=== PATIENT | male | born 1945 | race Caucasian/White ===

== ENCOUNTER 2023-01-20 12:01 | Outpatient (OUT) | payer MEDICARE, OTHER, SELFPAY ==
[2023-01-20 12:29] LABS: Hematocrit 40.7 % (42.0-54.0); Hemoglobin 13.1 g/dL (14.0-18.0); Mean Corpuscular HGB Conc 32.2 g/dL (29.9-35.2); Mean Corpuscular Hemoglobin 30.1 pg (25.9-34.0); Mean Corpuscular Volume 93.6 fL (80.0-94.0); Mean Platelet Volume 11.1 fL (9.5-13.5); Platelet Count 146 10^3/uL (150-450); Red Blood Count 4.35 10^6/uL (4.70-6.10); Red Cell Distribution Width 13.5 % (11.0-15.0); White Blood Count 4.4 10^3/uL (4.0-11.0)
[2023-01-20 13:06] LABS: Creatinine Urine Random 62.87 mg/dL (20.00-300.00); Protein Creatinine Ratio Urine 0.12; Total Protein Urine Random 7.7 mg/dL (<=11.9)
[2023-01-20 13:33] LABS: Alanine Aminotransferase 33 U/L (16-63); Albumin Globulin Ratio 1.1; Albumin Level 3.9 g/dL (3.4-5.0); Alkaline Phosphatase 86 U/L (46-116); Anion Gap 8.4; Aspartate Amino Transferase 20 U/L (15-37); BUN Creatinine Ratio 21.8; Bilirubin Total 0.5 mg/dL (0.2-1.0); Calcium 9.6 mg/dL (8.5-10.1); Carbon Dioxide 29.9 mmol/L (21.0-32.0); Chloride 103 mmol/L (98-107); Estimated GFR (African America >60 (>=60); Estimated GFR (Non-African Ame 57 (>=60); Globulin 3.7 g/dL; Glucose 166 mg/dL (74-106); Magnesium 2.2 mg/dL (1.8-2.4); Phosphorus 3.7 mg/dL (2.6-4.7); Potassium 4.3 mmol/L (3.5-5.1); Sodium 137 mmol/L (136-145); Total Protein 7.6 g/dL (6.4-8.2); Uric Acid 6.7 mg/dL (3.5-7.2)
[2023-01-20 13:34] LABS: Percent Iron Saturation 34.7 %
[2023-01-20 14:14] LABS: Bilirubin Urine NEGATIVE (NEGATIVE); Blood Urine NEGATIVE (NEGATIVE); Clarity Urine CLEAR (CLEAR); Color Urine YELLOW (YELLOW); Glucose Urine UA NEGATIVE (NEGATIVE); Ketones Urine NEGATIVE (NEGATIVE); Leukocyte Esterase Urine NEGATIVE (NEGATIVE); Nitrite Urine NEGATIVE (NEGATIVE); Protein Urine NEGATIVE (NEG/TRACE); Urobilinogen Urine 0.2 EU/dL (0.2-1.0); pH Urine 5.5 (5.0-9.0)
[2023-01-21 10:10] LABS: PTH, Intact 46 pg/mL (15-65)
== END 2023-01-20 12:02 | disposition home or self-care (01) ==
LOC: LAB 12:04
PROVIDERS: PCP Family Medicine; Visit Provider Internal Medicine Nephrology
DX: D64.9 Anemia, unspecified (principal); N18.31 Chronic kidney disease, stage 3a; N17.9 Acute kidney failure, unspecified
CPT/HCPCS: 36415; 80053; 81003; 82306; 82570; 82607; 82728; 82746; 83540; 83550; 83735; 83970; 84100; 84156; 84550; 85027

== ENCOUNTER 2023-02-27 13:50 | Outpatient (OUT) | payer MEDICARE, OTHER, SELFPAY ==
--- NOTE | 2023-02-27 14:32 | CA_ITS ---
Patient: IGNACIO REYNOLDS Exam Date: 02/27/2023 : 1945 Gender:M Ordering : RUTH URRUTIA MD Admission #: [id number] Family : DR ELLIOT ROSALES M.D. Order #: [id number] CLICK HERE TO VIEW EXAM ECHOCARDIOGRAM REPORT PROCEDURE: CA ECHO DOPPLER COMPLETE INDICATIONS: Atrial fibrillation, CABGx3, AICD, hypertension, former smoker COMPARISON: None. DESCRIPTION: COMPLETE ECHOCARDIOGRAM Real-time transthoracic echocardiography with 2D, M-mode, spectral and color flow Doppler performed. QUALITY: Technical quality was good. LEFT VENTRICLE: Normal chamber size. Moderate to severe concentric left ventricular hypertrophy. Ventricular septum is severely thickened (2.7cm). Systolic function appears normal. LV EF: Normal left ventricular ejection fraction, (55%). DIASTOLIC: Diastolic function is indeterminate. ATRIAL SEPTUM: Visually appears intact. LEFT ATRIUM: Moderate dilatation. RIGHT ATRIUM: Mild dilatation. RIGHT VENTRICLE: Normal chamber size. Systolic function appears normal. Pacer wire present. TRICUSPID VALVE: Normal mobility and thickness. No stenosis with mild to moderate regurgitation. No evidence of pulmonary hypertension. RVSP 26 mmHg MITRAL VALVE: Normal mobility and thickness. No evidence of mitral valve stenosis. Mild mitral annular calcification. Mild mitral regurgitation. AORTIC VALVE: Normal trileaflet appearance. No visible sclerosis. Normal leaflet mobility. No evidence of aortic valve stenosis. Mild aortic regurgitation. AORTIC ROOT: Normal diameter and appearance. PULMONIC VALVE: Normal thickness and mobility. No stenosis. Mild regurgitation. PERICARDIUM: No evidence of pericardial effusion. IVC: Collapses with inspirations. PLEURA: CONCLUSION: 1. The left ventricle exhibits moderate to severe concentric hypertrophy with severely thickened septum [2.7 cm]. Systolic function appears preserved with an ejection fraction of 55%. 2. The right ventricle is normal in size and systolic function. 3. Mild mitral aortic and pulmonic regurgitation. 4. Mild to moderate tricuspid regurgitation. 5. Normal right-sided pressures. 6. Cardiac phenotype is suggestive of possible infiltrative myocardial disease versus hypertrophic cardiomyopathy. Adult Echocardiography Procedure Report Left Ventricle LVEDD (3.7 - 5.6 cm): 4.19 cm LVESD (2.2 - 4.0 cm): 3.36 cm LVIVS thickness (0.6 - 1.2 cm): 2.66 cm LVPW thickness (0.5 - 1.0 cm): 1.31 cm e': 0.06 m/s E - e': 7.34 LVOT Max Gradient: 1.29 mm[Hg] LVOT Area (cm2): 0.57 m/s Peak Velocity (LVOT): 0.57 m/s LVOT Diameter 2.42 cm Left Atrium LA Volume Index (2D A2C): 46.49 ml/m2 Left Atrium Systolic Dimension: 4.50 cm Mitral Valve MV E to A Ratio: 0.61 Mitral Valve A-Wave Peak Velocity: 0.74 m/s Mitral Valve E-Wave Peak Velocity: 0.45 m/s Right Ventricle Aorta AO Root Diam: 3.91 cm Ascending Ao Diam: 3.19 cm Aortic Valve AoV Area (Peak Slava): 2.73 cm2, 2.73 cm2 Peak Velocity(Antegrade Flow): 0.95 m/s Peak Gradient(Antegrade Flow): 3.62 mm[Hg] Mean Velocity(Antegrade Flow): 0.60 m/s Mean Gradient(Antegrade Flow): 1.76 mm[Hg] Velocity Time Integral: 18.70 cm Tricuspid Valve Peak Velocity (Regurgitant Flow): 2.38 m/s, 1.84 m/s, 2.39 m/s Pulmonic Valve Mean Gradient: 2.26 mm[Hg] Mean Velocity: 0.71 m/s Peak Velocity: 1.02 m/s, 0.94 m/s Peak Gradient: 3.50 mm[Hg], 4.17 mm[Hg] Right Atrium Dictated by: Mykel Hood M.D. on 02/27/2023 at 17:55 Approved by: Mykel Hood M.D. on 02/27/2023 at 18:01
== END 2023-02-27 13:51 | disposition home or self-care (01) ==
LOC: CARD 13:50
PROVIDERS: PCP Family Medicine; Visit Provider Family Medicine
DX: I48.91 Unspecified atrial fibrillation (principal); I08.3 Combined rheumatic disorders of mitral, aortic and tricuspid valves
CPT/HCPCS: 93306

== ENCOUNTER 2023-04-15 08:34 | Outpatient (OUT) | payer MEDICARE, OTHER, SELFPAY ==
[2023-04-15 08:57] LABS: Hemoglobin 12.4 g/dL (14.0-18.0)
--- NOTE | 2023-04-15 09:42 | RT_ITS ---
The [facility] [place] Test Date: 2023-04-15 Pat Name: IGNACIO REYNOLDS Department: Room: - Gender: Male Blood Bank Laboratory Professional: Oscar Giraldo RRT : 1945 Requested By: [id number] Order Number: [id number] Reading MD: Yao Polanco Interpretive Statements Pulmonary function testing was completed according to ATS criteria. Findings were considered accurate and reproducible. Both pre- and post-bronchodilator values utilized for spirometry. Due to software limitations, no prior studies (if performed previously) are currently available for comparison. Spirometry (based on pre-bronchodilator values): -FEV1/FVC: Normal @ 75% -FEV1: Moderately reduced @ 66% -FVC: Moderately reduced @ 64% -There is no significant bronchodilator response. Lung volumes by plethysmography (based on pre-bronchodilator values): -RV: Reduced @ 79% -TLC: Moderately reduced @ 68% Diffusion capacity: -DLCO: Severe reduction @ 48% when corrected for Hb 12.4g/dL Flow-volume loop: -Moderate restrictive pattern Impressions: -Spirometry is non-diagnostic, though trends towards restriction - restriction is confirmed due to a moderately decreased TLC. There is a severely reduced diffusion capacity. This pattern can be seen in, but not restricted to, cardiopulmonary vascular disorders and interstitial lung disease. 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 Clinical correlation required. Electronically Signed On 04-16-2023 15:37:38 EDT by Yao Polanco
[2023-04-15] MEDS: ALBUTEROL SULFATE 2.5 MG/3 ML VIAL NEB IH (09:44)
[2023-04-15 09:59] LABS: Alanine Aminotransferase 22 U/L (16-63); Albumin Level 3.4 g/dL (3.4-5.0); Alkaline Phosphatase 94 U/L (46-116); Anion Gap 11.4; Aspartate Amino Transferase 16 U/L (15-37); BUN Creatinine Ratio 20.2; Bilirubin Total 0.4 mg/dL (0.2-1.0); Calcium 8.9 mg/dL (8.5-10.1); Carbon Dioxide 29.9 mmol/L (21.0-32.0); Chloride 108 mmol/L (98-107); Chol HDL Ratio 3.1; Cholesterol 133 mg/dL (<=200); Estimated GFR (African America >60 (>=60); Estimated GFR (Non-African Ame 57 (>=60); Globulin 3.5 g/dL; Glucose 152 mg/dL (74-106); HDL Cholesterol 43 mg/dL (40-60); Potassium 4.3 mmol/L (3.5-5.1); Sodium 145 mmol/L (136-145); Thyroid Stimulating Hormone 1.149 uIU/mL (0.358-3.740); Total Protein 6.9 g/dL (6.4-8.2); Triglycerides 171 mg/dL (<=150); VLDL CHOLESTEROL 34.2 mg/dL
--- NOTE | 2023-04-15 10:13 | XR_ITS ---
The [address] [address] Patient Name: IGNACIO REYNOLDS MRN: [id number] date: 1945 Sex: M Assigned Patient Location: CARD Current Patient Location: Accession/Order Number: [id number] Exam Date: 04/15/2023 10:20 Report Date: 04/16/2023 08:24 At the request of: RAINE DOLL Procedure: XR chest 2V EXAM: CHEST 2 VIEWS HISTORY: Bradder Use OF Amiodarone Z79.899 TECHNIQUE: PA and lateral views chest. COMPARISON: 05/22/2022. FINDINGS: No findings of pulmonary fibrosis. There is no focal lung consolidation, pleural effusion or pneumothorax. Pulmonary vasculature is within normal limits. There is mild cardiomegaly. Coronary artery bypass grafting changes and left pectoral cardiac pacemaker/defibrillator device noted. There are degenerative changes of the shoulders and spine. XR/XR chest 2V IMPRESSION: 1. No acute cardiopulmonary disease. 2. Stable cardiomegaly with coronary artery bypass grafting changes and cardiac pacemaker/defibrillator. Electronically authenticated by: AL BRAR Date: 04/16/2023 08:24
[2023-04-15 11:41] LABS: Free T4 1.06 ng/dL (0.76-1.46)
== END 2023-04-15 08:35 | disposition home or self-care (01) ==
LOC: CARD 08:35
PROVIDERS: PCP Family Medicine; Visit Provider Nurse Practitioner Acute Care
DX: Z79.899 Other long term (current) drug therapy (principal); I48.0 Paroxysmal atrial fibrillation; I25.10 Atherosclerotic heart disease of native coronary artery without angina pectoris; I51.7 Cardiomegaly; Z95.1 Presence of aortocoronary bypass graft; Z95.810 Presence of automatic (implantable) cardiac defibrillator
CPT/HCPCS: 36415; 71046; 80053; 80061; 84439; 84443; 85018; 94060; 94726; 94729

== ENCOUNTER 2023-04-17 08:00 | Outpatient (OUT) | payer MEDICARE, OTHER, SELFPAY ==
[2023-04-17] MEDS: COVID VAC 23-24(12UP)MODERNA/PF 50 MCG/0.5 ML VIAL IM (15:00)
== END 2023-04-17 08:01 | disposition home or self-care (01) ==
LOC: VACCLI 06-06 09:04
PROVIDERS: PCP Family Medicine; Visit Provider Family Medicine
DX: Z23 Encounter for immunization (principal)
CPT/HCPCS: 90480; 91322

== ENCOUNTER 2023-05-09 13:50 | Emergency (ER) | payer MEDICARE, OTHER, SELFPAY ==
[2023-05-09 13:54] VITALS: BP 131/78; PULSE 58; RESP 16; O2SAT 96; BMI 27.8
--- NOTE | 2023-05-09 14:01 | XR_ITS ---
The [place] [id number] Patient Name: IGNACIO REYNOLDS MRN: [id number] date: 1945 Sex: M Assigned Patient Location: ER Current Patient Location: ED.MAIN Accession/Order Number: [id number] Exam Date: 05/09/2023 14:06 Report Date: 05/09/2023 15:00 At the request of: ABIGAIL ROWAN Procedure: XR finger LT min 2V EXAM: XR finger LT min 2V TECHNIQUE: AP, lateral and oblique views left thumb HISTORY: Left thumb COMPARISON: None. FINDINGS: There is 3.5 mm deep traumatic defect of the tip of the tuft of the first distal phalanx. Overlying soft tissue injury. No radiopaque foreign body. XR/XR finger LT min 2V IMPRESSION: Traumatic defect to the central portion of the tip of the tuft of the first distal phalanx. Electronically authenticated by: KOREY VROA Date: 05/09/2023 15:00
--- NOTE | 2023-05-09 14:01 | ED.UPPEXIN1 ---
HPI - Extremity Injury (Upper) General Chief Complaint: Extremity Injury, Upper Stated Complaint: UPPER EXTREMITY INJURY LEFT THUMB Time Seen by Provider: 05/09/23 13:52 Source: patient Mode of arrival: walk-in History of Present Illness HPI narrative: patient is a 77-year-old male who presents to the emergency department for the evaluation of a laceration to the left thumb that occurred at home, patient states he accidentally cut himself with a table saw. He is on Eliquis and baby aspirin daily. Unknown last tetanus. He is right-hand dominant. No other associated injuries. No medications taken prior to arrival. Related Data Previous Rx's Medication Instructions Recorded cephalexin 500 mg capsule 500 mg PO Q8H 10 days #30 caps 05/09/23 hydrocodone 5 mg-acetaminophen 325 1 tab PO Q6H PRN pain #10 tabs 05/09/23 mg tablet Allergies Allergy/AdvReac Type Severity Reaction Status Date / Time Influenza Virus Vaccines Allergy Severe Verified 05/09/23 14:00 Review of Systems ROS Constitutional Denies: fever or chills Ears, nose, mouth, and throat Denies: throat pain Cardiovascular Denies: chest pain Respiratory Denies: shortness of breath or cough Gastrointestinal Denies: nausea or vomiting Musculoskeletal Reports: extremity pain; Denies: back pain, neck pain or extremity swelling Integumentary/Breast Denies: rash Hematologic/Lymphatic Reports: easy bruising and easy bleeding Exam Narrative Exam Narrative: Gen.: Awake, alert, in no distress Head: Normocephalic, atraumatic ENT: Moist mucous membranes Respiratory: No respiratory distress Extremities: 2 cm laceration to the fat pad of the distal phalanx at the distal tip of the finger, laceration is well aligned, no active bleeding. Normal flexion and extension at the IP joint of the left thumb. Small laceration to the distal tip of the fingernail that does not extend through the proximal nail or cuticle Psych: Normal mood and affect Neuro: No focal neuro deficit Skin: Warm, dry Constitutional Vital Signs, click to edit/add: Last Vital Signs Pulse 58 L 05/09/23 13:54 Resp 16 05/09/23 13:54 BP 131/78 05/09/23 13:54 Pulse Ox 96 05/09/23 13:54 O2 Del Method Room Air 05/09/23 13:54 Course Vital Signs Vital signs: Vital Signs Pulse Rate 58 L 05/09/23 13:54 Respiratory Rate 16 05/09/23 13:54 Blood Pressure 131/78 05/09/23 13:54 Pulse Oximetry 96 05/09/23 13:54 Oxygen Delivery Method Room Air 05/09/23 13:54 Pulse Rate 58 L 05/09/23 13:54 Respiratory Rate 16 05/09/23 13:54 Blood Pressure 131/78 05/09/23 13:54 Pulse Oximetry 96 05/09/23 13:54 Oxygen Delivery Method Room Air 05/09/23 13:54 MDM - Extremity Injury (Upper) MDM Narrative Medical decision making narrative: x-rays of the finger show that the patient did break the cortex of the distal phalanx with a table saw although there is no large fracture or displacement of the bones. Laceration was repaired without difficulty. Please see procedure note for details. Sutures removed in 8-10 days with PCP. Patient is neurovascularly intact at discharge. As there is bone involvement, patient will be placed on antibiotics for the next ten days. Return to the Emergency Room if symptoms change or worsen. Laceration repair: Done under sterile conditions. The use of Shur-Clens prep the area. digital block with lidocaine 1% was used, approximately 5 cc. The wound was irrigated copiously with normal saline. The wound was explored there was no evidence of foreign material. The laceration was approximated with 4-0 nylon. 3 simple interrupted sutures were placed. Patient tolerated the procedure well. The patient was neurovascularly intact post. the patient had bacitracin applied to the laceration and a dry sterile dressing was place. The patient will need to follow-up in the next 8-10 days for removal Medical Records Attestation: I reviewed the patient's medical records. Lab Data Attestation: I reviewed the patient's lab results. Imaging Data XR finger: Attestation: I personally reviewed and interpreted this imaging study as follows: My impression: fracture of the distal cortex, no displacement with normal alignment Discharge Plan Discharge Chief Complaint: Extremity Injury, Upper Clinical Impression: Open fracture of distal phalanx of left thumb, Laceration of left thumb Patient Disposition: Home, Self-Care Time of Disposition Decision: 14:44 Condition: Good Prescriptions / Home Meds: New hydrocodone-acetaminophen 5-325 mg tablet 1 tab PO Q6H PRN (Reason: pain) Qty: 10 0RF Rx Instructions: DX: M79.645 cephalexin 500 mg capsule 500 mg PO Q8H 10 Days Qty: 30 0RF Instructions: Finger Fracture (ED), Finger Laceration (ED) Additional Instructions: Sutures removed in 8-[address] Peters Stand Alone Forms: Portal Instructions Referrals: Karina Peters MD [Primary Care Provider] - 1 week Discharge Date/Time: 05/09/23 15:05
[2023-05-09] MEDS: LIDOCAINE HCL 1% 100 MG/10 ML MDV INJ (14:53)
[2023-05-09] MEDS: BACITRACIN 0.9 GM PACKET 1 PACKET TOPICAL (14:53)
[2023-05-09] MEDS: ADACEL DIPH,PERTUSS(ACELL),TET VAC/PF 0.5 ML ADULT SYRINGE IM (14:54)
== END 2023-05-09 15:05 | disposition home or self-care (01) ==
PROVIDERS: Emergency Provider Emergency Medicine; PCP Family Medicine
DX: S62.522B Displaced fracture of distal phalanx of left thumb, initial encounter for open fracture (principal); Z23 Encounter for immunization; W27.0XXA Contact with workbench tool, initial encounter
CPT/HCPCS: 12001; 73140; 90471; 90715; 99284

== ENCOUNTER 2023-07-07 14:36 | Outpatient (OUT) | payer MEDICARE, OTHER, SELFPAY ==
--- OUTSIDE RECORDS SUMMARY | 2023-07-07 14:41 | XMS_ITS | CCD ---
Author Name Unknown Address [address] [place] [address] Organization [facility] Care Team Providers Care Oxyhydrogen Welder Name Role Phone ELLIOT ROSALES Primary Care Physician [phone] Elliot Rosales MD Primary Care Provider Christiane Olson Attending Unavailable UNKNOWN, PROVIDER Admitting Unavailable ELLIOT ROSALES Referring Unavailable ELLIOT ROSALES Primary Care Unavailable Jenifer Jensen Unavailable Elliot Rosales Unavailable DR ELLIOT ROSALES Primary Care Unavailable ELTAHAWY, EHAB Admitting Unavailable ELTAHAWY, EHAB Attending Unavailable ELTAHAWY, EHAB Consulting Unavailable DR ELLIOT ROSALES Consulting Unavailable DR ELLIOT ROSALES Primary Care Unavailable ELTAHAWY, EHAB Admitting Unavailable ELTAHAWY, EHAB Attending Unavailable ELTAHAWY, EHAB Consulting Unavailable DR ELLIOT ROSALES Primary Care Unavailable MISC, DR BROWN Attending Unavailable MISC, DR BROWN Consulting Unavailable MISC, DR BROWN Admitting Unavailable IGNACIO JACKSON Unavailable RUDY, PHYLLIS Attending Unavailable RUDYZHANGPHYLLIS Consulting Unavailable RUDY, PHYLLIS Admitting Unavailable DR ELLIOT ROSALES Primary Care Unavailable DR ELLIOT ROSALES Primary Care Unavailable ELTAHAWY, EHAB Attending Unavailable ELTAHAWY, EHAB Consulting Unavailable ELTAHAWY, EHAB Admitting Unavailable DR MAGALIS CHA Consulting Unavailable DR ELLIOT ROSALES Primary Care Unavailable ELTAHAWY, EHAB Admitting Unavailable ELTAHAWY, EHAB Attending Unavailable ELTAHAWY, EHAB Consulting Unavailable DR ELLIOT ROSALES Primary Care Unavailable ELTAHAWY, EHAB Admitting Unavailable ELTAHAWY, EHAB Attending Unavailable ELTAHAWY, EHAB Consulting Unavailable DR ELLIOT ROSALES Primary Care Unavailable BAKHOUS, AZIZ Attending Unavailable BAKHOUS, AZIZ Consulting Unavailable BAKPAMS, AZIZ Admitting Unavailable DR ELLIOT ROSALES Primary Care Unavailable YANIRA, DR CRISTIANO Husain Attending Unavailable YANIRA, DR CRISTIANO Husain Consulting Unavailable DR CRISTIANO DOYLE Admitting Unavailable DR ELLIOT ROSALES Primary Care Unavailable ELTAHAWY, EHAB Admitting Unavailable ELTAHAWY, EHAB Attending Unavailable ELTAHAWY, EHAB Consulting Unavailable Elliot Rosales MD Primary Care Provider [phone] Ema DOYLE Referring Unavailable Ema DOYLE Attending Unavailable ELLIOT ROSALES Primary Care Unavailable MD Yung Yang Attending Provider MD Elliot Rosales Primary Care Provider [phone] Elliot Rosales Primary Care Unavailable Asaad, Imad Attending Unavailable Asaad, Imad Admitting Unavailable Lue, Patience MTj Attending Unavailable Lue, Patience MTj Attending Unavailable Lue Patience MTj Attending Unavailable Lue, Patience M. Referring Unavailable Lue, Patience M. Attending Unavailable Lue, Patience M. Admitting Unavailable Lue, Patience M. Referring Unavailable Lue, Patience M. Attending Unavailable ANTOINETTE KEYS Attending Unavailable RUTH URRUTIA Referring Unavailable RUTH URRUTIA Attending Unavailable ELTAHAWY, EHAB Attending Unavailable PHYLLIS GRANT Attending Unavailable RUTH URRUTIA Referring Unavailable Allergies Allergy Classification Reported Allergen(s) Allergy Type Date of Onset Reaction(s) Facility (9 sources) flu vaccines; Translations: [flu vaccines] Allergy to substance 03-25-20 13 Unknown [facility] (4 sources) Influenza Virus Vaccine Tv Split 2011-05 (60 Yr +); Translations: [INFLUENZA VIRUS VACCINE TV SPLIT 2011-05 (60 YR +)] Drug Intolerance 10-05-19 15 Intolerance [facility] (1 source) flu virus vaccine tv 2014- (18 yr and up),recomb Drug allergy (disorder) 04-11-20 16 [facility] (7 sources) Influenza Vac A&B Surf Ant Adj Drug allergy rash, vomiting [facility] Other (1 source) Flu Vaccine tvs 2010-(65yr+) Drug allergy (disorder) 03-26-20 13 [facility] (1 source) Influenza Virus Vaccines Drug allergy (disorder) 12-14-19 [facility]ository (1 source) No Known Medication Allergies; Translations: [No Known Medication Allergies] Propensity to adverse reactions (disorder) [facility] Repository Medications Current Medications Medication Drug Class(es) Dates Sig (Normalized) Sig (Original) acetaminophen 500 mg oral tablet (15 sources) Start: 12-13-2022 take 500 mg by mouth every six hours Acetaminophen Active 500 MG PO Q6H December 13, 2022 12:00am Start: 03-14-2021 take 1 mg by mouth e very six hours Tylenol Extra Strength 500 mg oral tablet mg tab(s), Oral, q6hr, Refills(s) 0 Start Date: 03/14/21 Status: Ordered take 2 tablets by mo uth every eight hours Acetaminophen ER 650 MG 2 tablets as needed Orally every 8 hrs Active take 2 tablets by mo uth every eight hours as needed Acetaminophen ER 650 MG 2 tablets as needed Orally every 8 hrs Active take 2 tablets by mo uth every six hours as needed acetaminophen (TYLENOL) 325 mg tablet Take 650 mg by mouth every 6 hours as needed. 0 Active Comment on above: Take 650 mg by mouth every 6 hours as needed. Antiox.Mv [id number] a (I-Caps) 280-10-2 mg Capsule (1 source) Start: 12-13-2022 take 1 capsule by mouth once daily Antiox.Mv [id number] Libby (I-Caps) 280-10-2 mg Capsule Active 1 CAP PO Daily December 13, 2022 12:00am apixaban 5 mg oral tablet (13 sources) Factor Xa Inhibitor Start: 06-05-2022 take 1 mg by mouth twice daily Eliquis 5 mg oral tablet mg tab(s), Oral, BID, Refills(s) 0 Start Date: 06/05/22 Status: Ordered take 1 tablet by mouth every twe lve hours Eliquis 2.5 MG 1 tablet Orally Twice a day Active Comment on above: Take by mouth twice daily. aspirin 81 mg delayed release oral tablet (19 sources) Platelet Aggregation Inhibitor, Nonsteroidal Anti-inflammatory Drug Start: 12-13-2022 take 1 tablet by mouth once daily Aspirin (Aspir-81) 81 mg Tablet,Delayed Release (Dr/Ec) Active 81 MG PO Daily December 13, 2022 12:00am Start: 03-14-2021 take 1 mg by mouth e very four hours aspirin 81 mg oral capsule mg cap(s), Oral, q4hr, Refills(s) 0 Start Date: 03/14/21 Status: Ordered Comment on above: Take 81 mg by mouth once daily. atorvastatin 80 mg oral tablet (19 sources) HMG-CoA Reductase Inhibitor Start: 03-14-20 take 1 mg by mouth once daily Lipitor 80 mg Tab mg tab(s), Oral, Daily, Refills(s) 0 Start Date: 03/14/21 Status: Ordered Comment on above: Take 80 mg by mouth once daily. atropine sulfate 0.025 mg / diphenoxylate hydrochloride 2.5 mg oral tablet (8 sources) Anticholinergic, Cholinergic Muscarinic Antagonist, Antidiarrheal Start: 08-28-19 take 1 tablet by mouth every six hours Lomotil 2.5-0.025 MG 1 tablet as needed Orally Four times a day for 10 days Aug, Active Comment on above: Take 1 tablet by andrey four times daily as needed. Centrum Silver (8 sources) Start: 03-14-20 Centrum Silver Oral, Daily, Refill(s) 0 Start Date: 03/14/21 Status: Ordered cephalexin 500 mg oral capsule (3 sources) Cephalosporin Antibacterial Start: 09-20-19 take 1 capsule by mouth once daily Keflex 500 mg Cap 500 mg = 1 cap(s), Oral, Daily, Start 1 day prior to procedure, # 2 cap(s), Refills(s) 0, Pharmacy: [id number], 180, cm, 09/19/21 9:42:00 EDT, Height/Length Dosing, 86, kg, 09/19/21 9:42:00 EDT, Weight Dosing Start Date: 09/19/21 Status: Ordered diazePAM 10 mg oral tablet (1 source) Benzodiazepine Start: 02-13-20 Valium 10 mg Tab 10 mg = 1 tab(s), Oral, Once, PRN for anxiety, take 1 hour prior to scheduled procedure, # 1 tab(s), Refills(s) 0, Pharmacy: [id number], 180, cm, 12/04/22 9:13:00 EDT, Height/Length Dosing, 88, kg, 12/04/22 9:13:00 EDT, Weight Dosing Start Date: 02/12/23 Status: Ordered furosemide 20 mg oral tablet (19 sources) Loop Diuretic Start: 06-05-20 take 1 mg by mouth once daily furosemide 20 mg Tab mg tab(s), Oral, Daily, Refills(s) 0 Start Date: 06/05/22 Status: Ordered take 10 mg by mouth once daily f urosemide (LASIX) 20 mg tablet Take 10 mg by mouth once daily. 0 Active take 1 tablet by andrey th every twenty-four hours Furosemide 40 MG 1 tablet Orally Once a day Active Comment on above: Take 10 mg by mouth once daily. ICaps Areds 2 (8 sources) ICaps Areds 2 Active ICaps with Lutein and Zeaxan oral tablet (4 sources) Start: 03-14-2021 ICaps with Lutein and Zeaxan oral tablet Oral, Daily, Refill(s) 0 Start Date: 03/14/21 Status: Ordered melatonin 10 mg oral tablet (10 sources) Start: 12-13-2022 take 10 mg by mouth at bedtime Melatonin Active 10 MG PO Bedtime December 13, 2022 12:00am take 2 capsules by m outh every twenty-four hours Melatonin 10 MG 2 tablets Orally Once a day Active take 2 tablets by mouth once stalin ly Melatonin 10 MG 2 tablets Orally Once a day Active melatonin 10 mg tab Take by mouth daily at bedtime. 0 Active take 2 tablets by mouth once stalin ly Melatonin 5 MG 2 tablets Orally Once a day Active Comment on above: Take by mouth daily at bedtime. 24 hr metoprolol succinate 50 mg extended release oral tablet (19 sources) beta-Adrenergic Ash Start: 03-14-2021 take 1 mg by mouth once daily Toprol XL 50 mg Tab-ER mg tab(s), Oral, Daily, Refills(s) 0 Start Date: 03/14/21 Status: Ordered Comment on above: Take 50 mg by mouth once daily. 24 hr mirabegron 25 mg extended release oral tablet (17 sources) beta3-Adrenergic Agonist Start: 09-19-2021 End: 07-03-2023 take 1 tablet by mouth once daily Myrbetriq 25 mg oral tablet, extended release 25 mg = 1 tab(s), Oral, Daily, X 90 day(s), # 90 tab(s), Refills(s) 3, Pharmacy: [id number], 180, cm, 06/05/22 9:31:00 EST, Height/Length Dosing, 87, kg, 06/05/22 9:31:00 EST, Weight Dosing Start Date: 07/08/22 Stop Date: 07/03/23 Status: Ordered Comment on above: Take 25 mg by mouth once daily. Multivitamin preparation (8 sources) take 1 tablet by mouth once daily Multi Vitamin - 1 tablet Orally Once a day Active Multivitamin-Minerals- Lutein (Centrum Silver) Tablet (1 source) Start: 12-13-2022 take 1 tablet by mouth once daily Multivitamin-[place] als-Lutein (Centrum Silver) Tablet Active 1 TAB PO Daily December 13, 2022 12:00am potassium chloride 10 meq extended release oral capsule (9 sources) take 1 capsule by mouth every twenty-four hours Potassium Chloride ER 10 MEQ 1 tablet with food Orally Once a day Active potassium chlori de SR (MICRO-K) 10 mEq CR capsule Take 10 mEq by mouth twice daily. 0 Active take 1 tablet by andrey th every twenty-four hours Potassium Chloride ER 20 MEQ 1 tablet wi th food Orally Once a day Active Comment on above: Take 10 mEq by mouth twice daily. Slow Release Iron 160 (50 Fe) MG (2 sources) take 1 tablet by mouth once daily Slow Release Iron 160 (50 Fe) MG 1 tablet Orally Once a day Active tamsulosin hydrochloride 0.4 mg oral capsule (19 sources) alpha-Adrenergic Ash Start: 04-16-2023 take 1 capsule by mouth once daily Flomax 0.4 mg Cap 0.4 mg = 1 cap(s), Oral, Daily, # 90 cap(s), Refills(s) 3, Pharmacy: [id number], 180, cm, 04/16/23 9:44:00 EDT, Height/Length Dosing, 88, kg, 04/16/23 9:44:00 EDT, Weight Dosing Start Date: 04/16/23 Status: Ordered Start: 03-14-2021 take 0.4 mg by mouth once aviva y Tamsulosin Active 0.4 MG PO Daily December 13, 2022 12:00am Comment on above: Take 0.4 mg by mouth once daily. Turmeric extract (5 sources) Start: 03-14-2021 take 1 mg by mouth once daily Turmeric mg, Oral, Daily, Refill(s) 0 Start Date: 03/14/21 Status: Ordered Urinozinc Prostate Health Complex Classic (8 sources) Start: 03-14-2021 Urinozinc Prostate Health Complex Classic Oral, Daily, Refill(s) 0 Start Date: 03/14/21 Status: Ordered Completed/Discontinued Medications Medication Drug Class(es) Dates Sig (Normalized) Sig (Original) amiodarone hydrochloride 200 mg oral tablet (6 sources) Antiarrhythmic take 0.5 tablet by mouth once daily Amiodarone HCl 200 MG 1/2 tablet Orally Once a day Not-Taking MULTIVITAMIN ORAL (2 sources) MULTIVITAMIN ORA L Take by mouth. 0 Active Comment on above: Take by mouth. pantoprazole 20 mg delayed release oral tablet (6 sources) Proton Pump Inhibitor take 1 tablet by mouth every twenty-four hours Pantoprazole Sodium 20 MG 1 tablet Orally Once a day Not-Taking VIT C/VIT E/LUTEIN/MIN/OMEGA-3 (OCUVITE ORAL) (2 sources) VIT C/VIT E/LUTEIN/MIN/OMEGA- 3 (OCUVITE ORAL) Take by mouth. 0 Active Comment on above: Take by mouth. Problems Active Problems Problem Classification Problem Date Documented Da te Episodic/Chronic Acute and unspecified renal failure (8 sources) Acute kidney failure, unspecified; Translations: [ACUTE KIDNEY FAILURE UNSPECIFIED] Onset: 05-02-2022 Episodic Acute myocardial infarction (13 sources) Myocardial infarction 03-14-2021 Chronic Cancer of prostate (8 sources) Malignant tumor of prostate 03-14-2021 Chronic Cancer of prostate (20 sources) Personal history of malignant neoplasm of prostate; Translations: [History of malignant neoplasm of prostate] Onset: 10-04-2015 Episodic Cardiac dysrhythmias (4 sources) Paroxysmal atrial fibrillation; Translations: [PAROXYSMAL ATRIAL FIBRILLATION] Onset: 05-22-2022 Chronic Chronic kidney disease (7 sources) Chronic kidney disease stage 3A ; Translations: [Chronic kidney disease, stage 3a] Chronic Conduction disorders (4 sources) Encounter for adjustment and management of automatic implantable cardiac defibrillator; Translations: [Presence of automatic (implantable) cardiac defibrillator] Onset: 12-20-2022 Chronic Coronary atherosclerosis and other heart disease (12 sources) Atherosclerotic heart disease of [place] coronary artery without angina pectoris; Translations: [Coronary atherosclerosis due to lipid rich plaque] Onset: 03-04-2022 Chronic Coronary atherosclerosis and other heart disease (2 sources) Presence of aortocoronary bypass graft Episodic Deficiency and other anemia (8 sources) Anemia 03-14-2021 Episodic Deficiency and other anemia (2 sources) Anemia, unspecified Episodic Disorders of lipid metabolism (2 sources) Mixed hyperlipidemia; Translations: [Mixed hyperlipidemia] Onset: 03-04-2022 Chronic Essential hypertension (2 sources) Essential (primary) hypertension; Translations: [Essential (primary) hypertension] Onset: 03-04-2022 Chronic Gastroduodenal ulcer (except hemorrhage) (5 sources) Chronic duodenal ulcer Onset: 08-07-2010 12-03-2021 Chronic Genitourinary symptoms and ill-defined conditions (19 sources) Microscopic hematuria; Translations: [Other microscopic hematuria] Onset: 09-19-2021 Episodic Hyperplasia of prostate (15 sources) Benign prostatic hypertrophy with outflow obstruction; Translations: [Benign prostatic hyperplasia with lower urinary tract symptoms] Onset: 09-19-2021 Chronic Hypertension with complications and secondary hypertension (4 sources) Hypertensive heart disease without heart failure; Translations: [HTN HEART DISEASE W/O HEART FAIL] Onset: 06-18-2022 Chronic Other aftercare (4 sources) Long-term current use of anticoagulant; Translations: [senior living (current) use of anticoagulants] Onset: 06-05-2022 Episodic Other aftercare (1 source) Encounter for removal of sutures Episodic Other and ill-defined heart disease (8 sources) Heart disease 03-14-2021 Chronic Other diseases of bladder and urethra (2 sources) Detrusor overactivity; Translations: [Overactive bladder] Onset: 12-04-2022 Chronic Other diseases of bladder and urethra (3 sources) Overactive bladder 12-04-2022 Chronic Other diseases of kidney and ureters (2 sources) Urinary tract obstruction; Translations: [Other obstructive and reflux uropathy] Onset: 10-01-2021 Episodic Other gastrointestinal disorders (2 sources) Diarrhea, unspecified Episodic Other gastrointestinal disorders (1 source) Functional diarrhea Episodic Other male genital disorders (1 source) Erectile dysfunction following radiation therapy; Translations: [Erectile dysfunction due to and following radiation therapy] Onset: 09-19-2021 Chronic Other male genital disorders (8 sources) Impotence 03-14-2021 Chronic Other screening for suspected conditions (not mental disorders or infectious disease) (3 sources) Abnormal result of other cardiovascular function study; Translations: [Encounter for screening for malignant neoplasm of colon] Onset: 02-15-2022 Episodic Honey-; endo-; and myocarditis; cardiomyopathy (except that caused by tuberculosis or sexually transmitted disease) (2 sources) Obstructive hypertrophic cardiomyopathy; Translations: [Obstructive hypertrophic cardiomyopathy] Onset: 02-18-2023 Chronic Substance-related disorders (8 sources) Smoker 03-14-2021 Chronic Comment on above: Added secondary to d ocumentation in Social History. Unclassified (4 sources) Drug therapy finding 06-05-2022 Unclassified (1 source) CONTACT W/AND (SUSP) EXPOS COVID-19; Translations: [CONTACT W/AND (SUSP) EXPOS COVID-19] Onset: 02-15-2022 Unclassified (1 source) Encounter for screening for malignant neoplasm of colon; Translations: [Encounter for screening for malignant neoplasm of colon] Onset: 12-13-2022 Past or Other Problems Problem Classification Problem Date Documented Da te Episodic/Chronic Chronic kidney disease (3 sources) Chronic kidney disease Nonspecific chest pain (4 sources) Chest pain, unspecified; Translations: [CHEST PAIN UNSPECIFIED] Onset: 02-07-2022 Episodic Other aftercare (1 source) Other terminal gauger (current) drug therapy; Translations: [OTH JEEP DRIVER CURRENT DRUG THERAPY] Onset: 05-25-2022 Episodic Other lower respiratory disease (4 sources) Shortness of breath; Translations: [SHORTNESS OF BREATH] Onset: 06-03-2022 Episodic Other lower respiratory disease (2 sources) Other forms of dyspnea; Translations: [Other forms of dyspnea] Onset: 03-04-2022 Episodic Screening and history of mental health and substance abuse codes (2 sources) Personal history of nicotine dependence; Translations: [Personal history of nicotine dependence] Onset: 12-20-2022 Episodic Results Test Name Value Interpretation Reference Range Facility Office Visiton 05-12-2023 Follow-up visit [id number] Hans Amin 1945 M Date Provider Department Center 05/12/2023 Negro6-ANTOINETTE KEYS LISHA Gan Family History Problem Relation Age of Onset Diabetes Mother Coronary artery disease Father Other Sister Family Status - Relation Status Age at Mother Father Sister Level of Service:25717 [place] OFFICE/OUTPATIENT ESTABLISHED MOD MDM 30-39 MIN Normal [facility] Screenson 04-17-2023 Screens [id number] 00 [id number] Normal [facility] Screens [id number] TIFF Normal [facility] Ambulatory Visit Summaryon 1 Ambulatory Visit Summary BRENNAN IGNACIO Sarita :1945 Visit Date:04/16/2023 Ambulatory Visit Instructions Your Diagnosis BPH with urinary obstruction Personal history of prostate cancer OAB (overactive bladder) Anticoagulated Tests Performed Urnls Dip Stick Auto w/o Microscopy POC [id number] Your Care Team Attending Physician - Tomy DUNN, Patience Salinas Primary Care Physician - ELLIOT ROSALES MD Referring Physician - Patience Huitron MD This Is Your Medications List tamsulosin (Flomax 0.4 mg Cap) Contact prescribing physician if questions or concerns apixaban (Eliquis 5 mg oral tablet) aspirin (aspirin 81 mg oral capsule) atorvastatin (Lipitor 80 mg Tab) furosemide (furosemide 20 mg Tab) metoprolol (Toprol XL 50 mg Tab-ER) multivitamin with minerals (Centrum Silver) multivitamin with minerals (Urinozinc Prostate Health Complex Classic) [Image Removed: STOP]Stop taking these medications mirabegron (Myrbetriq 25 mg oral tablet, extended release) Procedures Performed Transurethral insertion of prostatic urethral lift implant (03/03/2023), Open heart surgery (01/21/2022), Cystoscopy (10/01/2021), Brachytherapy (2011), Cataract, Cataract, Colonoscopy. Discharge Vitals Heart Rate (Peripheral) 68 Respiratory Rate 16 Blood Pressure 134/79 Height 180 cm Height 71 in Weight 88 kg Weight 193.6 lb BMI 27.16 What to do next Scheduled Follow-Up Appointments Friday 9:45 AM EST With: Patience Huitron MD Where: [facility] [place] Normal [facility] Patient Educationon 04-16-20 23 Patient Education Urology Benign Prostatic Hyperplasia Benign prostatic hyperplasia (BPH) is an enlarged prostate gland that is caused by the normal aging process. The prostate may get bigger as a man gets older. The condition is not caused by cancer. The prostate is a walnut-sized gland that is involved in the production of semen. It is located in front of the rectum and below the bladder. The bladder stores urine. The urethra carries stored urine out of the body. An enlarged prostate can press on the urethra. This can make it harder to pass urine. The buildup of urine in the bladder can cause infection. Back pressure and infection may progress to bladder damage and kidney (renal) failure. What are the causes? This condition is part of the normal aging process. However, not all men develop problems from this condition. If the prostate enlarges away from the urethra, urine flow will not be blocked. If it enlarges toward the urethra and compresses it, there will be problems passing urine. What increases the risk? This condition is more likely to develop in men older than 50 years. What are the signs or symptoms? Symptoms of this condition include: ? Getting up often during the night to urinate. ? Needing to urinate frequently during the day. ? Difficulty starting urine flow. ? Decrease in size and strength of your urine stream. ? Leaking (dribbling) after urinating. ? Inability to pass urine. This needs immediate treatment. ? Inability to completely empty your bladder. ? Pain when you pass urine. This is more common if there is also an infection. ? Urinary tract infection (UTI). How is this diagnosed? This condition is diagnosed based on your medical history, a physical exam, and your symptoms. Tests will also be done, such as: ? A post-void bladder scan. This measures any amount of urine that may remain in your bladder after you finish urinating. ? A digital rectal exam. In a rectal exam, your health care provider checks your prostate by putting a lubricated, gloved finger into your rectum to feel the back of your prostate gland. This exam detects the size of your gland and any abnormal lumps or growths. ? An exam of your urine (urinalysis). ? A prostate specific antigen (PSA) screening. This is a blood test used to screen for prostate cancer. ? An ultrasound. This test uses sound waves to electronically produce a picture of your prostate gland. Your health care provider may refer you to a specialist in kidney and prostate diseases (urologist). How is this treated? Once symptoms begin, your health care provider will monitor your condition (active surveillance or watchful waiting). Treatment for this condition will depend on the severity of your condition. Treatment may include: ? Observation and yearly exams. This may be the only treatment needed if your condition and symptoms are mild. ? Medicines to relieve your symptoms, including: ? Medicines to shrink the prostate. ? Medicines to relax the muscle of the prostate. ? Surgery in severe cases. Surgery may include: ? Prostatectomy. In this procedure, the prostate tissue is removed completely through an open incision or with a laparoscope or robotics. ? Transurethral resection of the prostate (TURP). In this procedure, a tool is inserted through the opening at the tip of the penis (urethra). It is used to cut away tissue of the inner core of the prostate. The pieces are removed through the same opening of the penis. This removes the blockage. ? Transurethral incision (TUIP). In this procedure, small cuts are made in the prostate. This lessens the prostate's pressure on the urethra. ? Transurethral microwave thermotherapy (TUMT). This procedure uses microwaves to create heat. The heat destroys and removes a small amount of prostate tissue. ? Transurethral needle ablation (TUNA). This procedure uses radio frequencies to destroy and remove a small amount of prostate tissue. ? Interstitial laser coagulation (ILC). This procedure uses a laser to destroy and remove a small amount of prostate tissue. ? Transurethral electrovaporization (TUVP). This procedure uses electrodes to destroy and remove a small amount of prostate tissue. ? Prostatic urethral lift. This procedure inserts an implant to push the lobes of the prostate away from the urethra. Follow these instructions at home: ? Take spcq-wyz-[id number] and prescription medicines only as told by your health care provider. ? Monitor your symptoms for any changes. Contact your health care provider with any changes. ? Avoid drinking large amounts of liquid before going to bed or out in public. ? Avoid or reduce how much caffeine or alcohol you drink. ? Give yourself time when you urinate. ? Keep all follow-up visits. This is important. Contact a health care provider if: ? You have unexplained back pain. ? Your symptoms do not get better with treatment. ? You develop side effects from the medicine (more content not included)... [facility] Urology Office/Clinic Noteon 04-16-2023 Urology Office/Clinic Note Chief Complaint S/P Urolift HPI Staff S/P UroLift 03/03/23 Previous DX:BPH, Personal Hx of Prostate Cancer & OAB. S/P Brachytherapy 2011 Tamsulosin 0.4mg QD and Myrbetriq 25mg ER.... pt was told to take both scripts until today's appt. to discuss. However, pt ran out of pills for both scripts, states he came in to our office, and was told to just go ahead & stop taking scripts at that time vs renewing the script. Previous IPSS 8. Current IPSS 9 Does not see any changes since procedure. Still having weak stream. Denies pain/burning and visible blood in urine. PVR 48ml History of Present Illness Tests reviewed: reviewed UA I have reviewed the previous health record information and history for this patient from . I have reviewed and verified the staff HPI to be accurate for this encounter. There have been no associated fever, chills, flank pain, or blood in the urine. Denies any urinary infections since last encounter. Review of Systems ROS - Provider Constitutional: denies weight loss, denies hot flashes. Eyes: denies eye problems. Gastrointestinal: denies nausea, denies vomiting. Cardiovascular: denies chest pain or angina. Integumentary: no dryness Musculoskeletal: denies musculoskeletal symptoms. ENMT: denies otolaryngeal symptoms. Respiratory: no shortness of breath. Heme/Lymph: denies easy bleeding tendency, denies easy bruising tendency. Psychiatric: no confusion, no anxiety. Genitourinary: See HPI. Physical Exam Vitals & Measurements HR: 68(Peripheral) RR: 16 BP: 134/79 HT: 71 in HT: 180 cm WT: 88 kg WT: 193.6 lb BMI: 27.16 General Appearance: alert, no distress, well nourished, well developed male. Assessment/Plan 77 yo M here for follow up of radiation and BPH with LUTS s/p Urolift. JOSHUA 1(1) 1. BPH with urinary obstruction (N40.1: Benign prostatic hyperplasia with lower urinary tract symptoms) Cysto 10/01/21 - Mild-moderate lateral lobe hypertrophy with moderate median lobe enlargement with small intravesical median lobe towards pt's left bladder neck. Not ball valve effect. Short prostate. High bladder neck. No trabeculation. S/p UroLift 03/03/23 - 5 implants UA today negative for blood and infection. IPSS 9(8). Tamsulosin 0.4mg QD and Myrbetriq 25mg ER. Ran out, off of both rx. Did not see any changes since procedure, however upon further questioning, pt is having a stronger stream than prior and PVR has improved by 100 ml. Advised pt that he is emptying better. Still having weak stream, stronger than what it was before the surgery. Denies pain/burning and visible blood in urine. PVR 48ml Pt states that he may have felt an improvement in sxs when he started taking the Tamsulosin. Advised pt that he could wait to see if his sxs get better over time vs starting meds. Discussed starting the Tamsulosin again and see if this makes a difference in his sxs. Pt states that he can start this again. Discussed limitations of improvement given hx EBRT Follow up in 3 mos. All questions/concerns were discussed. Pt to call the office if he encounters any issues prior. Pt acknowledges understanding. -Cont timed voids, avoid bladder irritants -Start Tamsulosin 0.4mg QD again. -Consider cysto after 3 mths if no improvement 2. Personal history of prostate cancer (Z85.46: Personal history of malignant neoplasm of prostate) S/P Brachytherapy 2011. Dr. Doyle, pt was cleared to follow with him on a PRN basis. Understandable given age and co-morbidities. 3. OAB (overactive bladder) (N32.81: Overactive bladder) No longer taking Myrbetriq 25 mg ER qd and is still taking lasix. PVR 48 cc. Asx, no UTIs -Timed voids -Re-eval after tamsulosin 4. 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 Elevated periop risk. -Cardiac clearance/AC I spent 30 minutes today with the patient: reviewing tests in preparation to see and discuss them with the patient, documenting clinical information in the electronic health records, and care coordination. Time was spent performing a medical exam and evaluation, counseling and educating the patient, and ordering medications, tests in caring for the patient. Follow-up With When Contact Information Tomy DUNN, Patience Salinas, URL, URO In 3 months Additional Instructions: Patient Education Benign Prostatic Hyperplasia I, Vania Dougherty, personally scribed for Dr. Huitron on 04/16/2023 10:59:26. . Documentation recorded by the scribe, Vania Dougherty, accurately reflects the services(s) I performed and decisions made by me. Authenticated by Dr. Huitron on 04/16/2023 12:38:21. 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 Normal [facility] Comment on above: Result Comment: Elec tronically Signed By: Patience Huitron MD\.br\Date and Time Signed: 04/16/23 12:38 EDT\.br\Electronically Co-Signed By: Vania Dougherty\.br\Date and Time Co-Signed: 04/16/23 10:59 EDT Consent for Procedure/Surger yon 03-03-2023 Consent for Procedure/Surgery [id number]. 00CD:127 Normal [facility] Consent for Treatmenton 02-21 Consent for Treatment [id number] 0CD:127 Normal [facility] Inpatient Patient Summaryon 03-03-2023 Inpatient Patient Summary [place] [id number] Clinical Summary Person Information Name: IGNACIO AMIN Age: 77 Years : 1945 Sex: Male PCP: ELLIOT ROSALES MD Marital Status: Race: White Ethnicity: Non- or Language: Mexican Visit Id: Visit Reason: BPH WITH LUTS Speciality: Acuity: Enc Type: Outpatient Med Service: Surgery Arrival: 03/03/2023 08:34:30 Discharge: Dispo Type: Address: [address] [place] [phone] Provider Notes: Diagnosis: Anticoagulated; BPH with urinary obstruction; Other obstructive and reflux uropathy Problems Active OAB (overactive bladder) Anticoagulated Chronic duodenal ulcer (08/07/2010) Myocardial infarction Microscopic hematuria BPH with urinary obstruction Personal history of prostate cancer ED (erectile dysfunction) Prostate cancer Heart disease Heart attack Anemia Urinary urgency Smoker Smoking Status: Functional Status: Sensory Deficits: History of Falls: Mobility Assistance Prior to Admission: ADLs: Current Level of Assistance for Self-Care/Mobility: Cognitive Status: Allergies flu vaccines (Unknown) Laboratory or Other Results This Visit (last charted value for your 03/03/2023 visit) No Laboratory or Other Results This Visit Measurements: Height: Weight: Blood Pressure: Not Valued / Not Valued BMI: Procedures No Procedures Documented Immunizations No Immunizations Documented This Visit Final Med List: apixaban (Eliquis 5 mg oral tablet) By Mouth 2 times a day. aspirin (aspirin 81 mg oral capsule) By Mouth every 4 hours. atorvastatin (Lipitor 80 mg Tab) By Mouth every day. diazepam (Valium 10 mg Tab) 1 Tablets By Mouth Once as needed for anxiety. take 1 hour prior to scheduled procedure. Refills: 0. furosemide (furosemide 20 mg Tab) By Mouth every day. metoprolol (Toprol XL 50 mg Tab-ER) By Mouth every day. mirabegron (Myrbetriq 25 mg oral tablet, extended release) 1 Tablets By Mouth every day for 90 Days. Refills: 3. multivitamin with minerals (Centrum Silver) By Mouth every day. multivitamin with minerals (Urinozinc Prostate Health Complex Classic) By Mouth every day. tamsulosin (Flomax 0.4 mg Cap) 1 Capsules By Mouth every day. Refills: 3. Care Team Members: Attending Physician: Patience Huitron MD Consulting Physician: Referring Physician: Patience Huitron MD Follow up: With: Address: When: Patience Huitron [address], [place] [address], [place] [id number] [phone] Business (1) Comments: Office to schedule follow up in 1 month with PVR Patient Education Information: Lue - Urolift Post-Op Instructions (CUSTOM) [facility] IntraOperative Documentson 0 03-03-2023 IntraOperative Documents [id number]. 00CD:127 [facility] Main OR Intraoperative Recor don 03-03-2023 Main OR Intraoperative Record IntraOp Document Type FTURO Summary Primary Physician: Patience Huitron MD Finalized Date/Time: 03/03/23 10:01:19 Pt. Name: IGNACIO AMIN/Sex: 1945 Male Med Rec #: [id number] Physician: Patience Huitron MD Financial #: [id number] Pt. Type: O Room/Bed: / Admit/Disch: 03/03/23 08:34:30 - Institution: Case Times FTURO Entry 1 Patient Times In Room 03/03/23 09:47:00 Out Room 03/03/23 10:06:00 Procedure Times Start 03/03/23 09:51:00 Stop 03/03/23 09:57:00 Anesthesia Times Last Modified By: Amaya TRIMBLE, Leola Husain 03/03/23 10:01:15 Case Attendance FTURO Entry 1 Entry 2 Entry 3 Case Attendee Patience Huitron MD, RN, Catia Jarvis Role Performed Surgeon - Primary Health Care Coordinator - Primary Scrub - Primary Time In 03/03/23 09:47:00 03/03/23 09:47:00 03/03/23 09:47:00 Time Out 03/03/23 10:06:00 03/03/23 10:06:00 03/03/23 10:06:00 Procedure CYSTOSCOPY LOCAL CYSTOSCOPY LOCAL CYSTOSCOPY LOCAL UROLIFT(.) UROLIFT(.) UROLIFT(.) Comments Last Modified By: Amaya TRIMBLE, Leola Conde RN, Leola Conde RN, Leola Husain 03/03/23 Cami Husain 03/03/23 Cami Husain 03/03/23 10:01:15 10:01:15 10:01:15 Surgical Procedures FTURO Entry 1 Procedure Description Procedure CYSTOSCOPY LOCAL UROLIFT Modifiers . Surgeon Description CYSTOSCOPY LOCAL UROLIFT Primary Procedure Yes Primary Surgeon Patience Huitron MD Start 03/03/23 09:51:00 Stop 03/03/23 09:57:00 Anesthesia Type Local Surgical Service Urology Wound Class 2 - Clean-Contaminated Last Modified By: Amaya TRIMBLE, Leola Husain 03/03/23 10:01:00 General Case Data FTURO Pre-Care Text: Classifies surgical wound, implements aseptic technique, initiates traffic control Entry 1 Case Information OR URO 1 FT Case Level None Wound Class 2 - Clean-Contaminated Specialty Urology Preop Diagnosis BPH WITH LUTS Postop Same As Preop Yes Postop Diagnosis BPH WITH LUTS Outcomes Met? Yes Last Modified By: Amaya TRIMBLE, Leola Husain 03/03/23 09:47:48 Post-Care Text: The patient is free from signs and symptoms of infection EU IntraOp - FTURO Pre-Care Text: Implements protective measures prior to operative or invasive procedure, confirms identity before the operative or invasive procedure, verifies operative procedure, surgical site, and laterality Entry 1 EU Perioperative Protocols Procedure(s) CYSTOSCOPY LOCAL Patient Identity Birthday, ID Band UROLIFT(.) Verified (select at Check, Patient least 2): Participation Consents / H and P HandP, Surgery/Procedure Operative Site N/A Verified Consent Marking Verified Surgical Site Yes Laterality Verified n/a Verified Procedure Verified Yes Correct Patient Yes Position Verified Availability Equipment, Implant, Time Out Patience Huitron MD, Verified (If Medication Participants Amaya TRIMBLE, Leola Applicable) Makeda Colindres Kendall R Time Out Complete 03/03/23 09:50:00 Allergies Reviewed? Yes Allergies Reviewed Self/Patient With Body Position High Lithotomy Prep Area PENIS Prep Agents Betadine Solution Skin. Condition Unable to Visualize Description PARTIALLY CLOTHED Additional None Specimens Collected Vitals - EU Blood Pressure Pulse Respirations SPO2 IandO - EU Outcomes Met? Yes Last Modified By: Leola Conde RN 03/03/23 09:49:05 Post-Care Text: The patient is free from signs and symptoms of injury caused by extraneous objects Implant Log FTURO Pre-Care Text: Records devices implanted during the operative or invasive procedure Entry 1 Entry 2 Implant/Explant Implant Implant Implant Identification Description UROLIFT IMPLANT UROLIFT IMPLANT Serial Number Lot Number [id number] Supercharge Repair Supervisor NEOTRACT NEOTRACT Catalog ?# [id number] UL2-C Size Expiration Date 11/06/23 10/01/23 Usage Data Implant Site PROSTATE PROSTATE Quantity 1 4 Temperature Reconstitution Method Outcomes Met? Yes Yes Last Modified By: Leola Conde RN, RN, Maria Veronica P 03/03/23 Cami Husain 03/03/23 09:59:37 09:59:37 Post-Care Text: The patient is free from signs and symptoms of injury caused by extraneous objects Sign Out FTURO Entry 1 Before Patient Leaves OR Nurse verbally Yes Nurse verbally Yes confirms with the confirms with the team the name of team that the procedure(s) instrument, sponge, recorded and needle counts are correct (or N/A) Nurse verbally n/a Nurse verbally Yes confirms with the confirms with the team how the team whether there specimen is labeled are any equipment (including patient problems to be name), if applicable addressed Sign Out Complete 03/03/23 09:57:00 Last Modified By: Leola Conde RN 03/03/23 10:01:00 Case Comments Finalized By: Leola Conde RN Document Signatures Signed By: Leola Conde RN 03/03/23 10:01 Normal [facility] Main OR Preoperative Recordo n 03-03-2023 Main OR Preoperative Record Holding Area Document Type FTURO Summary Primary Physician: Patience Huitron MD Finalized Date/Time: 03/03/23 09:24:52 Pt. Name: IGNACIO AMIN/Sex: 1945 Male Med Rec #: [id number] Physician: Patience Huitron MD Financial #: [id number] Pt. Type: O Room/Bed: / Admit/Disch: 03/03/23 08:34:30 - Institution: Case Times Holding FTURO Pre-Care Text: Verifies consent for planned procedure, identifies individual values and wishes concerning care, includes family members in perioperative teaching Secures patient's records' belongings, and valuables, maintains patient's dignity and privacy, and maintains patient confidentiality Entry 1 In Holding 03/03/23 09:16:00 Outcomes Met? Yes Last Modified By: STEFANIE Mohamud RN, Ruthann 03/03/23 09:16:12 Post-Care Text: The patient participates in decisions affecting his or her perioperative plan of care The patient's right to privacy is maintained Surgery Checklist FTURO Entry 1 Patient Birthday, ID Band Procedure History and Physical, Identification: Check, Patient Verification: Surgical Consent, With Participation Patient NPO after Midnight: n/a Personal Items: Dentures Personal Items clothes Limitations: none Comment: Complaints of Pain: No Skin Integrity Intact Vitals - EU Blood Pressure 126/71 Pulse 60 bpm Respirations 14 br/min SPO2 97 % Additional None RN Reviewed Yes Specimens Collected Last Modified By: STEFANIE Mohamud RN, Ruthann 03/03/23 09:17:35 Finalized By: STEFANIE Mohamud RN, Ruthann Document Signatures Signed By: STEFANIE Mohamud RN, Ruthann 03/03/23 09:17 STEFANIE Mohamud RN, Ruthann 03/03/23 09:24 Normal [facility] Operative Reporton 3 Operative Report Patient: LAURA AMIN Age: 77 years Sex: Male : 1945 Associated Diagnoses: None Author: Patience Huitron MD Procedure Operative Information Details: Date/ Time: 03/03/2023 10:04:00. Pre-Op Dx: BPH w/ LUTS - N40.1. Post-Op Dx: Same. Anesthesia Type: Local. Procedure: Cystoscopy with UroLift Prostatic Urethral Lift, 4 additional implants for a total of 5. Complications: None. Risks/Benefits/Informe d Consent: Surgical risks, benefits, details of the procedure have been explained to the patient, Full informed consent has been obtained. Indications: INDICATIONS: 77-year-old male with benign prostatic hyperplasia and bothersome voiding symptoms including obstruction. Specifically, the patient has an IPSS of 8, post-void residual volume (PVR) of 147 ml. Office cystoscopy demonstrates bilateral mild-moderate lateral lobe obstruction with small left based median lobe component. Estimated volume 40g. His symptoms have failed to improve on medical therapy (alpha blockers) and he desires to be off of medications. After discussion of surgical treatment options, the patient elected a prostatic urethral lift procedure in which permanent transprostatic implants are installed to create a wider channel by which to void. . Intraoperative Information Procedure: PROCEDURE: Patient received local anesthesia: 10 mg diazepam 45 min prior, 33 cc 2% lidocaine gel to urethra; penile clamp installed for 30 min dwell prior to procedure. Additional 11ml lidocaine gel inserted per urethra after clamp removed and patient prepped/draped in the usual sterile fashion. A 20F cystoscope was inserted into the bladder. The cystoscopy bridge was replaced with a UroLift UL-2 delivery device. The first treatment site was the patient's left side approximately 1.5 cm distal to the bladder neck. The distal tip of the delivery device was then angled anterior laterally approximately 10 degrees at this position to compress the lateral lobe. The trigger was pulled, thereby deploying a needle containing the implant through the prostate. The implant was additionally compressed for total 20 degrees, trigger pulled and needle was then retracted, allowing one end of the implant to be delivered to the capsular surface of the prostate. The implant was then tensioned to assure capsular seating and removal of slack monofilament. The device was then angled back toward midline and slowly advanced proximally (typically 3 to 4 mm) until cystoscopic verification of the monofilament being centered in the delivery bay. The urethral end piece was then affixed to the monofilament thereby tailoring the size of the implant. Excess filament was then severed. The delivery device was then re-advanced into the bladder. The delivery device was then replaced with cystoscope and bridge and the implant location and opening effect was confirmed cystoscopically. The same procedure was then repeated on the right side, and two additional implants were delivered just proximal to the verumontanum, again one on right and one on left side of the prostate, following a similar technique. Cystoscopy then revealed a persistent area of obstruction, and one more implants was delivered in the left mid prostate. A final cystoscopy was conducted first to inspect the location and state of each implant and second, to confirm the presence of a continuous anterior channel was present through the prostatic urethra with irrigation flow turned off. All instruments were removed. The patient's bladder was left full to allow patient to void prior to discharge home. The patient tolerated the procedure well without complication. . Specimens Removed: None. Devices Implanted: 5 implants attempted, 5 seated. . Postoperative Information Discharge: The patient tolerated the procedure well and was subsequently discharged home, Follow up in 1 month with PVR. Normal [facility] Comment on above: Result Comment: Elec tronically Signed By: Patience Huitron MD\.br\Date and Time Signed: 03/03/23 10:07 EDT Outpatient Surgery Discharge Instructionon 03-03-2023 Outpatient Surgery Discharge Instruction [address] [address] Patient Discharge Instructions PERSON INFORMATION Name: IGNACIO AMIN Date of : 1945 Current Date: 03/03/2023 10:03:11 PHYSICIANS Admitting Physician: Patience Huitron MD Comment: Discharge Diagnosis: Anticoagulated; BPH with urinary obstruction; Other obstructive and reflux uropathy IGNACIO AMIN has been given the following list of follow-up instructions, prescriptions, and patient education materials: IF UNABLE TO CONTACT YOUR PHYSICIAN AND YOU FEEL IT IS AN EMERGENCY, GO TO THE NEAREST EMERGENCY ROOM OR CALL 911 Follow up: With: Address: When: Patience Huitron [address] [place], [place] [id number] [phone] Business (1) Comments: Office to schedule follow up in 1 month with PVR Comment: PATIENT EDUCATION INFORMATION Instructions: [facility] [place], [place] Post-Operative Instructions for UroLift After your procedure it is normal to have: Gross Hematuria (blood in the urine) You may even notice blood clots in your urine. A small amount of blood may apppear to be a lot of blood in your urine as it is diluted. Restarting your blood thinner, increased activity and heavy lifting could increase the amount of bleeding. The bleeding may be sporadic (off and on) over the next 2-3 weeks. Ensure you are hydrating to assist in flushing the blood to prevent voiding complications. In the event you are unable to void, please reach out to our office. If the office is closed, you will need to report to the local emergency room. Blood in your semen and stool may be present. The blood in your semen is not harmful to you or your partner. This will resolve with time. Frequency/urgency/burn ing with urination is very common. This is due to irritation from your procedure. These symptoms do not indicate that your procedure was unsuccessful or that there is an infection. Ensure you are hydrating! You may try AZO over the counter as needed for urinary discomfort. Pain/discomfort are normal as well. There has been a non-narcotic prescription sent to your pharmacy. You may alternate this prescription with over the counter Ibuprofen. Your pain and discomfort should improve within a few days. When do I need to call the office? We ask that you reach out to the office if you experience a temperature of 100.4 ? F or higher, excessive urinary bleeding, symptoms of infection, inability to urinate or uncontrolled pain. If the office is closed, you may need to present to the local emergency department. Colvin catheter If you have a catheter and will remove it at home, you may do so the next day if urine is clear and no longer red/pink in color. If urine is red, wait until clear to remove the catheter. See attached instructions for removal. Postop UroLift Instructions ? Complete your antibiotic as instructed. ? Remain on all your urinary medication until follow up. ? Take your pain madications and AZO as needed. ? Resume any blood thinners 48 hour post procedure. ? Continue to hydrate! ? Minimize your activity for 72-96 hours post procedure. ? If you are prescribed Oxybutynin for bladder spasms, you may take this medication every 8 hours as needed. This medication may cause dry mouth/eyes and constipation. Taking an over the counter stool softener and drinking plenty of water will help with side effects. Colvin Catheter Removal Your healthcare provider has instructed you to remove your Colvin catheter. This is a thin, flexible tube that allows urine to drain out of your bladder and into a bag. It is important to properly remove your catheter to prevent infection and other complications. If you have any questions about removing the Colvin catheter, ask your healthcare provider before trying to remove it. Otherwise, follow the instructions on this sheet. Colvin Catheter The Colvin catheter is held in place by a small balloon that is filled with water. To remove the catheter, you must first drain the water from the balloon. This is done using a syringe and the balloon port. This is the opening in the catheter that is not attached to the bag. It allows you to get to the balloon. Instructions for Removing the Catheter Follow the directions closely. Note: If the catheter does not come out with gentle pulling, stop and call your healthcare provider right away. ? Empty the bag of urine if needed. ? Wash your hands with soap and warm water. Dry them well. ? Gather your supplies. This includes a syringe that was given to you by your healthcare provider, a wastebasket, and a towel. ? Put the syringe into the balloon port on the catheter. The syringe fits tightly into the port with a firm push and twist motion. ? Wait as the water from the balloon empties into the syringe. Depending on how large th (more content not included)... Normal [facility] Patient Educationon 03-03-20 23 Patient Education [facility] [place], [place] Post-Operative Instructions for UroLift After your procedure it is normal to have: Gross Hematuria (blood in the urine) You may even notice blood clots in your urine. A small amount of blood may apppear to be a lot of blood in your urine as it is diluted. Restarting your blood thinner, increased activity and heavy lifting could increase the amount of bleeding. The bleeding may be sporadic (off and on) over the next 2-3 weeks. Ensure you are hydrating to assist in flushing the blood to prevent voiding complications. In the event you are unable to void, please reach out to our office. If the office is closed, you will need to report to the local emergency room. Blood in your semen and stool may be present. The blood in your semen is not harmful to you or your partner. This will resolve with time. Frequency/urgency/burn ing with urination is very common. This is due to irritation from your procedure. These symptoms do not indicate that your procedure was unsuccessful or that there is an infection. Ensure you are hydrating! You may try AZO over the counter as needed for urinary discomfort. Pain/discomfort are normal as well. There has been a non-narcotic prescription sent to your pharmacy. You may alternate this prescription with over the counter Ibuprofen. Your pain and discomfort should improve within a few days. When do I need to call the office? We ask that you reach out to the office if you experience a temperature of 100.4 ? F or higher, excessive urinary bleeding, symptoms of infection, inability to urinate or uncontrolled pain. If the office is closed, you may need to present to the local emergency department. Colvin catheter If you have a catheter and will remove it at home, you may do so the next day if urine is clear and no longer red/pink in color. If urine is red, wait until clear to remove the catheter. See attached instructions for removal. Postop UroLift Instructions ? Complete your antibiotic as instructed. ? Remain on all your urinary medication until follow up. ? Take your pain madications and AZO as needed. ? Resume any blood thinners 48 hour post procedure. ? Continue to hydrate! ? Minimize your activity for 72-96 hours post procedure. ? If you are prescribed Oxybutynin for bladder spasms, you may take this medication every 8 hours as needed. This medication may cause dry mouth/eyes and constipation. Taking an over the counter stool softener and drinking plenty of water will help with side effects. Colvin Catheter Removal Your healthcare provider has instructed you to remove your Colvin catheter. This is a thin, flexible tube that allows urine to drain out of your bladder and into a bag. It is important to properly remove your catheter to prevent infection and other complications. If you have any questions about removing the Colvin catheter, ask your healthcare provider before trying to remove it. Otherwise, follow the instructions on this sheet. Colvin Catheter The Colvin catheter is held in place by a small balloon that is filled with water. To remove the catheter, you must first drain the water from the balloon. This is done using a syringe and the balloon port. This is the opening in the catheter that is not attached to the bag. It allows you to get to the balloon. Instructions for Removing the Catheter Follow the directions closely. Note: If the catheter does not come out with gentle pulling, stop and call your healthcare provider right away. ? Empty the bag of urine if needed. ? Wash your hands with soap and warm water. Dry them well. ? Gather your supplies. This includes a syringe that was given to you by your healthcare provider, a wastebasket, and a towel. ? Put the syringe into the balloon port on the catheter. The syringe fits tightly into the port with a firm push and twist motion. ? Wait as the water from the balloon empties into the syringe. Depending on how large the balloon is, you may need to repeat this process several times until all of the water is out of the balloon. ? Once the balloon is emptied, gently pull out the catheter. ? Put the used catheter in the wastebasket. Throw away the syringe. ? Use the towel to wipe up any spilled water or urine if needed. ? Wash your hands again. When to Call Your Healthcare Provider Call the healthcare provider right away if: ? You have a fever of 100.4 ?F (38?C) or higher, or as directed by your healthcare provider. ? You have questions about removing the catheter. ? The catheter does not come out with gentle pulling. ? You cannot urinate within 8 hours of removing the catheter. ? Your belly (abdomen) is painful or bloated ? You have burning pain with urination that lasts for 24 hours. ? You see a lot of blood in your urine. Light bleeding for 24 hours is normal. ? It feels like the bladder is not emptying. Normal [facility] Office Visiton 02-18-2023 Follow-up visit [id number] Hans Amin 1945 M Date Provider Department Center 02/18/2023 Jeanette-RUTH URRUTIA LISHA Taveras [facility] Family History Problem Relation Age of Onset Diabetes Mother Coronary artery disease Father Other Sister Family Status - Relation Status Age at Mother Father Sister Level of Service:55976 [place] OFFICE/OUTPATIENT [facility] 60-74 MINUTES Normal [facility] Reminderson 02-12-2023 Reminders - From: Marley Santillan To: EU - Recalls Lue; Sent: 12/25/2022 15:33:52 EDT Show up: 02/04/2023 15:33:00 EDT Subject: schedule UroLift Reminder/Recall PAtient would like urolift in . Clearance to hold [facility] (note 12/20/22) called patient to schedule, left msg on voicemail Patient is scheduled 03/03/23 [facility] Consultation Noteon 12-31-19 Consultation Note [id number] 0CD:127 Normal [facility] Office Visiton 12-20-2022 Follow-up visit [id number] Hans Amin Sarita 1945 M Date Provider Department Center 12/20/2022 [facility] Family History Problem Relation Age of Onset Diabetes Mother Coronary artery disease Father Other Sister Family Status - Relation Status Age at Mother Father Sister Level of Service:37342 [place] OFFICE/OUTPATIENT ESTABLISHED MOD MDM 30-39 MIN Normal [facility] Félix 12-13-2022 L -- ---- Specimen: [id number] Received: 12/13/22 Status: LORI Shira Num: [id number] Spec Type: Surgical Subm Dr: Yung Yang MD Tissues: A Colon Biopsy (ASCENDING POLYPS) Procedures: HE/2, Gross/Micro L4 ---- Age/ Patient Sex Location Account Attending Physician ---- Ignacio Amin 77/M [id number] Yung Yang MD ---- SPEC NUM: [id number] RECD: 12/13/22 STATUS: LOIR VILLAFANA NUM: [id number] DILLON: 12/13/[address]: Yung Yang MD ENTERED: 12/13/[address] [facility] [address]: MIRELLA TYPE: Surgical DEPT: S ORDERED: HE/2, Gross/Micro L4 ORDERED: HE/2, Gross/Micro L4 Pathological Diagnosis Colon, ascending, polyps, biopsy: - Fragments of sessile serrated adenoma. - Tubular adenoma. Clinical Information Screen Gross Description Received in formalin labeled with the patient's name, date of and polyps ascending are multiple zepeda tissues measuring 2.4 x 1.1 x 0.3 cm in aggregate. Entirely submitted in one cassette labeled A1. Microscopic Description Two H E slides reviewed. The microscopic examination confirms the diagnosis. CPT Codes 51308 ---- ---- Specimen: [id number] Received: 12/13/221143 Status: LORI Villafana Num: [id number] Spec Type: Surgical Subm Dr: Yung Yang MD Tissues: A Colon Biopsy (ASCENDING POLYPS) Procedures: HE/2, Gross/Micro L4 ---- Patient: Ignacio Amin [id number] (Continued) ---- Signed (signature on file) Ashley Mcgrath MD 12/16/22 1120 [facility] Urology Office/Clinic Noteon 12-05-2022 Urology Office/Clinic Note Chief Complaint 6m HPI Staff 6m (no labs) DX: BPH, Personal Hx of Prostate Cancer & Microscopic hematuria. S/P Brachytherapy done 2011 *Tamsulosin 0.4 mg QD & Myrbetriq 25mg therapy. Denies pain/burning and visible blood in urine. Voids q2hrs. Weak stream. JOSHUA 1 IPSS 8 Is interested in discussing Urolift procedure. Would like to stop taking medications. History of Present Illness Tests reviewed: reviewed UA. I have reviewed the previous health record information and history for this patient from Dr. Huitron. I have reviewed and verified the staff HPI to be accurate for this encounter. There have been no associated fever, chills, flank pain, or blood in the urine. Denies any urinary infections since last encounter. Review of Systems PHQ Score Initial Depression Screen Score: 0 ROS - Provider Constitutional: denies weight loss, denies hot flashes. Eyes: denies eye problems. Gastrointestinal: denies nausea, denies vomiting. Cardiovascular: denies chest pain or angina. Integumentary: no dryness Musculoskeletal: denies musculoskeletal symptoms. ENMT: denies otolaryngeal symptoms. Respiratory: no shortness of breath. Heme/Lymph: denies easy bleeding tendency, denies easy bruising tendency. Psychiatric: no confusion, no anxiety. Genitourinary: See HPI. Physical Exam Vitals & Measurements HR: 68(Peripheral) RR: 16 BP: 130/74 HT: 71 in HT: 180 cm WT: 88 kg WT: 193.6 lb BMI: 27.16 General Appearance: alert, no distress, well nourished, well developed male. Genitourinary: Flank Pain: none. Bladder: nonpalpable. Prostate: Flat, 40-50 gm, distant. Assessment/Plan JOSHUA 1. 1. BPH with urinary obstruction (N40.1: Benign prostatic hyperplasia with lower urinary tract symptoms) Cysto 10/01/21 - Mild-moderate lateral lobe hypertrophy with moderate median lobe enlargement with small intravesical median lobe towards pt's left bladder neck. Not ball valve effect. Short prostate. High bladder neck. No trabeculation. UA today negative for blood and infection. IPSS 8 (6). Taking Flomax 0.4 mg qd. C/o weak stream. Pt inquired about urolift procedure again. Discussed different treatment options for bladder outlet obstruction including oral medications, operative interventions such as TURP, versus less invasive options such as Rezum or Urolift, depending on prostate size and shape. Educational pamphlets provided. Higher risk of complications with TURP given hx of brachy. Pt aware he will need cardiac clearance to hold BTs for a few days. -Will schedule Urolift once pt cleared See #4. The procedural risks, benefits, details, and treatment alternatives have been discussed with the patient. These include bleeding, infection, continued problems urinating, increased frequency with urgency during the healing process, painful urination, need for indwelling catheter after the procedure, and the need for additional procedures in the future, among others. The risk of penile erection problems and urinary leakage is less after this procedure than some others, but could still occur. Full informed consent has been obtained. Will order Local anesthesia. -Cont timed voids, avoid bladder irritants - Patient is tolerating current medication for BPH well without side effects, he would like to continue the medication. 2. Personal history of prostate cancer (Z85.46: Personal history of malignant neoplasm of prostate) S/P Brachytherapy 2011. Dr. Doyle monitors PSA. Recently saw Dr. Doyle, PSA remained low, pt was cleared to follow with him on a PRN basis. Understandable given age and co-morbidities. 3. OAB (overactive bladder) (N32.81: Overactive bladder) Taking Myrbetriq 25 mg ER qd and lasix PVR 147 cc. Asx, no UTIs Discussed pt anatomy and bladder pathophysiology. -Cont med mgmt until able to undergo outlet procedure. Potential for botox in the future -Timed voids 4. Anticoagulated (Z79.01: senior living (current) use of anticoagulants) Eliquis 5mg BID -stent-open heart surgery/triple bypass around Mar 2022. Elevated periop risk. -Cardiac clearance/AC for urolift in Feb 2023. I spent 30 minutes today with the patient: reviewing tests in preparation to see and discuss them with the patient, documenting clinical information in the electronic health records, and care coordination. Over half the time was spent performing a medical exam and evaluation, and counseling and educating the patient, and ordering medications and procedures in caring for the patient. Follow-up With When Contact Information Patience Huitron MD, URL, URO Additional Instructions: schedule urolift Patient Education Benign Prostatic Hyperplasia I, Keely Zacarias, personally scribed for Dr. Huitron on 12/04/2022 09:47:59. . Documentation recorded by the scribsarita, Keely Zacarias, accurately reflects the services(s) I performed and decisions made by me. Authenticated by Dr. Huitron on 12/05/19 (more content not included)... Normal [facility] Comment on above: Result Comment: Elec tronically Signed By: Patience Huitron MD\.br\Date and Time Signed: 12/04/22 23:21 EDT\.br\Electronically Co-Signed By: Keely Zacarias\.br\Date and Time Co-Signed: 12/04/22 09:48 EDT Formson 12-04-2022 Forms [id number] 0CD:127 Normal [facility]el[facility] Patient Educationon 12-05-19 Patient Education Urology Benign Prostatic Hyperplasia Benign prostatic hyperplasia (BPH) is an enlarged prostate gland that is caused by the normal aging process. The prostate may get bigger as a man gets older. The condition is not caused by cancer. The prostate is a walnut-sized gland that is involved in the production of semen. It is located in front of the rectum and below the bladder. The bladder stores urine. The urethra carries stored urine out of the body. An enlarged prostate can press on the urethra. This can make it harder to pass urine. The buildup of urine in the bladder can cause infection. Back pressure and infection may progress to bladder damage and kidney (renal) failure. What are the causes? This condition is part of the normal aging process. However, not all men develop problems from this condition. If the prostate enlarges away from the urethra, urine flow will not be blocked. If it enlarges toward the urethra and compresses it, there will be problems passing urine. What increases the risk? This condition is more likely to develop in men older than 50 years. What are the signs or symptoms? Symptoms of this condition include: ? Getting up often during the night to urinate. ? Needing to urinate frequently during the day. ? Difficulty starting urine flow. ? Decrease in size and strength of your urine stream. ? Leaking (dribbling) after urinating. ? Inability to pass urine. This needs immediate treatment. ? Inability to completely empty your bladder. ? Pain when you pass urine. This is more common if there is also an infection. ? Urinary tract infection (UTI). How is this diagnosed? This condition is diagnosed based on your medical history, a physical exam, and your symptoms. Tests will also be done, such as: ? A post-void bladder scan. This measures any amount of urine that may remain in your bladder after you finish urinating. ? A digital rectal exam. In a rectal exam, your health care provider checks your prostate by putting a lubricated, gloved finger into your rectum to feel the back of your prostate gland. This exam detects the size of your gland and any abnormal lumps or growths. ? An exam of your urine (urinalysis). ? A prostate specific antigen (PSA) screening. This is a blood test used to screen for prostate cancer. ? An ultrasound. This test uses sound waves to electronically produce a picture of your prostate gland. Your health care provider may refer you to a specialist in kidney and prostate diseases (urologist). How is this treated? Once symptoms begin, your health care provider will monitor your condition (active surveillance or watchful waiting). Treatment for this condition will depend on the severity of your condition. Treatment may include: ? Observation and yearly exams. This may be the only treatment needed if your condition and symptoms are mild. ? Medicines to relieve your symptoms, including: ? Medicines to shrink the prostate. ? Medicines to relax the muscle of the prostate. ? Surgery in severe cases. Surgery may include: ? Prostatectomy. In this procedure, the prostate tissue is removed completely through an open incision or with a laparoscope or robotics. ? Transurethral resection of the prostate (TURP). In this procedure, a tool is inserted through the opening at the tip of the penis (urethra). It is used to cut away tissue of the inner core of the prostate. The pieces are removed through the same opening of the penis. This removes the blockage. ? Transurethral incision (TUIP). In this procedure, small cuts are made in the prostate. This lessens the prostate's pressure on the urethra. ? Transurethral microwave thermotherapy (TUMT). This procedure uses microwaves to create heat. The heat destroys and removes a small amount of prostate tissue. ? Transurethral needle ablation (TUNA). This procedure uses radio frequencies to destroy and remove a small amount of prostate tissue. ? Interstitial laser coagulation (ILC). This procedure uses a laser to destroy and remove a small amount of prostate tissue. ? Transurethral electrovaporization (TUVP). This procedure uses electrodes to destroy and remove a small amount of prostate tissue. ? Prostatic urethral lift. This procedure inserts an implant to push the lobes of the prostate away from the urethra. Follow these instructions at home: ? Take ajiq-jea-qcectgr and prescription medicines only as told by your health care provider. ? Monitor your symptoms for any changes. Contact your health care provider with any changes. ? Avoid drinking large amounts of liquid before going to bed or out in public. ? Avoid or reduce how much caffeine or alcohol you drink. ? Give yourself time when you urinate. ? Keep all follow-up visits. This is important. Contact a health care provider if: ? You have unexplained back pain. ? Your symptoms do not get better with treatment. ? You develop side effects from the medicine (more content not included)... Normal [facility] Screenson 12-04-2022 Screens [id number]. 00CD:127 Normal [facility] Screens [id number]#1. 00CD:127 Normal [facility] CNOVon 09-24-2022 CNOV Office Visit (RADTSA ) IGNACIO AMIN ([id number]) 1945 M Date Time Provider Department 09/24/22 1:00 PM Ema DOYLE During your visit today, we recorded the following information about you: Temperature Pulse Respiration Blood pressure 97.1 degrees 60/minute 18/minute 129/79 Weight 86 kg Nurys Saleem RN 10/01/2022 10:49 AM Signed AUA 3 NAI Parker MD 10/01/2022 10:49 AM Signed Radiation Oncology - Follow Up Note PATIENT NAME: Ignacio Amin PATIENT DIAGNOSIS: Prostate cancer, with prior brachytherapy for delivered in August of 2006 INTERVAL HISTORY: Overall doing well. 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 Denies any bowel or bladder related issues. PSA HISTORY: 09/13/20: <0.05 ng/ml PSA. (no units) Date Value PSA. (no units) Date Value 09/18/2022 <0.13 09/19/2021 <0.05 09/15/2018 <0.13 10/02/2017 <0.06 10/02/2017 <0.06 09/25/2016 <0.06 09/27/2015 <0.06 09/28/14 <0.06 ng/ml ALLERGIES: ALLERGIES Allergen Reactions Influenza Virus Vac* Intolerance MEDICATIONS: furosemide (LASIX) 20 mg tablet Take 10 mg by mouth once daily. potassium chloride SR (MICRO-K) 10 mEq CR capsule Take 10 mEq by mouth twice daily. apixaban (ELIQUIS) 5 mg tab(s) Take by mouth twice daily. diphenoxylate-atropine (LOMOTIL) 2.5-0.025 mg per tablet Take 1 tablet by mouth four times daily as needed. melatonin 10 mg tab Take by mouth daily at bedtime. acetaminophen (TYLENOL) 325 mg tablet Take 650 mg by mouth every 6 hours as needed. tamsulosin (FLOMAX) 0.4 mg Take 0.4 mg by mouth once daily. MYRBETRIQ 25 mg Tb24 Take 25 mg by mouth once daily. MULTIVITAMIN ORAL Take by mouth. VIT C/VIT E/LUTEIN/MIN/OMEGA-3 (OCUVITE ORAL) Take by mouth. metoprolol succinate ER (TOPROL XL) 50 mg 24 hr tablet Take 50 mg by mouth once daily. atorvastatin (LIPITOR) 80 mg tablet Take 80 mg by mouth once daily. aspirin, enteric coated (ASPIRIN, ENTERIC COATED) 81 mg EC tablet Take 81 mg by mouth once daily. PERTINENT REVIEW OF SYSTEMS: Hematuria: none Dysuria: none Incontinence: none Urgency: none Catheter use: none AUA = 3 Medications to aid urination: no Bowel movement frequency: 1-3/day Bowel movement quality: normal Blood per rectum: none PHYSICAL EXAM: BP 129/79 Pulse 60 Temp 36.2 ?C (97.1 ?F) Resp 18 Wt 86 kg (189 lb 9.6 oz) SpO2 100% KPS:100 General appearance: Alert and oriented. No acute distress. Rectal exam def Extremities: No deformities, edema, skin discoloration, clubbing or cyanosis. Lymph Nodes: No cervical lymphadenopathy, No supraclavicular lymphadenopathy, No axillary lymphadenopathy. Skin: Skin color, texture, turgor normal, no suspicious rashes or lesions. ASSESSMENT/PLAN: Prostate cancer, stage II with prior I-125 brachytherapy August 2006. Patient doing well with undetectable PSA. No evidence of recurrence or late radiation problems. He continues close follow-up with urology. Plan to see patient back on an as-needed basis recommend continued yearly PSA. Signed by: Ema Doyle MD Portions of the above note extracted and edited from previous visit as well as active information included in the EMR. Referring Provider: Ema DOYLE [[id number]] Allergies As of Date: 09/24/2022 Noted Allergy Reaction INFLUENZA VIRUS VACCINE TV SPLIT *10/04/2014 5 - Intolerance Date Reviewed: 09/24/2022 Reviewed by: Nurys Saleem RN - Fully Assessed Primary Visit Diagnosis:History of prostate cancer [Z85.46] Order(s):PSA (OUTSIDE) [4673791] Order #: [id number] PSA/PROSTSPECAG DIAG [SQPSA] Order #: [id number] FUTURE Prescriptions as of 10/01/2022 - furosemide (LASIX) 20 mg tablet Take 10 mg by mouth once daily. - potassium chloride SR (MICRO-K) 10 mEq CR capsule Take 10 mEq by mouth twice daily. - apixaban (ELIQUIS) 5 mg tab(s) Take by mouth twice daily. - diphenoxylate-atropine (LOMOTIL) 2.5-0.025 mg per tablet Take 1 tablet by mouth four times daily as needed. - melatonin 10 mg tab Take by mouth daily at bedtime. - acetaminophen (TYLENOL) 325 mg tablet Take 650 mg by mouth every 6 hours as needed. - tamsulosin (FLOMAX) 0.4 mg Take 0.4 mg by mouth once daily. - MYRBETRIQ 25 mg Tb24 Take 25 mg by mouth once daily. - MULTIVITAMIN ORAL Take by mouth. - VIT C/VIT E/LUTEIN/MIN/OMEGA-3 (OCUVITE ORAL) Take by mouth. - metoprolol succinate ER (TOPROL XL) 50 mg 24 hr tablet Take 50 mg by mouth once daily. - atorvastatin (LIPITOR) 80 mg tablet Take 80 mg by mouth once daily. - aspirin, enteric coated (ASPIRIN, ENTERIC COATED) 81 mg EC tablet Take 81 mg by mouth once daily. Problem List As Of Date 09/24/2022 Noted Resolved History of prostate cancer [Z85.46] 10/04/2015 Visit Notes: >> Nurys Saleem RN Tue Sep 24, 2022 1:06 PM Status: Signed DAVID Gamez (more content not included)... Normal [facility] FERRITINon 08-05-2022 Ferritin [Mass/Vol] 157.0 ng/mL Normal 26.0-388.0 [facility] Comment on above: Performed By: #### F ERR #### [facility] [address] [address] [address] Yoselin Rivera HEMOGRAM AND PLATELon 2022 Hematocrit (Bld) [Volume fraction] 35.7 % Critically low 42.0-54.0 [facility] Comment on above: Performed By: #### H H #### [facility] [address] [place] [address] Dr. Yoselin Rivera Hemoglobin (Bld) [Mass/Vol] 11.8 g/dL Critically low 14.0-18.0 [facility] Comment on above: Performed By: #### H H #### [facility] [address] [place] [address] Dr. Yoselin Rivera MCH (RBC) [Entitic mass] 30.3 pg Normal 25.9-34.0 [facility] Comment on above: Performed By: #### H H #### [facility] [address] [address] Dr. Yoselin Rivera MCHC (RBC) [Mass/Vol] 33.1 g/dL Normal 29.9-35.2 [facility] Comment on above: Performed By: #### H H #### [facility] [address] [address] [address] Yoselin Rivera MCV (RBC) [Entitic vol] 91.8 fL Normal 80.0-94.0 [facility] Comment on above: Performed By: #### H H #### [facility] [address] [place] [address] Dr. Yoselin Rivera PLT 157 103/ul Normal 150-450 [facility] Comment on above: Performed By: #### H H #### [facility] [address] [place] [address] Dr. Yoselin Rivera RBC 3.89 106/ul Critically low 4.70-6.10 [facility] Comment on above: Performed By: #### H H #### [facility] [address] [place] [address] Dr. Yoselin Rivera WBC 5.0 103/ul Normal 4.0-11.0 [facility] Comment on above: Performed By: #### H H #### [facility] [address] [place] [address] Dr. Yoselin Rivera PROF 14(COMP METB)on 023 Albumin [Mass/Vol] 3.6 g/dL Normal 3.4-5.0 [facility] Comment on above: Performed By: #### C MP #### [facility] [address] [place] [address] Dr. Yoselin Rivera Albumin/Globulin [Mass ratio] 1.0 {ratio} Normal [facility] Comment on above: Performed By: #### C MP #### [facility] [address] [place] [address] Dr. Yoselin Rivera ALP [Catalytic activity/Vol] 102 U/L Normal 46-116 [facility] Comment on above: Performed By: #### C MP #### [facility] [address] [place] [address] Dr. Yoselin Rivera ALT [Catalytic activity/Vol] 31 U/L Normal 16-63 [facility] Comment on above: Performed By: #### C MP #### [facility] [address] [place] [address] Dr. Yoselin Rivera Anion gap [Moles/Vol] 11.6 mmol/L Normal [facility] Comment on above: Performed By: #### C MP #### [facility] [address] [place] [address] Dr. Yoselin Rivera AST [Catalytic activity/Vol] 21 U/L Normal 15-37 [facility] Comment on above: Performed By: #### C MP #### [facility] [address] [place] [address] Dr. Yoselin Rivera Bilirubin [Mass/Vol] 0.5 mg/dL Normal 0.2-1.0 [facility] Comment on above: Performed By: #### C MP #### [facility] [address] [address] [address] Yoselin Rivera Calcium [Mass/Vol] 9.3 mg/dL Normal 8.5-10.1 [facility] Comment on above: Performed By: #### C MP #### [facility] [address] [address] [address] Yoselin Rivera Chloride [Moles/Vol] 104 mmol/L Normal 98-107 [facility] Comment on above: Performed By: #### C MP #### [facility] [address] [place] [address] Dr. Yoselin Rivera CO2 [Moles/Vol] 30.6 mmol/L Normal 21.0-32.0 [facility] Comment on above: Performed By: #### C MP #### [facility] [address] [place] [address] Dr. Yoselin Rivera Creatinine [Mass/Vol] 1.25 mg/dL Normal 0.70-1.30 [facility] Comment on above: Performed By: #### C MP #### [facility] [address] [place] [address] Dr. Yoselin Rivera EGFR-AF [place]DEAN >60 Normal >=60 [facility] Comment on above: Performed By: #### C MP #### [facility] [address] [address] [address] Yoselin Rivera EGFR-NON AF [place] 56 mL/min/1.73m2 Critically low >=60 [facility] Comment on above: Performed By: #### C MP #### [facility] [address] [place] [address] Dr. Yoselin Rivera Globulin (S) [Mass/Vol] 3.5 g/dL Normal [facility] Comment on above: Performed By: #### C MP #### [facility] [address] [place] [address] Dr. Yoselin Rivera Glucose [Mass/Vol] 132 mg/dL Critically high 74-106 T [facility] Comment on above: Performed By: #### C MP #### [facility] [address] [address] [address] Yoselin Rivera Potassium [Moles/Vol] 4.2 mmol/L Normal 3.5-5.1 [facility] Comment on above: Performed By: #### C MP #### [facility] [address] [address] [address] Yoselin Rivera Protein [Mass/Vol] 7.1 g/dL Normal 6.4-8.2 [facility] Comment on above: Performed By: #### C MP #### [facility] [address] [place] [address] Dr. Yoselin Rivera Sodium [Moles/Vol] 142 mmol/L Normal 136-145 [facility] Comment on above: Performed By: #### C MP #### [facility] [address] [place] [address] Dr. Yoselin Rivera Urea nitrogen [Mass/Vol] 27.0 mg/dL Critically high 7.0-18.0 [facility] Comment on above: Performed By: #### C MP #### [facility] [address] [place] [address] Dr. Yoselin Rivera Urea nitrogen/Creatinine [Mass ratio] 21.6 mg/mg Normal [facility] Comment on above: Performed By: #### C MP #### [facility] [address] [place] [address] Dr. Yoselin Rivera PROF CHEM 8 (BAS METB)on Anion gap [Moles/Vol] 11.3 mmol/L Normal [facility] Comment on above: Performed By: #### B MP #### [facility] [address] [place] [address] Dr. Yoselin Rivera Calcium [Mass/Vol] 9.3 mg/dL Normal 8.5-10.1 [facility] Comment on above: Performed By: #### B MP #### [facility] [address] [place] [address] Dr. Yoseiln Rivera Chloride [Moles/Vol] 103 mmol/L Normal 98-107 [facility] Comment on above: Performed By: #### B MP #### [facility] [address] [address] [address] Yoselin Rivera CO2 [Moles/Vol] 31.6 mmol/L Normal 21.0-32.0 [facility] Comment on above: Performed By: #### B MP #### [facility] [address] [address] [address] Yoselin Rivera Creatinine [Mass/Vol] 1.34 mg/dL Critically high 0.70-1.30 [facility] Comment on above: Performed By: #### B MP #### [facility] [address] [place] [address] Dr. Yoselin Rivera EGFR-AF [place]DE[place] >60 Normal >=60 [facility] Comment on above: Performed By: #### B MP #### [facility] [address] [address] [address] Yoselin Rivera EGFR-NON AF [place]DE[place] 52 mL/min/1.73m2 Critically low >=60 [facility] Comment on above: Performed By: #### B MP #### [facility] [address] [address] [address] Yoselin Rivera Glucose [Mass/Vol] 150 mg/dL Critically high 74-106 [facility] Comment on above: Performed By: #### B MP #### [facility] [address] [address] [address] Yoselin Rivera Potassium [Moles/Vol] 3.9 mmol/L Normal 3.5-5.1 [facility] Comment on above: Performed By: #### B MP #### [facility] [address] [address] [address] Yoselin Rivera Sodium [Moles/Vol] 142 mmol/L Normal 136-145 [facility] Comment on above: Performed By: #### B MP #### [facility] [address] [address] [address] Yoselin Rivera Urea nitrogen [Mass/Vol] 32.0 mg/dL Critically high 7.0-18.0 [facility] Comment on above: Performed By: #### B MP #### [facility] [address] [place], [place] [address] Dr. Yoselin Rivera Urea nitrogen/Creatinine [Mass ratio] 23.9 mg/mg Normal [facility] Comment on above: Performed By: #### B MP #### [facility] [address] [place], [place] [address] Dr. Yoselin Rivera Screenson 06-06-2022 Screens [id number] 04 [id number] 0CD:127 Normal [facility] Screens [id number] 20 [id number] 0CD:127 Normal [facility] Ambulatory Visit Summaryon 1 08-06-2021 Ambulatory Visit Summary IGNACIO AMIN :1945 Visit Date:06/05/2022 Ambulatory Visit Instructions Your Diagnosis BPH with urinary obstruction Personal history of prostate cancer Microscopic hematuria Anticoagulated Tests Performed Urnls Dip Stick Auto w/o Microscopy POC 41260 Your Care Team Attending Physician - Tomy DUNN, Patience Salinas Primary Care Physician - ELLIOT ROSALES MD This Is Your Medications List mirabegron (Myrbetriq 25 mg oral tablet, extended release) tamsulosin (Flomax 0.4 mg Cap) Contact prescribing physician if questions or concerns Turmeric acetaminophen (Tylenol Extra Strength 500 mg oral tablet) apixaban (Eliquis 5 mg oral tablet) aspirin (aspirin 81 mg oral capsule) atorvastatin (Lipitor 80 mg Tab) furosemide (furosemide 20 mg Tab) metoprolol (Toprol XL 50 mg Tab-ER) multivitamin with minerals (Centrum Silver) multivitamin with minerals (ICaps with Lutein and Zeaxan oral tablet) multivitamin with minerals (Urinozinc Prostate Health Complex Classic) tamsulosin (tamsulosin 0.4 mg Cap) Procedures Performed Brachytherapy (2011), Cataract, Cataract, Colonoscopy. Discharge Vitals Heart Rate (Peripheral) 65 Blood Pressure 128/69 Height 180 cm Height 71 in Weight 87 kg Weight 191.4 lb BMI 26.85 What to do next Scheduled Follow-Up Appointments Friday 9:15 AM EDT With: Tomy DUNN, Patience Salinas Where: [facility] Ko Normal [facility] Patient Educationon 06-05-20 Patient Education Benign Prostatic Hyperplasia Benign prostatic hyperplasia (BPH) is an enlarged prostate gland that is caused by the normal aging process and not by cancer. The prostate is a walnut-sized gland that is involved in the production of semen. It is located in front of the rectum and below the bladder. The bladder stores urine and the urethra is the tube that carries the urine out of the body. The prostate may get bigger as a man gets older. An enlarged prostate can press on the urethra. This can make it harder to pass urine. The build-up of urine in the bladder can cause infection. Back pressure and infection may progress to bladder damage and kidney (renal) failure. What are the causes? This condition is part of a normal aging process. However, not all men develop problems from this condition. If the prostate enlarges away from the urethra, urine flow will not be blocked. If it enlarges toward the urethra and compresses it, there will be problems passing urine. What increases the risk? This condition is more likely to develop in men over the age of 50 years. What are the signs or symptoms? Symptoms of this condition include: ? Getting up often during the night to urinate. ? Needing to urinate frequently during the day. ? Difficulty starting urine flow. ? Decrease in size and strength of your urine stream. ? Leaking (dribbling) after urinating. ? Inability to pass urine. This needs immediate treatment. ? Inability to completely empty your bladder. ? Pain when you pass urine. This is more common if there is also an infection. ? Urinary tract infection (UTI). How is this diagnosed? This condition is diagnosed based on your medical history, a physical exam, and your symptoms. Tests will also be done, such as: ? A post-void bladder scan. This measures any amount of urine that may remain in your bladder after you finish urinating. ? A digital rectal exam. In a rectal exam, your health care provider checks your prostate by putting a lubricated, gloved finger into your rectum to feel the back of your prostate gland. This exam detects the size of your gland and any abnormal lumps or growths. ? An exam of your urine (urinalysis). ? A prostate specific antigen (PSA) screening. This is a blood test used to screen for prostate cancer. ? An ultrasound. This test uses sound waves to electronically produce a picture of your prostate gland. Your health care provider may refer you to a specialist in kidney and prostate diseases (urologist). How is this treated? Once symptoms begin, your health care provider will monitor your condition (active surveillance or watchful waiting). Treatment for this condition will depend on the severity of your condition. Treatment may include: ? Observation and yearly exams. This may be the only treatment needed if your condition and symptoms are mild. ? Medicines to relieve your symptoms, including: ? Medicines to shrink the prostate. ? Medicines to relax the muscle of the prostate. ? Surgery in severe cases. Surgery may include: ? Prostatectomy. In this procedure, the prostate tissue is removed completely through an open incision or with a laparoscope or robotics. ? Transurethral resection of the prostate (TURP). In this procedure, a tool is inserted through the opening at the tip of the penis (urethra). It is used to cut away tissue of the inner core of the prostate. The pieces are removed through the same opening of the penis. This removes the blockage. ? Transurethral incision (TUIP). In this procedure, small cuts are made in the prostate. This lessens the prostate's pressure on the urethra. ? Transurethral microwave thermotherapy (TUMT). This procedure uses microwaves to create heat. The heat destroys and removes a small amount of prostate tissue. ? Transurethral needle ablation (TUNA). This procedure uses radio frequencies to destroy and remove a small amount of prostate tissue. ? Interstitial laser coagulation (ILC). This procedure uses a laser to destroy and remove a small amount of prostate tissue. ? Transurethral electrovaporization (TUVP). This procedure uses electrodes to destroy and remove a small amount of prostate tissue. ? Prostatic urethral lift. This procedure inserts an implant to push the lobes of the prostate away from the urethra. Follow these instructions at home: ? Take [id number] and prescription medicines only as told by your health care provider. ? Monitor your symptoms for any changes. Contact your health care provider with any changes. ? Avoid drinking large amounts of liquid before going to bed or out in public. ? Avoid or reduce how much caffeine or alcohol you drink. ? Give yourself time when you urinate. ? Keep all follow-up visits as told by your health care provider. This is important. Contact a health care provider if: ? You have unexplained back pain. ? Your symptoms do not get better with treatment. ? You develop geraldine (more content not included)... Normal [facility] Urology Office/Clinic Noteon 06-05-2022 Urology Office/Clinic Note Chief Complaint 6 month f/u HPI Staff Ignacio is a 76 y/o male here for a 6 month f/u. Previous DX: Personal hx of prostate cancer, BHP w/ obstruction, Microscopic hematuria, ED following radiation therapy. S/P Brachytherapy done 2011. Cystoscopy done 10/01/21. Dysuria: _denies Incomplete bladder emptying: _denies Hematuria: _denies Frequency: _he is on lasix had open heart surgery 3 months ago Urgency: _denies Nocturia: _1x Stream: _improved moderate Leaking: _denies Post void dripping: _denies Wearing pads/ Depends: denies_ Urge incontinence: _denies Stress incontinence: _denies Incontinence without Sensory Awareness: _denies Abdominal pain: _denies Flank pain: _denies Sexual complaints: _ History of Present Illness Tests Reviewed: Reviewed UA. I have reviewed and verified the staff HPI to be accurate for this encounter. I have reviewed the previous health record information and history for this patient from Dr. Huitron There have been no associated fever, chills, flank pain, or blood in the urine. Denies any urinary infections since last encounter. Review of Systems ROS - Provider Constitutional: denies weight loss, denies hot flashes. Eyes: denies eye problems. Gastrointestinal: denies nausea, denies vomiting. Cardiovascular: denies chest pain or angina. Integumentary: no dryness Musculoskeletal: denies musculoskeletal symptoms. ENMT: denies otolaryngeal symptoms. Respiratory: no shortness of breath. Heme/Lymph: denies easy bleeding tendency, denies easy bruising tendency. Psychiatric: no confusion, no anxiety. Genitourinary: see HPI Physical Exam Vitals & Measurements HR: 65(Peripheral) BP: 128/69 HT: 71 in HT: 180 cm WT: 87 kg WT: 191.4 lb BMI: 26.85 General Appearance: alert, no distress, well nourished, well developed male. Genitourinary: Flank Pain: none. Bladder: nonpalpable. Assessment/Plan 1. BPH with urinary obstruction (N40.1: Benign prostatic hyperplasia with lower urinary tract symptoms) IPSS 6 previous (4) UA today is clear/neg for any infections Currently taking Flomax 0.4mg qd therapy/ Myrbetriq 25mg therapy. Pt is having frequency but is currently on Lasix for open heart surgery he had 3 months ago. He is aware that Lasix therapy can cause frequency/urinary complaints. -Cont timed voiding -Discussed alternative medications to Myrbetriq, as he mentioned it is costly for him. He declined due to side effects -Botox was also suggested, but he is aware that he would have to have medical clearance and this therapy would have to be done in the future. -At this time pt will continue both Flomax and Myrbetriq therapy. All questions and concerns were discussed. Pt acknowledge and understands. Pt will call our office with any changes in urinary symptoms 2. Personal history of prostate cancer (Z85.46: Personal history of malignant neoplasm of prostate) S/P Brachytherapy done 2011 Last PSA on our record 09/13/20 <0.[address] Doyle, follows with him for management 3. Microscopic hematuria (R31.29: Other microscopic hematuria) UA today shows trace-intact blood Cystoscopy done 10/01/21 -negative for tumors Pt denies seeing any blood in his urine since last office encounter Pt is aware to monitor for gross hematuria, and if he develops any blood or blood clots in his urine he is to contact our office. 4. Anticoagulated (Z79.01: senior living (current) use of anticoagulants) Eliquis 5mg [id number] heart surgery/triple bypass a few months ago Elevated periop risk Follow-up With When Contact Information Tomy DUNN, Patience Salinas, URL, URO Within 6 months Additional Instructions: no labs Patient Education Benign Prostatic Hyperplasia I, Mandi Bernard, personally scribed for Dr. Huitron on 06/05/2022 11:05:23. . Documentation recorded by the scribe, Mandi Bernard, accurately reflects the services(s) I performed and decisions made by me. Authenticated by Dr. Huitron on 06/05/2022 18:03:38. 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 ED (erectile dysfunction) Heart attack Heart disease Microscopic hematuria Myocardial infarction Personal history of prostate cancer Prostate cancer Smoker Urinary urgency Historical No qualifying data Procedure/Surgical History Brachytherapy (2011), Cataract, Cataract, Colonoscopy. Medications aspirin 81 mg oral capsule, Oral, q4hr Centrum Silver, Oral, Daily Eliquis 5 mg oral tablet, Oral, BID Flomax 0.4 mg Cap, 0.4 mg= 1 cap(s), Oral, Daily, 3 refills furosemide 20 mg Tab, Oral, Daily ICaps with Lutein and Zeaxan oral tablet, Oral, Daily, Not taking Lipitor 80 mg Tab, Oral, Daily Myrbetriq 25 mg oral tablet, extended release, 25 mg= 1 tab(s), Oral, Daily, 6 refills tamsulosin 0.4 mg Cap, 0.4 mg= 1 cap(s), Oral, Daily, 3 refills, Not taking Toprol XL 50 (more content not included)... Normal [facility] Comment on above: Result Comment: Elec tronically Signed By: Tomy DUNN, Patience Salinas\.br\Date and Time Signed: 06/05/22 18:03 EST\.br\Electronically Co-Signed By: Mandi Bernard\.br\Date and Time Co-Signed: 06/05/22 11:05 EST 36on 06-04-2022 36 Does he need to restart potassium as well? Normal [facility] 36on 06-03-2022 36 Patient report to cardiac rehab staff today that he has gained 8# since stopped lasix last week when he saw you in the office. He denies any SOB. Any recommendations? Normal [facility] PROF 14(COMP METB)on 022 Albumin [Mass/Vol] 3.4 g/dL Normal 3.4-5.0 [facility] Comment on above: Performed By: #### H H #### [facility] [address] [place] [address] Dr. Yoselin Rivera Albumin/Globulin [Mass ratio] 1.0 {ratio} Normal [facility] Comment on above: Performed By: #### H H #### [facility] [address] [address] [address] Yoselin Rivera ALP [Catalytic activity/Vol] 79 U/L Normal 46-116 [facility] Comment on above: Performed By: #### H H #### [facility] [address] [address] [address] Yoselin Rivera ALT [Catalytic activity/Vol] 25 U/L Normal 16-63 [facility] Comment on above: Performed By: #### H H #### [facility] [address] [address] [address] Yoselin Rivera Anion gap [Moles/Vol] 10.7 mmol/L Normal [facility] Comment on above: Performed By: #### H H #### [facility] [address] [place] [address] Dr. Yoselin Rivera AST [Catalytic activity/Vol] 20 U/L Normal 15-37 [facility] Comment on above: Performed By: #### H H #### [facility] [address] [place] [address] Dr. Yoselin Rivera Bilirubin [Mass/Vol] 0.5 mg/dL Normal 0.2-1.0 [facility] Comment on above: Performed By: #### H H #### [facility] [address] [place] [address] Dr. Yoselin Rivera Calcium [Mass/Vol] 9.1 mg/dL Normal 8.5-10.1 [facility] Comment on above: Performed By: #### H H #### [facility] [address] [place] [address] Dr. Yoselin Rivera Chloride [Moles/Vol] 108 mmol/L Critically high 98-107 [facility] Comment on above: Performed By: #### H H #### [facility] [address] [address] [address] Yoselin Rivera CO2 [Moles/Vol] 28.8 mmol/L Normal 21.0-32.0 [facility] Comment on above: Performed By: #### H H #### [facility] [address] [address] [address] Yoselin Rivera Creatinine [Mass/Vol] 1.32 mg/dL Critically high 0.70-1.30 [facility] Comment on above: Performed By: #### H H #### [facility] [address] [address] [address] Yoselin Rivera EGFR-AF [place]DEAN >60 Normal >=60 [facility] Comment on above: Performed By: #### H H #### [facility] [address] [address] [address] Yoselin Rivera EGFR-NON AF [place] 53 mL/min/1.73m2 Critically low >=60 [facility] Comment on above: Performed By: #### H H #### [facility] [address] [address] [address] Yoselin Rivera Globulin (S) [Mass/Vol] 3.4 g/dL Normal [facility] Comment on above: Performed By: #### H H #### [facility] [address] [address] [address] Yoselin Rivera Glucose [Mass/Vol] 90 mg/dL Normal 74-106 [facility] Comment on above: Performed By: #### H H #### [facility] [address] [address] [address] Yoselin Rivera Potassium [Moles/Vol] 4.5 mmol/L Normal 3.5-5.1 [facility] Comment on above: Performed By: #### H H #### [facility] [address] [address] [address] Yoselin Rivera Protein [Mass/Vol] 6.8 g/dL Normal 6.4-8.2 [facility] [place] Comment on above: Performed By: #### H H #### [facility] [address] [place] [address] Dr. Yoselin Rivera Sodium [Moles/Vol] 143 mmol/L Normal 136-145 [facility] [place] Comment on above: Performed By: #### H H #### [facility] [address] [address] [address] Yoselin Rivera Urea nitrogen [Mass/Vol] 26.0 mg/dL Critically high 7.0-18.0 [facility] Comment on above: Performed By: #### H H #### [facility] [address] [address] [address] Yoselin Rivera Urea nitrogen/Creatinine [Mass ratio] 19.7 mg/mg Normal [facility] Comment on above: Performed By: #### H H #### [facility] [address] [address] [address] Yoselin Rivera Office Visiton 05-27-2022 Follow-up visit [id number] Hans Amin 1945 M Date Provider Department Center 05/27/2022 [facility] Family History Problem Relation Age of Onset Diabetes Mother Coronary artery disease Father Other Sister Family Status - Relation Status Age at Mother Father Sister Level of Service:48057 [place] OFFICE/OUTPATIENT ESTABLISHED LOW MDM 20-29 MIN Reason for Visit and Comments: Coronary Artery Disease [187] Normal [facility] FREE T4on 05-22-2022 Free T4 [Mass/Vol] 1.13 ng/dL Normal 0.76-1.46 [facility] Comment on above: Performed By: #### H H #### [facility] [address] [place] [address] Dr. Yoselin Rivera LIPID PROFILEon 05-22-2022 CHOL-HDL RATIO NORM SEE BELOW Normal [facility] Comment on above: Result Comment: 3.3 - 4.4 LOW RISK 4.4 - 7.1 AVERAGE RISK 7.1 - 11.0 MODERATE RISK >11.0 HIGH RISK Performed By: #### T SH, CMP, LIPID #### [facility] [address] [address] [address] Yoselin Rivera Cholesterol [Mass/Vol] 155 mg/dL Normal <=200 [facility] Comment on above: Performed By: #### T SH, CMP, LIPID #### [facility] [address] [address] [address] Yoselin Rivera Cholesterol in HDL [Mass/Vol] 48 mg/dL Normal 40-60 [facility] Comment on above: Performed By: #### T SH, CMP, LIPID #### [facility] [address] [address] [address] Yoselin Rivera Cholesterol in LDL [Mass/Vol] 72.8 mg/dL Normal [facility] Comment on above: Performed By: #### T SH, CMP, LIPID #### [facility] [address] [address] [address] Yoselin Rivera Cholesterol.total/Cho lesterol in HDL [Mass ratio] 3.2 {ratio} Normal [facility] Comment on above: Performed By: #### T SH, CMP, LIPID #### [facility] [address] [place] [address] Dr. Yoselin Rivera HDL NORMAL > or = 60 mg/dl - LO W CARDIOVASCULAR RISK <40 mg/dl - HIGH CARDIOVASCULAR RISK Normal [facility] Comment on above: Performed By: #### T SH, CMP, LIPID #### [facility] [address] [place] [address] Dr. Yoselin Rviera LDL CALC NORMAL SEE BELOW Normal [facility] Comment on above: Result Comment: <100 mg/dl OPTIMAL 100 - 129 mg/dl NEAR OR ABOVE OPTIMAL 130 - 159 mg/dl BORDERLINE HIGH 160 - 189 mg/dl HIGH >190 mg/dl VERY HIGH Performed By: #### T SH, CMP, LIPID #### [facility] [address] [address] [address] Yoselin Rivera Triglyceride [Mass/Vol] 171 mg/dL Critically high <=150 [facility] Comment on above: Performed By: #### T SH, CMP, LIPID #### [facility] [address] [place] [address] Dr. Yoselin Rivera VLDL CALC 34.2 mg/dL Normal [facility] Comment on above: Performed By: #### T SH, CMP, LIPID #### [facility] [address] [address] [address] Yoselin Rivera PROF 14(COMP METB)on 022 Albumin [Mass/Vol] 3.6 g/dL Normal 3.4-5.0 [facility] Comment on above: Performed By: #### T SH, CMP, LIPID #### [facility] [address] [address] [address] Yoselin Rivera Albumin/Globulin [Mass ratio] 1.0 {ratio} Normal [facility] Comment on above: Performed By: #### T SH, CMP, LIPID #### [facility] [address] [address] [address] Yoselin Rivera ALP [Catalytic activity/Vol] 86 U/L Normal 46-116 [facility] Comment on above: Performed By: #### T SH, CMP, LIPID #### [facility] [address] [address] [address] Yoselin Rivera ALT [Catalytic activity/Vol] 30 U/L Normal 16-63 [facility] Comment on above: Performed By: #### T SH, CMP, LIPID #### [facility] [address] [address] [address] Yoselin Rivera Anion gap [Moles/Vol] 7.9 mmol/L Normal [facility] Comment on above: Performed By: #### T SH, CMP, LIPID #### [facility] [address] [address] [address] Yoselin Rivera AST [Catalytic activity/Vol] 19 U/L Normal 15-37 [facility] Comment on above: Performed By: #### T SH, CMP, LIPID #### [facility] [address] [address] [address] Yoselin Rivera Bilirubin [Mass/Vol] 0.5 mg/dL Normal 0.2-1.0 [facility] Comment on above: Performed By: #### T SH, CMP, LIPID #### [facility] [address] [address] [address] Yoselin Rivera Calcium [Mass/Vol] 9.5 mg/dL Normal 8.5-10.1 [facility] Comment on above: Performed By: #### T SH, CMP, LIPID #### [facility] [address] [address] [address] Yoselin Rivera Chloride [Moles/Vol] 106 mmol/L Normal 98-107 [facility] Comment on above: Performed By: #### T SH, CMP, LIPID #### [facility] [address] [place] [address] Dr. Yoselin Rivera CO2 [Moles/Vol] 34.3 mmol/L Critically high 21.0-32.0 [facility] Comment on above: Performed By: #### T SH, CMP, LIPID #### [facility] [address] [place] [address] Dr. Yoselin Rivera Creatinine [Mass/Vol] 1.49 mg/dL Critically high 0.70-1.30 [facility] Comment on above: Performed By: #### T SH, CMP, LIPID #### [facility] [address] [place] [address] Dr. Yoselin Rivera EGFR-AF CAPE VERDEAN 56 mL/min/1.73m2 Critically low >=60 [facility] Comment on above: Performed By: #### T SH, CMP, LIPID #### [facility] [address] [place] [address] Dr. Yoselin Rivera EGFR-NON AF [place]DEAN 46 mL/min/1.73m2 Critically low >=60 [facility] Comment on above: Performed By: #### T SH, CMP, LIPID #### [facility] [address] [place] [address] Dr. Yoselin Rivera Globulin (S) [Mass/Vol] 3.7 g/dL Normal [facility] Comment on above: Performed By: #### T SH, CMP, LIPID #### [facility] [address] [place] [address] Dr. Yoselin Rivera Glucose [Mass/Vol] 107 mg/dL Critically high 74-106 [facility] Comment on above: Performed By: #### T SH, CMP, LIPID #### [facility] [address] [place] [address] Dr. Yoselin Rivera Potassium [Moles/Vol] 4.2 mmol/L Normal 3.5-5.1 [facility] Comment on above: Performed By: #### T SH, CMP, LIPID #### [facility] [address] [address] [address] Yoselin Rivera Protein [Mass/Vol] 7.3 g/dL Normal 6.4-8.2 [facility] [place] Comment on above: Performed By: #### T SH, CMP, LIPID #### [facility] [address] [address] [address] Yoselin Rivera Sodium [Moles/Vol] 144 mmol/L Normal 136-145 [facility] [place] Comment on above: Performed By: #### T GIACOMO, CMP, LIPID #### [facility] [address] [address] [address] Yoselin Rivera Urea nitrogen [Mass/Vol] 31.0 mg/dL Critically high 7.0-18.0 [facility] Comment on above: Performed By: #### T GIACOMO, CMP, LIPID #### [facility] [address] [place] [address] Dr. Yoselin Rivera Urea nitrogen/Creatinine [Mass ratio] 20.8 mg/mg Normal [facility] Comment on above: Performed By: #### T GIACOMO, CMP, LIPID #### [facility] [address] [address] [address] Yoselin Rivera TSHon 05-22-2022 TSH 4.222 uIU/mL Critically high 0.358-3.740 [facility] [place] Comment on above: Performed By: #### T GIACOMO, CMP, LIPID #### [facility] [address] [address] [address] Yoselin Rivera XR CHEST 2 Von 05-22-2022 XR CHEST 2 V EXAM: Frontal and lateral chest HISTORY: . Long-term current use of drug therapy . COMPARISON: None. TECHNIQUE: Frontal and lateral chest FINDINGS: Heart and vascularity are unremarkable. Pacer/defibrillator is noted. Lungs are free of focal infiltrates. Median sternotomy sutures are noted. Spondylosis of the spine is noted. IMPRESSION: 1. Pacer/defibrillator in place. 2. No acute heart or lung disease identified. Electronically authenticated by: IGNACIO JACKSON Date: 2022-05-22 08:39 Normal [facility] CBC AUTO DIFFon 04-26-2022 BASO # 0.1 103/ul Normal 0.0-0.1 [facility] Comment on above: Performed By: #### C BC #### [facility] [address] [place] [address] Dr. Yoselin Rivera Basophils/100 WBC (Bld) 0.9 % Normal 0.2-2.0 [facility] Comment on above: Performed By: #### C BC #### [facility] [address] [place] [address] Dr. Yoselin Rivera EO # 0.1 103/ul Normal 0.0-0.7 [facility] Comment on above: Performed By: #### C BC #### [facility] [address] [place] [address] Dr. Yoselin Rivera Eosinophils/100 WBC (Bld) 2.4 % Normal 0.9-7.0 [facility] Comment on above: Performed By: #### C BC #### [facility] [address] [place] [address] Dr. Yoselin Rivera Erythrocyte distribution width (RBC) [Ratio] 14.5 % Normal 11.0-15.0 [facility] Comment on above: Performed By: #### C BC #### [facility] [address] [place] [address] Dr. Yoselin Rivera Hematocrit (Bld) [Volume fraction] 36.4 % Critically low 42.0-54.0 [facility] Comment on above: Performed By: #### C BC #### [facility] [address] [place] [address] Dr. Yoselin Rivera Hemoglobin (Bld) [Mass/Vol] 11.9 g/dL Critically low 14.0-18.0 [facility] Comment on above: Performed By: #### C BC #### [facility] [address] [place] [address] Dr. Yoselin Rivera IG # 0.01 10e3/ul Normal 0.00-0.03 [facility] Comment on above: Performed By: #### C BC #### [facility] [address] [place] [address] Dr. Yoselin Rivera IG % 0.2 % Normal 0.0-0.5 [facility] Comment on above: Performed By: #### C BC #### [facility] [address] [place] [address] Dr. Yoselin Rivera LYMPH # 1.2 103/ul Normal 1.2-3.8 [facility] Comment on above: Performed By: #### C BC #### [facility] [address] [place] [address] Dr. Yoselin Rivera Lymphocytes/100 WBC (Bld) 21.1 % Normal 20.5-60.0 [facility] Comment on above: Performed By: #### C BC #### [facility] [address] [place] [address] Dr. Yoselin Rivera MANUAL DIFF REQ NO Normal [facility] Comment on above: Performed By: #### C BC #### [facility] [address] [place] [address] Dr. Yoselin Rivera MCH (RBC) [Entitic mass] 30.4 pg Normal 25.9-34.0 [facility] Comment on above: Performed By: #### C BC #### [facility] [address] [place] [address] Dr. Yoselin Rivera MCHC (RBC) [Mass/Vol] 32.7 g/dL Normal 29.9-35.2 [facility] Comment on above: Performed By: #### C BC #### [facility] [address] [place] [address] Dr. Yoselin Rivera MCV (RBC) [Entitic vol] 93.1 fL Normal 80.0-94.0 [facility] Comment on above: Performed By: #### C BC #### [facility] [address] [place] [address] Dr. Yoselin Rivera MONO # 0.6 103/ul Normal 0.3-0.8 [facility] Comment on above: Performed By: #### C BC #### [facility] [address] [place] [address] Dr. Yoselin Rivera Monocytes/100 WBC (Bld) 11.6 % Normal 1.7-12.0 [facility] Comment on above: Performed By: #### C BC #### [facility] [address] [address] [address] Yoselin Rivera NEUT # 3.5 103/ul Normal 1.4-6.5 [facility] Comment on above: Performed By: #### C BC #### [facility] [address] [address] [address] Yoselin Rivera Neutrophils/100 WBC (Bld) 63.8 % Normal 43.0-75.0 [facility] Comment on above: Performed By: #### C BC #### [facility] [address] [address] [address] Yoselin Rivera Platelet mean volume (Bld) [Entitic vol] 10.8 fL Normal 9.5-13.5 [facility] Comment on above: Performed By: #### C BC #### [facility] [address] [place] [address] Dr. Yoselin Rivera PLT 178 103/ul Normal 150-450 [facility] Comment on above: Performed By: #### C BC #### [facility] [address] [place] [address] Dr. Yoselin Rivera RBC 3.91 106/ul Critically low 4.70-6.10 [facility] Comment on above: Performed By: #### C BC #### [facility] [address] [place] [address] Dr. Yoselin Rivera WBC 5.4 103/ul Normal 4.0-11.0 [facility] Comment on above: Performed By: #### C BC #### [facility] [address] [place] [address] Dr. Yoselin Rivera PROF CHEM 8 (BAS METB)on Anion gap [Moles/Vol] 6.6 mmol/L Normal [facility] Comment on above: Performed By: #### B MP #### [facility] [address] [address] [address] Yoselin Rivera Calcium [Mass/Vol] 9.3 mg/dL Normal 8.5-10.1 [facility] Comment on above: Performed By: #### B MP #### [facility] [address] [address] [address] Yoselin Rivera Chloride [Moles/Vol] 105 mmol/L Normal 98-107 [facility] Comment on above: Performed By: #### B MP #### [facility] [address] [address] [address] Yoselin Rivera CO2 [Moles/Vol] 32.8 mmol/L Critically high 21.0-32.0 [facility] Comment on above: Performed By: #### B MP #### [facility] [address] [address] [address] Yoselin Rivera Creatinine [Mass/Vol] 1.59 mg/dL Critically high 0.70-1.30 [facility] Comment on above: Performed By: #### B MP #### [facility] [address] [address] [address] Yoselin Rivera EGFR-AF [place] 52 mL/min/1.73m2 Critically low >=60 [facility] Comment on above: Performed By: #### B MP #### [facility] [address] [address] [address] Yoselin Rivera EGFR-NON AF [place] 43 mL/min/1.73m2 Critically low >=60 [facility] Comment on above: Performed By: #### B MP #### [facility] [address] [address] [address] Yoselin Rivera Glucose [Mass/Vol] 88 mg/dL Normal 74-106 [facility] [place] Comment on above: Performed By: #### B MP #### [facility] [address] [address] [address] Yoselin Rivera Potassium [Moles/Vol] 4.4 mmol/L Normal 3.5-5.1 [facility] Comment on above: Performed By: #### B MP #### [facility] [address] [address] [address] Yoselin Rivera Sodium [Moles/Vol] 140 mmol/L Normal 136-145 [facility] [place] Comment on above: Performed By: #### B MP #### [facility] [address] [place], [place] [address] Dr. Yoselin Rivera Urea nitrogen [Mass/Vol] 37.0 mg/dL Critically high 7.0-18.0 [facility] Comment on above: Performed By: #### B MP #### [facility] [address] [place], [place] [address] Dr. Yoselin Rivera Urea nitrogen/Creatinine [Mass ratio] 23.3 mg/mg Normal [facility] Comment on above: Performed By: #### B MP #### [facility] [address] [place], [place] [address] Dr. Yoselin Rivera BASIC METABOLIC PANELon Calcium [Mass/Vol] 9.5 mg/dL Normal 8.6-10.3 [facility] Comment on above: Order Comment: evalu ate for Effusion Performed By: #### 0 0071 ####[facility] [facility] [place] [address], [facility] Chloride [Moles/Vol] 99 mmol/L Normal 98-107 [facility] Comment on above: Order Comment: evalu ate for Effusion Performed By: #### 0 0071 ####[facility] [facility] [place] [address], [facility] CO2 [Moles/Vol] 28 mmol/L Normal 21-31 [facility] Comment on above: Order Comment: evalu ate for Effusion Performed By: #### 0 0071 ####[facility] [facility] [place] [address], [facility] Creatinine [Mass/Vol] 1.51 mg/dL High 0.70-1.30 [facility] Comment on above: Order Comment: evalu ate for Effusion Performed By: #### 0 0071 ####[facility] [facility] [place] [address], [facility] EGFR 48 ml/min/1.73sq m Abnormal >60 [facility] Comment on above: Order Comment: evalu ate for Effusion Result Comment: The [facility]'s estimated glomerular filtration rate (eGFR) will no longer include consideration of race in its calculation. The National Kidney Foundation's eGFR Task Force developed new recommendations for the estimation of the glomerular filtration rate in the [place] They recommend immediate implementation of the new equation refit without the race variable in all laboratories because the calculation does not include race. In addition to not including race in the calculation and reporting, it included diversity in its development, and has acceptable performance characteristics and potential consequences that do not disproportionately affect any one group of individuals. Performed By: #### 0 0071 ####[facility] [place] [address], [facility] Glucose [Mass/Vol] 129 mg/dL High 70-100 [facility] Comment on above: Order Comment: evalu ate for Effusion Performed By: #### 0 0071 ####[address] [id number] Potassium [Moles/Vol] 3.4 mmol/L Low 3.5-5.1 [facility] Comment on above: Order Comment: evalu ate for Effusion Performed By: #### 0 0071 ####[address] [place] [address], [facility] Sodium [Moles/Vol] 138 mmol/L Normal 136-145 [facility] Comment on above: Order Comment: evalu ate for Effusion Performed By: #### 0 0071 ####[address] [place] [address], [facility] Urea nitrogen [Mass/Vol] 71 mg/dL High 7-25 [facility] Comment on above: Order Comment: evalu ate for Effusion Performed By: #### 0 0071 ####[address] POC SARS COV2 ANTIGEN NEGATI VEon 02-28-2022 POC SARS COV2 ANTIGEN NEG Negative Normal NEGATIVE [facility] Comment on above: Result Comment: Nega tive results should be treated as presumptive and confirmation with a molecular assay, if necessary, for patient management, may be performed. Negative results do not rule out SARS-CoV-2 infection and not should be used as the sole basis for treatment or patient management decisions, including infection control decisions. Negative results should be considered in the context of a patient's recent exposures, history, and the presence of clinical signs and symptoms consistent with COVID-19. The [employer] COVID-19 Antigen Rapid Test Cassette is a rapid chromatographic immunoassay intended for the qualitative detection of the nucleocapsid protein antigen from SARS-CoV-2 in direct nasopharyngeal swab ([employer]) specimens from individuals who are suspected of COVID-19 by their healthcare provider within the first six days of symptom onset. Testing is limited to laboratories certified under the Clinical Laboratory Improvement Amendments of 1988 (CLIA), 42 U.S.C. ???263a, that meet the requirements to perform moderate complexity, high complexity, or waived tests. This test is authorized for use at the Point of Care (POC), i.e., in patient care settings operating under a CLIA Certificate of Waiver, Certificate of Compliance, or Certificate of Accreditation. Performed By: #### 3 [id number] #### [facility] [address] BASIC METABOLIC PANELon 09-0 7-2021 Calcium [Mass/Vol] 9.4 mg/dL Normal 8.6-10.3 [facility] Comment on above: Order Comment: Check Chest Tube Position, ON ARRIVAL TO CVU Performed By: #### 4 1000, 91627, 98274 ####[facility] [place] [address], [facility] Chloride [Moles/Vol] 98 mmol/L Normal 98-107 [facility] Comment on above: Order Comment: Check Chest Tube Position, ON ARRIVAL TO CVU Performed By: #### 4 1000, 41582, 50316 ####[facility] [place] [address], [facility] CO2 [Moles/Vol] 28 mmol/L Normal 21-31 [facility] Comment on above: Order Comment: Check Chest Tube Position, ON ARRIVAL TO CVU Performed By: #### 4 1000, 38946, 81287 ####[facility] [place] [address], [facility] Creatinine [Mass/Vol] 1.63 mg/dL High 0.70-1.30 [facility] Comment on above: Order Comment: Check Chest Tube Position, ON ARRIVAL TO CVU Performed By: #### 4 1000, , 84865 ####[facility] [place] [address], [place] EGFR 44 ml/min/1.73sq m Abnormal >60 [facility] Comment on above: Order Comment: Check Chest Tube Position, ON ARRIVAL TO CVU Result Comment: The [facility]'s estimated glomerular filtration rate (eGFR) will no longer include consideration of race in its calculation. The National Kidney Foundation's eGFR Task Force developed new recommendations for the estimation of the glomerular filtration rate in the [place] They recommend immediate implementation of the new equation refit without the race variable in all laboratories because the calculation does not include race. In addition to not including race in the calculation and reporting, it included diversity in its development, and has acceptable performance characteristics and potential consequences that do not disproportionately affect any one group of individuals. Performed By: #### 4 1000, , 64406 ####[facility] [place] [address], [place] Glucose [Mass/Vol] 118 mg/dL High 70-100 [facility] Comment on above: Order Comment: Check Chest Tube Position, ON ARRIVAL TO CVU Performed By: #### 4 1000, , [id number] ####[facility] [place] [address], [place] Potassium [Moles/Vol] 3.6 mmol/L Normal 3.5-5.1 [facility] Comment on above: Order Comment: Check Chest Tube Position, ON ARRIVAL TO CVU Performed By: #### 4 1000, , 86332 ####[facility] [place] [address], [place] Sodium [Moles/Vol] 137 mmol/L Normal 136-145 [facility] Comment on above: Order Comment: Check Chest Tube Position, ON ARRIVAL TO CVU Performed By: #### 4 1000, 98075, 97786 ####[facility] [place] [address], [facility] Urea nitrogen [Mass/Vol] 77 mg/dL High 7-25 [facility] Comment on above: Order Comment: Check Chest Tube Position, ON ARRIVAL TO CVU Performed By: #### 4 1000, 83330, [id number] ####[facility] CBC COMPLETE BLOOD COUNTon 0 02-27-2022 Erythrocyte distribution width (RBC) [Ratio] 14.8 % Normal 11.5-15.0 [facility] Comment on above: Order Comment: No: D o not add to previous draw Performed By: #### 5 0608 #### [facility] [address] [place] [address], [facility] Hematocrit (Bld) [Volume fraction] 30.2 % Low 39.0-50.0 [facility] Comment on above: Order Comment: No: D o not add to previous draw Performed By: #### 5 0608 #### [facility] [address] [place] [address], [facility] Hemoglobin (Bld) [Mass/Vol] 10.2 g/dL Low 13.0-17.0 [facility] Comment on above: Order Comment: No: D o not add to previous draw Performed By: #### 5 0608 #### [facility] [address] [place] [id number], [facility] MCH (RBC) [Entitic mass] 30.9 pg Normal 27.0-33.0 [facility] Comment on above: Order Comment: No: D o not add to previous draw Performed By: #### 5 0608 #### [facility] [address] MCHC (RBC) [Mass/Vol] 33.8 g/dL Normal 32.0-35.0 [facility] Comment on above: Order Comment: No: D o not add to previous draw Performed By: #### 5 0608 #### [facility] [address] [place] [address], [facility] MCV (RBC) [Entitic vol] 91.5 fL Normal 82.0-98.0 [facility] Comment on above: Order Comment: No: D o not add to previous draw Performed By: #### 5 0608 #### [facility] [address] [place] [address], [facility] Nucleated RBC/100 WBC (Bld) [Ratio] 0 % Normal 0-0 [facility] Comment on above: Order Comment: No: D o not add to previous draw Performed By: #### 5 0608 #### [facility] [address] [place] [address], [facility] PLAT CNT 176 10*3/uL Normal 150-400 [facility] Comment on above: Order Comment: No: D o not add to previous draw Performed By: #### 5 0608 #### [facility] [address] [place] [address], [facility] RBC (Bld) [#/Vol] 3.30 10*6/uL Low 4.20-5.70 [facility] Comment on above: Order Comment: No: D o not add to previous draw Performed By: #### 5 0608 #### [facility] [address] [facility] [place] [address], [facility] WBC (Bld) [#/Vol] 6.82 10*3/uL Normal 4.00-10.60 [facility] Comment on above: Order Comment: No: D o not add to previous draw Performed By: #### 5 0608 #### [facility] [address] [place] [address], [facility] Cardiovascular Lab Reporton 09-07-2022 Cardiovascular Lab Report [facility] Patient Name: Ignacio Amin [facility] E MR #: [id number] Department of Physician: Nora Saxena M.D. Division of Service Date: 02/27/2022 Cardiology Birthdate: 1945 Adult Cardiovascular Room #: [id number] [facility] [address] [facility]. [place], [place] [address] Cardiovascular Laboratory Report PROCEDURE: Transesophageal echocardiogram and cardioversion. INDICATION: Atrial fibrillation. FELLOW: Amanda Engel MD. PROCEDURE IN DETAIL: An informed consent was obtained from the patient after explaining the indication, risk and benefits, and alternatives. The patient understood, and agreed, and signed the consent form. The patient was brought to the sanitation laborer and FARHEEN (transesophageal echocardiogram) was performed under conscious sedation. The patient obtained a total of 4 mg of versed and 75 mcg of Fentanyl during the procedure. Transesophageal echocardiogram did not show any thrombus in the left atrial appendage. Full FARHEEN reported elsewhere. After the transesophageal echocardiogram, the synchronized biphasic cardioversion was done with 360 joules of energy. The patient successfully converted to sinus rhythm as evidence by the EKG done postprocedure. No complications throughout the procedure. Electronically Signed by: Romi Young M.D. 03/02/2022 02:46 P Romi Young M.D. I was present for the entire procedure. Date Dict: 02/27/2022/01:57 P/Amanda Engel MD Date Trans: 02/27/2022 02:37 P/suzieo [id number] Normal [facility] MAGNESIUM BLOODon 02-27-2022 Magnesium [Mass/Vol] 2.6 mg/dL Normal 1.9-2.7 [facility] Comment on above: Order Comment: Check Chest Tube Position, ON ARRIVAL TO CVU Performed By: #### 4 0511, 27389, 11214 ####[facility] [facility] [place] [address], [facility] PHOSPHORUS BLOODon Phosphate [Mass/Vol] 4.7 mg/dL Normal 2.5-5.0 [facility] Comment on above: Order Comment: Check Chest Tube Position, ON ARRIVAL TO CVU Performed By: #### 4 1000, 03205, 84192 ####[facility] [place] [address], [facility] PORTABLE CHEST 1 VIEWon PORTABLE CHEST 1 VIEW [facility] Department of Radiology [address] [place] [address] ======== Patient Name: IGNACIO AMIN : 1945 Sex: M Age: Race: White Pt. Location: [place] [address] Patient Status: I Ordered Date: 02/27/2022 5:00:00 AM Completed Date: 02/27/2022 07:17 AM Requesting Provider: CHRISSY HERNANDEZ Attending Provider: CHRISTINAE OLSON Report Copy To: Signs & Symptoms: Shortness of Breath History: Comments: evaluate for Effusion Exam: PORTABLE CHEST 1 VIEW ======== PORTABLE CHEST 1 VIEW 02/27/2022 7:17 AM CLINICAL INDICATIONS: Shortness of Breath TECHNOLOGIST COMMENTS: respiratory distress QUESTION FOR THE RADIOLOGIST: evaluate for Effusion PROTOCOL: AP(PA) view was obtained. COMPARISON: 02/27/2020 FINDINGS: Stable Cardia mediastinal sweat. Small right pleural effusion with right lower lung atelectasis or pneumonia. Mild vascular congestion and edema. Stable pacemaker device. Right jugular catheter has been removed. IMPRESSION: No significant change with stable appearance of the chest. Electronically signed: Mahesh Sanchez. Transcribed by: [email or web address], User Resident: Electronically Signed by: MAHESH SANCHEZ @ 02/27/2022 07:47 AM Normal [facility] Comment on above: Order Comment: Check Chest Tube Position, ON ARRIVAL TO CVU BASIC METABOLIC PANELon Calcium [Mass/Vol] 9.3 mg/dL Normal 8.6-10.3 [facility] Comment on above: Order Comment: Check Chest Tube Position, ON ARRIVAL TO CVU Performed By: #### 0 0071, 26677, 27882 ####[facility] [place] [address], [facility] Chloride [Moles/Vol] 98 mmol/L Normal 98-107 [facility] Comment on above: Order Comment: Check Chest Tube Position, ON ARRIVAL TO CVU Performed By: #### 0 0071, 08390, 71387 ####[facility] [place] [address], [place] CO2 [Moles/Vol] 29 mmol/L Normal 21-31 [facility] Comment on above: Order Comment: Check Chest Tube Position, ON ARRIVAL TO CVU Performed By: #### 0 0071, 23286, 84661 ####[facility] [place] [address], [place] Creatinine [Mass/Vol] 2.10 mg/dL High 0.70-1.30 [facility] Comment on above: Order Comment: Check Chest Tube Position, ON ARRIVAL TO CVU Performed By: #### 0 0071, 78878, 37437 ####[facility] [place] [address], [place] EGFR 32 ml/min/1.73sq m Abnormal >60 [facility] Comment on above: Order Comment: Check Chest Tube Position, ON ARRIVAL TO CVU Result Comment: [facility]'s estimated glomerular filtration rate (eGFR) will no longer include consideration of race in its calculation. The National Kid[employer] Foundation's eGFR Task Force developed new recommendations for the estimation of the glomerular filtration rate in the [place] They recommend immediate implementation of the new equation refit without the race variable in all laboratories because the calculation does not include race. In addition to not including race in the calculation and reporting, it included diversity in its development, and has acceptable performance characteristics and potential consequences that do not disproportionately affect any one group of individuals. Performed By: #### 0 0071, 70097, 81288 ####[facility] [place] [address], [facility] Glucose [Mass/Vol] 115 mg/dL High 70-100 [facility] Comment on above: Order Comment: Check Chest Tube Position, ON ARRIVAL TO CVU Performed By: #### 0 0071, 71708, 07500 ####[facility] [place] [address], [facility] Potassium [Moles/Vol] 4.7 mmol/L Normal 3.5-5.1 [facility] Comment on above: Order Comment: Check Chest Tube Position, ON ARRIVAL TO CVU Performed By: #### 0 0071, 42486, 29836 ####[facility] [place] [address], [place] Sodium [Moles/Vol] 137 mmol/L Normal 136-145 [facility] Comment on above: Order Comment: Check Chest Tube Position, ON ARRIVAL TO CVU Performed By: #### 0 0071, 35576, 10189 ####[facility] [place] [address], [place] Urea nitrogen [Mass/Vol] 80 mg/dL High 7-25 [facility] Comment on above: Order Comment: Check Chest Tube Position, ON ARRIVAL TO CVU Performed By: #### 0 0071, 56068, 15579 ####[facility] CBC COMPLETE BLOOD COUNTon 0 02-26-2022 Erythrocyte distribution width (RBC) [Ratio] 14.8 % Normal 11.5-15.0 [facility] Comment on above: Order Comment: No: D o not add to previous draw Performed By: #### 5 0608 #### [facility] [address] [place] [address], [facility] Hematocrit (Bld) [Volume fraction] 29.0 % Low 39.0-50.0 [facility] Comment on above: Order Comment: No: D o not add to previous draw Performed By: #### 5 0608 #### [facility] [address] Hemoglobin (Bld) [Mass/Vol] 9.6 g/dL Low 13.0-17.0 [facility] Comment on above: Order Comment: No: D o not add to previous draw Performed By: #### 5 0608 #### [facility] [address] [place] [address], [facility] IMM PLATELET FRAC 6.2 % Normal 0.8-6.3 [facility] Comment on above: Order Comment: No: D o not add to previous draw Performed By: #### 5 0608 #### [facility] [address] [place] [address], [facility] MCH (RBC) [Entitic mass] 30.4 pg Normal 27.0-33.0 [facility] Comment on above: Order Comment: No: D o not add to previous draw Performed By: #### 5 0608 #### [facility] [address] [place] [address], [facility] MCHC (RBC) [Mass/Vol] 33.1 g/dL Normal 32.0-35.0 [facility] Comment on above: Order Comment: No: D o not add to previous draw Performed By: #### 5 0608 #### [facility] [address] [place] [address], [facility] MCV (RBC) [Entitic vol] 91.8 fL Normal 82.0-98.0 [facility] Comment on above: Order Comment: No: D o not add to previous draw Performed By: #### 5 0608 #### [facility] [address] [place] [address], [facility] Nucleated RBC/100 WBC (Bld) [Ratio] 0 % Normal 0-0 [facility] Comment on above: Order Comment: No: D o not add to previous draw Performed By: #### 5 0608 #### [facility] [address] [facility] [place] [address], [facility] PLAT CNT 137 10*3/uL Low 150-400 [facility] Comment on above: Order Comment: No: D o not add to previous draw Performed By: #### 5 0608 #### [facility] [address] [facility] [place] [address], [facility] RBC (Bld) [#/Vol] 3.16 10*6/uL Low 4.20-5.70 [facility] Comment on above: Order Comment: No: D o not add to previous draw Performed By: #### 5 0608 #### [facility] [address] [facility] [place] [address], [facility] WBC (Bld) [#/Vol] 7.11 10*3/uL Normal 4.00-10.60 [facility] Comment on above: Order Comment: No: D o not add to previous draw Performed By: #### 5 0608 #### [facility] [address] [facility] [facility] [facility] [place] [address], [facility] MAGNESIUM BLOODon 02-26-2022 Magnesium [Mass/Vol] 2.4 mg/dL Normal 1.9-2.7 [facility] Comment on above: Order Comment: Check Chest Tube Position, ON ARRIVAL TO CVU Performed By: #### 0 0071, 52608, 94376 ####[facility] [place] [address], [facility] PHOSPHORUS BLOODon Phosphate [Mass/Vol] 5.2 mg/dL High 2.5-5.0 [facility] Comment on above: Order Comment: Check Chest Tube Position, ON ARRIVAL TO CVU Performed By: #### 0 0071, 71699, 92399 ####[facility] [place] [address], [facility] PORTABLE CHEST 1 VIEWon PORTABLE CHEST 1 VIEW [facility] Department of Radiology [address] [place] [address] ======== Patient Name: IGNACIO AMIN : 1945 Sex: M Age: Race: White Pt. Location: [place] [address] Patient Status: I Ordered Date: 02/26/2022 5:00:00 AM Completed Date: 02/26/2022 06:58 AM Requesting Provider: CHRISSY HERNANDEZ Attending Provider: CHRISTIANE OLSON Report Copy To: Signs & Symptoms: Post OP History: Comments: evaluate for Effusion Exam: PORTABLE CHEST 1 VIEW ======== PORTABLE CHEST 1 VIEW 02/26/2022 6:58 AM CLINICAL INDICATIONS: Post OP TECHNOLOGIST COMMENTS: SOB QUESTION FOR THE RADIOLOGIST: evaluate for Effusion PROTOCOL: AP(PA) view was obtained. COMPARISON: 02/25/2022 FINDINGS: There is mild to moderate facet congestion and edema. Stable cardiomegaly with pacemaker fibular device. Retrograde catheter tip in SVC. IMPRESSION: Stable slightly increasing pulmonary vascular congestion and edema with small pleural effusions. Electronically signed: Mahesh Sanchez. Transcribed by: [email or web address], User Resident: Electronically Signed by: MAHESH SANCHEZ @ 02/26/2022 02:50 PM Normal [facility] Comment on above: Order Comment: evalu ate for Effusion US RENAL WITH BLADDERon 09- US RENAL WITH BLADDER [facility] Department of Radiology [address] [place] [address] ======== Patient Name: IGNACIO AMIN : 1945 Sex: M Age: Race: White Pt. Location: [place] [address] Patient Status: I Ordered Date: 02/23/2022 12:10:00 PM Completed Date: 02/26/2022 06:15 PM Requesting Provider: MANUELITO WARE Attending Provider: CHRISTIANE OLSON Report Copy To: Signs & Symptoms: Decreased Urine Output/Anuria History: See Comments Comments: Other Exam: US RENAL WITH BLADDER ======== US RENAL WITH BLADDER 02/26/2022 6:15 PM CLINICAL INDICATIONS: Decreased Urine Output/Anuria TECHNOLOGIST COMMENTS: QUESTION FOR THE RADIOLOGIST: Other COMPARISON: None. FINDINGS: Right kidney measures 11.2 x 6.6 x 6.1 cm. This cortex 1 cm. Cystic area mid pole measuring 2 1.8 x 1.2 cm requiring no further follow-up. No hydronephrosis. Left kidney measures 11.5 x 6.5 x 5.8 cm. Cortex is 1.1 cm. Cystic areas laterally with the largest measuring 2.5 x 2.4 x 2.3 cm requiring no follow-up. No hydronephrosis. The urinary bladder is morphologically normal. No free fluid is seen in the pelvis. Before voiding, the bladder measures 7 x 2.2 x 4.4 cm, which corresponds to an estimated volume of 36 mL . After voiding, the bladder measures cm, which corresponds to an estimated volume of .mL IMPRESSION: Kidneys are largely unremarkable with no hydronephrosis. No solid mass. Incidental cyst noted. Electronically signed: Dennis Michel. Transcribed by: [email or web address], User Resident: Electronically Signed by: DENNIS MICHEL @ 02/26/2022 09:36 PM Normal [facility] Comment on above: Order Comment: Other BASIC METABOLIC PANELon 09-0 Chloride [Moles/Vol] 97 mmol/L Low 98-107 [facility] Comment on above: Order Comment: Evalu ate for Pneumothorax Performed By: #### 1 0070, 58213, 16958 ####[facility] [facility] CO2 [Moles/Vol] 29 mmol/L Normal 21-31 [facility] Comment on above: Order Comment: Evalu ate for Pneumothorax Performed By: #### 1 0070, 33371, 15694 ####[facility] Creatinine [Mass/Vol] 2.05 mg/dL High 0.70-1.30 [facility] Comment on above: Order Comment: Evalu ate for Pneumothorax Performed By: #### 1 0070, 63150, 55806 ####[facility] EGFR 33 ml/min/1.73sq m Abnormal >60 [facility] Comment on above: Order Comment: Evalu ate for Pneumothorax Result Comment: [facility]'s estimated glomerular filtration rate (eGFR) will no longer include consideration of race in its calculation. The National Kidney Foundation's eGFR Task Force developed new recommendations for the estimation of the glomerular filtration rate in the [place] They recommend immediate implementation of the new equation refit without the race variable in all laboratories because the calculation does not include race. In addition to not including race in the calculation and reporting, it included diversity in its development, and has acceptable performance characteristics and potential consequences that do not disproportionately affect any one group of individuals. Performed By: #### 1 0070, 39420, 60717 ####[facility] [place] [address], [facility] Glucose [Mass/Vol] 131 mg/dL High 70-100 [facility] Comment on above: Order Comment: Evalu ate for Pneumothorax Performed By: #### 1 0, 51206, 70540 ####[facility] [place] [address], [facility] Potassium [Moles/Vol] 3.5 mmol/L Normal 3.5-5.1 [facility] Comment on above: Order Comment: Evalu ate for Pneumothorax Performed By: #### 1 0, 03426, 57509 ####[facility] [place] [address], [facility] Sodium [Moles/Vol] 137 mmol/L Normal 136-145 [facility] Comment on above: Order Comment: Evalu ate for Pneumothorax Performed By: #### 1 0, 94599, 56414 ####[facility] [place] [address], [place] Urea nitrogen [Mass/Vol] 75 mg/dL High 7-25 [facility] Comment on above: Order Comment: Evalu ate for Pneumothorax Performed By: #### 1 0, 00001, 49981 ####[facility] [place] [address], [place] Calcium [Mass/Vol] 9.0 mg/dL Normal 8.6-10.3 [facility] Comment on above: Order Comment: Evalu ate for Pneumothorax Performed By: #### 1 0070, 72259, 26176 ####[facility] [facility].[address] Order Comment: Check Chest Tube Position, ON ARRIVAL TO CVU Performed By: #### 4 1000, 23378, 67842 ####[facility] [place] [address], [facility] Chloride [Moles/Vol] 96 mmol/L Low 98-107 [facility] Comment on above: Order Comment: Check Chest Tube Position, ON ARRIVAL TO CVU Performed By: #### 4 1000, 20517, 37314 ####[facility] [place] [address], [facility] CO2 [Moles/Vol] 27 mmol/L Normal 21-31 [facility] Comment on above: Order Comment: Check Chest Tube Position, ON ARRIVAL TO CVU Performed By: #### 4 1000, 50749, 37230 ####[facility] Creatinine [Mass/Vol] 2.09 mg/dL High 0.70-1.30 [facility] Comment on above: Order Comment: Check Chest Tube Position, ON ARRIVAL TO CVU Performed By: #### 4 1000, 35959, 34102 ####[facility] [facility].[address] EGFR 32 ml/min/1.73sq m Abnormal >60 [facility] Comment on above: Order Comment: Check Chest Tube Position, ON ARRIVAL TO CVU Result Comment: [facility]'s estimated glomerular filtration rate (eGFR) will no longer include consideration of race in its calculation. The National Kidney Foundation's eGFR Task Force developed new recommendations for the estimation of the glomerular filtration rate in the [place] They recommend immediate implementation of the new equation refit without the race variable in all laboratories because the calculation does not include race. In addition to not including race in the calculation and reporting, it included diversity in its development, and has acceptable performance characteristics and potential consequences that do not disproportionately affect any one group of individuals. Performed By: #### 4 1000, 18794, 28341 ####[facility] [address], [place] Glucose [Mass/Vol] 120 mg/dL High 70-100 [facility] Comment on above: Order Comment: Check Chest Tube Position, ON ARRIVAL TO CVU Performed By: #### 4 1000, , 17111 ####[facility] [place] [address], [place] Potassium [Moles/Vol] 3.7 mmol/L Normal 3.5-5.1 [facility] Comment on above: Order Comment: Check Chest Tube Position, ON ARRIVAL TO CVU Performed By: #### 4 1000, , 85098 ####[facility] [place] [address], [place] Sodium [Moles/Vol] 135 mmol/L Low 136-145 [facility] Comment on above: Order Comment: Check Chest Tube Position, ON ARRIVAL TO CVU Performed By: #### 4 1000, , 35520 ####[facility] [place] [address], [place] Urea nitrogen [Mass/Vol] 67 mg/dL High 7-25 [facility] Comment on above: Order Comment: Check Chest Tube Position, ON ARRIVAL TO CVU Performed By: #### 4 1000, , 28646 ####[facility] [place] [address], [place] Calcium [Mass/Vol] 9.2 mg/dL Normal 8.6-10.3 [facility] Comment on above: Order Comment: No: D o not add to previous draw Criteria for reflexing a culture was not met. Please call the lab at [phone] within 24 hours of collection time if culture is needed Performed By: #### 3 9065 #### [facility] [address] [place] [address], [facility] Chloride [Moles/Vol] 96 mmol/L Low 98-107 [facility] Comment on above: Order Comment: No: D o not add to previous draw Criteria for reflexing a culture was not met. Please call the lab at [phone] within 24 hours of collection time if culture is needed Performed By: #### 3 0965 #### [facility] [address] [place] [address], [facility] CO2 [Moles/Vol] 27 mmol/L Normal 21-31 [facility] Comment on above: Order Comment: No: D o not add to previous draw Criteria for reflexing a culture was not met. Please call the lab at [phone] within 24 hours of collection time if culture is needed Performed By: #### 3 0965 #### [facility] [address] [place] [address], [facility] Creatinine [Mass/Vol] 2.13 mg/dL High 0.70-1.30 [facility] [facility] Comment on above: Order Comment: No: D o not add to previous draw Criteria for reflexing a culture was not met. Please call the lab at [phone] within 24 hours of collection time if culture is needed Performed By: #### 3 0965 #### [facility] [address] EGFR 32 ml/min/1.73sq m Abnormal >60 [facility] Comment on above: Order Comment: No: D o not add to previous draw Criteria for reflexing a culture was not met. Please call the lab at [phone] within 24 hours of collection time if culture is needed Result Comment: The [facility]'s estimated glomerular filtration rate (eGFR) will no longer include consideration of race in its calculation. The National Kid[employer] Foundation's eGFR Task Force developed new recommendations for the estimation of the glomerular filtration rate in the [place] They recommend immediate implementation of the new equation refit without the race variable in all laboratories because the calculation does not include race. In addition to not including race in the calculation and reporting, it included diversity in its development, and has acceptable performance characteristics and potential consequences that do not disproportionately affect any one group of individuals. Performed By: #### 3 0965 #### [facility] [address] [place] [address], [facility] Glucose [Mass/Vol] 96 mg/dL Normal 70-100 [facility] Comment on above: Order Comment: No: D o not add to previous draw Criteria for reflexing a culture was not met. Please call the lab at [phone] within 24 hours of collection time if culture is needed Performed By: #### 3 0965 #### [facility] [address] [place] [address], [facility] Potassium [Moles/Vol] 3.9 mmol/L Normal 3.5-5.1 [facility] Comment on above: Order Comment: No: D o not add to previous draw Criteria for reflexing a culture was not met. Please call the lab at [phone] within 24 hours of collection time if culture is needed Performed By: #### 3 0965 #### [facility] [address] [place] [address], [facility] Sodium [Moles/Vol] 134 mmol/L Low 136-145 [facility] Comment on above: Order Comment: No: D o not add to previous draw Criteria for reflexing a culture was not met. Please call the lab at [phone] within 24 hours of collection time if culture is needed Performed By: #### 3 0965 #### [facility] [address] [place] [address], [facility] Urea nitrogen [Mass/Vol] 67 mg/dL High 7-25 [facility] Comment on above: Order Comment: No: D o not add to previous draw Criteria for reflexing a culture was not met. Please call the lab at [phone] within 24 hours of collection time if culture is needed Performed By: #### 3 0965 #### [facility] [address] [place] [address], [facility] CBC COMPLETE BLOOD COUNTon 0 - Erythrocyte distribution width (RBC) [Ratio] 14.7 % Normal 11.5-15.0 [facility] Comment on above: Order Comment: Check Chest Tube Position, ON ARRIVAL TO CVU Performed By: #### 5 0608 ####[facility] Hematocrit (Bld) [Volume fraction] 28.2 % Low 39.0-50.0 [facility] Comment on above: Order Comment: Check Chest Tube Position, ON ARRIVAL TO CVU Performed By: #### 5 0608 ####[facility] Hemoglobin (Bld) [Mass/Vol] 9.7 g/dL Low 13.0-17.0 [facility] Comment on above: Order Comment: Check Chest Tube Position, ON ARRIVAL TO CVU Performed By: #### 5 0608 ####[address] IMM PLATELET FRAC 8.0 % High 0.8-6.3 [facility] Comment on above: Order Comment: Check Chest Tube Position, ON ARRIVAL TO CVU Performed By: #### 5 0608 ####[place] [address] [address] MCH (RBC) [Entitic mass] 31.2 pg Normal 27.0-33.0 [facility] Comment on above: Order Comment: Check Chest Tube Position, ON ARRIVAL TO CVU Performed By: #### 5 0608 ####[facility] MCHC (RBC) [Mass/Vol] 34.4 g/dL Normal 32.0-35.0 [facility] Comment on above: Order Comment: Check Chest Tube Position, ON ARRIVAL TO CVU Performed By: #### 5 0608 ####[facility] [place] [address] MCV (RBC) [Entitic vol] 90.7 fL Normal 82.0-98.0 [facility] Comment on above: Order Comment: Check Chest Tube Position, ON ARRIVAL TO CVU Performed By: #### 5 0608 ####[facility] [place] [address], [facility] Nucleated RBC/100 WBC (Bld) [Ratio] 0 % Normal 0-0 [facility] Comment on above: Order Comment: Check Chest Tube Position, ON ARRIVAL TO CVU Performed By: #### 5 0608 ####[facility] [place] [address], [facility] PLAT CNT 111 10*3/uL Low 150-400 [facility] Comment on above: Order Comment: Check Chest Tube Position, ON ARRIVAL TO CVU Performed By: #### 5 0608 ####[facility] [place] [address], [facility] RBC (Bld) [#/Vol] 3.11 10*6/uL Low 4.20-5.70 [facility] Comment on above: Order Comment: Check Chest Tube Position, ON ARRIVAL TO CVU Performed By: #### 5 0608 ####[facility] [place] [address], [facility] WBC (Bld) [#/Vol] 6.70 10*3/uL Normal 4.00-10.60 [facility] Comment on above: Order Comment: Check Chest Tube Position, ON ARRIVAL TO CVU Performed By: #### 5 0608 ####[facility] [place] [address], [facility] MAGNESIUM BLOODon 02-25-2022 Magnesium [Mass/Vol] 2.3 mg/dL Normal 1.9-2.7 [facility] Comment on above: Order Comment: Evalu ate for Pneumothorax Performed By: #### 1 0070, 40389, 60131 ####[facility] [place] [address], [facility] Magnesium [Mass/Vol] 2.4 mg/dL Normal 1.9-2.7 [facility] Comment on above: Order Comment: Check Chest Tube Position, ON ARRIVAL TO CVU Performed By: #### 4 1000, 41784, 64432 ####[facility] [place] [address], [place] Magnesium [Mass/Vol] 2.5 mg/dL Normal 1.9-2.7 [facility] Comment on above: Order Comment: No: D o not add to previous draw Criteria for reflexing a culture was not met. Please call the lab at [phone] within 24 hours of collection time if culture is needed Performed By: #### 3 0965 #### [facility] [address] [place] [address], [place] PHOSPHORUS BLOODon Phosphate [Mass/Vol] 5.1 mg/dL High 2.5-5.0 [facility] Comment on above: Order Comment: Evalu ate for Pneumothorax Performed By: #### 1 0070, 37607, 89985 ####[facility] [place] [address], [place] Phosphate [Mass/Vol] 4.9 mg/dL Normal 2.5-5.0 [facility] Comment on above: Order Comment: Check Chest Tube Position, ON ARRIVAL TO CVU Performed By: #### 4 1000, 90768, 30620 ####[facility] [place] [address], [place] Phosphate [Mass/Vol] 4.9 mg/dL Normal 2.5-5.0 [facility] Comment on above: Order Comment: No: D o not add to previous draw Criteria for reflexing a culture was not met. Please call the lab at [phone] within 24 hours of collection time if culture is needed Performed By: #### 3 0965 #### [facility] [address] [place] [address], [place] PORTABLE CHEST 1 VIEWon PORTABLE CHEST 1 VIEW [facility] Department of Radiology [address] [place] [address] ======== Patient Name: IGNACIO AMIN : 1945 Sex: M Age: Race: White Pt. Location: [place] [address] Patient Status: I Ordered Date: 02/25/2022 7:00:00 AM Completed Date: 02/25/2022 08:23 AM Requesting Provider: CHRISSY HERNANDEZ Attending Provider: CHRISTIANE OLSON Report Copy To: Signs & Symptoms: Post Chest Tube Removal History: Comments: Evaluate for Pneumothorax Exam: PORTABLE CHEST 1 VIEW ======== PORTABLE CHEST 1 VIEW 02/25/2022 8:23 AM CLINICAL INDICATIONS: Post Chest Tube Removal pneumothorax. TECHNOLOGIST COMMENTS: Post Chest tube removal. Evaluate pneumothorax. QUESTION FOR THE RADIOLOGIST: Evaluate for Pneumothorax PROTOCOL: AP(PA) view was obtained. COMPARISON: 02/24/2022 FINDINGS: Stable cardiomegaly and pacemaker device. Small bilateral pleural effusions with lower lung atelectasis and mild vascular congestion and edema. Right jugular catheter tip in the SVC. IMPRESSION: Mild vascular congestion and edema with small right pleural effusions. No pneumothorax. Stable appearance of the chest. Electronically signed: Mahesh Sanchez. Transcribed by: [email or web address], User Resident: Electronically Signed by: MAHESH SANCHEZ @ 02/25/2022 08:33 AM Normal [facility] Comment on above: Order Comment: Evalu ate for Pneumothorax ARTERIAL BLOOD GAS W/COOXon 02-24-2022 BASE EXCESS -1 mmol/L Normal -2-3 [facility] Comment on above: Performed By: #### 3 0739 #### [facility] [address] [place] [address], [facility] BILEVEL 12 Normal [facility] Comment on above: Performed By: #### 3 0739 #### [facility] [address] [place] [address], [facility] COHB 1.0 % Normal 0.0-1.5 [facility] Comment on above: Performed By: #### 3 0739 #### [facility] [address] [place] [address], [facility] DELIVERY SYSTEMS BI-PAP Normal [facility] Comment on above: Performed By: #### 3 0739 #### [facility] [address] [place] [address], [facility] FIO2 50 % Normal [facility] Comment on above: Performed By: #### 3 0739 #### [facility] [address] [place] [address], [facility] HCO3 (Bld) [Moles/Vol] 24 mmol/L Normal 21-28 [facility] Comment on above: Performed By: #### 3 0739 #### [facility] [address] [place] [address], [facility] METHB 0.9 % Normal 0.0-1.5 [facility] Comment on above: Performed By: #### 3 0739 #### [facility] [address] [place] [address], [place] MIN VOLUME 9.8 Normal [facility] Comment on above: Performed By: #### 3 0739 #### [facility] [address] [place] [address], [place] MODALITY SPONTANEOUS/TIMED Normal [facility] Comment on above: Performed By: #### 3 0739 #### [facility] [address] [place] [address], [facility] Oxygen (Bld) [Partial pressure] 104 mm[Hg] Normal 83-108 [facility] Comment on above: Performed By: #### 3 0739 #### [facility] [address] [place] [address], [place] Oxygen saturation in Blood 97.1 % High 94.0-97.0 [facility] Comment on above: Performed By: #### 3 0739 #### [facility] [address] [place] [address], [facility] PCO2 39 mmHg Normal 35-45 [facility] Comment on above: Performed By: #### 3 0739 #### [facility] [address] [place] [address], [place] PEEP 6.0 CMH20 Normal [facility] Comment on above: Performed By: #### 3 0739 #### [facility] [address] [place] [address], [place] pH (Bld) 7.39 [pH] Normal 7.35-7.45 [facility] Comment on above: Performed By: #### 3 0739 #### [facility] [address] [place] [address], [place] Respiratory rate 14 /min Normal [facility] Comment on above: Performed By: #### 3 0739 #### [facility] [address] [place] [address], [place] THB 10.1 g/dL Low 12.0-16.3 [facility] Comment on above: Performed By: #### 3 0739 #### [facility] [address] [place] [address], [place] BASIC METABOLIC PANELon 09-0 4-2021 Calcium [Mass/Vol] 8.8 mg/dL Normal 8.6-10.3 [facility] Comment on above: Order Comment: No: D o not add to previous draw Performed By: #### 3 0739 #### [facility] [address] [place] [address], [place] Chloride [Moles/Vol] 96 mmol/L Low 98-107 [facility] Comment on above: Order Comment: No: D o not add to previous draw Performed By: #### 3 0739 #### [facility] [address] [place] [address], [place] CO2 [Moles/Vol] 22 mmol/L Normal 21-31 [facility] Comment on above: Order Comment: No: D o not add to previous draw Performed By: #### 3 0739 #### [facility] [address] [place] [address], [place] Creatinine [Mass/Vol] 2.04 mg/dL High 0.70-1.30 [facility] Comment on above: Order Comment: No: D o not add to previous draw Performed By: #### 3 0739 #### [facility] [address] [place] [address], [facility] EGFR 33 ml/min/1.73sq m Abnormal >60 [facility] Comment on above: Order Comment: No: D o not add to previous draw Result Comment: [facility]'s estimated glomerular filtration rate (eGFR) will no longer include consideration of race in its calculation. The National Kid[employer]'s eGFR Task Force developed new recommendations for the estimation of the glomerular filtration rate in the [place] They recommend immediate implementation of the new equation refit without the race variable in all laboratories because the calculation does not include race. In addition to not including race in the calculation and reporting, it included diversity in its development, and has acceptable performance characteristics and potential consequences that do not disproportionately affect any one group of individuals. Performed By: #### 3 0739 #### [facility] [address] [place] [address], [place] Glucose [Mass/Vol] 204 mg/dL High 70-100 [facility] Comment on above: Order Comment: No: D o not add to previous draw Performed By: #### 3 0739 #### [facility] [address] [place] [address], [place] Potassium [Moles/Vol] 3.6 mmol/L Normal 3.5-5.1 [facility] Comment on above: Order Comment: No: D o not add to previous draw Performed By: #### 3 0739 #### [facility] [address] [place] [address], [place] Sodium [Moles/Vol] 131 mmol/L Low 136-145 [facility] Comment on above: Order Comment: No: D o not add to previous draw Performed By: #### 3 0739 #### [facility] [address] [place] [address], [place] Urea nitrogen [Mass/Vol] 66 mg/dL High 7-25 [facility] Comment on above: Order Comment: No: D o not add to previous draw Performed By: #### 3 0739 #### [facility] [address] [place] [address], [place] Calcium [Mass/Vol] 8.9 mg/dL Normal 8.6-10.3 [facility] Comment on above: Order Comment: evalu ate for Effusion Performed By: #### 4 1000, 76098, 05142 ####[facility] [place] [address], [place] Chloride [Moles/Vol] 100 mmol/L Normal 98-107 [facility] Comment on above: Order Comment: evalu ate for Effusion Performed By: #### 4 1000, 37748, 03546 ####[facility] [place] [address], [place] CO2 [Moles/Vol] 22 mmol/L Normal 21-31 [facility] Comment on above: Order Comment: evalu ate for Effusion Performed By: #### 4 1000, 81153, 51242 ####[facility] [place] [address], [facility] Creatinine [Mass/Vol] 2.14 mg/dL High 0.70-1.30 [facility] Comment on above: Order Comment: evalu ate for Effusion Performed By: #### 4 999, 08849, 79079 ####[facility] [facility] [place] [place] [address], [facility] EGFR 31 ml/min/1.73sq m Abnormal >60 [facility] Comment on above: Order Comment: evalu ate for Effusion Result Comment: [facility]'s estimated glomerular filtration rate (eGFR) will no longer include consideration of race in its calculation. The National Kid[employer] Foundation's eGFR Task Force developed new recommendations for the estimation of the glomerular filtration rate in the [place] They recommend immediate implementation of the new equation refit without the race variable in all laboratories because the calculation does not include race. In addition to not including race in the calculation and reporting, it included diversity in its development, and has acceptable performance characteristics and potential consequences that do not disproportionately affect any one group of individuals. Performed By: #### 4 999, 84497, 57016 ####[facility] [facility] [place] [place] [address], [facility] Glucose [Mass/Vol] 111 mg/dL High 70-100 [facility] Comment on above: Order Comment: evalu ate for Effusion Performed By: #### 4 999, 18127, 06444 ####[facility] [facility] [place] [place] [address], [facility] Potassium [Moles/Vol] 3.8 mmol/L Normal 3.5-5.1 [facility] Comment on above: Order Comment: evalu ate for Effusion Performed By: #### 4 1000, 22261, 42076 ####[facility] [facility] [address], [facility] Sodium [Moles/Vol] 134 mmol/L Low 136-145 [facility] Comment on above: Order Comment: evalu ate for Effusion Performed By: #### 4 999, 07324, 16318 ####[facility] [place] [address], [facility] Urea nitrogen [Mass/Vol] 60 mg/dL High 7-25 [facility] Comment on above: Order Comment: evalu ate for Effusion Performed By: #### 4 1000, 75285, 46516 ####[facility] CBC COMPLETE BLOOD COUNTon 0 02-24-2022 Erythrocyte distribution width (RBC) [Ratio] 14.7 % Normal 11.5-15.0 [facility] Comment on above: Order Comment: No: D o not add to previous draw Performed By: #### 5 0608 #### [facility] [address] [place] [address], [facility] Hematocrit (Bld) [Volume fraction] 28.6 % Low 39.0-50.0 [facility] Comment on above: Order Comment: No: D o not add to previous draw Performed By: #### 5 0608 #### [facility] [address] [place] [address], [facility] Hemoglobin (Bld) [Mass/Vol] 9.5 g/dL Low 13.0-17.0 [facility] Comment on above: Order Comment: No: D o not add to previous draw Performed By: #### 5 0608 #### [facility] [address] [place] [address], [facility] IMM PLATELET FRAC 9.2 % High 0.8-6.3 [facility] Comment on above: Order Comment: No: D o not add to previous draw Performed By: #### 5 0608 #### [facility] [address] [place] [address], [facility] MCH (RBC) [Entitic mass] 30.4 pg Normal 27.0-33.0 [facility] Comment on above: Order Comment: No: D o not add to previous draw Performed By: #### 5 0608 #### [facility] [address] [place] [address], [facility] MCHC (RBC) [Mass/Vol] 33.2 g/dL Normal 32.0-35.0 [facility] Comment on above: Order Comment: No: D o not add to previous draw Performed By: #### 5 0608 #### [facility] [address] [place] [address], [facility] MCV (RBC) [Entitic vol] 91.4 fL Normal 82.0-98.0 [facility] Comment on above: Order Comment: No: D o not add to previous draw Performed By: #### 5 0608 #### [facility] [address] [place] [address], [facility] Nucleated RBC/100 WBC (Bld) [Ratio] 0 % Normal 0-0 [facility] Comment on above: Order Comment: No: D o not add to previous draw Performed By: #### 5 0608 #### [facility] [address] [place] [address], [facility] PLAT CNT 80 10*3/uL Low 150-400 [facility] Comment on above: Order Comment: No: D o not add to previous draw Performed By: #### 5 0608 #### [facility] [address] [place] [address], [facility] RBC (Bld) [#/Vol] 3.13 10*6/uL Low 4.20-5.70 [facility] Comment on above: Order Comment: No: D o not add to previous draw Performed By: #### 5 0608 #### [facility] [address] [place] [address], [facility] WBC (Bld) [#/Vol] 5.80 10*3/uL Normal 4.00-10.60 [facility] Comment on above: Order Comment: No: D o not add to previous draw Performed By: #### 5 0608 #### [facility] [address] [place] [address], [facility] MAGNESIUM BLOODon 02-24-2022 Magnesium [Mass/Vol] 2.4 mg/dL Normal 1.9-2.7 [facility] Comment on above: Performed By: #### 3 0739 #### [facility] [address] [place] [address], [place] Magnesium [Mass/Vol] 2.4 mg/dL Normal 1.9-2.7 [facility] Comment on above: Order Comment: evalu ate for Effusion Performed By: #### 4 1000, 90374, 40216 ####[facility] [facility] [place] [address], [facility] PHOSPHORUS BLOODon Phosphate [Mass/Vol] 4.6 mg/dL Normal 2.5-5.0 [facility] Comment on above: Performed By: #### 3 0739 #### [facility] [address] [place] [address], [place] Phosphate [Mass/Vol] 5.0 mg/dL Normal 2.5-5.0 [facility] Comment on above: Order Comment: evalu ate for Effusion Performed By: #### 4 1000, 69084, 15529 ####[facility] [place] [address], [facility] PORTABLE CHEST 1 VIEWon PORTABLE CHEST 1 VIEW [facility] Department of Radiology [address] [place] [address] ======== Patient Name: IGNACIO AMIN : 1945 Sex: M Age: Race: White Pt. Location: [place] [address] Patient Status: I Ordered Date: 02/24/2022 3:00:00 PM Completed Date: 02/24/2022 03:46 PM Requesting Provider: CHRISSY HERNANDEZ Attending Provider: CHRISTIANE OLSON Report Copy To: Signs & Symptoms: Post Chest Tube Removal History: Comments: evaluate for Pneumothorax Exam: PORTABLE CHEST 1 VIEW ======== PORTABLE CHEST 1 VIEW 02/24/2022 3:46 PM CLINICAL INDICATIONS: Post Chest Tube Removal pneumothorax. TECHNOLOGIST COMMENTS: Post Chest Tube Removal, evaluate for Pneumothorax QUESTION FOR THE RADIOLOGIST: evaluate for Pneumothorax PROTOCOL: AP(PA) view was obtained. COMPARISON: 02/24/2022 FINDINGS: Mild cardiomegaly. Mild pulmonary vascular congestion and edema. Small right pleural effusion. Retrograde catheter is stable. No evidence of pneumothorax. IMPRESSION: Mild pulmonary vascular congestion and edema with small right pleural effusion and bilateral lower lung atelectasis. No pneumothorax. Electronically signed: Mahesh Sanchez. Transcribed by: [email or web address], User Resident: Electronically Signed by: MAHESH SANCHEZ @ 02/24/2022 04:00 PM Normal [facility] Comment on above: Order Comment: evalu ate for Pneumothorax PORTABLE CHEST 1 VIEW [facility] Department of Radiology [address] [place] [id number] ======== Patient Name: IGNACIO AMIN : 1945 Sex: M Age: Race: White Pt. Location: [place] [address] Patient Status: I Ordered Date: 02/24/2022 5:00:00 AM Completed Date: 02/24/2022 07:53 AM Requesting Provider: CHRISSY HERNANDEZ Attending Provider: CHRISTIANE OLSON Report Copy To: Signs & Symptoms: Shortness of Breath History: Comments: Evaluate for Pneumothorax Exam: PORTABLE CHEST 1 VIEW ======== PORTABLE CHEST 1 VIEW 02/24/2022 7:53 AM CLINICAL INDICATIONS: Shortness of Breath TECHNOLOGIST COMMENTS: respiratory distress QUESTION FOR THE RADIOLOGIST: Evaluate for Pneumothorax PROTOCOL: AP(PA) view was obtained. COMPARISON: 02/23/2022 FINDINGS: Stable cardiomediastinal sweat. There is mild vascular congestion and edema. Small right pleural effusion. Right jugular catheter stable. Stable pacemaker device. IMPRESSION: No significant interval change with stable appearance of the chest. Electronically signed: Mahesh Sanchez. Transcribed by: [email or web address], User Resident: Electronically Signed by: MAHESH SANCHEZ @ 02/24/2022 08:35 AM Normal [facility] Comment on above: Order Comment: Check Chest Tube Position, ON ARRIVAL TO CVU ALBUMIN BLOODon 02-23-2022 Albumin [Mass/Vol] 4.0 g/dL Normal 3.5-5.7 [facility] Comment on above: Performed By: #### 3 0965 #### [facility] [address] [place] [address], [facility] ARTERIAL BLOOD GAS W/COOXon 02-23-2022 BASE EXCESS -6 mmol/L Low -2-3 [facility] Comment on above: Performed By: #### 3 7739 #### [facility] [address] [place] [address], [place] COHB 1.1 % Normal 0.0-1.5 [facility] Comment on above: Performed By: #### 3 0739 #### [facility] [address] [place] [address], [facility] DELIVERY SYSTEMS BIPAP Normal [facility] Comment on above: Performed By: #### 3 0739 #### [facility] [address] [place] [address], [facility] FIO2 50 % Normal [facility] Comment on above: Performed By: #### 3 0739 #### [facility] [address] [place] [address], [facility] HCO3 (Bld) [Moles/Vol] 20 mmol/L Low 21-28 [facility] Comment on above: Performed By: #### 3 0739 #### [facility] [address] [place] [address], [facility] METHB 0.7 % Normal 0.0-1.5 [facility] Comment on above: Performed By: #### 3 0739 #### [facility] [address] [place] [address], [facility] MODALITY BIPAP Normal [facility] Comment on above: Performed By: #### 3 0739 #### [facility] [address] [place] [address], [facility] Oxygen (Bld) [Partial pressure] 134 mm[Hg] Critically high 83-108 [facility] Comment on above: Performed By: #### 3 0739 #### [facility] [address] [place] [address], [facility] Oxygen saturation in Blood 97.7 % High 94.0-97.0 [facility] Comment on above: Performed By: #### 3 0739 #### [facility] [address] [place] [address], [facility] PCO2 37 mmHg Normal 35-45 [facility] Comment on above: Performed By: #### 3 0739 #### [facility] [address] [place] [address], [facility] PEEP 6.0 CMH20 Normal [facility] Comment on above: Performed By: #### 3 0739 #### [facility] [address] [place] [address], [facility] pH (Bld) 7.33 [pH] Low 7.35-7.45 [facility] Comment on above: Performed By: #### 3 0739 #### [facility] [address] [place] [address], [facility] PRESSURE SUPPORT 12 Normal [facility] Comment on above: Performed By: #### 3 0739 #### [facility] [address] [place] [address], [facility] THB 10.2 g/dL Low 12.0-16.3 [facility] Comment on above: Performed By: #### 3 0739 #### [facility] [address] [place] [address], [facility] BASIC METABOLIC PANELon 09-0 -2021 Calcium [Mass/Vol] 9.2 mg/dL Normal 8.6-10.3 [facility] Comment on above: Order Comment: evalu ate for Effusion Performed By: #### 0 0071, 29413, 81786, 43377 ####[facility] [place] [address], [facility] Chloride [Moles/Vol] 102 mmol/L Normal 98-107 [facility] Comment on above: Order Comment: evalu ate for Effusion Performed By: #### 0 0071, 50492, 44420, 42506 ####[facility] [place] [address], [facility] CO2 [Moles/Vol] 19 mmol/L Low 21-31 [facility] Comment on above: Order Comment: evalu ate for Effusion Performed By: #### 0 0071, 41648, 79295, 83705 ####[facility] [place] [address], [facility] Creatinine [Mass/Vol] 2.06 mg/dL High 0.70-1.30 [facility] Comment on above: Order Comment: evalu ate for Effusion Performed By: #### 0 0071, 29302, 52936, 75275 ####[facility] [place] [address], [facility] EGFR 33 ml/min/1.73sq m Abnormal >60 [facility] Comment on above: Order Comment: evalu ate for Effusion Result Comment: [facility]'s estimated glomerular filtration rate (eGFR) will no longer include consideration of race in its calculation. The National Kidney Foundation's eGFR Task Force developed new recommendations for the estimation of the glomerular filtration rate in the [place] They recommend immediate implementation of the new equation refit without the race variable in all laboratories because the calculation does not include race. In addition to not including race in the calculation and reporting, it included diversity in its development, and has acceptable performance characteristics and potential consequences that do not disproportionately affect any one group of individuals. Performed By: #### 0 0071, 22360, 35708, 07529 ####[facility] [place] [address], [facility] Glucose [Mass/Vol] 140 mg/dL High 70-100 [facility] Comment on above: Order Comment: evalu ate for Effusion Performed By: #### 0 0071, 08675, 99521, 85098 ####[facility] [place] [address], [facility] Potassium [Moles/Vol] 4.4 mmol/L Normal 3.5-5.1 [facility] Comment on above: Order Comment: evalu ate for Effusion Performed By: #### 0 0071, 27788, 87656, 55961 ####[facility] [place] [address], [facility] Sodium [Moles/Vol] 132 mmol/L Low 136-145 [facility] Comment on above: Order Comment: evalu ate for Effusion Performed By: #### 0 0071, 07348, 71555, 97399 ####[facility] [facility].[address] Urea nitrogen [Mass/Vol] 50 mg/dL High 7-25 [facility] Comment on above: Order Comment: evalu ate for Effusion Performed By: #### 0 0071, 12918, 32337, 98512 ####[facility] [facility].[address] CBC COMPLETE BLOOD COUNTon 0 02-23-2022 Erythrocyte distribution width (RBC) [Ratio] 14.9 % Normal 11.5-15.0 [facility] Comment on above: Order Comment: Check Chest Tube Position, ON ARRIVAL TO CVU Performed By: #### 5 0608 ####[place] [address] [address] Hematocrit (Bld) [Volume fraction] 30.5 % Low 39.0-50.0 [facility] Comment on above: Order Comment: Check Chest Tube Position, ON ARRIVAL TO CVU Performed By: #### 5 0608 ####[facility] [facility].[address] Hemoglobin (Bld) [Mass/Vol] 10.3 g/dL Low 13.0-17.0 [facility] Comment on above: Order Comment: Check Chest Tube Position, ON ARRIVAL TO CVU Performed By: #### 5 0608 ####[facility] [place] [address], [facility] IMM PLATELET FRAC 10.6 % High 0.8-6.3 [facility] Comment on above: Order Comment: Check Chest Tube Position, ON ARRIVAL TO CVU Performed By: #### 5 0608 ####[facility] [place] [address], [facility] MCH (RBC) [Entitic mass] 31.3 pg Normal 27.0-33.0 [facility] Comment on above: Order Comment: Check Chest Tube Position, ON ARRIVAL TO CVU Performed By: #### 5 0608 ####[facility] MCHC (RBC) [Mass/Vol] 33.8 g/dL Normal 32.0-35.0 [facility] Comment on above: Order Comment: Check Chest Tube Position, ON ARRIVAL TO CVU Performed By: #### 5 0608 ####[facility] MCV (RBC) [Entitic vol] 92.7 fL Normal 82.0-98.0 [facility] Comment on above: Order Comment: Check Chest Tube Position, ON ARRIVAL TO CVU Performed By: #### 5 0608 ####[place] [address] [address] Nucleated RBC/100 WBC (Bld) [Ratio] 0 % Normal 0-0 [facility] Comment on above: Order Comment: Check Chest Tube Position, ON ARRIVAL TO CVU Performed By: #### 5 0608 ####[facility] PLAT CNT 71 10*3/uL Low 150-400 [facility] Comment on above: Order Comment: Check Chest Tube Position, ON ARRIVAL TO CVU Performed By: #### 5 0608 ####[facility] RBC (Bld) [#/Vol] 3.29 10*6/uL Low 4.20-5.70 [facility] Comment on above: Order Comment: Check Chest Tube Position, ON ARRIVAL TO CVU Performed By: #### 5 0608 ####[facility] [place] [address] WBC (Bld) [#/Vol] 8.45 10*3/uL Normal 4.00-10.60 [facility] Comment on above: Order Comment: Check Chest Tube Position, ON ARRIVAL TO CVU Performed By: #### 5 0608 ####[facility] [facility] [place] [address], [facility] MAGNESIUM BLOODon 02-23-2022 Magnesium [Mass/Vol] 2.6 mg/dL Normal 1.9-2.7 [facility] Comment on above: Performed By: #### 3 0965 #### [facility] [address] [place] [address], [facility] PHOSPHORUS BLOODon Phosphate [Mass/Vol] 5.4 mg/dL High 2.5-5.0 [facility] Comment on above: Performed By: #### 3 0965 #### [facility] [address] [place] [address], [facility] POC GLUCOSE LABon 02-23-2022 Glucose [Mass/Vol] 144 mg/dL High 70-100 [facility] Comment on above: Performed By: #### 3 1595 #### [facility] [address] PORTABLE CHEST 1 VIEWon PORTABLE CHEST 1 VIEW [facility] Department of Radiology [address] [place] [id number] ======== Patient Name: IGNACIO AMIN : 1945 Sex: M Age: Race: White Pt. Location: [id number] Patient Status: I Ordered Date: 02/23/2022 5:00:00 AM Completed Date: 02/23/2022 08:00 AM Requesting Provider: CHRISSY HERNANDEZ Attending Provider: CHRISTIANE OLSON Report Copy To: Signs & Symptoms: Post OP History: Comments: evaluate for Effusion Exam: PORTABLE CHEST 1 VIEW ======== PORTABLE CHEST 1 VIEW 02/23/2022 8:00 AM CLINICAL INDICATIONS: Post OP TECHNOLOGIST COMMENTS: evaluate for Effusion shortness of breath QUESTION FOR THE RADIOLOGIST: evaluate for Effusion PROTOCOL: AP(PA) view was obtained. COMPARISON: February 22, 2022 FINDINGS: Stable cardiomegaly. Small right effusion with persistent right lower lobe airspace disease. Hazy airspace disease now throughout the left lower lung. No pneumothorax IMPRESSION: Increased bilateral airspace disease Electronically signed: Aurora Valentino. Transcribed by: [email or web address], User Resident: Electronically Signed by: AURORA VALENTINO @ 02/23/2022 08:18 AM Normal [facility] Comment on above: Order Comment: evalu ate for Effusion Pulmonary Functionon 022 Pulmonary Function MR #: [id number] [facility] PT. Name: Ignacio Amin Date: 02/15/2022 Date of : 1945 Patient Type: I Pulmonary Function INTERPRETATION DIAGNOSIS: Preop clearance for coronary artery bypass grafting. FINDINGS: 1. Spirometry-flow volume loop infers restriction with no significant superimposed obstruction. 2. Maximum ventilatory ventilation is normal. 3. Lung volumes body box technique are within normal limits. 4. Diffusing capacity for carbon monoxide uncorrected for hemoglobin is moderately reduced. IMPRESSION: 1. Clinically most compatible with restrictive lung disease. Etiology of which is not clear associated with moderately reduced diffusing capacity for carbon monoxide. The degree of reduction in diffusing capacity for carbon monoxide is more than you would expect from that defect inferred above from airway mechanics, which could suggest associated pulmonary hypertension. Also, we do see this pattern of pulmonary function test and is referred as nonspecific pattern where you don't see the significant obstructive pattern in a smoker with COPD. 2. Clinical correlation is recommended. Electronically Signed by: Dorothea Le M.D. 03/01/2022 03:09 P Dorothea Le M.D. Pulmonary Critical Care and Sleep Medicine Date Dict: 02/22/2022/02:57 P/Dorothea Le M.D. Date Trans: 02/23/2022 07:06 A/mmo [id number] Normal [facility] ARTERIAL BLOOD GAS W/COOXon 02-22-2022 BASE EXCESS -7 mmol/L Low -2-3 [facility] Comment on above: Performed By: #### 3 0739 #### [facility] [address] [facility]. [address] COHB 1.4 % Normal 0.0-1.5 [facility] Comment on above: Performed By: #### 3 0739 #### [facility] [address] DELIVERY SYSTEMS [place] Normal [facility] Comment on above: Performed By: #### 3 0739 #### [facility] [address] [facility] [place] [address], [facility] HCO3 (Bld) [Moles/Vol] 19 mmol/L Low 21-28 [facility] Comment on above: Performed By: #### 3 0739 #### [facility] [address] [facility] [place] [address], [facility] LPM 4.0 LPM Normal [facility] Comment on above: Performed By: #### 3 0739 #### [facility] [address] [place] [address], [facility] METHB 0.4 % Normal 0.0-1.5 [facility] Comment on above: Performed By: #### 3 0739 #### [facility] [address] [facility] [place] [address], [facility] Oxygen (Bld) [Partial pressure] 68 mm[Hg] Low 83-108 [facility] Comment on above: Performed By: #### 3 0739 #### [facility] [address] [facility] [place] [address], [facility] Oxygen saturation in Blood 93.8 % Low 94.0-97.0 [facility] Comment on above: Performed By: #### 3 0739 #### [facility] [address] [facility] [place] [address], [facility] PCO2 35 mmHg Normal 35-45 [facility] Comment on above: Performed By: #### 3 0739 #### [facility] [address] [facility] [place] [address], [facility] pH (Bld) 7.33 [pH] Low 7.35-7.45 [facility] Comment on above: Performed By: #### 3 0739 #### [facility] [address] [facility]. [address] THB 11.0 g/dL Low 12.0-16.3 [facility] Comment on above: Performed By: #### 3 0739 #### [facility] [address] [facility]. [address] BASIC METABOLIC PANELon 09-0 2-2021 Chloride [Moles/Vol] 104 mmol/L Normal 98-107 [facility] Comment on above: Order Comment: Check Chest Tube Position, ON ARRIVAL TO CVU Performed By: #### 0 0071 ####[facility] [facility] [place] [address], [facility] CO2 [Moles/Vol] 20 mmol/L Low 21-31 [facility] Comment on above: Order Comment: Check Chest Tube Position, ON ARRIVAL TO CVU Performed By: #### 0 0071 ####[facility] [facility] [place] [address], [facility] Creatinine [Mass/Vol] 1.84 mg/dL High 0.70-1.30 [facility] Comment on above: Order Comment: Check Chest Tube Position, ON ARRIVAL TO CVU Performed By: #### 0 0071 ####[facility] [facility].[address] EGFR 38 ml/min/1.73sq m Abnormal >60 [facility] Comment on above: Order Comment: Check Chest Tube Position, ON ARRIVAL TO CVU Result Comment: [facility]'s estimated glomerular filtration rate (eGFR) will no longer include consideration of race in its calculation. The National Kidney Foundation's eGFR Task Force developed new recommendations for the estimation of the glomerular filtration rate in the [place] They recommend immediate implementation of the new equation refit without the race variable in all laboratories because the calculation does not include race. In addition to not including race in the calculation and reporting, it included diversity in its development, and has acceptable performance characteristics and potential consequences that do not disproportionately affect any one group of individuals. Performed By: #### 0 0071 ####[facility] [place] [address], [facility] Glucose [Mass/Vol] 129 mg/dL High 70-100 [facility] Comment on above: Order Comment: Check Chest Tube Position, ON ARRIVAL TO CVU Performed By: #### 0 0071 ####[facility] [facility] [place] [place] [address], [facility] Potassium [Moles/Vol] 4.2 mmol/L Normal 3.5-5.1 [facility] Comment on above: Order Comment: Check Chest Tube Position, ON ARRIVAL TO CVU Performed By: #### 0 0071 ####[facility] [place] [address], [facility] Urea nitrogen [Mass/Vol] 41 mg/dL High 7-25 [facility] Comment on above: Order Comment: Check Chest Tube Position, ON ARRIVAL TO CVU Performed By: #### 0 0071 ####[facility] [place] [address], [facility] Calcium [Mass/Vol] 8.8 mg/dL Normal 8.6-10.3 [facility] Comment on above: Order Comment: Check Chest Tube Position, ON ARRIVAL TO CVU Performed By: #### 0 0071 ####[facility] [place] [address], [facility] Performed By: #### 0 0071, 24102, 13272 ####[facility] [place] [address], [facility] Chloride [Moles/Vol] 105 mmol/L Normal 98-107 [facility] Comment on above: Order Comment: Check Chest Tube Position, ON ARRIVAL TO CVU Performed By: #### 0 0071, 37190, 00597 ####[facility] [place] [address], [facility] CO2 [Moles/Vol] 19 mmol/L Low 21-31 [facility] Comment on above: Order Comment: Check Chest Tube Position, ON ARRIVAL TO CVU Performed By: #### 0 0071, 20491, 77594 ####[facility] [place] [address], [facility] Creatinine [Mass/Vol] 1.60 mg/dL High 0.70-1.30 [facility] Comment on above: Order Comment: Check Chest Tube Position, ON ARRIVAL TO CVU Performed By: #### 0 0071, 18679, 85770 ####[facility] [place] [address], [facility] EGFR 45 ml/min/1.73sq m Abnormal >60 [facility] Comment on above: Order Comment: Check Chest Tube Position, ON ARRIVAL TO CVU Result Comment: [facility]'s estimated glomerular filtration rate (eGFR) will no longer include consideration of race in its calculation. The National Kidney Foundation's eGFR Task Force developed new recommendations for the estimation of the glomerular filtration rate in the [place] They recommend immediate implementation of the new equation refit without the race variable in all laboratories because the calculation does not include race. In addition to not including race in the calculation and reporting, it included diversity in its development, and has acceptable performance characteristics and potential consequences that do not disproportionately affect any one group of individuals. Performed By: #### 0 0071, 16239, 96937 ####[facility] [place] [address], [place] Glucose [Mass/Vol] 137 mg/dL High 70-100 [facility] Comment on above: Order Comment: Check Chest Tube Position, ON ARRIVAL TO CVU Performed By: #### 0 0071, 71353, 73803 ####[facility] [place] [address], [place] Potassium [Moles/Vol] 4.3 mmol/L Normal 3.5-5.1 [facility] Comment on above: Order Comment: Check Chest Tube Position, ON ARRIVAL TO CVU Performed By: #### 0 0071, 26082, 80933 ####[facility] [place] [address], [place] Sodium [Moles/Vol] 133 mmol/L Low 136-145 [facility] Comment on above: Order Comment: Check Chest Tube Position, ON ARRIVAL TO CVU Performed By: #### 0 0071 ####[facility] [place] [address], [place] Performed By: #### 0 0071, 59406, 59027 ####[facility] [place] [address], [place] Urea nitrogen [Mass/Vol] 34 mg/dL High 7-25 [facility] Comment on above: Order Comment: Check Chest Tube Position, ON ARRIVAL TO CVU Performed By: #### 0 0071, 00062, 50949 ####[facility] [place] [address], [place] CBC COMPLETE BLOOD COUNTon 0 02-22-2022 Erythrocyte distribution width (RBC) [Ratio] 14.8 % Normal 11.5-15.0 [facility] Comment on above: Order Comment: No: D o not add to previous draw Performed By: #### 5 0608 #### [facility] [address] [place] [address], [facility] Hematocrit (Bld) [Volume fraction] 30.9 % Low 39.0-50.0 [facility] Comment on above: Order Comment: No: D o not add to previous draw Performed By: #### 5 0608 #### [facility] [address] Hemoglobin (Bld) [Mass/Vol] 10.7 g/dL Low 13.0-17.0 [facility] [facility] Comment on above: Order Comment: No: D o not add to previous draw Performed By: #### 5 0608 #### [facility] [address] [place] [address], [facility] IMM PLATELET FRAC 7.9 % High 0.8-6.3 [facility] Comment on above: Order Comment: No: D o not add to previous draw Performed By: #### 5 0608 #### [facility] [address] [facility] [place] [address], [facility] MCH (RBC) [Entitic mass] 31.4 pg Normal 27.0-33.0 [facility] Comment on above: Order Comment: No: D o not add to previous draw Performed By: #### 5 0608 #### [facility] [address] [place] [address], [facility] MCHC (RBC) [Mass/Vol] 34.6 g/dL Normal 32.0-35.0 [facility] Comment on above: Order Comment: No: D o not add to previous draw Performed By: #### 5 0608 #### [facility] [address] [place] [id number], [facility] MCV (RBC) [Entitic vol] 90.6 fL Normal 82.0-98.0 [facility] Comment on above: Order Comment: No: D o not add to previous draw Performed By: #### 5 0608 #### [facility] [address] [place] [address], [facility] Nucleated RBC/100 WBC (Bld) [Ratio] 0 % Normal 0-0 [facility] Comment on above: Order Comment: No: D o not add to previous draw Performed By: #### 5 0608 #### [facility] [address] [place] [address], [facility] PLAT CNT 74 10*3/uL Low 150-400 [facility] Comment on above: Order Comment: No: D o not add to previous draw Performed By: #### 5 0608 #### [facility] [address] [place] [address], [facility] RBC (Bld) [#/Vol] 3.41 10*6/uL Low 4.20-5.70 [facility] Comment on above: Order Comment: No: D o not add to previous draw Performed By: #### 5 0608 #### [facility] [address] [facility] [place] [address], [facility] WBC (Bld) [#/Vol] 9.54 10*3/uL Normal 4.00-10.60 [facility] Comment on above: Order Comment: No: D o not add to previous draw Performed By: #### 5 0608 #### [facility] [address] [facility] [place] [address], [facility] MAGNESIUM BLOODon 02-22-2022 Magnesium [Mass/Vol] 2.3 mg/dL Normal 1.9-2.7 [facility] Comment on above: Order Comment: Check Chest Tube Position, ON ARRIVAL TO CVU Performed By: #### 0 0071, 49739, 83315 ####[facility] [place] [address], [facility] PHOSPHORUS BLOODon Phosphate [Mass/Vol] 3.8 mg/dL Normal 2.5-5.0 [facility] Comment on above: Order Comment: Check Chest Tube Position, ON ARRIVAL TO CVU Performed By: #### 0 0071, 00376, 40923 ####[facility] [place] [address], [facility] PORTABLE CHEST 1 VIEWon PORTABLE CHEST 1 VIEW [facility] Department of Radiology [address] [place] [address] ======== Patient Name: IGNACIO AMIN : 1945 Sex: M Age: Race: White Pt. Location: [place] [address] Patient Status: I Ordered Date: 02/22/2022 5:00:00 AM Completed Date: 02/22/2022 07:53 AM Requesting Provider: CHRISSY HERNANDEZ Attending Provider: CHRISTIANE OLSON Report Copy To: Signs & Symptoms: Shortness of Breath History: Comments: Evaluate for Pneumothorax Exam: PORTABLE CHEST 1 VIEW ======== EXAMINATION: PORTABLE CHEST 1 VIEW 02/22/2022 7:53 AM CLINICAL HISTORY: Shortness of Breath TECHNOLOGIST COMMENTS: Patient has shortness of breath. QUESTION FOR THE RADIOLOGIST: Evaluate for Pneumothorax TECHNIQUE: AP(PA) view was obtained. COMPARISON: Comparison is made with the prior chest radiograph of 02/21/2022. FINDINGS: Heart is enlarged with evidence of median thoracotomy. A dual-chamber permanent pacemaker is in satisfactory position. Right jugular venous line is seen with disc deep in the superior vena cava. Trachea is in midline. Mediastinum is otherwise unremarkable. There are bilateral pleural effusions. There is a prominence of the markings consistent with vascular congestions and congestive cardiac failure. There may be associated bibasilar atelectasis. Hemidiaphragms are normal in position. No free air is seen in the upper abdomen. IMPRESSION: Findings are consistent with congestive cardiac failure with vascular congestions and bilateral pleural effusions. There may be associated bilateral lower lobe atelectasis and/or pneumonic infiltrate. There has been interval increase in the pleural-parenchymal abnormalities since yesterday's examination. Progress study is recommended. Electronically signed: Martin Giordano. Transcribed by: [id number], User Resident: Electronically Signed by: MARTIN GIORDANO @ 02/22/2022 12:04 PM Normal [facility] Comment on above: Order Comment: Evalu ate for Pneumothorax URINALYSIS REFLEXon 02-23-20 22 Appearance (U) CLEAR Normal CLEAR [facility] Comment on above: Order Comment: No: D o not add to previous draw Criteria for reflexing a culture was not met. Please call the lab at [phone] within 24 hours of collection time if culture is needed Performed By: #### 3 0965 #### [facility] [address] [facility] [place] [address], [facility] Bilirubin Ql (U) Negative Normal NEGATIVE [facility] Comment on above: Order Comment: No: D o not add to previous draw Criteria for reflexing a culture was not met. Please call the lab at [phone] within 24 hours of collection time if culture is needed Performed By: #### 3 0965 #### [facility] [address] [place] [address], [place] Color (U) YELLOW Normal YELLOW [facility] Comment on above: Order Comment: No: D o not add to previous draw Criteria for reflexing a culture was not met. Please call the lab at [phone] within 24 hours of collection time if culture is needed Performed By: #### 3 0965 #### [facility] [address] [place] [address], [place] EPIS NONE SEEN Normal FEW,OCC,NONE SEEN [facility] Comment on above: Order Comment: No: D o not add to previous draw Criteria for reflexing a culture was not met. Please call the lab at [phone] within 24 hours of collection time if culture is needed Performed By: #### 3 0965 #### [facility] [address] [place] [address], [place] Glucose Ql (U) Negative Normal NEGATIVE [facility] Comment on above: Order Comment: No: D o not add to previous draw Criteria for reflexing a culture was not met. Please call the lab at 7668 within 24 hours of collection time if culture is needed Performed By: #### 3 0965 #### [facility] [address] [place] [address], [place] Hemoglobin Ql (U) SMALL Abnormal NEGATIVE [facility] Comment on above: Order Comment: No: D o not add to previous draw Criteria for reflexing a culture was not met. Please call the lab at 7668 within 24 hours of collection time if culture is needed Performed By: #### 3 0965 #### [facility] [address] [place] [address], [place] Hyaline casts LM Ql (Urine sed) 6-10 Abnormal NONE SEEN [facility] Comment on above: Order Comment: No: D o not add to previous draw Criteria for reflexing a culture was not met. Please call the lab at [phone] within 24 hours of collection time if culture is needed Performed By: #### 3 0965 #### [facility] [address] [place] [address], [place] KETONE Negative Normal NEGATIVE [facility] Comment on above: Order Comment: No: D o not add to previous draw Criteria for reflexing a culture was not met. Please call the lab at 7668 within 24 hours of collection time if culture is needed Performed By: #### 3 0965 #### [facility] [address] [place] [address], [place] LEUK TOMA Negative Normal NEGATIVE [facility] Comment on above: Order Comment: No: D o not add to previous draw Criteria for reflexing a culture was not met. Please call the lab at 7668 within 24 hours of collection time if culture is needed Performed By: #### 3 0965 #### [facility] [address] [place] [address], [facility] MUCUS THREADS OCC Abnormal NONE SEEN [facility] Comment on above: Order Comment: No: D o not add to previous draw Criteria for reflexing a culture was not met. Please call the lab at 7668 within 24 hours of collection time if culture is needed Performed By: #### 3 0965 #### [facility] [address] [place] [address], [facility] Nitrite Ql (U) Negative Normal NEGATIVE [facility] Comment on above: Order Comment: No: D o not add to previous draw Criteria for reflexing a culture was not met. Please call the lab at 7668 within 24 hours of collection time if culture is needed Performed By: #### 3 0965 #### [facility] [address] [place] [address], [facility] pH (U) 5.0 [pH] Normal 5.0-8.0 [facility] Comment on above: Order Comment: No: D o not add to previous draw Criteria for reflexing a culture was not met. Please call the lab at 7668 within 24 hours of collection time if culture is needed Performed By: #### 3 0965 #### [facility] [address] [place] [address], [facility] Protein Ql (U) TRACE Abnormal NEGATIVE [facility] Comment on above: Order Comment: No: D o not add to previous draw Criteria for reflexing a culture was not met. Please call the lab at 7668 within 24 hours of collection time if culture is needed Performed By: #### 3 0965 #### [facility] [address] [place] [address], [facility] RBC 6-10 Abnormal NONE SEEN [facility] Comment on above: Order Comment: No: D o not add to previous draw Criteria for reflexing a culture was not met. Please call the lab at 7668 within 24 hours of collection time if culture is needed Performed By: #### 3 0965 #### [facility] [address] [place] [address], [facility] SPEC GRAV 1.016 Normal 1.015-1.020 [facility] Comment on above: Order Comment: No: D o not add to previous draw Criteria for reflexing a culture was not met. Please call the lab at 7668 within 24 hours of collection time if culture is needed Performed By: #### 3 0965 #### [facility] [address] WBC UA 3-5 Abnormal NONE SEEN [facility] Comment on above: Order Comment: No: D o not add to previous draw Criteria for reflexing a culture was not met. Please call the lab at 7668 within 24 hours of collection time if culture is needed Performed By: #### 3 0965 #### [facility] [address] APTTon 02-21-2022 aPTT Coag (Bld) [Time] 38.0 s High 25.0-35.0 [facility] Comment on above: Order Comment: Check Chest Tube Position, ON ARRIVAL TO CVU Result Comment: ALL RESULTS MUST BE INTERPRETED WITH RESPECT TO BLOOD DRAWING ARTIFACT OR DILUTION ERROR OF ANTICOAGULANT AT THE TIME OF SAMPLING. THE APTT SHOULD NOT BE USED TO MONITOR UNFRACTIONATED HEPARIN THERAPY, THIS LABORATORY NO LONGER HAS AN ESTABLISHED THERAPEUTIC RANGE BASED ON THE APTT. IT IS RECOMMENDED THAT THE [facility] - HEPARIN ASSAY (ANTI-XA ACTIVITY) BE USED FOR THIS PURPOSE. Performed By: #### 5 7307, 17717 ####[facility] BASIC METABOLIC PANELon Calcium [Mass/Vol] 8.6 mg/dL Normal 8.6-10.3 [facility] Comment on above: Order Comment: Check Chest Tube Position, ON ARRIVAL TO CVU Performed By: #### 1 0070, 51341 ####[facility] [place] [address], [facility] Chloride [Moles/Vol] 107 mmol/L Normal 98-107 [facility] Comment on above: Order Comment: Check Chest Tube Position, ON ARRIVAL TO CVU Performed By: #### 1 69, 56594 ####[facility] [place] [address], [facility] CO2 [Moles/Vol] 18 mmol/L Low 21-31 [facility] Comment on above: Order Comment: Check Chest Tube Position, ON ARRIVAL TO CVU Performed By: #### 1 69, 55418 ####[facility] [place] [address], [facility] Creatinine [Mass/Vol] 1.69 mg/dL High 0.70-1.30 [facility] Comment on above: Order Comment: Check Chest Tube Position, ON ARRIVAL TO CVU Performed By: #### 1 69, 39388 ####[facility] [facility] EGFR 42 ml/min/1.73sq m Abnormal >60 [facility] Comment on above: Order Comment: Check Chest Tube Position, ON ARRIVAL TO CVU Result Comment: The [facility]'s estimated glomerular filtration rate (eGFR) will no longer include consideration of race in its calculation. The National [employer] Foundation's eGFR Task Force developed new recommendations for the estimation of the glomerular filtration rate in the [place] They recommend immediate implementation of the new equation refit without the race variable in all laboratories because the calculation does not include race. In addition to not including race in the calculation and reporting, it included diversity in its development, and has acceptable performance characteristics and potential consequences that do not disproportionately affect any one group of individuals. Performed By: #### 1 69, 77459 ####[facility] [address], [place] Glucose [Mass/Vol] 155 mg/dL High 70-100 [facility] Comment on above: Order Comment: Check Chest Tube Position, ON ARRIVAL TO CVU Performed By: #### 1 0, 63654 ####[facility] [place] [address], [place] Potassium [Moles/Vol] 4.6 mmol/L Normal 3.5-5.1 [facility] Comment on above: Order Comment: Check Chest Tube Position, ON ARRIVAL TO CVU Performed By: #### 1 69, 94146 ####[facility] [place] [address], [place] Sodium [Moles/Vol] 136 mmol/L Normal 136-145 [facility] Comment on above: Order Comment: Check Chest Tube Position, ON ARRIVAL TO CVU Performed By: #### 1 69, 04940 ####[facility] [place] [address], [place] Urea nitrogen [Mass/Vol] 29 mg/dL High 7-25 [facility] Comment on above: Order Comment: Check Chest Tube Position, ON ARRIVAL TO CVU Performed By: #### 1 69, 39873 ####[facility] [place] [address], [place] Calcium [Mass/Vol] 8.5 mg/dL Low 8.6-10.3 [facility] Comment on above: Order Comment: evalu ate for Effusion Performed By: #### 0 0071, 66581, 39557 ####[facility] [place] [address], [place] Chloride [Moles/Vol] 108 mmol/L High 98-107 [facility] Comment on above: Order Comment: evalu ate for Effusion Performed By: #### 0 0071, 42042, 13841 ####[facility] [place] [address], [place] CO2 [Moles/Vol] 21 mmol/L Normal 21-31 [facility] Comment on above: Order Comment: evalu ate for Effusion Performed By: #### 0 0071, 46675, 29110 ####[facility] [place] [address], [facility] Creatinine [Mass/Vol] 1.27 mg/dL Normal 0.70-1.30 [facility] Comment on above: Order Comment: evalu ate for Effusion Performed By: #### 0 0071, 38015, 58723 ####[facility] [place] [address], [facility] EGFR 59 ml/min/1.73sq m Abnormal >60 [facility] Comment on above: Order Comment: evalu ate for Effusion Result Comment: The [facility]'s estimated glomerular filtration rate (eGFR) will no longer include consideration of race in its calculation. The National Kid[employer] Foundation's eGFR Task Force developed new recommendations for the estimation of the glomerular filtration rate in the [place] They recommend immediate implementation of the new equation refit without the race variable in all laboratories because the calculation does not include race. In addition to not including race in the calculation and reporting, it included diversity in its development, and has acceptable performance characteristics and potential consequences that do not disproportionately affect any one group of individuals. Performed By: #### 0 0071, 44501, 11245 ####[facility] [facility] [place] [address], [facility] Glucose [Mass/Vol] 118 mg/dL High 70-100 [facility] Comment on above: Order Comment: evalu ate for Effusion Performed By: #### 0 0071, 86866, 52722 ####[facility] [place] [address], [facility] Potassium [Moles/Vol] 4.4 mmol/L Normal 3.5-5.1 [facility] Comment on above: Order Comment: evalu ate for Effusion Performed By: #### 0 0071, 49502, 63114 ####[facility] [place] [address], [place] Sodium [Moles/Vol] 137 mmol/L Normal 136-145 [facility] Comment on above: Order Comment: evalu ate for Effusion Performed By: #### 0 0071, 15808, 06220 ####[facility] [place] [address], [facility] Urea nitrogen [Mass/Vol] 22 mg/dL Normal 7-25 [facility] Comment on above: Order Comment: evalu ate for Effusion Performed By: #### 0 0071, 98054, 17768 ####[facility] [place] [address], [facility] CBC COMPLETE BLOOD COUNTon 0 02-21-2022 Erythrocyte distribution width (RBC) [Ratio] 14.6 % Normal 11.5-15.0 [facility] Comment on above: Order Comment: No: D o not add to previous draw Performed By: #### 5 0608 #### [facility] [address] [place] [address], [facility] Hematocrit (Bld) [Volume fraction] 30.4 % Low 39.0-50.0 [facility] Comment on above: Order Comment: No: D o not add to previous draw Performed By: #### 5 0608 #### [facility] [address] [place] [address], [facility] Hemoglobin (Bld) [Mass/Vol] 10.4 g/dL Low 13.0-17.0 [facility] Comment on above: Order Comment: No: D o not add to previous draw Performed By: #### 5 0608 #### [facility] [address] [place] [address], [place] IMM PLATELET FRAC 5.8 % Normal 0.8-6.3 [facility] Comment on above: Order Comment: No: D o not add to previous draw Performed By: #### 5 0608 #### [facility] [address] [place] [address], [place] MCH (RBC) [Entitic mass] 31.0 pg Normal 27.0-33.0 [facility] Comment on above: Order Comment: No: D o not add to previous draw Performed By: #### 5 0608 #### [facility] [address] [facility]. [address] MCHC (RBC) [Mass/Vol] 34.2 g/dL Normal 32.0-35.0 [facility] Comment on above: Order Comment: No: D o not add to previous draw Performed By: #### 5 0608 #### [facility] [address] MCV (RBC) [Entitic vol] 90.7 fL Normal 82.0-98.0 [facility] Comment on above: Order Comment: No: D o not add to previous draw Performed By: #### 5 0608 #### [facility] [address] Nucleated RBC/100 WBC (Bld) [Ratio] 0 % Normal 0-0 [facility] Comment on above: Order Comment: No: D o not add to previous draw Performed By: #### 5 0608 #### [facility] [address] [facility] [place] [address], [facility] PLAT CNT 83 10*3/uL Low 150-400 [facility] Comment on above: Order Comment: No: D o not add to previous draw Performed By: #### 5 0608 #### [facility] [address] [facility] [place] [address], [facility] RBC (Bld) [#/Vol] 3.35 10*6/uL Low 4.20-5.70 [facility] Comment on above: Order Comment: No: D o not add to previous draw Performed By: #### 5 0608 #### [facility] [address] [facility] [place] [address], [facility] WBC (Bld) [#/Vol] 6.89 10*3/uL Normal 4.00-10.60 [facility] Comment on above: Order Comment: No: D o not add to previous draw Performed By: #### 5 0608 #### [facility] [address] [place] [address], [facility] COOXIMETRYon 02-21-2022 COHB 2 % Normal [facility] Comment on above: Performed By: #### 7 0207 ####[facility] [place] [address], [facility] METHB 0 % Normal [facility] Comment on above: Performed By: #### 7 0207 ####[facility] [place] [address], [facility] Oxygen saturation in Blood 53.5 % Low 65.0-75.0 The [facility] Comment on above: Performed By: #### 7 0207 ####[facility] [place] [address], [facility] THB 11.6 g/dL Normal [facility] Comment on above: Performed By: #### 7 0207 ####[facility] [facility] [place] [address], [facility] LACTATE BLOODon 02-21-2022 Lactate [Moles/Vol] 1.0 mmol/L Normal .5-2.2 [facility] Comment on above: Order Comment: Evalu ate for Pneumothorax Performed By: #### 1 0054 ####[facility] [place] [address], [facility] MAGNESIUM BLOODon 02-21-2022 Magnesium [Mass/Vol] 2.3 mg/dL Normal 1.9-2.7 [facility] Comment on above: Order Comment: Check Chest Tube Position, ON ARRIVAL TO CVU Performed By: #### 1 4800, 08762 ####[facility] [facility].[place] [id number], [facility] Magnesium [Mass/Vol] 1.9 mg/dL Normal 1.9-2.7 [facility] Comment on above: Order Comment: evalu ate for Effusion Performed By: #### 0 0071, 38112, 21143 ####[facility], [place] [address] Operative Reporton Operative Report MR#: [id number] I [facility] Pt. Name: Ignacio Amin Room #: JATIN [id number] Discharge Date: Birthdate: 1945 OPERATIVE REPORT DATE OF SURGERY: 02/20/2022 SURGEON: Christiane Olson MD PREOPERATIVE DIAGNOSIS: Coronary artery disease with 85% distal left main lesion, 85% proximal left main LAD lesion, 85% proximal circumflex lesion, 70% mid-right coronary lesion, preserved left ventricular function, left ventricular hypertrophy. POSTOPERATIVE DIAGNOSIS: Coronary artery disease with 85% distal left main lesion, 85% proximal left main LAD lesion, 85% proximal circumflex lesion, 70% mid-right coronary lesion, preserved left ventricular function, left ventricular hypertrophy. PROCEDURE: Coronary bypass grafting x3, with LANGSTON to LAD, saphenous vein to the obtuse marginal branch of the circumflex and saphenous vein to the PDA of the right coronary artery, and the vascular vein harvesting of the left greater saphenous vein. ANESTHESIA: General. INDICATIONS: The patient is a 76-year-old gentleman who has left ventricular hypertrophy who has AICD in place. He presents with angina, following with the work up with the findings above. He was admitted for coronary artery bypass grafting. Informed consent was obtained from the patient. The patient remained pain free in the hospital. The patient was on a heparin drip. PROCEDURE IN DETAIL: The patient was brought to the operating room in the morning of . Line was begun and holding prior to bring him to the operating room. After placing him on the operating table, IV access was further established. General anesthesia was induced. Colvin catheter was placed. Ehrhardt-Sundar catheter was placed, which demonstrated mildly elevated pulmonary pressures and cardiac index of 1.8. The patient's chest and lungs were prepped and draped in sterile fashion. A sternotomy was performed, and simultaneously vein was harvested utilizing the endoscopic technique of the left greater saphenous vein. The saphenous vein was good quality and caliber, and prepared in the usual manner. His leg was closed later in the case. Following sternotomy, a left internal mammary artery was dissected from the chest wall. It was good quality and caliber. The patient was heparinized. The mammary artery was transected distally, impaired, and anastomosed into the LAD at a later time. Sternal retractors were placed. Pericardium was opened. Pericardial stay sutures were placed. The aorta was cannulated in usual fashion. Venous cannulation was affecting the right atrial appendage and pigtail catheter was placed in the semi-aorta. The patient was placed in cardiopulmonary bypass. We inspected the coronary arteries. The LAD was 2.5 mm vessel. The obtuse marginal branch was 2.25 mm vessel, and the proximal PDA was 2 mm vessel. All these vessels were completely free of disease. Cross clamp was applied. Cardioplegia was given with satisfactory arrest of the heart. The obtuse marginal branch was exposed. Arteriotomy was performed, and a piece of reverse saphenous vein was anastomosed in end-to-side fashion utilizing running 7-0 Prolene. Next, the proximal PDA was exposed. Arteriotomy was performed, and another piece of reverse saphenous vein was anastomosed end-to-side fashion utilizing running 7-0 Prolene. Finally, the LAD was exposed. The arteriotomy was performed, and the mammary artery was brought to the slot pericardium protecting the phrenic nerve, and it was anastomosed end-to-side fashion to the LAD with a running 7-0 Prolene. Bulldog was removed. Hemostasis was adequate. There was no worry that we gave him dose of quadriplegia between each anastomosis secondary to the patient's hypertrophy. Cross clamp was removed, heart fibrillated, we counter shot once and then we put a temporary ventricular pacing wire to pace him to keep his ventricle empty because of the slight AI that the patient had we cannot allow distention on this. Partial occluding clamp was placed on the aorta. Antegrade catheter was removed branch. Vein graft of the obtuse marginal branch and the vein graft to the PDA was measured in appropriate length and anastomosed end-to-side fashion utilizing running 6-0 Prolene. Deairing was carried out. Proximal and distal anastomosis were inspected, and felt to be hemostatic. Ventilation was reestablished and we weaned from cardiopulmonary bypass without difficulty. Dopplers brought up with excellent flow in the vein grafts. Protamine administration was begun, and venous and arterial decannulation were affected. We gave platelets and additional Protamine based on the ACTs. With this, he had fairly adequate hemostasis. An atrial wire in addition to the ventricular pacer wire was placed. Pleural and mediastinal drains and chest tubes were placed that were 32 Hebrew. The sternum was reapproximated with #6 wire. The fascia was (more content not included)... Normal [facility] PHOSPHORUS BLOODon Phosphate [Mass/Vol] 5.2 mg/dL High 2.5-5.0 [facility] Comment on above: Order Comment: evalu ate for Effusion Performed By: #### 0 0071, 27853, 80753 ####[facility] POC GLUCOSE LABon 02-21-2022 Glucose [Mass/Vol] 124 mg/dL High 70-100 [facility] Comment on above: Performed By: #### 3 1595 #### [facility] [address] PORTABLE CHEST 1 VIEWon PORTABLE CHEST 1 VIEW [facility] Department of Radiology [address] [place] [id number] ======== Patient Name: IGNACIO AMIN : 1945 Sex: M Age: Race: White Pt. Location: [id number] Patient Status: I Ordered Date: 02/21/2022 7:00:00 AM Completed Date: 02/21/2022 07:09 AM Requesting Provider: CHRISSY HERNANDEZ Attending Provider: ROSI GARDINER Report Copy To: Signs & Symptoms: Post CABG History: Comments: Check Chest Tube Position Exam: PORTABLE CHEST 1 VIEW ======== PORTABLE CHEST 1 VIEW 02/21/2022 7:09 AM CLINICAL INDICATIONS: Post CABG TECHNOLOGIST COMMENTS: Post op - Evaluate for pneumothorax QUESTION FOR THE RADIOLOGIST: Check Chest Tube Position PROTOCOL: AP(PA) view was obtained. COMPARISON: 02/20/2022 FINDINGS: An AICD is present. A right IJ catheter terminates in the mid SVC region. The heart is enlarged with vascular prominence centrally. The Ehrhardt-Sundar catheter tip overlies the main pulmonary outflow tract. A left chest tube remains in place with no visible pneumothorax. Strandy perihilar and basilar infiltrates are present some worsening volume loss in the lung bases is blunting of the right costophrenic angle IMPRESSION: Slight worsening of pulmonary infiltrates. Support lines and tubes remain in place. Electronically signed: Jaspreet Hastings. Transcribed by: [id number], User Resident: Electronically Signed by: JASPREET HASTINGS @ 02/21/2022 08:00 AM Normal [facility] Comment on above: Order Comment: Check Chest Tube Position, ON ARRIVAL TO CVU PROTHROMBIN TIMEon 2 INR Coag (PPP) [Relative time] 1.36 {INR} High 0.91-1.16 [facility] Comment on above: Order Comment: Check Chest Tube Position, ON ARRIVAL TO CVU Result Comment: ACCC P RECOMMENDED INR FOR WARFARIN THERAPY -------- ------- CONDITION INR PROPHYLAXIS OF VENOUS THROMBOSIS 2-3 (HIGH-RISK SURGERY) TREATMENT OF VENOUS THROMBOSIS 2-3 TREATMENT OF PULMONARY EMBOLISM 2-3 PREVENTION OF SYSTEMIC EMBOLISM: 2-3 ACUTE MYOCARDIAL INFARCTION TISSUE HEART VALVES VALVULAR HEART DISEASE ATRIAL FIBRILLATION RECURRENT SYSTEMIC EMBOLISM MECHANICAL HEART VALVE 2.5-3.5 FROM: ORAL ANTICOAGULANTS. MECHANISM OF ACTION, CLINICAL EFFECTIVENESS, AND OPTIMAL THERAPEUTIC RANGE. CHEST 1995;108:231S-246S. Performed By: #### 5 7307, 71949 ####[facility] [place] [address], [facility] PT Coag (PPP) [Time] 16.7 s High 12.3-14.8 [facility] Comment on above: Order Comment: Check Chest Tube Position, ON ARRIVAL TO CVU Result Comment: ALL RESULTS MUST BE INTERPRETED WITH RESPECT TO BLOOD DRAWING ARTIFACT OR DILUTION ERROR OF ANTICOAGULANT AT THE TIME OF SAMPLING. Performed By: #### 5 7307, 63142 ####[facility] [place] [address], [facility] ACTIVATED CLOTTING TIMEon ACTIVATED CLOTTING TIME 110 sec Normal 82-152 [facility] Comment on above: Performed By: #### 8 5499 #### [facility] [address] [place] [address], [place] ACTIVATED CLOTTING TIME 116 sec Normal 82-152 [facility] Comment on above: Performed By: #### 3 0739 #### [facility] [address] [place] [address], [place] ACTIVATED CLOTTING TIME 134 sec Normal 82-152 [facility] Comment on above: Performed By: #### 8 5499 #### [facility] [address] [place] [address], [place] ACTIVATED CLOTTING TIME 537 sec High 82-152 [facility] Comment on above: Performed By: #### 3 1595 #### [facility] [address] [place] [address], [facility] ACTIVATED CLOTTING TIME 692 sec High 82-152 [facility] Comment on above: Performed By: #### 3 1595 #### [facility] [address] [place] [address], [facility] ACTIVATED CLOTTING TIME 861 sec High 82-152 [facility] Comment on above: Performed By: #### 8 5499 #### [facility] [address] [place] [address], [facility] ACTIVATED CLOTTING TIME 651 sec High 82-152 [facility] Comment on above: Performed By: #### 3 2044 #### [facility] [address] [place] [address], [facility] ACTIVATED CLOTTING TIME 140 sec Normal 82-152 [facility] Comment on above: Performed By: #### 8 5499 #### [facility] [address] [place] [address], [facility] APTTon 02-20-2022 aPTT Coag (Bld) [Time] 33.7 s Normal 25.0-35.0 [facility] Comment on above: Order Comment: Check Chest Tube Position, ON ARRIVAL TO CVU Result Comment: ALL RESULTS MUST BE INTERPRETED WITH RESPECT TO BLOOD DRAWING ARTIFACT OR DILUTION ERROR OF ANTICOAGULANT AT THE TIME OF SAMPLING. THE APTT SHOULD NOT BE USED TO MONITOR UNFRACTIONATED HEPARIN THERAPY, THIS LABORATORY NO LONGER HAS AN ESTABLISHED THERAPEUTIC RANGE BASED ON THE APTT. IT IS RECOMMENDED THAT THE UFH - HEPARIN ASSAY (ANTI-XA ACTIVITY) BE USED FOR THIS PURPOSE. Performed By: #### 5 6101, 57139 ####[facility] [place] [address], [facility] aPTT Coag (Bld) [Time] 39.1 s High 25.0-35.0 [facility] Comment on above: Result Comment: ALL RESULTS MUST BE INTERPRETED WITH RESPECT TO BLOOD DRAWING ARTIFACT OR DILUTION ERROR OF ANTICOAGULANT AT THE TIME OF SAMPLING. THE APTT SHOULD NOT BE USED TO MONITOR UNFRACTIONATED HEPARIN THERAPY, THIS LABORATORY NO LONGER HAS AN ESTABLISHED THERAPEUTIC RANGE BASED ON THE APTT. IT IS RECOMMENDED THAT THE UFH - HEPARIN ASSAY (ANTI-XA ACTIVITY) BE USED FOR THIS PURPOSE. Performed By: #### 5 6101, 79864, 80185 ####[facility] [place] [address], [facility] aPTT Coag (Bld) [Time] 109.3 s Critically high 25.0-35.0 [facility] Comment on above: Order Comment: Check Chest Tube Position, ON ARRIVAL TO CVU Result Comment: Resu lt checked and called. Accurately read back by Marie Silva at 0610 Performed By: #### 3 0477, 76448, 53472 ####[facility] [facility].[address] ARTERIAL BLOOD GAS WITH ICAo n 02-20-2022 BASE EXCESS -5 mmol/L Low -2-3 [facility] Comment on above: Performed By: #### 3 2043 #### [facility] [address] [place] [address], [facility] DELIVERY SYSTEMS VENTILATOR Normal [facility] Comment on above: Performed By: #### 3 2043 #### [facility] [address] [place] [address], [facility] FIO2 40 % Normal [facility] Comment on above: Performed By: #### 3 2043 #### [facility] [address] [place] [address], [facility] HCO3 (Bld) [Moles/Vol] 21 mmol/L Normal 21-28 [facility] Comment on above: Performed By: #### 3 2043 #### [facility] [address] [place] [address], [facility] IONIZED CALCIUM 1.20 mmol/L Normal 1.13-1.32 [facility] Comment on above: Performed By: #### 3 2043 #### [facility] [address] [place] [address], [place] MIN VOLUME 8.1 Normal [facility] Comment on above: Performed By: #### 3 2043 #### [facility] [address] [place] [address], [place] MODALITY Positive Normal [facility] Comment on above: Performed By: #### 3 2043 #### [facility] [address] [place] [address], [place] Oxygen (Bld) [Partial pressure] 125 mm[Hg] Critically high 83-108 [facility] Comment on above: Performed By: #### 3 2043 #### [facility] [address] [place] [address], [place] Oxygen saturation in Blood 97.3 % High 94.0-97.0 [facility] Comment on above: Performed By: #### 3 2043 #### [facility] [address] [place] [address], [place] PCO2 38 mmHg Normal 35-45 [facility] Comment on above: Performed By: #### 3 2043 #### [facility] [address] [place] [address], [place] PEEP 5.0 CMH20 Normal [facility] Comment on above: Performed By: #### 3 2043 #### [facility] [address] [place] [address], [place] PF RATIO 313 mmHg Normal [facility] Comment on above: Performed By: #### 3 2043 #### [facility] [address] [place] [address], [place] pH (Bld) 7.34 [pH] Low 7.35-7.45 [facility] Comment on above: Performed By: #### 3 2043 #### [facility] [address] [place] [address], [place] PRESSURE SUPPORT 8 Normal [facility] Comment on above: Performed By: #### 3 2043 #### [facility] [address] [place] [address], [facility] BASE EXCESS -4 mmol/L Low -2-3 [facility] Comment on above: Order Comment: on ar rival to CVU Performed By: #### 3 0739 #### [facility] [address] [place] [address], [facility] DELIVERY SYSTEMS VENTILATOR Normal [facility] Comment on above: Order Comment: on ar rival to CVU Performed By: #### 3 0739 #### [facility] [address] [place] [address], [facility] FIO2 50 % Normal [facility] Comment on above: Order Comment: on ar rival to CVU Performed By: #### 3 0739 #### [facility] [address] [place] [address], [facility] HCO3 (Bld) [Moles/Vol] 22 mmol/L Normal 21-28 [facility] Comment on above: Order Comment: on ar rival to CVU Performed By: #### 3 0739 #### [facility] [address] [place] [address], [facility] IONIZED CALCIUM 1.20 mmol/L Normal 1.13-1.32 [facility] Comment on above: Order Comment: on ar rival to CVU Performed By: #### 3 0739 #### [facility] [address] [place] [address], [place] MIN VOLUME 7.4 Normal [facility] Comment on above: Order Comment: on ar rival to CVU Performed By: #### 3 0739 #### [facility] [address] [place] [address], [place] MODALITY SIMV Normal [facility] Comment on above: Order Comment: on ar rival to CVU Performed By: #### 3 0739 #### [facility] [address] [place] [address], [facility] Oxygen (Bld) [Partial pressure] 150 mm[Hg] Critically high 83-108 [facility] Comment on above: Order Comment: on ar rival to CVU Performed By: #### 3 0739 #### [facility] [address] [place] [address], [place] Oxygen saturation in Blood 97.6 % High 94.0-97.0 [facility] Comment on above: Order Comment: on ar rival to CVU Performed By: #### 3 0739 #### [facility] [address] [place] [address], [place] PCO2 42 mmHg Normal 35-45 [facility] Comment on above: Order Comment: on ar rival to CVU Performed By: #### 3 0739 #### [facility] [address] [place] [address], [place] PEEP 8.0 CMH20 Normal [facility] Comment on above: Order Comment: on ar rival to CVU Performed By: #### 3 0739 #### [facility] [address] [place] [address], [place] PF RATIO 300 mmHg Normal [facility] Comment on above: Order Comment: on ar rival to CVU Performed By: #### 3 0739 #### [facility] [address] [place] [address], [place] pH (Bld) 7.32 [pH] Low 7.35-7.45 [facility] Comment on above: Order Comment: on ar rival to CVU Performed By: #### 3 0739 #### [facility] [address] [place] [address], [place] PRESSURE SUPPORT 8 Normal [facility] Comment on above: Order Comment: on ar rival to CVU Performed By: #### 3 0739 #### [facility] [address] [place] [address], [place] Respiratory rate 16 /min Normal [facility] Comment on above: Order Comment: on ar rival to CVU Performed By: #### 3 0739 #### [facility] [address] [place] [address], [facility] TIDAL VOLUME (VT) CC 450 Normal [facility] Comment on above: Order Comment: on ar rival to CVU Performed By: #### 3 0739 #### [facility] [address] [place] [address], [facility] BASIC METABOLIC PANELon 08-3 Calcium [Mass/Vol] 8.4 mg/dL Low 8.6-10.3 [facility] Comment on above: Order Comment: evalu ate for Effusion Performed By: #### 1 0070, 81223, 38370, 42988, 35367 ####[facility] [place] [address], [facility] Chloride [Moles/Vol] 111 mmol/L High 98-107 [facility] Comment on above: Order Comment: evalu ate for Effusion Performed By: #### 1 0070, 72470, 87711, 21491, 03003 ####[facility] [place] [address], [facility] CO2 [Moles/Vol] 22 mmol/L Normal 21-31 [facility] Comment on above: Order Comment: evalu ate for Effusion Performed By: #### 1 0070, 14436, 29258, 86421, 05443 ####[facility] [place] [address], [facility] Creatinine [Mass/Vol] 0.79 mg/dL Normal 0.70-1.30 [facility] Comment on above: Order Comment: evalu ate for Effusion Performed By: #### 1 0070, 48409, 93257, 90656, 46913 ####[facility] [id number], [facility] GFR/1.73 sq M.predicted among non-blacks MDRD (S/P/Bld) [Vol rate/Area] mL/min/{1.73_m2} Normal >60 [facility] Comment on above: Order Comment: evalu ate for Effusion Result Comment: [facility]'s estimated glomerular filtration rate (eGFR) will no longer include consideration of race in its calculation. The National Kid[employer] Foundation's eGFR Task Force developed new recommendations for the estimation of the glomerular filtration rate in the [place] They recommend immediate implementation of the new equation refit without the race variable in all laboratories because the calculation does not include race. In addition to not including race in the calculation and reporting, it included diversity in its development, and has acceptable performance characteristics and potential consequences that do not disproportionately affect any one group of individuals. Performed By: #### 1 0070, 70342, 99501, 33055, 02613 ####[facility] [place] [address], [facility] Glucose [Mass/Vol] 124 mg/dL High 70-100 [facility] Comment on above: Order Comment: evalu ate for Effusion Performed By: #### 1 0070, 32906, 84356, 43783, 27887 ####[facility] [place] [address], [facility] Potassium [Moles/Vol] 4.5 mmol/L Normal 3.5-5.1 [facility] Comment on above: Order Comment: evalu ate for Effusion Performed By: #### 1 0070, 22734, 05442, 96001, 10516 ####[facility] [place] [address], [place] Sodium [Moles/Vol] 140 mmol/L Normal 136-145 [facility] Comment on above: Order Comment: evalu ate for Effusion Performed By: #### 1 0070, 57040, 23878, 05061, 30043 ####[facility] [place] [address], [place] Urea nitrogen [Mass/Vol] 16 mg/dL Normal 7-25 [facility] Comment on above: Order Comment: evalu ate for Effusion Performed By: #### 1 0070, 15163, 09992, 81869, 30477 ####[facility] [place] [address], [facility] Calcium [Mass/Vol] 7.8 mg/dL Low 8.6-10.3 [facility] Comment on above: Performed By: #### 1 0070, 87569 ####[facility] [place] [address], [facility] Chloride [Moles/Vol] 112 mmol/L High 98-107 [facility] Comment on above: Performed By: #### 1 0070, 28192 ####[facility] [place] [address], [facility] CO2 [Moles/Vol] 24 mmol/L Normal 21-31 [facility] Comment on above: Performed By: #### 1 0070, 58144 ####[facility] [facility] [place] [address], [facility] Creatinine [Mass/Vol] 0.81 mg/dL Normal 0.70-1.30 [facility] Comment on above: Performed By: #### 1 0070, 90193 ####[place] [id number] [facility] [place] [address], [facility] GFR/1.73 sq M.predicted among non-blacks MDRD (S/P/Bld) [Vol rate/Area] mL/min/{1.73_m2} Normal >60 [facility] Comment on above: Result Comment: [facility]'s estimated glomerular filtration rate (eGFR) will no longer include consideration of race in its calculation. The National Kidney Foundation's eGFR Task Force developed new recommendations for the estimation of the glomerular filtration rate in the [place] They recommend immediate implementation of the new equation refit without the race variable in all laboratories because the calculation does not include race. In addition to not including race in the calculation and reporting, it included diversity in its development, and has acceptable performance characteristics and potential consequences that do not disproportionately affect any one group of individuals. Performed By: #### 1 69, 83408 ####[facility] [address], [place] Glucose [Mass/Vol] 105 mg/dL High 70-100 [facility] Comment on above: Performed By: #### 1 69, 27699 ####[facility] [place] [address], [place] Potassium [Moles/Vol] 4.0 mmol/L Normal 3.5-5.1 [facility] Comment on above: Performed By: #### 1 69, 43601 ####[facility] [place] [address], [place] Sodium [Moles/Vol] 142 mmol/L Normal 136-145 [facility] Comment on above: Performed By: #### 1 69, 25056 ####[facility] [place] [address], [place] Urea nitrogen [Mass/Vol] 17 mg/dL Normal 7-25 [facility] Comment on above: Performed By: #### 1 69, 99735 ####[facility] [place] [address], [place] Calcium [Mass/Vol] 8.9 mg/dL Normal 8.6-10.3 [facility] Comment on above: Order Comment: Check Chest Tube Position, ON ARRIVAL TO CVU Performed By: #### 0 0071, 73058, 45862 ####[facility] [place] [address], [place] Chloride [Moles/Vol] 110 mmol/L High 98-107 [facility] Comment on above: Order Comment: Check Chest Tube Position, ON ARRIVAL TO CVU Performed By: #### 0 0071, 74280, 96221 ####[facility] [place] [address], [facility] CO2 [Moles/Vol] 23 mmol/L Normal 21-31 [facility] Comment on above: Order Comment: Check Chest Tube Position, ON ARRIVAL TO CVU Performed By: #### 0 0071, 68791, 19213 ####[facility] [place] [address], [facility] Creatinine [Mass/Vol] 0.90 mg/dL Normal 0.70-1.30 [facility] Comment on above: Order Comment: Check Chest Tube Position, ON ARRIVAL TO CVU Performed By: #### 0 0071, 64627, 68673 ####[facility] [facility] [place] [address], [facility] GFR/1.73 sq M.predicted among non-blacks MDRD (S/P/Bld) [Vol rate/Area] mL/min/{1.73_m2} Normal >60 [facility] Comment on above: Order Comment: Check Chest Tube Position, ON ARRIVAL TO CVU Result Comment: [facility]'s estimated glomerular filtration rate (eGFR) will no longer include consideration of race in its calculation. The [employer]'s eGFR Task Force developed new recommendations for the estimation of the glomerular filtration rate in the [place] They recommend immediate implementation of the new equation refit without the race variable in all laboratories because the calculation does not include race. In addition to not including race in the calculation and reporting, it included diversity in its development, and has acceptable performance characteristics and potential consequences that do not disproportionately affect any one group of individuals. Performed By: #### 0 0071, 17908, 44598 ####[facility] [facility] [place] [address], [place] Glucose [Mass/Vol] 91 mg/dL Normal 70-100 [facility] Comment on above: Order Comment: Check Chest Tube Position, ON ARRIVAL TO CVU Performed By: #### 0 0071, 23956, 53612 ####[facility] [place] [address], [place] Potassium [Moles/Vol] 3.7 mmol/L Normal 3.5-5.1 [facility] Comment on above: Order Comment: Check Chest Tube Position, ON ARRIVAL TO CVU Performed By: #### 0 0071, 23133, 84936 ####[facility] Sodium [Moles/Vol] 141 mmol/L Normal 136-145 [facility] Comment on above: Order Comment: Check Chest Tube Position, ON ARRIVAL TO CVU Performed By: #### 0 0071, 46532, 61641 ####[facility] Urea nitrogen [Mass/Vol] 23 mg/dL Normal 7-25 [facility] Comment on above: Order Comment: Check Chest Tube Position, ON ARRIVAL TO CVU Performed By: #### 0 0071, 68158, 76661 ####[facility] CBC COMPLETE BLOOD COUNTon 0 - Erythrocyte distribution width (RBC) [Ratio] 13.9 % Normal 11.5-15.0 [facility] Comment on above: Order Comment: Check Chest Tube Position, ON ARRIVAL TO CVU Performed By: #### 5 0608 ####[facility] Hematocrit (Bld) [Volume fraction] 33.9 % Low 39.0-50.0 [facility] Comment on above: Order Comment: Check Chest Tube Position, ON ARRIVAL TO CVU Performed By: #### 5 0608 ####[facility] Hemoglobin (Bld) [Mass/Vol] 11.1 g/dL Low 13.0-17.0 [facility] Comment on above: Order Comment: Check Chest Tube Position, ON ARRIVAL TO CVU Performed By: #### 5 0608 ####[facility] [facility].[address] IMM PLATELET FRAC 5.9 % Normal 0.8-6.3 [facility] Comment on above: Order Comment: Check Chest Tube Position, ON ARRIVAL TO CVU Performed By: #### 5 0608 ####[facility] [place] [address], [facility] MCH (RBC) [Entitic mass] 30.2 pg Normal 27.0-33.0 [facility] Comment on above: Order Comment: Check Chest Tube Position, ON ARRIVAL TO CVU Performed By: #### 5 0608 ####[address] MCHC (RBC) [Mass/Vol] 32.7 g/dL Normal 32.0-35.0 [facility] Comment on above: Order Comment: Check Chest Tube Position, ON ARRIVAL TO CVU Performed By: #### 5 0608 ####[facility] MCV (RBC) [Entitic vol] 92.4 fL Normal 82.0-98.0 [facility] Comment on above: Order Comment: Check Chest Tube Position, ON ARRIVAL TO CVU Performed By: #### 5 0608 ####[place] [id number] [address] Nucleated RBC/100 WBC (Bld) [Ratio] 0 % Normal 0-0 [facility] Comment on above: Order Comment: Check Chest Tube Position, ON ARRIVAL TO CVU Performed By: #### 5 0608 ####[address] PLAT CNT 98 10*3/uL Low 150-400 [facility] Comment on above: Order Comment: Check Chest Tube Position, ON ARRIVAL TO CVU Performed By: #### 5 0608 ####[address] [place] [address], [facility] RBC (Bld) [#/Vol] 3.67 10*6/uL Low 4.20-5.70 [facility] Comment on above: Order Comment: Check Chest Tube Position, ON ARRIVAL TO CVU Performed By: #### 5 0608 ####[facility] [place] [address], [facility] WBC (Bld) [#/Vol] 9.42 10*3/uL Normal 4.00-10.60 [facility] Comment on above: Order Comment: Check Chest Tube Position, ON ARRIVAL TO CVU Performed By: #### 5 0608 ####[facility] Erythrocyte distribution width (RBC) [Ratio] 13.8 % Normal 11.5-15.0 [facility] Comment on above: Performed By: #### 5 0608 #### [facility] [address] [place] [address], [facility] Hematocrit (Bld) [Volume fraction] 28.6 % Low 39.0-50.0 [facility] Comment on above: Performed By: #### 5 0608 #### [facility] [address] [place] [address], [facility] Hemoglobin (Bld) [Mass/Vol] 9.7 g/dL Low 13.0-17.0 [facility] Comment on above: Performed By: #### 5 0608 #### [facility] [address] [place] [address], [facility] IMM PLATELET FRAC 5.0 % Normal 0.8-6.3 [facility] Comment on above: Performed By: #### 5 0608 #### [facility] [address] [place] [address], [facility] MCH (RBC) [Entitic mass] 31.3 pg Normal 27.0-33.0 [facility] Comment on above: Performed By: #### 5 0608 #### [facility] [address] [place] [address], [facility] MCHC (RBC) [Mass/Vol] 33.9 g/dL Normal 32.0-35.0 [facility] Comment on above: Performed By: #### 5 0608 #### [facility] [address] [facility] [place] [address], [facility] MCV (RBC) [Entitic vol] 92.3 fL Normal 82.0-98.0 [facility] Comment on above: Performed By: #### 5 0608 #### [facility] [address] [facility] [place] [address], [facility] Nucleated RBC/100 WBC (Bld) [Ratio] 0 % Normal 0-0 [facility] Comment on above: Performed By: #### 5 0608 #### [facility] [address] [facility] [place] [address], [facility] PLAT CNT 73 10*3/uL Low 150-400 [facility] Comment on above: Result Comment: RESU LTS CHECKED Performed By: #### 5 0608 #### [facility] [address] [facility] [place] [address], [facility] RBC (Bld) [#/Vol] 3.10 10*6/uL Low 4.20-5.70 [facility] Comment on above: Performed By: #### 5 0608 #### [facility] [address] [facility] [place] [address], [facility] WBC (Bld) [#/Vol] 7.29 10*3/uL Normal 4.00-10.60 [facility] Comment on above: Performed By: #### 5 0608 #### [facility] [address] [place] [address], [facility] Erythrocyte distribution width (RBC) [Ratio] 13.7 % Normal 11.5-15.0 [facility] Comment on above: Order Comment: No: D o not add to previous draw Performed By: #### 5 0608 #### [facility] [address] [place] [address], [facility] Hematocrit (Bld) [Volume fraction] 39.5 % Normal 39.0-50.0 [facility] Comment on above: Order Comment: No: D o not add to previous draw Performed By: #### 5 0608 #### [facility] [address] [place] [address], [facility] Hemoglobin (Bld) [Mass/Vol] 13.4 g/dL Normal 13.0-17.0 [facility] Comment on above: Order Comment: No: D o not add to previous draw Performed By: #### 5 0608 #### [facility] [address] [place] [address], [facility] IMM PLATELET FRAC 6.1 % Normal 0.8-6.3 [facility] Comment on above: Order Comment: No: D o not add to previous draw Performed By: #### 5 0608 #### [facility] [address] [place] [address], [facility] MCH (RBC) [Entitic mass] 30.9 pg Normal 27.0-33.0 [facility] Comment on above: Order Comment: No: D o not add to previous draw Performed By: #### 5 0608 #### [facility] [address] [place] [address], [facility] MCHC (RBC) [Mass/Vol] 33.9 g/dL Normal 32.0-35.0 [facility] Comment on above: Order Comment: No: D o not add to previous draw Performed By: #### 5 0608 #### [facility] [address] [place] [address], [facility] MCV (RBC) [Entitic vol] 91.2 fL Normal 82.0-98.0 [facility] Comment on above: Order Comment: No: D o not add to previous draw Performed By: #### 5 0608 #### [facility] [address] [place] [address], [facility] Nucleated RBC/100 WBC (Bld) [Ratio] 0 % Normal 0-0 [facility] Comment on above: Order Comment: No: D o not add to previous draw Performed By: #### 5 0608 #### [facility] [address] [place] [address], [facility] PLAT CNT 120 10*3/uL Low 150-400 [facility] Comment on above: Order Comment: No: D o not add to previous draw Performed By: #### 5 0608 #### [facility] [address] [facility] [place] [address], [facility] RBC (Bld) [#/Vol] 4.33 10*6/uL Normal 4.20-5.70 [facility] Comment on above: Order Comment: No: D o not add to previous draw Performed By: #### 5 0608 #### [facility] [address] [facility] [place] [address], [facility] WBC (Bld) [#/Vol] 4.21 10*3/uL Normal 4.00-10.60 [facility] Comment on above: Order Comment: No: D o not add to previous draw Performed By: #### 5 0608 #### [facility] [address] [facility] [place] [address], [facility] CBC W/DIFFon 02-20-2022 ABS IMM GRANS 0.0 10*3/uL Normal 0.0-0.2 [facility] Comment on above: Order Comment: No: D o not add to previous draw Performed By: #### 5 0608 #### [facility] [address] [place] [address], [facility] ABS NEUTROPHILS 9.6 10*3/uL High 1.6-7.6 [facility] Comment on above: Order Comment: No: D o not add to previous draw Performed By: #### 5 0608 #### [facility] [address] [place] [address], [facility] Basophils (Bld) [#/Vol] 0.0 10*3/uL Normal 0.0-0.2 [facility] Comment on above: Order Comment: No: D o not add to previous draw Performed By: #### 5 0608 #### [facility] [address] [place] [address], [facility] Basophils/100 WBC (Bld) 0.2 % Normal 0.0-1.0 [facility] Comment on above: Order Comment: No: D o not add to previous draw Performed By: #### 5 0608 #### [facility] [address] [place] [address], [facility] Eosinophils (Bld) [#/Vol] 0.0 10*3/uL Normal 0.0-0.5 [facility] Comment on above: Order Comment: No: D o not add to previous draw Performed By: #### 5 0608 #### [facility] [address] [place] [address], [facility] Eosinophils/100 WBC (Bld) 0.1 % Normal 0.0-6.0 [facility] Comment on above: Order Comment: No: D o not add to previous draw Performed By: #### 5 0608 #### [facility] [address] [place] [address], [facility] Erythrocyte distribution width (RBC) [Ratio] 14.1 % Normal 11.5-15.0 [facility] Comment on above: Order Comment: No: D o not add to previous draw Performed By: #### 5 0608 #### [facility] [address] [place] [address], [facility] Hematocrit (Bld) [Volume fraction] 35.5 % Low 39.0-50.0 [facility] Comment on above: Order Comment: No: D o not add to previous draw Performed By: #### 5 0608 #### [facility] [address] [place] [address], [facility] Hemoglobin (Bld) [Mass/Vol] 11.9 g/dL Low 13.0-17.0 [facility] Comment on above: Order Comment: No: D o not add to previous draw Performed By: #### 5 0608 #### [facility] [address] [place] [address], [facility] IMM PLATELET FRAC 5.8 % Normal 0.8-6.3 [facility] Comment on above: Order Comment: No: D o not add to previous draw Performed By: #### 5 0608 #### [facility] [address] [facility] [place] [address], [facility] IMMATURE GRANS 0.3 % Normal 0.0-1.0 [facility] Comment on above: Order Comment: No: D o not add to previous draw Performed By: #### 5 0608 #### [facility] [address] [facility] [place] [address], [facility] Lymphocytes (Bld) [#/Vol] 0.3 10*3/uL Low 1.2-4.0 [facility] Comment on above: Order Comment: No: D o not add to previous draw Performed By: #### 5 0608 #### [facility] [address] [facility] [place] [address], [facility] Lymphocytes/100 WBC (Bld) 3.1 % Low 20.0-45.0 [facility] Comment on above: Order Comment: No: D o not add to previous draw Performed By: #### 5 0608 #### [facility] [address] [place] [address], [facility] MCH (RBC) [Entitic mass] 30.6 pg Normal 27.0-33.0 [facility] Comment on above: Order Comment: No: D o not add to previous draw Performed By: #### 5 0608 #### [facility] [address] [place] [address], [facility] MCHC (RBC) [Mass/Vol] 33.5 g/dL Normal 32.0-35.0 [facility] Comment on above: Order Comment: No: D o not add to previous draw Performed By: #### 5 0608 #### [facility] [address] [place] [address], [facility] MCV (RBC) [Entitic vol] 91.3 fL Normal 82.0-98.0 [facility] Comment on above: Order Comment: No: D o not add to previous draw Performed By: #### 5 0608 #### [facility] [address] [place] [address], [facility] Monocytes (Bld) [#/Vol] 0.8 10*3/uL Normal 0.1-1.0 [facility] Comment on above: Order Comment: No: D o not add to previous draw Performed By: #### 5 0608 #### [facility] [address] [place] [address], [facility] MONOS 7.6 % Normal 5.0-12.0 [facility] Comment on above: Order Comment: No: D o not add to previous draw Performed By: #### 5 0608 #### [facility] [address] [place] [address], [facility] Neutrophils/100 WBC (Bld) 88.7 % High 40.0-72.0 [facility] Comment on above: Order Comment: No: D o not add to previous draw Performed By: #### 5 0608 #### [facility] [address] [place] [address], [facility] Nucleated RBC/100 WBC (Bld) [Ratio] 0 % Normal 0-0 [facility] Comment on above: Order Comment: No: D o not add to previous draw Performed By: #### 5 0608 #### [facility] [address] [facility]. [place] [id number], [facility] PLAT CNT 109 10*3/uL Low 150-400 [facility] Comment on above: Order Comment: No: D o not add to previous draw Performed By: #### 5 0608 #### [facility] [address] [place] [address], [facility] RBC (Bld) [#/Vol] 3.89 10*6/uL Low 4.20-5.70 [facility] Comment on above: Order Comment: No: D o not add to previous draw Performed By: #### 5 0608 #### [facility] [address] [place] [address], [facility] WBC (Bld) [#/Vol] 10.80 10*3/uL High 4.00-10.60 [facility] Comment on above: Order Comment: No: D o not add to previous draw Performed By: #### 5 0608 #### [facility] [address] [place] [address], [facility] COOXIMETRYon 02-20-2022 COHB 2 % Normal [facility] Comment on above: Performed By: #### 3 0739 #### [facility] [address] [place] [address], [facility] METHB 1 % Normal [facility] Comment on above: Performed By: #### 3 0739 #### [facility] [address] [facility] [place] [address], [facility] Oxygen saturation in Blood 60.3 % Low 65.0-75.0 [facility] Comment on above: Performed By: #### 3 0739 #### [facility] [address] [place] [address], [facility] THB 12.0 g/dL Normal [facility] Comment on above: Performed By: #### 3 0739 #### [facility] [address] [place] [id number], [facility] FIBRINOGENon 02-20-2022 FIBRINOGEN 220 mg/dL Normal 150-425 [facility] Comment on above: Performed By: #### 5 6101, 98848, 82162 ####[facility] [place] [address], [facility] LACTATE BLOODon 02-20-2022 Lactate [Moles/Vol] 0.9 mmol/L Normal .5-2.2 [facility] Comment on above: Order Comment: Evalu ate for Pneumothorax Performed By: #### 1 0054 ####[facility] [place] [address], [facility] Lactate [Moles/Vol] 1.1 mmol/L Normal .5-2.2 [facility] Comment on above: Performed By: #### 1 0054 ####[facility] [place] [address], [facility] LIVER BATTERYon 02-20-2022 Albumin [Mass/Vol] 3.5 g/dL Normal 3.5-5.7 [facility] Comment on above: Order Comment: evalu ate for Effusion Performed By: #### 1 0070, 76208, 45612, 23738, 26964 ####[facility] [place] [address], [facility] ALKALINE PHOSPH 48 IU/L Normal 34-104 [facility] Comment on above: Order Comment: evalu ate for Effusion Performed By: #### 1 0070, 81182, 76785, 66769, 50709 ####[facility] [place] [address], [place] ALT [Catalytic activity/Vol] 12 U/L Normal 7-52 [facility] Comment on above: Order Comment: evalu ate for Effusion Performed By: #### 1 0070, 76432, 29611, 61112, 35969 ####[facility] [place] [address], [place] AST [Catalytic activity/Vol] 19 U/L Normal 13-39 [facility] Comment on above: Order Comment: evalu ate for Effusion Performed By: #### 1 0070, 55120, 68534, 24779, 95860 ####[facility] [place] [address], [facility] Bilirubin [Mass/Vol] 1.0 mg/dL Normal 0.3-1.0 [facility] Comment on above: Order Comment: evalu ate for Effusion Performed By: #### 1 0070, 46481, 28616, 04162, 86493 ####[facility] [place] [address], [facility] Bilirubin.direct [Mass/Vol] 0.3 mg/dL High 0.0-0.2 [facility] Comment on above: Order Comment: evalu ate for Effusion Performed By: #### 1 0070, 87956, 03794, 94408, 68170 ####[facility] [place] [address], [facility] Protein [Mass/Vol] 5.1 g/dL Low 6.0-8.3 [facility] Comment on above: Order Comment: evalu ate for Effusion Performed By: #### 1 0070, 99769, 33035, 76793, 30630 ####[facility] [place] [address], [facility] MAGNESIUM BLOODon 02-20-2022 Magnesium [Mass/Vol] 2.2 mg/dL Normal 1.9-2.7 [facility] Comment on above: Order Comment: Evalu ate for Pneumothorax Performed By: #### 1 0070, 65772, 19416, 48471, 49741 ####[facility] [place] [address], [place] Magnesium [Mass/Vol] 2.5 mg/dL Normal 1.9-2.7 [facility] Comment on above: Performed By: #### 1 0070, 24563 ####[facility] [place] [address], [facility] Magnesium [Mass/Vol] 1.9 mg/dL Normal 1.9-2.7 [facility] Comment on above: Order Comment: Check Chest Tube Position, ON ARRIVAL TO CVU Performed By: #### 0 0071, 20705, 18988 ####[facility] [place] [address], [facility] PERFUSION BLOOD PANELon 3 BASE EXCESS 0.0 mmol/L Normal -2.0-3.0 [facility] Comment on above: Performed By: #### 3 1595 #### [facility] [address] [facility] [place] [address], [facility] Glucose [Mass/Vol] 106 mg/dL High 70-105 [facility] Comment on above: Performed By: #### 3 1595 #### [facility] [address] Hematocrit (Bld) [Volume fraction] 28 % Low 38-51 [facility] Comment on above: Performed By: #### 3 1595 #### [facility] [address] [facility] [place] [address], [facility] Hemoglobin (Bld) [Mass/Vol] 9.5 g/dL Low 12.0-17.0 [facility] Comment on above: Performed By: #### 3 [id number] #### [facility] [address] [facility] [place] [address], [facility] IONIZED CALCIUM 1.23 mmol/L Normal 1.12-1.32 The [facility] Comment on above: Performed By: #### 3 1595 #### [facility] [address] [facility] [place] [address], [facility] Oxygen (Bld) [Partial pressure] 425.0 mm[Hg] High 80.0-105.0 [facility] Comment on above: Performed By: #### 3 1595 #### [facility] [address] [place] [address], [place] PCO2 46.5 mmHg High 35.0-45.0 [facility] Comment on above: Performed By: #### 3 1595 #### [facility] [address] [place] [address], [place] pH (Bld) 7.36 [pH] Normal 7.35-7.45 [facility] Comment on above: Performed By: #### 3 1595 #### [facility] [address] [place] [address], [place] Potassium [Moles/Vol] 4.0 mmol/L Normal 3.5-4.9 [facility] Comment on above: Performed By: #### 3 1595 #### [facility] [address] [place] [address], [place] Sodium [Moles/Vol] 143 mmol/L Normal 138-146 [facility] Comment on above: Performed By: #### 3 1595 #### [facility] [address] [place] [address], [place] BASE EXCESS 1.0 mmol/L Normal -2.0-3.0 [facility] Comment on above: Performed By: #### 8 [id number] #### [facility] [address] [place] [address], [place] Glucose [Mass/Vol] 112 mg/dL High 70-105 [facility] Comment on above: Performed By: #### 8 5499 #### [facility] [address] [place] [address], [place] Hematocrit (Bld) [Volume fraction] 26 % Low 38-51 [facility] Comment on above: Performed By: #### 8 5499 #### [facility] [address] [place] [address], [place] Hemoglobin (Bld) [Mass/Vol] 8.8 g/dL Low 12.0-17.0 [facility] Comment on above: Performed By: #### 8 5499 #### [facility] [address] [facility] [place] [address], [facility] IONIZED CALCIUM 1.30 mmol/L Normal 1.12-1.32 [facility] Comment on above: Performed By: #### 8 5499 #### [facility] [address] [facility] [place] [address], [facility] Oxygen (Bld) [Partial pressure] 390.0 mm[Hg] High 80.0-105.0 [facility] Comment on above: Performed By: #### 8 5499 #### [facility] [address] PCO2 42.1 mmHg Normal 35.0-45.0 [facility] Comment on above: Performed By: #### 8 5499 #### [facility] [address] [facility]. [address] pH (Bld) 7.39 [pH] Normal 7.35-7.45 [facility] Comment on above: Performed By: #### 8 5499 #### [facility] [address] [facility] [place] [address], [facility] Potassium [Moles/Vol] 4.1 mmol/L Normal 3.5-4.9 [facility] Comment on above: Performed By: #### 8 5499 #### [facility] [address] [facility] [place] [address], [facility] Sodium [Moles/Vol] 143 mmol/L Normal 138-146 [facility] Comment on above: Performed By: #### 8 5499 #### [facility] [address] [facility] [place] [address], [facility] BASE EXCESS 2.0 mmol/L Normal -2.0-3.0 [facility] Comment on above: Performed By: #### 8 5499 #### [facility] [address] [place] [address], [place] Glucose [Mass/Vol] 119 mg/dL High 70-105 [facility] Comment on above: Performed By: #### 8 5499 #### [facility] [address] [place] [address], [place] Hematocrit (Bld) [Volume fraction] 28 % Low 38-51 [facility] Comment on above: Performed By: #### 8 5499 #### [facility] [address] [place] [address], [place] Hemoglobin (Bld) [Mass/Vol] 9.5 g/dL Low 12.0-17.0 [facility] Comment on above: Performed By: #### 8 5499 #### [facility] [address] [place] [address], [facility] IONIZED CALCIUM 1.11 mmol/L Low 1.12-1.32 [facility] Comment on above: Performed By: #### 8 5499 #### [facility] [address] [place] [address], [facility] Oxygen (Bld) [Partial pressure] 460.0 mm[Hg] High 80.0-105.0 [facility] Comment on above: Performed By: #### 8 [id number] #### [facility] [address] [place] [address], [place] PCO2 40.0 mmHg Normal 35.0-45.0 [facility] Comment on above: Performed By: #### 8 5499 #### [facility] [address] [place] [address], [place] pH (Bld) 7.43 [pH] Normal 7.35-7.45 [facility] Comment on above: Performed By: #### 8 5499 #### [facility] [address] [place] [address], [place] Potassium [Moles/Vol] 4.6 mmol/L Normal 3.5-4.9 [facility] Comment on above: Performed By: #### 8 [id number] #### [facility] [address] [facility] [place] [address], [facility] Sodium [Moles/Vol] 141 mmol/L Normal 138-146 [facility] Comment on above: Performed By: #### 8 5499 #### [facility] [address] [facility]. [address] BASE EXCESS 2.0 mmol/L Normal -2.0-3.0 [facility] Comment on above: Performed By: #### 8 [id number] #### [facility] [address] [facility]. [address] Glucose [Mass/Vol] 112 mg/dL High 70-105 [facility] Comment on above: Performed By: #### 8 5499 #### [facility] [address] [facility]. [address] Hematocrit (Bld) [Volume fraction] 26 % Low 38-51 [facility] Comment on above: Performed By: #### 8 [id number] #### [facility] [address] [facility]. [address] Hemoglobin (Bld) [Mass/Vol] 8.8 g/dL Low 12.0-17.0 [facility] Comment on above: Performed By: #### 8 [id number] #### [facility] [address] IONIZED CALCIUM 1.09 mmol/L Low 1.12-1.32 [facility] Comment on above: Performed By: #### 8 5499 #### [facility] [address] [facility]. [address] Oxygen (Bld) [Partial pressure] 403.0 mm[Hg] High 80.0-105.0 [facility] Comment on above: Performed By: #### 8 [id number] #### [facility] [address] [place] [address], [place] PCO2 40.8 mmHg Normal 35.0-45.0 [facility] Comment on above: Performed By: #### 8 5499 #### [facility] [address] [place] [address], [place] pH (Bld) 7.43 [pH] Normal 7.35-7.45 [facility] Comment on above: Performed By: #### 8 5499 #### [facility] [address] [place] [address], [place] Potassium [Moles/Vol] 4.8 mmol/L Normal 3.5-4.9 [facility] Comment on above: Performed By: #### 8 5499 #### [facility] [address] [place] [address], [place] Sodium [Moles/Vol] 141 mmol/L Normal 138-146 [facility] Comment on above: Performed By: #### 8 5499 #### [facility] [address] [place] [address], [place] BASE EXCESS 4.0 mmol/L High -2.0-3.0 [facility] Comment on above: Performed By: #### 8 [id number] #### [facility] [address] [place] [address], [place] Glucose [Mass/Vol] 102 mg/dL Normal 70-105 [facility] Comment on above: Performed By: #### 8 5499 #### [facility] [address] [place] [address], [place] Hematocrit (Bld) [Volume fraction] 26 % Low 38-51 [facility] Comment on above: Performed By: #### 8 [id number] #### [facility] [address] [place] [address], [place] Hemoglobin (Bld) [Mass/Vol] 8.8 g/dL Low 12.0-17.0 [facility] Comment on above: Performed By: #### 8 5499 #### [facility] [address] [facility] [place] [address], [facility] IONIZED CALCIUM 1.04 mmol/L Low 1.12-1.32 [facility] Comment on above: Performed By: #### 8 [id number] #### [facility] [address] [facility] [place] [address], [facility] Oxygen (Bld) [Partial pressure] 526.0 mm[Hg] High 80.0-105.0 [facility] Comment on above: Performed By: #### 8 5499 #### [facility] [address] [facility] [place] [address], [facility] PCO2 40.3 mmHg Normal 35.0-45.0 [facility] Comment on above: Performed By: #### 8 [id number] #### [facility] [address] [facility] [place] [address], [facility] pH (Bld) 7.46 [pH] High 7.35-7.45 [facility] Comment on above: Performed By: #### 8 5499 #### [facility] [address] [place] [address], [facility] Potassium [Moles/Vol] 4.8 mmol/L Normal 3.5-4.9 [facility] Comment on above: Performed By: #### 8 [id number] #### [facility] [address] [facility] [place] [address], [facility] Sodium [Moles/Vol] 140 mmol/L Normal 138-146 [facility] Comment on above: Performed By: #### 8 5499 #### [facility] [address] [place] [address], [facility] BASE EXCESS 0.0 mmol/L Normal -2.0-3.0 [facility] Comment on above: Performed By: #### 8 5499 #### [facility] [address] [place] [address], [place] Glucose [Mass/Vol] 97 mg/dL Normal 70-105 [facility] Comment on above: Performed By: #### 8 [id number] #### [facility] [address] [place] [address], [place] Hematocrit (Bld) [Volume fraction] 27 % Low 38-51 [facility] Comment on above: Performed By: #### 8 5499 #### [facility] [address] [place] [address], [place] Hemoglobin (Bld) [Mass/Vol] 9.2 g/dL Low 12.0-17.0 [facility] Comment on above: Performed By: #### 8 5499 #### [facility] [address] [place] [address], [place] IONIZED CALCIUM 1.03 mmol/L Low 1.12-1.32 [facility] Comment on above: Performed By: #### 8 5499 #### [facility] [address] [place] [address], [place] Oxygen (Bld) [Partial pressure] 49.0 mm[Hg] Normal [facility] Comment on above: Performed By: #### 8 [id number] #### [facility] [address] [place] [address], [place] PCO2 44.2 mmHg Normal 41.0-51.0 [facility] Comment on above: Performed By: #### 8 5499 #### [facility] [address] [place] [address], [place] pH (Bld) 7.37 [pH] Normal 7.31-7.41 [facility] Comment on above: Performed By: #### 8 5499 #### [facility] [address] [place] [address], [place] Potassium [Moles/Vol] 4.5 mmol/L Normal 3.5-4.9 [facility] Comment on above: Performed By: #### 8 5499 #### [facility] [address] [facility] Sodium [Moles/Vol] 141 mmol/L Normal 138-146 [facility] Comment on above: Performed By: #### 8 5499 #### [facility] [address] [facility]. [address] BASE EXCESS -3.0 mmol/L Low -2.0-3.0 [facility] Comment on above: Performed By: #### 8 5499 #### [facility] [address] [facility]. [address] Glucose [Mass/Vol] 115 mg/dL High 70-105 [facility] Comment on above: Performed By: #### 8 5499 #### [facility] [address] [facility]. [address] Hematocrit (Bld) [Volume fraction] 34 % Low 38-51 [facility] Comment on above: Performed By: #### 8 5499 #### [facility] [address] Hemoglobin (Bld) [Mass/Vol] 11.6 g/dL Low 12.0-17.0 [facility] Comment on above: Performed By: #### 8 5499 #### [facility] [address] IONIZED CALCIUM 1.27 mmol/L Normal 1.12-1.32 [facility] Comment on above: Performed By: #### 8 5499 #### [facility] [address] Oxygen (Bld) [Partial pressure] 249.0 mm[Hg] High 80.0-105.0 [facility] Comment on above: Performed By: #### 8 5499 #### [facility] [address] [place] [address], [place] PCO2 51.3 mmHg High 35.0-45.0 [facility] Comment on above: Performed By: #### 8 5499 #### [facility] [address] [place] [address], [place] pH (Bld) 7.29 [pH] Low 7.35-7.45 [facility] Comment on above: Performed By: #### 8 5499 #### [facility] [address] [place] [address], [place] Potassium [Moles/Vol] 3.9 mmol/L Normal 3.5-4.9 [facility] Comment on above: Performed By: #### 8 5499 #### [facility] [address] [place] [address], [place] Sodium [Moles/Vol] 142 mmol/L Normal 138-146 [facility] Comment on above: Performed By: #### 8 5499 #### [facility] [address] [place] [address], [place] BASE EXCESS -1.0 mmol/L Normal -2.0-3.0 [facility] Comment on above: Performed By: #### 3 1595 #### [facility] [address] [place] [address], [place] Glucose [Mass/Vol] 104 mg/dL Normal 70-105 [facility] Comment on above: Performed By: #### 3 1595 #### [facility] [address] [place] [address], [place] Hematocrit (Bld) [Volume fraction] 37 % Low 38-51 [facility] Comment on above: Performed By: #### 3 1595 #### [facility] [address] [place] [address], [place] Hemoglobin (Bld) [Mass/Vol] 12.6 g/dL Normal 12.0-17.0 [facility] Comment on above: Performed By: #### 3 1595 #### [facility] [address] [facility] [place] [place] [address], [facility] IONIZED CALCIUM 1.34 mmol/L High 1.12-1.32 [facility] Comment on above: Performed By: #### 3 1595 #### [facility] [address] [facility] [place] [address], [facility] Oxygen (Bld) [Partial pressure] 187.0 mm[Hg] High 80.0-105.0 [facility] Comment on above: Performed By: #### 3 1595 #### [facility] [address] [facility] [place] [address], [facility] PCO2 45.2 mmHg High 35.0-45.0 [facility] Comment on above: Performed By: #### 3 1595 #### [facility] [address] [facility] [place] [address], [facility] pH (Bld) 7.35 [pH] Normal 7.35-7.45 [facility] Comment on above: Performed By: #### 3 1595 #### [facility] [address] [facility] [place] [address], [facility] Potassium [Moles/Vol] 4.2 mmol/L Normal 3.5-4.9 [facility] Comment on above: Performed By: #### 3 1595 #### [facility] [address] [facility] [place] [address], [facility] Sodium [Moles/Vol] 141 mmol/L Normal 138-146 [facility] Comment on above: Performed By: #### 3 1595 #### [facility] [address] [place] [address], [facility] PHOSPHORUS BLOODon 2 Phosphate [Mass/Vol] 4.1 mg/dL Normal 2.5-5.0 [facility] Comment on above: Order Comment: Evalu ate for Pneumothorax Performed By: #### 1 0070, 06788, 54758, 96543, 85847 ####[facility] [facility] [place] [address], [facility] Phosphate [Mass/Vol] 3.9 mg/dL Normal 2.5-5.0 [facility] Comment on above: Order Comment: Check Chest Tube Position, ON ARRIVAL TO CVU Performed By: #### 0 0071, 51817, 21219 ####[facility] [place] [address], [facility] PLATELET APHERESIS 1 UNITon 02-20-2022 PRODUCT CODE 1 [id number] Normal [facility] Comment on above: Performed By: #### 3 2043 #### [facility] [address] [facility] [place] [address], [facility] PRODUCT STATUS 1 PT Normal [facility] Comment on above: Result Comment: Resu lt changed by IF on 02/20/2022 11:57. The previous value was XM. Result changed by IF on 02/21/2022 00:30. The previous value was IS. Performed By: #### 3 2043 #### [facility] [address] [facility] [place] [address], [facility] UNIT ABO 1 A Normal [facility] Comment on above: Performed By: #### 3 2043 #### [facility] [address] [facility] [place] [address], [facility] UNIT ID 1 [id number] Normal [facility] Comment on above: Performed By: #### 3 2043 #### [facility] [address] [facility] [place] [address], [facility] UNIT RH 1 Positive Normal [facility] Comment on above: Performed By: #### 3 2043 #### [facility] [address] [place] [address], [facility] PRODUCT CODE 1 [id number] Normal [facility] Comment on above: Performed By: #### 3 4 #### [facility] [address] [place] [address], [facility] PRODUCT STATUS 1 RE Normal [facility] Comment on above: Result Comment: Resu lt changed by IF on 02/21/2022 08:31. The previous value was XM. Performed By: #### 3 2043 #### [facility] [address] [place] [address], [facility] UNIT ABO 1 A Normal [facility] Comment on above: Performed By: #### 3 2043 #### [facility] [address] [place] [address], [facility] UNIT ID 1 [id number] Normal [facility] Comment on above: Performed By: #### 3 2043 #### [facility] [address] [place] [address], [facility] UNIT RH 1 Positive Normal [facility] Comment on above: Performed By: #### 3 2043 #### [facility] [address] [place] [address], [facility] PLATELET FUNCTION SCREENon 0 02-20-2022 COLLAGEN/ADP 101 sec Normal 56-110 [facility] Comment on above: Result Comment: This pattern is usually indicative of drug induced platelet dysfunction, most commonly seen after aspirin ingestion. Review patient chart information for prescription and non-prescription medication. If medication is ruled out, this pattern has also been reported with storage pool deficiency and platelet secretion defects. Platelet aggregation testing and/or platelet electron microscopy may be warranted. Performed By: #### 8 4505 ####[facility] [place] [address], [place] COLLAGEN/EPINEPHRINE 174 sec High 82-159 [facility] Comment on above: Performed By: #### 8 4505 ####[facility] [place] [address], [facility] POC GLUCOSE LABon 02-20-2022 Glucose [Mass/Vol] 141 mg/dL High 70-100 [facility] Comment on above: Performed By: #### 8 5499 #### [facility] [address] [place], [place] [id number] [place] [address] Glucose [Mass/Vol] 122 mg/dL High 70-100 [facility] Comment on above: Performed By: #### 3 1595 #### [facility] [address] [place], [place] [address] [place] [address] Glucose [Mass/Vol] 101 mg/dL High 70-100 [facility] Comment on above: Performed By: #### 3 1595 #### [address] POC SARS COV2 IDon 2 SARS-CoV-2 (COVID-19) RNA JJ+probe Ql (Unsp spec) Negative Normal NEGATIVE [facility] Comment on above: Result Comment: ID N OW COVID-19 assay performed on the ID NOW Instrument is a rapid molecular in vitro diagnostic test utilizing an isothermal nucleic acid amplification technology intended for the qualitative detection of nucleic acid from the SARS-CoV-2 virus in direct anterior nasal (nasal), nasopharyngeal or throat swabs from individuals who are suspected of COVID-19 by their healthcare provider within the first seven days of the onset of symptoms. Testing is limited to laboratories certified under the Clinical Laboratory Improvement Amendments of 1988 (CLIA), 42 U.S.C. ???263a,that meet the requirements to perform high, moderate, or waived complexity tests. The ID NOW COVID-19 assay is also authorized for use at the Point of Care (POC), i.e., in patient care settings operating under a CLIA Certificate of Waiver, Certificate of Compliance, or Certificate of Accreditation. Performed By: #### 3 1595 #### [address] PORTABLE CHEST 1 VIEWon 08- PORTABLE CHEST 1 VIEW [facility] Department of Radiology [address] [place] [id number] ======== Patient Name: IGNACIO AMIN : 1945 Sex: M Age: Race: White Pt. Location: [id number] Patient Status: I Ordered Date: 02/20/2022 12:30:00 PM Completed Date: 02/20/2022 03:29 PM Requesting Provider: CHRISSY HERNANDEZ Attending Provider: ROSI GARDINER Report Copy To: Signs & Symptoms: Post CABG History: Comments: Check Chest Tube Position, ON ARRIVAL TO CVU Exam: PORTABLE CHEST 1 VIEW ======== PORTABLE CHEST 1 VIEW 02/20/2022 3:29 PM CLINICAL INDICATIONS: Post CABG TECHNOLOGIST COMMENTS: Post CABG, post chest tube placement QUESTION FOR THE RADIOLOGIST: Check Chest Tube Position, ON ARRIVAL TO CVU PROTOCOL: AP(PA) view was obtained. COMPARISON: February 16, 2022 FINDINGS: Endotracheal tube is 4.1 cm above carinal angle. There appears to be a nasogastric tube present it is in the distal esophagus. Should be advanced into the stomach. There is a left chest tube present. There is a mediastinal drain present. Transcatheter present tip in the right pulmonary artery. Left pacemaker ICD present. No pneumothorax. Right lung clear. Basilar airspace density on the left likely atelectasis. IMPRESSION: * Endotracheal tube is 4.1 cm above carinal angle * There appears to be a nasogastric tube present it is in the distal esophagus. Should be advanced into the stomach. * Left chest tube. No pneumothorax * Basilar atelectasis on the left Electronically signed: Quinten Nagel. Transcribed by: [email or web address], User Resident: Electronically Signed by: QUINTEN NAGEL @ 02/20/2022 03:53 PM Normal [facility] Comment on above: Order Comment: Check Chest Tube Position, ON ARRIVAL TO CVU PROTHROMBIN TIMEon 2 INR Coag (PPP) [Relative time] 1.34 {INR} High 0.91-1.16 [facility] Comment on above: Order Comment: Check Chest Tube Position, ON ARRIVAL TO CVU Result Comment: ACCC P RECOMMENDED INR FOR WARFARIN THERAPY -------- ------- CONDITION INR PROPHYLAXIS OF VENOUS THROMBOSIS 2-3 (HIGH-RISK SURGERY) TREATMENT OF VENOUS THROMBOSIS 2-3 TREATMENT OF PULMONARY EMBOLISM 2-3 PREVENTION OF SYSTEMIC EMBOLISM: 2-3 ACUTE MYOCARDIAL INFARCTION TISSUE HEART VALVES VALVULAR HEART DISEASE ATRIAL FIBRILLATION RECURRENT SYSTEMIC EMBOLISM MECHANICAL HEART VALVE 2.5-3.5 FROM: ORAL ANTICOAGULANTS. MECHANISM OF ACTION, CLINICAL EFFECTIVENESS, AND OPTIMAL THERAPEUTIC RANGE. CHEST 1995;108:231S-246S. Performed By: #### 5 6101, [id number] ####[facility] [facility] [place] [address], [facility] PT Coag (PPP) [Time] 16.4 s High 12.3-14.8 [facility] Comment on above: Order Comment: Check Chest Tube Position, ON ARRIVAL TO CVU Result Comment: ALL RESULTS MUST BE INTERPRETED WITH RESPECT TO BLOOD DRAWING ARTIFACT OR DILUTION ERROR OF ANTICOAGULANT AT THE TIME OF SAMPLING. Performed By: #### 5 6101, [id number] ####[facility] [facility] [place] [address], [facility] INR Coag (PPP) [Relative time] 1.72 {INR} High 0.91-1.16 [facility] Comment on above: Result Comment: [facility] P RECOMMENDED INR FOR WARFARIN THERAPY -------- ------- CONDITION INR PROPHYLAXIS OF VENOUS THROMBOSIS 2-3 (HIGH-RISK SURGERY) TREATMENT OF VENOUS THROMBOSIS 2-3 TREATMENT OF PULMONARY EMBOLISM 2-3 PREVENTION OF SYSTEMIC EMBOLISM: 2-3 ACUTE MYOCARDIAL INFARCTION TISSUE HEART VALVES VALVULAR HEART DISEASE ATRIAL FIBRILLATION RECURRENT SYSTEMIC EMBOLISM MECHANICAL HEART VALVE 2.5-3.5 FROM: ORAL ANTICOAGULANTS. MECHANISM OF ACTION, CLINICAL EFFECTIVENESS, AND OPTIMAL THERAPEUTIC RANGE. CHEST 1995;108:231S-246S. Performed By: #### 5 6101, 36551, [id number] ####[facility] [facility] [place] [address], [facility] PT Coag (PPP) [Time] 19.9 s High 12.3-14.8 [facility] Comment on above: Result Comment: ALL RESULTS MUST BE INTERPRETED WITH RESPECT TO BLOOD DRAWING ARTIFACT OR DILUTION ERROR OF ANTICOAGULANT AT THE TIME OF SAMPLING. Performed By: #### 5 6101, 35722, 75690 ####[facility] [facility] [place] [address], [facility] INR Coag (PPP) [Relative time] 1.07 {INR} Normal 0.91-1.16 [facility] Comment on above: Order Comment: Check Chest Tube Position, ON ARRIVAL TO CVU Result Comment: [facility] P RECOMMENDED INR FOR WARFARIN THERAPY -------- ------- CONDITION INR PROPHYLAXIS OF VENOUS THROMBOSIS 2-3 (HIGH-RISK SURGERY) TREATMENT OF VENOUS THROMBOSIS 2-3 TREATMENT OF PULMONARY EMBOLISM 2-3 PREVENTION OF SYSTEMIC EMBOLISM: 2-3 ACUTE MYOCARDIAL INFARCTION TISSUE HEART VALVES VALVULAR HEART DISEASE ATRIAL FIBRILLATION RECURRENT SYSTEMIC EMBOLISM MECHANICAL HEART VALVE 2.5-3.5 FROM: ORAL ANTICOAGULANTS. MECHANISM OF ACTION, CLINICAL EFFECTIVENESS, AND OPTIMAL THERAPEUTIC RANGE. CHEST 1995;108:231S-246S. Performed By: #### 3 0477, 83299, 69848 ####[facility] [facility] [place] [address], [facility] PT Coag (PPP) [Time] 13.9 s Normal 12.3-14.8 [facility] Comment on above: Order Comment: Check Chest Tube Position, ON ARRIVAL TO CVU Result Comment: ALL RESULTS MUST BE INTERPRETED WITH RESPECT TO BLOOD DRAWING ARTIFACT OR DILUTION ERROR OF ANTICOAGULANT AT THE TIME OF SAMPLING. Performed By: #### 3 0477, 69143, 51688 ####[facility] [facility] [place] [address], [facility] TROPONIN-Ion 02-20-2022 Troponin I.cardiac [Mass/Vol] 1.58 ng/mL Critically high 0.00-0.04 [facility] Comment on above: Order Comment: Evalu ate for Pneumothorax Result Comment: M-TR OPONIN INITIAL CRITICAL HIGH; RESPUN AND RETESTED M-CRITICAL RESULT(S) REVIEWED, CALLED TO AND READ BACK BY VINH MARADIAGA RN ON 02/20/2022 AT 17:27 REFERENCE RANGES: 0.00 - 0.04 ng/ml NORMAL 0.05 - 0.50 ng/ml INDETERMINATE > 0.50 ng/ml CONSISTENT WITH AN M.I. Performed By: #### 1 0070, 61610, 52538, 38376, 91412 ####[facility] UFH HEPARIN ASSAYon 02-21-20 UNFRACTIONATED HEPARIN 0.44 IU/mL Normal 0.30-0.70 [facility] Comment on above: Result Comment: Andria roxaban and Apixaban will interfere with the anti Xa assay used to monitor UFH and LMWH. Performed By: #### 3 0477, 68006, 49561 ####[facility] CBC COMPLETE BLOOD COUNTon 0 02-19-2022 Erythrocyte distribution width (RBC) [Ratio] 13.7 % Normal 11.5-15.0 [facility] Comment on above: Order Comment: No: D o not add to previous draw Performed By: #### 5 0608 #### [facility] [address] Hematocrit (Bld) [Volume fraction] 37.9 % Low 39.0-50.0 [facility] Comment on above: Order Comment: No: D o not add to previous draw Performed By: #### 5 0608 #### [facility] [address] [place] [address], [facility] Hemoglobin (Bld) [Mass/Vol] 13.0 g/dL Normal 13.0-17.0 [facility] Comment on above: Order Comment: No: D o not add to previous draw Performed By: #### 5 0608 #### [facility] [address] [place] [address], [facility] IMM PLATELET FRAC 5.4 % Normal 0.8-6.3 [facility] Comment on above: Order Comment: No: D o not add to previous draw Performed By: #### 5 0608 #### [facility] [address] [place] [address], [facility] MCH (RBC) [Entitic mass] 31.2 pg Normal 27.0-33.0 [facility] Comment on above: Order Comment: No: D o not add to previous draw Performed By: #### 5 0608 #### [facility] [address] [place] [address], [facility] MCHC (RBC) [Mass/Vol] 34.3 g/dL Normal 32.0-35.0 [facility] Comment on above: Order Comment: No: D o not add to previous draw Performed By: #### 5 0608 #### [facility] [address] [place] [id number], [facility] MCV (RBC) [Entitic vol] 90.9 fL Normal 82.0-98.0 [facility] Comment on above: Order Comment: No: D o not add to previous draw Performed By: #### 5 0608 #### [facility] [address] [place] [address], [facility] Nucleated RBC/100 WBC (Bld) [Ratio] 0 % Normal 0-0 [facility] Comment on above: Order Comment: No: D o not add to previous draw Performed By: #### 5 0608 #### [facility] [address] [place] [address], [facility] PLAT CNT 123 10*3/uL Low 150-400 [facility] Comment on above: Order Comment: No: D o not add to previous draw Performed By: #### 5 0608 #### [facility] [address] [place] [address], [facility] RBC (Bld) [#/Vol] 4.17 10*6/uL Low 4.20-5.70 [facility] Comment on above: Order Comment: No: D o not add to previous draw Performed By: #### 5 0608 #### [facility] [address] [place] [id number], [facility] WBC (Bld) [#/Vol] 4.86 10*3/uL Normal 4.00-10.60 [facility] Comment on above: Order Comment: No: D o not add to previous draw Performed By: #### 5 0608 #### [facility] [address] [place] [address], [place] RBC'S 4 UNITSon 02-19-2022 CROSSMATCH INTERP 1 COMP Normal [facility] Comment on above: Order Comment: Check Chest Tube Position, ON ARRIVAL TO CVU Performed By: #### 8 6004 ####[facility] [place] [address], [place] CROSSMATCH INTERP 2 COMP Normal [facility] Comment on above: Order Comment: Check Chest Tube Position, ON ARRIVAL TO CVU Performed By: #### 8 6004 ####[facility] [place] [address], [place] CROSSMATCH INTERP 3 COMP Normal [facility] Comment on above: Order Comment: Check Chest Tube Position, ON ARRIVAL TO CVU Performed By: #### 8 6004 ####[facility] [place] [address], [place] CROSSMATCH INTERP 4 COMP Normal [facility] Comment on above: Order Comment: Check Chest Tube Position, ON ARRIVAL TO CVU Performed By: #### 8 6004 ####[facility] [place] [address], [place] PRODUCT CODE 1 E0685 Normal [facility] Comment on above: Order Comment: Check Chest Tube Position, ON ARRIVAL TO CVU Performed By: #### 8 6004 ####[facility] [place] [address], [place] PRODUCT CODE 2 E0685 Normal [facility] Comment on above: Order Comment: Check Chest Tube Position, ON ARRIVAL TO CVU Performed By: #### 8 6004 ####[facility] [place] [address], [place] PRODUCT CODE 3 E0686 Normal [facility] Comment on above: Order Comment: Check Chest Tube Position, ON ARRIVAL TO CVU Performed By: #### 8 6004 ####[facility] PRODUCT CODE 4 E0336 Normal [facility] Comment on above: Order Comment: Check Chest Tube Position, ON ARRIVAL TO CVU Performed By: #### 8 6004 ####[facility] [facility] PRODUCT STATUS 1 PT Normal [facility] Comment on above: Order Comment: Check Chest Tube Position, ON ARRIVAL TO CVU Result Comment: Resu lt changed by IF on 02/20/2022 10:14. The previous value was XM. Result changed by IF on 02/20/2022 13:28. The previous value was IS. Result changed by IF on 02/20/2022 16:45. The previous value was XM. Result changed by IF on 02/21/2022 00:30. The previous value was IS. Performed By: #### 8 6004 ####[facility] [facility].[address] PRODUCT STATUS 2 RE Normal [facility] Comment on above: Order Comment: Check Chest Tube Position, ON ARRIVAL TO CVU Result Comment: Resu lt changed by IF on 02/20/2022 10:18. The previous value was XM. Result changed by IF on 02/20/2022 13:28. The previous value was IS. Result changed by IF on 02/21/2022 08:07. The previous value was XM. Result changed by IF on 02/21/2022 09:26. The previous value was XX. Performed By: #### 8 6004 ####[facility] [facility] [place] [address], [facility] PRODUCT STATUS 3 PT Normal [facility] Comment on above: Order Comment: Check Chest Tube Position, ON ARRIVAL TO CVU Result Comment: Resu lt changed by IF on 02/20/2022 10:18. The previous value was XM. Result changed by IF on 02/20/2022 13:28. The previous value was IS. Result changed by IF on 02/20/2022 15:06. The previous value was XM. Result changed by IF on 02/21/2022 00:30. The previous value was IS. Performed By: #### 8 6004 ####[facility] [facility] [place] [address], [facility] PRODUCT STATUS 4 RE Normal [facility] Comment on above: Order Comment: Check Chest Tube Position, ON ARRIVAL TO CVU Result Comment: Resu lt changed by IF on 02/20/2022 10:18. The previous value was XM. Result changed by IF on 02/20/2022 13:28. The previous value was IS. Result changed by IF on 02/21/2022 08:07. The previous value was XM. Result changed by IF on 02/21/2022 12:36. The previous value was XX. Performed By: #### 8 6004 ####[facility] [facility] [place] [address], [facility] UNIT ABO 1 O Normal [facility] Comment on above: Order Comment: Check Chest Tube Position, ON ARRIVAL TO CVU Performed By: #### 8 6004 ####[facility] [facility] [place] [address], [facility] UNIT ABO 2 O Normal [facility] Comment on above: Order Comment: Check Chest Tube Position, ON ARRIVAL TO CVU Performed By: #### 8 6004 ####[facility] [facility] [place] [address], [facility] UNIT ABO 3 O Normal [facility] Comment on above: Order Comment: Check Chest Tube Position, ON ARRIVAL TO CVU Performed By: #### 8 6004 ####[facility] [place] [address], [facility] UNIT ABO 4 O Normal [facility] Comment on above: Order Comment: Check Chest Tube Position, ON ARRIVAL TO CVU Performed By: #### 8 6004 ####[facility] [place] [address], [facility] UNIT ID 1 [id number] Normal [facility] Comment on above: Order Comment: Check Chest Tube Position, ON ARRIVAL TO CVU Performed By: #### 8 6004 ####[facility] [place] [address], [facility] UNIT ID 2 [id number] Normal [facility] Comment on above: Order Comment: Check Chest Tube Position, ON ARRIVAL TO CVU Performed By: #### 8 6004 ####[facility] [place] [address], [facility] UNIT ID 3 [id number] Normal [facility] Comment on above: Order Comment: Check Chest Tube Position, ON ARRIVAL TO CVU Performed By: #### 8 6004 ####[facility] [place] [address], [facility] UNIT ID 4 [id number] Normal [facility] Comment on above: Order Comment: Check Chest Tube Position, ON ARRIVAL TO CVU Performed By: #### 8 6004 ####[facility] [place] [address], [facility] UNIT RH 1 Positive Normal [facility] Comment on above: Order Comment: Check Chest Tube Position, ON ARRIVAL TO CVU Performed By: #### 8 6004 ####[facility] [place] [address], [facility] UNIT RH 2 Positive Normal [facility] Comment on above: Order Comment: Check Chest Tube Position, ON ARRIVAL TO CVU Performed By: #### 8 6004 ####[facility] [place] [address], [facility] UNIT RH 3 Positive Normal [facility] Comment on above: Order Comment: Check Chest Tube Position, ON ARRIVAL TO CVU Performed By: #### 8 6004 ####[facility] [place] [address], [facility] UNIT RH 4 Positive Normal [facility] Comment on above: Order Comment: Check Chest Tube Position, ON ARRIVAL TO CVU Performed By: #### 8 6004 ####[facility] [place] [address], [facility] TYPE AND SCREENon 02-19-2022 ABO INTERPRETATION O Normal [facility] Comment on above: Performed By: #### 3 4 #### [facility] [address] [place] [address], [facility] RH INTERPRETATION Positive Normal [facility] Comment on above: Performed By: #### 3 4 #### [facility] [address] [place] [address], [facility] UFH HEPARIN ASSAYon 02-20-20 UNFRACTIONATED HEPARIN 0.73 IU/mL High 0.30-0.70 [facility] Comment on above: Result Comment: Avalon roxaban and Apixaban will interfere with the anti Xa assay used to monitor UFH and LMWH. Performed By: #### 3 0477 ####[facility] [place] [address], [facility] UNFRACTIONATED HEPARIN 0.78 IU/mL High 0.30-0.70 [facility] Comment on above: Result Comment: Avalon roxaban and Apixaban will interfere with the anti Xa assay used to monitor UFH and LMWH. Performed By: #### 3 0477 ####[facility] [place] [address], [facility] UNFRACTIONATED HEPARIN 0.76 IU/mL High 0.30-0.70 [facility] Comment on above: Result Comment: Andria roxaban and Apixaban will interfere with the anti Xa assay used to monitor UFH and LMWH. Performed By: #### 3 0477 ####[facility] BASIC METABOLIC PANELon 08-2 Calcium [Mass/Vol] 9.1 mg/dL Normal 8.6-10.3 [facility] Comment on above: Order Comment: Evalu ate for Pneumothorax Performed By: #### 1 0, 13449 ####[facility] [place] [address], [facility] Chloride [Moles/Vol] 109 mmol/L High 98-107 [facility] Comment on above: Order Comment: Evalu ate for Pneumothorax Performed By: #### 1 0, 28471 ####[facility] [place] [address], [facility] CO2 [Moles/Vol] 27 mmol/L Normal 21-31 [facility] Comment on above: Order Comment: Evalu ate for Pneumothorax Performed By: #### 1 0, 97195 ####[facility] [place] [address], [facility] Creatinine [Mass/Vol] 0.86 mg/dL Normal 0.70-1.30 [facility] Comment on above: Order Comment: Evalu ate for Pneumothorax Performed By: #### 1 0, 83211 ####[facility] [facility] [place] [address], [facility] GFR/1.73 sq M.predicted among non-blacks MDRD (S/P/Bld) [Vol rate/Area] mL/min/{1.73_m2} Normal >60 [facility] Comment on above: Order Comment: Evalu ate for Pneumothorax Result Comment: [facility]'s estimated glomerular filtration rate (eGFR) will no longer include consideration of race in its calculation. The [employer]'s eGFR Task Force developed new recommendations for the estimation of the glomerular filtration rate in the [place] They recommend immediate implementation of the new equation refit without the race variable in all laboratories because the calculation does not include race. In addition to not including race in the calculation and reporting, it included diversity in its development, and has acceptable performance characteristics and potential consequences that do not disproportionately affect any one group of individuals. Performed By: #### 1 69, 09637 ####[facility] [place] [address], [facility] Glucose [Mass/Vol] 92 mg/dL Normal 70-100 [facility] Comment on above: Order Comment: Evalu ate for Pneumothorax Performed By: #### 1 69, 42659 ####[facility] [place] [address], [facility] Potassium [Moles/Vol] 4.0 mmol/L Normal 3.5-5.1 [facility] Comment on above: Order Comment: Evalu ate for Pneumothorax Performed By: #### 1 69, 94875 ####[facility] [place] [address], [facility] Sodium [Moles/Vol] 141 mmol/L Normal 136-145 [facility] Comment on above: Order Comment: Evalu ate for Pneumothorax Performed By: #### 1 69, 82319 ####[facility] [place] [address], [facility] Urea nitrogen [Mass/Vol] 23 mg/dL Normal 7-25 [facility] Comment on above: Order Comment: Evalu ate for Pneumothorax Performed By: #### 1 69, 34107 ####[facility] [facility].[address] CBC COMPLETE BLOOD COUNTon 0 02-18-2022 Erythrocyte distribution width (RBC) [Ratio] 13.7 % Normal 11.5-15.0 [facility] Comment on above: Order Comment: No: D o not add to previous draw Performed By: #### 5 0608 #### [facility] [address] [place] [address], [facility] Hematocrit (Bld) [Volume fraction] 40.8 % Normal 39.0-50.0 [facility] Comment on above: Order Comment: No: D o not add to previous draw Performed By: #### 5 0608 #### [facility] [address] [facility] [facility] Hemoglobin (Bld) [Mass/Vol] 13.7 g/dL Normal 13.0-17.0 [facility] Comment on above: Order Comment: No: D o not add to previous draw Performed By: #### 5 0608 #### [facility] [address] [facility] [place] [address], [facility] IMM PLATELET FRAC 6.8 % High 0.8-6.3 [facility] Comment on above: Order Comment: No: D o not add to previous draw Performed By: #### 5 0608 #### [facility] [address] MCH (RBC) [Entitic mass] 31.4 pg Normal 27.0-33.0 [facility] Comment on above: Order Comment: No: D o not add to previous draw Performed By: #### 5 0608 #### [facility] [address] MCHC (RBC) [Mass/Vol] 33.6 g/dL Normal 32.0-35.0 [facility] Comment on above: Order Comment: No: D o not add to previous draw Performed By: #### 5 0608 #### [facility] [address] [facility] [place] [address], [facility] MCV (RBC) [Entitic vol] 93.6 fL Normal 82.0-98.0 [facility] Comment on above: Order Comment: No: D o not add to previous draw Performed By: #### 5 0608 #### [facility] [address] [place] [address], [facility] Nucleated RBC/100 WBC (Bld) [Ratio] 0 % Normal 0-0 [facility] Comment on above: Order Comment: No: D o not add to previous draw Performed By: #### 5 0608 #### [facility] [address] [place] [address], [facility] PLAT CNT 130 10*3/uL Low 150-400 [facility] Comment on above: Order Comment: No: D o not add to previous draw Performed By: #### 5 0608 #### [facility] [address] [place] [address], [facility] RBC (Bld) [#/Vol] 4.36 10*6/uL Normal 4.20-5.70 [facility] Comment on above: Order Comment: No: D o not add to previous draw Performed By: #### 5 0608 #### [facility] [address] [place] [address], [facility] WBC (Bld) [#/Vol] 6.17 10*3/uL Normal 4.00-10.60 [facility] Comment on above: Order Comment: No: D o not add to previous draw Performed By: #### 5 0608 #### [facility] [address] [facility] [address] MAGNESIUM BLOODon 02-18-2022 Magnesium [Mass/Vol] 2.0 mg/dL Normal 1.9-2.7 [facility] Comment on above: Order Comment: Evalu ate for Pneumothorax Performed By: #### 1 0070, 67485 ####[facility] [facility].[address] UFH HEPARIN ASSAYon 02-19-20 22 UNFRACTIONATED HEPARIN 0.78 IU/mL High 0.30-0.70 [facility] Comment on above: Result Comment: Andria roxaban and Apixaban will interfere with the anti Xa assay used to monitor UFH and LMWH. Performed By: #### 3 0477 ####[facility] POC SARS COV2 ANTIGEN NEGATI VEon 02-17-2022 POC SARS COV2 ANTIGEN NEG Negative Normal NEGATIVE [facility] Comment on above: Result Comment: Nega tive results should be treated as presumptive and confirmation with a molecular assay, if necessary, for patient management, may be performed. Negative results do not rule out SARS-CoV-2 infection and not should be used as the sole basis for treatment or patient management decisions, including infection control decisions. Negative results should be considered in the context of a patient's recent exposures, history, and the presence of clinical signs and symptoms consistent with COVID-19. The Clarity COVID-19 Antigen Rapid Test Cassette is a rapid chromatographic immunoassay intended for the qualitative detection of the nucleocapsid protein antigen from SARS-CoV-2 in direct nasopharyngeal swab (POWER TRANSFORMER INSPECTOR) specimens from individuals who are suspected of COVID-19 by their healthcare provider within the first six days of symptom onset. Testing is limited to laboratories certified under the Clinical Laboratory Improvement Amendments of 1988 (CLIA), 42 U.S.C. ???263a, that meet the requirements to perform moderate complexity, high complexity, or waived tests. This test is authorized for use at the Point of Care (POC), i.e., in patient care settings operating under a CLIA Certificate of Waiver, Certificate of Compliance, or Certificate of Accreditation. Performed By: #### 3 2044 #### [facility] [address] APTTon 02-16-2022 aPTT Coag (Bld) [Time] 33.3 s Normal 25.0-35.0 [facility] Comment on above: Order Comment: Check Chest Tube Position, ON ARRIVAL TO CVU Result Comment: ALL RESULTS MUST BE INTERPRETED WITH RESPECT TO BLOOD DRAWING ARTIFACT OR DILUTION ERROR OF ANTICOAGULANT AT THE TIME OF SAMPLING. THE APTT SHOULD NOT BE USED TO MONITOR UNFRACTIONATED HEPARIN THERAPY, THIS LABORATORY NO LONGER HAS AN ESTABLISHED THERAPEUTIC RANGE BASED ON THE APTT. IT IS RECOMMENDED THAT THE [facility] - HEPARIN ASSAY (ANTI-XA ACTIVITY) BE USED FOR THIS PURPOSE. Performed By: #### 5 [id number], [id number] ####[facility] CBC COMPLETE BLOOD COUNTon 02-16-2022 Erythrocyte distribution width (RBC) [Ratio] 13.8 % Normal 11.5-15.0 [facility] Comment on above: Order Comment: No: D o not add to previous draw Performed By: #### 5 0608 #### [facility] [address] [place] [address], [facility] Hematocrit (Bld) [Volume fraction] 40.2 % Normal 39.0-50.0 [facility] Comment on above: Order Comment: No: D o not add to previous draw Performed By: #### 5 0608 #### [facility] [address] [place] [address], [facility] Hemoglobin (Bld) [Mass/Vol] 13.5 g/dL Normal 13.0-17.0 [facility] Comment on above: Order Comment: No: D o not add to previous draw Performed By: #### 5 0608 #### [facility] [address] [place] [address], [facility] IMM PLATELET FRAC 5.7 % Normal 0.8-6.3 [facility] Comment on above: Order Comment: No: D o not add to previous draw Performed By: #### 5 0608 #### [facility] [address] [facility] [place] [address], [facility] MCH (RBC) [Entitic mass] 31.0 pg Normal 27.0-33.0 [facility] Comment on above: Order Comment: No: D o not add to previous draw Performed By: #### 5 0608 #### [facility] [address] [facility] [place] [address], [facility] MCHC (RBC) [Mass/Vol] 33.6 g/dL Normal 32.0-35.0 [facility] Comment on above: Order Comment: No: D o not add to previous draw Performed By: #### 5 0608 #### [facility] [address] [place] [address], [facility] MCV (RBC) [Entitic vol] 92.4 fL Normal 82.0-98.0 [facility] Comment on above: Order Comment: No: D o not add to previous draw Performed By: #### 5 0608 #### [facility] [address] [place] [address], [facility] Nucleated RBC/100 WBC (Bld) [Ratio] 0 % Normal 0-0 [facility] Comment on above: Order Comment: No: D o not add to previous draw Performed By: #### 5 0608 #### [facility] [address] [place] [address], [facility] PLAT CNT 128 10*3/uL Low 150-400 [facility] Comment on above: Order Comment: No: D o not add to previous draw Performed By: #### 5 0608 #### [facility] [address] [place] [address], [facility] RBC (Bld) [#/Vol] 4.35 10*6/uL Normal 4.20-5.70 [facility] Comment on above: Order Comment: No: D o not add to previous draw Performed By: #### 5 0608 #### [facility] [address] [facility] [place] [address], [facility] WBC (Bld) [#/Vol] 6.37 10*3/uL Normal 4.00-10.60 [facility] Comment on above: Order Comment: No: D o not add to previous draw Performed By: #### 5 0608 #### [facility] [address] [place] [address], [facility] COMP METABOLIC PANELon 02-16 Albumin [Mass/Vol] 3.5 g/dL Normal 3.5-5.7 [facility] Comment on above: Order Comment: No: D o not add to previous draw Criteria for reflexing a culture was not met. Please call the lab at [phone] within 24 hours of collection time if culture is needed Performed By: #### 3 0965 #### [facility] [address] [place] [address], [facility] ALKALINE PHOSPH 63 IU/L Normal 34-104 [facility] Comment on above: Order Comment: No: D o not add to previous draw Criteria for reflexing a culture was not met. Please call the lab at [phone] within 24 hours of collection time if culture is needed Performed By: #### 3 0965 #### [facility] [address] [place] [address], [facility] ALT [Catalytic activity/Vol] 14 U/L Normal 7-52 [facility] Comment on above: Order Comment: No: D o not add to previous draw Criteria for reflexing a culture was not met. Please call the lab at [phone] within 24 hours of collection time if culture is needed Performed By: #### 3 0965 #### [facility] [address] [place] [address], [place] AST [Catalytic activity/Vol] 13 U/L Normal 13-39 [facility] Comment on above: Order Comment: No: D o not add to previous draw Criteria for reflexing a culture was not met. Please call the lab at [phone] within 24 hours of collection time if culture is needed Performed By: #### 3 0965 #### [facility] [address] [place] [address], [place] Bilirubin [Mass/Vol] 0.7 mg/dL Normal 0.3-1.0 [facility] Comment on above: Order Comment: No: D o not add to previous draw Criteria for reflexing a culture was not met. Please call the lab at [phone] within 24 hours of collection time if culture is needed Performed By: #### 3 0965 #### [facility] [address] [place] [address], [place] Calcium [Mass/Vol] 8.9 mg/dL Normal 8.6-10.3 [facility] Comment on above: Order Comment: No: D o not add to previous draw Criteria for reflexing a culture was not met. Please call the lab at [phone] within 24 hours of collection time if culture is needed Performed By: #### 3 0965 #### [facility] [address] [place] [address], [facility] Chloride [Moles/Vol] 108 mmol/L High 98-107 [facility] Comment on above: Order Comment: No: D o not add to previous draw Criteria for reflexing a culture was not met. Please call the lab at [phone] within 24 hours of collection time if culture is needed Performed By: #### 3 0965 #### [facility] [address] [facility]. [place] [id number], [facility] CO2 [Moles/Vol] 24 mmol/L Normal 21-31 [facility] Comment on above: Order Comment: No: D o not add to previous draw Criteria for reflexing a culture was not met. Please call the lab at [phone] within 24 hours of collection time if culture is needed Performed By: #### 3 0965 #### [facility] [address] [place] [address], [facility] Creatinine [Mass/Vol] 0.91 mg/dL Normal 0.70-1.30 [facility] Comment on above: Order Comment: No: D o not add to previous draw Criteria for reflexing a culture was not met. Please call the lab at [phone] within 24 hours of collection time if culture is needed Performed By: #### 3 0965 #### [facility] [address] GFR/1.73 sq M.predicted among non-blacks MDRD (S/P/Bld) [Vol rate/Area] mL/min/{1.73_m2} Normal >60 [facility] Comment on above: Order Comment: No: D o not add to previous draw Criteria for reflexing a culture was not met. Please call the lab at [phone] within 24 hours of collection time if culture is needed Result Comment: The [facility]'s estimated glomerular filtration rate (eGFR) will no longer include consideration of race in its calculation. The [employer]'s eGFR Task Force developed new recommendations for the estimation of the glomerular filtration rate in the [place] They recommend immediate implementation of the new equation refit without the race variable in all laboratories because the calculation does not include race. In addition to not including race in the calculation and reporting, it included diversity in its development, and has acceptable performance characteristics and potential consequences that do not disproportionately affect any one group of individuals. Performed By: #### 3 0965 #### [facility] [address] [place] [address], [place] Glucose [Mass/Vol] 97 mg/dL Normal 70-100 [facility] Comment on above: Order Comment: No: D o not add to previous draw Criteria for reflexing a culture was not met. Please call the lab at [phone] within 24 hours of collection time if culture is needed Performed By: #### 3 0965 #### [facility] [address] [place] [address], [place] Potassium [Moles/Vol] 4.1 mmol/L Normal 3.5-5.1 [facility] Comment on above: Order Comment: No: D o not add to previous draw Criteria for reflexing a culture was not met. Please call the lab at [phone] within 24 hours of collection time if culture is needed Performed By: #### 3 0965 #### [facility] [address] [place] [address], [place] Protein [Mass/Vol] 5.8 g/dL Low 6.0-8.3 [facility] Comment on above: Order Comment: No: D o not add to previous draw Criteria for reflexing a culture was not met. Please call the lab at [phone] within 24 hours of collection time if culture is needed Performed By: #### 3 0965 #### [facility] [address] [place] [address], [place] Sodium [Moles/Vol] 139 mmol/L Normal 136-145 [facility] Comment on above: Order Comment: No: D o not add to previous draw Criteria for reflexing a culture was not met. Please call the lab at [phone] within 24 hours of collection time if culture is needed Performed By: #### 3 0965 #### [facility] [address] [place] [address], [place] Urea nitrogen [Mass/Vol] 26 mg/dL High 7-25 [facility] Comment on above: Order Comment: No: D o not add to previous draw Criteria for reflexing a culture was not met. Please call the lab at [phone] within 24 hours of collection time if culture is needed Performed By: #### 3 0965 #### [address] CTA CHESTon 02-16-2022 CTA CHEST [facility] Department of Radiology [address] [place] [phone] ======== Patient Name: IGNACIO AMIN : 1945 Sex: M Age: Race: White Pt. Location: [id number] Patient Status: O Ordered Date: 02/16/2022 9:45:00 AM Completed Date: 02/16/2022 10:47 AM Requesting Provider: CATIA GTZ Attending Provider: ROSI GARDINER Report Copy To: Signs & Symptoms: Other History: See Comments Comments: Other, pre-op testing CABG Exam: CTA CHEST ======== STUDY: CT angiography of the chest with contrast CLINICAL HISTORY: Preoperative assessment, preadmission testing, coronary artery disease, coronary artery bypass graft planning COMPARISON: None. TECHNIQUE: CT angiography of the chest was performed utilizing thin section axial images with coronal and sagittal reformatted images generated. 3-D maximum intensity projection coronal and sagittal reformatted images generated and reviewed. Images acquired following the uneventful administration of 100 cc Omnipaque 350 nonionic intravenous contrast. Automated exposure control was utilized. FINDINGS: No pleural or pericardial effusion. No enlarged axillary or mediastinal lymph nodes. There, trunk of the right brachycephalic artery and left common carotid artery. There is mild motion artifact of the ascending aorta. Ascending aorta measures 3.6 cm and is mildly dilated. The bilateral internal mamillary arteries are patent. There is biatrial enlargement. Heavy coronary artery calcification is seen. Small exophytic left renal cyst requires no additional follow-up imaging. Multilevel degenerative change of the thoracic spine. No vertebral body height loss. IMPRESSION: 1. No evidence of acute cardiopulmonary process. 2. Biatrial enlargement. 3. Heavy coronary artery calcifications. All CT scans at this facility use dose modulation, iterative reconstruction, and/or weight based dosing when appropriate to reduce radiation dose to as low as reasonably achievable. Electronically signed: Mahesh Sanchez. Transcribed by: [email or web address], User Resident: Electronically Signed by: MAHESH SANCHEZ @ 02/20/2022 08:38 AM Normal [facility] Comment on above: Order Comment: Check Chest Tube Position, ON ARRIVAL TO CVU Cardiovascular Lab Reporton 02-16-2022 Cardiovascular Lab Report [facility] Patient Name: [facility] E MR #: [id number] Department of Physician: Nora Garcia M.D. Division of Service Date: 02/15/2022 Cardiology Birthdate: 1945 Adult Cardiovascular Room #: 3AB [id number] [place] [address] Cardiovascular Laboratory Report FINAL IMPRESSIONS: 1. Severe, heavily calcific, distal left main coronary artery disease extending into the ostium of the left anterior descending and left circumflex coronary arteries. 2. Severe disease of the left anterior descending coronary artery. 3. Severe disease of left circumflex coronary artery. 4. Severe calcific disease of the right coronary artery with moderate in-stent restenosis. 5. Mild to moderately reduced global left ventricular systolic function by noninvasive imaging. RECOMMENDATIONS: 1. The patient will be admitted to the Hospitalist Service with Cardiology on consult and tell surgical revascularization. 2. Should the patient experience chest discomfort or hemodynamic instability, would have a low threshold for placing an intra-aortic balloon pump and starting a heparin drip. 3. Aggressive cardiovascular risk factor modification. 4. Optimal medical therapy should include aspirin, high-intensity statin therapy, beta-ash, and angiotensin-converting enzyme inhibitor/receptor ash versus Entresto. 5. Further recommendations deferred to the inpatient services. PROCEDURE: Bilateral selective coronary angiography via left radial approach. METHODS: After risks, benefits, and alternatives were explained, written informed consent was obtained. The patient was prepped and draped in usual sterile fashion over the left wrist. Using 1% lidocaine solution, local infiltration anesthesia was achieved. Using modified Seldinger technique, a micropuncture kit and under ultrasound guidance access of the left radial artery was obtained. A 6-Hebrew 11 cm sheath was inserted without difficulty. Bilateral selective coronary angiography was performed using JL4 and JR4 catheters. After reviewing the images, it was elected to conclude the procedure. All catheters removed. The radial sheath was removed with application of a TR band per protocol to achieve optimal hemostasis. Overall, the patient tolerated the procedure well. There were no overt complications. He was to be transferred to the holding area in stable condition. FINDINGS: Hemodynamics. AO 121/74. LEFT VENTRICULOGRAPHY: This was not performed. Ejection fraction is reported to be 40% by noninvasive imaging. CORONARY ARTERIES: Left main coronary artery. This arises from the left coronary cusp. It bifurcates into the left anterior descending and left circumflex coronary arteries. It shows a heavily calcific vnw-fu-alazcy stenosis estimated to be 80% to 85% in severity extending into the ostium of the main branch vessels. Left anterior descending coronary artery. This shows an 80% ostial stenosis. The high originating first diagonal shows an 85% to 90% stenosis. There is a mid vessel 40% stenosis. There is diffuse plaque throughout the remainder of the vessel. 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 Left circumflex coronary artery. This shows a 90% heavily calcific eccentric ostial stenosis. There is a 60% stenosis at the bifurcation with a moderate-sized 3rd obtuse marginal. Right coronary artery. This is a dominant vessel giving rise to the posterior descending and posterolateral branches. It shows 40% in-stent restenosis in the midportion and a heavily calcific eccentric 70% stenosis distal to the stent. The distal vasculature shows diffuse calcific plaque. There is evidence of right to left collaterals. INDICATIONS: Chest pain, abnormal stress test. Electronically Signed by: Donavan Saeed M.D. 02/19/2022 02:09 P Donavan Saeed M.D. Date Dict: 02/15/2022/03:05 Lisha/Donavan Saeed M.D. Date Trans: 02/16/2022 05:09 A/mmo [id number] cc: Elliot Rosales M.D. [address] [place] [address] Normal [facility] DIRECT BILIon 02-16-2022 Bilirubin.direct [Mass/Vol] 0.1 mg/dL Normal 0.0-0.2 [facility] Comment on above: Order Comment: No: D o not add to previous draw Criteria for reflexing a culture was not met. Please call the lab at [phone] within 24 hours of collection time if culture is needed Performed By: #### 3 0965 #### [facility] [address] HEMOGLOBIN A1Con 02-16-2022 Glucose [Moles/Vol] 120 mmol/L Normal [facility] Comment on above: Order Comment: Check Chest Tube Position, ON ARRIVAL TO CVU Performed By: #### 3 1791 ####[facility] [address] HbA1c (Bld) [Mass fraction] 5.8 % Normal 4.0-6.0 [facility] Comment on above: Order Comment: Check Chest Tube Position, ON ARRIVAL TO CVU Performed By: #### 3 1791 ####[facility] [address] LIPID PROFILEon 02-16-2022 Cholesterol [Mass/Vol] 110 mg/dL Low 120-200 [facility] Comment on above: Order Comment: No: D o not add to previous draw Criteria for reflexing a culture was not met. Please call the lab at [phone] within 24 hours of collection time if culture is needed Result Comment: CHOL ESTEROL REFERENCE RANGE: 20 YEARS AND OLDER CARDIOVASCULAR RISK Less than 200 mg/dl Low Risk 200 to 239 mg/dl Borderline Risk 240 mg/dl and greater High Risk Performed By: #### 3 0965 #### [facility] [address] [place] [address], [facility] Cholesterol in HDL [Mass/Vol] 30 mg/dL Normal 23-92 [facility] Comment on above: Order Comment: No: D o not add to previous draw Criteria for reflexing a culture was not met. Please call the lab at [phone] within 24 hours of collection time if culture is needed Result Comment: Slig ht variation in normal range could be due to gender and/or age. HDL CHOLESTEROL REFERENCE RANGE: 20 years and older Cardiovascular Risk > or =60 mg/dL Desirable 40 TO 59 mg/dL Low Risk <40 mg/dL High Risk Performed By: #### 3 0965 #### [facility] [address] [facility] [place] [address], [facility] Cholesterol in LDL [Mass/Vol] 47 mg/dL Normal 0-130 [facility] Comment on above: Order Comment: No: D o not add to previous draw Criteria for reflexing a culture was not met. Please call the lab at [phone] within 24 hours of collection time if culture is needed Result Comment: LDL IS A CALCULATION LDL IS ONLY VALID IF THE TRIG IS LESS THAN 400. Performed By: #### 3 0965 #### [facility] [address] [place] [address], [place] Cholesterol.total/Cho lesterol in HDL [Mass ratio] 3.7 {ratio} Normal .0-4.5 [facility] Comment on above: Order Comment: No: D o not add to previous draw Criteria for reflexing a culture was not met. Please call the lab at [phone] within 24 hours of collection time if culture is needed Performed By: #### 3 0965 #### [facility] [address] NON-HDL CHOLESTEROL 80 mg/dL Normal [facility] Comment on above: Order Comment: No: D o not add to previous draw Criteria for reflexing a culture was not met. Please call the lab at [phone] within 24 hours of collection time if culture is needed Performed By: #### 3 0965 #### [facility] [address] [place] [address], [facility] Triglyceride [Mass/Vol] 164 mg/dL High 40-149 [facility] Comment on above: Order Comment: No: D o not add to previous draw Criteria for reflexing a culture was not met. Please call the lab at [phone] within 24 hours of collection time if culture is needed Result Comment: TRIG LYCERIDE REFERENCE RANGE: 20 YEARS AND OLDER CARDIOVASCULAR RISK LESS THAN 150 mg/dl LOW RISK 150 TO 199 mg/dl BORDERLINE RISK 200 mg/dl AND GREATER HIGH RISK Performed By: #### 3 0965 #### [facility] [address] [facility]. [address] VLDL CHOL 33 mg/dL Normal 0-40 [facility] Comment on above: Order Comment: No: D o not add to previous draw Criteria for reflexing a culture was not met. Please call the lab at [phone] within 24 hours of collection time if culture is needed Performed By: #### 3 0965 #### [facility] [address] [place] [address], [facility] MAGNESIUM BLOODon 02-16-2022 Magnesium [Mass/Vol] 1.9 mg/dL Normal 1.9-2.7 [facility] Comment on above: Order Comment: No: D o not add to previous draw Performed By: #### 3 0748 #### [facility] [address] [place] [address], [facility] PHOSPHORUS BLOODon Phosphate [Mass/Vol] 3.5 mg/dL Normal 2.5-5.0 [facility] Comment on above: Order Comment: No: D o not add to previous draw Criteria for reflexing a culture was not met. Please call the lab at [phone] within 24 hours of collection time if culture is needed Performed By: #### 3 0965 #### [address] PORTABLE CHEST 1 VIEWon 01-22 PORTABLE CHEST 1 VIEW [facility] Department of Radiology [address] [place] [phone] ======== Patient Name: IGNACIO AMIN : 1945 Sex: M Age: Race: White Pt. Location: [address] [place] [address] Patient Status: I Ordered Date: 02/16/2022 7:00:00 AM Completed Date: 02/16/2022 07:39 AM Requesting Provider: CATIA GTZ Attending Provider: ADITYA RODRIGUEZ Report Copy To: Signs & Symptoms: Pre-Op Evaluation History: Comments: Atelectasis Exam: PORTABLE CHEST 1 VIEW ======== PORTABLE CHEST 1 VIEW 02/16/2022 7:39 AM CLINICAL INDICATIONS: Pre-Op Evaluation for anesthesia clearance. TECHNOLOGIST COMMENTS: Shortness of breath. QUESTION FOR THE RADIOLOGIST: Atelectasis PROTOCOL: AP(PA) view was obtained. COMPARISON: Chest radiograph dated 04/26/2016 FINDINGS: Heart size is normal. Dual-chamber pacemaker defibrillator placed via left subclavian approach. No infiltrates. No effusions. No pneumothorax. IMPRESSION: No acute findings in the chest. Electronically signed: Fidelina Mi. Transcribed by: [id number], User Resident: Electronically Signed by: FIDELINA MI @ 02/16/2022 09:14 AM Normal [facility] [facility] Comment on above: Order Comment: Check Chest Tube Position, ON ARRIVAL TO CVU PROTHROMBIN TIMEon INR Coag (PPP) [Relative time] 1.09 {INR} Normal 0.91-1.16 [facility] Comment on above: Order Comment: Check Chest Tube Position, ON ARRIVAL TO CVU Result Comment: ACCC P RECOMMENDED INR FOR WARFARIN THERAPY -------- ------- CONDITION INR PROPHYLAXIS OF VENOUS THROMBOSIS 2-3 (HIGH-RISK SURGERY) TREATMENT OF VENOUS THROMBOSIS 2-3 TREATMENT OF PULMONARY EMBOLISM 2-3 PREVENTION OF SYSTEMIC EMBOLISM: 2-3 ACUTE MYOCARDIAL INFARCTION TISSUE HEART VALVES VALVULAR HEART DISEASE ATRIAL FIBRILLATION RECURRENT SYSTEMIC EMBOLISM MECHANICAL HEART VALVE 2.5-3.5 FROM: ORAL ANTICOAGULANTS. MECHANISM OF ACTION, CLINICAL EFFECTIVENESS, AND OPTIMAL THERAPEUTIC RANGE. CHEST 1995;108:231S-246S. Performed By: #### 5 [id number], [id number] ####[facility].[address] PT Coag (PPP) [Time] 14.1 s Normal 12.3-14.8 [facility] Comment on above: Order Comment: Check Chest Tube Position, ON ARRIVAL TO CVU Result Comment: ALL RESULTS MUST BE INTERPRETED WITH RESPECT TO BLOOD DRAWING ARTIFACT OR DILUTION ERROR OF ANTICOAGULANT AT THE TIME OF SAMPLING. Performed By: #### 5 [id number], [id number] ####[facility].[address] TSH3on 02-16-2022 TSH 3RD GENERATION 1.10 uIU/mL Normal 0.34-5.60 [facility] Comment on above: Order Comment: No: D o not add to previous draw Performed By: #### 3 0739 #### [facility] [address] *MRSA/MSSA DNA NASALon 02-15 *MRSA/MSSA DNA NASAL Clinical Report: (D ) Specimen: NASAL SWAB Collected: 02/15/2022 17:50 Status: Final Last Updated: 02/16/2022 12:41 (1) No collection time noted on specimen or requisition. The collection time recorded is the time of receipt in the lab. MSSA DNA (Final) Negative MRSA DNA (Final) Negative Normal [facility] Comment on above: Order Comment: No co llection time noted on specimen or requisition. The collection time recorded is the time of receipt in the lab. Performed By: #### 3 [id number] #### [facility] [address] URINALYSIS REFLEXon 02-16-20 22 Appearance (U) CLEAR Normal CLEAR [facility] Comment on above: Order Comment: No: D o not add to previous drawCriteria for reflexing a culture was not met. Please call the lab [id number] within 24 hours of collection time if culture is needed Performed By: #### 3 [id number] #### [facility] [address] Bilirubin Ql (U) Negative Normal NEGATIVE [facility] Comment on above: Order Comment: No: D o not add to previous drawCriteria for reflexing a culture was not met. Please call the lab [id number] within 24 hours of collection time if culture is needed Performed By: #### 3 7736 #### [facility] [address] Color (U) YELLOW Normal YELLOW [facility] Comment on above: Order Comment: No: D o not add to previous drawCriteria for reflexing a culture was not met. Please call the lab [id number] within 24 hours of collection time if culture is needed Performed By: #### 3 2043 #### [facility] [address] [place] [address], [place] EPIS NONE SEEN Normal FEW,OCC,NONE SEEN [facility] Comment on above: Order Comment: No: D o not add to previous drawCriteria for reflexing a culture was not met. Please call the lab [id number] within 24 hours of collection time if culture is needed Performed By: #### 3 2043 #### [facility] [address] [place] [address], [place] Glucose Ql (U) Negative Normal NEGATIVE [facility] Comment on above: Order Comment: No: D o not add to previous drawCriteria for reflexing a culture was not met. Please call the lab [id number] within 24 hours of collection time if culture is needed Performed By: #### 3 2043 #### [facility] [address] [place] [address], [place] Hemoglobin Ql (U) TRACE Abnormal NEGATIVE [facility] Comment on above: Order Comment: No: D o not add to previous drawCriteria for reflexing a culture was not met. Please call the lab [id number] within 24 hours of collection time if culture is needed Performed By: #### 3 2043 #### [facility] [address] [place] [address], [place] KETONE Negative Normal NEGATIVE [facility] Comment on above: Order Comment: No: D o not add to previous drawCriteria for reflexing a culture was not met. Please call the lab [id number] within 24 hours of collection time if culture is needed Performed By: #### 3 2043 #### [facility] [address] [place] [address], [place] LEUK TOMA Negative Normal NEGATIVE [facility] Comment on above: Order Comment: No: D o not add to previous drawCriteria for reflexing a culture was not met. Please call the lab [id number] within 24 hours of collection time if culture is needed Performed By: #### 3 2043 #### [facility] [address] [facility] [place] [address], [facility] Nitrite Ql (U) Negative Normal NEGATIVE [facility] Comment on above: Order Comment: No: D o not add to previous drawCriteria for reflexing a culture was not met. Please call the lab [id number] within 24 hours of collection time if culture is needed Performed By: #### 3 2043 #### [facility] [address] pH (U) 6.0 [pH] Normal 5.0-8.0 [facility] Comment on above: Order Comment: No: D o not add to previous drawCriteria for reflexing a culture was not met. Please call the lab [id number] within 24 hours of collection time if culture is needed Performed By: #### 3 2043 #### [facility] [address] [place] [address], [facility] Protein Ql (U) Negative Normal NEGATIVE [facility] Comment on above: Order Comment: No: D o not add to previous drawCriteria for reflexing a culture was not met. Please call the lab [id number] within 24 hours of collection time if culture is needed Performed By: #### 3 2043 #### [facility] [address] [place] [address], [facility] RBC 0-2 Abnormal NONE SEEN [facility] Comment on above: Order Comment: No: D o not add to previous drawCriteria for reflexing a culture was not met. Please call the lab [id number] within 24 hours of collection time if culture is needed Performed By: #### 3 2043 #### [facility] [address] [place] [address], [facility] SPEC GRAV 1.010 Low 1.015-1.020 [facility] Comment on above: Order Comment: No: D o not add to previous drawCriteria for reflexing a culture was not met. Please call the lab [id number] within 24 hours of collection time if culture is needed Performed By: #### 3 2043 #### [facility] [address] [facility] [place] [address], [facility] WBC UA 0-2 Abnormal NONE SEEN [facility] Comment on above: Order Comment: No: D o not add to previous drawCriteria for reflexing a culture was not met. Please call the lab [id number] within 24 hours of collection time if culture is needed Performed By: #### 3 2043 #### [facility] [address] [place] [address], [facility] Covid-19 PCR (CVDTB)on 01-22 SARS-CoV-2 (COVID-19) RNA JJ+probe Ql (Unsp spec) Not detected Normal NOT DETECTED [facility] Comment on above: Result Comment: This test is not yet approved or cleared by the [place] FDA. When there are no FDA-approved or cleared tests available, and other criteria are met, FDA can make tests available under an emergency access mechanism called an Emergency Use Authorization (EUA). The EUA for this test is supported by the [place] of Health and Human Service's (HHS's) declaration that circumstances exist to justify the emergency use of in vitro diagnostics for the detection and/or diagnosis of the virus that causes COVID-19. This EUA will remain in effect (meaning this test can be used) for the duration of the COVID-19 declaration justifying emergency of IVDs, unless it is terminated or revoked by FDA (after which the test may no longer be used). When diagnostic testing is negative, the possibility of a false negative should be considered in the context of a patient's recent exposures and the presence of clinical signs and symptoms consistent with SARS-CoV-2. Performed By: #### H H #### [facility] [address] [place] [address] Yoselin Rivera HEMOGRAM AND PLATELon 2021 Hematocrit (Bld) [Volume fraction] 42.9 % Normal 42.0-54.0 [facility] Comment on above: Performed By: #### H H #### [facility] [address] [place], [place] [address] Dr. Yoselin Rivera Hemoglobin (Bld) [Mass/Vol] 14.0 g/dL Normal 14.0-18.0 [facility] Comment on above: Performed By: #### H H #### [facility] [address] [place] [address] Dr. Yoselin Rivera MCH (RBC) [Entitic mass] 30.7 pg Normal 25.9-34.0 [facility] Comment on above: Performed By: #### H H #### [facility] [address] [place] [address] Dr. Yoselin Rivera MCHC (RBC) [Mass/Vol] 32.6 g/dL Normal 29.9-35.2 [facility] Comment on above: Performed By: #### H H #### [facility] [address] [place] [address] Dr. Yoselin Rivera MCV (RBC) [Entitic vol] 94.1 fL Critically high 80.0-94.0 [facility] Comment on above: Performed By: #### H H #### [facility] [address] [place] [address] Dr. Yoselin Rivera PLT 153 103/ul Normal 150-450 [facility] Comment on above: Performed By: #### H H #### [facility] [address] [place] [address] Dr. Yoselin Rivera RBC 4.56 106/ul Critically low 4.70-6.10 [facility] Comment on above: Performed By: #### H H #### [facility] [address] [place] [address] Dr. Yoselin Rivera WBC 5.9 103/ul Normal 4.0-11.0 [facility] Comment on above: Performed By: #### H H #### [facility] [address] [place] [address] Dr. Yoselin Rivera PROF CHEM 8 (BAS METB)on Anion gap [Moles/Vol] 9.0 mmol/L Normal [facility] Comment on above: Performed By: #### H H #### [facility] [address] [place] [address] Dr. Yoselin Rivera Calcium [Mass/Vol] 9.1 mg/dL Normal 8.5-10.1 [facility] [place] Comment on above: Performed By: #### H H #### [facility] [address] [place] [address] Dr. Yoselin Rivera Chloride [Moles/Vol] 104 mmol/L Normal 98-107 [facility] Comment on above: Performed By: #### H H #### [facility] [address] [place] [address] [address] Yoselin Rivera CO2 [Moles/Vol] 30.0 mmol/L Normal 21.0-32.0 [facility] Comment on above: Performed By: #### H H #### [facility] [address] [place] [address] Dr. Yoselin Rivera Creatinine [Mass/Vol] 0.98 mg/dL Normal 0.70-1.30 [facility] Comment on above: Performed By: #### H H #### [facility] [address] [place] [address] Dr. Yoselin Rivera EGFR-AF [place] >60 Normal >=60 [facility] Comment on above: Performed By: #### H H #### [facility] [address] [place] [address] Dr. Yoselin Rivera EGFR-NON AF [place] >60 Normal >=60 [facility] Comment on above: Performed By: #### H H #### [facility] [address] [place] [address] Dr. Yoselin Rivera Glucose [Mass/Vol] 122 mg/dL Critically high 74-106 [facility] Comment on above: Performed By: #### H H #### [facility] [address] [place] [address] Dr. Yoselin Rivera Potassium [Moles/Vol] 4.0 mmol/L Normal 3.5-5.1 [facility] Comment on above: Performed By: #### H H #### [facility] [address] [place] [address] Dr. Yoselin Rivera Sodium [Moles/Vol] 139 mmol/L Normal 136-145 [facility] Comment on above: Performed By: #### H H #### [facility] [address] [place] [address] [address] Yoselin Rivera Urea nitrogen [Mass/Vol] 19.0 mg/dL Critically high 7.0-18.0 [facility] Comment on above: Performed By: #### H H #### [facility] [address] [place] [address] [address] Yoselin Rivera Urea nitrogen/Creatinine [Mass ratio] 19.4 mg/mg Normal [facility] Comment on above: Performed By: #### H H #### [facility] [address] [place] [address] [address] Yoselin Rivera NM STRESS/REST MULTIon 02-07 NM STRESS/REST MULTI Patient: YARON AMIN Exam Date: 02/07/2022 : 1945 Gender:M Ordering : DR DONAVAN SAEED M.D. Admission #: [id number] Family : DR ELLIOT ROSALES M.D. Order #: [id number] CLICK HERE TO VIEW EXAM RADIOLOGY REPORT PROCEDURE: RADIONUCLIDE IMAGING STRESS/REST MULTI COMPARISON: None. INDICATIONS: Chest pain TECHNIQUE: Exam Description: Stress/Rest one day protocol gated SPECT Rest Imagin.9 mCi Tc-99m Cardiolite IV on 02/07/2022 Stress Imaging 30.6 mCi Tc-99m Cardiolite IV on 02/07/2022 Exercise Protocol: Dany Heart Rate (bpm): Rest: 61 Max: 123 PMHR: 85 Blood Pressure: Rest: 138/80 Max: 154/90 Exercise Time: Minutes: 7 Seconds: 00 Stage Reached: Stage: 2 Mets 10.1 Symptoms: chest pain Rest and peak stress ECG findings were abnormal and the exercise portion of the study was abnormal per attending physician Dr. Main Augustin due to EKG changes. For more details please see separate cardiac stress test report. FINDINGS: QUALITY OF STUDY: Excellent. PERFUSION DEFECT: LOCATION: Apical anterior. Apical inferior-lateral. SIZE: Both areas are small (1-2 segments). SEVERITY: Anterior wall is mild. Inferior-lateral wall is mild-moderate TYPE: Anterior wall is fixed. Inferior-lateral wall shows mild reperfusion. WALL MOTION: Moderate global hypokinesis. Akinesis of the inferior wall. LV SIZE: Enlarged; EDV 148 mL. TID / TCD: Yes; 1.6 LVEF: Abnormal. Calculated EF 40%. SUMMARY: Myocardial perfusion imaging study has ABNORMAL findings. CONCLUSION: 1. Small area of mildly reversible perfusion involving the mid and apically inferior lateral wall suggestive of acute ischemia. 2. Small fixed perfusion defect involving the apically anterior wall. 3. Left ventriculomegaly and low ejection fraction. 4. Akinesis of the inferior wall; moderate global hypokinesis. Dictated by: Magalis Cha M.D. on 02/08/2022 at 09:25 Approved by: Magalis Cha M.D. on 02/08/2022 at 09:32 Normal [facility] URINALYSISOrdered By: Annei sanchez on 09-19-2021 Bacteria LM Ql (Urine sed) Trace /HPF Normal Trace/HPF [facility] UA Auto SS Bilirubin Ql (U) Negative (09/19/21 12:29 PM) Normal Negative [facility] UA Auto SS Clarity (U) SL CLOUDY Invalid Interpretation Code [facility] UA Auto SS Color (U) Yellow (09/19/21 12:29 PM) Normal Yellow [facility] UA Auto SS Epithelial cells.squamous LM.HPF (Urine sed) [#/Area] 0-2 /HPF Normal 0-2/HPF [facility] UA Aut o SS Glucose Test strip (U) [Mass/Vol] Negative (09/19/21 12:29 PM) Normal Negative [facility] UA Auto SS Hemoglobin Ql (U) Trace *ABN* (09/19/21 12:29 PM) Invalid Interpretation Code Negative [facility] UA Auto SS Ketones (U) [Mass/Vol] Trace *NA* (09/19/21 12:29 PM) Invalid Interpretation Code Negative [facility] UA Auto SS Spivey.plasma/Lithiu m.RBC (Bld) [Mass ratio] 0-3 /HPF Normal 0-3/HPF [facility] UA Auto SS Mucus Ql (Urine sed) Trace (09/19/21 12:29 PM) Normal [facility] UA Auto SS Nitrite Ql (U) Negative (09/19/21 12:29 PM) Normal Negative [facility] UA Auto SS pH (U) 5.5 *NA* (09/19/21 12:29 PM) Invalid Interpretation Code 5.0 - 9.0 [facility] UA Auto SS Protein (U) [Mass/Vol] Negative (09/19/21 12:29 PM) Normal Negative [facility] UA Auto SS Specific gravity (U) [Rel density] >=1.030 *NA* (09/19/21 12:29 PM) Invalid Interpretation Code 1.005 - 1.030 [facility] UA Auto SS UA Spec Desc Random Urine (09/19/21 12:29 PM) Normal [facility] UA Auto SS Urobilinogen Qn (U) [id number] {Kayce'U}/dL Normal 0.0 - 1.0 EU/dL [facility] UA Auto SS WBC Auto Ql (U) 2+ *ABN* (09/19/21 12:29 PM) Invalid Interpretation Code Negative [facility] UA Auto SS WBC LM.HPF (Urine sed) [#/Area] /[HPF] Invalid Interpretation Code 0-5/HPF [facility] UA Auto SS Vital Signs Date Time Vital Sign Value Performing Clinician Facility 05-19-2023 10:00-0500 Body height 176.53 cm Elliot Rosales Other [facility] Other 05-19-2023 10:00-0500 Body mass index (BMI) [Ratio] 28.79 kg/m2 Elliot Rosales Other [facility] Other 05-19-2023 10:00-0500 Body weight 89.73 kg Elliot Rosales Other [facility] Other 05-19-2023 10:00-0500 Diastolic blood pressure 84 mm[Hg] Elliot Rosales Other [facility] Other 05-19-2023 10:00-0500 Systolic blood pressure 142 mm[Hg] Elliot Rosales Other [facility] Other 04-16-2023 09:42-0400 Blood Pressure Location Patience Huitron [facility] 04-16-2023 09:42-0400 Diastolic blood pressure 79 mm[Hg] Patience Lue [facility] 04-16-2023 09:42-0400 Heart rate 68 /min Patience Lue [facility] 04-16-2023 09:42-0400 Respiratory rate 16 /min Patience Lue [facility] 04-16-2023 09:42-0400 Systolic blood pressure 134 mm[Hg] Patience Lue [facility] 01-28-2023 10:40-0400 Body height 176.53 cm Jenifer [employer] Other [facility] Other 01-28-2023 10:40-0400 Body mass index (BMI) [Ratio] 28.61 kg/m2 [facility] [employer] Other [facility] Other 01-28-2023 10:40-0400 Body temperature 96.2 [degF] Jenifer [employer] Other [facility] Other 01-28-2023 10:40-0400 Body weight 89.18 kg Jenifer [employer] Other [facility] [facility] Other 01-28-2023 10:40-0400 Diastolic blood pressure 72 mm[Hg] [facility] [employer] Other [facility] [facility] [facility] Other 01-28-2023 10:40-0400 Respiratory rate 18 /min [employer] [employer] Other [facility] Other 01-28-2023 10:40-0400 SaO2% (BldA) [Mass fraction] 100 % Jenifer Jensen Other [facility] Other 01-28-2023 10:40-0400 Systolic blood pressure 124 mm[Hg] Jenifer Jensen Other [facility] Other 12-13-2022 11:44-0400 Diastolic blood pressure 63 mm[Hg] MD Elliot Rosales Work Phone: [facility] 12-13-2022 11:44-0400 Heart rate 59 /min MD Elliot Rosales Work Phone: [facility] 12-13-2022 11:44-0400 Respiratory rate 16 /min MD Elliot Rosales Work Phone: [facility] 12-13-2022 11:44-0400 SaO2% (BldA) [Mass fraction] 97 % MD Elliot Rosales Work Phone: [facility] 12-13-2022 11:44-0400 Systolic blood pressure 128 mm[Hg] MD Elliot Rosales Work Phone: [facility] 12-13-2022 09:38-0400 Body height 177.8 cm MD Elliot Rosales Work Phone: [facility] 12-13-2022 09:38-0400 Body weight 87.99 kg MD Elliot Rosales Work Phone: [facility] 12-04-2022 09:11-0400 Blood Pressure Location Patience Lue [facility] 12-04-2022 09:11-0400 Diastolic blood pressure 74 mm[Hg] Patience Lue [facility] 12-04-2022 09:11-0400 Heart rate 68 /min Patience Lue [facility] 12-04-2022 09:11-0400 Respiratory rate 16 /min Patience Morrelle [facility] 12-04-2022 09:11-0400 Systolic blood pressure 130 mm[Hg] Patience Lue [facility] 09-24-2022 13:03-0400 Body temperature 97.11 [degF] ELSI Doyle MD Work Phone: [facility] 09-24-2022 13:03-0400 Body weight 86 kg ELSI Doyle MD Work Phone: [facility] 09-24-2022 13:03-0400 Diastolic blood pressure 79 mm[Hg] ELSI Doyle MD Work Phone: [facility] 09-24-2022 13:03-0400 Heart rate 60 /min ELSI Doyle MD Work Phone: [facility] 09-24-2022 13:03-0400 Respiratory rate 18 /min ELSI Doyle MD Work Phone: [facility] 09-24-2022 13:03-0400 SaO2% (BldA) [Mass fraction] 100 % ELSI Doyle MD Work Phone: [facility] 09-24-2022 13:03-0400 Systolic blood pressure 129 mm[Hg] ELSI Doyle MD Work Phone: [facility] 09-23-2022 10:45-0400 Body height 176.53 cm Elliot Rosales Other [facility] Other 09-23-2022 10:45-0400 Body mass index (BMI) [Ratio] 28.67 kg/m2 Elliot Rosales Other [facility] Other 09-23-2022 10:45-0400 Body weight 89.36 kg Elliot Rosales Other [facility] Other 09-23-2022 10:45-0400 Diastolic blood pressure 70 mm[Hg] Elliot Rosales Other [facility] Other 09-23-2022 10:45-0400 Systolic blood pressure 118 mm[Hg] Elliot Rosales Other [facility] Other 08-19-2022 10:30-0500 Body height 176.53 cm Elliot Rosales Other [facility] Other 08-19-2022 10:30-0500 Body mass index (BMI) [Ratio] 27.94 kg/m2 Elliot Rosales Other [facility] Other 08-19-2022 10:30-0500 Body weight 87.09 kg Elliot Rosales Other [facility] Other 08-19-2022 10:30-0500 Diastolic blood pressure 80 mm[Hg] Elliot Rosales Other [facility] Other 08-19-2022 10:30-0500 SaO2% (BldA) [Mass fraction] 98 % Elliot Rosales Other [facility] Other 08-19-2022 10:30-0500 Systolic blood pressure 122 mm[Hg] Elliot Rosales Other [facility] Other 08-13-2022 10:40-0500 Body height 177.8 cm Jneifer Vint Traininganni Other [facility] Other 08-13-2022 10:40-0500 Body mass index (BMI) [Ratio] 27.55 kg/m2 [employer] Other [facility] Other 08-13-2022 10:40-0500 Body weight 87.09 kg Jenifer Monreals Other [facility] Other 08-13-2022 10:40-0500 Diastolic blood pressure 70 mm[Hg] Azvern Monreals Other [facility] Other 08-13-2022 10:40-0500 Respiratory rate 18 /min Jenifer Monreals Other [facility] Other 08-13-2022 10:40-0500 SaO2% (BldA) [Mass fraction] 97 % Jenifer Monreals Other [facility] Other 08-13-2022 10:40-0500 Systolic blood pressure 149 mm[Hg] Jenifer Monreals Other [facility] Other 06-05-2022 09:28-0500 Blood Pressure Location Patience Lue [facility] 06-05-2022 09:28-0500 Diastolic blood pressure 69 mm[Hg] Patience Lue [facility] 06-05-2022 09:28-0500 Heart rate 65 /min Patience Lue [facility] 06-05-2022 09:28-0500 Systolic blood pressure 128 mm[Hg] Patience Lue [facility] 04-30-2022 11:00-0500 Body height 177.8 cm Jenifer Monreals Other [facility] Other 04-30-2022 11:00-0500 Body mass index (BMI) [Ratio] 25.77 kg/m2 Jenifer Jensen Other [facility] Other 04-30-2022 11:00-0500 Body temperature 96.2 [degF] Jenifer Monreals Other [facility] Other 04-30-2022 11:00-0500 Body weight 81.47 kg Jenifer Monreals Other [facility] Other 04-30-2022 11:00-0500 Diastolic blood pressure 72 mm[Hg] Jenifer Monreals Other [facility] Other 04-30-2022 11:00-0500 Respiratory rate 18 /min Jenifer Monreals Other [facility] Other 04-30-2022 11:00-0500 SaO2% (BldA) [Mass fraction] 99 % Jenifer Jensen Other [facility] Other 04-30-2022 11:00-0500 Systolic blood pressure 111 mm[Hg] Jenifer Monreals Other [facility] Other 12-03-2021 13:10-0400 Diastolic blood pressure 73 mm[Hg] Patience Lue [facility] 12-03-2021 13:10-0400 Heart rate 62 /min Patience Lue [facility] 12-03-2021 13:10-0400 Systolic blood pressure 124 mm[Hg] Patience Lue [facility] 09-25-2021 13:07-0400 Body temperature 96.4 [degF] ELSI Doyle MD Work Phone: [facility] 09-25-2021 13:07-0400 Body weight 87.54 kg NA Yanira DUNN Work Phone: [facility] 09-25-2021 13:07-0400 Diastolic blood pressure 70 mm[Hg] ELSI Doyle MD Work Phone: [facility] 09-25-2021 13:07-0400 Heart rate 62 /min ELSI Doyle MD Work Phone: [facility] 09-25-2021 13:07-0400 Respiratory rate 16 /min ELSI Doyle MD Work Phone: [facility] 09-25-2021 13:07-0400 SaO2% (BldA) [Mass fraction] 98 % ELSI Doyle MD Work Phone: [facility] 09-25-2021 13:07-0400 Systolic blood pressure 133 mm[Hg] ELSI Doyle MD Work Phone: [facility] 09-19-2021 09:38-0400 Blood Pressure Location Patience Lue [facility] 09-19-2021 09:38-0400 Diastolic blood pressure 78 mm[Hg] Patience Lue [facility] 09-19-2021 09:38-0400 Heart rate 68 /min Patience Lue [facility] 09-19-2021 09:38-0400 Respiratory rate 16 /min Patience Lue [facility] 09-19-2021 09:38-0400 Systolic blood pressure 128 mm[Hg] Patience Huitron [facility] En[facility]ters Encounter Date Encounter Type Care Provider Facility Start: 07-23-2023 ambulatory Patience M. Lue Facility:[facility] Start: 05-19-2023 End: 05-19-2023 ambulatory Elliot Rosales Other [facility] Other Start: 05-19-2023 Office outpatient vi sit 10 minutes Elliot Rosales [facility] Start: 05-12-2023 End: 05-12-2023 ambulatory [facility] Start: 04-16-2023 End: 04-17-2023 ambulatory Patience M. Lue Facility:[facility] Start: 04-16-2023 End: 04-16-2023 Patient encounter procedure Patience M. Lue [facility] Start: 03-03-2023 End: 03-04-2023 ambulatory Patience M. Lue Facility:[facility] Start: 03-03-2023 End: 03-03-2023 Patient encounter procedure Patience M. Lue [facility] Start: 02-18-2023 End: 02-18-2023 ambulatory R[facility] Start: 01-28-2023 End: 01-28-2023 ambulatory Jenifer Jenesn Other [facility] Other Start: 01-28-2023 Office outpatient vi sit 15 minutes Jenifer Jensen [facility] Ra[facility] Start: 12-20-2022 End: 12-20-2022 ambulatory PHYLLIS GRANT [facility] Start: 12-20-2022 End: 12-20-2022 Encounter for preprocedural cardiovascular examination PHYLLIS GRANT [facility] Start: 12-13-2022 End: 12-13-2022 ambulatory Elliot Rosales Facility:[facility] Start: 12-13-2022 End: 12-13-2022 Admission to same day surgery center MD Elliot Rosales Work Phone: [facility] Work Phone: Start: 12-13-2022 End: 12-13-2022 ambulatory MD Elliot Rosales Work Phone: [facility] Work Phone: Start: 12-04-2022 End: 12-05-2022 ambulatory Patience Huitron Facility:[facility] Start: 12-04-2022 End: 12-04-2022 Patient encounter procedure Patience Huitron [facility] Start: 09-24-2022 End: 09-24-2022 ambulatory Ema DOYLE Facility:[facility] Start: 09-24-2022 End: 09-24-2022 Patient encounter procedure Ema Doyle MD Work Phone: Radiation Oncology Comment on above: History of prostate cancer (Primary Dx) Start: 09-23-2022 End: 09-23-2022 ambulatory Elliot Rosales Other [facility] Other Start: 09-23-2022 Office outpatient vi sit 15 minutes Elliot Rosales [facility] Start: 09-23-2022 Telephone encounter Elliot Rosales [facility] Start: 09-18-2022 End: 09-19-[address] ELLIOT ROSALES Facility: Start: 08-26-2022 End: 08-26-2022 ambulatory Elliot Rosales Other [facility] Other Start: 08-26-2022 Telephone encounter Elliot Rosales [facility] Start: 08-19-2022 End: 08-19-2022 ambulatory Elliot Rosales Other [facility] Other Start: 08-19-2022 Office outpatient vi sit 15 minutes Elliot Rosales [facility] Start: 08-13-2022 End: 08-13-2022 ambulatory Jenifer Jensen Other [facility] Other Start: 08-13-2022 Office outpatient vi sit 15 minutes Aziz Bakhous [facility] Ne[facility] Ra[facility] Start: 08-05-2022 End: 08-06-[address] ELLIOT ROSALES Facility: Start: 06-25-2022 End: 07-10-[address] ELLIOT ROSALES Facility:[facility] Start: 06-18-2022 End: 06-19-[address] ELLIOT ROSALES Facility: Start: 06-05-2022 End: 06-06-2022 ambulatory Patience Huitron Facility:[facility] Start: 06-05-2022 End: 06-05-2022 Patient encounter procedure Patience Huitron [facility] Start: 06-03-2022 End: 06-04-[address] ELLIOT ROSALES Facility: Start: 05-27-2022 End: 05-27-2022 ambulatory [facility] Start: 05-22-2022 End: 05-23-[address] ELLIOT ROSALES Facility:[facility] Start: 04-30-2022 End: 04-30-2022 ambulatory Jenifer Jensen Other [facility] Other Start: 04-30-2022 Office outpatient ne w 30 minutes Aziz Bakhous [facility] Start: 04-26-2022 End: 04-27-2022 ambulatory PHYLLIS GRANT Facility:[facility] Start: 04-03-2022 End: 06-25-[address] ELLIOT ROSALES Facility:[facility] Start: 02-15-2022 End: 02-28-2022 Evaluation and management of inpatient Christiane Olson Facility:[facility] Start: 02-15-2022 Encounter for preprocedural laboratory examination DONAVAN SAEED [facility] Start: 02-13-2022 End: 02-14-[address] ELLIOT ROSALES Facility:[facility] Start: 02-13-2022 End: 02-14-2022 Encounter for preprocedural laboratory examination DR ELLIOT ROSALES Facility:[facility] Start: 02-07-2022 End: 02-08-[address] ELLIOT ROSALES Facility:[facility] Start: 12-03-2021 End: 12-03-2021 Patient encounter procedure Patience Huitron [facility] Start: 10-01-2021 End: 10-01-2021 Patient encounter procedure Patience uHitron [facility] Start: 09-25-2021 End: 09-25-2021 Patient encounter procedure Ema Doyle MD Work Phone: Radiation Oncology Comment on above: History of prostate cancer (Primary Dx) Start: 09-19-2021 End: 09-19-2021 Lab Drop off Patience Huitron [facility] Start: 09-19-2021 End: 09-19-2021 Patient encounter procedure Patience Huitron [facility] Procedures Date Procedure Procedure Detail Performing Clinician Start: 03-03-2023 Transurethral insert ion of prostatic urethral lift implant Patience Huitron Comment on above: 5 implants attempted . 5 seated. Start: 12-13-2022 Screening colonoscopy Jefferson Rosales Work Phone: Start: 09-18-2022 End: 09-18-2022 PSA screening [facility] Provider Comment on above: Performed By: #### P SAD #### [facility] [address] [address] [address] Yoselin Rivera Start: 02-19-2022 Antibody screen Christiane urban Comment on above: Performed By: #### 3 2043 #### [facility] [address] Start: 01-21-2022 Open heart surgery Osiris y Lusarita Start: 10-01-2021 Transurethral cystoscopy Patience Tomy Start: 09-25-2021 Adult depression scr eening assessment ELSI Doyle MD Work Phone: Start: 09-19-2021 PSA screening [facility] Provi debbie Start: 06-23-2011 Brachytherapy Patience Lue Cataract (morphologi c abnormality) Patience Lue Colonoscopy Patience Lue Plan of Treatment Date Care Activity Detail Author Start: 09-25-2023 End: 11-25-2023 Prostate specific Ag [Mass/volume] in Serum or Plasma PSA/PROSTSPECAG DIAG Lab Routine History of prostate cancer Expected: 09/25/2023 (Approximate), Expires: 11/25/[address] [facility] Work Phone: Comment on above: Expected: 09/25/2023 (Approximate), Expires: 11/25/2023 Start: 02-21-2023 Influenza vaccination INFLUENZ A (Season Ended) [facility] Start: 12-13-2022 [facility] Start: 09-25-2022 Adult depression screening assessment DEPRESSION SCREENING [facility] Start: 09-25-2022 End: 11-25-2022 Prostate specific Ag [Mass/volume] in Serum or Plasma PSA/PROSTSPECAG DIAG Lab Routine History of prostate cancer Expected: 09/25/2022 (Approximate), Expires: 11/25/[address] [facility] Work Phone: Comment on above: Expected: 09/25/2022 (Approximate), Expires: 11/25/2022 Start: 06-23-2022 ADVANCE DIRECTIVE DISCUSSION ADVANCE DIRECTIVE DISCUSSION [facility] Start: 06-23-2022 DEPRESSION ASSESSMENT DEPRESSION ASS ESSMENT [facility] Start: 02-21-2022 Influenza vaccination INFLUENZ A (Season Ended) [facility] Start: 06-23-2021 ADVANCE DIRECTIVE DISCUSSION ADVANCE DIRECTIVE DISCUSSION [facility] Start: 11-08-2020 COVID-19 VACCINE (3 - Booster for Julito series) COVID-19 VACCINE (3 - Booster for Julito series) [facility] Start: 2011 PNEUMOVAX AGE 65 AND OVER WITH 5YR LOOKBACK (#1) PNEUMOVAX AGE 65 AND OVER WITH 5YR LOOKBACK (#1) [facility] Start: 1996 SHINGRIX VACCINE (1 of 2) SHINGRIX VACCINE (1 of 2) [facility] Start: 1991 COLOGUARD (FIT-DNA) COLOGUARD (FIT-D NA) [facility] Start: 1991 Colonoscopy COLONOSCOPY [facility] Start: 1991 COLORECTAL CANCER SCREENING COLORECTAL CANCER SCREENING [facility] Start: [address] COLONOGRAPHY [facility] Start: 1991 DIABETES SCREEN DIABETES SCREEN [facility] Start: 1991 FECAL OCCULT BLOOD FECAL OCCULT BLOO D [facility] Start: 1991 SIGMOIDOSCOPY SIGMOIDOSCOPY [facility] Start: 1981 LIPID SCREEN LIPID SCREEN [facility] Start: 1965 Urine microalbumin profile DTAP,TDAP,TD (1 - Tdap) [facility] Start: 1964 HEPATITIS C SCREENING HEPATITIS C SC STEPHANIA [facility] Start: 1952 PNEUMOCOCCAL: 65+ (1 - PCV) PNEUMOCOCCAL: 65+ (1 - PCV) [facility] Patient Education Colon polyps [facility] Phone[facility] Immunizations Immunization Date Immunization Notes Care Provider Fa cility 05-05-2022 pneumococcal 20-corina nt conjugate vaccine Patience Lue [facility] 04-21-2022 SARS-CoV-2 (COVID-19 ) [id number] Patience Lue [facility] 04-27-2021 SARS-CoV-2 (COVID-19 ) mRNA-1273 vaccine Patience Lue [facility] 03-21-2021 pneumococcal polysaccharide vaccine, 23 valent Patience Lue [facility] 01-24-2021 zoster vaccine recombinant Patience Lue [facility] 11-08-2020 zoster vaccine recombinant Patience Lue [facility] 09-13-2020 SARS-CoV-2 (COVID-19 ) Ad26 vaccine, recombinant Patience Lue [facility] 08-17-2020 SARS-CoV-2 (COVID-19 ) Ad26 vaccine, recombinant Patience Lue [facility] 11-19-2016 pneumococcal conjuga te vaccine, 13 valent Patience Lue [facility] Payers Date Payer Category Payer Self-pay 2019 Unknown MMO MMO MEDICARE SUPPLEMENT [id number] 2019-Present [phone] [address] [place] [address] Indemnity [id number] 2019 Unknown MMO MMO MEDICARE SUPPLEMENT [id number] 2019-Present [phone] [address] [place] [address] Indemnity [id number] 2011 Medicare MEDICARE MEDICAR E A AND B [id number] 2011-Present [phone] [address] [address] [place] [address] Medicare [id number] 2011 Medicare MEDICARE MEDICAR E A AND B [id number] 2011-Present [phone] [address] [address] [place] [address] Medicare [id number] 1959 Medicare [id number] 1959 Unknown [id number] 1946 Unknown [id number] 1946 Unknown [id number] [id number] 1946 Unknown [id number] [id number] 1946 Unknown [id number] 1946 Unknown [id number] [id number] 1946 Unknown [id number] [id number] 1946 Unknown [id number] [id number] 1946 Unknown [id number] [id number] 1946 Unknown [id number] [id number] 1946 Unknown [id number] [id number] 1946 Unknown [id number] [id number] 1946 Unknown [id number] [id number] 1946 Unknown [id number] [id number] 1946 Unknown [id number] [id number] 1946 Unknown [id number] [id number] 1946 Unknown [id number] [id number] Unknown [employer] [id number] Unknown [id number] Social History Date Type Detail Facility Start: 09-19-2021 Tobacco smoking status Smoker (findi ng) [facility] Sex Assigned At Male [facility] Start: 10-08-2017 Tobacco smoking stat us NMIS Smokes tobacco daily [facility] History of tobacco use [facility]igarette [facility] Start: 09-21-2020 Alcohol intake Current drinke r of alcohol (finding) [facility] Start: 1945 Sex Assigned At Not on file [facility] Start: 09-15-2021 End: 09-25-2021 Exposure to SARS-CoV-2 (event) Not sure [facility] Start: 10-08-2017 Tobacco use and exposure Smokeless tobacco non-user [facility] Start: 12-04-2022 End: 04-16-2023 Tobacco smoking status Ex-smoker (finding) [facility] Start: 1945 Sex Assigned At Male F [facility] Tobacco smoking status Never [facility] Goals Date Patient Goal Desired Activity /State Functional Status Date Assessment Result Facility 04-16-2023 Functional Status N/A [facility] 12-04-2022 Functional Status N/A [facility] 06-05-2022 Functional Status N/A [facility] 12-03-2021 Functional Status N/A [facility] Clinical Notes 09-19-2021 to 05-19-2023 Note Date & Type Note Facility 05-19-2023 Evaluation note Encounter Date Diagnosis Assessment Notes Apr, Visit for suture removal (ICD-10 - Z48.02) Area cleaned and sutures removed. Pt tolerated well. [facility] Other [id number] NoteUT Electrophysiology Consult Note Reason for visit: PPM, CAD/CABG, HCM, NSVT s/p ICD 05/12/23: Patient for 6-month follow-up, is been doing well with no complaints of chest pain, shortness breath, CALDERÓN, LE edema Device check 05/12/23: a=paced 43% . Rate response increased to allow for better exertional response, on DDD , no AF 02/18/23 dr. urrutia HPI: Ignacio Amin is a 77 y.o. year old with past medical history of multivessel disease s/p 3vCABG on , postoperative Afib s/p FARHEEN DCCV on 02/27/22, now on Amio, HCM, NSVT s/p ICD. Patient here for follow up afib s/p CABG and device check. Still does phase 3 cardiac rehab once a week. Denies chest pain, palpitations, and bleeding on Eliquis. he has not had an echocardiogram for more than a year. Device check 02/18/23 Biotronik dual-chamber ICD with 53% atrial pacing and 2% RV pacing blood pressure also less than 1 V and no evidence of A-fib was seen Review of Systems Cardiovascular: Positive for dyspnea on exertion. Musculoskeletal: Positive for joint pain. All other systems reviewed and are negative. PMH: Past Medical History: Diagnosis Date Atrial fibrillation (CMS/HCC) Cardiomyopathy (CMS/HCC) Cardiomyopathy due to hypertension, without heart failure (CMS/HCC) Coronary arteriosclerosis Dyspnea on exertion HTN (hypertension) Hyperlipidemia Ischemic heart disease PSH: Past Surgical History: Procedure Laterality Date CARDIAC CATHETERIZATION CARDIAC PACEMAKER PLACEMENT 04/25/2016 Biotronik dual chamber ICd CARDIAC PACEMAKER PLACEMENT 04/25/2016 CATARACT EXTRACTION COLON SURGERY CORONARY ARTERY BYPASS GRAFT 02/20/202202/20- Coronary bypass grafting x3, with LANGSTON to LAD, saphenous vein to the obtuse marginal branch of the circumflex and saphenous vein to the PDA of the right coronary artery, and the vascular vein harvesting of the left greater saphenous vein. CTA CHEST W AND/OR WO IV CONTRAST 02/20/2022 CT CHEST ANGIOGRAM W AND/OR WO IV CONTRAST GREEN CONVERSION PROSTATE SURGERY SH: Social Determinants of Health Tobacco Use: High Risk (12/20/2022) Patient History Smoking Tobacco Use: Every Day Smokeless Tobacco Use: Never Passive Exposure: Not on file Alcohol Use: Not on file Financial Resource Strain: Not on file Food Insecurity: Not on file Transportation Needs: Not on file Physical Activity: Not on file Stress: Not on file Social Connections: Not on file Intimate Partner Violence: Not on file Depression: Not on file Housing Stability: Not on file Allergies: Allergies Allergen Reactions Influenza Virus Vaccine Tv Split 2010- (60 Yr +) Other Weight: No weight available Visit Vitals Smoking Status Every Day Meds: Current Outpatient Medications on File Prior to Visit Medication Sig Dispense Refill apixaban (Eliquis) 5 mg tablet Take 1 tablet (5 mg) by mouth in the morning and at bedtime. 180 tablet 3 aspirin 81 mg EC tablet Take 1 tablet every day by oral route. atorvastatin (Lipitor) 80 mg tablet Take 1 tablet (80 mg) by mouth at bedtime. 90 tablet 3 ferrous sulfate 325 (65 Fe) MG tablet Take 65 mg by mouth with breakfast. furosemide (Lasix) 20 mg tablet Take 1 tablet (20 mg) by mouth in the morning. 90 tablet 3 melatonin 10 mg tablet Take by mouth. metoprolol succinate XL (Toprol-XL) 50 mg 24 hr tablet Take 1 tablet (50 mg) by mouth in the morning. 90 tablet 3 mirabegron (Myrbetriq) 25 mg tablet extended release 24 hr Take 1 tablet by mouth in the morning. potassium chloride CR (Klor-Con M20) 20 mEq ER tablet Take 1 tablet (20 mEq) by mouth in the morning. Do not crush or chew. 90 each 3 tamsulosin (Flomax) 0.4 mg 24 hr capsule Take 1 capsule by mouth in the morning. No current facility-administered medications on file prior to visit. ROS: Cardio Basic Cardiovascular Symptoms: no lightheadedness, no leg edema, no syncope, no orthopnea, no PND, no claudication, Constitutional Constitutional: no fever, no night sweats, no significant weight gain, no significant weight loss, no exercise intolerance Eyes Eyes: no dry eyes, no irritation, no vision change ENMT Ears: no difficulty hearing, no ear pain Nose: no frequent nosebleeds, Mouth/Throat: no sore throat, no bleeding gums, no snoring, no dry mouth, no mouth ulcers, no oral abnormalities, no teeth problems Respiratory Respiratory: no cough, no wheezing, no coughing up blood, no sleep apnea Musculoskeletal Musculoskeletal: no muscle aches, no muscle weakness, joint pain+, no back pain, no swelling in the extremities Integumentary Skin no rash, no ulcer, no varicosities, no discoloration, no pruritus Neurologic Neurologic: no loss of consciousness, no weakness, no numbness, no seizures, no dizziness, no headaches Psychiatric Psych: no depression, feeling safe in relationship, no alcohol abuse, Hematologic/Lymphatic Hematologic/Lymphatic no swollen glands, no bruising Physic (more content not included)...[facility] 04-16-2023 Hospital Discharge instructions Patient Education 04/16/2023 10:58:52 Benign Prostatic Hyperplasia Benign Prostatic Hyperplasia Benign prostatic hyperplasia (BPH) is an enlarged prostate gland that is caused by the normal agingprocess. The prostate may get bigger as a man gets older. The condition is not caused by cancer. The prostate is a walnut-sized gland that is involved in the production of semen. It is located in front of the rectum and below the bladder. The bladder stores urine. The urethra carries stored urine ou t of the body. An enlarged prostate can press on the urethra. This can make it harder to pass urine. The buildup of urine in the bladder can cause infection. Back pressure and infection may progress to bladder damage and kidney (renal) failure. What are the causes? This condition is part of the normal aging process. However, not all men develop problems from thiscondition. If the prostate enlarges away from the urethra, urine flow will not be blocked. If it enlarges toward the urethra and compresses it, there will be problems passing urine. What increases the risk? This condition is more likely to develop in men older than 50 years. What are the signs or symptoms? Symptoms of this condition include: Getting up often during the night to urinate. Needing to urinate frequently during the day. Difficulty starting urine flow. Decrease in size and strength of your urine stream. Leaking (dribbling) after urinating. Inability to pass urine. This needs immediate treatment. Inability to completely empty your bladder. Pain when you pass urine. This is more common if there is also an infection. Urinary tract infection (UTI). How is this diagnosed? This condition is diagnosed based on your medical history, a physical exam, and your symptoms. Tests will also be done, such as: A post-void bladder scan. This measures any amount of urine that may remain in your bladder after you finish urinating. A digital rectal exam. In a rectal exam, your health care provider checks your prostate by putting a lubricated, gloved finger into your rectum to feel the back of your prostate gland. This exam detects the size of your gland and any abnormal lumps or growths. An exam of your urine (urinalysis). A prostate specific antigen (PSA) screening. This is a blood test used to screen for prostate cancer. An ultrasound. This test uses sound waves to electronically produce a picture of your prostate gland. Your health care provider may refer you to a specialist in kidney and prostate diseases (urologist). How is this treated? Once symptoms begin, your health care provider will monitor your condition (active surveillance or watchful waiting). Treatment for this condition will depend on the severity of your condition. Treatment may include: Observation and yearly exams. This may be the only treatment needed if your condition and symptoms are mild. Medicines to relieve your symptoms, including: ?Medicines to shrink the prostate. ?Medicines to relax the muscle of the prostate. Surgery in severe cases. Surgery may include: ?Prostatectomy. In this procedure, the prostate tissue is removed completely through an open incision or with a laparoscope or robotics. ?Transurethral resection of the prostate (TURP). In this procedure, a tool is inserted through the opening at the tip of the penis (urethra). It is used to cut away tissue of the inner core of the prostate. The pieces are removed through the same opening of the penis. This removes the blockage. ?Transurethral incision (TUIP). In this procedure, small cuts are made in the prostate. This lessens the prostate's pressure on the urethra. ?Transurethral microwave thermotherapy (TUMT). This procedure uses microwaves to create heat. The heat destroys and removes a small amount of prostate tissue. ?Transurethral needle ablation (TUNA). This procedure uses radio frequencies to destroy and remove a small amount of prostate tissue. ?Interstitial laser coagulation (ILC). This procedure uses a laser to destroy and remove a small amount of prostate tissue. ?Transurethral electrovaporization (TUVP). This procedure uses electrodes to destroy and remove a small amount of prostate tissue. ?Prostatic urethral lift. This procedure inserts an implant to push the lobes of the prostate away from the urethra. Follow these instructions at home: Take hqda-nex-xidwnca and prescription medicines only as told by your health care provider. Monitor your symptoms for any changes. Contact your health care provider with any changes. Avoid drinking large amounts of liquid before going to bed or out in public. Avoid or reduce how much caffeine or alcohol you drink. Give yourself time when you urinate. Keep all follow-up visits. This is important. Contact a health care provider if: You have unexplained back pain. Your symptoms do not get better with treatment. You develop side effects from the medicine you are taking. Your urine becomes very dark or has a bad smell. Your lower abdomen becomes distended and you have trouble passing urine. Get help right away if: You have a fever or chills. You suddenly cannot urinate. You feel light-headed or very dizzy, or you faint. There are large amounts of blood or clots in your urine. Your urinary problems become hard to manage. You develop moderate to severe low back or flank pain. The flank is the side of your body between the ribs and the hip. These symptoms may be an emergency. Get help right away. Call 911. Do not wait to see if the symptoms will go away. Do not drive yourself to the hospital. Summary Benign prostatic hyperplasia (BPH) is an enlarged prostate that is caused by the normal aging process. It is not caused by cancer. An enlarged prostate can press on the urethra. This can make it hard to pass urine. This condition is more likely to develop in men older than 50 years. Get help right away if you suddenly cannot urinate. This information is not intended to replace advice given to you by your health care provider. Make sure you discuss any questions you have with your health care provider. Document Revised: 12/26/2021 Document Reviewed: 12/26/2021 [employer] Patient Education 2022 [email or web address]. Follow Up Care 03/03/2023 10:13:49 With:Tomy DUNN, RODERICK Cao, URO Address: When:Within 3 Month(s) [facility] 09-11-2023 Note [id number]:127[facility] 03-03-2023 Hospital Discharge instructions Patient Education 03/03/2023 10:03:09 Tomy - Urolift Post-Op Instructions (CUSTOM) [facility] [place], [place] Post-Operative Instructions for UroLift After your procedure it is normal to have: Gross Hematuria (blood in the urine) You may even notice blood clots in your urine. A small amount of blood may apppear to be a lot of blood in your urine as it is diluted. Restarting your blood thinner, increased activity and heavy lifting could increase the amount of bleeding. The bleeding may besporadic (off and on) over the next 2-3 weeks. Ensure you are hydrating to assist in flushing the blood to prevent voiding complications. In the event you are unable to void, please reach out to our office. If the office is closed, you will need to report to the local emergency room. Blood in your semen and stool may be present. The blood in your semen is not harmful to you or your partner. This w ill resolve with time. Frequency/urgency/burning with urination is very common. This is due to irritation from your procedure. These symptoms do not indicate that your procedure was unsuccessful or that there is an infection. Ensure you are hydrating! You may try AZO over the counter as needed for urinary discomfort. Pain/discomfort are normal as well. There has been a non-narcotic prescription sent to your pharmacy. You may alternate this prescription with over the counter Ibuprofen. Your pain and discomfort should improve within a few days. When do I need to call the office? We ask that you reach out to the office if you experience a temperature of 100.4 F or higher, excessive urinary bleeding, symptoms of infection, inability to urinate or uncontrolled pain. If the office is closed, you may need to present to the local emergency department. Colvin catheter If you have a catheter and will remove it at home, you may do so the next day if urine is clear and no longer red/pink in color. If urine is red, wait until clear to remove the catheter. See attached instructions for removal. Postop UroLift Instructions Complete your antibiotic as instructed. Remain on all your urinary medication until follow up. Take your pain madications and AZO as needed. Resume any blood thinners 48 hour post procedure. Continue to hydrate! Minimize your activity for 72-96 hours post procedure. If you are prescribed Oxybutynin for bladder spasms, you may take this medication every 8 hours as needed. This medication may cause dry mouth/eyes and constipation. Taking an over the counter stool softener and drinking plenty of water will help with side effects. Colvin Catheter Removal Your healthcare provider has instructed you to remove your Colvin catheter. This is a thin, flexibletube that allows urine to drain out of your bladder and into a bag. It is important to properly remove your catheter to prevent infection and other complications. If you have any questions about removing the Colvin catheter, ask your healthcare provider before trying to remove it. Otherwise, follow the instructions on this sheet. Colvin Catheter The Colvin catheter is held in place by a small balloon that is filled with water. To remove the catheter, you must first drain the water from the balloon. This is done using a syringe and the balloonport. This is the opening in the catheter that is not attached to the bag. It allows you to get to the balloon. Instructions for Removing the Catheter Follow the directions closely. Note: If the catheter does not come out with gentle pulling, stop and call your healthcare provider right away. Empty the bag of urine if needed. Wash your hands with soap and warm water. Dry them well. Gather your supplies. This includes a syringe that was given to you by your healthcare provider, a wastebasket, and a towel. Put the syringe into the balloon port on the catheter. The syringe fits tightly into the port with a firm push and twist motion. Wait as the water from the balloon empties into the syringe. Depending on how large the balloon is,you may need to repeat this process several times until all of the water is out of the balloon. Once the balloon is emptied, gently pull out the catheter. Put the used catheter in the wastebasket. Throw away the syringe. Use the towel to wipe up any spilled water or urine if needed. Wash your hands again. When to Call Your Healthcare Provider Call the healthcare provider right away if: You have a fever of 100.4 F (38 C) or higher, or as directed by your healthcare provider. You have questions about removing the catheter. The catheter does not come out with gentle pulling. You cannot urinate within 8 hours of removing the catheter. Your belly (abdomen) is painful or bloated You have burning pain with urination that lasts for 24 hours. You see a lot of blood in your urine. Light bleeding for 24 hours is normal. It feels like the bladder is not emptying. Follow Up Care 02/12/2023 10:35:26 With:Patience Huitron Address: [address] [place] [address] [phone] Business (1) When: Unknown Comments:Office to schedule follow up in 1 month with [facility]08-29-2023 NoteUT Electrophysiology Consult Note Reason for visit: HPI: Ignacio Amin is a 77 y.o. year old with past medical history of multivessel disease s/p 3vCABG on , postoperative Afib s/p FARHEEN DCCV on 02/27/22, now on Amio, HCM, NSVT s/p ICD. Patient here for follow up afib s/p CABG and device check. Still does phase 3 cardiac rehab once a week. Denies chest pain, palpitations, and bleeding on Eliquis. he has not had an echocardiogram for more than a year. Device check 02/18/23 Biotronik dual-chamber ICD with 53% atrial pacing and 2% RV pacing blood pressure also less than 1 V and no evidence of A-fib was seen Review of Systems Cardiovascular: Positive for dyspnea on exertion. Musculoskeletal: Positive for joint pain. All other systems reviewed and are negative. PMH: Past Medical History: Diagnosis Date Atrial fibrillation (CMS/HCC) Cardiomyopathy (CMS/HCC) Cardiomyopathy due to hypertension, without heart failure (CMS/HCC) Coronary arteriosclerosis Dyspnea on exertion HTN (hypertension) Hyperlipidemia Ischemic heart disease PSH: Past Surgical History: Procedure Laterality Date CARDIAC CATHETERIZATION CARDIAC PACEMAKER PLACEMENT 04/25/2016 Biotronik dual chamber ICd CARDIAC PACEMAKER PLACEMENT 04/25/2016 CATARACT EXTRACTION COLON SURGERY CORONARY ARTERY BYPASS GRAFT 02/20/202202/20- Coronary bypass grafting x3, with LANGSTON to LAD, saphenous vein to the obtuse marginal branch of the circumflex and saphenous vein to the PDA of the right coronary artery, and the vascular vein harvesting of the left greater saphenous vein. CTA CHEST W AND/OR WO IV CONTRAST 02/20/2022 CT CHEST ANGIOGRAM W AND/OR WO IV CONTRAST GREEN CONVERSION PROSTATE SURGERY SH: Social Determinants of Health Tobacco Use: High Risk (12/20/2022) Patient History Smoking Tobacco Use: Every Day Smokeless Tobacco Use: Never Passive Exposure: Not on file Alcohol Use: Not on file Financial Resource Strain: Not on file Food Insecurity: Not on file Transportation Needs: Not on file Physical Activity: Not on file Stress: Not on file Social Connections: Not on file Intimate Partner Violence: Not on file Depression: Not on file Housing Stability: Not on file Allergies: Allergies Allergen Reactions Influenza Virus Vaccine Tv Split 2010- (60 Yr +) Other Weight: 89.4kg Visit Vitals BP 136/76 (BP Location: Left arm, Patient Position: Sitting) Pulse 60 Ht 1.753 m (5' 9 ) Wt 89.4 kg (197 lb) SpO2 98% BMI 29.09 kg/m??? Smoking Status Every Day BSA 2.09 m??? Meds: Current Outpatient Medications on File Prior to Visit Medication Sig Dispense Refill apixaban (Eliquis) 5 mg tablet Take 1 tablet (5 mg) by mouth in the morning and at bedtime. 180 tablet 3 aspirin 81 mg EC tablet Take 1 tablet every day by oral route. atorvastatin (Lipitor) 80 mg tablet Take 1 tablet (80 mg) by mouth at bedtime. 90 tablet 3 ferrous sulfate 325 (65 Fe) MG tablet Take 65 mg by mouth with breakfast. furosemide (Lasix) 20 mg tablet Take 1 tablet (20 mg) by mouth in the morning. 90 tablet 3 melatonin 10 mg tablet Take by mouth. metoprolol succinate XL (Toprol-XL) 50 mg 24 hr tablet Take 1 tablet by mouth in the morning. mirabegron (Myrbetriq) 25 mg tablet extended release 24 hr Take 1 tablet by mouth in the morning. potassium chloride CR (Klor-Con M20) 20 mEq ER tablet Take 1 tablet (20 mEq) by mouth in the morning. Do not crush or chew. 90 each 3 tamsulosin (Flomax) 0.4 mg 24 hr capsule Take 1 capsule by mouth in the morning. No current facility-administered medications on file prior to visit. ROS: Cardio Basic Cardiovascular Symptoms: no lightheadedness, no leg edema, no syncope, no orthopnea, no PND, no claudication, Constitutional Constitutional: no fever, no night sweats, no significant weight gain, no significant weight loss, no exercise intolerance Eyes Eyes: no dry eyes, no irritation, no vision change ENMT Ears: no difficulty hearing, no ear pain Nose: no frequent nosebleeds, Mouth/Throat: no sore throat, no bleeding gums, no snoring, no dry mouth, no mouth ulcers, no oral abnormalities, no teeth problems Respiratory Respiratory: no cough, no wheezing, no coughing up blood, no sleep apnea Musculoskeletal Musculoskeletal: no muscle aches, no muscle weakness, joint pain+, no back pain, no swelling in the extremities Integumentary Skin no rash, no ulcer, no varicosities, no discoloration, no pruritus Neurologic Neurologic: no loss of consciousness, no weakness, no numbness, no seizures, no dizziness, no headaches Psychiatric Psych: no depression, feeling safe in relationship, no alcohol abuse, Hematologic/Lymphatic Hematologic/Lymphatic no swollen glands, no bruising Physical Exam: Constitutional General Appearance: well-nourished, well-developed, appears stated age Level of Distress: comfortable Psychiatric Mental Status: alert, normal (more content not included)...[facility]08-08-2023 Evaluation note* Encounter Date Diagnosis Assessment Notes Treatment Notes Treatment Clinical Notes Jan, Acute kidney injury (ICD-10 - N17.9) Patient likely had acute kidney injury from ATN associated with CABG last year 2021. Serum creatinine peaked at 2.1 mg/dL. Kidney function recovered without needing hemodialysis. Jan, Chronic kidney disease, stage 3a (ICD-10 - N18.31) CKD is likely from renovascular disease as the patient has history of coronary disease and hypertension. Serum creatinine 1.24 mg deciliter. UA is beign Blood pressure and volume status is well controlled. I will continue same dose of Lasix. Advised the patient to avoid NSAIDs and to keep himself well-hydrated. I will follow-up with the patient in 6 months Jan, Anemia, unspecified type (ICD-10 - D64.9) Hemoglobin is WNL. Iron, folate and VB12 are all WNL I Jan, History of prostate cancer (ICD-10 - Z85.46) Follows with urology clinic. Jan, Hx of CABG (ICD-10 - Z95.1) Patient has history of coronary disease status post CABG in 2021. Follows with Dr. Andrews in cardiology clinic. Currently on metoprolol. Blood pressures well controlled [employer] Other [id number] NoteWill schedule for ICD device interrogation RTC with Dr Urrutia for evaluation of any recurrent A fib s/p CABG.[facility]06-30-2023 NoteRCRI-2???points Class III Risk 10.1???% 30-day risk of , [place], or cardiac arrest From a cardiology perspective patient may proceed with planned UroLift surgery with urology, he is low to moderate risk for low risk surgery. He may hold Eliquis 2 to 3 days prior to surgery and aspirin for 5 to 7 days prior, please resume all medications postop. Please monitor hemodynamics carefully and prevent any major fluid shifts thank you This is good for the next [facility]06-30-2023 NoteRemains compliant with smoking cessationUnSumma Health 12-20-2022 NoteHypertension is well controlled at home and in office 137/74 Continue toprol, lasixUnSumma Health06-30-2023 NotePatient here for 6 mo follow up CAD, hypertrophic cardiomyopathy, and hypertension. Dr. Saeed stopped his amiodarone, lasix, and potassium at last apt in May 2022. Lasix and potassium were then re-started a week or so later due to weight gain, but at half the dose. He has been out of potassium for a few weeks now, and has been taking the full tablet of lasix. Had colonoscopy last week and had 2 big polyps removed. Denies chest pain, states his CALDERÓN is no more than usual. He is able to do cardiac rehab with no problems. Review of Systems Cardiovascular: Positive for dyspnea on exertion. Musculoskeletal: Positive for joint pain. All other systems reviewed and are negative.[facility] 12-20-2022 NoteUTP CARDIOLOGY PROGRESS NOTE HPI: Ignacio Amin is a 77 y.o. male being seen in follow-up for multivessel disease s/p 3vCABG on , postoperative Afib s/p FARHEEN DCCV on 02/27/22, now on Amio, HCM, NSVT s/p PPM. HPI Pt presents today for evaluation for pre surgery cardiac eval for Urolift with [facility]. Denies chest pain, shortness of breath, orthopnea, leg swelling, palpitations, fast heart rates or bleeding tendencies. Overall states he is feeling well, denied any activity limiting symptoms, and overall he remains quite active and is continuing cardiac rehab and doing well. Review of Systems Constitutional: Negative. Respiratory: Negative. Cardiovascular: Negative. Neurological: Negative. Hematological: Negative. All other systems reviewed and are negative. Visit Vitals BP 139/74 (BP Location: Left arm, Patient Position: Sitting) Pulse 80 Ht 1.753 m (5' 9 ) Wt 88.9 kg (196 lb) SpO2 98% BMI 28.94 kg/m??? Smoking Status Every Day BSA 2.08 m??? Allergies Allergen Reactions Influenza Virus Vaccine Tv Split 2011-05 (60 Yr +) Other Medications: Current Outpatient Medications on File Prior to Visit Medication Sig Dispense Refill apixaban (Eliquis) 5 mg tablet Take 1 tablet (5 mg) by mouth in the morning and at bedtime. 180 tablet 3 aspirin 81 mg EC tablet Take 1 tablet every day by oral route. atorvastatin (Lipitor) 80 mg tablet Take 1 tablet by mouth at bedtime. ferrous sulfate 325 (65 Fe) MG tablet Take 65 mg by mouth with breakfast. furosemide (Lasix) 20 mg tablet Take 1 tablet (20 mg) by mouth in the morning. 90 tablet 3 melatonin 10 mg tablet Take by mouth. metoprolol succinate XL (Toprol-XL) 50 mg 24 hr tablet Take 1 tablet by mouth in the morning. mirabegron (Myrbetriq) 25 mg tablet extended release 24 hr Take 1 tablet by mouth in the morning. tamsulosin (Flomax) 0.4 mg 24 hr capsule Take 1 capsule by mouth in the morning. [DISCONTINUED] amiodarone (Pacerone) 200 mg tablet Take 100 mg by mouth in the morning. [DISCONTINUED] pantoprazole (ProtoNix) 20 mg EC tablet Take 20 mg by mouth before breakfast. Do not crush, chew, or split. No current facility-administered medications on file prior to visit. Physical Exam: Constitutional: Appearance: Normal appearance. Without apparent distress HENT: Head: Normocephalic and atraumatic. Nose: Nose normal. Mouth/Throat: Mouth: Mucous membranes are moist. Eyes: Extraocular Movements: Extraocular movements intact. Conjunctiva/sclera: Conjunctivae normal. Neck: Vascular: No JVD. Cardiovascular: Rate and Rhythm: Normal rate and regular rhythm. Pulses: Dorsalis pedis pulses are 3 on the right side and 3on the left side. Posterior tibial pulses are 3 on the right side and 3 on the left side. Heart sounds: Normal heart sounds, S1 normal and S2 normal. Pulmonary: Effort: Pulmonary effort is normal. Breath sounds: Normal breath sounds. Abdominal: General: Bowel sounds are normal. Palpations: Abdomen is soft. Musculoskeletal: General: Normal range of motion. Cervical back: Normal range of motion. Right lower leg: No edema. Left lower leg: No edema. Skin: Midsternal incision and left lower leg incisions well-healed scar, no signs or symptoms of infection. General: Skin is warm and dry. Capillary Refill: Capillary refill takes less than 2 seconds. Neurological: General: No focal deficit present. Mental Status: alert and oriented to person, place, and time. Psychiatric: Mood and Affect: Mood normal. Behavior: Behavior normal. Thought Content: Thought content normal. Judgment: Judgment normal. Labs: CBC stable Renal function stable Lipid level well controlled 03/19/22 Component Ref Range & Units 9 mo ago (03/19/22) 9 mo ago (02/28/22) 9 mo ago (02/27/22) 9 mo ago (02/26/22) 9 mo ago (02/25/22) 9 mo ago (02/25/22) 9 mo ago (02/24/22) Sodium 136 - 145 mmol/L 139 138 R 137 R 137 R 137 R 135 Low R 134 Low R Potassium 3.5 - 5.1 mmol/L 4.9 3.4 Low R 3.6 R 4.7 R 3.5 R 3.7 R 3.9 R Chloride 98 - 107 mmol/L 99 99 R 98 R 98 R 97 Low R 96 Low R 96 Low R CO2 21 - 31 mmol/L 33 High 28 R 28 R 29 R 29 R 27 R 27 R BUN 7 - 25 mg/dL 35 High 71 High 77 High 80 High 75 High 67 High 67 High Creatinine 0.70 - 1.30 mg/dL 1.93 High 1.51 High 1.63 High 2.10 High 2.05 High 2.09 High 2.13 High Glucose 70 - 100 mg/dL 90 129 High 118 High 115 High 131 High 120 High 96 Calcium 8.6 - 10.3 mg/dL 9.9 9.5 9.4 9.3 9.0 9.0 9.2 Component Ref Range & Units 9 mo ago (02/27/22) 9 mo ago (02/26/22) 9 mo ago (02/25/22) 9 mo ago (02/24/22) 10 mo ago (02/23/22) 10 mo ago (02/22/22) 10 mo ago (02/22/22) Auto WBC 4.00 - 10.60 10*3/uL 6.82 7.11 6.70 5.80 8.45 9.54 RBC 4.20 - 5.70 10*6/uL 3.30 Low 3.16 Low 3.11 Low 3.13 Low 3.29 Low 6-10 Abnormal R 3.41 Low Hemoglobin 13.0 - 17.0 g/dL 10.2 Low 9.6 Low 9.7 Low 9.5 Low 10.3 Low 10.7 Low Hematocrit 39.0 - 50.0 % 30.2 Low 29.0 Low 28.2 Low 28.6 (more content not included)...[facility]06-30-2023 NoteContinue lipitor and lipid profile was well controlled on labs 2021[facility]06-30-2023 NoteCoronary artery disease is stable without concerning symptoms Continue GDMT- ASA, toprol and lipitor continue risk factor modifications- heart healthy diet, regular exercise as tolerated and continue all medications.[facility] 12-20-2022 NoteCoronary artery disease is stable without concerning symptoms [facility]06-30-2023 NotestableUnSumma Health06-23-2023 [facility] Discharge instructions Patient Education 12/04/2022 09:25:30 Benign Prostatic Hyperplasia Benign Prostatic Hyperplasia Benign prostatic hyperplasia (BPH) is an enlarged prostate gland that is caused by the normal agingprocess. The prostate may get bigger as a man gets older. The condition is not caused by cancer. The prostate is a walnut-sized gland that is involved in the production of semen. It is located in front of the rectum and below the bladder. The bladder stores urine. The urethra carries stored urine ou t of the body. An enlarged prostate can press on the urethra. This can make it harder to pass urine. The buildup of urine in the bladder can cause infection. Back pressure and infection may progress to bladder damage and kidney (renal) failure. What are the causes? This condition is part of the normal aging process. However, not all men develop problems from thiscondition. If the prostate enlarges away from the urethra, urine flow will not be blocked. If it enlarges toward the urethra and compresses it, there will be problems passing urine. What increases the risk? This condition is more likely to develop in men older than 50 years. What are the signs or symptoms? Symptoms of this condition include: Getting up often during the night to urinate. Needing to urinate frequently during the day. Difficulty starting urine flow. Decrease in size and strength of your urine stream. Leaking (dribbling) after urinating. Inability to pass urine. This needs immediate treatment. Inability to completely empty your bladder. Pain when you pass urine. This is more common if there is also an infection. Urinary tract infection (UTI). How is this diagnosed? This condition is diagnosed based on your medical history, a physical exam, and your symptoms. Tests will also be done, such as: A post-void bladder scan. This measures any amount of urine that may remain in your bladder after you finish urinating. A digital rectal exam. In a rectal exam, your health care provider checks your prostate by putting a lubricated, gloved finger into your rectum to feel the back of your prostate gland. This exam detects the size of your gland and any abnormal lumps or growths. An exam of your urine (urinalysis). A prostate specific antigen (PSA) screening. This is a blood test used to screen for prostate cancer. An ultrasound. This test uses sound waves to electronically produce a picture of your prostate gland. Your health care provider may refer you to a specialist in kidney and prostate diseases (urologist). How is this treated? Once symptoms begin, your health care provider will monitor your condition (active surveillance or watchful waiting). Treatment for this condition will depend on the severity of your condition. Treatment may include: Observation and yearly exams. This may be the only treatment needed if your condition and symptoms are mild. Medicines to relieve your symptoms, including: ?Medicines to shrink the prostate. ?Medicines to relax the muscle of the prostate. Surgery in severe cases. Surgery may include: ?Prostatectomy. In this procedure, the prostate tissue is removed completely through an open incision or with a laparoscope or robotics. ?Transurethral resection of the prostate (TURP). In this procedure, a tool is inserted through the opening at the tip of the penis (urethra). It is used to cut away tissue of the inner core of the prostate. The pieces are removed through the same opening of the penis. This removes the blockage. ?Transurethral incision (TUIP). In this procedure, small cuts are made in the prostate. This lessens the prostate's pressure on the urethra. ?Transurethral microwave thermotherapy (TUMT). This procedure uses microwaves to create heat. The heat destroys and removes a small amount of prostate tissue. ?Transurethral needle ablation (TUNA). This procedure uses radio frequencies to destroy and remove a small amount of prostate tissue. ?Interstitial laser coagulation (ILC). This procedure uses a laser to destroy and remove a small amount of prostate tissue. ?Transurethral electrovaporization (TUVP). This procedure uses electrodes to destroy and remove a small amount of prostate tissue. ?Prostatic urethral lift. This procedure inserts an implant to push the lobes of the prostate away from the urethra. Follow these instructions at home: Take [id number] and prescription medicines only as told by your health care provider. Monitor your symptoms for any changes. Contact your health care provider with any changes. Avoid drinking large amounts of liquid before going to bed or out in public. Avoid or reduce how much caffeine or alcohol you drink. Give yourself time when you urinate. Keep all follow-up visits. This is important. Contact a health care provider if: You have unexplained back pain. Your symptoms do not get better with treatment. You develop side effects from the medicine you are taking. Your urine becomes very dark or has a bad smell. Your lower abdomen becomes distended and you have trouble passing urine. Get help right away if: You have a fever or chills. You suddenly cannot urinate. You feel light-headed or very dizzy, or you faint. There are large amounts of blood or clots in your urine. Your urinary problems become hard to manage. You develop moderate to severe low back or flank pain. The flank is the side of your body between the ribs and the hip. These symptoms may be an emergency. Get help right away. Call 911. Do not wait to see if the symptoms will go away. Do not drive yourself to the hospital. Summary Benign prostatic hyperplasia (BPH) is an enlarged prostate that is caused by the normal aging process. It is not caused by cancer. An enlarged prostate can press on the urethra. This can make it hard to pass urine. This condition is more likely to develop in men older than 50 years. Get help right away if you suddenly cannot urinate. This information is not intended to replace advice given to you by your health care provider. Make sure you discuss any questions you have with your health care provider. Document Revised: 12/26/2021 Document Reviewed: 12/26/2021 [employer] Patient Education 2022 [email or web address]. Follow Up Care 06/05/2022 11:04:10 With:Tomy DUNN, RODERICK Cao, URO Address: When: Unknown [facility] [place] 04-04-2023 NoteHNO ID: [id number] Author: Ema Doyle MD Service: ? Author Type: Physician Type: Progress Notes Filed: 10/01/2022 10:49 AM Note Text: Radiation Oncology - Follow Up Note PATIENT NAME: Ignacio Amin PATIENT DIAGNOSIS: Prostate cancer, with prior brachytherapy for delivered in August of 2006 INTERVAL HISTORY: Overall doing well. 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 Denies any bowel or bladder related issues. PSA HISTORY: 09/13/20: <0.05 ng/ml PSA. (no units) Date Value PSA. (no units) Date Value 09/18/2022 <0.13 09/19/2021 <0.05 09/15/2018 <0.13 10/02/2017 <0.06 10/02/2017 <0.06 09/25/2016 <0.06 09/27/2015 <0.06 09/28/14 <0.06 ng/ml ALLERGIES: ALLERGIES Allergen Reactions Influenza Virus Vac* Intolerance MEDICATIONS: furosemide (LASIX) 20 mg tablet Take 10 mg by mouth once daily. potassium chloride SR (MICRO-K) 10 mEq CR capsule Take 10 mEq by mouth twice daily. apixaban (ELIQUIS) 5 mg tab(s) Take by mouth twice daily. diphenoxylate-atropine (LOMOTIL) 2.5-0.025 mg per tablet Take 1 tablet by mouth four times daily as needed. melatonin 10 mg tab Take by mouth daily at bedtime. acetaminophen (TYLENOL) 325 mg tablet Take 650 mg by mouth every 6 hours as needed. tamsulosin (FLOMAX) 0.4 mg Take 0.4 mg by mouth once daily. MYRBETRIQ 25 mg Tb24 Take 25 mg by mouth once daily. MULTIVITAMIN ORAL Take by mouth. VIT C/VIT E/LUTEIN/MIN/OMEGA-3 (OCUVITE ORAL) Take by mouth. metoprolol succinate ER (TOPROL XL) 50 mg 24 hr tablet Take 50 mg by mouth once daily. atorvastatin (LIPITOR) 80 mg tablet Take 80 mg by mouth once daily. aspirin, enteric coated (ASPIRIN, ENTERIC COATED) 81 mg EC tablet Take 81 mg by mouth once daily. PERTINENT REVIEW OF SYSTEMS: Hematuria: none Dysuria: none Incontinence: none Urgency: none Catheter use: none AUA = 3 Medications to aid urination: no Bowel movement frequency: 1-3/day Bowel movement quality: normal Blood per rectum: none PHYSICAL EXAM: BP 129/79 Pulse 60 Temp 36.2 ?C (97.1 ?F) Resp 18 Wt 86 kg (189 lb 9.6 oz) SpO2 100% KPS:100 General appearance: Alert and oriented. No acute distress. Rectal exam def Extremities: No deformities, edema, skin discoloration, clubbing or cyanosis. Lymph Nodes: No cervical lymphadenopathy, No supraclavicular lymphadenopathy, No axillary lymphadenopathy. Skin: Skin color, texture, turgor normal, no suspicious rashes or lesions. ASSESSMENT/PLAN: Prostate cancer, stage II with prior I-125 brachytherapy August 2006. Patient doing well with undetectable PSA. No evidence of recurrence or late radiation problems. He continues close follow-up with urology. Plan to see patient back on an as-needed basis recommend continued yearly PSA. Signed by: Ema Doyle MD Portions of the above note extracted and edited from previous visit as well as active information included in the EMR.[facility] 09-24-2022 History of Present illness Narrative* Ema Doyle MD - 09/24/2022 1:07 PM EDT Images from the original note were not included. Radiation Oncology - Follow Up Note PATIENT NAME: Ignacio Amin PATIENT DIAGNOSIS: Prostate cancer, with prior brachytherapy for delivered in August of 2006 INTERVAL HISTORY: Overall doing well. He did undergo three-vessel CABG last January and has had goodrecovery. Denies any bowel or bladder related issues. PSA HISTORY: 09/13/20: <0.05 ng/ml PSA. (no units) Date Value PSA. (no units) Date Value 09/18/2022 <0.13 09/19/2021 <0.05 09/15/2018 <0.13 10/02/2017 <0.06 10/02/2017 <0.06 09/25/2016 <0.06 09/27/2015 <0.06 09/28/14 <0.06 ng/ml ALLERGIES: ALLERGIES Allergen Reactions Influenza Virus Vac* Intolerance MEDICATIONS: furosemide (LASIX) 20 mg tablet Take 10 mg by mouth once daily. potassium chloride SR (MICRO-K) 10 mEq CR capsule Take 10 mEq by mouth twice daily. apixaban (ELIQUIS) 5 mg tab(s) Take by mouth twice daily. diphenoxylate-atropine (LOMOTIL) 2.5-0.025 mg per tablet Take 1 tablet by mouth four times daily asneeded. melatonin 10 mg tab Take by mouth daily at bedtime. acetaminophen (TYLENOL) 325 mg tablet Take 650 mg by mouth every 6 hours as needed. tamsulosin (FLOMAX) 0.4 mg Take 0.4 mg by mouth once daily. MYRBETRIQ 25 mg Tb24 Take 25 mg by mouth once daily. MULTIVITAMIN ORAL Take by mouth. VIT C/VIT E/LUTEIN/MIN/OMEGA-3 (OCUVITE ORAL) Take by mouth. metoprolol succinate ER (TOPROL XL) 50 mg 24 hr tablet Take 50 mg by mouth once daily. atorvastatin (LIPITOR) 80 mg tablet Take 80 mg by mouth once daily. aspirin, enteric coated (ASPIRIN, ENTERIC COATED) 81 mg EC tablet Take 81 mg by mouth once daily. PERTINENT REVIEW OF SYSTEMS: Hematuria: none Dysuria: none Incontinence: none Urgency: none Catheter use: none AUA = 3 Medications to aid urination: no Bowel movement frequency: 1-3/day Bowel movement quality: normal Blood per rectum: none PHYSICAL EXAM: BP 129/79 Pulse 60 Temp 36.2 C (97.1 F) Resp 18 Wt 86 kg (189 lb 9.6 oz) SpO2 100% KPS:100 General appearance: Alert and oriented. No acute distress. Rectal exam def Extremities: No deformities, edema, skin discoloration, clubbing or cyanosis. Lymph Nodes: No cervical lymphadenopathy, No supraclavicular lymphadenopathy, No axillary lymphadenopathy. Skin: Skin color, texture, turgor normal, no suspicious rashes or lesions. ASSESSMENT/PLAN: Prostate cancer, stage II with prior I-125 brachytherapy August 2006. Patient doing well with undetectable PSA. No evidence of recurrence or late radiation problems. He continues close follow-up with urology. Plan to see patient back on an as- needed basis recommendcontinued yearly PSA. Signed by: Ema Doyle MD Portions of the above note extracted and edited from previous visit as well as active information included in the EMR. [facility]* Nurys Saleem RN - 09/24/2022 1:06 PM EDT AUA 3 Nurys Saleem RN documented [facility]* Encounter Date Diagnosis Assessment Notes Treatment Notes Treatment Clinical Notes Sep, Screening for colon cancer (ICD-10 - Z12.11) Pt states he is due for screening. Sep, Chronic kidney disease, stage 3a (ICD-10 - N18.31) Reviewed his question about the dose of iron supplement with Dr. Jensen Sep, Functional diarrhea (ICD-10 - K59.1) Pt states it is completely resolved. He has stopped lomotil and is doing well. Noted occasional nausea and rare diarrhea on his recent trip. [facility] Other 03-06-2023 Evaluation note* Encounter Date Diagnosis Assessment Notes Treatment Notes Treatment Clinical Notes Aug, Diarrhea, unspecified type (ICD-10 - R19.7) [facility] Other 02-27-2023 Evaluation note* Encounter Date Diagnosis Assessment Notes Treatment Notes Treatment Clinical Notes Jul, Diarrhea, unspecified type (ICD-10 - R19.7) No known sick contacts. Traveling on a cruise soon. Agrees to try rx med, call if no improvement. Discussed potential stool culture or GI referral. [facility] Other 02-21-2023 Evaluation note* Encounter Date Diagnosis Assessment Notes Treatment Notes Treatment Clinical Notes Jul, Acute kidney injury (ICD-10 - N17.9) Patient likely had acute kidney injury from ATN associated with CABG. Serum creatinine peaked at 2.1 mg/dL. Kidney function recovered without needing hemodialysis Jul, Chronic kidney disease, stage 3a (ICD-10 - N18.31) CKD is likely from renovascular disease as the patient has history of coronary disease and hypertension. Serum creatinine 1.25 mg deciliter. No UA available. Blood pressure and volume status is well controlled. I will continue same dose of Lasix. Advised the patient to avoid NSAIDs and to keep himself well-hydrated. I will follow-up with the patient in 6 months Jul, Anemia, unspecified type (ICD-10 - D64.9) Hemoglobin 11.8 g/dL. I asked the patient to take pawh-zxy-adioqry iron supplement once daily. I will check vitamin B12, folate and iron storage study next visit. No need for ROBERTH Jul, History of prostate cancer (ICD-10 - Z85.46) Follows with neurology clinic. Patient reported episode of hematuria last week. I asked patient to contact his urologist as soon as possible Jul, Hx of CABG (ICD-10 - Z95.1) Patient has history of coronary disease status post CABG in 2021. Follows with Dr. Andrews in cardiology clinic. Currently on metoprolol. Blood pressures well controlled [facility] Other 12-14-2022 Hospital Discharge instructions Patient Education 06/05/2022 11:04:48 Benign Prostatic Hyperplasia Benign Prostatic Hyperplasia Benign prostatic hyperplasia (BPH) is an enlarged prostate gland that is caused by the normal agingprocess and not by cancer. The prostate is a walnut-sized gland that is involved in the production of semen. It is located in front of the rectum and below the bladder. The bladder stores urine and the urethra is the tube that carries the urine out of the body. The prostate may get bigger as a man gets older. An enlarged prostate can press on the urethra. This can make it harder to pass urine. The build-up of urine in the bladder can cause infection. Back pressure and infection may progress to bladder damage and kidney (renal) failure. What are the causes? This condition is part of a normal aging process. However, not all men develop problems from this condition. If the prostate enlarges away from the urethra, urine flow will not be blocked. If it enlarges toward the urethra and compresses it, there will be problems passing urine. What increases the risk? This condition is more likely to develop in men over the age of 50 years. What are the signs or symptoms? Symptoms of this condition include: Getting up often during the night to urinate. Needing to urinate frequently during the day. Difficulty starting urine flow. Decrease in size and strength of your urine stream. Leaking (dribbling) after urinating. Inability to pass urine. This needs immediate treatment. Inability to completely empty your bladder. Pain when you pass urine. This is more common if there is also an infection. Urinary tract infection (UTI). How is this diagnosed? This condition is diagnosed based on your medical history, a physical exam, and your symptoms. Tests will also be done, such as: A post-void bladder scan. This measures any amount of urine that may remain in your bladder after you finish urinating. A digital rectal exam. In a rectal exam, your health care provider checks your prostate by putting a lubricated, gloved finger into your rectum to feel the back of your prostate gland. This exam detects the size of your gland and any abnormal lumps or growths. An exam of your urine (urinalysis). A prostate specific antigen (PSA) screening. This is a blood test used to screen for prostate cancer. An ultrasound. This test uses sound waves to electronically produce a picture of your prostate gland. Your health care provider may refer you to a specialist in kidney and prostate diseases (urologist). How is this treated? Once symptoms begin, your health care provider will monitor your condition (active surveillance or watchful waiting). Treatment for this condition will depend on the severity of your condition. Treatment may include: Observation and yearly exams. This may be the only treatment needed if your condition and symptoms are mild. Medicines to relieve your symptoms, including: ?Medicines to shrink the prostate. ?Medicines to relax the muscle of the prostate. Surgery in severe cases. Surgery may include: ?Prostatectomy. In this procedure, the prostate tissue is removed completely through an open incision or with a laparoscope or robotics. ?Transurethral resection of the prostate (TURP). In this procedure, a tool is inserted through the opening at the tip of the penis (urethra). It is used to cut away tissue of the inner core of the prostate. The pieces are removed through the same opening of the penis. This removes the blockage. ?Transurethral incision (TUIP). In this procedure, small cuts are made in the prostate. This lessens the prostate's pressure on the urethra. ?Transurethral microwave thermotherapy (TUMT). This procedure uses microwaves to create heat. The heat destroys and removes a small amount of prostate tissue. ?Transurethral needle ablation (TUNA). This procedure uses radio frequencies to destroy and remove a small amount of prostate tissue. ?Interstitial laser coagulation (ILC). This procedure uses a laser to destroy and remove a small amount of prostate tissue. ?Transurethral electrovaporization (TUVP). This procedure uses electrodes to destroy and remove a small amount of prostate tissue. ?Prostatic urethral lift. This procedure inserts an implant to push the lobes of the prostate away from the urethra. Follow these instructions at home: Take aldw-zrp-kzbnnyn and prescription medicines only as told by your health care provider. Monitor your symptoms for any changes. Contact your health care provider with any changes. Avoid drinking large amounts of liquid before going to bed or out in public. Avoid or reduce how much caffeine or alcohol you drink. Give yourself time when you urinate. Keep all follow-up visits as told by your health care provider. This is important. Contact a health care provider if: You have unexplained back pain. Your symptoms do not get better with treatment. You develop side effects from the medicine you are taking. Your urine becomes very dark or has a bad smell. Your lower abdomen becomes distended and you have trouble passing your urine. Get help right away if: You have a fever or chills. You suddenly cannot urinate. You feel lightheaded, or very dizzy, or you faint. There are large amounts of blood or clots in the urine. Your urinary problems become hard to manage. You develop moderate to severe low back or flank pain. The flank is the side of your body between the ribs and the hip. These symptoms may represent a serious problem that is an emergency. Do not wait to see if the symptoms will go away. Get medical help right away. Call your local emergency services (911 in the [place] Do not drive yourself to the hospital. Summary Benign prostatic hyperplasia (BPH) is an enlarged prostate that is caused by the normal aging process and not by cancer. An enlarged prostate can press on the urethra. This can make it hard to pass urine. This condition is part of a normal aging process and is more likely to develop in men over the age of 50 years. Get help right away if you suddenly cannot urinate. This information is not intended to replace advice given to you by your health care provider. Make sure you discuss any questions you have with your health care provider. Document Released: 06/09/2006 Document Revised: 05/04/2019 Document Reviewed: 07/14/2017 [employer] Patient Education 2020 [email or web address]. 06/05/2022 10:50:10 Benign Prostatic Hyperplasia Benign Prostatic Hyperplasia Benign prostatic hyperplasia (BPH) is an enlarged prostate gland that is caused by the normal agingprocess and not by cancer. The prostate is a walnut-sized gland that is involved in the production of semen. It is located in front of the rectum and below the bladder. The bladder stores urine and the urethra is the tube that carries the urine out of the body. The prostate may get bigger as a man gets older. An enlarged prostate can press on the urethra. This can make it harder to pass urine. The build-up of urine in the bladder can cause infection. Back pressure and infection may progress to bladder damage and kidney (renal) failure. What are the causes? This condition is part of a normal aging process. However, not all men develop problems from this condition. If the prostate enlarges away from the urethra, urine flow will not be blocked. If it enlarges toward the urethra and compresses it, there will be problems passing urine. What increases the risk? This condition is more likely to develop in men over the age of 50 years. What are the signs or symptoms? Symptoms of this condition include: Getting up often during the night to urinate. Needing to urinate frequently during the day. Difficulty starting urine flow. Decrease in size and strength of your urine stream. Leaking (dribbling) after urinating. Inability to pass urine. This needs immediate treatment. Inability to completely empty your bladder. Pain when you pass urine. This is more common if there is also an infection. Urinary tract infection (UTI). How is this diagnosed? This condition is diagnosed based on your medical history, a physical exam, and your symptoms. Tests will also be done, such as: A post-void bladder scan. This measures any amount of urine that may remain in your bladder after you finish urinating. A digital rectal exam. In a rectal exam, your health care provider checks your prostate by putting a lubricated, gloved finger into your rectum to feel the back of your prostate gland. This exam detects the size of your gland and any abnormal lumps or growths. An exam of your urine (urinalysis). A prostate specific antigen (PSA) screening. This is a blood test used to screen for prostate cancer. An ultrasound. This test uses sound waves to electronically produce a picture of your prostate gland. Your health care provider may refer you to a specialist in kidney and prostate diseases (urologist). How is this treated? Once symptoms begin, your health care provider will monitor your condition (active surveillance or watchful waiting). Treatment for this condition will depend on the severity of your condition. Treatment may include: Observation and yearly exams. This may be the only treatment needed if your condition and symptoms are mild. Medicines to relieve your symptoms, including: ?Medicines to shrink the prostate. ?Medicines to relax the muscle of the prostate. Surgery in severe cases. Surgery may include: ?Prostatectomy. In this procedure, the prostate tissue is removed completely through an open incision or with a laparoscope or robotics. ?Transurethral resection of the prostate (TURP). In this procedure, a tool is inserted through the opening at the tip of the penis (urethra). It is used to cut away tissue of the inner core of the prostate. The pieces are removed through the same opening of the penis. This removes the blockage. ?Transurethral incision (TUIP). In this procedure, small cuts are made in the prostate. This lessens the prostate's pressure on the urethra. ?Transurethral microwave thermotherapy (TUMT). This procedure uses microwaves to create heat. The heat destroys and removes a small amount of prostate tissue. ?Transurethral needle ablation (TUNA). This procedure uses radio frequencies to destroy and remove a small amount of prostate tissue. ?Interstitial laser coagulation (ILC). This procedure uses a laser to destroy and remove a small amount of prostate tissue. ?Transurethral electrovaporization (TUVP). This procedure uses electrodes to destroy and remove a small amount of prostate tissue. ?Prostatic urethral lift. This procedure inserts an implant to push the lobes of the prostate away from the urethra. Follow these instructions at home: Take qlay-bsq-qcwmzbm and prescription medicines only as told by your health care provider. Monitor your symptoms for any changes. Contact your health care provider with any changes. Avoid drinking large amounts of liquid before going to bed or out in public. Avoid or reduce how much caffeine or alcohol you drink. Give yourself time when you urinate. Keep all follow-up visits as told by your health care provider. This is important. Contact a health care provider if: You have unexplained back pain. Your symptoms do not get better with treatment. You develop side effects from the medicine you are taking. Your urine becomes very dark or has a bad smell. Your lower abdomen becomes distended and you have trouble passing your urine. Get help right away if: You have a fever or chills. You suddenly cannot urinate. You feel lightheaded, or very dizzy, or you faint. There are large amounts of blood or clots in the urine. Your urinary problems become hard to manage. You develop moderate to severe low back or flank pain. The flank is the side of your body between the ribs and the hip. These symptoms may represent a serious problem that is an emergency. Do not wait to see if the symptoms will go away. Get medical help right away. Call your local emergency services (911 in the [place] Do not drive yourself to the hospital. Summary Benign prostatic hyperplasia (BPH) is an enlarged prostate that is caused by the normal aging process and not by cancer. An enlarged prostate can press on the urethra. This can make it hard to pass urine. This condition is part of a normal aging process and is more likely to develop in men over the age of 50 years. Get help right away if you suddenly cannot urinate. This information is not intended to replace advice given to you by your health care provider. Make sure you discuss any questions you have with your health care provider. Document Released: 06/09/2006 Document Revised: 05/04/2019 Document Reviewed: 07/14/2017 [employer] Patient Education 2020 [email or web address]. Follow Up Care 12/03/2021 14:03:57 With:Tomy DUNN, RODERICK Cao, URO Address: When:6 months Comments:no labs [facility] Chief Complaint: Patient here for 3 week follow up because he wanted to see Dr. Saeed s/p CABG in Jan 2022. Had labs and CXR last week. Denies chest pain. Still gets slightly SOB if he gets up too quickly. He is able to go to cardiac rehab 2-3 days a week and does ok. HPI: Ignacio Amin is a 76 y.o. male patient being seen in follow-up for multivessel disease s/p 3vCABG on , postoperative Afib s/p FARHEEN DCCV on 02/27/22, now on Amio, HCM, NSVT s/p PPM. He has been doing quite well since the bypass surgery, no chest pain, or palpitations. He has some CALDERÓN, has not recovered as quickly as he expected, still participating in cardiac rehab without difficulty. Commended on smoking cessation. Device interrogation showed AF lasting 16.5 hrs back in February. Doing well overall; has some shortness of breath and lightheadedness when standing from a sitting position. Denies chest pain. No orthopnea, no paroxysmal tunnel dyspnea, no lower extremity edema. No unintentional weight gain, no abdominal distention or bloating. Denies significant palpitations, no lightheadedness, dizziness or syncope. Cardiology ROS: Review of Systems Cardiovascular: Positive for dyspnea on exertion. Musculoskeletal: Positive for joint pain. All other systems reviewed and are negative. Past Medical History He has a past medical history of Atrial fibrillation (CMS/HCC), Cardiomyopathy (CMS/HCC), Cardiomyopathy due to hypertension, without heart failure (CMS/HCC), Coronary arteriosclerosis, Dyspnea on exertion, HTN (hypertension), Hyperlipidemia, and Ischemic heart disease. Surgical History He has a past surgical history that includes CT chest angiogram w and/or wo IV contrast (02/20/2022); Coronary artery bypass graft (02/20/2022); Cardiac pacemaker placement (04/25/2016); Cardiac catheterization; Cataract extraction; Colon surgery; Prostate surgery; and Cardiac pacemaker placement (04/25/2016). Social History He reports that he has been smoking cigarettes. He has been smoking an average of 1 pack per day. He has never used smokeless tobacco. He reports current alcohol use. He reports that he does not use drugs. Family History Family History Problem Relation Name Age of Onset Diabetes Mother Coronary artery disease Father Other (malignant tumor of colon) Sister Allergies Influenza virus vaccine tv split 2010- (60 yr +) Medications (Not in a hospital admission) Last Recorded Vitals Patient Vitals for the past 24 hrs: BP Pulse SpO2 Height Weight 05/27/22 1414 116/72 59 98 % 1.753 m (5' 9 ) 80.7 kg (178 lb) Physical Examination: GENERAL: alert and oriented x3, well developed, in no acute distress. HEAD: atraumatic, normocephalic. EYES: OVI, EOMI. NECK: trachea midline, no JVD present, no carotid bruits present. CARDIAC: S1, S2 present. RRR. No murmur, rubs, or gallops. RESPIRATORY: CTAB, no increased effort of breathing, no rales, rhonchi, or wheezing. ABDOMEN: soft, nontender, nondistended. EXTREMITIES: no lower extremity edema, peripheral pulses are 2+ bilaterally. No rash/skin discoloration present. NEURO: strength/sensation equal and symmetric in bilateral upper and lower extremities. PSYCH: appropriate mood, affect, and judgement. Investigations: TTE: 01/17/2021 1. Severe concentric left ventricular hypertrophy with no evidence of outflow tract obstruction, LVEF 65-70% 2. Normal ventricular systolic function 3. Mildly dilated ascending aorta, measuring 3.8cm 3VCAB02/20/2022 LANGSTON to LAD, saphenous vein to the obtuse marginal branch of the circumflex and saphenous vein to the PDA of the right coronary artery, and the vascular vein harvesting of the left greater saphenous vein Limited TTE: 02/23/2022 Left Ventricle: The left ventricle is small in size. Global left ventricular systolic function is difficult to assess but appears preserved. Left ventricular wall thickness is severely increased. Concentric left ventricular hypertrophy. LVH is concerning for HOCM. Right Ventricle: The right ventricle is small in size. Right ventricular systolic function appears normal. Overall Conclusions: Due to suboptimal imaging Lumason contrast was administered for opacification and better delineation of endocardial borders. Recc Cardiac MRI to eval for HOCM. Assessment: Postoperative paroxysmal A-fib (CMS/HCC) Coronary artery disease involving [place] coronary artery of [place] heart without angina pectoris Cardiomyopathy, hypertrophic (CMS/HCC) Essential hypertension Dyslipidemia Hypertrophic Cardiomyopathy Plan: If 12-lead EKG shows sinus rhythm, will discontinue amiodarone Continue optimal medical therapy for coronary artery disease including aspirin, high intensity statin therapy, a beta-ash If no signs of bleeding, would prefer him to be on 5 mg p.o. twice daily of Eliquis given his [id number] score (more content not included)...[facility]11-08-2022 Evaluation note* Encounter Date Diagnosis Assessment Notes Treatment Notes Treatment Clinical Notes Apr, Acute kidney injury (ICD-10 - N17.9) Patient likely had acute kidney injury from ATN associated with CABG. Serum creatinine peaked at 2.1 mg/dL. Serum creatinine seems stable around 1.5-1.6 milligrams per deciliter which might be the new baseline creatinine. GFR in the most recent blood work 43 mm/min. since hospital discharge. Baseline creatinine will likely fluctuate as the patient on Lasix I will check UA along with protein to creatinine ratio next visit. Blood pressure seems well controlled. Volume status very well controlled. Advised the patient to continue monitoring blood pressure at home and to avoid all NSAIDs follow-up with the patient in 3 months. [employer] Other 10-07-2022 NoteMR#: [id number] I [facility] Pt. Name: Ignacio Amin Admitted: 02/15/2022 Discharged: 02/28/2022 Date of : 1945 Physician: Christiane Olson MD DISCHARGE SUMMARY DISCHARGE ATTENDING: Christiane Olson MD PRINCIPAL DIAGNOSES: Coronary artery disease with 85% distal left main lesion, 85% proximal left main left anterior descending lesion, 85% proximal circumflex lesion, 70% mid right coronary lesion, preserved left ventricular function, left ventricular hypertrophy. SECONDARY DIAGNOSES: 1. Hypertrophic cardiomyopathy. 2. artery disease. 3. Hypertension. 4. Hyperlipidemia. 5. History of prostate cancer. 6. Tobacco abuse. 7. Urinary retention. 8. Postoperative blood loss anemia. 9. Thrombocytopenia. 10. Nonsustained supraventricular tachycardia. 11. Postoperative atrial fibrillation. 12. Respiratory insufficiency. 13. Acute kidney injury. 14. Acute respiratory failure. HOSPITAL COURSE: A 76-year-old male with past medical history of known mild three-vessel coronary artery disease with a pain previously placed mid right coronary artery stent in 2006, current smoker, who follows with Dr. Saeed in the [facility]. Over the past few months, the patient was complaining of retrosternal chest burning on exertion with mild shortness of breath. Underwent stress test on 02/07/2022 that showed a small area of mildly reversible perfusion involving the mid and apical inferior lateral wall suggestive of acute ischemia. Underwent heart catheterization on 02/15/2022 and was found to have severe multivessel coronary artery disease with distal left main lesion of 80%. Due to the patient still experiencing chest pain, he was admitted to the hospital and placed on a heparin infusion. On 02/20/2022, was taken for coronary artery bypass grafting x3, with LANGSTON to the LAD, saphenous vein to the obtuse marginal branch of the circumflex, and saphenous vein to the PDA of the right coronary artery, and vascular vein harvesting of the left greater saphenous vein. The patient tolerated the procedure well with no acute events. Was taken from the OR to the MICU for postoperative recovery. Postoperatively required a platelet transfusion and was extubated on 02/20/[address] Surgery fast-track protocol. Postoperative day #1, the patient had prior AICD placed, gas settings were adjusted DDI with backup rate of 60, previously backup rate was 40. Echocardiogram performed at bedside to assess function. Discontinued Ehrhardt-Sundar catheter. Oxygen requirements were beginning to be weaned. Advancing of diet as tolerated. Multiple episodes of nonsustained SVT. Postoperative day #2, IV diuresis was started. Beta-ash was started. Chest tube placed on water-seal. Epicardial wires were clipped. Postoperative day #3, urine output remained marginal, started on Lasix infusion. Oxygen requirements increasing. BiPAP used intermittently. Episodes of atrial fibrillation with RVR, given an amiodarone bolus 150 mg and amiodarone drip was started. Bowel movement noted. Limited echo repeated to assess function. Postoperative day #4, nephrology team consulted for diuresis management. Chest tubes removed. Amiodarone drip stopped, remained in atrial fibrillation and heart rate controlled. Oxygen requirements decreased. Tolerated regular diet. Eliquis started. Colvin discontinued. Postoperative day #5 through #6, remained in atrial fibrillation. Postoperative day #7, underwent FARHEEN with successful cardioversion. Postoperative day #8, remained in normal sinus rhythm overnight. The patient was medically stable to discharge home. Pain was well controlled. Tolerating regular diet. Going to the bathroom on his own, required minimal assistance with ADLs. He was discharged on amiodarone 200 mg once daily and Eliquis 2.5 mg twice daily. Nephrology team started the patient on 40 mg p.o. Lasix daily, and followup was scheduled with our office. CONDITION AT DISCHARGE: Good. Stable. DISCHARGE DISPOSITION: [facility] at [place]. DISCHARGE MEDICATIONS: 1. Amiodarone 200 mg tablet daily. 2. Apixaban 2.5 mg tablet 2 times per day. 3. Aspirin 81 mg tablet daily. 4. Atorvastatin 80 mg tablet in the evening. 5. Centrum Silver tablet, 1 tablet oral daily. 6. Colace 200 mg oral capsule 2 times per day. 7. Furosemide 40 mg tablet daily. 8. ICaps 3300 unit/5 mg/200 mg/75 unit tablet, extended release tablet oral 2 times per day. 9. Metoprolol tartrate 37.5 mg oral every 12 hours. 10. Myrbetriq 25 mg tablet oral daily. 11. Pantoprazole 20 mg tablet oral daily. 12. Sennosides 17.2 mg oral tablet at bedtime. 13. Flomax 0.4 mg tablet oral daily. 14. Acetaminophen 650 mg tablet every 6 hours as needed for pain. 15. Oxycodone 5 mg tablet every 6 hours as needed for pain. DISCHARGE INSTRUCTIONS: Written and verbal instructions were provided regarding the ca (more content not included)...[facility]06-13-2022 Hospital Discharge instructions Patient Education 12/03/2021 13:54:59 Transurethral Resection of the Prostate Transurethral Resection of the Prostate Transurethral resection of the prostate (TURP) is the removal (resection) of part of the gland thatproduces semen (prostate gland). This procedure is done to treat benign prostatic hyperplasia (BPH). BPH is an abnormal, noncancerous (benign) increase in the number of cells that make up the prostate tissue. BPH causes the prostate to get bigger. The enlarged prostate can push against or block thetube that drains urine from the bladder out of the body (urethra). BPH can affect normal urine flowby causing bladder infections, difficulty controlling bladder function, and difficulty emptying thebladder. The goal of TURP is to remove enough prostate tissue to allow for a normal flow of urine. The procedure will allow you to empty your bladder more completely when you urinate so that you can urinate less often. In a transurethral resection, a thin telescope with a light, a tiny camera, and an electric cuttingedge (resectoscope) is passed through the urethra and into the prostate. The opening of the urethrais at the end of the penis. Tell a health care provider about: Any allergies you have. All medicines you are taking, including vitamins, herbs, eye drops, creams, and jwek-aou-lyroara medicines. Any problems you or family members have had with anesthetic medicines. Any blood disorders you have. Any surgeries you have had. Any medical conditions you have. Any prostate infections you have had. What are the risks? Generally, this is a safe procedure. However, problems may occur, including: Infection. Bleeding. Allergic reactions to medicines. Damage to other structures or organs, such as: ?The urethra. ?The bladder. ?Muscles that surround the prostate. Difficulty getting an erection. Inability to control when you urinate (incontinence). Scarring, which may cause problems with urine flow. What happens before the procedure? Medicines Ask your health care provider about: Changing or stopping your regular medicines. This is especially important if you are taking diabetes medicines or blood thinners. Taking medicines such as aspirin and ibuprofen. These medicines can thin your blood. Do not take these medicines unless your health care provider tells you to take them. Taking dqnp-xbb-jqjbolq medicines, vitamins, herbs, and supplements. Eating and drinking Follow instructions from your health care provider about eating and drinking, which may include: 8 hours before the procedure stop eating heavy meals or foods, such as meat, fried foods, or fatty foods. 6 hours before the procedure stop eating light meals or foods, such as toast or cereal. 6 hours before the procedure stop drinking milk or drinks that contain milk. 2 hours before the procedure stop drinking clear liquids. Staying hydrated Follow instructions from your health care provider about hydration, which may include: Up to 2 hours before the procedure you may continue to drink clear liquids, such as water, clear fruit juice, black coffee, and plain tea. General instructions You may have a physical exam. You may have a blood or urine sample taken. Ask your health care provider what steps will be taken to help prevent infection. These may include: ?Washing skin with a germ-killing soap. ?Taking antibiotic medicine. Plan to have someone take you home from the hospital or clinic. You may not be able to drive for upto 10 days after your procedure. Plan to have a responsible adult care for you for at least 24 hours after you leave the hospital orclinic. This is important. What happens during the procedure? An IV will be inserted into one of your veins. You will be given one or more of the following: ?A medicine to help you relax (sedative). ?A medicine to make you fall asleep (general anesthetic). ?A medicine that is injected into your spine to numb the area below and slightly above the injection site (spinal anesthetic). Your legs will be placed in foot rests (stirrups) so that your legs are apart and your knees are bent. The resectoscope will be passed through your urethra to your prostate. Parts of your prostate will be resected using the cutting edge of the resectoscope. The resectoscope will be removed. A small, thin tube (catheter) will be passed through your urethra and into your bladder. The catheter will drain urine into a bag outside of your body. ?Fluid may be passed through the catheter to keep the catheter open. The procedure may vary among health care providers and hospitals. What happens after the procedure? Your blood pressure, heart rate, breathing rate, and blood oxygen level will be monitored until youleave the hospital or clinic. You may continue to receive fluids and medicines through an IV. You may have some pain. Pain medicine will be available to help you. You will have a catheter draining your urine. ?You may have blood in your urine. Your catheter may be kept in until your urine is clear. ?Your urinary drainage will be monitored. If necessary, your bladder may be rinsed out (irrigated) through your catheter. You will be encouraged to walk around as soon as possible. You may have to wear compression stockings. These stockings help prevent blood clots and reduce swelling in your legs. Do not drive for 24 hours if you were given a sedative during your procedure. Summary Transurethral resection of the prostate (TURP) is the removal (resection) of part of the gland thatproduces semen (prostate gland). The goal of this procedure is to remove enough prostate tissue to allow for a normal flow of urine. Follow instructions from your health care provider about taking medicines and about eating and drinking before the procedure. This information is not intended to replace advice given to you by your health care provider. Make sure you discuss any questions you have with your health care provider. Document Released: 06/09/2006 Document Revised: 09/29/2019 Document Reviewed: 03/10/2019 [employer] Patient Education 2020 [email or web address]. Follow Up Care 10/01/2021 09:30:13 With:Tomy DUNN, Patience Salinas, URL, URO Address: [address] [place] [phone] When:Within 6 Month(s) Comments:with IPSS [facility] 04-11-2022 Hospital Discharge instructions Patient Education 10/01/2021 09:29:58 EU - Cystoscopy Discharge Instructions (CUSTOM) Cystoscopy Voiding after the procedure: there may be some pain, burning, urgency, frequency and blood tinged urine following the procedure. These symptoms usually resolve within 2-5 days. Drink the amount of fluid it takes to keep the urine pink to yellow or clear in color. Drinking enough water and fluids will help to ease any discomfort after your procedure. If you are having problems that seem out of the ordinary, please call. If unable to contact your physician and you feel it is an emergency, go to the nearest emergency room or call 911 Diet you may resume your normal diet. Activity you may resume your normal activities Call if you have a fever over 100 degrees. Follow Up Care 09/19/2021 10:38:31 With:Patience Huitron Address: [address], [address] [phone] Business (1) When: Unknown Comments:Call for followup appointment in 2-3 months With:Patience Huitron Address:Unknown When: Unknown [facility]04-05-2022 History of Present illness Narrative* G Abhijeet Doyle MD - 09/25/2021 1:13 PM EDT Images from the original note were not included. Radiation Oncology - Follow Up Note PATIENT NAME: Ignacio Amin PATIENT DIAGNOSIS: Prostate cancer, with prior brachytherapy for delivered in August of 2006 INTERVAL HISTORY: Doing well. Has had some issues with obstructive symptoms, doing better on being put back on Flomax and Myrbetriq per Dr. Huitron. PSA HISTORY: 09/13/20: <0.05 ng/ml PSA. (no units) Date Value PSA. (no units) Date Value 09/19/2021 <0.05 09/15/2018 <0.13 10/02/2017 <0.06 09/27/2015 <0.06 10/02/2017 <0.06 09/25/2016 <0.06 09/27/2015 <0.06 09/28/14 <0.06 ng/ml ALLERGIES: ALLERGIES Allergen Reactions Influenza Virus Vac* Intolerance MEDICATIONS: tamsulosin (FLOMAX) 0.4 mg Take 0.4 mg by mouth once daily. MYRBETRIQ 25 mg Tb24 Take 25 mg by mouth once daily. MULTIVITAMIN ORAL Take by mouth. VIT C/VIT E/LUTEIN/MIN/OMEGA-3 (OCUVITE ORAL) Take by mouth. metoprolol succinate ER (TOPROL XL) 50 mg 24 hr tablet Take 50 mg by mouth once daily. atorvastatin (LIPITOR) 80 mg tablet Take 80 mg by mouth once daily. aspirin, enteric coated (ASPIRIN, ENTERIC COATED) 81 mg EC tablet Take 81 mg by mouth once daily. PERTINENT REVIEW OF SYSTEMS: Hematuria: none Dysuria: none Incontinence: none Urgency: none Catheter use: none AUA = 12 Medications to aid urination: no Bowel movement frequency: 1-3/day Bowel movement quality: normal Blood per rectum: none PHYSICAL EXAM: BP 133/70 Pulse 62 Temp (!) 35.8 C (96.4 F) Resp 16 Wt 87.5 kg (193 lb) SpO2 98% KPS:100 General appearance: Alert and oriented. No acute distress. Abdomen: Normal abdominal exam, Abdomen soft, non-tender. No masses, organomegaly. Rectal exam def Extremities: No deformities, edema, skin discoloration, clubbing or cyanosis. Lymph Nodes: No cervical lymphadenopathy, No supraclavicular lymphadenopathy, No axillary lymphadenopathy. Skin: Skin color, texture, turgor normal, no suspicious rashes or lesions. ASSESSMENT/PLAN: Prostate cancer, stage II with prior I-125 brachytherapy August 2006. Patient doing well with undetectable PSA. No evidence of recurrence or late radiation problems. He continues close follow-up with urology.. Signed by: Ema Doyle MD Portions of the above note extracted and edited from previous visit as well as active information included in the EMR. [facility]* Nurys Saleem RN - 09/25/2021 1:10 PM EDT AUA 12 Nurys Saleem RN documented [facility] Discharge instructions Patient Education 09/19/2021 10:07:32 Prostate Cancer Prostate Cancer The prostate is a walnut-sized gland that is involved in the production of semen. It is located below a man's bladder, in front of the rectum. Prostate cancer is the abnormal growth of cells in the prostate gland. What are the causes? The exact cause of this condition is not known. What increases the risk? This condition is more likely to develop in men who: Are older than age 65. Are -[place]. Are obese. Have a family history of prostate cancer. Have a family history of breast cancer. What are the signs or symptoms? Symptoms of this condition include: A need to urinate often. Weak or interrupted flow of urine. Trouble starting or stopping urination. Inability to urinate. Pain or burning during urination. Painful ejaculation. Blood in urine or semen. Persistent pain or discomfort in the lower back, lower abdomen, hips, or upper thighs. Trouble getting an erection. Trouble emptying the bladder all the way. How is this diagnosed? This condition can be diagnosed with: A digital rectal exam. For this exam, a health care provider inserts a gloved finger into the rectum to feel the prostate gland. A blood test called a prostate-specific antigen (PSA) test. An imaging test called transrectal ultrasonography. A procedure in which a sample of tissue is taken from the prostate and examined under a microscope (prostate biopsy). Once the condition is diagnosed, tests will be done to determine how far the cancer has spread. This is called staging the cancer. Staging may involve imaging tests, such as: A bone scan. A CT scan. A PET scan. An MRI. The stages of prostate cancer are as follows: Stage I. At this stage, the cancer is found in the prostate only. The cancer is not visible on imaging tests and it is usually found by accident, such as during a prostate surgery. Stage II. At this stage, the cancer is more advanced than it is in stage I, but the cancer has not spread outside the prostate. Stage III. At this stage, the cancer has spread beyond the outer layer of the prostate to nearby tissues. The cancer may be found in the seminal vesicles, which are near the bladder and the prostate. Stage IV. At this stage, the cancer has spread other parts of the body, such as the lymph nodes, bones, bladder, rectum, liver, or lungs. How is this treated? Treatment for this condition depends on several factors, including the stage of the cancer, your age, personal preferences, and your overall health. Talk with your health care provider about treatment options that are recommended for you. Common treatments include: Observation for early stage prostate cancer (active surveillance). This involves having exams, blood tests, and in some cases, more biopsies. For some men, this is the only treatment needed. Surgery. Types of surgeries include: ?Open surgery. In this surgery, a larger incision is made to remove the prostate. ?A laparoscopic prostatectomy. This is a surgery to remove the prostate and lymph nodes through several, small incisions. It is often referred to as a minimally invasive surgery. ?A robotic prostatectomy. This is a surgery to remove the prostate and lymph nodes with the help ofa robotic arm that is controlled by a computer. ?Orchiectomy. This is a surgery to remove the testicles. ?Cryosurgery. This is a surgery to freeze and destroy cancer cells. Radiation treatment. Types of radiation treatment include: ?External beam radiation. This type aims beams of radiation from outside the body at the prostate to destroy cancerous cells. ?Brachytherapy. This type uses radioactive needles, seeds, wires, or tubes that are implanted into the prostate gland. Like external beam radiation, brachytherapy destroys cancerous cells. An advantage is that this type of radiation limits the damage to surrounding tissue and has fewer side effects. High-intensity, focused ultrasonography. This treatment destroys cancer cells by delivering high-energy ultrasound waves to the cancerous cells. Chemotherapy medicines. This treatment kills cancer cells or stops them from multiplying. Hormone treatment. This treatment involves taking medicines that act on one of the male hormones (testosterone): ?By stopping your body from producing testosterone. ?By blocking testosterone from reaching cancer cells. Follow these instructions at home: Take [id number] and prescription medicines only as told by your health care provider. Maintain a healthy diet. Get plenty of sleep. Consider joining a support group for men who have prostate cancer. Meeting with a support group mayhelp you learn to cope with the stress of having cancer. Keep all follow-up visits as told by your health care provider. This is important. If you have to go to the hospital, notify your cancer specialist (oncologist). Treatment for prostate cancer may affect sexual function. Continue to have intimate moments with your partner. This may include touching, holding, hugging, and caressing. Contact a health care provider if: You have trouble urinating. You have blood in your urine. You have pain in your hips, back, or chest. Get help right away if: You have weakness or numbness in your legs. You cannot control urination or your bowel movements (incontinence). You have trouble breathing. You have sudden chest pain. You have chills or a fever. Summary The prostate is a walnut-sized gland that is involved in the production of semen. It is located below a man's bladder, in front of the rectum. Prostate cancer is the abnormal growth of cells in the prostate gland. Treatment for this condition depends on several factors, including the stage of the cancer, your age, personal preferences, and your overall health. Talk with your health care provider about treatment options that are recommended for you. Consider joining a support group for men who have prostate cancer. Meeting with a support group mayhelp you learn to cope with the stress of having cancer. This information is not intended to replace advice given to you by your health care provider. Make sure you discuss any questions you have with your health care provider. Document Released: 06/09/2006 Document Revised: 05/22/2018 Document Reviewed: 02/17/2017 Elsevier Patient Education 2020 [employer] Follow Up Care 03/14/2021 14:47:29 With:Tomy DUNN, Patience Salinas, URL, URO Address: [place] [phone] Business (1) When: Unknown [facility] evaluation + Plan note Future Appointments Appointment Date:09/24/2021 09:15:00 AM Scheduled Provider: Location:[facility] Appointment Type:Urology CALL PAT FT Appointment Date:10/01/2021 09:30:00 AM Scheduled Provider: Location:[facility] Appointment Type:Urology FT [facility] evaluation + Plan note Future Appointments Appointment Date:09/24/2021 09:15:00 AM Scheduled Provider: Location:[facility] Appointment Type:Urology CALL PAT FT Appointment Date:10/01/2021 09:30:00 AM Scheduled Provider: Location:[facility] Appointment Type:Urology FT Diagnostic Tests Pending * [facility] Appointment Date:12/03/2021 01:00:00 PM Scheduled Provider:Patience Huitron MD Location:[facility] Future Appointments Appointment Date:06/05/2022 09:15:00 AM Scheduled Provider:Patience Huitron MD Location:[facility] Appointment Type:URO Office Visit [facility] Evaluation + Plan note Future Appointments Appointment Date:12/04/2022 09:15:00 AM Scheduled Provider:Patience Huitron MD Location:[facility] Appointment Type:URO Office Visit [facility] evaluation + Plan note Future Appointments Appointment Date:04/16/2023 09:45:00 AM Scheduled Provider:Patience Huitron MD Location:[facility] Future Appointments Appointment Date:07/23/2023 09:45:00 AM Scheduled Provider:Patience Huitron MD Location:[facility] Appointment Type:URO Office Visit [facility] evaluation note* Diagnosis History of prostate cancer- Primary Personal history of malignant neoplasm of prostate documented in this encounter [facility] noteNo InformationN[facility] [employer] Other Evaluation note* Diagnosis History of prostate cancer- Primary Personal history of malignant neoplasm of prostate documented in this encounter [facility] noteNo assessment information availableHenry [facility] Work Phone: History and physical note Author Yung Yang [facility] December 13, 2022 10:31am Note Date/Time December 13, 2022 10:3 1am [facility] [address] [place] [address] Gastroenterology H&P Signed Patient: Ignacio Amin MR#: [id number] : 1945 Acct:[id number] Age/Sex: 77 / M Adm Date: 3 Loc: Room: Type: [facility] Attending Dr: Yung Yang MD Copies to: MD Elliot Mary MD~ Date of Service: 12/13/2022 HISTORY & PHYSICAL: Patient's history with special attention to the cardiovascular, pulmonary systems and the current problem was reviewed with the patient immediately prior to the procedure. Present medications and doses reviewed in the EMR. Allergies and pertinent laboratory tests were also reviewedat this time in the EMR. The physical examination, as below, was then performed. Indication, assessment and HPI: 77-year-old man with history of colonic polyps and family history of colon cancer(sister) here for surveillance colonoscopy Family history of GI malignancy? Yes PHYSICAL EXAMINATION Mouth and Pharynx : Moist mucus membranes, normal dentition Cardiac: Regular rate, regular rhythm Pulmonary: Clear to auscultation bilaterally, no wheezing Neurological: Alert and oriented x3, no focal deficits noted Abdomen: Abdomen soft, non-tender REVIEW OF SYSTEMS Constitutional: Denies malaise, fevers Cardiovascular: Denies chest pain, palpitations Respiratory: Denies shortness of breath, wheezing Gastrointestinal: Per HPI Genitourinary: Denies dysuria, polyuria Musculoskeletal: Denies joint swelling, joint stiffness Neurological: Denies numbness, tingling Integumentary: Denies rashes, skin lesions Endocrine: Denies fatigue, weight loss Written informed consent obtained from the patient. Risks (including but not limited to perforation, infection, bloating, bleeding, need for emergent surgeryand loss of life), benefits and alternatives explained and questions answered. The patient verbalized understanding. Based on history patient is an appropriate candidate for the procedure. Yung Yang M.D. Documented By: Yung Yang MD 12/13/22 1030 Signed By: <Electronically signed by Yung Yang MD> 12/13/22 1031 [facility] Work Phone: Histscp general Narrative - Reported* Type Description Date Medical History IRON DEFICIENCY ANEMIA SECONDARY TO BLOOD LOSS Medical History UNSPECIFIED ATRIAL FIBRILLATION Medical History ACUTE KIDNEY FAILURE Medical History THROMBOCYTOPENIA Medical History HYPERLIPIDEMIA Medical History VITAMIN DEFICIENCY Medical History GERD Medical History NONSPECIFIC ABNORMAL FINDING OF LUNG FIELD Medical History RETENTION OF URINE Medical History NICOTINE ABUSE Medical History KIDNEY STONES Medical History PROSTATE CANCER Surgical History 1 HEART STENT 2006 Surgical History DefibRILLATOR placement Surgical History HEART CATH 03/2016 Surgical History TEETH Surgical History BILATERAL HAND SURGERY Surgical History EGD TUMOR REMOVAL 07/2010 Surgical History SEED IMPLANT IN PROSTATE Surgical History CARDIOVERSION 03/03/22 Hospitalization History SEE ABOVE [facility] Other [facility] general Narrative - Reported* Type Description Date Medical History IRON DEFICIENCY ANEMIA SECONDARY TO BLOOD LOSS Medical History UNSPECIFIED ATRIAL FIBRILLATION Medical History ACUTE KIDNEY FAILURE Medical History THROMBOCYTOPENIA Medical History HYPERLIPIDEMIA Medical History VITAMIN DEFICIENCY Medical History GERD Medical History NONSPECIFIC ABNORMAL FINDING OF LUNG FIELD Medical History RETENTION OF URINE Medical History NICOTINE ABUSE Medical History KIDNEY STONES Medical History PROSTATE CANCER Surgical History 1 HEART STENT 2006 Surgical History DefibRILLATOR placement Surgical History HEART CATH 03/2016 Surgical History TEETH Surgical History BILATERAL HAND SURGERY Surgical History EGD TUMOR REMOVAL 07/2010 Surgical History SEED IMPLANT IN PROSTATE Surgical History CARDIOVERSION 03/03/22 Surgical History Triple Bi pass surgery 01/2022 Hospitalization History SEE ABOVE [facility] Other Hospital course Narrative No data available for this section [facility] Discharge instructions No data available for this section [facility] Discharge instructions Additional Instructions DISCHARGE INSTRUCTIONS FOR COLONOSCOPY WHAT TO EXPECT: - You may feel full, gassy or cramping after your procedure. In some cases, this may be from a few hours to a day. Walking may help relieve the discomfort. - If you have polyp(s) removed you may note some minor bloody discharge after your first bowel movements. - You should begin to recover from anesthesia within 1 hour of the procedure, however may feel groggy for the next 24 hours. DO's AND DON'Ts: - Call your doctor right away if you have a hard abdomen, severe pain, are passing lots of bright red blood or clots. - Call your doctor if you develop any rashes, hives or difficulty breathing. - Let your doctor know if you have not had a bowel movement by 3 days after your procedure. - If you take 81 mg aspirin for your heart it is safe to resume this medication. - If you take other blood thinner medications your doctor will instruct you when these can safely be resumed. - Do NOT drive for 24 hours. - Do NOT operate machinery such as power tools, lawn mowers, snow blowers, sewing machines, etc. for 24 hours. - Avoid alcoholic beverages and drugs for allergies, nerves, or sleep. - Do NOT stay alone. Do NOT leave your child unattended. - Do NOT make important personal or business decisions or sign any legal documents. - Eat solid foods and drink liquids in smaller amounts than usual until normal appetite returns. If you should experience an upset stomach, liquids high in sugar content (soda, Jamil-Aid, non-acid juices) are recommended. - You can resume normal activities tomorrow. FOLLOW UP & RECOMMENDATIONS: -Notify the doctor if you have any problems. -Repeat colonoscopy in 6 months -Follow up with PCP. -Office number [phone]. [facility] Work Phone: Progress note No data available for this section [facility] Jeanette Summary Purpose Family History Relationship Condition Age at Onset Recorded Date/T kathy sister Malignant neoplasm of colon Unknown father Cardiovascular disease Unknown brother Myocardial infarction Unknown Advance Directives Advance Directive Response Recorded Date/ Time Advance Directives No December 11 10:12am Reason for Referral Reason *Waiting for appt Former Aroldo pt - due for screening Diagnosis 1 Screening for colon cancer (Z12.11) Referral Organization [facility] Referring Provider First Name Elliot Referring Provider Last Name Fran Referring Provider Specialty Family Medi cine Referred Organization [facility] Gastroenterolo gy Referred Provider Yung Yang Referred Address [address],[facility] [address], [place],[address] Referred Provider Specialty Gastroentero logy Referral Priority Routine General Notes Christine Moran 12:25:45 PM >received today, sent P2P Chief Complaint and Reason for Visit Chief Complaint Screening Additional Source Comments Source Comments (unrecognize d section and content) In the event this informatio n is protected by the Federal Confidentiality of Alcohol and Drug Abuse Patient Records regulations: The Federal rules restrict any use of the information to criminally investigate or prosecute any alcohol or drug abuse patient.[facility] the event this information is protected by the Federal Confidentiality of Alcohol and Drug Abuse Patient Records regulations: The Federal rules restrict any use of the information to criminally investigate or prosecute any alcohol or drug abuse patient.[facility] Reason for Visit (unrecogniz ed section and content) stich removal Reason Comments Prostate Cancer Care Teams (unrecognized sec tion and content) [employer] Relationship Specialty Start Date End Date Elliot Rosales MD [address] [place] [address] PCP - General Family Practice 10/02/16 [employer] Relationship Specialty Start Date End Date Elliot Rosales MD [address] [place] [address] PCP - General Family Medicine 10/02/16 Team Status: Active Member Role Status Dates Elliot Rosales MD Primary Care Provider Active Team Status: Inactive Member Role Status Dates Yung Yang MD Attending Provider Active Elliot Rosales MD Primary Care Provider Active (unrecognized sect ion and content) No Status Records FoundNo Status Records FoundNo Status Records FoundNo Status Records FoundNo Status Records FoundNo Status Records Found INFORMATION SOURCE (unrecogn ized section and content) DATE CREATED AUTHOR 04/01/2022 [facility] DATE CREATED AUTHOR AUTHOR'S ORGANIZ ATION 09/27/2022 [facility] DATE CREATED AUTHOR AUTHOR'S ORGANIZ ATION 10/05/2022 [facility] DATE CREATED AUTHOR AUTHOR'S ORGANIZ ATION 12/20/2022 [facility] DATE CREATED AUTHOR AUTHOR'S ORGANIZ ATION 04/19/2023 [facility] DATE CREATED AUTHOR AUTHOR'S ORGANIZ ATION 05/13/2023 [facility] FOR RECORDS PERTAINING TO PATIENTS WHO ARE OR HAVE BEEN ENROLLED IN A CHEMICAL DEPENDENCY/SUBSTANCEABUSE PROGRAM, SOME INFORMATION MAY BE OMITTED. This clinical summary was aggregated from multiple sources. Caution should be exercised in using it in the provision of clinical care. This summary normalizes information from multiple sources, and as a consequence, information in this document may materially change the coding, format and clinical context of patient data. In addition, data may be omitted in some cases. CLINICAL DECISIONS SHOULD BE BASED ON THE PRIMARY CLINICAL RECORDS. [facility] [employer] [facility]. provides no warranty or guarantee of the accuracy or completeness of information in this document.
[2023-07-07 15:01] LABS: Hematocrit 39.9 % (42.0-54.0); Mean Corpuscular HGB Conc 32.6 g/dL (29.9-35.2); Mean Corpuscular Hemoglobin 29.9 pg (25.9-34.0); Mean Corpuscular Volume 91.7 fL (80.0-94.0); Mean Platelet Volume 10.7 fL (9.5-13.5); Platelet Count 189 10^3/uL (150-450); Red Blood Count 4.35 10^6/uL (4.70-6.10); Red Cell Distribution Width 14.1 % (11.0-15.0); White Blood Count 5.9 10^3/uL (4.0-11.0)
[2023-07-07 15:08] LABS: Creatinine Urine Random 69.73 mg/dL (20.00-300.00); Protein Creatinine Ratio Urine 0.09; Total Protein Urine Random <6.0 mg/dL (<=11.9)
[2023-07-07 16:00] LABS: Alanine Aminotransferase 34 U/L (16-63); Albumin Globulin Ratio 0.8; Albumin Level 3.4 g/dL (3.4-5.0); Alkaline Phosphatase 92 U/L (46-116); Anion Gap 13.7; Aspartate Amino Transferase 24 U/L (15-37); BUN Creatinine Ratio 21.3; Bilirubin Total 0.4 mg/dL (0.2-1.0); Calcium 9.3 mg/dL (8.5-10.1); Carbon Dioxide 25.6 mmol/L (21.0-32.0); Chloride 105 mmol/L (98-107); Estimated GFR (African America >60 (>=60); Estimated GFR (Non-African Ame 58 (>=60); Globulin 4.2 g/dL; Glucose 104 mg/dL (74-106); Potassium 4.3 mmol/L (3.5-5.1); Sodium 140 mmol/L (136-145); Total Protein 7.6 g/dL (6.4-8.2)
== END 2023-07-07 14:37 | disposition home or self-care (01) ==
LOC: LAB 14:38
PROVIDERS: PCP Family Medicine; Visit Provider Internal Medicine Nephrology
DX: N18.31 Chronic kidney disease, stage 3a (principal); N17.9 Acute kidney failure, unspecified; D64.9 Anemia, unspecified; Z85.46 Personal history of malignant neoplasm of prostate; Z95.1 Presence of aortocoronary bypass graft
CPT/HCPCS: 36415; 80053; 82570; 84156; 85027

== ENCOUNTER 2023-09-26 12:36 | Outpatient (OUT) | payer MEDICARE, OTHER, SELFPAY ==
[2023-09-26 12:50] LABS: Hemoglobin 13.7 g/dL (14.0-18.0)
--- OUTSIDE RECORDS SUMMARY | 2023-09-26 12:58 | XMS_ITS | CCD ---
Author Organization [facility] Care Team Providers Care District Manager Primary Care Sales Name Role Phone ELLIOT ROSALES Primary Care Physician [phone] Elliot Rosales MD Primary Care Provider [phone] Christiane Olson Attending Unavailable UNKNOWN, PROVIDER Admitting [...] BROWN Admitting Unavailable IGNACIO JACKSON Unavailable RUDY, PHLYLIS Attending Unavailable RUDY PHYLLIS Consulting Unavailable RUDY, PHYLLIS Admitting Unavailable DR ELLIOT ROSALES Primary Care Unavailable DR ELLIOT ROSALES Primary Care Unavailable ELTAHAWY, EHAB Attending Unavailable ELTAHAWY, EHAB Consulting Unavailable ELTAHAWY, EHAB Admitting Unavailable ZITESHAER, DR MGAALIS Hercules Consulting Unavailable DR ELLIOT ROSALES Primary Care Unavailable ELTAHAWY, EHAB Admitting Unavailable ELTAHAWY, EHAB Attending Unavailable ELTAHAWY, EHAB Consulting Unavailable DR ELLIOT ROSALES Primary Care Unavailable ELTAHAWY, EHAB Admitting Unavailable ELTAHAWY, EHAB Attending Unavailable ELTAHAWY, EHAB Consulting Unavailable DR ELLIOT ROSALES Primary Care Unavailable BAKHOUS, AZIZ Attending Unavailable BAKHOUS, AZIZ Consulting Unavailable ANNABELLAS, AZIZ Admitting Unavailable DR ELLIOT ROSALES Primary Care Unavailable YANIRA, DR CRISTIANO Husain Attending Unavailable YANIRA, DR CRISTIANO Husain Consulting Unavailable DR CRISTIANO DOYLE Admitting Unavailable DR ELLIOT ROSALES Primary Care Unavailable ELTAHAWY, EHAB Admitting Unavailable ELTAHAWY, EHAB Attending Unavailable ELTAHAWY, EHAB Consulting Unavailable Elliot Rosales MD Primary Care Provider Ema DOYLE Referring Unavailable Ema DOYLE Attending Unavailable ELLIOT ROSALES Primary Care Unavailable MD Yung Yang Attending Provider MD Elliot Rosales Primary Care Provider [phone] Elliot Rosales Primary Care Unavailable Asaad, Imad Attending Unavailable Asaad, Imad Admitting Unavailable ANTOINETTE KEYS Attending Unavailable RUTH URRUTIA Referring Unavailable RUTH URRUTIA Attending Unavailable ELTAHAWY, EHAB Attending Unavailable PHYLLIS GRANT Attending Unavailable RUTH URRUTIA Referring Unavailable Patience Huitron Attending Unavailable Patience Huitron Attending Unavailable Patience Huitron Referring Unavailable Patience Huitron MTj Referring Unavailable Patience Huitron MTj Admitting Unavailable Patience Huitron Attending Unavailable Patience Huitron Attending Unavailable Allergies Allergy Classification Reported Allergen(s) Allergy Type Date of Onset Reaction(s) Facility (10 sources) flu vaccines; Translations: [flu vaccines] Allergy to substance 03-25-20 13 Unknown [facility] (4 sources) Influenza Virus Vaccine Tv Split 2011-05 (60 Yr +); Translations: [INFLUENZA VIRUS VACCINE TV SPLIT 2011-05 (60 YR +)] Drug Intolerance 10-05-19 [address] [facility] (1 source) flu virus vaccine tv (18 yr and up),recomb Drug allergy (disorder) 04-11-20 16 [facility] (8 sources) Influenza Vac A&B Surf Ant Adj Drug allergy rash, vomiting [employer] Other (1 source) Flu Vaccine tvs 2011-12(65yr+) Drug allergy (disorder) 03-26-20 13 [facility] (1 source) Influenza Virus Vaccines Drug allergy (disorder) 12-14-19 [facility] Rep[facility] (1 source) No Known Medication Allergies; Translations: [No Known Medication Allergies] Propensity to adverse reactions (disorder) [facility] Repository Medications Current Medications Medication Drug Class(es) Dates Sig (Normalized) Sig (Original) acetaminophen 500 mg oral tablet (16 sources) Start: 12-13-2022 take 500 mg by [...] mouth every 6 hours as needed. Antiox.Mv No.[id number] a (I-Caps) 280-10-2 mg Capsule (1 source) Start: 12-13-2022 take 1 capsule by mouth once daily Antiox.Mv No.57-[id number]- Libby (I-Caps) 280-10-2 mg Capsule Active 1 [...] aspirin 81 mg delayed release oral tablet (20 sources) Platelet Aggregation Inhibitor, Nonsteroidal Anti-inflammatory Drug [...] once daily. atorvastatin 80 mg oral tablet (20 sources) HMG-CoA Reductase Inhibitor Start: 03-14-20 take 1 mg by mouth once daily Lipitor 80 mg Tab mg tab(s), Oral, Daily, Refills(s) 0 Start Date: 03/14/21 Status: Ordered Comment on above: Take 80 mg by mouth once daily. atropine sulfate 0.025 mg / diphenoxylate hydrochloride 2.5 mg oral tablet (9 sources) Anticholinergic, Cholinergic Muscarinic Antagonist, Antidiarrheal Start: 08-28-19 take 1 tablet by mouth every six hours Lomotil 2.5-0.025 MG 1 tablet as needed Orally Four times a day for 10 days Aug, Active Comment on above: Take 1 tablet by [facility] four times daily as needed. Centrum Silver (9 sources) Start: 03-14-20 Centrum Silver Oral, Daily, Refill(s) 0 Start Date: 03/14/21 Status: Ordered cephalexin 500 mg oral capsule (3 sources) Cephalosporin Antibacterial Start: 09-20-19 take 1 capsule by mouth once daily Keflex 500 mg Cap 500 mg = 1 cap(s), Oral, Daily, Start 1 day prior to procedure, # 2 cap(s), Refills(s) 0, Pharmacy: [id number], 180, cm, 09/19/21 9:42:00 EDT, Height/Length Dosing, 86, kg, 09/19/21 9:42:00 EDT, Weight Dosing Start Date: 09/19/21 Status: Ordered cholecalciferol 0.025 mg oral tablet (1 source) Vitamin D take 1 tablet by mouth every twenty-four hours Vitamin D 25 MCG (1000 UT) 1 tablet Orally Once a day Active diazePAM 10 mg oral tablet (1 source) Benzodiazepine Start: 02-13-20 Valium 10 mg Tab 10 mg = 1 tab(s), Oral, Once, PRN for anxiety, take 1 hour prior to scheduled procedure, # 1 tab(s), Refills(s) 0, Pharmacy: [id number], 180, cm, 12/04/22 9:13:00 EDT, Height/Length Dosing, 88, kg, 12/04/22 9:13:00 EDT, Weight Dosing Start Date: 02/12/23 Status: Ordered furosemide 20 mg oral tablet (20 sources) Loop Diuretic Start: 06-05-20 take 1 [...] by mouth once daily. ICaps Areds 2 (9 sources) ICaps Areds 2 Active ICaps with Lutein and Zeaxan oral tablet (4 sources) Start: 03-14-2021 ICaps with Lutein and Zeaxan oral tablet Oral, Daily, Refill(s) 0 Start Date: 03/14/21 Status: Ordered melatonin 10 mg oral tablet (11 sources) Start: 12-13-2022 take 10 mg by mouth at bedtime Melatonin Active 10 MG PO Bedtime December 13, 2022 12:00am take 1 capsule by mo uth every twenty-four hours Melatonin 10 MG 1 tablet at bedtime as needed Orally Once a day Active take 2 capsules by m outh every [...] succinate 50 mg extended release oral tablet (20 sources) beta-Adrenergic Ash Start: 03-14-2021 take 1 mg by mouth once daily Toprol XL 50 mg Tab-ER mg tab(s), Oral, Daily, Refills(s) 0 Start Date: 03/14/21 Status: Ordered Comment on above: Take 50 mg by mouth once daily. 24 hr mirabegron 25 mg extended release oral tablet (18 sources) beta3-Adrenergic Agonist Start: 09-19-2021 End: 07-03-2023 take 1 tablet by mouth once daily Myrbetriq 25 mg oral tablet, extended release 25 mg = 1 tab(s), Oral, Daily, X 90 day(s), # 90 tab(s), Refills(s) 3, Pharmacy: [id number], 180, cm, 06/05/22 9:31:00 EST, Height/Length Dosing, 87, kg, 06/05/22 9:31:00 EST, Weight Dosing Start Date: 07/08/22 Stop Date: 07/03/23 Status: Ordered Comment on above: Take 25 mg by mouth once daily. Multivitamin preparation (9 sources) take 1 tablet by mouth once daily Multi Vitamin - 1 tablet Orally Once a day Active Multivitamin-Minerals- Lutein (Centrum Silver) Tablet (1 source) Start: 12-13-2022 take 1 tablet by mouth once daily Multivitamin-[place] ls-Lutein (Centrum Silver) Tablet Active 1 TAB PO Daily December 13, 2022 12:00am Potassium Chloride (11 sources) Start: 07-23-2023 Potassium Chloride (Cde-Amwn-Kai M20) 20 mEq oral tablet, extended release Refills(s) 0 Start Date: 07/23/23 Status: Ordered take 1 capsule by mo [facility] every twenty-four hours Potassium Chloride ER 10 MEQ 1 tablet with food Orally Once a day Active potassium chlori de SR (MICRO-K) 10 mEq CR capsule Take 10 mEq by mouth twice daily. 0 Active take 1 tablet by [facility] twenty-four hours Potassium Chloride ER 20 MEQ 1 tablet with food Orally Once a day Active Comment on above: Take 10 mEq by mouth twice daily. Slow Release Iron 160 (50 Fe) MG (3 sources) take 1 tablet by mouth once daily Slow Release Iron 160 (50 Fe) MG 1 tablet Orally Once a day Active tamsulosin hydrochloride 0.4 mg oral capsule (20 sources) alpha-Adrenergic Ash Start: 03-14-2021 take 1 capsule by mouth once daily Flomax 0.4 mg Cap 0.4 mg = 1 cap(s), Oral, Daily, # 90 cap(s), Refills(s) 3, Pharmacy: [facility], 180, cm, 04/16/23 9:44:00 EDT, Height/Length Dosing, 88, kg, 04/16/23 9:44:00 EDT, Weight Dosing Start Date: 04/16/23 Status: Ordered Comment on above: Take 0.4 mg by mouth once daily. Turmeric extract (5 sources) Start: 03-14-2021 take 1 mg by mouth once daily Turmeric mg, Oral, Daily, Refill(s) 0 Start Date: 03/14/21 Status: Ordered Urinozinc Prostate Health Complex Classic (8 sources) Start: 03-14-2021 Urinozinc Prostate Health Complex Classic Oral, Daily, Refill(s) 0 Start Date: 03/14/21 Status: Ordered Vitamin D3 (1 source) Start: 07-23-2023 Vitamin D3 Refills(s) 0 Start Date: 07/23/23 Status: Ordered Completed/Discontinued Medications Medication Drug Class(es) [...] te Episodic/Chronic Acute and unspecified renal failure (9 sources) Acute kidney failure, unspecified; Translations: [ACUTE KIDNEY FAILURE UNSPECIFIED] Onset: 05-02-2022 Episodic Acute myocardial infarction (15 sources) Myocardial infarction 03-14-2021 Chronic Cancer of prostate (9 sources) Malignant tumor of prostate 03-14-2021 Chronic Cancer of prostate (20 sources) Personal history of malignant neoplasm of prostate; Translations: [History of malignant neoplasm of prostate] Onset: 10-04-2015 Episodic Cardiac dysrhythmias (4 sources) Paroxysmal atrial fibrillation; Translations: [PAROXYSMAL ATRIAL FIBRILLATION] Onset: 05-22-2022 Chronic Chronic kidney disease (8 sources) Chronic kidney disease stage 3A ; Translations: [Chronic kidney disease, stage 3a] Chronic Conduction disorders (4 sources) Encounter for adjustment and management of automatic implantable cardiac defibrillator; Translations: [Presence of automatic (implantable) cardiac defibrillator] Onset: 12-20-2022 Chronic Coronary atherosclerosis and other heart disease (12 sources) Atherosclerotic heart disease of [place] coronary artery without angina pectoris; Translations: [Coronary atherosclerosis due to lipid rich plaque] Onset: 03-04-2022 Chronic Coronary atherosclerosis and other heart disease (3 sources) Presence of aortocoronary bypass graft Episodic Deficiency and other anemia (9 sources) Anemia 03-14-2021 Episodic Deficiency and other anemia (3 sources) Anemia, unspecified Episodic Disorders of lipid metabolism (2 sources) Mixed hyperlipidemia; Translations: [Mixed hyperlipidemia] Onset: 03-04-2022 Chronic Essential hypertension (2 sources) Essential (primary) hypertension; Translations: [Essential (primary) hypertension] Onset: 03-04-2022 Chronic Fluid and electrolyte disorders (1 source) Hypokalemia Episodic Gastroduodenal ulcer (except hemorrhage) (6 sources) Chronic duodenal ulcer Onset: 08-07-2010 12-03-2021 Chronic Genitourinary symptoms and ill-defined conditions (20 sources) Microscopic hematuria; Translations: [Other microscopic hematuria] Onset: 09-19-2021 Episodic Hyperplasia of prostate (17 sources) Benign prostatic hypertrophy with outflow obstruction; Translations: [Benign prostatic hyperplasia with lower urinary tract symptoms] Onset: 09-19-2021 Chronic Hypertension with complications and secondary hypertension (4 sources) Hypertensive heart disease without heart failure; Translations: [HTN HEART DISEASE W/O HEART FAIL] Onset: 06-18-2022 Chronic Other aftercare (5 sources) Long-term current use of anticoagulant; Translations: [custodial (current) use of anticoagulants] Onset: 06-05-2022 Episodic Other aftercare (1 source) Encounter for removal of sutures Episodic Other and ill-defined heart disease (9 sources) Heart disease 03-14-2021 Chronic Other diseases of bladder and urethra (3 sources) Detrusor overactivity; Translations: [Overactive bladder] Onset: 12-04-2022 Chronic Other diseases of bladder and urethra (4 sources) Overactive bladder 12-04-2022 Chronic Other diseases of kidney and ureters (3 sources) Urinary tract obstruction; Translations: [Other obstructive and reflux uropathy] Onset: 10-01-2021 Episodic Other gastrointestinal disorders (2 sources) Diarrhea, unspecified Episodic Other gastrointestinal disorders (1 source) Functional diarrhea Episodic Other male genital disorders (1 source) Erectile dysfunction following radiation therapy; Translations: [Erectile dysfunction due to and following radiation therapy] Onset: 09-19-2021 Chronic Other male genital disorders (9 sources) Impotence 03-14-2021 Chronic Other screening for [...] hypertrophic cardiomyopathy] Onset: 02-18-2023 Chronic Substance-related disorders (9 sources) Smoker 03-14-2021 Chronic Comment on above: Added secondary to d ocumentation in Social History. Unclassified (5 sources) Drug therapy finding 06-05-2022 Unclassified (1 source) CONTACT W/AND (SUSP) EXPOS COVID-19; Translations: [CONTACT W/AND (SUSP) EXPOS COVID-19] Onset: 02-15-2022 Unclassified (1 source) Encounter for screening for malignant neoplasm of colon; Translations: [Encounter for screening for malignant neoplasm of colon] Onset: 12-13-2022 Past or Other Problems Problem Classification Problem Date Documented Da te Episodic/Chronic Chronic kidney disease (4 sources) Chronic kidney disease Nonspecific chest pain (4 sources) Chest pain, unspecified; Translations: [CHEST PAIN UNSPECIFIED] Onset: 02-07-2022 Episodic Other aftercare (1 source) Other jail (current) drug therapy; Translations: [OTH NURSING HOME CURRENT DRUG THERAPY] Onset: 05-25-2022 Episodic Other [...] Test Name Value Interpretation Reference Range Facility [facility] 07-29-2023 Screens [id number]. 00TIFF Normal [facility] Screens [id number] 0TIFF [facility] Ambulatory Visit Summaryon 0 07-23-2023 Ambulatory Visit Summary IGNACIO AMIN :1945 Visit Date:07/23/2023 Ambulatory Visit Instructions Your Diagnosis BPH with urinary obstruction Personal history of prostate cancer OAB (overactive bladder) Anticoagulated Other obstructive and reflux uropathy Your Care Team Attending Physician - Tomy DUNN, Patience Salinas Primary Care Physician - ELLIOT ROSALES MD This Is Your Medications List tamsulosin (Flomax 0.4 mg Cap) Contact prescribing physician if questions or concerns aspirin (aspirin 81 mg oral capsule) atorvastatin (Lipitor 80 mg Tab) cholecalciferol (Vitamin D3) furosemide (furosemide 20 mg Tab) metoprolol (Toprol XL 50 mg Tab-ER) multivitamin with minerals (Centrum Silver) potassium chloride (Potassium Chloride (Ddx-Flip-Ovl M20) 20 mEq oral tablet, extended release) Procedures Performed Transurethral insertion of prostatic urethral lift implant (03/03/2023), Open heart surgery (01/21/2022), Cystoscopy (10/01/2021), Brachytherapy (2011), Cataract, Cataract, Colonoscopy. Discharge Vitals Heart Rate (Peripheral) 68 Respiratory Rate 16 Blood Pressure 132/80 Height 180 cm Height 71 in Weight 90 kg Weight 198 lb BMI 27.78 What to do next You Need to Schedule the Following Appointments Follow Up with Tomy DUNN, Patience Salinas, URL, URO When: Comments: PRN Where: Medications What How Much When Instructions Unchanged tamsulosin (Flomax 0.4 mg Cap) 1 Capsules By Mouth Every day Unchanged aspirin (aspirin 81 mg oral capsule) By Mouth Every 4 hours Contact prescribing physician if questions or concerns Unchanged atorvastatin (Lipitor 80 mg Tab) By Mouth Every day Contact prescribing physician if questions or concerns Unchanged cholecalciferol (Vitamin D3) Contact prescribing physician if questions or concerns Unchanged furosemide (furosemide 20 mg Tab) By Mouth Every day Contact prescribing physician if questions or concerns Unchanged metoprolol (Toprol XL 50 mg Tab-ER) By Mouth Every day Contact prescribing physician if questions or concerns Unchanged multivitamin with minerals (Centrum Silver) By Mouth Every day Contact prescribing physician if questions or concerns Unchanged potassium chloride (Potassium Chloride (Ogs-Ovta-Eml M20) 20 mEq oral tablet, extended release) Contact prescribing physician if questions or concerns Allergies flu vaccines (Unknown) Problems Ongoing - Any problem that you are currently receiving treatment for. Anemia Anticoagulated BPH with urinary obstruction Chronic duodenal ulcer ED (erectile dysfunction) Heart attack Heart disease Microscopic hematuria Myocardial infarction OAB (overactive bladder) Personal history of prostate cancer Prostate cancer Smoker Urinary urgency Patient Survey You may receive a survey via text or e-mail asking about your office visit. Please share your experience with us by completing your survey. We appreciate your feedback and thank you for choosing us for your care. Education Materials Benign Prostatic Hyperplasia Benign prostatic hyperplasia (BPH) [...] bladder after you finish urinating. ? A digit (more content not included)... Normal [facility] Patient Educationon 07-23-19 Patient Education Urology Benign Prostatic Hyperplasia Benign [...] Follow these instructions at home: ? Take skzs-xic-lqyejvq and prescription medicines only as told by [...] the medicine (more content not included)... Normal [facility] Urology Office/Clinic Noteon 07-23-2023 Urology Office/Clinic Note Chief Complaint [facility] Staff Pt is here for a 3 month F/U Previous DX; BPH, Hx of prostate cancer, OAB S/P Brachytherapy 2011 *Taking Tamsulosin 0.4 mg qd Pt still apprehensive of symptom improvement since Urolift in February. Stronger stream after taking water pill. Only getting up 1x/night, occasionally. Denies frequency during the day. Feels empty after voiding. No difficulty starting stream. Denies unsteady stream. Very little leaking, with blowing nose. Denies any concerns at this time. IPSS 6 JOSHUA 1 History of Present Illness Tests reviewed: reviewed [...] PHQ Score Initial Depression Screen Score: 0 SCORE ROS - Provider Constitutional: denies weight loss, [...] & Measurements HR: 68(Peripheral) RR: 16 BP: 132/80 HT: 71 in HT: 180 cm WT: 90 kg WT: 198 lb BMI: 27.78 General Appearance: alert, no distress, well nourished, well developed male. Assessment/Plan 78 yo M with history of prostate cancer s/p radiation and BPH with LUTS s/p Urolift here for follow up JOSHUA 1(1) - Pt denies desire for treatment at this time. 1. BPH with urinary obstruction (N40.1: Benign prostatic hyperplasia with lower urinary tract symptoms) Cysto 10/01/21 - Mild-moderate lateral lobe hypertrophy with moderate median lobe enlargement with small intravesical median lobe towards pt's left bladder neck. Not ball valve effect. Short prostate. High bladder neck. No trabeculation. S/p UroLift 03/03/23 - 5 implants UA today negative for blood and infection. IPSS 6(9) - after restarting Tamsulosin 0.4mg QD. Only getting up 1x/night, occasionally. Denies frequency during the day. Feels empty after voiding. No difficulty starting stream. Denies unsteady stream. Very little leaking, with blowing nose. Denies any concerns at this time. Pt still apprehensive of symptom improvement since Urolift in February, although prior states stream stronger after procedure. Discussed limitations with hx of radiation. Pt states that he feels the Tamsulosin has helped some. Discussed continuing the Tamsulosin, or having a cysto to see if there is anything else we could do. Pt states that he feels he can live with his urinary sxs. Follow up as needed - declined scheduled follow up All questions/concerns were discussed. Pt to call the office if he encounters any issues prior. Pt acknowledges understanding. -Cont timed voids, avoid bladder irritants -Continue Tamsulosin as above. Pt to call for refills. 2. Personal history of prostate cancer (Z85.46: Personal history of malignant neoplasm of prostate) S/P Brachytherapy 2011. Dr. Doyle, pt was cleared to follow with him on a PRN basis. Understandable given age and co-morbidities. Again discussed risks/benefits and implications for PSA monitoring. Given comorbidities, life expectancy and goals for quality of life, pt states unlikely he would want to be on ADT or other meds/tx. Declines further PSA surveillance at this time 3. OAB (overactive bladder) (N32.81: Overactive bladder) No longer taking Myrbetriq 25 mg ER qd and is still taking lasix. PVR at prior OV was 48 cc. Asx, no UTIs Discussed contribution to sx including lasix -Timed voids. Avoid bladder irritants 4. Anticoagulated (Z79.01: custodial (current) use of anticoagulants) Eliquis 5mg BID -stent-open heart surgery/triple bypass around Mar 2022. Elevated periop risk. -Cardiac clearance/AC recs prior to procedures I spent 30 minutes today with the patient: reviewing tests in preparation to see and discuss them with the patient, documenting clinical information in the electronic health records, and care coordination. Time was spent performing a medical exam and evaluation, counseling and educating the patient, and ordering tests in caring for the patient. Follow-up With When Contact Information Patience Huitron MD, URL, URO Additional Instructions: PRN Patient Education Benign Prostatic Hyperplasia I, Vania Dougherty, personally scribed for Dr. Huitron on 07/23/2023 10:46:55. . Documentation recorded by the scribe, Vania Dougherty, accurately reflects the services(s) I performed an (more content not included)... Normal [facility] Comment on above: Result Comment: Elec tronically Signed By: Patience Huitron MD\.br\Date and Time Signed: 07/23/23 15:27 EST\.br\Electronically Co-Signed By: Vania Dougherty\.br\Date and Time Co-Signed: 07/23/23 10:47 EST Office Visiton 05-12-2023 Follow-up visit [id number] Hans Amin 1945 M Date Provider Department Center 05/12/2023 Negro6-ANTOINETTE KEYS Family History Problem Relation Age of Onset Diabetes Mother Coronary artery disease Father Other Sister Family Status - Relation Status Age at Mother Father Sister Level of Service:[id number] DE OFFICE/OUTPATIENT ESTABLISHED MOD MDM 30-39 MIN [facility] 04-17-2023 Screens [id number] .00TIFF [facility] Screens [id number] TIFF Normal [facility] Ambulatory Visit Summaryon 1 Ambulatory Visit Summary IGNACIO AMIN :1945 Visit Date:04/16/2023 Ambulatory Visit Instructions Your Diagnosis BPH with urinary obstruction Personal history of prostate cancer OAB (overactive bladder) Anticoagulated Tests Performed Urnls Dip Stick Auto w/o Microscopy POC [id number] Your Care Team Attending Physician - Patience Huitron MD Primary Care Physician - ELLIOT ROSALES MD [...] Patience Huitron MD [facility] Patient Educationon 10-25-20 23 Patient Education Urology Benign Prostatic Hyperplasia [...] Follow these instructions at home: ? Take koru-pic-oczgnab and prescription medicines only as told by [...] medicine (more content not included)... Normal [facility] Urology Office/Clinic Noteon 04-16-2023 Urology Office/Clinic Note [...] voids -Re-eval after tamsulosin 4. Anticoagulated (Z79.01: terminal carman (current) use of anticoagulants) Eliquis 5mg BID [...] Contact Information Patience Huitron MD, URL, URO In 3 months Additional Instructions: Patient Education Benign Prostatic Hyperplasia I, Vania Dougherty, personally scribed for Dr. Huitron on 04/16/2023 10:59:26. . Documentation recorded by the scribVania huntley, accurately reflects the services(s) I performed and decisions made by me. Authenticated by Dr. Huitron on 04/16/2023 12:38:21. 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 Normal [facility] Comment on above: Result Comment: Elec tronically Signed By: Patience Huitron MD\.br\Date and Time Signed: 04/16/23 12:38 EDT\.br\Electronically Co-Signed By: Vania Dougherty\.br\Date and Time Co-Signed: 04/16/23 10:59 EDT Consent for Procedure/Surger yon 03-03-2023 Consent for Procedure/Surgery [id number]. 00CD:127 Normal [facility] Consent for Treatmenton 02-21 Consent for Treatment [id number] 0CD:127 Normal [facility] Inpatient Patient Summaryon 03-03-2023 Inpatient Patient Summary [address] [address] Clinical Summary Person Information Name: IGNACIO AMIN Age: 77 Years : 1945 Sex: Male PCP: ELLIOT ROSALES MD Marital Status: Race: White Ethnicity: Non- or Language: [place]er Visit Id: Visit Reason: BPH WITH LUTS Speciality: Acuity: Enc Type: Outpatient Med Service: Surgery Arrival: 03/03/2023 08:34:30 Discharge: Dispo Type: Address: [address] [place] [address] [phone] Provider Notes: Diagnosis: Anticoagulated; BPH with urinary [...] Huitron MD Follow up: With: Address: When: [address], [facility] [address] [place] [address] [phone] Business (1) Comments: Office to schedule follow up in 1 month with PVR Patient Education Information: Lue - Urolift Post-Op Instructions (CUSTOM) [facility] IntraOperative Documentson 0 03-03-2023 IntraOperative Documents [id number]. 00CD:127 [facility] Main OR Intraoperative Recor don 03-03-2023 Main OR Intraoperative Record IntraOp Document Type FTURO Summary Primary Physician: Patience Huitron MD Finalized Date/Time: 03/03/23 10:01:19 Pt. Name: IGNACIO AMIN/Sex: 1945 Male Med Rec #: [id number] Physician: Patience Huitron MD Financial #: [id number] Pt. Type: O Room/Bed: / Admit/Disch: 03/03/23 08:34:30 - Institution: Case Times FTURO Entry 1 Patient Times In Room 03/03/23 09:47:00 Out Room 03/03/23 10:06:00 Procedure Times Start 03/03/23 09:51:00 Stop 03/03/23 09:57:00 Anesthesia Times Last Modified By: Amaya TRIMBLE, Leola Husain 03/03/23 10:01:15 Case Attendance FTURO Entry 1 Entry 2 Entry 3 Case Attendee Tomy DUNN, Patience Conde RN, Catia Jarvis Role Performed Surgeon - Primary Knife Changer - Primary Scrub - Primary Time In [...] Class 2 - Clean-Contaminated Last Modified By: Leola Conde RN 03/03/23 10:01:00 General Case Data FTURO Pre-Care Text: Classifies surgical wound, implements aseptic technique, initiates traffic control Entry 1 Case Information OR URO 1 FT Case Level None Wound Class 2 - Clean-Contaminated Specialty Urology Preop Diagnosis BPH WITH LUTS Postop Same As Preop Yes Postop Diagnosis BPH WITH LUTS Outcomes Met? Yes Last Modified By: Leola Conde RN 03/03/23 09:47:48 Post-Care Text: The patient is [...] Patience Huitron MD, Verified (If Medication Participants Leola Conde RN Applicable) Makeda Colindres Kendall R Time Out [...] UROLIFT IMPLANT Serial Number Lot Number [id number] Pet Sitter NEOTRACT NEOTRACT Catalog ?# [id number] UL2-C Size [...] By: Leola Conde RN 03/03/23 10:01 Normal [facility] Main OR Preoperative Recordo n 03-03-2023 Main OR Preoperative Record Holding Area Document Type FTURO Summary Primary Physician: Patience Huitron MD Finalized Date/Time: 03/03/23 09:24:52 Pt. Name: IGNACIO AMIN/Sex: 1945 Male Med Rec #: [id number] Physician: Patience Huitron MD Financial #: [id number] Pt. Type: O Room/Bed: / Admit/Disch: 03/03/23 [...] STEFANIE Mohamud RN, Ruthann 03/03/23 09:24 Normal [facility] Operative Reporton 3 Operative Report Patient: LAURA [...] The cystoscopy bridge was replaced with a UroConfer UL-2 delivery device. The first treatment site [...] up in 1 month with PVR. Normal [facility] Comment on above: Result Comment: Elec tronically Signed By: Patience Huitron MD\.br\Date and Time Signed: 03/03/23 10:07 EDT Outpatient Surgery Discharge Instructionon 03-03-2023 Outpatient Surgery Discharge Instruction [address] [address] Patient Discharge Instructions PERSON INFORMATION Name: IGNACIO [...] Follow up: With: Address: When: Patience Huitron [address] [place], [place] [id number] [phone] Business (1) Comments: Office to schedule follow up in 1 month with PVR Comment: PATIENT EDUCATION INFORMATION Instructions: [facility] [place], [place] Post-Operative Instructions for UroLift After your [...] large th (more content not included)... Normal [facility] Patient Educationon 03-03-20 23 Patient Education [facility] [place], [place] Post-Operative Instructions for UroLift After your [...] like the bladder is not emptying. Normal [facility] Office Visiton 02-18-2023 Follow-up visit [id number] Hans Amin 1945 M Date Provider Department Center 02/18/2023 Jeanette-RUTH URRUTIA LISHA Gan Family History Problem Relation Age of Onset Diabetes Mother Coronary artery disease Father Other Sister Family Status - Relation Status Age at Mother Father Sister Level of Service:77503 DE OFFICE/[facility]PATIENT [facility] 60-74 MINUTES Normal [facility] Reminderson 02-12-2023 Reminders - From: Marley Santillan To: EU - Recalls Lue; Sent: 12/25/2022 15:33:52 EDT Show up: 02/04/2023 15:33:00 EDT Subject: schedule UroLift Reminder/Recall PAtient would like urolift in . Clearance to hold Eliquis (note 12/20/22) called patient to schedule, left msg on voicemail Patient is scheduled 03/03/23 Normal [facility] Consultation Noteon 12-31-19 Consultation Note [id number] 0CD:127 Normal [facility] Office Visiton 12-20-2022 Follow-up visit [id number] Hans Amin 1945 M Date Provider Department Center 12/20/2022 EKATERINAS PHYLLIS Gan Family History Problem Relation Age of Onset Diabetes Mother Coronary artery disease Father Other Sister Family Status - Relation Status Age at Mother Father Sister Level of Service:59862 DE OFFICE/OUTPATIENT ESTABLISHED MOD MDM 30-39 MIN Normal [facility] Félix 12-13-2022 L -- ---- Specimen: [id number] Received: 12/13/22 Status: LORI Shira Num: [id number] Spec Type: Surgical Subm Dr: Yung Yang MD Tissues: A Colon Biopsy (ASCENDING POLYPS) Procedures: MARGARITA/Yobani Sandoval/Michael L4 ---- Age/ Patient Sex Location Account Attending Physician ---- Ignacio Amin 77/M [id number] Yung Yang MD ---- SPEC NUM: [id number] RECD: 12/13/22 STATUS: LORI VILLAFANA NUM: [id number] DILLON: 12/13/22 DR: Yung Yang MD ENTERED: 12/13/[address] [facility] DR: SPEC TYPE: Surgical DEPT: S ORDERED: HE/2, Gross/Micro [...] microscopic examination confirms the diagnosis. CPT Codes 88956 ---- ---- Specimen: [id number] Received: 12/13/22 Status: LORI Villafana Num: [id number] Spec Type: Surgical Subm Dr: Yung Yang MD Tissues: A Colon Biopsy (ASCENDING POLYPS) Procedures: HE/2, Gross/Micro L4 ---- Patient: Ignacio Amin [id number] (Continued) ---- Signed (signature on file) Ashley Mcgrath MD 12/16/22 1120 [facility] Urology Office/Clinic Noteon 12-05-2022 Urology Office/Clinic Note [...] the future -Timed voids 4. Anticoagulated (Z79.01: terminal carman (current) use of anticoagulants) Eliquis 5mg BID [...] schedule urolift Patient Education Benign Prostatic Hyperplasia IKeely, personally scribed for Dr. Huitron on 12/04/2022 09:47:59. . Documentation recorded by the scribeKeely, accurately reflects the services(s) I performed and decisions made by me. Authenticated by Dr. Huitron on 12/05/19 (more content not included)... Normal [facility] Comment on above: Result Comment: Elec tronically Signed By: Patience Huitron MD\.br\Date and Time Signed: 12/04/22 23:21 EDT\.br\Electronically Co-Signed By: Keely Zacarias\.br\Date and Time Co-Signed: 12/04/22 09:48 EDT Formson 12-04-2022 Forms [id number] 0CD:127 Normal [facility] Patient Educationon 12-05-19 23 Patient Education Urology Benign Prostatic Hyperplasia [...] Follow these instructions at home: ? Take tygl-kev-oqziuju and prescription medicines only as told by [...] the medicine (more content not included)... Normal [facility] Screenson 12-04-2022 Screens [id number]#1. 00CD:127 Normal [facility] Screens [id number]#1. 00CD:127 [facility] CNOVon 09-24-2022 CNOV Office Visit (RADTSA ) IGNACIO AMIN ([id number]) 1945 M Date Time Provider Department 09/24/22 1:00 PM Ema DOYLE During your visit today, we recorded the following information about you: Temperature Pulse Respiration Blood pressure 97.1 degrees 60/minute 18/minute 129/79 Weight 86 kg Nurys Saleem RN 10/01/2022 10:49 AM Signed AU 3 NAI Parker MD 10/01/2022 10:49 AM [...] in the EMR. Referring Provider: Ema DOYLE [[id number]] Allergies As of Date: 09/24/2022 Noted Allergy Reaction INFLUENZA VIRUS VACCINE TV SPLIT *10/04/2014 5 - Intolerance Date Reviewed: 09/24/2022 Reviewed by: Nurys Saleem RN - Fully Assessed Primary Visit Diagnosis:History of prostate cancer [Z85.46] Order(s):PSA (OUTSIDE) [2627067] Order #: [id number] PSA/PROSTSPECAG DIAG [SQPSA] Order #: [id number] FUTURE Prescriptions as of 10/01/2022 - furosemide [...] 10/04/2015 Visit Notes: >> Nurys Saleem RN [place] Sep 24, 2022 1:06 PM Status: Signed AUA 3 Ang (more content not included)... [facility] FERRITINon 08-05-2022 Ferritin [Mass/Vol] 157.0 ng/mL Normal 26.0-388.0 [facility] Comment on above: Performed By: #### F ERR #### [facility] [address] [place] [address] Dr. Yoselin Rivera HEMOGRAM AND PLATELon 2022 Hematocrit (Bld) [Volume fraction] 35.7 % Critically low 42.0-54.0 [facility] Comment on above: Performed By: #### H H #### [facility] [address] [place] [address] Dr. Yoselin Rivera Hemoglobin (Bld) [Mass/Vol] 11.8 g/dL Critically low 14.0-18.0 [facility] Comment on above: Performed By: #### H H #### [facility] [address] [place] [address] Dr. Yoselin Rivera MCH (RBC) [Entitic mass] 30.3 pg Normal 25.9-34.0 [facility] Comment on above: Performed By: #### H H #### [facility] [address] [place] [address] Dr. Yoselin Rivera MCHC (RBC) [Mass/Vol] 33.1 g/dL Normal 29.9-35.2 [facility] Comment on above: Performed By: #### H H #### [facility] [address] [place] [address] Dr. Yoselin Rivera MCV (RBC) [Entitic vol] 91.8 fL Normal 80.0-94.0 [facility] Comment on above: Performed By: #### H H #### [facility] [address] [place] [address] Dr. Yoselin Rivera PLT 157 103/ul Normal 150-450 [facility] Comment on above: Performed By: #### H H #### [facility] [address] [place] [address] Dr. Yoselin Rivera RBC 3.89 106/ul Critically low 4.70-6.10 [facility] [place] Comment on above: Performed By: #### H H #### [facility] [address] [place] [address] Dr. Yoselin Rivera WBC 5.0 103/ul Normal 4.0-11.0 [facility] Comment on above: Performed By: #### H H #### [facility] [address] [place] [address] Dr. Yoselin Rivera PROF 14(COMP METB)on 023 Albumin [Mass/Vol] 3.6 g/dL Normal 3.4-5.0 [facility] Comment on above: Performed By: #### C MP #### [facility] [address] [place] [address] Dr. Yoselin Rivera Albumin/Globulin [Mass ratio] 1.0 {ratio} Normal [facility] Comment on above: Performed By: #### C MP #### [facility] [address] [place] [address] Dr. Yoselin Rivera ALP [Catalytic activity/Vol] 102 U/L Normal 46-116 [facility] Comment on above: Performed By: #### C MP #### [facility] [address] [place] [address] Dr. Yoselin Rivera ALT [Catalytic activity/Vol] 31 U/L Normal 16-63 [facility] Comment on above: Performed By: #### C MP #### [facility] [address] [place] [address] Dr. Yoselin Rivera Anion gap [Moles/Vol] 11.6 mmol/L Normal [facility] Comment on above: Performed By: #### C MP #### [facility] [address] [place] [address] Dr. Yoselin Rivera AST [Catalytic activity/Vol] 21 U/L Normal 15-37 [facility] Comment on above: Performed By: #### C MP #### [facility] [address] [place] [address] Dr. Yoselin Rivera Bilirubin [Mass/Vol] 0.5 mg/dL Normal 0.2-1.0 [facility] Comment on above: Performed By: #### C MP #### [facility] [address] [address] [address] Yoselin Rivera Calcium [Mass/Vol] 9.3 mg/dL Normal 8.5-10.1 [facility] Comment on above: Performed By: #### C MP #### [facility] [address] [address] [address] Yoselin Rivera Chloride [Moles/Vol] 104 mmol/L Normal 98-107 [facility] Comment on above: Performed By: #### C MP #### [facility] [address] [address] [address] Yoselin Rivera CO2 [Moles/Vol] 30.6 mmol/L Normal 21.0-32.0 [facility] Comment on above: Performed By: #### C MP #### [facility] [address] [place] [address] Dr. Yoselin Rivera Creatinine [Mass/Vol] 1.25 mg/dL Normal 0.70-1.30 [facility] Comment on above: Performed By: #### C MP #### [facility] [address] [place] [address] Dr. Yoselin Rivera EGFR-AF NEPALESE >60 Normal >=60 [facility] Comment on above: Performed By: #### C MP #### [facility] [address] [place] [address] Dr. Yoselin Rivera EGFR-NON AF NEPALESE 56 mL/min/1.73m2 Critically low >=60 [facility] Comment on above: Performed By: #### C MP #### [facility] [address] [place] [address] Dr. Yoselin Rivera Globulin (S) [Mass/Vol] 3.5 g/dL Normal [facility] Comment on above: Performed By: #### C MP #### [facility] [address] [place] [address] Dr. Yoselin Rivera Glucose [Mass/Vol] 132 mg/dL Critically high 74-106 T [facility] Comment on above: Performed By: #### C MP #### [facility] [address] [place] [address] Dr. Yoselin Rivera Potassium [Moles/Vol] 4.2 mmol/L Normal 3.5-5.1 [facility] Comment on above: Performed By: #### C MP #### [facility] [address] [address] [address] Yoselin Rivera Protein [Mass/Vol] 7.1 g/dL Normal 6.4-8.2 [facility] Comment on above: Performed By: #### C MP #### [facility] [address] [address] [address] Yoselin Rivera Sodium [Moles/Vol] 142 mmol/L Normal 136-145 [facility] Comment on above: Performed By: #### C MP #### [facility] [address] [address] [address] Yoselin Rivera Urea nitrogen [Mass/Vol] 27.0 mg/dL Critically high 7.0-18.0 [facility] Comment on above: Performed By: #### C MP #### [facility] [address] [address] [address] Yoselin Rivera Urea nitrogen/Creatinine [Mass ratio] 21.6 mg/mg Normal [facility] Comment on above: Performed By: #### C MP #### [facility] [address] [address] [address] Yoselin Rivera PROF CHEM 8 (BAS METB)on Anion gap [Moles/Vol] 11.3 mmol/L Normal [facility] Comment on above: Performed By: #### B MP #### [facility] [address] [address] [address] Yoselin Rivera Calcium [Mass/Vol] 9.3 mg/dL Normal 8.5-10.1 [facility] Comment on above: Performed By: #### B MP #### [facility] [address] [address] [address] Yoselin Rivera Chloride [Moles/Vol] 103 mmol/L Normal 98-107 [facility] Comment on above: Performed By: #### B MP #### [facility] [address] [address] [address] Yoselin Rivera CO2 [Moles/Vol] 31.6 mmol/L Normal 21.0-32.0 [facility] Comment on above: Performed By: #### B MP #### [facility] [address] [address] [address] Yoselin Rivera Creatinine [Mass/Vol] 1.34 mg/dL Critically high 0.70-1.30 [facility] Comment on above: Performed By: #### B MP #### [facility] [address] [address] [address] Yoselin Rivera EGFR-AF NEPALESE >60 Normal >=60 [facility] Comment on above: Performed By: #### B MP #### [facility] [address] [address] [address] Yoselin Rivera EGFR-NON AF NEPALESE 52 mL/min/1.73m2 Critically low >=60 [facility] Comment on above: Performed By: #### B MP #### [facility] [address] [address] [address] Yoselin Rivera Glucose [Mass/Vol] 150 mg/dL Critically high 74-106 [facility] Comment on above: Performed By: #### B MP #### [facility] [address] [address] [address] Yoselin Rivera Potassium [Moles/Vol] 3.9 mmol/L Normal 3.5-5.1 [facility] Comment on above: Performed By: #### B MP #### [facility] [address] [address] [address] Yoselin Rivera Sodium [Moles/Vol] 142 mmol/L Normal 136-145 [facility] Comment on above: Performed By: #### B MP #### [facility] [address] [address] [address] Yoselin Rivera Urea nitrogen [Mass/Vol] 32.0 mg/dL Critically high 7.0-18.0 [facility] Comment on above: Performed By: #### B MP #### [facility] [address] [address] [address] Yoselin Rivera Urea nitrogen/Creatinine [Mass ratio] 23.9 mg/mg Normal [facility] Comment on above: Performed By: #### B MP #### [facility] [address] [place] [address] Dr. Yoselin Rivera 36on 06-04-2022 36 Does he need to restart potassium as well? [facility] 36on 06-03-2022 36 Patient report to cardiac rehab staff today that he has gained 8# since stopped lasix last week when he saw you in the office. He denies any SOB. Any recommendations? [facility] PROF 14(COMP METB)on 022 Albumin [Mass/Vol] 3.4 g/dL Normal 3.4-5.0 [facility] Comment on above: Performed By: #### H H #### [facility] [address] [place] [address] Dr. Yoselin Rivera Albumin/Globulin [Mass ratio] 1.0 {ratio} Normal [facility] Comment on above: Performed By: #### H H #### [facility] [address] [place] [address] Dr. Yoselin Rivera ALP [Catalytic activity/Vol] 79 U/L Normal 46-116 [facility] Comment on above: Performed By: #### H H #### [facility] [address] [place] [address] Dr. Yoselin Rivera ALT [Catalytic activity/Vol] 25 U/L Normal 16-63 [facility] Comment on above: Performed By: #### H H #### [facility] [address] [place] [address] Dr. Yoselin Rivera Anion gap [Moles/Vol] 10.7 mmol/L Normal [facility] Comment on above: Performed By: #### H H #### [facility] [address] [place] [address] Dr. Yoselin Rivera AST [Catalytic activity/Vol] 20 U/L Normal 15-37 [facility] Comment on above: Performed By: #### H H #### [facility] [address] [address] [address] Yoselin Rivera Bilirubin [Mass/Vol] 0.5 mg/dL Normal 0.2-1.0 [facility] Comment on above: Performed By: #### H H #### [facility] [address] [place] [address] Dr. Yoselin Rivera Calcium [Mass/Vol] 9.1 mg/dL Normal 8.5-10.1 [facility] Comment on above: Performed By: #### H H #### [facility] [address] [place] [address] Dr. Yoselin Rivera Chloride [Moles/Vol] 108 mmol/L Critically high 98-107 [facility] Comment on above: Performed By: #### H H #### [facility] [address] [place] [address] Dr. Yoselin Rivera CO2 [Moles/Vol] 28.8 mmol/L Normal 21.0-32.0 [facility] Comment on above: Performed By: #### H H #### [facility] [address] [place] [address] Dr. Yoselin Rivera Creatinine [Mass/Vol] 1.32 mg/dL Critically high 0.70-1.30 [facility] Comment on above: Performed By: #### H H #### [facility] [address] [place] [address] Dr. Yoselin Rivera EGFR-AF NEPALESE >60 Normal >=60 [facility] Comment on above: Performed By: #### H H #### [facility] [address] [place] [address] Dr. Yoselin Rivera EGFR-NON AF NEPALESE 53 mL/min/1.73m2 Critically low >=60 [facility] Comment on above: Performed By: #### H H #### [facility] [address] [place] [address] Dr. Yoselin Rivera Globulin (S) [Mass/Vol] 3.4 g/dL Normal [facility] Comment on above: Performed By: #### H H #### [facility] [address] [place] [address] Dr. Yoselin Rivera Glucose [Mass/Vol] 90 mg/dL Normal 74-106 [facility] Comment on above: Performed By: #### H H #### [facility] [address] [address] [address] Yoselin Rivera Potassium [Moles/Vol] 4.5 mmol/L Normal 3.5-5.1 [facility] Comment on above: Performed By: #### H H #### [facility] [address] [address] [address] Yoselin Rivera Protein [Mass/Vol] 6.8 g/dL Normal 6.4-8.2 [facility] Comment on above: Performed By: #### H H #### [facility] [address] [address] [address] Yoselin Rivera Sodium [Moles/Vol] 143 mmol/L Normal 136-145 [facility] Comment on above: Performed By: #### H H #### [facility] [address] [address] [address] Yoselin Rivera Urea nitrogen [Mass/Vol] 26.0 mg/dL Critically high 7.0-18.0 [facility] Comment on above: Performed By: #### H H #### [facility] [address] [address] [address] Yoselin Rivera Urea nitrogen/Creatinine [Mass ratio] 19.7 mg/mg Normal [facility] Comment on above: Performed By: #### H H #### [facility] [address] [address] [address] Yoselin Rivera Office Visiton 05-27-2022 Follow-up visit [id number] Hans Amin 1945 M Date Provider Department Center 05/27/2022 Nely-DONAVAN A[facility] Family History Problem Relation Age of Onset Diabetes Mother Coronary artery disease Father Other Sister Family Status - Relation Status Age at Mother Father Sister Level of Service:25934 DE OFFICE/OUTPATIENT ESTABLISHED LOW MDM 20-29 MIN Reason for Visit and Comments: Coronary Artery Disease [187] Normal [facility] FREE T4on 11-30-2022 Free T4 [Mass/Vol] 1.13 ng/dL Normal 0.76-1.46 [facility] Comment on above: Performed By: #### H H #### [facility] [address] [address] [address] Yoselin Rivera LIPID PROFILEon 05-22-2022 CHOL-HDL RATIO NORM SEE BELOW Normal [facility] Comment on above: Result Comment: 3.3 - 4.4 LOW RISK 4.4 - 7.1 AVERAGE RISK 7.1 - 11.0 MODERATE RISK >11.0 HIGH RISK Performed By: #### T SH, CMP, LIPID #### [facility] [address] [place], [place] [address] Dr. Yoselin Rivera Cholesterol [Mass/Vol] 155 mg/dL Normal <=200 [facility] Comment on above: Performed By: #### T SH, CMP, LIPID #### [facility] [address] [address] [address] Yoselin Rivera Cholesterol in HDL [Mass/Vol] 48 mg/dL Normal 40-60 [facility] Comment on above: Performed By: #### T SH, CMP, LIPID #### [facility] [address] [place], [place] [address] Dr. Yoselin Rivera Cholesterol in LDL [Mass/Vol] 72.8 mg/dL Normal [facility] Comment on above: Performed By: #### T SH, CMP, LIPID #### [facility] [address] [place], [place] [address] Dr. Yoselin Rivera Cholesterol.total/Cho lesterol in HDL [Mass ratio] 3.2 {ratio} Normal [facility] Comment on above: Performed By: #### T SH, CMP, LIPID #### [facility] [address] [place], [place] [address] Dr. Yoselin Rivera HDL NORMAL > or = 60 mg/dl - LO W CARDIOVASCULAR RISK <40 mg/dl - HIGH CARDIOVASCULAR RISK Normal [facility] Comment on above: Performed By: #### T SH, CMP, LIPID #### [facility] [address] [place], [place] [address] Dr. Yoselin Rivera LDL CALC NORMAL SEE BELOW Normal [facility] Comment on above: Result Comment: <100 mg/dl OPTIMAL 100 - 129 mg/dl NEAR OR ABOVE OPTIMAL 130 - 159 mg/dl BORDERLINE HIGH 160 - 189 mg/dl HIGH >190 mg/dl VERY HIGH Performed By: #### T SH, CMP, LIPID #### [facility] [address] [address] [address] Yoselin Rivera Triglyceride [Mass/Vol] 171 mg/dL Critically high <=150 [facility] Comment on above: Performed By: #### T SH, CMP, LIPID #### [facility] [address] [address] [address] Yoselin Rivera VLDL CALC 34.2 mg/dL Normal [facility] Comment on above: Performed By: #### T SH, CMP, LIPID #### [facility] [address] [place] [address] Dr. Yoselin Rivera PROF 14(COMP METB)on 022 Albumin [Mass/Vol] 3.6 g/dL Normal 3.4-5.0 [facility] Comment on above: Performed By: #### T SH, CMP, LIPID #### [facility] [address] [place] [address] Dr. Yoselin Rivera Albumin/Globulin [Mass ratio] 1.0 {ratio} Normal [facility] Comment on above: Performed By: #### T SH, CMP, LIPID #### [facility] [address] [place] [address] Dr. Yoselin Rivera ALP [Catalytic activity/Vol] 86 U/L Normal 46-116 [facility] Comment on above: Performed By: #### T SH, CMP, LIPID #### [facility] [address] [address] [address] Yoselin Rivera ALT [Catalytic activity/Vol] 30 U/L Normal 16-63 [facility] Comment on above: Performed By: #### T SH, CMP, LIPID #### [facility] [address] [place] [address] Dr. Yoselin Rivera Anion gap [Moles/Vol] 7.9 mmol/L Normal [facility] Comment on above: Performed By: #### T SH, CMP, LIPID #### [facility] [address] [address] [address] Yoselin Rivera AST [Catalytic activity/Vol] 19 U/L Normal 15-37 [facility] Comment on above: Performed By: #### T SH, CMP, LIPID #### [facility] [address] [address] [address] Yoselin Rivera Bilirubin [Mass/Vol] 0.5 mg/dL Normal 0.2-1.0 [facility] Comment on above: Performed By: #### T SH, CMP, LIPID #### [facility] [address] [address] [address] Yoselin Rivera Calcium [Mass/Vol] 9.5 mg/dL Normal 8.5-10.1 [facility] Comment on above: Performed By: #### T SH, CMP, LIPID #### [facility] [address] [address] [address] Yoselin Rviera Chloride [Moles/Vol] 106 mmol/L Normal 98-107 [facility] Comment on above: Performed By: #### T SH, CMP, LIPID #### [facility] [address] [address] [address] Yoselin Rivera CO2 [Moles/Vol] 34.3 mmol/L Critically high 21.0-32.0 [facility] Comment on above: Performed By: #### T SH, CMP, LIPID #### [facility] [address] [address] [address] Yoselin Rivera Creatinine [Mass/Vol] 1.49 mg/dL Critically high 0.70-1.30 [facility] Comment on above: Performed By: #### T SH, CMP, LIPID #### [facility] [address] [address] [address] Yoselin Rivera EGFR-AF NEPALESE 56 mL/min/1.73m2 Critically low >=60 [facility] Comment on above: Performed By: #### T SH, CMP, LIPID #### [facility] [address] [address] [address] Yoselin Rivera EGFR-NON AF NEPALESE 46 mL/min/1.73m2 Critically low >=60 [facility] Comment on above: Performed By: #### T SH, CMP, LIPID #### [facility] [address] [place] [address] Dr. Yoselin Rivera Globulin (S) [Mass/Vol] 3.7 g/dL Normal [facility] Comment on above: Performed By: #### T SH, CMP, LIPID #### [facility] [address] [place] [address] Dr. Yoselin Rivera Glucose [Mass/Vol] 107 mg/dL Critically high 74-106 [facility] Comment on above: Performed By: #### T SH, CMP, LIPID #### [facility] [address] [place] [address] Dr. Yoselin Rivera Potassium [Moles/Vol] 4.2 mmol/L Normal 3.5-5.1 [facility] Comment on above: Performed By: #### T SH, CMP, LIPID #### [facility] [address] [place] [address] Dr. Yoselin Rivera Protein [Mass/Vol] 7.3 g/dL Normal 6.4-8.2 [facility] Comment on above: Performed By: #### T SH, CMP, LIPID #### [facility] [address] [place] [address] Dr. Yoselin Rivera Sodium [Moles/Vol] 144 mmol/L Normal 136-145 [facility] Comment on above: Performed By: #### T SH, CMP, LIPID #### [facility] [address] [place] [address] Dr. Yoselin Rivera Urea nitrogen [Mass/Vol] 31.0 mg/dL Critically high 7.0-18.0 [facility] Comment on above: Performed By: #### T SH, CMP, LIPID #### [facility] [address] [place] [address] Dr. Yoselin Rivera Urea nitrogen/Creatinine [Mass ratio] 20.8 mg/mg Normal [facility] Comment on above: Performed By: #### T SH, CMP, LIPID #### [facility] [address] [place] [address] Dr. Yoselin Rivera TSHon 05-22-2022 TSH 4.222 uIU/mL Critically high 0.358-3.740 [facility] Comment on above: Performed By: #### T SH, CMP, LIPID #### [facility] [address] [place] [address] Dr. Yoselin Rivera XR CHEST 2 Von [...] IGNACIO JACKSON Date: 2022-05-22 08:39 Normal [facility] CBC AUTO DIFFon 04-26-2022 BASO # 0.1 103/ul Normal 0.0-0.1 [facility] Comment on above: Performed By: #### C BC #### [facility] [address] [place] [address] Dr. Yoselin Rivera Basophils/100 WBC (Bld) 0.9 % Normal 0.2-2.0 [facility] Comment on above: Performed By: #### C BC #### [facility] [address] [place] [address] Dr. Yoselin Rivera EO # 0.1 103/ul Normal 0.0-0.7 [facility] Comment on above: Performed By: #### C BC #### [facility] [address] [place] [address] Dr. Yoselin Rivera Eosinophils/100 WBC (Bld) 2.4 % Normal 0.9-7.0 [facility] Comment on above: Performed By: #### C BC #### [facility] [address] [place] [address] Dr. Yoselin Rivera Erythrocyte distribution width (RBC) [Ratio] 14.5 % Normal 11.0-15.0 [facility] Comment on above: Performed By: #### C BC #### [facility] [address] [place] [address] Dr. Yoselin Rivera Hematocrit (Bld) [Volume fraction] 36.4 % Critically low 42.0-54.0 [facility] Comment on above: Performed By: #### C BC #### [facility] [address] [place] [address] Dr. Yoselin Rivera Hemoglobin (Bld) [Mass/Vol] 11.9 g/dL Critically low 14.0-18.0 [facility] Comment on above: Performed By: #### C BC #### [facility] [address] [place] [address] Dr. Yoselin Rivera IG # 0.01 10e3/ul Normal 0.00-0.03 [facility] Comment on above: Performed By: #### C BC #### [facility] [address] [place] [address] Dr. Yoselin Rivera IG % 0.2 % Normal 0.0-0.5 [facility] Comment on above: Performed By: #### C BC #### [facility] [address] [place] [address] Dr. Yoselin Rivera LYMPH # 1.2 103/ul Normal 1.2-3.8 [facility] Comment on above: Performed By: #### C BC #### [facility] [address] [place] [address] Dr. Yoselin Rivera Lymphocytes/100 WBC (Bld) 21.1 % Normal 20.5-60.0 [facility] Comment on above: Performed By: #### C BC #### [facility] [address] [place] [address] Dr. Yoselin Rivera MANUAL DIFF REQ NO Normal [facility] [place] Comment on above: Performed By: #### C BC #### [facility] [address] [place] [address] Dr. Yoselin Rivera MCH (RBC) [Entitic mass] 30.4 pg Normal 25.9-34.0 [facility] Comment on above: Performed By: #### C BC #### [facility] [address] [id number] Yoselin Rivera MCHC (RBC) [Mass/Vol] 32.7 g/dL Normal 29.9-35.2 [facility] Comment on above: Performed By: #### C BC #### [facility] [address] [id number] Yoselin Rivera MCV (RBC) [Entitic vol] 93.1 fL Normal 80.0-94.0 [facility] Comment on above: Performed By: #### C BC #### [facility] [address] [address] [address] Yoselin Rivera MONO # 0.6 103/ul Normal 0.3-0.8 [facility] Comment on above: Performed By: #### C BC #### [facility] [address] [place] [address] Dr. Yoselin Rivera Monocytes/100 WBC (Bld) 11.6 % Normal 1.7-12.0 [facility] Comment on above: Performed By: #### C BC #### [facility] [address] [place] [address] Dr. Yoselin Rivera NEUT # 3.5 103/ul Normal 1.4-6.5 [facility] Comment on above: Performed By: #### C BC #### [facility] [address] [place] [address] Dr. Yoselin Rivera Neutrophils/100 WBC (Bld) 63.8 % Normal 43.0-75.0 [facility] Comment on above: Performed By: #### C BC #### [facility] [address] [place], [place] [id number] Dr. Yoselin Rivera Platelet mean volume (Bld) [Entitic vol] 10.8 fL Normal 9.5-13.5 [facility] Comment on above: Performed By: #### C BC #### [facility] [address] [place] [address] Dr. Yoselin Rivera PLT 178 103/ul Normal 150-450 [facility] Comment on above: Performed By: #### C BC #### [facility] [address] [address] [address] Yoselin Rivera RBC 3.91 106/ul Critically low 4.70-6.10 [facility] Comment on above: Performed By: #### C BC #### [facility] [address] [address] [address] Yoselin Rivera WBC 5.4 103/ul Normal 4.0-11.0 [facility] Comment on above: Performed By: #### C BC #### [facility] [address] [address] [address] Yoselin Rivera PROF CHEM 8 (BAS METB)on Anion gap [Moles/Vol] 6.6 mmol/L Normal [facility] Comment on above: Performed By: #### B MP #### [facility] [address] [place] [address] Dr. Yoselin Rivera Calcium [Mass/Vol] 9.3 mg/dL Normal 8.5-10.1 [facility] Comment on above: Performed By: #### B MP #### [facility] [address] [place] [address] Dr. Yoselin Rivera Chloride [Moles/Vol] 105 mmol/L Normal 98-107 [facility] Comment on above: Performed By: #### B MP #### [facility] [address] [place] [address] Dr. Yoselin Rivera CO2 [Moles/Vol] 32.8 mmol/L Critically high 21.0-32.0 [facility] Comment on above: Performed By: #### B MP #### [facility] [address] [place] [address] Dr. Yoselin Rivera Creatinine [Mass/Vol] 1.59 mg/dL Critically high 0.70-1.30 [facility] Comment on above: Performed By: #### B MP #### [facility] [address] [place] [address] Dr. Yoselin Rivera EGFR-AF NEPALESE 52 mL/min/1.73m2 Critically low >=60 [facility] Comment on above: Performed By: #### B MP #### [facility] [address] [address] [address] Yoselin Rivera EGFR-NON AF NEPALESE 43 mL/min/1.73m2 Critically low >=60 [facility] Comment on above: Performed By: #### B MP #### [facility] [address] [address] [address] Yoselin Rivera Glucose [Mass/Vol] 88 mg/dL Normal 74-106 [facility] Comment on above: Performed By: #### B MP #### [facility] [address] [address] [address] Yoselin Rivera Potassium [Moles/Vol] 4.4 mmol/L Normal 3.5-5.1 [facility] Comment on above: Performed By: #### B MP #### [facility] [address] [address] [address] Yoselin Rivera Sodium [Moles/Vol] 140 mmol/L Normal 136-145 [facility] Comment on above: Performed By: #### B MP #### [facility] [address] [address] [address] Yoselin Rivera Urea nitrogen [Mass/Vol] 37.0 mg/dL Critically high 7.0-18.0 [facility] Comment on above: Performed By: #### B MP #### [facility] [address] [address] [address] Yoselin Rivera Urea nitrogen/Creatinine [Mass ratio] 23.3 mg/mg Normal [facility] Comment on above: Performed By: #### B MP #### [facility] [address] [address] [address] Yoselin Rivera BASIC METABOLIC PANELon 09-0 Calcium [Mass/Vol] 9.5 mg/dL Normal 8.6-10.3 [facility] Comment on above: Order Comment: evalu ate for Effusion Performed By: #### 0 0071 ####[facility] [place] [address], [facility] Chloride [Moles/Vol] 99 mmol/L Normal 98-107 [facility] Comment on above: Order Comment: evalu ate for Effusion Performed By: #### 0 0071 ####[facility] [facility] [address], [facility] CO2 [Moles/Vol] 28 mmol/L Normal 21-31 [facility] Comment on above: Order Comment: evalu ate for Effusion Performed By: #### 0 0071 ####[facility] [facility] [address], [facility] Creatinine [Mass/Vol] 1.51 mg/dL High 0.70-1.30 [facility] Comment on above: Order Comment: evalu ate for Effusion Performed By: #### 0 0071 ####[facility] [facility].[address] EGFR 48 ml/min/1.73sq m Abnormal >60 [facility] Comment on above: Order Comment: evalu ate for Effusion Result Comment: [facility]'s estimated glomerular filtration rate (eGFR) will no [...] of individuals. Performed By: #### 0 0071 ####[facility] [facility] [address], [facility] Glucose [Mass/Vol] 129 mg/dL High 70-100 [facility] Comment on above: Order Comment: evalu ate for Effusion Performed By: #### 0 0071 ####[facility] [facility] [address], [facility] Potassium [Moles/Vol] 3.4 mmol/L Low 3.5-5.1 [facility] Comment on above: Order Comment: evalu ate for Effusion Performed By: #### 0 0071 ####[facility] [facility] [address], [facility] Sodium [Moles/Vol] 138 mmol/L Normal 136-145 [facility] Comment on above: Order Comment: evalu ate for Effusion Performed By: #### 0 0071 ####[facility] [facility] [address], [facility] Urea nitrogen [Mass/Vol] 71 mg/dL High 7-25 [facility] Comment on above: Order Comment: evalu ate for Effusion Performed By: #### 0 0071 ####[facility] [facility].[address] POC SARS COV2 ANTIGEN NEGATI VEon 02-28-2022 POC SARS COV2 ANTIGEN NEG Negative Normal NEGATIVE [facility] Comment on above: Result Comment: Nega tive [...] antigen from SARS-CoV-2 in direct nasopharyngeal swab (TEMPERATURE INSPECTOR) specimens from individuals who are suspected [...] Accreditation. Performed By: #### 3 [id number] #### [facility] [address] [facility]. [address] BASIC METABOLIC PANELon 09-0 Calcium [Mass/Vol] 9.4 mg/dL Normal 8.6-10.3 [facility] Comment on above: Order Comment: Check Chest Tube Position, ON ARRIVAL TO CVU Performed By: #### 4 1000, [id number], [id number] ####[facility] [place] [address], [facility] Chloride [Moles/Vol] 98 mmol/L Normal 98-107 [facility] Comment on above: Order Comment: Check Chest Tube Position, ON ARRIVAL TO CVU Performed By: #### 4 1000, 17126, 24551 ####[facility] [place] [address], [facility] CO2 [Moles/Vol] 28 mmol/L Normal 21-31 [facility] Comment on above: Order Comment: Check Chest Tube Position, ON ARRIVAL TO CVU Performed By: #### 4 1000, 41837, [id number] ####[facility] [place] [address], [facility] Creatinine [Mass/Vol] 1.63 mg/dL High 0.70-1.30 [facility] Comment on above: Order Comment: Check Chest Tube Position, ON ARRIVAL TO CVU Performed By: #### 4 1000, 59604, 68058 ####[facility] EGFR 44 ml/min/1.73sq m Abnormal >60 [facility] Comment on above: Order Comment: Check Chest Tube Position, ON ARRIVAL TO CVU Result Comment: [facility]'s estimated glomerular filtration rate (eGFR) will no [...] of individuals. Performed By: #### 4 1000, 93120, 42503 ####[facility] [facility] [place] [address], [facility] Glucose [Mass/Vol] 118 mg/dL High 70-100 [facility] Comment on above: Order Comment: Check Chest Tube Position, ON ARRIVAL TO CVU Performed By: #### 4 1000, , 17241 ####[facility] [place] [address], [facility] Potassium [Moles/Vol] 3.6 mmol/L Normal 3.5-5.1 [facility] Comment on above: Order Comment: Check Chest Tube Position, ON ARRIVAL TO CVU Performed By: #### 4 1000, , [id number] ####[facility] [facility] [place] [address], [facility] Sodium [Moles/Vol] 137 mmol/L Normal 136-145 [facility] Comment on above: Order Comment: Check Chest Tube Position, ON ARRIVAL TO CVU Performed By: #### 4 1000, , 14682 ####[facility] [facility] [place] [address], [facility] Urea nitrogen [Mass/Vol] 77 mg/dL High 7-25 [facility] Comment on above: Order Comment: Check Chest Tube Position, ON ARRIVAL TO CVU Performed By: #### 4 1000, , 11298 ####[facility] [facility].[address] CBC COMPLETE BLOOD COUNTon 0 02-27-2022 Erythrocyte distribution width (RBC) [Ratio] 14.8 % Normal 11.5-15.0 [facility] Comment on above: Order Comment: No: D o not add to previous draw Performed By: #### 5 0608 #### [facility] [address] [place] [address], [facility] Hematocrit (Bld) [Volume fraction] 30.2 % Low 39.0-50.0 [facility] Comment on above: Order Comment: No: D o not add to previous draw Performed By: #### 5 0608 #### [facility] [address] [place] [address], [facility] Hemoglobin (Bld) [Mass/Vol] 10.2 g/dL Low 13.0-17.0 [facility] Comment on above: Order Comment: No: D o not add to previous draw Performed By: #### 5 0608 #### [facility] [address] [facility] [address], [facility] MCH (RBC) [Entitic mass] 30.9 pg Normal 27.0-33.0 [facility] Comment on above: Order Comment: No: D o not add to previous draw Performed By: #### 5 0608 #### [facility] [address] [facility] [place] [address], [facility] MCHC (RBC) [Mass/Vol] 33.8 g/dL Normal 32.0-35.0 [facility] Comment on above: Order Comment: No: D o not add to previous draw Performed By: #### 5 0608 #### [facility] [address] [facility] [place] [address], [facility] MCV (RBC) [Entitic vol] 91.5 fL Normal 82.0-98.0 [facility] Comment on above: Order Comment: No: D o not add to previous draw Performed By: #### 5 0608 #### [facility] [address] [facility] [place] [address], [facility] Nucleated RBC/100 WBC (Bld) [Ratio] 0 % Normal 0-0 [facility] Comment on above: Order Comment: No: D o not add to previous draw Performed By: #### 5 0608 #### [facility] [address] [place] [address], [facility] PLAT CNT 176 10*3/uL Normal 150-400 [facility] Comment on above: Order Comment: No: D o not add to previous draw Performed By: #### 5 0608 #### [facility] [address] [place] [address], [facility] RBC (Bld) [#/Vol] 3.30 10*6/uL Low 4.20-5.70 [facility] Comment on above: Order Comment: No: D o not add to previous draw Performed By: #### 5 0608 #### [facility] [address] [place], [place] [address], [facility] WBC (Bld) [#/Vol] 6.82 10*3/uL Normal 4.00-10.60 [facility] Comment on above: Order Comment: No: D o not add to previous draw Performed By: #### 5 0608 #### [facility] [address] Cardiovascular Lab Reporton 02-27-2022 Cardiovascular Lab Report [facility] #: [id number] Department of Physician: Nora Saxena M.D. Division of Service Date: 02/27/2022 Cardiology Birthdate: 1945 Adult Cardiovascular Room #: 3AB [id number] [place] [address] Cardiovascular Laboratory Report PROCEDURE: Transesophageal echocardiogram and cardioversion. INDICATION: Atrial fibrillation. FELLOW: Amanda Engel MD. PROCEDURE IN DETAIL: An informed consent was obtained from the patient after explaining the indication, risk and benefits, and alternatives. The patient understood, and agreed, and signed the consent form. The patient was brought to the dentures lab technician and FARHEEN (transesophageal echocardiogram) was performed under [...] P/Amanda Engel MD Date Trans: 02/27/2022 02:37 P/mmo [id number] Normal [facility] MAGNESIUM BLOODon 02-27-2022 Magnesium [Mass/Vol] 2.6 mg/dL Normal 1.9-2.7 [facility] Comment on above: Order Comment: Check Chest Tube Position, ON ARRIVAL TO CVU Performed By: #### 4 1000, 89693, 08661 ####[facility] PHOSPHORUS BLOODon Phosphate [Mass/Vol] 4.7 mg/dL Normal 2.5-5.0 [facility] Comment on above: Order Comment: Check Chest Tube Position, ON ARRIVAL TO CVU Performed By: #### 4 1000, 14079, 03263 ####[place] [id number] [address] PORTABLE CHEST 1 VIEWon PORTABLE CHEST 1 VIEW [facility] Department of Radiology [address] [place] [address] ======== Patient Name: IGNACIO AMIN : 1945 Sex: M Age: Race: White Pt. Location: [place] [address] Patient Status: I Ordered Date: 02/27/2022 5:00:00 [...] chest. Electronically signed: Mahesh Sanchez. Transcribed by: [email or web address], User Resident: Electronically Signed by: MAHESH SANCHEZ @ 02/27/2022 07:47 AM Normal [facility] Comment on above: Order Comment: Check Chest Tube Position, ON ARRIVAL TO CVU BASIC METABOLIC PANELon Calcium [Mass/Vol] 9.3 mg/dL Normal 8.6-10.3 [facility] Comment on above: Order Comment: Check Chest Tube Position, ON ARRIVAL TO CVU Performed By: #### 0 0071, 05716, 70724 ####[facility] [place] [address], [facility] Chloride [Moles/Vol] 98 mmol/L Normal 98-107 [facility] Comment on above: Order Comment: Check Chest Tube Position, ON ARRIVAL TO CVU Performed By: #### 0 0071, 68220, 36454 ####[facility] [id number] [place] [address], [facility] CO2 [Moles/Vol] 29 mmol/L Normal 21-31 [facility] Comment on above: Order Comment: Check Chest Tube Position, ON ARRIVAL TO CVU Performed By: #### 0 0071, 88118, 48770 ####[facility] [place] [address], [place] Creatinine [Mass/Vol] 2.10 mg/dL High 0.70-1.30 [facility] Comment on above: Order Comment: Check Chest Tube Position, ON ARRIVAL TO CVU Performed By: #### 0 0071, 14384, 37707 ####[facility] [place] [address], [facility] EGFR 32 ml/min/1.73sq m Abnormal >60 [facility] Comment on above: Order Comment: Check Chest Tube Position, ON ARRIVAL TO CVU Result Comment: [facility]'s estimated glomerular filtration rate (eGFR) will no [...] of individuals. Performed By: #### 0 0071, 22614, 44035 ####[facility] [place] [address], [place] Glucose [Mass/Vol] 115 mg/dL High 70-100 [facility] Comment on above: Order Comment: Check Chest Tube Position, ON ARRIVAL TO CVU Performed By: #### 0 0071, 76307, 34525 ####[facility] [place] [address], [place] Potassium [Moles/Vol] 4.7 mmol/L Normal 3.5-5.1 [facility] Comment on above: Order Comment: Check Chest Tube Position, ON ARRIVAL TO CVU Performed By: #### 0 0071, 29219, 70204 ####[facility] [place] [address], [facility] Sodium [Moles/Vol] 137 mmol/L Normal 136-145 [facility] Comment on above: Order Comment: Check Chest Tube Position, ON ARRIVAL TO CVU Performed By: #### 0 0071, 09018, 17310 ####[facility] [place] [address], [facility] Urea nitrogen [Mass/Vol] 80 mg/dL High 7-25 [facility] Comment on above: Order Comment: Check Chest Tube Position, ON ARRIVAL TO CVU Performed By: #### 0 0071, 44749, 01299 ####[facility] CBC COMPLETE BLOOD COUNTon 0 02-26-2022 Erythrocyte distribution width (RBC) [Ratio] 14.8 % Normal 11.5-15.0 [facility] Comment on above: Order Comment: No: D o not add to previous draw Performed By: #### 5 0608 #### [facility] [address] [place] [address], [facility] Hematocrit (Bld) [Volume fraction] 29.0 % Low 39.0-50.0 [facility] Comment on above: Order Comment: No: D o not add to previous draw Performed By: #### 5 0608 #### [facility] [address] [place] [id number], [facility] Hemoglobin (Bld) [Mass/Vol] 9.6 g/dL Low 13.0-17.0 [facility] Comment on above: Order Comment: No: D o not add to previous draw Performed By: #### 5 0608 #### [facility] [address] [place] [address], [facility] IMM PLATELET FRAC 6.2 % Normal 0.8-6.3 [facility] Comment on above: Order Comment: No: D o not add to previous draw Performed By: #### 5 0608 #### [facility] [address] [place] [address], [facility] MCH (RBC) [Entitic mass] 30.4 pg Normal 27.0-33.0 [facility] Comment on above: Order Comment: No: D o not add to previous draw Performed By: #### 5 0608 #### [facility] [address] [place] [address], [facility] MCHC (RBC) [Mass/Vol] 33.1 g/dL Normal 32.0-35.0 [facility] Comment on above: Order Comment: No: D o not add to previous draw Performed By: #### 5 0608 #### [facility] 3000 [facility] [address], [facility] MCV (RBC) [Entitic vol] 91.8 fL Normal 82.0-98.0 [facility] Comment on above: Order Comment: No: D o not add to previous draw Performed By: #### 5 0608 #### [facility] [address] [facility] [address], [facility] Nucleated RBC/100 WBC (Bld) [Ratio] 0 % Normal 0-0 [facility] Comment on above: Order Comment: No: D o not add to previous draw Performed By: #### 5 0608 #### [facility] [address] [facility] [address], [facility] PLAT CNT 137 10*3/uL Low 150-400 [facility] Comment on above: Order Comment: No: D o not add to previous draw Performed By: #### 5 0608 #### [facility] [address] [facility] [place] [address], [facility] RBC (Bld) [#/Vol] 3.16 10*6/uL Low 4.20-5.70 [facility] Comment on above: Order Comment: No: D o not add to previous draw Performed By: #### 5 0608 #### [facility] [address] WBC (Bld) [#/Vol] 7.11 10*3/uL Normal 4.00-10.60 [facility] Comment on above: Order Comment: No: D o not add to previous draw Performed By: #### 5 0608 #### [facility] [address] [place] [address], [facility] MAGNESIUM BLOODon 02-26-2022 Magnesium [Mass/Vol] 2.4 mg/dL Normal 1.9-2.7 [facility] Comment on above: Order Comment: Check Chest Tube Position, ON ARRIVAL TO CVU Performed By: #### 0 0071, 78082, 46494 ####[facility] PHOSPHORUS BLOODon Phosphate [Mass/Vol] 5.2 mg/dL High 2.5-5.0 [facility] Comment on above: Order Comment: Check Chest Tube Position, ON ARRIVAL TO CVU Performed By: #### 0 0071, 65033, 82458 ####[facility] [place], [place] [id number] [place] [address] PORTABLE CHEST 1 VIEWon PORTABLE CHEST 1 VIEW [facility] Department of Radiology [address] [place] [address] ======== Patient Name: IGNACIO AMIN : 1945 Sex: M Age: Race: White Pt. Location: [place] [address] Patient Status: I Ordered Date: 02/26/2022 5:00:00 [...] effusions. Electronically signed: Mahesh Sanchez. Transcribed by: [email or web address], User Resident: Electronically Signed by: MAHESH SANCHEZ @ 02/26/2022 02:50 PM Normal [facility] Comment on above: Order Comment: evalu ate for Effusion US RENAL WITH BLADDERon US RENAL WITH BLADDER [facility] Department of Radiology [address] [place] [address] ======== Patient Name: IGNACIO AMIN : 1945 Sex: M Age: Race: White Pt. Location: [place] [address] Patient Status: I Ordered Date: 02/23/2022 12:10:00 [...] noted. Electronically signed: Dennis Michel. Transcribed by: [email or web address], User Resident: Electronically Signed by: DENNIS MICHEL @ 02/26/2022 09:36 PM Normal [facility] Comment on above: Order Comment: Other BASIC METABOLIC PANELon 090 Chloride [Moles/Vol] 97 mmol/L Low 98-107 [facility] Comment on above: Order Comment: Evalu ate for Pneumothorax Performed By: #### 1 0070, 03789, 69943 ####[facility] [id number] [place] [address], [facility] CO2 [Moles/Vol] 29 mmol/L Normal 21-31 [facility] Comment on above: Order Comment: Evalu ate for Pneumothorax Performed By: #### 1 0070, 63299, 31212 ####[facility] [place] [address], [facility] Creatinine [Mass/Vol] 2.05 mg/dL High 0.70-1.30 [facility] Comment on above: Order Comment: Evalu ate for Pneumothorax Performed By: #### 1 0070, 39083, 86435 ####[facility] [facility] [place] [address], [facility] EGFR 33 ml/min/1.73sq m Abnormal >60 [facility] Comment on above: Order Comment: Evalu ate for Pneumothorax Result Comment: [facility]'s estimated glomerular filtration rate (eGFR) will no [...] of individuals. Performed By: #### 1 0070, 02968, 74483 ####[facility] [facility] [place] [address], [facility] Glucose [Mass/Vol] 131 mg/dL High 70-100 [facility] Comment on above: Order Comment: Evalu ate for Pneumothorax Performed By: #### 1 0070, 49261, 45356 ####[facility] [place] [address], [facility] Potassium [Moles/Vol] 3.5 mmol/L Normal 3.5-5.1 [facility] Comment on above: Order Comment: Evalu ate for Pneumothorax Performed By: #### 1 0070, 99883, 08002 ####[facility] [id number], [facility] Sodium [Moles/Vol] 137 mmol/L Normal 136-145 [facility] Comment on above: Order Comment: Evalu ate for Pneumothorax Performed By: #### 1 0070, 96934, 74699 ####[facility] [place] [address], [place] Urea nitrogen [Mass/Vol] 75 mg/dL High 7-25 [facility] Comment on above: Order Comment: Evalu ate for Pneumothorax Performed By: #### 1 0070, 88750, 56821 ####[facility] [place] [address], [place] Calcium [Mass/Vol] 9.0 mg/dL Normal 8.6-10.3 [facility] Comment on above: Order Comment: Evalu ate for Pneumothorax Performed By: #### 1 0070, 04941, 22000 ####[facility] [place] [address], [facility] Order Comment: Check Chest Tube Position, ON ARRIVAL TO CVU Performed By: #### 4 1000, , 51452 ####[facility] [place] [address], [place] Chloride [Moles/Vol] 96 mmol/L Low 98-107 [facility] Comment on above: Order Comment: Check Chest Tube Position, ON ARRIVAL TO CVU Performed By: #### 4 1000, 22916, 35561 ####[facility] [place] [address], [place] CO2 [Moles/Vol] 27 mmol/L Normal 21-31 [facility] Comment on above: Order Comment: Check Chest Tube Position, ON ARRIVAL TO CVU Performed By: #### 4 1000, 89650, 92921 ####[facility] [place] [address], [facility] Creatinine [Mass/Vol] 2.09 mg/dL High 0.70-1.30 [facility] Comment on above: Order Comment: Check Chest Tube Position, ON ARRIVAL TO CVU Performed By: #### 4 1000, 56314, 61521 ####[facility] [facility] [address], [facility] EGFR 32 ml/min/1.73sq m Abnormal >60 [facility] Comment on above: Order Comment: Check Chest Tube Position, ON ARRIVAL TO CVU Result Comment: [facility]'s estimated glomerular filtration rate (eGFR) will no [...] of individuals. Performed By: #### 4 1000, 65689, 47409 ####[facility] [facility] [address], [facility] Glucose [Mass/Vol] 120 mg/dL High 70-100 [facility] Comment on above: Order Comment: Check Chest Tube Position, ON ARRIVAL TO CVU Performed By: #### 4 1000, 33409, 60187 ####[facility] [facility] [address], [facility] Potassium [Moles/Vol] 3.7 mmol/L Normal 3.5-5.1 [facility] Comment on above: Order Comment: Check Chest Tube Position, ON ARRIVAL TO CVU Performed By: #### 4 1000, 64826, 65869 ####[facility] [facility] [place] [address], [facility] Sodium [Moles/Vol] 135 mmol/L Low 136-145 [facility] Comment on above: Order Comment: Check Chest Tube Position, ON ARRIVAL TO CVU Performed By: #### 4 1000, 88624, 39671 ####[facility] [place] [address], [place] Urea nitrogen [Mass/Vol] 67 mg/dL High 7-25 [facility] Comment on above: Order Comment: Check Chest Tube Position, ON ARRIVAL TO CVU Performed By: #### 4 1000, 43914, 99665 ####[facility] [place] [address], [place] Calcium [Mass/Vol] 9.2 mg/dL Normal 8.6-10.3 [facility] Comment on above: Order Comment: No: D o not add to previous draw Criteria for reflexing a culture was not met. Please call the lab at [phone] within 24 hours of collection time if culture is needed Performed By: #### 3 0965 #### [facility] [address] [place] [address], [place] Chloride [Moles/Vol] 96 mmol/L Low 98-107 [facility] Comment on above: Order Comment: No: D o not add to previous draw Criteria for reflexing a culture was not met. Please call the lab at [phone] within 24 hours of collection time if culture is needed Performed By: #### 3 0965 #### [facility] [address] [place] [address], [place] CO2 [Moles/Vol] 27 mmol/L Normal 21-31 [facility] Comment on above: Order Comment: No: D o not add to previous draw Criteria for reflexing a culture was not met. Please call the lab at [phone] within 24 hours of collection time if culture is needed Performed By: #### 3 0965 #### [facility] [address] [place] [address], [place] Creatinine [Mass/Vol] 2.13 mg/dL High 0.70-1.30 [facility] Comment on above: Order Comment: No: D o not add to previous draw Criteria for reflexing a culture was not met. Please call the lab at [phone] within 24 hours of collection time if culture is needed Performed By: #### 3 0965 #### [facility] [address] [facility] [place] [address], [facility] EGFR 32 ml/min/1.73sq m Abnormal >60 [facility] Comment on above: Order Comment: No: D o not add to previous draw Criteria for reflexing a culture was not met. Please call the lab at [phone] within 24 hours of collection time if culture is needed Result Comment: [facility]'s estimated glomerular filtration rate (eGFR) will no [...] individuals. Performed By: #### 3 0965 #### [facility] [address] [facility] [place] [address], [facility] Glucose [Mass/Vol] 96 mg/dL Normal 70-100 [facility] Comment on above: Order Comment: No: D o not add to previous draw Criteria for reflexing a culture was not met. Please call the lab at [phone] within 24 hours of collection time if culture is needed Performed By: #### 3 0965 #### [facility] [address] [place] [address], [facility] Potassium [Moles/Vol] 3.9 mmol/L Normal 3.5-5.1 [facility] Comment on above: Order Comment: No: D o not add to previous draw Criteria for reflexing a culture was not met. Please call the lab at [phone] within 24 hours of collection time if culture is needed Performed By: #### 3 0965 #### [facility] [address] [place] [address], [place] Sodium [Moles/Vol] 134 mmol/L Low 136-145 [facility] Comment on above: Order Comment: No: D o not add to previous draw Criteria for reflexing a culture was not met. Please call the lab at [phone] within 24 hours of collection time if culture is needed Performed By: #### 3 0965 #### [facility] [address] Urea nitrogen [Mass/Vol] 67 mg/dL High 7-25 [facility] Comment on above: Order Comment: No: D o not add to previous draw Criteria for reflexing a culture was not met. Please call the lab at [phone] within 24 hours of collection time if culture is needed Performed By: #### 3 0965 #### [facility] [address] [facility] CBC COMPLETE BLOOD COUNTon 02-25-2022 Erythrocyte distribution width (RBC) [Ratio] 14.7 % Normal 11.5-15.0 [facility] Comment on above: Order Comment: Check Chest Tube Position, ON ARRIVAL TO CVU Performed By: #### 5 0608 ####[facility] Hematocrit (Bld) [Volume fraction] 28.2 % Low 39.0-50.0 [facility] Comment on above: Order Comment: Check Chest Tube Position, ON ARRIVAL TO CVU Performed By: #### 5 0608 ####[facility] Hemoglobin (Bld) [Mass/Vol] 9.7 g/dL Low 13.0-17.0 [facility] Comment on above: Order Comment: Check Chest Tube Position, ON ARRIVAL TO CVU Performed By: #### 5 0608 ####[facility] [place] [address], [facility] IMM PLATELET FRAC 8.0 % High 0.8-6.3 [facility] Comment on above: Order Comment: Check Chest Tube Position, ON ARRIVAL TO CVU Performed By: #### 5 0608 ####[facility] MCH (RBC) [Entitic mass] 31.2 pg Normal 27.0-33.0 [facility] Comment on above: Order Comment: Check Chest Tube Position, ON ARRIVAL TO CVU Performed By: #### 5 0608 ####[facility] [place] [address] MCHC (RBC) [Mass/Vol] 34.4 g/dL Normal 32.0-35.0 [facility] Comment on above: Order Comment: Check Chest Tube Position, ON ARRIVAL TO CVU Performed By: #### 5 0608 ####[address] MCV (RBC) [Entitic vol] 90.7 fL Normal 82.0-98.0 [facility] Comment on above: Order Comment: Check Chest Tube Position, ON ARRIVAL TO CVU Performed By: #### 5 0608 ####[address] Nucleated RBC/100 WBC (Bld) [Ratio] 0 % Normal 0-0 [facility] Comment on above: Order Comment: Check Chest Tube Position, ON ARRIVAL TO CVU Performed By: #### 5 0608 ####[facility] PLAT CNT 111 10*3/uL Low 150-400 [facility] Comment on above: Order Comment: Check Chest Tube Position, ON ARRIVAL TO CVU Performed By: #### 5 0608 ####[address] RBC (Bld) [#/Vol] 3.11 10*6/uL Low 4.20-5.70 [facility] Comment on above: Order Comment: Check Chest Tube Position, ON ARRIVAL TO CVU Performed By: #### 5 0608 ####[facility] [place] [address], [facility] WBC (Bld) [#/Vol] 6.70 10*3/uL Normal 4.00-10.60 [facility] Comment on above: Order Comment: Check Chest Tube Position, ON ARRIVAL TO CVU Performed By: #### 5 0608 ####[facility] [place] [address], [facility] MAGNESIUM BLOODon 02-25-2022 Magnesium [Mass/Vol] 2.3 mg/dL Normal 1.9-2.7 [facility] Comment on above: Order Comment: Evalu ate for Pneumothorax Performed By: #### 1 0070, 84525, 11218 ####[facility] Magnesium [Mass/Vol] 2.4 mg/dL Normal 1.9-2.7 [facility] Comment on above: Order Comment: Check Chest Tube Position, ON ARRIVAL TO CVU Performed By: #### 4 1000, 22158, 75834 ####[facility] [place] [address], [facility] Magnesium [Mass/Vol] 2.5 mg/dL Normal 1.9-2.7 [facility] Comment on above: Order Comment: No: D o not add to previous draw Criteria for reflexing a culture was not met. Please call the lab at [phone] within 24 hours of collection time if culture is needed Performed By: #### 3 0965 #### [facility] [address] [place] [address], [place] PHOSPHORUS BLOODon Phosphate [Mass/Vol] 5.1 mg/dL High 2.5-5.0 [facility] Comment on above: Order Comment: Evalu ate for Pneumothorax Performed By: #### 1 0070, 57783, 80151 ####[facility] [place] [address], [facility] Phosphate [Mass/Vol] 4.9 mg/dL Normal 2.5-5.0 [facility] Comment on above: Order Comment: Check Chest Tube Position, ON ARRIVAL TO CVU Performed By: #### 4 1000, 95705, 57029 ####[facility] [place] [address], [facility] Phosphate [Mass/Vol] 4.9 mg/dL Normal 2.5-5.0 [facility] Comment on above: Order Comment: No: D o not add to previous draw Criteria for reflexing a culture was not met. Please call the lab at [phone] within 24 hours of collection time if culture is needed Performed By: #### 3 0965 #### [facility] [address] [place] [address], [facility] PORTABLE CHEST 1 VIEWon PORTABLE CHEST 1 VIEW [facility] Department of Radiology [address] [place] [id number] ======== Patient Name: IGNACIO AMIN : 1945 Sex: M Age: Race: White Pt. Location: [place] [address] Patient Status: I Ordered Date: 02/25/2022 7:00:00 [...] chest. Electronically signed: Mahesh Sanchez. Transcribed by: [email or web address], User Resident: Electronically Signed by: MAHESH SANCHEZ @ 02/25/2022 08:33 AM Normal [facility] Comment on above: Order Comment: Evalu ate for Pneumothorax ARTERIAL BLOOD GAS W/COOXon 02-24-2022 BASE EXCESS -1 mmol/L Normal -2-3 [facility] Comment on above: Performed By: #### 3 0739 #### [facility] [address] [place] [address], [facility] BILEVEL 12 Normal [facility] Comment on above: Performed By: #### 3 0739 #### [facility] [address] [place] [address], [place] COHB 1.0 % Normal 0.0-1.5 [facility] Comment on above: Performed By: #### 3 0739 #### [facility] [address] [place] [address], [place] DELIVERY SYSTEMS BI-PAP Normal [facility] Comment on above: Performed By: #### 3 0739 #### [facility] [address] [place] [address], [place] FIO2 50 % Normal [facility] Comment on above: Performed By: #### 3 0739 #### [facility] [address] [place] [address], [facility] HCO3 (Bld) [Moles/Vol] 24 mmol/L Normal 21-28 [facility] Comment on above: Performed By: #### 3 0739 #### [facility] [address] [place] [address], [facility] METHB 0.9 % Normal 0.0-1.5 [facility] Comment on above: Performed By: #### 3 0739 #### [facility] [address] [place] [address], [facility] MIN VOLUME 9.8 Normal [facility] Comment on above: Performed By: #### 3 0739 #### [facility] [address] [place] [address], [facility] MODALITY SPONTANEOUS/TIMED Normal [facility] Comment on above: Performed By: #### 3 0739 #### [facility] [address] [place] [address], [facility] Oxygen (Bld) [Partial pressure] 104 mm[Hg] Normal 83-108 [facility] Comment on above: Performed By: #### 3 0739 #### [facility] [address] [place] [address], [facility] Oxygen saturation in Blood 97.1 % High 94.0-97.0 [facility] Comment on above: Performed By: #### 3 0739 #### [facility] [address] [place] [address], [facility] PCO2 39 mmHg Normal 35-45 [facility] Comment on above: Performed By: #### 3 0739 #### [facility] [address] [place] [address], [facility] PEEP 6.0 CMH20 Normal [facility] Comment on above: Performed By: #### 3 0739 #### [facility] [address] [place] [address], [place] pH (Bld) 7.39 [pH] Normal 7.35-7.45 [facility] Comment on above: Performed By: #### 3 0739 #### [facility] [address] [place] [address], [facility] Respiratory rate 14 /min Normal [facility] Comment on above: Performed By: #### 3 0739 #### [facility] [address] [place] [address], [facility] THB 10.1 g/dL Low 12.0-16.3 [facility] Comment on above: Performed By: #### 3 0739 #### [facility] [address] [place] [address], [facility] BASIC METABOLIC PANELon 09-0 -2021 Calcium [Mass/Vol] 8.8 mg/dL Normal 8.6-10.3 [facility] Comment on above: Order Comment: No: D o not add to previous draw Performed By: #### 3 0739 #### [facility] [address] [place] [address], [facility] Chloride [Moles/Vol] 96 mmol/L Low 98-107 [facility] Comment on above: Order Comment: No: D o not add to previous draw Performed By: #### 3 0739 #### [facility] [address] [place] [address], [facility] CO2 [Moles/Vol] 22 mmol/L Normal 21-31 [facility] Comment on above: Order Comment: No: D o not add to previous draw Performed By: #### 3 0739 #### [facility] [address] [place] [address], [facility] Creatinine [Mass/Vol] 2.04 mg/dL High 0.70-1.30 [facility] Comment on above: Order Comment: No: D o not add to previous draw Performed By: #### 3 0739 #### [facility] [address] [place] [address], [facility] EGFR 33 ml/min/1.73sq m Abnormal >60 [facility] Comment on above: Order Comment: No: D o not add to previous draw Result Comment: [facility]'s estimated glomerular filtration rate (eGFR) will no [...] individuals. Performed By: #### 3 0739 #### [facility] [address] [place] [id number], [facility] Glucose [Mass/Vol] 204 mg/dL High 70-100 [facility] Comment on above: Order Comment: No: D o not add to previous draw Performed By: #### 3 0739 #### [facility] [address] [place] [address], [facility] Potassium [Moles/Vol] 3.6 mmol/L Normal 3.5-5.1 [facility] Comment on above: Order Comment: No: D o not add to previous draw Performed By: #### 3 0739 #### [facility] [address] [place] [address], [place] Sodium [Moles/Vol] 131 mmol/L Low 136-145 [facility] Comment on above: Order Comment: No: D o not add to previous draw Performed By: #### 3 0739 #### [facility] [address] [place] [address], [facility] Urea nitrogen [Mass/Vol] 66 mg/dL High 7-25 [facility] Comment on above: Order Comment: No: D o not add to previous draw Performed By: #### 3 0739 #### [facility] [address] [place] [address], [facility] Calcium [Mass/Vol] 8.9 mg/dL Normal 8.6-10.3 [facility] Comment on above: Order Comment: evalu ate for Effusion Performed By: #### 4 1000, 02612, 38755 ####[facility] [facility] [id number], [facility] Chloride [Moles/Vol] 100 mmol/L Normal 98-107 [facility] Comment on above: Order Comment: evalu ate for Effusion Performed By: #### 4 1000, 24196, 39976 ####[facility] [facility] [place] [address], [facility] CO2 [Moles/Vol] 22 mmol/L Normal 21-31 [facility] Comment on above: Order Comment: evalu ate for Effusion Performed By: #### 4 1000, 69943, 75158 ####[facility] [facility] [address], [facility] Creatinine [Mass/Vol] 2.14 mg/dL High 0.70-1.30 [facility] Comment on above: Order Comment: evalu ate for Effusion Performed By: #### 4 1000, 99704, 85426 ####[facility] [facility].[address] EGFR 31 ml/min/1.73sq m Abnormal >60 [facility] Comment on above: Order Comment: evalu ate for Effusion Result Comment: [facility]'s estimated glomerular filtration rate (eGFR) will no [...] of individuals. Performed By: #### 4 1000, 22908, 30263 ####[facility] [place] [address], [place] Glucose [Mass/Vol] 111 mg/dL High 70-100 [facility] Comment on above: Order Comment: evalu ate for Effusion Performed By: #### 4 1000, 02896, 60298 ####[facility] [place] [address], [place] Potassium [Moles/Vol] 3.8 mmol/L Normal 3.5-5.1 [facility] Comment on above: Order Comment: evalu ate for Effusion Performed By: #### 4 1000, 82364, 48753 ####[facility] [place] [address], [place] Sodium [Moles/Vol] 134 mmol/L Low 136-145 [facility] Comment on above: Order Comment: evalu ate for Effusion Performed By: #### 4 999, 31689, 30893 ####[facility] [place] [address], [place] Urea nitrogen [Mass/Vol] 60 mg/dL High 7-25 [facility] Comment on above: Order Comment: evalu ate for Effusion Performed By: #### 4 1000, 83468, 08824 ####[facility] [place] [address], [place] CBC COMPLETE BLOOD COUNTon 0 02-24-2022 Erythrocyte distribution width (RBC) [Ratio] 14.7 % Normal 11.5-15.0 [facility] Comment on above: Order Comment: No: D o not add to previous draw Performed By: #### 5 0608 #### [facility] [address] [place] [address], [place] Hematocrit (Bld) [Volume fraction] 28.6 % Low 39.0-50.0 [facility] Comment on above: Order Comment: No: D o not add to previous draw Performed By: #### 5 0608 #### [facility] [address] [place] [address], [facility] Hemoglobin (Bld) [Mass/Vol] 9.5 g/dL Low 13.0-17.0 [facility] Comment on above: Order Comment: No: D o not add to previous draw Performed By: #### 5 0608 #### [facility] [address] [place] [address], [facility] IMM PLATELET FRAC 9.2 % High 0.8-6.3 [facility] Comment on above: Order Comment: No: D o not add to previous draw Performed By: #### 5 0608 #### [facility] [address] [facility] [address], [facility] MCH (RBC) [Entitic mass] 30.4 pg Normal 27.0-33.0 [facility] Comment on above: Order Comment: No: D o not add to previous draw Performed By: #### 5 0608 #### [facility] [address] [facility] [address], [facility] MCHC (RBC) [Mass/Vol] 33.2 g/dL Normal 32.0-35.0 [facility] Comment on above: Order Comment: No: D o not add to previous draw Performed By: #### 5 0608 #### [facility] [address] [facility] [address], [facility] MCV (RBC) [Entitic vol] 91.4 fL Normal 82.0-98.0 [facility] Comment on above: Order Comment: No: D o not add to previous draw Performed By: #### 5 0608 #### [facility] [address] [facility] [address], [facility] Nucleated RBC/100 WBC (Bld) [Ratio] 0 % Normal 0-0 [facility] Comment on above: Order Comment: No: D o not add to previous draw Performed By: #### 5 0608 #### [facility] [address] [facility] [place] [place] [address], [place] PLAT CNT 80 10*3/uL Low 150-400 [facility] Comment on above: Order Comment: No: D o not add to previous draw Performed By: #### 5 0608 #### [facility] [address] [place] [address], [place] RBC (Bld) [#/Vol] 3.13 10*6/uL Low 4.20-5.70 [facility] Comment on above: Order Comment: No: D o not add to previous draw Performed By: #### 5 0608 #### [facility] [address] [place] [address], [place] WBC (Bld) [#/Vol] 5.80 10*3/uL Normal 4.00-10.60 [facility] Comment on above: Order Comment: No: D o not add to previous draw Performed By: #### 5 0608 #### [facility] [address] [place] [address], [place] MAGNESIUM BLOODon 02-24-2022 Magnesium [Mass/Vol] 2.4 mg/dL Normal 1.9-2.7 [facility] Comment on above: Performed By: #### 3 0739 #### [facility] [address] [place] [address], [place] Magnesium [Mass/Vol] 2.4 mg/dL Normal 1.9-2.7 [facility] Comment on above: Order Comment: evalu ate for Effusion Performed By: #### 4 1000, 97314, 06539 ####[facility] [place] [address], [place] PHOSPHORUS BLOODon Phosphate [Mass/Vol] 4.6 mg/dL Normal 2.5-5.0 [facility] Comment on above: Performed By: #### 3 1900 #### [facility] [address] [place] [address], [place] Phosphate [Mass/Vol] 5.0 mg/dL Normal 2.5-5.0 [facility] Comment on above: Order Comment: evalu ate for Effusion Performed By: #### 4 1000, 23864, 30964 ####[facility] PORTABLE CHEST 1 VIEWon 090 PORTABLE CHEST 1 VIEW [facility] Department of Radiology [address] [place] [address] ======== Patient Name: IGNACIO AMIN : 1945 Sex: M Age: Race: White Pt. Location: [place] [address] Patient Status: I Ordered Date: 02/24/2022 3:00:00 [...] pneumothorax. Electronically signed: Mahesh Sanchez. Transcribed by: [email or web address], User Resident: Electronically Signed by: MAHESH SANCHEZ @ 02/24/2022 04:00 PM Normal [facility] Comment on above: Order Comment: evalu ate for Pneumothorax PORTABLE CHEST 1 VIEW [facility] Department of Radiology [address] [place] [id number] ======== Patient Name: IGNACIO AMIN : 1945 Sex: M Age: Race: White Pt. Location: [place] [address] Patient Status: I Ordered Date: 02/24/2022 5:00:00 [...] chest. Electronically signed: Mahesh Sanchez. Transcribed by: [email or web address], User Resident: Electronically Signed by: MAHESH SANCHEZ @ 02/24/2022 08:35 AM Normal [facility] Comment on above: Order Comment: Check Chest Tube Position, ON ARRIVAL TO CVU ALBUMIN BLOODon 02-23-2022 Albumin [Mass/Vol] 4.0 g/dL Normal 3.5-5.7 [facility] Comment on above: Performed By: #### 3 0965 #### [facility] [address] [facility] ARTERIAL BLOOD GAS W/COOXon 02-23-2022 BASE EXCESS -6 mmol/L Low -2-3 [facility] Comment on above: Performed By: #### 3 0739 #### [facility] [address] [facility] [address] COHB 1.1 % Normal 0.0-1.5 [facility] Comment on above: Performed By: #### 3 0739 #### [facility] [address] DELIVERY SYSTEMS BIPAP Normal [facility] Comment on above: Performed By: #### 3 0739 #### [facility] [address] [facility] [address], [facility] FIO2 50 % Normal [facility] Comment on above: Performed By: #### 3 0739 #### [facility] [address] [facility] [place] [place] [address], [facility] HCO3 (Bld) [Moles/Vol] 20 mmol/L Low 21-28 [facility] Comment on above: Performed By: #### 3 0739 #### [facility] [address] [facility] [place] [place] [address], [facility] METHB 0.7 % Normal 0.0-1.5 [facility] Comment on above: Performed By: #### 3 0739 #### [facility] [address] [place] [address], [facility] MODALITY BIPAP Normal [facility] Comment on above: Performed By: #### 3 0739 #### [facility] [address] [place] [address], [facility] Oxygen (Bld) [Partial pressure] 134 mm[Hg] Critically high 83-108 [facility] Comment on above: Performed By: #### 3 0739 #### [facility] [address] [place] [address], [facility] Oxygen saturation in Blood 97.7 % High 94.0-97.0 [facility] Comment on above: Performed By: #### 3 0739 #### [facility] [address] [facility] [place] [place] [address], [facility] PCO2 37 mmHg Normal 35-45 [facility] Comment on above: Performed By: #### 3 0739 #### [facility] [address] [place] [address], [facility] PEEP 6.0 CMH20 Normal [facility] Comment on above: Performed By: #### 3 0739 #### [facility] [address] [place] [address], [facility] pH (Bld) 7.33 [pH] Low 7.35-7.45 [facility] Comment on above: Performed By: #### 3 0739 #### [facility] [address] [place] [address], [facility] PRESSURE SUPPORT 12 Normal [facility] Comment on above: Performed By: #### 3 0739 #### [facility] [address] [place] [address], [facility] THB 10.2 g/dL Low 12.0-16.3 [facility] Comment on above: Performed By: #### 3 0739 #### [facility] [address] [place] [address], [facility] BASIC METABOLIC PANELon 09-0 Calcium [Mass/Vol] 9.2 mg/dL Normal 8.6-10.3 [facility] Comment on above: Order Comment: evalu ate for Effusion Performed By: #### 0 0071, 31117, 26282, 77043 ####[facility] [place] [address], [facility] Chloride [Moles/Vol] 102 mmol/L Normal 98-107 [facility] Comment on above: Order Comment: evalu ate for Effusion Performed By: #### 0 0071, 89646, 30897, 53731 ####[facility] [place] [address], [facility] CO2 [Moles/Vol] 19 mmol/L Low 21-31 [facility] Comment on above: Order Comment: evalu ate for Effusion Performed By: #### 0 0071, 85048, 73328, 27482 ####[facility] [place] [address], [facility] Creatinine [Mass/Vol] 2.06 mg/dL High 0.70-1.30 [facility] Comment on above: Order Comment: evalu ate for Effusion Performed By: #### 0 0071, 93828, 39288, 09976 ####[facility] [facility] [place] [address], [facility] EGFR 33 ml/min/1.73sq m Abnormal >60 [facility] Comment on above: Order Comment: evalu ate for Effusion Result Comment: [facility]'s estimated glomerular filtration rate (eGFR) will no [...] of individuals. Performed By: #### 0 0071, 60982, 84340, 75143 ####[facility] [place] [address], [facility] Glucose [Mass/Vol] 140 mg/dL High 70-100 [facility] Comment on above: Order Comment: evalu ate for Effusion Performed By: #### 0 0071, 78847, 77445, 84002 ####[facility] [place] [address], [facility] Potassium [Moles/Vol] 4.4 mmol/L Normal 3.5-5.1 [facility] Comment on above: Order Comment: evalu ate for Effusion Performed By: #### 0 0071, 32651, 32107, 00813 ####[facility] [place] [address], [facility] Sodium [Moles/Vol] 132 mmol/L Low 136-145 [facility] Comment on above: Order Comment: evalu ate for Effusion Performed By: #### 0 0071, 45761, 61338, 42091 ####[facility] [place] [address], [facility] Urea nitrogen [Mass/Vol] 50 mg/dL High 7-25 [facility] Comment on above: Order Comment: evalu ate for Effusion Performed By: #### 0 0071, 41779, 08591, 94069 ####[facility] CBC COMPLETE BLOOD COUNTon 0 - Erythrocyte distribution width (RBC) [Ratio] 14.9 % Normal 11.5-15.0 [facility] Comment on above: Order Comment: Check Chest Tube Position, ON ARRIVAL TO CVU Performed By: #### 5 0608 ####[facility] [place] [address], [facility] Hematocrit (Bld) [Volume fraction] 30.5 % Low 39.0-50.0 [facility] Comment on above: Order Comment: Check Chest Tube Position, ON ARRIVAL TO CVU Performed By: #### 5 0608 ####[facility] Hemoglobin (Bld) [Mass/Vol] 10.3 g/dL Low 13.0-17.0 [facility] Comment on above: Order Comment: Check Chest Tube Position, ON ARRIVAL TO CVU Performed By: #### 5 0608 ####[facility] [place] [address], [facility] IMM PLATELET FRAC 10.6 % High 0.8-6.3 [facility] Comment on above: Order Comment: Check Chest Tube Position, ON ARRIVAL TO CVU Performed By: #### 5 0608 ####[address] MCH (RBC) [Entitic mass] 31.3 pg Normal 27.0-33.0 [facility] Comment on above: Order Comment: Check Chest Tube Position, ON ARRIVAL TO CVU Performed By: #### 5 0608 ####[facility] [place] [address] MCHC (RBC) [Mass/Vol] 33.8 g/dL Normal 32.0-35.0 [facility] Comment on above: Order Comment: Check Chest Tube Position, ON ARRIVAL TO CVU Performed By: #### 5 0608 ####[facility] [place] [address] MCV (RBC) [Entitic vol] 92.7 fL Normal 82.0-98.0 [facility] Comment on above: Order Comment: Check Chest Tube Position, ON ARRIVAL TO CVU Performed By: #### 5 0608 ####[address] Nucleated RBC/100 WBC (Bld) [Ratio] 0 % Normal 0-0 [facility] Comment on above: Order Comment: Check Chest Tube Position, ON ARRIVAL TO CVU Performed By: #### 5 0608 ####[facility] [place] [address], [facility] PLAT CNT 71 10*3/uL Low 150-400 [facility] Comment on above: Order Comment: Check Chest Tube Position, ON ARRIVAL TO CVU Performed By: #### 5 0608 ####[facility] [place] [address], [facility] RBC (Bld) [#/Vol] 3.29 10*6/uL Low 4.20-5.70 [facility] Comment on above: Order Comment: Check Chest Tube Position, ON ARRIVAL TO CVU Performed By: #### 5 0608 ####[facility] [place] [address], [facility] WBC (Bld) [#/Vol] 8.45 10*3/uL Normal 4.00-10.60 [facility] Comment on above: Order Comment: Check Chest Tube Position, ON ARRIVAL TO CVU Performed By: #### 5 0608 ####[facility] [place] [address], [facility] MAGNESIUM BLOODon 02-23-2022 Magnesium [Mass/Vol] 2.6 mg/dL Normal 1.9-2.7 [facility] Comment on above: Performed By: #### 3 0965 #### [facility] [address] [place] [address], [facility] PHOSPHORUS BLOODon 2 Phosphate [Mass/Vol] 5.4 mg/dL High 2.5-5.0 [facility] Comment on above: Performed By: #### 3 0965 #### [facility] [address] [place] [address], [facility] POC GLUCOSE LABon 02-23-2022 Glucose [Mass/Vol] 144 mg/dL High 70-100 [facility] Comment on above: Performed By: #### 3 1595 #### [address] [address] PORTABLE CHEST 1 VIEWon PORTABLE CHEST 1 VIEW [facility] Department of Radiology [address] [place] [address] ======== Patient Name: IGNACIO AMIN : 1945 Sex: M Age: Race: White Pt. Location: [place] [address] Patient Status: I Ordered Date: 02/23/2022 5:00:00 [...] disease Electronically signed: Aurora Valentino. Transcribed by: [email or web address], User Resident: Electronically Signed by: AURORA VALENTINO @ 02/23/2022 08:18 AM Normal [facility] Comment on above: Order Comment: evalu ate for Effusion Pulmonary Functionon 022 Pulmonary Function MR #: [id number] [facility] PT. Name: Ignacio Amin Date: 02/15/2022 Date [...] P/Dorothea Le M.D. Date Trans: 02/23/2022 07:06 A/suzieo [id number] Normal [facility] ARTERIAL BLOOD GAS W/COOXon 02-22-2022 BASE EXCESS -7 mmol/L Low -2-3 [facility] Comment on above: Performed By: #### 3 9080 #### [facility] [address] [place] [address], [facility] COHB 1.4 % Normal 0.0-1.5 [facility] Comment on above: Performed By: #### 3 5340 #### [facility] [address] [place] [address], [facility] [employer] [place] Normal [facility] Comment on above: Performed By: #### 3 0739 #### [facility] [address] [place] [address], [facility] HCO3 (Bld) [Moles/Vol] 19 mmol/L Low 21-28 [facility] Comment on above: Performed By: #### 3 0739 #### [facility] [address] [place] [address], [facility] LPM 4.0 LPM Normal [facility] Comment on above: Performed By: #### 3 0739 #### [facility] [address] [place] [address], [facility] METHB 0.4 % Normal 0.0-1.5 [facility] Comment on above: Performed By: #### 3 0739 #### [facility] [address] [place] [address], [facility] Oxygen (Bld) [Partial pressure] 68 mm[Hg] Low 83-108 [facility] Comment on above: Performed By: #### 3 0739 #### [facility] [address] [place] [address], [facility] Oxygen saturation in Blood 93.8 % Low 94.0-97.0 [facility] Comment on above: Performed By: #### 3 0739 #### [facility] [address] [place] [address], [facility] PCO2 35 mmHg Normal 35-45 [facility] Comment on above: Performed By: #### 3 0739 #### [facility] [address] [place] [address], [place] pH (Bld) 7.33 [pH] Low 7.35-7.45 [facility] Comment on above: Performed By: #### 3 0739 #### [facility] [address] [place] [address], [facility] THB 11.0 g/dL Low 12.0-16.3 [facility] Comment on above: Performed By: #### 3 0739 #### [facility] [address] [place] [address], [facility] BASIC METABOLIC PANELon 09-0 Chloride [Moles/Vol] 104 mmol/L Normal 98-107 [facility] Comment on above: Order Comment: Check Chest Tube Position, ON ARRIVAL TO CVU Performed By: #### 0 0071 ####[facility] [facility] [place] [address], [facility] CO2 [Moles/Vol] 20 mmol/L Low 21-31 [facility] Comment on above: Order Comment: Check Chest Tube Position, ON ARRIVAL TO CVU Performed By: #### 0 0071 ####[facility] [facility] Creatinine [Mass/Vol] 1.84 mg/dL High 0.70-1.30 [facility] Comment on above: Order Comment: Check Chest Tube Position, ON ARRIVAL TO CVU Performed By: #### 0 0071 ####[facility] EGFR 38 ml/min/1.73sq m Abnormal >60 [facility] Comment on above: Order Comment: Check Chest Tube Position, ON ARRIVAL TO CVU Result Comment: [facility]'s estimated glomerular filtration rate (eGFR) will no [...] of individuals. Performed By: #### 0 0071 ####[facility] [facility] [place] [address], [place] Glucose [Mass/Vol] 129 mg/dL High 70-100 [facility] Comment on above: Order Comment: Check Chest Tube Position, ON ARRIVAL TO CVU Performed By: #### 0 0071 ####[facility] [place] [address], [facility] Potassium [Moles/Vol] 4.2 mmol/L Normal 3.5-5.1 [facility] Comment on above: Order Comment: Check Chest Tube Position, ON ARRIVAL TO CVU Performed By: #### 0 0071 ####[facility] [place] [address], [facility] Urea nitrogen [Mass/Vol] 41 mg/dL High 7-25 [facility] Comment on above: Order Comment: Check Chest Tube Position, ON ARRIVAL TO CVU Performed By: #### 0 0071 ####[facility] [place] [address], [facility] Calcium [Mass/Vol] 8.8 mg/dL Normal 8.6-10.3 [facility] Comment on above: Order Comment: Check Chest Tube Position, ON ARRIVAL TO CVU Performed By: #### 0 0071 ####[facility] [place] [address], [facility] Performed By: #### 0 0071, 35188, 12392 ####[facility] [place] [address], [place] Chloride [Moles/Vol] 105 mmol/L Normal 98-107 [facility] Comment on above: Order Comment: Check Chest Tube Position, ON ARRIVAL TO CVU Performed By: #### 0 0071, 70805, 72524 ####[facility] [place] [address], [place] CO2 [Moles/Vol] 19 mmol/L Low 21-31 [facility] Comment on above: Order Comment: Check Chest Tube Position, ON ARRIVAL TO CVU Performed By: #### 0 0071, 29641, 91652 ####[facility] [place] [address], [facility] Creatinine [Mass/Vol] 1.60 mg/dL High 0.70-1.30 [facility] Comment on above: Order Comment: Check Chest Tube Position, ON ARRIVAL TO CVU Performed By: #### 0 0071, 53267, 91059 ####[facility] [place] [address], [facility] EGFR 45 ml/min/1.73sq m Abnormal >60 [facility] Comment on above: Order Comment: Check Chest Tube Position, ON ARRIVAL TO CVU Result Comment: [facility]'s estimated glomerular filtration rate (eGFR) will no [...] of individuals. Performed By: #### 0 0071, 63488, 88780 ####[facility] [facility] [place] [place] [address], [facility] Glucose [Mass/Vol] 137 mg/dL High 70-100 [facility] Comment on above: Order Comment: Check Chest Tube Position, ON ARRIVAL TO CVU Performed By: #### 0 0071, 86603, 04776 ####[facility] [place] [address], [place] Potassium [Moles/Vol] 4.3 mmol/L Normal 3.5-5.1 [facility] Comment on above: Order Comment: Check Chest Tube Position, ON ARRIVAL TO CVU Performed By: #### 0 0071, 15528, 45867 ####[facility] [place] [address], [place] Sodium [Moles/Vol] 133 mmol/L Low 136-145 [facility] Comment on above: Order Comment: Check Chest Tube Position, ON ARRIVAL TO CVU Performed By: #### 0 0071 ####[facility] Performed By: #### 0 0071, 10027, 62192 ####[facility] Urea nitrogen [Mass/Vol] 34 mg/dL High 7-25 [facility] Comment on above: Order Comment: Check Chest Tube Position, ON ARRIVAL TO CVU Performed By: #### 0 0071, 48793, 66106 ####[facility] [facility] CBC COMPLETE BLOOD COUNTon 0 02-22-2022 Erythrocyte distribution width (RBC) [Ratio] 14.8 % Normal 11.5-15.0 [facility] Comment on above: Order Comment: No: D o not add to previous draw Performed By: #### 5 0608 #### [facility] [address] [place] [address], [facility] Hematocrit (Bld) [Volume fraction] 30.9 % Low 39.0-50.0 [facility] Comment on above: Order Comment: No: D o not add to previous draw Performed By: #### 5 0608 #### [facility] [address] [place] [address], [facility] Hemoglobin (Bld) [Mass/Vol] 10.7 g/dL Low 13.0-17.0 [facility] Comment on above: Order Comment: No: D o not add to previous draw Performed By: #### 5 0608 #### [facility] [address] [place] [address], [facility] IMM PLATELET FRAC 7.9 % High 0.8-6.3 [facility] Comment on above: Order Comment: No: D o not add to previous draw Performed By: #### 5 0608 #### [facility] [address] [place] [address], [facility] MCH (RBC) [Entitic mass] 31.4 pg Normal 27.0-33.0 [facility] Comment on above: Order Comment: No: D o not add to previous draw Performed By: #### 5 0608 #### [facility] [address] [place] [address], [facility] MCHC (RBC) [Mass/Vol] 34.6 g/dL Normal 32.0-35.0 [facility] Comment on above: Order Comment: No: D o not add to previous draw Performed By: #### 5 0608 #### [facility] [address] [place] [address], [facility] MCV (RBC) [Entitic vol] 90.6 fL Normal 82.0-98.0 [facility] Comment on above: Order Comment: No: D o not add to previous draw Performed By: #### 5 0608 #### [facility] [address] [place] [address], [facility] Nucleated RBC/100 WBC (Bld) [Ratio] 0 % Normal 0-0 [facility] Comment on above: Order Comment: No: D o not add to previous draw Performed By: #### 5 0608 #### [facility] [address] [place] [address], [facility] PLAT CNT 74 10*3/uL Low 150-400 [facility] Comment on above: Order Comment: No: D o not add to previous draw Performed By: #### 5 0608 #### [facility] [address] [place] [address], [facility] RBC (Bld) [#/Vol] 3.41 10*6/uL Low 4.20-5.70 [facility] Comment on above: Order Comment: No: D o not add to previous draw Performed By: #### 5 0608 #### [facility] [address] WBC (Bld) [#/Vol] 9.54 10*3/uL Normal 4.00-10.60 [facility] Comment on above: Order Comment: No: D o not add to previous draw Performed By: #### 5 0608 #### [facility] [address] MAGNESIUM BLOODon 02-22-2022 Magnesium [Mass/Vol] 2.3 mg/dL Normal 1.9-2.7 [facility] Comment on above: Order Comment: Check Chest Tube Position, ON ARRIVAL TO CVU Performed By: #### 0 0071, 68139, 10038 ####[facility] [place], [place] [address] [place] [address] PHOSPHORUS BLOODon Phosphate [Mass/Vol] 3.8 mg/dL Normal 2.5-5.0 [facility] Comment on above: Order Comment: Check Chest Tube Position, ON ARRIVAL TO CVU Performed By: #### 0 0071, 45862, 39737 ####[facility] PORTABLE CHEST 1 VIEWon PORTABLE CHEST 1 VIEW [facility] Department of Radiology [address] [place] [id number] ======== Patient Name: IGNACIO AMIN : 1945 Sex: M Age: Race: White Pt. Location: [place] [address] Patient Status: I Ordered Date: 02/22/2022 5:00:00 [...] recommended. Electronically signed: Martin Giordano. Transcribed by: [email or web address], User Resident: Electronically Signed by: MARTIN GIORDANO @ 02/22/2022 12:04 PM Normal [facility] Comment on above: Order Comment: Evalu ate for Pneumothorax URINALYSIS REFLEXon 02-23-20 Appearance (U) CLEAR Normal CLEAR [facility] Comment on above: Order Comment: No: D o not add to previous draw Criteria for reflexing a culture was not met. Please call the lab at [phone] within 24 hours of collection time if culture is needed Performed By: #### 3 0965 #### [facility] [address] [place] [address], [place] Bilirubin Ql (U) Negative Normal NEGATIVE [facility] Comment on above: Order Comment: No: D o not add to previous draw Criteria for reflexing a culture was not met. Please call the lab at [phone] within 24 hours of collection time if culture is needed Performed By: #### 3 0965 #### [facility] [address] [place] [address], [place] Color (U) YELLOW Normal YELLOW [facility] Comment on above: Order Comment: No: D o not add to previous draw Criteria for reflexing a culture was not met. Please call the lab at [phone] within 24 hours of collection time if culture is needed Performed By: #### 3 0965 #### [facility] [address] [place] [address], [facility] EPIS NONE SEEN Normal FEW,OCC,NONE SEEN [facility] Comment on above: Order Comment: No: D o not add to previous draw Criteria for reflexing a culture was not met. Please call the lab at [phone] within 24 hours of collection time if culture is needed Performed By: #### 3 0965 #### [facility] [address] [place] [address], [place] Glucose Ql (U) Negative Normal NEGATIVE [facility] Comment on above: Order Comment: No: D o not add to previous draw Criteria for reflexing a culture was not met. Please call the lab at [phone] within 24 hours of collection time if culture is needed Performed By: #### 3 0965 #### [facility] [address] [place] [address], [place] Hemoglobin Ql (U) SMALL Abnormal NEGATIVE [facility] Comment on above: Order Comment: No: D o not add to previous draw Criteria for reflexing a culture was not met. Please call the lab at [phone] within 24 hours of collection time if culture is needed Performed By: #### 3 0965 #### [facility] [address] [place] [address], [place] Hyaline casts LM Ql (Urine sed) 6-10 Abnormal NONE SEEN [facility] Comment on above: Order Comment: No: D o not add to previous draw Criteria for reflexing a culture was not met. Please call the lab at [phone] within 24 hours of collection time if culture is needed Performed By: #### 3 0965 #### [facility] [address] [place] [address], [facility] KETONE Negative Normal NEGATIVE [facility] Comment on above: Order Comment: No: D o not add to previous draw Criteria for reflexing a culture was not met. Please call the lab at [phone] within 24 hours of collection time if culture is needed Performed By: #### 3 0965 #### [facility] [address] [place] [address], [place] LEUK TOMA Negative Normal NEGATIVE [facility] Comment on above: Order Comment: No: D o not add to previous draw Criteria for reflexing a culture was not met. Please call the lab at [phone] within 24 hours of collection time if culture is needed Performed By: #### 3 0965 #### [facility] [address] [place] [address], [place] MUCUS THREADS OCC Abnormal NONE SEEN [facility] Comment on above: Order Comment: No: D o not add to previous draw Criteria for reflexing a culture was not met. Please call the lab at [phone] within 24 hours of collection time if culture is needed Performed By: #### 3 0965 #### [facility] [address] [place] [address], [place] Nitrite Ql (U) Negative Normal NEGATIVE [facility] Comment on above: Order Comment: No: D o not add to previous draw Criteria for reflexing a culture was not met. Please call the lab at [phone] within 24 hours of collection time if culture is needed Performed By: #### 3 0965 #### [facility] [address] [place] [address], [place] pH (U) 5.0 [pH] Normal 5.0-8.0 [facility] Comment on above: Order Comment: No: D o not add to previous draw Criteria for reflexing a culture was not met. Please call the lab at [phone] within 24 hours of collection time if culture is needed Performed By: #### 3 0965 #### [facility] [address] [place] [address], [facility] Protein Ql (U) TRACE Abnormal NEGATIVE [facility] Comment on above: Order Comment: No: D o not add to previous draw Criteria for reflexing a culture was not met. Please call the lab at [phone] within 24 hours of collection time if culture is needed Performed By: #### 3 0965 #### [facility] [address] [facility] [address], [facility] RBC 6-10 Abnormal NONE SEEN [facility] Comment on above: Order Comment: No: D o not add to previous draw Criteria for reflexing a culture was not met. Please call the lab at [phone] within 24 hours of collection time if culture is needed Performed By: #### 3 0965 #### [facility] [address] [facility] [address], [facility] SPEC GRAV 1.016 Normal 1.015-1.020 [facility] Comment on above: Order Comment: No: D o not add to previous draw Criteria for reflexing a culture was not met. Please call the lab at [phone] within 24 hours of collection time if culture is needed Performed By: #### 3 0965 #### [facility] [address] [place] [address], [facility] WBC UA 3-5 Abnormal NONE SEEN [facility] Comment on above: Order Comment: No: D o not add to previous draw Criteria for reflexing a culture was not met. Please call the lab at [phone] within 24 hours of collection time if culture is needed Performed By: #### 3 0965 #### [facility] [address] [place] [address], [facility] APTTon 02-21-2022 aPTT Coag (Bld) [Time] 38.0 s High 25.0-35.0 [facility] Comment on above: Order Comment: Check Chest [...] THIS PURPOSE. Performed By: #### 5 7307, 12128 ####[facility] [place] [address], [facility] BASIC METABOLIC PANELon Calcium [Mass/Vol] 8.6 mg/dL Normal 8.6-10.3 [facility] Comment on above: Order Comment: Check Chest Tube Position, ON ARRIVAL TO CVU Performed By: #### 1 69, 02711 ####[facility] [place] [address], [facility] Chloride [Moles/Vol] 107 mmol/L Normal 98-107 [facility] Comment on above: Order Comment: Check Chest Tube Position, ON ARRIVAL TO CVU Performed By: #### 1 69, 10342 ####[facility] [place] [address], [facility] CO2 [Moles/Vol] 18 mmol/L Low 21-31 [facility] Comment on above: Order Comment: Check Chest Tube Position, ON ARRIVAL TO CVU Performed By: #### 1 69, 39266 ####[facility] [place] [address], [facility] Creatinine [Mass/Vol] 1.69 mg/dL High 0.70-1.30 [facility] Comment on above: Order Comment: Check Chest Tube Position, ON ARRIVAL TO CVU Performed By: #### 1 69, 28558 ####[facility] EGFR 42 ml/min/1.73sq m Abnormal >60 [facility] Comment on above: Order Comment: Check Chest Tube Position, ON ARRIVAL TO CVU Result Comment: [facility]'s estimated glomerular filtration rate (eGFR) will no [...] group of individuals. Performed By: #### 1 0, 59056 ####[facility] [place] [address], [facility] Glucose [Mass/Vol] 155 mg/dL High 70-100 [facility] Comment on above: Order Comment: Check Chest Tube Position, ON ARRIVAL TO CVU Performed By: #### 1 69, 08557 ####[facility] [place] [address], [facility] Potassium [Moles/Vol] 4.6 mmol/L Normal 3.5-5.1 [facility] Comment on above: Order Comment: Check Chest Tube Position, ON ARRIVAL TO CVU Performed By: #### 1 69, 60624 ####[facility] [place] [address], [facility] Sodium [Moles/Vol] 136 mmol/L Normal 136-145 [facility] Comment on above: Order Comment: Check Chest Tube Position, ON ARRIVAL TO CVU Performed By: #### 1 69, 73207 ####[place] [id number] [place] [address], [facility] Urea nitrogen [Mass/Vol] 29 mg/dL High 7-25 [facility] Comment on above: Order Comment: Check Chest Tube Position, ON ARRIVAL TO CVU Performed By: #### 1 0070, 16334 ####[facility] [place] [address], [facility] Calcium [Mass/Vol] 8.5 mg/dL Low 8.6-10.3 [facility] Comment on above: Order Comment: evalu ate for Effusion Performed By: #### 0 0071, 86939, 82450 ####[facility] [place] [address], [facility] Chloride [Moles/Vol] 108 mmol/L High 98-107 [facility] Comment on above: Order Comment: evalu ate for Effusion Performed By: #### 0 0071, 87980, 44637 ####[facility] [place] [address], [facility] CO2 [Moles/Vol] 21 mmol/L Normal 21-31 [facility] Comment on above: Order Comment: evalu ate for Effusion Performed By: #### 0 0071, 31250, 70582 ####[facility] [place] [address], [facility] Creatinine [Mass/Vol] 1.27 mg/dL Normal 0.70-1.30 [facility] Comment on above: Order Comment: evalu ate for Effusion Performed By: #### 0 0071, 42710, 50633 ####[facility] [facility] [place] [address], [facility] EGFR 59 ml/min/1.73sq m Abnormal >60 [facility] Comment on above: Order Comment: evalu ate for Effusion Result Comment: [facility]'s estimated glomerular filtration rate (eGFR) will no [...] of individuals. Performed By: #### 0 0071, 02621, 36962 ####[facility] [facility] [place] [address], [facility] Glucose [Mass/Vol] 118 mg/dL High 70-100 [facility] Comment on above: Order Comment: evalu ate for Effusion Performed By: #### 0 0071, 98617, 58866 ####[facility] [facility] [place] [address], [facility] Potassium [Moles/Vol] 4.4 mmol/L Normal 3.5-5.1 [facility] Comment on above: Order Comment: evalu ate for Effusion Performed By: #### 0 0071, 24331, 98021 ####[facility] [facility] [place] [address], [facility] Sodium [Moles/Vol] 137 mmol/L Normal 136-145 [facility] Comment on above: Order Comment: evalu ate for Effusion Performed By: #### 0 0071, 27849, 22170 ####[facility] [facility] [address], [facility] Urea nitrogen [Mass/Vol] 22 mg/dL Normal 7-25 [facility] Comment on above: Order Comment: evalu ate for Effusion Performed By: #### 0 0071, 31731, 94546 ####[facility] [facility].[address] CBC COMPLETE BLOOD COUNTon 0 - Erythrocyte distribution width (RBC) [Ratio] 14.6 % Normal 11.5-15.0 [facility] Comment on above: Order Comment: No: D o not add to previous draw Performed By: #### 5 0608 #### [facility] [address] [place] [address], [facility] Hematocrit (Bld) [Volume fraction] 30.4 % Low 39.0-50.0 [facility] Comment on above: Order Comment: No: D o not add to previous draw Performed By: #### 5 0608 #### [facility] [address] [place] [address], [facility] Hemoglobin (Bld) [Mass/Vol] 10.4 g/dL Low 13.0-17.0 [facility] Comment on above: Order Comment: No: D o not add to previous draw Performed By: #### 5 0608 #### [facility] [address] [place] [address], [facility] IMM PLATELET FRAC 5.8 % Normal 0.8-6.3 [facility] Comment on above: Order Comment: No: D o not add to previous draw Performed By: #### 5 0608 #### [facility] [address] [place] [address], [facility] MCH (RBC) [Entitic mass] 31.0 pg Normal 27.0-33.0 [facility] Comment on above: Order Comment: No: D o not add to previous draw Performed By: #### 5 0608 #### [facility] [address] [facility] [place] [address], [facility] MCHC (RBC) [Mass/Vol] 34.2 g/dL Normal 32.0-35.0 [facility] Comment on above: Order Comment: No: D o not add to previous draw Performed By: #### 5 0608 #### [facility] [address] [place] [address], [facility] MCV (RBC) [Entitic vol] 90.7 fL Normal 82.0-98.0 [facility] Comment on above: Order Comment: No: D o not add to previous draw Performed By: #### 5 0608 #### [facility] [address] [place] [address], [facility] Nucleated RBC/100 WBC (Bld) [Ratio] 0 % Normal 0-0 [facility] Comment on above: Order Comment: No: D o not add to previous draw Performed By: #### 5 0608 #### [facility] [address] [place] [address], [facility] PLAT CNT 83 10*3/uL Low 150-400 [facility] Comment on above: Order Comment: No: D o not add to previous draw Performed By: #### 5 0608 #### [facility] [address] [place] [address], [facility] RBC (Bld) [#/Vol] 3.35 10*6/uL Low 4.20-5.70 [facility] Comment on above: Order Comment: No: D o not add to previous draw Performed By: #### 5 0608 #### [facility] [address] [place] [address], [facility] WBC (Bld) [#/Vol] 6.89 10*3/uL Normal 4.00-10.60 [facility] Comment on above: Order Comment: No: D o not add to previous draw Performed By: #### 5 0608 #### [facility] [address] [place] [address], [facility] COOXIMETRYon 02-21-2022 COHB 2 % Normal [facility] Comment on above: Performed By: #### 7 0207 ####[facility] [facility] [place] [address], [facility] METHB 0 % Normal [facility] Comment on above: Performed By: #### 7 0207 ####[facility] [place] [address], [facility] Oxygen saturation in Blood 53.5 % Low 65.0-75.0 [facility] Comment on above: Performed By: #### 7 0207 ####[facility] [place] [address], [facility] THB 11.6 g/dL Normal [facility] Comment on above: Performed By: #### 7 0207 ####[facility] [place] [address], [facility] LACTATE BLOODon 02-21-2022 Lactate [Moles/Vol] 1.0 mmol/L Normal .5-2.2 [facility] Comment on above: Order Comment: Evalu ate for Pneumothorax Performed By: #### 1 0054 ####[facility] [place] [address], [facility] MAGNESIUM BLOODon 02-21-2022 Magnesium [Mass/Vol] 2.3 mg/dL Normal 1.9-2.7 [facility] Comment on above: Order Comment: Check Chest Tube Position, ON ARRIVAL TO CVU Performed By: #### 1 0070, 28069 ####[facility]3000 [facility].[address] Magnesium [Mass/Vol] 1.9 mg/dL Normal 1.9-2.7 [facility] Comment on above: Order Comment: evalu ate for Effusion Performed By: #### 0 0071, 90164, 99716 ####[facility] [facility].[address] Operative Reporton Operative Report MR#: [id number] I [facility] Pt. Name: Ignacio Amin Room #: JATIN [id number] Discharge Date: Birthdate: 1945 OPERATIVE REPORT DATE [...] anesthesia was induced. Colvin catheter was placed. Cordova-Sundar catheter was placed, which demonstrated mildly elevated [...] chest tubes were placed that were 32 [place]. The sternum was reapproximated with #6 wire. The fascia was (more content not included)... Normal [facility] PHOSPHORUS BLOODon 2 Phosphate [Mass/Vol] 5.2 mg/dL High 2.5-5.0 [facility] Comment on above: Order Comment: evalu ate for Effusion Performed By: #### 0 0071, 38899, 62078 ####[facility] [place] [address], [facility] POC GLUCOSE LABon 02-21-2022 Glucose [Mass/Vol] 124 mg/dL High 70-100 [facility] Comment on above: Performed By: #### 3 1595 #### [facility] [address] PORTABLE CHEST 1 VIEWon PORTABLE CHEST 1 VIEW [facility] Department of Radiology [address] [place] [address] ======== Patient Name: IGNACIO AMIN : 1945 Sex: M Age: Race: White Pt. Location: [id number] Patient Status: I Ordered Date: 02/21/2022 7:00:00 [...] is enlarged with vascular prominence centrally. The Cordova-Sundar catheter tip overlies the main pulmonary outflow tract. A left chest tube remains in place with no visible pneumothorax. Strandy perihilar and basilar infiltrates are present some worsening volume loss in the lung bases is blunting of the right costophrenic angle IMPRESSION: Slight worsening of pulmonary infiltrates. Support lines and tubes remain in place. Electronically signed: Jaspreet Kerns. Transcribed by: [email or web address], User Resident: Electronically Signed by: JASPREET Shook DARLING @ 02/21/2022 08:00 AM Normal [facility] Comment on above: Order Comment: Check Chest Tube Position, ON ARRIVAL TO CVU PROTHROMBIN TIMEon INR Coag (PPP) [Relative time] 1.36 {INR} High 0.91-1.16 [facility] Comment on above: Order Comment: Check Chest [...] CHEST 1995;108:[id number]. Performed By: #### 5 7307, 01144 ####[facility] [facility].[address] PT Coag (PPP) [Time] 16.7 s High 12.3-14.8 [facility] Comment on above: Order Comment: Check Chest Tube Position, ON ARRIVAL TO CVU Result Comment: ALL RESULTS MUST BE INTERPRETED WITH RESPECT TO BLOOD DRAWING ARTIFACT OR DILUTION ERROR OF ANTICOAGULANT AT THE TIME OF SAMPLING. Performed By: #### 5 7307, 06473 ####[facility] [facility].[address] ACTIVATED CLOTTING TIMEon ACTIVATED CLOTTING TIME 110 sec Normal 82-152 [facility] Comment on above: Performed By: #### 8 5499 #### [facility] [address] [place] [address], [place] ACTIVATED CLOTTING TIME 116 sec Normal 82-152 [facility] Comment on above: Performed By: #### 3 0739 #### [facility] [address] [place] [address], [place] ACTIVATED CLOTTING TIME 134 sec Normal 82-152 [facility] Comment on above: Performed By: #### 8 5499 #### [facility] [address] [place] [address], [place] ACTIVATED CLOTTING TIME 537 sec High 82-152 [facility] Comment on above: Performed By: #### 3 1595 #### [facility] [address] [place] [address], [place] ACTIVATED CLOTTING TIME 692 sec High 82-152 [facility] Comment on above: Performed By: #### 3 1595 #### [facility] [address] [place] [address], [place] ACTIVATED CLOTTING TIME 861 sec High 82-152 [facility] Comment on above: Performed By: #### 8 5499 #### [facility] [address] [place] [address], [place] ACTIVATED CLOTTING TIME 651 sec High 82-152 [facility] Comment on above: Performed By: #### 3 2044 #### [facility] [address] [place] [address], [place] ACTIVATED CLOTTING TIME 140 sec Normal 82-152 [facility] Comment on above: Performed By: #### 8 5499 #### [facility] [address] [place] [address], [place] APTTon 02-20-2022 aPTT Coag (Bld) [Time] 33.7 s Normal 25.0-35.0 [facility] Comment on above: Order Comment: Check Chest [...] THIS PURPOSE. Performed By: #### 5 6101, 12008 ####[facility] aPTT Coag (Bld) [Time] 39.1 s High 25.0-35.0 [facility] Comment on above: Result Comment: ALL RESULTS [...] THIS PURPOSE. Performed By: #### 5 6101, 70102, 61718 ####[facility] [facility] [place] [address], [facility] aPTT Coag (Bld) [Time] 109.3 s Critically high 25.0-35.0 [facility] Comment on above: Order Comment: Check Chest Tube Position, ON ARRIVAL TO CVU Result Comment: Resu lt checked and called. Accurately read back by Marie Silva at 0610 Performed By: #### 3 0477, 64836, 90138 ####[facility] [facility] ARTERIAL BLOOD GAS WITH ICAo n 02-20-2022 BASE EXCESS -5 mmol/L Low -2-3 [facility] Comment on above: Performed By: #### 3 4 #### [facility] [address] [place] [address], [facility] DELIVERY SYSTEMS VENTILATOR Normal [facility] Comment on above: Performed By: #### 3 2043 #### [facility] [address] [place] [address], [place] FIO2 40 % Normal [facility] Comment on above: Performed By: #### 3 2043 #### [facility] [address] [place] [address], [place] HCO3 (Bld) [Moles/Vol] 21 mmol/L Normal 21-28 [facility] Comment on above: Performed By: #### 3 2043 #### [facility] [address] [place] [address], [place] IONIZED CALCIUM 1.20 mmol/L Normal 1.13-1.32 [facility] Comment on above: Performed By: #### 3 2043 #### [facility] [address] [place] [address], [place] MIN VOLUME 8.1 Normal [facility] Comment on above: Performed By: #### 3 2043 #### [facility] [address] [place] [address], [place] MODALITY Positive Normal [facility] Comment on above: Performed By: #### 3 2043 #### [facility] [address] [place] [address], [place] Oxygen (Bld) [Partial pressure] 125 mm[Hg] Critically high 83-108 [facility] Comment on above: Performed By: #### 3 2043 #### [facility] [address] [place] [address], [place] Oxygen saturation in Blood 97.3 % High 94.0-97.0 [facility] Comment on above: Performed By: #### 3 2043 #### [facility] [address] [place] [address], [place] PCO2 38 mmHg Normal 35-45 [facility] Comment on above: Performed By: #### 3 2043 #### [facility] [address] [place] [address], [place] PEEP 5.0 CMH20 Normal [facility] Comment on above: Performed By: #### 3 2043 #### [facility] [address] [place] [address], [place] PF RATIO 313 mmHg Normal [facility] Comment on above: Performed By: #### 3 2043 #### [facility] [address] [place] [address], [place] pH (Bld) 7.34 [pH] Low 7.35-7.45 [facility] Comment on above: Performed By: #### 3 2043 #### [facility] [address] [place] [address], [place] PRESSURE SUPPORT 8 Normal [facility] Comment on above: Performed By: #### 3 2043 #### [facility] [address] [place] [address], [place] BASE EXCESS -4 mmol/L Low -2-3 [facility] Comment on above: Order Comment: on ar rival to CVU Performed By: #### 3 738 #### [facility] [address] [place] [address], [place] DELIVERY SYSTEMS VENTILATOR Normal [facility] Comment on above: Order Comment: on ar rival to CVU Performed By: #### 3 39 #### [facility] [address] [place] [address], [place] FIO2 50 % Normal [facility] Comment on above: Order Comment: on ar rival to CVU Performed By: #### 3 39 #### [facility] [address] [place] [address], [place] HCO3 (Bld) [Moles/Vol] 22 mmol/L Normal 21-28 [facility] Comment on above: Order Comment: on ar rival to CVU Performed By: #### 3 0739 #### [facility] [address] [place] [address], [facility] IONIZED CALCIUM 1.20 mmol/L Normal 1.13-1.32 [facility] Comment on above: Order Comment: on ar rival to CVU Performed By: #### 3 0739 #### [facility] [address] [place] [address], [place] MIN VOLUME 7.4 Normal [facility] Comment on above: Order Comment: on ar rival to CVU Performed By: #### 3 0739 #### [facility] [address] [place] [address], [place] MODALITY SIMV Normal [facility] Comment on above: Order Comment: on ar rival to CVU Performed By: #### 3 0739 #### [facility] [address] [place] [address], [facility] Oxygen (Bld) [Partial pressure] 150 mm[Hg] Critically high 83-108 [facility] Comment on above: Order Comment: on ar rival to CVU Performed By: #### 3 0739 #### [facility] [address] [place] [address], [place] Oxygen saturation in Blood 97.6 % High 94.0-97.0 [facility] Comment on above: Order Comment: on ar rival to CVU Performed By: #### 3 0739 #### [facility] [address] [place] [address], [place] PCO2 42 mmHg Normal 35-45 [facility] Comment on above: Order Comment: on ar rival to CVU Performed By: #### 3 0739 #### [facility] [address] [place] [address], [place] PEEP 8.0 CMH20 Normal [facility] Comment on above: Order Comment: on ar rival to CVU Performed By: #### 3 0739 #### [facility] [address] [place] [address], [facility] PF RATIO 300 mmHg Normal [facility] Comment on above: Order Comment: on ar rival to CVU Performed By: #### 3 0739 #### [facility] [address] [place] [address], [place] pH (Bld) 7.32 [pH] Low 7.35-7.45 [facility] Comment on above: Order Comment: on ar rival to CVU Performed By: #### 3 0739 #### [facility] [address] [place] [address], [facility] PRESSURE SUPPORT 8 Normal [facility] Comment on above: Order Comment: on ar rival to CVU Performed By: #### 3 0739 #### [facility] [address] [place] [address], [facility] Respiratory rate 16 /min Normal [facility] Comment on above: Order Comment: on ar rival to CVU Performed By: #### 3 0739 #### [facility] [address] [place] [address], [facility] TIDAL VOLUME (VT) CC 450 Normal [facility] Comment on above: Order Comment: on ar rival to CVU Performed By: #### 3 0739 #### [facility] [address] [place] [address], [place] BASIC METABOLIC PANELon 08-3 Calcium [Mass/Vol] 8.4 mg/dL Low 8.6-10.3 [facility] Comment on above: Order Comment: evalu ate for Effusion Performed By: #### 1 0070, 61833, 39977, 51079, 48144 ####[facility] [place] [address], [facility] Chloride [Moles/Vol] 111 mmol/L High 98-107 [facility] Comment on above: Order Comment: evalu ate for Effusion Performed By: #### 1 0070, 11639, 95622, 42809, 49890 ####[facility] [facility] [address], [facility] CO2 [Moles/Vol] 22 mmol/L Normal 21-31 [facility] Comment on above: Order Comment: evalu ate for Effusion Performed By: #### 1 0070, 18047, 46995, 60596, 23213 ####[facility] [facility] [address], [facility] Creatinine [Mass/Vol] 0.79 mg/dL Normal 0.70-1.30 [facility] Comment on above: Order Comment: evalu ate for Effusion Performed By: #### 1 0070, 25512, 59968, 90002, 78870 ####[facility] [facility] [address], [facility] GFR/1.73 sq M.predicted among non-blacks MDRD (S/P/Bld) [Vol rate/Area] mL/min/{1.73_m2} Normal >60 [facility] Comment on above: Order Comment: evalu ate for Effusion Result Comment: [facility]'s estimated glomerular filtration rate (eGFR) will no [...] of individuals. Performed By: #### 1 0070, 55244, 93487, 95185, 14370 ####[facility] [facility] [address], [facility] Glucose [Mass/Vol] 124 mg/dL High 70-100 [facility] Comment on above: Order Comment: evalu ate for Effusion Performed By: #### 1 0070, 98954, 17405, 70342, 42240 ####[facility] [place] [address], [place] Potassium [Moles/Vol] 4.5 mmol/L Normal 3.5-5.1 [facility] Comment on above: Order Comment: evalu ate for Effusion Performed By: #### 1 0070, 98184, 70857, 26080, 10671 ####[facility] [place] [address], [place] Sodium [Moles/Vol] 140 mmol/L Normal 136-145 [facility] Comment on above: Order Comment: evalu ate for Effusion Performed By: #### 1 0070, 15676, 33665, 26159, 02804 ####[facility] [place] [address], [place] Urea nitrogen [Mass/Vol] 16 mg/dL Normal 7-25 [facility] Comment on above: Order Comment: evalu ate for Effusion Performed By: #### 1 0070, 94472, 10157, 13234, 77646 ####[facility] [place] [address], [place] Calcium [Mass/Vol] 7.8 mg/dL Low 8.6-10.3 [facility] Comment on above: Performed By: #### 1 0070, 73321 ####[facility] [place] [address], [place] Chloride [Moles/Vol] 112 mmol/L High 98-107 [facility] Comment on above: Performed By: #### 1 0070, 54361 ####[facility] [place] [address], [place] CO2 [Moles/Vol] 24 mmol/L Normal 21-31 [facility] Comment on above: Performed By: #### 1 0070, 83836 ####[facility] [place] [address], [place] Creatinine [Mass/Vol] 0.81 mg/dL Normal 0.70-1.30 [facility] Comment on above: Performed By: #### 1 0, 37149 ####[facility] [place] [address], [facility] GFR/1.73 sq M.predicted among non-blacks MDRD (S/P/Bld) [Vol rate/Area] mL/min/{1.73_m2} Normal >60 [facility] Comment on above: Result Comment: [facility]'s estimated glomerular filtration rate (eGFR) will no [...] of individuals. Performed By: #### 1 69, 19133 ####[facility] [facility] [address], [facility] Glucose [Mass/Vol] 105 mg/dL High 70-100 [facility] Comment on above: Performed By: #### 1 69, 28317 ####[facility] [facility] [address], [facility] Potassium [Moles/Vol] 4.0 mmol/L Normal 3.5-5.1 [facility] Comment on above: Performed By: #### 1 0, 18994 ####[facility] [facility] [address], [facility] Sodium [Moles/Vol] 142 mmol/L Normal 136-145 [facility] Comment on above: Performed By: #### 1 0, 92293 ####[facility] [facility] [address], [facility] Urea nitrogen [Mass/Vol] 17 mg/dL Normal 7-25 [facility] Comment on above: Performed By: #### 1 0070, 57131 ####[facility] [place] [address], [facility] Calcium [Mass/Vol] 8.9 mg/dL Normal 8.6-10.3 [facility] Comment on above: Order Comment: Check Chest Tube Position, ON ARRIVAL TO CVU Performed By: #### 0 0071, 44736, 36200 ####[facility] [place] [address], [facility] Chloride [Moles/Vol] 110 mmol/L High 98-107 [facility] Comment on above: Order Comment: Check Chest Tube Position, ON ARRIVAL TO CVU Performed By: #### 0 0071, 64968, 47100 ####[facility] [place] [address], [facility] CO2 [Moles/Vol] 23 mmol/L Normal 21-31 [facility] Comment on above: Order Comment: Check Chest Tube Position, ON ARRIVAL TO CVU Performed By: #### 0 0071, 24904, 22953 ####[facility] [place] [address], [facility] Creatinine [Mass/Vol] 0.90 mg/dL Normal 0.70-1.30 [facility] Comment on above: Order Comment: Check Chest Tube Position, ON ARRIVAL TO CVU Performed By: #### 0 0071, 56549, 30633 ####[facility] [place] [address], [facility] GFR/1.73 sq M.predicted among non-blacks MDRD (S/P/Bld) [Vol rate/Area] mL/min/{1.73_m2} Normal >60 [facility] Comment on above: Order Comment: Check Chest Tube Position, ON ARRIVAL TO CVU Result Comment: [facility]'s estimated glomerular filtration rate (eGFR) will no [...] of individuals. Performed By: #### 0 0071, 57985, 45414 ####[facility] [place] [address], [facility] Glucose [Mass/Vol] 91 mg/dL Normal 70-100 [facility] Comment on above: Order Comment: Check Chest Tube Position, ON ARRIVAL TO CVU Performed By: #### 0 0071, 27505, 18509 ####[facility] [facility] [place] [address], [facility] Potassium [Moles/Vol] 3.7 mmol/L Normal 3.5-5.1 [facility] Comment on above: Order Comment: Check Chest Tube Position, ON ARRIVAL TO CVU Performed By: #### 0 0071, 55612, 38592 ####[facility] [facility] [place] [address], [facility] Sodium [Moles/Vol] 141 mmol/L Normal 136-145 [facility] Comment on above: Order Comment: Check Chest Tube Position, ON ARRIVAL TO CVU Performed By: #### 0 0071, 18054, 85303 ####[facility] [place] [address], [facility] Urea nitrogen [Mass/Vol] 23 mg/dL Normal 7-25 [facility] Comment on above: Order Comment: Check Chest Tube Position, ON ARRIVAL TO CVU Performed By: #### 0 0071, 32532, 41990 ####[facility] [place] [address], [place] CBC COMPLETE BLOOD COUNTon 0 02-20-2022 Erythrocyte distribution width (RBC) [Ratio] 13.9 % Normal 11.5-15.0 [facility] Comment on above: Order Comment: Check Chest Tube Position, ON ARRIVAL TO CVU Performed By: #### 5 0608 ####[facility] Hematocrit (Bld) [Volume fraction] 33.9 % Low 39.0-50.0 [facility] Comment on above: Order Comment: Check Chest Tube Position, ON ARRIVAL TO CVU Performed By: #### 5 0608 ####[facility] [facility] Hemoglobin (Bld) [Mass/Vol] 11.1 g/dL Low 13.0-17.0 [facility] Comment on above: Order Comment: Check Chest Tube Position, ON ARRIVAL TO CVU Performed By: #### 5 0608 ####[facility] IMM PLATELET FRAC 5.9 % Normal 0.8-6.3 [facility] Comment on above: Order Comment: Check Chest Tube Position, ON ARRIVAL TO CVU Performed By: #### 5 0608 ####[facility] [facility] MCH (RBC) [Entitic mass] 30.2 pg Normal 27.0-33.0 [facility] Comment on above: Order Comment: Check Chest Tube Position, ON ARRIVAL TO CVU Performed By: #### 5 0608 ####[facility] [facility] MCHC (RBC) [Mass/Vol] 32.7 g/dL Normal 32.0-35.0 [facility] Comment on above: Order Comment: Check Chest Tube Position, ON ARRIVAL TO CVU Performed By: #### 5 0608 ####[facility] MCV (RBC) [Entitic vol] 92.4 fL Normal 82.0-98.0 [facility] Comment on above: Order Comment: Check Chest Tube Position, ON ARRIVAL TO CVU Performed By: #### 5 0608 ####[facility] [place] [address], [facility] Nucleated RBC/100 WBC (Bld) [Ratio] 0 % Normal 0-0 [facility] Comment on above: Order Comment: Check Chest Tube Position, ON ARRIVAL TO CVU Performed By: #### 5 0608 ####[facility] [place] [address], [facility] PLAT CNT 98 10*3/uL Low 150-400 [facility] Comment on above: Order Comment: Check Chest Tube Position, ON ARRIVAL TO CVU Performed By: #### 5 0608 ####[facility] RBC (Bld) [#/Vol] 3.67 10*6/uL Low 4.20-5.70 [facility] Comment on above: Order Comment: Check Chest Tube Position, ON ARRIVAL TO CVU Performed By: #### 5 0608 ####[facility] [place] [address], [facility] WBC (Bld) [#/Vol] 9.42 10*3/uL Normal 4.00-10.60 [facility] Comment on above: Order Comment: Check Chest Tube Position, ON ARRIVAL TO CVU Performed By: #### 5 0608 ####[facility] Erythrocyte distribution width (RBC) [Ratio] 13.8 % Normal 11.5-15.0 [facility] Comment on above: Performed By: #### 5 0608 #### [facility] [address] [place] [address], [facility] Hematocrit (Bld) [Volume fraction] 28.6 % Low 39.0-50.0 [facility] Comment on above: Performed By: #### 5 0608 #### [facility] [address] [facility] [place] [address], [facility] Hemoglobin (Bld) [Mass/Vol] 9.7 g/dL Low 13.0-17.0 [facility] Comment on above: Performed By: #### 5 0608 #### [facility] [address] [facility] [address], [facility] IMM PLATELET FRAC 5.0 % Normal 0.8-6.3 [facility] Comment on above: Performed By: #### 5 0608 #### [facility] [address] [facility] [address], [facility] MCH (RBC) [Entitic mass] 31.3 pg Normal 27.0-33.0 [facility] Comment on above: Performed By: #### 5 0608 #### [facility] [address] [facility]. [address] MCHC (RBC) [Mass/Vol] 33.9 g/dL Normal 32.0-35.0 [facility] Comment on above: Performed By: #### 5 0608 #### [facility] [address] [facility] [place] [address], [facility] MCV (RBC) [Entitic vol] 92.3 fL Normal 82.0-98.0 [facility] Comment on above: Performed By: #### 5 0608 #### [facility] [address] [facility] [place] [address], [facility] Nucleated RBC/100 WBC (Bld) [Ratio] 0 % Normal 0-0 [facility] Comment on above: Performed By: #### 5 0608 #### [facility] [address] [place] [address], [facility] PLAT CNT 73 10*3/uL Low 150-400 [facility] Comment on above: Result Comment: RESU LTS CHECKED Performed By: #### 5 0608 #### [facility] [address] [place] [address], [facility] RBC (Bld) [#/Vol] 3.10 10*6/uL Low 4.20-5.70 [facility] Comment on above: Performed By: #### 5 0608 #### [facility] [address] [place] [address], [facility] WBC (Bld) [#/Vol] 7.29 10*3/uL Normal 4.00-10.60 [facility] Comment on above: Performed By: #### 5 0608 #### [facility] [address] [place] [address], [facility] Erythrocyte distribution width (RBC) [Ratio] 13.7 % Normal 11.5-15.0 [facility] Comment on above: Order Comment: No: D o not add to previous draw Performed By: #### 5 0608 #### [facility] [address] [place] [address], [facility] Hematocrit (Bld) [Volume fraction] 39.5 % Normal 39.0-50.0 [facility] Comment on above: Order Comment: No: D o not add to previous draw Performed By: #### 5 0608 #### [facility] [address] [place] [address], [facility] Hemoglobin (Bld) [Mass/Vol] 13.4 g/dL Normal 13.0-17.0 [facility] Comment on above: Order Comment: No: D o not add to previous draw Performed By: #### 5 0608 #### [facility] [address] [facility] [place] [address], [facility] IMM PLATELET FRAC 6.1 % Normal 0.8-6.3 [facility] Comment on above: Order Comment: No: D o not add to previous draw Performed By: #### 5 0608 #### [facility] [address] [place] [address], [facility] MCH (RBC) [Entitic mass] 30.9 pg Normal 27.0-33.0 [facility] Comment on above: Order Comment: No: D o not add to previous draw Performed By: #### 5 0608 #### [facility] [address] [place] [address], [facility] MCHC (RBC) [Mass/Vol] 33.9 g/dL Normal 32.0-35.0 [facility] Comment on above: Order Comment: No: D o not add to previous draw Performed By: #### 5 0608 #### [facility] [address] [place] [address], [facility] MCV (RBC) [Entitic vol] 91.2 fL Normal 82.0-98.0 [facility] Comment on above: Order Comment: No: D o not add to previous draw Performed By: #### 5 0608 #### [facility] [address] [place] [address], [facility] Nucleated RBC/100 WBC (Bld) [Ratio] 0 % Normal 0-0 [facility] Comment on above: Order Comment: No: D o not add to previous draw Performed By: #### 5 0608 #### [facility] [address] [facility] [place] [address], [facility] PLAT CNT 120 10*3/uL Low 150-400 [facility] Comment on above: Order Comment: No: D o not add to previous draw Performed By: #### 5 0608 #### [facility] [address] [facility] [place] [address], [facility] RBC (Bld) [#/Vol] 4.33 10*6/uL Normal 4.20-5.70 [facility] Comment on above: Order Comment: No: D o not add to previous draw Performed By: #### 5 0608 #### [facility] [address] WBC (Bld) [#/Vol] 4.21 10*3/uL Normal 4.00-10.60 [facility] Comment on above: Order Comment: No: D o not add to previous draw Performed By: #### 5 0608 #### [facility] [address] [place] [address], [facility] CBC W/DIFFon 02-20-2022 ABS IMM GRANS 0.0 10*3/uL Normal 0.0-0.2 [facility] Comment on above: Order Comment: No: D o not add to previous draw Performed By: #### 5 0608 #### [address] ABS NEUTROPHILS 9.6 10*3/uL High 1.6-7.6 [facility] Comment on above: Order Comment: No: D o not add to previous draw Performed By: #### 5 0608 #### [facility] [address] [place] [address], [facility] Basophils (Bld) [#/Vol] 0.0 10*3/uL Normal 0.0-0.2 [facility] Comment on above: Order Comment: No: D o not add to previous draw Performed By: #### 5 0608 #### [facility] [address] [place] [address], [facility] Basophils/100 WBC (Bld) 0.2 % Normal 0.0-1.0 [facility] Comment on above: Order Comment: No: D o not add to previous draw Performed By: #### 5 0608 #### [facility] [address] [place] [address], [facility] Eosinophils (Bld) [#/Vol] 0.0 10*3/uL Normal 0.0-0.5 [facility] Comment on above: Order Comment: No: D o not add to previous draw Performed By: #### 5 0608 #### [facility] [address] [place] [address], [facility] Eosinophils/100 WBC (Bld) 0.1 % Normal 0.0-6.0 [facility] Comment on above: Order Comment: No: D o not add to previous draw Performed By: #### 5 0608 #### [facility] [address] [place] [address], [facility] Erythrocyte distribution width (RBC) [Ratio] 14.1 % Normal 11.5-15.0 [facility] Comment on above: Order Comment: No: D o not add to previous draw Performed By: #### 5 0608 #### [facility] [address] [place] [address], [facility] Hematocrit (Bld) [Volume fraction] 35.5 % Low 39.0-50.0 [facility] Comment on above: Order Comment: No: D o not add to previous draw Performed By: #### 5 0608 #### [facility] [address] Hemoglobin (Bld) [Mass/Vol] 11.9 g/dL Low 13.0-17.0 [facility] Comment on above: Order Comment: No: D o not add to previous draw Performed By: #### 5 0608 #### [facility] [address] [facility] [place] [address], [facility] IMM PLATELET FRAC 5.8 % Normal 0.8-6.3 [facility] Comment on above: Order Comment: No: D o not add to previous draw Performed By: #### 5 0608 #### [facility] [address] [facility] [place] [address], [facility] IMMATURE GRANS 0.3 % Normal 0.0-1.0 [facility] Comment on above: Order Comment: No: D o not add to previous draw Performed By: #### 5 0608 #### [facility] [address] Lymphocytes (Bld) [#/Vol] 0.3 10*3/uL Low 1.2-4.0 [facility] Comment on above: Order Comment: No: D o not add to previous draw Performed By: #### 5 0608 #### [facility] [address] [place] [address], [facility] Lymphocytes/100 WBC (Bld) 3.1 % Low 20.0-45.0 [facility] Comment on above: Order Comment: No: D o not add to previous draw Performed By: #### 5 0608 #### [facility] [address] [place] [address], [facility] MCH (RBC) [Entitic mass] 30.6 pg Normal 27.0-33.0 [facility] Comment on above: Order Comment: No: D o not add to previous draw Performed By: #### 5 0608 #### [facility] [address] [place] [address], [facility] MCHC (RBC) [Mass/Vol] 33.5 g/dL Normal 32.0-35.0 [facility] Comment on above: Order Comment: No: D o not add to previous draw Performed By: #### 5 0608 #### [facility] [address] [place] [address], [facility] MCV (RBC) [Entitic vol] 91.3 fL Normal 82.0-98.0 [facility] Comment on above: Order Comment: No: D o not add to previous draw Performed By: #### 5 0608 #### [facility] [address] [place] [address], [facility] Monocytes (Bld) [#/Vol] 0.8 10*3/uL Normal 0.1-1.0 [facility] Comment on above: Order Comment: No: D o not add to previous draw Performed By: #### 5 0608 #### [facility] [address] [place] [address], [facility] MONOS 7.6 % Normal 5.0-12.0 [facility] Comment on above: Order Comment: No: D o not add to previous draw Performed By: #### 5 0608 #### [facility] [address] [place] [address], [facility] Neutrophils/100 WBC (Bld) 88.7 % High 40.0-72.0 [facility] Comment on above: Order Comment: No: D o not add to previous draw Performed By: #### 5 0608 #### [facility] [address] [facility] [place] [id number], [facility] Nucleated RBC/100 WBC (Bld) [Ratio] 0 % Normal 0-0 [facility] Comment on above: Order Comment: No: D o not add to previous draw Performed By: #### 5 0608 #### [facility] [address] [facility] [place] [id number], [place] PLAT CNT 109 10*3/uL Low 150-400 [facility] Comment on above: Order Comment: No: D o not add to previous draw Performed By: #### 5 0608 #### [facility] [address] [facility] [place] [id number], [facility] RBC (Bld) [#/Vol] 3.89 10*6/uL Low 4.20-5.70 [facility] Comment on above: Order Comment: No: D o not add to previous draw Performed By: #### 5 0608 #### [facility] [address] [facility] [place] [address], [place] WBC (Bld) [#/Vol] 10.80 10*3/uL High 4.00-10.60 [facility] Comment on above: Order Comment: No: D o not add to previous draw Performed By: #### 5 0608 #### [facility] [address] [place] [address], [place] COOXIMETRYon 02-20-2022 COHB 2 % Normal [facility] Comment on above: Performed By: #### 3 0739 #### [facility] [address] [place] [address], [facility] METHB 1 % Normal [facility] Comment on above: Performed By: #### 3 0739 #### [facility] [address] [place] [address], [facility] Oxygen saturation in Blood 60.3 % Low 65.0-75.0 [facility] Comment on above: Performed By: #### 3 0739 #### [facility] [address] [place] [address], [facility] THB 12.0 g/dL Normal [facility] Comment on above: Performed By: #### 3 0739 #### [facility] [address] [place] [address], [place] FIBRINOGENon 02-20-2022 FIBRINOGEN 220 mg/dL Normal 150-425 [facility] Comment on above: Performed By: #### 5 6101, 80137, 21680 ####[facility] [place] [address], [facility] LACTATE BLOODon 02-20-2022 Lactate [Moles/Vol] 0.9 mmol/L Normal .5-2.2 [facility] Comment on above: Order Comment: Evalu ate for Pneumothorax Performed By: #### 1 0054 ####[facility] [place] [address], [facility] Lactate [Moles/Vol] 1.1 mmol/L Normal .5-2.2 [facility] Comment on above: Performed By: #### 1 0054 ####[facility] [place] [address], [place] LIVER BATTERYon 02-20-2022 Albumin [Mass/Vol] 3.5 g/dL Normal 3.5-5.7 [facility] Comment on above: Order Comment: evalu ate for Effusion Performed By: #### 1 0070, 17159, 20939, 16662, 71887 ####[facility] [place] [address], [facility] ALKALINE PHOSPH 48 IU/L Normal 34-104 [facility] Comment on above: Order Comment: evalu ate for Effusion Performed By: #### 1 0070, 08007, 54731, 79867, 80275 ####[facility] [place] [address], [facility] ALT [Catalytic activity/Vol] 12 U/L Normal 7-52 [facility] Comment on above: Order Comment: evalu ate for Effusion Performed By: #### 1 0070, 31357, 16773, 30169, 57321 ####[facility] [place] [address], [facility] AST [Catalytic activity/Vol] 19 U/L Normal 13-39 [facility] Comment on above: Order Comment: evalu ate for Effusion Performed By: #### 1 0070, 27517, 13836, 74845, 74962 ####[facility] [place] [address], [place] Bilirubin [Mass/Vol] 1.0 mg/dL Normal 0.3-1.0 [facility] Comment on above: Order Comment: evalu ate for Effusion Performed By: #### 1 0070, 00104, 70256, 53347, 95469 ####[facility] [place] [address], [facility] Bilirubin.direct [Mass/Vol] 0.3 mg/dL High 0.0-0.2 [facility] Comment on above: Order Comment: evalu ate for Effusion Performed By: #### 1 0070, 88860, 12472, 50257, 13124 ####[facility] [place] [address], [place] Protein [Mass/Vol] 5.1 g/dL Low 6.0-8.3 [facility] Comment on above: Order Comment: evalu ate for Effusion Performed By: #### 1 0070, 41526, 13812, 80996, 08323 ####[facility] [place] [address], [place] MAGNESIUM BLOODon 02-20-2022 Magnesium [Mass/Vol] 2.2 mg/dL Normal 1.9-2.7 [facility] Comment on above: Order Comment: Evalu ate for Pneumothorax Performed By: #### 1 0070, 31924, 41994, 88299, 26967 ####[facility] [place] [address], [place] Magnesium [Mass/Vol] 2.5 mg/dL Normal 1.9-2.7 [facility] Comment on above: Performed By: #### 1 0070, 29808 ####[facility] [place] [address], [place] Magnesium [Mass/Vol] 1.9 mg/dL Normal 1.9-2.7 [facility] Comment on above: Order Comment: Check Chest Tube Position, ON ARRIVAL TO CVU Performed By: #### 0 0071, 10346, 85434 ####[facility] [place] [address], [place] PERFUSION BLOOD PANELon 01-23 BASE EXCESS 0.0 mmol/L Normal -2.0-3.0 [facility] Comment on above: Performed By: #### 3 1595 #### [facility] [address] [place] [address], [place] Glucose [Mass/Vol] 106 mg/dL High 70-105 [facility] Comment on above: Performed By: #### 3 1595 #### [facility] [address] [place] [address], [place] Hematocrit (Bld) [Volume fraction] 28 % Low 38-51 [facility] Comment on above: Performed By: #### 3 1595 #### [facility] [address] [place] [address], [facility] Hemoglobin (Bld) [Mass/Vol] 9.5 g/dL Low 12.0-17.0 [facility] Comment on above: Performed By: #### 3 1595 #### [facility] [address] [facility] [place] [place] [address], [facility] IONIZED CALCIUM 1.23 mmol/L Normal 1.12-1.32 [facility] Comment on above: Performed By: #### 3 1595 #### [facility] [address] [facility] [place] [address], [facility] Oxygen (Bld) [Partial pressure] 425.0 mm[Hg] High 80.0-105.0 [facility] Comment on above: Performed By: #### 3 1595 #### [facility] [address] [facility] [address], [facility] PCO2 46.5 mmHg High 35.0-45.0 [facility] Comment on above: Performed By: #### 3 1595 #### [facility] [address] [facility] [place] [address], [facility] pH (Bld) 7.36 [pH] Normal 7.35-7.45 [facility] Comment on above: Performed By: #### 3 1595 #### [facility] [address] [place] [address], [facility] Potassium [Moles/Vol] 4.0 mmol/L Normal 3.5-4.9 [facility] Comment on above: Performed By: #### 3 1595 #### [facility] [address] [place] [address], [facility] Sodium [Moles/Vol] 143 mmol/L Normal 138-146 [facility] Comment on above: Performed By: #### 3 1595 #### [facility] [address] [place] [address], [facility] BASE EXCESS 1.0 mmol/L Normal -2.0-3.0 [facility] Comment on above: Performed By: #### 8 5499 #### [facility] [address] [place] [address], [place] Glucose [Mass/Vol] 112 mg/dL High 70-105 [facility] Comment on above: Performed By: #### 8 5499 #### [facility] [address] [place] [address], [place] Hematocrit (Bld) [Volume fraction] 26 % Low 38-51 [facility] Comment on above: Performed By: #### 8 5499 #### [facility] [address] [place] [address], [place] Hemoglobin (Bld) [Mass/Vol] 8.8 g/dL Low 12.0-17.0 [facility] Comment on above: Performed By: #### 8 5499 #### [facility] [address] [place] [address], [facility] IONIZED CALCIUM 1.30 mmol/L Normal 1.12-1.32 [facility] Comment on above: Performed By: #### 8 5499 #### [facility] [address] [place] [address], [place] Oxygen (Bld) [Partial pressure] 390.0 mm[Hg] High 80.0-105.0 [facility] Comment on above: Performed By: #### 8 5499 #### [facility] [address] [place] [address], [place] PCO2 42.1 mmHg Normal 35.0-45.0 [facility] Comment on above: Performed By: #### 8 5499 #### [facility] [address] [place] [address], [place] pH (Bld) 7.39 [pH] Normal 7.35-7.45 [facility] Comment on above: Performed By: #### 8 5499 #### [facility] [address] [place] [address], [facility] Potassium [Moles/Vol] 4.1 mmol/L Normal 3.5-4.9 [facility] Comment on above: Performed By: #### 8 5499 #### [facility] [address] [place] [address], [facility] Sodium [Moles/Vol] 143 mmol/L Normal 138-146 [facility] Comment on above: Performed By: #### 8 5499 #### [facility] [address] [facility] [address], [facility] BASE EXCESS 2.0 mmol/L Normal -2.0-3.0 [facility] Comment on above: Performed By: #### 8 5499 #### [facility] [address] [facility] [address] Glucose [Mass/Vol] 119 mg/dL High 70-105 [facility] Comment on above: Performed By: #### 8 5499 #### [facility] [address] Hematocrit (Bld) [Volume fraction] 28 % Low 38-51 [facility] Comment on above: Performed By: #### 8 5499 #### [facility] [address] Hemoglobin (Bld) [Mass/Vol] 9.5 g/dL Low 12.0-17.0 [facility] Comment on above: Performed By: #### 8 5499 #### [facility] [address] [facility] [address], [facility] IONIZED CALCIUM 1.11 mmol/L Low 1.12-1.32 [facility] Comment on above: Performed By: #### 8 5499 #### [facility] [address] [place] [address], [facility] Oxygen (Bld) [Partial pressure] 460.0 mm[Hg] High 80.0-105.0 [facility] Comment on above: Performed By: #### 8 5499 #### [facility] [address] [place] [address], [place] PCO2 40.0 mmHg Normal 35.0-45.0 [facility] Comment on above: Performed By: #### 8 5499 #### [facility] [address] [place] [address], [place] pH (Bld) 7.43 [pH] Normal 7.35-7.45 [facility] Comment on above: Performed By: #### 8 5499 #### [facility] [address] [place] [address], [place] Potassium [Moles/Vol] 4.6 mmol/L Normal 3.5-4.9 [facility] Comment on above: Performed By: #### 8 5499 #### [facility] [address] [place] [address], [place] Sodium [Moles/Vol] 141 mmol/L Normal 138-146 [facility] Comment on above: Performed By: #### 8 5499 #### [facility] [address] [place] [address], [place] BASE EXCESS 2.0 mmol/L Normal -2.0-3.0 [facility] Comment on above: Performed By: #### 8 5499 #### [facility] [address] [place] [address], [place] Glucose [Mass/Vol] 112 mg/dL High 70-105 [facility] Comment on above: Performed By: #### 8 5499 #### [facility] [address] [place] [address], [place] Hematocrit (Bld) [Volume fraction] 26 % Low 38-51 [facility] Comment on above: Performed By: #### 8 5499 #### [facility] [address] [place] [address], [facility] Hemoglobin (Bld) [Mass/Vol] 8.8 g/dL Low 12.0-17.0 [facility] Comment on above: Performed By: #### 8 5499 #### [facility] [address] [facility] [place] [address], [facility] IONIZED CALCIUM 1.09 mmol/L Low 1.12-1.32 [facility] Comment on above: Performed By: #### 8 5499 #### [facility] [address] [facility] [place] [address], [facility] Oxygen (Bld) [Partial pressure] 403.0 mm[Hg] High 80.0-105.0 [facility] Comment on above: Performed By: #### 8 5499 #### [facility] [address] [facility] [address], [facility] PCO2 40.8 mmHg Normal 35.0-45.0 [facility] Comment on above: Performed By: #### 8 5499 #### [facility] [address] [facility] [place] [address], [facility] pH (Bld) 7.43 [pH] Normal 7.35-7.45 [facility] Comment on above: Performed By: #### 8 5499 #### [facility] [address] [place] [address], [facility] Potassium [Moles/Vol] 4.8 mmol/L Normal 3.5-4.9 [facility] Comment on above: Performed By: #### 8 5499 #### [facility] [address] [place] [address], [facility] Sodium [Moles/Vol] 141 mmol/L Normal 138-146 [facility] Comment on above: Performed By: #### 8 5499 #### [facility] [address] [place] [address], [facility] BASE EXCESS 4.0 mmol/L High -2.0-3.0 [facility] Comment on above: Performed By: #### 8 5499 #### [facility] [address] [place] [address], [place] Glucose [Mass/Vol] 102 mg/dL Normal 70-105 [facility] Comment on above: Performed By: #### 8 5499 #### [facility] [address] [place] [address], [facility] Hematocrit (Bld) [Volume fraction] 26 % Low 38-51 [facility] Comment on above: Performed By: #### 8 5499 #### [facility] [address] [place] [address], [facility] Hemoglobin (Bld) [Mass/Vol] 8.8 g/dL Low 12.0-17.0 [facility] Comment on above: Performed By: #### 8 5499 #### [facility] [address] [place] [address], [facility] IONIZED CALCIUM 1.04 mmol/L Low 1.12-1.32 [facility] Comment on above: Performed By: #### 8 5499 #### [facility] [address] [place] [address], [facility] Oxygen (Bld) [Partial pressure] 526.0 mm[Hg] High 80.0-105.0 [facility] Comment on above: Performed By: #### 8 5499 #### [facility] [address] [place] [address], [place] PCO2 40.3 mmHg Normal 35.0-45.0 [facility] Comment on above: Performed By: #### 8 5499 #### [facility] [address] [place] [address], [place] pH (Bld) 7.46 [pH] High 7.35-7.45 [facility] Comment on above: Performed By: #### 8 5499 #### [facility] [address] [place] [address], [facility] Potassium [Moles/Vol] 4.8 mmol/L Normal 3.5-4.9 [facility] Comment on above: Performed By: #### 8 5499 #### [facility] [address] [place] [address], [facility] Sodium [Moles/Vol] 140 mmol/L Normal 138-146 [facility] Comment on above: Performed By: #### 8 5499 #### [facility] [address] [facility] [place] [address], [facility] BASE EXCESS 0.0 mmol/L Normal -2.0-3.0 [facility] Comment on above: Performed By: #### 8 5499 #### [facility] [address] [place] [address], [facility] Glucose [Mass/Vol] 97 mg/dL Normal 70-105 [facility] Comment on above: Performed By: #### 8 5499 #### [facility] [address] [facility] [place] [address], [facility] Hematocrit (Bld) [Volume fraction] 27 % Low 38-51 [facility] Comment on above: Performed By: #### 8 5499 #### [facility] [address] [place] [address], [facility] Hemoglobin (Bld) [Mass/Vol] 9.2 g/dL Low 12.0-17.0 [facility] Comment on above: Performed By: #### 8 5499 #### [facility] [address] [place] [address], [facility] IONIZED CALCIUM 1.03 mmol/L Low 1.12-1.32 [facility] Comment on above: Performed By: #### 8 5499 #### [facility] [address] [place] [address], [place] Oxygen (Bld) [Partial pressure] 49.0 mm[Hg] Normal [facility] Comment on above: Performed By: #### 8 5499 #### [facility] [address] [place] [address], [place] PCO2 44.2 mmHg Normal 41.0-51.0 [facility] Comment on above: Performed By: #### 8 5499 #### [facility] [address] [place] [address], [place] pH (Bld) 7.37 [pH] Normal 7.31-7.41 [facility] Comment on above: Performed By: #### 8 5499 #### [facility] [address] [place] [address], [place] Potassium [Moles/Vol] 4.5 mmol/L Normal 3.5-4.9 [facility] Comment on above: Performed By: #### 8 5499 #### [facility] [address] [place] [address], [place] Sodium [Moles/Vol] 141 mmol/L Normal 138-146 [facility] Comment on above: Performed By: #### 8 5499 #### [facility] [address] [place] [address], [place] BASE EXCESS -3.0 mmol/L Low -2.0-3.0 [facility] Comment on above: Performed By: #### 8 5499 #### [facility] [address] [place] [address], [place] Glucose [Mass/Vol] 115 mg/dL High 70-105 [facility] Comment on above: Performed By: #### 8 5499 #### [facility] [address] [place] [address], [place] Hematocrit (Bld) [Volume fraction] 34 % Low 38-51 [facility] Comment on above: Performed By: #### 8 5499 #### [facility] [address] [place] [address], [facility] Hemoglobin (Bld) [Mass/Vol] 11.6 g/dL Low 12.0-17.0 [facility] Comment on above: Performed By: #### 8 5499 #### [facility] [address] [facility] [place] [address], [facility] IONIZED CALCIUM 1.27 mmol/L Normal 1.12-1.32 [facility] Comment on above: Performed By: #### 8 5499 #### [facility] [address] [facility] [place] [address], [facility] Oxygen (Bld) [Partial pressure] 249.0 mm[Hg] High 80.0-105.0 [facility] Comment on above: Performed By: #### 8 5499 #### [facility] [address] [facility] [place] [place] [address], [facility] PCO2 51.3 mmHg High 35.0-45.0 [facility] Comment on above: Performed By: #### 8 5499 #### [facility] [address] [facility] [place] [address], [facility] pH (Bld) 7.29 [pH] Low 7.35-7.45 [facility] Comment on above: Performed By: #### 8 5499 #### [facility] [address] [place] [address], [facility] Potassium [Moles/Vol] 3.9 mmol/L Normal 3.5-4.9 [facility] Comment on above: Performed By: #### 8 5499 #### [facility] [address] [place] [address], [facility] Sodium [Moles/Vol] 142 mmol/L Normal 138-146 [facility] Comment on above: Performed By: #### 8 5499 #### [facility] [address] [place] [address], [facility] BASE EXCESS -1.0 mmol/L Normal -2.0-3.0 [facility] Comment on above: Performed By: #### 3 1595 #### [facility] [address] [place] [address], [place] Glucose [Mass/Vol] 104 mg/dL Normal 70-105 [facility] Comment on above: Performed By: #### 3 1595 #### [facility] [address] [place] [address], [facility] Hematocrit (Bld) [Volume fraction] 37 % Low 38-51 [facility] Comment on above: Performed By: #### 3 1595 #### [facility] [address] [place] [address], [facility] Hemoglobin (Bld) [Mass/Vol] 12.6 g/dL Normal 12.0-17.0 [facility] Comment on above: Performed By: #### 3 1595 #### [facility] [address] [place] [address], [facility] IONIZED CALCIUM 1.34 mmol/L High 1.12-1.32 [facility] Comment on above: Performed By: #### 3 1595 #### [facility] [address] [place] [address], [facility] Oxygen (Bld) [Partial pressure] 187.0 mm[Hg] High 80.0-105.0 [facility] Comment on above: Performed By: #### 3 1595 #### [facility] [address] [place] [address], [place] PCO2 45.2 mmHg High 35.0-45.0 [facility] Comment on above: Performed By: #### 3 1595 #### [facility] [address] [place] [address], [place] pH (Bld) 7.35 [pH] Normal 7.35-7.45 [facility] Comment on above: Performed By: #### 3 1595 #### [facility] [address] [place] [address], [facility] Potassium [Moles/Vol] 4.2 mmol/L Normal 3.5-4.9 [facility] Comment on above: Performed By: #### 3 1595 #### [facility] [address] [place] [address], [facility] Sodium [Moles/Vol] 141 mmol/L Normal 138-146 [facility] Comment on above: Performed By: #### 3 1595 #### [facility] [address] [facility] [place] [address], [facility] PHOSPHORUS BLOODon Phosphate [Mass/Vol] 4.1 mg/dL Normal 2.5-5.0 [facility] Comment on above: Order Comment: Evalu ate for Pneumothorax Performed By: #### 1 0070, 63573, 70692, 07310, 02775 ####[facility] Phosphate [Mass/Vol] 3.9 mg/dL Normal 2.5-5.0 [facility] Comment on above: Order Comment: Check Chest Tube Position, ON ARRIVAL TO CVU Performed By: #### 0 0071, 18467, 82758 ####[facility] PLATELET APHERESIS 1 UNITon 02-20-2022 PRODUCT CODE 1 [id number] Normal [facility] Comment on above: Performed By: #### 3 2044 #### [facility] [address] [place] [address], [facility] PRODUCT STATUS 1 PT Normal [facility] Comment on above: Result Comment: Resu lt changed by IF on 02/20/2022 11:57. The previous value was XM. Result changed by IF on 02/21/2022 00:30. The previous value was IS. Performed By: #### 3 2043 #### [facility] [address] [place] [address], [place] UNIT ABO 1 A Normal [facility] Comment on above: Performed By: #### 3 2043 #### [facility] [address] [place] [address], [place] UNIT ID 1 [id number] Normal [facility] Comment on above: Performed By: #### 3 2043 #### [facility] [address] [place] [address], [place] UNIT RH 1 Positive Normal [facility] Comment on above: Performed By: #### 3 2043 #### [facility] [address] [place] [address], [place] PRODUCT CODE 1 [id number] Normal [facility] Comment on above: Performed By: #### 3 2043 #### [facility] [address] [place] [address], [place] PRODUCT STATUS 1 RE Normal [facility] Comment on above: Result Comment: Resu lt changed by IF on 02/21/2022 08:31. The previous value was XM. Performed By: #### 3 2043 #### [facility] [address] [place] [address], [place] UNIT ABO 1 A Normal [facility] Comment on above: Performed By: #### 3 2043 #### [facility] [address] [place] [address], [place] UNIT ID 1 [id number] Normal [facility] Comment on above: Performed By: #### 3 2043 #### [facility] [address] [place] [address], [place] UNIT RH 1 Positive Normal [facility] Comment on above: Performed By: #### 3 2043 #### [facility] [address] [place] [address], [facility] PLATELET FUNCTION SCREENon 0 02-20-2022 COLLAGEN/ADP 101 sec Normal 56-110 [facility] Comment on above: Result Comment: This pattern [...] be warranted. Performed By: #### 8 4505 ####[facility] [place] [address], [facility] COLLAGEN/EPINEPHRINE 174 sec High 82-159 [facility] Comment on above: Performed By: #### 8 4505 ####[facility] [facility] [place] [place] [address], [facility] POC GLUCOSE LABon 02-20-2022 Glucose [Mass/Vol] 141 mg/dL High 70-100 [facility] Comment on above: Performed By: #### 8 5499 #### [facility] [address] [place] [address], [facility] Glucose [Mass/Vol] 122 mg/dL High 70-100 [facility] Comment on above: Performed By: #### 3 1595 #### [facility] [address] [place] [address], [facility] Glucose [Mass/Vol] 101 mg/dL High 70-100 [facility] Comment on above: Performed By: #### 3 1595 #### [facility] [address] [facility] [place] [place] [address], [facility] POC SARS COV2 IDon 2 SARS-CoV-2 (COVID-19) RNA JJ+probe Ql (Unsp spec) Negative Normal NEGATIVE [facility] Comment on above: Result Comment: ID N [...] Accreditation. Performed By: #### 3 1595 #### [address] PORTABLE CHEST 1 VIEWon 01-23 PORTABLE CHEST 1 VIEW [facility] Department of Radiology [address] [place] [id number] ======== Patient Name: IGNACIO AMIN : 1945 Sex: M Age: Race: White Pt. Location: [id number] Patient Status: I Ordered Date: 02/20/2022 12:30:00 [...] left Electronically signed: Quinten Nagel. Transcribed by: [email or web address], User Resident: Electronically Signed by: QUINTEN NAGEL @ 02/20/2022 03:53 PM Normal [facility] Comment on above: Order Comment: Check Chest Tube Position, ON ARRIVAL TO CVU PROTHROMBIN TIMEon INR Coag (PPP) [Relative time] 1.34 {INR} High 0.91-1.16 [facility] Comment on above: Order Comment: Check Chest [...] CHEST 1995;108:231S-246S. Performed By: #### 5 6101, 53645 ####[facility] [facility] [address], [facility] PT Coag (PPP) [Time] 16.4 s High 12.3-14.8 [facility] Comment on above: Order Comment: Check Chest Tube Position, ON ARRIVAL TO CVU Result Comment: ALL RESULTS MUST BE INTERPRETED WITH RESPECT TO BLOOD DRAWING ARTIFACT OR DILUTION ERROR OF ANTICOAGULANT AT THE TIME OF SAMPLING. Performed By: #### 5 6101, 10356 ####[facility] [facility] [address], [facility] INR Coag (PPP) [Relative time] 1.72 {INR} High 0.91-1.16 [facility] Comment on above: Result Comment: ACC[facility] P RECOMMENDED INR FOR [...] CHEST 1995;[id number]-246S. Performed By: #### 5 6101, 02006, 59735 ####[facility] [facility] [address], [facility] PT Coag (PPP) [Time] 19.9 s High 12.3-14.8 [facility] Comment on above: Result Comment: ALL RESULTS MUST BE INTERPRETED WITH RESPECT TO BLOOD DRAWING ARTIFACT OR DILUTION ERROR OF ANTICOAGULANT AT THE TIME OF SAMPLING. Performed By: #### 5 6101, 16579, 53469 ####[facility] [facility] [address], [facility] INR Coag (PPP) [Relative time] 1.07 {INR} Normal 0.91-1.16 [facility] Comment on above: Order Comment: Check Chest [...] CHEST 1995;[id number]-[id number]. Performed By: #### 3 0477, 14637, 21407 ####[facility] [facility] [address], [facility] PT Coag (PPP) [Time] 13.9 s Normal 12.3-14.8 [facility] Comment on above: Order Comment: Check Chest Tube Position, ON ARRIVAL TO CVU Result Comment: ALL RESULTS MUST BE INTERPRETED WITH RESPECT TO BLOOD DRAWING ARTIFACT OR DILUTION ERROR OF ANTICOAGULANT AT THE TIME OF SAMPLING. Performed By: #### 3 0477, 51368, 88684 ####[facility] TROPONIN-Ion 02-20-2022 Troponin I.cardiac [Mass/Vol] 1.58 ng/mL Critically high 0.00-0.04 [facility] Comment on above: Order Comment: Evalu ate for Pneumothorax Result Comment: M-TR OPONIN INITIAL CRITICAL HIGH; RESPUN AND RETESTED M-CRITICAL RESULT(S) REVIEWED, CALLED TO AND READ BACK BY VINH MARADIAGA RN ON 02/20/2022 AT 17:27 REFERENCE RANGES: 0.00 - 0.04 ng/ml NORMAL 0.05 - 0.50 ng/ml INDETERMINATE > 0.50 ng/ml CONSISTENT WITH AN M.I. Performed By: #### 1 0070, 71656, 98488, 62763, 37424 ####[facility] UFH HEPARIN ASSAYon 02-21-20 22 UNFRACTIONATED HEPARIN 0.44 IU/mL Normal 0.30-0.70 [facility] Comment on above: Result Comment: Andria roxaban and Apixaban will interfere with the anti Xa assay used to monitor UFH and LMWH. Performed By: #### 3 0477, 99808, 45456 ####[facility] CBC COMPLETE BLOOD COUNTon 0 02-19-2022 Erythrocyte distribution width (RBC) [Ratio] 13.7 % Normal 11.5-15.0 [facility] Comment on above: Order Comment: No: D o not add to previous draw Performed By: #### 5 0608 #### [facility] [address] Hematocrit (Bld) [Volume fraction] 37.9 % Low 39.0-50.0 [facility] Comment on above: Order Comment: No: D o not add to previous draw Performed By: #### 5 0608 #### [facility] [address] [place] [address], [facility] Hemoglobin (Bld) [Mass/Vol] 13.0 g/dL Normal 13.0-17.0 [facility] Comment on above: Order Comment: No: D o not add to previous draw Performed By: #### 5 0608 #### [facility] [address] [place] [address], [facility] IMM PLATELET FRAC 5.4 % Normal 0.8-6.3 [facility] Comment on above: Order Comment: No: D o not add to previous draw Performed By: #### 5 0608 #### [facility] [address] [facility] [place] [address], [facility] MCH (RBC) [Entitic mass] 31.2 pg Normal 27.0-33.0 [facility] Comment on above: Order Comment: No: D o not add to previous draw Performed By: #### 5 0608 #### [facility] [address] [facility] [place] [place] [address], [facility] MCHC (RBC) [Mass/Vol] 34.3 g/dL Normal 32.0-35.0 [facility] Comment on above: Order Comment: No: D o not add to previous draw Performed By: #### 5 0608 #### [facility] [address] [facility] [place] [address], [facility] MCV (RBC) [Entitic vol] 90.9 fL Normal 82.0-98.0 [facility] Comment on above: Order Comment: No: D o not add to previous draw Performed By: #### 5 0608 #### [facility] [address] [facility] [address], [facility] Nucleated RBC/100 WBC (Bld) [Ratio] 0 % Normal 0-0 [facility] Comment on above: Order Comment: No: D o not add to previous draw Performed By: #### 5 0608 #### [facility] [address] [place] [address], [place] PLAT CNT 123 10*3/uL Low 150-400 [facility] Comment on above: Order Comment: No: D o not add to previous draw Performed By: #### 5 0608 #### [facility] [address] [place] [address], [place] RBC (Bld) [#/Vol] 4.17 10*6/uL Low 4.20-5.70 [facility] Comment on above: Order Comment: No: D o not add to previous draw Performed By: #### 5 0608 #### [facility] [address] [place] [address], [place] WBC (Bld) [#/Vol] 4.86 10*3/uL Normal 4.00-10.60 [facility] Comment on above: Order Comment: No: D o not add to previous draw Performed By: #### 5 0608 #### [facility] [address] [place] [address], [place] RBC'S 4 UNITSon 02-19-2022 CROSSMATCH INTERP 1 COMP Normal [facility] Comment on above: Order Comment: Check Chest Tube Position, ON ARRIVAL TO CVU Performed By: #### 8 6004 ####[facility] [place] [address], [place] CROSSMATCH INTERP 2 COMP Normal [facility] Comment on above: Order Comment: Check Chest Tube Position, ON ARRIVAL TO CVU Performed By: #### 8 6004 ####[facility] [place] [address], [place] CROSSMATCH INTERP 3 COMP Normal [facility] Comment on above: Order Comment: Check Chest Tube Position, ON ARRIVAL TO CVU Performed By: #### 8 6004 ####[facility] [place] [address], [place] CROSSMATCH INTERP 4 COMP Normal [facility] Comment on above: Order Comment: Check Chest Tube Position, ON ARRIVAL TO CVU Performed By: #### 8 6004 ####[facility] [place] [address], [facility] PRODUCT CODE 1 E0685 Normal [facility] Comment on above: Order Comment: Check Chest Tube Position, ON ARRIVAL TO CVU Performed By: #### 8 6004 ####[facility] [place] [address], [facility] PRODUCT CODE 2 E0685 Normal [facility] Comment on above: Order Comment: Check Chest Tube Position, ON ARRIVAL TO CVU Performed By: #### 8 6004 ####[facility] [place] [address], [facility] PRODUCT CODE 3 E0686 Normal [facility] Comment on above: Order Comment: Check Chest Tube Position, ON ARRIVAL TO CVU Performed By: #### 8 6004 ####[facility] [place] [address], [facility] PRODUCT CODE 4 E0336 Normal [facility] Comment on above: Order Comment: Check Chest Tube Position, ON ARRIVAL TO CVU Performed By: #### 8 6004 ####[facility] [place] [address], [facility] PRODUCT STATUS 1 PT Normal [facility] Comment on above: Order Comment: Check Chest [...] was IS. Performed By: #### 8 6004 ####[facility] [place] [address], [facility] PRODUCT STATUS 2 RE Normal [facility] Comment on above: Order Comment: Check Chest [...] was XX. Performed By: #### 8 6004 ####[facility] [facility] [address], [facility] PRODUCT STATUS 3 PT Normal [facility] Comment on above: Order Comment: Check Chest [...] was IS. Performed By: #### 8 6004 ####[facility] [facility] [address], [facility] PRODUCT STATUS 4 RE Normal [facility] Comment on above: Order Comment: Check Chest [...] was XX. Performed By: #### 8 6004 ####[facility] [facility] [address], [facility] UNIT ABO 1 O Normal [facility] Comment on above: Order Comment: Check Chest Tube Position, ON ARRIVAL TO CVU Performed By: #### 8 6004 ####[facility] [place] [address], [facility] UNIT ABO 2 O Normal [facility] Comment on above: Order Comment: Check Chest Tube Position, ON ARRIVAL TO CVU Performed By: #### 8 6004 ####[facility] [place] [address], [facility] UNIT ABO 3 O Normal [facility] Comment on above: Order Comment: Check Chest Tube Position, ON ARRIVAL TO CVU Performed By: #### 8 6004 ####[facility] [place] [address], [facility] UNIT ABO 4 O Normal [facility] Comment on above: Order Comment: Check Chest Tube Position, ON ARRIVAL TO CVU Performed By: #### 8 6004 ####[facility] [place] [address], [facility] UNIT ID 1 [id number] Normal [facility] Comment on above: Order Comment: Check Chest Tube Position, ON ARRIVAL TO CVU Performed By: #### 8 6004 ####[facility] [place] [address], [facility] UNIT ID 2 [id number] Normal [facility] Comment on above: Order Comment: Check Chest Tube Position, ON ARRIVAL TO CVU Performed By: #### 8 6004 ####[facility] [place] [address], [facility] UNIT ID 3 [id number] Normal [facility] Comment on above: Order Comment: Check Chest Tube Position, ON ARRIVAL TO CVU Performed By: #### 8 6004 ####[facility] [place] [address], [facility] UNIT ID 4 [id number] Normal [facility] Comment on above: Order Comment: Check Chest Tube Position, ON ARRIVAL TO CVU Performed By: #### 8 6004 ####[facility] [place] [address], [facility] UNIT RH 1 Positive Normal [facility] Comment on above: Order Comment: Check Chest Tube Position, ON ARRIVAL TO CVU Performed By: #### 8 6004 ####[facility] [place] [address], [facility] UNIT RH 2 Positive Normal [facility] Comment on above: Order Comment: Check Chest Tube Position, ON ARRIVAL TO CVU Performed By: #### 8 6004 ####[facility] [place] [address], [facility] UNIT RH 3 Positive Normal [facility] Comment on above: Order Comment: Check Chest Tube Position, ON ARRIVAL TO CVU Performed By: #### 8 6004 ####[facility] [place] [address], [facility] UNIT RH 4 Positive Normal [facility] Comment on above: Order Comment: Check Chest Tube Position, ON ARRIVAL TO CVU Performed By: #### 8 6004 ####[facility] [place] [address], [facility] TYPE AND SCREENon 02-19-2022 ABO INTERPRETATION O Normal [facility] Comment on above: Performed By: #### 3 2043 #### [facility] [address] [place] [address], [facility] RH INTERPRETATION Positive Normal [facility] Comment on above: Performed By: #### 3 2043 #### [facility] [address] [place] [address], [facility] UFH HEPARIN ASSAYon 02-20-20 22 UNFRACTIONATED HEPARIN 0.73 IU/mL High 0.30-0.70 [facility] Comment on above: Result Comment: [place] roxaban and Apixaban will interfere with the anti Xa assay used to monitor UFH and LMWH. Performed By: #### 3 0477 ####[facility] [place] [address], [facility] UNFRACTIONATED HEPARIN 0.78 IU/mL High 0.30-0.70 [facility] Comment on above: Result Comment: [place] roxaban and Apixaban will interfere with the anti Xa assay used to monitor UFH and LMWH. Performed By: #### 3 0477 ####[facility] [place] [address], [facility] UNFRACTIONATED HEPARIN 0.76 IU/mL High 0.30-0.70 [facility] Comment on above: Result Comment: [place] roxaban and Apixaban will interfere with the anti Xa assay used to monitor UFH and LMWH. Performed By: #### 3 0477 ####[facility] [facility].[address] BASIC METABOLIC PANELon 08-2 Calcium [Mass/Vol] 9.1 mg/dL Normal 8.6-10.3 [facility] Comment on above: Order Comment: Evalu ate for Pneumothorax Performed By: #### 1 69, 90833 ####[facility] [facility] [place] [address], [facility] Chloride [Moles/Vol] 109 mmol/L High 98-107 [facility] Comment on above: Order Comment: Evalu ate for Pneumothorax Performed By: #### 1 69, 21376 ####[facility] [facility] [id number], [facility] CO2 [Moles/Vol] 27 mmol/L Normal 21-31 [facility] Comment on above: Order Comment: Evalu ate for Pneumothorax Performed By: #### 1 69, 77215 ####[facility] [facility] [address], [facility] Creatinine [Mass/Vol] 0.86 mg/dL Normal 0.70-1.30 [facility] Comment on above: Order Comment: Evalu ate for Pneumothorax Performed By: #### 1 69, 85666 ####[facility] [place] [address], [facility] GFR/1.73 sq M.predicted among non-blacks MDRD (S/P/Bld) [Vol rate/Area] mL/min/{1.73_m2} Normal >60 [facility] Comment on above: Order Comment: Evalu ate for Pneumothorax Result Comment: [facility]'s estimated glomerular filtration rate (eGFR) will no [...] of individuals. Performed By: #### 1 69, 34625 ####[facility] [facility] [place] [address], [facility] Glucose [Mass/Vol] 92 mg/dL Normal 70-100 [facility] Comment on above: Order Comment: Evalu ate for Pneumothorax Performed By: #### 1 69, 15263 ####[facility] [facility] [place] [place] [address], [place] Potassium [Moles/Vol] 4.0 mmol/L Normal 3.5-5.1 [facility] Comment on above: Order Comment: Evalu ate for Pneumothorax Performed By: #### 1 69, 45345 ####[facility] [place] [address], [place] Sodium [Moles/Vol] 141 mmol/L Normal 136-145 [facility] Comment on above: Order Comment: Evalu ate for Pneumothorax Performed By: #### 1 69, 72626 ####[facility] Urea nitrogen [Mass/Vol] 23 mg/dL Normal 7-25 [facility] Comment on above: Order Comment: Evalu ate for Pneumothorax Performed By: #### 1 0070, 06636 ####[facility] [facility] CBC COMPLETE BLOOD COUNTon 02-18-2022 Erythrocyte distribution width (RBC) [Ratio] 13.7 % Normal 11.5-15.0 [facility] Comment on above: Order Comment: No: D o not add to previous draw Performed By: #### 5 0608 #### [facility] [address] [facility] Hematocrit (Bld) [Volume fraction] 40.8 % Normal 39.0-50.0 [facility] Comment on above: Order Comment: No: D o not add to previous draw Performed By: #### 5 0608 #### [facility] [address] Hemoglobin (Bld) [Mass/Vol] 13.7 g/dL Normal 13.0-17.0 [facility] Comment on above: Order Comment: No: D o not add to previous draw Performed By: #### 5 0608 #### [facility] [address] [place] [address], [facility] IMM PLATELET FRAC 6.8 % High 0.8-6.3 [facility] Comment on above: Order Comment: No: D o not add to previous draw Performed By: #### 5 0608 #### [facility] [address] [facility] [place] [address], [facility] MCH (RBC) [Entitic mass] 31.4 pg Normal 27.0-33.0 [facility] Comment on above: Order Comment: No: D o not add to previous draw Performed By: #### 5 0608 #### [facility] [address] MCHC (RBC) [Mass/Vol] 33.6 g/dL Normal 32.0-35.0 [facility] Comment on above: Order Comment: No: D o not add to previous draw Performed By: #### 5 0608 #### [facility] [address] [place] [id number], [facility] MCV (RBC) [Entitic vol] 93.6 fL Normal 82.0-98.0 [facility] Comment on above: Order Comment: No: D o not add to previous draw Performed By: #### 5 0608 #### [facility] [address] [place] [address], [facility] Nucleated RBC/100 WBC (Bld) [Ratio] 0 % Normal 0-0 [facility] Comment on above: Order Comment: No: D o not add to previous draw Performed By: #### 5 0608 #### [facility] [address] [place] [address], [facility] PLAT CNT 130 10*3/uL Low 150-400 [facility] Comment on above: Order Comment: No: D o not add to previous draw Performed By: #### 5 0608 #### [facility] [address] [facility] [place] [address], [facility] RBC (Bld) [#/Vol] 4.36 10*6/uL Normal 4.20-5.70 [facility] Comment on above: Order Comment: No: D o not add to previous draw Performed By: #### 5 0608 #### [facility] [address] [place] [id number], [facility] WBC (Bld) [#/Vol] 6.17 10*3/uL Normal 4.00-10.60 [facility] Comment on above: Order Comment: No: D o not add to previous draw Performed By: #### 5 0608 #### [facility] [address] [place] [id number], [facility] MAGNESIUM BLOODon 02-18-2022 Magnesium [Mass/Vol] 2.0 mg/dL Normal 1.9-2.7 [facility] Comment on above: Order Comment: Evalu ate for Pneumothorax Performed By: #### 1 0070, 10807 ####[facility] [facility].[address] UFH HEPARIN ASSAYon 02-19-20 UNFRACTIONATED HEPARIN 0.78 IU/mL High 0.30-0.70 [facility] Comment on above: Result Comment: [place] roxaban and Apixaban will interfere with the anti Xa assay used to monitor UFH and LMWH. Performed By: #### 3 0477 ####[facility] POC SARS COV2 ANTIGEN NEGATI VEon 02-17-2022 POC SARS COV2 ANTIGEN NEG Negative Normal NEGATIVE [facility] Comment on above: Result Comment: Nega tive [...] antigen from SARS-CoV-2 in direct nasopharyngeal swab (TEMPERATURE INSPECTOR) specimens from individuals who are suspected [...] Accreditation. Performed By: #### 3 2044 #### [facility] [address] APTTon 02-16-2022 aPTT Coag (Bld) [Time] 33.3 s Normal 25.0-35.0 [facility] Comment on above: Order Comment: Check Chest [...] THIS PURPOSE. Performed By: #### 5 7307, 61974 ####[facility] CBC COMPLETE BLOOD COUNTon 0 02-16-2022 Erythrocyte distribution width (RBC) [Ratio] 13.8 % Normal 11.5-15.0 [facility] Comment on above: Order Comment: No: D o not add to previous draw Performed By: #### 5 0608 #### [facility] [address] Hematocrit (Bld) [Volume fraction] 40.2 % Normal 39.0-50.0 [facility] Comment on above: Order Comment: No: D o not add to previous draw Performed By: #### 5 0608 #### [facility] [address] Hemoglobin (Bld) [Mass/Vol] 13.5 g/dL Normal 13.0-17.0 [facility] Comment on above: Order Comment: No: D o not add to previous draw Performed By: #### 5 0608 #### [facility] [address] [place] [address], [facility] IMM PLATELET FRAC 5.7 % Normal 0.8-6.3 [facility] Comment on above: Order Comment: No: D o not add to previous draw Performed By: #### 5 0608 #### [facility] [address] [place] [address], [facility] MCH (RBC) [Entitic mass] 31.0 pg Normal 27.0-33.0 [facility] Comment on above: Order Comment: No: D o not add to previous draw Performed By: #### 5 0608 #### [facility] [address] [facility] [place] [address], [facility] MCHC (RBC) [Mass/Vol] 33.6 g/dL Normal 32.0-35.0 [facility] Comment on above: Order Comment: No: D o not add to previous draw Performed By: #### 5 0608 #### [facility] [address] [facility] [place] [address], [facility] MCV (RBC) [Entitic vol] 92.4 fL Normal 82.0-98.0 [facility] Comment on above: Order Comment: No: D o not add to previous draw Performed By: #### 5 0608 #### [facility] [address] [facility] [place] [address], [facility] Nucleated RBC/100 WBC (Bld) [Ratio] 0 % Normal 0-0 [facility] Comment on above: Order Comment: No: D o not add to previous draw Performed By: #### 5 0608 #### [facility] [address] [facility] [place] [address], [facility] PLAT CNT 128 10*3/uL Low 150-400 [facility] Comment on above: Order Comment: No: D o not add to previous draw Performed By: #### 5 0608 #### [facility] [address] [facility] [place] [address], [facility] RBC (Bld) [#/Vol] 4.35 10*6/uL Normal 4.20-5.70 [facility] Comment on above: Order Comment: No: D o not add to previous draw Performed By: #### 5 0608 #### [facility] [address] [facility] [place] [address], [facility] WBC (Bld) [#/Vol] 6.37 10*3/uL Normal 4.00-10.60 [facility] Comment on above: Order Comment: No: D o not add to previous draw Performed By: #### 5 0608 #### [facility] [address] [facility] [address], [facility] COMP METABOLIC PANELon 02-16 Albumin [Mass/Vol] 3.5 g/dL Normal 3.5-5.7 [facility] Comment on above: Order Comment: No: D o not add to previous draw Criteria for reflexing a culture was not met. Please call the lab at [phone] within 24 hours of collection time if culture is needed Performed By: #### 3 0965 #### [facility] [address] [place] [address], [facility] ALKALINE PHOSPH 63 IU/L Normal 34-104 [facility] Comment on above: Order Comment: No: D o not add to previous draw Criteria for reflexing a culture was not met. Please call the lab at [phone] within 24 hours of collection time if culture is needed Performed By: #### 3 0965 #### [facility] [address] [facility] [place] [address], [facility] ALT [Catalytic activity/Vol] 14 U/L Normal 7-52 [facility] Comment on above: Order Comment: No: D o not add to previous draw Criteria for reflexing a culture was not met. Please call the lab at [phone] within 24 hours of collection time if culture is needed Performed By: #### 3 0965 #### [facility] [address] [facility] [address], [facility] AST [Catalytic activity/Vol] 13 U/L Normal 13-39 [facility] Comment on above: Order Comment: No: D o not add to previous draw Criteria for reflexing a culture was not met. Please call the lab at [phone] within 24 hours of collection time if culture is needed Performed By: #### 3 0965 #### [facility] [address] [place] [address], [place] Bilirubin [Mass/Vol] 0.7 mg/dL Normal 0.3-1.0 [facility] Comment on above: Order Comment: No: D o not add to previous draw Criteria for reflexing a culture was not met. Please call the lab at [phone] within 24 hours of collection time if culture is needed Performed By: #### 3 0965 #### [facility] [address] [place] [address], [place] Calcium [Mass/Vol] 8.9 mg/dL Normal 8.6-10.3 [facility] Comment on above: Order Comment: No: D o not add to previous draw Criteria for reflexing a culture was not met. Please call the lab at [phone] within 24 hours of collection time if culture is needed Performed By: #### 3 0965 #### [facility] [address] [place] [address], [facility] Chloride [Moles/Vol] 108 mmol/L High 98-107 [facility] Comment on above: Order Comment: No: D o not add to previous draw Criteria for reflexing a culture was not met. Please call the lab at [phone] within 24 hours of collection time if culture is needed Performed By: #### 3 0965 #### [facility] [address] [place] [address], [place] CO2 [Moles/Vol] 24 mmol/L Normal 21-31 [facility] Comment on above: Order Comment: No: D o not add to previous draw Criteria for reflexing a culture was not met. Please call the lab at [phone] within 24 hours of collection time if culture is needed Performed By: #### 3 0965 #### [facility] [address] [place] [address], [place] Creatinine [Mass/Vol] 0.91 mg/dL Normal 0.70-1.30 [facility] Comment on above: Order Comment: No: D o not add to previous draw Criteria for reflexing a culture was not met. Please call the lab at [phone] within 24 hours of collection time if culture is needed Performed By: #### 3 0965 #### [facility] [address] [place] [address], [facility] GFR/1.73 sq M.predicted among non-blacks MDRD (S/P/Bld) [Vol rate/Area] mL/min/{1.73_m2} Normal >60 [facility] Comment on above: Order Comment: No: D o not add to previous draw Criteria for reflexing a culture was not met. Please call the lab at [phone] within 24 hours of collection time if culture is needed Result Comment: The [facility]'s estimated glomerular filtration rate (eGFR) will no [...] individuals. Performed By: #### 3 0965 #### [facility] [address] [place] [address], [facility] Glucose [Mass/Vol] 97 mg/dL Normal 70-100 [facility] Comment on above: Order Comment: No: D o not add to previous draw Criteria for reflexing a culture was not met. Please call the lab at [phone] within 24 hours of collection time if culture is needed Performed By: #### 3 0965 #### [facility] [address] [place] [address], [place] Potassium [Moles/Vol] 4.1 mmol/L Normal 3.5-5.1 [facility] Comment on above: Order Comment: No: D o not add to previous draw Criteria for reflexing a culture was not met. Please call the lab at [phone] within 24 hours of collection time if culture is needed Performed By: #### 3 0965 #### [facility] [address] [facility] [address], [facility] Protein [Mass/Vol] 5.8 g/dL Low 6.0-8.3 [facility] Comment on above: Order Comment: No: D o not add to previous draw Criteria for reflexing a culture was not met. Please call the lab at [phone] within 24 hours of collection time if culture is needed Performed By: #### 3 0965 #### [facility] [address] [place] [address], [facility] Sodium [Moles/Vol] 139 mmol/L Normal 136-145 [facility] Comment on above: Order Comment: No: D o not add to previous draw Criteria for reflexing a culture was not met. Please call the lab at [phone] within 24 hours of collection time if culture is needed Performed By: #### 3 0965 #### [facility] [address] [place] [address], [facility] Urea nitrogen [Mass/Vol] 26 mg/dL High 7-25 [facility] Comment on above: Order Comment: No: D o not add to previous draw Criteria for reflexing a culture was not met. Please call the lab at [phone] within 24 hours of collection time if culture is needed Performed By: #### 3 0965 #### [facility] [address] [place] [address], [facility] CTA CHESTon 02-16-2022 CTA CHEST [facility] Department of Radiology [address] [place] [address] [phone] ======== Patient Name: IGNACIO AMIN : 1945 Sex: M Age: Race: White Pt. Location: [address] [place] [address] Patient Status: O Ordered Date: 02/16/2022 9:45:00 [...] achievable. Electronically signed: Mahesh Sanchez. Transcribed by: [email or web address], User Resident: Electronically Signed by: MAHESH SANCHEZ @ 02/20/2022 08:38 AM Normal [facility] Comment on above: Order Comment: Check Chest Tube Position, ON ARRIVAL TO CVU Cardiovascular Lab Reporton 02-16-2022 Cardiovascular Lab Report [facility] Patient Name: Brennan, [facility] E MR #: [id number] Department of Physician: Nora Garcia M.D. Division of Service Date: 02/15/2022 Cardiology Birthdate: 1945 Adult Cardiovascular Room #: 3AB [id number] [facility] [address] [place] [id number] Cardiovascular Laboratory Report FINAL IMPRESSIONS: 1. Severe, [...] the left radial artery was obtained. A 6-Malaysian 11 cm sheath was inserted without difficulty. [...] He was to be transferred to the [facility] area in stable condition. FINDINGS: Hemodynamics. AO 121/74. LEFT VENTRICULOGRAPHY: This was not performed. Ejection fraction is reported to be 40% by noninvasive imaging. CORONARY ARTERIES: Left main coronary artery. This arises from the left coronary cusp. It bifurcates into the left anterior descending and left circumflex coronary arteries. It shows a heavily calcific [id number]-sz-[id number] stenosis estimated to be 80% to 85% [...] Lisha/Donavan Saeed M.D. Date Trans: 02/16/2022 05:09 Lydia/anirudh [id number] cc: Elliot Rosales M.D. [address] [place] [id number] Normal [facility] DIRECT BILIon 02-16-2022 Bilirubin.direct [Mass/Vol] 0.1 mg/dL Normal 0.0-0.2 [facility] Comment on above: Order Comment: No: D o not add to previous draw Criteria for reflexing a culture was not met. Please call the lab at [phone] within 24 hours of collection time if culture is needed Performed By: #### 3 1948 #### [facility] [address] [place] [address], [facility] HEMOGLOBIN A1Con 02-16-2022 Glucose [Moles/Vol] 120 mmol/L Normal [facility] Comment on above: Order Comment: Check Chest Tube Position, ON ARRIVAL TO CVU Performed By: #### 3 1791 ####[facility] [place] [address], [facility] HbA1c (Bld) [Mass fraction] 5.8 % Normal 4.0-6.0 [facility] Comment on above: Order Comment: Check Chest Tube Position, ON ARRIVAL TO CVU Performed By: #### 3 1791 ####[facility] [place] [address], [facility] LIPID PROFILEon 02-16-2022 Cholesterol [Mass/Vol] 110 mg/dL Low 120-200 [facility] Comment on above: Order Comment: No: D [...] Risk Performed By: #### 3 0965 #### [facility] [address] [place] [address], [facility] Cholesterol in HDL [Mass/Vol] 30 mg/dL Normal 23-92 [facility] Comment on above: Order Comment: No: D [...] Risk Performed By: #### 3 0965 #### [facility] [address] [place] [address], [facility] Cholesterol in LDL [Mass/Vol] 47 mg/dL Normal 0-130 [facility] Comment on above: Order Comment: No: D o not add to previous draw Criteria for reflexing a culture was not met. Please call the lab at [phone] within 24 hours of collection time if culture is needed Result Comment: LDL IS A CALCULATION LDL IS ONLY VALID IF THE TRIG IS LESS THAN 400. Performed By: #### 3 0965 #### [facility] [address] [place] [address], [facility] Cholesterol.total/Cho lesterol in HDL [Mass ratio] 3.7 {ratio} Normal .0-4.5 [facility] Comment on above: Order Comment: No: D o not add to previous draw Criteria for reflexing a culture was not met. Please call the lab at [phone] within 24 hours of collection time if culture is needed Performed By: #### 3 0965 #### [facility] [address] NON-HDL CHOLESTEROL 80 mg/dL Normal [facility] Comment on above: Order Comment: No: D o not add to previous draw Criteria for reflexing a culture was not met. Please call the lab at [phone] within 24 hours of collection time if culture is needed Performed By: #### 3 0965 #### [facility] [address] [place] [address], [facility] Triglyceride [Mass/Vol] 164 mg/dL High 40-149 [facility] Comment on above: Order Comment: No: D [...] RISK Performed By: #### 3 0965 #### [facility] [address] [place] [address], [facility] VLDL CHOL 33 mg/dL Normal 0-40 [facility] Comment on above: Order Comment: No: D o not add to previous draw Criteria for reflexing a culture was not met. Please call the lab at [phone] within 24 hours of collection time if culture is needed Performed By: #### 3 0965 #### [place] [address], [facility] MAGNESIUM BLOODon 02-16-2022 Magnesium [Mass/Vol] 1.9 mg/dL Normal 1.9-2.7 [facility] Comment on above: Order Comment: No: D o not add to previous draw Performed By: #### 3 0739 #### [facility] [address] [place] [address], [facility] PHOSPHORUS BLOODon Phosphate [Mass/Vol] 3.5 mg/dL Normal 2.5-5.0 [facility] Comment on above: Order Comment: No: D o not add to previous draw Criteria for reflexing a culture was not met. Please call the lab at [phone] within 24 hours of collection time if culture is needed Performed By: #### 3 0965 #### [address] PORTABLE CHEST 1 VIEWon 01-22 PORTABLE CHEST 1 VIEW [facility] Department of Radiology [address] [place] [phone] ======== Patient Name: IGNACIO AMIN : 1945 Sex: M Age: Race: White Pt. Location: [id number] Patient Status: I Ordered Date: 02/16/2022 7:00:00 [...] chest. Electronically signed: Fidelina Mi. Transcribed by: [email or web address], User Resident: Electronically Signed by: FIDELINA MI @ 02/16/2022 09:14 AM Normal [facility] Comment on above: Order Comment: Check Chest Tube Position, ON ARRIVAL TO CVU PROTHROMBIN TIMEon INR Coag (PPP) [Relative time] 1.09 {INR} Normal 0.91-1.16 [facility] Comment on above: Order Comment: Check Chest [...] CHEST 1995;[id number]. Performed By: #### 5 7307, 967[address] ####[facility] [facility] [address], [facility] PT Coag (PPP) [Time] 14.1 s Normal 12.3-14.8 [facility] Comment on above: Order Comment: Check Chest Tube Position, ON ARRIVAL TO CVU Result Comment: ALL RESULTS MUST BE INTERPRETED WITH RESPECT TO BLOOD DRAWING ARTIFACT OR DILUTION ERROR OF ANTICOAGULANT AT THE TIME OF SAMPLING. Performed By: #### 5 7307, 69380 ####[facility] [facility].[address] TSH3on 02-16-2022 TSH 3RD GENERATION 1.10 uIU/mL Normal 0.34-5.60 [facility] Comment on above: Order Comment: No: D o not add to previous draw Performed By: #### 3 0739 #### [facility] [address] [facility]. [address] *MRSA/MSSA DNA NASALon 02-15 *MRSA/MSSA DNA NASAL Clinical Report: (D ) Specimen: NASAL SWAB Collected: 02/15/2022 17:50 Status: Final Last Updated: 02/16/2022 12:41 (1) No collection time noted on specimen or requisition. The collection time recorded is the time of receipt in the lab. MSSA DNA (Final) Negative MRSA DNA (Final) Negative Normal [facility] Comment on above: Order Comment: No co llection time noted on specimen or requisition. The collection time recorded is the time of receipt in the lab. Performed By: #### 3 1595 #### [facility] [address] [facility] [place] [address], [facility] URINALYSIS REFLEXon 02-16-20 22 Appearance (U) CLEAR Normal CLEAR [facility] Comment on above: Order Comment: No: D o not add to previous drawCriteria for reflexing a culture was not met. Please call the lab [phone] within 24 hours of collection time if culture is needed Performed By: #### 3 2043 #### [facility] [address] [place] [address], [place] Bilirubin Ql (U) Negative Normal NEGATIVE [facility] Comment on above: Order Comment: No: D o not add to previous drawCriteria for reflexing a culture was not met. Please call the lab [phone] within 24 hours of collection time if culture is needed Performed By: #### 3 2043 #### [facility] [address] [place] [address], [place] Color (U) YELLOW Normal YELLOW [facility] Comment on above: Order Comment: No: D o not add to previous drawCriteria for reflexing a culture was not met. Please call the lab [phone] within 24 hours of collection time if culture is needed Performed By: #### 3 2043 #### [facility] [address] [place] [address], [place] EPIS NONE SEEN Normal FEW,OCC,NONE SEEN [facility] Comment on above: Order Comment: No: D o not add to previous drawCriteria for reflexing a culture was not met. Please call the lab [phone] within 24 hours of collection time if culture is needed Performed By: #### 3 2043 #### [facility] [address] [place] [address], [place] Glucose Ql (U) Negative Normal NEGATIVE [facility] Comment on above: Order Comment: No: D o not add to previous drawCriteria for reflexing a culture was not met. Please call the lab [phone] within 24 hours of collection time if culture is needed Performed By: #### 3 2043 #### [facility] [address] [place] [address], [place] Hemoglobin Ql (U) TRACE Abnormal NEGATIVE [facility] Comment on above: Order Comment: No: D o not add to previous drawCriteria for reflexing a culture was not met. Please call the lab [phone] within 24 hours of collection time if culture is needed Performed By: #### 3 2043 #### [facility] [address] [place] [address], [facility] KETONE Negative Normal NEGATIVE [facility] Comment on above: Order Comment: No: D o not add to previous drawCriteria for reflexing a culture was not met. Please call the lab [phone] within 24 hours of collection time if culture is needed Performed By: #### 3 2043 #### [facility] [address] [place] [address], [place] LEUK TOMA Negative Normal NEGATIVE [facility] Comment on above: Order Comment: No: D o not add to previous drawCriteria for reflexing a culture was not met. Please call the lab [phone] within 24 hours of collection time if culture is needed Performed By: #### 3 2043 #### [facility] [address] [place] [address], [place] Nitrite Ql (U) Negative Normal NEGATIVE [facility] Comment on above: Order Comment: No: D o not add to previous drawCriteria for reflexing a culture was not met. Please call the lab [phone] within 24 hours of collection time if culture is needed Performed By: #### 3 2043 #### [facility] [address] [place] [address], [facility] pH (U) 6.0 [pH] Normal 5.0-8.0 [facility] Comment on above: Order Comment: No: D o not add to previous drawCriteria for reflexing a culture was not met. Please call the lab [phone] within 24 hours of collection time if culture is needed Performed By: #### 3 2043 #### [facility] [address] [place] [address], [place] Protein Ql (U) Negative Normal NEGATIVE [facility] Comment on above: Order Comment: No: D o not add to previous drawCriteria for reflexing a culture was not met. Please call the lab [phone] within 24 hours of collection time if culture is needed Performed By: #### 3 4 #### [facility] [address] [facility] [address], [facility] RBC 0-2 Abnormal NONE SEEN [facility] Comment on above: Order Comment: No: D o not add to previous drawCriteria for reflexing a culture was not met. Please call the lab [phone] within 24 hours of collection time if culture is needed Performed By: #### 3 4 #### [facility] [address] [place] [address], [facility] SPEC GRAV 1.010 Low 1.015-1.020 [facility] Comment on above: Order Comment: No: D o not add to previous drawCriteria for reflexing a culture was not met. Please call the lab [phone] within 24 hours of collection time if culture is needed Performed By: #### 3 4 #### [facility] [address] [facility] [place] [address], [facility] WBC UA 0-2 Abnormal NONE SEEN [facility] Comment on above: Order Comment: No: D o not add to previous drawCriteria for reflexing a culture was not met. Please call the lab [phone] within 24 hours of collection time if culture is needed Performed By: #### 3 4 #### [facility] [address] Covid-19 PCR (CVDTB)on 01-22 SARS-CoV-2 (COVID-19) RNA JJ+probe Ql (Unsp spec) Not detected Normal NOT DETECTED [facility] Comment on above: Result Comment: This test is not yet approved or cleared by the [place] FDA. When there are no FDA-approved or cleared tests available, and other criteria are met, FDA can make tests available under an emergency access mechanism called an Emergency Use Authorization (EUA). The EUA for this test is supported by the [place] of Health and Human Service's (HHS's) declaration [...] SARS-CoV-2. Performed By: #### H H #### [facility] [address] [place] [address] Dr. Yoselin Rivera HEMOGRAM AND PLATELon 2021 Hematocrit (Bld) [Volume fraction] 42.9 % Normal 42.0-54.0 [facility] Comment on above: Performed By: #### H H #### [facility] [address] [place] [address] Dr. Yoselin Rivera Hemoglobin (Bld) [Mass/Vol] 14.0 g/dL Normal 14.0-18.0 [facility] Comment on above: Performed By: #### H H #### [facility] [address] [place] [address] Dr. Yoselin Rivera MCH (RBC) [Entitic mass] 30.7 pg Normal 25.9-34.0 [facility] Comment on above: Performed By: #### H H #### [facility] [address] [place] [address] Dr. Yoselin Rivera MCHC (RBC) [Mass/Vol] 32.6 g/dL Normal 29.9-35.2 [facility] Comment on above: Performed By: #### H H #### [facility] [address] [place] [address] Dr. Yoselin Rivera MCV (RBC) [Entitic vol] 94.1 fL Critically high 80.0-94.0 [facility] Comment on above: Performed By: #### H H #### [facility] [address] [place] [address] Dr. Yoselin Rivera PLT 153 103/ul Normal 150-450 [facility] Comment on above: Performed By: #### H H #### [facility] [address] [place] [address] [address] Yoselin Rivera RBC 4.56 106/ul Critically low 4.70-6.10 [facility] Comment on above: Performed By: #### H H #### [facility] [address] [place] [address] [address] Yoselin Rivera WBC 5.9 103/ul Normal 4.0-11.0 [facility] Comment on above: Performed By: #### H H #### [facility] [address] [place] [address] [address] Yoselin Rivera PROF CHEM 8 (BAS METB)on Anion gap [Moles/Vol] 9.0 mmol/L Normal [facility] Comment on above: Performed By: #### H H #### [facility] [address] [place] [address] [address] Yoselin Rivera Calcium [Mass/Vol] 9.1 mg/dL Normal 8.5-10.1 [facility] Comment on above: Performed By: #### H H #### [facility] [address] [place] [address] [address] Yoselin Rivera Chloride [Moles/Vol] 104 mmol/L Normal 98-107 [facility] Comment on above: Performed By: #### H H #### [facility] [address] [place] [address] [address] Yoselin Rivera CO2 [Moles/Vol] 30.0 mmol/L Normal 21.0-32.0 [facility] Comment on above: Performed By: #### H H #### [facility] [address] [place] [address] [address] Yoselin Rivera Creatinine [Mass/Vol] 0.98 mg/dL Normal 0.70-1.30 [facility] Comment on above: Performed By: #### H H #### [facility] [address] [place] [address] [address] Yoselin Rivera EGFR-AF NEPALESE >60 Normal >=60 [facility] Comment on above: Performed By: #### H H #### [facility] [address] [place] [address] [address] Yoselin Rivera EGFR-NON AF NEPALESE >60 Normal >=60 [facility] Comment on above: Performed By: #### H H #### [facility] [address] [place] [address] [address] Yoselin Rivera Glucose [Mass/Vol] 122 mg/dL Critically high 74-106 [facility] Comment on above: Performed By: #### H H #### [facility] [address] [place] [address] [address] Yoselin Rivera Potassium [Moles/Vol] 4.0 mmol/L Normal 3.5-5.1 [facility] Comment on above: Performed By: #### H H #### [facility] [address] [place] [address] [address] Yoselin Rivera Sodium [Moles/Vol] 139 mmol/L Normal 136-145 [facility] Comment on above: Performed By: #### H H #### [facility] [address] [place] [address] [address] Yoselin Rivera Urea nitrogen [Mass/Vol] 19.0 mg/dL Critically high 7.0-18.0 [facility] Comment on above: Performed By: #### H H #### [facility] [address] [place] [address] [address] Yoselin Rivera Urea nitrogen/Creatinine [Mass ratio] 19.4 mg/mg Normal [facility] Comment on above: Performed By: #### H H #### [facility] [address] [place] [address] [address] Yoselin Rivera NM STRESS/REST MULTIon 02-07 NM STRESS/REST MULTI Patient: YARON AMIN Exam Date: 02/07/2022 : 1945 Gender:M Ordering : DR DONAVAN SAEED M.D. Admission #: [id number] Family : DR ELLIOT ROSALES M.D. Order #: [id number] CLICK HERE TO VIEW EXAM RADIOLOGY REPORT [...] wall; moderate global hypokinesis. Dictated by: Magalis Lanza M.D. on 02/08/2022 at 09:25 Approved by: Magalis Lanza M.D. on 02/08/2022 at 09:32 Normal [facility] URINALYSISOrdered By: Annie sanchez on 09-19-2021 Bacteria LM Ql (Urine sed) Trace /HPF Normal Trace/HPF [facility] UA Auto SS Bilirubin Ql (U) Negative (09/19/21 12:29 PM) Normal Negative [facility] UA Auto SS Clarity (U) SL CLOUDY Invalid Interpretation Code [facility] UA Auto SS Color (U) Yellow (09/19/21 [...] Interpretation Code Negative [facility] UA Auto SS [place].plasma/Lithiu m.RBC (Bld) [Mass ratio] 0-3 /HPF Normal 0-3/HPF [facility] UA Auto SS Mucus Ql (Urine sed) Trace (09/19/21 12:29 PM) Normal [facility] UA Auto SS Nitrite Ql (U) Negative (09/19/21 12:29 PM) Normal Negative [facility] UA Auto SS pH (U) 5.5 *NA* (09/19/21 12:29 PM) Invalid Interpretation Code 5.0 - 9.0 [facility] UA Auto SS Protein (U) [Mass/Vol] Negative (09/19/21 12:29 PM) Normal Negative [facility] UA Auto SS Specific gravity (U) [Rel density] >=1.030 *NA* (09/19/21 12:29 PM) Invalid Interpretation Code 1.005 - 1.030 [facility] UA Auto SS UA Spec Desc Random Urine (09/19/21 12:29 PM) Normal [facility] UA Auto SS Urobilinogen Qn (U) 0.4188105 {Kayce'U}/dL Normal 0.0 - 1.0 EU/dL [facility] UA Auto SS WBC Auto Ql (U) 2+ *ABN* (09/19/21 12:29 PM) Invalid Interpretation Code Negative [facility] UA Auto SS WBC LM.HPF (Urine sed) [#/Area] /[HPF] Invalid Interpretation Code 0-5/HPF [facility] UA Auto SS Vital Signs Date Time Vital Sign Value Performing Clinician Facility 07-23-2023 09:45-0500 Blood Pressure Location Patience Huitron [facility] 01-31-2024 09:45-0500 Diastolic blood pressure 80 mm[Hg] Patience Lue [facility] 07-23-2023 09:45-0500 Heart rate 68 /min Patience Lue [facility] 07-23-2023 09:45-0500 Respiratory rate 16 /min Patience Lue [facility] 07-23-2023 09:45-0500 Systolic blood pressure 132 mm[Hg] Patience Lue [facility] 07-15-2023 09:40-0500 Body height 176.53 cm [employer] Other [employer] [facility] [employer] Other 07-15-2023 09:40-0500 Body mass index (BMI) [Ratio] 29.34 kg/m2 [employer] Other [facility] [employer] Other 07-15-2023 09:40-0500 Body temperature 96.2 [degF] [employer] Other [facility] [employer] Other 07-15-2023 09:40-0500 Body weight 91.45 kg [employer] Other [employer] Other 07-15-2023 09:40-0500 Diastolic blood pressure 70 mm[Hg] [employer] Other [employer] Other 07-15-2023 09:40-0500 Respiratory rate 18 /min [employer] Other [employer] Other 07-15-2023 09:40-0500 SaO2% (BldA) [Mass fraction] 97 % Jenifer Jensen Other [employer] Other 07-15-2023 09:40-0500 Systolic blood pressure 122 mm[Hg] Jenifer Jensen Other [employer] Other 05-19-2023 10:00-0500 Body height 176.53 cm Elliot Rosales Other [employer] Other 05-19-2023 10:00-0500 Body mass index (BMI) [Ratio] 28.79 kg/m2 Elliot Rosales Other [employer] Other 05-19-2023 10:00-0500 Body weight 89.73 kg Elliot Rosales Other [employer] Other 05-19-2023 10:00-0500 Diastolic blood pressure 84 mm[Hg] Elliot Rosales Other [employer] Other 05-19-2023 10:00-0500 Systolic blood pressure 142 mm[Hg] Elliot Rosales Other [employer] [facility] [employer] Other 04-16-2023 09:42-0400 Blood Pressure Location Patience Lue [facility] 04-16-2023 09:42-0400 Diastolic blood pressure 79 mm[Hg] Patience Lue [facility] 04-16-2023 09:42-0400 Heart rate 68 /min Patience Lue [facility] 04-16-2023 09:42-0400 Respiratory rate 16 /min Patience Lue [facility] 04-16-2023 09:42-0400 Systolic blood pressure 134 mm[Hg] Patience Huitron [facility] 01-28-2023 10:40-0400 Body height 176.53 cm Azvern Monreals Other [employer] Other 01-28-2023 10:40-0400 Body mass index (BMI) [Ratio] 28.61 kg/m2 Aziz Bakhous Other [employer] Other 01-28-2023 10:40-0400 Body temperature 96.2 [degF] Azvern Bakhous Other [employer] Other 01-28-2023 10:40-0400 Body weight 89.18 kg Azvern Bakhous Other [employer] Other 01-28-2023 10:40-0400 Diastolic blood pressure 72 mm[Hg] Azvern Conchahous Other [employer] Other 01-28-2023 10:40-0400 Respiratory rate 18 /min Azvern Bakhous Other [employer] Other 01-28-2023 10:40-0400 SaO2% (BldA) [Mass fraction] 100 % Aziz Bakhous Other [employer] Other 01-28-2023 10:40-0400 Systolic blood pressure 124 mm[Hg] Aziz Bakhous Other [employer] Other 12-13-2022 11:44-0400 Diastolic blood pressure 63 mm[Hg] MD Elliot Rosales Work Phone: [facility] 12-13-2022 11:44-0400 Heart rate 59 /min MD Elliot Rosales Work Phone: [facility] 12-13-2022 11:44-0400 Respiratory rate 16 /min MD Elliot Rosales Work Phone: [facility] 12-13-2022 11:44-0400 SaO2% (BldA) [Mass fraction] 97 % MD Elliot Rosales Work Phone: [facility] 12-13-2022 11:44-0400 Systolic blood pressure 128 mm[Hg] MD Elliot Rosales Work Phone: [facility] 12-13-2022 09:38-0400 Body height 177.8 cm MD Elliot Rosales Work Phone: [facility] 12-13-2022 09:38-0400 Body weight 87.99 kg MD Elliot Rosales Work Phone: [facility] 12-04-2022 09:11-0400 Blood Pressure Location Patience Lue [facility] 12-04-2022 09:11-0400 Diastolic blood pressure 74 mm[Hg] Patience Lue [facility] 12-04-2022 09:11-0400 Heart rate 68 /min Patience Lue [facility] 12-04-2022 09:11-0400 Respiratory rate 16 /min Patience Lue [facility] 12-04-2022 09:11-0400 Systolic blood pressure 130 mm[Hg] Patience Lue [facility] 09-24-2022 13:03-0400 Body temperature 97.11 [degF] ELSI Doyle MD Work Phone: [facility] 09-24-2022 13:03-0400 Body weight 86 kg ELSI Doyle MD Work Phone: [facility] 09-24-2022 13:03-0400 Diastolic blood pressure 79 mm[Hg] ELSI Doyle MD Work Phone: [facility] 09-24-2022 13:03-0400 Heart rate 60 /min ELSI Doyle MD Work Phone: [facility] 09-24-2022 13:03-0400 Respiratory rate 18 /min ELSI Doyle MD Work Phone: [facility] 09-24-2022 13:03-0400 SaO2% (BldA) [Mass fraction] 100 % ELSI Doyle MD Work Phone: [facility] 09-24-2022 13:03-0400 Systolic blood pressure 129 mm[Hg] ELSI Doyle MD Work Phone: [facility] 09-23-2022 10:45-0400 Body height 176.53 cm Elliot Rosales Other [employer] Other 09-23-2022 10:45-0400 Body mass index (BMI) [Ratio] 28.67 kg/m2 Elliot Rosales Other [employer] Other 09-23-2022 10:45-0400 Body weight 89.36 kg Elliot Rosales Other [employer] Other 09-23-2022 10:45-0400 Diastolic blood pressure 70 mm[Hg] Elliot Rosales Other [employer] Other 09-23-2022 10:45-0400 Systolic blood pressure 118 mm[Hg] Elliot Rosales Other [employer] Other 08-19-2022 10:30-0500 Body height 176.53 cm Elliot Rosales Other [employer] Other 08-19-2022 10:30-0500 Body mass index (BMI) [Ratio] 27.94 kg/m2 Elliot Rosales Other [employer] Other 08-19-2022 10:30-0500 Body weight 87.09 kg Elliot Rosales Other [employer] Other 08-19-2022 10:30-0500 Diastolic blood pressure 80 mm[Hg] Elliot Rosales Other [employer] Other 08-19-2022 10:30-0500 SaO2% (BldA) [Mass fraction] 98 % Elliot Rosales Other [employer] Other 08-19-2022 10:30-0500 Systolic blood pressure 122 mm[Hg] Elliot Rosales Other [employer] Other 08-13-2022 10:40-0500 Body height 177.8 cm Jenifer Jensen Other [employer] Other 08-13-2022 10:40-0500 Body mass index (BMI) [Ratio] 27.55 kg/m2 Azvern [employer] Other [employer] Other 08-13-2022 10:40-0500 Body weight 87.09 kg Aziz [employer] Other [employer] Other 08-13-2022 10:40-0500 Diastolic blood pressure 70 mm[Hg] [employer]vern [employer] Other [employer] Other 08-13-2022 10:40-0500 Respiratory rate 18 /min Jenifer Jensen Other [employer] Other 08-13-2022 10:40-0500 SaO2% (BldA) [Mass fraction] 97 % Jenifer Jensen Other [employer] Other 08-13-2022 10:40-0500 Systolic blood pressure 149 mm[Hg] Jenifer Jensen Other [employer] Other 06-05-2022 09:28-0500 Blood Pressure Location Patience Lue [facility] 06-05-2022 09:28-0500 Diastolic blood pressure 69 mm[Hg] Patience Lue [facility] 06-05-2022 09:28-0500 Heart rate 65 /min Patience Lue [facility] 06-05-2022 09:28-0500 Systolic blood pressure 128 mm[Hg] Patience Lue [facility] 04-30-2022 11:00-0500 Body height 177.8 cm Jenifer Jensen Other [employer] Other 04-30-2022 11:00-0500 Body mass index (BMI) [Ratio] 25.77 kg/m2 Jenifer Jensen Other [employer] Other 04-30-2022 11:00-0500 Body temperature 96.2 [degF] Jenifer Monrealfrank Other [employer] Other 04-30-2022 11:00-0500 Body weight 81.47 kg Jenifer Jensen Other [employer] Other 04-30-2022 11:00-0500 Diastolic blood pressure 72 mm[Hg] Jenifer Jensen Other [employer] Other 04-30-2022 11:00-0500 Respiratory rate 18 /min Jenifer Jensen Other [employer] Other 04-30-2022 11:00-0500 SaO2% (BldA) [Mass fraction] 99 % Jenifer Jensen Other [employer] Other 04-30-2022 11:00-0500 Systolic blood pressure 111 mm[Hg] Jenifer Jensen Other [employer] Other 12-03-2021 13:10-0400 Diastolic blood pressure 73 mm[Hg] Patience Lue [facility] 12-03-2021 13:10-0400 Heart rate 62 /min Patience Lue [facility] 12-03-2021 13:10-0400 Systolic blood pressure 124 mm[Hg] Patience Lue [facility] 09-25-2021 13:07-0400 Body temperature 96.4 [degF] ELSI Doyle MD Work Phone: [facility] 09-25-2021 13:07-0400 Body weight 87.54 kg ELSI Doyle MD Work Phone: [facility] 09-25-2021 13:07-0400 Diastolic blood pressure 70 mm[Hg] ELSI Doyle MD Work Phone: [facility] 09-25-2021 13:07-0400 Heart rate 62 /min ELSI Doyle MD Work Phone: [facility] 09-25-2021 13:07-0400 Respiratory rate 16 /min ELSI Doyle MD Work Phone: [facility] 09-25-2021 13:07-0400 SaO2% (BldA) [Mass fraction] 98 % ELSI Doyle MD Work Phone: [facility] 09-25-2021 13:07-0400 Systolic blood pressure 133 mm[Hg] ELSI Doyle MD Work Phone: [facility] 09-19-2021 09:38-0400 Blood Pressure Location Patience Lusarita [facility] 09-19-2021 09:38-0400 Diastolic blood pressure 78 mm[Hg] Patience Lue [facility] 09-19-2021 09:38-0400 Heart rate 68 /min [facility] Lue [facility] 09-19-2021 09:38-0400 Respiratory rate 16 /min Patience Lue [facility] 09-19-2021 09:38-0400 Systolic blood pressure 128 mm[Hg] Patience Lue [facility] Nitin Encounters Encounter Date Encounter Type Care Provider Facility Start: 07-23-2023 End: 07-24-2023 ambulatory Patience Morrelle Facility:[facility] Start: 07-23-2023 End: 07-23-2023 Patient encounter procedure Patience Huitron [facility] Start: 07-15-2023 End: 07-15-2023 ambulatory Aziz Bakhous Other [employer] Other Start: 07-15-2023 Office outpatient vi sit 15 minutes Aziz Bakhous [facility] Start: 05-19-2023 End: 05-19-2023 ambulatory Elliot Rosales Other [employer] Other Start: 05-19-2023 Office outpatient vi sit 10 minutes Elliot Rosales [facility] Start: 05-12-2023 End: 05-12-[address] [facility] Start: 04-16-2023 End: 04-17-2023 ambulatory Patiencetalha Huitron Facility:[facility] Start: 04-16-2023 End: 04-16-2023 Patient encounter procedure Patience Huitron [facility] Start: 03-03-2023 End: 03-04-2023 ambulatory Patiencetalha Huitron Facility[facility] Start: 03-03-2023 End: 03-03-2023 Patient encounter procedure Patience Huitron [facility] Start: 02-18-2023 End: 02-18-[address] [facility] Start: 01-28-2023 End: 01-28-2023 ambulatory Aziz Bakhous Other [employer] Other Start: 01-28-2023 Office outpatient vi sit 15 minutes Aziz Bakhous [facility] Start: 12-20-2022 End: 12-20-2022 ambulatory PHYLLIS RUDY [facility] Start: 12-20-2022 End: 12-20-2022 Encounter for preprocedural cardiovascular examination PHYLLIS GRANT [facility] Start: 12-13-2022 End: 12-13-2022 ambulatory Elliot Rosales Facility:[facility] Start: 12-13-2022 End: 12-13-2022 Admission to same day surgery center MD Elliot Rosales Work Phone: [facility] Work Phone: Start: 12-13-2022 End: 12-13-2022 ambulatory MD Elliot Rosales Work Phone: [facility] Work Phone: Start: 12-04-2022 End: 12-05-2022 ambulatory Patience Huitron Facility:[facility] Start: 12-04-2022 End: 12-04-2022 Patient encounter procedure Patience Huitron [facility] Start: 09-24-2022 End: 09-24-2022 ambulatory Ema DOYLE Facility:[facility] Start: 09-24-2022 End: 09-24-2022 Patient encounter procedure Ema Doyle MD Work Phone: Radiation [facility]cology Comment on above: History of prostate cancer (Primary Dx) Start: 09-23-2022 End: 09-23-2022 ambulatory Elliot Rosales Other [employer] Other Start: 09-23-2022 Office outpatient vi sit 15 minutes Elliot Rosales [facility] Start: 09-23-2022 Telephone encounter Elliot Rosales [facility] Start: 09-18-2022 End: 09-19-[address] ELLIOT ROSALES Facility: Start: 08-26-2022 End: 08-26-2022 ambulatory Elliot Rosales Other [employer] Other Start: 08-26-2022 Telephone encounter Elliot Rosales [facility] Start: 08-19-2022 End: 08-19-2022 ambulatory Elliot Rosales Other [employer] Other Start: 08-19-2022 Office outpatient vi sit 15 minutes Elliot Rosales [facility] Start: 08-13-2022 End: 08-13-2022 ambulatory Azvern Monreals Other [employer] Other Start: 08-13-2022 Office outpatient vi sit 15 minutes Aziz Bakhous [facility] Start: 08-05-2022 End: 08-06-[address] ELLIOT ROSALES Facility:[facility] Start: 06-25-2022 End: 07-10-[address] ELLIOT ROSALES Facility:[facility] Start: 06-18-2022 End: 06-19-[address] ELLIOT ROSALES Facility:[facility] Start: 06-05-2022 End: 06-05-2022 Patient encounter procedure Patience Huitron [facility] Start: 06-03-2022 End: 06-04-[address] ELLIOT ROSALES Facility:[facility] Start: 05-27-2022 End: 05-27-2022 ambulatory [facility] Start: 05-22-2022 End: 05-23-[address] ELLIOT ROSALES Facility:[facility] Start: 04-30-2022 End: 04-30-2022 ambulatory Azvern Jensen Other [employer] Other Start: 04-30-2022 Office outpatient ne w 30 minutes Aziz Bakhous [facility] Start: 04-26-2022 End: 04-27-2022 ambulatory PHYLLIS GRANT Facility:[facility] Start: 04-03-2022 End: 06-25-[address] ELLIOT ROSALES Facility:[facility] Start: 02-15-2022 End: 02-28-2022 Evaluation and management of inpatient Christiane Olson Facility:[facility] Start: 02-15-2022 Encounter for preprocedural laboratory examination DONAVAN SAEED [facility] Start: 02-13-2022 End: 02-14-[address] ELLIOT ROSALES Facility:[facility] Start: 02-13-2022 End: 02-14-2022 Encounter for preprocedural laboratory examination DR ELLIOT ROSALES Facility:[facility] Start: 02-07-2022 End: 02-08-[address] ELLIOT ROSALES Facility:[facility] Start: 12-03-2021 End: 12-03-2021 Patient encounter procedure Patience Huitron [facility] Start: 10-01-2021 End: 10-01-2021 Patient encounter procedure Patience Huitron [facility] Start: 09-25-2021 End: 09-25-2021 Patient encounter procedure Ema Doyle MD Work Phone: Radiation Oncology Comment on above: History of prostate cancer (Primary Dx) Start: 09-19-2021 End: 09-19-2021 Lab Drop off Patience Huitron [facility] Start: 09-19-2021 End: 09-19-2021 Patient encounter procedure Patience Huitron [facility] Procedures Date Procedure Procedure Detail Performing Clinician Start: 03-03-2023 Transurethral insert ion of prostatic urethral lift implant Patience Huitron Comment on above: 5 implants attempted . 5 seated. Start: 12-13-2022 Screening colonoscopy Jefferson Rosales Work Phone: Start: 09-18-2022 End: 09-18-2022 PSA screening [facility] Provider Comment on above: Performed By: #### P SAD #### [facility] [address], [place] [address] Dr. Yoselin Rivera Start: 02-19-2022 Antibody screen Christiane urban Comment on above: Performed By: #### 3 4 #### [facility] [address] Start: 01-21-2022 Open heart surgery Osiris y Lusartia Start: 10-01-2021 Transurethral cystoscopy Patience Huitron Start: 09-25-2021 Adult depression scr eening assessment [...] prostate cancer Expected: 09/25/2023 (Approximate), Expires: 11/25/2023 [facility] Work Phone: Comment on above: Expected: 09/25/2023 (Approximate), Expires: 11/25/2023 Start: 02-21-2023 Influenza vaccination INFLUENZ A (Season Ended) [facility] Start: 12-13-2022 [facility] Start: 09-25-2022 Adult depression screening assessment DEPRESSION SCREENING [facility] Start: 09-25-2022 End: 11-25-2022 Prostate specific Ag [Mass/volume] in Serum or Plasma PSA/PROSTSPECAG DIAG Lab Routine History of prostate cancer Expected: 09/25/2022 (Approximate), Expires: 11/25/2022 [facility] Work Phone: Comment on above: Expected: 09/25/2022 (Approximate), Expires: 11/25/2022 Start: 06-23-2022 ADVANCE DIRECTIVE DISCUSSION ADVANCE DIRECTIVE DISCUSSION [facility] Start: 06-23-2022 DEPRESSION ASSESSMENT DEPRESSION ASS ESSMENT [facility] Start: 02-21-2022 Influenza vaccination INFLUENZ A (Season Ended) [facility] Start: 06-23-2021 ADVANCE DIRECTIVE DISCUSSION ADVANCE DIRECTIVE DISCUSSION [facility] Start: 11-08-2020 COVID-19 VACCINE (3 - Booster for Julito series) COVID-19 VACCINE (3 - Booster for Julito series) [facility] Start: 2011 PNEUMOVAX AGE 65 AND OVER WITH 5YR LOOKBACK (#1) PNEUMOVAX AGE 65 AND OVER WITH 5YR LOOKBACK (#1) [facility] Start: 1996 SHINGRIX VACCINE (1 of 2) SHINGRIX VACCINE (1 of 2) [facility] Start: 1991 COLOGUARD (FIT-DNA) COLOGUARD (FIT-D NA) [facility] Start: 1991 Colonoscopy COLONOSCOPY [facility] Start: 1991 COLORECTAL CANCER SCREENING COLORECTAL CANCER SCREENING [facility] Start: [address] COLONOGRAPHY [facility] Start: 1991 DIABETES SCREEN DIABETES SCREEN [facility] Start: 1991 FECAL OCCULT BLOOD FECAL OCCULT BLOO D [facility] Start: 1991 SIGMOIDOSCOPY SIGMOIDOSCOPY [facility] Start: 1981 LIPID SCREEN LIPID SCREEN [facility] Start: 1965 Urine microalbumin profile DTAP,TDAP,TD (1 - Tdap) [facility] Start: 1964 HEPATITIS C SCREENING HEPATITIS C SC STEPHANIA [facility] Start: 1952 PNEUMOCOCCAL: 65+ (1 - PCV) PNEUMOCOCCAL: 65+ (1 - PCV) [facility] Patient Education Colon polyps [facility] Immun[facility] Immunization Date Immunization Notes Care Provider Aristeo baldwin 05-05-2022 pneumococcal 20-corina nt conjugate vaccine Patience Lue [facility] 04-21-2022 SARS-CoV-2 (COVID-19 ) [id number] Patience Lue [facility] 04-27-2021 SARS-CoV-2 (COVID-19 ) mRNA-1273 vaccine Patience Lue [facility] 03-21-2021 pneumococcal polysaccharide vaccine, 23 valent Patience Lue [facility] 01-24-2021 zoster vaccine recombinant Patience Lue [facility] 11-08-2020 zoster vaccine recombinant Patience Lue [facility] 09-13-2020 SARS-CoV-2 (COVID-19 ) Ad26 vaccine, recombinant Patience Lue [facility] 08-17-2020 SARS-CoV-2 (COVID-19 ) Ad26 vaccine, recombinant Patience Lue [facility] 11-19-2016 pneumococcal conjuga te vaccine, 13 valent Patience Lue [facility] Payers Date Payer Category Payer Self-pay 2019 Unknown MMO MMO MEDICARE SUPPLEMENT [id number] 2019-Present [phone] [address] [place] [address] Indemnity [id number] 2019 Unknown MMO MMO MEDICARE SUPPLEMENT [id number] 2019-Present [phone] [address] [place] [address] Indemnity [id number] 2011 Medicare MEDICARE MEDICAR E A AND B [id number] 2011-Present [phone] [address] [address] [place] [address] Medicare [id number] 2011 Medicare MEDICARE MEDICAR E A AND B [id number] 2011-Present [phone] [place] [address] Medicare [id number] 1959 Medicare [id number] 1959 Unknown [id number] 1946 Unknown [id number] 1946 Unknown [id number] [id number] 1946 Unknown [id number] [id number] 1946 Unknown [id number] [id number] 1946 Unknown [id number] [id number] 1946 Unknown [id number] [id number] 1946 Unknown [id number] [id number] 1946 Unknown [id number] [id number] 1946 Unknown [id number] [id number] 1946 Unknown [id number] [id number] 1946 Unknown [id number] [id number] 1946 Unknown [id number] [id number] 1946 Unknown [id number] 2.16.840.1.209380.3.579.2.727 1946 Unknown [id number] [id number] 1946 Unknown [id number] [id number] Unknown [employer] [phone] [id number] Unknown [id number] Social History Date Type Detail Facility Start: 09-19-2021 Tobacco smoking status Smoker (findi ng) [facility] Sex Assigned At Male [facility] Start: 10-08-2017 Tobacco smoking stat us ARIS Smokes tobacco daily [facility] History of tobacco use Cigarette Smoker [facility] Start: 09-21-2020 Alcohol intake Current drinke r of alcohol (finding) [facility] Start: 1945 Sex Assigned At Not on file [facility] Start: 09-15-2021 End: 09-25-2021 Exposure to SARS-CoV-2 (event) Not sure [facility] Start: 04-18-2018 Tobacco use and exposure Smokeless tobacco non-user [facility] Start: 12-04-2022 End: 07-23-2023 Tobacco smoking status Ex-smoker (finding) [facility] Start: 1945 Sex Assigned At Male [facility] Tobacco smoking status Never [facility] Goals Date Patient Goal Desired Activity /State Functional Status Date Assessment Result Facility 07-23-2023 Functional Status N/A [facility] 04-16-2023 Functional Status N/A [facility] 12-04-2022 Functional Status N/A [facility] 06-05-2022 Functional Status N/A [facility] 12-03-2021 Functional Status N/A [facility] [employer] Clinical Notes 09-19-2021 to 07-23-2023 Note Date & Type Note Facility 07-23-2023 Hospital Discharge instructions Patient Education 07/23/2023 10:46:29 Benign Prostatic Hyperplasia Benign Prostatic Hyperplasia Benign [...] urethra. Follow these instructions at home: Take rwag-xvv-dyekikp and prescription medicines only as told by [...] provider. Document Revised: 12/26/2021 Document Reviewed: 12/26/2021 goCatch Patient Education 2022 [employer]. Follow Up Care 04/16/2023 11:00:15 With:Tomy DUNN, RODERICK Cao, URO Address: When: Unknown Comments:[facility] Safe Case 07-15-2023 Evaluation note Encounter Date Diagnosis Assessment Notes Jun, Acute kidney injury (ICD-10 - N17.9) Patient likely had acute kidney injury from ATN associated with CABG in 2021. Serum creatinine peaked at 2.1 mg/dL. Kidney function recovered without needing hemodialysis. Jun, Chronic kidney disease, stage 3a (ICD-10 - N18.31) CKD is likely from renovascular disease as the patient has history of coronary disease and hypertension. Patient also sustained TJ during CABG surgery in 2021. Serum creatinine 1.22 mg deciliter. UA is beign Blood pressure and volume status is well controlled. I will continue same dose of Lasix. Advised the patient to avoid NSAIDs and to keep himself well-hydrated. I will follow-up with the patient in 12 months Jun, Anemia, unspecified type (ICD-10 - D64.9) Hemoglobin is slightly low at 13.0 g/dl. No need for ROBERTH Jun, History of prostate cancer (ICD-10 - Z85.46) Follows with urology clinic. Jun, Hx of CABG (ICD-10 - Z95.1) Patient has history of coronary disease status post CABG in 2021. Follows with Dr. Andrews in cardiology clinic. Currently on metoprolol. Blood pressures well controlled Jun, Hypokalemia (ICD-10 - E87.6) [facility] [employer] Other 11-27-2023 Evaluation note* Encounter Date Diagnosis Assessment Notes Treatment Notes Treatment Clinical Notes Apr, Visit for suture removal (ICD-10 - Z48.02) Area cleaned and sutures removed. Pt tolerated well. [facility] [employer] Other 11-20-2023 NoteUT Electrophysiology Consult Note Reason for visit: [...] Tv Split 2011-05 (60 Yr +) Other Weight: No weight [...] glands, no bruising Physic (more content not included)...[facility] 04-16-2023 Hospital Discharge instructions Patient Education 04/16/2023 [...] urethra. Follow these instructions at home: Take yrkg-mow-jnxurbp and prescription medicines only as told by [...] provider. Document Revised: 12/26/2021 Document Reviewed: 12/26/2021 goCatch Patient Education 2022 Celeno. Follow Up Care 03/03/2023 10:13:49 With:Tomy DUNN, RODERICK Cao, URO Address: When:Within 3 Month(s) [facility] 09-11-2023 Note [id number]:127[facility] 03-03-2023 Hospital Discharge instructions Patient Education 03/03/2023 10:03:09 Lue - Urolift Post-Op Instructions (CUSTOM) [facility] [place], [place] Post-Operative Instructions for UroLift After your [...] instructions on this sheet. Colvin Catheter The Colivn catheter is held in place by a [...] Up Care 02/12/2023 10:35:26 With:Patience Huitron Address: Coretta Martinez, [address] [address] [phone] Business (1) When: Unknown Comments:Office to schedule follow up in 1 month with [facility]08-29-2023 NoteUT Electrophysiology Consult Note Reason for visit: [...] Mental Status: alert, normal (more content not included)...[facility]08-08-2023 Evaluation note* Encounter Date Diagnosis Assessment Notes [...] Currently on metoprolol. Blood pressures well controlled [facility] [employer] Other [id number] NoteWill schedule for ICD device interrogation RTC with Dr Urrutia for evaluation of any recurrent A fib s/p CABG.[facility]06-30-2023 NoteRCRI-2???points Class III Risk 10.1???% 30-day risk of , NC, or cardiac arrest From a cardiology perspective [...] This is good for the next 6 monthsUnUniversity [facility]als [facility]06-30-2023 NoteRemains compliant with smoking cessationUnUniversity Hospitals [facility] Medical Center 12-20-2022 NoteHypertension is well controlled at home and in office 137/74 Continue toprol, lasixUnUniversity Hospitals Cleveland Medical Center06-30-2023 NotePatient here for 6 mo follow up [...] pain. All other systems reviewed and are negative.[facility] 12-20-2022 NoteUTP CARDIOLOGY PROGRESS NOTE HPI: Ignacio [...] Tv Split 2010- (60 Yr +) Other Medications: Current Outpatient [...] Low 28.2 Low 28.6 (more content not included)...[facility]06-30-2023 NoteContinue lipitor and lipid profile was well controlled on labs 2021UnUniversity Hospitals Cleveland Medical Center06-30-2023 NoteCoronary artery disease is stable without concerning symptoms Continue GDMT- ASA, toprol and lipitor continue risk factor modifications- heart healthy diet, regular exercise as tolerated and continue all medications.[facility] 12-20-2022 NoteCoronary artery disease is stable without concerning symptoms [facility]06-30-2023 NotestableUnUniversity Hospitals Cleveland Medical Center06-23-2023 [facility] Hospital Discharge instructions Patient Education [...] urethra. Follow these instructions at home: Take hbsc-jyu-nzfsyjw and prescription medicines only as told by [...] provider. Document Revised: 12/26/2021 Document Reviewed: 12/26/2021 goCatch Patient Education 2022 [employer] Follow Up Care 06/05/2022 11:04:10 With:Tomy DUNN, RODERICK Cao, URO Address: When: Unknown [facility] 04-04-2023 NoteHNO ID: [id number] Author: Eam Doyle MD Service: ? Author Type: Physician [...] well as active information included in the EMR.[facility] 09-24-2022 History of Present illness Narrative* G Abhijeet Doyle MD - 09/24/2022 1:07 PM EDT [...] included in the EMR. documented in [facility] Nurse Note* Nurys Saleem RN - 09/24/2022 1:06 PM EDT AUA 3 Nurys Saleem RN documented in this encounterMer[facility]. [facility]04-03-2023 Evaluation note* Encounter Date Diagnosis Assessment [...] and rare diarrhea on his recent trip. [facility] [employer] Other 03-06-2023 Evaluation note* Encounter Date Diagnosis Assessment Notes Treatment Notes Treatment Clinical Notes Aug, Diarrhea, unspecified type (ICD-10 - R19.7) [facility] [employer] Other 02-27-2023 Evaluation note* Encounter Date Diagnosis Assessment Notes Treatment Notes Treatment Clinical Notes Jul, Diarrhea, unspecified type (ICD-10 - R19.7) No known sick contacts. Traveling on a cruise soon. Agrees to try rx med, call if no improvement. Discussed potential stool culture or GI referral. [facility] [employer] Other 02-21-2023 Evaluation note* Encounter Date Diagnosis [...] g/dL. I asked the patient to take eiww-zsl-lmhdvjf iron supplement once daily. I will check [...] Currently on metoprolol. Blood pressures well controlled [facility] [employer] Other 12-14-2022 Hospital Discharge instructions Patient Education [...] urethra. Follow these instructions at home: Take hthb-dny-astvinw and prescription medicines only as told by [...] 06/09/2006 Document Revised: 05/04/2019 Document Reviewed: 07/14/2017 goCatch Patient Education 2020 Celeno. 06/05/2022 10:50:10 Benign Prostatic Hyperplasia Benign Prostatic [...] urethra. Follow these instructions at home: Take lnry-sjq-hcgxuor and prescription medicines only as told by [...] 06/09/2006 Document Revised: 05/04/2019 Document Reviewed: 07/14/2017 goCatch Patient Education 2019 Celeno. Follow Up Care 12/03/2021 14:03:57 With:Tomy DUNN, Patience Salinas, RODERICK, URO Address: When:6 months Comments:no labs [facility] 12-05-2022 [facility] Note Chief Complaint: Patient here [...] paroxysmal A-fib (CMS/HCC) Coronary artery disease involving conf[place]erated g[place] coronary artery of confederated goshute heart without angina pectoris Cardiomyopathy, hypertrophic (CMS/HCC) Essential hypertension Dyslipidemia Hypertrophic Cardiomyopathy Plan: If 12-lead EKG shows sinus rhythm, will discontinue amiodarone Continue optimal medical therapy for coronary artery disease including aspirin, high intensity statin therapy, a beta-ash If no signs of bleeding, would prefer him to be on 5 mg p.o. twice daily of Eliquis given his [id number] score (more content not included)...[facility]11-08-2022 Evaluation note* Encounter Date Diagnosis Assessment Notes [...] follow-up with the patient in 3 months. [facility] [employer] Other 10-07-2022 NoteMR#: [id number] [facility] Pt. Name: Ignacio Amin Sarita Admitted: 02/15/2022 Discharged: 02/28/2022 Date of : [...] who follows with Dr. Saeed in the [facility]. Over the past few months, [...] performed at bedside to assess function. Discontinued Cordova-Sundar catheter. Oxygen requirements were beginning to be [...] AT DISCHARGE: Good. Stable. DISCHARGE DISPOSITION: [facility]. DISCHARGE MEDICATIONS: 1. Amiodarone 200 mg tablet [...] regarding the ca (more content not included)...[facility]06-13-2022 Hospital Discharge instructions Patient Education 12/03/2021 13:54:59 [...] including vitamins, herbs, eye drops, creams, and yvxx-elz-gsrubkb medicines. Any problems you or family members [...] provider tells you to take them. Taking rpgy-wrk-oymaaka medicines, vitamins, herbs, and supplements. Eating and [...] 06/09/2006 Document Revised: 09/29/2019 Document Reviewed: 03/10/2019 goCatch Patient Education 2020 Celeno. Follow Up Care 10/01/2021 09:30:13 With:Tomy DUNN, RODERICK Cao, URO Address: [address] [place] [address]- [phone] When:Within 6 Month(s) Comments:with IPSS [facility] 04-11-2022 Hospital Discharge instructions Patient Education 10/01/2021 [...] Up Care 09/19/2021 10:38:31 With:Patience Huitron Address: Coretta Martinez, [address] [address] [phone] Business (1) When: Unknown Comments:Call for followup appointment in 2-3 months With:Patience Huitron Address:Unknown When: Unknown [facility]04-05-2022 History of Present illness Narrative* G Abhijeet [...] included in the EMR. documented in this encounterMer[facility]. [facility]04-05-2022 Nurse Note* Nurys Saleem RN - 09/25/2021 1:10 PM EDT AUA 12 Nurys Saleem RN documented in this encounterMer[facility]. [facility]03-30-2022 Hospital Discharge instructions Patient Education 09/19/2021 [...] who: Are older than age 65. Are -Turkmen. Are obese. Have a family history of [...] cells. Follow these instructions at home: Take ibla-ljh-wajmxdn and prescription medicines only as told by [...] 06/09/2006 Document Revised: 05/22/2018 Document Reviewed: 02/17/2017 goCatch Patient Education 2020 Celeno. Follow Up Care 03/14/2021 14:47:29 With:Tomy DUNN, Patience Salinas, RODERICK, URO Address: [address] [place] [address] [phone] Business (1) When: Unknown [facility] evaluation + Plan note Future Appointments Appointment Date:09/24/2021 09:15:00 AM Scheduled Provider: Location:[facility] Appointment Type:Urology CALL PAT FT Appointment Date:10/01/2021 09:30:00 AM Scheduled Provider: Location:[facility] Appointment Type:Urology FT [facility] evaluation + Plan note Future Appointments Appointment Date:09/24/2021 09:15:00 AM Scheduled Provider: Location:[facility] Appointment Type:Urology CALL PAT FT Appointment Date:10/01/2021 09:30:00 AM Scheduled Provider: Location:[facility] Appointment Type:Urology FT Diagnostic Tests Pending * Urine Culture [facility]ments Appointment Date:12/03/2021 01:00:00 PM Scheduled Provider:Patience Huitron MD Location:[facility] Future Appointments Appointment Date:06/05/2022 09:15:00 AM Scheduled Provider:Patience Huitron MD Location:[facility] Appointment Type:URO Office Visit [facility] Evaluation + Plan note Future Appointments Appointment Date:12/04/2022 09:15:00 AM Scheduled Provider:Patience Huitron MD Location:[facility] Appointment Type:URO Office Visit [facility] evaluation + Plan note Future Appointments Appointment Date:04/16/2023 09:45:00 AM Scheduled Provider:Patience Huitron MD Location:[facility] Future Appointments Appointment Date:07/23/2023 09:45:00 AM Scheduled Provider:Patience Huitron MD Location:[facility] Appointment Type:URO Office Visit [facility] evaluation note* Diagnosis History of prostate cancer- Primary Personal history of malignant neoplasm of prostate documented in this encounter [facility] noteNo [employer] Other Evaluation note* Diagnosis History of prostate cancer- Primary Personal history of malignant neoplasm of prostate documented in this encounter [facility] noteNo assessment information [facility] Work Phone: History and physical note Author Yung Yang [facility] December 13, 2022 10:31am Note Date/Time December 13, 2022 10:3 1am [facility] [address] [place] [address] Gastroenterology H&P Signed Patient: Ignacio Amin MR#: [id number] : 1945 Acct:[id number] Age/Sex: 77 / M Adm Date: 3 Loc: Room: Type: [facility] Attending Dr: Yung Yang MD Copies to: [...] signed by Yung Yang MD> 12/13/22 1031 [facility] Work Phone: History general Narrative - Reported* Type Description Date [...] History CARDIOVERSION 03/03/22 Hospitalization History SEE ABOVE [facility] [employer] Other History general Narrative - Reported* Type Description Date [...] pass surgery 01/2022 Hospitalization History SEE ABOVE [facility] [employer] Other Hiserxx general Narrative - Reported* Type Description Date [...] Surgical History Triple Bi pass surgery 01/2022 Surgical History SUTURES IN LEFT THUMB 2022 Hospitalization History SEE ABOVE [facility] [employer] Other Hospital course Narrative No data available for this section [facility] Dis[facility] instructions No data available for this section [facility] Additional Instructions DISCHARGE INSTRUCTIONS FOR [...] NOT operate machinery such as power tools, [employer] mowers, snow blowers, sewing machines, etc. for [...] months -Follow up with PCP. -Office number [phone]. [facility] Work Phone: Progress note No data available for this section [facility] Summary Purpose Family History No Family History Records Found Relationship Condition Age at Onset Recorded Date/T kathy sister Malignant neoplasm of colon Unknown father Cardiovascular disease Unknown brother Myocardial infarction Unknown Advance Directives No Advanced Directives Records Found Advance Directive Response Recorded Date/ Time Advance Directives No December 11 10:12am Reason for Referral Reason *Waiting for appt Former Aroldo pt - due for screening Diagnosis 1 Screening for colon cancer (Z12.11) Referral Organization [facility] Charli bryant Referring Provider First Name Elliot Referring Provider Last Name Fran Referring Provider Specialty Family Medi cine Referred Organization [facility] Gastroenterolo haroon Referred Provider Yung Yang Referred Address [address],[place] [address] ,[place], [place],[address] Referred Provider Specialty Gastroentero logy Referral Priority [...] or prosecute any alcohol or drug abuse patient.[facility] Hospital[facility] the event this information is protected by the Federal Confidentiality of Alcohol and Drug Abuse Patient Records regulations: The Federal rules restrict any use of the information to criminally investigate or prosecute any alcohol or drug abuse patient.[facility] Reason for Visit (unrecogniz ed section and content) Reason Comments [facility] Teams (unrecognized sec tion and content) District Manager Primary Care Sales Relationship Specialty Start Date End Date Elliot Rosales MD [address] [place] [address] PCP - General Family Practice 10/02/16 District Manager Primary Care Sales Relationship Specialty Start Date End Date Elliot Rosales MD [address] [place] [address] PCP - General Family Medicine [...] section and content) DATE CREATED AUTHOR 04/01/2022 [facility] DATE CREATED AUTHOR AUTHOR'S ORGANIZ ATION 09/27/2022 [facility] DATE CREATED AUTHOR AUTHOR'S ORGANIZ ATION 10/05/2022 [facility] DATE CREATED AUTHOR AUTHOR'S ORGANIZ ATION 12/20/2022 [facility] DATE CREATED AUTHOR AUTHOR'S ORGANIZ ATION 05/13/2023 [facility] DATE CREATED AUTHOR AUTHOR'S ORGANIZ ATION 07/30/2023 [facility] FOR RECORDS PERTAINING TO PATIENTS WHO ARE [...] BE BASED ON THE PRIMARY CLINICAL RECORDS. [facility]. provides no warranty or guarantee of the accuracy or completeness of information in this document.
[2023-09-26] MEDS: ALBUTEROL SULFATE 2.5 MG/3 ML VIAL NEB IH (13:37)
--- NOTE | 2023-09-26 13:40 | RT_ITS ---
[facility] Test Date: 2023-09-26 Pat Name: IGNACIO REYNOLDS Department: Room: - Gender: Male Garnishment Specialist: Oscar Giraldo RRT : 1945 Requested By: Yao Polanco Order Number: [id number] Reading MD: Yao Polanco Interpretive Statements Pulmonary function testing was completed according to ATS criteria. Findings were considered accurate and reproducible. Both pre- and post-bronchodilator values utilized for spirometry. Spirometry (based on pre-bronchodilator values): -FEV1/FVC: Normal @ 76% -FEV1: Reduced @ 72% -FVC: Reduced @ 68% -There is no significant bronchodilator response. Lung volumes by plethysmography (based on pre-bronchodilator values): -RV: Reduced @ 78% -TLC: Mild-moderately decreased @ 70% Diffusion capacity: -DLCO: Severe reduction @ 49% when corrected for Hb 13.7g/dL Flow-volume loop: -Mild restrictive pattern Impressions: -Spirometry is non-diagnostic. Decreased TLC and DLCO are consistent with a restrictive process. Clinical correlation required. Electronically Signed On 09-30-2023 12:42:35 EDT by Yao Polanco
--- NOTE | 2023-09-26 14:17 | CT_ITS ---
[address] [address] Patient Name: IGNACIO REYNOLDS MRN: [id number] date: 1945 Sex: M Assigned Patient Location: CT Current Patient Location: Accession/Order Number: [id number] Exam Date: 09/26/2023 14:20 Report Date: 09/27/2023 06:10 At the request of: FLORIDALMA DAWN Procedure: CT lung screening low-dose EXAMINATION: CT lung screening low-dose HISTORY: screening for malignant neoplasm of respiratory organs Z122 COMPARISON: CT chest 01/30/2021 TECHNIQUE: Axial, Coronal, and Sagittal images were created without the administration of IV contrast material. Dose reduction techniques were achieved by using automated exposure control and/or adjustment of mA and/or kV according to patient size and/or use of iterative reconstruction technique. FINDINGS: LUNGS: Stable tiny 4 mm nodule adjacent right major fissure and stable 7 mm groundglass faint opacity within right lower lobe superior segment. Thin curvilinear stranding opacity within lateral left upper lobe favoring discoid atelectasis or scarring. No acute infiltrates, suspicious nodules, or significant chronic interstitial changes. PLEURA: No mass, effusion, or pneumothorax. VASCULATURE: No abnormality. JEFF: No mass or pathologic adenopathy. MEDIASTINUM: No mass or pathologic adenopathy. CARDIAC:Atherosclerotic coronary artery disease. No enlargement, pericardial thickening, or pericardial effusion. AORTA: No aneurysm or dissection. CHEST WALL: Cardiac pacer within anterior left chest wall. No mass or axillary adenopathy BONES: No bone lesion or fracture. LIMITED ABDOMEN: No suspicious findings. Limited images of the upper abdomen. OTHER: Negative. CT/CT lung screening low-dose IMPRESSION: 1. Lung-RADS 2- Benign Appearance or Behavior. Nodules with a very low likelihood of becoming a clinically active cancer due to size or lack of growth. Follow-up CT Chest in 1 year. Electronically authenticated by: MAGALIS CHA Date: 09/27/2023 06:10
== END 2023-09-26 12:37 | disposition home or self-care (01) ==
LOC: CT 12:38
PROVIDERS: PCP Family Medicine; Visit Provider Internal Medicine
DX: R94.2 Abnormal results of pulmonary function studies (principal); Z12.2 Encounter for screening for malignant neoplasm of respiratory organs; Z87.891 Personal history of nicotine dependence
CPT/HCPCS: 36415; 71271; 85018; 94060; 94726; 94729

== ENCOUNTER 2023-12-04 09:55 | Outpatient (OUT) | payer MEDICARE, OTHER, SELFPAY ==
--- NOTE | 2023-12-04 10:04 | CA_ITS ---
Patient Name: IGNACIO REYNOLDS MR#: [id number] : 1945 Exam Date: 12/04/2023 Ordering Doctor: RUTH URRUTIA ECHOCARDIOGRAM REPORT PROCEDURE: CA ECHO DOPPLER COMPLETE INDICATIONS: Paroxysmal atrial fibrillation COMPARISON: None. DESCRIPTION: COMPLETE ECHOCARDIOGRAM Real-time transthoracic echocardiography with 2D, M-mode, spectral and color flow Doppler performed. QUALITY: Technical quality was good. LEFT VENTRICLE: Normal chamber size. Severe concentric left ventricular hypertrophy. Global left ventricular systolic function is normal. LV EF: Estimated left ventricular ejection fraction is 65% DIASTOLIC: Diastolic function is indeterminate. ATRIAL SEPTUM: LEFT ATRIUM: Severe dilatation. RIGHT ATRIUM: Severe dilatation. RIGHT VENTRICLE: Normal chamber size. Normal right ventricular systolic function. Pacer wire present. TRICUSPID VALVE: Normal mobility and thickness. No stenosis with mild regurgitation. No evidence of pulmonary hypertension. RVSP 28 mmHg MITRAL VALVE: Normal mobility and thickness. No evidence of mitral valve stenosis. Mild mitral annular calcification. Mild mitral regurgitation. AORTIC VALVE: Normal trileaflet appearance. Mildly calcified aortic valve. Normal leaflet mobility. No evidence of aortic valve stenosis. Mild aortic regurgitation. AORTIC ROOT: Normal diameter and appearance, measuring 3.1 cm. Normal size ascending aorta measuring 3.5 cm. PULMONIC VALVE: Normal thickness and mobility. No stenosis. Mild regurgitation. PERICARDIUM: No evidence of pericardial effusion. IVC: Collapses with inspirations. Normal size. PLEURA: CONCLUSION: 1. Severe concentric left ventricular hypertrophy with normal systolic function. Estimated LVEF is 65%. 2. Normal right ventricular size and systolic function. 3. Severe biatrial dilatation. 4. Mild mitral, tricuspid, aortic and pulmonic regurgitation. 5. Normal right-sided pressures. Adult Echocardiography Procedure Report Left Ventricle LVEDD (3.7 - 5.6 cm): 4.92 cm LVESD (2.2 - 4.0 cm): 3.34 cm LVIVS thickness (0.6 - 1.2 cm): 2.22 cm LVPW thickness (0.5 - 1.0 cm): 1.46 cm e': 0.05 m/s E - e': 9.11 LVOT Max Gradient: 1.90 mm[Hg] LVOT Area (cm2): 0.69 m/s Peak Velocity (LVOT): 0.69 m/s Mean Velocity (LVOT): 0.43 m/s LVOT Diameter 2.00 cm Left Ventricular Ejection Fraction: 65% Left Atrium LA Volume Index (2D A2C): 55.88 ml/m2 Left Atrium Systolic Dimension: 4.99 cm Mitral Valve MV E to A Ratio: 0.64 Mitral Valve A-Wave Peak Velocity: 0.71 m/s Mitral Valve E-Wave Peak Velocity: 0.45 m/s Right Ventricle RV Internal Diastolic Dimension: 3.15 cm Aorta AO Root Diam: 3.07 cm Ascending Ao Diam: 3.48 cm Aortic Valve AoV Area (Peak Slava): 1.87 cm2, 1.87 cm2 AoV Area (VTI): 2.09 cm2, 2.09 cm2 Deceleration [place]: 0.94 m/s2 Pressure Half-Time: 967.16 ms Peak Velocity(Antegrade Flow): 1.16 m/s Peak Gradient(Antegrade Flow): 5.38 mm[Hg] Mean Velocity(Antegrade Flow): 0.69 m/s Mean Gradient(Antegrade Flow): 2.40 mm[Hg] Velocity Time Integral: 21.26 cm Tricuspid Valve Peak Velocity (Regurgitant Flow): 2.26 m/s, 2.38 m/s, 2.49 m/s Pulmonic Valve Mean Gradient: 1.90 mm[Hg] Mean Velocity: 0.61 m/s Peak Velocity: 1.12 m/s, 0.85 m/s Peak Gradient: 5.03 mm[Hg], 2.87 mm[Hg] Right Atrium Right Atrium Systolic Pressure: 124.61 ml, 124.61 ml Dictated by: Mykel Hood M.D. on 12/08/2023 at 17:03 Approved by: Mykel Hood M.D. on 12/08/2023 at 17:07
[2023-12-04 11:08] LABS: Basophils Percent Auto 0.8 % (0.2-2.0); Eosinophils Absolute Auto 0.1 10^3/uL (0.0-0.7); Eosinophils Percent Auto 2.3 % (0.9-7.0); Hematocrit 41.5 % (42.0-54.0); Hemoglobin 13.5 g/dL (14.0-18.0); Immature Granulocytes Pct Auto 0.4 % (0.0-0.5); Lymphocytes Absolute Auto 0.9 10^3/uL (1.2-3.8); Lymphocytes Percent Auto 19.3 % (20.5-60.0); Mean Corpuscular HGB Conc 32.5 g/dL (29.9-35.2); Mean Corpuscular Hemoglobin 30.4 pg (25.9-34.0); Mean Corpuscular Volume 93.5 fL (80.0-94.0); Mean Platelet Volume 11.1 fL (9.5-13.5); Monocytes Absolute Auto 0.4 10^3/uL (0.3-0.8); Monocytes Percent Auto 8.2 % (1.7-12.0); Neutrophils Absolute Auto 3.3 10^3/uL (1.4-6.5); Red Blood Count 4.44 10^6/uL (4.70-6.10); Red Cell Distribution Width 13.6 % (11.0-15.0); White Blood Count 4.8 10^3/uL (4.0-11.0)
[2023-12-04 11:09] LABS: Immature Granulocytes Abs Auto 0.02 10^3/uL (0.00-0.03)
[2023-12-04 11:34] LABS: BUN Creatinine Ratio 22.4; Calcium 9.2 mg/dL (8.5-10.1); Carbon Dioxide 31.4 mmol/L (21.0-32.0); Chloride 107 mmol/L (98-107); Estimated GFR (African America >60 (>=60); Estimated GFR (Non-African Ame >60 (>=60); Glucose 108 mg/dL (74-106); Potassium 4.4 mmol/L (3.5-5.1); Sodium 143 mmol/L (136-145)
[2023-12-04 11:52] LABS: Platelet Count 137 10^3/uL (150-450)
== END 2023-12-04 09:56 | disposition home or self-care (01) ==
PROVIDERS: PCP Family Medicine; Visit Provider Internal Medicine Cardiovascular Disease
DX: I48.0 Paroxysmal atrial fibrillation (principal)
CPT/HCPCS: 36415; 80048; 85025; 93306; 93356

== ENCOUNTER 2024-06-21 12:30 | Outpatient (OUT) | payer MEDICARE, OTHER, SELFPAY ==
[2024-06-21 13:02] LABS: Bilirubin Urine NEGATIVE (NEGATIVE); Blood Urine NEGATIVE (NEGATIVE); Clarity Urine CLEAR (CLEAR); Color Urine YELLOW (YELLOW); Glucose Urine UA NEGATIVE (NEGATIVE); Ketones Urine NEGATIVE (NEGATIVE); Leukocyte Esterase Urine NEGATIVE (NEGATIVE); Nitrite Urine NEGATIVE (NEGATIVE); Protein Urine NEGATIVE (NEG/TRACE); Urobilinogen Urine 0.2 EU/dL (0.2-1.0); pH Urine 5.5 (5.0-9.0)
[2024-06-21 13:02] LABS: Hematocrit 43.3 % (42.0-54.0); Mean Corpuscular HGB Conc 32.3 g/dL (29.9-35.2); Mean Corpuscular Hemoglobin 31.2 pg (25.9-34.0); Mean Corpuscular Volume 96.4 fL (80.0-94.0); Mean Platelet Volume 11.7 fL (9.5-13.5); Platelet Count 152 10^3/uL (150-450); Red Blood Count 4.49 10^6/uL (4.70-6.10); Red Cell Distribution Width 14.2 % (11.0-15.0); White Blood Count 5.7 10^3/uL (4.0-11.0)
[2024-06-21 13:10] LABS: Protein Creatinine Ratio Urine 0.16; Total Protein Urine Random 13.7 mg/dL (<=11.9)
[2024-06-21 13:14] LABS: Alanine Aminotransferase 34 U/L (16-63); Albumin Globulin Ratio 1.1; Albumin Level 3.7 g/dL (3.4-5.0); Alkaline Phosphatase 94 U/L (46-116); Anion Gap 10.3; Aspartate Amino Transferase 19 U/L (15-37); BUN Creatinine Ratio 16.8; Bilirubin Total 0.7 mg/dL (0.2-1.0); Calcium 9.4 mg/dL (8.5-10.1); Carbon Dioxide 31.4 mmol/L (21.0-32.0); Chloride 108 mmol/L (98-107); Estimated GFR (African America >60 (>=60 mL/min/1.73m^2); Estimated GFR (Non-African Ame 50 (>=60 mL/min/1.73m^2); Globulin 3.4 g/dL; Glucose 131 mg/dL (74-106); Magnesium 2.1 mg/dL (1.8-2.4); Phosphorus 3.6 mg/dL (2.6-4.7); Potassium 4.7 mmol/L (3.5-5.1); Sodium 145 mmol/L (136-145); Total Protein 7.1 g/dL (6.4-8.2); Uric Acid 6.5 mg/dL (3.5-7.2)
[2024-06-21 13:34] LABS: Percent Iron Saturation 29.3 %
[2024-06-22 04:06] LABS: Vitamin B12 622 pg/mL (232-1245)
[2024-06-22 10:13] LABS: PTH, Intact 60 pg/mL (15-65)
== END 2024-06-21 12:31 | disposition home or self-care (01) ==
LOC: LAB 12:32
PROVIDERS: PCP Family Medicine; Visit Provider Internal Medicine Nephrology
DX: N18.31 Chronic kidney disease, stage 3a (principal); N17.9 Acute kidney failure, unspecified; D64.9 Anemia, unspecified; Z85.46 Personal history of malignant neoplasm of prostate; Z95.1 Presence of aortocoronary bypass graft
CPT/HCPCS: 36415; 80053; 81003; 82306; 82570; 82607; 82728; 82746; 83540; 83550; 83735; 83970; 84100; 84156; 84550; 85027

== ENCOUNTER 2024-08-27 15:05 | Emergency (ER) | payer MEDICARE, OTHER, SELFPAY ==
[2024-08-27 15:08] VITALS: BP 132/85; PULSE 79; TEMP 36.4; O2SAT 98; BMI 28.4
--- NOTE | 2024-08-27 15:14 | ED_ITS ---
HPI - Wound/Laceration General Chief Complaint: Wound/Laceration Stated Complaint: injury on left upper extremity Time Seen by Provider: 08/27/24 15:06 Source: patient Mode of arrival: walk-in Limitations: no limitations History of Present Illness HPI narrative: Patient is a 79-year-old male who presents to the emergency department with his for an avulsion from the distal tip of the left thumb. He was using a table saw when he cut off a chunk of tissue from the distal phalanx, there is distal fingernail avulsion as well however the proximal fingernail is intact. No subungual hematoma. He is right-hand dominant. Bleeding is well-controlled. Tetanus is up-to-date within the last 5 years per the patient. Related Data Previous Rx's ?Medication ?Instructions ?Recorded cephalexin 500 mg capsule 500 mg PO Q8H 10 days #30 caps 05/09/23 hydrocodone 5 mg-acetaminophen 325 1 tab PO Q6H PRN pain #10 tabs 05/09/23 mg tablet cephalexin 500 mg capsule 500 mg PO Q8H 10 days #30 caps 08/27/24 hydrocodone 5 mg-acetaminophen 325 1 tab PO Q6H PRN pain 3 days #12 08/27/24 mg tablet tabs Allergies Allergy/AdvReac Type Severity Reaction Status Date / Time Influenza Virus Vaccines Allergy Severe Verified 05/09/23 14:00 Review of Systems ROS Constitutional Denies: fever or chills Ears, nose, mouth, and throat Denies: throat pain or nasal congestion Respiratory Denies: shortness of breath Gastrointestinal Denies: nausea or vomiting Musculoskeletal Reports: extremity pain; Denies: back pain or neck pain Integumentary/Breast Denies: rash Neurological Denies: numbness in extremities or weakness in extremities Hematologic/Lymphatic Denies: easy bruising or easy bleeding PFSH PFSH Social History Little interest or pleasure in doing things: not at all Feeling down, depressed, or hopeless: not at all Exam Narrative Exam Narrative: Gen.: Awake, alert, in no distress Head: Normocephalic, atraumatic ENT: Moist mucous membranes Respiratory: No respiratory distress Extremities: Normal flexion and extension at the IP joint of the left thumb. 0.5 cm fingernail avulsion with associated 1 cm tissue avulsion from the distal phalanx. There is no bony exposure. No active bleeding. Psych: Normal mood and affect Neuro: No focal neuro deficit Skin: Warm, dry Constitutional Vital Signs, click to edit/add: Last Vital Signs Temp 97.5 F L 08/27/24 15:08 Pulse 79 08/27/24 15:08 Resp 16 08/27/24 15:08 BP 132/85 08/27/24 15:08 Pulse Ox 98 08/27/24 15:08 O2 Del Method Room Air 08/27/24 15:08 Course Vital Signs Vital signs: Vital Signs Temperature 97.5 F L 08/27/24 15:08 Pulse Rate 79 08/27/24 15:08 Respiratory Rate 16 08/27/24 15:08 Blood Pressure 132/85 08/27/24 15:08 Pulse Oximetry 98 08/27/24 15:08 Oxygen Delivery Method Room Air 08/27/24 15:08 Temperature 97.5 F L 08/27/24 15:08 Pulse Rate 79 08/27/24 15:08 Respiratory Rate 16 08/27/24 15:08 Blood Pressure 132/85 08/27/24 15:08 Pulse Oximetry 98 08/27/24 15:08 Oxygen Delivery Method Room Air 08/27/24 15:08 MDM - Wound/Laceration MDM Narrative Medical decision making narrative: X-rays show a small avulsion of bone at the distal phalanx, patient treated for open fracture with Keflex. He declined pain medication in the ER. He was placed in a splint. At this time the tissue is avulsed from the distal fingertip, no indication for suture placement. He is neurovascularly intact pre and post splint application. No active bleeding in the ER. No bony exposure on exam. Short course of analgesics and Keflex given for home. Follow-up with orthopedics and return to the ER if symptoms change or worsen SUPERVISED APC VISIT, PHYSICIAN ATTESTATION: Based on the medical record the care appears appropriate. ? Medical Records Attestation: I reviewed the patient's medical records. Imaging Data XR finger: Attestation: I have reviewed the pertinent imaging results. Discharge Plan Discharge Chief Complaint: Wound/Laceration Clinical Impression: Avulsion of skin of finger, Open fracture of finger of left hand Patient Disposition: Home, Self-Care Time of Disposition Decision: 15:49 Condition: Good Prescriptions / Home Meds: New hydrocodone-acetaminophen 5-325 mg tablet 1 tab PO Q6H PRN (Reason: pain) 3 Days Qty: 12 0RF Rx Instructions: DX: S62.522B cephalexin 500 mg capsule 500 mg PO Q8H 10 Days Qty: 30 0RF No Action hydrocodone-acetaminophen 5-325 mg tablet 1 tab PO Q6H PRN (Reason: pain) Qty: 10 0RF Rx Instructions: DX: M79.645 cephalexin 500 mg capsule 500 mg PO Q8H 10 Days Qty: 30 0RF Print Language: Bel[place]ian Instructions: Skin Avulsion (ED) Referrals: Karina Peters MD [Primary Care Provider] - 1 week Omer Rodgers MD [Physician] - As needed
--- OUTSIDE RECORDS SUMMARY | 2024-08-27 15:18 | XMS_ITS | CCD ---
Author Organization [facility] Care Team Providers Care 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 Name Role Phone ELLIOT ROSALES Primary Care Physician Elliot Rosales MD Primary Care Provider [phone] Christiane Olson Attending Unavailable UNKNOWN, PROVIDER Admitting [...] MISC, DR BROWN Admitting Unavailable IGNACIO JACKSON Consulting Unavailable RUDY, PHYLLIS Attending Unavailable RUDY, PHYLLIS Consulting Unavailable RUDY, PHYLLIS Admitting Unavailable DR ELLIOT ROSALES Primary Care Unavailable DR ELLIOT ROSALES Primary Care Unavailable ELTAHAWY, EHAB Attending Unavailable ELTAHAWY, EHAB Consulting Unavailable ELTAHAWY, EHAB Admitting Unavailable SEMAJ, DR MAGALIS Hercules Consulting Unavailable DR ELLIOT ROSALES Primary Care Unavailable ELTAHAWY, EHAB Admitting Unavailable ELTAHAWY, EHAB Attending Unavailable ELTAHAWY, EHAB Consulting Unavailable DR ELLIOT ROSALES Primary Care Unavailable ELTAHAWY, EHAB Admitting Unavailable ELTAHAWY, EHAB Attending Unavailable ELTAHAWY, EHAB Consulting Unavailable DR ELLIOT ROSALES Primary Care Unavailable BAKHOUS, AZIZ Attending Unavailable BAKHOUS, AZIZ Consulting Unavailable JULITA, AZIZ Admitting Unavailable DR ELLIOT ROSALES Primary Care Unavailable TIBURCIOELEDiomedes, DR CRISTIANO Husain Attending Unavailable ENGKOSTAS, DR CRISTIANO Husain Consulting Unavailable ENGELEDiomedes, DR CRISTIANO Husain Admitting Unavailable DR ELLIOT ROSALES Primary Care Unavailable ELTAHAWY, EHAB Admitting Unavailable ELTAHAWY, EHAB Attending Unavailable ELTAHAWY, EHAB Consulting Unavailable Elliot Rosales MD Primary Care Provider Ema DOYLE Referring Unavailable Ema DOYLE Attending Unavailable ELLIOT ROSALES Primary Care Unavailable MD Yung Yang Attending Provider MD Elliot Rosales Primary Care Provider Patience Huitron Attending Unavailable Patience Huitron Attending Unavailable Patience Huitron Referring Unavailable Patience Huitron Referring Unavailable Patience Huitron Admitting Unavailable Patience Huitron Attending Unavailable Patience Huitron Attending Unavailable MD Elliot Rosales Primary Care Provider [phone] MD Yung Yang Attending Provider Elliot Rosales Primary Care Unavailable Asaad, Imad Admitting Unavailable Asaad, Imad Attending Unavailable Elliot Rosales Primary Care Unavailable Asaad, Imad Admitting Unavailable Asaad, Imad Attending Unavailable JUSTIN URRUTIA Referring Unavailable GHADAJUSTIN Disla Referring Unavailable GHADA, JUSTIN Referring Unavailable GHADA, JUSTIN Referring Unavailable GHADAJUSTIN Disla Attending Unavailable IGNACIO MARTINEZ Attending Unavailable GHADAJUSTIN Attending Unavailable GHADA, JUSTIN Referring Unavailable GHADA, JUSTIN Referring Unavailable GHADA, JUSTIN Referring Unavailable GHADA, JUSTIN Referring Unavailable GHADA, JUSTIN Referring Unavailable GHDAA, JUSTIN Referring Unavailable GHADA, JUSTIN Admitting Unavailable GHADAJUSTIN Disla Attending Unavailable GHADA, JUSTIN Referring Unavailable GHADA, JUSTIN Referring Unavailable Allergies Allergy Classification Reported Allergen(s) Allergy Type Date of Onset Reaction(s) Facility (10 sources) flu vaccines; Translations: [flu vaccines] Allergy to substance 3 Unknown [facility] (4 sources) Influenza Virus Vaccine Tv Split 2011-05 (60 Yr +); Translations: [INFLUENZA VIRUS VACCINE TV SPLIT 2011-05 (60 YR +)] Drug Intolerance 5 Intolerance [facility] (1 source) flu virus vaccine tv 2014- (18 yr and up),recomb Drug allergy (disorder) 6 [facility] Repository (9 sources) Influenza Vac A&B Surf Ant Adj Drug allergy 4 rash, vomiting [facility] (1 source) Flu Vaccine tvs 2011-05(65yr+) Drug allergy (disorder) [address] [facility] Repository (1 source) No Known Medication Allergies; Translations: [No Known Medication Allergies] Propensity to adverse reactions (disorder) [facility] Repository (2 sources) Influenza Virus Vaccines; Translations: [Influenza Virus Vaccines] Allergy to substance 3 Unknown Reaction [facility] Medications Current Medications Medication Drug Class(es) Dates Sig (Normalized) Sig (Original) acetaminophen 500 mg oral tablet (17 sources) Start: 12-13-2022 take 500 mg by [...] mouth every 6 hours as needed. Antiox.Mv No.25-Lcnt9n-Qye-Z ea (I-Caps) 280-10-2 mg Capsule (2 sources) Start: 12-13-2022 take 1 capsule by mouth once daily Antiox.Mv No.72-Bymu8t-Aax- Libby (I-Caps) 280-10-2 mg Capsule Active 1 CAP PO Daily December 13, 2022 12:00am aspirin 81 mg delayed release oral tablet [...] sources) HMG-CoA Reductase Inhibitor Start: 03-14-20 take 80 mg by mouth once daily Atorvastatin Active 80 MG PO Daily December 13, 2022 12:00am Comment on above: Take 80 mg by mouth once daily. atropine sulfate 0.025 mg / diphenoxylate hydrochloride 2.5 mg oral tablet (10 sources) Anticholinergic, Cholinergic Muscarinic Antagonist, Antidiarrheal Start: 10-14-19 Diphenoxylate-Atropi ne (Lomotil) 2.5-0.025 mg tablet Active 1 TAB PO As Directed October 14, 2023 12:00am Start: 08-27-2022 take 1 tablet by andrey th every six hours Lomotil 2.5-0.025 MG 1 tablet as needed Orally Four times a day for 10 days Aug, Active Comment on above: Take 1 tablet by andrey th four times daily as needed. Centrum Silver (9 sources) Start: 021 Centrum Silver Oral, Daily, Refill(s) 0 Start Date: 03/14/21 Status: Ordered cephalexin 500 mg oral capsule (3 sources) Cephalosporin Antibacterial Start: 022 take 1 capsule by mouth once daily Keflex 500 mg Cap 500 mg = 1 cap(s), Oral, Daily, Start 1 day prior to procedure, # 2 cap(s), Refills(s) 0, Pharmacy: [id number], 180, cm, 09/19/21 9:42:00 EDT, Height/Length Dosing, 86, kg, 09/19/21 9:42:00 EDT, Weight Dosing Start Date: 09/19/21 Status: Ordered cholecalciferol 0.025 mg oral capsule (2 sources) Vitamin D Start: take 25 ug by mouth once daily Cholecalciferol (Vitamin D3) Active 25 MCG PO Daily October 14, 2023 12:00am take 1 tablet by andrey th every twenty-four hours Vitamin D 25 MCG (1000 UT) 1 tablet Orally Once a day Active diazePAM 10 mg oral tablet (1 source) Benzodiazepine Start: 02-12-2023 Valium 10 mg T ab 10 mg = 1 tab(s), Oral, Once, PRN for anxiety, take 1 hour prior to scheduled procedure, # 1 tab(s), Refills(s) 0, Pharmacy: [id number], 180, cm, 12/04/22 9:13:00 EDT, Height/Length Dosing, 88, kg, 12/04/22 9:13:00 EDT, Weight Dosing Start Date: 02/12/23 Status: Ordered ferrous sulfate 160 mg extended release oral tablet (1 source) Start: 10-14-2023 take 1 tablet by mouth once daily Ferrous Sulfate, Dried (Slow Release Iron) 160 mg (50 mg iron) tablet extended release Active 160 MG PO Daily October 14, 2023 12:00am furosemide 20 mg oral tablet (20 sources) Loop Diuretic Start: 06-05-2022 take 20 mg by mouth once daily Furosemide Active 20 MG PO Daily December 13, 2022 12:00am take 10 mg by mouth once daily [...] Status: Ordered melatonin 10 mg oral tablet (12 sources) Start: 12-13-2022 take 10 mg by mouth at bedtime Melatonin Active 10 MG PO Bedtime December 13, 2022 12:00am take 1 capsule by mo [facility] every twenty-four hours Melatonin 10 MG 1 tablet at bedtime as needed Orally Once a day Active take 2 capsules by m [facility] every twenty-four hours Melatonin 10 MG 2 [...] oral tablet (20 sources) beta-Adrenergic Ash Start: 1 take 50 mg by mouth once daily Metoprolol Succinate Active 50 MG PO Daily December 13, 2022 12:00am Comment on above: Take 50 mg by mouth once daily. Multivitamin preparation (9 sources) take 1 tablet by mouth once daily Multi Vitamin - 1 tablet Orally Once a day Active Xslnmgsodaow-Cmmlgmcc-Ukbk in (Centrum Silver) Tablet (2 sources) Start: 3 take 1 tablet by mouth once daily Multivitamin-Certified Travel Counselor als-Lutein (Centrum Silver) Tablet Active 1 TAB PO Daily December 13, 2022 12:00am microencapsulated potassium chloride 20 meq extended release oral tablet (12 sources) Start: 4 take 20 mEq by mouth once daily Potassium Chloride Active 20 MEQ PO Daily October 14, 2023 12:00am Start: 07-23-2023 Potassium Chlo ride (Tzv-Ecgw-Hff M20) 20 mEq oral tablet, extended release Refills(s) 0 Start Date: 07/23/23 Status: Ordered take 1 capsule by [facility] every twenty-four hours Potassium Chloride ER 10 MEQ 1 tablet with food Orally Once a day Active potassium chlori de SR (MICRO-K) 10 mEq CR capsule Take 10 mEq by mouth twice daily. 0 Active take 1 tablet by [facility] every twenty-four hours Potassium Chloride ER 20 [...] (20 sources) alpha-Adrenergic Ash Start: 03-14-2021 take 0.4 mg by mouth once daily Tamsulosin Active 0.4 MG PO Daily December [...] 1/2 tablet Orally Once a day Not-Taking apixaban 5 mg oral tablet (14 sources) Factor Xa Inhibitor Start: 06-05-2022 End: 10-14-2023 take 1 tablet by mouth twice daily Apixaban (Eliquis) 5 mg tablet Discontinued 5 MG PO Twice daily December 13, 2022 12:00am October 14, 2023 7:07am take 1 tablet by mouth every twe lve hours Eliquis 2.5 MG 1 tablet Orally Twice a day Active Comment on above: Take by mouth twice daily. 24 hr mirabegron 25 mg extended release oral tablet (19 sources) beta3-Adrenergic Agonist Start: End: take 1 tablet by mouth once daily Mirabegron (Myrbetriq) 25 mg tablet extended release 24 hr Discontinued 25 MG PO Daily December 13, 2022 12:00am October 14, 2023 7:25am Comment on above: Take 25 mg by mouth once daily. MULTIVITAMIN ORAL (2 sources) MULTIVITAMIN ORA L Take by mouth. 0 Active Comment on above: Take by mouth. pantoprazole 20 mg delayed release oral tablet (6 sources) Proton Pump Inhibitor take 1 tablet by mouth every twenty-four hours Pantoprazole Sodium 20 MG 1 tablet Orally Once a day Not-Taking VIT C/VIT E/LUTEIN/MIN/OMEGA-3 (OCUVITE ORAL) (2 sources) VIT C/VIT E/LUTEIN/MIN/OMEGA-3 (OCUVITE ORAL) Take by mouth. 0 Active [...] of prostate] Onset: 10-04-2015 Episodic Cardiac dysrhythmias (6 sources) Paroxysmal atrial fibrillation; Translations: [PAROXYSMAL ATRIAL FIBRILLATION] Onset: 05-22-2022 Chronic Chronic kidney disease (8 sources) Chronic kidney disease stage 3A ; Translations: [Chronic kidney disease, stage 3a] Chronic Conduction disorders (4 sources) Encounter for adjustment and management of automatic implantable cardiac defibrillator; Translations: [Presence of automatic (implantable) cardiac defibrillator] Onset: 12-04-2023 Chronic Coronary atherosclerosis and other heart disease (6 sources) Atherosclerotic heart disease of [place] coronary artery without angina pectoris; Translations: [Coronary atherosclerosis due to lipid rich plaque] Onset: 05-02-2022 Chronic Coronary atherosclerosis and other heart disease (3 sources) Presence of aortocoronary bypass graft Episodic Deficiency and other anemia (9 sources) Anemia 03-14-2021 Episodic Deficiency and other anemia (3 sources) Anemia, unspecified Episodic Fluid and electrolyte disorders (1 source) Hypokalemia [...] sources) Long-term current use of anticoagulant; 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 Unclassified (5 sources) Drug therapy finding 06-05-2022 Unclassified (1 source) CONTACT W/AND (SUSP) EXPOS COVID-19; Translations: [CONTACT W/AND (SUSP) EXPOS COVID-19] Onset: 02-15-2022 Unclassified (1 source) Encounter for screening for malignant neoplasm of colon; Translations: [Encounter for screening for malignant neoplasm of colon] Onset: 12-13-2022 Unclassified (2 sources) Other persistent atrial fibrillation; Translations: [Other persistent atrial fibrillation] Onset: 05-04-2024 Past or Other Problems Problem Classification Problem Date Documented Da te Episodic/Chronic Chronic kidney disease (4 sources) Chronic kidney disease Nonspecific chest pain (4 sources) Chest pain, unspecified; Translations: [CHEST PAIN UNSPECIFIED] Onset: 02-07-2022 Episodic Other aftercare (1 source) Other snf (current) drug therapy; Translations: [OTH TUBE MOLDER FIBERGLASS CURRENT DRUG THERAPY] Onset: 05-25-2022 Episodic Other lower respiratory disease (4 sources) Shortness of breath; Translations: [SHORTNESS OF BREATH] Onset: 06-03-2022 Episodic Results Test Name Value Interpretation Reference Range Facility Office Visiton 05-04-2024 Follow-up visit [id number] Hans Amin 1945 M Date Provider Department Center 05/04/2024 JUSTIN BAIG LISHA [facility] Family History Problem Relation Age of Onset Diabetes Mother Coronary artery disease Father Other Sister Family Status - Relation Status Age at Mother Father Sister Level of Service:51281 NE OFFICE/OUTPATIENT ESTABLISHED LOW MDM 20 MIN Normal [facility] Follow-Upon 01-07-2024 Follow-Up [id number] Hans Amin 1945 M Date Provider Department Center 01/07/2024 IGNACIO DOMINGO [facility] Family History Problem Relation Age of Onset Diabetes Mother Coronary artery disease Father Other Sister Family Status - Relation Status Age at Mother Father Sister Level of Service:60746 NE OFFICE/OUTPATIENT ESTABLISHED MOD MDM 30 MIN Reason for Visit and Comments: Follow-up [788180] - Follow up ablation Normal [facility] Telephoneon 12-19-2023 Telephone [id number] Hans Amin 1945 M Date Provider Department Center 12/19/2023 JUSTIN BAIG [facility] Family History Problem Relation Age of Onset Diabetes Mother Coronary artery disease Father Other Sister Family Status - Relation Status Age at Mother Father Sister Reason for Visit and Comments: week f/u post ablation [Other] Normal [facility] HPon 12-11-2023 [facility] Electrophysiology Consult Note Reason for visit: CAD/CABG, HCM, NSVT s/p ICD, Afib 12/11/23 Pt here for Afib ablation. 11/11/23 Patient here for 6 mo follow up and device check. Doing very well, as he denies chest pain, SOB, palpitations, and lightheadedness/syncop e. Had labs in Jun 2023. device check done on 11/11/2023 does reveal presence of underlying atrial fibrillation noted on few days the last of which was on 10/28/2023 where in the duration lasted for approximately 47 minutes with an average heart rate of 101 bpm. echocardiogram done on 02/27/2023 does reveal moderately dilated left atrium and CT 05/12/23: Patient for 6-month follow-up, is been doing well with no complaints of chest pain, shortness breath, CALDERÓN, LE edema Device check 05/12/23: a=paced 43% . Rate response increased to allow for better exertional response, on DDD , no AF 02/18/23 dr. urrutia HPI: Ignacio Amin is a 78 y.o. year old with past medical history [...] left greater saphenous vein. CTA CHEST W IV CONTRAST 02/20/2022 CT CHEST ANGIOGRAM W AND/OR WO IV CONTRAST GREEN CONVERSION PROSTATE SURGERY SH: Social Determinants of Health Tobacco Use: Medium Risk (12/11/2023) Patient History Smoking Tobacco Use: Former Smokeless Tobacco Use: Never Passive Exposure: Not on file Alcohol Use: Not on file Financial Resource Strain: Not on file Food Insecurity: Not on file Transportation Needs: Not on file Physical Activity: Not on file Stress: Not on file Social Connections: Not on file Intimate Partner Violence: Unknown (08/14/2023) [place] Safety & [place] Fear of Current or Ex-Partner: Not on file Emotionally Abused: Not on file Physically Abused: Not on file Sexually Abused: Not on file Physically or Sexually Abused: Not on file Depression: Not on file Housing Stability: Not on file Utilities: Not on file Allergies: Allergies Allergen Reactions Influenza Virus Vaccine Tv Split 2011-05 (60 Yr +) Other Weight: 88.9kg Visit Vitals Smoking Status Former Meds: No current facility-administered medications on file prior to encounter. Current Outpatient Medications on File Prior to Encounter Medication Sig Dispense Refill aspirin 81 mg EC tablet Take 1 tablet every day by oral route. atorvastatin (Lipitor) 80 mg tablet Take 1 tablet (80 mg) by mouth at bedtime. 90 tablet 3 cholecalciferol (Vitamin D-3) 25 MCG (1000 UT) capsule 1 capsule 1 (one) time each day at the same time. ferrous sulfate 325 (65 Fe) MG tablet Take 65 mg by mouth with breakfast. furosemide (Lasix) 20 mg tablet Take 1 tablet (20 mg) by mouth in the morning. 90 tablet 3 melatonin 10 mg tablet Take by mouth. metoprolol succinate XL (Toprol-XL) 50 mg 24 hr tablet Take 1 tablet (50 mg) by mouth in the morning. 90 tablet 3 tamsulosin (Flomax) 0.4 mg 24 hr capsule Take 1 capsule by mouth in the morning. [DISCONTINUED] potassium chloride CR (Klor-Con M20) 20 mEq ER tablet Take 1 tablet (20 mEq) by mouth in the morning. Do not crush or chew. 90 each 3 ROS: Review of Systems Musculoskeletal: Positive for joint pain. All other systems reviewed and are negative. Physical Exam: Constitutional General Appearance: well-nourished, well-developed, appears stated age Level of Distress: comfortable Psychiatric Mental Status: alert, normal affect Orientation: oriented to time, place, and person Insight: good judgement Eyes Lids and Conjunctivae: non-injected, no xanthelasma ENMT Ears: no lesions on (more content not included)... Normal [facility] POCT GLUCOSE METER UNSOLICIT ED RESULTSon 12-11-2023 Glucose [Mass/Vol] 108 mg/dL High 70-105 [facility] Comment on above: Order Comment: Waive d Testing in the ED is performed under the ED CLIA certificate #[id number]. Result Comment: dhol as Performed By: #### L [id number] ####[facility] (AutoeBid)[address] [place] [address] PROTIME-INRon 12-11-2023 INR IN PPP BY COAGULATION ASSAY 1.04 Normal 0.90-1.10 [facility] Comment on above: Result Comment: ACCC P RECOMMENDED INR FOR WARFARIN THERAPY CONDITION INR PROPHYLAXIS OF VENOUS THROMBOSIS 2-3 (HIGH-RISK SURGERY) TREATMENT OF VENOUS THROMBOSIS 2-3 TREATMENT OF PULMONARY EMBOLISM 2-3 PREVENTION OF SYSTEMIC EMBOLISM: 2-3 ACUTE MYOCARDIAL INFARCTION TISSUE HEART VALVES VALVULAR HEART DISEASE ATRIAL FIBRILLATION RECURRENT SYSTEMIC EMBOLISM MECHANICAL HEART VALVE 2.5-3.5 FROM: ORAL ANTICOAGULANTS. MECHANISM OF ACTION, CLINICAL EFFECTIVENESS, AND OPTIMAL THERAPEUTIC RANGE. CHEST 1995;108:231S-246S. Performed By: #### L [id number] ####[facility] (BEAkamedia)[address] [place] [address] PROTHROMBIN TIME (PT) IN PPP BY COAGULATION ASSAY 13.6 Seconds Normal 12.3-14.8 [facility] Comment on above: Performed By: #### L [id number] ####[facility] (BEAKER)[address] [place] [address] Prep for Procedureon 024 Prep for Procedure [id number] Hans Amin Sarita 1945 M Date Provider Department Center 12/11/2023 JennyGHADAJUSTIN [facility] Family History Problem Relation Age of Onset Diabetes Mother Coronary artery disease Father Other Sister Family Status - Relation Status Age at Mother Father Sister Normal [facility] [id number] 12-04-2023 [id number] HOLD ELIQUIS 12/09 MEDICATIONS TO TAKE DAY OF SURGERY WITH SIP OF WATER METOPROLOL PT STATES LABS COMPLETED AT [facility] ON 12/03 NSAIDs (Motrin,Aleve): 5 days prior to procedure Vitamins/Supplements: 5 days prior to procedure IF YOU ARE GOING HOME AFTER YOUR SURGERY OR PROCEDURE, FOR YOUR SAFETY, YOUR SURGERY WILL BE CANCELLED IF BOTH OF THE FOLLOWING ARE NOT AVAILABLE: An adult trolley coach driver over the age of 18, that can receive information about your care after surgery, and drive you home. A responsible adult to stay with you for 24 hours in case of an emergency. Can be same as above. The highest risk of complications is within the first 24 hours after sedation/anesthesia. Nothing to eat or drink after midnight the night before surgery. This includes gum, candy, mints, and lozenges. No alcohol, marijuana, or tobacco products including vaping for 24 hours. Please brush your teeth; don't swallow the toothpaste or water. If you use dentures, wear them but do not use paste. Please leave any other removable dental hardware at home. Do not put in contact lenses. Do not wear perfume, make-up, nail lao, or lotions on the day of your surgery or procedure. Follow skin-prep/wipe instructions as below if required. Bring with you: *Insurance card *Photo ID *Medication list *Co-pay for visit/prescriptions If applicable: *Rescue inhalers *Green bracelet from lab *CPAP or BiPAP machine, if staying overnight *Any braces, splints, or equipment ordered preoperatively *Remote controls for implanted devices Leave at home: *Purse/Wallet/Ortiz- unless needed for co-pay *Cell phone (can leave with family/friend or place in locker if needed) *Jewelry (including piercings and wedding bands) *If not possible, ask the person who is waiting with you to keep them Children under the age of 12 will not be allowed into patient care areas. We will call you between 3pm and 4pm the day before your surgery to give you an arrival time. If you do not receive this call, have any questions, or need to make any changes, please call [phone]. Notify your surgeon if you develop any illness such as a cold, cough, fever, sore throat or vomiting between now and your surgery. Thank you for entrusting us with your care. [facility] Surgical Services Team Normal [facility] Orders Onlyon 11-13-2023 Orders Only [id number] Hans Amin E 1945 Date Provider Department Center 11/13/2023 Lashawn-BLANCA CHAVIS [facility] Family History Problem Relation Age of Onset Diabetes Mother Coronary artery disease Father Other Sister Family Status - Relation Status Age at Mother Father Sister Normal [facility] Prep for Procedureon 024 Prep for Procedure [id number] Hans Amin E 1945 [facility] Provider Department Center 11/13/2023 JUSTIN BAIG [facility] Family History Problem Relation Age of Onset Diabetes Mother Coronary artery disease Father Other Sister Family Status - Relation Status Age at Mother Father Sister Normal [facility] Office Visiton 11-11-2023 Follow-up visit [id number] Hans Amin E 1945 Date Provider Department [place] 11/11/2023 JUSTIN BAIG [facility] Family History Problem Relation Age of Onset Diabetes Mother Coronary artery disease Father Other Sister Family Status - Relation Status Age at Mother Father Sister Level of Service:06489 NE OFFICE/OUTPATIENT ESTABLISHED HIGH MDM 40 MIN Normal [facility] Orders Onlyon 11-11-2023 Orders Only [id number] Hans Amin E 1945 M Date Provider Department Center 11/11/2023 JEAN CLAUDE HERNANDEZ [facility] Family History Problem Relation Age of Onset Diabetes Mother Coronary artery disease Father Other Sister Family Status - Relation Status Age at Mother Father Sister Normal [facility] Hemoglobin [Mass/volume] in Bloodon 09-26-2023 Hemoglobin (Bld) [Mass/Vol] 13.7 g/dL 14.0-18.0 [facility] Screenson 07-29-2023 Screens [id number] Normal [facility] Screens [id number] Normal [facility] Ambulatory Visit Summaryon 0 07-23-2023 Ambulatory [...] minerals (Centrum Silver) potassium chloride (Potassium Chloride (Lkw-Fugj-Ugq M20) 20 mEq oral tablet, extended release) [...] or concerns Unchanged potassium chloride (Potassium Chloride (Iam-Oywo-Qik M20) 20 mEq oral tablet, extended release) [...] A digit (more content not included)... Normal [facility] Patient Educationon 07-23-19 Patient Education Urology [...] Follow these instructions at home: ? Take esig-wdw-byweyxh and prescription medicines only as told by [...] the medicine (more content not included)... Normal [facility] Urology Office/Clinic Noteon 07-23-2023 Urology Office/Clinic Note Chief Complaint 3m HPI Staff Pt is here for a 3 [...] voids. Avoid bladder irritants 4. Anticoagulated (Z79.01: prison (current) use of anticoagulants) Eliquis 5mg BID [...] Instructions: PRN Patient Education Benign Prostatic Hyperplasia IVania, personally scribed for Dr. Huitron on 07/23/2023 10:46:55. . Documentation recorded by the scribeVania, accurately reflects the services(s) I performed an (more content not included)... [facility] Comment on above: Result Comment: Elec tronically Signed By: Patience Huitron MD\.br\Date and Time Signed: 07/23/23 15:27 EST\.br\Electronically Co-Signed By: Vania Dougherty\.br\Date and Time Co-Signed: 07/23/23 10:47 EST Scre[place] 04-17-2023 Screens [id number] .00TIFF [facility] Screens [id number]#1.00 [facility] Visit Summary IGNACIO AMIN :1945 Visit Date:04/16/2023 Ambulatory Visit Instructions Your Diagnosis BPH with urinary obstruction Personal history of prostate cancer OAB (overactive bladder) Anticoagulated Tests Performed Urnls Dip Stick Auto w/o Microscopy POC 40528 Your Care Team Attending Physician - Patience [...] with minerals (Centrum Silver) multivitamin with minerals ([place] Prostate Health Complex Classic) [Image Removed: STOP]Stop [...] Patience Huitron MD Where: [facility] Patient Educationon 04-16-20 23 Patient Education Urology [...] Follow these instructions at home: ? Take oxxu-une-tfwazju and prescription medicines only as told by [...] the medicine (more content not included)... Normal [facility] Urology Office/Clinic Noteon 04-16-2023 Urology Office/Clinic Note [...] voids -Re-eval after tamsulosin 4. Anticoagulated (Z79.01: prison (current) use of anticoagulants) Eliquis 5mg BID [...] 04/16/2023 10:59:26. . Documentation recorded by the Vania cottrell, accurately reflects the services(s) I performed and decisions made by me. Authenticated by Dr. Huitron on 04/16/2023 12:38:21. 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 Normal [facility] Comment on above: Result Comment: Elec tronically Signed By: Patience Huitron MD\.br\Date and Time Signed: 04/16/23 12:38 EDT\.br\Electronically Co-Signed By: Vania Dougherty\.br\Date and Time Co-Signed: 04/16/23 10:59 EDT Consent for Procedure/Surger yon 03-03-2023 Consent for Procedure/Surgery [id number]#1. 00CD:127 [facility] Consent for Treatmenton 02-21 Consent for Treatment [id number]#1.0 0CD:127 [facility] Inpatient Patient Summaryon 03-03-2023 Inpatient Patient Summary [place] [address] Clinical Summary Person Information Name: IGNACIO AMIN Age: 77 Years : 1945 Sex: Male PCP: ELLIOT ROSALES MD Marital Status: Race: White Ethnicity: Non- or Language: Persian Visit Id: Visit Reason: BPH WITH LUTS Speciality: Acuity: Enc Type: Outpatient Med Service: Surgery Arrival: 03/03/2023 08:34:30 Discharge: Dispo Type: Address: [address] [place] [phone] Provider Notes: Diagnosis: Anticoagulated; BPH with urinary [...] Follow up: With: Address: When: Patience Huitron [address], [place] [address], [place] [id number] [phone] Business (1) Comments: Office to schedule follow up in 1 month with PVR Patient Education Information: Lue - Urolift Post-Op Instructions (CUSTOM) [facility] IntraOperative Documentson 0 03-03-2023 IntraOperative Documents [id number]#1. 00CD:127 [facility] Main OR Intraoperative Recor don 03-03-2023 Main OR Intraoperative Record IntraOp Document Type FTURO Summary Primary Physician: Patience Huitron MD Finalized Date/Time: 03/03/23 10:01:19 Pt. Name: IGNACIO AMIN Sarita Akhtar/Sex: 1945 Male Med Rec #: [id number] Physician: Patience Huitron MD Financial #: [id number] Pt. Type: O Room/Bed: / Admit/Disch: 03/03/23 [...] Catia Jarvis Role Performed Surgeon - Primary Transmitter Engineer - Primary Scrub - Primary Time In [...] UROLIFT IMPLANT Serial Number Lot Number [id number] Staff Physician NEOTRACT NEOTRACT Catalog ?# [id number] UL2-C Size [...] Signed By: Leola Conde RN 03/03/23 10:01 [facility] Main OR Preoperative Recordo n 03-03-2023 Main OR Preoperative Record Holding Area Document Type FTURO Summary Primary Physician: Patience Huitron MD Finalized Date/Time: 03/03/23 09:24:52 Pt. Name: IGNACIO AMIN/Sex: 1945 Male Med Rec #: [id number] Physician: Patience Huitron MD Financial #: [id number] Pt. Type: O Room/Bed: / Admit/Disch: 03/03/23 08:34:30 - Institution: Case Times Holding FTURO Pre-Care Text: Verifies consent for planned procedure, identifies individual values and wishes concerning care, includes family members in perioperative teaching Secures patient's records' belongings, and valuables, maintains patient's dignity and privacy, and maintains patient confidentiality Entry 1 In Holding 03/03/23 09:16:00 Outcomes Met? Yes Last Modified By: Oneida TRIMBLE, Shannon WATTS 03/03/23 09:16:12 Post-Care Text: The patient participates [...] STEFANIE Mohamud RN, Ruthann 03/03/23 09:[address] [facility] Operative Reporton 3 Operative Report Patient: [...] up in 1 month with PVR. Normal [facility] Comment on above: Result Comment: Elec tronically Signed By: Tomy DUNN, Patience Salinas\.br\Date and Time Signed: 03/03/23 10:07 EDT Outpatient Surgery Discharge Instructionon 03-03-2023 Outpatient Surgery Discharge Instruction [address] [address] Patient Discharge Instructions PERSON INFORMATION Name: IGNACIO AMIN Date of : 1945 Current Date: 03/03/2023 10:03:11 PHYSICIANS Admitting Physician: Tomy DUNN, Patience Salinas Comment: Discharge Diagnosis: Anticoagulated; BPH with urinary obstruction; Other obstructive and reflux uropathy IGNACIO AMIN has been given the following list of follow-up instructions, prescriptions, and patient education materials: IF UNABLE TO CONTACT YOUR PHYSICIAN AND YOU FEEL IT IS AN EMERGENCY, GO TO THE NEAREST EMERGENCY ROOM OR CALL 911 Follow up: With: Address: When: Patience Huitron [address] [place] [address], [address] [phone] Business (1) Comments: Office to schedule follow up in 1 month with PVR Comment: PATIENT EDUCATION INFORMATION Instructions: [facility] [place], [place] Post-Operative Instructions for UroLift After your [...] large th (more content not included)... Normal [facility] Patient Educationon 03-03-20 23 Patient Education [facility] [place], [place] Post-Operative Instructions for UroLift After your [...] like the bladder is not emptying. Normal [facility] Reminderson 02-12-2023 Reminders - From: Marley Santillan To: DEMETRIUS - Recallfrank Huitron; Sent: 12/25/2022 15:33:52 EDT Show up: 02/04/2023 15:33:00 EDT Subject: schedule UroLift Reminder/Recall PAtient would like urolift in . Clearance to hold [employer] (note 12/20/22) called patient to schedule, left msg on voicemail Patient is scheduled 03/03/[address] [facility] Consultation Noteon 12-31-19 Consultation Note [id number] 0CD:[address] [facility] Félix 12-13-2022 L -- ---- Specimen: [id number] Received: 12/13/22 Status: LORI Villafana Num: [id number] Spec Type: Surgical Subm Dr: Yung Yang MD Tissues: A Colon Biopsy (ASCENDING POLYPS) Procedures: HE/2, Gross/Micro L4 ---- Age/ Patient Sex Location Account Attending Physician ---- Ignacio Amin /M [id number] Yung Yang MD ---- SPEC NUM: [id number] RECD: 12/13/22 STATUS: LORI VILLAFANA NUM: [id number] DILLON: 12/13/22- [facility] DR: Yung Yang MD ENTERED: 12/13/22 [facility] DR: MIRELLA TYPE: Surgical DEPT: S ORDERED: [...] microscopic examination confirms the diagnosis. CPT Codes 90466 ---- ---- Specimen: [id number] Received: 12/13/22 Status: LORI Villafana Num: [id number] Spec Type: Surgical Subm Dr: Yung Yang MD Tissues: A Colon Biopsy (ASCENDING POLYPS) Procedures: HE/2, Gross/Micro L4 ---- Patient: Ignacio Amin [id number] (Continued) ---- Signed (signature on file) Ashley Mcgrath MD 12/16/22 1120 Normal [facility] Urology Office/Clinic Noteon 12-05-2022 Urology Office/Clinic Note [...] the future -Timed voids 4. 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 Huitron on 12/04/2022 09:47:59. . Documentation recorded by the scribsarita, Keely Zacarias, accurately reflects the services(s) I performed and decisions made by me. Authenticated by Dr. Huitron on 12/05/19 (more content not included)... [facility] Comment on above: Result Comment: Elec tronically Signed By: Patience Huitron MD\.br\Date and Time Signed: 12/04/22 23:21 EDT\.br\Electronically Co-Signed By: Keely Zacarias\.br\Date and Time Co-Signed: 12/04/22 09:48 EDT Formson 12-04-2022 Forms [id number]#1.0 0CD:127 [facility] Patient Educationon 12-05-19 Patient Education Urology Benign [...] Follow these instructions at home: ? Take ontl-dnz-ilvzdxq and prescription medicines only as told by [...] the medicine (more content not included)... Normal [facility] Screenson 12-04-2022 Screens [id number]. 00CD:127 [facility] Screens [id number]#1. 00CD:127 [facility] CNOVon 09-24-2022 CNOV Office Visit (EARLA ) IGNACIO AMIN ([id number]) 1945 M Date Time Provider Department 09/24/22 1:00 PM Ema DOYLE During your visit today, we recorded the following information about you: Temperature Pulse Respiration Blood pressure 97.1 degrees 60/minute 18/minute 129/79 Weight 86 kg Nurys Saleem, NAI 10/01/2022 10:49 AM Signed AUA 3 Nurys Saleem RN G Abhijeet Doyle MD 10/01/2022 10:49 AM Signed Radiation Oncology [...] in the EMR. Referring Provider: Ema DOYLE [[id number]] Allergies As of Date: 09/24/2022 Noted Allergy Reaction INFLUENZA VIRUS VACCINE TV SPLIT *10/04/2014 5 - Intolerance Date Reviewed: 09/24/2022 Reviewed by: Nurys Saleem RN - Fully Assessed Primary Visit Diagnosis:History of prostate cancer [Z85.46] Order(s):PSA (OUTSIDE) [0603707] Order #: [id number] PSA/PROSTSPECAG DIAG [SQPSA] Order #: [id number] FUTURE Prescriptions as of 10/01/2022 - furosemide [...] 24, 2022 1:06 PM Status: Signed DAVID 3 Franco (more content not included)... Normal [facility] FERRITINon 08-05-2022 Ferritin [Mass/Vol] 157.0 ng/mL Normal 26.0-388.0 [facility] Comment on above: Performed By: #### F ERR #### [facility] [address] [place] [address] Dr. Yoselin Rivera HEMOGRAM AND PLATELon 2022 Hematocrit (Bld) [Volume fraction] 35.7 % Critically low 42.0-54.0 [facility] Comment on above: Performed By: #### H H #### [facility] [address] [place] [address] [address] Yoselin Rivera Hemoglobin (Bld) [Mass/Vol] 11.8 g/dL Critically low 14.0-18.[address] [facility] Comment on above: Performed By: #### H H #### [facility] [address] [place] [address] [address] Yoselin Rivera MCH (RBC) [Entitic mass] 30.3 pg Normal 25.9-34.[address] [facility] Comment on above: Performed By: #### H H #### [facility] [address] [place] [address] [address] Yoselin Rivera MCHC (RBC) [Mass/Vol] 33.1 g/dL Normal 29.9-35.2 [facility] Comment on above: Performed By: #### H H #### [facility] [address] [place] [address] [address] Yoselin Rivera MCV (RBC) [Entitic vol] 91.8 fL Normal 80.0-94.0 [facility] Comment on above: Performed By: #### H H #### [facility] [address] [place] [address] [address] Yoselin Rivera PLT 157 103/ul Normal 150-450 [facility] Comment on above: Performed By: #### H H #### [facility] [address] [place] [address] [address] Yoselin Rivera RBC 3.89 106/ul Critically low 4.70-6.10 [facility] Comment on above: Performed By: #### H H #### [facility] [address] [place] [address] Dr. Yoselin Rivera WBC 5.0 103/ul Normal 4.0-11.0 [facility] Comment on above: Performed By: #### H H #### [facility] [address] [place] [address] Dr. Yoselin Rivera PROF 14(COMP METB)on 023 Albumin [Mass/Vol] 3.6 g/dL Normal 3.4-5.0 [facility] Comment on above: Performed By: #### C MP #### [facility] [address] [place] [address] Dr. Yoselin Rivera Albumin/Globulin [Mass ratio] 1.0 {ratio} Normal [facility] Comment on above: Performed By: #### C MP #### [facility] [address] [place] [address] Dr. Yoselin Rivera ALP [Catalytic activity/Vol] 102 U/L Normal 46-[address] [facility] Comment on above: Performed By: #### C MP #### [facility] [address] [place] [address] Dr. Yoselin Rivera ALT [Catalytic activity/Vol] 31 U/L Normal 16-63 [facility] Comment on above: Performed By: #### C MP #### [facility] [address] [place] [address] [address] Yoselin Rivera Anion gap [Moles/Vol] 11.6 mmol/L Normal [facility] Comment on above: Performed By: #### C MP #### [facility] [address] [place] [address] Dr. Yoselin Rivera AST [Catalytic activity/Vol] 21 U/L Normal 15-37 [facility] Comment on above: Performed By: #### C MP #### [facility] [address] [place] [address] [address] Yoselin Rivera Bilirubin [Mass/Vol] 0.5 mg/dL Normal 0.2-1.0 [facility] Comment on above: Performed By: #### C MP #### [facility] [address] [place] [address] Dr. Yoselin Rivera Calcium [Mass/Vol] 9.3 mg/dL Normal 8.5-10.1 [facility] Comment on above: Performed By: #### C MP #### [facility] [address] [place] [address] Dr. Yoselin Rivera Chloride [Moles/Vol] 104 mmol/L Normal 98-107 [facility] Comment on above: Performed By: #### C MP #### [facility] [address] [place] [address] Dr. Yoselin Rivera CO2 [Moles/Vol] 30.6 mmol/L Normal 21.0-32.0 [facility] Comment on above: Performed By: #### C MP #### [facility] [address] [place] [address] Dr. Yoselin Rivera Creatinine [Mass/Vol] 1.25 mg/dL Normal 0.70-1.30 [facility] Comment on above: Performed By: #### C MP #### [facility] [address] [place] [address] Dr. Yoselin Rivera EGFR-AF SYRIAN >60 Normal >=60 [facility] Comment on above: Performed By: #### C MP #### [facility] [address] [place] [address] Dr. Yoselin Rivera EGFR-NON AF SYRIAN 56 mL/min/1.73m2 Critically low >=60 [facility] Comment on above: Performed By: #### C MP #### [facility] [address] [place] [address] [address] Yoselin Rivera Globulin (S) [Mass/Vol] 3.5 g/dL Normal [facility] Comment on above: Performed By: #### C MP #### [facility] [address] [place] [address] [address] Yoselin Rivera Glucose [Mass/Vol] 132 mg/dL Critically high 74-106 [facility] Comment on above: Performed By: #### C MP #### [facility] [address] [place] [address] [address] Yoselin Rivera Potassium [Moles/Vol] 4.2 mmol/L Normal 3.5-5.1 [facility] Comment on above: Performed By: #### C MP #### [facility] [address] [place] [address] [address] Yoselin Rivera Protein [Mass/Vol] 7.1 g/dL Normal 6.4-8.2 [facility] Comment on above: Performed By: #### C MP #### [facility] [address] [place] [address] [address] Yoselin Rivera Sodium [Moles/Vol] 142 mmol/L Normal 136-145 [facility] Comment on above: Performed By: #### C MP #### [facility] [address] [place] [address] [address] Yoselin Rivera Urea nitrogen [Mass/Vol] 27.0 mg/dL Critically high 7.0-18.0 [facility] Comment on above: Performed By: #### C MP #### [facility] [address] [place] [address] Dr. Yoselin Rivera Urea nitrogen/Creatinine [Mass ratio] 21.6 mg/mg Normal [facility] Comment on above: Performed By: #### C MP #### [facility] [address] [place] [address] Dr. Yoselin Rivera PROF CHEM 8 (BAS METB)on Anion gap [Moles/Vol] 11.3 mmol/L Normal [facility] Comment on above: Performed By: #### B MP #### [facility] [address] [place] [address] [address] Yoselin Rivera Calcium [Mass/Vol] 9.3 mg/dL Normal 8.5-10.1 [facility] Comment on above: Performed By: #### B MP #### [facility] [address] [place] [address] [address] Yoselin Rivera Chloride [Moles/Vol] 103 mmol/L Normal 98-107 [facility] Comment on above: Performed By: #### B MP #### [facility] [address] [place] [address] [address] Yoselin Rivera CO2 [Moles/Vol] 31.6 mmol/L Normal 21.0-32.0 [facility] Comment on above: Performed By: #### B MP #### [facility] [address] [place] [address] [address] Yoselin Rivera Creatinine [Mass/Vol] 1.34 mg/dL Critically high 0.70-1.30 [facility] Comment on above: Performed By: #### B MP #### [facility] [address] [place] [address] Dr. Yoselin Rivera EGFR-AF SYRIAN >60 Normal >=60 [facility] Comment on above: Performed By: #### B MP #### [facility] [address] [place] [address] [address] Yoselin Rivera EGFR-NON AF SYRIAN 52 mL/min/1.73m2 Critically low >=60 [facility] Comment on above: Performed By: #### B MP #### [facility] [address] [place] [address] [address] Yoselin Rivera Glucose [Mass/Vol] 150 mg/dL Critically high 74-106 [facility] Comment on above: Performed By: #### B MP #### [facility] [address] [place] [address] [address] Yoselin Rivera Potassium [Moles/Vol] 3.9 mmol/L Normal 3.5-5.1 [facility] Comment on above: Performed By: #### B MP #### [facility] [address] [place] [address] Dr. Yoselin Rivera Sodium [Moles/Vol] 142 mmol/L Normal 136-145 [facility] Comment on above: Performed By: #### B MP #### [facility] [address] [place] [address] Dr. Yoselin Rivera Urea nitrogen [Mass/Vol] 32.0 mg/dL Critically high 7.0-18.0 [facility] Comment on above: Performed By: #### B MP #### [facility] [address] [place] [address] Dr. Yoselin Rivera Urea nitrogen/Creatinine [Mass ratio] 23.9 mg/mg Normal [facility] Comment on above: Performed By: #### B MP #### [facility] [address] [place] [address] Dr. Yoselin Rivera PROF 14(COMP METB)on 022 Albumin [Mass/Vol] 3.4 g/dL Normal 3.4-5.0 [facility] Comment on above: Performed By: #### H H #### [facility] [address] [place] [address] Dr. Yoselin Rivera Albumin/Globulin [Mass ratio] 1.0 {ratio} Normal [facility] Comment on above: Performed By: #### H H #### [facility] [address] [place] [address] Dr. Yoselin Rivera ALP [Catalytic activity/Vol] 79 U/L Normal 46-116 [facility] Comment on above: Performed By: #### H H #### [facility] [address] [place] [address] Dr. Yoselin Rivera ALT [Catalytic activity/Vol] 25 U/L Normal 16-63 [facility] Comment on above: Performed By: #### H H #### [facility] [address] [place] [address] Dr. Yoselin Rivera Anion gap [Moles/Vol] 10.7 mmol/L Normal [facility] Comment on above: Performed By: #### H H #### [facility] [address] [place] [address] [address] Yoselin Rivera AST [Catalytic activity/Vol] 20 U/L Normal 15-37 [facility] Comment on above: Performed By: #### H H #### [facility] [address] [place] [address] [address] Yoselin Rivera Bilirubin [Mass/Vol] 0.5 mg/dL Normal 0.2-1.0 [facility] Comment on above: Performed By: #### H H #### [facility] [address] [place] [address] [address] Yoselin Rivera Calcium [Mass/Vol] 9.1 mg/dL Normal 8.5-10.1 [facility] Comment on above: Performed By: #### H H #### [facility] [address] [place] [address] [address] Yoselin Rivera Chloride [Moles/Vol] 108 mmol/L Critically high 98-107 [facility] Comment on above: Performed By: #### H H #### [facility] [address] [place] [address] [address] Yoselin Rivera CO2 [Moles/Vol] 28.8 mmol/L Normal 21.0-32.0 [facility] Comment on above: Performed By: #### H H #### [facility] [address] [place] [address] [address] Yoselin Rivera Creatinine [Mass/Vol] 1.32 mg/dL Critically high 0.70-1.30 [facility] Comment on above: Performed By: #### H H #### [facility] [address] [place] [address] [address] Yoselin Rivera EGFR-AF SYRIAN >60 Normal >=60 [facility] Comment on above: Performed By: #### H H #### [facility] [address] [place] [address] [address] Yoselin Rivera EGFR-NON AF SYRIAN 53 mL/min/1.73m2 Critically low >=60 [facility] Comment on above: Performed By: #### H H #### [facility] [address] [place] [address] [address] Yoselin Rivera Globulin (S) [Mass/Vol] 3.4 g/dL Normal [facility] Comment on above: Performed By: #### H H #### [facility] [address] [place] [address] [address] Yoselin Rivera Glucose [Mass/Vol] 90 mg/dL Normal 74-106 [facility] Comment on above: Performed By: #### H H #### [facility] [address] [place] [address] [address] Yoselin Rivera Potassium [Moles/Vol] 4.5 mmol/L Normal 3.5-5.1 [facility] Comment on above: Performed By: #### H H #### [facility] [address] [place] [address] Dr. Yoselin Rivera Protein [Mass/Vol] 6.8 g/dL Normal 6.4-8.2 [facility] Comment on above: Performed By: #### H H #### [facility] [address] [place] [address] Dr. Yoselin Rivera Sodium [Moles/Vol] 143 mmol/L Normal 136-145 [facility] Comment on above: Performed By: #### H H #### [facility] [address] [place] [address] Dr. Yoselin Rivera Urea nitrogen [Mass/Vol] 26.0 mg/dL Critically high 7.0-18.0 [facility] Comment on above: Performed By: #### H H #### [facility] [address] [place] [address] [address] Yoselin Rivera Urea nitrogen/Creatinine [Mass ratio] 19.7 mg/mg Normal [facility] Comment on above: Performed By: #### H H #### [facility] [address] [place] [address] Dr. Yoselin Rivera FREE T4on 05-22-2022 Free T4 [Mass/Vol] 1.13 ng/dL Normal 0.76-1.46 [facility] Comment on above: Performed By: #### H H #### [facility] [address] [address] [address] Yoselin Rivera LIPID PROFILEon 05-22-2022 CHOL-HDL RATIO NORM SEE BELOW Normal [facility] Comment on above: Result Comment: 3.3 - 4.4 LOW RISK 4.4 - 7.1 AVERAGE RISK 7.1 - 11.0 MODERATE RISK >11.0 HIGH RISK Performed By: #### T SH, CMP, LIPID #### [facility] [address] [address] [address] Yoselin Rivera Cholesterol [Mass/Vol] 155 mg/dL Normal <=200 [facility] Comment on above: Performed By: #### T GIACOMO CMP, LIPID #### [facility] [address] [address] [address] Yoselin Rivera Cholesterol in HDL [Mass/Vol] 48 mg/dL Normal 40-60 [facility] Comment on above: Performed By: #### T GIACOMO CMP, LIPID #### [facility] [address] [address] [address] Yoselin Rivera Cholesterol in LDL [Mass/Vol] 72.8 mg/dL Normal [facility] Comment on above: Performed By: #### T GIACOMO CMP, LIPID #### [facility] [address] [address] [address] Yoselin Rivera Cholesterol.total/Cho lesterol in HDL [Mass ratio] 3.2 {ratio} Normal [facility] Comment on above: Performed By: #### T GIACOMO, CMP, LIPID #### [facility] [address] [address] [address] Yoselin Rivera HDL NORMAL > or = 60 mg/dl - LO W CARDIOVASCULAR RISK <40 mg/dl - HIGH CARDIOVASCULAR RISK Normal [facility] Comment on above: Performed By: #### T SH, CMP, LIPID #### [facility] [address] [address] [address] Yoselin Rivera LDL CALC NORMAL SEE BELOW Normal [facility] Comment on above: Result Comment: <100 mg/dl OPTIMAL 100 - 129 mg/dl NEAR OR ABOVE OPTIMAL 130 - 159 mg/dl BORDERLINE HIGH 160 - 189 mg/dl HIGH >190 mg/dl VERY HIGH Performed By: #### T SH, CMP, LIPID #### [facility] [address] [place] [address] Dr. Yoselin Rivera Triglyceride [Mass/Vol] 171 mg/dL Critically high <=150 [facility] Comment on above: Performed By: #### T SH, CMP, LIPID #### [facility] [address] [place] [address] Dr. Yoselin Rivera VLDL CALC 34.2 mg/dL Normal [facility] Comment on above: Performed By: #### T GIACOMO, CMP, LIPID #### [facility] [address] [place] [address] Dr. Yoselin Rivera PROF 14(COMP METB)on 022 Albumin [Mass/Vol] 3.6 g/dL Normal 3.4-5.0 [facility] Comment on above: Performed By: #### T GIACOMO CMP, LIPID #### [facility] [address] [place] [address] Dr. Yoselin Rivera Albumin/Globulin [Mass ratio] 1.0 {ratio} Normal [facility] Comment on above: Performed By: #### T GIACOMO CMP, LIPID #### [facility] [address] [place] [address] Dr. Yoselin Rivera ALP [Catalytic activity/Vol] 86 U/L Normal 46-116 [facility] Comment on above: Performed By: #### T GIACOMO, CMP, LIPID #### [facility] [address] [place] [address] Dr. Yoselin Rivera ALT [Catalytic activity/Vol] 30 U/L Normal 16-[address] [facility] Comment on above: Performed By: #### T SH, CMP, LIPID #### [facility] [address] [place] [address] Dr. Yoselin Rivera Anion gap [Moles/Vol] 7.9 mmol/L Normal [facility] Comment on above: Performed By: #### T SH, CMP, LIPID #### [facility] [address] [place] [address] Dr. Yoselin Rivera AST [Catalytic activity/Vol] 19 U/L Normal 15-37 [facility] Comment on above: Performed By: #### T SH, CMP, LIPID #### [facility] [address] [address] [address] Yoselin Rivera Bilirubin [Mass/Vol] 0.5 mg/dL Normal 0.2-1.0 [facility] Comment on above: Performed By: #### T SH, CMP, LIPID #### [facility] [address] [address] [address] Yoselin Rivera Calcium [Mass/Vol] 9.5 mg/dL Normal 8.5-10.1 [facility] Comment on above: Performed By: #### T SH, CMP, LIPID #### [facility] [address] [place] [address] Dr. Yoselin Rivera Chloride [Moles/Vol] 106 mmol/L Normal 98-107 [facility] Comment on above: Performed By: #### T SH, CMP, LIPID #### [facility] [address] [place] [address] Dr. Yoselin Rivera CO2 [Moles/Vol] 34.3 mmol/L Critically high 21.0-32.0 [facility] Comment on above: Performed By: #### T SH, CMP, LIPID #### [facility] [address] [place] [address] Dr. Yoselin Rivera Creatinine [Mass/Vol] 1.49 mg/dL Critically high 0.70-1.30 [facility] Comment on above: Performed By: #### T SH, CMP, LIPID #### [facility] [address] [place] [address] Dr. Yoselin Rivera EGFR-AF SYRIAN 56 mL/min/1.73m2 Critically low >=60 [facility] Comment on above: Performed By: #### T SH, CMP, LIPID #### [facility] [address] [place] [address] Dr. Yoselin Rivera EGFR-NON AF SYRIAN 46 mL/min/1.73m2 Critically low >=[address] [facility] Comment on above: Performed By: #### T SH, CMP, LIPID #### [facility] [address] [address] [address] Yoselin Rivera Globulin (S) [Mass/Vol] 3.7 g/dL Normal [facility] Comment on above: Performed By: #### T SH, CMP, LIPID #### [facility] [address] [address] [address] Yoselin Rivera Glucose [Mass/Vol] 107 mg/dL Critically high 74-106 [facility] Comment on above: Performed By: #### T SH, CMP, LIPID #### [facility] [address] [address] [address] Yoselin Rivera Potassium [Moles/Vol] 4.2 mmol/L Normal 3.5-5.1 [facility] Comment on above: Performed By: #### T SH, CMP, LIPID #### [facility] [address] [place] [address] Dr. Yoselin Rivera Protein [Mass/Vol] 7.3 g/dL Normal 6.4-8.2 [facility] Comment on above: Performed By: #### T SH, CMP, LIPID #### [facility] [address] [address] [address] Yoselin Rivera Sodium [Moles/Vol] 144 mmol/L Normal 136-145 [facility] Comment on above: Performed By: #### T SH, CMP, LIPID #### [facility] [address] [address] [address] Yoselin Rivera Urea nitrogen [Mass/Vol] 31.0 mg/dL Critically high 7.0-18.0 [facility] Comment on above: Performed By: #### T SH, CMP, LIPID #### [facility] [address] [address] [address] Yoselin Rivera Urea nitrogen/Creatinine [Mass ratio] 20.8 mg/mg Normal [facility] Comment on above: Performed By: #### T SH, CMP, LIPID #### [facility] [address] [address] [address] Yoselin Rivera TSHon 05-22-2022 TSH 4.222 uIU/mL Critically high 0.358-3.740 [facility] Comment on above: Performed By: #### T SH, CMP, LIPID #### [facility] [address] [place] [address] Dr. Yoselin Rivera XR CHEST 2 Von [...] by: IGNACIO JACKSON Date: 2022-05-22 08:39 Normal [facility] CBC AUTO DIFFon 04-26-2022 BASO # 0.1 103/ul Normal 0.0-0.1 [facility] Comment on above: Performed By: #### C BC #### [facility] [address] [place] [address] Dr. Yoselin Rivera Basophils/100 WBC (Bld) 0.9 % Normal 0.2-2.0 [facility] Comment on above: Performed By: #### C BC #### [facility] [address] [place] [address] Dr. Yoselin Rivera EO # 0.1 103/ul Normal 0.0-0.7 [facility] Comment on above: Performed By: #### C BC #### [facility] [address] [place] [address] Dr. Yoselin Rivera Eosinophils/100 WBC (Bld) 2.4 % Normal 0.9-7.0 [facility] Comment on above: Performed By: #### C BC #### [facility] [address] [place] [address] Dr. Yoselin Rivera Erythrocyte distribution width (RBC) [Ratio] 14.5 % Normal 11.0-15.0 [facility] Comment on above: Performed By: #### C BC #### [facility] [address] [place] [address] Dr. Yoselin Rivera Hematocrit (Bld) [Volume fraction] 36.4 % Critically low 42.0-54.0 [facility] Comment on above: Performed By: #### C BC #### [facility] [address] [place] [address] Dr. Yoselin Rivera Hemoglobin (Bld) [Mass/Vol] 11.9 g/dL Critically low 14.0-18.0 [facility] Comment on above: Performed By: #### C BC #### [facility] [address] [place] [address] Dr. Yoselin Rivera IG # 0.01 10e3/ul Normal 0.00-0.03 [facility] Comment on above: Performed By: #### C BC #### [facility] [address] [place] [address] Dr. Yoselin Rivera IG % 0.2 % Normal 0.0-0.5 [facility] Comment on above: Performed By: #### C BC #### [facility] [address] [place] [address] Dr. Yoselin Rivera LYMPH # 1.2 103/ul Normal 1.2-3.8 [facility] Comment on above: Performed By: #### C BC #### [facility] [address] [place] [address] Dr. Yoselin Rivera Lymphocytes/100 WBC (Bld) 21.1 % Normal 20.5-60.0 [facility] Comment on above: Performed By: #### C BC #### [facility] [address] [place] [address] Dr. Yoselin Rivera MANUAL DIFF REQ NO Normal [facility] Comment on above: Performed By: #### C BC #### [facility] [address] [place] [address] Dr. Yoselin Rivera MCH (RBC) [Entitic mass] 30.4 pg Normal 25.9-34.0 [facility] Comment on above: Performed By: #### C BC #### [facility] [address] [place] [address] Dr. Yoselin Rivera MCHC (RBC) [Mass/Vol] 32.7 g/dL Normal 29.9-35.2 [facility] Comment on above: Performed By: #### C BC #### [facility] [address] [place] [address] Dr. Yoselin Rivera MCV (RBC) [Entitic vol] 93.1 fL Normal 80.0-94.0 [facility] Comment on above: Performed By: #### C BC #### [facility] [address] [place] [address] Dr. Yoselin Rivera MONO # 0.6 103/ul Normal 0.3-0.8 [facility] Comment on above: Performed By: #### C BC #### [facility] [address] [place] [address] Dr. Yoselin Rivera Monocytes/100 WBC (Bld) 11.6 % Normal 1.7-12.0 [facility] Comment on above: Performed By: #### C BC #### [facility] [address] [place] [address] Dr. Yoselin Rivera NEUT # 3.5 103/ul Normal 1.4-6.5 [facility] Comment on above: Performed By: #### C BC #### [facility] [address] [place] [address] Dr. Yoselin Rivera Neutrophils/100 WBC (Bld) 63.8 % Normal 43.0-75.0 [facility] Comment on above: Performed By: #### C BC #### [facility] [address] [place] [address] Dr. Yoselin Rivera Platelet mean volume (Bld) [Entitic vol] 10.8 fL Normal 9.5-13.[address] [facility] Comment on above: Performed By: #### C BC #### [facility] [address] [place] [address] Dr. Yoselin Rivera PLT 178 103/ul Normal 150-[address] [facility] Comment on above: Performed By: #### C BC #### [facility] [address] [place] [address] Dr. Yoselin Rivera RBC 3.91 106/ul Critically low 4.70-6.10 [facility] Comment on above: Performed By: #### C BC #### [facility] [address] [address] [address] Yoselin Rivera WBC 5.4 103/ul Normal 4.0-11.0 [facility] Comment on above: Performed By: #### C BC #### [facility] [address] [place] [address] Dr. Yoselin Rivera PROF CHEM 8 (BAS METB)on Anion gap [Moles/Vol] 6.6 mmol/L Normal [facility] Comment on above: Performed By: #### B MP #### [facility] [address] [place] [address] Dr. Yoselin Rivera Calcium [Mass/Vol] 9.3 mg/dL Normal 8.5-10.1 [facility] Comment on above: Performed By: #### B MP #### [facility] [address] [place] [address] Dr. Yoselin Rivera Chloride [Moles/Vol] 105 mmol/L Normal 98-107 [facility] Comment on above: Performed By: #### B MP #### [facility] [address] [place] [address] Dr. Yoselin Rivera CO2 [Moles/Vol] 32.8 mmol/L Critically high 21.0-32.0 [facility] Comment on above: Performed By: #### B MP #### [facility] [address] [place] [address] Dr. Yoselin Rivera Creatinine [Mass/Vol] 1.59 mg/dL Critically high 0.70-1.30 [facility] Comment on above: Performed By: #### B MP #### [facility] [address] [place] [address] Dr. Yoselin Rivera EGFR-AF SYRIAN 52 mL/min/1.73m2 Critically low >=60 [facility] Comment on above: Performed By: #### B MP #### [facility] [address] [place] [address] Dr. Yoselin Rivera EGFR-NON AF SYRIAN 43 mL/min/1.73m2 Critically low >=60 [facility] Comment on above: Performed By: #### B MP #### [facility] [address] [address] [address] Yoselin Rivera Glucose [Mass/Vol] 88 mg/dL Normal 74-106 [facility] Comment on above: Performed By: #### B MP #### [facility] [address] [address] [address] Yoselin Rivera Potassium [Moles/Vol] 4.4 mmol/L Normal 3.5-5.1 [facility] Comment on above: Performed By: #### B MP #### [facility] [address] [address] [address] Yoselin Rivera Sodium [Moles/Vol] 140 mmol/L Normal 136-145 [facility] Comment on above: Performed By: #### B MP #### [facility] [address] [address] [address] Yoselin Rivera Urea nitrogen [Mass/Vol] 37.0 mg/dL Critically high 7.0-18.0 [facility] Comment on above: Performed By: #### B MP #### [facility] [address] [address] [address] Yoselin Rivera Urea nitrogen/Creatinine [Mass ratio] 23.3 mg/mg Normal [facility] Comment on above: Performed By: #### B MP #### [facility] [address] [address] [address] Yoselin Rivera BASIC METABOLIC PANELon Calcium [Mass/Vol] 9.5 mg/dL Normal 8.6-10.3 [facility] Comment on above: Order Comment: evalu ate for Effusion Performed By: #### 0 0071 ####[facility] [place] [address], [facility] Chloride [Moles/Vol] 99 mmol/L Normal 98-107 [facility] Comment on above: Order Comment: evalu ate for Effusion Performed By: #### 0 0071 ####[facility] [facility] [place] [address], [facility] CO2 [Moles/Vol] 28 mmol/L Normal 21-31 [facility] Comment on above: Order Comment: evalu ate for Effusion Performed By: #### 0 0071 ####[facility] [facility] [place] [address], [facility] Creatinine [Mass/Vol] 1.51 mg/dL High 0.70-1.30 [facility] Comment on above: Order Comment: evalu ate for Effusion Performed By: #### 0 0071 ####[id number] [place] [address], [facility] EGFR 48 ml/min/1.73sq m Abnormal >60 [facility] Comment on above: Order Comment: evalu ate for Effusion Result Comment: [facility]'s estimated glomerular filtration rate (eGFR) will [...] of individuals. Performed By: #### 0 0071 ####[facility] [place] [address], [facility] Glucose [Mass/Vol] 129 mg/dL High 70-100 [facility] Comment on above: Order Comment: evalu ate for Effusion Performed By: #### 0 0071 ####[facility] [place] [address], [facility] Potassium [Moles/Vol] 3.4 mmol/L Low 3.5-5.1 [facility] Comment on above: Order Comment: evalu ate for Effusion Performed By: #### 0 0071 ####[facility] [facility] [place] [address], [facility] Sodium [Moles/Vol] 138 mmol/L Normal 136-145 [facility] Comment on above: Order Comment: evalu ate for Effusion Performed By: #### 0 0071 ####[facility] [place] [address], [facility] Urea nitrogen [Mass/Vol] 71 mg/dL High 7-25 [facility] Comment on above: Order Comment: evalu ate for Effusion Performed By: #### 0 0071 ####[facility] [facility].[address] POC SARS COV2 ANTIGEN NEGATI VEon 02-28-2022 POC SARS COV2 ANTIGEN NEG Negative Normal NEGATIVE [facility] Comment on above: Result Comment: Nega [...] antigen from SARS-CoV-2 in direct nasopharyngeal swab (LEATHER STITCHER) specimens from individuals who are suspected of [...] Accreditation. Performed By: #### 3 [id number] #### [facility] [address] [place] [address], [facility] BASIC METABOLIC PANELon Calcium [Mass/Vol] 9.4 mg/dL Normal 8.6-10.3 [facility] Comment on above: Order Comment: Check Chest Tube Position, ON ARRIVAL TO CVU Performed By: #### 4 1000, 52845, [id number] ####[facility] [facility] [place] [address], [facility] Chloride [Moles/Vol] 98 mmol/L Normal 98-107 [facility] Comment on above: Order Comment: Check Chest Tube Position, ON ARRIVAL TO CVU Performed By: #### 4 1000, 68649, 04831 ####[facility] [place] [address], [facility] CO2 [Moles/Vol] 28 mmol/L Normal 21-31 [facility] Comment on above: Order Comment: Check Chest Tube Position, ON ARRIVAL TO CVU Performed By: #### 4 1000, , [id number] ####[facility] [facility] [place] [address], [facility] Creatinine [Mass/Vol] 1.63 mg/dL High 0.70-1.30 [facility] Comment on above: Order Comment: Check Chest Tube Position, ON ARRIVAL TO CVU Performed By: #### 4 1000, , 33039 ####[facility] [facility].[address] EGFR 44 ml/min/1.73sq m Abnormal >60 [facility] Comment on above: Order Comment: Check Chest Tube Position, ON ARRIVAL TO CVU Result Comment: [facility]'s estimated glomerular filtration rate (eGFR) will [...] of individuals. Performed By: #### 4 1000, 12966, 35238 ####[facility] [place] [address], [facility] Glucose [Mass/Vol] 118 mg/dL High 70-100 [facility] Comment on above: Order Comment: Check Chest Tube Position, ON ARRIVAL TO CVU Performed By: #### 4 1000, 60355, 83910 ####[facility] [place] [id number], [facility] Potassium [Moles/Vol] 3.6 mmol/L Normal 3.5-5.1 [facility] Comment on above: Order Comment: Check Chest Tube Position, ON ARRIVAL TO CVU Performed By: #### 4 1000, 76460, 76312 ####[facility] [place] [address], [facility] Sodium [Moles/Vol] 137 mmol/L Normal 136-145 [facility] Comment on above: Order Comment: Check Chest Tube Position, ON ARRIVAL TO CVU Performed By: #### 4 1000, 48776, 75659 ####[facility] [facility] [place] [address], [facility] Urea nitrogen [Mass/Vol] 77 mg/dL High 7-25 [facility] Comment on above: Order Comment: Check Chest Tube Position, ON ARRIVAL TO CVU Performed By: #### 4 1000, 12605, 21334 ####[facility] [facility] CBC COMPLETE BLOOD COUNTon 0 02-27-2022 Erythrocyte distribution width (RBC) [Ratio] 14.8 % Normal 11.5-15.0 [facility] Comment on above: Order Comment: No: D o not add to previous draw Performed By: #### 5 0608 #### [facility] [address] [place] [address], [facility] Hematocrit (Bld) [Volume fraction] 30.2 % Low 39.0-50.0 [facility] Comment on above: Order Comment: No: D o not add to previous draw Performed By: #### 5 0608 #### [facility] [address] [place] [address], [facility] Hemoglobin (Bld) [Mass/Vol] 10.2 g/dL Low 13.0-17.0 [facility] Comment on above: Order Comment: No: D o not add to previous draw Performed By: #### 5 0608 #### [facility] [address] [facility] [address] MCH (RBC) [Entitic mass] 30.9 pg Normal 27.0-33.0 [facility] Comment on above: Order Comment: No: D o not add to previous draw Performed By: #### 5 0608 #### [facility] [address] MCHC (RBC) [Mass/Vol] 33.8 g/dL Normal 32.0-35.0 [facility] Comment on above: Order Comment: No: D o not add to previous draw Performed By: #### 5 0608 #### [facility] [address] [place] [address], [facility] MCV (RBC) [Entitic vol] 91.5 fL Normal 82.0-98.0 [facility] Comment on above: Order Comment: No: D o not add to previous draw Performed By: #### 5 0608 #### [facility] [address] [facility]. [address] Nucleated RBC/100 WBC (Bld) [Ratio] 0 % Normal 0-0 [facility] Comment on above: Order Comment: No: D o not add to previous draw Performed By: #### 5 0608 #### [facility] [address] [place] [address], [facility] PLAT CNT 176 10*3/uL Normal 150-400 [facility] Comment on above: Order Comment: No: D o not add to previous draw Performed By: #### 5 0608 #### [facility] [address] [place] [address], [facility] RBC (Bld) [#/Vol] 3.30 10*6/uL Low 4.20-5.70 [facility] Comment on above: Order Comment: No: D o not add to previous draw Performed By: #### 5 0608 #### [facility] [address] [place] [address], [facility] WBC (Bld) [#/Vol] 6.82 10*3/uL Normal 4.00-10.60 [facility] Comment on above: Order Comment: No: D o not add to previous draw Performed By: #### 5 0608 #### [facility] [address] Cardiovascular Lab Reporton 02-27-[address] [facility] Patient Name: [facility] E MR #: [id number] Department of Physician: Nora Saxena M.D. Division of Service Date: 02/27/2022 Cardiology Birthdate: 1945 Adult Cardiovascular Room #: 3AB [id number] [address] Cardiovascular Laboratory Report PROCEDURE: Transesophageal echocardiogram and cardioversion. INDICATION: Atrial fibrillation. FELLOW: Amanda Engel MD. PROCEDURE IN DETAIL: An informed consent was obtained from the patient after explaining the indication, risk and benefits, and alternatives. The patient understood, and agreed, and signed the consent form. The patient was brought to the cathode ray tube assembler and FARHEEN (transesophageal echocardiogram) was performed under [...] Engel MD Date Trans: 02/27/2022 02:37 P/mmo [id number] Normal [facility] MAGNESIUM BLOODon 02-27-2022 Magnesium [Mass/Vol] 2.6 mg/dL Normal 1.9-2.7 [facility] Comment on above: Order Comment: Check Chest Tube Position, ON ARRIVAL TO CVU Performed By: #### 4 1000, 21035, 62055 ####[facility] PHOSPHORUS BLOODon Phosphate [Mass/Vol] 4.7 mg/dL Normal 2.5-5.0 [facility] Comment on above: Order Comment: Check Chest Tube Position, ON ARRIVAL TO CVU Performed By: #### 4 1000, 74390, 44382 ####[place] [id number] [address] PORTABLE CHEST 1 VIEWon PORTABLE CHEST 1 VIEW [facility] Department of Radiology [address] [place] [id number] ======== Patient Name: IGNACIO AMIN : 1945 Sex: M Age: Race: White Pt. Location: [place] [address] Patient Status: I Ordered Date: 02/27/2022 5:00:00 [...] chest. Electronically signed: Mahesh Sanchez. Transcribed by: [email or web address], User Resident: Electronically Signed by: MAHESH SANCHEZ @ 02/27/2022 07:47 AM Normal [facility] Comment on above: Order Comment: Check Chest Tube Position, ON ARRIVAL TO CVU BASIC METABOLIC PANELon Calcium [Mass/Vol] 9.3 mg/dL Normal 8.6-10.3 [facility] Comment on above: Order Comment: Check Chest Tube Position, ON ARRIVAL TO CVU Performed By: #### 0 0071, 91020, 92120 ####[facility] [place] [address], [place] Chloride [Moles/Vol] 98 mmol/L Normal 98-107 [facility] Comment on above: Order Comment: Check Chest Tube Position, ON ARRIVAL TO CVU Performed By: #### 0 0071, 10574, 62310 ####[facility] [place] [address], [place] CO2 [Moles/Vol] 29 mmol/L Normal 21-31 [facility] Comment on above: Order Comment: Check Chest Tube Position, ON ARRIVAL TO CVU Performed By: #### 0 0071, 67702, 78245 ####[facility] [facility] [place] [address], [facility] Creatinine [Mass/Vol] 2.10 mg/dL High 0.70-1.30 [facility] Comment on above: Order Comment: Check Chest Tube Position, ON ARRIVAL TO CVU Performed By: #### 0 0071, 52126, 30410 ####[facility] [place] [address], [facility] EGFR 32 ml/min/1.73sq m Abnormal >60 [facility] Comment on above: Order Comment: Check Chest Tube Position, ON ARRIVAL TO CVU Result Comment: [facility]'s estimated glomerular filtration rate (eGFR) will [...] of individuals. Performed By: #### 0 0071, 49525, 28991 ####[facility] [place] [address], [facility] Glucose [Mass/Vol] 115 mg/dL High 70-100 [facility] Comment on above: Order Comment: Check Chest Tube Position, ON ARRIVAL TO CVU Performed By: #### 0 0071, 93538, 92017 ####[facility] [place] [address], [facility] Potassium [Moles/Vol] 4.7 mmol/L Normal 3.5-5.1 [facility] Comment on above: Order Comment: Check Chest Tube Position, ON ARRIVAL TO CVU Performed By: #### 0 0071, 11035, 92619 ####[facility] [place] [address], [facility] Sodium [Moles/Vol] 137 mmol/L Normal 136-145 [facility] Comment on above: Order Comment: Check Chest Tube Position, ON ARRIVAL TO CVU Performed By: #### 0 0071, 67572, 44342 ####[facility] Urea nitrogen [Mass/Vol] 80 mg/dL High 7-25 [facility] Comment on above: Order Comment: Check Chest Tube Position, ON ARRIVAL TO CVU Performed By: #### 0 0071, 58891, 59215 ####[facility] [facility] CBC COMPLETE BLOOD COUNTon 0 02-26-2022 Erythrocyte distribution width (RBC) [Ratio] 14.8 % Normal 11.5-15.0 [facility] Comment on above: Order Comment: No: D o not add to previous draw Performed By: #### 5 0608 #### [facility] [address] [place] [address], [facility] Hematocrit (Bld) [Volume fraction] 29.0 % Low 39.0-50.0 [facility] Comment on above: Order Comment: No: D o not add to previous draw Performed By: #### 5 0608 #### [facility] [address] [place] [address], [facility] Hemoglobin (Bld) [Mass/Vol] 9.6 g/dL Low 13.0-17.0 [facility] Comment on above: Order Comment: No: D o not add to previous draw Performed By: #### 5 0608 #### [facility] [address] [place] [address], [facility] IMM PLATELET FRAC 6.2 % Normal 0.8-6.3 [facility] Comment on above: Order Comment: No: D o not add to previous draw Performed By: #### 5 0608 #### [facility] [address] [facility] [place] [address], [facility] MCH (RBC) [Entitic mass] 30.4 pg Normal 27.0-33.0 [facility] Comment on above: Order Comment: No: D o not add to previous draw Performed By: #### 5 0608 #### [facility] [address] [facility] [address], [facility] MCHC (RBC) [Mass/Vol] 33.1 g/dL Normal 32.0-35.0 [facility] Comment on above: Order Comment: No: D o not add to previous draw Performed By: #### 5 0608 #### [facility] [address] [facility] [place] [address], [facility] MCV (RBC) [Entitic vol] 91.8 fL Normal 82.0-98.0 [facility] Comment on above: Order Comment: No: D o not add to previous draw Performed By: #### 5 0608 #### [facility] [address] [place] [address], [facility] Nucleated RBC/100 WBC (Bld) [Ratio] 0 % Normal 0-0 [facility] Comment on above: Order Comment: No: D o not add to previous draw Performed By: #### 5 0608 #### [facility] [address] [place] [address], [facility] PLAT CNT 137 10*3/uL Low 150-400 [facility] Comment on above: Order Comment: No: D o not add to previous draw Performed By: #### 5 0608 #### [facility] [address] [place] [address], [facility] RBC (Bld) [#/Vol] 3.16 10*6/uL Low 4.20-5.70 [facility] Comment on above: Order Comment: No: D o not add to previous draw Performed By: #### 5 0608 #### [facility] [address] WBC (Bld) [#/Vol] 7.11 10*3/uL Normal 4.00-10.60 [facility] Comment on above: Order Comment: No: D o not add to previous draw Performed By: #### 5 0608 #### [facility] [address] MAGNESIUM BLOODon 02-26-2022 Magnesium [Mass/Vol] 2.4 mg/dL Normal 1.9-2.7 [facility] Comment on above: Order Comment: Check Chest Tube Position, ON ARRIVAL TO CVU Performed By: #### 0 0071, 11866, 29176 ####[facility] PHOSPHORUS BLOODon Phosphate [Mass/Vol] 5.2 mg/dL High 2.5-5.0 [facility] Comment on above: Order Comment: Check Chest Tube Position, ON ARRIVAL TO CVU Performed By: #### 0 0071, 87593, 48954 ####[facility] PORTABLE CHEST 1 VIEWon PORTABLE CHEST 1 VIEW [facility] Department of Radiology [address] [place] [id number] ======== Patient Name: IGNACIO AMIN : 1945 Sex: M Age: Race: White Pt. Location: [place] [address] Patient Status: I Ordered Date: 02/26/2022 5:00:00 [...] effusions. Electronically signed: Mahesh Sanchez. Transcribed by: [email or web address], User Resident: Electronically Signed by: MAHESH SANCHEZ @ 02/26/2022 02:50 PM Normal [facility] Comment on above: Order Comment: evalu ate for Effusion US RENAL WITH BLADDERon US RENAL WITH BLADDER [facility] Department of Radiology [address] [place] [id number] ======== Patient Name: IGNACIO AMIN : 1945 Sex: M Age: Race: White Pt. Location: [place] [address] Patient Status: I Ordered Date: 02/23/2022 12:10:00 [...] noted. Electronically signed: Dennis Michel. Transcribed by: [email or web address], User Resident: Electronically Signed by: DENNIS MICHEL @ 02/26/2022 09:36 PM Normal [facility] Comment on above: Order Comment: Other BASIC METABOLIC PANELon 09-0 Chloride [Moles/Vol] 97 mmol/L Low 98-107 [facility] Comment on above: Order Comment: Evalu ate for Pneumothorax Performed By: #### 1 0070, 26011, 78805 ####[facility] CO2 [Moles/Vol] 29 mmol/L Normal 21-31 [facility] Comment on above: Order Comment: Evalu ate for Pneumothorax Performed By: #### 1 0070, 09993, 58922 ####[facility] [place] [address], [facility] Creatinine [Mass/Vol] 2.05 mg/dL High 0.70-1.30 [facility] Comment on above: Order Comment: Evalu ate for Pneumothorax Performed By: #### 1 0070, 66943, 96999 ####[facility] [facility] [place] [address], [facility] EGFR 33 ml/min/1.73sq m Abnormal >60 [facility] Comment on above: Order Comment: Evalu ate for Pneumothorax Result Comment: [facility]'s estimated glomerular filtration rate (eGFR) will [...] of individuals. Performed By: #### 1 0070, 96209, 73583 ####[facility] [facility] [place] [address], [facility] Glucose [Mass/Vol] 131 mg/dL High 70-100 [facility] Comment on above: Order Comment: Evalu ate for Pneumothorax Performed By: #### 1 0070, 47145, 52354 ####[facility] [facility] [place] [address], [facility] Potassium [Moles/Vol] 3.5 mmol/L Normal 3.5-5.1 [facility] Comment on above: Order Comment: Evalu ate for Pneumothorax Performed By: #### 1 0070, 40042, 88196 ####[facility] [place] [address], [place] Sodium [Moles/Vol] 137 mmol/L Normal 136-145 [facility] Comment on above: Order Comment: Evalu ate for Pneumothorax Performed By: #### 1 0070, 21737, 60788 ####[facility] [place] [address], [place] Urea nitrogen [Mass/Vol] 75 mg/dL High 7-25 [facility] Comment on above: Order Comment: Evalu ate for Pneumothorax Performed By: #### 1 0, 55583, 90592 ####[facility] [place] [address], [place] Calcium [Mass/Vol] 9.0 mg/dL Normal 8.6-10.3 [facility] Comment on above: Order Comment: Evalu ate for Pneumothorax Performed By: #### 1 0, 68110, 17619 ####[facility] [place] [address], [place] Order Comment: Check Chest Tube Position, ON ARRIVAL TO CVU Performed By: #### 4 1000, , 70485 ####[facility] [place] [address], [place] Chloride [Moles/Vol] 96 mmol/L Low 98-107 [facility] Comment on above: Order Comment: Check Chest Tube Position, ON ARRIVAL TO CVU Performed By: #### 4 1000, , 75926 ####[facility] [place] [address], [place] CO2 [Moles/Vol] 27 mmol/L Normal 21-31 [facility] Comment on above: Order Comment: Check Chest Tube Position, ON ARRIVAL TO CVU Performed By: #### 4 1000, , 73938 ####[facility] [place] [address], [place] Creatinine [Mass/Vol] 2.09 mg/dL High 0.70-1.30 [facility] Comment on above: Order Comment: Check Chest Tube Position, ON ARRIVAL TO CVU Performed By: #### 4 1000, 80547, 00360 ####[facility] EGFR 32 ml/min/1.73sq m Abnormal >60 [facility] Comment on above: Order Comment: Check Chest Tube Position, ON ARRIVAL TO CVU Result Comment: [facility]'s estimated glomerular filtration rate (eGFR) will [...] of individuals. Performed By: #### 4 1000, 22650, 77256 ####[facility] [place] [address], [facility] Glucose [Mass/Vol] 120 mg/dL High 70-100 [facility] Comment on above: Order Comment: Check Chest Tube Position, ON ARRIVAL TO CVU Performed By: #### 4 1000, , 39902 ####[facility] [facility] [place] [address], [facility] Potassium [Moles/Vol] 3.7 mmol/L Normal 3.5-5.1 [facility] Comment on above: Order Comment: Check Chest Tube Position, ON ARRIVAL TO CVU Performed By: #### 4 1000, , 57749 ####[facility] [place] [address], [facility] Sodium [Moles/Vol] 135 mmol/L Low 136-145 [facility] Comment on above: Order Comment: Check Chest Tube Position, ON ARRIVAL TO CVU Performed By: #### 4 1000, , 54555 ####[facility] [place] [address], [place] Urea nitrogen [Mass/Vol] 67 mg/dL High 7-25 [facility] Comment on above: Order Comment: Check Chest Tube Position, ON ARRIVAL TO CVU Performed By: #### 4 1000, 09304, 71959 ####[facility] [place] [address], [place] Calcium [Mass/Vol] 9.2 mg/dL Normal 8.6-10.3 [facility] Comment on above: Order Comment: No: D o not add to previous draw Criteria for reflexing a culture was not met. Please call the lab at [phone] within 24 hours of collection time if culture is needed Performed By: #### 3 0965 #### [facility] [address] [place] [address], [place] Chloride [Moles/Vol] 96 mmol/L Low 98-107 [facility] Comment on above: Order Comment: No: D o not add to previous draw Criteria for reflexing a culture was not met. Please call the lab at [phone] within 24 hours of collection time if culture is needed Performed By: #### 3 0965 #### [facility] [address] [place] [address], [place] CO2 [Moles/Vol] 27 mmol/L Normal 21-31 [facility] Comment on above: Order Comment: No: D o not add to previous draw Criteria for reflexing a culture was not met. Please call the lab at [phone] within 24 hours of collection time if culture is needed Performed By: #### 3 0965 #### [facility] [address] [place] [address], [place] Creatinine [Mass/Vol] 2.13 mg/dL High 0.70-1.30 [facility] Comment on above: Order Comment: No: D o not add to previous draw Criteria for reflexing a culture was not met. Please call the lab at [phone] within 24 hours of collection time if culture is needed Performed By: #### 3 0965 #### [facility] [address] [place] [address], [facility] EGFR 32 ml/min/1.73sq m Abnormal >60 [facility] Comment on above: Order Comment: No: D o not add to previous draw Criteria for reflexing a culture was not met. Please call the lab at [phone] within 24 hours of collection time if culture is needed Result Comment: [facility]'s estimated glomerular filtration rate (eGFR) will [...] individuals. Performed By: #### 3 0965 #### [facility] [address] [facility]. [place] [id number], [facility] Glucose [Mass/Vol] 96 mg/dL Normal 70-100 [facility] Comment on above: Order Comment: No: D o not add to previous draw Criteria for reflexing a culture was not met. Please call the lab at [phone] within 24 hours of collection time if culture is needed Performed By: #### 3 0965 #### [facility] [address] [facility] [place] [address], [facility] Potassium [Moles/Vol] 3.9 mmol/L Normal 3.5-5.1 [facility] Comment on above: Order Comment: No: D o not add to previous draw Criteria for reflexing a culture was not met. Please call the lab at [phone] within 24 hours of collection time if culture is needed Performed By: #### 3 0965 #### [facility] [address] [place] [address], [place] Sodium [Moles/Vol] 134 mmol/L Low 136-145 [facility] Comment on above: Order Comment: No: D o not add to previous draw Criteria for reflexing a culture was not met. Please call the lab at [phone] within 24 hours of collection time if culture is needed Performed By: #### 3 0965 #### [facility] [address] [facility]. [address] Urea nitrogen [Mass/Vol] 67 mg/dL High 7-25 [facility] Comment on above: Order Comment: No: D o not add to previous draw Criteria for reflexing a culture was not met. Please call the lab at [phone] within 24 hours of collection time if culture is needed Performed By: #### 3 0965 #### [facility] [address] CBC COMPLETE BLOOD COUNTon 0 02-25-2022 Erythrocyte distribution width (RBC) [Ratio] 14.7 % Normal 11.5-15.0 [facility] Comment on above: Order Comment: Check Chest Tube Position, ON ARRIVAL TO CVU Performed By: #### 5 0608 ####[facility] Hematocrit (Bld) [Volume fraction] 28.2 % Low 39.0-50.0 [facility] Comment on above: Order Comment: Check Chest Tube Position, ON ARRIVAL TO CVU Performed By: #### 5 0608 ####[facility] Hemoglobin (Bld) [Mass/Vol] 9.7 g/dL Low 13.0-17.0 [facility] Comment on above: Order Comment: Check Chest Tube Position, ON ARRIVAL TO CVU Performed By: #### 5 0608 ####[facility] [place] [address], [facility] IMM PLATELET FRAC 8.0 % High 0.8-6.3 [facility] Comment on above: Order Comment: Check Chest Tube Position, ON ARRIVAL TO CVU Performed By: #### 5 0608 ####[facility] MCH (RBC) [Entitic mass] 31.2 pg Normal 27.0-33.0 [facility] Comment on above: Order Comment: Check Chest Tube Position, ON ARRIVAL TO CVU Performed By: #### 5 0608 ####[address] MCHC (RBC) [Mass/Vol] 34.4 g/dL Normal 32.0-35.0 [facility] Comment on above: Order Comment: Check Chest Tube Position, ON ARRIVAL TO CVU Performed By: #### 5 0608 ####[address] MCV (RBC) [Entitic vol] 90.7 fL Normal 82.0-98.0 [facility] Comment on above: Order Comment: Check Chest Tube Position, ON ARRIVAL TO CVU Performed By: #### 5 0608 ####[address] Nucleated RBC/100 WBC (Bld) [Ratio] 0 % Normal 0-0 [facility] Comment on above: Order Comment: Check Chest Tube Position, ON ARRIVAL TO CVU Performed By: #### 5 0608 ####[address] PLAT CNT 111 10*3/uL Low 150-400 [facility] Comment on above: Order Comment: Check Chest Tube Position, ON ARRIVAL TO CVU Performed By: #### 5 0608 ####[address] RBC (Bld) [#/Vol] 3.11 10*6/uL Low 4.20-5.70 [facility] Comment on above: Order Comment: Check Chest Tube Position, ON ARRIVAL TO CVU Performed By: #### 5 0608 ####[address] [place] [address], [facility] WBC (Bld) [#/Vol] 6.70 10*3/uL Normal 4.00-10.60 [facility] Comment on above: Order Comment: Check Chest Tube Position, ON ARRIVAL TO CVU Performed By: #### 5 0608 ####[facility] [place] [address], [facility] MAGNESIUM BLOODon 02-25-2022 Magnesium [Mass/Vol] 2.3 mg/dL Normal 1.9-2.7 [facility] Comment on above: Order Comment: Evalu ate for Pneumothorax Performed By: #### 1 0070, 37265, 56627 ####[facility] [facility] [place] [address], [facility] Magnesium [Mass/Vol] 2.4 mg/dL Normal 1.9-2.7 [facility] Comment on above: Order Comment: Check Chest Tube Position, ON ARRIVAL TO CVU Performed By: #### 4 1000, 55374, 81272 ####[facility] [facility] [place] [address], [place] Magnesium [Mass/Vol] 2.5 mg/dL Normal 1.9-2.7 [facility] Comment on above: Order Comment: No: D o not add to previous draw Criteria for reflexing a culture was not met. Please call the lab at [phone] within 24 hours of collection time if culture is needed Performed By: #### 3 4803 #### [facility] [address] [place] [address], [place] PHOSPHORUS BLOODon Phosphate [Mass/Vol] 5.1 mg/dL High 2.5-5.0 [facility] Comment on above: Order Comment: Evalu ate for Pneumothorax Performed By: #### 1 0070, 42828, 17321 ####[facility] [place] [address], [place] Phosphate [Mass/Vol] 4.9 mg/dL Normal 2.5-5.0 [facility] Comment on above: Order Comment: Check Chest Tube Position, ON ARRIVAL TO CVU Performed By: #### 4 1000, 44410, 20481 ####[facility] [address] Phosphate [Mass/Vol] 4.9 mg/dL Normal 2.5-5.0 [facility] Comment on above: Order Comment: No: D o not add to previous draw Criteria for reflexing a culture was not met. Please call the lab at [phone] within 24 hours of collection time if culture is needed Performed By: #### 3 0965 #### [facility] [address] PORTABLE CHEST 1 VIEWon PORTABLE CHEST 1 VIEW [facility] Department of Radiology [address] [place] [address] ======== Patient Name: IGNACIO AMIN : 1945 Sex: M Age: Race: White Pt. Location: [place] [address] Patient Status: I Ordered Date: 02/25/2022 7:00:00 [...] chest. Electronically signed: Mahesh Sanchez. Transcribed by: [email or web address], User Resident: Electronically Signed by: MAHESH SANCHEZ @ 02/25/2022 08:33 AM Normal [facility] Comment on above: Order Comment: Evalu ate for Pneumothorax ARTERIAL BLOOD GAS W/COOXon 02-24-2022 BASE EXCESS -1 mmol/L Normal -2-3 [facility] Comment on above: Performed By: #### 3 0739 #### [facility] [address] BILEVEL 12 Normal [facility] Comment on above: Performed By: #### 3 0739 #### [facility] [address] [facility] [address] COHB 1.0 % Normal 0.0-1.5 [facility] Comment on above: Performed By: #### 3 0739 #### [facility] [address] DELIVERY SYSTEMS BI-PAP Normal [facility] Comment on above: Performed By: #### 3 0739 #### [facility] [address] [place] [address], [facility] FIO2 50 % Normal [facility] Comment on above: Performed By: #### 3 0739 #### [facility] [address] [place] [address], [facility] HCO3 (Bld) [Moles/Vol] 24 mmol/L Normal 21-28 [facility] Comment on above: Performed By: #### 3 0739 #### [facility] [address] [place] [address], [facility] METHB 0.9 % Normal 0.0-1.5 [facility] Comment on above: Performed By: #### 3 0739 #### [facility] [address] [place] [address], [facility] MIN VOLUME 9.8 Normal [facility] Comment on above: Performed By: #### 3 0739 #### [facility] [address] [place] [address], [facility] MODALITY SPONTANEOUS/TIMED Normal [facility] Comment on above: Performed By: #### 3 0739 #### [facility] [address] [place] [address], [facility] Oxygen (Bld) [Partial pressure] 104 mm[Hg] Normal 83-108 [facility] Comment on above: Performed By: #### 3 0739 #### [facility] [address] [place] [address], [facility] Oxygen saturation in Blood 97.1 % High 94.0-97.0 [facility] Comment on above: Performed By: #### 3 0739 #### [facility] [address] [place] [address], [facility] PCO2 39 mmHg Normal 35-45 [facility] Comment on above: Performed By: #### 3 0739 #### [facility] [address] [place] [address], [place] PEEP 6.0 CMH20 Normal [facility] Comment on above: Performed By: #### 3 0739 #### [facility] [address] [place] [address], [facility] pH (Bld) 7.39 [pH] Normal 7.35-7.45 [facility] Comment on above: Performed By: #### 3 0739 #### [facility] [address] [place] [address], [place] Respiratory rate 14 /min Normal [facility] Comment on above: Performed By: #### 3 0739 #### [facility] [address] [place] [address], [place] THB 10.1 g/dL Low 12.0-16.3 [facility] Comment on above: Performed By: #### 3 0739 #### [facility] [address] [place] [address], [place] BASIC METABOLIC PANELon 09-0 -2021 Calcium [Mass/Vol] 8.8 mg/dL Normal 8.6-10.3 [facility] Comment on above: Order Comment: No: D o not add to previous draw Performed By: #### 3 0739 #### [facility] [address] [place] [address], [place] Chloride [Moles/Vol] 96 mmol/L Low 98-107 [facility] Comment on above: Order Comment: No: D o not add to previous draw Performed By: #### 3 0739 #### [facility] [address] [place] [address], [place] CO2 [Moles/Vol] 22 mmol/L Normal 21-31 [facility] Comment on above: Order Comment: No: D o not add to previous draw Performed By: #### 3 0739 #### [facility] [address] [place] [address], [place] Creatinine [Mass/Vol] 2.04 mg/dL High 0.70-1.30 [facility] Comment on above: Order Comment: No: D o not add to previous draw Performed By: #### 3 0739 #### [facility] [address] [place] [address], [place] EGFR 33 ml/min/1.73sq m Abnormal >60 [facility] Comment on above: Order Comment: No: D o not add to previous draw Result Comment: [facility]'s estimated glomerular filtration rate (eGFR) will [...] individuals. Performed By: #### 3 0739 #### [facility] [address] [place] [address], [place] Glucose [Mass/Vol] 204 mg/dL High 70-100 [facility] Comment on above: Order Comment: No: D o not add to previous draw Performed By: #### 3 0739 #### [facility] [address] [place] [address], [place] Potassium [Moles/Vol] 3.6 mmol/L Normal 3.5-5.1 [facility] Comment on above: Order Comment: No: D o not add to previous draw Performed By: #### 3 0739 #### [facility] [address] [place] [address], [place] Sodium [Moles/Vol] 131 mmol/L Low 136-145 [facility] Comment on above: Order Comment: No: D o not add to previous draw Performed By: #### 3 0739 #### [facility] [address] [place] [address], [place] Urea nitrogen [Mass/Vol] 66 mg/dL High 7-25 [facility] Comment on above: Order Comment: No: D o not add to previous draw Performed By: #### 3 0739 #### [facility] [address] [place] [address], [place] Calcium [Mass/Vol] 8.9 mg/dL Normal 8.6-10.3 [facility] Comment on above: Order Comment: evalu ate for Effusion Performed By: #### 4 1000, 45606, 23530 ####[facility] [place] [address], [facility] Chloride [Moles/Vol] 100 mmol/L Normal 98-107 [facility] Comment on above: Order Comment: evalu ate for Effusion Performed By: #### 4 1000, 25689, 69529 ####[facility] [place] [address], [place] CO2 [Moles/Vol] 22 mmol/L Normal 21-31 [facility] Comment on above: Order Comment: evalu ate for Effusion Performed By: #### 4 1000, 79876, 35936 ####[facility] [place] [address], [place] Creatinine [Mass/Vol] 2.14 mg/dL High 0.70-1.30 [facility] Comment on above: Order Comment: evalu ate for Effusion Performed By: #### 4 1000, 98933, 19357 ####[facility] [place] [address], [facility] EGFR 31 ml/min/1.73sq m Abnormal >60 [facility] Comment on above: Order Comment: evalu ate for Effusion Result Comment: [facility]'s estimated glomerular filtration rate (eGFR) will [...] of individuals. Performed By: #### 4 1000, 52063, 50863 ####[facility] [place] [address], [place] Glucose [Mass/Vol] 111 mg/dL High 70-100 [facility] Comment on above: Order Comment: evalu ate for Effusion Performed By: #### 4 1000, 14001, 00002 ####[facility] [place] [address], [place] Potassium [Moles/Vol] 3.8 mmol/L Normal 3.5-5.1 [facility] Comment on above: Order Comment: evalu ate for Effusion Performed By: #### 4 1000, 03815, 66169 ####[facility] [place] [address], [facility] Sodium [Moles/Vol] 134 mmol/L Low 136-145 [facility] Comment on above: Order Comment: evalu ate for Effusion Performed By: #### 4 1000, 48189, 97997 ####[facility] [address], [facility] Urea nitrogen [Mass/Vol] 60 mg/dL High 7-25 [facility] Comment on above: Order Comment: evalu ate for Effusion Performed By: #### 4 1000, 99899, 69454 ####[facility] [facility] [place] [address], [facility] CBC COMPLETE BLOOD COUNTon 0 - Erythrocyte distribution width (RBC) [Ratio] 14.7 % Normal 11.5-15.0 [facility] Comment on above: Order Comment: No: D o not add to previous draw Performed By: #### 5 0608 #### [facility] [address] [place] [address], [place] Hematocrit (Bld) [Volume fraction] 28.6 % Low 39.0-50.0 [facility] Comment on above: Order Comment: No: D o not add to previous draw Performed By: #### 5 0608 #### [facility] [address] [place] [id number], [place] Hemoglobin (Bld) [Mass/Vol] 9.5 g/dL Low 13.0-17.0 [facility] Comment on above: Order Comment: No: D o not add to previous draw Performed By: #### 5 0608 #### [facility] [address] [place] [address], [facility] IMM PLATELET FRAC 9.2 % High 0.8-6.3 [facility] Comment on above: Order Comment: No: D o not add to previous draw Performed By: #### 5 0608 #### [facility] [address] [facility] [place] [address], [facility] MCH (RBC) [Entitic mass] 30.4 pg Normal 27.0-33.0 [facility] Comment on above: Order Comment: No: D o not add to previous draw Performed By: #### 5 0608 #### [facility] [address] [facility] [place] [address], [facility] MCHC (RBC) [Mass/Vol] 33.2 g/dL Normal 32.0-35.0 [facility] Comment on above: Order Comment: No: D o not add to previous draw Performed By: #### 5 0608 #### [facility] [address] [place] [address], [facility] MCV (RBC) [Entitic vol] 91.4 fL Normal 82.0-98.0 [facility] Comment on above: Order Comment: No: D o not add to previous draw Performed By: #### 5 0608 #### [facility] [address] [place] [address], [facility] Nucleated RBC/100 WBC (Bld) [Ratio] 0 % Normal 0-0 [facility] Comment on above: Order Comment: No: D o not add to previous draw Performed By: #### 5 0608 #### [facility] [address] [place] [id number], [facility] PLAT CNT 80 10*3/uL Low 150-400 [facility] Comment on above: Order Comment: No: D o not add to previous draw Performed By: #### 5 0608 #### [facility] [address] [place] [address], [place] RBC (Bld) [#/Vol] 3.13 10*6/uL Low 4.20-5.70 [facility] Comment on above: Order Comment: No: D o not add to previous draw Performed By: #### 5 0608 #### [facility] [address] [place] [address], [place] WBC (Bld) [#/Vol] 5.80 10*3/uL Normal 4.00-10.60 [facility] Comment on above: Order Comment: No: D o not add to previous draw Performed By: #### 5 0608 #### [facility] [address] [place] [address], [place] MAGNESIUM BLOODon 02-24-2022 Magnesium [Mass/Vol] 2.4 mg/dL Normal 1.9-2.7 [facility] Comment on above: Performed By: #### 3 0739 #### [facility] [address] [place] [address], [place] Magnesium [Mass/Vol] 2.4 mg/dL Normal 1.9-2.7 [facility] Comment on above: Order Comment: evalu ate for Effusion Performed By: #### 4 1000, 36622, 63187 ####[facility] [place] [address], [place] PHOSPHORUS BLOODon Phosphate [Mass/Vol] 4.6 mg/dL Normal 2.5-5.0 [facility] Comment on above: Performed By: #### 3 0739 #### [facility] [address] [place] [address], [place] Phosphate [Mass/Vol] 5.0 mg/dL Normal 2.5-5.0 [facility] Comment on above: Order Comment: evalu ate for Effusion Performed By: #### 4 1000, 49649, 93895 ####[facility] PORTABLE CHEST 1 VIEWon PORTABLE CHEST 1 VIEW [facility] Department of Radiology [address] [place] [address] ======== Patient Name: IGNACIO AMIN : 1945 Sex: M Age: Race: White Pt. Location: [place] [address] Patient Status: I Ordered Date: 02/24/2022 3:00:00 [...] pneumothorax. Electronically signed: Mahesh Sanchez. Transcribed by: [email or web address], User Resident: Electronically Signed by: MAHESH SANCHEZ @ 02/24/2022 04:[address] [facility] Comment on above: Order Comment: evalu ate for Pneumothorax PORTABLE CHEST 1 VIEW [facility] Department of Radiology [address] [place] [id number] ======== Patient Name: IGNACIO AMIN : 1945 Sex: M Age: Race: White Pt. Location: [place] [address] Patient Status: I Ordered Date: 02/24/2022 5:00:00 [...] chest. Electronically signed: Mahesh Sanchez. Transcribed by: [email or web address], User Resident: Electronically Signed by: MAHESH SANCHEZ @ 02/24/2022 08:35 AM Normal [facility] Comment on above: Order Comment: Check Chest Tube Position, ON ARRIVAL TO CVU ALBUMIN BLOODon 02-23-2022 Albumin [Mass/Vol] 4.0 g/dL Normal 3.5-5.7 [facility] Comment on above: Performed By: #### 3 0965 #### [facility] [address] [place] [address], [facility] ARTERIAL BLOOD GAS W/COOXon 02-23-2022 BASE EXCESS -6 mmol/L Low -2-3 [facility] Comment on above: Performed By: #### 3 0739 #### [facility] [address] [place] [address], [facility] COHB 1.1 % Normal 0.0-1.5 [facility] Comment on above: Performed By: #### 3 0739 #### [facility] [address] [place] [address], [facility] [employer] BIPAP Normal [facility] Comment on above: Performed By: #### 3 0739 #### [facility] [address] [place] [address], [place] FIO2 50 % Normal [facility] Comment on above: Performed By: #### 3 0739 #### [facility] [address] [place] [address], [place] HCO3 (Bld) [Moles/Vol] 20 mmol/L Low 21-28 [facility] Comment on above: Performed By: #### 3 0739 #### [facility] [address] [place] [address], [place] METHB 0.7 % Normal 0.0-1.5 [facility] Comment on above: Performed By: #### 3 0739 #### [facility] [address] [place] [address], [place] MODALITY BIPAP Normal [facility] Comment on above: Performed By: #### 3 0739 #### [facility] [address] [place] [address], [facility] Oxygen (Bld) [Partial pressure] 134 mm[Hg] Critically high 83-108 [facility] Comment on above: Performed By: #### 3 0739 #### [facility] [address] [place] [address], [place] Oxygen saturation in Blood 97.7 % High 94.0-97.0 [facility] Comment on above: Performed By: #### 3 0739 #### [facility] [address] [place] [address], [place] PCO2 37 mmHg Normal 35-45 [facility] Comment on above: Performed By: #### 3 0739 #### [facility] [address] [place] [address], [place] PEEP 6.0 CMH20 Normal [facility] Comment on above: Performed By: #### 3 0739 #### [facility] [address] [place] [address], [facility] pH (Bld) 7.33 [pH] Low 7.35-7.45 [facility] Comment on above: Performed By: #### 3 0739 #### [facility] [address] [place] [address], [facility] PRESSURE SUPPORT 12 Normal [facility] Comment on above: Performed By: #### 3 0739 #### [facility] [address] [place] [address], [place] THB 10.2 g/dL Low 12.0-16.3 [facility] Comment on above: Performed By: #### 3 0739 #### [facility] [address] [place] [address], [place] BASIC METABOLIC PANELon 09-0 -2021 Calcium [Mass/Vol] 9.2 mg/dL Normal 8.6-10.3 [facility] Comment on above: Order Comment: evalu ate for Effusion Performed By: #### 0 0071, 71972, 22287, 01208 ####[facility] [place] [address], [facility] Chloride [Moles/Vol] 102 mmol/L Normal 98-107 [facility] Comment on above: Order Comment: evalu ate for Effusion Performed By: #### 0 0071, 59100, 96733, 50987 ####[facility] [place] [address], [facility] CO2 [Moles/Vol] 19 mmol/L Low 21-31 [facility] Comment on above: Order Comment: evalu ate for Effusion Performed By: #### 0 0071, 04025, 90833, 11467 ####[facility] [place] [address], [facility] Creatinine [Mass/Vol] 2.06 mg/dL High 0.70-1.30 [facility] Comment on above: Order Comment: evalu ate for Effusion Performed By: #### 0 0071, 06637, 87711, 73735 ####[facility] [facility] [place] [address], [facility] EGFR 33 ml/min/1.73sq m Abnormal >60 [facility] Comment on above: Order Comment: evalu ate for Effusion Result Comment: [facility]'s estimated glomerular filtration rate (eGFR) will [...] of individuals. Performed By: #### 0 0071, 41200, 26116, 18237 ####[facility] [place] [address], [facility] Glucose [Mass/Vol] 140 mg/dL High 70-100 [facility] Comment on above: Order Comment: evalu ate for Effusion Performed By: #### 0 0071, 13144, 40157, 82842 ####[facility] [place] [address], [facility] Potassium [Moles/Vol] 4.4 mmol/L Normal 3.5-5.1 [facility] Comment on above: Order Comment: evalu ate for Effusion Performed By: #### 0 0071, 51094, 68492, 43792 ####[facility] [place] [address], [facility] Sodium [Moles/Vol] 132 mmol/L Low 136-145 [facility] Comment on above: Order Comment: evalu ate for Effusion Performed By: #### 0 0071, 62914, 75268, 29408 ####[facility] [place] [address], [facility] Urea nitrogen [Mass/Vol] 50 mg/dL High 7-25 [facility] Comment on above: Order Comment: evalu ate for Effusion Performed By: #### 0 0071, 99352, 70877, 13262 ####[facility] CBC COMPLETE BLOOD COUNTon 0 02-23-2022 Erythrocyte distribution width (RBC) [Ratio] 14.9 % Normal 11.5-15.0 [facility] Comment on above: Order Comment: Check Chest Tube Position, ON ARRIVAL TO CVU Performed By: #### 5 0608 ####[facility] [place] [address], [facility] Hematocrit (Bld) [Volume fraction] 30.5 % Low 39.0-50.0 [facility] Comment on above: Order Comment: Check Chest Tube Position, ON ARRIVAL TO CVU Performed By: #### 5 0608 ####[facility] Hemoglobin (Bld) [Mass/Vol] 10.3 g/dL Low 13.0-17.0 [facility] Comment on above: Order Comment: Check Chest Tube Position, ON ARRIVAL TO CVU Performed By: #### 5 0608 ####[facility] IMM PLATELET FRAC 10.6 % High 0.8-6.3 [facility] Comment on above: Order Comment: Check Chest Tube Position, ON ARRIVAL TO CVU Performed By: #### 5 0608 ####[address] MCH (RBC) [Entitic mass] 31.3 pg Normal 27.0-33.0 [facility] Comment on above: Order Comment: Check Chest Tube Position, ON ARRIVAL TO CVU Performed By: #### 5 0608 ####[facility] MCHC (RBC) [Mass/Vol] 33.8 g/dL Normal 32.0-35.0 [facility] Comment on above: Order Comment: Check Chest Tube Position, ON ARRIVAL TO CVU Performed By: #### 5 0608 ####[address] MCV (RBC) [Entitic vol] 92.7 fL Normal 82.0-98.0 [facility] Comment on above: Order Comment: Check Chest Tube Position, ON ARRIVAL TO CVU Performed By: #### 5 0608 ####[address] Nucleated RBC/100 WBC (Bld) [Ratio] 0 % Normal 0-0 [facility] Comment on above: Order Comment: Check Chest Tube Position, ON ARRIVAL TO CVU Performed By: #### 5 0608 ####[address] [address], [facility] PLAT CNT 71 10*3/uL Low 150-400 [facility] Comment on above: Order Comment: Check Chest Tube Position, ON ARRIVAL TO CVU Performed By: #### 5 0608 ####[facility] [address], [facility] RBC (Bld) [#/Vol] 3.29 10*6/uL Low 4.20-5.70 [facility] Comment on above: Order Comment: Check Chest Tube Position, ON ARRIVAL TO CVU Performed By: #### 5 0608 ####[facility] [facility] [place] [address], [facility] WBC (Bld) [#/Vol] 8.45 10*3/uL Normal 4.00-10.60 [facility] Comment on above: Order Comment: Check Chest Tube Position, ON ARRIVAL TO CVU Performed By: #### 5 0608 ####[facility] [facility] [place] [address], [facility] MAGNESIUM BLOODon 02-23-2022 Magnesium [Mass/Vol] 2.6 mg/dL Normal 1.9-2.7 [facility] Comment on above: Performed By: #### 3 0965 #### [facility] [address] [place] [address], [facility] PHOSPHORUS BLOODon 2 Phosphate [Mass/Vol] 5.4 mg/dL High 2.5-5.0 [facility] Comment on above: Performed By: #### 3 0965 #### [facility] [address] [place] [address], [facility] POC GLUCOSE LABon 02-23-2022 Glucose [Mass/Vol] 144 mg/dL High 70-100 [facility] Comment on above: Performed By: #### 3 1595 #### [facility] [address] [place] [address], [facility] PORTABLE CHEST 1 VIEWon PORTABLE CHEST 1 VIEW [facility] Department of Radiology [address] [place] [id number] ======== Patient Name: IGNACIO AMIN : 1945 Sex: M Age: Race: White Pt. Location: [place] [address] Patient Status: I Ordered Date: 02/23/2022 5:00:00 [...] disease Electronically signed: Aurora Valentino. Transcribed by: [email or web address], User Resident: Electronically Signed by: AURORA VALENTINO @ 02/23/2022 08:18 AM Normal [facility] Comment on above: Order Comment: evalu ate for Effusion Pulmonary Functionon 022 Pulmonary Function MR #: [id number] [facility] PT. Name: Ignacio Amni Date: 02/15/2022 Date of : 1945 Patient [...] P/Dorothea Le M.D. Date Trans: 02/23/2022 07:06 A/anirudh [id number] Normal [facility] ARTERIAL BLOOD GAS W/COOXon 02-22-2022 BASE EXCESS -7 mmol/L Low -2-3 [facility] Comment on above: Performed By: #### 3 4139 #### [facility] [address] [place] [address], [facility] COHB 1.4 % Normal 0.0-1.5 [facility] Comment on above: Performed By: #### 3 8439 #### [facility] [address] [place] [address], [facility] [employer] [place] Normal [facility] Comment on above: Performed By: #### 3 0739 #### [facility] [address] [place] [address], [facility] HCO3 (Bld) [Moles/Vol] 19 mmol/L Low 21-28 [facility] Comment on above: Performed By: #### 3 0739 #### [facility] [address] [place] [address], [facility] LPM 4.0 LPM Normal [facility] Comment on above: Performed By: #### 3 0739 #### [facility] [address] [place] [address], [facility] METHB 0.4 % Normal 0.0-1.5 [facility] Comment on above: Performed By: #### 3 0739 #### [facility] [address] [place] [address], [facility] Oxygen (Bld) [Partial pressure] 68 mm[Hg] Low 83-108 [facility] Comment on above: Performed By: #### 3 0739 #### [facility] [address] [place] [address], [facility] Oxygen saturation in Blood 93.8 % Low 94.0-97.0 [facility] Comment on above: Performed By: #### 3 0739 #### [facility] [address] [place] [address], [facility] PCO2 35 mmHg Normal 35-45 [facility] Comment on above: Performed By: #### 3 0739 #### [facility] [address] [place] [address], [facility] pH (Bld) 7.33 [pH] Low 7.35-7.45 [facility] Comment on above: Performed By: #### 3 0739 #### [facility] [address] [place] [address], [facility] THB 11.0 g/dL Low 12.0-16.3 [facility] Comment on above: Performed By: #### 3 0739 #### [facility] [address] [place] [address], [facility] BASIC METABOLIC PANELon 09-0 Chloride [Moles/Vol] 104 mmol/L Normal 98-107 [facility] Comment on above: Order Comment: Check Chest Tube Position, ON ARRIVAL TO CVU Performed By: #### 0 0071 ####[facility] [place] [address], [facility] CO2 [Moles/Vol] 20 mmol/L Low 21-31 [facility] Comment on above: Order Comment: Check Chest Tube Position, ON ARRIVAL TO CVU Performed By: #### 0 0071 ####[facility] [facility] [address], [facility] Creatinine [Mass/Vol] 1.84 mg/dL High 0.70-1.30 [facility] Comment on above: Order Comment: Check Chest Tube Position, ON ARRIVAL TO CVU Performed By: #### 0 0071 ####[facility] EGFR 38 ml/min/1.73sq m Abnormal >60 [facility] Comment on above: Order Comment: Check Chest Tube Position, ON ARRIVAL TO CVU Result Comment: [facility]'s estimated glomerular filtration rate (eGFR) will [...] of individuals. Performed By: #### 0 0071 ####[facility] [place] [address], [facility] Glucose [Mass/Vol] 129 mg/dL High 70-100 [facility] Comment on above: Order Comment: Check Chest Tube Position, ON ARRIVAL TO CVU Performed By: #### 0 0071 ####[facility] [place] [address], [facility] Potassium [Moles/Vol] 4.2 mmol/L Normal 3.5-5.1 [facility] Comment on above: Order Comment: Check Chest Tube Position, ON ARRIVAL TO CVU Performed By: #### 0 0071 ####[facility] [place] [address], [place] Urea nitrogen [Mass/Vol] 41 mg/dL High 7-25 [facility] Comment on above: Order Comment: Check Chest Tube Position, ON ARRIVAL TO CVU Performed By: #### 0 0071 ####[facility] [place] [address], [place] Calcium [Mass/Vol] 8.8 mg/dL Normal 8.6-10.3 [facility] Comment on above: Order Comment: Check Chest Tube Position, ON ARRIVAL TO CVU Performed By: #### 0 0071 ####[facility] [place] [address], [place] Performed By: #### 0 0071, 73720, 45972 ####[facility] [place] [address], [place] Chloride [Moles/Vol] 105 mmol/L Normal 98-107 [facility] Comment on above: Order Comment: Check Chest Tube Position, ON ARRIVAL TO CVU Performed By: #### 0 0071, 87650, 68280 ####[facility] [place] [address], [place] CO2 [Moles/Vol] 19 mmol/L Low 21-31 [facility] Comment on above: Order Comment: Check Chest Tube Position, ON ARRIVAL TO CVU Performed By: #### 0 0071, 20838, 33921 ####[facility] [place] [address], [place] Creatinine [Mass/Vol] 1.60 mg/dL High 0.70-1.30 [facility] Comment on above: Order Comment: Check Chest Tube Position, ON ARRIVAL TO CVU Performed By: #### 0 0071, 02200, 44400 ####[facility] [place] [address], [facility] EGFR 45 ml/min/1.73sq m Abnormal >60 [facility] Comment on above: Order Comment: Check Chest Tube Position, ON ARRIVAL TO CVU Result Comment: [facility]'s estimated glomerular filtration rate (eGFR) will [...] of individuals. Performed By: #### 0 0071, 67062, 59058 ####[facility] [place] [address], [facility] Glucose [Mass/Vol] 137 mg/dL High 70-100 [facility] Comment on above: Order Comment: Check Chest Tube Position, ON ARRIVAL TO CVU Performed By: #### 0 0071, 09243, 32113 ####[facility] [place] [address], [facility] Potassium [Moles/Vol] 4.3 mmol/L Normal 3.5-5.1 [facility] Comment on above: Order Comment: Check Chest Tube Position, ON ARRIVAL TO CVU Performed By: #### 0 0071, 47367, 98152 ####[facility] [place] [address], [facility] Sodium [Moles/Vol] 133 mmol/L Low 136-145 [facility] Comment on above: Order Comment: Check Chest Tube Position, ON ARRIVAL TO CVU Performed By: #### 0 0071 ####[facility] [place] [address], [facility] Performed By: #### 0 0071, 94205, 77774 ####[facility] [place] [address], [facility] Urea nitrogen [Mass/Vol] 34 mg/dL High 7-25 [facility] Comment on above: Order Comment: Check Chest Tube Position, ON ARRIVAL TO CVU Performed By: #### 0 0071, 31285, 92796 ####[facility] [place] [address], [facility] CBC COMPLETE BLOOD COUNTon 0 02-22-2022 Erythrocyte distribution width (RBC) [Ratio] 14.8 % Normal 11.5-15.0 [facility] Comment on above: Order Comment: No: D o not add to previous draw Performed By: #### 5 0608 #### [facility] [address] [place] [address], [facility] Hematocrit (Bld) [Volume fraction] 30.9 % Low 39.0-50.0 [facility] Comment on above: Order Comment: No: D o not add to previous draw Performed By: #### 5 0608 #### [facility] [address] [place] [address], [facility] Hemoglobin (Bld) [Mass/Vol] 10.7 g/dL Low 13.0-17.0 [facility] Comment on above: Order Comment: No: D o not add to previous draw Performed By: #### 5 0608 #### [facility] [address] [place] [address], [place] IMM PLATELET FRAC 7.9 % High 0.8-6.3 [facility] Comment on above: Order Comment: No: D o not add to previous draw Performed By: #### 5 0608 #### [facility] [address] [place] [id number], [facility] MCH (RBC) [Entitic mass] 31.4 pg Normal 27.0-33.0 [facility] Comment on above: Order Comment: No: D o not add to previous draw Performed By: #### 5 0608 #### [facility] [address] [place] [address], [facility] MCHC (RBC) [Mass/Vol] 34.6 g/dL Normal 32.0-35.0 [facility] Comment on above: Order Comment: No: D o not add to previous draw Performed By: #### 5 0608 #### [facility] [address] [facility] [place] [id number], [facility] MCV (RBC) [Entitic vol] 90.6 fL Normal 82.0-98.0 [facility] Comment on above: Order Comment: No: D o not add to previous draw Performed By: #### 5 0608 #### [facility] [address] [facility] [place] [id number], [facility] Nucleated RBC/100 WBC (Bld) [Ratio] 0 % Normal 0-0 [facility] Comment on above: Order Comment: No: D o not add to previous draw Performed By: #### 5 0608 #### [facility] [address] [place] [address], [facility] PLAT CNT 74 10*3/uL Low 150-400 [facility] Comment on above: Order Comment: No: D o not add to previous draw Performed By: #### 5 0608 #### [facility] [address] [facility] [place] [address], [facility] RBC (Bld) [#/Vol] 3.41 10*6/uL Low 4.20-5.70 [facility] Comment on above: Order Comment: No: D o not add to previous draw Performed By: #### 5 0608 #### [facility] [address] [place] WBC (Bld) [#/Vol] 9.54 10*3/uL Normal 4.00-10.60 [facility] Comment on above: Order Comment: No: D o not add to previous draw Performed By: #### 5 0608 #### [facility] [address] MAGNESIUM BLOODon 02-22-2022 Magnesium [Mass/Vol] 2.3 mg/dL Normal 1.9-2.7 [facility] Comment on above: Order Comment: Check Chest Tube Position, ON ARRIVAL TO CVU Performed By: #### 0 0071, 11259, 77581 ####[facility] PHOSPHORUS BLOODon Phosphate [Mass/Vol] 3.8 mg/dL Normal 2.5-5.0 [facility] Comment on above: Order Comment: Check Chest Tube Position, ON ARRIVAL TO CVU Performed By: #### 0 0071, 99576, 26975 ####[facility] PORTABLE CHEST 1 VIEWon PORTABLE CHEST 1 VIEW [facility] Department of Radiology [address] [place] [address] ======== Patient Name: IGNACIO AMIN : 1945 Sex: M Age: Race: White Pt. Location: [id number] Patient Status: I Ordered Date: 02/22/2022 5:00:00 [...] recommended. Electronically signed: Martin Giordano. Transcribed by: [email or web address], User Resident: Electronically Signed by: MARTIN GIORDANO @ 02/22/2022 12:04 PM Normal [facility] Comment on above: Order Comment: Evalu ate for Pneumothorax URINALYSIS REFLEXon 02-23-20 Appearance (U) CLEAR Normal CLEAR [facility] Comment on above: Order Comment: No: D o not add to previous draw Criteria for reflexing a culture was not met. Please call the lab at [phone] within 24 hours of collection time if culture is needed Performed By: #### 3 0965 #### [facility] [address] [place] [address], [facility] Bilirubin Ql (U) Negative Normal NEGATIVE [facility] Comment on above: Order Comment: No: D o not add to previous draw Criteria for reflexing a culture was not met. Please call the lab at [phone] within 24 hours of collection time if culture is needed Performed By: #### 3 0965 #### [facility] [address] [place] [address], [facility] Color (U) YELLOW Normal YELLOW [facility] Comment on above: Order Comment: No: D o not add to previous draw Criteria for reflexing a culture was not met. Please call the lab at [phone] within 24 hours of collection time if culture is needed Performed By: #### 3 0965 #### [facility] [address] [facility] [place] [address], [facility] EPIS NONE SEEN Normal FEW,OCC,NONE SEEN [facility] Comment on above: Order Comment: No: D o not add to previous draw Criteria for reflexing a culture was not met. Please call the lab at [phone] within 24 hours of collection time if culture is needed Performed By: #### 3 0965 #### [facility] [address] [facility] [place] [address], [facility] Glucose Ql (U) Negative Normal NEGATIVE [facility] Comment on above: Order Comment: No: D o not add to previous draw Criteria for reflexing a culture was not met. Please call the lab at [phone] within 24 hours of collection time if culture is needed Performed By: #### 3 0965 #### [facility] [address] [place] [address], [facility] Hemoglobin Ql (U) SMALL Abnormal NEGATIVE [facility] Comment on above: Order Comment: No: D o not add to previous draw Criteria for reflexing a culture was not met. Please call the lab at [phone] within 24 hours of collection time if culture is needed Performed By: #### 3 0965 #### [facility] [address] [place] [address], [facility] Hyaline casts LM Ql (Urine sed) 6-10 Abnormal NONE SEEN [facility] Comment on above: Order Comment: No: D o not add to previous draw Criteria for reflexing a culture was not met. Please call the lab at [phone] within 24 hours of collection time if culture is needed Performed By: #### 3 0965 #### [facility] [address] [place] [address], [facility] KETONE Negative Normal NEGATIVE [facility] Comment on above: Order Comment: No: D o not add to previous draw Criteria for reflexing a culture was not met. Please call the lab at [phone] within 24 hours of collection time if culture is needed Performed By: #### 3 0965 #### [facility] [address] [facility] [address], [facility] LEUK TOMA Negative Normal NEGATIVE [facility] Comment on above: Order Comment: No: D o not add to previous draw Criteria for reflexing a culture was not met. Please call the lab at [phone] within 24 hours of collection time if culture is needed Performed By: #### 3 0965 #### [facility] [address] [place] [address], [facility] MUCUS THREADS OCC Abnormal NONE SEEN [facility] Comment on above: Order Comment: No: D o not add to previous draw Criteria for reflexing a culture was not met. Please call the lab at [phone] within 24 hours of collection time if culture is needed Performed By: #### 3 0965 #### [facility] [address] [place] [address], [facility] Nitrite Ql (U) Negative Normal NEGATIVE [facility] Comment on above: Order Comment: No: D o not add to previous draw Criteria for reflexing a culture was not met. Please call the lab at [phone] within 24 hours of collection time if culture is needed Performed By: #### 3 0965 #### [facility] [address] [place] [address], [facility] pH (U) 5.0 [pH] Normal 5.0-8.0 [facility] Comment on above: Order Comment: No: D o not add to previous draw Criteria for reflexing a culture was not met. Please call the lab at [phone] within 24 hours of collection time if culture is needed Performed By: #### 3 0965 #### [facility] [address] [facility]. [address] Protein Ql (U) TRACE Abnormal NEGATIVE [facility] Comment on above: Order Comment: No: D o not add to previous draw Criteria for reflexing a culture was not met. Please call the lab at [phone] within 24 hours of collection time if culture is needed Performed By: #### 3 0965 #### [facility] [address] [facility]. [address] RBC 6-10 Abnormal NONE SEEN [facility] Comment on above: Order Comment: No: D o not add to previous draw Criteria for reflexing a culture was not met. Please call the lab at [phone] within 24 hours of collection time if culture is needed Performed By: #### 3 0965 #### [facility] [address] [facility]. [address] SPEC GRAV 1.016 Normal 1.015-1.020 [facility] Comment on above: Order Comment: No: D o not add to previous draw Criteria for reflexing a culture was not met. Please call the lab at [phone] within 24 hours of collection time if culture is needed Performed By: #### 3 0965 #### [facility] [address] [place] [address], [facility] WBC UA 3-5 Abnormal NONE SEEN [facility] Comment on above: Order Comment: No: D o not add to previous draw Criteria for reflexing a culture was not met. Please call the lab at [phone] within 24 hours of collection time if culture is needed Performed By: #### 3 0965 #### [facility] [address] [facility]. [address] APTTon 02-21-2022 aPTT Coag (Bld) [Time] 38.0 s High 25.0-35.0 [facility] Comment on above: Order Comment: Check [...] THIS PURPOSE. Performed By: #### 5 7307, 27441 ####[facility] BASIC METABOLIC PANELon 09-0 -2021 Calcium [Mass/Vol] 8.6 mg/dL Normal 8.6-10.3 [facility] Comment on above: Order Comment: Check Chest Tube Position, ON ARRIVAL TO CVU Performed By: #### 1 69, 86218 ####[facility] [place] [address], [facility] Chloride [Moles/Vol] 107 mmol/L Normal 98-107 [facility] Comment on above: Order Comment: Check Chest Tube Position, ON ARRIVAL TO CVU Performed By: #### 1 69, 88541 ####[facility] [place] [address], [facility] CO2 [Moles/Vol] 18 mmol/L Low 21-31 [facility] Comment on above: Order Comment: Check Chest Tube Position, ON ARRIVAL TO CVU Performed By: #### 1 69, 54004 ####[facility] [place] [address], [facility] Creatinine [Mass/Vol] 1.69 mg/dL High 0.70-1.30 [facility] Comment on above: Order Comment: Check Chest Tube Position, ON ARRIVAL TO CVU Performed By: #### 1 69, 96262 ####[facility] [place] [address], [facility] EGFR 42 ml/min/1.73sq m Abnormal >60 [facility] Comment on above: Order Comment: Check Chest Tube Position, ON ARRIVAL TO CVU Result Comment: [facility]'s estimated glomerular filtration rate (eGFR) will [...] of individuals. Performed By: #### 1 0, 11441 ####[facility] [place] [address], [facility] Glucose [Mass/Vol] 155 mg/dL High 70-100 [facility] Comment on above: Order Comment: Check Chest Tube Position, ON ARRIVAL TO CVU Performed By: #### 1 69, 04176 ####[facility] [place] [address], [facility] Potassium [Moles/Vol] 4.6 mmol/L Normal 3.5-5.1 [facility] Comment on above: Order Comment: Check Chest Tube Position, ON ARRIVAL TO CVU Performed By: #### 1 69, 10407 ####[facility] [place] [address], [facility] Sodium [Moles/Vol] 136 mmol/L Normal 136-145 [facility] Comment on above: Order Comment: Check Chest Tube Position, ON ARRIVAL TO CVU Performed By: #### 1 69, 20681 ####[facility] [place] [address], [facility] Urea nitrogen [Mass/Vol] 29 mg/dL High 7-25 [facility] Comment on above: Order Comment: Check Chest Tube Position, ON ARRIVAL TO CVU Performed By: #### 1 69, 71058 ####[place] [id number] [place] [address], [facility] Calcium [Mass/Vol] 8.5 mg/dL Low 8.6-10.3 [facility] Comment on above: Order Comment: evalu ate for Effusion Performed By: #### 0 0071, 56030, 78662 ####[facility] [place] [address], [facility] Chloride [Moles/Vol] 108 mmol/L High 98-107 [facility] Comment on above: Order Comment: evalu ate for Effusion Performed By: #### 0 0071, 79924, 70174 ####[facility] [place] [address], [facility] CO2 [Moles/Vol] 21 mmol/L Normal 21-31 [facility] Comment on above: Order Comment: evalu ate for Effusion Performed By: #### 0 0071, 33546, 77851 ####[facility] [place] [address], [facility] Creatinine [Mass/Vol] 1.27 mg/dL Normal 0.70-1.30 [facility] Comment on above: Order Comment: evalu ate for Effusion Performed By: #### 0 0071, 81812, 93150 ####[facility] [facility].[address] EGFR 59 ml/min/1.73sq m Abnormal >60 [facility] Comment on above: Order Comment: evalu ate for Effusion Result Comment: [facility]'s estimated glomerular filtration rate (eGFR) will [...] of individuals. Performed By: #### 0 0071, 91749, 49395 ####[facility] [place] [address], [facility] Glucose [Mass/Vol] 118 mg/dL High 70-100 [facility] Comment on above: Order Comment: evalu ate for Effusion Performed By: #### 0 0071, 01463, 33259 ####[facility] [place] [address], [place] Potassium [Moles/Vol] 4.4 mmol/L Normal 3.5-5.1 [facility] Comment on above: Order Comment: evalu ate for Effusion Performed By: #### 0 0071, 21940, 70854 ####[facility] [place] [address], [facility] Sodium [Moles/Vol] 137 mmol/L Normal 136-145 [facility] Comment on above: Order Comment: evalu ate for Effusion Performed By: #### 0 0071, 04311, 28470 ####[facility] [place] [address], [facility] Urea nitrogen [Mass/Vol] 22 mg/dL Normal 7-25 [facility] Comment on above: Order Comment: evalu ate for Effusion Performed By: #### 0 0071, 25369, 09149 ####[facility] [facility] [id number], [facility] CBC COMPLETE BLOOD COUNTon 0 02-21-2022 Erythrocyte distribution width (RBC) [Ratio] 14.6 % Normal 11.5-15.0 [facility] Comment on above: Order Comment: No: D o not add to previous draw Performed By: #### 5 0608 #### [facility] [address] [place] [id number], [facility] Hematocrit (Bld) [Volume fraction] 30.4 % Low 39.0-50.0 [facility] Comment on above: Order Comment: No: D o not add to previous draw Performed By: #### 5 0608 #### [facility] [address] Hemoglobin (Bld) [Mass/Vol] 10.4 g/dL Low 13.0-17.0 [facility] Comment on above: Order Comment: No: D o not add to previous draw Performed By: #### 5 0608 #### [facility] [address] [place] [address], [facility] IMM PLATELET FRAC 5.8 % Normal 0.8-6.3 [facility] Comment on above: Order Comment: No: D o not add to previous draw Performed By: #### 5 0608 #### [facility] [address] MCH (RBC) [Entitic mass] 31.0 pg Normal 27.0-33.0 [facility] Comment on above: Order Comment: No: D o not add to previous draw Performed By: #### 5 0608 #### [facility] [address] MCHC (RBC) [Mass/Vol] 34.2 g/dL Normal 32.0-35.0 [facility] Comment on above: Order Comment: No: D o not add to previous draw Performed By: #### 5 0608 #### [facility] [address] MCV (RBC) [Entitic vol] 90.7 fL Normal 82.0-98.0 [facility] Comment on above: Order Comment: No: D o not add to previous draw Performed By: #### 5 0608 #### [facility] [address] [place] [address], [facility] Nucleated RBC/100 WBC (Bld) [Ratio] 0 % Normal 0-0 [facility] Comment on above: Order Comment: No: D o not add to previous draw Performed By: #### 5 0608 #### [facility] [address] [place] [address], [facility] PLAT CNT 83 10*3/uL Low 150-400 [facility] Comment on above: Order Comment: No: D o not add to previous draw Performed By: #### 5 0608 #### [facility] [address] [place] [address], [facility] RBC (Bld) [#/Vol] 3.35 10*6/uL Low 4.20-5.70 [facility] Comment on above: Order Comment: No: D o not add to previous draw Performed By: #### 5 0608 #### [facility] [address] [facility] [place] [address], [facility] WBC (Bld) [#/Vol] 6.89 10*3/uL Normal 4.00-10.60 [facility] Comment on above: Order Comment: No: D o not add to previous draw Performed By: #### 5 0608 #### [facility] [address] [place] [address], [facility] COOXIMETRYon 02-21-2022 COHB 2 % Normal [facility] Comment on above: Performed By: #### 7 0207 ####[facility] [place] [address], [facility] METHB 0 % Normal [facility] Comment on above: Performed By: #### 7 0207 ####[facility] [place] [address], [facility] Oxygen saturation in Blood 53.5 % Low 65.0-75.0 [facility] Comment on above: Performed By: #### 7 0207 ####[facility] [place] [address], [facility] THB 11.6 g/dL Normal [facility] Comment on above: Performed By: #### 7 0207 ####[facility] LACTATE BLOODon 02-21-2022 Lactate [Moles/Vol] 1.0 mmol/L Normal .5-2.2 [facility] Comment on above: Order Comment: Evalu ate for Pneumothorax Performed By: #### 1 0054 ####[facility] MAGNESIUM BLOODon 02-21-2022 Magnesium [Mass/Vol] 2.3 mg/dL Normal 1.9-2.7 [facility] Comment on above: Order Comment: Check Chest Tube Position, ON ARRIVAL TO CVU Performed By: #### 1 0070, 79123 ####[facility] Magnesium [Mass/Vol] 1.9 mg/dL Normal 1.9-2.7 [facility] Comment on above: Order Comment: evalu ate for Effusion Performed By: #### 0 0071, 17827, 38066 ####[facility] Operative Reporton 2 Operative Report MR#: [id number] I [facility] Pt. Name: Ignacio Amin Room #: JATIN [id number] Discharge Date: Birthdate: 1945 OPERATIVE REPORT DATE [...] anesthesia was induced. Colvin catheter was placed. Ona-Sundar catheter was placed, which demonstrated mildly elevated [...] chest tubes were placed that were 32 [place]. The sternum was reapproximated with #6 wire. The fascia was (more content not included)... Normal [facility] PHOSPHORUS BLOODon 2 Phosphate [Mass/Vol] 5.2 mg/dL High 2.5-5.0 [facility] Comment on above: Order Comment: evalu ate for Effusion Performed By: #### 0 0071, 50814, 18530 ####[facility] [place] [address], [facility] POC GLUCOSE LABon 02-21-2022 Glucose [Mass/Vol] 124 mg/dL High 70-100 [facility] Comment on above: Performed By: #### 3 1595 #### [facility] [address] [place] [address], [facility] PORTABLE CHEST 1 VIEWon PORTABLE CHEST 1 VIEW [facility] Department of Radiology [address] [place] [address] ======== Patient Name: IGNACIO AMIN : 1945 Sex: M Age: Race: White Pt. Location: [id number] Patient Status: I Ordered Date: 02/21/2022 7:00:00 [...] is enlarged with vascular prominence centrally. The Ona-Sundar catheter tip overlies the main pulmonary outflow tract. A left chest tube remains in place with no visible pneumothorax. Strandy perihilar and basilar infiltrates are present some worsening volume loss in the lung bases is blunting of the right costophrenic angle IMPRESSION: Slight worsening of pulmonary infiltrates. Support lines and tubes remain in place. Electronically signed: Jaspreet Hastings. Transcribed by: [email or web address], User Resident: Electronically Signed by: JASPREET HASTINGS @ 02/21/2022 08:00 AM Normal [facility] Comment on above: Order Comment: Check Chest Tube Position, ON ARRIVAL TO CVU PROTHROMBIN TIMEon INR Coag (PPP) [Relative time] 1.36 {INR} High 0.91-1.16 [facility] Comment on above: Order Comment: Check [...] CHEST 1995;[id number]. Performed By: #### 5 7307, [id number] ####[facility].[address] PT Coag (PPP) [Time] 16.7 s High 12.3-14.8 [facility] Comment on above: Order Comment: Check Chest Tube Position, ON ARRIVAL TO CVU Result Comment: ALL RESULTS MUST BE INTERPRETED WITH RESPECT TO BLOOD DRAWING ARTIFACT OR DILUTION ERROR OF ANTICOAGULANT AT THE TIME OF SAMPLING. Performed By: #### 5 7307, 93651 ####[facility] [place] [address], [facility] ACTIVATED CLOTTING TIMEon ACTIVATED CLOTTING TIME 110 sec Normal 82-152 [facility] Comment on above: Performed By: #### 8 5499 #### [facility] [address] [place] [address], [place] ACTIVATED CLOTTING TIME 116 sec Normal 82-152 [facility] Comment on above: Performed By: #### 3 0739 #### [facility] [address] [place] [address], [place] ACTIVATED CLOTTING TIME 134 sec Normal 82-152 [facility] Comment on above: Performed By: #### 8 5499 #### [facility] [address] [place] [address], [place] ACTIVATED CLOTTING TIME 537 sec High 82-152 [facility] Comment on above: Performed By: #### 3 1595 #### [facility] [address] [place] [address], [place] ACTIVATED CLOTTING TIME 692 sec High 82-152 [facility] Comment on above: Performed By: #### 3 1595 #### [facility] [address] [place] [address], [place] ACTIVATED CLOTTING TIME 861 sec High 82-152 [facility] Comment on above: Performed By: #### 8 5499 #### [facility] [address] [place] [address], [place] ACTIVATED CLOTTING TIME 651 sec High 82-152 [facility] Comment on above: Performed By: #### 3 2044 #### [facility] [address] [place] [address], [place] ACTIVATED CLOTTING TIME 140 sec Normal 82-152 [facility] Comment on above: Performed By: #### 8 5499 #### [facility] [address] [place] [address], [place] APTTon 02-20-2022 aPTT Coag (Bld) [Time] 33.7 s Normal 25.0-35.0 [facility] Comment on above: Order Comment: Check [...] THIS PURPOSE. Performed By: #### 5 6101, 83364 ####[facility] [place] [address], [facility] aPTT Coag (Bld) [Time] 39.1 s High 25.0-35.0 [facility] Comment on above: Result Comment: ALL [...] THIS PURPOSE. Performed By: #### 5 6101, 08500, 24135 ####[facility] [place] [address], [facility] aPTT Coag (Bld) [Time] 109.3 s Critically high 25.0-35.0 [facility] Comment on above: Order Comment: Check Chest Tube Position, ON ARRIVAL TO CVU Result Comment: Resu lt checked and called. Accurately read back by Marie Silva at 0610 Performed By: #### 3 0477, 16332, 28620 ####[facility] [place] [address], [facility] ARTERIAL BLOOD GAS WITH ICAo n 02-20-2022 BASE EXCESS -5 mmol/L Low -2-3 [facility] Comment on above: Performed By: #### 3 2043 #### [facility] [address] [place] [address], [place] DELIVERY SYSTEMS VENTILATOR Normal [facility] Comment on above: Performed By: #### 3 2043 #### [facility] [address] [place] [address], [facility] FIO2 40 % Normal [facility] Comment on above: Performed By: #### 3 2043 #### [facility] [address] [place] [address], [facility] HCO3 (Bld) [Moles/Vol] 21 mmol/L Normal 21-28 [facility] Comment on above: Performed By: #### 3 2043 #### [facility] [address] [place] [address], [facility] IONIZED CALCIUM 1.20 mmol/L Normal 1.13-1.32 [facility] Comment on above: Performed By: #### 3 2043 #### [facility] [address] [place] [address], [facility] MIN VOLUME 8.1 Normal [facility] Comment on above: Performed By: #### 3 2043 #### [facility] [address] [place] [address], [facility] MODALITY Positive Normal [facility] Comment on above: Performed By: #### 3 2043 #### [facility] [address] [place] [address], [facility] Oxygen (Bld) [Partial pressure] 125 mm[Hg] Critically high 83-108 [facility] Comment on above: Performed By: #### 3 2043 #### [facility] [address] [place] [address], [facility] Oxygen saturation in Blood 97.3 % High 94.0-97.0 [facility] Comment on above: Performed By: #### 3 2043 #### [facility] [address] [place] [address], [facility] PCO2 38 mmHg Normal 35-45 [facility] Comment on above: Performed By: #### 3 2043 #### [facility] [address] [place] [address], [facility] PEEP 5.0 CMH20 Normal [facility] Comment on above: Performed By: #### 3 2043 #### [facility] [address] [place] [address], [facility] PF RATIO [address] [facility] Comment on above: Performed By: #### 3 2043 #### [facility] [address] [place] [address], [facility] pH (Bld) 7.34 [pH] Low 7.35-7.45 [facility] Comment on above: Performed By: #### 3 2043 #### [facility] [address] [place] [address], [facility] PRESSURE SUPPORT 8 Normal [facility] Comment on above: Performed By: #### 3 2043 #### [facility] [address] [place] [address], [facility] BASE EXCESS -4 mmol/L Low -2-3 [facility] Comment on above: Order Comment: on ar rival to CVU Performed By: #### 3 39 #### [facility] [address] [place] [address], [facility] DELIVERY SYSTEMS VENTILATOR Normal [facility] Comment on above: Order Comment: on ar rival to CVU Performed By: #### 3 0739 #### [facility] [address] [place] [address], [facility] FIO2 50 % Normal [facility] Comment on above: Order Comment: on ar rival to CVU Performed By: #### 3 0739 #### [facility] [address] [place] [address], [facility] HCO3 (Bld) [Moles/Vol] 22 mmol/L Normal 21-28 [facility] Comment on above: Order Comment: on ar rival to CVU Performed By: #### 3 0739 #### [facility] [address] [place] [address], [place] IONIZED CALCIUM 1.20 mmol/L Normal 1.13-1.32 [facility] Comment on above: Order Comment: on ar rival to CVU Performed By: #### 3 0739 #### [facility] [address] [place] [address], [place] MIN VOLUME 7.4 Normal [facility] Comment on above: Order Comment: on ar rival to CVU Performed By: #### 3 0739 #### [facility] [address] [place] [address], [place] MODALITY SIMV Normal [facility] Comment on above: Order Comment: on ar rival to CVU Performed By: #### 3 0739 #### [facility] [address] [place] [address], [place] Oxygen (Bld) [Partial pressure] 150 mm[Hg] Critically high 83-108 [facility] Comment on above: Order Comment: on ar rival to CVU Performed By: #### 3 0739 #### [facility] [address] [place] [address], [place] Oxygen saturation in Blood 97.6 % High 94.0-97.0 [facility] Comment on above: Order Comment: on ar rival to CVU Performed By: #### 3 0739 #### [facility] [address] [place] [address], [place] PCO2 42 mmHg Normal 35-45 [facility] Comment on above: Order Comment: on ar rival to CVU Performed By: #### 3 0739 #### [facility] [address] [place] [address], [place] PEEP 8.0 CMH20 Normal [facility] Comment on above: Order Comment: on ar rival to CVU Performed By: #### 3 0739 #### [facility] [address] [place] [address], [place] PF RATIO 300 mmHg Normal [facility] Comment on above: Order Comment: on ar rival to CVU Performed By: #### 3 0739 #### [facility] [address] [place] [address], [facility] pH (Bld) 7.32 [pH] Low 7.35-7.45 [facility] Comment on above: Order Comment: on ar rival to CVU Performed By: #### 3 0739 #### [facility] [address] [place] [address], [facility] PRESSURE SUPPORT 8 Normal [facility] Comment on above: Order Comment: on ar rival to CVU Performed By: #### 3 0739 #### [facility] [address] [place] [address], [facility] Respiratory rate 16 /min Normal [facility] Comment on above: Order Comment: on ar rival to CVU Performed By: #### 3 0739 #### [facility] [address] [place] [address], [facility] TIDAL VOLUME (VT) CC 450 Normal [facility] Comment on above: Order Comment: on ar rival to CVU Performed By: #### 3 0739 #### [facility] [address] [place] [address], [facility] BASIC METABOLIC PANELon 08-3 Calcium [Mass/Vol] 8.4 mg/dL Low 8.6-10.3 [facility] Comment on above: Order Comment: evalu ate for Effusion Performed By: #### 1 0070, 75320, 69140, 37893, 12300 ####[facility] [place] [address], [facility] Chloride [Moles/Vol] 111 mmol/L High 98-107 [facility] Comment on above: Order Comment: evalu ate for Effusion Performed By: #### 1 0070, 22006, 00571, 42038, 89865 ####[facility] [place] [address], [facility] CO2 [Moles/Vol] 22 mmol/L Normal 21-31 [facility] Comment on above: Order Comment: evalu ate for Effusion Performed By: #### 1 0070, 11032, 50517, 73094, 42383 ####[facility] [facility] [place] [address], [facility] Creatinine [Mass/Vol] 0.79 mg/dL Normal 0.70-1.30 [facility] Comment on above: Order Comment: evalu ate for Effusion Performed By: #### 1 0070, 76281, 00269, 91956, 36590 ####[place] [id number] [place] [address], [facility] GFR/1.73 sq M.predicted among non-blacks MDRD (S/P/Bld) [Vol rate/Area] mL/min/{1.73_m2} Normal >60 [facility] Comment on above: Order Comment: evalu ate for Effusion Result Comment: [facility]'s estimated glomerular filtration rate (eGFR) will [...] of individuals. Performed By: #### 1 0070, 42331, 27033, 07632, 54234 ####[facility] [place] [address], [facility] Glucose [Mass/Vol] 124 mg/dL High 70-100 [facility] Comment on above: Order Comment: evalu ate for Effusion Performed By: #### 1 0070, 11304, 69957, 18599, 87705 ####[facility] [place] [address], [place] Potassium [Moles/Vol] 4.5 mmol/L Normal 3.5-5.1 [facility] Comment on above: Order Comment: evalu ate for Effusion Performed By: #### 1 0070, 29321, 69974, 50892, 82700 ####[facility] [place] [address], [place] Sodium [Moles/Vol] 140 mmol/L Normal 136-145 [facility] Comment on above: Order Comment: evalu ate for Effusion Performed By: #### 1 0070, 33275, 34012, 61903, 53571 ####[facility] [place] [address], [place] Urea nitrogen [Mass/Vol] 16 mg/dL Normal 7-25 [facility] Comment on above: Order Comment: evalu ate for Effusion Performed By: #### 1 0070, 72322, 05538, 85530, 21410 ####[facility] [place] [address], [place] Calcium [Mass/Vol] 7.8 mg/dL Low 8.6-10.3 [facility] Comment on above: Performed By: #### 1 0, 06200 ####[facility] [place] [address], [place] Chloride [Moles/Vol] 112 mmol/L High 98-107 [facility] Comment on above: Performed By: #### 1 0, 59969 ####[facility] [place] [address], [place] CO2 [Moles/Vol] 24 mmol/L Normal 21-31 [facility] Comment on above: Performed By: #### 1 0, 10973 ####[facility] [place] [address], [place] Creatinine [Mass/Vol] 0.81 mg/dL Normal 0.70-1.30 [facility] Comment on above: Performed By: #### 1 69, 06310 ####[facility] [place] [address], [facility] GFR/1.73 sq M.predicted among non-blacks MDRD (S/P/Bld) [Vol rate/Area] mL/min/{1.73_m2} Normal >60 [facility] Comment on above: Result Comment: [facility]'s estimated glomerular filtration rate (eGFR) will [...] of individuals. Performed By: #### 1 69, 43477 ####[facility] [place] [address], [facility] Glucose [Mass/Vol] 105 mg/dL High 70-100 [facility] Comment on above: Performed By: #### 1 69, 02647 ####[facility] [place] [address], [facility] Potassium [Moles/Vol] 4.0 mmol/L Normal 3.5-5.1 [facility] Comment on above: Performed By: #### 1 69, 26484 ####[facility] [facility] [place] [address], [facility] Sodium [Moles/Vol] 142 mmol/L Normal 136-145 [facility] Comment on above: Performed By: #### 1 69, 62069 ####[facility] [place] [address], [facility] Urea nitrogen [Mass/Vol] 17 mg/dL Normal 7-25 [facility] Comment on above: Performed By: #### 1 0070, 26271 ####[facility] [place] [address], [facility] Calcium [Mass/Vol] 8.9 mg/dL Normal 8.6-10.3 [facility] Comment on above: Order Comment: Check Chest Tube Position, ON ARRIVAL TO CVU Performed By: #### 0 0071, 76387, 17766 ####[facility] [place] [address], [facility] Chloride [Moles/Vol] 110 mmol/L High 98-107 [facility] Comment on above: Order Comment: Check Chest Tube Position, ON ARRIVAL TO CVU Performed By: #### 0 0071, 55914, 73532 ####[facility] [place] [address], [facility] CO2 [Moles/Vol] 23 mmol/L Normal 21-31 [facility] Comment on above: Order Comment: Check Chest Tube Position, ON ARRIVAL TO CVU Performed By: #### 0 0071, 96049, 90212 ####[facility] [place] [address], [facility] Creatinine [Mass/Vol] 0.90 mg/dL Normal 0.70-1.30 [facility] Comment on above: Order Comment: Check Chest Tube Position, ON ARRIVAL TO CVU Performed By: #### 0 0071, 14163, 17470 ####[facility] [place] [address], [facility] GFR/1.73 sq M.predicted among non-blacks MDRD (S/P/Bld) [Vol rate/Area] mL/min/{1.73_m2} Normal >60 [facility] Comment on above: Order Comment: Check Chest Tube Position, ON ARRIVAL TO CVU Result Comment: [facility]'s estimated glomerular filtration rate (eGFR) will [...] of individuals. Performed By: #### 0 0071, 30616, 11122 ####[facility] [place] [address], [facility] Glucose [Mass/Vol] 91 mg/dL Normal 70-100 [facility] Comment on above: Order Comment: Check Chest Tube Position, ON ARRIVAL TO CVU Performed By: #### 0 0071, 11707, 99395 ####[facility] [place] [address], [facility] Potassium [Moles/Vol] 3.7 mmol/L Normal 3.5-5.1 [facility] Comment on above: Order Comment: Check Chest Tube Position, ON ARRIVAL TO CVU Performed By: #### 0 0071, 09146, 11165 ####[facility] [place] [address], [facility] Sodium [Moles/Vol] 141 mmol/L Normal 136-145 [facility] Comment on above: Order Comment: Check Chest Tube Position, ON ARRIVAL TO CVU Performed By: #### 0 0071, 03075, 71883 ####[facility] [place] [address], [facility] Urea nitrogen [Mass/Vol] 23 mg/dL Normal 7-25 [facility] Comment on above: Order Comment: Check Chest Tube Position, ON ARRIVAL TO CVU Performed By: #### 0 0071, 43443, 49605 ####[facility] [place] [address], [facility] CBC COMPLETE BLOOD COUNTon 0 8- Erythrocyte distribution width (RBC) [Ratio] 13.9 % Normal 11.5-15.0 [facility] Comment on above: Order Comment: Check Chest Tube Position, ON ARRIVAL TO CVU Performed By: #### 5 0608 ####[facility] Hematocrit (Bld) [Volume fraction] 33.9 % Low 39.0-50.0 [facility] Comment on above: Order Comment: Check Chest Tube Position, ON ARRIVAL TO CVU Performed By: #### 5 0608 ####[facility] Hemoglobin (Bld) [Mass/Vol] 11.1 g/dL Low 13.0-17.0 [facility] Comment on above: Order Comment: Check Chest Tube Position, ON ARRIVAL TO CVU Performed By: #### 5 0608 ####[address] IMM PLATELET FRAC 5.9 % Normal 0.8-6.3 [facility] Comment on above: Order Comment: Check Chest Tube Position, ON ARRIVAL TO CVU Performed By: #### 5 0608 ####[address] MCH (RBC) [Entitic mass] 30.2 pg Normal 27.0-33.0 [facility] Comment on above: Order Comment: Check Chest Tube Position, ON ARRIVAL TO CVU Performed By: #### 5 0608 ####[address] MCHC (RBC) [Mass/Vol] 32.7 g/dL Normal 32.0-35.0 [facility] Comment on above: Order Comment: Check Chest Tube Position, ON ARRIVAL TO CVU Performed By: #### 5 0608 ####[address] MCV (RBC) [Entitic vol] 92.4 fL Normal 82.0-98.0 [facility] Comment on above: Order Comment: Check Chest Tube Position, ON ARRIVAL TO CVU Performed By: #### 5 0608 ####[facility] [facility] [place] [address], [facility] Nucleated RBC/100 WBC (Bld) [Ratio] 0 % Normal 0-0 [facility] Comment on above: Order Comment: Check Chest Tube Position, ON ARRIVAL TO CVU Performed By: #### 5 0608 ####[facility] [place] [address], [facility] PLAT CNT 98 10*3/uL Low 150-400 [facility] Comment on above: Order Comment: Check Chest Tube Position, ON ARRIVAL TO CVU Performed By: #### 5 0608 ####[facility] [facility] [place] [address], [facility] RBC (Bld) [#/Vol] 3.67 10*6/uL Low 4.20-5.70 [facility] Comment on above: Order Comment: Check Chest Tube Position, ON ARRIVAL TO CVU Performed By: #### 5 0608 ####[facility] [facility] [place] [address], [facility] WBC (Bld) [#/Vol] 9.42 10*3/uL Normal 4.00-10.60 [facility] Comment on above: Order Comment: Check Chest Tube Position, ON ARRIVAL TO CVU Performed By: #### 5 0608 ####[facility] [facility] [place] [address], [facility] Erythrocyte distribution width (RBC) [Ratio] 13.8 % Normal 11.5-15.0 [facility] Comment on above: Performed By: #### 5 0608 #### [facility] [address] [place] [address], [facility] Hematocrit (Bld) [Volume fraction] 28.6 % Low 39.0-50.0 [facility] Comment on above: Performed By: #### 5 0608 #### [facility] [address] [facility]. [address] Hemoglobin (Bld) [Mass/Vol] 9.7 g/dL Low 13.0-17.0 [facility] Comment on above: Performed By: #### 5 0608 #### [facility] [address] IMM PLATELET FRAC 5.0 % Normal 0.8-6.3 [facility] Comment on above: Performed By: #### 5 0608 #### [facility] [address] MCH (RBC) [Entitic mass] 31.3 pg Normal 27.0-33.0 [facility] Comment on above: Performed By: #### 5 0608 #### [facility] [address] MCHC (RBC) [Mass/Vol] 33.9 g/dL Normal 32.0-35.0 [facility] Comment on above: Performed By: #### 5 0608 #### [facility] [address] MCV (RBC) [Entitic vol] 92.3 fL Normal 82.0-98.0 [facility] Comment on above: Performed By: #### 5 0608 #### [facility] [address] Nucleated RBC/100 WBC (Bld) [Ratio] 0 % Normal 0-0 [facility] Comment on above: Performed By: #### 5 0608 #### [facility] [address] PLAT CNT 73 10*3/uL Low 150-400 [facility] Comment on above: Result Comment: RESU LTS CHECKED Performed By: #### 5 0608 #### [facility] [address] [place] [address], [facility] RBC (Bld) [#/Vol] 3.10 10*6/uL Low 4.20-5.70 [facility] Comment on above: Performed By: #### 5 0608 #### [facility] [address] [place] [address], [facility] WBC (Bld) [#/Vol] 7.29 10*3/uL Normal 4.00-10.60 [facility] Comment on above: Performed By: #### 5 0608 #### [facility] [address] [place] [address], [facility] Erythrocyte distribution width (RBC) [Ratio] 13.7 % Normal 11.5-15.0 [facility] Comment on above: Order Comment: No: D o not add to previous draw Performed By: #### 5 0608 #### [facility] [address] [place] [address], [facility] Hematocrit (Bld) [Volume fraction] 39.5 % Normal 39.0-50.0 [facility] Comment on above: Order Comment: No: D o not add to previous draw Performed By: #### 5 0608 #### [facility] [address] [place] [address], [facility] Hemoglobin (Bld) [Mass/Vol] 13.4 g/dL Normal 13.0-17.0 [facility] Comment on above: Order Comment: No: D o not add to previous draw Performed By: #### 5 0608 #### [facility] [address] [place] [address], [facility] IMM PLATELET FRAC 6.1 % Normal 0.8-6.3 [facility] Comment on above: Order Comment: No: D o not add to previous draw Performed By: #### 5 0608 #### [facility] [address] [place] [address], [place] MCH (RBC) [Entitic mass] 30.9 pg Normal 27.0-33.0 [facility] Comment on above: Order Comment: No: D o not add to previous draw Performed By: #### 5 0608 #### [facility] [address] [place] [id number], [facility] MCHC (RBC) [Mass/Vol] 33.9 g/dL Normal 32.0-35.0 [facility] Comment on above: Order Comment: No: D o not add to previous draw Performed By: #### 5 0608 #### [facility] [address] [place] [id number], [facility] MCV (RBC) [Entitic vol] 91.2 fL Normal 82.0-98.0 [facility] Comment on above: Order Comment: No: D o not add to previous draw Performed By: #### 5 0608 #### [facility] [address] [facility] [address] [place] [id number], [facility] Nucleated RBC/100 WBC (Bld) [Ratio] 0 % Normal 0-0 [facility] Comment on above: Order Comment: No: D o not add to previous draw Performed By: #### 5 0608 #### [facility] [address] [place] [id number], [facility] PLAT CNT 120 10*3/uL Low 150-400 [facility] Comment on above: Order Comment: No: D o not add to previous draw Performed By: #### 5 0608 #### [facility] [address] [place] [id number], [facility] RBC (Bld) [#/Vol] 4.33 10*6/uL Normal 4.20-5.70 [facility] Comment on above: Order Comment: No: D o not add to previous draw Performed By: #### 5 0608 #### [facility] [address] [place] [address], [facility] WBC (Bld) [#/Vol] 4.21 10*3/uL Normal 4.00-10.60 [facility] Comment on above: Order Comment: No: D o not add to previous draw Performed By: #### 5 0608 #### [facility] [address] [place] [address], [facility] CBC W/DIFFon 02-20-2022 ABS IMM GRANS 0.0 10*3/uL Normal 0.0-0.2 [facility] Comment on above: Order Comment: No: D o not add to previous draw Performed By: #### 5 0608 #### [facility] [address] [place] [address], [facility] ABS NEUTROPHILS 9.6 10*3/uL High 1.6-7.6 [facility] Comment on above: Order Comment: No: D o not add to previous draw Performed By: #### 5 0608 #### [facility] [address] [place] [address], [facility] Basophils (Bld) [#/Vol] 0.0 10*3/uL Normal 0.0-0.2 [facility] Comment on above: Order Comment: No: D o not add to previous draw Performed By: #### 5 0608 #### [facility] [address] [place] [address], [facility] Basophils/100 WBC (Bld) 0.2 % Normal 0.0-1.0 [facility] Comment on above: Order Comment: No: D o not add to previous draw Performed By: #### 5 0608 #### [facility] [address] [place] [address], [facility] Eosinophils (Bld) [#/Vol] 0.0 10*3/uL Normal 0.0-0.5 [facility] Comment on above: Order Comment: No: D o not add to previous draw Performed By: #### 5 0608 #### [facility] [address] [place] [address], [facility] Eosinophils/100 WBC (Bld) 0.1 % Normal 0.0-6.0 [facility] Comment on above: Order Comment: No: D o not add to previous draw Performed By: #### 5 0608 #### [facility] [address] [place] [address], [facility] Erythrocyte distribution width (RBC) [Ratio] 14.1 % Normal 11.5-15.0 [facility] Comment on above: Order Comment: No: D o not add to previous draw Performed By: #### 5 0608 #### [facility] [address] [place] [address], [facility] Hematocrit (Bld) [Volume fraction] 35.5 % Low 39.0-50.0 [facility] Comment on above: Order Comment: No: D o not add to previous draw Performed By: #### 5 0608 #### [facility] [address] [facility] [place] [address], [facility] Hemoglobin (Bld) [Mass/Vol] 11.9 g/dL Low 13.0-17.0 [facility] Comment on above: Order Comment: No: D o not add to previous draw Performed By: #### 5 0608 #### [facility] [address] [facility] [address], [facility] IMM PLATELET FRAC 5.8 % Normal 0.8-6.3 [facility] Comment on above: Order Comment: No: D o not add to previous draw Performed By: #### 5 0608 #### [facility] [address] [facility] [place] [address], [facility] IMMATURE GRANS 0.3 % Normal 0.0-1.0 [facility] Comment on above: Order Comment: No: D o not add to previous draw Performed By: #### 5 0608 #### [facility] [address] [place] [address], [facility] Lymphocytes (Bld) [#/Vol] 0.3 10*3/uL Low 1.2-4.0 [facility] Comment on above: Order Comment: No: D o not add to previous draw Performed By: #### 5 0608 #### [facility] [address] Lymphocytes/100 WBC (Bld) 3.1 % Low 20.0-45.0 [facility] Comment on above: Order Comment: No: D o not add to previous draw Performed By: #### 5 0608 #### [facility] [address] [place] [address], [facility] MCH (RBC) [Entitic mass] 30.6 pg Normal 27.0-33.0 [facility] Comment on above: Order Comment: No: D o not add to previous draw Performed By: #### 5 0608 #### [facility] [address] MCHC (RBC) [Mass/Vol] 33.5 g/dL Normal 32.0-35.0 [facility] Comment on above: Order Comment: No: D o not add to previous draw Performed By: #### 5 0608 #### [facility] [address] [place] [address], [facility] MCV (RBC) [Entitic vol] 91.3 fL Normal 82.0-98.0 [facility] Comment on above: Order Comment: No: D o not add to previous draw Performed By: #### 5 0608 #### [facility] [address] [place] [address], [facility] Monocytes (Bld) [#/Vol] 0.8 10*3/uL Normal 0.1-1.0 [facility] Comment on above: Order Comment: No: D o not add to previous draw Performed By: #### 5 0608 #### [facility] [address] [place] [address], [facility] MONOS 7.6 % Normal 5.0-12.0 [facility] Comment on above: Order Comment: No: D o not add to previous draw Performed By: #### 5 0608 #### [facility] [address] [place] [id number], [facility] Neutrophils/100 WBC (Bld) 88.7 % High 40.0-72.0 [facility] Comment on above: Order Comment: No: D o not add to previous draw Performed By: #### 5 0608 #### [facility] [address] [place] [id number], [facility] Nucleated RBC/100 WBC (Bld) [Ratio] 0 % Normal 0-0 [facility] Comment on above: Order Comment: No: D o not add to previous draw Performed By: #### 5 0608 #### [facility] [address] [place] [id number], [facility] PLAT CNT 109 10*3/uL Low 150-400 [facility] Comment on above: Order Comment: No: D o not add to previous draw Performed By: #### 5 0608 #### [facility] [address] [place] [id number], [facility] RBC (Bld) [#/Vol] 3.89 10*6/uL Low 4.20-5.70 [facility] Comment on above: Order Comment: No: D o not add to previous draw Performed By: #### 5 0608 #### [facility] [address] [place] [id number], [facility] WBC (Bld) [#/Vol] 10.80 10*3/uL High 4.00-10.60 [facility] Comment on above: Order Comment: No: D o not add to previous draw Performed By: #### 5 0608 #### [facility] [address] [place] [address], [place] COOXIMETRYon 02-20-2022 COHB 2 % Normal [facility] Comment on above: Performed By: #### 3 0739 #### [facility] [address] [place] [address], [place] METHB 1 % Normal [facility] Comment on above: Performed By: #### 3 0739 #### [facility] [address] [place] [address], [place] Oxygen saturation in Blood 60.3 % Low 65.0-75.0 [facility] Comment on above: Performed By: #### 3 0739 #### [facility] [address] [place] [address], [place] THB 12.0 g/dL Normal [facility] Comment on above: Performed By: #### 3 0739 #### [facility] [address] [place] [address], [place] FIBRINOGENon 02-20-2022 FIBRINOGEN 220 mg/dL Normal 150-425 [facility] Comment on above: Performed By: #### 5 6101, 40990, 35033 ####[facility] [place] [address], [place] LACTATE BLOODon 02-20-2022 Lactate [Moles/Vol] 0.9 mmol/L Normal .5-2.2 [facility] Comment on above: Order Comment: Evalu ate for Pneumothorax Performed By: #### 1 0054 ####[facility] [place] [address], [place] Lactate [Moles/Vol] 1.1 mmol/L Normal .5-2.2 [facility] Comment on above: Performed By: #### 1 0054 ####[facility] [place] [address], [place] LIVER BATTERYon 02-20-2022 Albumin [Mass/Vol] 3.5 g/dL Normal 3.5-5.7 [facility] Comment on above: Order Comment: evalu ate for Effusion Performed By: #### 1 0070, 16753, 16182, 50878, 48923 ####[facility] [place] [address], [facility] ALKALINE PHOSPH 48 IU/L Normal 34-104 [facility] Comment on above: Order Comment: evalu ate for Effusion Performed By: #### 1 0070, 07934, 64136, 00706, 26229 ####[facility] [place] [address], [place] ALT [Catalytic activity/Vol] 12 U/L Normal 7-52 [facility] Comment on above: Order Comment: evalu ate for Effusion Performed By: #### 1 0070, 84816, 31335, 05932, 78149 ####[facility] [place] [address], [place] AST [Catalytic activity/Vol] 19 U/L Normal 13-39 [facility] Comment on above: Order Comment: evalu ate for Effusion Performed By: #### 1 0070, 10275, 99531, 49441, 84404 ####[facility] [place] [address], [place] Bilirubin [Mass/Vol] 1.0 mg/dL Normal 0.3-1.0 [facility] Comment on above: Order Comment: evalu ate for Effusion Performed By: #### 1 0070, 99329, 61332, 39505, 42243 ####[facility] [place] [address], [place] Bilirubin.direct [Mass/Vol] 0.3 mg/dL High 0.0-0.2 [facility] Comment on above: Order Comment: evalu ate for Effusion Performed By: #### 1 0070, 76435, 89057, 51157, 59781 ####[facility] [place] [address], [place] Protein [Mass/Vol] 5.1 g/dL Low 6.0-8.3 [facility] Comment on above: Order Comment: evalu ate for Effusion Performed By: #### 1 0070, 80495, 80450, 01989, 52491 ####[facility] [place] [address], [place] MAGNESIUM BLOODon 02-20-2022 Magnesium [Mass/Vol] 2.2 mg/dL Normal 1.9-2.7 [facility] Comment on above: Order Comment: Evalu ate for Pneumothorax Performed By: #### 1 0070, 57109, 31086, 62241, 45745 ####[facility] [place] [address], [place] Magnesium [Mass/Vol] 2.5 mg/dL Normal 1.9-2.7 [facility] Comment on above: Performed By: #### 1 0070, 11339 ####[facility] [place] [address], [place] Magnesium [Mass/Vol] 1.9 mg/dL Normal 1.9-2.7 [facility] Comment on above: Order Comment: Check Chest Tube Position, ON ARRIVAL TO CVU Performed By: #### 0 0071, 55356, 36207 ####[facility] [place] [address], [place] PERFUSION BLOOD PANELon 01-23 BASE EXCESS 0.0 mmol/L Normal -2.0-3.0 [facility] Comment on above: Performed By: #### 3 1595 #### [facility] [address] [place] [address], [place] Glucose [Mass/Vol] 106 mg/dL High 70-105 [facility] Comment on above: Performed By: #### 3 1595 #### [facility] [address] [place] [address], [place] Hematocrit (Bld) [Volume fraction] 28 % Low 38-51 [facility] Comment on above: Performed By: #### 3 1595 #### [facility] [address] [place] [address], [facility] Hemoglobin (Bld) [Mass/Vol] 9.5 g/dL Low 12.0-17.0 [facility] Comment on above: Performed By: #### 3 1595 #### [facility] [address] [place] [address], [facility] IONIZED CALCIUM 1.23 mmol/L Normal 1.12-1.32 [facility] Comment on above: Performed By: #### 3 1595 #### [facility] [address] [place] [address], [facility] Oxygen (Bld) [Partial pressure] 425.0 mm[Hg] High 80.0-105.0 [facility] Comment on above: Performed By: #### 3 1595 #### [facility] [address] [place] [address], [facility] PCO2 46.5 mmHg High 35.0-45.0 [facility] Comment on above: Performed By: #### 3 1595 #### [facility] [address] [place] [address], [facility] pH (Bld) 7.36 [pH] Normal 7.35-7.45 [facility] Comment on above: Performed By: #### 3 1595 #### [facility] [address] [place] [address], [facility] Potassium [Moles/Vol] 4.0 mmol/L Normal 3.5-4.9 [facility] Comment on above: Performed By: #### 3 1595 #### [facility] [address] [place] [address], [place] Sodium [Moles/Vol] 143 mmol/L Normal 138-146 [facility] Comment on above: Performed By: #### 3 1595 #### [facility] [address] [place] [address], [facility] BASE EXCESS 1.0 mmol/L Normal -2.0-3.0 [facility] Comment on above: Performed By: #### 8 5499 #### [facility] [address] [place] [address], [facility] Glucose [Mass/Vol] 112 mg/dL High 70-105 [facility] Comment on above: Performed By: #### 8 5499 #### [facility] [address] [place] [address], [facility] Hematocrit (Bld) [Volume fraction] 26 % Low 38-51 [facility] Comment on above: Performed By: #### 8 5499 #### [facility] [address] [place] [address], [facility] Hemoglobin (Bld) [Mass/Vol] 8.8 g/dL Low 12.0-17.0 [facility] Comment on above: Performed By: #### 8 5499 #### [facility] [address] [place] [address], [facility] IONIZED CALCIUM 1.30 mmol/L Normal 1.12-1.32 [facility] Comment on above: Performed By: #### 8 5499 #### [facility] [address] [place] [address], [facility] Oxygen (Bld) [Partial pressure] 390.0 mm[Hg] High 80.0-105.0 [facility] Comment on above: Performed By: #### 8 5499 #### [facility] [address] [facility] [place] [address], [facility] PCO2 42.1 mmHg Normal 35.0-45.0 [facility] Comment on above: Performed By: #### 8 5499 #### [facility] [address] [place] [address], [facility] pH (Bld) 7.39 [pH] Normal 7.35-7.45 [facility] Comment on above: Performed By: #### 8 5499 #### [facility] [address] [place] [address], [facility] Potassium [Moles/Vol] 4.1 mmol/L Normal 3.5-4.9 [facility] Comment on above: Performed By: #### 8 5499 #### [facility] [address] [place] [address], [place] Sodium [Moles/Vol] 143 mmol/L Normal 138-146 [facility] Comment on above: Performed By: #### 8 5499 #### [facility] [address] [place] [address], [place] BASE EXCESS 2.0 mmol/L Normal -2.0-3.0 [facility] Comment on above: Performed By: #### 8 5499 #### [facility] [address] [place] [address], [place] Glucose [Mass/Vol] 119 mg/dL High 70-105 [facility] Comment on above: Performed By: #### 8 5499 #### [facility] [address] [place] [address], [place] Hematocrit (Bld) [Volume fraction] 28 % Low 38-51 [facility] Comment on above: Performed By: #### 8 5499 #### [facility] [address] [place] [address], [place] Hemoglobin (Bld) [Mass/Vol] 9.5 g/dL Low 12.0-17.0 [facility] Comment on above: Performed By: #### 8 5499 #### [facility] [address] [place] [address], [place] IONIZED CALCIUM 1.11 mmol/L Low 1.12-1.32 [facility] Comment on above: Performed By: #### 8 5499 #### [facility] [address] [place] [address], [place] Oxygen (Bld) [Partial pressure] 460.0 mm[Hg] High 80.0-105.0 [facility] Comment on above: Performed By: #### 8 [id number] #### [facility] [address] [place] [address], [facility] PCO2 40.0 mmHg Normal 35.0-45.0 [facility] Comment on above: Performed By: #### 8 [id number] #### [facility] [address] [place] [address], [facility] pH (Bld) 7.43 [pH] Normal 7.35-7.45 [facility] Comment on above: Performed By: #### 8 [id number] #### [facility] [address] [place] [address], [facility] Potassium [Moles/Vol] 4.6 mmol/L Normal 3.5-4.9 [facility] Comment on above: Performed By: #### 8 5499 #### [facility] [address] [place] [address], [facility] Sodium [Moles/Vol] 141 mmol/L Normal 138-146 [facility] Comment on above: Performed By: #### 8 [id number] #### [facility] [address] [place] [address], [facility] BASE EXCESS 2.0 mmol/L Normal -2.0-3.0 [facility] Comment on above: Performed By: #### 8 [id number] #### [facility] [address] [place] [address], [place] Glucose [Mass/Vol] 112 mg/dL High 70-105 [facility] Comment on above: Performed By: #### 8 [id number] #### [facility] [address] [place] [address], [place] Hematocrit (Bld) [Volume fraction] 26 % Low 38-51 [facility] Comment on above: Performed By: #### 8 [id number] #### [facility] [address] [place] [address], [facility] Hemoglobin (Bld) [Mass/Vol] 8.8 g/dL Low 12.0-17.0 [facility] Comment on above: Performed By: #### 8 [id number] #### [facility] [address] [place] [address], [facility] IONIZED CALCIUM 1.09 mmol/L Low 1.12-1.32 [facility] Comment on above: Performed By: #### 8 [id number] #### [facility] [address] [place] [address], [facility] Oxygen (Bld) [Partial pressure] 403.0 mm[Hg] High 80.0-105.0 [facility] Comment on above: Performed By: #### 8 [id number] #### [facility] [address] [facility] [place] [address], [facility] PCO2 40.8 mmHg Normal 35.0-45.0 [facility] Comment on above: Performed By: #### 8 [id number] #### [facility] [address] [place] [address], [facility] pH (Bld) 7.43 [pH] Normal 7.35-7.45 [facility] Comment on above: Performed By: #### 8 [id number] #### [facility] [address] [place] [address], [facility] Potassium [Moles/Vol] 4.8 mmol/L Normal 3.5-4.9 [facility] Comment on above: Performed By: #### 8 [id number] #### [facility] [address] [place] [address], [facility] Sodium [Moles/Vol] 141 mmol/L Normal 138-146 [facility] Comment on above: Performed By: #### 8 [id number] #### [facility] [address] [place] [address], [facility] BASE EXCESS 4.0 mmol/L High -2.0-3.0 [facility] Comment on above: Performed By: #### 8 [id number] #### [facility] [address] [place] [address], [facility] Glucose [Mass/Vol] 102 mg/dL Normal 70-105 [facility] Comment on above: Performed By: #### 8 [id number] #### [facility] [address] [place] [address], [facility] Hematocrit (Bld) [Volume fraction] 26 % Low 38-51 [facility] Comment on above: Performed By: #### 8 [id number] #### [facility] [address] [place] [address], [facility] Hemoglobin (Bld) [Mass/Vol] 8.8 g/dL Low 12.0-17.0 [facility] Comment on above: Performed By: #### 8 [id number] #### [facility] [address] [place] [address], [facility] IONIZED CALCIUM 1.04 mmol/L Low 1.12-1.32 [facility] Comment on above: Performed By: #### 8 [id number] #### [facility] [address] [place] [address], [facility] Oxygen (Bld) [Partial pressure] 526.0 mm[Hg] High 80.0-105.0 [facility] Comment on above: Performed By: #### 8 [id number] #### [facility] [address] [place] [address], [facility] PCO2 40.3 mmHg Normal 35.0-45.0 [facility] Comment on above: Performed By: #### 8 [id number] #### [facility] [address] [place] [address], [facility] pH (Bld) 7.46 [pH] High 7.35-7.45 [facility] Comment on above: Performed By: #### 8 [id number] #### [facility] [address] [place] [address], [facility] Potassium [Moles/Vol] 4.8 mmol/L Normal 3.5-4.9 [facility] Comment on above: Performed By: #### 8 [id number] #### [facility] [address] [place] [address], [place] Sodium [Moles/Vol] 140 mmol/L Normal 138-146 [facility] Comment on above: Performed By: #### 8 [id number] #### [facility] [address] [place] [address], [place] BASE EXCESS 0.0 mmol/L Normal -2.0-3.0 [facility] Comment on above: Performed By: #### 8 [id number] #### [facility] [address] [place] [address], [place] Glucose [Mass/Vol] 97 mg/dL Normal 70-105 [facility] Comment on above: Performed By: #### 8 [id number] #### [facility] [address] [place] [address], [facility] Hematocrit (Bld) [Volume fraction] 27 % Low 38-51 [facility] Comment on above: Performed By: #### 8 [id number] #### [facility] [address] [place] [address], [place] Hemoglobin (Bld) [Mass/Vol] 9.2 g/dL Low 12.0-17.0 [facility] Comment on above: Performed By: #### 8 [id number] #### [facility] [address] [place] [address], [place] IONIZED CALCIUM 1.03 mmol/L Low 1.12-1.32 [facility] Comment on above: Performed By: #### 8 [id number] #### [facility] [address] [place] [address], [facility] Oxygen (Bld) [Partial pressure] 49.0 mm[Hg] Normal [facility] Comment on above: Performed By: #### 8 [id number] #### [facility] [address] [place] [address], [facility] PCO2 44.2 mmHg Normal 41.0-51.0 [facility] Comment on above: Performed By: #### 8 [id number] #### [facility] [address] [place] [address], [facility] pH (Bld) 7.37 [pH] Normal 7.31-7.41 [facility] Comment on above: Performed By: #### 8 [id number] #### [facility] [address] [place] [address], [facility] Potassium [Moles/Vol] 4.5 mmol/L Normal 3.5-4.9 [facility] Comment on above: Performed By: #### 8 [id number] #### [facility] [address] [place] [address], [facility] Sodium [Moles/Vol] 141 mmol/L Normal 138-146 [facility] Comment on above: Performed By: #### 8 [id number] #### [facility] [address] [facility] [place] [address], [facility] BASE EXCESS -3.0 mmol/L Low -2.0-3.0 [facility] Comment on above: Performed By: #### 8 [id number] #### [facility] [address] [place] [address], [facility] Glucose [Mass/Vol] 115 mg/dL High 70-105 [facility] Comment on above: Performed By: #### 8 5499 #### [facility] [address] [place] [address], [facility] Hematocrit (Bld) [Volume fraction] 34 % Low 38-51 [facility] Comment on above: Performed By: #### 8 5499 #### [facility] [address] [place] [address], [facility] Hemoglobin (Bld) [Mass/Vol] 11.6 g/dL Low 12.0-17.0 [facility] Comment on above: Performed By: #### 8 5499 #### [facility] [address] [place] [address], [facility] IONIZED CALCIUM 1.27 mmol/L Normal 1.12-1.32 [facility] Comment on above: Performed By: #### 8 5499 #### [facility] [address] [place] [address], [facility] Oxygen (Bld) [Partial pressure] 249.0 mm[Hg] High 80.0-105.0 [facility] Comment on above: Performed By: #### 8 5499 #### [facility] [address] [facility] [place] [address], [facility] PCO2 51.3 mmHg High 35.0-45.0 [facility] Comment on above: Performed By: #### 8 5499 #### [facility] [address] [facility] [place] [address], [facility] pH (Bld) 7.29 [pH] Low 7.35-7.45 [facility] Comment on above: Performed By: #### 8 5499 #### [facility] [address] [place] [address], [facility] Potassium [Moles/Vol] 3.9 mmol/L Normal 3.5-4.9 [facility] Comment on above: Performed By: #### 8 5499 #### [facility] [address] [place] [address], [facility] Sodium [Moles/Vol] 142 mmol/L Normal 138-146 [facility] Comment on above: Performed By: #### 8 5499 #### [facility] [address] [place] [address], [facility] BASE EXCESS -1.0 mmol/L Normal -2.0-3.0 [facility] Comment on above: Performed By: #### 3 1595 #### [facility] [address] [place] [address], [facility] Glucose [Mass/Vol] 104 mg/dL Normal 70-105 [facility] Comment on above: Performed By: #### 3 1595 #### [facility] [address] [place] [address], [facility] Hematocrit (Bld) [Volume fraction] 37 % Low 38-51 [facility] Comment on above: Performed By: #### 3 1595 #### [facility] [address] [place] [address], [facility] Hemoglobin (Bld) [Mass/Vol] 12.6 g/dL Normal 12.0-17.0 [facility] Comment on above: Performed By: #### 3 1595 #### [facility] [address] [place] [address], [facility] IONIZED CALCIUM 1.34 mmol/L High 1.12-1.32 [facility] Comment on above: Performed By: #### 3 1595 #### [facility] [address] [place] [address], [facility] Oxygen (Bld) [Partial pressure] 187.0 mm[Hg] High 80.0-105.0 [facility] Comment on above: Performed By: #### 3 1595 #### [facility] [address] [place] [address], [facility] PCO2 45.2 mmHg High 35.0-45.0 [facility] Comment on above: Performed By: #### 3 1595 #### [facility] [address] [place] [address], [facility] pH (Bld) 7.35 [pH] Normal 7.35-7.45 [facility] Comment on above: Performed By: #### 3 1595 #### [facility] [address] [place] [address], [facility] Potassium [Moles/Vol] 4.2 mmol/L Normal 3.5-4.9 [facility] Comment on above: Performed By: #### 3 1595 #### [facility] [address] [place] [address], [facility] Sodium [Moles/Vol] 141 mmol/L Normal 138-146 [facility] Comment on above: Performed By: #### 3 1595 #### [facility] [address] [facility] [place] [address], [facility] PHOSPHORUS BLOODon 2 Phosphate [Mass/Vol] 4.1 mg/dL Normal 2.5-5.0 [facility] Comment on above: Order Comment: Evalu ate for Pneumothorax Performed By: #### 1 0070, 62300, 17684, 26391, 47187 ####[facility] [place] [address], [facility] Phosphate [Mass/Vol] 3.9 mg/dL Normal 2.5-5.0 [facility] Comment on above: Order Comment: Check Chest Tube Position, ON ARRIVAL TO CVU Performed By: #### 0 0071, 59015, 42287 ####[facility] [place] [address], [facility] PLATELET APHERESIS 1 UNITon 02-20-2022 PRODUCT CODE 1 E8343 Normal [facility] Comment on above: Performed By: #### 3 4 #### [facility] [address] [place] [address], [facility] PRODUCT STATUS 1 PT Normal [facility] Comment on above: Result Comment: Resu lt changed by IF on 02/20/2022 11:57. The previous value was XM. Result changed by IF on 02/21/2022 00:30. The previous value was IS. Performed By: #### 3 2043 #### [facility] [address] [place] [address], [facility] UNIT ABO 1 A Normal [facility] Comment on above: Performed By: #### 3 2043 #### [facility] [address] [place] [address], [facility] UNIT ID 1 [id number] Normal [facility] Comment on above: Performed By: #### 3 2043 #### [facility] [address] [place] [address], [facility] UNIT RH 1 Positive Normal [facility] Comment on above: Performed By: #### 3 2043 #### [facility] [address] [place] [address], [facility] PRODUCT CODE 1 E8343 Normal [facility] Comment on above: Performed By: #### 3 2043 #### [facility] [address] [place] [address], [facility] PRODUCT STATUS 1 RE Normal [facility] Comment on above: Result Comment: Resu lt changed by IF on 02/21/2022 08:31. The previous value was XM. Performed By: #### 3 2043 #### [facility] [address] [place] [address], [facility] UNIT ABO 1 A Normal [facility] Comment on above: Performed By: #### 3 2043 #### [facility] [address] [place] [address], [facility] UNIT ID 1 [id number] Normal [facility] Comment on above: Performed By: #### 3 2043 #### [facility] [address] [place] [address], [facility] UNIT RH 1 Positive Normal [facility] Comment on above: Performed By: #### 3 2043 #### [facility] [address] [place] [address], [facility] PLATELET FUNCTION SCREENon 0 02-20-2022 COLLAGEN/ADP 101 sec Normal 56-110 [facility] Comment on above: Result Comment: This [...] be warranted. Performed By: #### 8 4505 ####[facility] [facility] COLLAGEN/EPINEPHRINE 174 sec High 82-159 [facility] Comment on above: Performed By: #### 8 4505 ####[facility] [place] [address], [facility] POC GLUCOSE LABon 02-20-2022 Glucose [Mass/Vol] 141 mg/dL High 70-100 [facility] Comment on above: Performed By: #### 8 5499 #### [facility] [address] [place] [address], [facility] Glucose [Mass/Vol] 122 mg/dL High 70-100 [facility] Comment on above: Performed By: #### 3 1595 #### [facility] [address] [place] [address], [facility] Glucose [Mass/Vol] 101 mg/dL High 70-100 [facility] Comment on above: Performed By: #### 3 1595 #### [facility] [address] [place] [address], [facility] POC SARS COV2 IDon SARS-CoV-2 (COVID-19) RNA JJ+probe Ql (Unsp spec) Negative Normal NEGATIVE [facility] Comment on above: Result Comment: ID [...] Accreditation. Performed By: #### 3 [address] #### [place] [address], [facility] PORTABLE CHEST 1 VIEWon 01-23 PORTABLE CHEST 1 VIEW [facility] Department of Radiology [address] [place] [id number] ======== Patient Name: IGNACIO AMIN : 1945 Sex: M Age: Race: White Pt. Location: [id number] Patient Status: I Ordered Date: 02/20/2022 12:30:00 [...] left Electronically signed: Quinten Nagel. Transcribed by: [email or web address], User Resident: Electronically Signed by: QUINTEN NAGEL @ 02/20/2022 03:53 PM Normal [facility] Comment on above: Order Comment: Check Chest Tube Position, ON ARRIVAL TO CVU PROTHROMBIN TIMEon 2 INR Coag (PPP) [Relative time] 1.34 {INR} High 0.91-1.16 [facility] Comment on above: Order Comment: Check [...] CHEST 1995;108:231S-246S. Performed By: #### 5 6101, 57375 ####[facility] [place] [address], [facility] PT Coag (PPP) [Time] 16.4 s High 12.3-14.8 [facility] Comment on above: Order Comment: Check Chest Tube Position, ON ARRIVAL TO CVU Result Comment: ALL RESULTS MUST BE INTERPRETED WITH RESPECT TO BLOOD DRAWING ARTIFACT OR DILUTION ERROR OF ANTICOAGULANT AT THE TIME OF SAMPLING. Performed By: #### 5 6101, 03324 ####[facility] [place] [address], [facility] INR Coag (PPP) [Relative time] 1.72 {INR} High 0.91-1.16 [facility] Comment on above: Result Comment: ACCC P [...] CHEST 1995;108:231S-246S. Performed By: #### 5 6101, 96047, 56714 ####[facility] [facility] [place] [address], [place] PT Coag (PPP) [Time] 19.9 s High 12.3-14.8 [facility] Comment on above: Result Comment: ALL RESULTS MUST BE INTERPRETED WITH RESPECT TO BLOOD DRAWING ARTIFACT OR DILUTION ERROR OF ANTICOAGULANT AT THE TIME OF SAMPLING. Performed By: #### 5 6101, 10417, 88553 ####[facility] [facility] [place] [address], [facility] INR Coag (PPP) [Relative time] 1.07 {INR} Normal 0.91-1.16 [facility] Comment on above: Order Comment: Check [...] CHEST 1995;108:231S-246S. Performed By: #### 3 0477, 68380, 76275 ####[facility] [facility] [place] [address], [facility] PT Coag (PPP) [Time] 13.9 s Normal 12.3-14.8 [facility] Comment on above: Order Comment: Check Chest Tube Position, ON ARRIVAL TO CVU Result Comment: ALL RESULTS MUST BE INTERPRETED WITH RESPECT TO BLOOD DRAWING ARTIFACT OR DILUTION ERROR OF ANTICOAGULANT AT THE TIME OF SAMPLING. Performed By: #### 3 5277, 63350, 95681 ####[facility] [facility].[address] TROPONIN-Ion 02-20-2022 Troponin I.cardiac [Mass/Vol] 1.58 ng/mL Critically high 0.00-0.04 [facility] Comment on above: Order Comment: Evalu ate for Pneumothorax Result Comment: M-TR OPONIN INITIAL CRITICAL HIGH; RESPUN AND RETESTED M-CRITICAL RESULT(S) REVIEWED, CALLED TO AND READ BACK BY VINH MARADIAGA RN ON 02/20/2022 AT 17:27 REFERENCE RANGES: 0.00 - 0.04 ng/ml NORMAL 0.05 - 0.50 ng/ml INDETERMINATE > 0.50 ng/ml CONSISTENT WITH AN M.I. Performed By: #### 1 0070, 11767, 04011, 58164, 55258 ####[facility] UFH HEPARIN ASSAYon 02-21-20 22 UNFRACTIONATED HEPARIN 0.44 IU/mL Normal 0.30-0.70 [facility] Comment on above: Result Comment: Andria roxaban and Apixaban will interfere with the anti Xa assay used to monitor UFH and LMWH. Performed By: #### 3 0477, 42031, 61195 ####[facility] CBC COMPLETE BLOOD COUNTon 0 02-19-2022 Erythrocyte distribution width (RBC) [Ratio] 13.7 % Normal 11.5-15.0 [facility] Comment on above: Order Comment: No: D o not add to previous draw Performed By: #### 5 0608 #### [facility] [address] Hematocrit (Bld) [Volume fraction] 37.9 % Low 39.0-50.0 [facility] Comment on above: Order Comment: No: D o not add to previous draw Performed By: #### 5 0608 #### [facility] [address] [facility]. [address] Hemoglobin (Bld) [Mass/Vol] 13.0 g/dL Normal 13.0-17.0 [facility] Comment on above: Order Comment: No: D o not add to previous draw Performed By: #### 5 0608 #### [facility] [address] [place] [address], [facility] IMM PLATELET FRAC 5.4 % Normal 0.8-6.3 [facility] Comment on above: Order Comment: No: D o not add to previous draw Performed By: #### 5 0608 #### [facility] [address] [place] [address], [facility] MCH (RBC) [Entitic mass] 31.2 pg Normal 27.0-33.0 [facility] Comment on above: Order Comment: No: D o not add to previous draw Performed By: #### 5 0608 #### [facility] [address] [facility]. [address] MCHC (RBC) [Mass/Vol] 34.3 g/dL Normal 32.0-35.0 [facility] Comment on above: Order Comment: No: D o not add to previous draw Performed By: #### 5 0608 #### [facility] [address] [facility] [place] [address], [facility] MCV (RBC) [Entitic vol] 90.9 fL Normal 82.0-98.0 [facility] Comment on above: Order Comment: No: D o not add to previous draw Performed By: #### 5 0608 #### [facility] [address] [place] [address], [facility] Nucleated RBC/100 WBC (Bld) [Ratio] 0 % Normal 0-0 [facility] Comment on above: Order Comment: No: D o not add to previous draw Performed By: #### 5 0608 #### [facility] [address] [facility] [address], [facility] PLAT CNT 123 10*3/uL Low 150-400 [facility] Comment on above: Order Comment: No: D o not add to previous draw Performed By: #### 5 0608 #### [facility] [address] [place] [address], [place] RBC (Bld) [#/Vol] 4.17 10*6/uL Low 4.20-5.70 [facility] Comment on above: Order Comment: No: D o not add to previous draw Performed By: #### 5 0608 #### [facility] [address] [place] [address], [place] WBC (Bld) [#/Vol] 4.86 10*3/uL Normal 4.00-10.60 [facility] Comment on above: Order Comment: No: D o not add to previous draw Performed By: #### 5 0608 #### [facility] [address] [place] [address], [facility] RBC'S 4 UNITSon 02-19-2022 CROSSMATCH INTERP 1 COMP Normal [facility] Comment on above: Order Comment: Check Chest Tube Position, ON ARRIVAL TO CVU Performed By: #### 8 6004 ####[facility] [facility] [place] [address], [facility] CROSSMATCH INTERP 2 COMP Normal [facility] Comment on above: Order Comment: Check Chest Tube Position, ON ARRIVAL TO CVU Performed By: #### 8 6004 ####[facility] [place] [address], [place] CROSSMATCH INTERP 3 COMP Normal [facility] Comment on above: Order Comment: Check Chest Tube Position, ON ARRIVAL TO CVU Performed By: #### 8 6004 ####[facility] [place] [address], [place] CROSSMATCH INTERP 4 COMP Normal [facility] Comment on above: Order Comment: Check Chest Tube Position, ON ARRIVAL TO CVU Performed By: #### 8 6004 ####[facility] [place] [address], [facility] PRODUCT CODE [address] [facility] Comment on above: Order Comment: Check Chest Tube Position, ON ARRIVAL TO CVU Performed By: #### 8 6004 ####[facility] [place] [address], [facility] PRODUCT CODE 2 E0685 Normal [facility] Comment on above: Order Comment: Check Chest Tube Position, ON ARRIVAL TO CVU Performed By: #### 8 6004 ####[facility] [place] [address], [facility] PRODUCT CODE 3 E0686 Normal [facility] Comment on above: Order Comment: Check Chest Tube Position, ON ARRIVAL TO CVU Performed By: #### 8 6004 ####[facility] [place] [address], [facility] PRODUCT CODE 4 E0336 Normal [facility] Comment on above: Order Comment: Check Chest Tube Position, ON ARRIVAL TO CVU Performed By: #### 8 6004 ####[facility] [place] [address], [facility] PRODUCT STATUS 1 PT Normal [facility] Comment on above: Order Comment: Check [...] was IS. Performed By: #### 8 6004 ####[facility] [place] [address], [facility] PRODUCT STATUS 2 RE Normal [facility] Comment on above: Order Comment: Check [...] was XX. Performed By: #### 8 6004 ####[facility] [facility].[address] PRODUCT STATUS 3 PT Normal [facility] Comment on above: Order Comment: Check [...] was IS. Performed By: #### 8 6004 ####[facility] [facility].[address] PRODUCT STATUS 4 RE Normal [facility] Comment on above: Order Comment: Check [...] was XX. Performed By: #### 8 6004 ####[facility] [place] [address], [facility] UNIT ABO 1 O Normal [facility] Comment on above: Order Comment: Check Chest Tube Position, ON ARRIVAL TO CVU Performed By: #### 8 6004 ####[facility] [place] [address], [facility] UNIT ABO [address] [facility] Comment on above: Order Comment: Check Chest Tube Position, ON ARRIVAL TO CVU Performed By: #### 8 6004 ####[facility] [place] [address], [facility] UNIT ABO 3 O Normal [facility] Comment on above: Order Comment: Check Chest Tube Position, ON ARRIVAL TO CVU Performed By: #### 8 6004 ####[facility] [place] [address], [facility] UNIT ABO 4 O Normal [facility] Comment on above: Order Comment: Check Chest Tube Position, ON ARRIVAL TO CVU Performed By: #### 8 6004 ####[facility], [place] [address] [place] [address] UNIT ID [address] [id number] Normal [facility] Comment on above: Order Comment: Check Chest Tube Position, ON ARRIVAL TO CVU Performed By: #### 8 6004 ####[facility] [place] [address], [facility] UNIT ID 2 [id number] Normal [facility] Comment on above: Order Comment: Check Chest Tube Position, ON ARRIVAL TO CVU Performed By: #### 8 6004 ####[facility] [place] [address], [facility] UNIT ID 3 [id number] Normal [facility] Comment on above: Order Comment: Check Chest Tube Position, ON ARRIVAL TO CVU Performed By: #### 8 6004 ####[facility] [place] [address], [facility] UNIT ID 4 [id number] Normal [facility] Comment on above: Order Comment: Check Chest Tube Position, ON ARRIVAL TO CVU Performed By: #### 8 6004 ####[facility] [place] [address], [facility] UNIT RH 1 Positive Normal [facility] Comment on above: Order Comment: Check Chest Tube Position, ON ARRIVAL TO CVU Performed By: #### 8 6004 ####[facility] [place] [address], [facility] UNIT RH 2 Positive Normal [facility] Comment on above: Order Comment: Check Chest Tube Position, ON ARRIVAL TO CVU Performed By: #### 8 6004 ####[facility] [place] [address], [facility] UNIT RH 3 Positive Normal [facility] Comment on above: Order Comment: Check Chest Tube Position, ON ARRIVAL TO CVU Performed By: #### 8 6004 ####[facility] [place] [address], [facility] UNIT RH 4 Positive Normal [facility] Comment on above: Order Comment: Check Chest Tube Position, ON ARRIVAL TO CVU Performed By: #### 8 6004 ####[facility] [place] [address], [facility] TYPE AND SCREENon 02-19-2022 ABO INTERPRETATION O Normal [facility] Comment on above: Performed By: #### 3 4 #### [facility] [address] [place] [address], [facility] RH INTERPRETATION Positive Normal [facility] Comment on above: Performed By: #### 3 2043 #### [facility] [address] [place] [address], [facility] UFH HEPARIN ASSAYon 02-20-20 UNFRACTIONATED HEPARIN 0.73 IU/mL High 0.30-0.70 [facility] Comment on above: Result Comment: Chambers roxaban and Apixaban will interfere with the anti Xa assay used to monitor UFH and LMWH. Performed By: #### 3 0477 ####[facility] [facility] UNFRACTIONATED HEPARIN 0.78 IU/mL High 0.30-0.70 [facility] Comment on above: Result Comment: Andria roxaban and Apixaban will interfere with the anti Xa assay used to monitor UFH and LMWH. Performed By: #### 3 0477 ####[facility] [place] [address], [facility] UNFRACTIONATED HEPARIN 0.76 IU/mL High 0.30-0.70 [facility] Comment on above: Result Comment: Chambers roxaban and Apixaban will interfere with the anti Xa assay used to monitor UFH and LMWH. Performed By: #### 3 0477 ####[address] BASIC METABOLIC PANELon 08-2 Calcium [Mass/Vol] 9.1 mg/dL Normal 8.6-10.3 [facility] Comment on above: Order Comment: Evalu ate for Pneumothorax Performed By: #### 1 69, 79496 ####[place] [id number] [place] [address], [facility] Chloride [Moles/Vol] 109 mmol/L High 98-107 [facility] Comment on above: Order Comment: Evalu ate for Pneumothorax Performed By: #### 1 69, 76104 ####[place] [id number] [place] [address], [facility] CO2 [Moles/Vol] 27 mmol/L Normal 21-31 [facility] Comment on above: Order Comment: Evalu ate for Pneumothorax Performed By: #### 1 69, 25018 ####[place] [id number] [place] [address], [facility] Creatinine [Mass/Vol] 0.86 mg/dL Normal 0.70-1.30 [facility] Comment on above: Order Comment: Evalu ate for Pneumothorax Performed By: #### 1 69, 78492 ####[facility] [place] [address], [facility] GFR/1.73 sq M.predicted among non-blacks MDRD (S/P/Bld) [Vol rate/Area] mL/min/{1.73_m2} Normal >60 [facility] Comment on above: Order Comment: Evalu ate for Pneumothorax Result Comment: [facility]'s estimated glomerular filtration rate (eGFR) will [...] of individuals. Performed By: #### 1 69, 11453 ####[facility] [place] [address], [facility] Glucose [Mass/Vol] 92 mg/dL Normal 70-100 [facility] Comment on above: Order Comment: Evalu ate for Pneumothorax Performed By: #### 1 69, 95791 ####[facility] [place] [address], [facility] Potassium [Moles/Vol] 4.0 mmol/L Normal 3.5-5.1 The [facility] Comment on above: Order Comment: Evalu ate for Pneumothorax Performed By: #### 1 69, [id number] ####[facility] [place] [address], [place] Sodium [Moles/Vol] 141 mmol/L Normal 136-145 [facility] Comment on above: Order Comment: Evalu ate for Pneumothorax Performed By: #### 1 69, [id number] ####[facility] [place] [address], [facility] Urea nitrogen [Mass/Vol] 23 mg/dL Normal 7-25 [facility] Comment on above: Order Comment: Evalu ate for Pneumothorax Performed By: #### 1 0070, 76010 ####[facility] CBC COMPLETE BLOOD COUNTon 0 02-18-2022 Erythrocyte distribution width (RBC) [Ratio] 13.7 % Normal 11.5-15.0 [facility] Comment on above: Order Comment: No: D o not add to previous draw Performed By: #### 5 0608 #### [facility] [address] [place] [address], [facility] Hematocrit (Bld) [Volume fraction] 40.8 % Normal 39.0-50.0 [facility] Comment on above: Order Comment: No: D o not add to previous draw Performed By: #### 5 0608 #### [facility] [address] [facility] Hemoglobin (Bld) [Mass/Vol] 13.7 g/dL Normal 13.0-17.0 [facility] Comment on above: Order Comment: No: D o not add to previous draw Performed By: #### 5 0608 #### [facility] [address] [facility] [place] [address], [facility] IMM PLATELET FRAC 6.8 % High 0.8-6.3 [facility] Comment on above: Order Comment: No: D o not add to previous draw Performed By: #### 5 0608 #### [facility] [address] [place] [id number], [facility] MCH (RBC) [Entitic mass] 31.4 pg Normal 27.0-33.0 [facility] Comment on above: Order Comment: No: D o not add to previous draw Performed By: #### 5 0608 #### [facility] [address] [place] [id number], [facility] MCHC (RBC) [Mass/Vol] 33.6 g/dL Normal 32.0-35.0 [facility] Comment on above: Order Comment: No: D o not add to previous draw Performed By: #### 5 0608 #### [facility] [address] [place] [address], [facility] MCV (RBC) [Entitic vol] 93.6 fL Normal 82.0-98.0 [facility] Comment on above: Order Comment: No: D o not add to previous draw Performed By: #### 5 0608 #### [facility] [address] [facility] [place] [address], [facility] Nucleated RBC/100 WBC (Bld) [Ratio] 0 % Normal 0-0 [facility] Comment on above: Order Comment: No: D o not add to previous draw Performed By: #### 5 0608 #### [facility] [address] [facility] [place] [place] [address], [facility] PLAT CNT 130 10*3/uL Low 150-400 [facility] Comment on above: Order Comment: No: D o not add to previous draw Performed By: #### 5 0608 #### [facility] [address] [place] [address], [facility] RBC (Bld) [#/Vol] 4.36 10*6/uL Normal 4.20-5.70 [facility] Comment on above: Order Comment: No: D o not add to previous draw Performed By: #### 5 0608 #### [facility] [address] [facility] [place] [place] [address], [facility] WBC (Bld) [#/Vol] 6.17 10*3/uL Normal 4.00-10.60 [facility] Comment on above: Order Comment: No: D o not add to previous draw Performed By: #### 5 0608 #### [facility] [address] [place] [address], [facility] MAGNESIUM BLOODon 02-18-2022 Magnesium [Mass/Vol] 2.0 mg/dL Normal 1.9-2.7 [facility] Comment on above: Order Comment: Evalu ate for Pneumothorax Performed By: #### 1 0070, 23639 ####[facility] UFH HEPARIN ASSAYon 02-19-20 UNFRACTIONATED HEPARIN 0.78 IU/mL High 0.30-0.70 [facility] Comment on above: Result Comment: Chambers roxaban and Apixaban will interfere with the anti Xa assay used to monitor UFH and LMWH. Performed By: #### 3 0477 ####[facility] POC SARS COV2 ANTIGEN NEGATI VEon 02-17-2022 POC SARS COV2 ANTIGEN NEG Negative Normal NEGATIVE [facility] Comment on above: Result Comment: Nega [...] antigen from SARS-CoV-2 in direct nasopharyngeal swab (LEATHER STITCHER) specimens from individuals who are suspected of [...] Accreditation. Performed By: #### 3 2044 #### [facility] [address] APTTon 02-16-2022 aPTT Coag (Bld) [Time] 33.3 s Normal 25.0-35.0 [facility] Comment on above: Order Comment: Check [...] THIS PURPOSE. Performed By: #### 5 7307, [id number] ####[facility] CBC COMPLETE BLOOD COUNTon 02-16-2022 Erythrocyte distribution width (RBC) [Ratio] 13.8 % Normal 11.5-15.0 [facility] Comment on above: Order Comment: No: D o not add to previous draw Performed By: #### 5 0608 #### [facility] [address] Hematocrit (Bld) [Volume fraction] 40.2 % Normal 39.0-50.0 [facility] Comment on above: Order Comment: No: D o not add to previous draw Performed By: #### 5 0608 #### [facility] [address] [place] [address], [facility] Hemoglobin (Bld) [Mass/Vol] 13.5 g/dL Normal 13.0-17.0 [facility] Comment on above: Order Comment: No: D o not add to previous draw Performed By: #### 5 0608 #### [facility] [address] [place] [address], [facility] IMM PLATELET FRAC 5.7 % Normal 0.8-6.3 [facility] Comment on above: Order Comment: No: D o not add to previous draw Performed By: #### 5 0608 #### [facility] [address] [place] [address], [facility] MCH (RBC) [Entitic mass] 31.0 pg Normal 27.0-33.0 [facility] Comment on above: Order Comment: No: D o not add to previous draw Performed By: #### 5 0608 #### [facility] [address] [place] [id number], [facility] MCHC (RBC) [Mass/Vol] 33.6 g/dL Normal 32.0-35.0 [facility] Comment on above: Order Comment: No: D o not add to previous draw Performed By: #### 5 0608 #### [facility] [address] [place] [address], [facility] MCV (RBC) [Entitic vol] 92.4 fL Normal 82.0-98.0 [facility] Comment on above: Order Comment: No: D o not add to previous draw Performed By: #### 5 0608 #### [facility] [address] [place] [address], [facility] Nucleated RBC/100 WBC (Bld) [Ratio] 0 % Normal 0-0 [facility] Comment on above: Order Comment: No: D o not add to previous draw Performed By: #### 5 0608 #### [facility] [address] [place] [address], [facility] PLAT CNT 128 10*3/uL Low 150-400 [facility] Comment on above: Order Comment: No: D o not add to previous draw Performed By: #### 5 0608 #### [facility] [address] [place] [id number], [facility] RBC (Bld) [#/Vol] 4.35 10*6/uL Normal 4.20-5.70 [facility] Comment on above: Order Comment: No: D o not add to previous draw Performed By: #### 5 0608 #### [facility] [address] [place] [address], [facility] WBC (Bld) [#/Vol] 6.37 10*3/uL Normal 4.00-10.60 [facility] Comment on above: Order Comment: No: D o not add to previous draw Performed By: #### 5 0608 #### [facility] [address] [place] [address], [facility] COMP METABOLIC PANELon 02-16 Albumin [Mass/Vol] 3.5 g/dL Normal 3.5-5.7 [facility] Comment on above: Order Comment: No: D o not add to previous draw Criteria for reflexing a culture was not met. Please call the lab at [phone] within 24 hours of collection time if culture is needed Performed By: #### 3 0965 #### [facility] [address] [place] [address], [facility] ALKALINE PHOSPH 63 IU/L Normal 34-104 [facility] Comment on above: Order Comment: No: D o not add to previous draw Criteria for reflexing a culture was not met. Please call the lab at [phone] within 24 hours of collection time if culture is needed Performed By: #### 3 0965 #### [facility] [address] [place] [address], [facility] ALT [Catalytic activity/Vol] 14 U/L Normal 7-52 [facility] Comment on above: Order Comment: No: D o not add to previous draw Criteria for reflexing a culture was not met. Please call the lab at [phone] within 24 hours of collection time if culture is needed Performed By: #### 3 0965 #### [facility] [address] [place] [address], [place] AST [Catalytic activity/Vol] 13 U/L Normal 13-39 [facility] Comment on above: Order Comment: No: D o not add to previous draw Criteria for reflexing a culture was not met. Please call the lab at [phone] within 24 hours of collection time if culture is needed Performed By: #### 3 0965 #### [facility] [address] [place] [address], [place] Bilirubin [Mass/Vol] 0.7 mg/dL Normal 0.3-1.0 [facility] Comment on above: Order Comment: No: D o not add to previous draw Criteria for reflexing a culture was not met. Please call the lab at [phone] within 24 hours of collection time if culture is needed Performed By: #### 3 0965 #### [facility] [address] [place] [address], [place] Calcium [Mass/Vol] 8.9 mg/dL Normal 8.6-10.3 [facility] Comment on above: Order Comment: No: D o not add to previous draw Criteria for reflexing a culture was not met. Please call the lab at [phone] within 24 hours of collection time if culture is needed Performed By: #### 3 0965 #### [facility] [address] [place] [address], [facility] Chloride [Moles/Vol] 108 mmol/L High 98-107 [facility] Comment on above: Order Comment: No: D o not add to previous draw Criteria for reflexing a culture was not met. Please call the lab at [phone] within 24 hours of collection time if culture is needed Performed By: #### 3 0965 #### [facility] [address] [place] [address], [place] CO2 [Moles/Vol] 24 mmol/L Normal 21-31 [facility] Comment on above: Order Comment: No: D o not add to previous draw Criteria for reflexing a culture was not met. Please call the lab at [phone] within 24 hours of collection time if culture is needed Performed By: #### 3 0965 #### [facility] [address] [place] [address], [place] Creatinine [Mass/Vol] 0.91 mg/dL Normal 0.70-1.30 [facility] Comment on above: Order Comment: No: D o not add to previous draw Criteria for reflexing a culture was not met. Please call the lab at [phone] within 24 hours of collection time if culture is needed Performed By: #### 3 0965 #### [facility] [address] [place] [address], [place] GFR/1.73 sq M.predicted among non-blacks MDRD (S/P/Bld) [Vol rate/Area] mL/min/{1.73_m2} Normal >60 [facility] Comment on above: Order Comment: No: D o not add to previous draw Criteria for reflexing a culture was not met. Please call the lab at [phone] within 24 hours of collection time if culture is needed Result Comment: [facility]'s estimated glomerular filtration rate (eGFR) will [...] individuals. Performed By: #### 3 0965 #### [facility] [address] [place] [address], [place] Glucose [Mass/Vol] 97 mg/dL Normal 70-100 [facility] Comment on above: Order Comment: No: D o not add to previous draw Criteria for reflexing a culture was not met. Please call the lab at [phone] within 24 hours of collection time if culture is needed Performed By: #### 3 0965 #### [facility] [address] [place] [address], [place] Potassium [Moles/Vol] 4.1 mmol/L Normal 3.5-5.1 [facility] Comment on above: Order Comment: No: D o not add to previous draw Criteria for reflexing a culture was not met. Please call the lab at [phone] within 24 hours of collection time if culture is needed Performed By: #### 3 0965 #### [facility] [address] [place] [address], [place] Protein [Mass/Vol] 5.8 g/dL Low 6.0-8.3 [facility] Comment on above: Order Comment: No: D o not add to previous draw Criteria for reflexing a culture was not met. Please call the lab at [phone] within 24 hours of collection time if culture is needed Performed By: #### 3 0965 #### [facility] [address] Sodium [Moles/Vol] 139 mmol/L Normal 136-145 [facility] Comment on above: Order Comment: No: D o not add to previous draw Criteria for reflexing a culture was not met. Please call the lab at [phone] within 24 hours of collection time if culture is needed Performed By: #### 3 0965 #### [address] Urea nitrogen [Mass/Vol] 26 mg/dL High 7-25 [facility] Comment on above: Order Comment: No: D o not add to previous draw Criteria for reflexing a culture was not met. Please call the lab at [phone] within 24 hours of collection time if culture is needed Performed By: #### 3 0965 #### [address] CTA CHESTon 02-16-2022 CTA CHEST [facility] Department of Radiology [address] [place] [id number] ======== Patient Name: IGNACIO AMIN : 1945 Sex: M Age: Race: White Pt. Location: [address] [place] [address] Patient Status: O Ordered Date: 02/16/2022 9:45:00 [...] achievable. Electronically signed: Mahesh Sanchez. Transcribed by: [email or web address], User Resident: Electronically Signed by: MAHESH SANCHEZ @ 02/20/2022 08:38 AM Normal [facility] Comment on above: Order Comment: Check Chest Tube Position, ON ARRIVAL TO CVU Cardiovascular Lab Reporton 02-16-[address] [facility] Patient Name: [facility] Sarita MR #: [id number] Department of Physician: Nora Garcia M.D. Division of Service Date: 02/15/2022 Cardiology Birthdate: 1945 Adult Cardiovascular Room #: 3AB [id number] [facility] [address]. [place] [address] Cardiovascular Laboratory Report FINAL IMPRESSIONS: 1. Severe, [...] the left radial artery was obtained. A 6-Wallisian 11 cm sheath was inserted without difficulty. [...] coronary arteries. 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 Date Trans: 02/16/2022 05:09 Lydia/anirudh [id number] cc: Elliot Rosales M.D. [address] [place] [address] Normal [facility] DIRECT BILIon 02-16-2022 Bilirubin.direct [Mass/Vol] 0.1 mg/dL Normal 0.0-0.2 [facility] Comment on above: Order Comment: No: D o not add to previous draw Criteria for reflexing a culture was not met. Please call the lab at [phone] within 24 hours of collection time if culture is needed Performed By: #### 3 0965 #### [facility] [address] [place] [address], [facility] HEMOGLOBIN A1Con 02-16-2022 Glucose [Moles/Vol] 120 mmol/L Normal [facility] Comment on above: Order Comment: Check Chest Tube Position, ON ARRIVAL TO CVU Performed By: #### 3 1791 ####[facility] [place] [address], [facility] HbA1c (Bld) [Mass fraction] 5.8 % Normal 4.0-6.0 [facility] Comment on above: Order Comment: Check Chest Tube Position, ON ARRIVAL TO CVU Performed By: #### 3 1791 ####[facility] [place] [address], [facility] LIPID PROFILEon 02-16-2022 Cholesterol [Mass/Vol] 110 mg/dL Low 120-200 [facility] Comment on above: Order Comment: No: [...] Risk Performed By: #### 3 0965 #### [facility] [address] [facility] [place] [address], [facility] Cholesterol in HDL [Mass/Vol] 30 mg/dL Normal 23-92 [facility] Comment on above: Order Comment: No: [...] Risk Performed By: #### 3 0965 #### [facility] [address] [place] [address], [facility] Cholesterol in LDL [Mass/Vol] 47 mg/dL Normal 0-130 [facility] Comment on above: Order Comment: No: D o not add to previous draw Criteria for reflexing a culture was not met. Please call the lab at [phone] within 24 hours of collection time if culture is needed Result Comment: LDL IS A CALCULATION LDL IS ONLY VALID IF THE TRIG IS LESS THAN 400. Performed By: #### 3 0965 #### [facility] [address] [place] [address], [facility] Cholesterol.total/Cho lesterol in HDL [Mass ratio] 3.7 {ratio} Normal .0-4.5 [facility] Comment on above: Order Comment: No: D o not add to previous draw Criteria for reflexing a culture was not met. Please call the lab at [phone] within 24 hours of collection time if culture is needed Performed By: #### 3 0965 #### [facility] [address] NON-HDL CHOLESTEROL 80 mg/dL Normal [facility] Comment on above: Order Comment: No: D o not add to previous draw Criteria for reflexing a culture was not met. Please call the lab at [phone] within 24 hours of collection time if culture is needed Performed By: #### 3 0965 #### [facility] [address] [place] [address], [facility] Triglyceride [Mass/Vol] 164 mg/dL High 40-149 [facility] Comment on above: Order Comment: No: [...] RISK Performed By: #### 3 0965 #### [facility] [address] [place] [address], [facility] VLDL CHOL 33 mg/dL Normal 0-40 [facility] Comment on above: Order Comment: No: D o not add to previous draw Criteria for reflexing a culture was not met. Please call the lab at [phone] within 24 hours of collection time if culture is needed Performed By: #### 3 0965 #### [facility] [address] MAGNESIUM BLOODon 02-16-2022 Magnesium [Mass/Vol] 1.9 mg/dL Normal 1.9-2.7 [facility] Comment on above: Order Comment: No: D o not add to previous draw Performed By: #### 3 0739 #### [facility] [address] PHOSPHORUS BLOODon Phosphate [Mass/Vol] 3.5 mg/dL Normal 2.5-5.0 [facility] Comment on above: Order Comment: No: D o not add to previous draw Criteria for reflexing a culture was not met. Please call the lab at [phone] within 24 hours of collection time if culture is needed Performed By: #### 3 0965 #### [address] PORTABLE CHEST 1 VIEWon 01-22 PORTABLE CHEST 1 VIEW [facility] Department of Radiology [address] [place] [id number] ======== Patient Name: IGNACIO AMIN : 1945 Sex: M Age: Race: White Pt. Location: [id number] Patient Status: I Ordered Date: 02/16/2022 7:00:00 [...] chest. Electronically signed: Fidelina Mi. Transcribed by: [email or web address], User Resident: Electronically Signed by: FIDELINA MI @ 02/16/2022 09:14 AM Normal [facility] Comment on above: Order Comment: Check Chest Tube Position, ON ARRIVAL TO CVU PROTHROMBIN TIMEon 2 INR Coag (PPP) [Relative time] 1.09 {INR} Normal 0.91-1.16 [facility] Comment on above: Order Comment: Check [...] CHEST 1995;[id number]. Performed By: #### 5 7307, 95328 ####[facility] [address] PT Coag (PPP) [Time] 14.1 s Normal 12.3-14.8 [facility] Comment on above: Order Comment: Check Chest Tube Position, ON ARRIVAL TO CVU Result Comment: ALL RESULTS MUST BE INTERPRETED WITH RESPECT TO BLOOD DRAWING ARTIFACT OR DILUTION ERROR OF ANTICOAGULANT AT THE TIME OF SAMPLING. Performed By: #### 5 7307, 40164 ####[facility] [address] TSH3on 02-16-2022 TSH 3RD GENERATION 1.10 uIU/mL Normal 0.34-5.60 [facility] Comment on above: Order Comment: No: D o not add to previous draw Performed By: #### 3 0739 #### [facility] [address] *MRSA/MSSA DNA NASALon 02-15 *MRSA/MSSA DNA NASAL Clinical Report: (D ) Specimen: NASAL SWAB Collected: 02/15/2022 17:50 Status: Final Last Updated: 02/16/2022 12:41 (1) No collection time noted on specimen or requisition. The collection time recorded is the time of receipt in the lab. MSSA DNA (Final) Negative MRSA DNA (Final) Negative Normal [facility] Comment on above: Order Comment: No co llection time noted on specimen or requisition. The collection time recorded is the time of receipt in the lab. Performed By: #### 3 1595 #### [facility] [address] URINALYSIS REFLEXon 02-16-20 22 Appearance (U) CLEAR Normal CLEAR [facility] Comment on above: Order Comment: No: D o not add to previous drawCriteria for reflexing a culture was not met. Please call the lab [phone] within 24 hours of collection time if culture is needed Performed By: #### 3 4 #### [facility] [address] [place] [address], [place] Bilirubin Ql (U) Negative Normal NEGATIVE [facility] Comment on above: Order Comment: No: D o not add to previous drawCriteria for reflexing a culture was not met. Please call the lab [phone] within 24 hours of collection time if culture is needed Performed By: #### 3 2043 #### [facility] [address] [place] [address], [place] Color (U) YELLOW Normal YELLOW [facility] Comment on above: Order Comment: No: D o not add to previous drawCriteria for reflexing a culture was not met. Please call the lab [phone] within 24 hours of collection time if culture is needed Performed By: #### 3 2043 #### [facility] [address] [place] [address], [facility] EPIS NONE SEEN Normal FEW,OCC,NONE SEEN [facility] Comment on above: Order Comment: No: D o not add to previous drawCriteria for reflexing a culture was not met. Please call the lab [phone] within 24 hours of collection time if culture is needed Performed By: #### 3 2043 #### [facility] [address] [place] [address], [place] Glucose Ql (U) Negative Normal NEGATIVE [facility] Comment on above: Order Comment: No: D o not add to previous drawCriteria for reflexing a culture was not met. Please call the lab [phone] within 24 hours of collection time if culture is needed Performed By: #### 3 4 #### [facility] [address] [place] [address], [place] Hemoglobin Ql (U) TRACE Abnormal NEGATIVE [facility] Comment on above: Order Comment: No: D o not add to previous drawCriteria for reflexing a culture was not met. Please call the lab [phone] within 24 hours of collection time if culture is needed Performed By: #### 3 2043 #### [facility] [address] [place] [address], [facility] KETONE Negative Normal NEGATIVE [facility] Comment on above: Order Comment: No: D o not add to previous drawCriteria for reflexing a culture was not met. Please call the lab [phone] within 24 hours of collection time if culture is needed Performed By: #### 3 2043 #### [facility] [address] [place] [address], [place] LEUK TOMA Negative Normal NEGATIVE [facility] Comment on above: Order Comment: No: D o not add to previous drawCriteria for reflexing a culture was not met. Please call the lab [phone] within 24 hours of collection time if culture is needed Performed By: #### 3 2043 #### [facility] [address] [place] [address], [facility] Nitrite Ql (U) Negative Normal NEGATIVE [facility] [facility] Comment on above: Order Comment: No: D o not add to previous drawCriteria for reflexing a culture was not met. Please call the lab [id number] within 24 hours of collection time if culture is needed Performed By: #### 3 2043 #### [facility] [address] [place] [address], [facility] pH (U) 6.0 [pH] Normal 5.0-8.0 [facility] Comment on above: Order Comment: No: D o not add to previous drawCriteria for reflexing a culture was not met. Please call the lab [email or web address] within 24 hours of collection time if culture is needed Performed By: #### 3 4 #### [facility] [address] [place] [address], [place] Protein Ql (U) Negative Normal NEGATIVE [facility] Comment on above: Order Comment: No: D o not add to previous drawCriteria for reflexing a culture was not met. Please call the lab [id number] within 24 hours of collection time if culture is needed Performed By: #### 3 2043 #### [facility] [address] [place] [address], [facility] RBC 0-2 Abnormal NONE SEEN [facility] Comment on above: Order Comment: No: D o not add to previous drawCriteria for reflexing a culture was not met. Please call the lab [id number] within 24 hours of collection time if culture is needed Performed By: #### 3 2043 #### [facility] [address] [place] [address], [facility] SPEC GRAV 1.010 Low 1.015-1.020 [facility] Comment on above: Order Comment: No: D o not add to previous drawCriteria for reflexing a culture was not met. Please call the lab [id number] within 24 hours of collection time if culture is needed Performed By: #### 3 2043 #### [facility] [address] [place] [address], [facility] WBC UA 0-2 Abnormal NONE SEEN [facility] Comment on above: Order Comment: No: D o not add to previous drawCriteria for reflexing a culture was not met. Please call the lab [id number] within 24 hours of collection time if culture is needed Performed By: #### 3 2043 #### [facility] [address] [place] [address], [facility]22 SARS-CoV-2 (COVID-19) RNA JJ+probe Ql (Unsp spec) Not detected Normal NOT DETECTED The [facility] Comment on above: Result Comment: This test is not yet approved or cleared by the [place] FDA. When there are no FDA-approved or cleared tests available, and other criteria are met, FDA can make tests available under an emergency access mechanism called an Emergency Use Authorization (EUA). The EUA for this test is supported by the [place] of Health and Human Service's (HHS's) declaration [...] SARS-CoV-2. Performed By: #### H H #### [facility] [address] [place] [address] Dr. Yoselin Rivera HEMOGRAM AND PLATELon 2021 Hematocrit (Bld) [Volume fraction] 42.9 % Normal 42.0-54.[address] [facility] Comment on above: Performed By: #### H H #### [facility] [address] [place] [address] Dr. Yoselin Rivera Hemoglobin (Bld) [Mass/Vol] 14.0 g/dL Normal 14.0-18.[address] [facility] Comment on above: Performed By: #### H H #### [facility] [address] [place] [address] Dr. Yoselin Rivera MCH (RBC) [Entitic mass] 30.7 pg Normal 25.9-34.0 [facility] Comment on above: Performed By: #### H H #### [facility] [address] [place] [address] Dr. Yoselin Rivera MCHC (RBC) [Mass/Vol] 32.6 g/dL Normal 29.9-35.[address] [facility] Comment on above: Performed By: #### H H #### [facility] [address] [place] [address] Dr. Yoselin Rivera MCV (RBC) [Entitic vol] 94.1 fL Critically high 80.0-94.[address] [facility] Comment on above: Performed By: #### H H #### [facility] [address] [place] [address] Dr. Yoselin Rivera PLT 153 103/ul Normal 150-[address] [facility] Comment on above: Performed By: #### H H #### [facility] [address] [address] [address] Yoselin Rivera RBC 4.56 106/ul Critically low 4.70-6.10 [facility] Comment on above: Performed By: #### H H #### [facility] [address] [place] [address] Dr. Yoselin Rivera WBC 5.9 103/ul Normal 4.0-11.0 [facility] Comment on above: Performed By: #### H H #### [facility] [address] [place] [address] Dr. Yoselin Rivera PROF CHEM 8 (BAS METB)on Anion gap [Moles/Vol] 9.0 mmol/L Normal [facility] Comment on above: Performed By: #### H H #### [facility] [address] [place] [address] Dr. Yoselin Rivera Calcium [Mass/Vol] 9.1 mg/dL Normal 8.5-10.1 [facility] Comment on above: Performed By: #### H H #### [facility] [address] [place] [address] Dr. Yoselin Rivera Chloride [Moles/Vol] 104 mmol/L Normal 98-107 [facility] Comment on above: Performed By: #### H H #### [facility] [address] [place] [address] Dr. Yoselin Rivera CO2 [Moles/Vol] 30.0 mmol/L Normal 21.0-32.0 [facility] Comment on above: Performed By: #### H H #### [facility] [address] [place] [address] Dr. Yoselin Rivera Creatinine [Mass/Vol] 0.98 mg/dL Normal 0.70-1.30 [facility] Comment on above: Performed By: #### H H #### [facility] [address] [place] [address] Dr. Yoselin Rivera EGFR-AF SYRIAN >60 Normal >=60 [facility] Comment on above: Performed By: #### H H #### [facility] [address] [address] [address] Yoselin Rivera EGFR-NON AF SYRIAN >60 Normal >=60 [facility] Comment on above: Performed By: #### H H #### [facility] [address] [address] [address] Yoselin Rivera Glucose [Mass/Vol] 122 mg/dL Critically high 74-106 [facility] Comment on above: Performed By: #### H H #### [facility] [address] [address] [address] Yoselin Rivera Potassium [Moles/Vol] 4.0 mmol/L Normal 3.5-5.1 [facility] Comment on above: Performed By: #### H H #### [facility] [address] [address] [address] Yoselin Rivera Sodium [Moles/Vol] 139 mmol/L Normal 136-145 [facility] Comment on above: Performed By: #### H H #### [facility] [address] [address] [address] Yoselin Rivera Urea nitrogen [Mass/Vol] 19.0 mg/dL Critically high 7.0-18.0 [facility] Comment on above: Performed By: #### H H #### [facility] [address] [address] [address] Yoselin Rivera Urea nitrogen/Creatinine [Mass ratio] 19.4 mg/mg Normal [facility] Comment on above: Performed By: #### H H #### [facility] [address] [address] [address] Yoselin Rivera NM STRESS/REST MULTIon 02-07 NM STRESS/REST MULTI Patient: YARON AMIN Exam Date: 02/07/2022 : 1945 Gender:M Ordering : DR DONAVAN SAEED M.D. Admission #: [id number] Family : DR ELLIOT ROSALES M.D. Order #: [id number] CLICK HERE TO VIEW EXAM RADIOLOGY REPORT [...] Lanza M.D. on 02/08/2022 at 09:32 Normal [facility] URINALYSISOrdered By: Annie sanchez on 09-19-2021 Bacteria LM Ql (Urine sed) Trace /HPF Normal Trace/HPF [facility] UA Auto SS Bilirubin Ql (U) Negative (09/19/21 12:29 PM) Normal Negative [facility] UA Auto SS Clarity (U) SL CLOUDY Invalid Interpretation Code [facility] UA Auto SS Color (U) Yellow (09/19/21 12:29 PM) Normal Yellow [facility] UA Auto SS Epithelial cells.squamous LM.HPF (Urine sed) [#/Area] 0-2 /HPF Normal 0-2/HPF [facility] UA Aut o SS Glucose Test strip (U) [Mass/Vol] Negative (09/19/21 12:29 PM) Normal Negative [facility] UA Auto SS Hemoglobin Ql (U) Trace *ABN* (09/19/21 12:29 PM) Invalid Interpretation Code Negative [facility] UA Auto SS Ketones (U) [Mass/Vol] Trace *NA* (09/19/21 12:29 PM) Invalid Interpretation Code Negative [facility] UA Auto SS [place]ah.plasma/Lithiu m.RBC (Bld) [Mass ratio] 0-3 /HPF Normal 0-3/HPF [facility] UA Auto SS Mucus Ql (Urine sed) Trace (09/19/21 12:29 PM) Normal [facility] UA Auto SS Nitrite Ql (U) Negative (09/19/21 12:29 PM) Normal Negative [facility] UA Auto SS pH (U) 5.5 *NA* (09/19/21 12:29 PM) Invalid Interpretation Code 5.0 - 9.0 [facility] UA Auto SS Protein (U) [Mass/Vol] Negative (09/19/21 12:29 PM) Normal Negative [facility] UA Auto SS Specific gravity (U) [Rel density] >=1.030 *NA* (09/19/21 12:29 PM) Invalid Interpretation Code 1.005 - 1.030 [facility] UA Auto SS UA Spec Desc Random Urine (09/19/21 12:29 PM) Normal [facility] UA Auto SS Urobilinogen Qn (U) [id number] {Kayce'U}/dL Normal 0.0 - 1.0 EU/dL [facility] UA Auto SS WBC Auto Ql (U) 2+ *ABN* (09/19/21 12:29 PM) Invalid Interpretation Code Negative [facility] UA Auto SS WBC LM.HPF (Urine sed) [#/Area] /[HPF] Invalid Interpretation Code 0-5/HPF [facility] UA Auto SS Vital Signs Date Time Vital Sign Value Performing Clinician Facility 10-14-2023 09:10-0400 Diastolic blood pressure 70 mm[Hg] MD Elliot Rosales Work Phone: [facility] 10-14-2023 09:10-0400 Heart rate 63 /min MD Elliot Rosales Work Phone: [facility] 10-14-2023 09:10-0400 Respiratory rate 18 /min MD Elliot Rosales Work Phone: [facility] 10-14-2023 09:10-0400 SaO2% (BldA) [Mass fraction] 100 % MD Elliot Rosales Work Phone: [facility] 10-14-2023 09:10-0400 Systolic blood pressure 130 mm[Hg] MD Elliot Rosales Work Phone: [facility] 10-14-2023 07:19-0400 Body height 177.8 cm MD Elliot Rosales Work Phone: [facility] 10-14-2023 07:19-0400 Body weight 90.26 kg MD Elliot Rosales Work Phone: [facility] 07-23-2023 09:45-0500 Blood Pressure Location Patience Lue [facility] 07-23-2023 09:45-0500 Diastolic blood pressure 80 mm[Hg] Patience Lue [facility] 07-23-2023 09:45-0500 Heart rate 68 /min Patience Lue [facility] 07-23-2023 09:45-0500 Respiratory rate 16 /min Patience Lue [facility] 07-23-2023 09:45-0500 Systolic blood pressure 132 mm[Hg] Patience Lue [facility] 07-15-2023 09:40-0500 Body height 176.53 cm Jenifer Jensen Other [facility] Other 07-15-2023 09:40-0500 Body mass index (BMI) [Ratio] 29.34 kg/m2 Aziz Bakhous Other [facility] Other 07-15-2023 09:40-0500 Body temperature 96.2 [degF] Azvern Bakcarltons Other [facility] Other 07-15-2023 09:40-0500 Body weight 91.45 kg Azvern Monreals Other [facility] Other 07-15-2023 09:40-0500 Diastolic blood pressure 70 mm[Hg] Azvern Monreals Other [facility] Other 07-15-2023 09:40-0500 Respiratory rate 18 /min Jenifer Monreals Other [facility] Other 07-15-2023 09:40-0500 SaO2% (BldA) [Mass fraction] 97 % Jenifer Monreals Other [facility] Other 07-15-2023 09:40-0500 Systolic blood pressure 122 mm[Hg] Jenifer Monreals Other [facility] Other 05-19-2023 10:00-0500 Body height 176.53 cm Elliot Rosales Other [facility] Other 05-19-2023 10:00-0500 Body mass index (BMI) [Ratio] 28.79 kg/m2 Elliot Rosales Other [facility] Other 05-19-2023 10:00-0500 Body weight 89.73 kg Elliot Rosales Other [facility] Other 05-19-2023 10:00-0500 Diastolic blood pressure 84 mm[Hg] Elliot Rosales Other [facility] [employer] Other 05-19-2023 10:00-0500 Systolic blood pressure 142 mm[Hg] Elliot Rosales Other [facility] Other 04-16-2023 09:42-0400 Blood Pressure Location Patience Lue [facility] 04-16-2023 09:42-0400 Diastolic blood pressure 79 mm[Hg] Patience Lue [facility] 04-16-2023 09:42-0400 Heart rate 68 /min Patience Lue [facility] 04-16-2023 09:42-0400 Respiratory rate 16 /min Patience Lue [facility] 04-16-2023 09:42-0400 Systolic blood pressure 134 mm[Hg] Patience Lue [facility] 01-28-2023 10:40-0400 Body height 176.53 cm [employer] Other [facility] [employer] Other 01-28-2023 10:40-0400 Body mass index (BMI) [Ratio] 28.61 kg/m2 [employer] Other [facility] [employer] Other 01-28-2023 10:40-0400 Body temperature 96.2 [degF] [employer] Other [facility] Other 01-28-2023 10:40-0400 Body weight 89.18 kg [employer] Other [facility] Other 01-28-2023 10:40-0400 Diastolic blood pressure 72 mm[Hg] Jenifer Monreals Other [facility] Other 01-28-2023 10:40-0400 Respiratory rate 18 /min Jenifer Monreals Other [facility] Other 01-28-2023 10:40-0400 SaO2% (BldA) [Mass fraction] 100 % Jenifer Monreals Other [facility] Other 01-28-2023 10:40-0400 Systolic blood pressure 124 mm[Hg] Jenifer Monreals Other [facility] [employer] Other 12-13-2022 11:44-0400 Diastolic blood pressure 63 [...] Pressure Location Patience Lue [facility] 12-04-2022 09:11-0400 Diastolic blood pressure 74 mm[Hg] Patience Lue [facility] 12-04-2022 09:11-0400 Heart rate 68 /min Patience Lue [facility] 12-04-2022 09:11-0400 Respiratory rate 16 /min Patience Lue [facility] 12-04-2022 09:11-0400 Systolic blood pressure 130 mm[Hg] Patience Lue [facility] 09-24-2022 13:03-0400 Body temperature 97.11 [degF] NA Gill DUNN Work Phone: [facility] 09-24-2022 13:03-0400 Body weight 86 kg NA Gill DUNN Work Phone: [facility] 09-24-2022 13:03-0400 Diastolic blood pressure 79 mm[Hg] ELSI Doyle MD Work Phone: [facility] 09-24-2022 13:03-0400 Heart rate 60 /min ELSI Doyle MD Work Phone: [facility] 09-24-2022 13:03-0400 Respiratory rate 18 /min ELSI Doyle MD Work Phone: [facility] 09-24-2022 13:03-0400 SaO2% (BldA) [Mass fraction] 100 % ELSI Doyle MD Work Phone: [facility] 09-24-2022 13:03-0400 Systolic blood pressure 129 mm[Hg] ELSI Doyle MD Work Phone: [facility] 09-23-2022 10:45-0400 Body height 176.53 cm Elliot Rosales Other [facility] Other 09-23-2022 10:45-0400 Body mass index (BMI) [Ratio] 28.67 kg/m2 Elliot Rosales Other [facility] Other 09-23-2022 10:45-0400 Body weight 89.36 kg Elliot Rosales Other [facility] Other 09-23-2022 10:45-0400 Diastolic blood pressure 70 mm[Hg] Elliot Rosales Other [facility] Other 09-23-2022 10:45-0400 Systolic blood pressure 118 mm[Hg] Elliot Rosales Other [facility] Other 08-19-2022 10:30-0500 Body height 176.53 cm Elliot Rosales Other [facility] Other 08-19-2022 10:30-0500 Body mass index (BMI) [Ratio] 27.94 kg/m2 Elliot Rosales Other [facility] Other 08-19-2022 10:30-0500 Body weight 87.09 kg Elliot Rosales Other [facility] Other 08-19-2022 10:30-0500 Diastolic blood pressure 80 mm[Hg] Elliot Rosales Other [facility] Other 08-19-2022 10:30-0500 SaO2% (BldA) [Mass fraction] 98 % Elliot Rosales Other [facility] Other 08-19-2022 10:30-0500 Systolic blood pressure 122 mm[Hg] Elliot Rosales Other [facility] Other 08-13-2022 10:40-0500 Body height 177.8 cm Jenifer Jensen Other [facility] Other 08-13-2022 10:40-0500 Body mass index (BMI) [Ratio] 27.55 kg/m2 Jenifer Monreals Other [facility] Other 08-13-2022 10:40-0500 Body weight 87.09 kg Jenifer Jensen Other [facility] Other 08-13-2022 10:40-0500 Diastolic blood pressure 70 mm[Hg] Jenifer Monreals Other [facility] Other 08-13-2022 10:40-0500 Respiratory rate 18 /min Jenifer Jensen Other [facility] Other 08-13-2022 10:40-0500 SaO2% (BldA) [Mass fraction] 97 % Jenifer Jensen Other [facility] Other 08-13-2022 10:40-0500 Systolic blood pressure 149 mm[Hg] Jenifer Monreals Other [facility] Other 06-05-2022 09:28-0500 Blood Pressure Location Patience Lue [facility] 06-05-2022 09:28-0500 Diastolic blood pressure 69 mm[Hg] Patience Lue [facility] 06-05-2022 09:28-0500 Heart rate 65 /min Patience Lue [facility] 06-05-2022 09:28-0500 Systolic blood pressure 128 mm[Hg] Patience Huitron [facility] 04-30-2022 11:00-0500 Body height 177.8 cm Azvern Monreals Other [facility] [employer] Other 04-30-2022 11:00-0500 Body mass index (BMI) [Ratio] 25.77 kg/m2 Azvern Bakhous Other [facility] Other 04-30-2022 11:00-0500 Body temperature 96.2 [degF] Azvern Monreals Other [facility] Other 04-30-2022 11:00-0500 Body weight 81.47 kg Aziz Bakhous Other [facility] Other 04-30-2022 11:00-0500 Diastolic blood pressure 72 mm[Hg] Aziz Bakhous Other [facility] Other 04-30-2022 11:00-0500 Respiratory rate 18 /min Azvern Kernhous Other [facility] Other 04-30-2022 11:00-0500 SaO2% (BldA) [Mass fraction] 99 % Aziz Bakhous Other [facility] Other 04-30-2022 11:00-0500 Systolic blood pressure 111 mm[Hg] Aziz Bakhous Other [facility] Other 12-03-2021 13:10-0400 Diastolic blood pressure 73 mm[Hg] Patience Lue [facility] 12-03-2021 13:10-0400 Heart rate 62 /min Patience Lue [facility] 12-03-2021 13:10-0400 Systolic blood pressure 124 mm[Hg] Patience Lue [facility] 09-25-2021 13:07-0400 Body temperature 96.4 [degF] ELSI Doyle MD Work Phone: [facility] 09-25-2021 13:07-0400 Body weight 87.54 kg NA Gill DUNN Work Phone: [facility] 09-25-2021 13:07-0400 Diastolic blood pressure 70 mm[Hg] NA Gill DUNN Work Phone: [facility] 09-25-2021 13:07-0400 Heart rate 62 /min ELSI Doyle MD Work Phone: [facility] 09-25-2021 13:07-0400 Respiratory rate 16 /min ELSI Doyle MD Work Phone: [facility] 09-25-2021 13:07-0400 SaO2% (BldA) [Mass fraction] 98 % ELSI Doyle MD Work Phone: [facility] 09-25-2021 13:07-0400 Systolic blood pressure 133 mm[Hg] ELSI Doyle MD Work Phone: [facility] 09-19-2021 09:38-0400 Blood Pressure Location Patience Lue [facility] 09-19-2021 09:38-0400 Diastolic blood pressure 78 mm[Hg] Patience Lue [facility] 09-19-2021 09:38-0400 Heart rate 68 /min [facility] 09-19-2021 09:38-0400 Respiratory rate 16 /min Patience Lue [facility] 09-19-2021 09:38-0400 Systolic blood pressure 128 mm[Hg] Patience Lue [facility] [employer] Encounters Encounter Date Encounter Type Care Provider Facility Start: 07-26-2024 ambulatory [facility] Start: 06-01-2024 End: 06-01-2024 ambulatory [facility] Start: 05-25-2024 ambulatory [facility] Start: 05-11-2024 ambulatory [facility] Start: 05-04-2024 End: 05-04-2024 ambulatory [facility] Start: 02-19-2024 ambulatory [facility] Start: 01-07-2024 End: 01-07-2024 [facility] Start: 12-11-2023 ambulatory [facility] Start: 12-11-2023 End: 12-11-2023 ambulatory [facility] Start: 12-11-2023 End: 12-11-2023 ambulatory [facility] Start: 12-04-2023 ambulatory [facility] Start: 12-04-2023 Encounter for preprocedural cardiovascular examination JUSTIN URRUTIA [facility] Start: 11-11-2023 End: 11-11-2023 ambulatory JUSTIN MADRIGALCKO [facility] Start: 10-14-2023 End: 10-14-2023 ambulatory Elliot Rosales Facility:[facility] Start: 10-14-2023 Non-patient / Non-visit MD Tejal Rosales Work Phone: [facility] G[facility] Work Phone: Start: 10-14-2023 End: 10-14-2023 Admission to same day surgery center MD Elliot Rosales Work Phone: [facility] Work Phone: Start: 10-14-2023 End: 10-14-2023 ambulatory MD Elliot Rosales Work Phone: [facility] Work Phone: Start: 09-26-2023 Non-patient / Non-visit MD Tejal Rosales Work Phone: [facility] Work Phone: Start: 07-23-2023 End: 07-24-2023 ambulatory Patience Huitron Facility:[facility] Start: 07-23-2023 End: 07-23-2023 Patient encounter procedure Patience Huitron [facility] Start: 07-15-2023 End: 07-15-2023 ambulatory Jenifer Jensen Other [facility] Other Start: 07-15-2023 Office outpatient vi sit 15 minutes Jenifer Jensen [facility] Start: 05-19-2023 End: 05-19-2023 ambulatory Elliot Rosales Other [employer] Other Start: 05-19-2023 Office outpatient vi sit 10 minutes Elliot Rosales [facility] Start: 04-16-2023 End: 04-17-2023 ambulatory Pat[facility] JeffersonTj [facility]sarita [facility] Start: 04-16-2023 End: 04-16-2023 Patient encounter procedure Patience Huitron [facility] Start: 03-03-2023 End: 03-04-2023 ambulatory Patience JeffersonTj Morrellsarita Facility[facility] Start: 03-03-2023 End: 03-03-2023 Patient encounter procedure Patience Huitron [facility] Start: 01-28-2023 End: 01-28-2023 ambulatory Jenifer Osfam Brewings Other [facility] Other Start: 01-28-2023 Office outpatient vi sit 15 minutes Azvern Monreals [facility] Start: 12-13-2022 End: 12-13-2022 ambulatory Elliot Rosales Facility:[facility] Start: 12-13-2022 End: 12-13-2022 Admission to same day surgery center MD Elliot Rosales Work Phone: [facility] Work Phone: Start: 12-13-2022 End: 12-13-2022 ambulatory MD Elliot Rosales Work Phone: [facility] Work Phone: Start: 12-04-2022 End: 12-05-2022 ambulatory Patience Huitron [facility] Start: 12-04-2022 End: 12-04-2022 Patient encounter procedure Patience MTj Tomy [facility] Start: 09-24-2022 End: 09-24-2022 ambulatory Ema DOYLE Facility:[facility] Start: 09-24-2022 End: 09-24-2022 Patient encounter procedure G Abhijeet Doyle MD Work Phone: Radiation Oncology Comment on above: History of prostate cancer (Primary Dx) Start: 09-23-2022 End: 09-23-2022 ambulatory Elliot Rosales Other [facility] Other Start: 09-23-2022 Office outpatient vi sit 15 minutes Elliot Rosales [facility] Start: 09-23-2022 Telephone encounter Elliot Rosales [facility] Start: 09-18-2022 End: 09-19-[address] ELLIOT ROSALES Facility:[facility] Start: 08-26-2022 End: 08-26-2022 ambulatory Elliot Rosales Other [facility] Other Start: 08-26-2022 Telephone encounter Elliot Rosales [facility] Start: 08-19-2022 End: 08-19-2022 ambulatory Elliot Rosales Other [facility] Other Start: 08-19-2022 Office outpatient vi sit 15 minutes Elliot Rosales [facility] Start: 08-13-2022 End: 08-13-2022 ambulatory Jenifer Jensen Other [facility] Other Start: 08-13-2022 Office outpatient vi sit 15 minutes Azvern Monreals [facility] Nephrology Raúl Start: 08-05-2022 End: 08-06-[address] ELLIOT ROSALES Facility:[facility] Start: 06-25-2022 End: 07-10-[address] ELLIOT ROSALES Facility:[facility] Start: 06-18-2022 End: 06-19-[address] ELLIOT ROSALES Facility:[facility] Start: 06-05-2022 End: 06-05-2022 Patient encounter procedure Patience Huitron [facility] Start: 06-03-2022 End: 06-04-[address] ELLIOT ROSALES Facility:[facility] Start: 05-22-2022 End: 05-23-[address] ELLIOT ROSALES Facility:[facility] Start: 04-30-2022 End: 04-30-2022 ambulatory Jonathanvern Conchaanni Other [facility] [employer] Other Start: 04-30-2022 Office outpatient ne w 30 minutes Jenifer Conchaanni [facility] Nephrology Start: 04-26-2022 End: 04-27-2022 ambulatory PHYLLIS GRANT Facility:[facility] Start: 04-03-2022 End: 06-25-[address] ELLIOT ROSALES Facility:[facility] Start: 02-15-2022 End: 02-28-2022 Evaluation and management of inpatient Christiane Olson Facility:[facility] Start: 02-15-2022 Encounter for preprocedural laboratory examination [facility] Start: 02-13-2022 End: 02-14-[address] ELLIOT ROSALES Facility:[facility] Start: 02-13-2022 End: 02-14-2022 Encounter for preprocedural laboratory examination DR ELLIOT ROSALES Facility:[facility] Start: 02-07-2022 End: 02-08-[address] ELLIOT ROSALES Facility:[facility] Start: 12-03-2021 End: 12-03-2021 Patient encounter procedure Patience Huitron [facility] Start: 10-01-2021 End: 10-01-2021 Patient encounter procedure Patience Huitron [facility] Start: 09-25-2021 End: 09-25-2021 Patient encounter procedure Ema Doyle MD Work Phone: Radiation Oncology Comment on above: History of prostate cancer (Primary Dx) Start: 09-19-2021 End: 09-19-2021 Lab Drop off Patience Huitron [facility] Start: 09-19-2021 End: 09-19-2021 Patient encounter procedure Patience Huitron [facility] Procedures Date Procedure Procedure Detail Performing Clinician Start: 10-14-2023 Screening colonoscopy Jefferson Rosales Work Phone: Start: 03-03-2023 Transurethral insert ion of prostatic urethral lift implant Patience Huitron Comment on above: 5 implants attempted . 5 seated. Start: 12-13-2022 Screening colonoscopy Jefferson Rosales Work Phone: Start: 09-18-2022 End: 09-18-2022 PSA screening [facility] Provider Comment on above: Performed By: #### P SAD #### [facility] [address] [place] [address] Dr. Yoselin Rivera Start: 02-19-2022 Antibody screen Christiane urban Comment on above: Performed By: #### 3 4 #### [address] Start: 01-21-2022 Open heart surgery Osiris Huitron Start: 10-01-2021 Transurethral cystoscopy Patience Tomy Start: 09-25-2021 Adult depression scr eening assessment ELSI Doyle MD Work Phone: Start: 09-19-2021 PSA screening [facility] Provi debbie Start: 06-23-2011 Brachytherapy Patience Tomy Cataract (morphologi c abnormality) Patience Huitron Colonoscopy Patience Tomy Plan of Treatment Date Care Activity Detail Author Start: 10-14-2023 [facility] Start: 09-25-2023 End: 11-25-2023 Prostate specific Ag [Mass/volume] in Serum or Plasma PSA/PROSTSPECAG DIAG Lab Routine History of prostate cancer Expected: 09/25/2023 (Approximate), Expires: 11/25/2023 [facility] Work Phone: Comment on above: Expected: 09/25/2023 (Approximate), Expires: 11/25/2023 Start: 02-21-2023 Influenza vaccination INFLUENZ A (Season Ended) [facility] Start: 12-13-2022 [facility] Start: 09-25-2022 Adult depression screening assessment DEPRESSION SCREENING [facility] Start: 09-25-2022 End: 11-25-2022 Prostate specific Ag [Mass/volume] in Serum or Plasma PSA/PROSTSPECAG DIAG Lab Routine History of prostate cancer Expected: 09/25/2022 (Approximate), Expires: 11/25/2022 [facility] Work Phone: Comment on above: Expected: 09/25/2022 (Approximate), Expires: 11/25/2022 Start: 06-23-2022 ADVANCE DIRECTIVE DISCUSSION ADVANCE DIRECTIVE DISCUSSION [facility] Start: 06-23-2022 DEPRESSION ASSESSMENT DEPRESSION ASS ESSMENT [facility] Start: 02-21-2022 Influenza vaccination INFLUENZ A (Season Ended) [facility] Start: 06-23-2021 ADVANCE DIRECTIVE DISCUSSION ADVANCE DIRECTIVE DISCUSSION [facility] Start: 11-08-2020 COVID-19 VACCINE (3 - Booster for Julito series) COVID-19 VACCINE (3 - Booster for Julito series) [facility] Start: 2011 PNEUMOVAX AGE 65 AND OVER WITH 5YR LOOKBACK (#1) PNEUMOVAX AGE 65 AND OVER WITH 5YR LOOKBACK (#1) [facility] Start: 1996 SHINGRIX VACCINE (1 of 2) SHINGRIX VACCINE (1 of 2) [facility] Start: 1991 COLOGUARD (FIT-DNA) COLOGUARD (FIT-D NA) [facility] Start: 1991 Colonoscopy COLONOSCOPY [facility] Start: 1991 COLORECTAL CANCER SCREENING COLORECTAL CANCER SCREENING [facility] Start: [address] COLONOGRAPHY [facility] Start: 1991 DIABETES SCREEN [facility] Start: 1991 FECAL OCCULT BLOOD FECAL OCCULT BLOO D [facility] Start: 1991 SIGMOIDOSCOPY [facility] Start: 1981 LIPID SCREEN LIPID SCREEN [facility] Start: 1965 Urine microalbumin profile DTAP,TDAP,TD (1 - Tdap) [facility] Start: 1964 HEPATITIS C SCREENING HEPATITIS C SC REENING [facility] Start: 1952 PNEUMOCOCCAL: 65+ (1 - PCV) PNEUMOCOCCAL: 65+ (1 - PCV) [facility] Patient Education [facility] Work Phone: [facility] Immunizations Immunization Date Immunization Notes Care Provider Aristeo baldwin 05-05-2022 pneumococcal 20-corina nt conjugate vaccine Patience Lue [facility] 04-21-2022 SARS-CoV-2 (COVID-19 ) [id number] Patience Lue [facility] 04-27-2021 SARS-CoV-2 (COVID-19 ) mRNA-1273 vaccine Patience Lue [facility] 03-21-2021 pneumococcal polysaccharide vaccine, 23 valent Patience Lue [facility] 01-24-2021 zoster vaccine recombinant Patience Lue [facility] 11-08-2020 zoster vaccine recombinant Patience Lue [facility] 09-13-2020 SARS-CoV-2 (COVID-19 ) Ad26 vaccine, recombinant Patience Lue [facility] 08-17-2020 SARS-CoV-2 (COVID-19 ) Ad26 vaccine, recombinant Patience Huitron [facility] 11-19-2016 pneumococcal conjuga te vaccine, 13 valent Patience Huitron [facility] Payers Date Payer Category Payer Self-pay 2019 Unknown MMO MMO MEDICARE SUPPLEMENT [id number] 2019-Present [phone] [address] [place] [address] Indemnity [id number] 2019 Unknown MMO MMO MEDICARE SUPPLEMENT [id number] 2019-Present [phone] [address] [place] [address] Indemnity [id number] 2011 Medicare MEDICARE MEDICAR E A AND B [id number] 2011-Present [phone] [place] [address] Medicare [id number] 2011 Medicare MEDICARE MEDICAR E A AND B [id number] 2011-Present [phone] [place] [address] Medicare [id number] 1959 Medicare [id number] 1959 Unknown [id number] 1946 Unknown [id number] 1946 Unknown [id number] [id number] 1946 Unknown [id number] [id number] 1946 Unknown [id number] [id number] 1946 Unknown [id number] [id number] 1946 Unknown [id number] [id number] 1946 Unknown [id number] 2.16.840.1.147235.3.579.2.593 1946 Unknown [id number] 2.16.840.1.421264.3.579.2.593 1946 Unknown [id number] [id number] 1946 Unknown [id number] 2.16.840.1.093296.3.579.2.593 1946 Unknown [id number] 2.16.840.1.633435.3.579.2.593 1946 Unknown [id number] 2.16.840.1.533255.3.579.2.727 1946 Unknown [id number] [id number] 1946 Unknown [id number] [id number] 1946 Unknown [id number] [id number] Unknown [employer] [phone] [id number] Unknown [id number] Social History Date Type Detail Facility Start: 09-19-2021 Tobacco smoking status Smoker (findi ng) [facility] Sex Assigned At Male [facility] Start: 10-08-2017 Tobacco smoking stat us NHIS Smokes tobacco daily [facility] History of tobacco use [facility]igarette [facility] Start: 09-21-2020 Alcohol intake Current drinke r of alcohol (finding) [facility] Start: 1945 Sex Assigned At Not on file [facility] Start: 09-15-2021 End: 09-25-2021 Exposure to SARS-CoV-2 (event) Not sure [facility] Start: 10-08-2017 Tobacco use and exposure Smokeless tobacco non-user [facility] Start: 12-04-2022 End: 10-14-2023 Tobacco smoking status Ex-smoker (finding) [facility] Start: 1945 Sex Assigned At Male F [facility] Tobacco smoking status Never [facility] Goals Date Patient Goal Desired Activity /State Functional Status Date Assessment Result Facility 07-23-2023 Functional Status N/A [facility] 04-16-2023 Functional Status N/A [facility] 12-04-2022 Functional Status N/A [facility] 06-05-2022 Functional Status N/A [facility] 12-03-2021 Functional Status N/A [facility] Clinical Notes 09-19-2021 to 05-04-2024 Note Date & Type Note Facility 05-04-2024 Note [facility] Consult Note Reason for visit: PPM, CAD/CABG, HCM, NSVT s/p ICD 05/04/24 Patient underwent A-fib ablation on 12/11/2023 where in PVI plus CTI was performed. She was noted to have normal left atrial voltage and mildly elevated LA filling pressures device check that was performed subsequently shows no evidence of any A-fib with atrial pacing 82% of the time and ventricular pacing 2% of the time as per the check on February 10, 2024 Patient here per cardiac rehab for concerns of bradycardia during his session on 04/05/2024. EKG was done in the office with HR of 69. Patient denies palpitations, chest pain, and bleeding on Eliquis. Web data 05/04/24: 11/11/23 Patient here for 6 mo follow up and device check. Doing very well, as he denies chest pain, SOB, palpitations, and lightheadedness/syncope. Had labs in Jun 2023. device check done on 11/11/2023 does reveal presence of underlying atrial fibrillation noted on few days the last of which was on 10/28/2023 where in the duration lasted for approximately 47 minutes with an average heart rate of 101 bpm. echocardiogram done on 02/27/2023 does reveal moderately dilated left atrium and CT 05/12/23: Patient for 6-month follow-up, is been doing well with no complaints of chest pain, shortness breath, CALDERÓN, LE edema Device check 05/12/23: a=paced 43% . Rate response increased to allow for better exertional response, on DDD , no AF 02/18/23 dr. urrutia HPI: Ignacio Amin is a 78 y.o. year old with past medical history [...] left greater saphenous vein. CTA CHEST W IV CONTRAST 02/20/2022 CT CHEST ANGIOGRAM W AND/OR WO IV CONTRAST GREEN CONVERSION PROSTATE SURGERY SH: Social Determinants of Health Tobacco Use: Medium Risk (01/07/2024) Patient History Smoking Tobacco Use: Former Smokeless Tobacco Use: Never Passive Exposure: Not on file Alcohol Use: Not on file Financial Resource Strain: Not on file Food Insecurity: Not on file Transportation Needs: Not on file Physical Activity: Not on file Stress: Not on file Social Connections: Not on file Intimate Partner Violence: Unknown (08/14/2023) [place] [facility] Fear of Current or Ex-Partner: Not on file Emotionally Abused: Not on file Physically Abused: Not on file Sexually Abused: Not on file Physically or Sexually Abused: Not on file Depression: Not on file Housing Stability: Not on file Utilities: Not on file Allergies: Allergies Allergen Reactions Influenza Virus Vaccine Tv Split 2010- (60 Yr +) Other Weight: No weight available Visit Vitals Smoking Status Former Meds: Current Outpatient Medications on File Prior [...] by mouth at bedtime. 90 tablet 3 cholecalciferol (Vitamin D-3) 25 MCG (1000 UT) capsule 1 capsule 1 (one) time each day at the same time. famotidine (Pepcid) 20 mg tablet Take 1 tablet (20 mg) by mouth in the morning and at bedtime. 60 tablet 0 ferrous sulfate 325 (65 Fe) MG tablet Take 65 mg by mouth with breakfast. furosemide (Lasix) 20 mg tablet Take 1 tablet (20 mg) by mouth in the morning. 90 tablet 3 melatonin 10 mg tablet Take by mouth. metoprolol succinate XL (Toprol-XL) 50 mg 24 hr tablet Take 1 tablet (50 mg) by mouth in the morning. 90 ta (more content not included)... [facility] 05-04-2024 Note Patient here per car diac rehab for concerns of bradycardia during his session on 04/05/2024. EKG was done in the office with HR of 69. Patient denies palpitations, chest pain, and bleeding on Eliquis. Review of Systems Cardiovascular: Positive for dyspnea on exertion (intermittent). All other systems reviewed and are negative. [facility] 01-07-2024 Note Cardiovascular Medic [facility] SUBJECTIVE Chief Complaint Patient presents with Follow-up Follow up ablation Ignacio Amin is a 78 y.o. male here for follow-up after his recent a.fib ablation. 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 Denies c/o CP, orthopnea, PND, LE edema, dizziness/LH, palpitations, syncope. He is still going to cardiac rehab once a week or so. He has some CALDERÓN with heavier exertion, this is unchanged for him. 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 Former smoker Erectile dysfunction Microscopic hematuria Malignant neoplasm of prostate (CMS/HCC) History of prostate cancer Urinary urgency Anticoagulated OAB (overactive bladder) Pre-operative cardiovascular examination Implantable cardioverter-defibrillator (ICD) in situ Paroxysmal atrial fibrillation (CMS/HCC) Past Medical History: Diagnosis Date Atrial fibrillation (CMS/HCC) Cardiomyopathy (CMS/HCC) Cardiomyopathy due to hypertension, without heart failure (CMS/HCC) Coronary arteriosclerosis Dyspnea on exertion HTN (hypertension) Hyperlipidemia Ischemic heart disease Family History Problem Relation Name Age of Onset Diabetes Mother Coronary artery disease Father Other (malignant tumor of colon) Sister Social History Tobacco Use Smoking status: Former Packs/day: 1 Types: Cigarettes Quit date: 2021 Years since quittin.5 Smokeless tobacco: Never Substance Use Topics Alcohol use: Yes Comment: Occasional Drug use: Never Allergies Allergen Reactions Influenza Virus Vaccine Tv Split 2010- (60 Yr +) Other Review of Systems Constitutional: Negative for chills, decreased appetite, fever, malaise/fatigue and weight gain. Cardiovascular: Positive for dyspnea on exertion. Negative for chest pain, irregular heartbeat, leg swelling, near-syncope, orthopnea, palpitations, paroxysmal nocturnal dyspnea and syncope. Hematologic/Lymphatic: Negative for bleeding problem. Does not bruise/bleed easily. OBJECTIVE Visit Vitals BP 130/72 (BP Location: Left arm, Patient Position: Sitting, BP Cuff Size: Adult) Pulse 62 Resp 11 Ht 1.753 m (5' 9 ) Wt 93 kg (205 lb) SpO2 96% BMI 30.27 kg/m??? Smoking Status Former BSA 2.13 m??? Medications: Current Outpatient Medications: apixaban (Eliquis) 5 mg tablet, Take 1 tablet (5 mg) by mouth in the morning and at bedtime., Disp: 180 tablet, Rfl: 3 aspirin 81 mg EC tablet, Take 1 tablet every day by oral route., Disp: , Rfl: atorvastatin (Lipitor) 80 mg tablet, Take 1 tablet (80 mg) by mouth at bedtime., Disp: 90 tablet, Rfl: 3 cholecalciferol (Vitamin D-3) 25 MCG (1000 UT) capsule, 1 capsule 1 (one) time each day at the same time., Disp: , Rfl: famotidine (Pepcid) 20 mg tablet, Take 1 tablet (20 mg) by mouth in the morning and at bedtime., Disp: 60 tablet, Rfl: 0 ferrous sulfate 325 (65 Fe) MG tablet, Take 65 mg by mouth with breakfast., Disp: , Rfl: furosemide (Lasix) 20 mg tablet, Take 1 tablet (20 mg) by mouth in the morning., Disp: 90 tablet, Rfl: 3 melatonin 10 mg tablet, Take by mouth., Disp: , Rfl: metoprolol succinate XL (Toprol-XL) 50 mg 24 hr tablet, Take 1 tablet (50 mg) by mouth in the morning., Disp: 90 tablet, Rfl: 3 omeprazole (PriLOSEC) [address] capsule, Take 1 capsule (40 mg) by mouth before breakfast. Do not crush or chew., Disp: 30 capsule, Rfl: 0 potassium chloride CR (Klor-Con M20) 20 mEq ER tablet, Take 1 tablet (20 mEq) by mouth in the morning. Do not crush or chew., Disp: 90 tablet, Rfl: 3 tamsulosin (Flomax) 0.4 mg 24 hr capsule, Take 1 capsule by mouth in the morning., Disp: , Rfl: Physical Exam Constitutional: Appearance: Normal appearance. He is normal weight. HENT: Head: Normocephalic and atraumatic. Right Ear: External ear normal. Left Ear: External ear normal. Eyes: Extraocular Movements: Extraocular movements intact. Pupils: Pupils are equal, round, and reactive to light. Neck: Vascular: No carotid bruit. Cardiovascular: Rate and Rhythm: Normal rate and regular rhythm. Pulses: Normal pulses. Heart sounds: Normal heart sounds. Pulmonary: Effort: Pulmonary effort is normal. Breath sounds: Normal breath sounds. Abdominal: General: Bowel sounds are normal. Palpations: Abdomen is soft. Musculoskeletal: General: Normal range of motion. Cervical back: Neck supple. Right lower leg: No edema. Left lower leg: No edema. Skin: General: Skin i (more content not included)... [facility] 12-11-2023 Note Patient: Ignacio calhoun Procedure Summary Date: 12/11/23 Room / Location: [facility] JAVA DEVELOPMENT TEAM LEAD 1 / [facility] (Cath) Anesthesia Start: 1249 Anesthesia Stop: 1610 Procedure: Ablation a-fib paroxysmal Diagnosis: Paroxysmal atrial fibrillation (CMS/HCC) (Paroxysmal atrial fibrillation (CMS/HCC) [I48.0]) Providers: Justin Urrutia MD Responsible Provider: Caroline Cabral MD Anesthesia Type: general ASA Status: 3 Anesthesia Type: general Vitals Value Taken Time BP 121/69 12/11/23 1625 Temp 36.2 ???C (97.2 ???F) 12/11/23 1610 Pulse 62 12/11/23 1628 Resp 12 12/11/23 1628 SpO2 95 % 12/11/23 1628 Vitals shown include unvalidated device data. Anesthesia Post Evaluation Patient location during evaluation: PACU Patient participation: complete - patient participated Level of consciousness: awake and alert Pain score: 2 Pain management: adequate Multimodal analgesia pain management approach Airway patency: patent Two or more strategies used to mitigate risk of obstructive sleep apnea Cardiovascular status: hemodynamically stable Respiratory status: acceptable, room air, spontaneous ventilation and nonlabored ventilation Hydration status: euvolemic Patient is hemodynamically stable and is able to be discharged from PACU per anesthesia protocol. There were no known notable events for this encounter. [facility] 12-11-2023 Note ATRIAL FIBRILLATION ABLATION PROCEDURE NOTE DATE OF PROCEDURE: 12/11/2023 PERFORMING PHYSICIAN: Dr. Justin Urrutia CONSENT: Patient NAME OF THE PROCEDURE: Pulmonary Vein Isolation and Comprehensive EP study. INDICATIONS FOR PROCEDURE: 1. Paroxysmal atrial fibrillation. FLUROSCOPY: 3.8minutes/ 40mGy. EBL: 15cc SPECIMEN REMOVED: None PROCEDURES PERFORMED: 1. Sonosite guided venous access as noted below and images stored in PACS. 2. Comprehensive EP study and catheter ablation for persistent atrial fibrillation through the pulmonary vein isolation technique. This includes right atrial recording and pacing, His bundle recording and right ventricular recording and pacing. 3. Intracardiac EP 3D mapping. 4. Intracardiac echocardiogram 5. Left atrial and coronary sinus recording and pacing to assess ablation results. 6. Left heart pressure measurements and LV pacing and recording. 7. Induction of arrhythmia and testing of ablation results using intravenous adenosine infusion. 8. Fluroscopy. 9. Pre and post ablation ICD testing. INDICATION: 78year old with past medical history of multivessel disease s/p 3vCABG on , postoperative Afib s/p FARHEEN DCCV on 02/27/22, now on Amio, HCM, NSVT s/p ICD. Was noted to have Afib on device check. Device check done on 11/11/2023 does reveal presence of underlying atrial fibrillation noted on few days the last of which was on 10/28/2023 where in the duration lasted for approximately 47 minutes with an average heart rate of 101 bpm. He opted to have Afib ablation to maintain SR. PROCEDURE NOTE: On the day of presentation, he was noted to be in sinus rhythm following which the FARHEEN was deferred. Risks, benefits and alternatives of the procedure were discussed with the patient and family who agreed to proceed. Please refer to my consult note for details of the discussion and of indications. The patient was prepped and draped following which four venous access was procured on right side as noted below. Ultrasound was used to determine the course and patency of the femoral veins on both sides and they were noted to be patent and the image stored in PACS. After infiltration with 1% lidocaine, 4 venous sheaths were placed in the right as noted below and a radial arterial line was placed by Anesthesia team. Device threshold was tested and ICD was turned OFF and programmed to VVI 40bpm. RFV: 8Fx3, [employer] Thermo[employer] SF Bi-Directional over SL1/ Vizigo, SL1: Octoray,, CS Catheter (EZ Steer). 9F: ICE catheter. Following venous access, heparin bolus was given followed by continuous intravenous drip to target ACT around 350. An intracardiac ultrasound catheter was inserted into the right atrium to examine the right atrial anatomy, atrial septum, pulmonary vein anatomy and to monitor for pericardial effusion and guide transseptal access. The LA and RA was only moderately dilated. At baseline, there was no pericardial effusion and no JANI clot but noted a very prominent Coumadin ridge. Esophagus was mapped using the [employer] 3D mapping software and noted to be towards the LSPV. Transeptal access was procured with ICE guidance using a SL-1 sheath and Sly needle. Following this, Octoray,catheter was advanced and the multipolar mapping performed of the LA creating a geometry as well as bipolar voltage assessment was made. The LA was noted to be healthy. After FAM geometrywas performed, a 2nd transseptal was performed with an SL1 sheath using a Sly needle. Following transseptal, the SL1 sheath was removed and Vizigo sheath was advanced over which the ablation catheter ST-SF thermocol ablation catheter was advanced. Ablation was then performed. A temperature probe was advanced to the middle of the LA to monitor the temperature. Ablation was performed using 40 sharpe for 10-12s in the anterior LA and 5-8seconds in the posterior wall and roof area. After completion of the left sided WACA, no signals were noted in the LSPV or LIPV and entrance and exit block was noted. After this, I proceeded to perform ablation of the right-sided vein. Following right WACA, the veins were isolated. I ensured that on the anterior aspect of right WACA and in lilia area, phrenic capture was ruled out before any ablation was performed. A temperature elevation was noted from a baseline of 35.5 to 36C. After this, perivenous pacing was performed around each individual vein, ensuring there was isolation. Adenosine was given a 12 mg dose and AV block with V pacing and hypotension was noted. No reconnection was seen. I proceeded to perform CTI ablation. Using ICE, the His and IVC junctions were marked with 3D CARTO mapping software. ICE revealed a small subeustachian pouch. Vizigo sheath was denice to the right side. Ablation was performed on the CTI line starting at the tricuspid valve aspect. 40W was utilized and I extended the ablation from the TV to the IVC aspect. Follow (more content not included)... 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 Use of blood products discussed with patient who consented to blood products. Plan discussed with attending. Additional Equipment Requests [facility] 12-11-2023 Note Airway Date/Time: 12/11/2023 1:08 PM Urgency: elective Airway not difficult General Information and Staff Patient location during procedure: OR Anesthesiologist: Caroline Cabral MD Resident/COUNTRY PRINTER/CAA: Adryan Fine MD Performed: resident/COUNTRY PRINTER/CAA Indications and Patient Condition Indications for airway management: anesthesia Spontaneous Ventilation: absent Sedation level: deep Preoxygenated: yes Patient position: sniffing Mask difficulty assessment: 1 - vent by mask Planned trial extubation Final Airway Details Final airway type: endotracheal airway Successful airway: ETT Cuffed: yes Successful intubation technique: video laryngoscopy Facilitating devices/methods: intubating stylet Endotracheal tube insertion site: oral Blade: Fraire Blade size: #3 ETT size (mm): 7.5 Cormack-Lehane Classification: grade I - full view of glottis Placement verified by: chest auscultation and capnometry Measured from: lips ETT to lips (cm): 22 Number of attempts at approach: 1 [facility] 12-11-2023 Note This report has been cancelled. [facility] 11-11-2023 Note [facility]rophys[facility] Consult Note Reason for visit: PPM, CAD/CABG, HCM, NSVT s/p ICD 11/11/23 Patient here for 6 mo follow up and device check. Doing very well, as he denies chest pain, SOB, palpitations, and lightheadedness/syncope. Had labs in Jun 2023. device check done on 11/11/2023 does reveal presence of underlying atrial fibrillation noted on few days the last of which was on 10/28/2023 where in the duration lasted for approximately 47 minutes with an average heart rate of 101 bpm. echocardiogram done on 02/27/2023 does reveal moderately dilated left atrium and CT 05/12/23: Patient for 6-month follow-up, is been doing well with no complaints of chest pain, shortness breath, CALDERÓN, LE edema Device check 05/12/23: a=paced 43% . Rate response increased to allow for better exertional response, on DDD , no AF 02/18/23 dr. urrutia HPI: Ignacio Amin is a 78 y.o. year old with past medical history [...] harvesting of the left greater saphenous vein. CT CHEST ANGIOGRAM W AND/OR WO IV CONTRAST 02/20/2022 CT CHEST ANGIOGRAM W AND/OR WO IV CONTRAST GREEN CONVERSION PROSTATE SURGERY SH: Social Determinants of Health Tobacco Use: High Risk (05/12/2023) Patient History Smoking Tobacco Use: Every Day Smokeless Tobacco Use: Never Passive Exposure: Not on file Alcohol Use: Not on file Financial Resource Strain: Not on file Food Insecurity: Not on file Transportation Needs: Not on file Physical Activity: Not on file Stress: Not on file Social Connections: Not on file Intimate Partner Violence: Unknown (08/14/2023) [place] Safety & Environment Fear of Current or Ex-Partner: Not on file Emotionally Abused: Not on file Physically Abused: Not on file Sexually Abused: Not on file Physically or Sexually Abused: Not on file Depression: Not on file Housing Stability: Not on file Utilities: Not on file Allergies: Allergies Allergen Reactions Influenza Virus Vaccine Tv Split 2010- (60 Yr +) Other Weight: 88.9kg Visit Vitals BP 140/70 (BP Location: Left arm, Patient Position: Sitting) Pulse 66 Ht 1.753 m (5' 9 ) Wt 88.9 kg (196 lb) SpO2 97% BMI 28.94 kg/m??? Smoking Status Every Day BSA 2.08 m??? Meds: Current Outpatient Medications on File Prior to Visit Medication Sig Dispense Refill aspirin 81 mg EC tablet Take 1 tablet every day by oral route. atorvastatin (Lipitor) 80 mg tablet Take 1 tablet (80 mg) by mouth at bedtime. 90 tablet 3 cholecalciferol (Vitamin D-3) 25 MCG (1000 UT) capsule 1 capsule 1 (one) time each day at the same time. ferrous sulfate 325 (65 Fe) MG tablet Take 65 mg by mouth with breakfast. furosemide (Lasix) 20 mg tablet Take 1 tablet (20 mg) by mouth in the morning. 90 tablet 3 melatonin 10 mg tablet Take by mouth. metoprolol succinate XL (Toprol-XL) 50 mg 24 hr tablet Take 1 tablet (50 mg) by mouth in the morning. 90 tablet 3 potassium chloride CR (Klor-Con M20) 20 mEq ER tablet Take 1 tablet (20 mEq) by mouth in the morning. Do not crush or chew. 90 each 3 tamsulosin (Flomax) 0.4 mg 24 hr capsule Take 1 capsule by mouth in the morning. apixaban (Eliquis) 5 mg tablet Take 1 tablet (5 mg) by mouth in the morning and at bedtime. 180 tablet 3 No current facility-administered medications on file prior to visit. ROS: Review of Systems Musculoskeletal: Positive for joint pain. All other systems reviewed and are negative. Physical Exam: Constitutional General Appearance: well-nourished, well-developed, appears stated age Level of Distre (more content not included)... [facility] 10-14-2023 Procedure note [facility] 07-23-2023 Hospital Discharge instructions Patient Education 07/23/2023 [...] urethra. Follow these instructions at home: Take vqib-ufx-psyxxnj and prescription medicines only as told by [...] provider. Document Revised: 12/26/2021 Document Reviewed: 12/26/2021 [employer] Patient Education 2022 [employer]. Follow Up Care 04/16/2023 11:00:15 With:Tomy DUNN, RODERICK Cao, URO Address: When: Unknown Comments:[facility] 07-15-2023 Evaluation note Encounter Date Diagnosis Assessment [...] well controlled Jun, Hypokalemia (ICD-10 - E87.6) [facility] Other 11-27-2023 Evaluation note* Encounter Date Diagnosis Assessment Notes Treatment Notes Treatment Clinical Notes Apr, Visit for suture removal (ICD-10 - Z48.02) Area cleaned and sutures removed. Pt tolerated well. [facility] Other 10-25-2023 Hospital Discharge instructions Patient Education 04/16/2023 10:58:52 [...] urethra. Follow these instructions at home: Take vmwa-gfl-eexymwc and prescription medicines only as told by [...] provider. Document Revised: 12/26/2021 Document Reviewed: 12/26/2021 [employer] Patient Education 2022 N[employer]ogy. Follow Up Care 03/03/2023 10:13:49 With:Tomy DUNN, RODERICK Cao, URO Address: When:Within 3 Month(s) [facility] 09-11-2023 Note [id number]:127[facility] 03-03-2023 Hospital Discharge instructions Patient Education 03/03/2023 10:03:09 Lue - Urolift Post-Op Instructions (CUSTOM) [facility] [place], [place] Post-Operative Instructions for UroLift After your [...] emptying. Follow Up Care 02/12/2023 10:35:26 With:Patience Tomy Address: Coretta Martinez, [address] [address]- [phone] Business (1) When: Unknown Comments:Office to schedule follow up in 1 month with [facility]08-08-2023 Evaluation note* Encounter Date Diagnosis Assessment [...] Currently on metoprolol. Blood pressures well controlled [facility] Other [id number] Procedure [facility]06-14-2023 Hospital Discharge instructions Patient Education 12/04/2022 09:25:30 [...] urethra. Follow these instructions at home: Take omzr-atf-hfshwyu and prescription medicines only as told by [...] provider. Document Revised: 12/26/2021 Document Reviewed: 12/26/2021 [employer] Patient Education 2022 [employer]ogy. Follow Up Care 06/05/2022 11:04:10 With:Tomy DUNN, RODERICK Cao, URO Address: When: Unknown [facility] 04-04-2023 NoteHNO ID: [id number] Author: Ema Doyle MD Service: ? Author [...] well as active information included in the EMR.[facility] 09-24-2022 History of Present illness Narrative* [...] included in the EMR. documented in this [facility]04-04-2023 Nurse Note* Nurys Saleem RN - 09/24/2022 1:06 PM EDT AUA 3 Nurys Saleem RN documented in this [facility]04-03-2023 Evaluation note* Encounter Date Diagnosis Assessment Notes [...] and rare diarrhea on his recent trip. [facility] 03-06-2023 Evaluation note* Encounter Date Diagnosis Assessment Notes Treatment Notes Treatment Clinical Notes Aug, Diarrhea, unspecified type (ICD-10 - R19.7) [facility] Other 02-27-2023 Evaluation note* Encounter Date Diagnosis Assessment Notes Treatment Notes Treatment Clinical Notes Jul, Diarrhea, unspecified type (ICD-10 - R19.7) No known sick contacts. Traveling on a cruise soon. Agrees to try rx med, call if no improvement. Discussed potential stool culture or GI referral. [facility] Other 02-21-2023 Evaluation note* Encounter Date Diagnosis [...] g/dL. I asked the patient to take pdnf-asi-dvvkedd iron supplement once daily. I will check [...] Currently on metoprolol. Blood pressures well controlled [facility] Other 12-14-2022 Hospital Discharge instructions Patient Education [...] urethra. Follow these instructions at home: Take hedh-zbm-ltufaud and prescription medicines only as told by [...] 06/09/2006 Document Revised: 05/04/2019 Document Reviewed: 07/14/2017 [employer] Patient Education 2020 Nulogy. 06/05/2022 10:50:10 Benign Prostatic Hyperplasia Benign Prostatic [...] urethra. Follow these instructions at home: Take ogdu-udn-szgcoyd and prescription medicines only as told by [...] 06/09/2006 Document Revised: 05/04/2019 Document Reviewed: 07/14/2017 [employer]els Patient Education 2019 N[employer]ogy. Follow Up Care 12/03/2021 14:03:57 With:Tomy DUNN, RODERICK Cao, URO Address: When:6 months Comments:no labs [facility] 11-08-2022 Evaluation note* Encounter Date Diagnosis Assessment Notes [...] follow-up with the patient in 3 months. [facility] Other 10-07-2022 NoteMR#: [id number] I [facility] Pt. Name: Ignacio Amin Admitted: 02/15/2022 [...] who follows with Dr. Saeed in the [facility]. Over the past few months, [...] performed at bedside to assess function. Discontinued Ona-Sundar catheter. Oxygen requirements were beginning to be [...] AT DISCHARGE: Good. Stable. DISCHARGE DISPOSITION: [facility]. DISCHARGE MEDICATIONS: 1. Amiodarone 200 mg tablet [...] regarding the ca (more content not included)...[facility]06-13-2022 Hospital Discharge instructions Patient Education 12/03/2021 [...] including vitamins, herbs, eye drops, creams, and eutk-xlz-wxvnvrh medicines. Any problems you or family members [...] provider tells you to take them. Taking zxob-qmp-fcpbwob medicines, vitamins, herbs, and supplements. Eating and [...] 06/09/2006 Document Revised: 09/29/2019 Document Reviewed: 03/10/2019 CHAINels Patient Education 2020 Nulogy. Follow Up Care 10/01/2021 09:30:13 With:Tomy DUNN, RODERICK Cao, URO Address: [address] [place] [phone] When:Within 6 Month(s) Comments:with IPSS [facility] 04-11-2022 Hospital Discharge instructions Patient Education [...] 10:38:31 With:Patience Huitron Address: [address], [address] [address] [phone] Business (1) When: Unknown Comments:Call for followup appointment in 2-3 months With:Patience Huitron Address:Unknown When: Unknown [facility]04-05-2022 History of Present illness Narrative* G Abhijeet [...] included in the EMR. [facility]* Nurys Saleem RN - 09/25/2021 1:10 PM EDT AUA 12 Nurys Saleem RN [facility] Hospital Discharge instructions Patient Education 09/19/2021 10:07:32 [...] who: Are older than age 65. Are -Eth[place]ian. Are obese. Have a family history of [...] cells. Follow these instructions at home: Take ptou-sxu-zxdwyoy and prescription medicines only as told by [...] 06/09/2006 Document Revised: 05/22/2018 Document Reviewed: 02/17/2017 [employer]els Patient Education 2020 Nulogy. Follow Up Care 03/14/2021 14:47:29 With:Patience Huitron MD, URFeli, URO Address: [facility] Fernando MartinezB[facility] [address] [phone] Business (1) When: Unknown [facility] evaluation + Plan note Future Appointments Appointment Date:09/24/2021 09:15:00 AM Scheduled Provider: Location:[facility] Appointment Type:Urology CALL PAT FT Appointment Date:10/01/2021 09:30:00 AM Scheduled Provider: Location:[facility] Appointment Type:Urology FT [facility] evaluation + Plan note Future Appointments Appointment Date:09/24/2021 09:15:00 AM Scheduled Provider: Location:[facility] Appointment Type:Urology CALL PAT FT Appointment Date:10/01/2021 09:30:00 AM Scheduled Provider: Location:[facility] Appointment Type:Urology FT Diagnostic Tests Pending * Urine Culture [facility] Future Appointments Appointment Date:12/03/2021 01:00:00 PM Scheduled Provider:Patience Huitron MD Location:[facility] Appointment Type:URO [facility] Future Appointments Appointment Date:06/05/2022 09:15:00 AM Scheduled Provider:Patience Huitron MD Location:[facility] Appointment Type:URO Office Visit [facility] Evaluation + Plan note Future Appointments Appointment Date:12/04/2022 09:15:00 AM Scheduled Provider:Patience Huitron MD Location:[facility] Appointment Type:URO Office Visit [facility] evaluation + Plan note Future Appointments Appointment Date:04/16/2023 09:45:00 AM Scheduled Provider:Patience Huitron MD Location:[facility] Appointment Type:[facility]O [facility] Future Appointments Appointment Date:07/23/2023 09:45:00 AM Scheduled Provider:Patience Huitron MD Location:[facility] Appointment Type:URO Office Visit [facility] evaluation note* Diagnosis History of prostate cancer- Primary Personal history of malignant neoplasm of prostate documented in this encounter [facility] noteNo InformationNort [employer] Other Evaluation note* Diagnosis History of prostate cancer- Primary Personal history of malignant neoplasm of prostate documented in this encounter [facility] noteNo assessment information [facility] Work Phone: History and physical note Author Yung Yang [facility] December 13, 2022 10:31am Note Date/Time December 13, 2022 10:3 1am [facility] [address] [place] [address] Gastroenterology H&P Signed Patient: Ignacio Amin MR#: [id number] : 1945 Acct:[id number] Age/Sex: 77 / M Adm Date: 3 Loc: Room: Type: [facility] Attending Dr: Yung Yang MD Copies [...] M.D. Documented By: Yung Yang MD 12/13/22 103 Signed By: <Electronically signed by Yung Yang MD> 12/13/22 1031 [facility] Work Phone: History and physical note Author Yung Yang [facility] October 14, 2023 8:20am Note Date/Time October 14, 2023 8:2 0am [facility] [address] [place] [address] Gastroenterology H&P Signed Patient: Ignacio Amin MR#: [id number] : 1945 Acct:[id number] Age/Sex: 78 / M Adm Date: 4 Loc: Room: Type: [facility] Attending Dr: Yung Yang MD Copies to: MD Elliot Mary MD~ Date of Service: 10/14/2023 HISTORY & PHYSICAL: Patient's history with special attention to the cardiovascular, pulmonary systems and the current problem was reviewed with the patient immediately prior to the procedure. Present medications and doses reviewed in the EMR. Allergies and pertinent laboratory tests were also reviewedat this time in the EMR. The physical examination, as below, was then performed. Indication, assessment and HPI: 78-year-old man with family history of colon cancer(sister) and history of colon polyps here for surveillance colonoscopy Family history of GI malignancy? Yes PHYSICAL EXAMINATION General appearance: Pleasant, NAD Skin: No jaundice Head: NC/AT Eyes: Anicteric Neck: Supple Lungs: Normal respiratory effort, no use of accessory muscles Abdomen: Soft, nondistended Neuro: Ox3. REVIEW OF SYSTEMS Constitutional: Denies malaise, fevers Cardiovascular: Denies chest pain, palpitations Respiratory: Denies shortness of breath, wheezing Gastrointestinal: As per HPI Genitourinary: Denies dysuria, polyuria Musculoskeletal: Denies joint swelling, joint stiffness Neurological: Denies confusion, numbness, tingling Endocrine: Denies fatigue Written informed consent obtained from the [patient]. Risks (including but not limited to perforation, infection, bloating, bleeding, need for emergent surgery and loss of life), benefits and alternatives explained and questions answered. The [patient] verbalized understanding. Based on history patient is an appropriate candidate for the procedure. Yung Yang M.D. Documented By: Yung Yang MD 10/14/23818 Signed By: <Electronically signed by Yung Yang MD> 10/14/23 0820 [facility] Work Phone: History general Narrative - [...] History CARDIOVERSION 03/03/22 Hospitalization History SEE ABOVE [facility] Other History general Narrative - Reported* Type [...] pass surgery 01/2022 Hospitalization History SEE ABOVE [facility] Other History general Narrative - Reported* Type [...] LEFT THUMB 2022 Hospitalization History SEE ABOVE [facility] Other Hospital course Narrative No data available for this section [facility] Discharge instructions No data available for this section [facility] Discharge instructions Additional Instructions DISCHARGE INSTRUCTIONS [...] Do NOT operate machinery such as power [employer], lawn mowers, snow blowers, sewing machines, etc. [...] months -Follow up with PCP. -Office number [phone]. [facility] Work Phone: Progress note No data available for this section [facility] Summary Purpose Family History No Family History Records Found Relationship Condition Age at Onset Recorded Date/T kathy sister Malignant neoplasm of colon Unknown father Cardiovascular disease Unknown brother Myocardial infarction Unknown Relationship Condition Age at Onset Recorded Date/T kathy sister Malignant neoplasm of colon Unknown father Cardiovascular disease Unknown brother Myocardial infarction Unknown brother Heart disease Unknown Unknown father Unknown family member Unknown Not Specified Unknown Cerebrovascular accident (CVA) Unknown sister Malignant neoplasm Unknown Advance Directives No Advanced Directives Records Found Advance Directive Response Recorded Date/ Time Advance Directives No December 11 10:12am Reason for Referral Reason *Waiting for appt [facility] pt - due for screening Diagnosis 1 Screening for colon cancer (Z12.11) Referral Organization [facility] annette Referring Provider First Name Elliot Referring Provider Last Name Fran Referring Provider Specialty Family [facility] cine Referred Organization [facility] Gastroenterolo gy Referred Provider Yung Yang Referred Address [address] [facility],[address],[phone] Referred Provider Specialty Gastroentero logy Referral Priority Routine General Notes VandanaMo richya 12:25:45 PM >received today, sent P2P Chief Complaint and Reason for Visit Chief Complaint Screening Chief Complaint hx of colon polyps hx of colon polyps Additional Source Comments Source Comments (unrecognize d section and content) In the event this informatio n is protected by the Federal Confidentiality of Alcohol and Drug Abuse Patient Records regulations: The Federal rules restrict any use of the information to criminally investigate or prosecute any alcohol or drug abuse patient.[facility] HealthIn the event this information is protected by the Federal Confidentiality of Alcohol and Drug Abuse Patient Records regulations: The Federal rules restrict any use of the information to criminally investigate or prosecute any alcohol or drug abuse patient.[facility] Reason for Visit (unrecogniz ed section and content) Reason Comments [facility] Teams (unrecognized sec tion and content) Team Status: Active Member Role Status Dates Elilot Rosales MD Primary Care Provider Active Team Status: Active Member Role Status Dates Elliot Rosales MD Primary Care Provide r, Attending Provider Active Start: September 26, 2023 Team Status: Inactive Member Role Status Dates Elliot Rosales MD Primary Care Provider Active Start: October 14, 2023 End: October 14, 2023 Yung Yang MD Attending Provider Active Start: October 14, 2023 End: October 14, 2023 Team Status: Active Member Role Status Dates Elliot Rosales MD Primary Care Provider Active Start: October 14, 2023 Yung Yang MD Attending Provider, Other Provider Act ata Start: October 14, 2023 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 Relationship Specialty Start Date End Date Elliot Rosales MD [address] [place] [phone] PCP - General Family Practice 10/02/16 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 Relationship Specialty Start Date End Date Elliot Rosales MD [address] [facility] [address] PCP - General Family Medicine 10/02/16 Team Status: Inactive Member Role Status Dates Yung Yang MD Attending Provider Active Elliot Rosales MD Primary Care Provider Active (unrecognized sect ion and content) No Status Records FoundNo Status Records FoundNo Status Records FoundNo Status Records FoundNo Status Records FoundNo Status Records Found INFORMATION SOURCE (unrecogn ized section and content) DATE CREATED AUTHOR 04/01/2022 [facility] DATE CREATED AUTHOR AUTHOR'S ORGANIZ ATION 09/27/2022 [facility] DATE CREATED AUTHOR AUTHOR'S ORGANIZ ATION 10/05/2022 [facility] DATE CREATED AUTHOR AUTHOR'S ORGANIZ ATION 07/30/2023 [facility] DATE CREATED AUTHOR AUTHOR'S ORGANIZ ATION 10/15/2023 [facility] DATE CREATED AUTHOR AUTHOR'S ORGANIZ ATION 08/01/2024 [facility] FOR RECORDS PERTAINING TO PATIENTS WHO ARE [...] BE BASED ON THE PRIMARY CLINICAL RECORDS. [employer] [facility]. provides no warranty or guarantee of the accuracy or completeness of information in this document.
[2024-08-27] MEDS: BACITRACIN 0.9 GM PACKET 1 PACKET TOPICAL (15:55)
== END 2024-08-27 16:13 | disposition home or self-care (01) ==
PROVIDERS: Emergency Provider Emergency Medicine; PCP Family Medicine
DX: S62.522B Displaced fracture of distal phalanx of left thumb, initial encounter for open fracture (principal); W27.0XXA Contact with workbench tool, initial encounter
CPT/HCPCS: 29130; 73140; 99283

== ENCOUNTER 2024-10-21 12:53 | Outpatient (OUT) | payer MEDICARE, OTHER, SELFPAY ==
--- NOTE | 2024-10-21 12:56 | CT_ITS ---
The [address] [address] Patient Name: IGNACIO REYNOLDS MRN: [id number] date: 1945 Sex: M Assigned Patient Location: CT Current Patient Location: CT Accession/Order Number: [id number] Exam Date: 10/21/2024 13:59 Report Date: 10/21/2024 14:01 At the request of: ELLIOT ROSALES MD Procedure: CT chest wo con CT CHEST WITHOUT IV CONTRAST: CLINICAL HISTORY: history of nicotine dependence COMPARISON: CT chest 09/26/2023 TECHNIQUE: Spiral images were obtained through the chest without IV contrast. This CT exam was performed using one or more following dose reduction techniques: Automated exposure control, adjustment of the mA and/or kV according to patient size, or use of iterative reconstruction technique. FINDINGS: Mediastinum:Pacemaker device. Thoracic aorta appears normal in caliber. Pulmonary trunk appears nondilated. No pleural effusion. No lymphadenopathy. The esophagus is grossly unremarkable. Lungs:No consolidation pneumothorax or pleural effusion. Mild lung scarring. No suspicious pulmonary nodule. Abd:No acute findings. Soft tissues/Bones: No acute findings. Osseous structures demonstrate degenerative change. Sternotomy wires are noted. CT/CT chest wo con IMPRESSION: No acute process. No suspicious pulmonary nodule seen on today's study. Impression dictated by: Teodoro Hickey Jr., D.O. 10/21/2024 2:01 PM Dictation Location: [place] [address] Electronically authenticated by: [id number] Y Date: 10/21/2024 14:01
== END 2024-10-21 12:54 | disposition home or self-care (01) ==
LOC: CT 12:53
PROVIDERS: PCP Family Medicine; Visit Provider Family Medicine
DX: Z87.891 Personal history of nicotine dependence (principal)
CPT/HCPCS: 71250

== ENCOUNTER 2024-11-17 12:53 | Outpatient (OUT) | payer MEDICARE, OTHER, SELFPAY ==
--- NOTE | 2024-11-17 12:58 | CA_ITS ---
Patient Name: IGNACIO REYNOLDS MR#: [id number] : 1945 Exam Date: 11/17/2024 Ordering Doctor: DR CRISTIANO HOOD M.D. ECHOCARDIOGRAM REPORT PROCEDURE: CA ECHO DOPPLER COMPLETE INDICATIONS: Hypertrophic cardiomyopathy, CAD, ICD COMPARISON: None. DESCRIPTION: COMPLETE ECHOCARDIOGRAM Real-time transthoracic echocardiography with 2D, M-mode, spectral and color flow Doppler performed. QUALITY: Technical quality was good. LEFT VENTRICLE: Normal chamber size. Severe concentric left ventricular hypertrophy. Global left ventricular systolic function is normal. No significant increase in Doppler velocities in the LVOT with Valsalva. LV EF: Calculated left ventricular ejection fraction is 58%. Abnormal left ventricular myocardial strain measuring 9.4%. DIASTOLIC: Not adequately assessed due to heart rhythm. ATRIAL SEPTUM: LEFT ATRIUM: Severe dilatation. RIGHT ATRIUM: Moderate dilatation. RIGHT VENTRICLE: Normal chamber size. Normal right ventricular systolic function. Pacer wire present. TRICUSPID VALVE: Normal mobility and thickness. No stenosis with moderate regurgitation. Doppler studies reveal moderately elevated right sided pressures. RVSP 45mmHg MITRAL VALVE: Normal mobility and thickness. No evidence of mitral valve stenosis. Mild mitral annular calcification. Moderate mitral regurgitation. AORTIC VALVE: Normal trileaflet appearance. Thickened aortic valve. Normal leaflet mobility. No evidence of aortic valve stenosis. Mild aortic regurgitation. AORTIC ROOT: Normal diameter and appearance, measuring 3.3 cm. Mild dilatation of the ascending aorta measuring 3.8 cm. PULMONIC VALVE: Normal thickness and mobility. No stenosis. Mild regurgitation. PERICARDIUM: No evidence of pericardial effusion. IVC: Collapses with inspirations. Mild dilatation measuring 2.3cm PLEURA: CONCLUSION: 1. Severe concentric left ventricular hypertrophy with normal systolic function. LVEF is estimated at 55 to 60%. Global longitudinal strain is significantly reduced at -9.4%. No LVOT obstruction. 2. Normal right ventricular size and systolic function. 3. Moderate to severe biatrial dilatation. 4. Moderate mitral and tricuspid regurgitation. 5. Mild aortic regurgitation. 6. Moderately elevated right-sided pressures. RVSP is 45 mmHg. Adult Echocardiography Procedure Report Left Ventricle LVEDD (3.7 - 5.6 cm): 4.11 cm LVESD (2.2 - 4.0 cm): 3.26 cm LVIVS thickness (0.6 - 1.2 cm): 2.47 cm LVPW thickness (0.5 - 1.0 cm): 1.67 cm LVOT Max Gradient: 1.79 mm[Hg] LVOT Area (cm2): 0.67 m/s Peak Velocity (LVOT): 0.67 m/s Mean Velocity (LVOT): 0.46 m/s LVOT Diameter 2.12 cm Left Ventricular Ejection Fraction: 58.00 % Left Atrium LA Volume Index (2D A2C): 57.23 ml/m2 Left Atrium Systolic Dimension: 5.76 cm Mitral Valve MV E to A Ratio: 221.69 Mitral Valve A-Wave Peak Velocity: 0.00 m/s Mitral Valve E-Wave Peak Velocity: 1.08 m/s Right Ventricle RV Internal Diastolic Dimension: 3.51 cm Aorta AO Root Diam: 3.26 cm Ascending Ao Diam: 3.84 cm Aortic Valve AoV Area (Peak Slava): 2.10 cm2, 2.20 cm2 AoV Area (VTI): 2.10 cm2, 2.22 cm2 Deceleration [place]: 1.57 m/s2 Pressure Half-Time: 659.01 ms Peak Velocity(Antegrade Flow): 1.07 m/s, 1.17 m/s Peak Gradient(Antegrade Flow): 4.62 mm[Hg], 5.49 mm[Hg] Mean Velocity(Antegrade Flow): 0.67 m/s, 0.71 m/s Mean Gradient(Antegrade Flow): 2.25 mm[Hg], 2.53 mm[Hg] Velocity Time Integral: 18.46 cm, 20.56 cm Tricuspid Valve Peak Velocity (Regurgitant Flow): 2.53 m/s, 3.06 m/s, 2.53 m/s Pulmonic Valve Peak Velocity: 0.82 m/s Peak Gradient: 1.75 mm[Hg], 3.90 mm[Hg] Right Atrium Right Atrium Systolic Pressure: 74.98 ml, 74.98 ml Dictated by: Cristiano Hood M.D. on 11/17/2024 at 17:51 Approved by: Cristiano Hood M.D. on 11/17/2024 at 17:56
== END 2024-11-17 12:54 | disposition home or self-care (01) ==
LOC: CARD 12:53
PROVIDERS: PCP Family Medicine; Visit Provider Internal Medicine Interventional Cardiology
DX: I42.2 Other hypertrophic cardiomyopathy (principal); Z95.810 Presence of automatic (implantable) cardiac defibrillator; I25.119 Atherosclerotic heart disease of native coronary artery with unspecified angina pectoris
CPT/HCPCS: 93306; 93356

== ENCOUNTER 2025-01-03 12:11 | Outpatient (OUT) | payer MEDICARE, OTHER, SELFPAY ==
--- OUTSIDE RECORDS SUMMARY | 2025-01-03 12:14 | XMS_ITS | Clinical Summary ---
Author Organization [facility] Address [address] [place] [address] Care Team Providers Care Stogy Roller Name Role Phone Karina Peters MD Primary Care Provider [phone] Allergies Active Allergy Reactions Criticality Noted Date Comments Influenza Virus Vaccine Tv S plit 2010- (60 Yr +) Other 10/04/2014 Medications aspirin 81 mg EC tablet Take 1 tablet every day by oral route. Active tamsulosin (Flomax) 0.4 mg 24 hr capsule Take 1 capsule by mouth in the morning. Active melatonin 10 mg tablet Take by mouth. Activ e ferrous sulfate 325 (65 Fe) MG tablet Take 65 mg by mouth with breakfast. Active cholecalciferol (Vitamin D-3) 25 MCG (1000 UT) capsule 1 capsule 1 (one) time each day at the same time. 3 Active famotidine (Pepcid) 20 mg tabletIndication s:Paroxysmal atrial fibrillation (CMS/HCC) Take 1 tablet (20 mg) by mouth in the morning and at bedtime. 60 tablet 4 Active Additional Information Patient not taking.Reported on 10/26/2024 omeprazole (PriLOSEC) [address] anshulIndicatilindsey ns:Paroxysmal atrial fibrillation (CMS/HCC) Take 1 capsule (40 mg) by mouth before breakfast. Do not crush or chew. 30 capsule 4 Active Additional Information Patient not taking.Reported on 10/26/2024 atorvastatin (Lipitor) 80 mg tabletIndication s:Coronary artery disease, unspecified vessel or lesion type, unspecified whether angina present, unspecified whether [place] or transplanted heart Take 1 tablet (80 mg) by mouth at bedtime. 90 tablet 3 4 Active metoprolol succinate XL (Toprol-XL) 50 mg 24 hr tabletIndication s:Palpitations Take 1 tablet (50 mg) by mouth in the morning. 90 tablet 3 4 03/08/20 25 Active furosemide (Lasix) 20 mg tabletIndication s:Leg edema Take 1 tablet (20 mg) by mouth in the morning. 90 tablet 3 4 06/07/20 25 Active potassium chloride CR (Klor-Con M20) 20 mEq ER tabletIndication s:Primary hypertension Take 1 tablet (20 mEq) by mouth in the morning. Do not crush or chew. 90 tablet 3 5 11/30/19 26 Active apixaban (Eliquis) 5 mg tabletIndication s:Paroxysmal atrial fibrillation (CMS/HCC) Take 1 tablet (5 mg) by mouth two times daily. 180 tablet 3 5 11/30/19 26 Active Active Problems Problem Noted Date Diagnosed Date Hammer toe 10/26/2024 Paroxysmal atrial fibrillation 11/11/2023 Anticoagulated 12/20/2022 12/20/2022 OAB (overactive bladder) 12/20/2022 023 Pre-operative cardiovascular examination 023 Assessment & Plan (12/20/2022 9:51 AM EDT): RCRI-2 points Class III Risk 10.1 % 30-day risk of , [place], or cardiac arrest From a cardiology perspective [...] This is good for the next 6 months Implantable cardioverter-defibrillator (ICD) in situ 12/20/2022 Assessment & Plan (12/20/2022 9:54 AM EDT): Will schedule for ICD device interrogation RTC with Dr Mathews for evaluation of any recurrent A fib s/p CABG. History of heart attack 03/19/2022 Thrombophilia, associated wi th congenital heart disease, confirmed 03/19/2022 Anemia 03/19/2022 Benign prostatic hyperplasia with urinary obstru ction 03/19/2022 Former smoker 03/19/2022 Overview (03/19/2022): Added secondary to documentation in Social History. Assessment & Plan (12/20/2022 9:49 AM EDT): Remains compliant with smoking cessation Erectile dysfunction 03/19/2022 Microscopic hematuria 03/19/2022 Malignant neoplasm of prostate 03/19/2022 Urinary urgency 03/19/2022 Coronary artery disease invo lving [place] coronary artery of [place] heart with angina pectoris 03/15/2022 Assessment & Plan (12/20/2022 9:48 AM EDT): Coronary artery disease is stable without concerning symptoms Continue GDMT- ASA, toprol and lipitor continue risk factor modifications- heart healthy diet, regular exercise as tolerated and continue all medications. Ischemic heart disease 03/04/2022 Assessment & Plan (12/20/2022 9:49 AM EDT): Coronary artery disease is stable without concerning symptoms Dyspnea on exertion 03/04/2022 Assessment & Plan (12/20/2022 8:36 AM EDT): stable Hyperlipidemia 03/04/2022 Assessment & Plan (12/20/2022 8:38 AM EDT): Continue lipitor and lipid profile was well controlled on labs 2021 Hypertensive disorder 03/04/2022 Assessment & Plan (12/20/2022 9:49 AM EDT): Hypertension is well controlled at home and in office 137/74 Continue toprol, lasix History of prostate cancer 10/04/2015 Chronic duodenal ulcer 08/07/2010 Encounters Date Type Department Care Team Description 11/29/2024 Refill [facility] Heart at [address] [address] Narda Grajeda MA Primary hypertension; Paroxysmal atrial fibrillation (CMS/HCC) 11/18/2024 Orders Only [address] [address] Chanelle Cole MD 11/02/2024 9:30 AM EDT Office Visit [place] [address] [place] [address] Justin Mathews MD Paroxysmal atrial fibrillation (CMS/HCC) 11/02/2024 9:15 AM EDT Ancillary Procedure [address] [address] Encounter for implantable defibrillator reprogramming or check 10/26/2024 10:30 AM EDT Office Visit [address] [address] Donavan Saeed MD Implantable cardioverter-defibrill ator (ICD) in situ (Primary Dx); Coronary artery disease involving [place] coronary artery of [place] heart with angina pectoris; S/P ablation of atrial fibrillation; Cardiomyopathy, hypertrophic (CMS/HCC); Dyspnea on exertion 10/23/2024 Orders Only [facility] Card[facility] [address] [place] [phone] Justin Mathews MD from Last 3 Months Family History Medical History Relation Name Comments Coronary artery disease Father Diabetes Mother malignant tumor of colon Sister Relation Name Status Comments Father Mother Sister Social History Tobacco Use Types Packs/Day Years Used Date Smoking Tobacco: Former Cigarettes Q uit: 2021 Smokeless Tobacco: Never Tobacco Cessation:Counseling Given: Not Answered Alcohol Use Standard Drinks/Week Comments Yes 0 (1 standard drink = 0.6 oz pur e alcohol) Occasional [place] Safety & Environment Answer Date Rec orded Fear of Current or Ex-Partner Not on file Emotionally Abused Not on file 08/14/2023 Physically Abused Not on file 08/14/2023 Sexually Abused Not on file 08/14/2023 Physically or Sexually Abused Not on file Sex and Gender Information Value Date Recorded Sex Assigned at Male 03/19/2022 2:00 PM EDT Legal Sex Male 10:20 PM EDT Gender Identity Male 03/19/2022 2:00 PM EDT Sexual Orientation Heterosexual or Straight 02/22 2:00 PM EDT Last Filed Vital Signs Vital Sign Reading Time Taken Comments Blood Pressure 139/85 10/26/2024 10:26 AM EDT Pulse 70 10/26/2024 10:26 AM EDT Temperature 36 C (96.8 F) 12/11/2023 7:10 PM EDT Respiratory Rate 11 01/07/2024 10:38 AM EDT Oxygen Saturation 98% 10/26/2024 10:26 AM EDT Inhaled Oxygen Concentration - - Weight 90.7 kg (200 lb) 10/26/2024 10:26 AM EDT Height 175.3 cm (5' 9 ) 10/26/2024 10:26 AM EDT Body Mass Index 29.53 10/26/2024 10:26 AM EDT Plan of Treatment Upcoming Encounters Date Type Department Care Team (Late st Contact Info) Description 03/04/2025 Hospital Encounter [facility] Heart and Vascular Center Vascular Lab [address] [place] [address] Justin Mathews MD [address] [place] [phone] Scheduled Procedures Name Priority Associated Diagnoses Date/Ti me Atrial Fib Ablation w/ PVI Paroxysmal atrial fibrillation ([facility]/HCC) Health Maintenance Due Date Last Done Comments Medicare Annual Wellness (AWV) 1945 Depression Screening 1957 Adult Tetanus 1968 Fall Risk Screening 2011 COVID-19 Vaccine ( season) 2024 04/21/2022, 04/21/2022, 04/27/2021, Additional history exists Influenza Vaccine (#1) 2025 Zoster Vaccines Completed 01/24/2021, 11/08/2020 Pneumococcal Vaccine: 50+ Years Completed 05/05/2022, 03/21/2021, 11/19/2016 HIB Vaccines Aged Out No longer eligi ble based on patient's age to complete this topic HPV Vaccines Aged Out No longer eligi ble based on patient's age to complete this topic IPV Vaccines Aged Out No longer eligi ble based on patient's age to complete this topic Meningococcal B Vaccine Aged Out No l onger eligible based on patient's age to complete this topic Meningococcal Vaccine Aged Out No stephanie micah eligible based on patient's age to complete this topic Rotavirus Vaccines Aged Out No longer eligible based on patient's age to complete this topic Medical Devices Implanted Type Area Bottom Sander Device Identifier Shelf Expiration Date Model / Serial / Lot Icd ICD Chest Wall Procedures Procedure Name Priority Date/Time Associated Diagnosis Comments COMPLETE TRANSTHORACIC ECHO (TTE) W/WO IMAGING AGENT, STRAIN, 3D, BUBBLE STUDY Routine 11/17/2024 2:51 PM EDT CARDIAC DEVICE CHECK - IN CLINIC - ICD DUAL CHAMBER W/ PROG Routine 11/03/2024 11:12 AM EDT Encounter for implantable defibrillator reprogramming or check CARDIAC DEVICE CHECK - REMOTE - ICD Routine 10/23/2024 12:00 AM EDT from Last 3 Months Results * Complete Echo (TTE) w/wo Imaging Agent, Strain, 3D, Bubble Study (11/17/2024 2:51 PM EDT) Anatomical Region Laterality Modality Ultrasound Historical Provider CV ECHO PROCEDURES Final Result * CARDIAC DEVICE CHECK - IN CLINIC - ICD DUAL CHAMBER W/ PROG (11/03/2024 11:12 AM EDT) Anatomical Region Laterality Modality Other Narrative 11/17/2024 12:52 AM EDT By using the attestations below, the signing clinician agrees that I have read and verify that the documentation has been personally reviewed by me and ensure that the documentation accurately reflects the encounter. Routine EP device follow up as per schedule. Please see attached note Justin Mathews MD CV IMPLANTABLE CARDIAC DEVICE NV OCEDURES Final Result * Cardiac device check - Remote ICD (10/23/2024 12:00 AM EDT) Anatomical Region Laterality Modality Other 10/23/2024 Justin Mathews MD CV IMPLANTABLE CARDIAC DEVICE NV OCEDURES Final Result from Last 3 Months Insurance MEDICARE Member Subscriber Plan / Payer (Ef fective 2011-Present) Name:Boom Amin Member ID:[id number] Relation to Subscriber:Self Name:Boom Amin Subscriber ID:[id number] Payer ID:[id number] Group ID:Not on file Type:Medicare Address: [facility] [place] [id number] [address] [place] Advance Directives * Full Code (Latest Code Status on File) Date Activated Date Inactivated Comments 12/11/2023 4:18 PM 12/11/2023 10:42 PM Care Teams Stogy Roller Relationship Specialty Start Date End Date Karina Peters MD [address] [place] [address] #A PCP - General 02/13/22
--- OUTSIDE RECORDS SUMMARY | 2025-01-03 12:15 | XMS_ITS | Clinical Summary ---
Author Organization [facility] Address [address] [place] [id number] Care Team Providers Care Ward Service Supervisor Name Role Phone Karina Peters MD Primary Care Provider [phone] Allergies Active Allergy Reactions Criticality Noted Date Comments Influenza Virus Vaccine Tv S plit 2010- (60 Yr +) Intolerance 10/04/2014 Medications metoprolol succinate ER (TOPROL XL) 50 mg 24 hr tablet Take 50 mg by mouth once daily. Active atorvastatin (LIPITOR) 80 mg tablet Take 80 mg by mouth once daily. Active aspirin, enteric coated (ASPIRIN, ENTERIC COATED) 81 mg EC tablet Take 81 mg by mouth once daily. Active MULTIVITAMIN ORAL Take by mouth. Active VIT C/VIT E/LUTEIN/MIN/OME GA-3 (OCUVITE ORAL) Take by mouth. Active tamsulosin (FLOMAX) 0.4 mg Take 0.4 mg by mouth once daily. 09/17/2021 Active MYRBETRIQ 25 mg Tb24 Take 25 mg by mouth once daily. 09/19/2021 Active furosemide (LASIX) 20 mg tablet Take 10 mg by mouth once daily. Active potassium chloride SR (MICRO-K) 10 mEq CR capsule Take 10 mEq by mouth twice daily. Active apixaban (ELIQUIS) 5 mg tab(s) Take by mouth twice daily. Active diphenoxylate-at ropine (LOMOTIL) 2.5-0.025 mg per tablet Take 1 tablet by mouth four times daily as needed. Active melatonin 10 mg tab Take by mouth daily at bedtime. Active acetaminophen (TYLENOL) 325 mg tablet Take 650 mg by mouth every 6 hours as needed. Active Active Problems Problem Noted Date Diagnosed Date History of prostate cancer 10/04/2015 Family History Medical History Relation Comments Ovarian cancer Sister Relation Status Comments Sister Social History Tobacco Use Types Packs/Day Years Used Date Smoking Tobacco: Every Day Cigarettes Smokeless Tobacco: Never Tobacco Cessation:Ready to Q uit: No; Counseling Given: Yes Alcohol Use Standard Drinks/Week Comments Yes 0 (1 standard drink = 0.6 oz pur e alcohol) PHQ-2 Answer Date Recorded PHQ-2 score 0 09/24/2022 Area Deprivation Index Answer Date Cj rded National Score (1-100), lower number is lower ri sk 62 09/24/2022 State Score (1-10), lower number is lower risk N ot on file 09/24/2022 Data from: https://www.neighborhoodatlas.medicine.[facility].edu/. Last address used for calculation [id number] 09/24/2022 Sex and Gender Information Value Date Recorded Sex Assigned at Not on file Legal Sex Male 10:15 AM EST Gender Identity Not on file Sexual Orientation Not on file Last Filed Vital Signs Vital Sign Reading Time Taken Comments Blood Pressure 129/79 09/24/2022 1:03 PM EDT Pulse 60 09/24/2022 1:03 PM EDT Temperature 36.2 C (97.1 F) 09/24/2022 1:03 PM EDT Respiratory Rate 18 09/24/2022 1:03 PM EDT Oxygen Saturation 100% 09/24/2022 1:03 PM EDT Inhaled Oxygen Concentration - - Weight 86 kg (189 lb 9.6 oz) 09/24/2022 1:03 PM EDT Height - - Body Mass Index - - Plan of Treatment Health Maintenance Due Date Last Done Comments Anxiety Screening 1963 Depression Screening 1963 Hepatitis C Screening 1963 DTaP,Tdap,Td Vaccine (1 - Tdap) 1965 Pneumococcal Vaccine: 50+ (1 of 1 - PCV) 1996 Shingrix Vaccine (1 of 2) 1996 Medicare Annual Wellness Visit 06/23/2011 RSV Vaccine (1 - 1-dose 75+ series) 2021 Covid-19 Vaccine (3 - season) 2024, 08/17/2020 Advance Directive Discussion 06/23/2024 Influenza Vaccine (#1) 2025 Diabetes Screening 03/19/2025 03/19/2022 Insurance MEDICARE [facility] MEDIC[facility] SUPPLE[place] Care Teams Ward Service Supervisor Relationship Specialty Start Date End Date Karina Peters MD [address] [facility] [place] [phone] PCP - General Family Medicine 10/02/16
--- OUTSIDE RECORDS SUMMARY | 2025-01-03 12:15 | XMS_ITS | Clinical Summary ---
Author Organization [facility] Address [address] [place] [address] Care Team Providers Care Car Unloader Name Role Phone Unavailable Primary Care Provider Unavailabl e Social History Tobacco Use Types Packs/Day Years Used Date Smoking Tobacco: Never Assessed Sex and Gender Information Value Date Recorded Sex Assigned at Not on file Legal Sex Male 6:57 PM EDT Gender Identity Not on file Sexual Orientation Not on file Plan of Treatment Not on file Insurance MEDICARE
--- OUTSIDE RECORDS SUMMARY | 2025-01-03 12:15 | XMS_ITS ---
Author Organization [facility] Address [address] [place] [address] Care Team Providers Care Physical Education Teacher Name Role Phone Karina Peters MD Primary Care Provider [phone] Active Problems Problem Noted Date Diagnosed Date Hammer toe 10/26/2024 Paroxysmal atrial fibrillation 11/11/2023 Anticoagulated 12/20/2022 12/20/2022 OAB (overactive bladder) 12/20/2022 023 Pre-operative cardiovascular examination 023 Assessment & Plan (12/20/2022 9:51 AM EDT): RCRI-2 points Class III Risk 10.1 % 30-day risk of , [place], or cardiac arrest From a cardiology perspective [...] urgency 03/19/2022 Coronary artery disease invo lving [place] coronary artery of [place] heart with angina pectoris 03/15/2022 Assessment & [...] prostate cancer 10/04/2015 Chronic duodenal ulcer 08/07/2010 Current Treatment and Therapy Plans No current plan information found. Past Treatment and Therapy Plans No past plan information found. Lifetime Dose Tracking * Chemical Lifetime Dose Automatic Entry Manual Entr y Fluoro Time 3.8 minutes 0 minutes 3.8 minutes Air Kerma 40 mGy 0 mGy 40 mGy
--- OUTSIDE RECORDS SUMMARY | 2025-01-03 12:15 | XMS_ITS | Encounter Summary ---
Author Organization [facility] Address [address] [place] [address] Care Team Providers Care Underground Drill Operator Name Role Phone Karina Peters MD Primary Care Provider [phone] Reason for Visit * Reason Comments Med Refill Encounter Details Date Type Department Care Team (Late st Contact Info) Description 11/11/2022 Refill [facility] Heart at [facility] [address] [place] [address] Jannette Camarena CNP [address] [place] [address] Coronary artery disease involving [place] coronary artery of [place] heart without angina pectoris Social History Tobacco Use Types Packs/Day Years Used Date Smoking Tobacco: Every Day Cigarettes Smokeless Tobacco: Never Alcohol Use Standard Drinks/Week Comments Yes 0 (1 standard drink = 0.6 oz pur e alcohol) Occasional Sex and Gender Information Value Date Recorded Sex Assigned at Male 03/19/2022 2:00 PM EDT Legal Sex Male 10:20 PM EDT Gender Identity Male 03/19/2022 2:00 PM EDT Sexual Orientation Heterosexual or Straight 02/22 2:00 PM EDT documented as of this encounter Plan of Treatment Upcoming Encounters Date Type Department Care Team (Late st Contact Info) Description 03/04/2025 Hospital Encounter [facility] Heart and Vascular Center Vascular Lab [address] [place] [address] Justin Mathews MD [address] [place] [phone] Scheduled Procedures Name Priority Associated Diagnoses Date/Ti me Atrial Fib Ablation w/ PVI Paroxysmal atrial fibrillation (CMS/HCC) documented as of this encounter Visit Diagnoses Diagnosis Coronary artery disease involving [place] coronary artery of [place] heart without angina pectoris documented in this encounter Care Teams Underground Drill Operator Relationship Specialty Start Date End Date Karina Peters MD [address] [facility] #A PCP - General 02/13/22 documented as of this encounter
[2025-01-03 12:56] LABS: Hematocrit 43.8 % (42.0-54.0); Hemoglobin 14.0 g/dL (14.0-18.0); Mean Corpuscular HGB Conc 32.0 g/dL (29.9-35.2); Mean Corpuscular Hemoglobin 30.1 pg (25.9-34.0); Mean Corpuscular Volume 94.2 fL (80.0-94.0); Platelet Count 202 10^3/uL (150-450); Red Blood Count 4.65 10^6/uL (4.70-6.10); White Blood Count 5.4 10^3/uL (4.0-11.0)
[2025-01-03 13:03] LABS: Glucose Urine UA NEGATIVE (NEGATIVE)
[2025-01-03 13:08] LABS: Albumin Level 3.6 g/dL (3.4-5.0); Anion Gap 12.1; Blood Urea Nitrogen 26.0 mg/dL (7.0-18.0); Calcium 9.6 mg/dL (8.5-10.1); Carbon Dioxide 31.2 mmol/L (21.0-32.0); Chloride 107 mmol/L (98-107); Estimated GFR (African America >60 (>=60 mL/min/1.73m^2); Estimated GFR (Non-African Ame 52 (>=60 mL/min/1.73m^2); Glucose 126 mg/dL (74-106); Magnesium 2.0 mg/dL (1.8-2.4); Potassium 4.3 mmol/L (3.5-5.1); Sodium 146 mmol/L (136-145); Uric Acid 7.6 mg/dL (3.5-7.2)
[2025-01-03 14:02] LABS: Protein Creatinine Ratio Urine 0.21; Total Protein Urine Random 18.7 mg/dL (<=11.9)
[2025-01-03 14:46] LABS: Iron 60.0 ug/dL (65.0-175.0); Percent Iron Saturation 18.7 %; Total Iron Binding Capacity 321.0 ug/dL (250.0-450.0)
== END 2025-01-03 12:12 | disposition home or self-care (01) ==
LOC: LAB 12:12
PROVIDERS: PCP Family Medicine; Visit Provider Internal Medicine Nephrology
DX: E87.6 Hypokalemia (principal); Z85.46 Personal history of malignant neoplasm of prostate; N18.31 Chronic kidney disease, stage 3a; D64.9 Anemia, unspecified; I12.9 Hypertensive chronic kidney disease with stage 1 through stage 4 chronic kidney disease, or unspecified chronic kidney disease
CPT/HCPCS: 36415; 80069; 81003; 82306; 82570; 83540; 83550; 83735; 83970; 84156; 84550; 85027

== ENCOUNTER 2025-03-15 11:18 | Outpatient (OUT) | payer MEDICARE, OTHER, SELFPAY ==
--- OUTSIDE RECORDS SUMMARY | 2025-03-15 11:25 | XMS_ITS | CCD ---
Author Organization [facility] Care Team Providers Care Assistant Winemaker Name Role Phone ELLIOT ROSALES Primary Care Physician Elliot Rosales MD Primary Care Provider Christiane [...] Primary Care Unavailable BAKHOUS, AZIZ Attending Unavailable JULITA AZIZ Consulting Unavailable JULITA AZIZ Admitting Unavailable DR ELLIOT ROSALES Primary Care Unavailable TIBURCIOELEDiomedes, DR CRISTIANO Husain Attending Unavailable YANIRA, DR CRISTIANO Husain Consulting Unavailable YANIRA, DR CRISTIANO Husain Admitting Unavailable DR ELLIOT ROSALES Primary Care Unavailable ELTAHAWY, EHAB Admitting Unavailable ELTAHAWY, EHAB Attending Unavailable ELTAHAWY, EHAB Consulting Unavailable Elliot Rosales MD Primary Care Provider Ema DOYLE Referring Unavailable Ema DOYLE Attending Unavailable ELLIOT ROSALES Primary Care Unavailable MD Yung Yang Attending Provider [phone] MD Elliot Rosales Primary Care Provider Patience Huitron Attending Unavailable Patience Huitron Attending Unavailable Patience Huitron Referring Unavailable Patience Huitron Referring Unavailable Patience Huitron Admitting Unavailable Patience Huitron Attending Unavailable Patience Huitron Attending Unavailable MD Elliot Rosales Primary Care Provider MD Yung Yang Attending Provider Elliot Rosales Primary Care Unavailable Asaad, Imad Admitting Unavailable Asaad, Imad Attending Unavailable Elliot Rosales Primary Care Unavailable Asaad, Imad Admitting Unavailable Asaad, Imad Attending Unavailable Elliot Rosales MD Primary Care Provider [phone] Elliot Rosales MD Attending Provider Jenifer Jensen MD Attending Provider RUTH URRUTIA Attending Unavailable RUTH URRUTIA Attending Unavailable RUTH URRUTIA Referring Unavailable ELTAHAWY, EHAB Attending Unavailable RUTH URRUTIA Referring Unavailable LEE, AGUSTIN Referring Unavailable RUTH URRUTIA Referring Unavailable RUTH URRUTIA Referring Unavailable RUTH URRUTIA Referring Unavailable Allergies Allergy Classification Reported Allergen(s) Allergy Type Date of Onset Reaction(s) Facility (10 sources) flu vaccines; Translations: [flu vaccines] Allergy to substance 3 Unknown [facility] (4 sources) Influenza Virus Vaccine Tv Split 2011-05 (60 Yr +); Translations: [INFLUENZA VIRUS VACCINE TV SPLIT 2011-05 (60 YR +)] Drug Intolerance 5 Intolerance [facility] (1 source) flu virus vaccine tv 2014- (18 yr and up),recomb Drug allergy (disorder) 6 [facility] Repository (12 sources) Influenza Vac A&B Surf Ant Adj Drug allergy 4 rash, vomiting [facility] (1 source) Flu Vaccine tvs 2011-05(65yr+) Drug allergy (disorder) 3 [facility] Repository (1 source) No Known Medication Allergies; Translations: [No Known Medication Allergies] Propensity to adverse reactions (disorder) [facility] Repository (5 sources) Influenza Virus Vaccines; Translations: [Influenza Virus Vaccines] Allergy to substance 3 Unknown Reaction [facility] Medications Current Medications Medication Drug Class(es) Dates Sig (Normalized) Sig (Original) acetaminophen 500 mg oral tablet (20 sources) Start: 12-13-2022 take 1 tablet by mouth every six hours as needed for pain Acetaminophen 500 mg Tablet Active 500 MG PO Q6H as needed for Pain December 13, 2022 12:00am Complies with drug therapy Start: 03-14-2021 take 1 mg by mouth [...] mouth every 6 hours as needed. Antiox.Mv No.85-[id number]-Ze a (I-Caps) 280-10-2 mg Capsule (5 sources) Start: 12-13-2022 take 1 capsule by mouth once daily Antiox.Mv No.03-Smfo9c-Txe-Ze a (I-Caps) 280-10-2 mg Capsule Active 1 CAP PO Daily December 13, 2022 12:00am Complies with drug therapy Start: 12-13-2022 take 1 capsule by mo [facility] once daily Antiox.Mv No.10-Tfja4v-DyhNtyo6s-Wwe-Rqp (I-Caps) 280-10-2 mg Capsule Active 1 CAP PO Daily December 13, 2022 12:00am apixaban 5 mg oral tablet (19 sources) Factor Xa Inhibitor Start: 12-28-2024 take 1 tablet by mouth twice daily Apixaban (Eliquis) 5 mg tablet Active 5 MG PO Twice daily December 28, 2024 12:00am Complies with drug therapy Start: 06-05-2022 End: 10-14-2023 take 1 tablet by mouth twice daily Apixaban (Eliquis) 5 mg tablet Discontinued 5 MG PO Twice daily December 13, 2022 12:00am October 14, 2023 7:07am take 1 tablet by andrey every twelve hours Eliquis 2.5 MG 1 tablet Orally Twice a day Active Comment on above: Take by mouth twice daily. atorvastatin 80 mg oral tablet (20 sources) HMG-CoA Reductase Inhibitor Start: 03-14-20 take 1 tablet by mouth once daily Atorvastatin 80 mg tablet Active 80 MG PO Daily December 13, 2022 12:00am Complies with drug therapy Comment on above: Take 80 mg by mouth once daily. atropine sulfate 0.025 mg / diphenoxylate hydrochloride 2.5 mg oral tablet (13 sources) Anticholinergic, Cholinergic Muscarinic Antagonist, Antidiarrheal Start: 10-14-19 24 Diphenoxylate-Atropi ne (Lomotil) 2.5-0.025 mg tablet Active 1 TAB PO As Directed as needed for diarrhea October 14, 2023 12:00am Complies with drug therapy Start: 08-27-2022 take 1 tablet by andrey [...] oral capsule (3 sources) Cephalosporin Antibacterial Start: take 1 capsule by mouth once daily Keflex 500 mg Cap 500 mg = 1 cap(s), Oral, Daily, Start 1 day prior to procedure, # 2 cap(s), Refills(s) 0, Pharmacy: [facility], 180, cm, 09/19/21 9:42:00 EDT, Height/Length Dosing, 86, kg, 09/19/21 9:42:00 EDT, Weight Dosing Start Date: 09/19/21 Status: Ordered cholecalciferol 0.025 mg oral capsule (5 sources) Vitamin D Start: 024 take 1 capsule by mouth once daily Cholecalciferol (Vitamin D3) 25 mcg (1,000 unit) capsule Active 25 MCG PO Daily October 14, 2023 12:00am Complies with drug therapy take 1 tablet by andrey th every twenty-four hours Vitamin D 25 MCG (1000 UT) 1 tablet Orally Once a day Active diazePAM 10 mg oral tablet (1 source) Benzodiazepine Start: 02-12-2023 Valium 10 mg T ab 10 mg = 1 tab(s), Oral, Once, PRN for anxiety, take 1 hour prior to scheduled procedure, # 1 tab(s), Refills(s) 0, Pharmacy: [facility], 180, cm, 12/04/22 9:13:00 EDT, Height/Length Dosing, 88, kg, 12/04/22 9:13:00 EDT, Weight Dosing Start Date: 02/12/23 Status: Ordered ferrous sulfate 160 mg extended release oral tablet (4 sources) Start: 10-14-2023 take 1 tablet by mouth once daily Ferrous Sulfate, Dried (Slow Release Iron) 160 mg (50 mg iron) tablet extended release Active 160 MG PO Daily October 14, 2023 12:00am Complies with drug therapy furosemide 20 mg oral tablet (20 sources) Loop Diuretic Start: 06-05-2022 take 1 tablet by mouth once daily Furosemide 20 mg tablet Active 20 MG PO Daily December 13, 2022 12:00am Complies with drug therapy take 10 mg by mouth once daily [...] Status: Ordered melatonin 10 mg oral tablet (15 sources) Start: 12-13-2022 take 1 tablet by mouth at bedtime as needed for sleep Melatonin 10 mg Tablet Active 10 MG PO Bedtime as needed for Sleep December 13, 2022 12:00am Complies with drug therapy take 1 capsule by mo uth every [...] sources) beta-Adrenergic Ash Start: 03-14-2021 take 1 tablet by mouth once daily Metoprolol Succinate 50 mg tablet extended release 24 hr Active 50 MG PO Daily December 13, 2022 12:00am Complies with drug therapy Comment on above: Take 50 mg by mouth once daily. Multivitamin preparation (9 sources) take 1 tablet by mouth once daily Multi Vitamin - 1 tablet Orally Once a day Active Multivitamin-Minerals- Lutein (Centrum Silver) Tablet (5 sources) Start: 12-13-2022 take 1 tablet by mouth once daily Multivitamin-[place] ls-Lutein (Centrum Silver) Tablet Active 1 TAB PO Daily December 13, 2022 12:00am Complies with drug therapy Start: 12-13-2022 take 1 tablet by andrey th once daily Xqybrwwikdym-Vullhvgl-Bcmbxo (Centrum Silver) Tablet Active 1 TAB PO Daily December 13, 2022 12:00am microencapsulated potassium chloride 20 meq extended release oral tablet (15 sources) Start: 10-14-2023 take 1 tablet by mouth once daily Potassium Chloride 20 mEq tablet,ER particles/crystals Active 20 MEQ PO Daily October 14, 2023 12:00am Complies with drug therapy Start: 07-23-2023 Potassium Chlo ride (Kpt-Bblg-Liy M20) 20 mEq oral tablet, extended release Refills(s) 0 Start Date: 07/23/23 Status: Ordered take 1 capsule by mo [facility] every twenty-four hours Potassium Chloride ER 10 MEQ 1 tablet with food Orally Once a day Active potassium chlori de SR (MICRO-K) 10 mEq CR capsule Take 10 mEq by mouth twice daily. 0 Active [facility] Potassium Chloride ER 20 MEQ 1 tablet with food Orally Once a day Active Comment on above: Take 10 mEq by mouth twice daily. Slow Release Iron 160 (50 Fe) MG (3 sources) take 1 tablet by mouth once daily Slow Release Iron 160 (50 Fe) MG 1 tablet Orally Once a day Active Turmeric extract (5 sources) Start: 03-14-2021 take [...] 1/2 tablet Orally Once a day Not-Taking aspirin 81 mg delayed release oral tablet (20 sources) Platelet Aggregation Inhibitor, Nonsteroidal Anti-inflammatory Drug Start: 12-13-2022 End: 12-28-2024 take 1 tablet by mouth once daily Aspirin (Aspir-81) 81 mg Tablet,Delayed Release (Dr/Ec) Discontinued 81 MG PO Daily December 13, 2022 12:00am Arianna 8th, 2025 10:06am Start: 03-14-2021 take 1 mg by mouth e very four hours aspirin 81 mg oral capsule mg cap(s), Oral, q4hr, Refills(s) 0 Start Date: 03/14/21 Status: Ordered Comment on above: Take 81 mg by mouth once daily. cefdinir 300 mg oral capsule (3 sources) Cephalosporin Antibacterial Start: 11-04-19 End: 06-29-19 take 1 capsule by mouth twice daily Cefdinir 300 mg capsule Discontinued 300 MG PO Twice daily November 04, 2023 12:00am June 29, 2024 11:29am 24 hr mirabegron 25 mg extended release oral tablet (20 sources) beta3-Adrenergic Agonist Start: 09-20-19 End: 10-14-19 take 1 tablet by mouth once daily [...] 1 tablet Orally Once a day Not-Taking tamsulosin hydrochloride 0.4 mg oral capsule (20 sources) alpha-Adrenergic Ash Start: 03-14-20 End: 01-12-20 take 1 capsule by mouth once daily Tamsulosin 0.4 mg capsule Discontinued 0.4 MG PO Daily December 13, 2022 12:00am January 11, 2025 9:56am Comment on above: Take 0.4 mg by mouth once daily. Vit C-E-Zinc Ag-Wyeg-Ojc-Zeax 250 mg-200 unit -12.5 mg-1 mg capsule (3 sources) Start: 09-01-19 End: 12-29-19 Vit C-E-Zinc Fb-Uoyo-Qbt-Zeax 250 mg-200 unit -12.5 mg-1 mg capsule Discontinued CAP PO August 31, 2024 12:00am December 28, 2024 10:07am Start: 08-31-2024 Vit C-E-Zinc O o-Rqyc-Fwh-Zeax 250 mg-200 unit -12.5 mg-1 mg capsule Active CAP PO August 31, 2024 12:00am VIT C/VIT E/LUTEIN/MIN/OMEGA -3 (OCUVITE ORAL) (2 sources) VIT C/VIT E/LUTE IN/MIN/OMEGA-3 (OCUVITE ORAL) Take by mouth. 0 Active [...] of prostate] Onset: 10-04-2015 Episodic Cardiac dysrhythmias (10 sources) Paroxysmal atrial fibrillation; Translations: [Atrial fibrillation] Onset: 05-22-2022 Chronic Chronic kidney disease (15 sources) Chronic kidney disease stage 3A ; Translations: [Chronic kidney disease, stage 3a] 06-29-2024 Chronic Chronic obstructive pulmonary disease and bronchiectasis (3 sources) Bronchitis; Translations: [Bronchitis, not specified as acute or chronic] 11-04-2023 Episodic Conduction disorders (4 sources) Encounter for adjustment and management of automatic implantable cardiac defibrillator; Translations: [Presence of automatic (implantable) cardiac defibrillator] Onset: 12-20-2022 Chronic Coronary atherosclerosis and other heart disease (8 sources) Atherosclerotic heart disease of [place] coronary artery without angina pectoris; Translations: [Coronary atherosclerosis due to lipid rich plaque] Onset: 03-15-2022 Chronic Coronary atherosclerosis and other heart disease (3 sources) Presence of aortocoronary bypass graft Episodic Deficiency and other anemia (13 sources) Anemia; Translations: [Anemia, unspecified] 03-14-2021 Episodic Deficiency and other anemia (4 sources) Anemia, unspecified; Translations: [Anemia, unspecified] Episodic Fluid and electrolyte disorders (6 sources) Hypokalemia; Translations: [Hypokalemia] Episodic Gastroduodenal ulcer (except hemorrhage) (6 sources) Chronic duodenal ulcer Onset: 08-07-2010 12-03-2021 Chronic Genitourinary symptoms and ill-defined conditions (20 sources) Microscopic hematuria; Translations: [Other microscopic hematuria] Onset: 09-19-2021 Episodic Hyperplasia of prostate (17 sources) Benign prostatic hypertrophy with outflow obstruction; Translations: [Benign prostatic hyperplasia with lower urinary tract symptoms] Onset: 09-19-2021 Chronic Hypertension with complications and secondary hypertension (11 sources) Hypertensive heart disease without heart failure; Translations: [Hypertensive renal disease] Onset: 06-18-2022 Chronic Nutritional deficiencies (2 sources) Vitamin D deficiency; Translations: [Vitamin D deficiency, unspecified] 01-11-2025 Chronic Nutritional deficiencies (2 sources) Iron deficiency; Translations: [Iron deficiency] 01-11-2025 Episodic Open wounds of extremities (4 sources) Laceration of thumb; Translations: [Laceration without foreign body of unspecified thumb with damage to nail, initial encounter] 09-01-2024 Episodic Other aftercare (5 sources) Long-term current use of anticoagulant; Translations: [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 anticoagulants] Onset: 06-05-2022 Episodic [...] and reflux uropathy] Onset: 10-01-2021 Episodic Other endocrine disorders (2 sources) Hyperparathyroidism; Translations: [Hyperparathyroidism, unspecified] 01-11-2025 Chronic Other gastrointestinal disorders (2 sources) Diarrhea, unspecified Episodic Other gastrointestinal disorders (1 source) Functional diarrhea Episodic Other male genital disorders (1 source) Erectile dysfunction following radiation therapy; Translations: [Erectile dysfunction due to and following radiation therapy] Onset: 09-19-2021 Chronic Other male genital disorders (9 sources) Impotence 03-14-2021 Chronic Other nutritional; endocrine; and metabolic disorders (2 sources) Hyperuricemia; Translations: [Hyperuricemia without signs of inflammatory arthritis and tophaceous disease] 01-11-2025 Episodic Other screening for suspected conditions (not mental disorders or infectious disease) (3 sources) Abnormal result of other cardiovascular function study; Translations: [Encounter for screening for malignant neoplasm of colon] Onset: 02-15-2022 Episodic Honey-; endo-; and myocarditis; cardiomyopathy (except that caused by tuberculosis or sexually transmitted disease) (2 sources) Other hypertrophic cardiomyopathy; Translations: [Other hypertrophic cardiomyopathy] Onset: 10-26-2024 Chronic Screening and history of mental health and substance abuse codes (2 sources) Personal history of nicotine dependence; Translations: [History of nicotine dependence] 10-18-2024 Episodic Substance-related disorders (9 sources) Smoker 03-14-2021 [...] Other Problems Problem Classification Problem Date Documented Date Episodic/Chronic Chronic kidney disease (4 sources) Chronic kidney disease Nonspecific chest pain (4 sources) Chest pain, unspecified; Translations: [CHEST PAIN UNSPECIFIED] Onset: 02-07-2022 Episodic Other aftercare (1 source) Other prison (current) drug therapy; Translations: [OTH CLAIMS PROCESSOR CURRENT DRUG THERAPY] Onset: 05-25-2022 Episodic Other circulatory disease (2 sources) Personal history of other diseases of the circulatory system; Translations: [Personal history of other diseases of the circulatory system] Onset: 10-26-2024 Episodic Other lower respiratory disease (4 sources) Shortness of breath; Translations: [SHORTNESS OF BREATH] Onset: 06-03-2022 Episodic Other lower respiratory disease (2 sources) Other forms of dyspnea; Translations: [Other forms of dyspnea] Onset: 03-04-2022 Episodic Residual codes; unclassified (2 sources) Other specified postprocedural states; Translations: [Other specified postprocedural states] Onset: 10-26-2024 Episodic Results Test Name Value Interpretation Reference Range Facility Prep for Procedureon 025 Prep for Procedure [id number] Hans Amin E 1945 M Date Provider Department Center 03/09/2025 Lashawn-BLANCA [facility] Family History Problem Relation Age of Onset Diabetes Mother Coronary artery disease Father Other Sister Family Status - Relation Status Age at Mother Father Sister Normal [facility] Orders Onlyon 01-22-2025 Orders Only [id number] Hans Amin E 1945 M Date Provider Department Center 01/22/2025 241-[id number] URRUTIA HVC CARD [facility] Family History Problem Relation Age of Onset Diabetes Mother Coronary artery disease Father Other Sister Family Status - Relation Status Age at Mother Father Sister Normal [facility] Erythrocyte distribution wid th Auto (RBC) [Ratio]Ordered By: Jenifer Jensen on 01-03-2025 Erythrocyte distribution width (RBC) [Ratio] 15.1 % High 11.0-15.0 [facility] Estimated glomerular filtrat ion rate (GFR) non- AmericanOrdered By: Jenifer Jensen on 01-03-2025 GFR/1.73 sq M.predicted among non-blacks MDRD (S/P/Bld) [Vol rate/Area] 52 mL/min/{1.73_m2} Low >=60 mL/min/1.73 m 2 [facility] Hematocrit Auto (Bld) [Volum e fraction]Ordered By: Jenifer Jensen on 01-03-2025 Hematocrit (Bld) [Volume fraction] 43.8 % 42.0-54.0 [facility] Hemoglobin [Mass/volume] in BloodOrdered By: Jenifer Jensen on 01-03-2025 Hemoglobin (Bld) [Mass/Vol] 14.0 g/dL 14.0-18.0 [facility] Iron binding capacity [Mass/ volume] in Serum or PlasmaOrdered By: Jenifer Jensen on 01-03-2025 Iron binding capacity [Mass/Vol] 321.0 ug/dL 250.0-450.0 [facility] Iron saturation [Mass Fracti on] in Serum or PlasmaOrdered By: Jenifer Jensen on 01-03-2025 Iron saturation [Mass fraction] 18.7 % [facility] Laboratory - Chemistry and C hemistry - challengeOrdered By: Jenifer Jensen on 01-03-2025 Albumin [Mass/Vol] 3.6 g/dL 3.4-5.0 [facility] Calcium [Mass/Vol] 9.6 mg/dL 8.5-10.1 [facility] Chloride [Moles/Vol] 107 mmol/L 98-107 [facility] CO2 [Moles/Vol] 31.2 mmol/L 21.0-32.0 [facility] Creatinine [Mass/Vol] 1.33 mg/dL High 0.70-1.30 [facility] GFR/1.73 sq M.predicted MDRD (S/P/Bld) [Vol rate/Area] mL/min/{1.73_m2} >=60 mL/min/1.73 m 2 [facility] Glucose [Mass/Vol] 126 mg/dL High 74-106 [facility] Iron [Mass/Vol] 60.0 ug/dL Low 65.0-175.0 [facility] Magnesium [Mass/Vol] 2.0 mg/dL 1.8-2.4 [facility] Potassium [Moles/Vol] 4.3 mmol/L 3.5-5.1 [facility] Sodium [Moles/Vol] 146 mmol/L High 136-145 [facility] Urate [Mass/Vol] 7.6 mg/dL High 3.5-7.2 [facility] Urea nitrogen [Mass/Vol] 26.0 mg/dL High 7.0-18.0 [facility] Urea nitrogen/Creatinine [Mass ratio] 19.5 mg/mg [facility] Bilirubin Ql (U) Negative NEGATIVE [facility] Glucose (U) [Mass/Vol] Negative NEGATIVE [facility] Ketones Ql (U) Negative NEGATIVE [facility] pH (U) 5.5 [pH] 5.0-9.0 [facility] Specific gravity (U) [Rel density] 1.020 1.005-1.025 [facility] Urobilinogen Qn (U) 0.2 {Kayce'U}/dL 0.2-1.0 [facility] Laboratory - Specimen inform ationOrdered By: Jenifer Jensen on 01-03-2025 Appearance (U) CLEAR CLEAR [facility] Color (U) YELLOW YELLOW [facility] Laboratory - UrinalysisOrder ed By: Jenifer Jensen on 01-03-2025 Leukocyte esterase Test strip Ql (U) Negative NEGATIVE [facility] Nitrite Ql (U) Negative NEGATIVE [facility] Protein (U) [Mass/Vol] 18.7 mg/dL High <=11.9 [facility] Protein Ql (U) Negative NEG/TRACE [facility] Leukocytes [#/volume] correc giuliano for nucleated erythrocytes in Blood by Automated counOrdered By: Jenifer Jensen on 01-03-2025 WBC corrected for nucl RBC Auto (Bld) [#/Vol] 5.4 10 3/uL 4.0-11.0 [facility] MCH Auto (RBC) [Entitic mass ]Ordered By: Jenifer Jensen on 01-03-2025 MCH (RBC) [Entitic mass] 30.1 pg 25.9-34.0 [facility] MCHC Auto (RBC) [Mass/Vol]Or dered By: Jenifer Jensen on 01-03-2025 MCHC (RBC) [Mass/Vol] 32.0 g/dL 29.9-35.2 [facility] MCV Auto (RBC) [Entitic vol] Ordered By: Jenifer Jensen on 01-03-2025 MCV (RBC) [Entitic vol] 94.2 fL High 80.0-94.[address] [facility] No Panel InformationOrdered By: Jenifer Jensen on 01-03-2025 25-Hydroxy Vitamin D Total 35.3 ng/mL [facility] Comment on above: <20 ng/mL Vit D defi cient20-<30 ng/mL Vit D cdcmxwktnohs88-380 ng/mL Vit D sufficient>100 ng/mL Potential Toxicity Miscellaneous Test COMMENT . [facility] Comment on above: Test Ordered: [id number] FerritinFerritin 142 ng/mL CB Reference Range: 30-400Performed at: CB - [facility] [address] [id number] Director: Edwardo Grande PhD, Phone: [phone] Parathyroid Hormone (Intact) 69 pg/mL Abnormal 15-65 [facility] Comment on above: Performed at: CB - [facility] [address] [id number] Director: Edwardo Grande PhD, Phone: [phone] Phosphorus Level 3.2 mg/dL 2.6-4.7 [facility] Urine Occult Blood Negative NEGATIVE [facility] Urine Random Creatinine 89.85 mg/dL 20.0 0-300.0 0 [facility] Platelet mean volume Auto (B ld) [Entitic vol]Ordered By: Jenifer Jensen on 01-03-2025 Platelet mean volume (Bld) [Entitic vol] 11.0 fL 9.5-13.5 [facility] Platelets Auto (Bld) [#/Vol] Ordered By: Jenifer Jensen on 01-03-2025 Platelets (Bld) [#/Vol] 202 10 3/uL 150-450 [facility] RBC Auto (Bld) [#/Vol]Ordere d By: Jenifer Jensen on 01-03-2025 RBC (Bld) [#/Vol] 4.65 10 6/uL Low 4.70-6.10 [facility] Serum or plasma anion gap de terminationOrdered By: Jenifer Jensen on 01-03-2025 Anion gap [Moles/Vol] 12.1 mmol/L [facility] Urine protein/creatinine rat ioOrdered By: Jenifer Jensen on 01-03-2025 Protein/Creatinine (U) [Ratio] 0.21 [facility] Orders Onlyon 11-18-2024 Orders Only [id number] Hans Amin 1945 M Date Provider Department Center 11/18/2024 [id number], HISTORICAL CARD [facility] Family History Problem Relation Age of Onset Diabetes Mother Coronary artery disease Father Other Sister Family Status - Relation Status Age at Mother Father Sister Normal [facility] Office Visiton 11-02-2024 Follow-up visit [id number] Samir Aminheather moeller E 1945 M Date Provider Department Center 11/02/2024 RUTH BAIG CARD [facility] Family History Problem Relation Age of Onset Diabetes Mother Coronary artery disease Father Other Sister Family Status - Relation Status Age at Mother Father Sister Level of Service:49825 AL OFFICE/OUTPATIENT ESTABLISHED MOD MDM 30 MIN Normal [facility] Office Visiton 10-26-2024 Follow-up visit [id number] BrennanSamirheather moeller E 1945 M Date Provider Department Center 10/26/2024 Nely-DONAVAN SAEED CARD [facility] Family History Problem Relation Age of Onset Diabetes Mother Coronary artery disease Father Other Sister Family Status - Relation Status Age at Mother Father Sister Level of Service:[id number] AL OFFICE/OUTPATIENT ESTABLISHED MOD MDM 30 MIN Normal [facility] Orders Onlyon 10-23-2024 Orders Only [id number] Samir Aminheather moeller E 1945 M Date Provider Department Center 10/23/2024 RUTH BAIG [facility] CARD [facility] Family History Problem Relation Age of Onset Diabetes Mother Coronary artery disease Father Other Sister Family Status - Relation Status Age at Mother Father Sister Normal [facility] Erythrocyte distribution wid th Auto (RBC) [Ratio]on 06-21-2024 Erythrocyte distribution width (RBC) [Ratio] Erythrocyte distribution width [Ratio] by Automated count 11.0-15.0 [facility] Estimated glomerular filtrat ion rate (GFR) non- Americanon 06-21-2024 GFR/1.73 sq M.predicted among non-blacks MDRD (S/P/Bld) [Vol rate/Area] Estimated glomerular filtration rate (GFR) non- Low >=60 mL/min/1.73 m 2 [facility] Globulin Calc (S) [Mass/Vol] on 06-21-2024 Globulin (S) [Mass/Vol] Serum globulin measurement by calculation (mass/volume) [facility] Hematocrit Auto (Bld) [Volum e fraction]on 06-21-2024 Hematocrit (Bld) [Volume fraction] Hematocrit [Volume Fraction] of Blood by Automated count 42.0-54.0 [facility] Hemoglobin [Mass/volume] in Bloodon 06-21-2024 Hemoglobin (Bld) [Mass/Vol] Hemoglobin [Mass/volume] in Blood 14.0-18.0 [facility] Iron binding capacity [Mass/ volume] in Serum or Plasmaon 06-21-2024 Iron binding capacity [Mass/Vol] Iron binding capacity [Mass/volume] in Serum or Plasma 250.0-450.0 [facility] Iron saturation [Mass Fracti on] in Serum or Plasmaon 06-21-2024 Iron saturation [Mass fraction] Iron saturation [Mass Fraction] in Serum or Plasma [facility] - Chemistry and C hemistry - challengeon 06-21-2024 Albumin [Mass/Vol] 3.7 g/dL 3.4-5.0 [facility] ALP [Catalytic activity/Vol] 94 U/L 46-116 [facility] ALT [Catalytic activity/Vol] 34 U/L 16-63 [facility] AST [Catalytic activity/Vol] 19 U/L 15-37 [facility] Bilirubin [Mass/Vol] 0.7 mg/dL 0.2-1.0 [facility] Calcium [Mass/Vol] 9.4 mg/dL 8.5-10.1 [facility] Chloride [Moles/Vol] 108 mmol/L High 98-107 [facility] CO2 [Moles/Vol] 31.4 mmol/L 21.0-32.0 [facility] Cobalamin (Vitamin B12) [Mass/Vol] 622 pg/mL 232-1245 [facility] Comment on above: Performed at: - [address] [id number] Director: Edwardo Grande PhD, Phone: [phone] Creatinine [Mass/Vol] 1.37 mg/dL High 0.70-1.30 [facility] Ferritin [Mass/Vol] 133.0 ng/mL 26.0-388.0 [facility] GFR/1.73 sq M.predicted MDRD (S/P/Bld) [Vol rate/Area] mL/min/{1.73_m2} >=60 mL/min/1.73 m 2 [facility] Glucose [Mass/Vol] 131 mg/dL High 74-106 [facility] Iron [Mass/Vol] 82.0 ug/dL 65.0-175.0 [facility] Magnesium [Mass/Vol] 2.1 mg/dL 1.8-2.4 [facility] Potassium [Moles/Vol] 4.7 mmol/L 3.5-5.1 [facility] Protein [Mass/Vol] 7.1 g/dL 6.4-8.2 [facility] Sodium [Moles/Vol] 145 mmol/L 136-145 [facility] Urate [Mass/Vol] 6.5 mg/dL 3.5-7.2 [facility] Urea nitrogen [Mass/Vol] 23.0 mg/dL High 7.0-18.0 [facility] Urea nitrogen/Creatinine [Mass ratio] 16.8 mg/mg [facility] Bilirubin Ql (U) Negative NEGATIVE [facility] Glucose (U) [Mass/Vol] Negative NEGATIVE [facility] Ketones Ql (U) Negative NEGATIVE [facility] pH (U) 5.5 [pH] 5.0-9.0 [facility] Specific gravity (U) [Rel density] 1.020 1.005-1.025 [facility] Urobilinogen Qn (U) 0.2 {Kayce'U}/dL 0.2-1.0 [facility] Laboratory - Specimen inform ationon 06-21-2024 Appearance (U) CLEAR CLEAR [facility] Color (U) YELLOW YELLOW [facility] - Urinalysison Leukocyte esterase Test strip Ql (U) Negative NEGATIVE [facility] Nitrite Ql (U) Negative NEGATIVE [facility] Protein (U) [Mass/Vol] 13.7 mg/dL High <=11.9 [facility] Protein Ql (U) Negative NEG/TRACE [facility] Leukocytes [#/volume] correc giuliano for nucleated erythrocytes in Blood by Automated counon 06-21-2024 WBC corrected for nucl RBC Auto (Bld) [#/Vol] Leukocytes [#/volume] corrected for nucleated erythrocytes in Blood by Automated coun 4.0-11.0 [facility] MCH Auto (RBC) [Entitic mass ]on 06-21-2024 MCH (RBC) [Entitic mass] MCH [Entitic mass] by Automated count 25.9-34.0 [facility] MCHC Auto (RBC) [Mass/Vol]on 06-21-2024 MCHC (RBC) [Mass/Vol] MCHC [Mass/volume] by Automated count 29.9-35.2 [facility] MCV Auto (RBC) [Entitic vol] on 06-21-2024 MCV (RBC) [Entitic vol] MCV [Entitic vol ume] by Automated count High 80.0-94.0 [facility] No Panel Informationon 06-21 25-Hydroxy Vitamin D Total 29.1 ng/mL [facility] Comment on above: <20 ng/mL Vit D defi cient20-<30 ng/mL Vit D syteujislqok08-958 ng/mL Vit D sufficient>100 ng/mL Potential Toxicity Folate 24.40 ng/mL 8.60-58.90 [facility] Parathyroid Hormone (Intact) 60 pg/mL 15-65 [facility] Comment on above: Performed at: - [employer] [id number] Director: Edwardo Grande PhD, Phone: [phone] Phosphorus Level 3.6 mg/dL 2.6-4.7 [facility] Urine Occult Blood Negative NEGATIVE [facility] Urine Random Creatinine 88.10 mg/dL 20.0 0-300.0 0 [facility] Platelet mean volume Auto (B ld) [Entitic vol]on 06-21-2024 Platelet mean volume (Bld) [Entitic vol] Platelet mean volume [Entitic volume] in Blood by Automated count 9.5-13.5 [facility] Platelets Auto (Bld) [#/Vol] on 06-21-2024 Platelets (Bld) [#/Vol] Platelets [#/vol ume] in Blood by Automated count 150-450 [facility] RBC Auto (Bld) [#/Vol]on RBC (Bld) [#/Vol] Erythrocytes [#/volume] in Blood by Automated count Low 4.70-6.10 [facility] Serum or plasma albumin/glob ulin mass ratioon 06-21-2024 Albumin/Globulin [Mass ratio] Serum or plasma albumin/globulin mass ratio [facility] Serum or plasma anion gap de terminationon 06-21-2024 Anion gap [Moles/Vol] Serum or plasma an ion gap determination [facility] Urine protein/creatinine rat ioon 06-21-2024 Protein/Creatinine (U) [Ratio] Urine protein/creatinine ratio [facility] Office Visiton 05-04-2024 Follow-up visit [id number] Hans Amin 1945 M Date Provider Department Center 05/04/2024 Jeanette-RUTH URRUTIA [facility] Family History Problem Relation Age of Onset Diabetes Mother Coronary artery disease Father Other Sister Family Status - Relation Status Age at Mother Father Sister Level of Service:14195 AL OFFICE/OUTPATIENT ESTABLISHED LOW MDM 20 MIN Normal [facility] Hemoglobin [Mass/volume] in Bloodon 09-26-2023 Hemoglobin (Bld) [Mass/Vol] 13.7 g/dL 14.0-18.0 [facility] Scre[place] 07-29-2023 Screens [id number]#1. 00TIFF Normal [facility] Screens [id number]#1.0 0TIFF Normal [facility] Ambulatory Visit Summaryon 0 07-23-2023 Ambulatory [...] minerals (Centrum Silver) potassium chloride (Potassium Chloride (Lng-Ldgk-Mqv M20) 20 mEq oral tablet, extended release) [...] Following Appointments Follow Up with Tomy DUNN, RODERICK Cao, URO When: Comments: PRN Where: Medications What [...] or concerns Unchanged potassium chloride (Potassium Chloride (Dur-Jbya-Cuo M20) 20 mEq oral tablet, extended release) [...] (more content not included)... Normal [facility] Patient Educationon 07-23-19 24 Patient Education Urology Benign Prostatic Hyperplasia Benign [...] Follow these instructions at home: ? Take pmse-yha-kvdnsyg and prescription medicines only as told by [...] (more content not included)... Normal [facility] Urology Office/Clinic Noteon 07-23-2023 Urology Office/Clinic [...] voids. Avoid bladder irritants 4. Anticoagulated (Z79.01: [facility] (current) use of anticoagulants) Eliquis 5mg BID [...] Information Tomy DUNN, Patience Salinas, URL, URO Additional Instructions: PRN Patient Education Benign Prostatic Hyperplasia I, Vania Dougherty, personally scribed for Dr. Huitron on 07/23/2023 10:46:55. . Documentation recorded by the scribe, Vania Dougherty, accurately reflects the services(s) I performed an (more content not included)... [facility] Comment on above: Result Comment: Elec tronically Signed By: Patience Huitron MD\.br\Date and Time Signed: 07/23/23 15:27 EST\.br\Electronically Co-Signed By: Vania Dougherty\.br\Date and Time Co-Signed: 07/23/23 10:47 EST [place] 04-17-2023 Screens [id number] .00TIFF [facility] Screens [id number] TIFF [facility] Ambulatory Visit Summaryon 1 Ambulatory Visit Summary IGNACIO AMIN :1945 Visit Date:04/16/2023 Ambulatory Visit Instructions Your Diagnosis BPH with urinary obstruction Personal history of prostate cancer OAB (overactive bladder) Anticoagulated Tests Performed Urnls Dip Stick Auto w/o Microscopy POC [id number] Your Care Team Attending Physician - Patience [...] Huitron MD Where: [facility] Patient Educationon 04-16- 23 Patient Education Urology Benign Prostatic Hyperplasia [...] Follow these instructions at home: ? Take smbr-jmj-knpqvzn and prescription medicines only as told by [...] (more content not included)... Normal [facility] Urology Office/Clinic Noteon 04-16-2023 Urology Office/Clinic [...] voids -Re-eval after tamsulosin 4. Anticoagulated (Z79.01: [facility] (current) use of anticoagulants) Eliquis 5mg BID [...] (more content not included)... Normal [facility] Comment on above: Result Comment: Elec tronically Signed By: Patience Huitron MD\.br\Date and Time Signed: 04/16/23 12:38 EDT\.br\Electronically Co-Signed By: Vania Dougherty\.br\Date and Time Co-Signed: 04/16/23 10:59 EDT Consent for Procedure/Surger yon 03-03-2023 Consent for Procedure/Surgery [id number]#1. 00CD:127 Normal [facility] Consent for Treatmenton 02-21 Consent for Treatment [id number]#1.0 0CD:127 Normal [facility] Inpatient Patient Summaryon 03-03-2023 Inpatient Patient Summary [place] [id number] Clinical Summary Person Information Name: IGNACIO AMIN Age: 77 Years : 1945 Sex: Male PCP: ELLIOT ROSALES MD Marital Status: Race: White Ethnicity: Non- or Language: Jordanian Visit Id: Visit Reason: BPH WITH LUTS Speciality: Acuity: Enc Type: Outpatient Med Service: Surgery Arrival: 03/03/2023 08:34:30 Discharge: Dispo Type: Address: [address] [place] [phone] Provider Notes: Diagnosis: Anticoagulated; BPH with urinary [...] up: With: Address: When: Patience Huitron Coretta [place], [place] [address], [employer] [address] [place] [phone] Business (1) Comments: Office to schedule follow up in 1 month with PVR Patient Education Information: Lue - Urolift Post-Op Instructions (CUSTOM) [facility] IntraOperative Documentson 0 03-03-2023 IntraOperative Documents [id number]#1. 00CD:127 [facility] Main OR Intraoperative Recor don 03-03-2023 Main OR Intraoperative Record IntraOp Document Type FTURO Summary Primary Physician: Patience Huitron MD Finalized Date/Time: 03/03/23 10:01:19 Pt. Name: IGNACIO AMIN/Sex: 1945 Male Med Rec #: [id number] Physician: Patience Huitron MD Financial #: [id number] Pt. Type: O Room/Bed: / Admit/Disch: 03/03/23 [...] Catia Jarvis Role Performed Surgeon - Primary Rack Room Worker - Primary Scrub - Primary Time In [...] Position Verified Availability Equipment, Implant, Time Out Tomy DUNN, Patience Salinas, Verified (If Medication Participants Amaya TRIMBLE, Makeda Velasco Kendall R Time Out Complete 03/03/23 09:50:00 [...] UROLIFT IMPLANT Serial Number Lot Number UL2-[id number] [employer] NEOTRACT NEOTRACT Catalog ?# UL2-CHK UL2-C Size [...] By: Leola Conde RN 03/03/23 10:01 Normal [facility] Main OR Preoperative Recordo n 03-03-2023 Main OR Preoperative Record Holding Area Document Type FTURO Summary Primary Physician: Patience Huitron MD Finalized Date/Time: 03/03/23 09:24:52 Pt. Name: IGNACIO AMIN /Sex: 1945 Male Med Rec #: [id number] Physician: Patience Huitron MD Financial #: [id number] Pt. Type: O Room/Bed: / Admit/Disch: 03/03/23 [...] RN, Ruthann 03/03/23 09:24 Normal [facility] Operative Reporton Operative Report Patient: SAMIR AMIN Age: 77 years Sex: Male : [...] 1 month with PVR. Normal [facility] Comment on above: Result Comment: Elec tronically Signed By: Patience Huitron MD\.br\Date and Time Signed: 03/03/23 10:07 EDT Outpatient Surgery Discharge Instructionon 03-03-2023 Outpatient Surgery Discharge Instruction [address] [address] Patient Discharge Instructions PERSON INFORMATION [...] Follow up: With: Address: When: Patience Huitron [address] [place], [place] [phone] Business (1) Comments: Office to schedule follow up in 1 month with PVR Comment: PATIENT EDUCATION INFORMATION Instructions: [facility] [place], [place] Post-Operative Instructions for UroLift After your [...] (more content not included)... Normal [facility] Patient Educationon 03-03-20 Patient Education [facility] [place] [place] Post-Operative Instructions for UroLift After your [...] bladder is not emptying. Normal [facility] Reminderson 02-12-2023 Reminders - From: Marley Santillan To: [facility] - Recalls Lue; Sent: 12/25/2022 15:33:52 EDT Show up: 02/04/2023 15:33:00 EDT Subject: schedule UroLift Reminder/Recall PAtient would like urolift in january/february. Clearance to hold Eliquis (note 12/20/22) called patient to schedule, left msg on voicemail Patient is scheduled 03/03/23 [facility] Consultation Noteon 07-10-20 23 Consultation Note [id number]#1.0 0CD:127 Normal [facility] Félix 12-13-2022 L -- ---- Specimen: [id number] Received: 12/13/22 Status: LORI Villafana Num: [id number] Spec Type: Surgical Subm Dr: Yung Yang MD Tissues: A Colon Biopsy (ASCENDING POLYPS) Procedures: Yobani SULLIVAN/Michael L4 ---- Age/ Patient Sex Location Account Attending Physician ---- Ignacio Amin/[place] [id number] Yung Yang MD ---- SPEC NUM: [id number] RECD: 12/13/22 STATUS: LORI VILLAFANA NUM: [id number] DILLON: 12/13/22 DR: Yung Yang MD ENTERED: 12/13/[address] [facility] DR: SPEC TYPE: Surgical DEPT: S ORDERED: [...] microscopic examination confirms the diagnosis. CPT Codes 67282 ---- ---- Specimen: [id number] Received: 12/13/22 Status: LORI Villafana Num: [id number] Spec Type: Surgical Subm Dr: Yung Yang MD Tissues: A Colon Biopsy (ASCENDING POLYPS) Procedures: HE/2, Gross/Micro L4 ---- Patient: Ignacio Amin [id number] (Continued) ---- Signed (signature on file) Ashley Mcgrath MD 12/16/22 [address] [facility] Physician [facility] Urology Office/Clinic Noteon 12-05-2022 Urology Office/Clinic Note [...] the future -Timed voids 4. Anticoagulated (Z79.01: 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 anticoagulants) Eliquis 5mg BID [...] 12/04/2022 09:47:59. . Documentation recorded by the scribe, Keely Zacarias, accurately reflects the services(s) I performed and decisions made by me. Authenticated by Dr. Huitron on 12/05/19 (more content not included)... [facility] Comment on above: Result Comment: Elec tronically Signed By: Patience Huitron MD\.br\Date and Time Signed: 12/04/22 23:21 EDT\.br\Electronically Co-Signed By: Keely Zacarias\.br\Date and Time Co-Signed: 12/04/22 09:48 EDT [employer] 12-04-2022 Forms [id number]#1.0 0CD:127 [facility] Patient Educationon 12-05-19 Patient Education Urology [...] Follow these instructions at home: ? Take bpfx-npd-sxsfgli and prescription medicines only as told by [...] (more content not included)... Normal [facility] Screenson 12-04-2022 Screens [id number]#1. 00CD:127 Normal [facility] Screens [id number]#1. 00CD:127 Normal [facility] CNOVon 09-24-2022 CNOV Office Visit (RADTSA ) IGNACIO AMIN ([id number]) 1945 M Date Time Provider Department 09/24/22 [...] in the EMR. Referring Provider: Ema DOYLE [[id number]] Allergies As of Date: 09/24/2022 Noted Allergy Reaction INFLUENZA VIRUS VACCINE TV SPLIT *10/04/2014 5 - Intolerance Date Reviewed: 09/24/2022 Reviewed by: Nurys Saleem RN - Fully Assessed Primary Visit Diagnosis:History of prostate cancer [Z85.46] Order(s):PSA (OUTSIDE) [2013129] Order #: [id number] PSA/PROSTSPECAG DIAG [SQPSA] Order #: [id number] FUTURE Prescriptions as of 10/01/2022 - furosemide [...] 2022 1:06 PM Status: Signed AUA 3 Franco (more content not included)... Normal [facility] FERRITINon 08-05-2022 Ferritin [Mass/Vol] 157.0 ng/mL Normal 26.0-388.0 [facility] Comment on above: Performed By: #### F ERR #### [facility] [address] [place] [address] Dr. Yoselin Rivera HEMOGRAM AND PLATELon 2022 Hematocrit (Bld) [Volume fraction] 35.7 % Critically low 42.0-54.0 [facility] Comment on above: Performed By: #### H H #### [facility] [address] [place] [address] [address] Yoselin Rivera Hemoglobin (Bld) [Mass/Vol] 11.8 g/dL Critically low 14.0-18.0 [facility] Comment on above: Performed By: #### H H #### [facility] [address] [place] [address] Dr. Yoselin Rivera MCH (RBC) [Entitic mass] 30.3 pg Normal 25.9-34.0 [facility] Comment on above: Performed By: #### H H #### [facility] [address] [place] [address] Dr. Yoselin Rivera MCHC (RBC) [Mass/Vol] 33.1 g/dL Normal 29.9-35.2 [facility] Comment on above: Performed By: #### H H #### [facility] [address] [place] [address] Dr. Yoselin Rivera MCV (RBC) [Entitic vol] 91.8 fL Normal 80.0-94.0 [facility] Comment on above: Performed By: #### H H #### [facility] [address] [place] [address] Dr. Yoselin Rivera PLT 157 103/ul Normal 150-450 [facility] Comment on above: Performed By: #### H H #### [facility] [address] [place] [address] [address] Yoselin Rivera RBC 3.89 106/ul Critically low 4.70-6.10 [facility] Comment on above: Performed By: #### H H #### [facility] [address] [place] [address] Dr. Yoselin Rivera WBC 5.0 103/ul Normal 4.0-11.0 [facility] Comment on above: Performed By: #### H H #### [facility] [address] [place] [address] Dr. Yoselin Rivera PROF 14(COMP METB)on 023 Albumin [Mass/Vol] 3.6 g/dL Normal 3.4-5.0 [facility] Comment on above: Performed By: #### C MP #### [facility] [address] [place] [address] Dr. Yoselin Rivera Albumin/Globulin [Mass ratio] 1.0 {ratio} Normal [facility] Comment on above: Performed By: #### C MP #### [facility] [address] [place] [address] Dr. Yoselin Rivera ALP [Catalytic activity/Vol] 102 U/L Normal 46-116 [facility] Comment on above: Performed By: #### C MP #### [facility] [address] [place] [address] Dr. Yoselin Rivera ALT [Catalytic activity/Vol] 31 U/L Normal 16-63 [facility] Comment on above: Performed By: #### C MP #### [facility] [address] [place] [address] Dr. Yoselin Rivera Anion gap [Moles/Vol] 11.6 mmol/L Normal [facility] Comment on above: Performed By: #### C MP #### [facility] [address] [place] [address] Dr. Yoselin Rivera AST [Catalytic activity/Vol] 21 U/L Normal 15-37 [facility] Comment on above: Performed By: #### C MP #### [facility] [address] [place] [address] Dr. Yoselin Rivera Bilirubin [Mass/Vol] 0.5 mg/dL Normal 0.2-1.0 [facility] Comment on above: Performed By: #### C MP #### [facility] [address] [place] [address] Dr. Yoselin Rivera Calcium [Mass/Vol] 9.3 mg/dL Normal 8.5-10.1 [facility] Comment on above: Performed By: #### C MP #### [facility] [address] [place], [place] [address] Dr. Yoselin Rivera Chloride [Moles/Vol] 104 mmol/L Normal 98-107 [facility] Comment on above: Performed By: #### C MP #### [facility] [address] [place] [address] [address] Yoselin Rivera CO2 [Moles/Vol] 30.6 mmol/L Normal 21.0-32.0 [facility] Comment on above: Performed By: #### C MP #### [facility] [address] [place] [address] Dr. Yoselin Rivera Creatinine [Mass/Vol] 1.25 mg/dL Normal 0.70-1.30 [facility] Comment on above: Performed By: #### C MP #### [facility] [address] [place] [address] Dr. Yoselin Rivera EGFR-AF [place] >60 Normal >=60 [facility] Comment on above: Performed By: #### C MP #### [facility] [address] [place] [address] Dr. Yoselin Rivera EGFR-NON AF [place] 56 mL/min/1.73m2 Critically low >=60 [facility] Comment on above: Performed By: #### C MP #### [facility] [address] [place] [address] Dr. Yoselin Rivera Globulin (S) [Mass/Vol] 3.5 g/dL Normal [facility] Comment on above: Performed By: #### C MP #### [facility] [address] [place] [address] Dr. Yoselin Rivera Glucose [Mass/Vol] 132 mg/dL Critically high 74-106 [facility] Comment on above: Performed By: #### C MP #### [facility] [address] [place] [address] Dr. Yoselin Rivera Potassium [Moles/Vol] 4.2 mmol/L Normal 3.5-5.1 [facility] Comment on above: Performed By: #### C MP #### [facility] [address] [place] [address] Dr. Yoselin Rivera Protein [Mass/Vol] 7.1 g/dL Normal 6.4-8.2 [facility] Comment on above: Performed By: #### C MP #### [facility] [address] [place] [address] Dr. Yoselin Rivera Sodium [Moles/Vol] 142 mmol/L Normal 136-145 [facility] Comment on above: Performed By: #### C MP #### [facility] [address] [place] [address] Dr. Yoselin Rivera Urea nitrogen [Mass/Vol] 27.0 mg/dL Critically high 7.0-18.0 [facility] Comment on above: Performed By: #### C MP #### [facility] [address] [place] [address] Dr. Yoselin Rivera Urea nitrogen/Creatinine [Mass ratio] 21.6 mg/mg Normal [facility] Comment on above: Performed By: #### C MP #### [facility] [address] [place] [address] Dr. Yoselin Rivera PROF CHEM 8 (BAS METB)on Anion gap [Moles/Vol] 11.3 mmol/L Normal [facility] Comment on above: Performed By: #### B MP #### [facility] [address] [place] [address] Dr. Yoselin Rivera Calcium [Mass/Vol] 9.3 mg/dL Normal 8.5-10.1 [facility] Comment on above: Performed By: #### B MP #### [facility] [address] [place] [address] Dr. Yoselin Rivera Chloride [Moles/Vol] 103 mmol/L Normal 98-107 [facility] Comment on above: Performed By: #### B MP #### [facility] [address] [place] [address] Dr. Yoselin Rivera CO2 [Moles/Vol] 31.6 mmol/L Normal 21.0-32.0 [facility] Comment on above: Performed By: #### B MP #### [facility] [address] [place] [address] Dr. Yoselin Rivera Creatinine [Mass/Vol] 1.34 mg/dL Critically high 0.70-1.30 [facility] Comment on above: Performed By: #### B MP #### [facility] [address] [place] [address] [address] Yoselin Rivera EGFR-AF [place] >60 Normal >=60 [facility] Comment on above: Performed By: #### B MP #### [facility] [address] [place] [address] [address] Yoselin Rivera EGFR-NON AF [place] 52 mL/min/1.73m2 Critically low >=60 [facility] Comment on above: Performed By: #### B MP #### [facility] [address] [address] [address] Yoselin Rivera Glucose [Mass/Vol] 150 mg/dL Critically high 74-106 T [facility] Comment on above: Performed By: #### B MP #### [facility] [address] [address] [address] Yoselin Rivera Potassium [Moles/Vol] 3.9 mmol/L Normal 3.5-5.1 [facility] Comment on above: Performed By: #### B MP #### [facility] [address] [address] [address] Yoselin Rivera Sodium [Moles/Vol] 142 mmol/L Normal 136-145 [facility] Comment on above: Performed By: #### B MP #### [facility] [address] [address] [address] Yoselin Rivera Urea nitrogen [Mass/Vol] 32.0 mg/dL Critically high 7.0-18.0 [facility] Comment on above: Performed By: #### B MP #### [facility] [address] [address] [address] Yoselin Rivera Urea nitrogen/Creatinine [Mass ratio] 23.9 mg/mg Normal [facility] Comment on above: Performed By: #### B MP #### [facility] [address] [address] [address] Yoselin Rivera PROF 14(COMP METB)on 12-12-2 022 Albumin [Mass/Vol] 3.4 g/dL Normal 3.4-5.0 [facility] Comment on above: Performed By: #### H H #### [facility] [address] [place] [address] Dr. Yoselin Rivera Albumin/Globulin [Mass ratio] 1.0 {ratio} Normal [facility] Comment on above: Performed By: #### H H #### [facility] [address] [place] [address] Dr. Yoselin Rivera ALP [Catalytic activity/Vol] 79 U/L Normal 46-116 [facility] Comment on above: Performed By: #### H H #### [facility] [address] [place] [address] Dr. Yoselin Rivera ALT [Catalytic activity/Vol] 25 U/L Normal 16-63 [facility] Comment on above: Performed By: #### H H #### [facility] [address] [place] [address] Dr. Yoselin Rivera Anion gap [Moles/Vol] 10.7 mmol/L Normal [facility] Comment on above: Performed By: #### H H #### [facility] [address] [place] [address] Dr. Yoselin Rivera AST [Catalytic activity/Vol] 20 U/L Normal 15-37 [facility] Comment on above: Performed By: #### H H #### [facility] [address] [place] [address] Dr. Yoselin Rivera Bilirubin [Mass/Vol] 0.5 mg/dL Normal 0.2-1.0 [facility] Comment on above: Performed By: #### H H #### [facility] [address] [place] [address] Dr. Yoselin Rivera Calcium [Mass/Vol] 9.1 mg/dL Normal 8.5-10.1 [facility] Comment on above: Performed By: #### H H #### [facility] [address] [place] [address] Dr. Yoselin Rivera Chloride [Moles/Vol] 108 mmol/L Critically high 98-107 [facility] Comment on above: Performed By: #### H H #### [facility] [address] [address] [address] Yoselin Rivera CO2 [Moles/Vol] 28.8 mmol/L Normal 21.0-32.0 [facility] Comment on above: Performed By: #### H H #### [facility] [address] [address] [address] Yoselin Rivera Creatinine [Mass/Vol] 1.32 mg/dL Critically high 0.70-1.30 [facility] Comment on above: Performed By: #### H H #### [facility] [address] [address] [address] Yoselin Rivear EGFR-AF [place] >60 Normal >=60 [facility] Comment on above: Performed By: #### H H #### [facility] [address] [address] [address] Yoselin Rivera EGFR-NON AF [place] 53 mL/min/1.73m2 Critically low >=60 [facility] Comment on above: Performed By: #### H H #### [facility] [address] [address] [address] Yoselin Rivera Globulin (S) [Mass/Vol] 3.4 g/dL Normal T [facility] Comment on above: Performed By: #### H H #### [facility] [address] [address] [address] Yoselin Rivera Glucose [Mass/Vol] 90 mg/dL Normal 74-106 [facility] Comment on above: Performed By: #### H H #### [facility] [address] [address] [address] Yoselin Rivera Potassium [Moles/Vol] 4.5 mmol/L Normal 3.5-5.1 [facility] Comment on above: Performed By: #### H H #### [facility] [address] [address] [address] Yoselin Rivera Protein [Mass/Vol] 6.8 g/dL Normal 6.4-8.[address] [facility] Comment on above: Performed By: #### H H #### [facility] [address] [address] [address] Yoselin Rivera Sodium [Moles/Vol] 143 mmol/L Normal 136-[address] [facility] Comment on above: Performed By: #### H H #### [facility] [address] [address] [address] Yoselin Rivera Urea nitrogen [Mass/Vol] 26.0 mg/dL Critically high 7.0-18.0 [facility] Comment on above: Performed By: #### H H #### [facility] [address] [address] [address] Yoselin Rivera Urea nitrogen/Creatinine [Mass ratio] 19.7 mg/mg Normal [facility] Comment on above: Performed By: #### H H #### [facility] [address] [place] [address] Dr. Yoselin Rivera FREE T4on 05-22-2022 Free T4 [Mass/Vol] 1.13 ng/dL Normal 0.76-1.46 [facility] Comment on above: Performed By: #### H H #### [facility] [address] [place] [address] Dr. Yoselin Rivera LIPID PROFILEon 05-22-2022 CHOL-HDL RATIO NORM SEE BELOW Normal [facility] Comment on above: Result Comment: 3.3 - 4.4 LOW RISK 4.4 - 7.1 AVERAGE RISK 7.1 - 11.0 MODERATE RISK >11.0 HIGH RISK Performed By: #### T SH, CMP, LIPID #### [facility] [address] [place] [address] Dr. Yoselin Rivera Cholesterol [Mass/Vol] 155 mg/dL Normal <=200 [facility] Comment on above: Performed By: #### T SH, CMP, LIPID #### [facility] [address] [address] [address] Yoselin Rivera Cholesterol in HDL [Mass/Vol] 48 mg/dL Normal 40-60 [facility] Comment on above: Performed By: #### T SH, CMP, LIPID #### [facility] [address] [place] [address] Dr. Yoseiln Rivera Cholesterol in LDL [Mass/Vol] 72.8 mg/dL Normal [facility] Comment on above: Performed By: #### T SH CMP, LIPID #### [facility] [address] [address] [address] Yoselin Rivera Cholesterol.total/Nai sterol in HDL [Mass ratio] 3.2 {ratio} Normal [facility] Comment on above: Performed By: #### T SH, CMP, LIPID #### [facility] [address] [place] [address] Dr. Yoselin Rivera HDL NORMAL > or = 60 mg/dl - LO W CARDIOVASCULAR RISK <40 mg/dl - HIGH CARDIOVASCULAR RISK Normal [facility] Comment on above: Performed By: #### T GIACOMO CMP, LIPID #### [facility] [address] [place] [address] Dr. Yoselin Rivera LDL CALC NORMAL SEE BELOW Normal [facility] Comment on above: Result Comment: <100 mg/dl OPTIMAL 100 - 129 mg/dl NEAR OR ABOVE OPTIMAL 130 - 159 mg/dl BORDERLINE HIGH 160 - 189 mg/dl HIGH >190 mg/dl VERY HIGH Performed By: #### T GIACOMO CMP, LIPID #### [facility] [address] [place] [address] Dr. Yoselin Rivera Triglyceride [Mass/Vol] 171 mg/dL Critically high <=150 [facility] Comment on above: Performed By: #### T GIACOMO CMP, LIPID #### [facility] [address] [place] [address] Dr. Yoselin Rivera VLDL CALC 34.2 mg/dL Normal [facility] Comment on above: Performed By: #### T SH, CMP, LIPID #### [facility] [address] [address] [address] Yoselin Rivera PROF 14(COMP METB)on 022 Albumin [Mass/Vol] 3.6 g/dL Normal 3.4-5.0 [facility] Comment on above: Performed By: #### T SH, CMP, LIPID #### [facility] [address] [place] [address] Dr. Yoselin Rivera Albumin/Globulin [Mass ratio] 1.0 {ratio} Normal [facility] Comment on above: Performed By: #### T SH, CMP, LIPID #### [facility] [address] [address] [address] Yoselin Rivera ALP [Catalytic activity/Vol] 86 U/L Normal 46-116 [facility] Comment on above: Performed By: #### T SH, CMP, LIPID #### [facility] [address] [address] [address] Yoselin Rivera ALT [Catalytic activity/Vol] 30 U/L Normal 16-63 [facility] Comment on above: Performed By: #### T GIACOMO, CMP, LIPID #### [facility] [address] [place] [address] Dr. Yoselin Rivera Anion gap [Moles/Vol] 7.9 mmol/L Normal [facility] Comment on above: Performed By: #### T GIACOMO, CMP, LIPID #### [facility] [address] [address] [address] Yoselin Rivera AST [Catalytic activity/Vol] 19 U/L Normal 15-37 [facility] Comment on above: Performed By: #### T GIACOMO, CMP, LIPID #### [facility] [address] [address] [address] Yoselin Rivera Bilirubin [Mass/Vol] 0.5 mg/dL Normal 0.2-1.0 [facility] Comment on above: Performed By: #### T SH, CMP, LIPID #### [facility] [address] [place] [address] Dr. Yoselin Rivera Calcium [Mass/Vol] 9.5 mg/dL Normal 8.5-10.1 [facility] Comment on above: Performed By: #### T SH, CMP, LIPID #### [facility] [address] [place] [address] Dr. Yoselin Rivera Chloride [Moles/Vol] 106 mmol/L Normal 98-107 [facility] Comment on above: Performed By: #### T SH, CMP, LIPID #### [facility] [address] [place] [address] Dr. Yoselin Rivera CO2 [Moles/Vol] 34.3 mmol/L Critically high 21.0-32.0 [facility] Comment on above: Performed By: #### T SH, CMP, LIPID #### [facility] [address] [address] [address] Yoselin Rivera Creatinine [Mass/Vol] 1.49 mg/dL Critically high 0.70-1.30 [facility] Comment on above: Performed By: #### T SH, CMP, LIPID #### [facility] [address] [address] [address] Yoselin Rivera EGFR-AF [place] 56 mL/min/1.73m2 Critically low >=60 [facility] Comment on above: Performed By: #### T SH, CMP, LIPID #### [facility] [address] [address] [address] Yoselin Rivera EGFR-NON AF [place] 46 mL/min/1.73m2 Critically low >=60 [facility] Comment on above: Performed By: #### T SH, CMP, LIPID #### [facility] [address] [address] [address] Yoselin Rivera Globulin (S) [Mass/Vol] 3.7 g/dL Normal [facility] Comment on above: Performed By: #### T SH, CMP, LIPID #### [facility] [address] [address] [address] Yoselin Rivera Glucose [Mass/Vol] 107 mg/dL Critically high 74-106 [facility] Comment on above: Performed By: #### T SH, CMP, LIPID #### [facility] [address] [address] [address] Yoselin Rivera Potassium [Moles/Vol] 4.2 mmol/L Normal 3.5-5.1 [facility] Comment on above: Performed By: #### T SH, CMP, LIPID #### [facility] [address] [address] [address] Yoselin Rivera Protein [Mass/Vol] 7.3 g/dL Normal 6.4-8.2 [facility] Comment on above: Performed By: #### T SH, CMP, LIPID #### [facility] [address] [address] [address] Yoselin Rivera Sodium [Moles/Vol] 144 mmol/L Normal 136-[address] [facility] Comment on above: Performed By: #### T SH, CMP, LIPID #### [facility] [address] [address] [address] Yoselin Rivera Urea nitrogen [Mass/Vol] 31.0 mg/dL Critically high 7.0-18.0 [facility] Comment on above: Performed By: #### T SH, CMP, LIPID #### [facility] [address] [address] [address] Yoselin Rivera Urea nitrogen/Creatinine [Mass ratio] 20.8 mg/mg Normal [facility] Comment on above: Performed By: #### T SH, CMP, LIPID #### [facility] [address] [place] [address] Dr. Yoselin Rivera TSHon 05-22-2022 TSH 4.222 uIU/mL Critically high 0.358-3.[address] [facility] Comment on above: Performed By: #### T SH, CMP, LIPID #### [facility] [address] [place] [address] Dr. Yoselin Rivera XR CHEST 2 Von [...] IGNACIO JACKSON Date: 2022-05-22 08:39 Normal [facility] AUTO DIFFon 04-26-2022 BASO # 0.1 103/ul Normal 0.0-0.1 [facility] Comment on above: Performed By: #### C BC #### [facility] [address] [place] [address] Dr. Yoselin Rivera Basophils/100 WBC (Bld) 0.9 % Normal 0.2-2.0 [facility] Comment on above: Performed By: #### C BC #### [facility] [address] [place] [address] Dr. Yoselin Rivera EO # 0.1 103/ul Normal 0.0-0.7 [facility] Comment on above: Performed By: #### C BC #### [facility] [address] [place] [address] Dr. Yoselin Rivera Eosinophils/100 WBC (Bld) 2.4 % Normal 0.9-7.0 [facility] Comment on above: Performed By: #### C BC #### [facility] [address] [place] [address] Dr. Yoselin Rivera Erythrocyte distribution width (RBC) [Ratio] 14.5 % Normal 11.0-15.0 [facility] Comment on above: Performed By: #### C BC #### [facility] [address] [place] [address] Dr. Yoselin Rivera Hematocrit (Bld) [Volume fraction] 36.4 % Critically low 42.0-54.0 [facility] Comment on above: Performed By: #### C BC #### [facility] [address] [place] [address] Dr. Yoselin Rivera Hemoglobin (Bld) [Mass/Vol] 11.9 g/dL Critically low 14.0-18.0 [facility] Comment on above: Performed By: #### C BC #### [facility] [address] [place] [address] Dr. Yoselin Rivera IG # 0.01 10e3/ul Normal 0.00-0.03 [facility] Comment on above: Performed By: #### C BC #### [facility] [address] [place] [address] Dr. Yoselin Rivera IG % 0.2 % Normal 0.0-0.5 [facility] Comment on above: Performed By: #### C BC #### [facility] [address] [place] [address] Dr. Yoselin Rivera LYMPH # 1.2 103/ul Normal 1.2-3.8 [facility] Comment on above: Performed By: #### C BC #### [facility] [address] [place] [address] Dr. Yoselin Rivera Lymphocytes/100 WBC (Bld) 21.1 % Normal 20.5-60.0 [facility] Comment on above: Performed By: #### C BC #### [facility] [address] [place] [address] Dr. Yoselin Rivera MANUAL DIFF REQ NO Normal [facility] Comment on above: Performed By: #### C BC #### [facility] [address] [place] [address] Dr. Yoselin Rivera MCH (RBC) [Entitic mass] 30.4 pg Normal 25.9-34.0 [facility] Comment on above: Performed By: #### C BC #### [facility] [address] [place] [address] Dr. Yoselin Rivera MCHC (RBC) [Mass/Vol] 32.7 g/dL Normal 29.9-35.2 [facility] Comment on above: Performed By: #### C BC #### [facility] [address] [place] [address] Dr. Yoselin Rivera MCV (RBC) [Entitic vol] 93.1 fL Normal 80.0-94.0 [facility] Comment on above: Performed By: #### C BC #### [facility] [address] [place] [address] Dr. Yoselin Rivera MONO # 0.6 103/ul Normal 0.3-0.8 [facility] Comment on above: Performed By: #### C BC #### [facility] [address] [place] [address] Dr. Yoselin Rivera Monocytes/100 WBC (Bld) 11.6 % Normal 1.7-12.0 [facility] Comment on above: Performed By: #### C BC #### [facility] [address] [place] [address] Dr. Yoselin Rivera NEUT # 3.5 103/ul Normal 1.4-6.5 [facility] Comment on above: Performed By: #### C BC #### [facility] [address] [place] [address] Dr. Yoselin Rivera Neutrophils/100 WBC (Bld) 63.8 % Normal 43.0-75.0 [facility] Comment on above: Performed By: #### C BC #### [facility] [address] [place] [address] Dr. Yoselin Rivera Platelet mean volume (Bld) [Entitic vol] 10.8 fL Normal 9.5-13.5 [facility] Comment on above: Performed By: #### C BC #### [facility] [address] [place] [address] Dr. Yoselin Rivera PLT 178 103/ul Normal 150-450 [facility] Comment on above: Performed By: #### C BC #### [facility] [address] [place] [address] Dr. Yoselin Rivera RBC 3.91 106/ul Critically low 4.70-6.10 [facility] Comment on above: Performed By: #### C BC #### [facility] [address] [place] [address] Dr. Yoselin Rivera WBC 5.4 103/ul Normal 4.0-11.0 [facility] Comment on above: Performed By: #### C BC #### [facility] [address] [place] [address] Dr. Yoselin Rivera PROF CHEM 8 (BAS METB)on Anion gap [Moles/Vol] 6.6 mmol/L Normal [facility] Comment on above: Performed By: #### B MP #### [facility] [address] [place] [address] Dr. Yoselin Rivera Calcium [Mass/Vol] 9.3 mg/dL Normal 8.5-10.1 [facility] Comment on above: Performed By: #### B MP #### [facility] [address] [place] [address] Dr. Yoselin Rivera Chloride [Moles/Vol] 105 mmol/L Normal 98-107 [facility] Comment on above: Performed By: #### B MP #### [facility] [address] [address] [address] Yoselin Rivera CO2 [Moles/Vol] 32.8 mmol/L Critically high 21.0-32.0 [facility] Comment on above: Performed By: #### B MP #### [facility] [address] [address] [address] Yoselin Rivera Creatinine [Mass/Vol] 1.59 mg/dL Critically high 0.70-1.30 [facility] Comment on above: Performed By: #### B MP #### [facility] [address] [place] [address] Dr. Yoselin Rivera EGFR-AF [place] 52 mL/min/1.73m2 Critically low >=60 [facility] Comment on above: Performed By: #### B MP #### [facility] [address] [place] [address] Dr. Yoselin Rivera EGFR-NON AF [place] 43 mL/min/1.73m2 Critically low >=60 [facility] Comment on above: Performed By: #### B MP #### [facility] [address] [place] [address] Dr. Yoselin Rivera Glucose [Mass/Vol] 88 mg/dL Normal 74-106 [facility] Comment on above: Performed By: #### B MP #### [facility] [address] [address] [address] Yoselin Rivera Potassium [Moles/Vol] 4.4 mmol/L Normal 3.5-5.1 [facility] Comment on above: Performed By: #### B MP #### [facility] [address] [address] [address] Yoselin Rivera Sodium [Moles/Vol] 140 mmol/L Normal 136-[address] [facility] Comment on above: Performed By: #### B MP #### [facility] [address] [address] [address] Yoselin Rivera Urea nitrogen [Mass/Vol] 37.0 mg/dL Critically high 7.0-18.0 [facility] Comment on above: Performed By: #### B MP #### [facility] [address] [place], [place] [address] Dr. Yoselin Rivera Urea nitrogen/Creatinine [Mass ratio] 23.3 mg/mg Normal [facility] Comment on above: Performed By: #### B MP #### [facility] [address] [place], [place] [address] Dr. Yoselin Rivera BASIC METABOLIC PANELon 09-0 Calcium [Mass/Vol] 9.5 mg/dL Normal 8.6-10.3 [facility] Comment on above: Order Comment: evalu ate for Effusion Performed By: #### 0 [id number] ####[facility] [place] [address], [facility] Chloride [Moles/Vol] 99 mmol/L Normal 98-107 [facility] Comment on above: Order Comment: evalu ate for Effusion Performed By: #### 0 [id number] ####[facility] [place] [address], [place] CO2 [Moles/Vol] 28 mmol/L Normal 21-31 [facility] Comment on above: Order Comment: evalu ate for Effusion Performed By: #### 0 [id number] ####[facility] [place] [address], [place] Creatinine [Mass/Vol] 1.51 mg/dL High 0.70-1.30 [facility] Comment on above: Order Comment: evalu ate for Effusion Performed By: #### 0 [id number] ####[facility] [place] [address], [place] EGFR 48 ml/min/1.73sq m Abnormal >60 [facility] Comment on above: Order Comment: evalu ate for Effusion Result Comment: [facility]'s estimated glomerular filtration rate (eGFR) will no [...] of individuals. Performed By: #### 0 [id number] ####[facility] [facility] [address], [facility] Glucose [Mass/Vol] 129 mg/dL High 70-100 [facility] Comment on above: Order Comment: evalu ate for Effusion Performed By: #### 0 [id number] ####[address] [place] [address], [facility] Potassium [Moles/Vol] 3.4 mmol/L Low 3.5-5.1 [facility] Comment on above: Order Comment: evalu ate for Effusion Performed By: #### 0 [id number] ####[facility] [place] [address], [facility] Sodium [Moles/Vol] 138 mmol/L Normal 136-145 [facility] Comment on above: Order Comment: evalu ate for Effusion Performed By: #### 0 [id number] ####[facility] [place] [address], [facility] Urea nitrogen [Mass/Vol] 71 mg/dL High 7-25 [facility] Comment on above: Order Comment: evalu ate for Effusion Performed By: #### 0 [id number] ####[place] [address] POC SARS COV2 ANTIGEN NEGATI VEon 02-28-2022 POC SARS COV2 ANTIGEN NEG Negative Normal NEGATIVE [facility] Comment on above: Result Comment: Nega tive [...] antigen from SARS-CoV-2 in direct nasopharyngeal swab ([employer] WORKER) specimens from individuals who are suspected of [...] Accreditation. Performed By: #### [id number] #### [facility] [address] BASIC METABOLIC PANELon 09-0 -2021 Calcium [Mass/Vol] 9.4 mg/dL Normal 8.6-10.3 [facility] Comment on above: Order Comment: Check Chest Tube Position, ON ARRIVAL TO CVU Performed By: #### 4 1000, 17113, 39910 ####[facility] [place] [address], [facility] Chloride [Moles/Vol] 98 mmol/L Normal 98-107 [facility] Comment on above: Order Comment: Check Chest Tube Position, ON ARRIVAL TO CVU Performed By: #### 4 1000, 05555, 18778 ####[facility] [place] [place] [address], [place] CO2 [Moles/Vol] 28 mmol/L Normal 21-31 [facility] Comment on above: Order Comment: Check Chest Tube Position, ON ARRIVAL TO CVU Performed By: #### 4 1000, 55718, 88124 ####[facility] [place] [id number], [place] Creatinine [Mass/Vol] 1.63 mg/dL High 0.70-1.30 [facility] Comment on above: Order Comment: Check Chest Tube Position, ON ARRIVAL TO CVU Performed By: #### 4 1000, 00837, 93181 ####[facility] [place] [place] [address], [facility] EGFR 44 ml/min/1.73sq m Abnormal >60 [facility] Comment on above: Order Comment: Check Chest Tube Position, ON ARRIVAL TO CVU Result Comment: [facility]'s estimated glomerular filtration rate (eGFR) will no [...] of individuals. Performed By: #### 4 1000, 71295, 51028 ####[facility] [place] [place] [address], [facility] Glucose [Mass/Vol] 118 mg/dL High 70-100 [facility] Comment on above: Order Comment: Check Chest Tube Position, ON ARRIVAL TO CVU Performed By: #### 4 1000, 69904, 43053 ####[facility] [place] [place] [address], [facility] Potassium [Moles/Vol] 3.6 mmol/L Normal 3.5-5.1 [facility] Comment on above: Order Comment: Check Chest Tube Position, ON ARRIVAL TO CVU Performed By: #### 4 1000, 60887, 00229 ####[facility] [place] [address], [facility] Sodium [Moles/Vol] 137 mmol/L Normal 136-145 [facility] Comment on above: Order Comment: Check Chest Tube Position, ON ARRIVAL TO CVU Performed By: #### 4 1000, 14033, 60327 ####[facility] [place] [address], [facility] Urea nitrogen [Mass/Vol] 77 mg/dL High 7-25 [facility] Comment on above: Order Comment: Check Chest Tube Position, ON ARRIVAL TO CVU Performed By: #### 4 1000, 82912, 87356 ####[facility] [place] [place] [address], [facility] CBC COMPLETE BLOOD COUNTon 0 02-27-2022 Erythrocyte distribution width (RBC) [Ratio] 14.8 % Normal 11.5-15.0 [facility] Comment on above: Order Comment: No: D o not add to previous draw Performed By: #### 5 0608 #### [facility] [address] [place] [id number], [facility] Hematocrit (Bld) [Volume fraction] 30.2 % Low 39.0-50.0 [facility] Comment on above: Order Comment: No: D o not add to previous draw Performed By: #### 5 0608 #### [facility] [address] [facility] [place] [address], [facility] Hemoglobin (Bld) [Mass/Vol] 10.2 g/dL Low 13.0-17.0 [facility] Comment on above: Order Comment: No: D o not add to previous draw Performed By: #### 5 0608 #### [facility] [address] [place] [address], [facility] MCH (RBC) [Entitic mass] 30.9 pg Normal 27.0-33.0 [facility] Comment on above: Order Comment: No: D o not add to previous draw Performed By: #### 5 0608 #### [facility] [address] [place] [id number], [facility] MCHC (RBC) [Mass/Vol] 33.8 g/dL Normal 32.0-35.0 [facility] Comment on above: Order Comment: No: D o not add to previous draw Performed By: #### 5 0608 #### [facility] [address] [place] [address], [facility] MCV (RBC) [Entitic vol] 91.5 fL Normal 82.0-98.0 [facility] Comment on above: Order Comment: No: D o not add to previous draw Performed By: #### 5 0608 #### [facility] [address] [place] [address], [facility] Nucleated RBC/100 WBC (Bld) [Ratio] 0 % Normal 0-0 [facility] Comment on above: Order Comment: No: D o not add to previous draw Performed By: #### 5 0608 #### [facility] [address] [place] [address], [facility] PLAT CNT 176 10*3/uL Normal 150-400 [facility] Comment on above: Order Comment: No: D o not add to previous draw Performed By: #### 5 0608 #### [facility] [address] [place] [address], [facility] RBC (Bld) [#/Vol] 3.30 10*6/uL Low 4.20-5.70 [facility] Comment on above: Order Comment: No: D o not add to previous draw Performed By: #### 5 0608 #### [facility] [address] [place] [id number], [facility] WBC (Bld) [#/Vol] 6.82 10*3/uL Normal 4.00-10.60 [facility] Comment on above: Order Comment: No: D o not add to previous draw Performed By: #### 5 0608 #### [facility] [address] [place] [address], [facility] Cardiovascular Lab Reporton 02-27-2022 Cardiovascular Lab Report [facility] #: [id number] Department of Physician: Nora Saxena M.D. Division of Service Date: 02/27/2022 Cardiology Birthdate: 1945 Adult Cardiovascular Room #: 3AB [id number] [facility] [address] [facility]. [place], [place] [address] Cardiovascular Laboratory Report PROCEDURE: Transesophageal echocardiogram and cardioversion. INDICATION: Atrial fibrillation. FELLOW: Amanda Engel MD. PROCEDURE IN DETAIL: An informed consent was obtained from the patient after explaining the indication, risk and benefits, and alternatives. The patient understood, and agreed, and signed the consent form. The patient was brought to the farm [employer] and FARHEEN (transesophageal echocardiogram) was performed under [...] Engel MD Date Trans: 02/27/2022 02:37 P/mmo [id number] Normal [facility] MAGNESIUM BLOODon 02-27-2022 Magnesium [Mass/Vol] 2.6 mg/dL Normal 1.9-2.7 [facility] Comment on above: Order Comment: Check Chest Tube Position, ON ARRIVAL TO CVU Performed By: #### 4 1000, 50636, 74969 ####[facility] [place] [address], [facility] PHOSPHORUS BLOODon 2 Phosphate [Mass/Vol] 4.7 mg/dL Normal 2.5-5.0 [facility] Comment on above: Order Comment: Check Chest Tube Position, ON ARRIVAL TO CVU Performed By: #### 4 1000, 13073, 93893 ####[facility] PORTABLE CHEST 1 VIEWon PORTABLE CHEST [address] [facility] Department of Radiology [address] [place] [address] ======== Patient Name: IGNACIO AMIN : 1945 Sex: M Age: Race: White Pt. Location: [place] [address] Patient Status: I Ordered Date: 02/27/2022 5:00:00 [...] chest. Electronically signed: Mahesh Sanchez. Transcribed by: [email or web address], User Resident: Electronically Signed by: MAHESH SANCHEZ @ 02/27/2022 07:47 AM Normal [facility] Comment on above: Order Comment: Check Chest Tube Position, ON ARRIVAL TO CVU BASIC METABOLIC PANELon 09 Calcium [Mass/Vol] 9.3 mg/dL Normal 8.6-10.3 [facility] Comment on above: Order Comment: Check Chest Tube Position, ON ARRIVAL TO CVU Performed By: #### 0 0071, 01660, 99666 ####[facility] [place] [address], [facility] Chloride [Moles/Vol] 98 mmol/L Normal 98-107 [facility] Comment on above: Order Comment: Check Chest Tube Position, ON ARRIVAL TO CVU Performed By: #### 0 0071, 56732, 78533 ####[facility] [place] [address], [place] CO2 [Moles/Vol] 29 mmol/L Normal 21-31 [facility] Comment on above: Order Comment: Check Chest Tube Position, ON ARRIVAL TO CVU Performed By: #### 0 0071, 95793, 18482 ####[facility] [place] [address], [place] Creatinine [Mass/Vol] 2.10 mg/dL High 0.70-1.30 [facility] Comment on above: Order Comment: Check Chest Tube Position, ON ARRIVAL TO CVU Performed By: #### 0 0071, 62352, 39462 ####[facility] [place] [address], [facility] EGFR 32 ml/min/1.73sq m Abnormal >60 [facility] Comment on above: Order Comment: Check Chest Tube Position, ON ARRIVAL TO CVU Result Comment: [facility]'s estimated glomerular filtration rate (eGFR) will no [...] of individuals. Performed By: #### 0 0071, 22970, 92839 ####[facility] [place] [address], [facility] Glucose [Mass/Vol] 115 mg/dL High 70-100 [facility] Comment on above: Order Comment: Check Chest Tube Position, ON ARRIVAL TO CVU Performed By: #### 0 0071, 39519, 39376 ####[facility] [place] [address], [facility] Potassium [Moles/Vol] 4.7 mmol/L Normal 3.5-5.1 [facility] Comment on above: Order Comment: Check Chest Tube Position, ON ARRIVAL TO CVU Performed By: #### 0 0071, 44105, 48662 ####[facility] [place] [address], [facility] Sodium [Moles/Vol] 137 mmol/L Normal 136-145 [facility] Comment on above: Order Comment: Check Chest Tube Position, ON ARRIVAL TO CVU Performed By: #### 0 0071, 83890, 27904 ####[facility] [place] [address], [facility] Urea nitrogen [Mass/Vol] 80 mg/dL High 7-25 [facility] Comment on above: Order Comment: Check Chest Tube Position, ON ARRIVAL TO CVU Performed By: #### 0 0071, 78341, 98106 ####[facility] [place] [address], [facility] CBC COMPLETE BLOOD COUNTon 0 02-26-2022 Erythrocyte distribution width (RBC) [Ratio] 14.8 % Normal 11.5-15.0 [facility] Comment on above: Order Comment: No: D o not add to previous draw Performed By: #### 5 0608 #### [facility] [address] [place] [address], [facility] Hematocrit (Bld) [Volume fraction] 29.0 % Low 39.0-50.0 [facility] Comment on above: Order Comment: No: D o not add to previous draw Performed By: #### 5 0608 #### [facility] [address] [facility] Hemoglobin (Bld) [Mass/Vol] 9.6 g/dL Low 13.0-17.0 [facility] Comment on above: Order Comment: No: D o not add to previous draw Performed By: #### 5 0608 #### [facility] [address] [place] [address], [facility] IMM PLATELET FRAC 6.2 % Normal 0.8-6.3 [facility] Comment on above: Order Comment: No: D o not add to previous draw Performed By: #### 5 0608 #### [facility] [address] [facility]. [address] MCH (RBC) [Entitic mass] 30.4 pg Normal 27.0-33.0 [facility] Comment on above: Order Comment: No: D o not add to previous draw Performed By: #### 5 0608 #### [facility] [address] [facility] [place] [address], [facility] MCHC (RBC) [Mass/Vol] 33.1 g/dL Normal 32.0-35.0 [facility] Comment on above: Order Comment: No: D o not add to previous draw Performed By: #### 5 0608 #### [facility] [address] [place] [address], [facility] MCV (RBC) [Entitic vol] 91.8 fL Normal 82.0-98.0 [facility] Comment on above: Order Comment: No: D o not add to previous draw Performed By: #### 5 0608 #### [facility] [address] [place] [address], [facility] Nucleated RBC/100 WBC (Bld) [Ratio] 0 % Normal 0-0 [facility] Comment on above: Order Comment: No: D o not add to previous draw Performed By: #### 5 0608 #### [facility] [address] [place] [address], [facility] PLAT CNT 137 10*3/uL Low 150-400 [facility] Comment on above: Order Comment: No: D o not add to previous draw Performed By: #### 5 0608 #### [facility] [address] [place] [address], [facility] RBC (Bld) [#/Vol] 3.16 10*6/uL Low 4.20-5.70 [facility] Comment on above: Order Comment: No: D o not add to previous draw Performed By: #### 5 0608 #### [facility] [address] [place] [address], [facility] WBC (Bld) [#/Vol] 7.11 10*3/uL Normal 4.00-10.60 [facility] Comment on above: Order Comment: No: D o not add to previous draw Performed By: #### 5 0608 #### [facility] [address] [place] [address], [facility] MAGNESIUM BLOODon 02-26-2022 Magnesium [Mass/Vol] 2.4 mg/dL Normal 1.9-2.7 [facility] Comment on above: Order Comment: Check Chest Tube Position, ON ARRIVAL TO CVU Performed By: #### 0 0071, 96097, 50037 ####[facility] [facility] [address], [facility] PHOSPHORUS BLOODon 2 Phosphate [Mass/Vol] 5.2 mg/dL High 2.5-5.0 [facility] Comment on above: Order Comment: Check Chest Tube Position, ON ARRIVAL TO CVU Performed By: #### 0 0071, 44487, 74173 ####[facility] PORTABLE CHEST 1 VIEWon PORTABLE CHEST [address] [facility] Department of Radiology [address] [place] [address] ======== Patient Name: IGNACIO AMIN : 1945 Sex: M Age: Race: White Pt. Location: [place] [address] Patient Status: I Ordered Date: 02/26/2022 5:00:00 [...] effusions. Electronically signed: Mahesh Sanchez. Transcribed by: [email or web address], User Resident: Electronically Signed by: MAHESH SANCHEZ @ 02/26/2022 02:50 PM Normal [facility] Comment on above: Order Comment: evalu ate for Effusion US RENAL WITH BLADDERon 09- US RENAL WITH BLADDER [facility] Department of Radiology [address] [place] [address] ======== Patient Name: IGNACIO AMIN : 1945 Sex: M Age: Race: White Pt. Location: [place] [address] Patient Status: I Ordered Date: 02/23/2022 12:10:00 [...] noted. Electronically signed: Dennis Michel. Transcribed by: [email or web address], User Resident: Electronically Signed by: DENNIS MICHEL @ 02/26/2022 09:36 PM Normal [facility] Comment on above: Order Comment: Other BASIC METABOLIC PANELon Chloride [Moles/Vol] 97 mmol/L Low 98-107 [facility] Comment on above: Order Comment: Evalu ate for Pneumothorax Performed By: #### 1 0070, 03738, 71368 ####[facility] [facility].[address] CO2 [Moles/Vol] 29 mmol/L Normal 21-31 [facility] Comment on above: Order Comment: Evalu ate for Pneumothorax Performed By: #### 1 0070, 90161, 43912 ####[facility] [place] [address], [facility] Creatinine [Mass/Vol] 2.05 mg/dL High 0.70-1.30 [facility] Comment on above: Order Comment: Evalu ate for Pneumothorax Performed By: #### 1 0070, 56808, 01509 ####[facility] [facility] [address], [facility] EGFR 33 ml/min/1.73sq m Abnormal >60 [facility] Comment on above: Order Comment: Evalu ate for Pneumothorax Result Comment: [facility]'s estimated glomerular filtration rate (eGFR) will no [...] of individuals. Performed By: #### 1 0070, 27243, 98506 ####[facility] [place] [address], [facility] Glucose [Mass/Vol] 131 mg/dL High 70-100 [facility] Comment on above: Order Comment: Evalu ate for Pneumothorax Performed By: #### 1 0070, 94885, 76349 ####[facility] [address], [facility] Potassium [Moles/Vol] 3.5 mmol/L Normal 3.5-5.1 [facility] Comment on above: Order Comment: Evalu ate for Pneumothorax Performed By: #### 1 0070, 66548, 97683 ####[facility] [place] [address], [place] Sodium [Moles/Vol] 137 mmol/L Normal 136-145 [facility] Comment on above: Order Comment: Evalu ate for Pneumothorax Performed By: #### 1 0070, 79938, 63440 ####[facility] [place] [address], [place] Urea nitrogen [Mass/Vol] 75 mg/dL High 7-25 [facility] Comment on above: Order Comment: Evalu ate for Pneumothorax Performed By: #### 1 0070, 63025, 58467 ####[facility] [place] [address], [place] Calcium [Mass/Vol] 9.0 mg/dL Normal 8.6-10.3 [facility] Comment on above: Order Comment: Evalu ate for Pneumothorax Performed By: #### 1 0070, 02475, 12427 ####[facility] Order Comment: Check Chest Tube Position, ON ARRIVAL TO CVU Performed By: #### 4 1000, 90561, 29087 ####[facility] [place] [address], [facility] Chloride [Moles/Vol] 96 mmol/L Low 98-107 [facility] Comment on above: Order Comment: Check Chest Tube Position, ON ARRIVAL TO CVU Performed By: #### 4 1000, , 02046 ####[facility] [place] [address], [facility] CO2 [Moles/Vol] 27 mmol/L Normal 21-31 [facility] Comment on above: Order Comment: Check Chest Tube Position, ON ARRIVAL TO CVU Performed By: #### 4 1000, , 29903 ####[place] [address] [address] Creatinine [Mass/Vol] 2.09 mg/dL High 0.70-1.30 [facility] Comment on above: Order Comment: Check Chest Tube Position, ON ARRIVAL TO CVU Performed By: #### 4 1000, , [address]16 ####[address] EGFR 32 ml/min/1.73sq m Abnormal >60 [facility] Comment on above: Order Comment: Check Chest Tube Position, ON ARRIVAL TO CVU Result Comment: [facility]'s estimated glomerular filtration rate (eGFR) will no [...] individuals. Performed By: #### 4 1000, , 60094 ####[facility] [place] [address], [place] Glucose [Mass/Vol] 120 mg/dL High 70-100 [facility] Comment on above: Order Comment: Check Chest Tube Position, ON ARRIVAL TO CVU Performed By: #### 4 1000, 84340, 22237 ####[facility] [place] [address], [place] Potassium [Moles/Vol] 3.7 mmol/L Normal 3.5-5.1 [facility] Comment on above: Order Comment: Check Chest Tube Position, ON ARRIVAL TO CVU Performed By: #### 4 1000, , 21944 ####[facility] [place] [address], [place] Sodium [Moles/Vol] 135 mmol/L Low 136-145 [facility] Comment on above: Order Comment: Check Chest Tube Position, ON ARRIVAL TO CVU Performed By: #### 4 1000, , 88146 ####[facility] [place] [address], [place] Urea nitrogen [Mass/Vol] 67 mg/dL High 7-25 [facility] Comment on above: Order Comment: Check Chest Tube Position, ON ARRIVAL TO CVU Performed By: #### 4 1000, , 88569 ####[facility] [place] [address], [place] Calcium [Mass/Vol] 9.2 mg/dL Normal 8.6-10.3 [facility] Comment on above: Order Comment: No: D o not add to previous draw Criteria for reflexing a culture was not met. Please call the lab at [phone] within 24 hours of collection time if culture is needed Performed By: #### 3 9845 #### [facility] [address] [place] [address], [place] Chloride [Moles/Vol] 96 mmol/L Low 98-107 [facility] Comment on above: Order Comment: No: D o not add to previous draw Criteria for reflexing a culture was not met. Please call the lab at [phone] within 24 hours of collection time if culture is needed Performed By: #### 3 0965 #### [facility] [address] [facility] [place] [address], [facility] CO2 [Moles/Vol] 27 mmol/L Normal 21-31 [facility] Comment on above: Order Comment: No: D o not add to previous draw Criteria for reflexing a culture was not met. Please call the lab at [phone] within 24 hours of collection time if culture is needed Performed By: #### 3 0965 #### [facility] [address] Creatinine [Mass/Vol] 2.13 mg/dL High 0.70-1.30 [facility] Comment on above: Order Comment: No: D o not add to previous draw Criteria for reflexing a culture was not met. Please call the lab at [phone] within 24 hours of collection time if culture is needed Performed By: #### 3 0965 #### [facility] [address] EGFR 32 ml/min/1.73sq m Abnormal >60 [facility] Comment on above: Order Comment: No: D o not add to previous draw Criteria for reflexing a culture was not met. Please call the lab at [phone] within 24 hours of collection time if culture is needed Result Comment: [facility]'s estimated glomerular filtration rate (eGFR) will no [...] individuals. Performed By: #### 3 0965 #### [facility] [address] [facility] [place] [address], [facility] Glucose [Mass/Vol] 96 mg/dL Normal 70-100 [facility] Comment on above: Order Comment: No: D o not add to previous draw Criteria for reflexing a culture was not met. Please call the lab at [phone] within 24 hours of collection time if culture is needed Performed By: #### 3 0965 #### [facility] [address] [place] [address], [facility] Potassium [Moles/Vol] 3.9 mmol/L Normal 3.5-5.1 [facility] Comment on above: Order Comment: No: D o not add to previous draw Criteria for reflexing a culture was not met. Please call the lab at [phone] within 24 hours of collection time if culture is needed Performed By: #### 3 0965 #### [facility] [address] [facility] [place] [address], [facility] Sodium [Moles/Vol] 134 mmol/L Low 136-145 [facility] Comment on above: Order Comment: No: D o not add to previous draw Criteria for reflexing a culture was not met. Please call the lab at [phone] within 24 hours of collection time if culture is needed Performed By: #### 3 0965 #### [facility] [address] [place] [address], [facility] Urea nitrogen [Mass/Vol] 67 mg/dL High 7-25 [facility] Comment on above: Order Comment: No: D o not add to previous draw Criteria for reflexing a culture was not met. Please call the lab at [phone] within 24 hours of collection time if culture is needed Performed By: #### 3 0965 #### [facility] [address] [place] [place] [address], [facility] CBC COMPLETE BLOOD COUNTon 0 02-25-2022 Erythrocyte distribution width (RBC) [Ratio] 14.7 % Normal 11.5-15.0 [facility] Comment on above: Order Comment: Check Chest Tube Position, ON ARRIVAL TO CVU Performed By: #### 5 0608 ####[facility] Hematocrit (Bld) [Volume fraction] 28.2 % Low 39.0-50.0 [facility] Comment on above: Order Comment: Check Chest Tube Position, ON ARRIVAL TO CVU Performed By: #### 5 0608 ####[facility] Hemoglobin (Bld) [Mass/Vol] 9.7 g/dL Low 13.0-17.0 [facility] Comment on above: Order Comment: Check Chest Tube Position, ON ARRIVAL TO CVU Performed By: #### 5 0608 ####[place] [id number] [address] IMM PLATELET FRAC 8.0 % High 0.8-6.3 [facility] Comment on above: Order Comment: Check Chest Tube Position, ON ARRIVAL TO CVU Performed By: #### 5 0608 ####[facility] MCH (RBC) [Entitic mass] 31.2 pg Normal 27.0-33.0 [facility] Comment on above: Order Comment: Check Chest Tube Position, ON ARRIVAL TO CVU Performed By: #### 5 0608 ####[facility] MCHC (RBC) [Mass/Vol] 34.4 g/dL Normal 32.0-35.0 [facility] Comment on above: Order Comment: Check Chest Tube Position, ON ARRIVAL TO CVU Performed By: #### 5 0608 ####[facility] MCV (RBC) [Entitic vol] 90.7 fL Normal 82.0-98.0 T any[facility] Comment on above: Order Comment: Check Chest Tube Position, ON ARRIVAL TO CVU Performed By: #### 5 0608 ####[facility] [facility] [place] [address], [facility] Nucleated RBC/100 WBC (Bld) [Ratio] 0 % Normal 0-0 [facility] Comment on above: Order Comment: Check Chest Tube Position, ON ARRIVAL TO CVU Performed By: #### 5 0608 ####[facility] [place] [place] [address], [facility] PLAT CNT 111 10*3/uL Low 150-400 [facility] Comment on above: Order Comment: Check Chest Tube Position, ON ARRIVAL TO CVU Performed By: #### 5 0608 ####[facility]3000 [facility] [address], [facility] RBC (Bld) [#/Vol] 3.11 10*6/uL Low 4.20-5.70 [facility] Comment on above: Order Comment: Check Chest Tube Position, ON ARRIVAL TO CVU Performed By: #### 5 0608 ####[facility]3000 [place] [address], [facility] WBC (Bld) [#/Vol] 6.70 10*3/uL Normal 4.00-10.60 [facility] Comment on above: Order Comment: Check Chest Tube Position, ON ARRIVAL TO CVU Performed By: #### 5 0608 ####[facility]3000 [place] [address], [facility] MAGNESIUM BLOODon 02-25-2022 Magnesium [Mass/Vol] 2.3 mg/dL Normal 1.9-2.7 [facility] Comment on above: Order Comment: Evalu ate for Pneumothorax Performed By: #### 1 0070, 90369, 62323 ####[facility] [place] [address], [facility] Magnesium [Mass/Vol] 2.4 mg/dL Normal 1.9-2.7 [facility] Comment on above: Order Comment: Check Chest Tube Position, ON ARRIVAL TO CVU Performed By: #### 4 1000, 14507, 78680 ####[facility] [place] [address], [place] Magnesium [Mass/Vol] 2.5 mg/dL Normal 1.9-2.7 [facility] Comment on above: Order Comment: No: D o not add to previous draw Criteria for reflexing a culture was not met. Please call the lab at [phone] within 24 hours of collection time if culture is needed Performed By: #### 3 0965 #### [facility] [address] [place] [address], [place] PHOSPHORUS BLOODon Phosphate [Mass/Vol] 5.1 mg/dL High 2.5-5.0 [facility] Comment on above: Order Comment: Evalu ate for Pneumothorax Performed By: #### 1 0070, 50511, 12961 ####[facility] [place] [address], [place] Phosphate [Mass/Vol] 4.9 mg/dL Normal 2.5-5.0 [facility] Comment on above: Order Comment: Check Chest Tube Position, ON ARRIVAL TO CVU Performed By: #### 4 1000, 76451, 68170 ####[facility] [place] [address], [place] Phosphate [Mass/Vol] 4.9 mg/dL Normal 2.5-5.0 [facility] Comment on above: Order Comment: No: D o not add to previous draw Criteria for reflexing a culture was not met. Please call the lab at [phone] within 24 hours of collection time if culture is needed Performed By: #### 3 0965 #### [facility] [address] [place] [address], [place] PORTABLE CHEST 1 VIEWon PORTABLE CHEST [address] [facility] Department of Radiology [address] [place] [id number] ======== Patient Name: IGNACIO AMIN : 1945 Sex: M Age: Race: White Pt. Location: [place] [address] Patient Status: I Ordered Date: 02/25/2022 7:00:00 [...] chest. Electronically signed: Mahesh Sanchez. Transcribed by: [email or web address], User Resident: Electronically Signed by: MAHESH SANCHEZ @ 02/25/2022 08:33 AM Normal [facility] Comment on above: Order Comment: Evalu ate for Pneumothorax ARTERIAL BLOOD GAS W/COOXon 02-24-2022 BASE EXCESS -1 mmol/L Normal -2-3 [facility] Comment on above: Performed By: #### 3 0739 #### [facility] [address] BILEVEL 12 Normal [facility] Comment on above: Performed By: #### 3 0739 #### [facility] [address] [place] [address], [facility] COHB 1.0 % Normal 0.0-1.5 [facility] Comment on above: Performed By: #### 3 0739 #### [facility] [address] [employer] BI-PAP Normal [facility] Comment on above: Performed By: #### 3 0739 #### [facility] [address] [facility]. [address] FIO2 50 % Normal [facility] Comment on above: Performed By: #### 3 0739 #### [facility] [address] [facility] HCO3 (Bld) [Moles/Vol] 24 mmol/L Normal 21-28 e [facility] Comment on above: Performed By: #### 3 0739 #### [facility] [address] [facility] [address] METHB 0.9 % Normal 0.0-1.5 [facility] Comment on above: Performed By: #### 3 0739 #### [facility] [address] [place] [address], [facility] MIN VOLUME 9.8 Normal [facility] Comment on above: Performed By: #### 3 0739 #### [facility] [address] [place] [address], [facility] MODALITY SPONTANEOUS/TIMED Normal [facility] Comment on above: Performed By: #### 3 0739 #### [facility] [address] Oxygen (Bld) [Partial pressure] 104 mm[Hg] Normal 83-108 [facility] Comment on above: Performed By: #### 3 0739 #### [facility] [address] [place] [address], [facility] Oxygen saturation in Blood 97.1 % High 94.0-97.0 [facility] Comment on above: Performed By: #### 3 0739 #### [facility] [address] [place] [address], [facility] PCO2 39 mmHg Normal 35-45 [facility] Comment on above: Performed By: #### 3 0739 #### [facility] [address] [place] [address], [facility] PEEP 6.0 CMH20 Normal [facility] Comment on above: Performed By: #### 3 0739 #### [facility] [address] [place] [address], [facility] pH (Bld) 7.39 [pH] Normal 7.35-7.45 [facility] Comment on above: Performed By: #### 3 0739 #### [facility] [address] [place] [address], [facility] Respiratory rate 14 /min Normal [facility] Comment on above: Performed By: #### 3 0739 #### [facility] [address] [place] [address], [facility] THB 10.1 g/dL Low 12.0-16.3 [facility] Comment on above: Performed By: #### 3 0739 #### [facility] [address] [place] [address], [facility] BASIC METABOLIC PANELon 09-0 Calcium [Mass/Vol] 8.8 mg/dL Normal 8.6-10.3 [facility] Comment on above: Order Comment: No: D o not add to previous draw Performed By: #### 3 0739 #### [facility] [address] [place] [address], [facility] Chloride [Moles/Vol] 96 mmol/L Low 98-107 [facility] Comment on above: Order Comment: No: D o not add to previous draw Performed By: #### 3 0739 #### [facility] [address] [place] [address], [facility] CO2 [Moles/Vol] 22 mmol/L Normal 21-31 [facility] Comment on above: Order Comment: No: D o not add to previous draw Performed By: #### 3 0739 #### [facility] [address] [facility] [place] [address], [facility] Creatinine [Mass/Vol] 2.04 mg/dL High 0.70-1.30 [facility] Comment on above: Order Comment: No: D o not add to previous draw Performed By: #### 3 0739 #### [facility] [address] [facility] [place] [address], [facility] EGFR 33 ml/min/1.73sq m Abnormal >60 [facility] Comment on above: Order Comment: No: D o not add to previous draw Result Comment: [facility]'s estimated glomerular filtration rate (eGFR) will no [...] individuals. Performed By: #### 3 0739 #### [facility] [address] [facility] [place] [id number], [facility] Glucose [Mass/Vol] 204 mg/dL High 70-100 [facility] Comment on above: Order Comment: No: D o not add to previous draw Performed By: #### 3 0739 #### [facility] [address] [place] [address], [place] Potassium [Moles/Vol] 3.6 mmol/L Normal 3.5-5.1 [facility] Comment on above: Order Comment: No: D o not add to previous draw Performed By: #### 3 0739 #### [facility] [address] [place] [address], [place] Sodium [Moles/Vol] 131 mmol/L Low 136-145 [facility] Comment on above: Order Comment: No: D o not add to previous draw Performed By: #### 3 0739 #### [facility] [address] [place] [address], [place] Urea nitrogen [Mass/Vol] 66 mg/dL High 7-25 [facility] Comment on above: Order Comment: No: D o not add to previous draw Performed By: #### 3 0739 #### [facility] [address] [place] [address], [place] Calcium [Mass/Vol] 8.9 mg/dL Normal 8.6-10.3 [facility] Comment on above: Order Comment: evalu ate for Effusion Performed By: #### 4 999, 28315, 98296 ####[facility] [place] [address], [place] Chloride [Moles/Vol] 100 mmol/L Normal 98-107 [facility] Comment on above: Order Comment: evalu ate for Effusion Performed By: #### 4 999, 99994, 03547 ####[facility] [place] [address], [place] CO2 [Moles/Vol] 22 mmol/L Normal 21-31 [facility] Comment on above: Order Comment: evalu ate for Effusion Performed By: #### 4 999, 96750, 19889 ####[facility] [place] [address], [place] Creatinine [Mass/Vol] 2.14 mg/dL High 0.70-1.30 [facility] Comment on above: Order Comment: evalu ate for Effusion Performed By: #### 4 999, 70416, 06402 ####[facility] [place] [address], [facility] EGFR 31 ml/min/1.73sq m Abnormal >60 [facility] Comment on above: Order Comment: evalu ate for Effusion Result Comment: [facility]'s estimated glomerular filtration rate (eGFR) will no [...] of individuals. Performed By: #### 4 999, 65699, 00896 ####[facility] [place] [address], [facility] Glucose [Mass/Vol] 111 mg/dL High 70-100 [facility] Comment on above: Order Comment: evalu ate for Effusion Performed By: #### 4 999, 41499, 68890 ####[facility] [place] [address], [facility] Potassium [Moles/Vol] 3.8 mmol/L Normal 3.5-5.1 [facility] Comment on above: Order Comment: evalu ate for Effusion Performed By: #### 4 999, 07918, 77562 ####[facility] [place] [address], [place] Sodium [Moles/Vol] 134 mmol/L Low 136-145 [facility] Comment on above: Order Comment: evalu ate for Effusion Performed By: #### 4 999, 73137, 04141 ####[facility] [place] [address], [place] Urea nitrogen [Mass/Vol] 60 mg/dL High 7-25 [facility] Comment on above: Order Comment: evalu ate for Effusion Performed By: #### 4 1000, 12011, 78501 ####[facility] [facility] CBC COMPLETE BLOOD COUNTon 0 02-24-2022 Erythrocyte distribution width (RBC) [Ratio] 14.7 % Normal 11.5-15.0 [facility] Comment on above: Order Comment: No: D o not add to previous draw Performed By: #### 5 0608 #### [facility] [address] [place] [address], [facility] Hematocrit (Bld) [Volume fraction] 28.6 % Low 39.0-50.0 [facility] Comment on above: Order Comment: No: D o not add to previous draw Performed By: #### 5 0608 #### [facility] [address] [place] [address], [facility] Hemoglobin (Bld) [Mass/Vol] 9.5 g/dL Low 13.0-17.0 [facility] Comment on above: Order Comment: No: D o not add to previous draw Performed By: #### 5 0608 #### [facility] [address] [place] [id number], [facility] IMM PLATELET FRAC 9.2 % High 0.8-6.3 [facility] Comment on above: Order Comment: No: D o not add to previous draw Performed By: #### 5 0608 #### [facility] [address] [place] [address], [facility] MCH (RBC) [Entitic mass] 30.4 pg Normal 27.0-33.0 [facility] Comment on above: Order Comment: No: D o not add to previous draw Performed By: #### 5 0608 #### [facility] [address] [place] [id number], [facility] MCHC (RBC) [Mass/Vol] 33.2 g/dL Normal 32.0-35.0 [facility] Comment on above: Order Comment: No: D o not add to previous draw Performed By: #### 5 0608 #### [facility] [address] [place] [address], [facility] MCV (RBC) [Entitic vol] 91.4 fL Normal 82.0-98.0 [facility] Comment on above: Order Comment: No: D o not add to previous draw Performed By: #### 5 0608 #### [facility] [address] [place] [address], [facility] Nucleated RBC/100 WBC (Bld) [Ratio] 0 % Normal 0-0 [facility] Comment on above: Order Comment: No: D o not add to previous draw Performed By: #### 5 0608 #### [facility] [address] [place] [address], [facility] PLAT CNT 80 10*3/uL Low 150-400 [facility] Comment on above: Order Comment: No: D o not add to previous draw Performed By: #### 5 0608 #### [facility] [address] [facility] [place] [address], [facility] RBC (Bld) [#/Vol] 3.13 10*6/uL Low 4.20-5.70 [facility] Comment on above: Order Comment: No: D o not add to previous draw Performed By: #### 5 0608 #### [facility] [address] [place] [id number], [facility] WBC (Bld) [#/Vol] 5.80 10*3/uL Normal 4.00-10.60 [facility] Comment on above: Order Comment: No: D o not add to previous draw Performed By: #### 5 0608 #### [facility] [address] [place] [id number], [facility] MAGNESIUM BLOODon 09-04-2022 Magnesium [Mass/Vol] 2.4 mg/dL Normal 1.9-2.7 [facility] Comment on above: Performed By: #### 3 0739 #### [facility] [address] [place] [address], [facility] Magnesium [Mass/Vol] 2.4 mg/dL Normal 1.9-2.7 [facility] Comment on above: Order Comment: evalu ate for Effusion Performed By: #### 4 1000, 16411, 18148 ####[facility] [place] [address], [facility] PHOSPHORUS BLOODon Phosphate [Mass/Vol] 4.6 mg/dL Normal 2.5-5.0 [facility] Comment on above: Performed By: #### 3 0739 #### [facility] [address] [place] [address], [place] Phosphate [Mass/Vol] 5.0 mg/dL Normal 2.5-5.0 [facility] Comment on above: Order Comment: evalu ate for Effusion Performed By: #### 4 1000, 32220, 20556 ####[facility] [place] [address], [facility] PORTABLE CHEST 1 VIEWon PORTABLE CHEST [address] [facility] Department of Radiology [address] [place] [id number] ======== Patient Name: IGNACIO AMIN : 1945 Sex: M Age: Race: White Pt. Location: [place] [address] Patient Status: I Ordered Date: 02/24/2022 3:00:00 [...] pneumothorax. Electronically signed: Mahesh Sanchez. Transcribed by: [email or web address], User Resident: Electronically Signed by: MAHESH SANCHEZ @ 02/24/2022 04:00 PM Normal [facility] Comment on above: Order Comment: evalu ate for Pneumothorax PORTABLE CHEST [address] [facility] Department of Radiology [address] [place] [id number] ======== Patient Name: IGNACIO AMIN : 1945 Sex: M Age: Race: White Pt. Location: [id number] Patient Status: I Ordered Date: 02/24/2022 5:00:00 [...] chest. Electronically signed: Mahesh Sanchez. Transcribed by: [email or web address], User Resident: Electronically Signed by: MAHESH SANCHEZ @ 02/24/2022 08:35 AM Normal [facility] Comment on above: Order Comment: Check Chest Tube Position, ON ARRIVAL TO CVU ALBUMIN BLOODon 02-23-2022 Albumin [Mass/Vol] 4.0 g/dL Normal 3.5-5.7 [facility] Comment on above: Performed By: #### 3 0965 #### [facility] [address] [place] [address], [facility] ARTERIAL BLOOD GAS W/COOXon 02-23-2022 BASE EXCESS -6 mmol/L Low -2-3 [facility] Comment on above: Performed By: #### 3 8939 #### [facility] [address] [place] [address], [facility] COHB 1.1 % Normal 0.0-1.5 [facility] Comment on above: Performed By: #### 3 7539 #### [facility] [address] [place] [address], [facility] [employer]IVERY [employer] BIPAP Normal [facility] Comment on above: Performed By: #### 3 0739 #### [facility] [address] [place] [address], [place] FIO2 50 % Normal [facility] Comment on above: Performed By: #### 3 0739 #### [facility] [address] [place] [address], [place] HCO3 (Bld) [Moles/Vol] 20 mmol/L Low 21-28 e [facility] Comment on above: Performed By: #### 3 0739 #### [facility] [address] [place] [address], [place] METHB 0.7 % Normal 0.0-1.5 [facility] Comment on above: Performed By: #### 3 0739 #### [facility] [address] [place] [address], [place] MODALITY BIPAP Normal [facility] Comment on above: Performed By: #### 3 0739 #### [facility] [address] [place] [address], [place] Oxygen (Bld) [Partial pressure] 134 mm[Hg] Critically high 83-108 [facility] Comment on above: Performed By: #### 3 0739 #### [facility] [address] [place] [address], [place] Oxygen saturation in Blood 97.7 % High 94.0-97.0 [facility] Comment on above: Performed By: #### 3 0739 #### [facility] [address] [place] [address], [place] PCO2 37 mmHg Normal 35-45 [facility] Comment on above: Performed By: #### 3 0739 #### [facility] [address] [place] [address], [place] PEEP 6.0 CMH20 Normal [facility] Comment on above: Performed By: #### 3 0739 #### [facility] [address] [place] [address], [place] pH (Bld) 7.33 [pH] Low 7.35-7.45 [facility] Comment on above: Performed By: #### 3 0739 #### [facility] [address] [place] [address], [place] PRESSURE SUPPORT 12 Normal [facility] Comment on above: Performed By: #### 3 0739 #### [facility] [address] [place] [address], [place] THB 10.2 g/dL Low 12.0-16.3 [facility] Comment on above: Performed By: #### 3 0739 #### [facility] [address] [place] [address], [place] BASIC METABOLIC PANELon 09-0 -2021 Calcium [Mass/Vol] 9.2 mg/dL Normal 8.6-10.3 [facility] Comment on above: Order Comment: evalu ate for Effusion Performed By: #### 0 0071, , 43910, 11667 ####[facility] [place] [address], [place] Chloride [Moles/Vol] 102 mmol/L Normal 98-107 [facility] Comment on above: Order Comment: evalu ate for Effusion Performed By: #### 0 0071, , , 59968 ####[facility] [place] [address], [place] CO2 [Moles/Vol] 19 mmol/L Low 21-31 [facility] Comment on above: Order Comment: evalu ate for Effusion Performed By: #### 0 0071, , 77338, 32833 ####[facility] [place] [address], [place] Creatinine [Mass/Vol] 2.06 mg/dL High 0.70-1.30 [facility] Comment on above: Order Comment: evalu ate for Effusion Performed By: #### 0 0071, 92382, 31398, 16038 ####[facility] [place] [address], [facility] EGFR 33 ml/min/1.73sq m Abnormal >60 [facility] Comment on above: Order Comment: evalu ate for Effusion Result Comment: [facility]'s estimated glomerular filtration rate (eGFR) will no [...] of individuals. Performed By: #### 0 0071, 33380, 93539, 86309 ####[facility] [place] [address], [facility] Glucose [Mass/Vol] 140 mg/dL High 70-100 [facility] Comment on above: Order Comment: evalu ate for Effusion Performed By: #### 0 0071, 75979, 03165, 29844 ####[facility] [place] [place] [address], [facility] Potassium [Moles/Vol] 4.4 mmol/L Normal 3.5-5.1 [facility] Comment on above: Order Comment: evalu ate for Effusion Performed By: #### 0 0071, 78723, [address], [id number] ####[facility] [id number], [facility] Sodium [Moles/Vol] 132 mmol/L Low 136-145 [facility] Comment on above: Order Comment: evalu ate for Effusion Performed By: #### 0 0071, 79101, 50477, 47586 ####[facility] Urea nitrogen [Mass/Vol] 50 mg/dL High 7-25 [facility] Comment on above: Order Comment: evalu ate for Effusion Performed By: #### 0 0071, 08285, 06262, 95332 ####[facility] CBC COMPLETE BLOOD COUNTon 0 02-23-2022 Erythrocyte distribution width (RBC) [Ratio] 14.9 % Normal 11.5-15.0 [facility] Comment on above: Order Comment: Check Chest Tube Position, ON ARRIVAL TO CVU Performed By: #### 5 0608 ####[address] Hematocrit (Bld) [Volume fraction] 30.5 % Low 39.0-50.0 [facility] Comment on above: Order Comment: Check Chest Tube Position, ON ARRIVAL TO CVU Performed By: #### 5 0608 ####[facility] Hemoglobin (Bld) [Mass/Vol] 10.3 g/dL Low 13.0-17.0 [facility] Comment on above: Order Comment: Check Chest Tube Position, ON ARRIVAL TO CVU Performed By: #### 5 0608 ####[facility] IMM PLATELET FRAC 10.6 % High 0.8-6.3 [facility] Comment on above: Order Comment: Check Chest Tube Position, ON ARRIVAL TO CVU Performed By: #### 5 0608 ####[facility] MCH (RBC) [Entitic mass] 31.3 pg Normal 27.0-33.0 [facility] Comment on above: Order Comment: Check Chest Tube Position, ON ARRIVAL TO CVU Performed By: #### 5 0608 ####[facility] MCHC (RBC) [Mass/Vol] 33.8 g/dL Normal 32.0-35.0 [facility] Comment on above: Order Comment: Check Chest Tube Position, ON ARRIVAL TO CVU Performed By: #### 5 0608 ####[facility] [place] [address], [facility] MCV (RBC) [Entitic vol] 92.7 fL Normal 82.0-98.0 [facility] Comment on above: Order Comment: Check Chest Tube Position, ON ARRIVAL TO CVU Performed By: #### 5 0608 ####[address] Nucleated RBC/100 WBC (Bld) [Ratio] 0 % Normal 0-0 [facility] Comment on above: Order Comment: Check Chest Tube Position, ON ARRIVAL TO CVU Performed By: #### 5 0608 ####[facility] [place] [address], [facility] PLAT CNT 71 10*3/uL Low 150-400 [facility] Comment on above: Order Comment: Check Chest Tube Position, ON ARRIVAL TO CVU Performed By: #### 5 0608 ####[place] [address], [facility] RBC (Bld) [#/Vol] 3.29 10*6/uL Low 4.20-5.70 [facility] Comment on above: Order Comment: Check Chest Tube Position, ON ARRIVAL TO CVU Performed By: #### 5 0608 ####[facility] [place] [address], [facility] WBC (Bld) [#/Vol] 8.45 10*3/uL Normal 4.00-10.60 [facility] Comment on above: Order Comment: Check Chest Tube Position, ON ARRIVAL TO CVU Performed By: #### 5 0608 ####[facility] [place] [address], [facility] MAGNESIUM BLOODon 02-23-2022 Magnesium [Mass/Vol] 2.6 mg/dL Normal 1.9-2.7 [facility] Comment on above: Performed By: #### 3 0965 #### [facility] [address] [place] [address], [facility] PHOSPHORUS BLOODon Phosphate [Mass/Vol] 5.4 mg/dL High 2.5-5.0 [facility] Comment on above: Performed By: #### 3 0965 #### [facility] [address] [place] [address], [facility] POC GLUCOSE LABon 02-23-2022 Glucose [Mass/Vol] 144 mg/dL High 70-100 [facility] Comment on above: Performed By: #### 3 1595 #### [facility] [address] [place], [place] [id number] [place] [address] PORTABLE CHEST 1 VIEWon PORTABLE CHEST [address] [facility] Department of Radiology [address] [place] [id number] ======== Patient Name: IGNACIO AMIN : 1945 Sex: M Age: Race: White Pt. Location: [place] [address] Patient Status: I Ordered Date: 02/23/2022 5:00:00 [...] disease Electronically signed: Aurora Valentino. Transcribed by: [email or web address], User Resident: Electronically Signed by: AURORA VALENTINO @ 02/23/2022 08:18 AM Normal [facility] Comment on above: Order Comment: evalu ate for Effusion Pulmonary Functionon 022 Pulmonary Function MR #: [id number] [facility] PT. Name: Ignacio Amin Date: 02/15/2022 Date [...] Care and Sleep Medicine Date Dict: 02/22/2022/02:57 Lisha/Dorothea Le M.D. Date Trans: 02/23/2022 07:06 Lydia/anirudh [id number] Normal [facility] ARTERIAL BLOOD GAS W/COOXon 02-22-2022 BASE EXCESS -7 mmol/L Low -2-3 [facility] Comment on above: Performed By: #### 3 0739 #### [facility] [address] [place] [address], [place] COHB 1.4 % Normal 0.0-1.5 [facility] Comment on above: Performed By: #### 3 0739 #### [facility] [address] [place] [address], [place] [employer] [place] Normal [facility] Comment on above: Performed By: #### 3 0739 #### [facility] [address] [place] [address], [place] HCO3 (Bld) [Moles/Vol] 19 mmol/L Low 21-28 Th [facility] Comment on above: Performed By: #### 3 0739 #### [facility] [address] [place] [address], [place] LPM 4.0 LPM Normal [facility] Comment on above: Performed By: #### 3 0739 #### [facility] [address] [place] [address], [place] METHB 0.4 % Normal 0.0-1.5 [facility] Comment on above: Performed By: #### 3 0739 #### [facility] [address] [place] [address], [place] Oxygen (Bld) [Partial pressure] 68 mm[Hg] Low 83-108 [facility] Comment on above: Performed By: #### 3 0739 #### [facility] [address] [place] [address], [facility] Oxygen saturation in Blood 93.8 % Low 94.0-97.0 [facility] Comment on above: Performed By: #### 3 0739 #### [facility] [address] [place] [address], [place] PCO2 35 mmHg Normal 35-45 [facility] Comment on above: Performed By: #### 3 0739 #### [facility] [address] [place] [address], [place] pH (Bld) 7.33 [pH] Low 7.35-7.45 [facility] Comment on above: Performed By: #### 3 0739 #### [facility] [address] [place] [address], [facility] THB 11.0 g/dL Low 12.0-16.3 [facility] Comment on above: Performed By: #### 3 0739 #### [facility] [address] [place] [address], [facility] BASIC METABOLIC PANELon 09-0 2-2021 Chloride [Moles/Vol] 104 mmol/L Normal 98-107 [facility] Comment on above: Order Comment: Check Chest Tube Position, ON ARRIVAL TO CVU Performed By: #### 0 0071 ####[facility] [place] [address], [facility] CO2 [Moles/Vol] 20 mmol/L Low 21-31 [facility] Comment on above: Order Comment: Check Chest Tube Position, ON ARRIVAL TO CVU Performed By: #### 0 0071 ####[facility] [place] [address], [facility] Creatinine [Mass/Vol] 1.84 mg/dL High 0.70-1.30 [facility] Comment on above: Order Comment: Check Chest Tube Position, ON ARRIVAL TO CVU Performed By: #### 0 0071 ####[facility] [place] [address], [facility] EGFR 38 ml/min/1.73sq m Abnormal >60 [facility] Comment on above: Order Comment: Check Chest Tube Position, ON ARRIVAL TO CVU Result Comment: [facility]'s estimated glomerular filtration rate (eGFR) will no [...] of individuals. Performed By: #### 0 0071 ####[facility] [place] [address], [facility] Glucose [Mass/Vol] 129 mg/dL High 70-100 [facility] Comment on above: Order Comment: Check Chest Tube Position, ON ARRIVAL TO CVU Performed By: #### 0 0071 ####[place] [address] [place] [address], [facility] Potassium [Moles/Vol] 4.2 mmol/L Normal 3.5-5.1 [facility] Comment on above: Order Comment: Check Chest Tube Position, ON ARRIVAL TO CVU Performed By: #### 0 0071 ####[facility] [place] [address], [facility] Urea nitrogen [Mass/Vol] 41 mg/dL High 7-25 [facility] Comment on above: Order Comment: Check Chest Tube Position, ON ARRIVAL TO CVU Performed By: #### 0 0071 ####[place] [address] [place] [address], [facility] Calcium [Mass/Vol] 8.8 mg/dL Normal 8.6-10.3 [facility] Comment on above: Order Comment: Check Chest Tube Position, ON ARRIVAL TO CVU Performed By: #### 0 0071 ####[facility] [place] [address], [facility] Performed By: #### 0 0071, 97576, 63034 ####[facility] [place] [address], [facility] Chloride [Moles/Vol] 105 mmol/L Normal 98-107 [facility] Comment on above: Order Comment: Check Chest Tube Position, ON ARRIVAL TO CVU Performed By: #### 0 0071, 32374, 37361 ####[facility] [place] [address], [facility] CO2 [Moles/Vol] 19 mmol/L Low 21-31 [facility] Comment on above: Order Comment: Check Chest Tube Position, ON ARRIVAL TO CVU Performed By: #### 0 0071, 29889, 38541 ####[facility] [place] [address], [facility] Creatinine [Mass/Vol] 1.60 mg/dL High 0.70-1.30 [facility] Comment on above: Order Comment: Check Chest Tube Position, ON ARRIVAL TO CVU Performed By: #### 0 0071, 71919, 89680 ####[facility] [place] [address], [facility] EGFR 45 ml/min/1.73sq m Abnormal >60 [facility] Comment on above: Order Comment: Check Chest Tube Position, ON ARRIVAL TO CVU Result Comment: [facility]'s estimated glomerular filtration rate (eGFR) will no [...] of individuals. Performed By: #### 0 0071, 93548, 51343 ####[facility] [facility] [place] [address], [facility] Glucose [Mass/Vol] 137 mg/dL High 70-100 [facility] Comment on above: Order Comment: Check Chest Tube Position, ON ARRIVAL TO CVU Performed By: #### 0 0071, 90053, 95965 ####[facility] [place] [address], [facility] Potassium [Moles/Vol] 4.3 mmol/L Normal 3.5-5.1 [facility] Comment on above: Order Comment: Check Chest Tube Position, ON ARRIVAL TO CVU Performed By: #### 0 0071, 09647, 49087 ####[facility] [facility].[address] Sodium [Moles/Vol] 133 mmol/L Low 136-145 [facility] Comment on above: Order Comment: Check Chest Tube Position, ON ARRIVAL TO CVU Performed By: #### 0 0071 ####[facility] Performed By: #### 0 0071, 87142, 95216 ####[facility] Urea nitrogen [Mass/Vol] 34 mg/dL High 7-25 [facility] Comment on above: Order Comment: Check Chest Tube Position, ON ARRIVAL TO CVU Performed By: #### 0 0071, 61174, 20354 ####[place] [address] [facility].[address] CBC COMPLETE BLOOD COUNTon 0 02-22-2022 Erythrocyte distribution width (RBC) [Ratio] 14.8 % Normal 11.5-15.0 [facility] Comment on above: Order Comment: No: D o not add to previous draw Performed By: #### 5 0608 #### [facility] [address] [place] [address], [facility] Hematocrit (Bld) [Volume fraction] 30.9 % Low 39.0-50.0 [facility] Comment on above: Order Comment: No: D o not add to previous draw Performed By: #### 5 0608 #### [facility] [address] [place] [address], [facility] Hemoglobin (Bld) [Mass/Vol] 10.7 g/dL Low 13.0-17.0 [facility] Comment on above: Order Comment: No: D o not add to previous draw Performed By: #### 5 0608 #### [facility] [address] [place] [address], [facility] IMM PLATELET FRAC 7.9 % High 0.8-6.3 [facility] Comment on above: Order Comment: No: D o not add to previous draw Performed By: #### 5 0608 #### [facility] [address] [place] [address], [facility] MCH (RBC) [Entitic mass] 31.4 pg Normal 27.0-33.0 [facility] Comment on above: Order Comment: No: D o not add to previous draw Performed By: #### 5 0608 #### [facility] [address] [place] [address], [facility] MCHC (RBC) [Mass/Vol] 34.6 g/dL Normal 32.0-35.0 [facility] Comment on above: Order Comment: No: D o not add to previous draw Performed By: #### 5 0608 #### [facility] [address] [place] [address], [facility] MCV (RBC) [Entitic vol] 90.6 fL Normal 82.0-98.0 T anyi [facility] Comment on above: Order Comment: No: D o not add to previous draw Performed By: #### 5 0608 #### [facility] [address] [place] [address], [facility] Nucleated RBC/100 WBC (Bld) [Ratio] 0 % Normal 0-0 [facility] Comment on above: Order Comment: No: D o not add to previous draw Performed By: #### 5 0608 #### [facility] [address] [place] [address], [facility] PLAT CNT 74 10*3/uL Low 150-400 [facility] Comment on above: Order Comment: No: D o not add to previous draw Performed By: #### 5 0608 #### [facility] [address] [place] [address], [facility] RBC (Bld) [#/Vol] 3.41 10*6/uL Low 4.20-5.70 [facility] Comment on above: Order Comment: No: D o not add to previous draw Performed By: #### 5 0608 #### [facility] [address] [place] [address], [facility] WBC (Bld) [#/Vol] 9.54 10*3/uL Normal 4.00-10.60 [facility] Comment on above: Order Comment: No: D o not add to previous draw Performed By: #### 5 0608 #### [facility] [address] [place] [address], [facility] MAGNESIUM BLOODon 02-22-2022 Magnesium [Mass/Vol] 2.3 mg/dL Normal 1.9-2.7 [facility] Comment on above: Order Comment: Check Chest Tube Position, ON ARRIVAL TO CVU Performed By: #### 0 0071, 92331, 28177 ####[facility] [facility] [address], [facility] PHOSPHORUS BLOODon Phosphate [Mass/Vol] 3.8 mg/dL Normal 2.5-5.0 [facility] Comment on above: Order Comment: Check Chest Tube Position, ON ARRIVAL TO CVU Performed By: #### 0 0071, 62596, 79001 ####[facility] PORTABLE CHEST 1 VIEWon PORTABLE CHEST [address] [facility] Department of Radiology [address] [place] [address] ======== Patient Name: IGNACIO AMIN : 1945 Sex: M Age: Race: White Pt. Location: [place] [address] Patient Status: I Ordered Date: 02/22/2022 5:00:00 [...] recommended. Electronically signed: Martin Giordano. Transcribed by: [email or web address], User Resident: Electronically Signed by: MARTIN GIORDANO @ 02/22/2022 12:04 PM Normal [facility] Comment on above: Order Comment: Evalu ate for Pneumothorax URINALYSIS REFLEXon 02-23-20 22 Appearance (U) CLEAR Normal CLEAR [facility] Comment on above: Order Comment: No: D o not add to previous draw Criteria for reflexing a culture was not met. Please call the lab at [phone] within 24 hours of collection time if culture is needed Performed By: #### 3 0965 #### [facility] [address] [place] [address], [place] Bilirubin Ql (U) Negative Normal NEGATIVE [facility] Comment on above: Order Comment: No: D o not add to previous draw Criteria for reflexing a culture was not met. Please call the lab at [phone] within 24 hours of collection time if culture is needed Performed By: #### 3 0965 #### [facility] [address] [place] [address], [place] Color (U) YELLOW Normal YELLOW [facility] Comment on above: Order Comment: No: D o not add to previous draw Criteria for reflexing a culture was not met. Please call the lab at [phone] within 24 hours of collection time if culture is needed Performed By: #### 3 0965 #### [facility] [address] [place] [address], [place] EPIS NONE SEEN Normal FEW,OCC,NON E SEEN [facility] Comment on above: Order Comment: No: D o not add to previous draw Criteria for reflexing a culture was not met. Please call the lab at [phone] within 24 hours of collection time if culture is needed Performed By: #### 3 0965 #### [facility] [address] [place] [address], [facility] Glucose Ql (U) Negative Normal NEGATIVE [facility] Comment on above: Order Comment: No: D o not add to previous draw Criteria for reflexing a culture was not met. Please call the lab at [phone] within 24 hours of collection time if culture is needed Performed By: #### 3 0965 #### [facility] [address] [place] [address], [facility] Hemoglobin Ql (U) SMALL Abnormal NEGATIVE [facility] Comment on above: Order Comment: No: D o not add to previous draw Criteria for reflexing a culture was not met. Please call the lab at [phone] within 24 hours of collection time if culture is needed Performed By: #### 3 0965 #### [facility] [address] [facility] [place] [address], [facility] Hyaline casts LM Ql (Urine sed) 6-10 Abnormal NONE SEEN [facility] Comment on above: Order Comment: No: D o not add to previous draw Criteria for reflexing a culture was not met. Please call the lab at [phone] within 24 hours of collection time if culture is needed Performed By: #### 3 0965 #### [facility] [address] [place] [address], [facility] KETONE Negative Normal NEGATIVE [facility] Comment on above: Order Comment: No: D o not add to previous draw Criteria for reflexing a culture was not met. Please call the lab at [phone] within 24 hours of collection time if culture is needed Performed By: #### 3 0965 #### [facility] [address] [place] [id number], [facility] LEUK TOMA Negative Normal NEGATIVE [facility] Comment on above: Order Comment: No: D o not add to previous draw Criteria for reflexing a culture was not met. Please call the lab at [phone] within 24 hours of collection time if culture is needed Performed By: #### 3 0965 #### [facility] [address] [place] [address], [facility] MUCUS THREADS OCC Abnormal NONE SEEN The [facility] Comment on above: Order Comment: No: D o not add to previous draw Criteria for reflexing a culture was not met. Please call the lab at [phone] within 24 hours of collection time if culture is needed Performed By: #### 3 0965 #### [facility] [address] [place] [address], [facility] Nitrite Ql (U) Negative Normal NEGATIVE [facility] Comment on above: Order Comment: No: D o not add to previous draw Criteria for reflexing a culture was not met. Please call the lab at [phone] within 24 hours of collection time if culture is needed Performed By: #### 3 0965 #### [facility] [address] [place] [address], [facility] pH (U) 5.0 [pH] Normal 5.0-8.0 [facility] Comment on above: Order Comment: No: D o not add to previous draw Criteria for reflexing a culture was not met. Please call the lab at [phone] within 24 hours of collection time if culture is needed Performed By: #### 3 0965 #### [facility] [address] [place] [address], [facility] Protein Ql (U) TRACE Abnormal NEGATIVE [facility] Comment on above: Order Comment: No: D o not add to previous draw Criteria for reflexing a culture was not met. Please call the lab at [phone] within 24 hours of collection time if culture is needed Performed By: #### 3 0965 #### [facility] [address] [facility] [place] [id number], [facility] RBC 6-10 Abnormal NONE SEEN The [facility] Comment on above: Order Comment: No: D o not add to previous draw Criteria for reflexing a culture was not met. Please call the lab at [phone] within 24 hours of collection time if culture is needed Performed By: #### 3 0965 #### [facility] [address] [place] [address], [facility] SPEC GRAV 1.016 Normal 1.015-1.020 [facility] Comment on above: Order Comment: No: D o not add to previous draw Criteria for reflexing a culture was not met. Please call the lab at [phone] within 24 hours of collection time if culture is needed Performed By: #### 3 0965 #### [facility] [address] [place] [address], [facility] WBC UA 3-5 Abnormal NONE SEEN [facility] Comment on above: Order Comment: No: D o not add to previous draw Criteria for reflexing a culture was not met. Please call the lab at [phone] within 24 hours of collection time if culture is needed Performed By: #### 3 0965 #### [facility] [address] [facility] APTTon 02-21-2022 aPTT Coag (Bld) [Time] 38.0 s High 25.0-35.0 Th e [facility] Comment on above: Order Comment: Check Chest [...] THIS PURPOSE. Performed By: #### 5 7307, 26129 ####[facility] [place] [address], [facility] BASIC METABOLIC PANELon Calcium [Mass/Vol] 8.6 mg/dL Normal 8.6-10.3 [facility] Comment on above: Order Comment: Check Chest Tube Position, ON ARRIVAL TO CVU Performed By: #### 1 0070, 52796 ####[facility] [place] [address], [facility] Chloride [Moles/Vol] 107 mmol/L Normal 98-107 [facility] Comment on above: Order Comment: Check Chest Tube Position, ON ARRIVAL TO CVU Performed By: #### 1 69, 29669 ####[facility] [facility] [place] [address], [facility] CO2 [Moles/Vol] 18 mmol/L Low 21-31 [facility] Comment on above: Order Comment: Check Chest Tube Position, ON ARRIVAL TO CVU Performed By: #### 1 69, 47158 ####[facility] [place] [place] [address], [facility] Creatinine [Mass/Vol] 1.69 mg/dL High 0.70-1.30 [facility] Comment on above: Order Comment: Check Chest Tube Position, ON ARRIVAL TO CVU Performed By: #### 1 69, 85870 ####[facility] [facility].[address] EGFR 42 ml/min/1.73sq m Abnormal >60 [facility] Comment on above: Order Comment: Check Chest Tube Position, ON ARRIVAL TO CVU Result Comment: [facility]'s estimated glomerular filtration rate (eGFR) will no [...] of individuals. Performed By: #### 1 69, 89765 ####[facility] [place] [place] [address], [facility] Glucose [Mass/Vol] 155 mg/dL High 70-100 [facility] Comment on above: Order Comment: Check Chest Tube Position, ON ARRIVAL TO CVU Performed By: #### 1 0070, 34869 ####[facility] [place] [address], [place] Potassium [Moles/Vol] 4.6 mmol/L Normal 3.5-5.1 [facility] Comment on above: Order Comment: Check Chest Tube Position, ON ARRIVAL TO CVU Performed By: #### 1 0, 13249 ####[facility] [place] [address], [place] Sodium [Moles/Vol] 136 mmol/L Normal 136-145 [facility] Comment on above: Order Comment: Check Chest Tube Position, ON ARRIVAL TO CVU Performed By: #### 1 0, 47208 ####[facility] [place] [address], [place] Urea nitrogen [Mass/Vol] 29 mg/dL High 7-25 [facility] Comment on above: Order Comment: Check Chest Tube Position, ON ARRIVAL TO CVU Performed By: #### 1 69, 07214 ####[facility] [place] [address], [place] Calcium [Mass/Vol] 8.5 mg/dL Low 8.6-10.3 [facility] Comment on above: Order Comment: evalu ate for Effusion Performed By: #### 0 0071, 25849, 81924 ####[facility] [place] [address], [place] Chloride [Moles/Vol] 108 mmol/L High 98-107 [facility] Comment on above: Order Comment: evalu ate for Effusion Performed By: #### 0 0071, 60286, 80230 ####[facility] [place] [address], [place] CO2 [Moles/Vol] 21 mmol/L Normal 21-31 [facility] Comment on above: Order Comment: evalu ate for Effusion Performed By: #### 0 0071, 44114, 65839 ####[facility] [place] [address], [facility] Creatinine [Mass/Vol] 1.27 mg/dL Normal 0.70-1.30 [facility] Comment on above: Order Comment: evalu ate for Effusion Performed By: #### 0 0071, 63039, 98713 ####[facility] [place] [address], [facility] EGFR 59 ml/min/1.73sq m Abnormal >60 [facility] Comment on above: Order Comment: evalu ate for Effusion Result Comment: [facility]'s estimated glomerular filtration rate (eGFR) will no [...] of individuals. Performed By: #### 0 0071, 39411, 16331 ####[facility] [place] [address], [facility] Glucose [Mass/Vol] 118 mg/dL High 70-100 [facility] Comment on above: Order Comment: evalu ate for Effusion Performed By: #### 0 0071, 58055, 17437 ####[facility] [place] [place] [address], [facility] Potassium [Moles/Vol] 4.4 mmol/L Normal 3.5-5.1 [facility] Comment on above: Order Comment: evalu ate for Effusion Performed By: #### 0 0071, 99258, 25853 ####[facility] [place] [address], [facility] Sodium [Moles/Vol] 137 mmol/L Normal 136-145 [facility] Comment on above: Order Comment: evalu ate for Effusion Performed By: #### 0 0071, 59176, 81502 ####[facility], [place] [address] [place] [address] Urea nitrogen [Mass/Vol] 22 mg/dL Normal 7-25 [facility] Comment on above: Order Comment: evalu ate for Effusion Performed By: #### 0 0071, 57350, 03406 ####[facility] CBC COMPLETE BLOOD COUNTon 0 02-21-2022 Erythrocyte distribution width (RBC) [Ratio] 14.6 % Normal 11.5-15.0 [facility] Comment on above: Order Comment: No: D o not add to previous draw Performed By: #### 5 0608 #### [facility] [address] Hematocrit (Bld) [Volume fraction] 30.4 % Low 39.0-50.0 [facility] Comment on above: Order Comment: No: D o not add to previous draw Performed By: #### 5 0608 #### [facility] [address] [place] [address], [facility] Hemoglobin (Bld) [Mass/Vol] 10.4 g/dL Low 13.0-17.0 [facility] Comment on above: Order Comment: No: D o not add to previous draw Performed By: #### 5 0608 #### [facility] [address] [place] [address], [facility] IMM PLATELET FRAC 5.8 % Normal 0.8-6.3 [facility] Comment on above: Order Comment: No: D o not add to previous draw Performed By: #### 5 0608 #### [facility] [address] [place] [address], [facility] MCH (RBC) [Entitic mass] 31.0 pg Normal 27.0-33.0 [facility] Comment on above: Order Comment: No: D o not add to previous draw Performed By: #### 5 0608 #### [facility] [address] [place] [address], [facility] MCHC (RBC) [Mass/Vol] 34.2 g/dL Normal 32.0-35.0 [facility] Comment on above: Order Comment: No: D o not add to previous draw Performed By: #### 5 0608 #### [facility] [address] [place] [address], [facility] MCV (RBC) [Entitic vol] 90.7 fL Normal 82.0-98.0 [facility] Comment on above: Order Comment: No: D o not add to previous draw Performed By: #### 5 0608 #### [facility] [address] [place] [address], [facility] Nucleated RBC/100 WBC (Bld) [Ratio] 0 % Normal 0-0 [facility] Comment on above: Order Comment: No: D o not add to previous draw Performed By: #### 5 0608 #### [facility] [address] [place] [address], [facility] PLAT CNT 83 10*3/uL Low 150-400 [facility] Comment on above: Order Comment: No: D o not add to previous draw Performed By: #### 5 0608 #### [facility] [address] [place] [address], [facility] RBC (Bld) [#/Vol] 3.35 10*6/uL Low 4.20-5.70 [facility] Comment on above: Order Comment: No: D o not add to previous draw Performed By: #### 5 0608 #### [facility] [address] [place] [address], [facility] WBC (Bld) [#/Vol] 6.89 10*3/uL Normal 4.00-10.60 [facility] Comment on above: Order Comment: No: D o not add to previous draw Performed By: #### 5 0608 #### [facility] [address] [place] [address], [place] COOXIMETRYon 02-21-2022 COHB 2 % Normal [facility] Comment on above: Performed By: #### 7 0207 ####[facility] [place] [address], [place] METHB 0 % Normal [facility] Comment on above: Performed By: #### 7 7 ####[facility] [place] [address], [facility] Oxygen saturation in Blood 53.5 % Low 65.0-75.0 [facility] Comment on above: Performed By: #### 7 7 ####[facility] [place] [address], [facility] THB 11.6 g/dL Normal [facility] Comment on above: Performed By: #### 7 7 ####[facility] [place] [address], [facility] LACTATE BLOODon 02-21-2022 Lactate [Moles/Vol] 1.0 mmol/L Normal .5-2.2 [facility] Comment on above: Order Comment: Evalu ate for Pneumothorax Performed By: #### 1 0054 ####[facility] [place] [address], [facility] MAGNESIUM BLOODon 02-21-2022 Magnesium [Mass/Vol] 2.3 mg/dL Normal 1.9-2.7 [facility] Comment on above: Order Comment: Check Chest Tube Position, ON ARRIVAL TO CVU Performed By: #### 1 0070, 20749 ####[facility] [place] [address], [place] Magnesium [Mass/Vol] 1.9 mg/dL Normal 1.9-2.7 [facility] Comment on above: Order Comment: evalu ate for Effusion Performed By: #### 0 0071, 39783, 20714 ####[facility] Operative Reporton 2 Operative Report MR#: [id number] I [facility] Pt. Name: Ignacio Amin Room #: JATIN [id number] Discharge Date: Birthdate: 1945 OPERATIVE REPORT DATE [...] anesthesia was induced. Colvin catheter was placed. [place]-Sundar catheter was placed, which demonstrated mildly elevated [...] chest tubes were placed that were 32 [place]. The sternum was reapproximated with #6 wire. The fascia was (more content not included)... Normal [facility] PHOSPHORUS BLOODon Phosphate [Mass/Vol] 5.2 mg/dL High 2.5-5.0 [facility] Comment on above: Order Comment: evalu ate for Effusion Performed By: #### 0 0071, 68304, 69752 ####[facility] POC GLUCOSE LABon 02-21-2022 Glucose [Mass/Vol] 124 mg/dL High 70-100 [facility] Comment on above: Performed By: #### 3 1595 #### [facility] [address] PORTABLE CHEST 1 VIEWon PORTABLE CHEST [address] [facility] Department of Radiology [address] [place] [address] ======== Patient Name: IGNACIO AMIN : 1945 Sex: M Age: Race: White Pt. Location: [id number] Patient Status: I Ordered Date: 02/21/2022 7:00:00 [...] is enlarged with vascular prominence centrally. The [place]-Sundar catheter tip overlies the main pulmonary outflow tract. A left chest tube remains in place with no visible pneumothorax. Strandy perihilar and basilar infiltrates are present some worsening volume loss in the lung bases is blunting of the right costophrenic angle IMPRESSION: Slight worsening of pulmonary infiltrates. Support lines and tubes remain in place. Electronically signed: Jaspreet Hastings. Transcribed by: [id number], User Resident: Electronically Signed by: JASPREET HASTINGS @ 02/21/2022 08:00 AM Normal [facility] Comment on above: Order Comment: Check Chest Tube Position, ON ARRIVAL TO CVU PROTHROMBIN TIMEon INR Coag (PPP) [Relative time] 1.36 {INR} High 0.91-1.16 [facility] Comment on above: Order Comment: Check Chest Tube Position, ON ARRIVAL TO CVU Result Comment: ACCC P RECOMMENDED INR FOR WARFARIN THERAPY ------- CONDITION INR PROPHYLAXIS OF VENOUS THROMBOSIS 2-3 (HIGH-RISK SURGERY) TREATMENT OF VENOUS THROMBOSIS 2-3 TREATMENT OF PULMONARY EMBOLISM 2-3 PREVENTION OF SYSTEMIC EMBOLISM: 2-3 ACUTE MYOCARDIAL INFARCTION TISSUE HEART VALVES VALVULAR HEART DISEASE ATRIAL FIBRILLATION RECURRENT SYSTEMIC EMBOLISM MECHANICAL HEART VALVE 2.5-3.5 FROM: ORAL ANTICOAGULANTS. MECHANISM OF ACTION, CLINICAL EFFECTIVENESS, AND OPTIMAL THERAPEUTIC RANGE. CHEST 1995;108:231S-246S. Performed By: #### 5 7307, 74499 ####[facility] [place] [address], [facility] PT Coag (PPP) [Time] 16.7 s High 12.3-14.8 [facility] Comment on above: Order Comment: Check Chest Tube Position, ON ARRIVAL TO CVU Result Comment: ALL RESULTS MUST BE INTERPRETED WITH RESPECT TO BLOOD DRAWING ARTIFACT OR DILUTION ERROR OF ANTICOAGULANT AT THE TIME OF SAMPLING. Performed By: #### 5 7307, 87264 ####[facility] [place] [address], [facility] ACTIVATED CLOTTING TIMEon ACTIVATED CLOTTING TIME 110 sec Normal 82-152 [facility] Comment on above: Performed By: #### 8 5499 #### [facility] [address] [place] [address], [facility] ACTIVATED CLOTTING TIME 116 sec Normal 82-152 T [facility] Comment on above: Performed By: #### 3 0739 #### [facility] [address] [place] [address], [place] ACTIVATED CLOTTING TIME 134 sec Normal 82-152 [facility] Comment on above: Performed By: #### 8 5499 #### [facility] [address] [place] [address], [place] ACTIVATED CLOTTING TIME 537 sec High 82-152 T [facility] Comment on above: Performed By: #### 3 1595 #### [facility] [address] [place] [address], [place] ACTIVATED CLOTTING TIME 692 sec High 82-152 [facility] Comment on above: Performed By: #### 3 1595 #### [facility] [address] [place] [address], [facility] ACTIVATED CLOTTING TIME 861 sec High 82-152 T [facility] Comment on above: Performed By: #### 8 5499 #### [facility] [address] [place] [address], [place] ACTIVATED CLOTTING TIME 651 sec High 82-152 T [facility] Comment on above: Performed By: #### 3 2044 #### [facility] [address] [place] [address], [place] ACTIVATED CLOTTING TIME 140 sec Normal 82-152 T [facility] Comment on above: Performed By: #### 8 5499 #### [facility] [address] [place] [address], [facility] APTTon 02-20-2022 aPTT Coag (Bld) [Time] 33.7 s Normal 25.0-35.0 Th [facility] Comment on above: Order Comment: Check Chest [...] THIS PURPOSE. Performed By: #### 5 6101, 18667 ####[facility] [place] [address], [facility] aPTT Coag (Bld) [Time] 39.1 s High 25.0-35.0 [facility] Comment on above: Result Comment: ALL RESULTS [...] THIS PURPOSE. Performed By: #### 5 6101, 85803, 51757 ####[facility] [place] [address], [facility] aPTT Coag (Bld) [Time] 109.3 s Critically high 25.0-35. 0 [facility] Comment on above: Order Comment: Check Chest Tube Position, ON ARRIVAL TO CVU Result Comment: Resu lt checked and called. Accurately read back by Marie Silva at 0610 Performed By: #### 3 0477, 53065, 08766 ####[facility] [place] [address], [facility] ARTERIAL BLOOD GAS WITH ICAo n 02-20-2022 BASE EXCESS -5 mmol/L Low -2-3 [facility] Comment on above: Performed By: #### 3 2043 #### [facility] [address] [place] [address], [facility] DELIVERY SYSTEMS VENTILATOR Normal [facility] Comment on above: Performed By: #### 3 2043 #### [facility] [address] [place] [address], [place] FIO2 40 % Normal [facility] Comment on above: Performed By: #### 3 2043 #### [facility] [address] [place] [address], [facility] HCO3 (Bld) [Moles/Vol] 21 mmol/L Normal 21-28 [facility] Comment on above: Performed By: #### 3 2043 #### [facility] [address] [place] [address], [place] IONIZED CALCIUM 1.20 mmol/L Normal 1.13-1.32 [facility] Comment on above: Performed By: #### 3 2043 #### [facility] [address] [place] [address], [place] MIN VOLUME 8.1 Normal [facility] Comment on above: Performed By: #### 3 2043 #### [facility] [address] [place] [address], [place] MODALITY Positive Normal [facility] Comment on above: Performed By: #### 3 2043 #### [facility] [address] [place] [address], [place] Oxygen (Bld) [Partial pressure] 125 mm[Hg] Critically high 83-108 [facility] Comment on above: Performed By: #### 3 2043 #### [facility] [address] [place] [address], [place] Oxygen saturation in Blood 97.3 % High 94.0-97.0 [facility] Comment on above: Performed By: #### 3 2043 #### [facility] [address] [place] [address], [place] PCO2 38 mmHg Normal 35-45 [facility] Comment on above: Performed By: #### 2043 #### [facility] [address] [place] [address], [place] PEEP 5.0 CMH20 Normal [facility] Comment on above: Performed By: #### 3 2043 #### [facility] [address] [place] [address], [place] PF RATIO 313 mmHg Normal [facility] Comment on above: Performed By: #### 3 2043 #### [facility] [address] [place] [address], [place] pH (Bld) 7.34 [pH] Low 7.35-7.45 [facility] Comment on above: Performed By: #### 2043 #### [facility] [address] [place] [address], [place] PRESSURE SUPPORT 8 Normal [facility] Comment on above: Performed By: #### 3 2043 #### [facility] [address] [place] [address], [place] BASE EXCESS -4 mmol/L Low -2-3 [facility] Comment on above: Order Comment: on ar rival to CVU Performed By: #### 3 0739 #### [facility] [address] [place] [address], [place] DELIVERY SYSTEMS VENTILATOR Normal [facility] Comment on above: Order Comment: on ar rival to CVU Performed By: #### 3 0739 #### [facility] [address] [place] [address], [place] FIO2 50 % Normal [facility] Comment on above: Order Comment: on ar rival to CVU Performed By: #### 3 0739 #### [facility] [address] [place] [address], [place] HCO3 (Bld) [Moles/Vol] 22 mmol/L Normal 21-28 e [facility] Comment on above: Order Comment: on ar rival to CVU Performed By: #### 3 0739 #### [facility] [address] [place] [address], [place] IONIZED CALCIUM 1.20 mmol/L Normal 1.13-1.32 [facility] Comment on above: Order Comment: on ar rival to CVU Performed By: #### 3 0739 #### [facility] [address] [place] [address], [place] MIN VOLUME 7.4 Normal [facility] Comment on above: Order Comment: on ar rival to CVU Performed By: #### 3 0739 #### [facility] [address] [place] [address], [place] MODALITY SIMV Normal [facility] Comment on above: Order Comment: on ar rival to CVU Performed By: #### 3 0739 #### [facility] [address] [place] [address], [place] Oxygen (Bld) [Partial pressure] 150 mm[Hg] Critically high 83-108 [facility] Comment on above: Order Comment: on ar rival to CVU Performed By: #### 3 0739 #### [facility] [address] [place] [address], [place] Oxygen saturation in Blood 97.6 % High 94.0-97.0 [facility] Comment on above: Order Comment: on ar rival to CVU Performed By: #### 3 0739 #### [facility] [address] [place] [address], [place] PCO2 42 mmHg Normal 35-45 [facility] Comment on above: Order Comment: on ar rival to CVU Performed By: #### 3 0739 #### [facility] [address] [place] [address], [place] PEEP 8.0 CMH20 Normal [facility] Comment on above: Order Comment: on ar rival to CVU Performed By: #### 3 0739 #### [facility] [address] [place] [address], [place] PF RATIO 300 mmHg Normal [facility] Comment on above: Order Comment: on ar rival to CVU Performed By: #### 3 0739 #### [facility] [address] [place] [address], [place] pH (Bld) 7.32 [pH] Low 7.35-7.45 [facility] Comment on above: Order Comment: on ar rival to CVU Performed By: #### 3 0739 #### [facility] [address] [place] [address], [place] PRESSURE SUPPORT 8 Normal [facility] Comment on above: Order Comment: on ar rival to CVU Performed By: #### 3 0739 #### [facility] [address] [place] [address], [place] Respiratory rate 16 /min Normal [facility] Comment on above: Order Comment: on ar rival to CVU Performed By: #### 3 0739 #### [facility] [address] [place] [address], [facility] TIDAL VOLUME (VT) CC 450 Normal [facility] Comment on above: Order Comment: on ar rival to CVU Performed By: #### 3 0739 #### [facility] [address] [place] [address], [place] BASIC METABOLIC PANELon 08-3 Calcium [Mass/Vol] 8.4 mg/dL Low 8.6-10.3 [facility] Comment on above: Order Comment: evalu ate for Effusion Performed By: #### 1 0070, 71549, 91578, 07077, 68294 ####[facility] [place] [address], [facility] Chloride [Moles/Vol] 111 mmol/L High 98-107 [facility] Comment on above: Order Comment: evalu ate for Effusion Performed By: #### 1 0070, 55943, 97058, 73973, 89914 ####[facility] [place] [address], [facility] CO2 [Moles/Vol] 22 mmol/L Normal 21-31 [facility] Comment on above: Order Comment: evalu ate for Effusion Performed By: #### 1 0070, 94217, 54804, 82062, 19389 ####[facility] [place] [address], [facility] Creatinine [Mass/Vol] 0.79 mg/dL Normal 0.70-1.30 [facility] Comment on above: Order Comment: evalu ate for Effusion Performed By: #### 1 0070, 12011, 89483, 80505, 76095 ####[facility] [place] [address], [place] GFR/1.73 sq M.predicted among non-blacks MDRD (S/P/Bld) [Vol rate/Area] mL/min/{1.73_m2} Normal >60 [facility] Comment on above: Order Comment: evalu ate for Effusion Result Comment: [facility]'s estimated glomerular filtration rate (eGFR) will no [...] of individuals. Performed By: #### 1 0070, 56008, 33470, 57474, 62102 ####[facility] [place] [address], [facility] Glucose [Mass/Vol] 124 mg/dL High 70-100 [facility] Comment on above: Order Comment: evalu ate for Effusion Performed By: #### 1 0070, 95813, 43374, 16989, 32428 ####[facility] [place] [address], [place] Potassium [Moles/Vol] 4.5 mmol/L Normal 3.5-5.1 [facility] Comment on above: Order Comment: evalu ate for Effusion Performed By: #### 1 0070, 59103, 49892, 06766, 99666 ####[facility] [place] [address], [place] Sodium [Moles/Vol] 140 mmol/L Normal 136-145 [facility] Comment on above: Order Comment: evalu ate for Effusion Performed By: #### 1 0070, 70113, 14538, 10261, 65326 ####[facility] [place] [address], [place] Urea nitrogen [Mass/Vol] 16 mg/dL Normal 7-25 [facility] Comment on above: Order Comment: evalu ate for Effusion Performed By: #### 1 0070, 33663, [address]1105, 07853, 75426 ####[facility] [place] [address], [facility] Calcium [Mass/Vol] 7.8 mg/dL Low 8.6-10.3 [facility] Comment on above: Performed By: #### 1 0, 64371 ####[facility] [place] [address], [facility] Chloride [Moles/Vol] 112 mmol/L High 98-107 [facility] Comment on above: Performed By: #### 1 0, 72331 ####[facility] [place] [address], [facility] CO2 [Moles/Vol] 24 mmol/L Normal 21-31 [facility] Comment on above: Performed By: #### 1 0, 05290 ####[facility] [place] [address], [facility] Creatinine [Mass/Vol] 0.81 mg/dL Normal 0.70-1.30 [facility] Comment on above: Performed By: #### 1 0, 34448 ####[place] [id number] [address] GFR/1.73 sq M.predicted among non-blacks MDRD (S/P/Bld) [Vol rate/Area] mL/min/{1.73_m2} Normal >60 [facility] Comment on above: Result Comment: [facility]'s estimated glomerular filtration rate (eGFR) will no [...] of individuals. Performed By: #### 1 69, 12013 ####[facility] [place] [address], [place] Glucose [Mass/Vol] 105 mg/dL High 70-100 [facility] Comment on above: Performed By: #### 1 69, 92672 ####[facility] [place] [address], [place] Potassium [Moles/Vol] 4.0 mmol/L Normal 3.5-5.1 [facility] Comment on above: Performed By: #### 1 69, 73779 ####[facility] [place] [address], [place] Sodium [Moles/Vol] 142 mmol/L Normal 136-145 [facility] Comment on above: Performed By: #### 1 69, 10496 ####[facility] [place] [address], [place] Urea nitrogen [Mass/Vol] 17 mg/dL Normal 7-25 [facility] Comment on above: Performed By: #### 1 69, 21478 ####[facility] [place] [address], [place] Calcium [Mass/Vol] 8.9 mg/dL Normal 8.6-10.3 [facility] Comment on above: Order Comment: Check Chest Tube Position, ON ARRIVAL TO CVU Performed By: #### 0 0071, 78853, 01986 ####[facility] [place] [address], [place] Chloride [Moles/Vol] 110 mmol/L High 98-107 [facility] Comment on above: Order Comment: Check Chest Tube Position, ON ARRIVAL TO CVU Performed By: #### 0 0071, 20684, 79120 ####[facility] [place] [address], [place] CO2 [Moles/Vol] 23 mmol/L Normal 21-31 [facility] Comment on above: Order Comment: Check Chest Tube Position, ON ARRIVAL TO CVU Performed By: #### 0 0071, 87857, 75256 ####[facility] [place] [address], [facility] Creatinine [Mass/Vol] 0.90 mg/dL Normal 0.70-1.30 [facility] Comment on above: Order Comment: Check Chest Tube Position, ON ARRIVAL TO CVU Performed By: #### 0 0071, 28647, 81486 ####[facility] [place] [address], [facility] GFR/1.73 sq M.predicted among non-blacks MDRD (S/P/Bld) [Vol rate/Area] mL/min/{1.73_m2} Normal >60 [facility] Comment on above: Order Comment: Check Chest Tube Position, ON ARRIVAL TO CVU Result Comment: [facility]'s estimated glomerular filtration rate (eGFR) will no [...] of individuals. Performed By: #### 0 0071, 58755, 28888 ####[facility] [place] [address], [place] Glucose [Mass/Vol] 91 mg/dL Normal 70-100 [facility] Comment on above: Order Comment: Check Chest Tube Position, ON ARRIVAL TO CVU Performed By: #### 0 0071, 09409, 21872 ####[facility] [place] [address], [place] Potassium [Moles/Vol] 3.7 mmol/L Normal 3.5-5.1 [facility] Comment on above: Order Comment: Check Chest Tube Position, ON ARRIVAL TO CVU Performed By: #### 0 0071, 24826, 50825 ####[facility] [place] [address], [facility] Sodium [Moles/Vol] 141 mmol/L Normal 136-145 [facility] Comment on above: Order Comment: Check Chest Tube Position, ON ARRIVAL TO CVU Performed By: #### 0 0071, 05878, 20272 ####[facility] [place] [address], [facility] Urea nitrogen [Mass/Vol] 23 mg/dL Normal 7-25 [facility] Comment on above: Order Comment: Check Chest Tube Position, ON ARRIVAL TO CVU Performed By: #### 0 0071, 34626, 76262 ####[facility] [place] [address], [facility] CBC COMPLETE BLOOD COUNTon 0 02-20-2022 Erythrocyte distribution width (RBC) [Ratio] 13.9 % Normal 11.5-15.0 [facility] Comment on above: Order Comment: Check Chest Tube Position, ON ARRIVAL TO CVU Performed By: #### 5 0608 ####[facility] [place] [address], [facility] Hematocrit (Bld) [Volume fraction] 33.9 % Low 39.0-50.0 [facility] Comment on above: Order Comment: Check Chest Tube Position, ON ARRIVAL TO CVU Performed By: #### 5 0608 ####[facility] [place] [address], [facility] Hemoglobin (Bld) [Mass/Vol] 11.1 g/dL Low 13.0-17.0 [facility] Comment on above: Order Comment: Check Chest Tube Position, ON ARRIVAL TO CVU Performed By: #### 5 0608 ####[facility] IMM PLATELET FRAC 5.9 % Normal 0.8-6.3 [facility] Comment on above: Order Comment: Check Chest Tube Position, ON ARRIVAL TO CVU Performed By: #### 5 0608 ####[facility] [facility] MCH (RBC) [Entitic mass] 30.2 pg Normal 27.0-33.0 [facility] Comment on above: Order Comment: Check Chest Tube Position, ON ARRIVAL TO CVU Performed By: #### 5 0608 ####[facility] MCHC (RBC) [Mass/Vol] 32.7 g/dL Normal 32.0-35.0 [facility] Comment on above: Order Comment: Check Chest Tube Position, ON ARRIVAL TO CVU Performed By: #### 5 0608 ####[facility] [facility].[address] MCV (RBC) [Entitic vol] 92.4 fL Normal 82.0-98.0 T [facility] Comment on above: Order Comment: Check Chest Tube Position, ON ARRIVAL TO CVU Performed By: #### 5 0608 ####[facility] Nucleated RBC/100 WBC (Bld) [Ratio] 0 % Normal 0-0 [facility] Comment on above: Order Comment: Check Chest Tube Position, ON ARRIVAL TO CVU Performed By: #### 5 0608 ####[facility] PLAT CNT 98 10*3/uL Low 150-400 [facility] Comment on above: Order Comment: Check Chest Tube Position, ON ARRIVAL TO CVU Performed By: #### 5 0608 ####[facility] RBC (Bld) [#/Vol] 3.67 10*6/uL Low 4.20-5.70 [facility] Comment on above: Order Comment: Check Chest Tube Position, ON ARRIVAL TO CVU Performed By: #### 5 0608 ####[facility] [facility] WBC (Bld) [#/Vol] 9.42 10*3/uL Normal 4.00-10.60 [facility] Comment on above: Order Comment: Check Chest Tube Position, ON ARRIVAL TO CVU Performed By: #### 5 0608 ####[facility] Erythrocyte distribution width (RBC) [Ratio] 13.8 % Normal 11.5-15.0 [facility] Comment on above: Performed By: #### 5 0608 #### [facility] [address] Hematocrit (Bld) [Volume fraction] 28.6 % Low 39.0-50.0 [facility] Comment on above: Performed By: #### 5 0608 #### [facility] [address] Hemoglobin (Bld) [Mass/Vol] 9.7 g/dL Low 13.0-17.0 [facility] Comment on above: Performed By: #### 5 0608 #### [facility] [address] IMM PLATELET FRAC 5.0 % Normal 0.8-6.3 [facility] Comment on above: Performed By: #### 5 0608 #### [facility] [address] MCH (RBC) [Entitic mass] 31.3 pg Normal 27.0-33.0 [facility] Comment on above: Performed By: #### 5 0608 #### [facility] [address] MCHC (RBC) [Mass/Vol] 33.9 g/dL Normal 32.0-35.0 [facility] Comment on above: Performed By: #### 5 0608 #### [facility] [address] [facility] [place] [address], [facility] MCV (RBC) [Entitic vol] 92.3 fL Normal 82.0-98.0 [facility] Comment on above: Performed By: #### 5 0608 #### [facility] [address] [place] [address], [facility] Nucleated RBC/100 WBC (Bld) [Ratio] 0 % Normal 0-0 [facility] Comment on above: Performed By: #### 5 0608 #### [facility] [address] [place] [address], [facility] PLAT CNT 73 10*3/uL Low 150-400 [facility] Comment on above: Result Comment: RESU LTS CHECKED Performed By: #### 5 0608 #### [facility] [address] [place] [address], [facility] RBC (Bld) [#/Vol] 3.10 10*6/uL Low 4.20-5.70 [facility] Comment on above: Performed By: #### 5 0608 #### [facility] [address] [place] [address], [facility] WBC (Bld) [#/Vol] 7.29 10*3/uL Normal 4.00-10.60 [facility] Comment on above: Performed By: #### 5 0608 #### [facility] [address] [place] [address], [facility] Erythrocyte distribution width (RBC) [Ratio] 13.7 % Normal 11.5-15.0 [facility] Comment on above: Order Comment: No: D o not add to previous draw Performed By: #### 5 0608 #### [facility] [address] [place] [address], [facility] Hematocrit (Bld) [Volume fraction] 39.5 % Normal 39.0-50.0 [facility] Comment on above: Order Comment: No: D o not add to previous draw Performed By: #### 5 0608 #### [facility] [address] [place] [address], [facility] Hemoglobin (Bld) [Mass/Vol] 13.4 g/dL Normal 13.0-17.0 [facility] Comment on above: Order Comment: No: D o not add to previous draw Performed By: #### 5 0608 #### [facility] [address] [place] [address], [facility] IMM PLATELET FRAC 6.1 % Normal 0.8-6.3 [facility] Comment on above: Order Comment: No: D o not add to previous draw Performed By: #### 5 0608 #### [facility] [address] [place] [address], [facility] MCH (RBC) [Entitic mass] 30.9 pg Normal 27.0-33.0 [facility] Comment on above: Order Comment: No: D o not add to previous draw Performed By: #### 5 0608 #### [facility] [address] [place] [address], [facility] MCHC (RBC) [Mass/Vol] 33.9 g/dL Normal 32.0-35.0 [facility] Comment on above: Order Comment: No: D o not add to previous draw Performed By: #### 5 0608 #### [facility] [address] [place] [address], [facility] MCV (RBC) [Entitic vol] 91.2 fL Normal 82.0-98.0 T anyi [facility] Comment on above: Order Comment: No: D o not add to previous draw Performed By: #### 5 0608 #### [facility] [address] Nucleated RBC/100 WBC (Bld) [Ratio] 0 % Normal 0-0 [facility] Comment on above: Order Comment: No: D o not add to previous draw Performed By: #### 5 0608 #### [facility] [address] [facility] [address], [facility] PLAT CNT 120 10*3/uL Low 150-400 [facility] Comment on above: Order Comment: No: D o not add to previous draw Performed By: #### 5 0608 #### [facility] [address] [place] [address], [facility] RBC (Bld) [#/Vol] 4.33 10*6/uL Normal 4.20-5.70 [facility] Comment on above: Order Comment: No: D o not add to previous draw Performed By: #### 5 0608 #### [facility] [address] [facility] [address], [facility] WBC (Bld) [#/Vol] 4.21 10*3/uL Normal 4.00-10.60 [facility] Comment on above: Order Comment: No: D o not add to previous draw Performed By: #### 5 0608 #### [facility] [address] [facility]. [address] CBC W/DIFFon 02-20-2022 ABS IMM GRANS 0.0 10*3/uL Normal 0.0-0.2 [facility] Comment on above: Order Comment: No: D o not add to previous draw Performed By: #### 5 0608 #### [facility] [address] [place] [address], [facility] ABS NEUTROPHILS 9.6 10*3/uL High 1.6-7.6 [facility] Comment on above: Order Comment: No: D o not add to previous draw Performed By: #### 5 0608 #### [facility] [address] [place] [address], [facility] Basophils (Bld) [#/Vol] 0.0 10*3/uL Normal 0.0-0.2 [facility] Comment on above: Order Comment: No: D o not add to previous draw Performed By: #### 5 0608 #### [facility] [address] [place] [address], [facility] Basophils/100 WBC (Bld) 0.2 % Normal 0.0-1.0 [facility] Comment on above: Order Comment: No: D o not add to previous draw Performed By: #### 5 0608 #### [facility] [address] [place] [id number], [facility] Eosinophils (Bld) [#/Vol] 0.0 10*3/uL Normal 0.0-0.5 [facility] Comment on above: Order Comment: No: D o not add to previous draw Performed By: #### 5 0608 #### [facility] [address] [place] [address], [facility] Eosinophils/100 WBC (Bld) 0.1 % Normal 0.0-6.0 [facility] Comment on above: Order Comment: No: D o not add to previous draw Performed By: #### 5 0608 #### [facility] [address] [facility] [place] [address], [facility] Erythrocyte distribution width (RBC) [Ratio] 14.1 % Normal 11.5-15.0 [facility] Comment on above: Order Comment: No: D o not add to previous draw Performed By: #### 5 0608 #### [facility] [address] [place] [address], [facility] Hematocrit (Bld) [Volume fraction] 35.5 % Low 39.0-50.0 [facility] Comment on above: Order Comment: No: D o not add to previous draw Performed By: #### 5 0608 #### [facility] [address] [facility] [place] [address], [facility] Hemoglobin (Bld) [Mass/Vol] 11.9 g/dL Low 13.0-17.0 [facility] Comment on above: Order Comment: No: D o not add to previous draw Performed By: #### 5 0608 #### [facility] [address] [place] [address], [facility] IMM PLATELET FRAC 5.8 % Normal 0.8-6.3 [facility] Comment on above: Order Comment: No: D o not add to previous draw Performed By: #### 5 0608 #### [facility] [address] [place] [address], [facility] IMMATURE GRANS 0.3 % Normal 0.0-1.0 [facility] Comment on above: Order Comment: No: D o not add to previous draw Performed By: #### 5 0608 #### [facility] [address] [place] [address], [facility] Lymphocytes (Bld) [#/Vol] 0.3 10*3/uL Low 1.2-4.0 [facility] Comment on above: Order Comment: No: D o not add to previous draw Performed By: #### 5 0608 #### [facility] [address] [place] [address], [facility] Lymphocytes/100 WBC (Bld) 3.1 % Low 20.0-45.0 [facility] Comment on above: Order Comment: No: D o not add to previous draw Performed By: #### 5 0608 #### [facility] [address] [place] [address], [facility] MCH (RBC) [Entitic mass] 30.6 pg Normal 27.0-33.0 [facility] Comment on above: Order Comment: No: D o not add to previous draw Performed By: #### 5 0608 #### [facility] [address] MCHC (RBC) [Mass/Vol] 33.5 g/dL Normal 32.0-35.0 [facility] Comment on above: Order Comment: No: D o not add to previous draw Performed By: #### 5 0608 #### [facility] [address] [place] [id number], [facility] MCV (RBC) [Entitic vol] 91.3 fL Normal 82.0-98.0 T anyi [facility] Comment on above: Order Comment: No: D o not add to previous draw Performed By: #### 5 0608 #### [facility] [address] [facility] [place] [address], [facility] Monocytes (Bld) [#/Vol] 0.8 10*3/uL Normal 0.1-1.0 [facility] Comment on above: Order Comment: No: D o not add to previous draw Performed By: #### 5 0608 #### [facility] [address] [facility] [place] [address], [facility] MONOS 7.6 % Normal 5.0-12.0 [facility] Comment on above: Order Comment: No: D o not add to previous draw Performed By: #### 5 0608 #### [facility] [address] [facility] [place] [address], [facility] Neutrophils/100 WBC (Bld) 88.7 % High 40.0-72.0 [facility] Comment on above: Order Comment: No: D o not add to previous draw Performed By: #### 5 0608 #### [facility] [address] [place] [address], [facility] Nucleated RBC/100 WBC (Bld) [Ratio] 0 % Normal 0-0 [facility] Comment on above: Order Comment: No: D o not add to previous draw Performed By: #### 5 0608 #### [facility] [address] [place] [address], [facility] PLAT CNT 109 10*3/uL Low 150-400 [facility] Comment on above: Order Comment: No: D o not add to previous draw Performed By: #### 5 0608 #### [facility] [address] [place] [address], [facility] RBC (Bld) [#/Vol] 3.89 10*6/uL Low 4.20-5.70 [facility] Comment on above: Order Comment: No: D o not add to previous draw Performed By: #### 5 0608 #### [facility] [address] [place] [address], [facility] WBC (Bld) [#/Vol] 10.80 10*3/uL High 4.00-10.60 [facility] Comment on above: Order Comment: No: D o not add to previous draw Performed By: #### 5 0608 #### [facility] [address] COOXIMETRYon 02-20-2022 COHB 2 % Normal [facility] Comment on above: Performed By: #### 3 0739 #### [facility] [address] [facility]. [address] METHB 1 % Normal [facility] Comment on above: Performed By: #### 3 0739 #### [facility] [address] Oxygen saturation in Blood 60.3 % Low 65.0-75.0 [facility] Comment on above: Performed By: #### 3 0739 #### [facility] [address] [place] [address], [facility] THB 12.0 g/dL Normal [facility] Comment on above: Performed By: #### 3 0739 #### [facility] [address] [facility] [place] [address], [facility] FIBRINOGENon 02-20-2022 FIBRINOGEN 220 mg/dL Normal 150-425 [facility] Comment on above: Performed By: #### 5 6101, 25017, 09866 ####[facility] [place] [address], [facility] LACTATE BLOODon 02-20-2022 Lactate [Moles/Vol] 0.9 mmol/L Normal .5-2.2 [facility] Comment on above: Order Comment: Evalu ate for Pneumothorax Performed By: #### 1 0054 ####[facility] [place] [address], [place] Lactate [Moles/Vol] 1.1 mmol/L Normal .5-2.2 [facility] Comment on above: Performed By: #### 1 0054 ####[facility] [place] [address], [place] LIVER BATTERYon 02-20-2022 Albumin [Mass/Vol] 3.5 g/dL Normal 3.5-5.7 [facility] Comment on above: Order Comment: evalu ate for Effusion Performed By: #### 1 0070, 19427, 46648, 10661, 38910 ####[facility] [place] [address], [place] ALKALINE PHOSPH 48 IU/L Normal 34-104 [facility] Comment on above: Order Comment: evalu ate for Effusion Performed By: #### 1 0070, 12943, 99035, 97120, 35336 ####[facility] [place] [address], [place] ALT [Catalytic activity/Vol] 12 U/L Normal 7-52 [facility] Comment on above: Order Comment: evalu ate for Effusion Performed By: #### 1 0070, 02810, 30812, 32399, 37291 ####[facility] [place] [address], [place] AST [Catalytic activity/Vol] 19 U/L Normal 13-39 [facility] Comment on above: Order Comment: evalu ate for Effusion Performed By: #### 1 0070, 50548, 38762, 72998, 57475 ####[facility] [place] [address], [facility] Bilirubin [Mass/Vol] 1.0 mg/dL Normal 0.3-1.0 [facility] Comment on above: Order Comment: evalu ate for Effusion Performed By: #### 1 0070, 20824, 87886, 08411, 08715 ####[facility] [place] [address], [facility] Bilirubin.direct [Mass/Vol] 0.3 mg/dL High 0.0-0.2 [facility] Comment on above: Order Comment: evalu ate for Effusion Performed By: #### 1 0070, 56109, 49345, 66258, 80295 ####[facility] [place] [address], [facility] Protein [Mass/Vol] 5.1 g/dL Low 6.0-8.3 [facility] Comment on above: Order Comment: evalu ate for Effusion Performed By: #### 1 0070, [id number], [id number], 36329, [id number] ####[facility] [place] [address], [place] MAGNESIUM BLOODon 02-20-2022 Magnesium [Mass/Vol] 2.2 mg/dL Normal 1.9-2.7 [facility] Comment on above: Order Comment: Evalu ate for Pneumothorax Performed By: #### 1 0070, 17241, [id number], 39535, 18653 ####[facility] [place] [address], [place] Magnesium [Mass/Vol] 2.5 mg/dL Normal 1.9-2.7 [facility] Comment on above: Performed By: #### 1 0070, [id number] ####[facility] [place] [address], [place] Magnesium [Mass/Vol] 1.9 mg/dL Normal 1.9-2.7 [facility] Comment on above: Order Comment: Check Chest Tube Position, ON ARRIVAL TO CVU Performed By: #### 0 0071, 69340, 17017 ####[facility] [place] [address], [facility] PERFUSION BLOOD PANELon 083 BASE EXCESS 0.0 mmol/L Normal -2.0-3.0 [facility] Comment on above: Performed By: #### 3 1595 #### [facility] [address] [place] [address], [facility] Glucose [Mass/Vol] 106 mg/dL High 70-105 [facility] Comment on above: Performed By: #### 3 1595 #### [facility] [address] [place] [address], [facility] Hematocrit (Bld) [Volume fraction] 28 % Low 38-51 [facility] Comment on above: Performed By: #### 3 1595 #### [facility] [address] [place] [address], [facility] Hemoglobin (Bld) [Mass/Vol] 9.5 g/dL Low 12.0-17.0 [facility] Comment on above: Performed By: #### 3 1595 #### [facility] [address] [place] [address], [facility] IONIZED CALCIUM 1.23 mmol/L Normal 1.12-1.32 [facility] Comment on above: Performed By: #### 3 1595 #### [facility] [address] [place] [address], [facility] Oxygen (Bld) [Partial pressure] 425.0 mm[Hg] High 80.0-105.0 [facility] Comment on above: Performed By: #### 3 1595 #### [facility] [address] [place] [address], [facility] PCO2 46.5 mmHg High 35.0-45.0 [facility] Comment on above: Performed By: #### 3 1595 #### [facility] [address] [place] [address], [facility] pH (Bld) 7.36 [pH] Normal 7.35-7.45 [facility] Comment on above: Performed By: #### 3 1595 #### [facility] [address] [place] [address], [place] Potassium [Moles/Vol] 4.0 mmol/L Normal 3.5-4.9 [facility] Comment on above: Performed By: #### 3 1595 #### [facility] [address] [place] [address], [place] Sodium [Moles/Vol] 143 mmol/L Normal 138-146 [facility] Comment on above: Performed By: #### 3 1595 #### [facility] [address] [place] [address], [facility] BASE EXCESS 1.0 mmol/L Normal -2.0-3.0 [facility] Comment on above: Performed By: #### 8 5499 #### [facility] [address] [place] [address], [place] Glucose [Mass/Vol] 112 mg/dL High 70-105 [facility] Comment on above: Performed By: #### 8 5499 #### [facility] [address] [place] [address], [place] Hematocrit (Bld) [Volume fraction] 26 % Low 38-51 [facility] Comment on above: Performed By: #### 8 5499 #### [facility] [address] [place] [address], [place] Hemoglobin (Bld) [Mass/Vol] 8.8 g/dL Low 12.0-17.0 [facility] Comment on above: Performed By: #### 8 5499 #### [facility] [address] [place] [address], [facility] IONIZED CALCIUM 1.30 mmol/L Normal 1.12-1.32 [facility] Comment on above: Performed By: #### 8 5499 #### [facility] [address] [place] [address], [facility] Oxygen (Bld) [Partial pressure] 390.0 mm[Hg] High 80.0-105.0 [facility] Comment on above: Performed By: #### 8 5499 #### [facility] [address] [facility] [place] [address], [facility] PCO2 42.1 mmHg Normal 35.0-45.0 [facility] Comment on above: Performed By: #### 8 5499 #### [facility] [address] [place] [place] [address], [facility] pH (Bld) 7.39 [pH] Normal 7.35-7.45 [facility] Comment on above: Performed By: #### 8 5499 #### [facility] [address] [place] [id number], [facility] Potassium [Moles/Vol] 4.1 mmol/L Normal 3.5-4.9 [facility] Comment on above: Performed By: #### 8 5499 #### [facility] [address] [place] [address], [facility] Sodium [Moles/Vol] 143 mmol/L Normal 138-146 [facility] Comment on above: Performed By: #### 8 5499 #### [facility] [address] [place] [place] [address], [facility] BASE EXCESS 2.0 mmol/L Normal -2.0-3.0 [facility] Comment on above: Performed By: #### 8 5499 #### [facility] [address] [place] [address], [facility] Glucose [Mass/Vol] 119 mg/dL High 70-105 [facility] Comment on above: Performed By: #### 8 5499 #### [facility] [address] [place] [address], [facility] Hematocrit (Bld) [Volume fraction] 28 % Low 38-51 [facility] Comment on above: Performed By: #### 8 5499 #### [facility] [address] [place] [address], [facility] Hemoglobin (Bld) [Mass/Vol] 9.5 g/dL Low 12.0-17.0 [facility] Comment on above: Performed By: #### 8 5499 #### [facility] [address] [place] [address], [facility] IONIZED CALCIUM 1.11 mmol/L Low 1.12-1.32 [facility] Comment on above: Performed By: #### 8 5499 #### [facility] [address] [place] [address], [facility] Oxygen (Bld) [Partial pressure] 460.0 mm[Hg] High 80.0-105.0 [facility] Comment on above: Performed By: #### 8 5499 #### [facility] [address] [place] [address], [facility] PCO2 40.0 mmHg Normal 35.0-45.0 [facility] Comment on above: Performed By: #### 8 5499 #### [facility] [address] [place] [address], [facility] pH (Bld) 7.43 [pH] Normal 7.35-7.45 [facility] Comment on above: Performed By: #### 8 5499 #### [facility] [address] [place] [address], [facility] Potassium [Moles/Vol] 4.6 mmol/L Normal 3.5-4.9 [facility] Comment on above: Performed By: #### 8 5499 #### [facility] [address] [place] [address], [facility] Sodium [Moles/Vol] 141 mmol/L Normal 138-146 [facility] Comment on above: Performed By: #### 8 5499 #### [facility] [address] [place] [address], [facility] BASE EXCESS 2.0 mmol/L Normal -2.0-3.0 [facility] Comment on above: Performed By: #### 8 5499 #### [facility] [address] [facility] [place] [address], [facility] Glucose [Mass/Vol] 112 mg/dL High 70-105 [facility] Comment on above: Performed By: #### 8 5499 #### [facility] [address] Hematocrit (Bld) [Volume fraction] 26 % Low 38-51 [facility] Comment on above: Performed By: #### 8 5499 #### [facility] [address] [place] [address], [facility] Hemoglobin (Bld) [Mass/Vol] 8.8 g/dL Low 12.0-17.0 [facility] Comment on above: Performed By: #### 8 5499 #### [facility] [address] [place] [address], [facility] IONIZED CALCIUM 1.09 mmol/L Low 1.12-1.32 [facility] Comment on above: Performed By: #### 8 5499 #### [facility] [address] [place] [address], [facility] Oxygen (Bld) [Partial pressure] 403.0 mm[Hg] High 80.0-105.0 [facility] Comment on above: Performed By: #### 8 5499 #### [facility] [address] [place] [address], [place] PCO2 40.8 mmHg Normal 35.0-45.0 [facility] Comment on above: Performed By: #### 8 5499 #### [facility] [address] [place] [address], [place] pH (Bld) 7.43 [pH] Normal 7.35-7.45 [facility] Comment on above: Performed By: #### 8 5499 #### [facility] [address] [place] [address], [place] Potassium [Moles/Vol] 4.8 mmol/L Normal 3.5-4.9 [facility] Comment on above: Performed By: #### 8 5499 #### [facility] [address] [place] [address], [place] Sodium [Moles/Vol] 141 mmol/L Normal 138-146 [facility] Comment on above: Performed By: #### 8 5499 #### [facility] [address] [place] [address], [place] BASE EXCESS 4.0 mmol/L High -2.0-3.0 [facility] Comment on above: Performed By: #### 8 5499 #### [facility] [address] [place] [address], [place] Glucose [Mass/Vol] 102 mg/dL Normal 70-105 [facility] Comment on above: Performed By: #### 8 5499 #### [facility] [address] [place] [address], [place] Hematocrit (Bld) [Volume fraction] 26 % Low 38-51 [facility] Comment on above: Performed By: #### 8 5499 #### [facility] [address] [place] [address], [place] Hemoglobin (Bld) [Mass/Vol] 8.8 g/dL Low 12.0-17.0 [facility] Comment on above: Performed By: #### 8 5499 #### [facility] [address] [place] [address], [facility] IONIZED CALCIUM 1.04 mmol/L Low 1.12-1.32 [facility] Comment on above: Performed By: #### 8 5499 #### [facility] [address] [place] [address], [facility] Oxygen (Bld) [Partial pressure] 526.0 mm[Hg] High 80.0-105.0 [facility] Comment on above: Performed By: #### 8 5499 #### [facility] [address] [facility] [place] [address], [facility] PCO2 40.3 mmHg Normal 35.0-45.0 [facility] Comment on above: Performed By: #### 8 5499 #### [facility] [address] [place] [address], [facility] pH (Bld) 7.46 [pH] High 7.35-7.45 [facility] Comment on above: Performed By: #### 8 5499 #### [facility] [address] [facility] [place] [address], [facility] Potassium [Moles/Vol] 4.8 mmol/L Normal 3.5-4.9 [facility] Comment on above: Performed By: #### 8 5499 #### [facility] [address] [place] [address], [facility] Sodium [Moles/Vol] 140 mmol/L Normal 138-146 [facility] Comment on above: Performed By: #### 8 5499 #### [facility] [address] [facility] [place] [address], [facility] BASE EXCESS 0.0 mmol/L Normal -2.0-3.0 [facility] Comment on above: Performed By: #### 8 5499 #### [facility] [address] [place] [address], [facility] Glucose [Mass/Vol] 97 mg/dL Normal 70-105 [facility] Comment on above: Performed By: #### 8 5499 #### [facility] [address] [place] [address], [facility] Hematocrit (Bld) [Volume fraction] 27 % Low 38-51 [facility] Comment on above: Performed By: #### 8 5499 #### [facility] [address] [place] [address], [facility] Hemoglobin (Bld) [Mass/Vol] 9.2 g/dL Low 12.0-17.0 [facility] Comment on above: Performed By: #### 8 5499 #### [facility] [address] [place] [address], [facility] IONIZED CALCIUM 1.03 mmol/L Low 1.12-1.32 [facility] Comment on above: Performed By: #### 8 5499 #### [facility] [address] [place] [address], [facility] Oxygen (Bld) [Partial pressure] 49.0 mm[Hg] Normal [facility] Comment on above: Performed By: #### 8 5499 #### [facility] [address] [place] [address], [facility] PCO2 44.2 mmHg Normal 41.0-51.0 [facility] Comment on above: Performed By: #### 8 5499 #### [facility] [address] [place] [address], [place] pH (Bld) 7.37 [pH] Normal 7.31-7.41 [facility] Comment on above: Performed By: #### 8 5499 #### [facility] [address] [place] [address], [place] Potassium [Moles/Vol] 4.5 mmol/L Normal 3.5-4.9 [facility] Comment on above: Performed By: #### 8 5499 #### [facility] [address] [place] [address], [facility] Sodium [Moles/Vol] 141 mmol/L Normal 138-146 [facility] Comment on above: Performed By: #### 8 5499 #### [facility] [address] [place] [address], [facility] BASE EXCESS -3.0 mmol/L Low -2.0-3.0 [facility] Comment on above: Performed By: #### 8 5499 #### [facility] [address] [place] [address], [facility] Glucose [Mass/Vol] 115 mg/dL High 70-105 [facility] Comment on above: Performed By: #### 8 5499 #### [facility] [address] [place] [address], [facility] Hematocrit (Bld) [Volume fraction] 34 % Low 38-51 [facility] Comment on above: Performed By: #### 8 5499 #### [facility] [address] [place] [address], [facility] Hemoglobin (Bld) [Mass/Vol] 11.6 g/dL Low 12.0-17.0 [facility] Comment on above: Performed By: #### 8 5499 #### [facility] [address] [place] [address], [facility] IONIZED CALCIUM 1.27 mmol/L Normal 1.12-1.32 [facility] Comment on above: Performed By: #### 8 5499 #### [facility] [address] [place] [id number], [facility] Oxygen (Bld) [Partial pressure] 249.0 mm[Hg] High 80.0-105.0 [facility] Comment on above: Performed By: #### 8 5499 #### [facility] [address] [place] [address], [facility] PCO2 51.3 mmHg High 35.0-45.0 [facility] Comment on above: Performed By: #### 8 5499 #### [facility] [address] [place] [address], [facility] pH (Bld) 7.29 [pH] Low 7.35-7.45 [facility] Comment on above: Performed By: #### 8 5499 #### [facility] [address] [place] [address], [place] Potassium [Moles/Vol] 3.9 mmol/L Normal 3.5-4.9 [facility] Comment on above: Performed By: #### 8 5499 #### [facility] [address] [place] [address], [place] Sodium [Moles/Vol] 142 mmol/L Normal 138-146 [facility] Comment on above: Performed By: #### 8 5499 #### [facility] [address] [place] [address], [place] BASE EXCESS -1.0 mmol/L Normal -2.0-3.0 [facility] Comment on above: Performed By: #### 3 1595 #### [facility] [address] [place] [address], [place] Glucose [Mass/Vol] 104 mg/dL Normal 70-105 [facility] Comment on above: Performed By: #### 3 1595 #### [facility] [address] [place] [address], [place] Hematocrit (Bld) [Volume fraction] 37 % Low 38-51 [facility] Comment on above: Performed By: #### 3 1595 #### [facility] [address] [place] [address], [place] Hemoglobin (Bld) [Mass/Vol] 12.6 g/dL Normal 12.0-17.0 [facility] Comment on above: Performed By: #### 3 1595 #### [facility] [address] [address], [facility] IONIZED CALCIUM 1.34 mmol/L High 1.12-1.32 [facility] Comment on above: Performed By: #### 3 1595 #### [facility] [address] [place] [address], [facility] Oxygen (Bld) [Partial pressure] 187.0 mm[Hg] High 80.0-105.0 [facility] Comment on above: Performed By: #### 3 1595 #### [facility] [address] [place] [address], [facility] PCO2 45.2 mmHg High 35.0-45.0 [facility] Comment on above: Performed By: #### 3 1595 #### [facility] [address] [place] [address], [facility] pH (Bld) 7.35 [pH] Normal 7.35-7.45 [facility] Comment on above: Performed By: #### 3 1595 #### [facility] [address] [place] [address], [facility] Potassium [Moles/Vol] 4.2 mmol/L Normal 3.5-4.9 [facility] Comment on above: Performed By: #### 3 1595 #### [facility] [address] [place] [address], [facility] Sodium [Moles/Vol] 141 mmol/L Normal 138-146 [facility] Comment on above: Performed By: #### 3 1595 #### [facility] [address] [place] [address], [facility] PHOSPHORUS BLOODon 2 Phosphate [Mass/Vol] 4.1 mg/dL Normal 2.5-5.0 [facility] Comment on above: Order Comment: Evalu ate for Pneumothorax Performed By: #### 1 0070, 21045, 71371, 31269, 80218 ####[facility] [place] [address], [facility] Phosphate [Mass/Vol] 3.9 mg/dL Normal 2.5-5.0 [facility] Comment on above: Order Comment: Check Chest Tube Position, ON ARRIVAL TO CVU Performed By: #### 0 0071, 53497, 08893 ####[facility] [place] [address], [facility] PLATELET APHERESIS 1 UNITon 02-20-2022 PRODUCT CODE 1 [id number] Normal [facility] Comment on above: Performed By: #### 3 2043 #### [facility] [address] [facility] [place] [address], [facility] PRODUCT STATUS 1 PT Normal [facility] Comment on above: Result Comment: Resu lt changed by IF on 02/20/2022 11:57. The previous value was XM. Result changed by IF on 02/21/2022 00:30. The previous value was IS. Performed By: #### 3 2043 #### [facility] [address] [place] [address], [facility] UNIT ABO 1 A Normal [facility] Comment on above: Performed By: #### 3 2043 #### [facility] [address] [place] [place] [address], [facility] UNIT ID 1 [id number] Normal [facility] Comment on above: Performed By: #### 3 2043 #### [facility] [address] [place] [address], [facility] UNIT RH 1 Positive Normal [facility] Comment on above: Performed By: #### 3 2043 #### [facility] [address] [place] [address], [facility] PRODUCT CODE 1 [id number] Normal [facility] Comment on above: Performed By: #### 3 2043 #### [facility] [address] [place] [address], [facility] PRODUCT STATUS 1 RE Normal [facility] Comment on above: Result Comment: Resu lt changed by IF on 02/21/2022 08:31. The previous value was XM. Performed By: #### 3 4 #### [facility] [address] [place] [address], [place] UNIT ABO 1 A Normal [facility] Comment on above: Performed By: #### 3 2043 #### [facility] [address] [place] [address], [facility] UNIT ID 1 [id number] Normal [facility] Comment on above: Performed By: #### 3 4 #### [facility] [address] [place] [address], [place] UNIT RH 1 Positive Normal [facility] Comment on above: Performed By: #### 3 4 #### [facility] [address] [place] [address], [place] PLATELET FUNCTION SCREENon 0 02-20-2022 COLLAGEN/ADP 101 sec Normal 56-110 [facility] Comment on above: Result Comment: This pattern [...] be warranted. Performed By: #### 8 4505 ####[facility] [place] [address], [place] COLLAGEN/EPINEPHRINE 174 sec High 82-159 [facility] Comment on above: Performed By: #### 8 4505 ####[facility] [place] [address], [place] POC GLUCOSE LABon 02-20-2022 Glucose [Mass/Vol] 141 mg/dL High 70-100 [facility] Comment on above: Performed By: #### 8 5499 #### [facility] [address] [place] [address], [facility] Glucose [Mass/Vol] 122 mg/dL High 70-100 [facility] Comment on above: Performed By: #### 3 1595 #### [facility] [address] [place] [address], [facility] Glucose [Mass/Vol] 101 mg/dL High 70-100 [facility] Comment on above: Performed By: #### 3 1595 #### [facility] [address] [place], [place] [id number] [place] [address] POC SARS COV2 IDon 2 SARS-CoV-2 (COVID-19) RNA JJ+probe Ql (Unsp spec) Negative Normal NEGATIVE [facility] Comment on above: Result Comment: ID N [...] Accreditation. Performed By: #### 3 1595 #### [facility] [address] [place] [address], [facility] PORTABLE CHEST 1 VIEWon 01-23 PORTABLE CHEST [address] [facility] Department of Radiology [address] [place] [id number] ======== Patient Name: IGNACIO AMIN : 1945 Sex: M Age: Race: White Pt. Location: [address] [place] [address] Patient Status: I Ordered Date: 02/20/2022 12:30:00 [...] left Electronically signed: Quinten Nagel. Transcribed by: [email or web address], User Resident: Electronically Signed by: QUINTEN NAGEL @ 02/20/2022 03:53 PM Normal [facility] Comment on above: Order Comment: Check Chest Tube Position, ON ARRIVAL TO CVU PROTHROMBIN TIMEon INR Coag (PPP) [Relative time] 1.34 {INR} High 0.91-1.16 [facility] Comment on above: Order Comment: Check Chest Tube Position, ON ARRIVAL TO CVU Result Comment: ACCC P RECOMMENDED INR FOR WARFARIN THERAPY ------- CONDITION INR PROPHYLAXIS OF VENOUS THROMBOSIS 2-3 (HIGH-RISK SURGERY) TREATMENT OF VENOUS THROMBOSIS 2-3 TREATMENT OF PULMONARY EMBOLISM 2-3 PREVENTION OF SYSTEMIC EMBOLISM: 2-3 ACUTE MYOCARDIAL INFARCTION TISSUE HEART VALVES VALVULAR HEART DISEASE ATRIAL FIBRILLATION RECURRENT SYSTEMIC EMBOLISM MECHANICAL HEART VALVE 2.5-3.5 FROM: ORAL ANTICOAGULANTS. MECHANISM OF ACTION, CLINICAL EFFECTIVENESS, AND OPTIMAL THERAPEUTIC RANGE. CHEST 1995;108:231S-246S. Performed By: #### [id number] ####[facility] [facility] [address], [facility] [place] PT Coag (PPP) [Time] 16.4 s High 12.3-14.8 [facility] Comment on above: Order Comment: Check Chest Tube Position, ON ARRIVAL TO CVU Result Comment: ALL RESULTS MUST BE INTERPRETED WITH RESPECT TO BLOOD DRAWING ARTIFACT OR DILUTION ERROR OF ANTICOAGULANT AT THE TIME OF SAMPLING. Performed By: #### 5 6101, [id number] ####[facility] [place] [address], [facility] INR Coag (PPP) [Relative time] 1.72 {INR} High 0.91-1.16 [facility] Comment on above: Result Comment: [facility] P RECOMMENDED INR FOR WARFARIN THERAPY ------- CONDITION INR PROPHYLAXIS OF VENOUS THROMBOSIS 2-3 (HIGH-RISK SURGERY) TREATMENT OF VENOUS THROMBOSIS 2-3 TREATMENT OF PULMONARY EMBOLISM 2-3 PREVENTION OF SYSTEMIC EMBOLISM: 2-3 ACUTE MYOCARDIAL INFARCTION TISSUE HEART VALVES VALVULAR HEART DISEASE ATRIAL FIBRILLATION RECURRENT SYSTEMIC EMBOLISM MECHANICAL HEART VALVE 2.5-3.5 FROM: ORAL ANTICOAGULANTS. MECHANISM OF ACTION, CLINICAL EFFECTIVENESS, AND OPTIMAL THERAPEUTIC RANGE. CHEST 1995;108:231S-246S. Performed By: #### 5 6101, [id number], [id number] ####[facility] [place] [address], [facility] PT Coag (PPP) [Time] 19.9 s High 12.3-14.8 [facility] Comment on above: Result Comment: ALL RESULTS MUST BE INTERPRETED WITH RESPECT TO BLOOD DRAWING ARTIFACT OR DILUTION ERROR OF ANTICOAGULANT AT THE TIME OF SAMPLING. Performed By: #### 5 6101, 89640, 27255 ####[facility] [place] [address], [facility] INR Coag (PPP) [Relative time] 1.07 {INR} Normal 0.91-1.16 [facility] Comment on above: Order Comment: Check Chest Tube Position, ON ARRIVAL TO CVU Result Comment: [facility] P RECOMMENDED INR FOR WARFARIN THERAPY ------- CONDITION INR PROPHYLAXIS OF VENOUS THROMBOSIS 2-3 (HIGH-RISK SURGERY) TREATMENT OF VENOUS THROMBOSIS 2-3 TREATMENT OF PULMONARY EMBOLISM 2-3 PREVENTION OF SYSTEMIC EMBOLISM: 2-3 ACUTE MYOCARDIAL INFARCTION TISSUE HEART VALVES VALVULAR HEART DISEASE ATRIAL FIBRILLATION RECURRENT SYSTEMIC EMBOLISM MECHANICAL HEART VALVE 2.5-3.5 FROM: ORAL ANTICOAGULANTS. MECHANISM OF ACTION, CLINICAL EFFECTIVENESS, AND OPTIMAL THERAPEUTIC RANGE. CHEST 1995;108:231S-246S. Performed By: #### 3 0477, 86025, 42961 ####[facility] PT Coag (PPP) [Time] 13.9 s Normal 12.3-14.8 [facility] Comment on above: Order Comment: Check Chest Tube Position, ON ARRIVAL TO CVU Result Comment: ALL RESULTS MUST BE INTERPRETED WITH RESPECT TO BLOOD DRAWING ARTIFACT OR DILUTION ERROR OF ANTICOAGULANT AT THE TIME OF SAMPLING. Performed By: #### 3 0477, 75916, 04227 ####[place] [id number] [address] TROPONIN-Ion 02-20-2022 Troponin I.cardiac [Mass/Vol] 1.58 ng/mL Critically high 0.00-0.04 [facility] Comment on above: Order Comment: Evalu ate for Pneumothorax Result Comment: M-TR OPONIN INITIAL CRITICAL HIGH; RESPUN AND RETESTED M-CRITICAL RESULT(S) REVIEWED, CALLED TO AND READ BACK BY VINH MARADIAGA RN ON 02/20/2022 AT 17:27 REFERENCE RANGES: 0.00 - 0.04 ng/ml NORMAL 0.05 - 0.50 ng/ml INDETERMINATE > 0.50 ng/ml CONSISTENT WITH AN M.I. Performed By: #### 1 0070, 54909, 06666, 77766, 42822 ####[place] [address] [address] UFH HEPARIN ASSAYon 02-21-20 UNFRACTIONATED HEPARIN 0.44 IU/mL Normal 0.30-0.70 [facility] Comment on above: Result Comment: Andria roxaban and Apixaban will interfere with the anti Xa assay used to monitor UFH and LMWH. Performed By: #### 3 0477, 01518, 12818 ####[facility] CBC COMPLETE BLOOD COUNTon 0 02-19-2022 Erythrocyte distribution width (RBC) [Ratio] 13.7 % Normal 11.5-15.0 [facility] Comment on above: Order Comment: No: D o not add to previous draw Performed By: #### 5 0608 #### [facility] [address] Hematocrit (Bld) [Volume fraction] 37.9 % Low 39.0-50.0 [facility] Comment on above: Order Comment: No: D o not add to previous draw Performed By: #### 5 0608 #### [facility] [address] Hemoglobin (Bld) [Mass/Vol] 13.0 g/dL Normal 13.0-17.0 [facility] Comment on above: Order Comment: No: D o not add to previous draw Performed By: #### 5 0608 #### [facility] [address] IMM PLATELET FRAC 5.4 % Normal 0.8-6.3 [facility] Comment on above: Order Comment: No: D o not add to previous draw Performed By: #### 5 0608 #### [facility] [address] MCH (RBC) [Entitic mass] 31.2 pg Normal 27.0-33.0 [facility] Comment on above: Order Comment: No: D o not add to previous draw Performed By: #### 5 0608 #### [facility] [address] [place] [address], [facility] MCHC (RBC) [Mass/Vol] 34.3 g/dL Normal 32.0-35.0 [facility] Comment on above: Order Comment: No: D o not add to previous draw Performed By: #### 5 0608 #### [facility] [address] [place] [address], [facility] MCV (RBC) [Entitic vol] 90.9 fL Normal 82.0-98.0 [facility] Comment on above: Order Comment: No: D o not add to previous draw Performed By: #### 5 0608 #### [facility] [address] [place] [address], [facility] Nucleated RBC/100 WBC (Bld) [Ratio] 0 % Normal 0-0 [facility] Comment on above: Order Comment: No: D o not add to previous draw Performed By: #### 5 0608 #### [facility] [address] [place] [address], [facility] PLAT CNT 123 10*3/uL Low 150-400 [facility] Comment on above: Order Comment: No: D o not add to previous draw Performed By: #### 5 0608 #### [facility] [address] [place] [address], [facility] RBC (Bld) [#/Vol] 4.17 10*6/uL Low 4.20-5.70 [facility] Comment on above: Order Comment: No: D o not add to previous draw Performed By: #### 5 0608 #### [facility] [address] [place] [address], [facility] WBC (Bld) [#/Vol] 4.86 10*3/uL Normal 4.00-10.60 [facility] Comment on above: Order Comment: No: D o not add to previous draw Performed By: #### 5 0608 #### [facility] [address] [place] [address], [facility] RBC'S 4 UNITSon 02-19-2022 CROSSMATCH INTERP 1 COMP Normal [facility] Comment on above: Order Comment: Check Chest Tube Position, ON ARRIVAL TO CVU Performed By: #### 8 6004 ####[facility] [place] [address], [place] CROSSMATCH INTERP 2 COMP Normal [facility] Comment on above: Order Comment: Check Chest Tube Position, ON ARRIVAL TO CVU Performed By: #### 8 6004 ####[facility] [place] [address], [place] CROSSMATCH INTERP 3 COMP Normal [facility] Comment on above: Order Comment: Check Chest Tube Position, ON ARRIVAL TO CVU Performed By: #### 8 6004 ####[facility] [place] [address], [place] CROSSMATCH INTERP 4 COMP Normal [facility] Comment on above: Order Comment: Check Chest Tube Position, ON ARRIVAL TO CVU Performed By: #### 8 6004 ####[facility] [place] [address], [place] PRODUCT CODE 1 E0685 Normal [facility] Comment on above: Order Comment: Check Chest Tube Position, ON ARRIVAL TO CVU Performed By: #### 8 6004 ####[facility] [place] [address], [place] PRODUCT CODE 2 E0685 Normal [facility] Comment on above: Order Comment: Check Chest Tube Position, ON ARRIVAL TO CVU Performed By: #### 8 6004 ####[facility] [place] [address], [place] PRODUCT CODE 3 E0686 Normal [facility] Comment on above: Order Comment: Check Chest Tube Position, ON ARRIVAL TO CVU Performed By: #### 8 6004 ####[facility] PRODUCT CODE 4 E0336 Normal [facility] Comment on above: Order Comment: Check Chest Tube Position, ON ARRIVAL TO CVU Performed By: #### 8 6004 ####[facility] PRODUCT STATUS 1 PT Normal [facility] Comment on above: Order Comment: Check Chest [...] was IS. Performed By: #### 8 6004 ####[facility] [facility] PRODUCT STATUS 2 RE Normal [facility] Comment on above: Order Comment: Check Chest [...] was XX. Performed By: #### 8 6004 ####[facility] [facility].[address] PRODUCT STATUS 3 PT Normal [facility] Comment on above: Order Comment: Check Chest [...] was IS. Performed By: #### 8 6004 ####[facility] PRODUCT STATUS 4 RE Normal [facility] Comment on above: Order Comment: Check Chest [...] was XX. Performed By: #### 8 6004 ####[facility] UNIT ABO 1 O Normal [facility] Comment on above: Order Comment: Check Chest Tube Position, ON ARRIVAL TO CVU Performed By: #### 8 6004 ####[facility] UNIT ABO 2 O Normal [facility] Comment on above: Order Comment: Check Chest Tube Position, ON ARRIVAL TO CVU Performed By: #### 8 6004 ####[facility] UNIT ABO 3 O Normal [facility] Comment on above: Order Comment: Check Chest Tube Position, ON ARRIVAL TO CVU Performed By: #### 8 6004 ####[facility] [place] [address], [facility] UNIT ABO 4 O Normal [facility] Comment on above: Order Comment: Check Chest Tube Position, ON ARRIVAL TO CVU Performed By: #### 8 6004 ####[facility] UNIT ID 1 [id number] Normal [facility] Comment on above: Order Comment: Check Chest Tube Position, ON ARRIVAL TO CVU Performed By: #### 8 6004 ####[facility] UNIT ID 2 [id number] Normal [facility] Comment on above: Order Comment: Check Chest Tube Position, ON ARRIVAL TO CVU Performed By: #### 8 6004 ####[facility] UNIT ID 3 [id number] Normal [facility] Comment on above: Order Comment: Check Chest Tube Position, ON ARRIVAL TO CVU Performed By: #### 8 6004 ####[facility] UNIT ID 4 [id number] Normal [facility] Comment on above: Order Comment: Check Chest Tube Position, ON ARRIVAL TO CVU Performed By: #### 8 6004 ####[facility] UNIT RH 1 Positive Normal [facility] Comment on above: Order Comment: Check Chest Tube Position, ON ARRIVAL TO CVU Performed By: #### 8 6004 ####[facility] UNIT RH 2 Positive Normal [facility] Comment on above: Order Comment: Check Chest Tube Position, ON ARRIVAL TO CVU Performed By: #### 8 6004 ####[facility] [place] [address], [facility] UNIT RH 3 Positive Normal [facility] Comment on above: Order Comment: Check Chest Tube Position, ON ARRIVAL TO CVU Performed By: #### 8 6004 ####[facility] [place] [address], [facility] UNIT RH 4 Positive Normal [facility] Comment on above: Order Comment: Check Chest Tube Position, ON ARRIVAL TO CVU Performed By: #### 8 6004 ####[facility] [place] [address], [facility] TYPE AND SCREENon 02-19-2022 ABO INTERPRETATION O Normal [facility] Comment on above: Performed By: #### 3 2044 #### [facility] [address] [place] [address], [facility] RH INTERPRETATION Positive Normal [facility] Comment on above: Performed By: #### 3 4 #### [facility] [address] [place] [address], [facility] UFH HEPARIN ASSAYon 02-20-20 22 UNFRACTIONATED HEPARIN 0.73 IU/mL High 0.30-0.70 [facility] Comment on above: Result Comment: Hines roxaban and Apixaban will interfere with the anti Xa assay used to monitor UFH and LMWH. Performed By: #### 3 0477 ####[facility] [facility] [place] [address], [facility] UNFRACTIONATED HEPARIN 0.78 IU/mL High 0.30-0.70 [facility] Comment on above: Result Comment: Andria roxaban and Apixaban will interfere with the anti Xa assay used to monitor UFH and LMWH. Performed By: #### 3 0477 ####[facility] [place] [address], [facility] UNFRACTIONATED HEPARIN 0.76 IU/mL High 0.30-0.70 [facility] Comment on above: Result Comment: Andria roxaban and Apixaban will interfere with the anti Xa assay used to monitor UFH and LMWH. Performed By: #### 3 0477 ####[facility] [place] [address], [facility] BASIC METABOLIC PANELon 08-2 Calcium [Mass/Vol] 9.1 mg/dL Normal 8.6-10.3 [facility] Comment on above: Order Comment: Evalu ate for Pneumothorax Performed By: #### 1 0, 24139 ####[facility] [place] [address], [facility] Chloride [Moles/Vol] 109 mmol/L High 98-107 [facility] Comment on above: Order Comment: Evalu ate for Pneumothorax Performed By: #### 1 69, 53788 ####[facility] [place] [address], [facility] CO2 [Moles/Vol] 27 mmol/L Normal 21-31 [facility] Comment on above: Order Comment: Evalu ate for Pneumothorax Performed By: #### 1 69, 25509 ####[facility] [facility] [place] [address], [facility] Creatinine [Mass/Vol] 0.86 mg/dL Normal 0.70-1.30 [facility] Comment on above: Order Comment: Evalu ate for Pneumothorax Performed By: #### 1 69, 07889 ####[facility] [place] [address], [facility] GFR/1.73 sq M.predicted among non-blacks MDRD (S/P/Bld) [Vol rate/Area] mL/min/{1.73_m2} Normal >60 [facility] Comment on above: Order Comment: Evalu ate for Pneumothorax Result Comment: [facility]'s estimated glomerular filtration rate (eGFR) will no [...] of individuals. Performed By: #### 1 69, 53833 ####[facility] [address], [facility] Glucose [Mass/Vol] 92 mg/dL Normal 70-100 [facility] Comment on above: Order Comment: Evalu ate for Pneumothorax Performed By: #### 1 69, 89169 ####[facility] [address], [place] Potassium [Moles/Vol] 4.0 mmol/L Normal 3.5-5.1 [facility] Comment on above: Order Comment: Evalu ate for Pneumothorax Performed By: #### 1 69, 58894 ####[facility] [address], [place] Sodium [Moles/Vol] 141 mmol/L Normal 136-145 [facility] Comment on above: Order Comment: Evalu ate for Pneumothorax Performed By: #### 1 69, 96253 ####[facility] [address], [facility] Urea nitrogen [Mass/Vol] 23 mg/dL Normal 7-25 [facility] Comment on above: Order Comment: Evalu ate for Pneumothorax Performed By: #### 1 69, 93755 ####[facility] [facility] [address], [facility] CBC COMPLETE BLOOD COUNTon 02-18-2022 Erythrocyte distribution width (RBC) [Ratio] 13.7 % Normal 11.5-15.0 [facility] Comment on above: Order Comment: No: D o not add to previous draw Performed By: #### 5 0608 #### [facility] [address] [place] [id number], [facility] Hematocrit (Bld) [Volume fraction] 40.8 % Normal 39.0-50.0 [facility] Comment on above: Order Comment: No: D o not add to previous draw Performed By: #### 5 0608 #### [facility] [address] [facility] [place] [address], [facility] Hemoglobin (Bld) [Mass/Vol] 13.7 g/dL Normal 13.0-17.0 [facility] Comment on above: Order Comment: No: D o not add to previous draw Performed By: #### 5 0608 #### [facility] [address] [place] [address], [facility] IMM PLATELET FRAC 6.8 % High 0.8-6.3 [facility] Comment on above: Order Comment: No: D o not add to previous draw Performed By: #### 5 0608 #### [facility] [address] [place] [address], [facility] MCH (RBC) [Entitic mass] 31.4 pg Normal 27.0-33.0 [facility] Comment on above: Order Comment: No: D o not add to previous draw Performed By: #### 5 0608 #### [facility] [address] [facility] [place] [address], [facility] MCHC (RBC) [Mass/Vol] 33.6 g/dL Normal 32.0-35.0 [facility] Comment on above: Order Comment: No: D o not add to previous draw Performed By: #### 5 0608 #### [facility] [address] [facility] [place] [address], [facility] MCV (RBC) [Entitic vol] 93.6 fL Normal 82.0-98.0 [facility] Comment on above: Order Comment: No: D o not add to previous draw Performed By: #### 5 0608 #### [facility] [address] [place] [address], [facility] Nucleated RBC/100 WBC (Bld) [Ratio] 0 % Normal 0-0 [facility] Comment on above: Order Comment: No: D o not add to previous draw Performed By: #### 5 0608 #### [facility] [address] [facility] [place] [address], [facility] PLAT CNT 130 10*3/uL Low 150-400 [facility] Comment on above: Order Comment: No: D o not add to previous draw Performed By: #### 5 0608 #### [facility] [address] [place] [address], [facility] RBC (Bld) [#/Vol] 4.36 10*6/uL Normal 4.20-5.70 [facility] Comment on above: Order Comment: No: D o not add to previous draw Performed By: #### 5 0608 #### [facility] [address] [facility] [place] [address], [facility] WBC (Bld) [#/Vol] 6.17 10*3/uL Normal 4.00-10.60 [facility] Comment on above: Order Comment: No: D o not add to previous draw Performed By: #### 5 0608 #### [facility] [address] [facility] [address] MAGNESIUM BLOODon 02-18-2022 Magnesium [Mass/Vol] 2.0 mg/dL Normal 1.9-2.7 [facility] Comment on above: Order Comment: Evalu ate for Pneumothorax Performed By: #### 1 0070, 30631 ####[facility] [facility].[address] UFH HEPARIN ASSAYon 02-19-20 22 UNFRACTIONATED HEPARIN 0.78 IU/mL High 0.30-0.70 [facility] Comment on above: Result Comment: Hines roxaban and Apixaban will interfere with the anti Xa assay used to monitor UFH and LMWH. Performed By: #### 3 0477 ####[facility] POC SARS COV2 ANTIGEN NEGATI VEon 02-17-2022 POC SARS COV2 ANTIGEN NEG Negative Normal NEGATIVE [facility] Comment on above: Result Comment: Nega tive [...] antigen from SARS-CoV-2 in direct nasopharyngeal swab ([employer] WORKER) specimens from individuals who are suspected of [...] Accreditation. Performed By: #### 3 2044 #### [facility] [address] APTTon 02-16-2022 aPTT Coag (Bld) [Time] 33.3 s Normal 25.0-35.0 [facility] Comment on above: Order Comment: Check Chest [...] THIS PURPOSE. Performed By: #### 5 7307, 92525 ####[facility] [place] [address], [facility] CBC COMPLETE BLOOD COUNTon 02-16-2022 Erythrocyte distribution width (RBC) [Ratio] 13.8 % Normal 11.5-15.0 [facility] Comment on above: Order Comment: No: D o not add to previous draw Performed By: #### 5 0608 #### [facility] [address] [place] [address], [facility] Hematocrit (Bld) [Volume fraction] 40.2 % Normal 39.0-50.0 [facility] Comment on above: Order Comment: No: D o not add to previous draw Performed By: #### 5 0608 #### [facility] [address] [place] [address], [facility] Hemoglobin (Bld) [Mass/Vol] 13.5 g/dL Normal 13.0-17.0 [facility] Comment on above: Order Comment: No: D o not add to previous draw Performed By: #### 5 0608 #### [facility] [address] [place] [address], [facility] IMM PLATELET FRAC 5.7 % Normal 0.8-6.3 [facility] Comment on above: Order Comment: No: D o not add to previous draw Performed By: #### 5 0608 #### [facility] [address] [place] [address], [facility] MCH (RBC) [Entitic mass] 31.0 pg Normal 27.0-33.0 [facility] Comment on above: Order Comment: No: D o not add to previous draw Performed By: #### 5 0608 #### [facility] [address] [facility] [place] [address], [facility] MCHC (RBC) [Mass/Vol] 33.6 g/dL Normal 32.0-35.0 [facility] Comment on above: Order Comment: No: D o not add to previous draw Performed By: #### 5 0608 #### [facility] [address] [place] [address], [facility] MCV (RBC) [Entitic vol] 92.4 fL Normal 82.0-98.0 T [facility] Comment on above: Order Comment: No: D o not add to previous draw Performed By: #### 5 0608 #### [facility] [address] [place] [address], [facility] Nucleated RBC/100 WBC (Bld) [Ratio] 0 % Normal 0-0 [facility] Comment on above: Order Comment: No: D o not add to previous draw Performed By: #### 5 0608 #### [facility] [address] [place] [address], [facility] PLAT CNT 128 10*3/uL Low 150-400 [facility] Comment on above: Order Comment: No: D o not add to previous draw Performed By: #### 5 0608 #### [facility] [address] [place] [address], [facility] RBC (Bld) [#/Vol] 4.35 10*6/uL Normal 4.20-5.70 [facility] Comment on above: Order Comment: No: D o not add to previous draw Performed By: #### 5 0608 #### [facility] [address] [place] [address], [facility] [place] WBC (Bld) [#/Vol] 6.37 10*3/uL Normal 4.00-10.60 [facility] Comment on above: Order Comment: No: D o not add to previous draw Performed By: #### 5 0608 #### [facility] [address] [place] [address], [facility] COMP METABOLIC PANELon 02-16 Albumin [Mass/Vol] 3.5 g/dL Normal 3.5-5.7 [facility] Comment on above: Order Comment: No: D o not add to previous draw Criteria for reflexing a culture was not met. Please call the lab at [phone] within 24 hours of collection time if culture is needed Performed By: #### 3 0965 #### [facility] [address] [place] [address], [facility] ALKALINE PHOSPH 63 IU/L Normal 34-104 [facility] Comment on above: Order Comment: No: D o not add to previous draw Criteria for reflexing a culture was not met. Please call the lab at [phone] within 24 hours of collection time if culture is needed Performed By: #### 3 0965 #### [facility] [address] [place] [address], [place] ALT [Catalytic activity/Vol] 14 U/L Normal 7-52 [facility] Comment on above: Order Comment: No: D o not add to previous draw Criteria for reflexing a culture was not met. Please call the lab at [phone] within 24 hours of collection time if culture is needed Performed By: #### 3 0965 #### [facility] [address] [place] [address], [place] AST [Catalytic activity/Vol] 13 U/L Normal 13-39 [facility] Comment on above: Order Comment: No: D o not add to previous draw Criteria for reflexing a culture was not met. Please call the lab at [phone] within 24 hours of collection time if culture is needed Performed By: #### 3 0965 #### [facility] [address] [place] [address], [place] Bilirubin [Mass/Vol] 0.7 mg/dL Normal 0.3-1.0 [facility] Comment on above: Order Comment: No: D o not add to previous draw Criteria for reflexing a culture was not met. Please call the lab at [phone] within 24 hours of collection time if culture is needed Performed By: #### 3 0965 #### [facility] [address] [place] [address], [place] Calcium [Mass/Vol] 8.9 mg/dL Normal 8.6-10.3 [facility] Comment on above: Order Comment: No: D o not add to previous draw Criteria for reflexing a culture was not met. Please call the lab at [phone] within 24 hours of collection time if culture is needed Performed By: #### 3 0965 #### [facility] [address] [place] [address], [facility] Chloride [Moles/Vol] 108 mmol/L High 98-107 [facility] Comment on above: Order Comment: No: D o not add to previous draw Criteria for reflexing a culture was not met. Please call the lab at [phone] within 24 hours of collection time if culture is needed Performed By: #### 3 0965 #### [facility] [address] [facility] [address], [facility] CO2 [Moles/Vol] 24 mmol/L Normal 21-31 [facility] Comment on above: Order Comment: No: D o not add to previous draw Criteria for reflexing a culture was not met. Please call the lab at [phone] within 24 hours of collection time if culture is needed Performed By: #### 3 0965 #### [facility] [address] [place] [address], [facility] Creatinine [Mass/Vol] 0.91 mg/dL Normal 0.70-1.30 [facility] Comment on above: Order Comment: No: D o not add to previous draw Criteria for reflexing a culture was not met. Please call the lab at [phone] within 24 hours of collection time if culture is needed Performed By: #### 3 0965 #### [facility] [address] [place] [address], [facility] GFR/1.73 sq M.predicted among non-blacks MDRD (S/P/Bld) [Vol rate/Area] mL/min/{1.73_m2} Normal >60 [facility] Comment on above: Order Comment: No: D o not add to previous draw Criteria for reflexing a culture was not met. Please call the lab at [phone] within 24 hours of collection time if culture is needed Result Comment: [facility]'s estimated glomerular filtration rate (eGFR) will no [...] individuals. Performed By: #### 3 0965 #### [facility] [address] [place] [address], [place] Glucose [Mass/Vol] 97 mg/dL Normal 70-100 [facility] Comment on above: Order Comment: No: D o not add to previous draw Criteria for reflexing a culture was not met. Please call the lab at [phone] within 24 hours of collection time if culture is needed Performed By: #### 3 0965 #### [facility] [address] [place] [address], [place] Potassium [Moles/Vol] 4.1 mmol/L Normal 3.5-5.1 [facility] Comment on above: Order Comment: No: D o not add to previous draw Criteria for reflexing a culture was not met. Please call the lab at [phone] within 24 hours of collection time if culture is needed Performed By: #### 3 0965 #### [facility] [address] [place] [address], [place] Protein [Mass/Vol] 5.8 g/dL Low 6.0-8.3 [facility] Comment on above: Order Comment: No: D o not add to previous draw Criteria for reflexing a culture was not met. Please call the lab at [phone] within 24 hours of collection time if culture is needed Performed By: #### 3 0965 #### [facility] [address] [place] [address], [place] Sodium [Moles/Vol] 139 mmol/L Normal 136-145 [facility] Comment on above: Order Comment: No: D o not add to previous draw Criteria for reflexing a culture was not met. Please call the lab at [phone] within 24 hours of collection time if culture is needed Performed By: #### 3 0965 #### [facility] [address] [place] [address], [place] Urea nitrogen [Mass/Vol] 26 mg/dL High 7-25 [facility] Comment on above: Order Comment: No: D o not add to previous draw Criteria for reflexing a culture was not met. Please call the lab at [phone] within 24 hours of collection time if culture is needed Performed By: #### 3 0965 #### [place] [address], [facility] CTA CHESTon 02-16-2022 CTA CHEST [facility] Department of Radiology [address] [place] [id number] ======== Patient Name: IGNACIO AMIN : 1945 Sex: M Age: Race: White Pt. Location: [id number] Patient Status: O Ordered Date: 02/16/2022 9:45:00 [...] achievable. Electronically signed: Mahesh Sanchez. Transcribed by: [email or web address], User Resident: Electronically Signed by: MAHESH SANCHEZ @ 02/20/2022 08:38 AM Normal [facility] Comment on above: Order Comment: Check Chest Tube Position, ON ARRIVAL TO CVU Cardiovascular Lab Reporton 02-16-2022 Cardiovascular Lab Report [facility] Patient Name: [facility] E MR #: [id number] Department of Physician: Nora Garcia M.D. Division of Service Date: 02/15/2022 Cardiology Birthdate: 1945 Adult Cardiovascular Room #: 3AB [id number] [place] [address] Cardiovascular Laboratory Report FINAL IMPRESSIONS: 1. Severe, [...] the left radial artery was obtained. A 6-Ugandan 11 cm sheath was inserted without difficulty. [...] coronary arteries. It shows a heavily calcific [id number] stenosis estimated to be 80% to 85% [...] Lisha/Donavan Saeed M.D. Date Trans: 02/16/2022 05:09 A/anirudh [id number] cc: Elliot Rosales M.D. [address] [place] [id number] Normal [facility] DIRECT BILIon 02-16-2022 Bilirubin.direct [Mass/Vol] 0.1 mg/dL Normal 0.0-0.2 [facility] Comment on above: Order Comment: No: D o not add to previous draw Criteria for reflexing a culture was not met. Please call the lab at 76 within 24 hours of collection time if culture is needed Performed By: #### 3 0965 #### [facility] [address] HEMOGLOBIN A1Con 02-16-2022 Glucose [Moles/Vol] 120 mmol/L Normal [facility] Comment on above: Order Comment: Check Chest Tube Position, ON ARRIVAL TO CVU Performed By: #### 3 1791 ####[facility] HbA1c (Bld) [Mass fraction] 5.8 % Normal 4.0-6.0 [facility] Comment on above: Order Comment: Check Chest Tube Position, ON ARRIVAL TO CVU Performed By: #### 3 1791 ####[facility] [place] [address], [facility] LIPID PROFILEon 02-16-2022 Cholesterol [Mass/Vol] 110 mg/dL Low 120-200 Th [facility] Comment on above: Order Comment: No: D [...] Risk Performed By: #### 3 0965 #### [facility] [address] [place] [address], [place] Cholesterol in HDL [Mass/Vol] 30 mg/dL Normal 23-92 [facility] Comment on above: Order Comment: No: D [...] Risk Performed By: #### 3 0965 #### [facility] [address] [place] [address], [place] Cholesterol in LDL [Mass/Vol] 47 mg/dL Normal 0-130 [facility] Comment on above: Order Comment: No: D o not add to previous draw Criteria for reflexing a culture was not met. Please call the lab at [phone] within 24 hours of collection time if culture is needed Result Comment: LDL IS A CALCULATION LDL IS ONLY VALID IF THE TRIG IS LESS THAN 400. Performed By: #### 3 0965 #### [facility] [address] [place] [address], [place] Cholesterol.total/Nai sterol in HDL [Mass ratio] 3.7 {ratio} Normal .0-4.5 [facility] Comment on above: Order Comment: No: D o not add to previous draw Criteria for reflexing a culture was not met. Please call the lab at [phone] within 24 hours of collection time if culture is needed Performed By: #### 3 0965 #### [facility] [address] [place] [address], [place] NON-HDL CHOLESTEROL 80 mg/dL Normal [facility] Comment on above: Order Comment: No: D o not add to previous draw Criteria for reflexing a culture was not met. Please call the lab at [phone] within 24 hours of collection time if culture is needed Performed By: #### 3 0965 #### [facility] [address] [facility] [place] [address], [facility] Triglyceride [Mass/Vol] 164 mg/dL High 40-149 T [facility] Comment on above: Order Comment: No: D [...] RISK Performed By: #### 3 0965 #### [facility] [address] [place] [address], [facility] VLDL CHOL 33 mg/dL Normal 0-40 [facility] Comment on above: Order Comment: No: D o not add to previous draw Criteria for reflexing a culture was not met. Please call the lab at [phone] within 24 hours of collection time if culture is needed Performed By: #### 3 0965 #### [facility] [address] [place] [address], [facility] MAGNESIUM BLOODon 02-16-2022 Magnesium [Mass/Vol] 1.9 mg/dL Normal 1.9-2.7 [facility] Comment on above: Order Comment: No: D o not add to previous draw Performed By: #### 3 0739 #### [facility] [address] [place] [address], [facility] PHOSPHORUS BLOODon Phosphate [Mass/Vol] 3.5 mg/dL Normal 2.5-5.0 [facility] Comment on above: Order Comment: No: D o not add to previous draw Criteria for reflexing a culture was not met. Please call the lab at [phone] within 24 hours of collection time if culture is needed Performed By: #### 3 0965 #### [address] PORTABLE CHEST 1 VIEWon 01-22 PORTABLE CHE[address] [facility] Department of Radiology [address] [place] [phone] ======== Patient Name: IGNACIO AMIN : 1945 Sex: M Age: Race: White Pt. Location: [address] [place] [address] Patient Status: I Ordered Date: 02/16/2022 7:00:00 AM Completed Date: 02/16/2022 07:39 AM Requesting Provider: CAITA GTZ Attending Provider: ADITYA RODRIGUEZ Report Copy [...] chest. Electronically signed: Fidelina Mi. Transcribed by: [email or web address], User Resident: Electronically Signed by: FIDELINA MI @ 02/16/2022 09:14 AM Normal [facility] Comment on above: Order Comment: Check Chest Tube Position, ON ARRIVAL TO CVU PROTHROMBIN TIMEon INR Coag (PPP) [Relative time] 1.09 {INR} Normal 0.91-1.16 [facility] Comment on above: Order Comment: Check Chest Tube Position, ON ARRIVAL TO CVU Result Comment: ACCC P RECOMMENDED INR FOR WARFARIN THERAPY ------- CONDITION INR PROPHYLAXIS OF VENOUS THROMBOSIS 2-3 (HIGH-RISK SURGERY) TREATMENT OF VENOUS THROMBOSIS 2-3 TREATMENT OF PULMONARY EMBOLISM 2-3 PREVENTION OF SYSTEMIC EMBOLISM: 2-3 ACUTE MYOCARDIAL INFARCTION TISSUE HEART VALVES VALVULAR HEART DISEASE ATRIAL FIBRILLATION RECURRENT SYSTEMIC EMBOLISM MECHANICAL HEART VALVE 2.5-3.5 FROM: ORAL ANTICOAGULANTS. MECHANISM OF ACTION, CLINICAL EFFECTIVENESS, AND OPTIMAL THERAPEUTIC RANGE. CHEST 1995;108:231S-246S. Performed By: #### 5 7307, [id number] ####[facility] [facility] PT Coag (PPP) [Time] 14.1 s Normal 12.3-14.8 [facility] Comment on above: Order Comment: Check Chest Tube Position, ON ARRIVAL TO CVU Result Comment: ALL RESULTS MUST BE INTERPRETED WITH RESPECT TO BLOOD DRAWING ARTIFACT OR DILUTION ERROR OF ANTICOAGULANT AT THE TIME OF SAMPLING. Performed By: #### 5 7307, 56803 ####[facility] [facility] TSH3on 02-16-2022 TSH 3RD GENERATION 1.10 uIU/mL Normal 0.34-5.60 [facility] Comment on above: Order Comment: No: D o not add to previous draw Performed By: #### 3 0779 #### [facility] [address] *MRSA/MSSA DNA NASALon 02-15 *MRSA/MSSA DNA NASAL Clinical Report: (D ) Specimen: NASAL SWAB Collected: 02/15/2022 17:50 Status: Final Last Updated: 02/16/2022 12:41 (1) No collection time noted on specimen or requisition. The collection time recorded is the time of receipt in the lab. MSSA DNA (Final) Negative MRSA DNA (Final) Negative Normal [facility] Comment on above: Order Comment: No co llection time noted on specimen or requisition. The collection time recorded is the time of receipt in the lab. Performed By: #### 3 1595 #### [facility] [address] URINALYSIS REFLEXon 02-16-20 22 Appearance (U) CLEAR Normal CLEAR [facility] Comment on above: Order Comment: No: D o not add to previous drawCriteria for reflexing a culture was not met. Please call the lab [id number] within 24 hours of collection time if culture is needed Performed By: #### 3 5912 #### [facility] [address] Bilirubin Ql (U) Negative Normal NEGATIVE [facility] Comment on above: Order Comment: No: D o not add to previous drawCriteria for reflexing a culture was not met. Please call the lab [id number] within 24 hours of collection time if culture is needed Performed By: #### 3 5714 #### [facility] [address] Color (U) YELLOW Normal YELLOW [facility] Comment on above: Order Comment: No: D o not add to previous drawCriteria for reflexing a culture was not met. Please call the lab [id number] within 24 hours of collection time if culture is needed Performed By: #### 3 2043 #### [facility] [address] [place] [address], [facility] EPIS NONE SEEN Normal FEW,OCC,NON E SEEN [facility] Comment on above: Order Comment: No: D o not add to previous drawCriteria for reflexing a culture was not met. Please call the lab [id number] within 24 hours of collection time if culture is needed Performed By: #### 3 2043 #### [facility] [address] [place] [address], [place] Glucose Ql (U) Negative Normal NEGATIVE [facility] Comment on above: Order Comment: No: D o not add to previous drawCriteria for reflexing a culture was not met. Please call the lab [id number] within 24 hours of collection time if culture is needed Performed By: #### 3 2043 #### [facility] [address] [place] [address], [place] Hemoglobin Ql (U) TRACE Abnormal NEGATIVE [facility] Comment on above: Order Comment: No: D o not add to previous drawCriteria for reflexing a culture was not met. Please call the lab [id number] within 24 hours of collection time if culture is needed Performed By: #### 3 2043 #### [facility] [address] [place] [address], [place] KETONE Negative Normal NEGATIVE [facility] Comment on above: Order Comment: No: D o not add to previous drawCriteria for reflexing a culture was not met. Please call the lab [id number] within 24 hours of collection time if culture is needed Performed By: #### 3 2043 #### [facility] [address] [place] [address], [place] LEUK TOMA Negative Normal NEGATIVE [facility] Comment on above: Order Comment: No: D o not add to previous drawCriteria for reflexing a culture was not met. Please call the lab [id number] within 24 hours of collection time if culture is needed Performed By: #### 3 2043 #### [facility] [address] [place] [address], [facility] Nitrite Ql (U) Negative Normal NEGATIVE [facility] Comment on above: Order Comment: No: D o not add to previous drawCriteria for reflexing a culture was not met. Please call the lab [id number] within 24 hours of collection time if culture is needed Performed By: #### 3 2043 #### [facility] [address] [facility]. [address] pH (U) 6.0 [pH] Normal 5.0-8.0 [facility] Comment on above: Order Comment: No: D o not add to previous drawCriteria for reflexing a culture was not met. Please call the lab [id number] within 24 hours of collection time if culture is needed Performed By: #### 3 2043 #### [facility] [address] [place] [address], [facility] Protein Ql (U) Negative Normal NEGATIVE [facility] Comment on above: Order Comment: No: D o not add to previous drawCriteria for reflexing a culture was not met. Please call the lab [id number] within 24 hours of collection time if culture is needed Performed By: #### 3 2043 #### [facility] [address] [place] [address], [facility] RBC 0-2 Abnormal NONE SEEN [facility] Comment on above: Order Comment: No: D o not add to previous drawCriteria for reflexing a culture was not met. Please call the lab [id number] within 24 hours of collection time if culture is needed Performed By: #### 3 2043 #### [facility] [address] [place] [address], [facility] SPEC GRAV 1.010 Low 1.015-1.020 [facility] Comment on above: Order Comment: No: D o not add to previous drawCriteria for reflexing a culture was not met. Please call the lab [id number] within 24 hours of collection time if culture is needed Performed By: #### 3 2043 #### [facility] [address] [place] [address], [facility] WBC UA 0-2 Abnormal NONE SEEN [facility] Comment on above: Order Comment: No: D o not add to previous drawCriteria for reflexing a culture was not met. Please call the lab [email or web address] within 24 hours of collection time if culture is needed Performed By: #### 3 2043 #### [facility] [address] [place] [address], [facility] Covid-19 PCR (CVDTB)on 01-22 SARS-CoV-2 (COVID-19) RNA JJ+probe Ql (Unsp spec) Not detected Normal NOT DETECTED [facility] Comment on above: Result Comment: This test is not yet approved or cleared by the [place] FDA. When there are no FDA-approved or cleared tests available, and other criteria are met, FDA can make tests available under an emergency access mechanism called an Emergency Use Authorization (EUA). The EUA for this test is supported by the [place] of Health and Human Service's (HHS's) declaration [...] SARS-CoV-2. Performed By: #### H H #### [facility] [address] [place] [address] Dr. Yoselin Rivera HEMOGRAM AND PLATELon 2021 Hematocrit (Bld) [Volume fraction] 42.9 % Normal 42.0-54.0 [facility] Comment on above: Performed By: #### H H #### [facility] [address] [place] [address] [address] Yoselin Rivera Hemoglobin (Bld) [Mass/Vol] 14.0 g/dL Normal 14.0-18.0 [facility] Comment on above: Performed By: #### H H #### [facility] [address] [place] [address] Dr. Yoselin Rivera MCH (RBC) [Entitic mass] 30.7 pg Normal 25.9-34.0 [facility] Comment on above: Performed By: #### H H #### [facility] [address] [place] [address] Dr. Yoselin Rivera MCHC (RBC) [Mass/Vol] 32.6 g/dL Normal 29.9-35.2 [facility] Comment on above: Performed By: #### H H #### [facility] [address] [place] [address] Dr. Yoselin Rivera MCV (RBC) [Entitic vol] 94.1 fL Critically high 80.0-94 .0 [facility] Comment on above: Performed By: #### H H #### [facility] [address] [place] [address] Dr. Yoselin Rivera PLT 153 103/ul Normal 150-450 [facility] Comment on above: Performed By: #### H H #### [facility] [address] [place] [address] Dr. Yoselin Rivera RBC 4.56 106/ul Critically low 4.70-6.10 [facility] Comment on above: Performed By: #### H H #### [facility] [address] [place] [address] Dr. Yoselin Rivera WBC 5.9 103/ul Normal 4.0-11.0 [facility] Comment on above: Performed By: #### H H #### [facility] [address] [place] [address] Dr. Yoselin Rivera PROF CHEM 8 (BAS METB)on Anion gap [Moles/Vol] 9.0 mmol/L Normal [facility] Comment on above: Performed By: #### H H #### [facility] [address] [place] [address] Dr. Yoselin Rivera Calcium [Mass/Vol] 9.1 mg/dL Normal 8.5-10.[address] [facility] Comment on above: Performed By: #### H H #### [facility] [address] [place] [address] Dr. Yoselin Rivera Chloride [Moles/Vol] 104 mmol/L Normal 98-107 [facility] Comment on above: Performed By: #### H H #### [facility] [address] [place] [address] [address] Yoselin Rivera CO2 [Moles/Vol] 30.0 mmol/L Normal 21.0-32.0 [facility] Comment on above: Performed By: #### H H #### [facility] [address] [place] [address] Dr. Yoselin Rivera Creatinine [Mass/Vol] 0.98 mg/dL Normal 0.70-1.30 [facility] Comment on above: Performed By: #### H H #### [facility] [address] [place] [address] Dr. Yoselin Rivera EGFR-AF [place] >60 Normal >=60 [facility] Comment on above: Performed By: #### H H #### [facility] [address] [place] [address] Dr. Yoselin Rivera EGFR-NON AF [place] >60 Normal >=60 [facility] Comment on above: Performed By: #### H H #### [facility] [address] [place] [address] Dr. Yoselin Rivera Glucose [Mass/Vol] 122 mg/dL Critically high 74-106 [facility] Comment on above: Performed By: #### H H #### [facility] [address] [place] [address] Dr. Yoselin Rivera Potassium [Moles/Vol] 4.0 mmol/L Normal 3.5-5.1 [facility] Comment on above: Performed By: #### H H #### [facility] [address] [place] [address] Dr. Yoselin Rivera Sodium [Moles/Vol] 139 mmol/L Normal 136-145 [facility] Comment on above: Performed By: #### H H #### [facility] [address] [address] [address] Yoselin Rivera Urea nitrogen [Mass/Vol] 19.0 mg/dL Critically high 7.0-18.0 [facility] Comment on above: Performed By: #### H H #### [facility] [address] [address] [address] Yoselin Rivera Urea nitrogen/Creatinine [Mass ratio] 19.4 mg/mg Normal [facility] Comment on above: Performed By: #### H H #### [facility] [address] [address] [address] Yoselin Rivera NM STRESS/REST MULTIon 02-07 NM STRESS/REST MULTI Patient: YARON AMIN Exam Date: 02/07/2022 : 1945 Gender:M Ordering : DR DONAVAN SAEED M.D. Admission #: [id number] Family : DR ELLIOT ROSALES M.D. Order #: [id number] CLICK HERE TO VIEW EXAM RADIOLOGY REPORT [...] Lanza M.D. on 02/08/2022 at 09:32 Normal [facility] URINALYSISOrdered By: Annie sanchez on 09-19-2021 Bacteria [...] Interpretation Code Negative [facility] UA Auto SS [place].plasma/[place]. RBC (Bld) [Mass ratio] 0-3 /HPF Normal 0-3/HPF [facility] UA A uto SS Mucus Ql (Urine sed) Trace (09/19/21 12:29 PM) Normal [facility] UA Auto SS Nitrite Ql (U) Negative (09/19/21 12:29 PM) Normal Negative [facility] UA Auto SS pH (U) 5.5 *NA* (09/19/21 12:29 PM) Invalid Interpretation Code 5.0 - 9.0 [facility] UA Auto SS Protein (U) [Mass/Vol] Negative (09/19/21 12:29 PM) Normal Negative [facility] UA Auto SS Specific gravity (U) [Rel density] >=1.030 *NA* (09/19/21 12:29 PM) Invalid Interpretation Code 1.005 - 1.030 [facility] UA Auto SS UA Spec Desc Random Urine (09/19/21 12:29 PM) Normal [facility] UA Auto SS Urobilinogen Qn (U) [id number] {Kayce'U}/dL Normal 0.0 - 1.0 EU/dL [facility] UA Auto SS WBC Auto Ql (U) 2+ *ABN* (09/19/21 12:29 PM) Invalid Interpretation Code Negative [facility] UA Auto SS WBC LM.HPF (Urine sed) [#/Area] /[HPF] Invalid Interpretation Code 0-5/HPF [facility] UA Auto SS Vital Signs Date Time Vital Sign Value Performing Clinician Facility 01-11-2025 09:53-0400 Body height 177.8 cm Elliot Rosales MD Work Phone: [facility] 01-11-2025 09:53-0400 Body mass index (BMI) [Ratio] 28.5 kg/m2 Elliot Rosales MD Work Phone: [facility] 01-11-2025 09:53-0400 Body weight 90.26 kg Elliot Rosales MD Work Phone: [facility] 01-11-2025 09:53-0400 Diastolic blood pressure 74 mm[Hg] Elliot Rosales MD Work Phone: [facility] 01-11-2025 09:53-0400 Heart rate 77 /min Elliot Rosales MD Work Phone: [facility] 01-11-2025 09:53-0400 Respiratory rate 16 /min Elliot Rosales MD Work Phone: [facility] 01-11-2025 09:53-0400 SaO2% (BldA) [Mass fraction] 98 % Elliot Rosales MD Work Phone: [facility] 01-11-2025 09:53-0400 Systolic blood pressure 124 mm[Hg] Elliot Rosales MD Work Phone: [facility] 12-28-2024 08:56-0400 Body height 177.8 cm Elliot Rosales MD Work Phone: [facility] 12-28-2024 08:56-0400 Body mass index (BMI) [Ratio] 28.5 kg/m2 Elliot Rosales MD Work Phone: [facility] 12-28-2024 08:56-0400 Body weight 90.26 kg Elliot Rosales MD Work Phone: [facility] 12-28-2024 08:56-0400 Diastolic blood pressure 77 mm[Hg] Elliot Rosales MD Work Phone: [facility] 12-28-2024 08:56-0400 Heart rate 77 /min Elliot Rosales MD Work Phone: [facility] 12-28-2024 08:56-0400 Respiratory rate 12 /min Elliot Rosales MD Work Phone: [facility] 12-28-2024 08:56-0400 SaO2% (BldA) [Mass fraction] 97 % Elliot Rosales MD Work Phone: [facility] 12-28-2024 08:56-0400 Systolic blood pressure 117 mm[Hg] Elliot Rosales MD Work Phone: [facility] 09-01-2024 08:54-0400 Body height 177.8 cm [facility] 09-01-2024 08:54-0400 Body mass index (BMI) [Ratio] 29 kg/m2 [facility] 09-01-2024 08:54-0400 Body weight 91.62 kg [facility] 09-01-2024 08:54-0400 Diastolic blood pressure 83 mm[Hg] [facility] 09-01-2024 08:54-0400 Heart rate 74 /min [facility] 09-01-2024 08:54-0400 Systolic blood pressure 136 mm[Hg] [facility] 06-29-2024 [id number] Body height 177.8 cm [facility] 06-29-2024 10:26-0500 Body mass index (BMI) [Ratio] 29.1 kg/m2 [facility] 06-29-2024 10:26-0500 Body temperature 97.7 [degF] [facility] 06-29-2024 [id number] Body weight 92.19 kg [facility] 06-29-2024 10:26-0500 Diastolic blood pressure 82 mm[Hg] [facility] 06-29-2024 10:26-0500 Heart rate 70 /min [facility] 06-29-2024 10:26-0500 Respiratory rate 16 /min [facility] 06-29-2024 10:26-0500 SaO2% (BldA) [Mass fraction] 98 % [facility] 06-29-2024 10:26-0500 Systolic blood pressure 140 mm[Hg] [facility] 10-14-2023 09:10-0400 Diastolic blood pressure 70 mm[Hg] MD Elliot Rosales Work Phone: [facility] 10-14-2023 09:10-0400 Heart rate 63 /min MD Elliot Rosales Work Phone: [facility] 10-14-2023 09:10-0400 Respiratory rate 18 /min MD Elliot Rosales Work Phone: [facility] 10-14-2023 09:10-0400 SaO2% (BldA) [Mass fraction] 100 % MD Elliot Rosales Work Phone: [facility] 10-14-2023 09:10-0400 Systolic blood pressure 130 mm[Hg] MD Elliot Rosales Work Phone: [facility] 10-14-2023 07:19-0400 Body height 177.8 cm MD Elliot Rosales Work Phone: [facility] 10-14-2023 07:19-0400 Body weight 90.26 kg MD Elliot Rosales Work Phone: [facility] 07-23-2023 09:45-0500 Blood Pressure Location Patience Lue [facility] 07-23-2023 09:45-0500 Diastolic blood pressure 80 mm[Hg] Patience Lue [facility] 07-23-2023 09:45-0500 Heart rate 68 /min Patience Lue [facility] 07-23-2023 09:45-0500 Respiratory rate 16 /min Patience Lue [facility] 07-23-2023 09:45-0500 Systolic blood pressure 132 mm[Hg] Patience Lue [facility] 07-15-2023 09:40-0500 Body height 176.53 cm [employer] Other [facility] [employer] Other 07-15-2023 09:40-0500 Body mass index (BMI) [Ratio] 29.34 kg/m2 [employer] Other [employer] Other 07-15-2023 09:40-0500 Body temperature 96.2 [degF] Aziz [employer] Other [employer] Other 07-15-2023 09:40-0500 Body weight 91.45 kg Aziz [employer] Other [employer] Other 07-15-2023 09:40-0500 Diastolic blood pressure 70 mm[Hg] Aziz [employer] Other [employer] Other 07-15-2023 09:40-0500 Respiratory rate 18 /min Jenifer Jensen Other [employer] Other 07-15-2023 09:40-0500 SaO2% (BldA) [Mass fraction] 97 % Jenifer Jensen Other [employer] Other 07-15-2023 09:40-0500 Systolic blood pressure 122 mm[Hg] Jenifer Jensen Other [employer] Other 05-19-2023 10:00-0500 Body height 176.53 cm Elliot Rosales Other [employer] Other 05-19-2023 10:00-0500 Body mass index (BMI) [Ratio] 28.79 kg/m2 Elliot Rosales Other [employer] Other 05-19-2023 10:00-0500 Body weight 89.73 kg Elliot Rosales Other [employer] Other 05-19-2023 10:00-0500 Diastolic blood pressure 84 mm[Hg] Elliot Rosales Other [employer] Other 05-19-2023 10:00-0500 Systolic blood pressure 142 mm[Hg] Elliot Rosales Other [employer] Other 04-16-2023 09:42-0400 Blood Pressure Location Patience Huitron [facility] 04-16-2023 09:42-0400 Diastolic blood pressure 79 mm[Hg] Patience Porschee [facility] 04-16-2023 09:42-0400 Heart rate 68 /min Patience Lue [facility] 04-16-2023 09:42-0400 Respiratory rate 16 /min Patience Lue [facility] 04-16-2023 09:42-0400 Systolic blood pressure 134 mm[Hg] Patience Lue [facility] 01-28-2023 10:40-0400 Body height 176.53 cm Jenifer Monreals Other [facility] [employer] Other 01-28-2023 10:40-0400 Body mass index (BMI) [Ratio] 28.61 kg/m2 Jenifer [employer] Other [employer] Other 01-28-2023 10:40-0400 Body temperature 96.2 [degF] Jenifer [employer] Other [employer] Other 01-28-2023 10:40-0400 Body weight 89.18 kg [employer]vern Kernhous Other [employer] Other 01-28-2023 10:40-0400 Diastolic blood pressure 72 mm[Hg] Aziz Conchahous Other [employer] Other 01-28-2023 10:40-0400 Respiratory rate 18 /min Aziz [employer] Other [employer] Other 01-28-2023 10:40-0400 SaO2% (BldA) [Mass fraction] 100 % [employer]vern Bakhous Other [employer] Other 01-28-2023 10:40-0400 Systolic blood pressure 124 mm[Hg] Jenifer Jensen Other [facility] [employer] Other 12-13-2022 11:44-0400 Diastolic blood pressure 63 mm[Hg] MD Elliot Rosales Work Phone: [facility] 12-13-2022 11:44-0400 Heart rate 59 /min MD Elliot Rosales Work Phone: [facility] 12-13-2022 11:44-0400 Respiratory rate 16 /min MD Elliot Rosales Work Phone: [facility] 12-13-2022 11:44-0400 SaO2% (BldA) [Mass fraction] 97 % MD Elliot Rosales Work Phone: [facility] 12-13-2022 11:44-0400 Systolic blood pressure 128 mm[Hg] MD Elliot Rosales Work Phone: [facility] 12-13-2022 09:38-0400 Body height 177.8 cm MD Elliot Rosales Work Phone: [facility] 12-13-2022 09:38-0400 Body weight 87.99 kg MD Elliot Rosales Work Phone: [facility] 12-04-2022 09:11-0400 Blood Pressure Location Patience Lue [facility] 12-04-2022 09:11-0400 Diastolic blood pressure 74 mm[Hg] Patience Lue [facility] 12-04-2022 09:11-0400 Heart rate 68 /min Patience Lue [facility] 12-04-2022 09:11-0400 Respiratory rate 16 /min Patience Lue [facility] 12-04-2022 09:11-0400 Systolic blood pressure 130 mm[Hg] Patience Huitron [facility] 09-24-2022 13:03-0400 Body temperature 97.11 [degF] ELSI Doyle MD Work Phone: [facility] 09-24-2022 13:03-0400 Body weight 86 kg ELSI Doyle MD Work Phone: [facility] 09-24-2022 13:03-0400 Diastolic blood pressure 79 mm[Hg] ELSI Doyle MD Work Phone: [facility] 09-24-2022 13:03-0400 Heart rate 60 /min ELSI Doyle MD Work Phone: [facility] 09-24-2022 13:03-0400 Respiratory rate 18 /min ELSI Doyle MD Work Phone: [facility] 09-24-2022 13:03-0400 SaO2% (BldA) [Mass fraction] 100 % ELSI Dyole MD Work Phone: [facility] 09-24-2022 13:03-0400 Systolic blood pressure 129 mm[Hg] ELSI Doyle MD Work Phone: [facility] 09-23-2022 10:45-0400 Body height 176.53 cm Elliot Rosales Other [employer] Other 09-23-2022 10:45-0400 Body mass index (BMI) [Ratio] 28.67 kg/m2 Elliot Rosales Other [employer] Other 09-23-2022 10:45-0400 Body weight 89.36 kg Elliot Rosales Other [employer] Other 09-23-2022 10:45-0400 Diastolic blood pressure 70 mm[Hg] Elliot Rosales Other [employer] Other 09-23-2022 10:45-0400 Systolic blood pressure 118 mm[Hg] Elliot Rosales Other [employer] Other 08-19-2022 10:30-0500 Body height 176.53 cm Elliot Rosales Other [employer] Other 08-19-2022 10:30-0500 Body mass index (BMI) [Ratio] 27.94 kg/m2 Elliot Rosales Other [employer] Other 08-19-2022 10:30-0500 Body weight 87.09 kg Elliot Rosales Other [employer] Other 08-19-2022 10:30-0500 Diastolic blood pressure 80 mm[Hg] Elliot Rosales Other [employer] Other 08-19-2022 10:30-0500 SaO2% (BldA) [Mass fraction] 98 % Elliot Rosales Other [employer] Other 08-19-2022 10:30-0500 Systolic blood pressure 122 mm[Hg] Elliot Rosales Other [employer] Other 08-13-2022 10:40-0500 Body height 177.8 cm [employer] Other [employer] Other 08-13-2022 10:40-0500 Body mass index (BMI) [Ratio] 27.55 kg/m2 [employer] Other [employer] Other 08-13-2022 10:40-0500 Body weight 87.09 kg [employer] Other [employer] Other 08-13-2022 10:40-0500 Diastolic blood pressure 70 mm[Hg] Jenifer Monreals Other [facility] [employer] Other 08-13-2022 10:40-0500 Respiratory rate 18 /min Jenifer Monreals Other [employer] Other 08-13-2022 10:40-0500 SaO2% (BldA) [Mass fraction] 97 % Jenifer Monreals Other [employer] Other 08-13-2022 10:40-0500 Systolic blood pressure 149 mm[Hg] Jenifer Monreals Other [facility] [employer] Other 06-05-2022 09:28-0500 Blood Pressure Location Patience Lue [facility] 06-05-2022 09:28-0500 Diastolic blood pressure 69 mm[Hg] Patience Lue [facility] 06-05-2022 09:28-0500 Heart rate 65 /min Patience Lue [facility] 06-05-2022 09:28-0500 Systolic blood pressure 128 mm[Hg] Patience Lue [facility] 04-30-2022 11:00-0500 Body height 177.8 cm Jenifer Monreals Other [facility] [employer] Other 04-30-2022 11:00-0500 Body mass index (BMI) [Ratio] 25.77 kg/m2 Jenifer Monreals Other [facility] [employer] Other 04-30-2022 11:00-0500 Body temperature 96.2 [degF] [employer]vern Bakcarltons Other [employer] Other 04-30-2022 11:00-0500 Body weight 81.47 kg Azvern Bakhous Other [employer] Other 04-30-2022 11:00-0500 Diastolic blood pressure 72 mm[Hg] Aziz Bakhous Other [employer] Other 04-30-2022 11:00-0500 Respiratory rate 18 /min Jenifer Bakhous Other [employer] Other 04-30-2022 11:00-0500 SaO2% (BldA) [Mass fraction] 99 % Jenifer Monreals Other [employer] Other 04-30-2022 11:00-0500 Systolic blood pressure 111 mm[Hg] Aziz Bakcarltons Other [employer] Other 12-03-2021 13:10-0400 Diastolic blood pressure 73 mm[Hg] Patience Lue [facility] 12-03-2021 13:10-0400 Heart rate 62 /min Patience Lue [facility] 12-03-2021 13:10-0400 Systolic blood pressure 124 mm[Hg] Patience Lue [facility] 09-25-2021 13:07-0400 Body temperature 96.4 [degF] ELSI Doyle MD Work Phone: [facility] 09-25-2021 13:07-0400 Body weight 87.54 kg ELSI Doyle MD Work Phone: [facility] 09-25-2021 13:07-0400 Diastolic blood pressure 70 mm[Hg] ELSI Doyle MD Work Phone: [facility] 09-25-2021 13:07-0400 Heart rate 62 /min ELSI Doyle MD Work Phone: [facility] 09-25-2021 13:07-0400 Respiratory rate 16 /min ELSI Doyle MD Work Phone: [facility] 09-25-2021 13:07-0400 SaO2% (BldA) [Mass fraction] 98 % ELSI Doyle MD Work Phone: [facility] 09-25-2021 13:07-0400 Systolic blood pressure 133 mm[Hg] ELSI Doyle MD Work Phone: [facility] 09-19-2021 09:38-0400 Blood Pressure Location Patience Lue [facility] 09-19-2021 09:38-0400 Diastolic blood pressure 78 mm[Hg] Patience Lue [facility] 09-19-2021 09:38-0400 Heart rate 68 /min Patience Lue [facility] 09-19-2021 09:38-0400 Respiratory rate 16 /min Patience Lue [facility] 09-19-2021 09:38-0400 Systolic blood pressure 128 mm[Hg] Patience Huitron [facility] Encounters Encounter Date Encounter Type Care Provider Facility Start: 01-31-2025 ambulatory AGUSTIN HOWARD [facility] Start: 01-11-2025 End: 01-11-2025 ambulatory Elliot Rosales MD Work Phone: [facility] Work Phone: Start: 01-11-2025 End: 01-11-2025 Patient encounter procedure Jenifer Jensen MD -[facility] Work Phone: Start: 01-03-2025 Non-patient / Non-visit Jenifer Jensen MD -[facility] Work Phone: Start: 12-28-2024 End: 12-28-2024 ambulatory Elliot Rosales MD Work Phone: [facility] Work Phone: Start: 12-28-2024 End: 12-28-2024 Patient encounter procedure Elliot Rosales MD -[facility] Work Phone: Start: 11-02-2024 End: 11-02-2024 ambulatory [facility] Start: 10-26-2024 End: 10-26-2024 ambulatory DONAVAN SAEED [facility] Start: 09-01-2024 End: 09-01-2024 ambulatory [facility] Work Phone: Start: 09-01-2024 End: 09-01-2024 [facility]: Start: 08-30-2024 Non-patient / Non-visit [facility] Work Phone: Start: 07-26-2024 ambulatory [facility] Start: 06-29-2024 End: 06-29-2024 Patient encounter procedure [facility] Work Phone: Start: 06-21-2024 Non-patient / Non-visit [facility] [place] Work Phone: Start: 06-01-2024 End: 06-01-2024 ambulatory [facility] Start: 05-25-2024 ambulatory [facility] Start: 05-11-2024 ambulatory [facility] Start: 05-11-2024 Encounter for preprocedural cardiovascular examination [facility] Start: 05-04-2024 End: 05-04-2024 ambulatory [facility] Start: 10-14-2023 End: 10-14-2023 ambulatory Elliot Rosales Facility:[facility] Start: 10-14-2023 Non-patient / Non-visit MD Tejal Rosales Work Phone: [facility] Gastroenterology Work Phone: Start: 10-14-2023 End: 10-14-2023 Admission to same day surgery center MD Elliot Rosales Work Phone: [facility] Work Phone: Start: 10-14-2023 End: 10-14-2023 ambulatory MD Elliot Rosales Work Phone: [facility] Work Phone: Start: 09-26-2023 Non-patient / Non-visit MD Tejal Rosales Work Phone: [facility] [place] Work Phone: Start: 07-23-2023 End: 07-24-2023 ambulatory Patience Huitron Facility:[facility] Start: 07-23-2023 End: 07-23-2023 Patient encounter procedure Patience Huitron [facility] Start: 07-15-2023 End: 07-15-2023 ambulatory Aziz Bakhous Other [employer] Other Start: 07-15-2023 Office outpatient vi sit 15 minutes Aziz Bakhous [facility] Start: 05-19-2023 End: 05-19-2023 ambulatory Elliot Rosales Other [employer] Other Start: 05-19-2023 Office outpatient vi sit 10 minutes Elliot Rosales [facility] Start: 04-16-2023 End: 04-17-2023 ambulatory Patience Jefferson. Porschee Facility:[facility] Start: 04-16-2023 End: 04-16-2023 Patient encounter procedure Patience JeffersonTj Huitron [facility] Start: 03-03-2023 End: 03-04-2023 ambulatory Patience MTj Lue Facility:[facility] Start: 03-03-2023 End: 03-03-2023 Patient encounter procedure Patience PaulinoTj Morrellsarita [facility] Start: 01-28-2023 End: 01-28-2023 ambulatory Aziz Bakhous Other [facility] [employer] Other Start: 01-28-2023 Office outpatient vi sit 15 minutes Aziz Bakhous [facility] Start: 12-13-2022 End: 12-13-2022 ambulatory Elliot Rosales Facility:[facility] Start: 12-13-2022 End: 12-13-2022 Admission to same day surgery center MD Elliot Rosales Work Phone: [facility] Work Phone: Start: 12-13-2022 End: 12-13-2022 ambulatory MD Elliot Rosales Work Phone: [facility] Work Phone: Start: 12-04-2022 End: 12-05-2022 ambulatory Patience PaulinoTj Morrellsarita Facility: [facility] Start: 12-04-2022 End: 12-04-2022 Patient encounter procedure Patience PaulinoTj Morrellsarita [facility] [place] Start: 09-24-2022 End: 09-24-2022 ambulatory Ema DOYLE Facility:[facility] Start: 09-24-2022 End: 09-24-2022 Patient encounter procedure Ema Doyle MD Work Phone: Rad[facility] Oncology Comment on above: History of prostate cancer (Primary Dx) Start: 09-23-2022 End: 09-23-2022 ambulatory Elliot Rosales Other [employer] Other Start: 09-23-2022 Office outpatient vi sit 15 minutes Elliot Rosales [facility] Start: 09-23-2022 Telephone encounter Elliot Rosales [facility] Start: 09-18-2022 End: 09-19-[address] ELLIOT ROSALES Facility: Start: 08-26-2022 End: 08-26-2022 ambulatory Elliot Rosales Other [employer] Other Start: 08-26-2022 Telephone encounter Elliot Rosales [facility] Start: 08-19-2022 End: 08-19-2022 ambulatory Elliot Rosales Other [employer] Other Start: 08-19-2022 Office outpatient vi sit 15 minutes Elliot Rosales [facility] Start: 08-13-2022 End: 08-13-2022 ambulatory Jenifer Monreals Other [employer] Other Start: 08-13-2022 Office outpatient vi sit 15 minutes Aziz Bakhous [facility] Start: 08-05-2022 End: 08-06-[address] ELLIOT ROSALES Facility:[facility] Start: 06-25-2022 End: 07-10-[address] ELLIOT ROSALES Facility:[facility] Start: 06-18-2022 End: 06-19-[address] ELLIOT ROSALES Facility:[facility] Start: 06-05-2022 End: 06-05-2022 Patient encounter procedure Patience Huitron [facility] Start: 06-03-2022 End: 06-04-[address] ELLIOT ROSALES Facility:[facility] Start: 05-22-2022 End: 05-23-[address] ELLIOT ROSALES Facility:[facility] Start: 04-30-2022 End: 04-30-2022 [facility] [employer] Other Start: 04-30-2022 Office outpatient ne w 30 minutes [facility] Start: 04-26-2022 End: 04-27-2022 ambulatory PHYLLIS GRANT Facility:[facility] Start: 04-03-2022 End: 06-25-[address] ELLIOT ROSALES Facility:[facility] Start: 02-15-2022 End: 02-28-2022 Evaluation and management of inpatient Christiane Olson Facility:[facility] Start: 02-15-2022 Encounter for preprocedural laboratory examination [facility] Start: 02-13-2022 End: 02-14-[address] ELLIOT ROSALES Facility:[facility] Start: 02-13-2022 End: 02-14-2022 Encounter for preprocedural laboratory examination DR ELLIOT ROSALES Facility:[facility] Start: 02-07-2022 End: 02-08-[address] ELLIOT ROSALES Facility:[facility] Start: 12-03-2021 End: 12-03-2021 Patient encounter procedure Patience Huitron [facility] Start: 10-01-2021 End: 10-01-2021 Patient encounter procedure Patience Huitron [facility] Start: 09-25-2021 End: 09-25-2021 Patient encounter procedure Ema Abhijeet Doyle MD Work Phone: Radiation Oncology Comment on above: History of prostate cancer (Primary Dx) Start: 09-19-2021 End: 09-19-2021 Lab Drop off Patience Huitron [facility] Start: 09-19-2021 End: 09-19-2021 Patient encounter procedure Patience Huitron [facility] Procedures Date Procedure Procedure Detail Performing Clinician Start: 10-14-2023 Screening colonoscopy Jefferson Rosales Work Phone: Start: 03-03-2023 Transurethral insert ion of prostatic urethral lift implant Patience Tomy Comment on above: 5 implants attempted . 5 seated. Start: 12-13-2022 Screening colonoscopy [facility] Work Phone: Start: 09-18-2022 End: 09-18-2022 PSA screening [facility] Provider Comment on above: Performed By: #### P SAD #### [facility] [address] [address] [address] Yoselin Rivera Start: 02-19-2022 Antibody screen Christiane urban Comment on above: Performed By: #### 3 2044 #### [facility] [address] Start: 01-21-2022 Open heart surgery Osiris Huitron Start: 10-01-2021 Transurethral cystoscopy Patience Huitron Start: 09-25-2021 Adult depression scr eening assessment NA Yanira DUNN Work Phone: Start: 09-19-2021 PSA screening [facility] Provi debbie Start: 06-23-2011 Brachytherapy Patience Huitron Cataract (morphologi c abnormality) Patience Huitron Colonoscopy Patience Huitron Plan of Treatment Date Care Activity Detail Author Start: 10-14-2023 [facility] Start: 09-25-2023 End: 11-25-2023 Prostate specific Ag [Mass/volume] in Serum or Plasma PSA/PROSTSPECAG DIAG Lab Routine History of prostate cancer Expected: 09/25/2023 (Approximate), Expires: 11/25/[address] [facility] Work Phone: Comment on above: Expected: 09/25/2023 (Approximate), Expires: 11/25/2023 Start: 02-21-2023 Influenza vaccination INFLUENZ A (Season Ended) [facility] Start: 12-13-2022 [facility] Start: 09-25-2022 Adult depression screening assessment DEPRESSION SCREENING [facility] Start: 09-25-2022 End: 11-25-2022 Prostate specific Ag [Mass/volume] in Serum or Plasma PSA/PROSTSPECAG DIAG Lab Routine History of prostate cancer Expected: 09/25/2022 (Approximate), Expires: 11/25/[address] [facility] Work Phone: Comment on above: Expected: 09/25/2022 (Approximate), Expires: 11/25/2022 Start: 06-23-2022 ADVANCE DIRECTIVE DISCUSSION ADVANCE DIRECTIVE DISCUSSION [facility] Start: 06-23-2022 DEPRESSION ASSESSMENT DEPRESSION ASS ESSMENT [facility] Start: 02-21-2022 Influenza vaccination INFLUENZ A (Season Ended) [facility] Start: 06-23-2021 ADVANCE DIRECTIVE DISCUSSION ADVANCE DIRECTIVE DISCUSSION [facility] Start: 11-08-2020 COVID-19 VACCINE (3 - Booster for Julito series) COVID-19 VACCINE (3 - Booster for Julito series) [facility] Start: 2011 PNEUMOVAX AGE 65 AND OVER WITH 5YR LOOKBACK (#1) PNEUMOVAX AGE 65 AND OVER WITH 5YR LOOKBACK (#1) [facility] Start: 1996 SHINGRIX VACCINE (1 of 2) SHINGRIX VACCINE (1 of 2) [facility] Start: 1991 COLOGUARD (FIT-DNA) COLOGUARD (FIT-D NA) [facility] Start: 1991 Colonoscopy COLONOSCOPY [facility] Start: 1991 COLORECTAL CANCER SCREENING COLORECTAL CANCER SCREENING [facility] Start: [address] COLONOGRAPHY [facility] Start: 1991 DIABETES SCREEN DIABETES SCREEN [facility] Start: 1991 FECAL OCCULT BLOOD FECAL OCCULT BLOO D [facility] Start: 1991 SIGMOIDOSCOPY SIGMOIDOSCOPY [facility] Start: 1981 LIPID SCREEN LIPID SCREEN [facility] Start: 1965 Urine microalbumin profile DTAP,TDAP,TD (1 - Tdap) [facility] Start: 1964 HEPATITIS C SCREENING HEPATITIS C SC REENING [facility] Start: 1952 PNEUMOCOCCAL: 65+ (1 - PCV) PNEUMOCOCCAL: 65+ (1 - PCV) [facility] Patient Education [facility] Work Phone: Renal function 1999 panel - Serum or Plasma [facility] Renal function 1999 panel - Serum or Plasma [facility] Immunizations Immunization Date Immunization Notes Care Provider Aristeo baldwin 05-05-2022 pneumococcal 20-corina nt conjugate vaccine Patience Huitron [facility] 04-21-2022 SARS-CoV-2 (COVID-19 ) [id number] Patience Huitron [facility] 04-27-2021 SARS-CoV-2 (COVID-19 ) mRNA-1273 vaccine Patience Huitron [facility] 03-21-2021 pneumococcal polysaccharide vaccine, 23 valent Patience Lue [facility] 01-24-2021 zoster vaccine recombinant Patience Lue [facility] 11-08-2020 zoster vaccine recombinant Patience Lue [facility] 09-13-2020 SARS-CoV-2 (COVID-19 ) Ad26 vaccine, recombinant Patience Lue [facility] 08-17-2020 SARS-CoV-2 (COVID-19 ) Ad26 vaccine, recombinant Patience Lue [facility] 11-19-2016 pneumococcal conjuga te vaccine, 13 valent Patience Lue [facility] Payers Date Payer Category Payer Self-pay 2019 Unknown MMO MMO MEDICARE SUPPLEMENT [id number] 2019-Present [phone] [address] [place] [address] Indemnity [id number] 2019 Unknown MMO MMO MEDICARE SUPPLEMENT [id number] 2019-Present [phone] [address] [place] [address] Indemnity [id number] 2011 Medicare MEDICARE MEDICAR E A AND B [id number] 2011-Present [phone] [address] [address] [place] [address] Medicare [id number] 2011 Medicare MEDICARE MEDICAR E A AND B [id number] 2011-Present [phone] [place] [address] Medicare [id number] 1959 Medicare [id number] 1959 Unknown [id number] 1946 Unknown [id number] 1946 Unknown [id number] 2.16.840.1.232493.3.579.2.593 1946 Unknown [id number] 2.16.840.1.259256.3.579.2.593 1946 Unknown [id number] 2.16.840.1.649286.3.579.2.593 1946 Unknown [id number] 2.16.840.1.612223.3.579.2.593 1946 Unknown [id number] 2.16.840.1.381713.3.579.2.593 1946 Unknown [id number] 2.16.840.1.550054.3.579.2.593 1946 Unknown [id number] 2.16.840.1.584628.3.579.2.593 1946 Unknown [id number] 2.16.840.1.530738.3.579.2.593 1946 Unknown [id number] 2.16.840.1.933845.3.579.2.593 1946 Unknown [id number] 2.16.840.1.397409.3.579.2.593 1946 Unknown [id number] 2.16.840.1.086758.3.579.2.727 1946 Unknown [id number] 2.16.840.1.978368.3.579.2.727 1946 Unknown [id number] 2.16.840.1.322717.3.579.2.727 1946 Unknown [id number] 2.16.840.1.907904.3.579.2.72 Unknown [employer] [id number] Unknown [id number] [id number] Social History Date Type Detail Facility Start: 09-19-2021 Tobacco smoking status Smoker (findi ng) [facility] Sex Assigned At Male [facility] Start: 10-08-2017 Tobacco smoking stat us INIS Smokes tobacco daily [facility] History of tobacco use [facility]igarette [facility] Start: 09-21-2020 Alcohol intake Current drinke r of alcohol (finding) [facility] Start: 1945 Sex Assigned At Not on file [facility] Start: 09-15-2021 End: 09-25-2021 Exposure to SARS-CoV-2 (event) Not sure [facility] Start: 10-08-2017 Tobacco use and exposure Smokeless tobacco non-user [facility] Start: 12-04-2022 End: 01-11-2025 Tobacco smoking status Ex-smoker (finding) [facility] Start: 1945 Sex Assigned At [facility] Tobacco smoking status Never [facility] Start: 09-01-2024 Sex Male (finding) [facility] Goals Date Patient Goal Desired Activity /State Functional Status Date Assessment Result Facility 07-23-2023 Functional Status N/A [facility] 04-16-2023 Functional Status N/A [facility] 12-04-2022 Functional Status N/A [facility] 06-05-2022 Functional Status N/A [facility] 12-03-2021 Functional Status N/A [facility] [place] Clinical Notes 09-19-2021 to 12-28-2024 Note Date & Type Note Facility 12-28-2024 Evaluation note Diagnosis Onset Date Resolution Atrial fibrillation acute December 28, 2024 9:59am Chronic kidney disease, stage 3a acute December 28, 2024 9:59am Hypertensive nephropathy acute December 28, 2024 9:59am Medicare annual wellness visit, subsequent acute December 28, 2024 9:59am Anemia acute January 11 9:50am Chronic kidney disease, stage 3a acute January 11, 2025 9:50am History of prostate cancer acute January 11, 2025 9:50am Hyperparathyroidism acute January 11, 2025 9:50am Hypertensive nephropathy acute January 11, 2025 9:50am Hyperuricemia acute January 11, 2025 9:50am Hypokalemia acute January 11 9:50am Iron deficiency acute December 9:50am Vitamin D deficiency acute January 11, 2025 9:50am [facility] Work Phone: 1(116) 240-726105-13-2025 NoteUT Electrophysiology Consult Note Reason for visit: PPM, CAD/CABG, HCM, NSVT s/p ICD 11/02/24 Pt noted to be in Afib as per [employer] web check. He is more tired in AF. 05/04/24 Patient underwent A-fib ablation on 12/11/2023 where in PVI plus CTI was performed. He was noted to have normal left atrial [...] dr. urrutia HPI: Ignacio Amin is a 79 y.o. year old with past medical history [...] negative. PMH: Past Medical History: Diagnosis Date Abnormal ECG Arrhythmia Atrial fibrillation (CMS/HCC) Cancer (CMS/HCC) Cardiomyopathy (CMS/HCC) Cardiomyopathy due to hypertension, without heart failure (CMS/HCC) Congenital heart disease Coronary arteriosclerosis Dyspnea on exertion HTN (hypertension) Hyperlipidemia Hypertrophic cardiomyopathy (CMS/HCC) Ischemic heart disease Myocardial infarction (CMS/HCC) PSH: Past Surgical History: Procedure Laterality Date [...] Sexually Abused: Not on file Depression: Not at risk (09/24/2022) Received from [facility] PHQ-2 PHQ-2 score: 0 Housing Stability: Not on file Utilities: Not on file Health Literacy: Not on file Allergies: Allergies Allergen Reactions [...] (20 mg) by mouth in the morning (more content not included)...[facility]05-06-2025 Note Cardiovascular Medicine [facility] SUBJECTIVE No chief complaint on file. Ignacio Amin is a 79 y.o. male here for a 6 month follow-up. Patient states he feels really good and has no cardiac complaints at this time. 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 Denies c/o CP, orthopnea, PND, LE edema, dizziness/LH, palpitations, syncope. He is still going to cardiac rehab once a week or so. He has some CALDERÓN with heavier exertion, this is unchanged for him. 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 History of heart attack Thrombophilia, associated with congenital heart disease, confirmed Anemia Benign prostatic hyperplasia with urinary obstruction Chronic duodenal ulcer Former smoker Erectile dysfunction Microscopic hematuria Malignant neoplasm of prostate (CMS/HCC) History of prostate cancer Urinary urgency Anticoagulated OAB (overactive bladder) Pre-operative cardiovascular examination Implantable cardioverter-defibrillator (ICD) in situ Paroxysmal atrial fibrillation (CMS/HCC) Hammer toe Past Medical History: Diagnosis Date Atrial fibrillation (CMS/HCC) Cardiomyopathy (CMS/HCC) Cardiomyopathy due to hypertension, without heart failure (CMS/HCC) Coronary arteriosclerosis Dyspnea on exertion HTN (hypertension) Hyperlipidemia Ischemic heart disease Family History Problem Relation Name Age of Onset Diabetes Mother Coronary artery disease Father Other (malignant tumor of colon) Sister Social History Tobacco Use Smoking status: Former Current packs/day: 0.00 Types: Cigarettes Quit date: 2021 Years since quittin.3 Smokeless tobacco: Never Substance Use Topics Alcohol use: Yes Comment: Occasional Drug use: Never Allergies Allergen Reactions Influenza Virus Vaccine Tv Split 2010- (60 Yr +) Other ROS OBJECTIVE Visit Vitals Smoking Status Former Medications: Current Outpatient Medications: apixaban (Eliquis) 5 [...] mouth in the morning., Disp: , Rfl: BP 139/85 (BP Location: Right arm, Patient Position: Sitting) Pulse 70 Ht 1.753 m (5' 9 ) Wt 90.7 kg (200 lb) SpO2 98% BMI 29.53 kg/m??? Physical Exam Constitutional: Appearance: Normal appearance. He [...] lower leg: No edema. Skin: General: Skin is warm and dry. Neurological: General: No focal deficit present. Mental Status: He is alert and oriented to person, place, and time. Psychiat (more content not included)...[facility] 06-29-2024 Evaluation note* Diagnosis Onset Date Resolution Status Admit Date Anemia acute June 29, 025 10:18am Chronic kidney disease, stag e 3a acute June 29 10:18am History of prostate cancer acute June 29, 2024 10:18am Hypertensive nephropathy acute June 29, 2024 10:18am Hypokalemia acute June 29, 2024 10:18am Laceration of thumb with dam age to nail acute September 01, 2024 8:52am [facility] Work Phone: [phone] 246-180211-12-2024 NoteUT Electrophysiology Consult Note Reason for visit: [...] the morning. 90 ta (more content not included)...[facility]11-12-2024 NotePatient here per cardiac rehab for concerns of bradycardia during his session on 04/05/2024. EKG was done in the office with HR of 69. Patient denies palpitations, chest pain, and bleeding on Eliquis. Review of Systems Cardiovascular: Positive for dyspnea on exertion (intermittent). All other systems reviewed and are negative.[facility] 10-14-2023 Procedure [facility]01-31-2024 Hospital Discharge instructions Patient Education 07/23/2023 10:46:29 [...] urethra. Follow these instructions at home: Take uggi-rjo-yhusfmv and prescription medicines only as told by [...] provider. Document Revised: 12/26/2021 Document Reviewed: 12/26/2021 [employer] Patient Education 2022 [employer]. Follow Up Care 04/16/2023 11:00:15 With:Tomy DUNN, RODERICK Cao, URO Address: When: Unknown Comments:PRN [facility] 01-23-2024 Evaluation note* Encounter Date Diagnosis Assessment Notes Treatment Notes Treatment Clinical Notes Jun, Acute kidney injury (ICD-10 - [...] well controlled Jun, Hypokalemia (ICD-10 - E87.6) [employer] Other 11-27-2023 Evaluation note* Encounter Date Diagnosis Assessment Notes Treatment Notes Treatment Clinical Notes Apr, Visit for suture removal (ICD-10 - Z48.02) Area cleaned and sutures removed. Pt tolerated well. [employer] Other 10-25-2023 Hospital Discharge instructions Patient Education [...] urethra. Follow these instructions at home: Take mscq-ngg-sgxmyjh and prescription medicines only as told by [...] provider. Document Revised: 12/26/2021 Document Reviewed: 12/26/2021 [employer] Patient Education 2022 [employer]. Follow Up Care 03/03/2023 10:13:49 With:Tomy DUNN, RODERICK Cao, URO Address: When:Within 3 Month(s) [facility] 09-11-2023 Note [id number]:127[facility] 03-03-2023 Hospital Discharge instructions Patient Education 03/03/2023 10:03:09 Tomy - Urolift Post-Op Instructions (CUSTOM) [facility] [place] [place] Post-Operative Instructions for UroLift After your [...] Up Care 02/12/2023 10:35:26 With:Patience Huitron Address: [address] [place] [address] [address] [phone] Business (1) When: Unknown Comments:Office to schedule follow up in 1 month with [facility]08-08-2023 Evaluation note* Encounter Date Diagnosis Assessment Notes [...] Currently on metoprolol. Blood pressures well controlled [employer] Other [id number] Procedure [facility]06-14-2023 Hospital Discharge instructions Patient Education 12/04/2022 [...] urethra. Follow these instructions at home: Take nanw-sri-pkkucdc and prescription medicines only as told by [...] provider. Document Revised: 12/26/2021 Document Reviewed: 12/26/2021 [employer] Patient Education 2022 [employer]. Follow Up Care 06/05/2022 11:04:10 With:Tomy DUNN, RODERICK Cao, URO Address: When: Unknown [facility] 04-04-2023 NoteHNO ID: [id number] Author: Ema Doyle MD Service: ? Author [...] well as active information included in the EMR.[facility] 09-24-2022 History of Present illness Narrative* Ema [...] included in the EMR. [facility]* Nurys Saleem RN - 09/24/2022 1:06 PM EDT AUA 3 Nurys Saleem RN [facility] Evaluation note* Encounter Date Diagnosis Assessment [...] and rare diarrhea on his recent trip. [employer] Other 03-06-2023 Evaluation note* Encounter Date Diagnosis Assessment Notes Treatment Notes Treatment Clinical Notes Aug, Diarrhea, unspecified type (ICD-10 - R19.7) [employer] Other 02-27-2023 Evaluation note* Encounter Date Diagnosis Assessment Notes Treatment Notes Treatment Clinical Notes Jul, Diarrhea, unspecified type (ICD-10 - R19.7) No known sick contacts. Traveling on a cruise soon. Agrees to try rx med, call if no improvement. Discussed potential stool culture or GI referral. [employer] Other 02-21-2023 Evaluation note* Encounter Date Diagnosis [...] g/dL. I asked the patient to take jyrf-xwh-rnelfhk iron supplement once daily. I will check [...] Currently on metoprolol. Blood pressures well controlled [employer] Other 12-14-2022 Hospital Discharge instructions Patient Education [...] urethra. Follow these instructions at home: Take kjfl-csf-kvhwtng and prescription medicines only as told by [...] 06/09/2006 Document Revised: 05/04/2019 Document Reviewed: 07/14/2017 [employer] Patient Education 2020 [employer]. 06/05/2022 10:50:10 Benign Prostatic Hyperplasia Benign Prostatic [...] urethra. Follow these instructions at home: Take txfj-qpt-typjtpv and prescription medicines only as told by [...] 06/09/2006 Document Revised: 05/04/2019 Document Reviewed: 07/14/2017 [employer] Patient Education [email or web address] Follow Up Care 12/03/2021 14:03:57 With:Tomy DUNN, RODERICK Cao, URO Address: When:6 months Comments:no labs [facility] 11-08-2022 Evaluation note* Encounter Date Diagnosis Assessment [...] follow-up with the patient in 3 months. [employer] Other 10-07-2022 NoteMR#: [id number] I [facility] Pt. Name: Ignacio Amin Admitted: 02/15/2022 Discharged: [...] who follows with Dr. Saeed in the [facility]. Over the past few months, [...] performed at bedside to assess function. Discontinued [place]-Sundar catheter. Oxygen requirements were beginning to be [...] AT DISCHARGE: Good. Stable. DISCHARGE DISPOSITION: [facility] [place]. DISCHARGE MEDICATIONS: 1. Amiodarone 200 mg tablet [...] regarding the ca (more content not included)...[facility]06-13-2022 Hospital Discharge instructions Patient Education 12/03/2021 13:54:59 [...] including vitamins, herbs, eye drops, creams, and oixb-xgo-fatrdhh medicines. Any problems you or family members [...] provider tells you to take them. Taking gypr-lwf-htkbnwc medicines, vitamins, herbs, and supplements. Eating and [...] 06/09/2006 Document Revised: 09/29/2019 Document Reviewed: 03/10/2019 [employer] Patient Education 2019 [employer]. Follow Up Care 10/01/2021 09:30:13 With:Tomy DUNN, RODERICK Cao, URO Address: [address], [place] [address] [phone] When:Within 6 Month(s) Comments:with IPSS [facility] 04-11-2022 Hospital Discharge instructions Patient Education 10/01/2021 [...] Up Care 09/19/2021 10:38:31 With:Patience Huitron Address: [employer] [address] [phone] Business (1) When: Unknown Comments:Call for followup appointment in 2-3 months With:Patience Huitron Address:Unknown When: Unknown [facility]04-05-2022 History of Present illness Narrative* G [...] included in the EMR. [facility] Note* Nurys Saleem RN - 09/25/2021 1:10 PM EDT AUA 12 Nurys Saleem RN [facility] Hospital Discharge instructions Patient Education 09/19/2021 [...] who: Are older than age 65. Are -[place]. Are obese. Have a family history of [...] cells. Follow these instructions at home: Take nppr-pod-lbveboe and prescription medicines only as told by [...] 06/09/2006 Document Revised: 05/22/2018 Document Reviewed: 02/17/2017 [employer] Patient Education 2020 [employer]. Follow Up Care 03/14/2021 14:47:29 With:Tomy DUNN, RODERICK Cao, URO Address: [address] [place] [address] [phone] Business (1) When: Unknown [facility] evaluation + Plan note Future Appointments Appointment Date:09/24/2021 09:15:00 AM Scheduled Provider: Location:[facility] Appointment Type:Urology CALL PAT FT Appointment Date:10/01/2021 09:30:00 AM Scheduled Provider: Location:[facility] Appointment Type:Urology FT [facility] evaluation + Plan note Future Appointments Appointment Date:09/24/2021 09:15:00 AM Scheduled Provider: Location:[facility] Appointment Type:Urology CALL PAT FT Appointment Date:10/01/2021 09:30:00 AM Scheduled Provider: Location:[facility] Appointment Type:Urology FT Diagnostic Tests Pending * Urine Culture [facility]ments Appointment Date:12/03/2021 01:00:00 PM Scheduled Provider:Patience Huitron MD Location:[facility] App[facility] Future Appointments Appointment Date:06/05/2022 09:15:00 AM Scheduled Provider:Patience Huitron MD Location:[facility] Appointment Type:URO Office Visit [facility] Evaluation + Plan note Future Appointments Appointment Date:12/04/2022 09:15:00 AM Scheduled Provider:Patience Huitron MD Location:[facility] Appointment Type:URO Office Visit [facility] evaluation + Plan note Future Appointments Appointment Date:04/16/2023 09:45:00 AM Scheduled Provider:Patience Huitron MD Location:[facility] Appointment [facility] Future Appointments Appointment Date:07/23/2023 09:45:00 AM Scheduled Provider:Patience Huitron MD Location:[facility] Appointment Type:URO Office Visit [facility] evaluation note* Diagnosis History of prostate cancer- Primary Personal history of malignant neoplasm of prostate documented in this encounter [facility] Other Evaluation note* Diagnosis History of prostate cancer- Primary Personal history of malignant neoplasm of prostate documented in this encounter [facility] noteNo assessment information [facility] Work Phone: Evaluation note* Diagnosis Onset Date Resolution Status Admit Date Atrial fibrillation acute December 28, 2024 9:59am Chronic kidney disease, stage 3a acu te December 28, 2024 9:59am Hypertensive nephropathy acute December 28, 2024 9:59am Medicare annual wellness vis it, subsequent acute December 28, 2024 9 :59am [facility] Work Phone: History and physical note Author Yung Yang [facility] December 13, 2022 10:31am Note Date/Time December 13, 2022 10:3 1am [facility] [address] [place] [address] Gastroenterology H&P Signed Patient: Ignacio Amin MR#: [id number] : 1945 Acct:[id number] Age/Sex: 77 / M Adm Date: 3 Loc: Room: Type: [facility] Attending Dr: Yung Yang MD Copies [...] signed by Yung Yang MD> 12/13/22 1031 [facility] Work Phone: History and physical note Author Yung Yang [facility] October 14, 2023 8:20am Note Date/Time October 14, 2023 8:2 0am [facility] [address] [place] [address] Gastroenterology H&P Signed Patient: Ignacio Amin MR#: [id number] : 1945 Acct:[id number] Age/Sex: 78 / M Adm Date: 4 Loc: Room: Type: [facility] Attending Dr: Yung Yang MD Copies [...] Yang M.D. Documented By: Yung Yang MD 10/14/23 0819 Signed By: <Electronically signed by Yung Yang MD> 10/14/23 0820 [facility] Work Phone: history general Narrative - Reported* Type Description Date [...] PROSTATE CANCER Surgical History 1 HEART STENT 2007 Surgical History DefibRILLATOR placement Surgical History HEART CATH 03/2016 Surgical History TEETH Surgical History BILATERAL HAND SURGERY Surgical History EGD TUMOR REMOVAL 07/2010 Surgical History SEED IMPLANT IN PROSTATE Surgical History CARDIOVERSION 03/03/22 Hospitalization History SEE ABOVE [employer] Other [facility] general Narrative - Reported* Type Description Date [...] PROSTATE CANCER Surgical History 1 HEART STENT 2007 Surgical History DefibRILLATOR placement Surgical History HEART CATH 03/2016 Surgical History TEETH Surgical History BILATERAL HAND SURGERY Surgical History EGD TUMOR REMOVAL 07/2010 Surgical History SEED IMPLANT IN PROSTATE Surgical History CARDIOVERSION 03/03/22 Surgical History Triple Bi pass surgery 01/2022 Hospitalization History SEE ABOVE [employer] Other Hishuzs general Narrative - Reported* Type Description Date [...] PROSTATE CANCER Surgical History 1 HEART STENT 2007 Surgical History DefibRILLATOR placement Surgical History HEART CATH 03/2016 Surgical History TEETH Surgical History BILATERAL HAND SURGERY Surgical History EGD TUMOR REMOVAL 07/2010 Surgical History SEED IMPLANT IN PROSTATE Surgical History CARDIOVERSION 03/03/22 Surgical History Triple Bi pass surgery 01/2022 Surgical History SUTURES IN LEFT THUMB 2022 Hospitalization History SEE ABOVE [employer] Other Hospital course Narrative No data available for this section [facility] Discharge instructions No data available [facility] this [facility] Additional Instructions DISCHARGE INSTRUCTIONS FOR [...] months -Follow up with PCP. -Office number [phone]. [facility] Work Phone: Progress note No data available for this section [facility] Reason for referral (narrative)No reason for referral information availableUniversity [facility]als [facility] Work Phone: Summary Purpose Family History No Family History [...] accident (CVA) Unknown sister Malignant neoplasm Unknown Relationship Condition Age at Onset Recorded Date/T kathy sister Malignant neoplasm of colon Unknown father Cardiovascular disease Unknown brother Myocardial infarction Unknown brother Heart disease Unknown Unknown father Unknown family member Unknown mother Unknown Cerebrovascular accident (CVA) Unknown sister Malignant neoplasm Unknown Advance Directives No Advanced Directives Records Found Advance Directive Response Recorded Date/ Time Advance Directives No December 11 10:12am Reason for Referral Reason *Waiting for appt Former [facility] pt - due for screening Diagnosis 1 Screening for colon cancer (Z12.11) Referral Organization [facility] annette Referring Provider First Name Elliot Referring Provider Last Name Fran Referring Provider Specialty Family Medi cine Referred Organization [facility] Gastroenterolo gy Referred Provider Yung Yang Referred Address [address] [place] [id number] Referred Provider Specialty Gastroentero logy Referral Priority Routine General Notes Christine Moran 12:25:45 PM >received today, sent P2P Chief Complaint and Reason for Visit Chief Complaint Screening Chief Complaint hx of colon polyps hx of colon polyps Chief Complaint Admit Date RENAL 1 year follow up June 29, 2024 10:18am Amb Documentation August 30, 2024 10: 12am [facility] f/u laceration/avulsion September 01, 2024 8:52am Reason for Visit Admit Date Anemia June 29, 2024 10 :18am Chronic kidney disease, stage 3a June 29, 2024 10:18am History of prostate cancer June 29, 2024 10:18am Hypertensive nephropathy June 29 10:18am Hypokalemia June 29, 2024 10 :18am Laceration of thumb with damage to nail September 01, 2024 8:52am Chief Complaint Admit Date wellness December 28, 2024 9:59a m Reason for Visit Admit Date Atrial fibrillation December 28, 2024 9:59a m Chronic kidney disease, stage 3a December 9:59am Hypertensive nephropathy December 28, 2024 9:59am Medicare annual wellness visit, subseque nt December 28, 2024 9:59am Chief Complaint Admit Date wellness December 28, 2024 9:59a m RENAL 6 MONTH F/U January 11, 2025 9:50 am Reason for Visit Admit Date Atrial fibrillation December 28, 2024 9:59a m Chronic kidney disease, stage 3a December 9:59am Hypertensive nephropathy December 28, 2024 9:59am Medicare annual wellness visit, subseque nt December 28, 2024 9:59am Anemia January 11, 2025 9:50 am Chronic kidney disease, stage 3a January 112024 9:50am History of prostate cancer January 11 9:50am Hyperparathyroidism January 11, 2025 9:50 am Hypertensive nephropathy January 11, 2025 9:50am Hyperuricemia January 11, 2025 9:50 am Hypokalemia January 11, 2025 9:50 am Iron deficiency January 11, 2025 9:50 am Vitamin D deficiency January 11, 2025 9:5 0am Additional Source Comments Source Comments (unrecognize d section and content) In the event this informatio n is protected by the Federal Confidentiality of Alcohol and Drug Abuse Patient Records regulations: The Federal rules restrict any use of the information to criminally investigate or prosecute any alcohol or drug abuse patient.[facility] the event this information is protected by the Federal Confidentiality of Alcohol and Drug Abuse Patient Records regulations: The Federal rules restrict any use of the information to criminally investigate or prosecute any alcohol or drug abuse patient.[facility] Reason for Visit (unrecogniz ed section and content) Reason Comments Prostate Cancer Care Teams (unrecognized sec tion and content) Team Status: Active Member Role Status Dates Elliot Rosales MD Primary Care Provider Active Team Status: Inactive Member Role Status Dates Elliot Rosales MD Primary Care Provider Active Start: December 28, 2024 End: December 28, 2024 Elliot Rosales MD Attending Provider Active St art: December 28, 2024 End: December 28, 2024 Team Status: Active Member Role Status Dates Elliot oRsales MD Primary Care Provide r, Attending Provider [...] Provider Act ata Start: October 14, 2023 Assistant Winemaker Relationship Specialty Start Date End Date Elliot Rosales MD [address] [place] [id number] PCP - General Family Practice 10/02/16 Assistant Winemaker Relationship Specialty Start Date End Date Elliot Rosales MD [address] [place] [address] PCP - General Family Medicine 10/02/16 Team Status: Inactive Member Role Status Dates Yung Yang MD Attending Provider Active Elliot Rosales MD Primary Care Provider Active Team Status: Active Member Role Status Dates Elliot Rosales MD Primary Care Provider Active Start: June 21, 2024 Jenifer Jensen MD Attending Provider Active Star t: June 21, 2024 Team Status: Inactive Member Role Status Dates Elliot Rosales MD Primary Care Provider Active Start: June 29, 2024 End: June 29, 2024 Jenifer Jensen MD Attending Provider Active Star t: June 29, 2024 End: June 29, 2024 Team Status: Active Member Role Status Dates Elliot Rosales MD Primary Care Provider Active Start: August 30, 2024 Opal Nagel CMA Attending Provider Active Start: August 30, 2024 Team Status: Inactive Member Role Status Dates Elliot Rosales MD Primary Care Provide r, Attending Provider Active Start: September 01, 2024 End: September 01, 2024 Team Status: Active Member Role Status Dates Elliot Rosales MD Primary Care Provider Active Start: January 03, 2025 Jenifer Jensen MD Attending Provider Active Star t: January 03, 2025 Team Status: Inactive Member Role Status Dates Elliot Rosales MD Primary Care Provider Active Start: January 11, 2025 End: January 11, 2025 Jenifer Jensen MD Attending Provider Active Star t: January 11, 2025 End: January 11, 2025 (unrecognized sect ion and content) No Status Records FoundNo Status Records FoundNo Status Records FoundNo Status Records FoundNo Status Records FoundNo Status Records Found INFORMATION SOURCE (unrecogn ized section and content) DATE CREATED AUTHOR 04/01/[address] [facility] DATE CREATED AUTHOR AUTHOR'S ORGANIZ ATION 09/27/2022 [facility] DATE CREATED AUTHOR AUTHOR'S ORGANIZ ATION 10/05/2022 [facility] DATE CREATED AUTHOR AUTHOR'S ORGANIZ ATION 07/30/2023 [facility] DATE CREATED AUTHOR AUTHOR'S ORGANIZ ATION 10/15/2023 [facility] DATE CREATED AUTHOR AUTHOR'S ORGANIZ ATION 03/14/2025 [facility] Goals (unrecognized section and content) Goals may be documented in a n alternate section FOR RECORDS PERTAINING TO PATIENTS WHO ARE [...] BE BASED ON THE PRIMARY CLINICAL RECORDS. [facility] [employer] [facility]. provides no warranty or guarantee of the accuracy or completeness of information in this document.
[2025-03-15 11:50] LABS: Hematocrit 45.5 % (42.0-54.0); Hemoglobin 14.5 g/dL (14.0-18.0); Immature Granulocytes Abs Auto 0.06 10^3/uL (0.00-0.03); Immature Granulocytes Pct Auto 1.1 % (0.0-0.5); Lymphocytes Absolute Auto 1.0 10^3/uL (1.2-3.8); Mean Corpuscular HGB Conc 31.9 g/dL (29.9-35.2); Mean Corpuscular Hemoglobin 29.5 pg (25.9-34.0); Mean Corpuscular Volume 92.5 fL (80.0-94.0); Platelet Count 142 10^3/uL (150-450); Red Blood Count 4.92 10^6/uL (4.70-6.10); White Blood Count 5.4 10^3/uL (4.0-11.0)
[2025-03-15 13:44] LABS: Anion Gap 12.5; Blood Urea Nitrogen 27.0 mg/dL (7.0-18.0); Calcium 9.9 mg/dL (8.5-10.1); Carbon Dioxide 30.3 mmol/L (21.0-32.0); Chloride 105 mmol/L (98-107); Estimated GFR (African America >60 (>=60 mL/min/1.73m^2); Estimated GFR (Non-African Ame 56 (>=60 mL/min/1.73m^2); Glucose 87 mg/dL (74-106); Potassium 4.8 mmol/L (3.5-5.1); Sodium 143 mmol/L (136-145)
== END 2025-03-15 11:19 | disposition home or self-care (01) ==
LOC: LAB 11:21
PROVIDERS: PCP Family Medicine; Visit Provider Internal Medicine Cardiovascular Disease
DX: I48.0 Paroxysmal atrial fibrillation (principal)
CPT/HCPCS: 36415; 80048; 85025

== ENCOUNTER 2025-06-20 10:17 | Outpatient (OUT) | payer MEDICARE, OTHER, SELFPAY ==
--- OUTSIDE RECORDS SUMMARY | 2025-06-20 10:21 | XMS_ITS | Clinical Summary ---
Author Organization [facility] Address [address] [place] [address] Care Team Providers Care Maintenance Shop Clerk Name Role Phone Unavailable Primary Care Provider Unavailabl e Social History Tobacco UseTypesPacks/DayYears UsedDateSmoking Tobacco: Never AssessedSex and Gender InformationValueDate RecordedSex Assigned at BirthNot on fileLegal Sex Male09/04/2022 6:57 PM EDTGender IdentityNot on fileSexual OrientationNot on file Plan of Treatment Not on file Insurance
--- OUTSIDE RECORDS SUMMARY | 2025-06-20 10:21 | XMS_ITS | Clinical Summary ---
Author Organization [facility] Address [address] [place] [address] Care Team Providers Care Bulldozer Press Operator Name Role Phone Unavailable Primary Care Provider Unavailabl e Source Comments The following information is NOT included in Care Everywhere downloads:Psychiatric notes, ECG results, Cardiac Rehab notes, Pulmonary Function notes, data from SmartEmbedded Chats (includes but not limited toPregnancy data,audiograms, eye exams, pre-surgical evaluation notes, well-child exam data).[facility] Allergies Active AllergyReactionsCriticalityNoted DateCommentsInfluenza Vac TypRash 07/24/2010 Medications No known medications Active Problems ProblemNoted DateDiagnosed DateChronic duodenal ulcer without mention of hemorrhage, perforation, or ewwioyclikh93/15/2011 Resolved Problems ProblemNoted DateDiagnosed DateResolved DateDuodenal hdyhdu13 Social History Tobacco UseTypesPacks/DayYears UsedDateSmoking Tobacco: Never AssessedSex and Gender InformationValueDate RecordedSex Assigned at BirthNot on fileLegal Sex Male04/26/2012 1:12 PM ESTGender IdentityNot on fileSexual OrientationNot on file Last Filed Vital Signs Vital SignReadingTime TakenCommentsBlood Rqdybskt37/6403 11:44 AM EDT Ignbl5688/30/2011 11:44 AM ANLUzlgqxfpmhx73 ??C (96.8 ??F)09/19/2010 11:29 AM EDTRespiratory Byzt509809/19/2010 11:44 AM EDTOxygen Jvinozbiuf93%09/19/2010 11:44 AM EDTInhaled Oxygen Concentration--Wrvsfc05.6 kg (180 lb)08/07/2010 11:48 AM BXYUgcecg974.1 cm (5' 10.5 )08/07/2010 11:48 AM ESTBody Mass Index25.46 08/07/2010 11:48 AM EST Plan of Treatment Health MaintenanceDue DateLast DoneCommentsHepatitis C Unngugga31/14/1965Tdap Ssfyyba9207/06/1964Hepatitis A (HAV) Vaccine (optional start 19+ years)1965 Tetanus (Td or Tdap) Ociwdik5207/06/1965Pneumococcal Vaccine(s) (50+ yrs) (1 of 1 - PCV)1996Shingles (RZV) Vaccine (1 of 2)1996Hepatitis B (HBV) Vaccine (optional start 60+ years)2006RSV vaccine (adult) (1 - 1-dose 75+ series)2COVID-19 Vaccine (1 - 2024- season)2025Influenza Vaccine (#1)2025 Insurance Advance Directives * Full Code (Latest Code Status on File) Date ActivatedDate InactivatedComments07/27/2010 3:44 PM2 2:18 PM
--- OUTSIDE RECORDS SUMMARY | 2025-06-20 10:21 | XMS_ITS | Clinical Summary ---
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 Name Role Phone Karina Peters MD Primary Care Provider [phone] Allergies Active AllergyReactionsCriticalityNoted DateCommentsInfluenza Virus Vaccine Tv Split 2010- (60 Yr +)Xkcfyeyqfei74/14/2015 Medications MedicationSigDispense QuantityRefillsLast FilledStart DateEnd DateStatus metoprolol succinate ER (TOPROL XL) 50 mg 24 hr tablet Take 50 mg by mouth once daily.Active atorvastatin (LIPITOR) 80 mg tablet Take 80 mg by mouth once daily.Active aspirin, enteric coated (ASPIRIN, ENTERIC COATED) 81 mg EC tablet Take 81 mg by mouth once daily.Active MULTIVITAMIN ORAL Take by mouth.Active VIT C/VIT E/LUTEIN/MIN/OMEGA-3 (OCUVITE ORAL) Take by mouth.Active tamsulosin (FLOMAX) 0.4 mg Take 0.4 mg by mouth once daily.09/17/2021ctive MYRBETRIQ 25 mg Tb24 Take 25 mg by mouth once daily.09/19/2021ctive furosemide (LASIX) 20 mg tablet Take 10 mg by mouth once daily.Active potassium chloride SR (MICRO-K) 10 mEq CR capsule Take 10 mEq by mouth twice daily.Active apixaban (ELIQUIS) 5 mg tab(s) Take by mouth twice daily.Active diphenoxylate-atropine (LOMOTIL) 2.5-0.025 mg per tablet Take 1 tablet by mouth four times daily as needed.Active melatonin 10 mg tab Take by mouth daily at bedtime.Active acetaminophen (TYLENOL) 325 mg tablet Take 650 mg by mouth every 6 hours as needed.Active Active Problems ProblemNoted DateDiagnosed DateHistory of prostate aimyqp3410/04/2015 Family History Medical HistoryRelationCommentsOvarian cancerSisterRelationStatusCommentsSister Social History Tobacco UseTypesPacks/DayYears UsedDateSmoking Tobacco: Every DayCigarettes Smokeless Tobacco: Never Tobacco Cessation:Ready to Q uit: No; Counseling Given: Yes Alcohol UseStandard Drinks/WeekCommentsYes0 (1 standard drink = 0.6 oz pure alcohol)PHQ-2AnswerDate RecordedPHQ-2 xquxw193rea Deprivation Index AnswerDate RecordedNational Score (1-100), lower number is lower risk62 09/24/2022State Score (1-10), lower number is lower riskNot on file09/24/2022 Data from: https://www.neighborhoodatlas.[facility]/. Last address used for [address] [place] [address]/24/2022Sex and Gender InformationValueDate Recorded Sex Assigned at BirthNot on fileLegal SvlQcnk15/02/2012 10:15 AM ESTGender IdentityNot on fileSexual OrientationNot on file Last Filed Vital Signs Vital SignReadingTime TakenCommentsBlood Uuusokfh384/7904 1:03 PM EDT Fbeij3352/04/2023 1:03 PM MQJNhytklzhjrg19.2 ??C (97.1 ??F)09/24/2022 1:03 PM EDTRespiratory Hbml984309/24/2022 1:03 PM EDTOxygen Dskhnwbfdk966%09/24/2022 1:03 PM EDTInhaled Oxygen Concentration--Ucynip60 kg (189 lb 9.6 oz)09/24/2022 1:03 PM EDTHeight--Body Mass Index-- Plan of Treatment Health MaintenanceDue DateLast DoneCommentsAnxiety Bcyaadkll29/14/1965Depression Bfofbhobz73/14/1965Hepatitis C Xcjpepshs67/14/1965DTaP,Tdap,Td Vaccine (1 - Tdap)1965Pneumococcal Vaccine: 50+ (1 of 1 - PCV)1996Shingrix Vaccine (1 of 2)1996Medicare Annual Wellness Visit06/23/2011RSV Vaccine (1 - 1-dose 75+ series)2021dvance Directive Ncfogegpdq76/01/2025ovid-19 Vaccine (2024- season)503/, 08/17/2020Influenza Vaccine (#1)2025Diabetes Shnnyvheq72 Insurance Care Teams Team MemberRelationshipSpecialtyStart DateEnd Karina Peters MD [address] [place] [phone] PCP - GeneralFamily Medicine10/02/16
--- OUTSIDE RECORDS SUMMARY | 2025-06-20 10:32 | XMS_ITS | CCD ---
Author Organization [facility] Care Team Providers Care Supportive Employment Case Manager Name Role Phone ELLIOT ROSALES Primary Care [...] Primary Care Unavailable BAKHOUS, AZIZ Attending Unavailable CAMILA AZIZ Consulting Unavailable CAMILA, AZIZ Admitting Unavailable DR ELLIOT ROSALES Primary Care Unavailable TIBURCIOELEDiomedes, DR CRISTIANO Husain Attending Unavailable ENGKOSTAS, DR CRISTIANO Husain Consulting Unavailable ENGELEDiomedes, DR CRISTIANO Husain Admitting Unavailable ROSALES, DR ELLIOT Stein Primary Care Unavailable ELTAHAWY, EHAB Admitting Unavailable ELTAHAWY, EHAB Attending Unavailable ELTAHAWY, EHAB Consulting Unavailable Elliot Rosales MD Primary Care Provider [phone] Ema DOYLE Referring Unavailable Ema DOYLE Attending Unavailable ELLIOT ROSALES Primary Care Unavailable MD Yung Yang Attending Provider MD Elliot Rosales Primary Care Provider Patience Huitron Attending Unavailable Patience Huitron Attending Unavailable Patience Huitron Referring Unavailable Patience Huitron Referring Unavailable Patience Huitron Admitting Unavailable Patience Huitron Attending Unavailable Patience Huitron Attending Unavailable MD Elliot Rosales Primary Care Provider [phone] MD Yung Yang Attending Provider Elliot Rosales Primary Care Unavailable Asaad, Imad Admitting Unavailable Asaad, Imad Attending Unavailable Elliot Rosales Primary Care Unavailable Asaad, Imad Admitting Unavailable Asaad, Imad Attending Unavailable Elliot Rosales MD Primary Care Provider [phone] Elliot Rosales MD Attending Provider Jenifer Jensen MD Attending Provider [phone] JUSTIN URRUTIA Attending Unavailable JUSTIN URRUTIA Attending Unavailable JUSTIN URRUTIA Attending Unavailable JUSTIN URRUTIA Referring Unavailable JUSTIN URRUTIA Referring Unavailable JUSTIN URRUTIA Referring Unavailable GHADAJUSTIN Disla Referring Unavailable GHADAJUSTIN Disla Referring Unavailable JUSTIN URRUTIA Referring Unavailable LEE, AGUSTIN Referring Unavailable GHADA JUSTIN Admitting Unavailable JUSTIN URRUTIA Attending Unavailable JUSTIN URRUTIA Referring Unavailable LEE, AGUSTIN Referring Unavailable ELTAHAWY, EHAB Attending Unavailable JUSTIN URRUTIA Referring Unavailable Allergies Allergy ClassificationReported Allergen(s)Allergy TypeDate of OnsetReaction(s) Facility (10 sources)flu vaccines; Translations: [flu vaccines]Allergy to substance 96-44-4230MhhltebWmoijimuw [facility] (4 sources)Influenza Virus Vaccine Tv Split 2011-05 (60 Yr +); Translations: [INFLUENZA VIRUS VACCINE TV [id number] (60 YR +)]Drug Xcswfyjrjxa24-63-6719 [facility] ([facility] source)flu virus vaccine tv 2014- (18 yr and up),recombDrug allergy (disorder)14-33-0417Pio [facility] Repository (12 sources)Influenza Vac A&B Surf Ant AdjDrug lxxyxlh98-66-5272ckrp, vomiting [facility] (1 source)Flu Vaccine tvs 2011-05(65yr+)Drug allergy (disorder)88-51-7208Hnn [facility] Repository (1 source)No Known Medication Allergies; Translations: [No Known Medication Allergies]Propensity to adverse reactions (disorder)[facility] Repository (5 sources)Influenza Virus Vaccines; Translations: [Influenza Virus Vaccines] Allergy to daydcooyo40-06-2510Ypqsmfx ReactionBarnesville Hospital Medications Current Medications MedicationDrug Class(es)DatesSig (Normalized)Sig (Original)acetaminophen 500 mg oral tablet (20 sources)Start: 28-25-0030gldh 1 tablet by mouth every six hours as needed for painAcetaminophen 500 mg Tablet Active 500 MG PO Q6H as needed for Pain December 13, 2022 12:00am Complies with drug therapyStart: 46-00-8965zmfx 1 mg by mouth every six hoursTylenol Extra Strength 500 mg oral tablet mg tab(s), Oral, q6hr, Refills(s) 0 Start Date: 03/14/21 Status: Orderedtake 2 tablets by mouth every eight hoursAcetaminophen ER 650 MG 2 tablets as needed Orally every 8 hrs Active take 2 tablets by mouth every eight hours as neededAcetaminophen ER 650 MG 2 tablets as needed Orally every 8 hrs Activetake 2 tablets by mouth every six hours as neededacetaminophen (TYLENOL) 325 mg tablet Take 650 mg by mouth every 6 hours as needed. 0 ActiveComment on above:Take 650 mg by mouth every 6 hours as needed.Antiox.Mv No.62-Kfyo0l-EnkWkdd7q-Noz-Kkv (I-Caps) 280-10-2 mg Capsule (5 sources)Start: 42-57-3965ftvz 1 capsule by mouth once dailyAntiox.Mv No.49-Kibu3c-JtjEchy6s-Sdo-Aam (I-Caps) 280-10-2 mg Capsule Active 1 CAP PO Daily December 13, 2022 12:00am Complies with drug therapyStart: 56-10-3900vrgt 1 capsule by mouth once dailyAntiox.Mv No.25-Jfol1m-XprBlbq0b-Qbh-Kll (I-Caps) 280-10-2 mg Capsule Active 1 CAP PO Daily December 13, 2022 12:00amapixaban 5 mg oral tablet (19 sources)Factor Xa InhibitorStart: 94-68-9884nzab 1 tablet by mouth twice dailyApixaban (Eliquis) 5 mg tablet Active 5 MG PO Twice daily December 28, 2024 12:00am Complies with drugtherapyStart: 06-05-2022 End: 01-18-6208qjbw 1 tablet by mouth twice dailyApixaban (Eliquis) 5 mg tablet Discontinued 5 MG PO Twice daily December 13, 2022 12:00am September 7:07am take 1 tablet by mouth every twelve hoursEliquis 2.5 MG 1 tablet Orally Twice a day ActiveComment on above:Take by mouth twice daily.atorvastatin 80 mg oral tablet (20 sources)HMG-CoA Reductase InhibitorStart: 79-14-2808oygh 1 tablet by mouth once dailyAtorvastatin 80 mg tablet Active 80 MG PO Daily December 13, 2022 12:00am Complies with drug therapyComment on above:Take 80 mg by mouth once daily.atropine sulfate 0.025 mg / diphenoxylate hydrochloride 2.5 mg oral tablet (13 sources)Anticholinergic, Cholinergic Muscarinic Antagonist, Antidiarrheal Start: 45-00-3350Jwppwsymavlvf-Atropine (Lomotil) 2.5-0.025 mg tablet Active 1 TAB PO As Directed as needed for diarrhea October 14, 2023 12:00am Complies with drug therapyStart: 51-70-2259qzah 1 tablet by mouth every six hoursLomotil 2.5- 0.025 MG 1 tablet as needed Orally Four times a day for 10 days Aug, ActiveComment on above:Take 1 tablet by mouth four times daily as needed.Centrum Silver (9 sources)Start: 69-56-1607Gzcdvmg Silver Oral, Daily, Refill(s) 0 Start Date: 03/14/21 Status: Orderedcephalexin 500 mg oral capsule (3 sources)Cephalosporin AntibacterialStart: 99-10-9699tkia 1 capsule by mouth once dailyKeflex 500 mg Cap 500 mg = 1 cap(s), Oral, Daily, Start 1 day prior to procedure, # 2 cap(s), Refills(s) 0, [facility]acy: [facility], 180, cm, 09/19/21 9:42:00 EDT, Height/Length Dosing, 86, kg, 09/19/21 9:42:00 EDT, Weight Dosing Start Date: 09/19/21 Status: Orderedcholecalciferol 0.025 mg oral capsule (5 sources)Vitamin DStart: 23-35-9916avbm 1 capsule by mouth once daily Cholecalciferol (Vitamin D3) 25 mcg (1,000 unit) capsule Active 25 MCG PO Daily October 14, 2023 12:00am Complies with drug therapytake 1 tablet by mouth every twenty-four hoursVitamin D 25 MCG (1000 UT) 1 tablet Orally Once a day Active diazePAM 10 mg oral tablet (1 source)BenzodiazepineStart: 60-64-6354Aaumsu 10 mg Tab 10 mg = 1 tab(s), Oral, Once, PRN for anxiety, take 1 hour prior to scheduled procedure, # 1 tab(s), Refills(s) 0, [facility]acy: [facility], 180, cm, 12/04/22 9:13:00 EDT, Height/Length Dosing, 88, kg, 12/04/22 9:13:00 EDT, Weight Dosing Start Date: 02/12/23 Status: Orderedferrous sulfate 160 mg extended release oral tablet (4 sources)Start: 37-17-3894ewpp 1 tablet by mouth once dailyFerrous Sulfate, Dried (Slow Release Iron) 160 mg (50 mg iron) tablet extended release Active 160 MG PO Daily October 14, 2023 12:00am Complies with drug therapyfurosemide 20 mg oral tablet (20 sources)Loop DiureticStart: 81-39-8638wxox 1 tablet by mouth once daily Furosemide 20 mg tablet Active 20 MG PO Daily December 13, 2022 12:00am Complies with drug therapytake 10 mg by mouth once dailyfurosemide (LASIX) 20 mg tablet Take 10 mg by mouth once daily. 0 Activetake 1 tablet by mouth every twenty-four hoursFurosemide 40 MG 1 tablet Orally Once a day ActiveComment on above:Take 10 mg by mouth once daily.ICaps Areds 2 (9 sources)ICaps Areds 2 ActiveICaps with Lutein and Zeaxan oral tablet (4 sources)Start: 93-17-2690YKopn with Lutein and Zeaxan oral tablet Oral, Daily, Refill(s) 0 Start Date: 03/14/21 Status: Orderedmelatonin 10 mg oral tablet (15 sources)Start: 13-73-9610lkpi 1 tablet by mouth at bedtime as needed for sleepMelatonin 10 mg Tablet Active 10 MG PO Bedtime as needed for Sleep December 13, 2022 12:00am Complieswith drug therapytake 1 capsule by mouth every twenty-four hoursMelatonin 10 MG 1 tablet at bedtime as needed Orally Once a day Activetake 2 capsules by mouth every twenty-four hoursMelatonin 10 MG 2 tablets Orally Once a day Activetake 2 tablets by mouth once dailyMelatonin 10 MG 2 tablets Orally Once a day Activemelatonin 10 mg tab Take by mouth daily at bedtime. 0 Activetake 2 tablets by mouth once dailyMelatonin 5 MG 2 tablets Orally Once a day ActiveComment on above:Take by mouth daily at bedtime.24 hr metoprolol succinate 50 mg extended release oral tablet (20 sources)beta-Adrenergic BlockerStart: 98-53-9721lixo 1 tablet by mouth once dailyMetoprolol Succinate 50 mg tablet extended release 24 hr Active 50 MG PO Daily December 13, 2022 12:00am Complies with drug therapyComment on above:Take 50 mg by mouth once daily.Multivitamin preparation (9 sources)take 1 tablet by mouth once dailyMulti Vitamin - 1 tablet Orally Once a day MeynrpAszdvnrtsehd-Usiuepds-Wjvivf (Centrum Silver) Tablet (5 sources)Start: 19-01-3036pegn 1 tablet by mouth once daily Ygqrcasudmcs-Weibkkcq-Iwgsqk (Centrum Silver) Tablet Active 1 TAB PO Daily December 13, 2022 12:00am Complies with drug therapyStart: 68-54-5090onnq 1 tablet by mouth once dqhvuAkasbvsxalnn-Pbqmehab-Ehermx (Centrum Silver) Tablet Active 1 TAB PO Daily December 13, 2022 12:00ammicroencapsulated potassium chloride 20 meq extended release oral tablet (15 sources)Start: 23-71-6243guhm 1 tablet by mouth once dailyPotassium Chloride 20 mEq tablet,ER particles/crystals Active 20 MEQ PO Daily October 14, 2023 12:00am Complies with drug therapyStart: 91-12-0725Tcqxbthtk Chloride (Zeb-Hktc-Xnw M20) 20 mEq oral tablet, extended release Refills(s) 0 Start Date: 07/23/23 Status: Orderedtake 1 capsule by mouth every twenty-four hoursPotassium Chloride ER 10 MEQ 1 tablet with food Orally Once a day Activepotassium chloride SR (MICRO-K) 10 mEq CR capsule Take 10 mEq by mouth twice daily. 0 Activetake 1 tablet by mouth every twenty-four hoursPotassium Chloride ER 20 MEQ 1 tablet with food Orally Once a day ActiveComment on above:Take 10 mEq by mouth twice daily.Slow Release Iron 160 (50 Fe) MG (3 sources)take 1 tablet by mouth once dailySlow Release Iron 160 (50 Fe) MG 1 tablet Orally Once a day ActiveTurmeric extract (5 sources)Start: 53-54-1083omvg 1 mg by mouth once dailyTurmeric mg, Oral, Daily, Refill(s) 0 Start Date: 03/14/21 Status: OrderedUrinozinc Prostate Health Complex Classic (8 sources)Start: 29-75-7185Qdeounxxr Prostate Health Complex Classic Oral, Daily, Refill(s) 0 Start Date: 03/14/21 Status: OrderedVitamin D3 (1 source)Start: 03-10-8614Qagscnc D3 Refills(s) 0 Start Date: 07/23/23 Status: Ordered Completed/Discontinued Medications MedicationDrug Class(es)DatesSig (Normalized)Sig (Original)amiodarone hydrochloride 200 mg oral tablet (6 sources)Antiarrhythmictake 0.5 tablet by mouth once dailyAmiodarone HCl 200 MG 1/2 tablet Orally Once a day Not-Takingaspirin 81 mg delayed release oral tablet (20 sources)Platelet Aggregation Inhibitor, Nonsteroidal Anti-inflammatory Drug Start: 12-13-2022 End: 22-03-9857cqfc 1 tablet by mouth once dailyAspirin (Aspir-81) 81 mg Tablet,Delayed Release (Dr/Ec) Discontinued 81 MG PO Daily December 13, 2022 12:00am December 28, 2024 10:06amStart: 93-27-9939yzou 1 mg by mouth every four hoursaspirin 81 mg oral capsule mg cap(s), Oral, q4hr, Refills(s) 0 Start Date: 03/14/21 Status: OrderedComment on above:Take 81 mg by mouth once daily.cefdinir 300 mg oral capsule (3 sources)Cephalosporin AntibacterialStart: 11-04-2023 End: 21-62-9408hrqo 1 capsule by mouth twice dailyCefdinir 300 mg capsule Discontinued 300 MG PO Twice daily November 04, 2023 12:00am June 29, 2024 11:29am24 hr mirabegron 25 mg extended release oral tablet (20 sources)beta3-Adrenergic AgonistStart: 09-19-2021 End: 27-50-4465xaet 1 tablet by mouth once dailyMirabegron (Myrbetriq) 25 mg tablet extended release 24 hr Discontinued 25 MG PO Daily December 13, 2022 12:00am October 14, 2023 7:25amComment on above:Take 25 mg by mouth once daily. MULTIVITAMIN ORAL (2 sources)MULTIVITAMIN ORAL Take by mouth. 0 ActiveComment on above:Take by mouth.pantoprazole 20 mg delayed release oral tablet (6 sources)Proton Pump Inhibitortake 1 tablet by mouth every twenty-four hours Pantoprazole Sodium 20 MG 1 tablet Orally Once a day Not-Takingtamsulosin hydrochloride 0.4 mg oral capsule (20 sources)alpha-Adrenergic BlockerStart: 03-14-2021 End: 92-51-4014qrnr 1 capsule by mouth once dailyTamsulosin 0.4 mg capsule Discontinued 0.4 MG PO Daily December 13, 2022 12:00am January 11, 2025 9:56am Comment on above:Take 0.4 mg by mouth once daily.Vit C-E-Zinc Pf-Tduy-Bxr-Zeax 250 mg-200 unit -12.5 mg-1 mg capsule (3 sources)Start: 08-31-2024 End: 24-88-9807Mmg C-E-Zinc Mr-Rbwl-Ord-Zeax 250 mg-200 unit -12.5 mg-1 mg capsule Discontinued CAP PO August 12:00am December 28, 2024 10:07amStart: 42-94-8162Dfy C-E-Zinc Cz-Ykwg-Yzy-Zeax 250 mg-200 unit -12.5 mg-1 mg capsule Active CAP PO August 31, 2024 12:00amVIT C/VIT E/LUTEIN/MIN/OMEGA-3 (OCUVITE ORAL) (2 sources)VIT C/VIT E/LUTEIN/MIN/OMEGA-3 (OCUVITE ORAL) Take by mouth. 0 Active Comment on above:Take by mouth. Problems Active Problems Problem ClassificationProblemDateDocumented DateEpisodic/ChronicAcute and unspecified renal failure (9 sources)Acute kidney failure, unspecified; Translations: [ACUTE KIDNEY FAILURE UNSPECIFIED]Onset: 70-37-5178JqwygfchIdlxs myocardial infarction (15 sources)Myocardial ebwgfadxex87-00-7648JaaxianAitrzk of prostate (9 sources)Malignant tumor of -91-0961EzudtdqWyywls of prostate (20 sources)Personal history of malignant neoplasm of prostate; Translations: [History of malignant neoplasm ofprostate]Onset: 65-45-3659CibebphzMhabgmo dysrhythmias (10 sources)Paroxysmal atrial fibrillation; Translations: [Atrial fibrillation] Onset: 59-65-0524EoqgnazWzwerlu kidney disease (15 sources)Chronic kidney disease stage 3A ; Translations: [Chronic kidney disease, stage 3a]79-56-0669XmwfanzSaprvtx obstructive pulmonary disease and bronchiectasis (3 sources)Bronchitis; Translations: [Bronchitis, not specified as acute or chronic]79-32-6631OnwbiszmIvslfxepxf disorders (4 sources)Presence of automatic (implantable) cardiac defibrillator; Translations: [Encounter for adjustment and management of automatic implantable cardiac defibrillator]Onset: 58-75-8235RjrdaprXroaethm atherosclerosis and other heart disease (8 sources)Atherosclerotic heart disease of [place] coronary artery without angina pectoris; Translations: [Coronary atherosclerosis due to lipid rich plaque]Onset: 19-47-5532LjrxzedDkzniwdr atherosclerosis and other heart disease (3 sources)Presence of aortocoronary bypass graftEpisodicDeficiency and other anemia (13 sources)Anemia; Translations: [Anemia, unspecified]44-88-9190Idymzguo Deficiency and other anemia (4 sources)Anemia, unspecified; Translations: [Anemia, unspecified]EpisodicFluid and electrolyte disorders (6 sources)Hypokalemia; Translations: [Hypokalemia]EpisodicGastroduodenal ulcer (except hemorrhage) (6 sources)Chronic duodenal ulcerOnset: 337646-12-9518UtnfxeuNnndirlyyhnqp symptoms and ill-defined conditions (20 sources)Microscopic hematuria; Translations: [Other microscopic hematuria] Onset: 01-32-6292PcdclgfqQvlehqrswus of prostate (17 sources)Benign prostatic hypertrophy with outflow obstruction; Translations: [Benign prostatic hyperplasia with lower urinary tract symptoms]Onset: 61-27-5954LeozrifLsjqscteyqrr with complications and secondary hypertension (11 sources)Hypertensive heart disease without heart failure; Translations: [Hypertensive renal disease]Onset: 95-89-6304EldhnjjRinpjqpqtps deficiencies (2 sources)Vitamin D deficiency; Translations: [Vitamin D deficiency, unspecified]54-31-0961NkvgsvtEykrwroixka deficiencies (2 sources)Iron deficiency; Translations: [Iron deficiency]00-20-3233Vrtnihmr Open wounds of extremities (4 sources)Laceration of thumb; Translations: [Laceration without foreign body of unspecified thumb with damage to nail, initial encounter]56-96-8221Wuyjpomi Other aftercare (5 sources)Long-term current use of anticoagulant; Translations: [snf (current) use of anticoagulants]Onset: 02-18-5807HonxcyxzZesui aftercare (1 source)Encounter for removal of suturesEpisodicOther and ill-defined heart disease (9 sources)Heart quayvaz59-99-5930NmzwutaIafep diseases of bladder and urethra (3 sources)Detrusor overactivity; Translations: [Overactive bladder]Onset: 57-31-9753PaudjfoJqlrv diseases of bladder and urethra (4 sources)Overactive zsujwbf13-72-5215QqfdlwcCakmy diseases of kidney and ureters (3 sources)Urinary tract obstruction; Translations: [Other obstructive and reflux uropathy]Onset: 20-78-4160DnufkgxgSwraf endocrine disorders (2 sources)Hyperparathyroidism; Translations: [Hyperparathyroidism, unspecified] 92-72-5554ObiapdpUlzlq gastrointestinal disorders (2 sources)Diarrhea, unspecifiedEpisodicOther gastrointestinal disorders (1 source)Functional diarrheaEpisodicOther male genital disorders (1 source)Erectile dysfunction following radiation therapy; Translations: [Erectile dysfunction due to and following radiation therapy]Onset: 09-19-2021 ChronicOther male genital disorders (9 sources)Pjqlhhyry86-34-2507TzllrslBlndw nutritional; endocrine; and metabolic disorders (2 sources)Hyperuricemia; Translations: [Hyperuricemia without signs of inflammatory arthritis and tophaceous disease]02-56-6957ZvooeyejDvdpm screening for suspected conditions (not mental disorders or infectious disease) (3 sources)Abnormal result of other cardiovascular function study; Translations: [Encounter for screening for malignant neoplasm of colon]Onset: 02-15-2022 EpisodicPeri-; endo-; and myocarditis; cardiomyopathy (except that caused by tuberculosis or sexually transmitted disease) (2 sources)Other hypertrophic cardiomyopathy; Translations: [Other hypertrophic cardiomyopathy]Onset: 65-95-3669TiejxlaAbmybkqcz and history of mental health and substance abuse codes (2 sources)Personal history of nicotine dependence; Translations: [History of nicotine dependence]87-16-0213EdcbscqvTzfxufcgj-related disorders (9 sources)Rwbnvl18-72-3516ZdwsdzuHyyepcv on above:Added secondary to documentation in Social History.Unclassified (5 sources)Drug therapy qyklwtv35-85-3974Cfdhyomhoyft (1 source)CONTACT W/AND (SUSP) EXPOS COVID-19; Translations: [CONTACT W/AND (SUSP) EXPOS COVID-19]Onset: 48-47-9593Wrehktnarxtr (1 source)Encounter for screening for malignant neoplasm of colon; Translations: [Encounter for screening formalignant neoplasm of colon]Onset: 12-13-2022 Unclassified (2 sources)Other persistent atrial fibrillation; Translations: [Other persistent atrial fibrillation]Onset: 03-15-2025 Past or Other Problems Problem ClassificationProblemDateDocumented DateEpisodic/ChronicChronic kidney disease (4 sources)Chronic kidney diseaseNonspecific chest pain (4 sources)Chest pain, unspecified; Translations: [CHEST PAIN UNSPECIFIED]Onset: 50-42-7960RoirgljuYycob aftercare (1 source)Other half-way (current) drug therapy; Translations: [OTH FPC CURRENT DRUG THERAPY]Onset: 41-11-8067PlqxfldlDqefv circulatory disease (2 sources)Personal history of other diseases of the circulatory system; Translations: [Personal history of other diseases of the circulatory system] Onset: 80-45-1860MxyqcqbnFmupv lower respiratory disease (4 sources)Shortness of breath; Translations: [SHORTNESS OF BREATH]Onset: 16-00-0741RrawzdccPucjh lower respiratory disease (2 sources)Other forms of dyspnea; Translations: [Other forms of dyspnea]Onset: 85-59-2907UdoglabsLlmhojjn codes; unclassified (2 sources)Other specified postprocedural states; Translations: [Other specified postprocedural states]Onset: 90-13-8094Fcmrbuid Results Test NameValueInterpretationReference RangeFacilityOrders Onlyon 04-23-2025 Orders [id number] Ignacio Amin 1945 Date Provider Department [place] 04/23/2025 JUSTIN BAIG [facility] [place] [facility] Family History Problem Relation Age of Onset Diabetes Mother Coronary artery disease Father Other Sister Family Status - Relation Status Age at Mother Father SisterNormalUniversity of [facility] AllianceBILIRUBIN, DIRECTon 03-30-2025 Magnesium [Mass/Vol]0.1 mg/dLNormal0-0.2UnBarnesville Hospital Comment on above:Performed By: #### [id number] ####[facility] (BEAKER)[address], [place] [address]YFOHSQGZG, TOTALon 67-26-2615Yjpglvwcn [Mass/Vol] 0.9 mg/dLNormal0.3-1.0UnBarnesville HospitalComment on above: Performed By: #### [id number] #### [facility] (BEAKER) [address] [place], [place] [address]CKSVDOTTDFvg 47-49-7655Puunbuzwsi (Bld) [Mass/Vol]12.1 g/dLLow 13.0-17.0UnBarnesville HospitalComment on above:Performed By: #### [id number] #### [facility] (BEAK[facility]) [address] [place], [place] [address]PRQC SENSITIVITY TROPONIN Ion 74-82-8391PR TROPONIN I (NG/L)138 ng/LCritically high<20UnBarnesville HospitalComment on above: Performed By: #### [id number] ####[facility] (BEAKER)[address] [place], [place] [address]GYvz 87-80-0779OHMK Electrophysiology Consult Note Reason for visit: PPM, CAD/CABG, HCM, NSVT s/p ICD 03/30/25 Pt here for Afib ablation. 11/02/24 Pt noted to be in Afib as per [employer]ilo[employer] web check. He is more tired in [...] harvesting of the left greater saphenous vein. CORONARY STENT PLACEMENT CTA CHEST W IV CONTRAST 02/20/2022 CT CHEST ANGIOGRAM W AND/OR WO IV CONTRAST GREEN CONVERSION PROSTATE SURGERY SH: Social Drivers of Health Tobacco Use: Medium Risk (03/30/2025) Patient History Smoking Tobacco Use: Former Smokeless Tobacco Use: Never Passive Exposure: Not on file Alcohol Use: Not on file Financial Resource Strain: Not on file Food Insecurity: Not on file Transportation Needs: Not on file Physical Activity: Not on file Stress: Not on file Social Connections: Not on file Intimate Partner Violence: Unknown (08/14/2023) [place] Safety & Environment Fear of Current or Ex-Partner: Not on file Emotionally Abused: Not on file Physically Abused: Not on file Sexually Abused: Not on file Physically or Sexually Abused: Not on file Depression: Not at risk (09/24/2022) Received from [facility] PHQ-2 PHQ-2 score: 0 Housing Stability: Not on file Utilities: Not on file Health Literacy: Not on file Allergies: Allergies Allergen Reactions Influenza Virus Vaccine Tv Split 2011-05 (60 Yr +) Other Weight: No weight available Visit Vitals BP 150/78 Pulse 73 Temp 36 ???C (96.8 ???F) (Temporal) Resp 20 Ht 1.753 m (5' 9 ) Wt 89.5 kg (197 lb 5 oz) SpO2 99% BMI 29.14 kg/m??? Smoking Status Former BSA 2.09 m??? Meds: No current facility-administered medications on file prior to encounter. Current Outpatient Medications on File Prior to Encounter Medication Sig Dispense Refill cholecalciferol (Vitamin D-3) 25 MCG (1000 UT) capsule 1 capsule 1 (one) time each day at the same time. ferrous sulfate 325 (65 Fe) MG tablet Take 65 mg by mouth wi (more content not included)...NormalUnBarnesville HospitalLACTATE DEHYDROGENASEon 56-18-5901EASTAVF DEHYDROGENASE (U/L) IN SER/PLAS BY LAC->PYR ECB366 U/LNormal 140-271UnBarnesville HospitalComment on above:Performed By: #### [id number] ####[facility] (BEAKER)[address], [place] [address]OEWKBAVKad 55-50-7154IWGBVPUEUknn discharge instructions at bedsideNormalUniversSelect Medical Specialty Hospital - [facility] NorthPOCT GLUCOSE METER UNSOLICITED RESULTSon 64-17-8345Yadbieo [Mass/Vol]111 mg/bBHdiq04-915PrfxwfpqjtBarnesville HospitalComment on above:Order Comment: Waived Testing in the ED is performed under the ED CLIA certificate #[id number].Result Comment: aeppinkPerformed By: #### [id number] #### [facility] (EMELINA) [address] [place], [place] [id number] 22-58-6726ZQT IN PPP BY COAGULATION ASSAY1.13High 0.90-1.10UnBarnesville HospitalComment on above:Result Comment: ACCCP RECOMMENDED INR FOR WARFARIN THERAPY CONDITION INR PROPHYLAXIS OF VENOUS THROMBOSIS 2-3 (HIGH-RISK SURGERY) TREATMENT OF VENOUS THROMBOSIS 2-3 TREATMENT OF PULMONARY EMBOLISM 2-3 PREVENTION OF SYSTEMIC EMBOLISM: 2-3 ACUTE MYOCARDIAL INFARCTION TISSUE HEART VALVES VALVULAR HEART DISEASE ATRIAL FIBRILLATION RECURRENT SYSTEMIC EMBOLISM MECHANICAL HEART VALVE 2.5-3.5 FROM: ORAL ANTICOAGULANTS. MECHANISM OF ACTION, CLINICAL EFFECTIVENESS, AND OPTIMAL THERAPEUTIC RANGE. CHEST 1995;108:231S-246S.Performed By: #### [id number] #### [facility] (RACHEL) [address] [place], [place] [address]FTCXOPPRAJQ TIME (PT) IN PPP BY COAGULATION ASSAY14.5 Seconds Djthmz39.3-14.8UnBarnesville HospitalComment on above:Performed By: #### [id number] #### [facility] ([facility]) [address] [place], [place] [address]Ayzaql Visiton 58-38-8618Yfjnok-up [id number] Ignacio Amin 1945 M Date Provider Department Center 03/15/2025 [facility] Family History Problem Relation Age of Onset Diabetes Mother Coronary artery disease Father Other Sister Family Status - Relation Status Age at Mother Father Sister Level of Service:54759 OK OFFICE/OUTPATIENT ESTABLISHED HIGH MDM [facility]Prep for Procedureon 34-73-5526Outm for [id number] Ignacio Amin 1945 M Date Provider Department Center 03/09/2025 1987-BLANCA CHAVIS [facility] [place] HeartVAS Family History Problem Relation Age of Onset Diabetes Mother Coronary artery disease Father Other Sister Family Status - Relation Status Age at Mother Father SisterNormalUniSelect Medical Specialty Hospital - CantonOrders Onlyon 39-40-7117Jkered [id number] BrennanIgnacio Stein 1945 M Date Provider Department Center 01/22/2025 241-JUSTIN URRUTIA [facility] CARD [place] HeartVAS Family History Problem Relation Age of Onset Diabetes Mother Coronary artery disease Father Other Sister Family Status - Relation Status Age at Mother Father SisterNormalUniSelect Medical Specialty Hospital - CantonErythrocyte distribution width Auto (RBC) [Ratio]Ordered By: Jenifer Jensen on 96-79-0857Wrtpupwuxeh distribution width (RBC) [Ratio]15.1 %High11.0-15.0[facility] Estimated glomerular filtration rate (GFR) non- AmericanOrdered By: Jenifer Jensen on 83-48-4979OBV/1.73 sq M.predicted among non-blacks MDRD (S/P/Bld) [Vol rate/Area]52 mL/min/{1.73_m2}Low>=60 mL/min/1.73m [address] [place], [place] [address]Hematocrit Auto (Bld) [Volume fraction]Ordered By: Jenifer Jensen on 82-70-0738Lfaskhvtbv (Bld) [Volume fraction]43.8 %42.0-54.0Barnesville HospitalHemoglobin [Mass/volume] in BloodOrdered By: Jenifer Jensen on 13-94-3729Yyqdoszsds (Bld) [Mass/Vol]14.0 g/dL14.0-18.0Barnesville HospitalIron binding capacity [Mass/volume] in Serum or PlasmaOrdered By: Jenifer Jensen on 93-03-5761Dvrn binding capacity [Mass/Vol]321.0 ug/dL250.0-450.0 Barnesville HospitalIron saturation [Mass Fraction] in Serum or PlasmaOrdered By: Jenifer Jensen on 79-44-4041Moul saturation [Mass fraction]18.7 %Barnesville HospitalLaboratory - Chemistry and Chemistry - challengeOrdered By: Jenifer Jensen on 37-29-0498Ogzeuog [Mass/Vol]3.6 g/dL3.4-5.0 [facility]ville HospitalCalcium [Mass/Vol]9.6 mg/dL8.5-10.1FACMC Healthcare System GlenbeighChloride [Moles/Vol]107 mmol/R58-735XmsbhiswmBarnesville HospitalCO2 [Moles/Vol]31.2 mmol/L21.0-32.0Barn[facility]ville HospitalCreatinine [Mass/Vol]1.33 mg/dLHigh0.70-1.30Barnesville HospitalGFR/1.73 sq M.predicted MDRD (S/P/Bld) [Vol rate/Area]mL/min/{1.73_m2}>=60 mL/min/1.73m 2FACMC Healthcare System GlenbeighGlucose [Mass/Vol]126 mg/dLHigh 74-106Barnesville HospitalIron [Mass/Vol]60.0 ug/dLLow65.0-175.0 [facility]ville HospitalMagnesium [Mass/Vol]2.0 mg/dL1.8-2.4FACMC Healthcare System GlenbeighPotassium [Moles/Vol]4.3 mmol/L3.5-5.1FTriHealth Bethesda North Hospitalodium [Moles/Vol]146 mmol/PPjfj654-501DuxdwkggkBarnesville HospitalUrate [Mass/Vol]7.6 mg/dLHigh3.5-7.2FACMC Healthcare System GlenbeighUrea nitrogen [Mass/Vol]26.0 mg/dLHigh7.0-18.0Barnesville HospitalUrea nitrogen/Creatinine [Mass ratio]19.5 mg/mgBarnesville Hospital Bilirubin Ql (U)NegativeNEGATIVEBarnesville HospitalGlucose (U) [Mass/Vol]NegativeNEGATIVEBarnesville HospitalKetones Ql (U) NegativeNEGToledo HospitalpH (U)5.5 [pH]5.0-9.0[facility], Incpecific gravity (U) [Rel density]1.0201.005-1.025 Barnesville HospitalUrobilinogen Qn (U)0.2 {Kayce'U}/dL0.2-1.0 [facility] HospitalLaboratory - Specimen informationOrdered By: Jenifer Jensen on 53-15-7615Xzlmfajdgk (U)CLEARCLEARFACMC Healthcare System GlenbeighColor (U)YELLOWYELLOWBarnesville HospitalLaboratory - UrinalysisOrdered By: Jenifer Jensen on 04-33-8152Pbctvpows esterase Test strip Ql (U)NegativeNEGATIVEBarnesville HospitalNitrite Ql (U)Negative NEGATIVEBarnesville HospitalProtein (U) [Mass/Vol]18.7 mg/dLHigh <=11.9Barnesville HospitalProtein Ql (U)NegativeNEG/TRACEBarnesville HospitalLeukocytes [#/volume] corrected for nucleated erythrocytes in Blood by Automated counOrdered By: Jenifer Jensen on 24-69-9831DIK corrected for nucl RBC Auto (Bld) [#/Vol]5.4 10 3/uL4.0-11.0UC HealthH Auto (RBC) [Entitic mass]Ordered By: Jenifer Jensen on 28-05-8137IET (RBC) [Entitic mass]30.1 pg25.9-34.0UC HealthHC Auto (RBC) [Mass/Vol]Ordered By: Jenifer Jensen on 12-21-2674MXEW (RBC) [Mass/Vol]32.0 g/dL29.9-35.2FACMC Healthcare System GlenbeighMCV Auto (RBC) [Entitic vol]Ordered By: Jenifer Jensen on 82-72-8052MGB (RBC) [Entitic vol]94.2 rHLolc30.0-94.0Barnesville HospitalNo Panel InformationOrdered By: Jenifer Jensen on 925550-Jzznafv Vitamin D Total35.3 ng/mLBarnesville HospitalComment on above:<20 ng/mL Vit D grkdaaopj31-<30 ng/mL Vit D svirfoabsnul10-741 ng/mL Vit D sufficient>100 ng/mL Potential Toxicity Miscellaneous TestCOMMENT.Barnesville HospitalComment on above:Test Ordered: [id number] FerritinFerritin 142 ng/mL CB Reference Range: 30-400Performed at: [facility] ReqlutH[facility] [place] [id number] Director: Edwardo Grande PhD, Phone: [phone] Hormone (Intact)69 pg/mL Qfrvgafo69-70MxnylqrxxBarnesville HospitalComment on above:Performed at: [facility] ReqlutH[facility] [place], [place] [id number] Director: Edwardo Grande PhD, Phone: [phone] Level3.2 mg/dL2.6-4.7FACMC Healthcare System GlenbeighUrine Occult BloodNegativeNEGATIVEBarnesville HospitalUrine Random Jltsuuzghv28.85 mg/dL20.00-300.00Barnesville HospitalPlatelet mean volume Auto (Bld) [Entitic vol]Ordered By: Jenifer Jensen on 05-57-0031Fttlpcjw mean volume (Bld) [Entitic vol]11.0 fL9.5-13.5 Barnesville HospitalPlatelets Auto (Bld) [#/Vol]Ordered By: Jenifer Jensen on 16-48-3217Nkwgbrgxm (Bld) [#/Vol]202 10 3/fG423-925LigzozfamBarnesville HospitalRBC Auto (Bld) [#/Vol]Ordered By: Jenifer Jensen on 21-30-0341DJJ (Bld) [#/Vol]4.65 10 6/uLLow4.70-6.10[facility], Incerum or plasma anion gap determinationOrdered By: Jenifer Jensen on 96-91-4707Zcggy gap [Moles/Vol]12.1 mmol/LFACMC Healthcare System GlenbeighUrine protein/creatinine ratioOrdered By: Jenifer Jensen on 24-96-2740Gccxoqj/Creatinine (U) [Ratio]0.21 [facility]ville HospitalOrders Onlyon 82-26-5285Ocvyjz [id number] Ignacio Amin 1945 M Date Provider Department Center 11/18/2024 [id number], HISTORICAL CARD [facility] Family History Problem Relation Age of Onset Diabetes Mother Coronary artery disease Father Other Sister Family Status - Relation Status Age at Mother Father SisterNormalUniSelect Medical Specialty Hospital - CantonOffice Visiton 02-11-2940Pdngbk- up [id number] Ignacio Amin 1945 M Date Provider Department Center 11/02/2024 JUSTIN BAIG [facility] Family History Problem Relation Age of Onset Diabetes Mother Coronary artery disease Father Other Sister Family Status - Relation Status Age at Mother Father Sister Level of Service:64045 [place] OFFICE/OUTPATIENT ESTABLISHED MOD [facility] HospitalOffice Visiton 06-67-3722Rxsjwf-up visit [id number] Ignacio Amin 1945 M Date Provider Department Center 10/26/2024 271-DONAVAN SAEED CARD [facility] Family History Problem Relation Age of Onset Diabetes Mother Coronary artery disease Father Other Sister Family Status - Relation Status Age at Mother Father Sister Level of Service:90887 [place] OFFICE/OUTPATIENT ESTABLISHED MOD [facility] [address] [facility] HospitalOrders Onlyon 54-45-8958Hkmuwk [id number] Ignacio Amin 1945 M Date Provider Department Center 10/23/2024 JUSTIN BAIG [facility] LISHA [facility] HeartVAS Family History Problem Relation Age of Onset Diabetes Mother Coronary artery disease Father Other Sister Family Status - Relation Status Age at Mother Father SisterNormalULake County Memorial Hospital - WestErythrocyte distribution width Auto (RBC) [Ratio]on 57-22-2819Uokrkmuhapa distribution width (RBC) [Ratio] Erythrocyte distribution width [Ratio] by Automated count11.0-15.0[facility] HospitalEstimated glomerular filtration rate (GFR) non- Americanon 58-54-3256CZK/1.73 sq M.predicted among non-blacks MDRD (S/P/Bld) [Vol rate/Area]Estimated glomerular filtration rate (GFR) non- Low>=60 mL/min/1.73m 2Fireevergreenhealth Regional Medical CenterGlobulin Calc (S) [Mass/Vol]on 36-22-3230Ptnpabkw (S) [Mass/Vol]Serum globulin measurement by calculation (mass/volume)[facility] HospitalHematocrit Auto (Bld) [Volume fraction]on 23-86-3274Evnaeiavjb (Bld) [Volume fraction]Hematocrit [Volume Fraction] of Blood by Automated count42.0-54.0[facility] HospitalHemoglobin [Mass/volume] in Bloodon 61-53-8068Akiprpwqab (Bld) [Mass/Vol] Hemoglobin [Mass/volume] in Blood14.0-18.0[facility] HospitalIron binding capacity [Mass/volume] in Serum or Plasmaon 40-64-6407Ybod binding capacity [Mass/Vol]Iron binding capacity [Mass/volume] in Serum or Plasma 250.0-450.0Barn[facility]ville HospitalIron saturation [Mass Fraction] in Serum or Plasmaon 49-68-2850Asfh saturation [Mass fraction]Iron saturation [Mass Fraction] in Serum or PlasmaBarnesville HospitalLaboratory - Chemistry and Chemistry - challengeon 10-66-3807Wxjktac [Mass/Vol]3.7 g/dL 3.4-5.0[facility] HospitalALP [Catalytic activity/Vol]94 U/L46-116 [facility] HospitalALT [Catalytic activity/Vol]34 U/L16-63 [facility] HospitalAST [Catalytic activity/Vol]19 U/L15-37 [facility] HospitalBilirubin [Mass/Vol]0.7 mg/dL0.2-1.0[facility] HospitalCalcium [Mass/Vol]9.4 mg/dL8.5-10.1FACMC Healthcare System GlenbeighChloride [Moles/Vol]108 mmol/GTjoe97-048BfodndzdjBarnesville HospitalCO2 [Moles/Vol]31.4 mmol/L21.0-32.0[facility] Cobalamin (Vitamin B12) [Mass/Vol]622 pg/eM416-0671MsusldmzrBarnesville HospitalComment on above:Performed at: [facility] Lab[address] [id number] Director: Edwardo Grande PhD, Phone: [phone] Creatinine [Mass/Vol]1.37 mg/dLHigh0.70-1.30[facility] Ferritin [Mass/Vol]133.0 ng/mL26.0-388.0[facility] GFR/1.73 sq M.predicted MDRD (S/P/Bld) [Vol rate/Area]mL/min/{1.73_m2}>=60 mL/min/1.73m 2FACMC Healthcare System GlenbeighGlucose [Mass/Vol]131 mg/dLHigh 74-106Barnesville HospitalIron [Mass/Vol]82.0 ug/dL65.0-175.0 [facility] HospitalMagnesium [Mass/Vol]2.1 mg/dL1.8-2.4FACMC Healthcare System GlenbeighPotassium [Moles/Vol]4.7 mmol/L3.5-5.1FACMC Healthcare System GlenbeighProtein [Mass/Vol]7.1 g/dL6.4-8.2[facility] Sodium [Moles/Vol]145 mmol/Z104-462SuhcgbnufBarnesville HospitalUrate [Mass/Vol]6.5 mg/dL3.5-7.2FACMC Healthcare System GlenbeighUrea nitrogen [Mass/Vol]23.0 mg/dLHigh7.0-18.0[facility]ville HospitalUrea nitrogen/Creatinine [Mass ratio]16.8 mg/mgBarnesville Hospital Bilirubin Ql (U)NegativeNEGATIVEBarnesville HospitalGlucose (U) [Mass/Vol]NegativeNEGATIVEBarnesville HospitalKetones Ql (U) NegativeNEGATIVEBarnesville HospitalpH (U)5.5 [pH]5.0-9.0[facility], Incpecific gravity (U) [Rel density]1.0201.005-1.025 [facility] HospitalUrobilinogen Qn (U)0.2 {Kayce'U}/dL0.2-1.0 [facility] HospitalLaboratory - Specimen informationon 06-21-2024 Appearance (U)CLEARCLEARFACMC Healthcare System GlenbeighColor (U)YELLOWYELLOW [facility] HospitalLaboratory - Urinalysison 86-03-5564Vevvpjapg esterase Test strip Ql (U)NegativeNEGATIVEBarnesville Hospital Nitrite Ql (U)NegativeNEGATIVEBarnesville HospitalProtein (U) [Mass/Vol]13.7 mg/dLHigh<=11.9Barn[facility]ville HospitalProtein Ql (U) NegativeNEG/TRACEBarnesville HospitalLeukocytes [#/volume] corrected for nucleated erythrocytes in Blood by Automated counon 56-25-1601KQH corrected for nucl RBC Auto (Bld) [#/Vol]Leukocytes [#/volume] corrected for nucleated erythrocytes in Blood by Automated coun4.0-11.0Barnesville HospitalMCH Auto (RBC) [Entitic mass]on 72-99-4248GUL (RBC) [Entitic mass] MCH [Entitic mass] by Automated count25.9-34.0[facility] MCHC Auto (RBC) [Mass/Vol]on 14-62-9145IXAF (RBC) [Mass/Vol]MCHC [Mass/volume] by Automated count29.9-35.2FACMC Healthcare System GlenbeighMCV Auto (RBC) [Entitic vol]on 42-38-4685OMI (RBC) [Entitic vol]MCV [Entitic volume] by Automated louqrVpkm95.0-94.0[facility]ville HospitalNo Panel Informationon 60-05-377883490103-Qztewnh Vitamin D Total29.1 ng/mLBarnesville HospitalComment on above:<20 ng/mL Vit D txblpmdce75-<30 ng/mL Vit D zfbijhgsptij71-592 ng/mL Vit D sufficient>100 ng/mL Potential ToxicityFolate 24.40 ng/mL8.60-58.90Barn[facility] HospitalParathyroid Hormone (Intact)60 pg/wL08-35TfsvjjlplBarnesville HospitalComment on above:Performed at: [facility] [id number] Director: Edwardo Grande PhD, Phone: [phone] Level3.6 mg/dL2.6-4.7 [facility] HospitalUrine Occult BloodNegativeNEGATIVEBarnesville HospitalUrine Random Vpcnbrbhou77.10 mg/dL20.00-300.00Barn[facility]ville HospitalPlatelet mean volume Auto (Bld) [Entitic vol]on 97-81-1773Hhsbeqnw mean volume (Bld) [Entitic vol]Platelet mean volume [Entitic volume] in Blood by Automated count9.5-13.5F[facility] Platelets Auto (Bld) [#/Vol]on 47-05-8587Mxalosmmd (Bld) [#/Vol]Platelets [#/volume] in Blood by Automated xryrt036-343KugbqygfyBarnesville Hospital RBC Auto (Bld) [#/Vol]on 37-86-4548UTZ (Bld) [#/Vol]Erythrocytes [#/volume] in Blood by Automated countLow4.70-6.10[facility], Incerum or plasma albumin/globulin mass ratioon 67-59-8568Qwsehra/Globulin [Mass ratio] Serum or plasma albumin/globulin mass ratioBarnesville Hospital Serum or plasma anion gap determinationon 87-58-0878Nujrq gap [Moles/Vol]Serum or plasma anion gap determinationBarnesville HospitalUrine protein/creatinine ratioon 87-20-3067Zbgfznh/Creatinine (U) [Ratio]Urine protein/creatinine ratioBarnesville HospitalOffice Visiton 70-76-1728Jseatd-up [id number] Ignacio Amin 1945 M Date Provider Department Center 05/04/2024 JUSTIN BAIG [facility] Hos Family History Problem Relation Age of Onset Diabetes Mother Coronary artery disease Father Other Sister Family Status - Relation Status Age at Mother Father Sister Level of Service:21924 OK OFFICE/OUTPATIENT ESTABLISHED LOW MDM [address] [facility] [facility] HospitalHemoglobin [Mass/volume] in Bloodon 20-91-1266Xigfldxjaq (Bld) [Mass/Vol]13.7 g/dL14.0-18.0[facility], Inccreenson 61-97-0473Jwjpdpt [id number]#1.00TIFCleveland Clinic Union [id number]#1.00TIFFNormalFisher Saint Luke InstituteAmbulatory Visit Summaryon 36-14-0538Swfdcmaxht Visit Summary IGNACIO AMIN :1945 Visit Date:07/23/2023 [...] minerals (Centrum Silver) potassium chloride (Potassium Chloride (Pdy-Yfci-Jpg M20) 20 mEq oral tablet, extended release) [...] By Mouth Every 4 hours Contact prescribing physicianif questions or concerns Unchanged atorvastatin (Lipitor 80 [...] or concerns Unchanged potassium chloride (Potassium Chloride (Pko-Dppu-Fgg M20) 20 mEq oral tablet, extended release) [...] urinating. ? A digit (more content not included)...[facility] Educationon 26-57-1045Ytbrhlb EducationUrology Benign Prostatic Hyperplasia Benign prostatic hyperplasia (BPH) [...] urine that may remain in your bladder afteryou finish urinating. ? A digital rectal exam. [...] this procedure, a tool is inserted through theopening at the tip of the penis (urethra). [...] procedure uses radio frequencies to destroy and removea small amount of prostate tissue. ? Interstitial laser coagulation (ILC). This procedure uses a laser to destroy and remove a small amount of prostate tissue. ? Transurethral electrovaporization (TUVP). This procedure uses electrodes to destroy and remove a small amount of prostate tissue. ? Prostatic urethral lift. This procedure inserts an implant to push the lobes of the prostate awayfrom the urethra. Follow these instructions at home: ? Take hlzk-owp-ccszzuw and prescription medicines only as told by [...] from the medicine (more content not included)... [facility] HospitalUrology Office/Clinic Noteon 83-80-5333Piygxql Office/Clinic NoteChief Complaint 3m HPI Staff Pt is here [...] BPH with LUTS s/p Urolift here for followup JOSHUA 1(1) - Pt denies desire for [...] frequency during the day. Feels empty after voiding.No difficulty starting stream. Denies unsteady stream. Very little leaking, with blowing nose. Denies any concerns at this time. Pt still apprehensive of symptom improvement since Urolift in February, although prior states stream stronger after procedure. Discussed limitations with hx of radiation. Pt states that he feels theTamsulosin has helped some. Discussed continuing the Tamsulosin, [...] voids. Avoid bladder irritants 4. 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) use of anticoagulants) Eliquis 5mg BID [...] services(s) I performed an (more content not included)...[facility] HospitalComment on above:Result Comment: Electronically Signed By: Patience Huitron MD\.br\Date and Time Signed: 07/23/23 15:27EST\.br\Electronically Co- Signed By: Vania Dougherty\.br\Date and Time Co-Signed: 07/23/23 10:47 EST [place] [id number]#1.00TIFF [facility] Hospitalcreens [id number]#1.00TIFFNoMarietta Memorial HospitalAmbulatory Visit Summaryon 65-99-5390Lggrccofah Visit Summary IGNACIO AMIN :1945 Visit Date:04/16/2023 Ambulatory Visit Instructions Your Diagnosis BPH with urinary obstruction Personal history of prostate cancer OAB (overactive bladder) Anticoagulated Tests Performed Urnls Dip Stick Auto w/o Microscopy POC 88861 Your Care Team Attending Physician - Tomy DUNN, Patience [place] Primary Care Physician - ELLIOT ROSALES MD Referring Physician - Patience Huitron MD. This Is Your Medications List tamsulosin (Flomax [...] MD Where: [facility] Educationon 30-09-5254Ucceobs EducationUrology Benign Prostatic Hyperplasia Benign prostatic hyperplasia (BPH) [...] urine that may remain in your bladder afteryou finish urinating. ? A digital rectal exam. [...] this procedure, a tool is inserted through theopening at the tip of the penis (urethra). [...] procedure uses radio frequencies to destroy and removea small amount of prostate tissue. ? Interstitial laser coagulation (ILC). This procedure uses a laser to destroy and remove a small amount of prostate tissue. ? Transurethral electrovaporization (TUVP). This procedure uses electrodes to destroy and remove a small amount of prostate tissue. ? Prostatic urethral lift. This procedure inserts an implant to push the lobes of the prostate awayfrom the urethra. Follow these instructions at home: ? Take apij-zmg-anwdgte and prescription medicines only as told by [...] from the medicine (more content not included)... [facility] HospitalUrology Office/Clinic Noteon 00-31-4575Yjiefyj Office/Clinic NoteChief Complaint S/P Urolift HPI Staff S/P UroLift [...] sxs. Pt states that he can start thisagain. Discussed limitations of improvement given hx EBRT [...] voids -Re-eval after tamsulosin 4. 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) use of anticoagulants) Eliquis 5mg BID [...] Additional Instructions: Patient Education Benign Prostatic Hyperplasia Vania Harmon, personally scribed for Dr. Huitron on 04/16/2023 10:59:26. . Documentation recorded by the scribVania stein, accurately reflects the services(s) I performed and decisions made by me. Authenticated by Dr. Huitron on 04/16/2023 12:38:21. 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 ED (erectile dysfunction) Heart attack Heart disease Microscopic hematuria Myocardial infarc (more content not included)...[facility] HospitalComment on above:Result Comment: Electronically Signed By: Patience Huitron MD\.br\Date and Time Signed: 04/16/23 12:38EDT\.br\Electronically Co-Signed By: Vania Dougherty\.br\Date and Time Co-Signed: 04/16/23 10:59 EDTConsent for Procedure/Surgeryon 26-84-6715Wcpsegx for Procedure/Surgery [id number]#1.00CD:127[facility] HospitalConsent for Treatmenton 86-02-9729Qsipfgi for Treatment [id number]#1.00CD:127[facility] HospitalInpatient Patient Summaryon 10-24-0326Gcnhmfloi Patient Summary [place] [id number] Clinical Summary Person Information Name: IGNACIO AMIN Age: 77 Years : 1945 Sex: Male PCP: ELLIOT ROSALES MD Marital Status: Race: White Ethnicity: Non- or Language: Mongolian Visit Id: Visit Reason: BPH WITH LUTS Speciality: Acuity: Enc Type: Outpatient Med Service: Surgery Arrival: 03/03/2023 08:34:30 Discharge: Dispo Type: Address: [address] [place] [phone] Provider Notes: Diagnosis: Anticoagulated; BPH with urinary [...] Follow up: With: Address: When: Patience Huitron [address] [place] [address] [place] [address] [phone] Business (1) Comments: Office to schedule follow up in 1 month with PVR Patient Education Information: Lue - Urolift Post-Op Instructions (CUSTOM)[facility] IntraOperative Documentson 86-48-1248JkjgiDraivhbge Documents [id number]#1.00CD:127NormAdena Health SystemMain OR Intraoperative Recordon 91-57-2654Gpro OR Intraoperative Record IntraOp Document Type FTURO Summary Primary Physician: Patience Huitron MD Finalized Date/Time: 03/03/23 10:01:19 Pt. Name: IGNACIO AMIN/Sex: 1945 Male Med Rec #: [id number] Physician: Patience Huitron MD Financial #: [id number] Pt. Type: O Room/Bed: / Admit/Disch: 03/03/23 [...] Catia Jarvis Role Performed Surgeon - Primary High School Academic Coach - Primary Scrub - Primary Time In [...] LUTS Outcomes Met? Yes Last Modified By: Conde Leola TRIMBLE 03/03/23 09:47:48 Post-Care Text: The patient is [...] [place], Verified (If Medication Participants Amaya TRIMBLE, Leola Sanchez) Makeda Colindres Kendall R Time Out Complete [...] UROLIFT IMPLANT Serial Number Lot Number [id number] [employer] NEOTRACT NEOTRACT Catalog ?# [id number] UL2-C Size Expiration Date 11/06/23 10/01/23 Usage Data Implant Site PROSTATE PROSTATE Quantity 1 4 Temperature Reconstitution Method Outcomes Met? Yes Yes Last Modified By: Amaya TRIMBLE, Leola Lane RN 03/03/23 Cami Husain 03/03/23 09:59:37 09:59:37 Post-Care [...] Signatures Signed By: Leola Conde RN 03/03/23 10:01[facility] HospitalMain OR Preoperative Recordon 41-41-0111Gqik OR Preoperative RecordHolding Area Document Type FTURO Summary Primary Physician: Patience Huitron MD Finalized Date/Time: 03/03/23 09:24:52 Pt. Name: IGNACIO AMIN Sarita Garcia./Sex: 1945 Male Med Rec #: [id number] Physician: Patience Huitron MD Financial #: [id number] Pt. Type: O Room/Bed: / Admit/Disch: 03/03/23 [...] or her perioperative plan of care The patient'sright to privacy is maintained Surgery Checklist FTURO [...] 03/03/23 09:17 STEFANIE Mohamud RN, Ruthann 03/03/23 09:24[facility] Operative Reporton [id number] ReportPatient: IGNACIO AMIN Age: 77 years Sex: Male : 1945 Associated Diagnoses: None Author: Patience Huitron MD Procedure Operative Information Details: Date/ Time: 03/03/2023 10:04:00. Pre-Op Dx: BPH w/ LUTS - N40.1. Post-Op Dx: Same. Anesthesia Type: Local. Procedure: Cystoscopy with UroLift Prostatic Urethral Lift, 4 additional implants for a total of 5. Complications: None. Risks/Benefits/Informed Consent: Surgical risks, benefits, details of the procedure have been explained to the patient, Full informed consent has been obtained. Indications: INDICATIONS: 77-year-old male with benign prostatic hyperplasia and bothersome voidingsymptoms including obstruction. Specifically, the patient has an [...] removed and patient prepped/draped in the usual sterilefashion. A 20F cystoscope was inserted into the bladder. The cystoscopy bridge was replaced with a UroLift UL-2 delivery device. The first treatment site was the patient's left side approximately 1.5cm distal to the bladder neck. The distal tip of the delivery device was then angled anterior laterally approximately 10 degrees at this position to compress the lateral lobe. The trigger was pulled,thereby deploying a needle containing the implant through the prostate. The implant was additionally compressed for total 20 degrees, trigger pulled and needle was then retracted, allowing one end ofthe implant to be delivered to the capsular surface of the prostate. The implant was then tensionedto assure capsular seating and removal of slack monofilament. The device was then angled back toward midline and slowly advanced proximally (typically 3 to 4 mm) until cystoscopic verification of themonofilament being centered in the delivery bay. The [...] of a continuous anterior channel was present th rough the prostatic urethra with irrigation flow turned off. All instruments were removed. The patient's bladder was left full to allow patient to void prior to discharge home. The patient tolerated the procedure well without complication. . Specimens Removed: None. Devices Implanted: 5 implants attempted, 5 seated. . Postoperative Information Discharge: The patient tolerated the procedure well and was subsequently discharged home, Follow upin 1 month with [facility] Comment on above:Result Comment: Electronically Signed By: Tomy DUNN, Patience Salinas\.dayami\Date and Time Signed: 03/03/23 10:07EDTOutpatient Surgery Discharge Instructionon [id number] Surgery Discharge Instruction [place] [id number] Patient Discharge Instructions PERSON INFORMATION Name: IGNACIO [...] up: With: Address: When: Patience Huitron [address], [address] [place] [address] [phone] Business (1) Comments: Office to schedule follow up in 1 month with [facility] Comment: PATIENT EDUCATION INFORMATION Instructions: [facility] [place], [place] Post-Operative Instructions for UroLift After your [...] your partner. This will resolve with time. Frequency/urgency/burning with urination is [...] on how large th (more content not included)...[facility] HospitalPatient Educationon [id number] EducationExecutive [facility] [place] [place] Post-Operative Instructions for UroLift After your [...] your partner. This will resolve with time. Frequency/urgency/burning with urination is [...] It feels like the bladder is not emptying.[facility] Reminderson [id number] From: Marley Santillan To: DEMETRIUS - Ricardo Huitron; Sent: 12/25/2022 15:33:52 EDT Show up: 02/04/2023 15:33:00 EDT Subject: schedule UroLift Reminder/Recall PAtient would like urolift in . Clearance to hold [employer] (note 12/20/22) called patient to schedule, left msg on voicemail Patient is scheduled 03/03/23NoMarietta [facility] HospitalConsultation Noteon [id number] [id number]#1.00CD:127 [facility] HospitalLon [facility]-13-[facility]22L Specimen: [id number] Received: 12/13/22 Status: LORI Villafana Num: [id number] Spec Type: Surgical Subm Dr: Yung Yang MD Tissues: A Colon Biopsy (ASCENDING POLYPS) Procedures: HE/2, Gross/Micro L4 Age/ Patient Sex Location Account Attending Physician Ignacio Amin /COX BRANSON [id number] Yung Yang MD SPEC NUM: [id number] RECD: 12/13/22 STATUS: LORI VILLAFANA NUM: [id number] DILLON: 12/13/[address] [facility] [address]: Yung Yang MD ENTERED: 12/13/22 [facility] DR: MIRELLA TYPE: Surgical DEPT: S ORDERED: [...] microscopic examination confirms the diagnosis. CPT Codes 03153 Specimen: [id number] Received: 12/13/22 Status: LORI Villafana Num: [id number] Spec Type: Surgical Subm Dr: Yung Yang MD Tissues: A Colon Biopsy (ASCENDING POLYPS) Procedures: HE/2, Gross/Micro L4 Patient: Ignacio Amin [id number] (Continued) Signed (signature on file) Ashley Mcgrath MD 12/16/[address] [place] [address] Physician GroupUrology Office/Clinic Noteon 12-05-2022 Urology Office/Clinic NoteChief Complaint 6m HPI Staff 6m (no labs) [...] again. Discussed different treatment options for bladder outletobstruction including oral medications, operative interventions such as [...] the future -Timed voids 4. Anticoagulated (Z79.01: snf (current) use of anticoagulants) Eliquis 5mg BID [...] Follow-up With When Contact Information Tomy DUNN, RODERICK Cao, URO Additional Instructions: schedule urolift Patient Education Benign Prostatic Hyperplasia Keely Harmon, personally scribed for Dr. Huitron on 12/04/2022 09:47:59. . Documentation recorded by the scribe, Keely Zacarias, accurately reflects the services(s) I performed and decisions made by me. Authenticated by Dr. Huitron on 12/05/19 (more content not included)...[facility] HospitalComment on above:Result Comment: Electronically Signed By: Patience Huitron MD\.br\Date and Time Signed: 12/04/22 23:21EDT\.br\Electronically Co-Signed By: Keely Zacarias\.br\Date and Time Co-Signed: 12/04/22 09:48 EDTFormson [id number] [id number]#1.00CD:127NoMarietta [facility] HospitalPatient Educationon 72-86-4126Ltafjiv EducationUrology Benign Prostatic Hyperplasia Benign prostatic hyperplasia (BPH) [...] urine that may remain in your bladder afteryou finish urinating. ? A digital rectal exam. [...] this procedure, a tool is inserted through theopening at the tip of the penis (urethra). [...] procedure uses radio frequencies to destroy and removea small amount of prostate tissue. ? Interstitial laser coagulation (ILC). This procedure uses a laser to destroy and remove a small amount of prostate tissue. ? Transurethral electrovaporization (TUVP). This procedure uses electrodes to destroy and remove a small amount of prostate tissue. ? Prostatic urethral lift. This procedure inserts an implant to push the lobes of the prostate awayfrom the urethra. Follow these instructions at home: ? Take oram-spi-vgcrdvt and prescription medicines only as told by [...] from the medicine (more content not included)... [facility] Hospitalcreenson [id number] [id number]#1.00CD:127NormChillicothe VA Medical [id number]#1.00CD:127[facility] HospitalCNOVon [id number] Visit (RADDENNISA) IGNACIO AMIN ([id number]) 1945 M Date Time Provider Department 09/24/22 [...] in the EMR. Referring Provider: Ema DOYLE [[id number]] Allergies As of Date: 09/24/2022 Noted Allergy Reaction INFLUENZA VIRUS VACCINE TV SPLIT *10/04/2014 5 - Intolerance Date Reviewed: 09/24/2022 Reviewed by: Nurys Saleem RN - Fully Assessed Primary Visit Diagnosis:History of prostate cancer [Z85.46] Order(s):PSA (OUTSIDE) [5198152] Order #: [id number] PSA/PROSTSPECAG DIAG [SQPSA] Order #: [id number] FUTURE Prescriptions as of 10/01/2022 - furosemide [...] Signed AUA 3 Ang (more content not included)...NormalWayne Healthcare Main CampusFERRITINon 19-59-9135Gihmonvr [Mass/Vol]157.0 ng/wAGfyjhg92.0-388.0The [facility] Comment on above:Performed By: #### FERR #### [facility] [address] [place] [address] Dr. Yoselin RiveraHEMOGRAM AND PLATELon 49-25-9315Wrnhnpzgml (Bld) [Volume fraction]35.7 %Critically low42.0-54.0The [facility] Of ColumbusComment on above: Performed By: #### HH #### [facility] [address] [place] [address] Dr. Yoselin RiveraHemoglobin (Bld) [Mass/Vol]11.8 g/dLCritically low14.0-18.0The [facility] ColumbusComment on above:Performed By: #### HH #### [facility] [address] [place] [address] Dr. Yoselin RiveraST. [facility] (RBC) [Entitic mass]30.3 ikIavoht12.9-34.0The [facility] Hospital Of ColumbusComment on above:Performed By: #### HH #### [facility] [address] [place] [address] Dr. Yoselin Bains (RBC) [Mass/Vol]33.1 g/gOTkwhcb73.9-35.2The [facility] Hospital Of ColumbusComment on above:Performed By: #### HH #### [facility] [address] [place] [address] Dr. Yoselin RiveraMCV (RBC) [Entitic vol]91.8 yYZdhorx94.0-94.0The [facility] on above:Performed By: #### HH #### [facility] [address] [place] [address] Dr. Yoselin RiveraPLT157 103/ebGtvwra874-762Kae [facility] on above: Performed By: #### HH #### [facility] [address] [place] [address] Dr. Yoselin RiveraRBC3.89 106/ulCritically low4.70-6.10The [facility] Of ColumbusComformerly [facility] on above:Performed By: #### HH #### [facility] [address] [place] [address] Dr. Yoselin RiveraWBC5.0 103/ulNormal4.0-11.0The [facility] on above: Performed By: #### HH #### [facility] [address] [place] [address] Dr. Yoselin RiveraPROF 14(COMP METB)on 88-47-1897Gyujpyt [Mass/Vol]3.6 g/dLNormal 3.4-5.0The [facility] on above:Performed By: #### CMP #### [facility] [address] [place] [address] Dr. Yoselin RiveraAlbumin/Globulin [Mass ratio]1.0 {ratio}NormalThe [facility] on above:Performed By: #### CMP #### [facility] [address] [place] [address] Dr. Yoselin Fontanez [Catalytic activity/Vol]102 U/QOzjcqe55-500Yyh [facility] on above:Performed By: #### CMP #### [facility] [address] [place] [address] Dr. Yoselin Villaseñor [Catalytic activity/Vol]31 U/CLrbild62-05Rjz [facility] ColumbusComformerly [facility] on above:Performed By: #### CMP #### [facility] [address] [place] [address] [address] Yoselin RiveraAnion gap [Moles/Vol]11.6 mmol/LNormalKettering Memorial Hospital Comment on above:Performed By: #### CMP #### [facility] [address] [place] [address] [address] Yoselin RiveraAST [Catalytic activity/Vol]21 U/ZVuhgnf11-42Njn [facility] ColumbusComment on above:Performed By: #### CMP #### [facility] [address] [place] [address] [address] Yoselin RiveraBilirubin [Mass/Vol]0.5 mg/dLNormal0.2-1.0The [facility] Comment on above:Performed By: #### CMP #### [facility] [address] [place] [address] Dr. Yoselin RiveraCalcium [Mass/Vol]9.3 mg/dLNormal8.5-10.1The [facility] Comment on above:Performed By: #### CMP #### [facility] [address] [place] [address] [address] Yoselin RiveraChloride [Moles/Vol]104 mmol/CLjrlpn11-526Zyj [facility] Comment on above:Performed By: #### CMP #### [facility] [address] [place] [address] Dr. Yoselin RiveraCO2 [Moles/Vol]30.6 mmol/GVmtwtl33.0-32.0[facility] Comment on above:Performed By: #### CMP #### [facility] [address] [place] [address] Dr. Yoselin RiveraCreatinine [Mass/Vol]1.25 mg/dLNormal0.70-1.30The [facility] Of ColumbusComment on above:Performed By: #### CMP #### [facility] [address] [place] [address] Dr. Yoselin CarranzaGFR-AF NIGERIEN>60Normal>=60The [facility] Of ColumbusComment on above:Performed By: #### CMP #### [facility] [address] [place] [address] [address] Yoselin CarranzaGFR-NON AF XGKJKCLI05 mL/min/1.05v5Dqzddgudid low>=60The [facility] ColumbusComment on above:Performed By: #### CMP #### [facility] [address] [place] [address] [address] Yoselin RiveraGlobulin (S) [Mass/Vol]3.5 g/dLNoUniversity Hospitals Beachwood Medical CenterComment on above:Performed By: #### CMP #### [facility] [address] [place] [address] [address] Yoselin RiveraGlucose [Mass/Vol]132 mg/dLCritically hash99-932Ypc [facility] ColumbusComment on above:Performed By: #### CMP #### [facility] [address] [place] [address] Dr. Yoselin RiveraPotassium [Moles/Vol]4.2 mmol/LNormal3.5-5.1The [facility] Comment on above:Performed By: #### CMP #### [facility] [address] [place] [address] Dr. Yoselin RiveraProtein [Mass/Vol]7.1 g/dLNormal6.4-8.2The [facility] Comment on above:Performed By: #### CMP #### [facility] [address] [place] [address] Dr. Yoselin RiveraSodium [Moles/Vol]142 mmol/YAjtkza342-853Umy [facility] Comment on above:Performed By: #### CMP #### [facility] [address] [place] [address] Dr. Yoselin RiveraUrea nitrogen [Mass/Vol]27.0 mg/dLCritically high7.0-18.0The [facility] ColumbusComment on above:Performed By: #### CMP #### [facility] [address] [place] [address] Dr. Yoselin Miller nitrogen/Creatinine [Mass ratio]21.6 mg/mgNoUniversity Hospitals Beachwood Medical CenterComment on above:Performed By: #### CMP #### [facility] [address] [place] [address] Dr. Yoselin SuggsF CHEM 8 (BAS METB)on 06-25-4379Dotsx gap [Moles/Vol]11.3 mmol/LNormalKettering Memorial HospitalComment on above:Performed By: #### BMP #### [facility] [address] [place] [address] [address] Yoselin RiveraCalcium [Mass/Vol]9.3 mg/dLNormal8.5-10.1The [facility] Comment on above:Performed By: #### BMP #### [facility] [address] [place] [address] [address] Yoselin RiveraChloride [Moles/Vol]103 mmol/DBewxij82-383Qyt [facility] Comment on above:Performed By: #### BMP #### [facility] [address] [place] [address] [address] Yoselin RiveraCO2 [Moles/Vol]31.6 mmol/ZXovxei14.0-32.0The [facility] Comment on above:Performed By: #### BMP #### [facility] [address] [place] [address] [address] Yoselin RiveraCreatinine [Mass/Vol]1.34 mg/dLCritically high0.70-1.30The [facility] ColumbusComment on above:Performed By: #### BMP #### [facility] [address] [place] [address] [address] Wyatt ChangEGFR-AF NIGERIEN>60Normal>=60The [facility] Of ColumbusComment on above:Performed By: #### BMP #### [facility] [address] [place] [address] [address] Yoselin CarranzaGFR-NON AF LZPMNMLN52 mL/min/1.77f6Xrsmwpmsus low>=60The [facility] ColumbusComment on above:Performed By: #### BMP #### [facility] [address] [place] [address] Dr. Yoselin RiveraGlucose [Mass/Vol]150 mg/dLCritically bmrr99-888Fcv [facility] ColumbusComment on above:Performed By: #### BMP #### [facility] [address] [place] [address] [address] Yoselin RiveraPotassium [Moles/Vol]3.9 mmol/LNormal3.5-5.1The [facility] Comment on above:Performed By: #### BMP #### [facility] [address] [place] [address] [address] Yoselin RiveraSodium [Moles/Vol]142 mmol/XDxqdoy150-894Qjy [facility] Comment on above:Performed By: #### BMP #### [facility] [address] [place] [address] Dr. Yoselin RiveraUrea nitrogen [Mass/Vol]32.0 mg/dLCritically high7.0-18.0The [facility] ColumbusComment on above:Performed By: #### BMP #### [facility] [address] [place] [address] Dr. Yoselin RiveraUrea nitrogen/Creatinine [Mass ratio]23.9 mg/mgNormalThe [facility] Of ColumbusComment on above:Performed By: #### BMP #### [facility] [address] [place] [address] Dr. Yoselin RiveraPROF 14(COMP METB)on 95-80-9917Nurfzct [Mass/Vol]3.4 g/dLNormal 3.4-5.0The [facility] ColumbusComment on above:Performed By: #### HH #### [facility] [address] [place] [address] Dr. oYselin RiveraAlbumin/Globulin [Mass ratio]1.0 {ratio}NormalThe [facility] Hospital Of ColumbusComment on above:Performed By: #### HH #### [facility] [address] [place] [address] Dr. Yoselin GarsiaP [Catalytic activity/Vol]79 U/BZoxtut82-954Nfi [facility] ColumbusComment on above:Performed By: #### HH #### [facility] [address] [place] [address] Dr. Yoselin GarsiaT [Catalytic activity/Vol]25 U/EEzhfak39-22Ndo [facility] ColumbusComment on above:Performed By: #### HH #### [facility] [address] [place] [address] [address] Yoselin Gongoraon gap [Moles/Vol]10.7 mmol/LNormalKettering Memorial Hospital Comment on above:Performed By: #### HH #### [facility] [address] [place] [address] Dr. Yoselin RiveraAST [Catalytic activity/Vol]20 U/HFxkjyn56-78Bbs [facility] ColumbusComment on above:Performed By: #### HH #### [facility] [address] [place] [address] [address] Yoselin RiveraBilirubin [Mass/Vol]0.5 mg/dLNormal0.2-1.0The [facility] Comment on above:Performed By: #### HH #### [facility] [address] [place] [address] Dr. Yoselin RiveraCalcium [Mass/Vol]9.1 mg/dLNormal8.5-10.1[facility] Comment on above:Performed By: #### HH #### [facility] [address] [place] [address] Dr. Yoselin RiveraChloride [Moles/Vol]108 mmol/LCritically nmje87-966Lnm [facility] ColumbusComment on above:Performed By: #### HH #### [facility] [address] [place] [address] Dr. Yoselin RiveraCO2 [Moles/Vol]28.8 mmol/MDrptdx55.0-32.0[facility] Comment on above:Performed By: #### HH #### [facility] [address] [place] [address] Dr. Yoselin RiveraCreatinine [Mass/Vol]1.32 mg/dLCritically high0.70-1.30The [facility] Of ColumbusComment on above:Performed By: #### HH #### [facility] [address] [place] [address] Dr. Wyatt ChangEGFR-AF NIGERIEN>60Normal>=60The [facility] Of ColumbusComment on above:Performed By: #### HH #### [facility] [address] [place], [place] [id number] Dr. Yoselin CarranzaGFR-NON AF TYPZHCWT25 mL/min/1.91q9Grxvrwkkuh low>=60The [facility] Of ColumbusComment on above:Performed By: #### HH #### [facility] [address] [place] [address] [address] Yoselin RiveraGlobulin (S) [Mass/Vol]3.4 g/dLNoUniversity Hospitals Beachwood Medical CenterComment on above:Performed By: #### HH #### [facility] [address] [place] [address] [address] Yoselin RiveraGlucose [Mass/Vol]90 mg/jPDyligt79-149Jya [facility] Comment on above:Performed By: #### HH #### [facility] [address] [place] [address] Dr. Yoselin RiveraPotassium [Moles/Vol]4.5 mmol/LNormal3.5-5.1The [facility] Comment on above:Performed By: #### HH #### [facility] [address] [place] [address] Dr. Yoselin RiveraProtein [Mass/Vol]6.8 g/dLNormal6.4-8.2The [facility] Comment on above:Performed By: #### HH #### [facility] [address] [place] [address] Dr. Yoselin RiveraSodium [Moles/Vol]143 mmol/MMxvuho443-257Rsg [facility] Comment on above:Performed By: #### HH #### [facility] [address] [place] [address] [address] Yoselin RiveraUrea nitrogen [Mass/Vol]26.0 mg/dLCritically high7.0-18.0The [facility] Of ColumbusComment on above:Performed By: #### HH #### [facility] [address] [place] [address] Dr. Yoselin Miller nitrogen/Creatinine [Mass ratio]19.7 mg/mgNoUniversity Hospitals Beachwood Medical CenterComment on above:Performed By: #### HH #### [facility] [address] [place] [address] Dr. Yoselin Belcher T4on 40-19-7827Rnmn T4 [Mass/Vol]1.13 ng/dLNormal0.76-1.46 The [facility] Hospital Of ColumbusComment on above:Performed By: #### HH #### [facility] [address] [place] [address] Dr. Yoselin Daniel PROFILEon 07-87-6166LROE-HDL RATIO NORMSEE BELOWNoUniversity Hospitals Beachwood Medical CenterComment on above:Result Comment: 3.3 - 4.4 LOW RISK 4.4 - 7.1 AVERAGE RISK 7.1 - 11.0 MODERATE RISK >11.0 HIGH RISKPerformed By: #### TSH, CMP, LIPID #### [facility] [address] [place] [address] Dr. Yoselin Noriegaesterol [Mass/Vol]155 mg/dLNormal<=200The [facility] Comment on above:Performed By: #### TSH, CMP, LIPID #### [facility] [address] [place] [address] Dr. Yoselin Noriegaesterol in HDL [Mass/Vol]48 mg/mMErdnep42-29FldKettering Memorial HospitalComment on above:Performed By: #### TSH, CMP, LIPID #### [facility] [address] [place] [address] Dr. Yoselin Noriegaesterol in LDL [Mass/Vol]72.8 mg/dLHolzer HospitalComment on above:Performed By: #### TSH, CMP, LIPID #### [facility] [address] [place] [address] Dr. Yoselin Gresham.total/Cholesterol in HDL [Mass ratio]3.2 {ratio} NormalKettering Memorial HospitalComment on above:Performed By: #### TSH, CMP, LIPID #### [facility] [address] [place] [address] Dr. Yoselin Glez NORMAL> or = 60 mg/dl - LOW CARDIOVASCULAR RISK <40 mg/dl - HIGH CARDIOVASCULAR RISKHolzer HospitalComment on above:Performed By: #### TSH, CMP, LIPID #### [facility] [address] [place] [address] Dr. Yoselin Rachel CALC NORMALSEE BELOWNoUniversity Hospitals Beachwood Medical CenterComment on above:Result Comment: <100 mg/dl OPTIMAL 100 - 129 mg/dl NEAR OR ABOVE OPTIMAL 130 - 159 mg/dl BORDERLINE HIGH 160 - 189 mg/dl HIGH >190 mg/dl VERY HIGH Performed By: #### TSH, CMP, LIPID #### [facility] [address] [place] [address] Dr. Yoselin RiveraTriglyceride [Mass/Vol]171 mg/dLCritically high<=150The [facility] on above:Performed By: #### TSH, CMP, LIPID #### [facility] [address] [place] [address] Dr. Yoselin RiveraVLDL CALC34.2 mg/dLNoUniversity Hospitals Beachwood Medical CenterComment on above: Performed By: #### TSH, CMP, LIPID #### [facility] Laboratory [address] [place] [address] Dr. Yoselin Sotelo 14(COMP METB)on [id number] [Mass/Vol]3.6 g/dLNormal 3.4-5.0The [facility] on above:Performed By: #### TSH, CMP, LIPID #### [facility] Laboratory [address] [place] [address] Dr. Yoselin RiveraAlbumin/Globulin [Mass ratio]1.0 {ratio}NormalThe [facility] Of ColumbusComformerly [facility] on above:Performed By: #### TSH, CMP, LIPID #### [facility] Laboratory [address] [place] [address] Dr. Yoselin Fontanez [Catalytic activity/Vol]86 U/MWvcrjo16-450Pue [facility] ColumbusComment on above:Performed By: #### TSH, CMP, LIPID #### [facility] Laboratory [address] [place] [address] Dr. Yoselin Villaseñor [Catalytic activity/Vol]30 U/PRljatg90-56Mjp [facility] on above:Performed By: #### TSH, CMP, LIPID #### [facility] Laboratory [address] [address] [address] Yoselin Grajeda gap [Moles/Vol]7.9 mmol/LNormalThe [facility] ColumbusComment on above:Performed By: #### TSH, CMP, LIPID #### [facility] Laboratory [address] [address] [address] Yoselin RiveraAST [Catalytic activity/Vol]19 U/GXaczwr98-83Wmc [facility] ColumbusComment on above:Performed By: #### TSH, CMP, LIPID #### [facility] Laboratory [address] [address] [address] Yoselin RiveraBilirubin [Mass/Vol]0.5 mg/dLNormal0.2-1.0The [facility] Comment on above:Performed By: #### TSH, CMP, LIPID #### [facility] Laboratory [address] [address] [address] Yoselin RiveraCalcium [Mass/Vol]9.5 mg/dLNormal8.5-10.1The [facility] Comment on above:Performed By: #### TSH, CMP, LIPID #### [facility] Laboratory [address] [address] [address] Yoselin RiveraChloride [Moles/Vol]106 mmol/AMooctv27-779Lvx [facility] Comment on above:Performed By: #### TSH, CMP, LIPID #### [facility] Laboratory [address] [address] [address] Yoselin RiveraCO2 [Moles/Vol]34.3 mmol/LCritically high21.0-32.0The [facility] ColumbusComment on above:Performed By: #### TSH, CMP, LIPID #### [facility] Laboratory [address] [address] [address] Yoselin RiveraCreatinine [Mass/Vol]1.49 mg/dLCritically high0.70-1.30The [facility] ColumbusComment on above:Performed By: #### TSH, CMP, LIPID #### [facility] Laboratory [address] [address] [address] Wyatt ChangEGFR-AF DVOZNUGM72 mL/min/1.90g3Fsaamyxohr low>=60The [facility] ColumbusComment on above:Performed By: #### TSH, CMP, LIPID #### [facility] Laboratory [address] [address] [address] Yoselin CarranzaGFR-NON AF HIABPPKE16 mL/min/1.90k6Cnpjbpotmp low>=60The [facility] Of ColumbusComment on above:Performed By: #### TSH, CMP, LIPID #### [facility] Laboratory [address] [place] [address] Dr. Yoselin RiveraGlobulin (S) [Mass/Vol]3.7 g/dLNormalThe [facility] Of ColumbusComment on above:Performed By: #### TSH, CMP, LIPID #### [facility] Laboratory [address] [place] [address] Dr. Yoselin RiveraGlucose [Mass/Vol]107 mg/dLCritically ebld75-039Yez [facility] ColumbusComment on above:Performed By: #### TSH, CMP, LIPID #### [facility] Laboratory [address] [place] [address] Dr. Yoselin RiveraPotassium [Moles/Vol]4.2 mmol/LNormal3.5-5.1The [facility] Comment on above:Performed By: #### TSH, CMP, LIPID #### [facility] Laboratory [address] [place] [address] Dr. Yoselin RiveraProtein [Mass/Vol]7.3 g/dLNormal6.4-8.2[facility] Comment on above:Performed By: #### TSH, CMP, LIPID #### [facility] Laboratory [address] [place] [address] Dr. Yoselin RiveraSodium [Moles/Vol]144 mmol/CGjuacq388-192Zjc [facility] Comment on above:Performed By: #### TSH, CMP, LIPID #### [facility] Laboratory [address] [place] [address] Dr. Yoselin RiveraUrea nitrogen [Mass/Vol]31.0 mg/dLCritically high7.0-18.0The [facility] ColumbusComment on above:Performed By: #### TSH, CMP, LIPID #### [facility] [address] [address] [address] Yoselin RiveraUrea nitrogen/Creatinine [Mass ratio]20.8 mg/mgNoUniversity Hospitals Beachwood Medical CenterComment on above:Performed By: #### TSH, CMP, LIPID #### [facility] [address] [address] [address] Yoselin HodgesHogabe 06-55-0566QUN3.222 uIU/mLCritically high0.358-3.740The [facility] ColumbusComment on above:Performed By: #### TSH, CMP, LIPID #### [facility] [address] [address] [address] Yoselin RiveraXR CHEST 2 Von [id number] CHEST 2 VEXAM: Frontal and lateral chest HISTORY: . Long-term [...] Electronically authenticated by: IGNACIO JACKSON Date: 2022-05-22 08:39[facility] AUTO DIFFon [id number] #0.1 103/ulNormal0.0-0.1[facility] HospitalComment on above:Performed By: #### CBC #### [facility] Laboratory [address] [address] [address] Yoselin RiveraBasophils/100 WBC (Bld)0.9 %Normal0.2-2.0The [facility] Comment on above:Performed By: #### CBC #### [facility] Laboratory [address] [address] [address] Yoselin López #0.1 103/ulNormal0.0-0.7The [facility] ColumbusComment on above: Performed By: #### CBC #### [facility] Laboratory [address] [address] [address] Yoselin Carranzaosinophils/100 WBC (Bld)2.4 %Normal0.9-7.0The [facility] Comment on above:Performed By: #### CBC #### [facility] Laboratory [address] [place] [address] Dr. Yoselin Carranzarythrocyte distribution width (RBC) [Ratio]14.5 %Nmkavg72.0-15.0 [facility] HospitalComment on above:Performed By: #### CBC #### [facility] Laboratory [address] [place] [address] Dr. Yoselin RiveraHematocrit (Bld) [Volume fraction]36.4 %Critically low42.0-54.0 The [facility] Of ColumbusComment on above:Performed By: #### CBC #### [facility] [address] [place] [address] Dr. Yoselin RiveraHemoglobin (Bld) [Mass/Vol]11.9 g/dLCritically low14.0-18.0The [facility] ColumbusComment on above:Performed By: #### CBC #### [facility] [address] [place] [address] Dr. Yoselin Orellana #0.01 10e3/ulNormal0.00-0.03The [facility] Of ColumbusComment on above:Performed By: #### CBC #### [facility] Laboratory [address] [place] [address] Dr. Yoselin Orellana %0.2 %Normal0.0-0.5The [facility] Of ColumbusComment on above: Performed By: #### CBC #### [facility] Laboratory [address] [place] [address] Dr. Yoselin AyersH #1.2 103/ulNormal1.2-3.8The [facility] Of ColumbusComment on above:Performed By: #### CBC #### [facility] Laboratory [address] [place] [address] Dr. Yoselin Mooremphocytes/100 WBC (Bld)21.1 %Zicdct74.5-60.0The [facility] Of ColumbusComment on above:Performed By: #### CBC #### [facility] [address] [place] [address] Dr. Yoselin Mercado DIFF REQNONormalThe [facility] Hospital Of ColumbusComment on above: Performed By: #### CBC #### [facility] Laboratory [address] [place] [address] Dr. Yoselin Bains (RBC) [Entitic mass]30.4 biAzjklv23.9-34.0The Hoople HospitalComment on above:Performed By: #### CBC #### [facility] Laboratory [address] [place] [address] Dr. Yoselin Bains (RBC) [Mass/Vol]32.7 g/uETosmdh51.9-35.2The [facility] ColumbusComment on above:Performed By: #### CBC #### [facility] Laboratory [address] [place] [address] Dr. Yoselin Bains (RBC) [Entitic vol]93.1 eIJkqrcq11.0-94.0The [facility] ColumbusComment on above:Performed By: #### CBC #### [facility] [address] [place] [address] Dr. Yoselin Jensen #0.6 103/ulNormal0.3-0.8The [facility] Of ColumbusComment on above:Performed By: #### CBC #### [facility] [address] [place] [address] Dr. Yoselin Drummondocytes/100 WBC (Bld)11.6 %Normal1.7-12.0The [facility] Comment on above:Performed By: #### CBC #### [facility] [address] [place] [address] Dr. Yoselin Garcia #3.5 103/ulNormal1.4-6.5The [facility] Of ColumbusComment on above:Performed By: #### CBC #### [facility] [address] [place] [address] Dr. Yoselin Sanchezutrophils/100 WBC (Bld)63.8 %Cgzgwo68.0-75.0The [facility] Of ColumbusComment on above:Performed By: #### CBC #### [facility] [address] [place] [address] Dr. Yoselin Azarlet mean volume (Bld) [Entitic vol]10.8 fLNormal9.5-13.5The [facility] Of ColumbusComment on above:Performed By: #### CBC #### [facility] Laboratory [address] [place] [address] Dr. Yoselin RiveraPLT178 103/lxMfpkdq511-563Vep [facility] ColumbusComment on above: Performed By: #### CBC #### [facility] [address] [place] [address] Dr. Yoselin RiveraRBC3.91 106/ulCritically low4.70-6.10The [facility] Of ColumbusComment on above:Performed By: #### CBC #### [facility] [address] [place] [address] Dr. Yoselin RiveraWBC5.4 103/ulNormal4.0-11.0The [facility] Of ColumbusComment on above: Performed By: #### CBC #### [facility] Laboratory [address] [place] [address] Dr. Yoselin RiveraPROF CHEM 8 (BAS METB)on 07-72-9436Yejuh gap [Moles/Vol]6.6 mmol/LNormalThe [facility] Of ColumbusComment on above:Performed By: #### BMP #### [facility] Laboratory [address] [place] [address] Dr. Yoselin RiveraCalcium [Mass/Vol]9.3 mg/dLNormal8.5-10.1The [facility] Comment on above:Performed By: #### BMP #### [facility] Laboratory [address] [place] [address] Dr. Yoselin RiveraChloride [Moles/Vol]105 mmol/NYcoxpf28-887Zis [facility] Comment on above:Performed By: #### BMP #### [facility] Laboratory [address] [place] [address] Dr. Yoselin RiveraCO2 [Moles/Vol]32.8 mmol/LCritically high21.0-32.0The [facility] Of ColumbusComment on above:Performed By: #### BMP #### [facility] [address] [address] [address] Yoselin RiveraCreatinine [Mass/Vol]1.59 mg/dLCritically high0.70-1.30The [facility] ColumbusComment on above:Performed By: #### BMP #### [facility] [address] [address] [address] Yoselin CarranzaGFR-AF OUPOFAYR55 mL/min/1.16w5Zvtzjsaplm low>=60The [facility] Of ColumbusComment on above:Performed By: #### BMP #### [facility] [address] [address] [address] Yoselin CarranzaGFR-NON AF BHSCEXQU33 mL/min/1.02c2Njqjigarxk low>=60The [facility] ColumbusComment on above:Performed By: #### BMP #### [facility] Laboratory [address] [address] [address] Yoselin RiveraGlucose [Mass/Vol]88 mg/aITugcwb16-862Kvn [facility] Comment on above:Performed By: #### BMP #### [facility] Laboratory [address] [place] [address] Dr. Yoselin RiveraPotassium [Moles/Vol]4.4 mmol/LNormal3.5-5.1The [facility] Comment on above:Performed By: #### BMP #### [facility] Laboratory [address] [place] [address] Dr. Yoselin RiveraSodium [Moles/Vol]140 mmol/AMqrjmf806-369Hzz [facility] Comment on above:Performed By: #### BMP #### [facility] [address] [address] [address] Yoselin RiveraUrea nitrogen [Mass/Vol]37.0 mg/dLCritically high7.0-18.0The [facility] ColumbusComment on above:Performed By: #### BMP #### [facility] [address] [place] [address] Dr. Yoselin Millre nitrogen/Creatinine [Mass ratio]23.3 mg/mgNormalThe [facility] Of ColumbusComment on above:Performed By: #### BMP #### [facility] [address] [address] [address] Yoselin Ayers METABOLIC PANELon 56-31-9288Ydioxbt [Mass/Vol]9.5 mg/dL Normal8.6-10.3The [facility] CenterComment on above:Order Comment: evaluate for EffusionPerformed By: #### 77543 ####[facility] [place] [address], USAChloride [Moles/Vol]99 mmol/WOmcvic63-831Dao [facility] CenterComment on above:Order Comment: evaluate for EffusionPerformed By: #### 13312 ####[facility] [place] [address], USACO2 [Moles/Vol]28 mmol/L Czmyqa94-74Pvg [facility] CenterComment on above:Order Comment: evaluate for EffusionPerformed By: #### 22213 ####[facility] [place] [address], USACreatinine [Mass/Vol]1.51 mg/dLHigh0.70-1.30The [facility] CenterComment on above:Order Comment: evaluate for EffusionPerformed By: #### 67760 ####[facility] [place] [address], XCRRCRJ60 ml/min/1.73sq m Abnormal>60The [facility] CenterComment on above:Order Comment: evaluate for EffusionResult Comment: The [facility]'s estimated glomerular filtration rate (eGFR) [...] not disproportionately affect any one group of individuals.Performed By: #### 98810 ####[facility] [place] [address], USAGlucose [Mass/Vol]129 mg/dLHigh 70-100The [facility] CenterComment on above:Order Comment: evaluate for EffusionPerformed By: #### 47362 ####[facility] [place] [address], USAPotassium [Moles/Vol]3.4 mmol/LLow 3.5-5.1The [facility] CenterComment on above:Order Comment: evaluate for EffusionPerformed By: #### 02874 ####[facility] [place] [address], USASodium [Moles/Vol]138 mmol/LNormal 136-145The [facility] CenterComment on above:Order Comment: evaluate for EffusionPerformed By: #### 99953 ####[facility] [place] [address], USAUrea nitrogen [Mass/Vol]71 mg/dL High7-25The [facility] CenterComment on above:Order Comment: evaluate for EffusionPerformed By: #### 30800 ####[facility] [place] [address], [place]APOC SARS COV2 ANTIGEN NEGATIVEon 04-16-5702ZJH SARS COV2 ANTIGEN NEGNegativeNormalNEGATIVEThe [facility] CenterComment on above:Result Comment: Negative results should be treated as presumptive and [...] antigen from SARS-CoV-2 in direct nasopharyngeal swab (TAX COMMISSIONER) specimens from individuals who are suspected of [...] Waiver, Certificate of Compliance, or Certificate of Accreditation.Performed By: #### 34503 #### [facility] [address] [place] [address], USABASIC METABOLIC PANELon 93-07-5256Bkjgnrt [Mass/Vol]9.4 mg/dLNormal8.6-10.3The [facility] CenterComment on above:Order Comment: Check Chest Tube Position, ON ARRIVAL TO CVUPerformed By: #### 44356, 83602, 70813 ####[facility] [place] [address], USAChloride [Moles/Vol]98 mmol/BRjcevu06-382Bxf [facility] CenterComment on above:Order Comment: Check Chest Tube Position, ON ARRIVAL TO CVUPerformed By: #### 41175, 81519, 86162 ####[facility] [place] [address], USACO2 [Moles/Vol]28 mmol/L Aszqgw47-04Oeq [facility] CenterComment on above:Order Comment: Check Chest Tube Position, ON ARRIVAL TO CVUPerformed By: #### 02744, 43415, 52773 ####[facility] [place] [address], USACreatinine [Mass/Vol]1.63 mg/dLHigh0.70-1.30The [facility] CenterComment on above:Order Comment: Check Chest Tube Position, ON ARRIVAL TO CVUPerformed By: #### 55003, 99459, 88664 ####[facility] [place] [address], UUJQWBC46 ml/min/1.73sq m Abnormal>60The [facility] CenterComment on above:Order Comment: Check Chest Tube Position, ON ARRIVAL TO CVUResult Comment: The [facility]'s estimated glomerular filtration rate (eGFR) [...] not disproportionately affect any one group of individuals.Performed By: #### 41212, 02099, 79098 ####[address] [place] [address], USAGlucose [Mass/Vol] 118 mg/qYJlmj35-354Vkn [facility] CenterComment on above:Order Comment: Check Chest Tube Position, ON ARRIVAL TO CVUPerformed By: #### 75213, 96048, 78718 ####[address] [place] [address], USAPotassium [Moles/Vol]3.6 mmol/LNormal3.5-5.1The [facility] CenterComment on above:Order Comment: Check Chest Tube Position, ON ARRIVAL TO CVUPerformed By: #### 53292, 66079, 18142 ####[address] [facility] [place] [address], USASodium [Moles/Vol]137 mmol/NWwujea686-365Lhn [facility] CenterComment on above:Order Comment: Check Chest Tube Position, ON ARRIVAL TO CVUPerformed By: #### 96031, 76944, 76363 ####[address] [place] [address], USAUrea nitrogen [Mass/Vol]77 mg/dLHigh7-25The [facility] CenterComment on above:Order Comment: Check Chest Tube Position, ON ARRIVAL TO CVUPerformed By: #### 76872, 23496, 52736 ####[facility] [place] [address], UN[facility]ERS[facility] OF [facility] MEX[facility] HOSPITALSCBC COMPLETE BLOOD COUNTon 00-15-8060Pfbikeywmgd distribution width (RBC) [Ratio]14.8 %Grlael41.5-15.0The [facility] CenterComment on above:Order Comment: No: Do not add to previous drawPerformed By: #### 98345 #### [facility] [address] [place] [address], USAHematocrit (Bld) [Volume fraction]30.2 %Low39.0-50.0The [facility] CenterComment on above:Order Comment: No: Do not add to previous drawPerformed By: #### 43475 #### [facility] [address] [place] [address], USAHemoglobin (Bld) [Mass/Vol]10.2 g/dLLow13.0-17.0The [facility] CenterComment on above:Order Comment: No: Do not add to previous drawPerformed By: #### 32954 #### [facility] [address] [place] [address], [facility] CITYH (RBC) [Entitic mass]30.9 ojHpnbqs45.0-33.0The [facility] CenterComment on above:Order Comment: No: Do not add to previous drawPerformed By: #### 57903 #### [facility] [address] [place] [address], UN[facility] OF [facility] MEX[facility] HOSPITALSMCHC (RBC) [Mass/Vol]33.8 g/xYKtzzku90.0-35.0The [facility] CenterComment on above:Order Comment: No: Do not add to previous drawPerformed By: #### 16577 #### [facility] [address] [place] [address], UN[facility] OF [facility] MEX[facility] HOSPITALSMCV (RBC) [Entitic vol]91.5 hMGnocxh28.0-98.0The [facility] CenterComment on above:Order Comment: No: Do not add to previous drawPerformed By: #### 22931 #### [facility] [address] [place] [address], USANucleated RBC/100 WBC (Bld) [Ratio]0 %Normal0-0The [facility] CenterComment on above:Order Comment: No: Do not add to previous drawPerformed By: #### 99089 #### [facility] [address] [place] [address], USAPLAT RTS164 10*3/nTDvuezj290-898Vxa [facility] CenterComment on above:Order Comment: No: Do not add to previous draw Performed By: #### 01011 #### [facility] [address] [place] [address], USARBC (Bld) [#/Vol]3.30 10*6/uLLow4.20-5.70The [facility] CenterComment on above:Order Comment: No: Do not add to previous drawPerformed By: #### 36728 #### [facility] [address] [place] [address], USAWBC (Bld) [#/Vol]6.82 10*3/uLNormal4.00-10.60The [facility] CenterComment on above:Order Comment: No: Do not add to previous drawPerformed By: #### 13442 #### [facility] [address] [place] [id number], USACardiovascular Lab Reporton [id number] Lab ReportUnDoctors Hospital Patient Name: Ignacio Amin [facility] Sarita MR #: [id number] Department of Physician: Nora Saxena M.D. Division of Service Date: 02/27/2022 Cardiology Birthdate: 1945 Adult Cardiovascular Room #: 3AB 722710 [facility] [address] [facility]. [place], [place] [address] Cardiovascular Laboratory Report PROCEDURE: Transesophageal echocardiogram and cardioversion. INDICATION: Atrial fibrillation. FELLOW: Amanda Engel MD. PROCEDURE IN DETAIL: An informed consent was obtained from the patient after explaining the indication, risk and benefits, and alternatives. The patient understood, and agreed, and signed the consent form. The patient was brought to the rn cardiac cath and FARHEEN (transesophageal echocardiogram) was performed under [...] P/Amanda Engel MD Date Trans: 02/27/2022 02:37 P/anirudh DN_JN:[id number] Valley Medical CenterMAGNESIUM BLOOD on 42-03-8714Tnhmugjor [Mass/Vol]2.6 mg/dLNormal1.9-2.7The [facility] CenterComment on above:Order Comment: Check Chest Tube Position, ON ARRIVAL TO CVUPerformed By: #### 33896, 63171, 84366 ####[facility] [facility] [place] [address], UN[facility] OF [facility]EX[facility] HOSPITALSPHOSPHORUS BLOODon 37-20-5038Xjssravtj [Mass/Vol]4.7 mg/dLNormal2.5-5.0The [facility] CenterComment on above:Order Comment: Check Chest Tube Position, ON ARRIVAL TO UPerformed By: #### 03913, 26774, 78620 ####[facility] [place] [address], USAPORTABLE CHEST 1 VIEWon 02-03-4734QMGTXBSS CHEST 1 VIEWUnBarnesville Hospital Department of Radiology [address] [place] [address] Patient Name: IGNACIO AMIN : 1945 Sex: M Age: Race: White Pt. Location: [place] [address] Patient Status: I Ordered Date: 02/27/2022 5:00:00 AM Completed Date: 02/27/2022 07:17 AM Requesting Provider: CHRISSY HERNANDEZ Attending Provider: CHRISTIANE OLSON Report Copy To: Signs & Symptoms: Shortness of Breath History: Comments: evaluate for Effusion Exam: PORTABLE CHEST 1 VIEW PORTABLE CHEST 1 VIEW 02/27/2022 7:17 AM [...] chest. Electronically signed: Mahesh Sanchez. Transcribed by: [email or web address], User Resident: Electronically Signed by: MAHESH SANCHEZ @ 02/27/2022 07:47 AMNormalThe [facility] CenterComment on above:Order Comment: Check Chest Tube Position, ON ARRIVAL TO CVUBASIC METABOLIC PANELon 49-90-0551Imanlqd [Mass/Vol]9.3 mg/dLNormal8.6-10.3The [facility] CenterComment on above:Order Comment: Check Chest Tube Position, ON ARRIVAL TO CVUPerformed By: #### 29958, 26100, 99826 ####[facility] [place] [address], USAChloride [Moles/Vol]98 mmol/IGlrvmk20-588Frw [facility] CenterComment on above:Order Comment: Check Chest Tube Position, ON ARRIVAL TO CVUPerformed By: #### 89768, 01826, 20700 ####[facility] [place] [address], [place] CO2 [Moles/Vol]29 mmol/CDlwkre28-55Bfd [facility] Comment on above:Order Comment: Check Chest Tube Position, ON ARRIVAL TO CVU Performed By: #### 56611, 91182, 76721 ####[facility] [place] [address], USACreatinine [Mass/Vol]2.10 mg/dL High0.70-1.30The [facility] CenterComment on above:Order Comment: Check Chest Tube Position, ON ARRIVAL TO CVUPerformed By: #### 28916, 03483, 16682 ####[facility] [place] [address], HDCVREB78 ml/min/1.73sq mAbnormal>60The [facility] CenterComment on above:Order Comment: Check Chest Tube Position, ON ARRIVAL TO CVUResult Comment: The [facility]'s estimated glomerular filtration rate (eGFR) [...] not disproportionately affect any one group of individuals.Performed By: #### 52779, 30236, 07187 ####[facility] [place] [address], USAGlucose [Mass/Vol] 115 mg/fEYpju67-914Pnk [facility] CenterComment on above:Order Comment: Check Chest Tube Position, ON ARRIVAL TO CVUPerformed By: #### 74713, 63020, 16584 ####[place] [address] [facility] [place] [address], USAPotassium [Moles/Vol]4.7 mmol/LNormal3.5-5.1The [facility] CenterComment on above:Order Comment: Check Chest Tube Position, ON ARRIVAL TO CVUPerformed By: #### 16184, 79552, 06321 ####[place] [address] [facility] [place] [address], USASodium [Moles/Vol]137 mmol/ZCytgjm282-376Auc [facility] CenterComment on above:Order Comment: Check Chest Tube Position, ON ARRIVAL TO CVUPerformed By: #### 54224, 09272, 32283 ####[facility] [place] [address], USAUrea nitrogen [Mass/Vol]80 mg/dLHigh7-25The [facility] CenterComment on above:Order Comment: Check Chest Tube Position, ON ARRIVAL TO CVUPerformed By: #### 55837, 54347, 87576 ####[address] [place] [address], USACBC COMPLETE BLOOD COUNTon 74-78-3852Vwigqkyrpew distribution width (RBC) [Ratio]14.8 %Xdajup27.5-15.0The [facility] CenterComment on above:Order Comment: No: Do not add to previous drawPerformed By: #### 54082 #### [facility] [address] [place] [address], USAHematocrit (Bld) [Volume fraction]29.0 %Low39.0-50.0The [facility] CenterComment on above:Order Comment: No: Do not add to previous drawPerformed By: #### 08388 #### [facility] [address] [place] [address], USAHemoglobin (Bld) [Mass/Vol]9.6 g/dLLow13.0-17.0The [facility] CenterComment on above:Order Comment: No: Do not add to previous drawPerformed By: #### 13785 #### [facility] [address] [place] [address], USAIMM PLATELET FRAC6.2 %Normal0.8-6.3The [facility] CenterComment on above:Order Comment: No: Do not add to previous draw Performed By: #### 75542 #### [facility] [address] [place] [address], USAMCH (RBC) [Entitic mass]30.4 uoEoqfji90.0-33.0The [facility] CenterComment on above:Order Comment: No: Do not add to previous drawPerformed By: #### 78858 #### [facility] [address] [place] [address], USAMCHC (RBC) [Mass/Vol]33.1 g/kZDfazgp42.0-35.0The [facility] CenterComment on above:Order Comment: No: Do not add to previous drawPerformed By: #### 27104 #### [facility] [address] [place] [address], USAMCV (RBC) [Entitic vol]91.8 fYGdcidf52.0-98.0The [facility] CenterComment on above:Order Comment: No: Do not add to previous drawPerformed By: #### 69811 #### [facility] [address] [place] [address], USANucleated RBC/100 WBC (Bld) [Ratio]0 %Normal0-0The [facility] CenterComment on above:Order Comment: No: Do not add to previous drawPerformed By: #### 99007 #### [facility] [address] [place] [address], USAPLAT ACQ760 10*3/rZQit970-274Cwf [facility] CenterComment on above:Order Comment: No: Do not add to previous draw Performed By: #### 97732 #### [facility] [address] [facility] [place] [address], USARBC (Bld) [#/Vol]3.16 10*6/uLLow4.20-5.70The [facility] CenterComment on above:Order Comment: No: Do not add to previous drawPerformed By: #### 56288 #### [facility] [address] [facility] [place] [place] [address], USAWBC (Bld) [#/Vol]7.11 10*3/uLNormal4.00-10.60The [facility] CenterComment on above:Order Comment: No: Do not add to previous drawPerformed By: #### 54123 #### [facility] [address] [place] [address], USAMAGNESIUM BLOODon 68-46-4299Uccllodqw [Mass/Vol]2.4 mg/dL Normal1.9-2.7The [facility] CenterComment on above:Order Comment: Check Chest Tube Position, ON ARRIVAL TO CVUPerformed By: #### 47665, 16672, 27817 ####[facility] [facility] [place] [address], USAPHOSPHORUS BLOODon 49-23-4692Sfppfrkci [Mass/Vol]5.2 mg/dLHigh 2.5-5.0The [facility] CenterComment on above:Order Comment: Check Chest Tube Position, ON ARRIVAL TO UPerformed By: #### 18914, 77777, 58306 ####[facility] [place] [address], USAPORTABLE CHEST 1 VIEWon 33-67-6483IECWNHHN CHEST 1 VIEWUnBarnesville Hospital Department of Radiology [address] [place] [id number] Patient Name: IGNACIO AMIN : 1945 Sex: M Age: Race: White Pt. Location: [place] [address] Patient Status: I Ordered Date: 02/26/2022 5:00:00 AM Completed Date: 02/26/2022 06:58 AM Requesting Provider: CHRISSY HERNANDEZ Attending Provider: CHRISTIANE OLSON Report Copy To: Signs & Symptoms: Post OP History: Comments: evaluate for Effusion Exam: PORTABLE CHEST 1 VIEW PORTABLE CHEST 1 VIEW 02/26/2022 6:58 AM [...] effusions. Electronically signed: Mahesh Sanchez. Transcribed by: [email or web address], User Resident: Electronically Signed by: MAHESH SANCHEZ @ 02/26/2022 02:50 PMNormalThe [facility] CenterComment on above:Order Comment: evaluate for EffusionUS RENAL WITH BLADDERon [id number] RENAL WITH BLADDERUnBarnesville Hospital Department of Radiology [address] [place] [phone] Patient Name: IGNACIO AMIN : 1945 Sex: M Age: Race: White Pt. Location: [place] [address] Patient Status: I Ordered Date: 02/23/2022 12:10:00 PM Completed Date: 02/26/2022 06:15 PM Requesting Provider: MANUELITO WARE Attending Provider: CHRISTIANE OLSON Report Copy To: Signs & Symptoms: Decreased Urine Output/Anuria History: See Comments Comments: Other Exam: US RENAL WITH BLADDER US RENAL WITH BLADDER 02/26/2022 6:15 PM [...] noted. Electronically signed: Dennis Michel. Transcribed by: [email or web address], User Resident: Electronically Signed by: DENNIS MICHEL @ 02/26/2022 09:36 PMNormalThe [facility] CenterComment on above:Order Comment: OtherBASIC METABOLIC PANELon 41-88-7527Ckhvdbiu [Moles/Vol]97 mmol/JYum94-036Bcp [facility] CenterComment on above:Order Comment: Evaluate for PneumothoraxPerformed By: #### 52035, 44397, 88787 ####[facility] [place] [address], UN[facility] OF [facility] HOSPITALSCO2 [Moles/Vol]29 mmol/L Hbmgha21-23Lon [facility] CenterComment on above:Order Comment: Evaluate for PneumothoraxPerformed By: #### 98257, 31329, 15508 ####[facility] [place] [address], [facility] Creatinine [Mass/Vol]2.05 mg/dLHigh0.70-1.30The [facility] CenterComment on above:Order Comment: Evaluate for PneumothoraxPerformed By: #### 73278, 28117, 60764 ####[facility] [place] [address], RSSHHEB31 ml/min/1.73sq mAbnormal>60The [facility] CenterComment on above:Order Comment: Evaluate for Pneumothorax Result Comment: The [facility]'s estimated glomerular filtration rate (eGFR) [...] not disproportionately affect any one group of individuals.Performed By: #### 75368, 64694, 12388 ####[facility] [place] [address], USAGlucose [Mass/Vol] 131 mg/zTTcxj90-639Rdx [facility] CenterComment on above:Order Comment: Evaluate for PneumothoraxPerformed By: #### 29998, 38682, 91631 ####[facility] [place] [address], [place] Potassium [Moles/Vol]3.5 mmol/LNormal3.5-5.1The [facility] CenterComment on above:Order Comment: Evaluate for PneumothoraxPerformed By: #### 05854, 56909, 71116 ####[facility] [place] [address], USASodium [Moles/Vol]137 mmol/NJsvdck431-319Zgo [facility] CenterComment on above:Order Comment: Evaluate for PneumothoraxPerformed By: #### 88325, 67608, 95466 ####[facility] [place] [address], USAUrea nitrogen [Mass/Vol]75 mg/dLHigh7-25The [facility] CenterComment on above:Order Comment: Evaluate for PneumothoraxPerformed By: #### 31482, 80958, 41741 ####[facility] [place] [address], [place] Calcium [Mass/Vol]9.0 mg/dLNormal8.6-10.3The [facility] Comment on above:Order Comment: Evaluate for PneumothoraxPerformed By: #### 87065, 86339, 17877 ####[facility] [place] [address], USAOrder Comment: Check Chest Tube Position, ON ARRIVAL TO CVUPerformed By: #### 15355, 65350, 84569 ####[facility] [place] [address], USAChloride [Moles/Vol]96 mmol/LLow 98-107The [facility] CenterComment on above:Order Comment: Check Chest Tube Position, ON ARRIVAL TO CVUPerformed By: #### 90109, 47816, 21472 ####[facility] [place] [address], USACO2 [Moles/Vol]27 mmol/DEgakxc77-80Rag [facility] CenterComment on above:Order Comment: Check Chest Tube Position, ON ARRIVAL TO CVUPerformed By: #### 28388, 42428, 26882 ####[facility] [place] [address], USACreatinine [Mass/Vol]2.09 mg/dL High0.70-1.30The [facility] CenterComment on above:Order Comment: Check Chest Tube Position, ON ARRIVAL TO CVUPerformed By: #### 49377, 87672, 55711 ####[facility] [place] [address], UQMUYIR19 ml/min/1.73sq mAbnormal>60The [facility] CenterComment on above:Order Comment: Check Chest Tube Position, ON ARRIVAL TO CVUResult Comment: The [facility]'s estimated glomerular filtration rate (eGFR) [...] not disproportionately affect any one group of individuals.Performed By: #### 11353, 52710, 19874 ####[facility] [place] [address], USAGlucose [Mass/Vol] 120 mg/kUAhru14-399Bsy [facility] CenterComment on above:Order Comment: Check Chest Tube Position, ON ARRIVAL TO CVUPerformed By: #### 15672, 97263, 78709 ####[facility] [place] [address], USAPotassium [Moles/Vol]3.7 mmol/LNormal3.5-5.1The [facility] CenterComment on above:Order Comment: Check Chest Tube Position, ON ARRIVAL TO CVUPerformed By: #### 72825, 48540, 67148 ####[facility] [place] [address], USASodium [Moles/Vol]135 mmol/UYmy116-451Cxu [facility] CenterComment on above:Order Comment: Check Chest Tube Position, ON ARRIVAL TO CVUPerformed By: #### 00978, 84262, 95266 ####[facility] [place] [address], USAUrea nitrogen [Mass/Vol]67 mg/dLHigh7-25The [facility] CenterComment on above:Order Comment: Check Chest Tube Position, ON ARRIVAL TO CVUPerformed By: #### 47493, 07416, 94059 ####[facility] [place] [address], USACalcium [Mass/Vol]9.2 mg/dLNormal8.6-10.3The [facility] CenterComment on above:Order Comment: No: Do not add to previous draw Criteria for reflexing a culture was not met. Please call the lab at [phone] within 24 hours of collection time if culture is neededPerformed By: #### 80440 #### [facility] [address] [place] [address], USAChloride [Moles/Vol]96 mmol/VBcm81-836Wib [facility] CenterComment on above:Order Comment: No: Do not add to previous draw Criteria for reflexing a culture was not met. Please call the lab at [phone] within 24 hours of collection time if culture is neededPerformed By: #### 59170 #### [facility] [address] [place] [address], USACO2 [Moles/Vol]27 mmol/LSpmrcc09-16Zqu [facility] CenterComment on above:Order Comment: No: Do not add to previous draw Criteria for reflexing a culture was not met. Please call the lab at [phone] within 24 hours of collection time if culture is neededPerformed By: #### 94618 #### [facility] [address] [place] [address], USACreatinine [Mass/Vol]2.13 mg/dLHigh0.70-1.30The [facility] CenterComment on above:Order Comment: No: Do not add to previous draw Criteria for reflexing a culture was not met. Please call the lab at [phone] within 24 hours of collection time if culture is neededPerformed By: #### 18938 #### [facility] [address] [place] [address], HUTLXRU61 ml/min/1.73sq mAbnormal>60The [facility] CenterComment on above:Order Comment: No: Do not add to previous draw Criteria for reflexing a culture was not met. Please call the lab at [phone] within 24 hours of collection time if culture is neededResult Comment: The [facility]'s estimated glomerular filtration rate (eGFR) [...] not disproportionately affect any one group of individuals.Performed By: #### 11434 #### [facility] [address] [place] [address], USAGlucose [Mass/Vol]96 mg/hXUovazw35-935Fyg [facility] CenterComment on above:Order Comment: No: Do not add to previous draw Criteria for reflexing a culture was not met. Please call the lab at [phone] within 24 hours of collection time if culture is neededPerformed By: #### 14173 #### [facility] [address] [facility] [place] [address], USAPotassium [Moles/Vol]3.9 mmol/LNormal3.5-5.1The [facility] CenterComment on above:Order Comment: No: Do not add to previous draw Criteria for reflexing a culture was not met. Please call the lab at [phone] within 24 hours of collection time if culture is neededPerformed By: #### 14436 #### [facility] [address] [facility] [place] [address], USASodium [Moles/Vol]134 mmol/SAxn163-738Yem [facility] CenterComment on above:Order Comment: No: Do not add to previous draw Criteria for reflexing a culture was not met. Please call the lab at [phone] within 24 hours of collection time if culture is neededPerformed By: #### 60206 #### [facility] [address] [facility] [place] [address], USAUrea nitrogen [Mass/Vol]67 mg/dLHigh7-25The [facility] CenterComment on above:Order Comment: No: Do not add to previous draw Criteria for reflexing a culture was not met. Please call the lab at [phone] within 24 hours of collection time if culture is neededPerformed By: #### 81464 #### [facility] [address] [place] [address], [facility] HOSPITALSCBC COMPLETE BLOOD COUNTon 12-18-6869Domzqfbfukg distribution width (RBC) [Ratio]14.7 %Zdwllt39.5-15.0The [facility] CenterComment on above:Order Comment: Check Chest Tube Position, ON ARRIVAL TO CVUPerformed By: #### 86297 ####[facility] [facility] [place] [address], UN[facility] OF [facility] MEX[facility] HOSPITALSHematocrit (Bld) [Volume fraction] 28.2 %Low39.0-50.0The [facility] CenterComment on above:Order Comment: Check Chest Tube Position, ON ARRIVAL TO CVUPerformed By: #### 47332 ####[facility] [place] [address], [facility] Hemoglobin (Bld) [Mass/Vol]9.7 g/dLLow13.0-17.0The [facility] CenterComment on above:Order Comment: Check Chest Tube Position, ON ARRIVAL TO CVUPerformed By: #### 19873 ####[facility] [facility] [place] [address], [facility] HOSPITALSIMM PLATELET FRAC8.0 %High0.8-6.3The [facility] CenterComment on above:Order Comment: Check Chest Tube Position, ON ARRIVAL TO CVUPerformed By: #### 29500 ####[facility] [facility] [place] [address], [facility] CITYH (RBC) [Entitic mass]31.2 sbPcrvmb78.0-33.0The [facility] CenterComment on above:Order Comment: Check Chest Tube Position, ON ARRIVAL TO CVUPerformed By: #### 36564 ####[facility] [place] [address], [facility] HOSPITALSMCHC (RBC) [Mass/Vol]34.4 g/sJRqaabp82.0-35.0The [facility] CenterComment on above:Order Comment: Check Chest Tube Position, ON ARRIVAL TO CVUPerformed By: #### 42407 ####[facility] [facility] [place] [address], UN[facility] OF [facility] MEX[facility] HOSPITALSMCV (RBC) [Entitic vol]90.7 fL Ypgklh90.0-98.0The [facility] CenterComment on above:Order Comment: Check Chest Tube Position, ON ARRIVAL TO CVUPerformed By: #### 40074 ####[facility] [facility] [place] [address], [facility] Nucleated RBC/100 WBC (Bld) [Ratio]0 %Normal0-0The [facility] CenterComment on above:Order Comment: Check Chest Tube Position, ON ARRIVAL TO CVUPerformed By: #### 13459 ####[facility] [facility] [place] [address], UN[facility] OF [facility] HOSPITALSPLAT TUR658 10*3/mBExz207-213Eio [facility] CenterComment on above:Order Comment: Check Chest Tube Position, ON ARRIVAL TO CVUPerformed By: #### 64922 ####[facility] [facility] [place] [address], UN[facility] OF [facility] MEXICO HOSPITALSRBC (Bld) [#/Vol]3.11 10*6/uLLow4.20-5.70The [facility] CenterComment on above:Order Comment: Check Chest Tube Position, ON ARRIVAL TO CVUPerformed By: #### 28013 ####[facility] [facility] [place] [address], [facility] WBC (Bld) [#/Vol]6.70 10*3/uLNormal4.00-10.60The [facility] CenterComment on above:Order Comment: Check Chest Tube Position, ON ARRIVAL TO CVUPerformed By: #### 79883 ####[address] [place] [address], UN[facility] MEX[facility] HOSPITALSMAGNESIUM BLOODon 66-51-9736Yinoqutlb [Mass/Vol]2.3 mg/dLNormal1.9-2.7The [facility] CenterComment on above:Order Comment: Evaluate for PneumothoraxPerformed By: #### 22129, 45871, 07390 ####[facility] [place] [address], USAMagnesium [Mass/Vol]2.4 mg/dLNormal1.9-2.7The [facility] CenterComment on above:Order Comment: Check Chest Tube Position, ON ARRIVAL TO CVUPerformed By: #### 07426, 26654, 54682 ####[facility] [place] [address], USAMagnesium [Mass/Vol]2.5 mg/dLNormal1.9-2.7The [facility] CenterComment on above:Order Comment: No: Do not add to previous draw Criteria for reflexing a culture was not met. Please call the lab at 76 within 24 hours of collection time if culture is neededPerformed By: #### 85544 #### [facility] [address] [place] [address], USAPHOSPHORUS BLOODon 89-98-0801Fsvwgjekf [Mass/Vol]5.1 mg/dL High2.5-5.0The [facility] CenterComment on above:Order Comment: Evaluate for PneumothoraxPerformed By: #### 16305, 46037, 49850 ####[facility] [place] [address], [place] Phosphate [Mass/Vol]4.9 mg/dLNormal2.5-5.0The [facility] CenterComment on above:Order Comment: Check Chest Tube Position, ON ARRIVAL TO CVUPerformed By: #### 06188, 14968, 64172 ####[facility] [place] [address], USAPhosphate [Mass/Vol]4.9 mg/dL Normal2.5-5.0The [facility] CenterComment on above:Order Comment: No: Do not add to previous draw Criteria for reflexing a culture was not met. Please call the lab at [phone] within 24 hours of collection time if culture is neededPerformed By: #### 52953 #### [address] [place] [place] [address], USAPORTABLE CHEST 1 VIEWon 84-94-0358MBHXIVDX CHEST 1 VIEW [facility] Department of Radiology [address] [place] [phone] Patient Name: IGNACIO AMIN : 1945 Sex: M Age: Race: White Pt. Location: [place] [address] Patient Status: I Ordered Date: 02/25/2022 7:00:00 AM Completed Date: 02/25/2022 08:23 AM Requesting Provider: CHRISSY HERNANDEZ Attending Provider: CHRISTIANE OLSON Report Copy To: Signs & Symptoms: Post Chest Tube Removal History: Comments: Evaluate for Pneumothorax Exam: PORTABLE CHEST 1 VIEW PORTABLE CHEST 1 VIEW 02/25/2022 8:23 AM [...] Stable appearance of the chest. Electronically signed: aMhesh Sanchez. Transcribed by: [email or web address], User Resident: Electronically Signed by: MAHESH SANCHEZ @ 02/25/2022 08:33 AMNormalThe [facility] CenterComment on above:Order Comment: Evaluate for PneumothoraxARTERIAL BLOOD GAS W/COOXon 59-42-5007DCCX EXCESS-1 mmol/LNormal-2-3 The [facility] CenterComment on above:Performed By: #### 00851 #### [facility] [address] [place] [address], DEWHHHEVFP92Fjbf[address] Comment on above:Performed By: #### 10719 #### [facility] [address] [place] [address], USACOHB1.0 %Normal0.0-1.5The [facility] CenterComment on above:Performed By: #### 49543 #### [facility] [address] [place] [address], USADELIVERY J.W. Ruby Memorial HospitalComment on above:Performed By: #### 62070 #### [facility] [address] [place] [address], YFCWVV890 %NormalThe [facility] Comment on above:Performed By: #### 49428 #### [facility] [address] [place] [address], USAHCO3 (Bld) [Moles/Vol]24 mmol/UOmlijc48-07Ufw [facility] CenterComment on above:Performed By: #### 91469 #### [facility] [address] [place] [address], USAMETHB0.9 %Normal0.0-1.5The [facility] CenterComment on above:Performed By: #### 12843 #### [facility] [address] [place] [address], USAMIN VOLUME9.8NoGrand Lake Joint [facility] Comment on above:Performed By: #### 26243 #### [facility] [address] [place] [address], USAMODALITYSPONTANEOUS/TIMEDNormSalem Regional Medical CenterComment on above:Performed By: #### 84594 #### [facility] [address] [place] [address], USAOxygen (Bld) [Partial pressure]104 mm[Hg]Bsiyta86-378Upc [facility] CenterComment on above:Performed By: #### 12628 #### [facility] [address] [place] [address], USAOxygen saturation in Blood97.1 %High94.0-97.0The [facility] CenterComment on above:Performed By: #### 58703 #### [facility] [address] [place] [address], YIYTQR010 iuBbMwqyax15-13Qvy [facility] CenterComment on above:Performed By: #### 28391 #### [facility] [address] [place] [address], USAPEEP6.0 PDB97XqbbnmIgdGrand Lake Joint [facility] Comment on above:Performed By: #### 22684 #### [facility] [address] [place] [address], USApH (Bld)7.39 [pH]Normal7.35-7.45The [facility] CenterComment on above:Performed By: #### 29114 #### [facility] [address] [place] [address], USARespiratory rate14 /minNormalThUpper Valley Medical CenterComment on above:Performed By: #### 36412 #### [facility] [address] [place] [address], XPRSYC38.1 g/dLLow12.0-16.3The [facility] CenterComment on above:Performed By: #### 69616 #### [facility] [address] [place] [address], USABASIC METABOLIC PANELon 73-57-9869Ujydpfs [Mass/Vol]8.8 mg/dLNormal8.6-10.3The [facility] CenterComment on above:Order Comment: No: Do not add to previous drawPerformed By: #### 32578 #### [facility] [address] [place] [address], USAChloride [Moles/Vol]96 mmol/BHzi81-967Uxm [facility] CenterComment on above:Order Comment: No: Do not add to previous drawPerformed By: #### 29964 #### [facility] [address] [place] [address], USACO2 [Moles/Vol]22 mmol/PIjunyw19-26Wec [facility] CenterComment on above:Order Comment: No: Do not add to previous draw Performed By: #### 44179 #### [facility] [address] [place] [address], USACreatinine [Mass/Vol]2.04 mg/dLHigh0.70-1.30The [facility] CenterComment on above:Order Comment: No: Do not add to previous drawPerformed By: #### 38736 #### [facility] [address] [place] [address], ZYSFOZH58 ml/min/1.73sq mAbnormal>60The [facility] CenterComment on above:Order Comment: No: Do not add to previous draw Result Comment: The [facility]'s estimated glomerular filtration rate (eGFR) [...] not disproportionately affect any one group of individuals.Performed By: #### 52461 #### [facility] [address] [place] [address], USAGlucose [Mass/Vol]204 mg/lMUaar58-725Dhg [facility] CenterComment on above:Order Comment: No: Do not add to previous drawPerformed By: #### 85328 #### [facility] [address] [place] [address], USAPotassium [Moles/Vol]3.6 mmol/LNormal3.5-5.1The [facility] CenterComment on above:Order Comment: No: Do not add to previous drawPerformed By: #### 72434 #### [facility] [address] [place] [address], USASodium [Moles/Vol]131 mmol/WVyk191-274Zfq [facility] CenterComment on above:Order Comment: No: Do not add to previous drawPerformed By: #### 31365 #### [facility] [address] [place] [address], USAUrea nitrogen [Mass/Vol]66 mg/dLHigh7-25The [facility] CenterComment on above:Order Comment: No: Do not add to previous drawPerformed By: #### 41116 #### [facility] [address] [place] [address], USACalcium [Mass/Vol]8.9 mg/dLNormal8.6-10.3The [facility] CenterComment on above:Order Comment: evaluate for Effusion Performed By: #### 02671, 18681, 76635 ####[facility] [place] [address], USAChloride [Moles/Vol]100 mmol/L Bjelbq45-866Wyb [facility] CenterComment on above:Order Comment: evaluate for EffusionPerformed By: #### 54393, 13008, 02003 ####[facility] [place] [address], [place] CO2 [Moles/Vol]22 mmol/PAxfuae65-60Mfe [facility] Comment on above:Order Comment: evaluate for EffusionPerformed By: #### 46472, 25013, 24841 ####[facility] [place] [address], USACreatinine [Mass/Vol]2.14 mg/dLHigh0.70-1.30The [facility] CenterComment on above:Order Comment: evaluate for Effusion Performed By: #### 95004, 75292, 58620 ####[facility] [facility] [place] [address], OXEBMXA11 ml/min/1.73sq mAbnormal>60 The [facility] CenterComment on above:Order Comment: evaluate for EffusionResult Comment: The [facility]'s estimated glomerular filtration rate (eGFR) [...] not disproportionately affect any one group of individuals.Performed By: #### 18631, 45343, 98863 ####[facility] [place] [address], USAGlucose [Mass/Vol] 111 mg/pPOgqr12-282Qhl [facility] CenterComment on above:Order Comment: evaluate for EffusionPerformed By: #### 15421, 69784, 15623 ####[facility] [place] [address], [place] Potassium [Moles/Vol]3.8 mmol/LNormal3.5-5.1The [facility] CenterComment on above:Order Comment: evaluate for EffusionPerformed By: #### 02679, 60971, 28444 ####[facility] [place] [address], USASodium [Moles/Vol]134 mmol/APad919-232Vat [facility] CenterComment on above:Order Comment: evaluate for Effusion Performed By: #### 58222, 89747, 28061 ####[facility] [place] [address], USAUrea nitrogen [Mass/Vol]60 mg/dL High7-25The [facility] CenterComment on above:Order Comment: evaluate for EffusionPerformed By: #### 36144, 13974, 94540 ####[facility] [place] [address], USACBC COMPLETE BLOOD COUNTon 28-00-6509Sscdjeuvdpz distribution width (RBC) [Ratio]14.7 %Normal 11.5-15.0The [facility] CenterComment on above:Order Comment: No: Do not add to previous drawPerformed By: #### 84759 #### [facility] [address] [place] [address], USAHematocrit (Bld) [Volume fraction]28.6 %Low39.0-50.0The [facility] CenterComment on above:Order Comment: No: Do not add to previous drawPerformed By: #### 75881 #### [facility] [address] [place] [address], USAHemoglobin (Bld) [Mass/Vol]9.5 g/dLLow13.0-17.0The [facility] CenterComment on above:Order Comment: No: Do not add to previous drawPerformed By: #### 04176 #### [facility] [address] [place] [address], [facility] HOSPITALSIMM PLATELET FRAC9.2 %High0.8-6.3The [facility] CenterComment on above:Order Comment: No: Do not add to previous draw Performed By: #### 83105 #### [facility] [address] [place] [address], [facility] (RBC) [Entitic mass]30.4 znYektso57.0-33.0The [facility] CenterComment on above:Order Comment: No: Do not add to previous drawPerformed By: #### 14441 #### [facility] [address] [place] [address], [facility]HC (RBC) [Mass/Vol]33.2 g/mGNuyrqz88.0-35.0The [facility] CenterComment on above:Order Comment: No: Do not add to previous drawPerformed By: #### 47361 #### [facility] [address] [place] [address], [facility]V (RBC) [Entitic vol]91.4 fGMjrycs80.0-98.0The [facility] CenterComment on above:Order Comment: No: Do not add to previous drawPerformed By: #### 89805 #### [facility] [address] [place] [address], USANucleated RBC/100 WBC (Bld) [Ratio]0 %Normal0-0The [facility] CenterComment on above:Order Comment: No: Do not add to previous drawPerformed By: #### 02965 #### [facility] [address] [place] [address], USAPLAT CNT80 10*3/kBWlt367-241Ntt [facility] CenterComment on above:Order Comment: No: Do not add to previous draw Performed By: #### 85627 #### [facility] [address] [place] [address], USARBC (Bld) [#/Vol]3.13 10*6/uLLow4.20-5.70The [facility] CenterComment on above:Order Comment: No: Do not add to previous drawPerformed By: #### 95158 #### [facility] [address] [place] [address], USAWBC (Bld) [#/Vol]5.80 10*3/uLNormal4.00-10.60The [facility] CenterComment on above:Order Comment: No: Do not add to previous drawPerformed By: #### 18547 #### [facility] [address] [place] [address], USAMAGNESIUM BLOODon 02-86-1642Dvpvfgqnf [Mass/Vol]2.4 mg/dL Normal1.9-2.7The [facility] CenterComment on above:Performed By: #### 63548 #### [facility] [address] [place] [address], USAMagnesium [Mass/Vol]2.4 mg/dLNormal1.9-2.7The [facility] CenterComment on above:Order Comment: evaluate for Effusion Performed By: #### 71782, 55584, 47495 ####[facility] [place] [address], USAPHOSPHORUS BLOODon 02-24-2022 Phosphate [Mass/Vol]4.6 mg/dLNormal2.5-5.0The [facility] CenterComment on above:Performed By: #### 78783 #### [facility] [address] [place] [address], USAPhosphate [Mass/Vol]5.0 mg/dLNormal2.5-5.0The [facility] CenterComment on above:Order Comment: evaluate for Effusion Performed By: #### 33792, 66867, 75717 ####[facility] [facility] [place] [address], USAPORTABLE CHEST 1 VIEWon 02-24-2022 PORTABLE CHEST 1 VIEWAdena Fayette Medical Center Department of Radiology [address] [place] [address] Patient Name: IGNACIO AMIN : 1945 Sex: M Age: Race: White Pt. Location: [place] [address] Patient Status: I Ordered Date: 02/24/2022 3:00:00 PM Completed Date: 02/24/2022 03:46 PM Requesting Provider: CHRISSY HERNANDEZ Attending Provider: CHRISTIANE OLSON Report Copy To: Signs & Symptoms: Post Chest Tube Removal History: Comments: evaluate for Pneumothorax Exam: PORTABLE CHEST 1 VIEW PORTABLE CHEST 1 VIEW 02/24/2022 3:46 PM [...] pneumothorax. Electronically signed: Mahesh Sanchez. Transcribed by: [email or web address], User Resident: Electronically Signed by: MAHESH SANCHEZ @ 02/24/2022 04:00 [facility] SystemComment on above:Order Comment: evaluate for PneumothoraxPORTABLE CHEST 1 [facility]UnBarn[facility] Department of Radiology [address] [place] [address] Patient Name: IGNACIO AMIN : 1945 Sex: M Age: Race: White Pt. Location: [place] [address] Patient Status: I Ordered Date: 02/24/2022 5:00:00 AM Completed Date: 02/24/2022 07:53 AM Requesting Provider: CHRISSY HERNANDEZ Attending Provider: CHRISTIANE OLSON Report Copy To: Signs & Symptoms: Shortness of Breath History: Comments: Evaluate for Pneumothorax Exam: PORTABLE CHEST 1 VIEW PORTABLE CHEST 1 VIEW 02/24/2022 7:53 AM [...] chest. Electronically signed: Mahesh Sanchez. Transcribed by: [email or web address], User Resident: Electronically Signed by: MAHESH SANCHEZ @ 02/24/2022 08:35 [facility] HospitalComment on above:Order Comment: Check Chest Tube Position, ON [facility] B[facility]OD 02-33-6761Lvxwiea [Mass/Vol]4.0 g/dLNormal3.5-5.7The [facility] CenterComment on above: Performed By: #### 12781 #### [facility] [address] [facility] [place] [address], USAARTERIAL BLOOD GAS W/COOXon 41-27-0793RHEX EXCESS-6 mmol/L Low-2-3The [facility] CenterComment on above:Performed By: #### 45239 #### [facility] [address] [place] [address], USACOHB1.1 %Normal0.0-1.5The [facility] CenterComment on above:Performed By: #### 81591 #### [facility] [address] [facility] [place] [address], USADELIVERY SYSTEMSBIPAPNormalThe [facility] CenterComment on above:Performed By: #### 16607 #### [facility] [address] [facility] [place] [address], NNNFHF363 %NormalThe [facility] Comment on above:Performed By: #### 86072 #### [facility] [address] [facility] [place] [address], USAHCO3 (Bld) [Moles/Vol]20 mmol/WOes58-05Kbe [facility] CenterComment on above:Performed By: #### 63835 #### [facility] [address] [facility] [place] [address], USAMETHB0.7 %Normal0.0-1.5The [facility] CenterComment on above:Performed By: #### 95471 #### [facility] [address] [facility] [place] [address], USAMODALITYBIPAPNormalThe [facility] Comment on above:Performed By: #### 48539 #### [facility] [address] [facility] [place] [address], USAOxygen (Bld) [Partial pressure]134 mm[Hg]Critically high 83-108The [facility] CenterComment on above:Performed By: #### 06520 #### [facility] [address] [place] [address], USAOxygen saturation in Blood97.7 %High94.0-97.0The [facility] CenterComment on above:Performed By: #### 14116 #### [facility] [address] [place] [address], TIBZHM809 vxOsSohftn03-75Aqe [facility] CenterComment on above:Performed By: #### 51391 #### [facility] [address] [place] [address], USAPEEP6.0 JQE63ZiwiysFcs [facility] Comment on above:Performed By: #### 62488 #### [facility] [address] [place] [address], USApH (Bld)7.33 [pH]Low7.35-7.45The [facility] CenterComment on above:Performed By: #### 00081 #### [facility] [address] [place] [address], USAPRESSURE USEGJZJ68KnuhvuYif [facility] CenterComment on above:Performed By: #### 00894 #### [facility] [address] [place] [address], FQOJJP37.2 g/dLLow12.0-16.3The [facility] CenterComment on above:Performed By: #### 51147 #### [facility] [address] [place] [address], USABASIC METABOLIC PANELon 36-56-0991Wfpuula [Mass/Vol]9.2 mg/dLNormal8.6-10.3The [facility] CenterComment on above:Order Comment: evaluate for EffusionPerformed By: #### 31562, 57265, 05372, 96595 ####[facility] [facility] [place] [address], [facility] Chloride [Moles/Vol]102 mmol/SYyvphy45-225Ass [facility] CenterComment on above:Order Comment: evaluate for EffusionPerformed By: #### 29321, 13412, 86435, 91522 ####[facility] [place] [address], USACO2 [Moles/Vol]19 mmol/MBfg26-61Uhy [facility] CenterComment on above:Order Comment: evaluate for Effusion Performed By: #### 94108, 19129, 68008, 03578 ####[facility] [facility] [place] [address], [facility] HOSPITALSCreatinine [Mass/Vol]2.06 mg/dLHigh 0.70-1.30The [facility] CenterComment on above:Order Comment: evaluate for EffusionPerformed By: #### 35955, 30605, 20342, 44696 ####[facility] [facility] [place] [address], [facility] EGFR33 ml/min/1.73sq mAbnormal>60The [facility] CenterComment on above:Order Comment: evaluate for EffusionResult Comment: The [facility]'s estimated glomerular filtration rate (eGFR) [...] not disproportionately affect any one group of individuals.Performed By: #### 91838, 69360, 41383, 48694 ####[facility] [facility] [place] [address], [facility] Glucose [Mass/Vol]140 mg/xSEilq16-568Ljl [facility] Comment on above:Order Comment: evaluate for EffusionPerformed By: #### 75378, 51648, 66740, 83825 ####[facility] [place] [address], USAPotassium [Moles/Vol]4.4 mmol/LNormal3.5-5.1The [facility] CenterComment on above:Order Comment: evaluate for EffusionPerformed By: #### 06711, 54039, 48466, 87800 ####[facility] [place] [address], USASodium [Moles/Vol]132 mmol/YTjj371-169Ypl [facility] CenterComment on above:Order Comment: evaluate for EffusionPerformed By: #### 90893, , 66859, 01999 ####[facility] [place] [address], [place] Urea nitrogen [Mass/Vol]50 mg/dLHigh7-25The [facility] Comment on above:Order Comment: evaluate for EffusionPerformed By: #### 45701, , 70800, 09071 ####[facility] [place] [address], USACBC COMPLETE BLOOD COUNTon 41-11-6257Knuadmlcbju distribution width (RBC) [Ratio]14.9 %Fxpfyz85.5-15.0The [facility] CenterComment on above:Order Comment: Check Chest Tube Position, ON ARRIVAL TO CVUPerformed By: #### 21271 ####[facility] [place] [address], USAHematocrit (Bld) [Volume fraction] 30.5 %Low39.0-50.0The [facility] CenterComment on above:Order Comment: Check Chest Tube Position, ON ARRIVAL TO CVUPerformed By: #### 16801 ####[facility] Hemoglobin (Bld) [Mass/Vol]10.3 g/dLLow13.0-17.0The [facility] CenterComment on above:Order Comment: Check Chest Tube Position, ON ARRIVAL TO CVUPerformed By: #### 80716 ####[facility] [facility] [place] [address], [facility]OSPITALSIMM PLATELET FRAC10.6 %High0.8-6.3The [facility] CenterComment on above:Order Comment: Check Chest Tube Position, ON ARRIVAL TO CVUPerformed By: #### [address] ####[place] [address], [facility] (RBC) [Entitic mass]31.3 dhBiadkp48.0-33.0The [facility] CenterComment on above:Order Comment: Check Chest Tube Position, ON ARRIVAL TO CVUPerformed By: #### 76027 ####[facility] [place] [address].[place] [address], [facility]OSPITALSMCHC (RBC) [Mass/Vol]33.8 g/yCXzuleu40.0-35.0The [facility] CenterComment on above:Order Comment: Check Chest Tube Position, ON ARRIVAL TO CVUPerformed By: #### 94399 ####[address] [place] [address], [facility] (RBC) [Entitic vol]92.7 fL Miipnz47.0-98.0The [facility] CenterComment on above:Order Comment: Check Chest Tube Position, ON ARRIVAL TO CVUPerformed By: #### 52377 ####[address] [place] [address], [facility] Nucleated RBC/100 WBC (Bld) [Ratio]0 %Normal0-0The [facility] CenterComment on above:Order Comment: Check Chest Tube Position, ON ARRIVAL TO CVUPerformed By: #### 15526 ####[address]UINTA[address] BAS[address] [place] [address], USAPLAT CNT71 10*3/hAWsg966-901Wwn [facility] CenterComment on above:Order Comment: Check Chest Tube Position, ON ARRIVAL TO CVUPerformed By: #### 21558 ####[facility] [facility] [place] [address], [facility]EX[facility] HOSPITALSRBC (Bld) [#/Vol]3.29 10*6/uLLow 4.20-5.70The [facility] CenterComment on above:Order Comment: Check Chest Tube Position, ON ARRIVAL TO CVUPerformed By: #### 83607 ####[facility] [facility] [place] [address], [place] WBC (Bld) [#/Vol]8.45 10*3/uLNormal4.00-10.60The [facility] CenterComment on above:Order Comment: Check Chest Tube Position, ON ARRIVAL TO CVUPerformed By: #### 70827 ####[facility] [facility] [place] [address], [facility] HOSPITALSMAGNESIUM BLOODon 24-86-4499Uopriyfhv [Mass/Vol]2.6 mg/dLNormal1.9-2.7The [facility] CenterComment on above:Performed By: #### 34373 #### [facility] [address] [facility] [place] [address], [facility] HOSPITALSPHOSPHORUS BLOODon 02-81-9402Wnfucswjx [Mass/Vol]5.4 mg/dL High2.5-5.0The [facility] CenterComment on above:Performed By: #### 32966 #### [facility] [address] [facility] [place] [address], USAPOC GLUCOSE LABon 67-06-1073Zangzjz [Mass/Vol]144 mg/dLHigh 70-100The [facility] CenterComment on above:Performed By: #### 80239 #### [address] [place] [address], USAPORTABLE CHEST 1 VIEWon 83-05-3264FGCKTDCQ CHEST 1 VIEW [facility] Department of Radiology [address] [place] [address] Patient Name: IGNACIO AMIN : 1945 Sex: M Age: Race: White Pt. Location: [place] [address] Patient Status: I Ordered Date: 02/23/2022 5:00:00 AM Completed Date: 02/23/2022 08:00 AM Requesting Provider: CHRISSY HERNANDEZ Attending Provider: CHRISTIANE OLSON Report Copy To: Signs & Symptoms: Post OP History: Comments: evaluate for Effusion Exam: PORTABLE CHEST 1 VIEW PORTABLE CHEST 1 VIEW 02/23/2022 8:00 AM [...] disease Electronically signed: Aurora Valentino. Transcribed by: [email or web address], User Resident: Electronically Signed by: AURORA VALENTINO @ 02/23/2022 08:18 AMNormalThe [facility] CenterComment on above:Order Comment: evaluate for Effusion Pulmonary Functionon 99-70-1362Eikouwbwf FunctionMR #: [id number] [facility] PT. Name: Ignacio Amin Date: [...] Le M.D. Date Trans: 02/23/2022 07:06 A/mmo DN_JN:[id number]-Rittman HospitalARTERIAL BLOOD GAS W/COOXon 52-04-5250QHGK EXCESS-7 mmol/LLow-2-3The [facility] CenterComment on above:Performed By: #### 15433 #### [facility] [address] [place] [address], USACOHB1.4 %Normal0.0-1.5The [facility] CenterComment on above:Performed By: #### 14556 #### [facility] [address] [place] [address], USADELIVERY SYSTEMSNCNormalThe [facility] CenterComment on above:Performed By: #### 01544 #### [facility] [address] [place] [address], USAHCO3 (Bld) [Moles/Vol]19 mmol/XCqs70-95Ifu [facility] CenterComment on above:Performed By: #### 84414 #### [facility] [address] [place] [address], USALPM4.0 LPMNormalThe [facility] Comment on above:Performed By: #### 42468 #### [facility] [address] [place] [address], USAMETHB0.4 %Normal0.0-1.5The [facility] CenterComment on above:Performed By: #### 31690 #### [facility] [address] [place] [address], USAOxygen (Bld) [Partial pressure]68 mm[Hg]Nak33-550Lqj [facility] CenterComment on above:Performed By: #### 44081 #### [facility] [address] [place] [address], USAOxygen saturation in Blood93.8 %Low94.0-97.0The [facility] CenterComment on above:Performed By: #### 24760 #### [facility] [address] [place] [address], BXXGIC819 owBfGcaqnm92-58Vox [facility] CenterComment on above:Performed By: #### 15892 #### [facility] [address] [place] [address], USApH (Bld)7.33 [pH]Low7.35-7.45The [facility] CenterComment on above:Performed By: #### 64449 #### [facility] [address] [place] [address], CKMMXV84.0 g/dLLow12.0-16.3The [facility] CenterComment on above:Performed By: #### 96187 #### [facility] [address] [place] [address], USABASIC METABOLIC PANELon 18-91-2965Nuyrxisu [Moles/Vol]104 mmol/DHkkrkt82-970Cda [facility] CenterComment on above:Order Comment: Check Chest Tube Position, ON ARRIVAL TO CVUPerformed By: #### 81155 ####[facility] [place] [address], [place] CO2 [Moles/Vol]20 mmol/FMdl16-73Ozg [facility] CenterComment on above:Order Comment: Check Chest Tube Position, ON ARRIVAL TO CVUPerformed By: #### 73458 ####[facility] [facility] [place] [address], USACreatinine [Mass/Vol]1.84 mg/dLHigh0.70-1.30The [facility] CenterComment on above:Order Comment: Check Chest Tube Position, ON ARRIVAL TO CVUPerformed By: #### [id number] ####[facility] [facility] [place] [address], [id number] ml/min/1.73sq mAbnormal>60 The [facility] CenterComment on above:Order Comment: Check Chest Tube Position, ON ARRIVAL TO CVUResult Comment: [facility]'s estimated glomerular filtration rate (eGFR) [...] not disproportionately affect any one group of individuals.Performed By: #### [id number] ####[facility] [place] [address], USAGlucose [Mass/Vol]129 mg/dLHigh 70-100The [facility] CenterComment on above:Order Comment: Check Chest Tube Position, ON ARRIVAL TO CVUPerformed By: #### 22125 ####[facility] [place] [address], [place] Potassium [Moles/Vol]4.2 mmol/LNormal3.5-5.1The [facility] CenterComment on above:Order Comment: Check Chest Tube Position, ON ARRIVAL TO CVUPerformed By: #### 60603 ####[facility] [place] [address], USAUrea nitrogen [Mass/Vol]41 mg/dLHigh7-25The [facility] CenterComment on above:Order Comment: Check Chest Tube Position, ON ARRIVAL TO CVUPerformed By: #### 22907 ####[facility] [place] [address], USACalcium [Mass/Vol] 8.8 mg/dLNormal8.6-10.3The [facility] CenterComment on above: Order Comment: Check Chest Tube Position, ON ARRIVAL TO CVUPerformed By: #### 10560 ####[facility] [place] [address], USAPerformed By: #### 92667, 19471, 97475 ####[facility] [place] [address], USAChloride [Moles/Vol]105 mmol/WPyzekn68-402Zdc [facility] CenterComment on above:Order Comment: Check Chest Tube Position, ON ARRIVAL TO CVUPerformed By: #### 72531, 98917, 37865 ####[facility] [place] [address], USACO2 [Moles/Vol]19 mmol/YBuy62-28Pii [facility] CenterComment on above:Order Comment: Check Chest Tube Position, ON ARRIVAL TO CVUPerformed By: #### 55366, 39194, 91718 ####[facility] [place] [address], USACreatinine [Mass/Vol]1.60 mg/dL High0.70-1.30The [facility] CenterComment on above:Order Comment: Check Chest Tube Position, ON ARRIVAL TO CVUPerformed By: #### 37556, 55673, 15648 ####[facility] [place] [address], NGAIPOO57 ml/min/1.73sq mAbnormal>60The [facility] CenterComment on above:Order Comment: Check Chest Tube Position, ON ARRIVAL TO CVUResult Comment: [facility]'s estimated glomerular filtration rate (eGFR) [...] not disproportionately affect any one group of individuals.Performed By: #### 25536, 61301, 33853 ####[facility] [facility] [place] [address], USAGlucose [Mass/Vol] 137 mg/uYKjbe52-187Wer [facility] CenterComment on above:Order Comment: Check Chest Tube Position, ON ARRIVAL TO CVUPerformed By: #### 95239, 30042, 96060 ####[facility] [place] [address], USAPotassium [Moles/Vol]4.3 mmol/LNormal3.5-5.1The [facility] CenterComment on above:Order Comment: Check Chest Tube Position, ON ARRIVAL TO CVUPerformed By: #### 77343, 19303, 56919 ####[facility] [place] [address], USASodium [Moles/Vol]133 mmol/HKye038-192Kfo [facility] CenterComment on above:Order Comment: Check Chest Tube Position, ON ARRIVAL TO CVUPerformed By: #### 72834 ####[facility] [place] [address], [place] Performed By: #### 74875, 81396, 85555 ####[facility] [place] [address], USAUrea nitrogen [Mass/Vol]34 mg/dL High7-25The [facility] CenterComment on above:Order Comment: Check Chest Tube Position, ON ARRIVAL TO CVUPerformed By: #### 83015, 04859, 56105 ####[facility] [place] [address], USACBC COMPLETE BLOOD COUNTon 58-30-1657Gvumhaeebyl distribution width (RBC) [Ratio]14.8 %Hfxfia51.5-15.0The [facility] CenterComment on above:Order Comment: No: Do not add to previous drawPerformed By: #### 37039 #### [facility] [address] [place] [address], USAHematocrit (Bld) [Volume fraction]30.9 %Low39.0-50.0The [facility] CenterComment on above:Order Comment: No: Do not add to previous drawPerformed By: #### 39640 #### [facility] [address] [place] [address], USAHemoglobin (Bld) [Mass/Vol]10.7 g/dLLow13.0-17.0The [facility] CenterComment on above:Order Comment: No: Do not add to previous drawPerformed By: #### 70759 #### [facility] [address] [place] [address], USAIMM PLATELET FRAC7.9 %High0.8-6.3The [facility] CenterComment on above:Order Comment: No: Do not add to previous draw Performed By: #### 57128 #### [facility] [address] [place] [address], [facility] (RBC) [Entitic mass]31.4 vkJdgcqs95.0-33.0The [facility] CenterComment on above:Order Comment: No: Do not add to previous drawPerformed By: #### 93504 #### [facility] [address] [place] [address], [facility]HC (RBC) [Mass/Vol]34.6 g/iYHugtyw23.0-35.0The [facility] CenterComment on above:Order Comment: No: Do not add to previous drawPerformed By: #### 88045 #### [facility] [address] [place] [address], [facility] (RBC) [Entitic vol]90.6 vCLtdysk79.0-98.0The [facility] CenterComment on above:Order Comment: No: Do not add to previous drawPerformed By: #### 96513 #### [facility] [address] [place] [address], USANucleated RBC/100 WBC (Bld) [Ratio]0 %Normal0-0The [facility] CenterComment on above:Order Comment: No: Do not add to previous drawPerformed By: #### 65625 #### [facility] [address] [place] [address], USAPLAT CNT74 10*3/sLZtf507-237Sna [facility] CenterComment on above:Order Comment: No: Do not add to previous draw Performed By: #### 47426 #### [facility] [address] [place] [address], USARBC (Bld) [#/Vol]3.41 10*6/uLLow4.20-5.70The [facility] CenterComment on above:Order Comment: No: Do not add to previous drawPerformed By: #### 09662 #### [facility] [address] [facility] [place] [address], USAWBC (Bld) [#/Vol]9.54 10*3/uLNormal4.00-10.60The [facility] CenterComment on above:Order Comment: No: Do not add to previous drawPerformed By: #### 29070 #### [facility] [address] [facility] [place] [address], USAMAGNESIUM BLOODon 43-70-1949Irbklernj [Mass/Vol]2.3 mg/dL Normal1.9-2.7The [facility] CenterComment on above:Order Comment: Check Chest Tube Position, ON ARRIVAL TO CVUPerformed By: #### 99084, 34471, 90905 ####[facility] [facility] [place] [address], USAPHOSPHORUS BLOODon 20-00-3134Lankxynlw [Mass/Vol]3.8 mg/dLNormal 2.5-5.0The [facility] CenterComment on above:Order Comment: Check Chest Tube Position, ON ARRIVAL TO CVUPerformed By: #### 45513, 36977, 20592 ####[facility] [facility] [place] [address], USAPORTABLE CHEST 1 VIEWon 54-21-5337LNFEPEOD CHEST 1 VIEWUnBarnesville Hospital Department of Radiology [address] [place] [address] Patient Name: IGNACIO AMIN : 1945 Sex: M Age: Race: White Pt. Location: [place] [address] Patient Status: I Ordered Date: 02/22/2022 5:00:00 AM Completed Date: 02/22/2022 07:53 AM Requesting Provider: CHRISSY HERNANDEZ Attending Provider: CHRISTIANE OLSON Report Copy To: Signs & Symptoms: Shortness of Breath History: Comments: Evaluate for Pneumothorax Exam: PORTABLE CHEST 1 VIEW EXAMINATION: PORTABLE CHEST 1 VIEW 02/22/2022 7:53 [...] recommended. Electronically signed: Martin Giordano. Transcribed by: [email or web address], User Resident: Electronically Signed by: MARTIN GIORDANO @ 02/22/2022 12:04 [facility] SystemComment on above:Order Comment: Evaluate for PneumothoraxURINALYSIS REFLEXon 28-73-9623Qnuomguebx (U)CLEARNormalCLEARThe [facility] CenterComment on above:Order Comment: No: Do not add to previous draw Criteria for reflexing a culture was not met. Please call the lab at 7668 within 24 hours of collection time if culture is neededPerformed By: #### 07801 #### [facility] [address] [place] [address], USABilirubin Ql (U)NegativeNormalNEGATIVEThe [facility] CenterComment on above:Order Comment: No: Do not add to previous draw Criteria for reflexing a culture was not met. Please call the lab at 7668 within 24 hours of collection time if culture is neededPerformed By: #### 08802 #### [facility] [address] [place] [address], USAColor (U)YELLOWNormalYELLOWThe [facility] CenterComment on above:Order Comment: No: Do not add to previous draw Criteria for reflexing a culture was not met. Please call the lab at 7668 within 24 hours of collection time if culture is neededPerformed By: #### 39952 #### [facility] [address] [place] [address], USAEPISNONE SEENNormalFEW,OCC,NONE SEENThe [facility] CenterComment on above:Order Comment: No: Do not add to previous draw Criteria for reflexing a culture was not met. Please call the lab at 7668 within 24 hours of collection time if culture is neededPerformed By: #### 86438 #### [facility] [address] [place] [address], USAGlucose Ql (U)NegativeNormalNEGATIVEThe [facility] CenterComment on above:Order Comment: No: Do not add to previous draw Criteria for reflexing a culture was not met. Please call the lab at 7668 within 24 hours of collection time if culture is neededPerformed By: #### 04770 #### [facility] [address] [place] [address], USAHemoglobin Ql (U)SMALLAbnormalNEGATIVEThe [facility] CenterComment on above:Order Comment: No: Do not add to previous draw Criteria for reflexing a culture was not met. Please call the lab at 7668 within 24 hours of collection time if culture is neededPerformed By: #### 24619 #### [facility] [address] [place] [address], USAHyaline casts LM Ql (Urine sed)6-10AbnormalNONE SEENThe [facility] CenterComment on above:Order Comment: No: Do not add to previous draw Criteria for reflexing a culture was not met. Please call the lab at 7668 within 24 hours of collection time if culture is neededPerformed By: #### 47847 #### [facility] [address] [place] [address], USAKETONENegativeNormalNEGATIVEThe [facility] CenterComment on above:Order Comment: No: Do not add to previous draw Criteria for reflexing a culture was not met. Please call the lab at 7668 within 24 hours of collection time if culture is neededPerformed By: #### 83422 #### [facility] [address] [place] [address], USALEUK ESTERNegativeNormalNEGATIVEThe [facility] CenterComment on above:Order Comment: No: Do not add to previous draw Criteria for reflexing a culture was not met. Please call the lab at 7668 within 24 hours of collection time if culture is neededPerformed By: #### 13358 #### [facility] [address] [place] [address], USAMUCUS THREADSOCCAbnormalNONE SEENThe [facility] CenterComment on above:Order Comment: No: Do not add to previous draw Criteria for reflexing a culture was not met. Please call the lab at 7668 within 24 hours of collection time if culture is neededPerformed By: #### 48332 #### [facility] [address] [facility] [place] [address], USANitrite Ql (U)NegativeNormalNEGATIVEThe [facility] CenterComment on above:Order Comment: No: Do not add to previous draw Criteria for reflexing a culture was not met. Please call the lab at 7668 within 24 hours of collection time if culture is neededPerformed By: #### 81815 #### [facility] [address] [facility] [place] [address], USApH (U)5.0 [pH]Normal5.0-8.0The [facility] CenterComment on above:Order Comment: No: Do not add to previous draw Criteria for reflexing a culture was not met. Please call the lab at 7668 within 24 hours of collection time if culture is neededPerformed By: #### 06866 #### [facility] [address] [facility] [place] [address], USAProtein Ql (U)TRACEAbnormalNEGATIVEThe [facility] CenterComment on above:Order Comment: No: Do not add to previous draw Criteria for reflexing a culture was not met. Please call the lab at 7668 within 24 hours of collection time if culture is neededPerformed By: #### 39562 #### [facility] [address] [facility] [place] [address], USARBC6-10AbnormalNONE SEENThe [facility] CenterComment on above:Order Comment: No: Do not add to previous draw Criteria for reflexing a culture was not met. Please call the lab at 7668 within 24 hours of collection time if culture is neededPerformed By: #### 54745 #### [facility] [address] [facility] [place] [address], USASPEC GRAV1.061Isjzzn5.015-1.020The [facility] CenterComment on above:Order Comment: No: Do not add to previous draw Criteria for reflexing a culture was not met. Please call the lab at 7668 within 24 hours of collection time if culture is neededPerformed By: #### 54705 #### [facility] [address] [place] [address], [facility]OSPITALSWBC UA3-5AbnormalNONE SEENThe [facility] CenterComment on above:Order Comment: No: Do not add to previous draw Criteria for reflexing a culture was not met. Please call the lab at 7668 within 24 hours of collection time if culture is neededPerformed By: #### 99916 #### [facility] [address] [place] [address], USAAPTTon 46-16-4662fQMB Coag (Bld) [Time]38.0 sHigh25.0-35.0 The [facility] CenterComment on above:Order Comment: Check Chest Tube Position, ON ARRIVAL TO CVUResult Comment: ALL RESULTS MUST BE INTERPRETED WITH RESPECT TO BLOOD DRAWING ARTIFACT OR DILUTION ERROR OF ANTICOAGULANT AT THE TIME OF SAMPLING. THE APTT SHOULD NOT BE USED TO MONITOR UNFRACTIONATED HEPARIN THERAPY, THIS LABORATORY NO LONGER HAS AN ESTABLISHED THERAPEUTIC RANGE BASED ON THE APTT. IT IS RECOMMENDED THAT THE UFH - HEPARIN ASSAY (ANTI-XA ACTIVITY) BE USED FOR THIS PURPOSE.Performed By: #### 35660, 79132 ####[facility] [facility] [place] [address], [facility] BASIC METABOLIC PANELon 28-27-3948Drworlj [Mass/Vol]8.6 mg/dLNormal8.6-10.3The [facility] CenterComment on above:Order Comment: Check Chest Tube Position, ON ARRIVAL TO CVUPerformed By: #### 44263, 06505 ####[facility] [place] [address], USAChloride [Moles/Vol]107 mmol/PJnzuap55-237Soj [facility] CenterComment on above:Order Comment: Check Chest Tube Position, ON ARRIVAL TO CVUPerformed By: #### 97001, 47219 ####[facility] [place] [address], USACO2 [Moles/Vol]18 mmol/NLtf88-37Dld [facility] CenterComment on above:Order Comment: Check Chest Tube Position, ON ARRIVAL TO CVUPerformed By: #### 28878, 70333 ####[facility] [place] [address], USACreatinine [Mass/Vol]1.69 mg/dLHigh0.70-1.30The [facility] CenterComment on above:Order Comment: Check Chest Tube Position, ON ARRIVAL TO CVUPerformed By: #### 59277, 63365 ####[facility] [place] [address], CLIMWNH35 ml/min/1.73sq mAbnormal>60The [facility] CenterComment on above:Order Comment: Check Chest Tube Position, ON ARRIVAL TO CVUResult Comment: [facility]'s estimated glomerular filtration rate (eGFR) [...] not disproportionately affect any one group of individuals.Performed By: #### 02779, 56425 ####[facility] [place] [address], USAGlucose [Mass/Vol]155 mg/kEBdby42-041Gdf [facility] CenterComment on above:Order Comment: Check Chest Tube Position, ON ARRIVAL TO CVUPerformed By: #### 08095, 95305 ####[facility] [place] [address], USAPotassium [Moles/Vol]4.6 mmol/LNormal3.5-5.1The [facility] CenterComment on above:Order Comment: Check Chest Tube Position, ON ARRIVAL TO CVUPerformed By: #### 55369, 87706 ####[facility] [place] [address], USASodium [Moles/Vol]136 mmol/LNormal 136-145The [facility] CenterComment on above:Order Comment: Check Chest Tube Position, ON ARRIVAL TO CVUPerformed By: #### 93581, 96118 ####[facility] [place] [address], [place] Urea nitrogen [Mass/Vol]29 mg/dLHigh7-25The [facility] Comment on above:Order Comment: Check Chest Tube Position, ON ARRIVAL TO CVU Performed By: #### 73793, 48370 ####[facility] [place] [address], USACalcium [Mass/Vol]8.5 mg/dLLow8.6-10.3The [facility] CenterComment on above:Order Comment: evaluate for EffusionPerformed By: #### 22454, 33026, 57942 ####[facility] [place] [address], USAChloride [Moles/Vol]108 mmol/LHigh 98-107The [facility] CenterComment on above:Order Comment: evaluate for EffusionPerformed By: #### 32107, 04988, 65187 ####[facility] [place] [address], USACO2 [Moles/Vol]21 mmol/MZytyou89-46Pym [facility] CenterComment on above:Order Comment: evaluate for EffusionPerformed By: #### 95458, 46735, 98985 ####[facility] [place] [address], [place] Creatinine [Mass/Vol]1.27 mg/dLNormal0.70-1.30The [facility] CenterComment on above:Order Comment: evaluate for EffusionPerformed By: #### 36100, 49635, 61437 ####[facility] [facility] [place] [address], FINTTLQ45 ml/min/1.73sq mAbnormal>60The [facility] CenterComment on above:Order Comment: evaluate for EffusionResult Comment: [facility]'s estimated glomerular filtration rate (eGFR) [...] not disproportionately affect any one group of individuals.Performed By: #### 55368, 49172, 89395 ####[address] [place] [address], USAGlucose [Mass/Vol] 118 mg/oNCjqc59-347Ncn [facility] CenterComment on above:Order Comment: evaluate for EffusionPerformed By: #### 48454, 86501, 84056 ####[place] [address] [facility] [place] [address], [place] Potassium [Moles/Vol]4.4 mmol/LNormal3.5-5.1The [facility] CenterComment on above:Order Comment: evaluate for EffusionPerformed By: #### 77461, 79126, 02728 ####[place] [address] [facility] [place] [address], USASodium [Moles/Vol]137 mmol/ASgbdjt875-221Nhl [facility] CenterComment on above:Order Comment: evaluate for Effusion Performed By: #### 31624, 09084, 17146 ####[place] [address] [facility] [place] [address], USAUrea nitrogen [Mass/Vol]22 mg/dL Normal7-25The [facility] CenterComment on above:Order Comment: evaluate for EffusionPerformed By: #### 75848, 63674, 19141 ####[facility] [place] [address], [facility] HOSPITALSCBC COMPLETE BLOOD COUNTon 27-21-3348Kyemhubgeyh distribution width (RBC) [Ratio]14.6 %Normal 11.5-15.0The [facility] CenterComment on above:Order Comment: No: Do not add to previous drawPerformed By: #### 99169 #### [facility] [address] [place] [address], USAHematocrit (Bld) [Volume fraction]30.4 %Low39.0-50.0The [facility] CenterComment on above:Order Comment: No: Do not add to previous drawPerformed By: #### 33377 #### [facility] [address] [facility] [place] [address], USAHemoglobin (Bld) [Mass/Vol]10.4 g/dLLow13.0-17.0The [facility] CenterComment on above:Order Comment: No: Do not add to previous drawPerformed By: #### 45457 #### [facility] [address] [facility] [place] [address], USAIMM PLATELET FRAC5.8 %Normal0.8-6.3The [facility] CenterComment on above:Order Comment: No: Do not add to previous draw Performed By: #### 05417 #### [facility] [address] [facility] [place] [place] [address], [facility] (RBC) [Entitic mass]31.0 vzFwkfhl35.0-33.0The [facility] CenterComment on above:Order Comment: No: Do not add to previous drawPerformed By: #### 28147 #### [facility] [address] [place] [address], [facility]OSPITALSMCHC (RBC) [Mass/Vol]34.2 g/sDYjlqah24.0-35.0The [facility] CenterComment on above:Order Comment: No: Do not add to previous drawPerformed By: #### 48126 #### [facility] [address] [place] [address], USAMCV (RBC) [Entitic vol]90.7 oOBmqucm95.0-98.0The [facility] CenterComment on above:Order Comment: No: Do not add to previous drawPerformed By: #### 00896 #### [facility] [address] [place] [address], USANucleated RBC/100 WBC (Bld) [Ratio]0 %Normal0-0The [facility] CenterComment on above:Order Comment: No: Do not add to previous drawPerformed By: #### 39020 #### [facility] [address] [place] [address], USAPLAT CNT83 10*3/oKTvu343-725Fxb [facility] CenterComment on above:Order Comment: No: Do not add to previous draw Performed By: #### 65801 #### [facility] [address] [place] [address], USARBC (Bld) [#/Vol]3.35 10*6/uLLow4.20-5.70The [facility] CenterComment on above:Order Comment: No: Do not add to previous drawPerformed By: #### 46062 #### [facility] [address] [place] [address], USAWBC (Bld) [#/Vol]6.89 10*3/uLNormal4.00-10.60The [facility] CenterComment on above:Order Comment: No: Do not add to previous drawPerformed By: #### 73252 #### [facility] [address] [place] [address], USACOOXIMETRYon 08-70-6846SNSU8 %NormalThe [facility] CenterComment on above:Performed By: #### 23920 ####[facility] [place] [address], USAMETHB0 %NormalThe [facility] CenterComment on above:Performed By: #### 79235 ####[facility] [place] [address], [place] Oxygen saturation in Blood53.5 %Low65.0-75.0The [facility] CenterComment on above:Performed By: #### 11412 ####[facility] [place] [address], LRTHQU16.6 g/dLNormalThe [facility] CenterComment on above:Performed By: #### 47786 ####[facility] [place] [address], USALACTATE BLOODon 19-79-4154Tcbipzj [Moles/Vol]1.0 mmol/LNormal.5-2.2The [facility] CenterComment on above:Order Comment: Evaluate for PneumothoraxPerformed By: #### 63148 ####[facility] [place] [address], USAMAGNESIUM BLOODon 31-59-6324Oovgvwwdf [Mass/Vol]2.3 mg/dLNormal1.9-2.7The [facility] CenterComment on above:Order Comment: Check Chest Tube Position, ON ARRIVAL TO CVUPerformed By: #### 71525, 30086 ####[facility] [place] [address], USAMagnesium [Mass/Vol]1.9 mg/dLNormal1.9-2.7The [facility] CenterComment on above:Order Comment: evaluate for EffusionPerformed By: #### 14078, 93329, 03278 ####[facility] [place] [address], USAOperative Reporton 89-88-1886Atxjtekzo ReportMR#: [id number] I [facility]ena [facility] Pt. Name: Ignacio Amin Room #: JATIN [id number] Discharge Date: Birthdate: 1945 OPERATIVE REPORT DATE [...] anesthesia was induced. Colvin catheter was placed. Goodman-Sundar catheter was placed, which demonstrated mildly elevated [...] chest tubes were placed that were 32 English. The sternum was reapproximated with #6 wire. The fascia was (more content not included)...Normal The [facility] CenterPHOSPHORUS BLOODon 59-05-5875Doxxmsaqb [Mass/Vol]5.2 mg/dLHigh2.5-5.0The [facility] CenterComment on above:Order Comment: evaluate for EffusionPerformed By: #### 89858, 90962, 34035 ####[facility] [place] [address], [facility] POC GLUCOSE LABon 46-73-1684Gqcgnpc [Mass/Vol]124 mg/jHYzbr39-023Bnv [facility] CenterComment on above:Performed By: #### 98087 #### [facility] [address] [place] [address], [facility]OSPITALSPORTABLE CHEST 1 VIEWon 47-35-6150BWGTWHFR CHEST 1 VIEW [facility] Department of Radiology [address] [place] [id number] Patient Name: IGNACIO AMIN : 1945 Sex: M Age: Race: White Pt. Location: [id number] Patient Status: I Ordered Date: 02/21/2022 7:00:00 AM Completed Date: 02/21/2022 07:09 AM Requesting Provider: CRHISSY HERNANDEZ Attending Provider: ROSI GARDINER Report Copy To: Signs & Symptoms: Post CABG History: Comments: Check Chest Tube Position Exam: PORTABLE CHEST 1 VIEW PORTABLE CHEST 1 VIEW 02/21/2022 7:09 AM CLINICAL INDICATIONS: Post CABG TECHNOLOGIST COMMENTS: Post op - Evaluate for pneumothorax QUESTION FOR THE RADIOLOGIST: Check Chest Tube Position PROTOCOL: AP(PA) view was obtained. COMPARISON: 02/20/2022 FINDINGS: An AICD is present. A right IJ catheter terminates in the mid SVC region. The heart is enlarged with vascular prominence centrally. The Goodman-Sundar catheter tip overlies the main pulmonary outflow tract. A left chest tube remains in place with no visible pneumothorax. Strandy perihilar and basilar infiltrates are present some worsening volume loss in the lung bases is blunting of the right costophrenic angle IMPRESSION: Slight worsening of pulmonary infiltrates. Support lines and tubes remain in place. Electronically signed: Jaspreet Hastings. Transcribed by: [email or web address], User Resident: Electronically Signed by: JASPREET HASTINGS @ 02/21/2022 08:00 AMNormalThe [facility] CenterComment on above:Order Comment: Check Chest Tube Position, ON ARRIVAL TO CVUPROTHROMBIN TIMEon 26-92-2593DVC Coag (PPP) [Relative time]1.36 {INR}High0.91-1.16The [facility] Comment on above:Order Comment: Check Chest Tube Position, ON ARRIVAL TO CVU Result Comment: ACCCP RECOMMENDED INR FOR WARFARIN THERAPY ------- CONDITION INR PROPHYLAXIS OF VENOUS THROMBOSIS 2-3 (HIGH-RISK SURGERY) TREATMENT OF VENOUS THROMBOSIS 2-3 TREATMENT OF PULMONARY EMBOLISM 2-3 PREVENTION OF SYSTEMIC EMBOLISM: 2-3 ACUTE MYOCARDIAL INFARCTION TISSUE HEART VALVES VALVULAR HEART DISEASE ATRIAL FIBRILLATION RECURRENT SYSTEMIC EMBOLISM MECHANICAL HEART VALVE 2.5-3.5 FROM: ORAL ANTICOAGULANTS. MECHANISM OF ACTION, CLINICAL EFFECTIVENESS, AND OPTIMAL THERAPEUTIC RANGE. CHEST 1995;108:231S-246S.Performed By: #### 42304, 24520 ####[facility] [place] [address], USAPT Coag (PPP) [Time]16.7 s High12.3-14.8The [facility] CenterComment on above:Order Comment: Check Chest Tube Position, ON ARRIVAL TO CVUResult Comment: ALL RESULTS MUST BE INTERPRETED WITH RESPECT TO BLOOD DRAWING ARTIFACT OR DILUTION ERROR OF ANTICOAGULANT AT THE TIME OF SAMPLING.Performed By: #### 91227, 23248 ####[facility] [place] [address], USAACTIVATED CLOTTING TIMEon 51-09-1085ALSFXXRTV CLOTTING [id number] sec [id number] [facility] CenterComment on above:Performed By: #### 51503 #### [facility] [address] [place] [address], USAACTIVATED CLOTTING [id number] [facility] CenterComment on above:Performed By: #### 58427 #### [facility] [address] [place] [address], USAACTIVATED CLOTTING [id number] [facility] CenterComment on above:Performed By: #### 17528 #### [facility] [address] [place] [address], USAACTIVATED CLOTTING [id number] [facility] CenterComment on above:Performed By: #### 21460 #### [facility] [address] [place] [address], USAACTIVATED CLOTTING [id number] [facility] CenterComment on above:Performed By: #### 70647 #### [facility] [address] [place] [address], USAACTIVATED CLOTTING [id number] [facility] CenterComment on above:Performed By: #### 52539 #### [facility] [address] [place] [address], USAACTIVATED CLOTTING [id number] [facility] CenterComment on above:Performed By: #### 93790 #### [facility] [address] [place] [address], [facility]OSPITALSACTIVATED CLOTTING [id number] [facility] CenterComment on above:Performed By: #### 16428 #### [facility] [address] [place] [address], [facility]ITALSAPTBanner [facility] 10-93-0579kONO Coag (Bld) [Time]33.7 sNormal 25.0-35.0The [facility] CenterComment on above:Order Comment: Check Chest Tube Position, ON ARRIVAL TO CVUResult Comment: ALL RESULTS MUST BE INTERPRETED WITH RESPECT TO BLOOD DRAWING ARTIFACT OR DILUTION ERROR OF ANTICOAGULANT AT THE TIME OF SAMPLING. THE APTT SHOULD NOT BE USED TO MONITOR UNFRACTIONATED HEPARIN THERAPY, THIS LABORATORY NO LONGER HAS AN ESTABLISHED THERAPEUTIC RANGE BASED ON THE APTT. IT IS RECOMMENDED THAT THE UFH - HEPARIN ASSAY (ANTI-XA ACTIVITY) BE USED FOR THIS PURPOSE.Performed By: #### 21198, 41686 ####[facility] [facility] [place] [address], [facility] aPTT Coag (Bld) [Time]39.1 sHigh25.0-35.0The [facility] Comment on above:Result Comment: ALL RESULTS MUST BE INTERPRETED WITH RESPECT TO BLOOD DRAWING ARTIFACT OR DILUTION ERROR OF ANTICOAGULANT AT THE TIME OF SAMPLING. THE APTT SHOULD NOT BE USED TO MONITOR UNFRACTIONATED HEPARIN THERAPY, THIS LABORATORY NO LONGER HAS AN ESTABLISHED THERAPEUTIC RANGE BASED ON THE APTT. IT IS RECOMMENDED THAT THE UFH - HEPARIN ASSAY (ANTI-XA ACTIVITY) BE USED FOR THIS PURPOSE.Performed By: #### 06781, 44485, 57704 ####[facility] [facility] [place] [address], [place] aPTT Coag (Bld) [Time]109.3 sCritically high25.0-35.0The [facility] CenterComment on above:Order Comment: Check Chest Tube Position, ON ARRIVAL TO CVUResult Comment: Result checked and called. Accurately read back by Marie Silva at 0610Performed By: #### 19089, 97996, 62137 ####[facility] [facility] [place] [address], USAARTERIAL BLOOD GAS WITH ICAon 81-68-9437NZKG EXCESS-5 mmol/LLow-2-3The [facility] Comment on above:Performed By: #### 69085 #### [facility] [address] [facility] [place] [place] [address], USADELIVERY SYSTEMSVENTILATORNormalThe [facility] CenterComment on above:Performed By: #### 47000 #### [facility] [address] [facility] [place] [address], ROKUSX049 %NormalThe [facility] Comment on above:Performed By: #### 17536 #### [facility] [address] [facility] [place] [place] [address], USAHCO3 (Bld) [Moles/Vol]21 mmol/JOnxylc35-48Qkz [facility] CenterComment on above:Performed By: #### 15485 #### [facility] [address] [facility] [place] [place] [address], USAIONIZED CALCIUM1.20 mmol/LNormal1.13-1.32The [facility] CenterComment on above:Performed By: #### 73652 #### [facility] [address] [facility] [place] [address], USAMIN VOLUME8.1NormalThe [facility] Comment on above:Performed By: #### 25377 #### [facility] [address] [facility] [place] [place] [address], USAMODALITYPositiveNoGrand Lake Joint Township District Memorial HospitalComment on above:Performed By: #### 87739 #### [facility] [address] [place] [address], USAOxygen (Bld) [Partial pressure]125 mm[Hg]Critically high 83-108The [facility] CenterComment on above:Performed By: #### 13994 #### [facility] [address] [facility] [place] [address], USAOxygen saturation in Blood97.3 %High94.0-97.0The [facility] CenterComment on above:Performed By: #### 94845 #### [facility] [address] [facility] [place] [place] [address], JLEYFF946 [id number] [facility] CenterComment on above:Performed By: #### 43949 #### [facility] [address] [facility] [place] [place] [address], USAPEEP5.0 KDW24NldrurIcqGrand [facility] Joint [facility] Hospital Comment on above:Performed By: #### 69796 #### [facility] [address] [facility] [place] [place] [address], USAPF JAEZE125 mmHgNoGrand Lake Joint Township District Memorial HospitalComment on above:Performed By: #### 08455 #### [facility] [address] [facility] [place] [place] [address], USApH (Bld)7.34 [pH]Low7.35-7.45The [facility] CenterComment on above:Performed By: #### 82520 #### [facility] [address] [facility] [place] [place] [address], USAPRESSURE [id number] Lake Joint Township District Memorial HospitalComment on above:Performed By: #### 21206 #### [facility] [address] [facility] [place] [address], USABASE EXCESS-4 mmol/LLow-2-3The [facility] CenterComment on above:Order Comment: on arrival to CVUPerformed By: #### 69419 #### [facility] [address] [place] [address], USADELIVERY SYSTEMSVENTILATORNoGrand Lake Joint Township District Memorial HospitalComment on above:Order Comment: on arrival to CVUPerformed By: #### 68384 #### [facility] [address] [place] [address], IWSRRM216 %NormalThe [facility] Comment on above:Order Comment: on arrival to CVUPerformed By: #### 25242 #### [facility] [address] [place] [address], USAHCO3 (Bld) [Moles/Vol]22 mmol/CAufafm51-82Evv [facility] CenterComment on above:Order Comment: on arrival to CVUPerformed By: #### 20842 #### [facility] [address] [place] [address], USAIONIZED CALCIUM1.20 mmol/LNormal1.13-1.32The [facility] CenterComment on above:Order Comment: on arrival to CVUPerformed By: #### 84038 #### [facility] [address] [place] [address], USAMIN VOLUME7.4NormSalem Regional Medical [facility] Comment on above:Order Comment: on arrival to CVUPerformed By: #### 57935 #### [facility] [address] [place] [address], USAMODALITYSIMVNoGrand [facility] Comment on above:Order Comment: on arrival to CVUPerformed By: #### 54070 #### [facility] [address] [place] [address], USAOxygen (Bld) [Partial pressure]150 mm[Hg]Critically high 83-108The [facility] CenterComment on above:Order Comment: on arrival to CVUPerformed By: #### 61436 #### [facility] [address] [place] [address], USAOxygen saturation in Blood97.6 %High94.0-97.0The [facility] CenterComment on above:Order Comment: on arrival to CVU Performed By: #### 89665 #### [facility] [address] [place] [address], RAOYGH321 rhIbQzlqzc72-08Hll [facility] CenterComment on above:Order Comment: on arrival to CVUPerformed By: #### 30462 #### [facility] [address] [place] [address], USAPEEP8.0 KBN49DybcxtQauWadsworth-Rittman Hospital Comment on above:Order Comment: on arrival to CVUPerformed By: #### 81397 #### [facility] [address] [place] [address], USAPF FIPZH253 mmHgNoGrand Lake Joint Township District Memorial HospitalComment on above:Order Comment: on arrival to CVUPerformed By: #### 90443 #### [facility] [address] [place] [address], USApH (Bld)7.32 [pH]Low7.35-7.45The [facility] CenterComment on above:Order Comment: on arrival to CVUPerformed By: #### 17726 #### [facility] [address] [place] [address], USAPRESSURE [id number]-Rittman HospitalComment on above:Order Comment: on arrival to CVUPerformed By: #### 80424 #### [facility] [address] [place] [address], USARespiratory rate16 /minNormSalem Regional Medical CenterComment on above:Order Comment: on arrival to CVUPerformed By: #### 15521 #### [facility] [address] [place] [address], USATIDAL VOLUME ([place]) XK017JyfhcnRgy [facility] CenterComment on above:Order Comment: on arrival to CVUPerformed By: #### 20021 #### [facility] [address] [place] [address], USABASIC METABOLIC PANELon 81-09-5675Ccqwrsd [Mass/Vol]8.4 mg/dLLow8.6-10.3The [facility] CenterComment on above:Order Comment: evaluate for EffusionPerformed By: #### 43419, 79370, 26966, 85006, 57234 ####[facility] [place] [address], USAChloride [Moles/Vol]111 mmol/EUhyd94-865Vuy [facility] CenterComment on above:Order Comment: evaluate for EffusionPerformed By: #### 82578, 23400, 25950, 31416, 94435 ####[facility] [place] [address], USACO2 [Moles/Vol]22 mmol/LNormal 21-31The [facility] CenterComment on above:Order Comment: evaluate for EffusionPerformed By: #### 19785, 83910, 42722, 23583, 06743 ####[facility] [place] [address], [place] Creatinine [Mass/Vol]0.79 mg/dLNormal0.70-1.30The [facility] CenterComment on above:Order Comment: evaluate for EffusionPerformed By: #### 01787, 00667, 41385, 02361, 11388 ####[facility] [place] [address], USAGFR/1.73 sq M.predicted among non-blacks MDRD (S/P/Bld) [Vol rate/Area]mL/min/{1.73_m2}Normal>60The [facility] CenterComment on above:Order Comment: evaluate for EffusionResult Comment: The [facility]'s estimated glomerular filtration rate (eGFR) [...] not disproportionately affect any one group of individuals.Performed By: #### 36997, 43832, 73260, 38337, 09075 ####[facility] [place] [address], [place] Glucose [Mass/Vol]124 mg/fCNnur35-594Jbi [facility] Comment on above:Order Comment: evaluate for EffusionPerformed By: #### 50233, 31738, 36945, 90627, 29928 ####[facility] [place] [address], USAPotassium [Moles/Vol]4.5 mmol/LNormal3.5-5.1The [facility] CenterComment on above:Order Comment: evaluate for EffusionPerformed By: #### 29487, 12224, 41844, 87425, 36538 ####[facility] [place] [address], USASodium [Moles/Vol] 140 mmol/QJpzbkh537-932Wxy [facility] CenterComment on above: Order Comment: evaluate for EffusionPerformed By: #### 78310, 49581, 14078, 39883, 69813 ####[facility] [place] [address], USAUrea nitrogen [Mass/Vol]16 mg/dLNormal7-25The [facility] CenterComment on above:Order Comment: evaluate for EffusionPerformed By: #### 11726, 19640, 76675, 46602, 36605 ####[facility] [place] [address], USACalcium [Mass/Vol]7.8 mg/dLLow 8.6-10.3The [facility] CenterComment on above:Performed By: #### 75026, 43972 ####[facility] [place] [address], USAChloride [Moles/Vol]112 mmol/JBujy19-299Ajy [facility] CenterComment on above:Performed By: #### 18853, 81525 ####[facility] [place] [address], [place] CO2 [Moles/Vol]24 mmol/MVokvdf46-81Rse [facility] Comment on above:Performed By: #### 11524, 58936 ####[facility] [place] [address], USACreatinine [Mass/Vol]0.81 mg/dLNormal0.70-1.30The [facility] CenterComment on above: Performed By: #### 18790, 52110 ####[facility] [facility] [place] [address], USAGFR/1.73 sq M.predicted among non-blacks MDRD (S/P/Bld) [Vol rate/Area]mL/min/{1.73_m2}Normal>60The [facility] CenterComment on above:Result Comment: The [facility]'s estimated glomerular filtration rate (eGFR) [...] not disproportionately affect any one group of individuals.Performed By: #### 20805, 90287 ####[facility] [place] [address], USAGlucose [Mass/Vol]105 mg/cPMinx16-869Moi [facility] CenterComment on above:Performed By: #### 42313, 05223 ####[facility] [place] [address], USAPotassium [Moles/Vol]4.0 mmol/LNormal3.5-5.1The [facility] CenterComment on above:Performed By: #### 27678, 23846 ####[facility] [facility] [place] [address], USASodium [Moles/Vol]142 mmol/ZOkrjaz517-591Biu [facility] CenterComment on above:Performed By: #### 01664, 24545 ####[facility] [place] [address], USAUrea nitrogen [Mass/Vol]17 mg/dLNormal7-25The [facility] CenterComment on above:Performed By: #### 75971, 79754 ####[facility] [facility] [place] [address], USACalcium [Mass/Vol]8.9 mg/dLNormal 8.6-10.3The [facility] CenterComment on above:Order Comment: Check Chest Tube Position, ON ARRIVAL TO CVUPerformed By: #### 56133, 28989, 06875 ####[facility] [facility] [place] [address], USAChloride [Moles/Vol]110 mmol/KNkjp49-482Yyw [facility] CenterComment on above:Order Comment: Check Chest Tube Position, ON ARRIVAL TO CVUPerformed By: #### 12317, 80566, 63905 ####[facility] [place] [address], USACO2 [Moles/Vol]23 mmol/L Vjfnhr16-65Jhu [facility] CenterComment on above:Order Comment: Check Chest Tube Position, ON ARRIVAL TO CVUPerformed By: #### 58165, 92172, 42429 ####[facility] [place] [address], USACreatinine [Mass/Vol]0.90 mg/dLNormal0.70-1.30The [facility] CenterComment on above:Order Comment: Check Chest Tube Position, ON ARRIVAL TO CVUPerformed By: #### 20220, 06176, 34763 ####[facility] [facility] [place] [address], USAGFR/1.73 sq M.predicted among non-blacks MDRD (S/P/Bld) [Vol rate/Area]mL/min/{1.73_m2}Normal>60The [facility] CenterComment on above:Order Comment: Check Chest Tube Position, ON ARRIVAL TO CVUResult Comment: The [facility]'s estimated glomerular filtration rate (eGFR) [...] not disproportionately affect any one group of individuals.Performed By: #### 50840, 86453, 47918 ####[facility] [facility] [place] [address], USAGlucose [Mass/Vol] 91 mg/xDXntzfj66-501Ubm [facility] CenterComment on above: Order Comment: Check Chest Tube Position, ON ARRIVAL TO CVUPerformed By: #### 26844, 93725, 83463 ####[facility] [place] [address], [facility]OSPITALSPotassium [Moles/Vol]3.7 mmol/LNormal3.5-5.1The [facility] CenterComment on above:Order Comment: Check Chest Tube Position, ON ARRIVAL TO CVUPerformed By: #### 95374, 76765, 06525 ####[facility] [place] [address], [facility] Sodium [Moles/Vol]141 mmol/WVrsdeu326-308Syc [facility] Comment on above:Order Comment: Check Chest Tube Position, ON ARRIVAL TO CVU Performed By: #### 66823, 33582, 56161 ####[facility] [place] [address], [facility] HOSPITALSUrea nitrogen [Mass/Vol]23 mg/dL Normal7-25The [facility] CenterComment on above:Order Comment: Check Chest Tube Position, ON ARRIVAL TO CVUPerformed By: #### 78908, 78773, 54403 ####[facility] [facility] [place] [address], [facility] HOSPITALSCBC COMPLETE BLOOD COUNTon 11-22-8068Hgnodfvjnbl distribution width (RBC) [Ratio]13.9 %Epsnnm92.5-15.0The [facility] CenterComment on above:Order Comment: Check Chest Tube Position, ON ARRIVAL TO CVUPerformed By: #### 23528 ####[facility] [facility] [place] [address], [facility] HOSPITALSHematocrit (Bld) [Volume fraction]33.9 %Low39.0-50.0The [facility] CenterComment on above:Order Comment: Check Chest Tube Position, ON ARRIVAL TO CVUPerformed By: #### 84776 ####[facility] [place] [address], [facility] HOSPITALSHemoglobin (Bld) [Mass/Vol]11.1 g/dLLow13.0-17.0The [facility] CenterComment on above:Order Comment: Check Chest Tube Position, ON ARRIVAL TO CVUPerformed By: #### 61221 ####[facility] [facility] [address], UN[facility] HOSPITALSIMM PLATELET FRAC5.9 %Normal0.8-6.3The [facility] CenterComment on above:Order Comment: Check Chest Tube Position, ON ARRIVAL TO CVUPerformed By: #### 51707 ####[facility] [facility] [address], [facility] HOSPITALSMCH (RBC) [Entitic mass]30.2 pgNormal 27.0-33.0The [facility] CenterComment on above:Order Comment: Check Chest Tube Position, ON ARRIVAL TO CVUPerformed By: #### 18627 ####[facility] [facility] [place] [address], [facility] MCHC (RBC) [Mass/Vol]32.7 g/mPEjuawf32.0-35.0The [facility] CenterComment on above:Order Comment: Check Chest Tube Position, ON ARRIVAL TO CVUPerformed By: #### 52890 ####[facility] [facility] [place] [address], UN[facility] HOSPITALSMCV (RBC) [Entitic vol]92.4 vYZkfkda26.0-98.0 The [facility] CenterComment on above:Order Comment: Check Chest Tube Position, ON ARRIVAL TO CVUPerformed By: #### 09097 ####[facility] [facility] [place] [address], USANucleated RBC/100 WBC (Bld) [Ratio]0 %Normal0-0The [facility] CenterComment on above:Order Comment: Check Chest Tube Position, ON ARRIVAL TO CVUPerformed By: #### 51623 ####[facility] [place] [address], USAPLAT CNT98 10*3/lDVxu808-724Yhe [facility] Comment on above:Order Comment: Check Chest Tube Position, ON ARRIVAL TO CVU Performed By: #### 00950 ####[facility] [place] [address], USARBC (Bld) [#/Vol]3.67 10*6/uLLow4.20-5.70The [facility] CenterComment on above:Order Comment: Check Chest Tube Position, ON ARRIVAL TO CVUPerformed By: #### 10764 ####[facility] [address], USAWBC (Bld) [#/Vol]9.42 10*3/uLNormal4.00-10.60The [facility] CenterComment on above: Order Comment: Check Chest Tube Position, ON ARRIVAL TO CVUPerformed By: #### [id number] ####[facility] [facility] [place] [address], USAErythrocyte distribution width (RBC) [Ratio]13.8 %Dfjfai44.5-15.0The [facility] CenterComment on above:Performed By: #### 51016 #### [facility] [address] [facility] [place] [address], USAHematocrit (Bld) [Volume fraction]28.6 %Low39.0-50.0The [facility] CenterComment on above:Performed By: #### 94812 #### [facility] [address] [facility] [place] [id number], USAHemoglobin (Bld) [Mass/Vol]9.7 g/dLLow13.0-17.0The [facility] CenterComment on above:Performed By: #### 92397 #### [facility] [address] [facility] [place] [address], USAIMM PLATELET FRAC5.0 %Normal0.8-6.3The [facility] CenterComment on above:Performed By: #### 97123 #### [facility] [address] [facility] [place] [address], [facility] (RBC) [Entitic mass]31.3 lxZqwavf18.0-33.0The [facility] CenterComment on above:Performed By: #### 55390 #### [facility] [address] [facility] [place] [address], [facility]HC (RBC) [Mass/Vol]33.9 g/lJQuloqd36.0-35.0The [facility] CenterComment on above:Performed By: #### 18452 #### [facility] [address] [facility] [place] [address], [facility] (RBC) [Entitic vol]92.3 hYDunnel35.0-98.0The [facility] CenterComment on above:Performed By: #### 81854 #### [facility] [address] [facility] [place] [address], [facility] HOSPITALSNucleated RBC/100 WBC (Bld) [Ratio]0 %Normal0-0The [facility] CenterComment on above:Performed By: #### 12878 #### [facility] [address] [facility] [place] [address], [facility] HOSPITALSPLAT CNT73 10*3/xTQsv188-075Deu [facility] CenterComment on above:Result Comment: RESULTS CHECKEDPerformed By: #### 80112 #### [facility] [address] [facility] [place] [address], [facility] HOSPITALSRBC (Bld) [#/Vol]3.10 10*6/uLLow4.20-5.70The [facility] CenterComment on above:Performed By: #### 04950 #### [facility] [address] [facility] [place] [address], [facility] HOSPITALSWBC (Bld) [#/Vol]7.29 10*3/uLNormal4.00-10.60The [facility] CenterComment on above:Performed By: #### 27216 #### [facility] [address] [place] [address], USAErythrocyte distribution width (RBC) [Ratio]13.7 %Normal 11.5-15.0The [facility] CenterComment on above:Order Comment: No: Do not add to previous drawPerformed By: #### 49352 #### [facility] [address] [place] [address], USAHematocrit (Bld) [Volume fraction]39.5 %Bwkics15.0-50.0The [facility] CenterComment on above:Order Comment: No: Do not add to previous drawPerformed By: #### 41782 #### [facility] [address] [place] [address], USAHemoglobin (Bld) [Mass/Vol]13.4 g/yLTgumke49.0-17.0The [facility] CenterComment on above:Order Comment: No: Do not add to previous drawPerformed By: #### 02689 #### [facility] [address] [place] [address], USAIMM PLATELET FRAC6.1 %Normal0.8-6.3The [facility] CenterComment on above:Order Comment: No: Do not add to previous draw Performed By: #### 98360 #### [facility] [address] [place] [address], [facility] (RBC) [Entitic mass]30.9 uvWxiwoh47.0-33.0The [facility] CenterComment on above:Order Comment: No: Do not add to previous drawPerformed By: #### 70949 #### [facility] [address] [place] [address], [facility] HOSPITALSMCHC (RBC) [Mass/Vol]33.9 g/hFFfeajk04.0-35.0The [facility] CenterComment on above:Order Comment: No: Do not add to previous drawPerformed By: #### 25309 #### [facility] [address] [place] [id number], [facility] HOSPITALSMCV (RBC) [Entitic vol]91.2 mJHbtyuv96.0-98.0The [facility] CenterComment on above:Order Comment: No: Do not add to previous drawPerformed By: #### 41811 #### [facility] [address] [place] [address], USANucleated RBC/100 WBC (Bld) [Ratio]0 %Normal0-0The [facility] CenterComment on above:Order Comment: No: Do not add to previous drawPerformed By: #### 75101 #### [facility] [address] [place] [id number], USAPLAT [id number] 10*3/sLUsu461-106Sde [facility] CenterComment on above:Order Comment: No: Do not add to previous draw Performed By: #### 51017 #### [facility] [address] [place] [address], [facility] HOSPITALSRBC (Bld) [#/Vol]4.33 10*6/uLNormal4.20-5.70The [facility] CenterComment on above:Order Comment: No: Do not add to previous drawPerformed By: #### 94463 #### [facility] [address] [place] [address], [facility] HOSPITALSWBC (Bld) [#/Vol]4.21 10*3/uLNormal4.00-10.60The [facility] CenterComment on above:Order Comment: No: Do not add to previous drawPerformed By: #### 05400 #### [facility] [address] [place] [address], [facility] HOSPITALSCBC W/DIFFon 83-26-0655TUA IMM GRANS0.0 10*3/uLNormal 0.0-0.2The [facility] CenterComment on above:Order Comment: No: Do not add to previous drawPerformed By: #### 03104 #### [facility] [address] [place] [address], USAABS NEUTROPHILS9.6 10*3/uLHigh1.6-7.6The [facility] CenterComment on above:Order Comment: No: Do not add to previous drawPerformed By: #### 98483 #### [facility] [address] [place] [address], USABasophils (Bld) [#/Vol]0.0 10*3/uLNormal0.0-0.2The [facility] CenterComment on above:Order Comment: No: Do not add to previous drawPerformed By: #### 91493 #### [facility] [address] [place] [address], USABasophils/100 WBC (Bld)0.2 %Normal0.0-1.0The [facility] CenterComment on above:Order Comment: No: Do not add to previous drawPerformed By: #### 65762 #### [facility] [address] [facility] [place] [address], USAEosinophils (Bld) [#/Vol]0.0 10*3/uLNormal0.0-0.5The [facility] CenterComment on above:Order Comment: No: Do not add to previous drawPerformed By: #### 20384 #### [facility] [address] [place] [address], USAEosinophils/100 WBC (Bld)0.1 %Normal0.0-6.0The [facility] CenterComment on above:Order Comment: No: Do not add to previous drawPerformed By: #### 05339 #### [facility] [address] [place] [address], USAErythrocyte distribution width (RBC) [Ratio]14.1 %Normal 11.5-15.0The [facility] CenterComment on above:Order Comment: No: Do not add to previous drawPerformed By: #### 63733 #### [facility] [address] [place] [address], USAHematocrit (Bld) [Volume fraction]35.5 %Low39.0-50.0The [facility] CenterComment on above:Order Comment: No: Do not add to previous drawPerformed By: #### 68743 #### [facility] [address] [place] [address], USAHemoglobin (Bld) [Mass/Vol]11.9 g/dLLow13.0-17.0The [facility] CenterComment on above:Order Comment: No: Do not add to previous drawPerformed By: #### 58085 #### [facility] [address] [facility] [place] [address], USAIMM PLATELET FRAC5.8 %Normal0.8-6.3The [facility] CenterComment on above:Order Comment: No: Do not add to previous draw Performed By: #### 76698 #### [facility] [address] [facility] [place] [place] [address], USAIMMATURE GRANS0.3 %Normal0.0-1.0The [facility] CenterComment on above:Order Comment: No: Do not add to previous draw Performed By: #### 88419 #### [facility] [address] [facility] [place] [address], USALymphocytes (Bld) [#/Vol]0.3 10*3/uLLow1.2-4.0The [facility] CenterComment on above:Order Comment: No: Do not add to previous drawPerformed By: #### 70764 #### [facility] [address] [place] [address], USALymphocytes/100 WBC (Bld)3.1 %Low20.0-45.0The [facility] CenterComment on above:Order Comment: No: Do not add to previous drawPerformed By: #### 29534 #### [facility] [address] [place] [address], [facility] (RBC) [Entitic mass]30.6 epGtrsfx35.0-33.0The [facility] CenterComment on above:Order Comment: No: Do not add to previous drawPerformed By: #### 19500 #### [facility] [address] [place] [address], [facility]OSPITALSMCHC (RBC) [Mass/Vol]33.5 g/wOWxakns96.0-35.0The [facility] CenterComment on above:Order Comment: No: Do not add to previous drawPerformed By: #### 22625 #### [facility] [address] [place] [address], [facility] (RBC) [Entitic vol]91.3 rMIbzxzw03.0-98.0The [facility] CenterComment on above:Order Comment: No: Do not add to previous drawPerformed By: #### 05683 #### [facility] [address] [place] [address], USAMonocytes (Bld) [#/Vol]0.8 10*3/uLNormal0.1-1.0The [facility] CenterComment on above:Order Comment: No: Do not add to previous drawPerformed By: #### 43295 #### [facility] [address] [place] [address], USAMONOS7.6 %Normal5.0-12.0The [facility] CenterComment on above:Order Comment: No: Do not add to previous drawPerformed By: #### 33581 #### [facility] [address] [place] [address], USANeutrophils/100 WBC (Bld)88.7 %High40.0-72.0The [facility] CenterComment on above:Order Comment: No: Do not add to previous drawPerformed By: #### 25126 #### [facility] [address] [place] [address], USANucleated RBC/100 WBC (Bld) [Ratio]0 %Normal0-0The [facility] CenterComment on above:Order Comment: No: Do not add to previous drawPerformed By: #### 07043 #### [facility] [address] [place] [address], USAPLAT [id number] 10*3/dJJqu045-002Sod [facility] CenterComment on above:Order Comment: No: Do not add to previous draw Performed By: #### 97785 #### [facility] [address] [place] [address], USARBC (Bld) [#/Vol]3.89 10*6/uLLow4.20-5.70The [facility] CenterComment on above:Order Comment: No: Do not add to previous drawPerformed By: #### 92498 #### [facility] [address] [place] [address], USAWBC (Bld) [#/Vol]10.80 10*3/uLHigh4.00-10.60The [facility] CenterComment on above:Order Comment: No: Do not add to previous drawPerformed By: #### 36697 #### [facility] [address] [place] [address], USACOOXIMETRYon 62-35-2339PZCP1 %NormalThe [facility] CenterComment on above:Performed By: #### 90604 #### [facility] [address] [place] [address], USAMETHB1 %NormalThe [facility] Comment on above:Performed By: #### 57903 #### [facility] [address] [place] [address], USAOxygen saturation in Blood60.3 %Low65.0-75.0The [facility] CenterComment on above:Performed By: #### 70677 #### [facility] [address] [place] [address], VGXKWZ59.0 g/dLNormalThe [facility] Comment on above:Performed By: #### 13867 #### [facility] [address] [place] [address], USAFIBRINOGENon 12-99-8776XQQIOQNQQY717 mg/dZHoihsk839-358Ipo [facility] CenterComment on above:Performed By: #### 67871, 55651, 58567 ####[facility] [place] [address], USALACTATE BLOODon 49-27-7348Cnbpagp [Moles/Vol]0.9 mmol/LNormal.5-2.2 The [facility] CenterComment on above:Order Comment: Evaluate for PneumothoraxPerformed By: #### 83789 ####[facility] [place] [address], USALactate [Moles/Vol]1.1 mmol/L Normal.5-2.2The [facility] CenterComment on above:Performed By: #### 61674 ####[facility] [place] [address], USALIVER BATTERYon 60-03-0260Bmfuksl [Mass/Vol]3.5 g/dLNormal3.5-5.7 The [facility] CenterComment on above:Order Comment: evaluate for EffusionPerformed By: #### 20450, 78089, 12746, 64423, 77130 ####[facility] [place] [address], USAALKALINE PHOSPH 48 IU/OBfwitg33-164Fsi [facility] CenterComment on above:Order Comment: evaluate for EffusionPerformed By: #### 17827, 77100, 14187, 97379, 29077 ####[facility] [place] [address], USAALT [Catalytic activity/Vol]12 U/LNormal7-52The [facility] CenterComment on above:Order Comment: evaluate for EffusionPerformed By: #### 63895, 92067, 29731, 97789, 87475 ####[facility] [place] [address], USAAST [Catalytic activity/Vol]19 U/L Svunig38-21Ltk [facility] CenterComment on above:Order Comment: evaluate for EffusionPerformed By: #### 98632, 03675, 11093, 70421, 27844 ####[facility] [place] [address], USABilirubin [Mass/Vol]1.0 mg/dLNormal0.3-1.0The [facility] CenterComment on above:Order Comment: evaluate for EffusionPerformed By: #### 13893, 17237, 91601, 66735, 42557 ####[facility] [place] [address], USABilirubin.direct [Mass/Vol]0.3 mg/dLHigh0.0-0.2The [facility] CenterComment on above:Order Comment: evaluate for EffusionPerformed By: #### 88899, 63621, 37861, 80497, 31963 ####[facility] [place] [address], USAProtein [Mass/Vol]5.1 g/dLLow6.0-8.3The [facility] CenterComment on above:Order Comment: evaluate for EffusionPerformed By: #### 67506, 52176, 67502, 38303, 70140 ####[facility] [place] [address], USAMAGNESIUM BLOODon 56-39-3855Gtwyvioul [Mass/Vol]2.2 mg/dLNormal1.9-2.7The [facility] CenterComment on above:Order Comment: Evaluate for PneumothoraxPerformed By: #### 12934, 58136, 33812, 80736, 04636 ####[facility] [place] [address], USAMagnesium [Mass/Vol]2.5 mg/dLNormal1.9-2.7The [facility] CenterComment on above:Performed By: #### 22083, 62129 ####[facility] [place] [address], USAMagnesium [Mass/Vol]1.9 mg/dLNormal1.9-2.7The [facility] CenterComment on above:Order Comment: Check Chest Tube Position, ON ARRIVAL TO CVUPerformed By: #### 12947, 46277, 26070 ####[facility] [place] [address], USAPERFUSION BLOOD PANELon 21-66-1387GBLL EXCESS0.0 mmol/LNormal-2.0-3.0The [facility] CenterComment on above:Performed By: #### 25091 #### [facility] [address] [place] [address], USAGlucose [Mass/Vol]106 mg/fOTrwd76-285Plv [facility] CenterComment on above:Performed By: #### 08383 #### [facility] [address] [place] [address], USAHematocrit (Bld) [Volume fraction]28 %Ffa67-98Hny [facility] CenterComment on above:Performed By: #### 99139 #### [facility] [address] [place] [address], USAHemoglobin (Bld) [Mass/Vol]9.5 g/dLLow12.0-17.0The [facility] CenterComment on above:Performed By: #### 10025 #### [facility] [address] [place] [address], [facility] HOSPITALSIONIZED CALCIUM1.23 mmol/LNormal1.12-1.32The [facility] CenterComment on above:Performed By: #### 77561 #### [facility] [address] [facility] [place] [place] [address], USAOxygen (Bld) [Partial pressure]425.0 mm[Hg]High80.0-105.0 The [facility] CenterComment on above:Performed By: #### 29033 #### [facility] [address] [facility] [place] [address], FWHOHY869.5 arEuSsnz88.0-45.0The [facility] CenterComment on above:Performed By: #### 52150 #### [facility] [address] [facility] [place] [address], [facility] HOSPITALSpH (Bld)7.36 [pH]Normal7.35-7.45The [facility] CenterComment on above:Performed By: #### 71529 #### [facility] [address] [facility] [place] [place] [address], USAPotassium [Moles/Vol]4.0 mmol/LNormal3.5-4.9The [facility] CenterComment on above:Performed By: #### 57804 #### [facility] [address] [facility] [place] [address], USASodium [Moles/Vol]143 mmol/PLzlucu245-589Npb [facility] CenterComment on above:Performed By: #### 77939 #### [facility] [address] [facility] [place] [address], USABASE EXCESS1.0 mmol/LNormal-2.0-3.0The [facility] CenterComment on above:Performed By: #### 67764 #### [facility] [address] [place] [address], USAGlucose [Mass/Vol]112 mg/vGOmrk85-454Kyl [facility] CenterComment on above:Performed By: #### 86710 #### [facility] [address] [place] [address], UN[facility] HOSPITALSHematocrit (Bld) [Volume fraction]26 %Nmc26-56Xvm [facility] CenterComment on above:Performed By: #### 90394 #### [facility] [address] [place] [address], AGUSTINAHemoglobin (Bld) [Mass/Vol]8.8 g/dLLow12.0-17.0The [facility] CenterComment on above:Performed By: #### 30386 #### [facility] [address] [place] [address], USAIONIZED CALCIUM1.30 mmol/LNormal1.12-1.32The [facility] CenterComment on above:Performed By: #### 07643 #### [facility] [address] [place] [address], USAOxygen (Bld) [Partial pressure]390.0 mm[Hg]High80.0-105.0 The [facility] CenterComment on above:Performed By: #### 47073 #### [facility] [address] [place] [address], MHWHQC729.1 nrAhNxwutj00.0-45.0The [facility] CenterComment on above:Performed By: #### 31351 #### [facility] [address] [place] [address], USApH (Bld)7.39 [pH]Normal7.35-7.45The [facility] CenterComment on above:Performed By: #### 12976 #### [facility] [address] [place] [address], USAPotassium [Moles/Vol]4.1 mmol/LNormal3.5-4.9The [facility] CenterComment on above:Performed By: #### 30823 #### [facility] [address] [place] [address], USASodium [Moles/Vol]143 mmol/LGgmxlt328-059Cfw [facility] CenterComment on above:Performed By: #### 50293 #### [facility] [address] [place] [address], USABASE EXCESS2.0 mmol/LNormal-2.0-3.0The [facility] CenterComment on above:Performed By: #### 07921 #### [facility] [address] [place] [address], USAGlucose [Mass/Vol]119 mg/pZJgyc84-666Lke [facility] CenterComment on above:Performed By: #### 24673 #### [facility] [address] [place] [address], USAHematocrit (Bld) [Volume fraction]28 %Wvw34-91Vji [facility] CenterComment on above:Performed By: #### 91571 #### [facility] [address] [place] [address], USAHemoglobin (Bld) [Mass/Vol]9.5 g/dLLow12.0-17.0The [facility] CenterComment on above:Performed By: #### 21455 #### [facility] [address] [place] [address], USAIONIZED CALCIUM1.11 mmol/LLow1.12-1.32The [facility] CenterComment on above:Performed By: #### 67455 #### [facility] [address] [place] [address], USAOxygen (Bld) [Partial pressure]460.0 mm[Hg]High80.0-105.0 The [facility] CenterComment on above:Performed By: #### 97852 #### [facility] [address] [place] [address], ULVEKC257.0 ntQfCqeaeo42.0-45.0The [facility] CenterComment on above:Performed By: #### 68645 #### [facility] [address] [place] [address], USApH (Bld)7.43 [pH]Normal7.35-7.45The [facility] CenterComment on above:Performed By: #### 26058 #### [facility] [address] [place] [address], USAPotassium [Moles/Vol]4.6 mmol/LNormal3.5-4.9The [facility] CenterComment on above:Performed By: #### 45403 #### [facility] [address] [facility] [place] [place] [address], USASodium [Moles/Vol]141 mmol/FKmxvlr515-347Dyu [facility] CenterComment on above:Performed By: #### 18536 #### [facility] [address] [place] [address], USABASE EXCESS2.0 mmol/LNormal-2.0-3.0The [facility] CenterComment on above:Performed By: #### 56591 #### [facility] [address] [facility] [place] [address], USAGlucose [Mass/Vol]112 mg/hHClse29-065Hzf [facility] CenterComment on above:Performed By: #### 74729 #### [facility] [address] [place] [address], USAHematocrit (Bld) [Volume fraction]26 %Clo82-89Ese [facility] CenterComment on above:Performed By: #### 57600 #### [facility] [address] [place] [address], USAHemoglobin (Bld) [Mass/Vol]8.8 g/dLLow12.0-17.0The [facility] CenterComment on above:Performed By: #### 47167 #### [facility] [address] [facility] [place] [address], USAIONIZED CALCIUM1.09 mmol/LLow1.12-1.32The [facility] Medical CenterComment on above:Performed By: #### [id number] #### [facility] [address] [facility] [place] [address], USAOxygen (Bld) [Partial pressure]403.0 mm[Hg]High80.0-105.0 The [facility] CenterComment on above:Performed By: #### [id number] #### [facility] [address] [facility] [place] [address], FKBXMW029.8 htDrNwrgrv84.0-45.0The [facility] CenterComment on above:Performed By: #### [id number] #### [facility] [address] [facility] [place] [address], USApH (Bld)7.43 [pH]Normal7.35-7.45The [facility] CenterComment on above:Performed By: #### [id number] #### [facility] [address] [facility] [place] [address], USAPotassium [Moles/Vol]4.8 mmol/LNormal3.5-4.9The [facility] CenterComment on above:Performed By: #### [id number] #### [facility] [address] [place] [address], USASodium [Moles/Vol]141 mmol/OXmjmbb240-331Oty [facility] CenterComment on above:Performed By: #### [id number] #### [facility] [address] [place] [address], [place]ABASE EXCESS4.0 mmol/LHigh-2.0-3.0The [facility] CenterComment on above:Performed By: #### 70626 #### [facility] [address] [facility] [place] [address], UN[facility] HOSPITALSGlucose [Mass/Vol]102 mg/cWUhmpgf29-429Dsf [facility] CenterComment on above:Performed By: #### 22528 #### [facility] [address] [facility] [place] [address], UN[facility] HOSPITALSHematocrit (Bld) [Volume fraction]26 %Geb44-41Spj [facility] CenterComment on above:Performed By: #### 15129 #### [facility] [address] [facility] [place] [address], UN[facility] HOSPITALSHemoglobin (Bld) [Mass/Vol]8.8 g/dLLow12.0-17.0The [facility] CenterComment on above:Performed By: #### 03293 #### [facility] [address] [facility] [place] [place] [address], USAIONIZED CALCIUM1.04 mmol/LLow1.12-1.32The [facility] CenterComment on above:Performed By: #### 99261 #### [facility] [address] [facility] [place] [place] [address], USAOxygen (Bld) [Partial pressure]526.0 mm[Hg]High80.0-105.0 The [facility] CenterComment on above:Performed By: #### 10548 #### [facility] [address] [facility] [place] [place] [address], CBEWUA381.3 gzDhXcrnpq50.0-45.0The [facility] CenterComment on above:Performed By: #### 79738 #### [facility] [address] [place] [address], USApH (Bld)7.46 [pH]High7.35-7.45The [facility] CenterComment on above:Performed By: #### 16564 #### [facility] [address] [place] [address], USAPotassium [Moles/Vol]4.8 mmol/LNormal3.5-4.9The [facility] CenterComment on above:Performed By: #### 34783 #### [facility] [address] [place] [address], USASodium [Moles/Vol]140 mmol/EJttuua924-710Cpe [facility] CenterComment on above:Performed By: #### 86960 #### [facility] [address] [place] [address], USABASE EXCESS0.0 mmol/LNormal-2.0-3.0The [facility] CenterComment on above:Performed By: #### 77519 #### [facility] [address] [place] [address], USAGlucose [Mass/Vol]97 mg/zZNldwrn30-560Rom [facility] CenterComment on above:Performed By: #### 65492 #### [facility] [address] [place] [address], USAHematocrit (Bld) [Volume fraction]27 %Pnq14-92Gcd [facility] CenterComment on above:Performed By: #### 53721 #### [facility] [address] [place] [address], USAHemoglobin (Bld) [Mass/Vol]9.2 g/dLLow12.0-17.0The [facility] CenterComment on above:Performed By: #### 96452 #### [facility] [address] [place] [address], USAIONIZED CALCIUM1.03 mmol/LLow1.12-1.32The [facility] CenterComment on above:Performed By: #### 89037 #### [facility] [address] [place] [address], [facility] HOSPITALSOxygen (Bld) [Partial pressure]49.0 mm[Hg]NormalThe [facility] CenterComment on above:Performed By: #### 57692 #### [facility] [address] [facility] [place] [place] [address], UXZMUN807.2 qsWhNzonpn82.0-51.0The [facility] CenterComment on above:Performed By: #### 80265 #### [facility] [address] [facility] [place] [address], UN[facility] HOSPITALSpH (Bld)7.37 [pH]Normal7.31-7.41The [facility] CenterComment on above:Performed By: #### 55765 #### [facility] [address] [facility] [place] [address], [facility] HOSPITALSPotassium [Moles/Vol]4.5 mmol/LNormal3.5-4.9The [facility] CenterComment on above:Performed By: #### 85943 #### [facility] [address] [facility] [place] [place] [address], USASodium [Moles/Vol]141 mmol/WQwwyai295-482Gwo [facility] CenterComment on above:Performed By: #### 02815 #### [facility] [address] [facility] [place] [place] [address], USABASE EXCESS-3.0 mmol/LLow-2.0-3.0The [facility] CenterComment on above:Performed By: #### 91471 #### [facility] [address] [facility] [place] [address], USAGlucose [Mass/Vol]115 mg/tBBuhq56-433Eua [facility] CenterComment on above:Performed By: #### 79697 #### [facility] [address] [place] [address], UN[facility] HOSPITALSHematocrit (Bld) [Volume fraction]34 %Bcd67-54Huh [facility] CenterComment on above:Performed By: #### 20893 #### [facility] [address] [place] [address], UN[facility] HOSPITALSHemoglobin (Bld) [Mass/Vol]11.6 g/dLLow12.0-17.0The [facility] CenterComment on above:Performed By: #### 11454 #### [facility] [address] [facility] [place] [address], UN[facility]ERS[facility] OF [facility] HOSPITALSIONIZED CALCIUM1.27 mmol/LNormal1.12-1.32The [facility] CenterComment on above:Performed By: #### 00174 #### [facility] [address] [facility] [place] [place] [address], USAOxygen (Bld) [Partial pressure]249.0 mm[Hg]High80.0-105.0 The [facility] CenterComment on above:Performed By: #### 93033 #### [facility] [address] [facility] [place] [address], OFSTCQ742.3 trQvSify74.0-45.0The [facility] CenterComment on above:Performed By: #### 92882 #### [facility] [address] [place] [address], USApH (Bld)7.29 [pH]Low7.35-7.45The [facility] CenterComment on above:Performed By: #### 60273 #### [facility] [address] [place] [address], USAPotassium [Moles/Vol]3.9 mmol/LNormal3.5-4.9The [facility] CenterComment on above:Performed By: #### 90441 #### [facility] [address] [place] [address], USASodium [Moles/Vol]142 mmol/QZbwsmo490-689Djb [facility] CenterComment on above:Performed By: #### 21513 #### [facility] [address] [place] [address], USABASE EXCESS-1.0 mmol/LNormal-2.0-3.0The [facility] CenterComment on above:Performed By: #### 72490 #### [facility] [address] [place] [address], USAGlucose [Mass/Vol]104 mg/xLGxdoox75-302Paj [facility] CenterComment on above:Performed By: #### 74065 #### [facility] [address] [place] [address], USAHematocrit (Bld) [Volume fraction]37 %Lho80-20Zvb [facility] CenterComment on above:Performed By: #### 04652 #### [facility] [address] [place] [address], USAHemoglobin (Bld) [Mass/Vol]12.6 g/qTMokrih92.0-17.0The [facility] CenterComment on above:Performed By: #### 37809 #### [facility] [address] [place] [address], USAIONIZED CALCIUM1.34 mmol/LHigh1.12-1.32The [facility] CenterComment on above:Performed By: #### 70334 #### [facility] [address] [place] [address], USAOxygen (Bld) [Partial pressure]187.0 mm[Hg]High80.0-105.0 The [facility] CenterComment on above:Performed By: #### 26601 #### [facility] [address] [place] [address], SMDMZV879.2 drQkJimq02.0-45.0The [facility] CenterComment on above:Performed By: #### 10689 #### [facility] [address] [place] [address], USApH (Bld)7.35 [pH]Normal7.35-7.45The [facility] CenterComment on above:Performed By: #### 59728 #### [facility] [address] [place] [address], USAPotassium [Moles/Vol]4.2 mmol/LNormal3.5-4.9The [facility] CenterComment on above:Performed By: #### 05775 #### [facility] [address] [place] [address], USASodium [Moles/Vol]141 mmol/JBwummu931-599Dxd [facility] CenterComment on above:Performed By: #### 48132 #### [facility] [address] [place] [address], UN[facility] HOSPITALSPHOSPHORUS BLOODon 92-50-7831Afvxhimdw [Mass/Vol]4.1 mg/dL Normal2.5-5.0The [facility] CenterComment on above:Order Comment: Evaluate for PneumothoraxPerformed By: #### 06196, 21389, 65484, 91798, 34674 ####[facility] [place] [address], UN[facility] HOSPITALSPhosphate [Mass/Vol]3.9 mg/dLNormal2.5-5.0The [facility] CenterComment on above:Order Comment: Check Chest Tube Position, ON ARRIVAL TO CVUPerformed By: #### 57319, 58103, 62961 ####[facility] [place] [address], UNIVERS[facility] OF [facility] HOSPITALSPLATELET APHERESIS 1 UNIT on 46-15-1287EAERPWC CODE [id number] Valley Medical Center Comment on above:Performed By: #### 73812 #### [facility] [address] [place] [address], USAPRODUCT STATUS 1PProMedica Memorial HospitalComment on above:Result Comment: Result changed by IF on 02/20/2022 11:57. The previous value was XM. Result changed by IF on 02/21/2022 00:30. The previous value was IS.Performed By: #### 85900 #### [facility] [address] [place] [address], USAUNIT ABO [address] [place] [address] Comment on above:Performed By: #### 87138 #### [facility] [address] [place] [address], USAUNIT ID [id number]-Rittman HospitalComment on above:Performed By: #### 66685 #### [facility] [address] [place] [address], USAUNIT RH 1PosiVeterans Health AdministrationComment on above:Performed By: #### 40092 #### [facility] [address] [place] [address], USAPRODUCT CODE [id number] Lake Joint Township District Memorial HospitalComment on above:Performed By: #### 43905 #### [facility] [address] [place] [address], USAPRODUCT STATUS 1RENoGrand Lake Joint Township District Memorial HospitalComment on above:Result Comment: Result changed by IF on 02/21/2022 08:31. The previous value was XM.Performed By: #### 54988 #### [facility] [address] [place] [address], USAUNIT ABO [address] [place] [address] Comment on above:Performed By: #### 66996 #### [facility] [address] [place] [address], USAUNIT ID [id number] [facility] CenterComment on above:Performed By: #### 07712 #### [facility] [address] [place] [address], USAUNIT RH 1PMercy Health Lorain HospitalComment on above:Performed By: #### 96480 #### [facility] [address] [facility] [place] [address], UN[facility] OF [facility] HOSPITALSPLATELET FUNCTION SCREENon 26-52-4831YMYPMPQM/CUP355 sec Xtdwaq56-848Thl [facility] CenterComment on above:Result Comment: This pattern is usually indicative of drug induced platelet dysfunction, most commonly seen after aspirin ingestion. Review patient chart information for prescription and non-prescription medication. If medication is ruled out, this pattern has also been reported with storage pool deficiency and platelet secretion defects. Platelet aggregation testing and/or platelet electron microscopy may be warranted.Performed By: #### 81456 ####[facility] [facility] [place] [address], USACOLLAGEN/DZVFQEJHPYR100 vmuWgek96-491Npt [facility] CenterComment on above:Performed By: #### 62443 ####[facility] [facility] [place] [address], [place] POC GLUCOSE LABon 21-97-1381Ahiuhtr [Mass/Vol]141 mg/vTZjum99-336Zfu [facility] CenterComment on above:Performed By: #### 96117 #### [facility] [address] [facility] [place] [address], USAGlucose [Mass/Vol]122 mg/oNWefr56-276Ona [facility] CenterComment on above:Performed By: #### 18406 #### [facility] [address] [place] [address], USAGlucose [Mass/Vol]101 mg/yKXbzv41-167Vtg [facility] CenterComment on above:Performed By: #### 17992 #### [address] [place] [address], USAPOC SARS COV2 IDon [id number]-CoV-2 (COVID-19) RNA JJ+probe Ql (Unsp spec)NegativeNormalNEGATIVEThe [facility] CenterComment on above:Result Comment: ID NOW COVID-19 assay performed on the ID NOW [...] Waiver, Certificate of Compliance, or Certificate of Accreditation.Performed By: #### 38913 #### [address] [place] [place] [address], USAPORTABLE CHEST 1 VIEWon [id number] CHEST 1 VIEW [facility] Department of Radiology [address] [place] [id number] Patient Name: IGNACIO AMIN : 1945 Sex: M Age: Race: White Pt. Location: [address] [place] [address] Patient Status: I Ordered Date: 02/20/2022 12:30:00 PM Completed Date: 02/20/2022 03:29 PM Requesting Provider: CHRISSY HERNANDEZ Attending Provider: ROSI GARDINER Report Copy To: Signs & Symptoms: Post CABG History: Comments: Check Chest Tube Position, ON ARRIVAL TO CVU Exam: PORTABLE CHEST 1 VIEW PORTABLE CHEST 1 VIEW 02/20/2022 3:29 PM [...] left Electronically signed: Quinten Nagel. Transcribed by: [id number], User Resident: Electronically Signed by: QUINTEN NAGEL @ 02/20/2022 03:53 PMNormalThe [facility] CenterComment on above:Order Comment: Check Chest Tube Position, ON ARRIVAL TO CVUPROTHROMBIN TIMEon 11-01-9111UYD Coag (PPP) [Relative time]1.34 {INR}High0.91-1.16The [facility] Comment on above:Order Comment: Check Chest Tube Position, ON ARRIVAL TO CVU Result Comment: ACCCP RECOMMENDED INR FOR WARFARIN THERAPY ------- CONDITION INR PROPHYLAXIS OF VENOUS THROMBOSIS 2-3 (HIGH-RISK SURGERY) TREATMENT OF VENOUS THROMBOSIS 2-3 TREATMENT OF PULMONARY EMBOLISM 2-3 PREVENTION OF SYSTEMIC EMBOLISM: 2-3 ACUTE MYOCARDIAL INFARCTION TISSUE HEART VALVES VALVULAR HEART DISEASE ATRIAL FIBRILLATION RECURRENT SYSTEMIC EMBOLISM MECHANICAL HEART VALVE 2.5-3.5 FROM: ORAL ANTICOAGULANTS. MECHANISM OF ACTION, CLINICAL EFFECTIVENESS, AND OPTIMAL THERAPEUTIC RANGE. CHEST 1995;108:231S-246S.Performed By: #### 24780, 63856 ####[facility] [facility] [place] [address], USAPT Coag (PPP) [Time]16.4 s High12.3-14.8The [facility] CenterComment on above:Order Comment: Check Chest Tube Position, ON ARRIVAL TO [facility] Comment: ALL RESULTS MUST BE INTERPRETED WITH RESPECT TO BLOOD DRAWING ARTIFACT OR DILUTION ERROR OF ANTICOAGULANT AT THE TIME OF SAMPLING.Performed By: #### 45057, 11709 ####[facility] [facility].[place] [address], USAINR Coag (PPP) [Relative time]1.72 {INR}High0.91-1.16The [facility] CenterComment on above:Result Comment: ACCCP RECOMMENDED INR FOR WARFARIN THERAPY ------- CONDITION INR PROPHYLAXIS OF VENOUS THROMBOSIS 2-3 (HIGH-RISK SURGERY) TREATMENT OF VENOUS THROMBOSIS 2-3 TREATMENT OF PULMONARY EMBOLISM 2-3 PREVENTION OF SYSTEMIC EMBOLISM: 2-3 ACUTE MYOCARDIAL INFARCTION TISSUE HEART VALVES VALVULAR HEART DISEASE ATRIAL FIBRILLATION RECURRENT SYSTEMIC EMBOLISM MECHANICAL HEART VALVE 2.5-3.5 FROM: ORAL ANTICOAGULANTS. MECHANISM OF ACTION, CLINICAL EFFECTIVENESS, AND OPTIMAL THERAPEUTIC RANGE. CHEST 1995;108:231S-246S.Performed By: #### 67784, 37423, 52122 ####[facility] [facility] [place] [address], USAPT Coag (PPP) [Time]19.9 sHigh12.3-14.8The [facility] CenterComment on above:Result Comment: ALL RESULTS MUST BE INTERPRETED WITH RESPECT TO BLOOD DRAWING ARTIFACT OR DILUTION ERROR OF ANTICOAGULANT AT THE TIME OF SAMPLING.Performed By: #### 88073, 86225, 54048 ####[facility] [facility] [place] [address], USAINR Coag (PPP) [Relative time]1.07 {INR}Normal0.91-1.16 The [facility] CenterComment on above:Order Comment: Check Chest Tube Position, ON ARRIVAL TO [facility] Comment: ACCCP RECOMMENDED INR FOR WARFARIN THERAPY ------- CONDITION INR PROPHYLAXIS OF VENOUS THROMBOSIS 2-3 (HIGH-RISK SURGERY) TREATMENT OF VENOUS THROMBOSIS 2-3 TREATMENT OF PULMONARY EMBOLISM 2-3 PREVENTION OF SYSTEMIC EMBOLISM: 2-3 ACUTE MYOCARDIAL INFARCTION TISSUE HEART VALVES VALVULAR HEART DISEASE ATRIAL FIBRILLATION RECURRENT SYSTEMIC EMBOLISM MECHANICAL HEART VALVE 2.5-3.5 FROM: ORAL ANTICOAGULANTS. MECHANISM OF ACTION, CLINICAL EFFECTIVENESS, AND OPTIMAL THERAPEUTIC RANGE. CHEST 1995;108:231S-246S.Performed By: #### 89875, 89393, 09094 ####[facility] [place] [address], USAPT Coag (PPP) [Time]13.9 pHmoila99.3-14.8The [facility] CenterComment on above:Order Comment: Check Chest Tube Position, ON ARRIVAL TO CVUResult Comment: ALL RESULTS MUST BE INTERPRETED WITH RESPECT TO BLOOD DRAWING ARTIFACT OR DILUTION ERROR OF ANTICOAGULANT AT THE TIME OF SAMPLING.Performed By: #### 74387, 78555, 97854 ####[facility] [facility] [place] [address], USATROPONIN-Ion 82-23-2402Htvibdyt I.cardiac [Mass/Vol] 1.58 ng/mLCritically high0.00-0.04The [facility] CenterComment on above:Order Comment: Evaluate for PneumothoraxResult Comment: M-TROPONIN INITIAL CRITICAL HIGH; RESPUN AND RETESTED M-CRITICAL RESULT(S) REVIEWED, CALLED TO AND READ BACK BY VINH MARADIAGA RN ON 02/20/2022 AT 17:27 REFERENCE RANGES: 0.00 - 0.04 ng/ml NORMAL 0.05 - 0.50 ng/ml INDETERMINATE > 0.50 ng/ml CONSISTENT WITH AN M.I.Performed By: #### 34314, 27576, 84799, 87005, 93615 ####[facility] [facility] [place] [address], USAUFH HEPARIN ASSAYon [id number] HEPARIN0.44 IU/mL Normal0.30-0.70The [facility] CenterComment on above:Result Comment: Rivaroxaban and Apixaban will interfere with the anti Xa assay used to monitor UFH and LMWH.Performed By: #### 47812, 30621, 93941 ####[facility] [facility] [place] [address], USACBC COMPLETE BLOOD COUNTon 15-57-7723Whpsscgjyfh distribution width (RBC) [Ratio]13.7 %Normal 11.5-15.0The [facility] CenterComment on above:Order Comment: No: Do not add to previous drawPerformed By: #### 01506 #### [facility] [address] [place] [address], USAHematocrit (Bld) [Volume fraction]37.9 %Low39.0-50.0The [facility] CenterComment on above:Order Comment: No: Do not add to previous drawPerformed By: #### 08465 #### [facility] [address] [facility] [place] [address], USAHemoglobin (Bld) [Mass/Vol]13.0 g/fPHmjggu41.0-17.0The [facility] CenterComment on above:Order Comment: No: Do not add to previous drawPerformed By: #### 09341 #### [facility] [address] [place] [address], USAIMM PLATELET FRAC5.4 %Normal0.8-6.3The [facility] CenterComment on above:Order Comment: No: Do not add to previous draw Performed By: #### 62008 #### [facility] [address] [facility] [place] [address], [facility] CITYH (RBC) [Entitic mass]31.2 boWpvvqx54.0-33.0The [facility] CenterComment on above:Order Comment: No: Do not add to previous drawPerformed By: #### 08610 #### [facility] [address] [facility] [place] [address], [facility] HOSPITALSMCHC (RBC) [Mass/Vol]34.3 g/hHMvywxy68.0-35.0The [facility] CenterComment on above:Order Comment: No: Do not add to previous drawPerformed By: #### 58477 #### [facility] [address] [facility]. [place] [address], USAMCV (RBC) [Entitic vol]90.9 yFDtuobu04.0-98.0The [facility] CenterComment on above:Order Comment: No: Do not add to previous drawPerformed By: #### 65792 #### [facility] [address] [place] [address], USANucleated RBC/100 WBC (Bld) [Ratio]0 %Normal0-0The [facility] CenterComment on above:Order Comment: No: Do not add to previous drawPerformed By: #### 72511 #### [facility] [address] [facility]. [place] [address], USAPLAT KFC106 10*3/vBZpl569-486Buf [facility] CenterComment on above:Order Comment: No: Do not add to previous draw Performed By: #### 63500 #### [facility] [address] [facility] [place] [address], USARBC (Bld) [#/Vol]4.17 10*6/uLLow4.20-5.70The [facility] CenterComment on above:Order Comment: No: Do not add to previous drawPerformed By: #### 99530 #### [facility] [address] [facility] [place] [address], USAWBC (Bld) [#/Vol]4.86 10*3/uLNormal4.00-10.60The [facility] CenterComment on above:Order Comment: No: Do not add to previous drawPerformed By: #### 61181 #### [facility] [address] [facility]. [place] [address], USARBC'S 4 UNITSon 49-72-5587PWGBUTUJXY INTERP [address] [place], [place] [address]Comment on above:Order Comment: Check Chest Tube Position, ON ARRIVAL TO CVUPerformed By: #### 69823 ####[facility] [place] [address], USACROSSMATCH INTERP 2 [facility]by General HospitalComment on above:Order Comment: Check Chest Tube Position, ON ARRIVAL TO CVUPerformed By: #### 27487 ####[facility] [place] [address], [place] CROSSMATCH INTERP 3CSelect Medical Specialty Hospital - CantonComment on above:Order Comment: Check Chest Tube Position, ON ARRIVAL TO CVUPerformed By: #### 60861 ####[facility] [facility] [place] [address], USACROSSMATCH INTERP 4CSelect Medical Specialty Hospital - Canton Comment on above:Order Comment: Check Chest Tube Position, ON ARRIVAL TO CVU Performed By: #### 61392 ####[facility] [facility] [place] [address], USAPRODUCT CODE [id number]-Rittman HospitalComment on above:Order Comment: Check Chest Tube Position, ON ARRIVAL TO CVUPerformed By: #### 00501 ####[facility] [facility] [place] [address], [place] CODE [id number] Lake Joint Township District Memorial HospitalComment on above:Order Comment: Check Chest Tube Position, ON ARRIVAL TO CVUPerformed By: #### [id number] ####[facility] [facility] [place] [address], [place] CODE [id number] W[facility]sworth-Rittman HospitalComment on above:Order Comment: Check Chest Tube Position, ON ARRIVAL TO CVUPerformed By: #### [id number] ####[facility] [facility] [place] [address], [place] PRODUCT CODE [id number]-Rittman HospitalComment on above:Order Comment: Check Chest Tube Position, ON ARRIVAL TO CVUPerformed By: #### [id number] ####[facility] [place] [address], [place]AP[employer] STATUS 1PProMedica Memorial HospitalComment on above:Order Comment: Check Chest Tube Position, ON ARRIVAL TO CVUResult Comment: Result changed by IF on 02/20/2022 10:14. The previous value was XM. Result changed by IF on 02/20/2022 13:28. The previous value was IS. Result changed by IF on 02/20/2022 16:45. The previous value was XM. Result changed by IF on 02/21/2022 00:30. The previous value was IS.Performed By: #### [id number] ####[facility] [place] [address], USAPRODUCT STATUS 2RSamaritan Hospital Comment on above:Order Comment: Check Chest Tube Position, ON ARRIVAL TO CVU Result Comment: Result changed by IF on 02/20/2022 10:18. The previous value was XM. Result changed by IF on 02/20/2022 13:28. The previous value was IS. Result changed by IF on 02/21/2022 08:07. The previous value was XM. Result changed by IF on 02/21/2022 09:26. The previous value was XX.Performed By: #### [id number] ####[facility] [place] [address], USAPRODUCT STATUS 3P[facility] Comment on above:Order Comment: Check Chest Tube Position, ON ARRIVAL TO CVU Result Comment: Result changed by IF on 02/20/2022 10:18. The previous value was XM. Result changed by IF on 02/20/2022 13:28. The previous value was IS. Result changed by IF on 02/20/2022 15:06. The previous value was XM. Result changed by IF on 02/21/2022 00:30. The previous value was IS.Performed By: #### [id number] ####[facility] [place] [address], USAPRODUCT STATUS 4RSamar[facility] Comment on above:Order Comment: Check Chest Tube Position, ON ARRIVAL TO CVU Result Comment: Result changed by IF on 02/20/2022 10:18. The previous value was XM. Result changed by IF on 02/20/2022 13:28. The previous value was IS. Result changed by IF on 02/21/2022 08:07. The previous value was XM. Result changed by IF on 02/21/2022 12:36. The previous value was XX.Performed By: #### [id number] ####[facility] [place] [address], USAUNIT ABO 1[facility] CenterComment on above:Order Comment: Check Chest Tube Position, ON ARRIVAL TO CVUPerformed By: #### [id number] ####[facility] [place] [address], USAUNIT ABO 2[facility] CenterComment on above:Order Comment: Check Chest Tube Position, ON ARRIVAL TO CVUPerformed By: #### [id number] ####[facility] [place] [address], USAUNIT ABO 3[facility] CenterComment on above:Order Comment: Check Chest Tube Position, ON ARRIVAL TO CVUPerformed By: #### [id number] ####[facility] [place] [address], USAUNIT ABO 4[facility] CenterComment on above:Order Comment: Check Chest Tube Position, ON ARRIVAL TO CVUPerformed By: #### [id number] ####[facility] [place] [address], USAUNIT ID [id number] [facility] Hospital Comment on above:Order Comment: Check Chest Tube Position, ON ARRIVAL TO CVU Performed By: #### [id number] ####[facility] [place] [address], USAUNIT ID [id number] Main Campus Medical CenterComment on above:Order Comment: Check Chest Tube Position, ON ARRIVAL TO CVUPerformed By: #### [id number] ####[facility] [place] [address], USAUNIT ID [id number] Christ HospitalComment on above:Order Comment: Check Chest Tube Position, ON ARRIVAL TO CVUPerformed By: #### [id number] ####[facility] [facility] [place] [address], USAUNIT ID 4 [id number] Hardin Memorial HospitalComment on above: Order Comment: Check Chest Tube Position, ON ARRIVAL TO CVUPerformed By: #### [id number] ####[facility] [facility] [place] [address], USAUNIT RH 1PositiveWadsworth-Rittman HospitalComment on above:Order Comment: Check Chest Tube Position, ON ARRIVAL TO CVUPerformed By: #### [id number] ####[facility] [place] [address], USAUNIT RH 2PosiVeterans Health Administration Comment on above:Order Comment: Check Chest Tube Position, ON ARRIVAL TO CVU Performed By: #### [id number] ####[facility] [place] [address], USAUNIT RH 3PositiveWadsworth-Rittman HospitalComment on above:Order Comment: Check Chest Tube Position, ON ARRIVAL TO CVUPerformed By: #### [id number] ####[facility] [place] [address], USAUNIT RH 4PositiveWadsworth-Rittman HospitalComment on above:Order Comment: Check Chest Tube Position, ON ARRIVAL TO CVUPerformed By: #### [id number] ####[facility] [place] [address], USATYPE AND SCREENon 65-15-2517SSK INTERPRETATIONONoGrand Lake Joint Township District Memorial HospitalComment on above: Performed By: #### 24026 #### [facility] [address] [place] [address], USARH INTERPRETATIONPositiveNoGrand Lake Joint Township District Memorial HospitalComment on above:Performed By: #### 71751 #### [facility] [address] [place] [address], USAUFH HEPARIN ASSAYon [id number] HEPARIN0.73 IU/mLHigh0.30-0.70The [facility] CenterComment on above:Result Comment: Rivaroxaban and Apixaban will interfere with the anti Xa assay used to monitor UFH and LMWH.Performed By: #### [id number] ####[facility] [place] [address], USAUNFRACTIONATED HEPARIN0.78 IU/mL High0.30-0.70The [facility] CenterComment on above:Result Comment: Rivaroxaban and Apixaban will interfere with the anti Xa assay used to monitor UFH and LMWH.Performed By: #### 75516 ####[facility] [place] [address], USAUNFRACTIONATED HEPARIN0.76 IU/mL High0.30-0.70The [facility] CenterComment on above:Result Comment: Rivaroxaban and Apixaban will interfere with the anti Xa assay used to monitor UFH and LMWH.Performed By: #### 77135 ####[facility] [place] [address], USABASIC METABOLIC PANELon 02-18-2022 Calcium [Mass/Vol]9.1 mg/dLNormal8.6-10.3The [facility] Comment on above:Order Comment: Evaluate for PneumothoraxPerformed By: #### 48103, 49578 ####[facility] [place] [address], USAChloride [Moles/Vol]109 mmol/VYwow27-374Sth [facility] CenterComment on above:Order Comment: Evaluate for PneumothoraxPerformed By: #### 95565, 13369 ####[facility] [place] [address], USACO2 [Moles/Vol]27 mmol/ZZoynai15-00Udj [facility] CenterComment on above:Order Comment: Evaluate for Pneumothorax Performed By: #### 17252, 19771 ####[facility] [place] [address], USACreatinine [Mass/Vol]0.86 mg/dLNormal 0.70-1.30The [facility] CenterComment on above:Order Comment: Evaluate for PneumothoraxPerformed By: #### 46699, 11161 ####[facility] [place] [address], USAGFR/1.73 sq M.predicted among non-blacks MDRD (S/P/Bld) [Vol rate/Area]mL/min/{1.73_m2} Normal>60The [facility] CenterComment on above:Order Comment: Evaluate for PneumothoraxResult Comment: [facility]'s estimated glomerular filtration rate (eGFR) [...] not disproportionately affect any one group of individuals.Performed By: #### 62010, 70012 ####[facility] [place] [address], USAGlucose [Mass/Vol]92 mg/dL Pbmlcy14-963Wan [facility] CenterComment on above:Order Comment: Evaluate for PneumothoraxPerformed By: #### 31560, 49635 ####[facility] [place] [address], USAPotassium [Moles/Vol]4.0 mmol/LNormal3.5-5.1The [facility] CenterComment on above:Order Comment: Evaluate for PneumothoraxPerformed By: #### 74137, 98086 ####[facility] [place] [address], USASodium [Moles/Vol]141 mmol/TLpkkcm765-884Zsw [facility] CenterComment on above:Order Comment: Evaluate for PneumothoraxPerformed By: #### 08343, 35205 ####[facility] [place] [address], USAUrea nitrogen [Mass/Vol]23 mg/dLNormal7-25The [facility] CenterComment on above:Order Comment: Evaluate for PneumothoraxPerformed By: #### 70300, 09805 ####[facility] [place] [address], USACBC COMPLETE BLOOD COUNTon 59-63-1402Hgxmoqfynvk distribution width (RBC) [Ratio]13.7 %Eqdosq08.5-15.0The [facility] CenterComment on above:Order Comment: No: Do not add to previous drawPerformed By: #### 33269 #### [facility] [address] [place] [address], USAHematocrit (Bld) [Volume fraction]40.8 %Rtrtpn41.0-50.0The [facility] CenterComment on above:Order Comment: No: Do not add to previous drawPerformed By: #### 89403 #### [facility] [address] [place] [address], USAHemoglobin (Bld) [Mass/Vol]13.7 g/jABnbhfk20.0-17.0The [facility] CenterComment on above:Order Comment: No: Do not add to previous drawPerformed By: #### 88668 #### [facility] [address] [place] [address], UN[facility]ERS[facility] HOSPITALSIMM PLATELET FRAC6.8 %High0.8-6.3The [facility] CenterComment on above:Order Comment: No: Do not add to previous draw Performed By: #### 30409 #### [facility] [address] [place] [address], [facility]H (RBC) [Entitic mass]31.4 veMpemgq99.0-33.0The [facility] CenterComment on above:Order Comment: No: Do not add to previous drawPerformed By: #### 49619 #### [facility] [address] [place] [address], [facility]HC (RBC) [Mass/Vol]33.6 g/vYEcyrsa47.0-35.0The [facility] CenterComment on above:Order Comment: No: Do not add to previous drawPerformed By: #### 78528 #### [facility] [address] [place] [address], [facility]V (RBC) [Entitic vol]93.6 uCYmdizi77.0-98.0The [facility] CenterComment on above:Order Comment: No: Do not add to previous drawPerformed By: #### 17603 #### [facility] [address] [place] [address], USANucleated RBC/100 WBC (Bld) [Ratio]0 %Normal0-0The [facility] CenterComment on above:Order Comment: No: Do not add to previous drawPerformed By: #### [id number] #### [facility] [address] [place] [address], USAPLAT ZLR320 10*3/qZTzk441-599Hwd [facility] CenterComment on above:Order Comment: No: Do not add to previous draw Performed By: #### 11751 #### [facility] [address] [place] [address], USARBC (Bld) [#/Vol]4.36 10*6/uLNormal4.20-5.70The [facility] CenterComment on above:Order Comment: No: Do not add to previous drawPerformed By: #### 79865 #### [facility] [address] [place] [address], USAWBC (Bld) [#/Vol]6.17 10*3/uLNormal4.00-10.60The [facility] CenterComment on above:Order Comment: No: Do not add to previous drawPerformed By: #### 03030 #### [facility] [address] [place] [address], USAMAGNESIUM BLOODon 09-91-2952Whaccxuta [Mass/Vol]2.0 mg/dL Normal1.9-2.7The [facility] CenterComment on above:Order Comment: Evaluate for PneumothoraxPerformed By: #### 07911, 82995 ####[facility] [place] [address], USAUFH HEPARIN ASSAYon 28-81-2748ZHOFRRRBXPUUTU HEPARIN0.78 IU/mLHigh0.30-0.70The [facility] CenterComment on above:Result Comment: Rivaroxaban and Apixaban will interfere with the anti Xa assay used to monitor UFH and LMWH.Performed By: #### 08937 ####[facility] [place] [address], USAPOC SARS COV2 ANTIGEN NEGATIVEon 33-69-4124LQP SARS COV2 ANTIGEN NEGNegativeNormalNEGATIVEThe [facility] CenterComment on above:Result Comment: Negative results should be treated as presumptive and [...] antigen from SARS-CoV-2 in direct nasopharyngeal swab (TAX COMMISSIONER) specimens from individuals who are suspected of [...] Waiver, Certificate of Compliance, or Certificate of Accreditation.Performed By: #### 58302 #### [facility] [address] StreetAPTTon 46-82-2327jNCE Coag (Bld) [Time]33.3 sNormal 25.0-35.0The [facility] CenterComment on above:Order Comment: Check Chest Tube Position, [facility] Comment: ALL RESULTS MUST BE INTERPRETED WITH RESPECT TO BLOOD DRAWING ARTIFACT OR DILUTION ERROR OF ANTICOAGULANT AT THE TIME OF SAMPLING. THE APTT SHOULD NOT BE USED TO MONITOR UNFRACTIONATED HEPARIN THERAPY, THIS LABORATORY NO LONGER HAS AN ESTABLISHED THERAPEUTIC RANGE BASED ON THE APTT. IT IS RECOMMENDED THAT THE UFH - HEPARIN ASSAY (ANTI-XA ACTIVITY) BE USED FOR THIS PURPOSE.Performed By: #### 29483, 17334 ####[facility] CBC COMPLETE BLOOD COUNTon 80-44-7263Kzbffwmvqap distribution width (RBC) [Ratio]13.8 %Szfhnj62.5-15.0The [facility] CenterComment on above:Order Comment: No: Do not add to previous drawPerformed By: #### 13530 #### [facility] [address] [place] [address], USAHematocrit (Bld) [Volume fraction]40.2 %Jthufg42.0-50.0The [facility] CenterComment on above:Order Comment: No: Do not add to previous drawPerformed By: #### 27820 #### [facility] [address] [place] [address], USAHemoglobin (Bld) [Mass/Vol]13.5 g/sJFvqrql57.0-17.0The [facility] CenterComment on above:Order Comment: No: Do not add to previous drawPerformed By: #### 23669 #### [facility] [address] [place] [address], USAIMM PLATELET FRAC5.7 %Normal0.8-6.3The [facility] CenterComment on above:Order Comment: No: Do not add to previous draw Performed By: #### 85852 #### [facility] [address] [facility] [place] [address], [facility] (RBC) [Entitic mass]31.0 atKwhhnm67.0-33.0The [facility] CenterComment on above:Order Comment: No: Do not add to previous drawPerformed By: #### 60892 #### [facility] [address] [place] [address], [facility] (RBC) [Mass/Vol]33.6 g/rGZhxwxs23.0-35.0The [facility] CenterComment on above:Order Comment: No: Do not add to previous drawPerformed By: #### 70252 #### [facility] [address] [place] [address], [facility] HOSPITALSMCV (RBC) [Entitic vol]92.4 yPPygxqy88.0-98.0The [facility] CenterComment on above:Order Comment: No: Do not add to previous drawPerformed By: #### 45267 #### [facility] [address] [place] [address], USANucleated RBC/100 WBC (Bld) [Ratio]0 %Normal0-0The [facility] CenterComment on above:Order Comment: No: Do not add to previous drawPerformed By: #### 97767 #### [facility] [address] [place] [address], USAPLAT FHC753 10*3/oZHko517-396Vmj [facility] CenterComment on above:Order Comment: No: Do not add to previous draw Performed By: #### 00451 #### [facility] [address] [place] [address], USARBC (Bld) [#/Vol]4.35 10*6/uLNormal4.20-5.70The [facility] CenterComment on above:Order Comment: No: Do not add to previous drawPerformed By: #### 66115 #### [facility] [address] [place] [address], USAWBC (Bld) [#/Vol]6.37 10*3/uLNormal4.00-10.60The [facility] CenterComment on above:Order Comment: No: Do not add to previous drawPerformed By: #### 98049 #### [facility] [address] [place] [address], USACOMP METABOLIC PANELon 25-29-8700Kpnmhgl [Mass/Vol]3.5 g/dL Normal3.5-5.7The [facility] CenterComment on above:Order Comment: No: Do not add to previous draw Criteria for reflexing a culture was not met. Please call the lab at 7668 within 24 hours of collection time if culture is neededPerformed By: #### 36073 #### [facility] [address] [place] [address], USAALKALINE PRXNGE92 IU/KAovmpo99-037Awp [facility] CenterComment on above:Order Comment: No: Do not add to previous draw Criteria for reflexing a culture was not met. Please call the lab at 7668 within 24 hours of collection time if culture is neededPerformed By: #### 15350 #### [facility] [address] [place] [address], USAALT [Catalytic activity/Vol]14 U/LNormal7-52The [facility] CenterComment on above:Order Comment: No: Do not add to previous draw Criteria for reflexing a culture was not met. Please call the lab at 7668 within 24 hours of collection time if culture is neededPerformed By: #### 67574 #### [facility] [address] [place] [address], USAAST [Catalytic activity/Vol]13 U/PNrforl24-56Tgr [facility] CenterComment on above:Order Comment: No: Do not add to previous draw Criteria for reflexing a culture was not met. Please call the lab at 7668 within 24 hours of collection time if culture is neededPerformed By: #### 44690 #### [facility] [address] [place] [address], USABilirubin [Mass/Vol]0.7 mg/dLNormal0.3-1.0The [facility] CenterComment on above:Order Comment: No: Do not add to previous draw Criteria for reflexing a culture was not met. Please call the lab at 7668 within 24 hours of collection time if culture is neededPerformed By: #### 86987 #### [facility] [address] [place] [address], USACalcium [Mass/Vol]8.9 mg/dLNormal8.6-10.3The [facility] CenterComment on above:Order Comment: No: Do not add to previous draw Criteria for reflexing a culture was not met. Please call the lab at 7668 within 24 hours of collection time if culture is neededPerformed By: #### 58040 #### [facility] [address] [place] [address], USAChloride [Moles/Vol]108 mmol/MNhgm41-997Tsl [facility] CenterComment on above:Order Comment: No: Do not add to previous draw Criteria for reflexing a culture was not met. Please call the lab at 7668 within 24 hours of collection time if culture is neededPerformed By: #### 85335 #### [facility] [address] [place] [address], USACO2 [Moles/Vol]24 mmol/MLbusuy60-32Bph [facility] CenterComment on above:Order Comment: No: Do not add to previous draw Criteria for reflexing a culture was not met. Please call the lab at 7668 within 24 hours of collection time if culture is neededPerformed By: #### 29403 #### [facility] [address] [place] [address], USACreatinine [Mass/Vol]0.91 mg/dLNormal0.70-1.30The [facility] CenterComment on above:Order Comment: No: Do not add to previous draw Criteria for reflexing a culture was not met. Please call the lab at 7668 within 24 hours of collection time if culture is neededPerformed By: #### 99836 #### [facility] [address] [facility] [place] [address], USAGFR/1.73 sq M.predicted among non-blacks MDRD (S/P/Bld) [Vol rate/Area]mL/min/{1.73_m2}Normal>60The [facility] Comment on above:Order Comment: No: Do not add to previous draw Criteria for reflexing a culture was not met. Please call the lab at 7668 within 24 hours of collection time if culture is neededResult Comment: [facility]'s estimated glomerular filtration rate (eGFR) [...] not disproportionately affect any one group of individuals.Performed By: #### 38616 #### [facility] [address] [place] [address], USAGlucose [Mass/Vol]97 mg/qTCbigpe29-320Bbw [facility] CenterComment on above:Order Comment: No: Do not add to previous draw Criteria for reflexing a culture was not met. Please call the lab at 7668 within 24 hours of collection time if culture is neededPerformed By: #### 96445 #### [facility] [address] [place] [address], USAPotassium [Moles/Vol]4.1 mmol/LNormal3.5-5.1The [facility] CenterComment on above:Order Comment: No: Do not add to previous draw Criteria for reflexing a culture was not met. Please call the lab at 7668 within 24 hours of collection time if culture is neededPerformed By: #### 98401 #### [facility] [address] [place] [address], USAProtein [Mass/Vol]5.8 g/dLLow6.0-8.3The [facility] CenterComment on above:Order Comment: No: Do not add to previous draw Criteria for reflexing a culture was not met. Please call the lab at 7668 within 24 hours of collection time if culture is neededPerformed By: #### 85029 #### [facility] [address] [place] [address], USASodium [Moles/Vol]139 mmol/RBowdek823-968Sfo [facility] CenterComment on above:Order Comment: No: Do not add to previous draw Criteria for reflexing a culture was not met. Please call the lab at 7668 within 24 hours of collection time if culture is neededPerformed By: #### 29923 #### [facility] [address] [facility] [place] [address], USAUrea nitrogen [Mass/Vol]26 mg/dLHigh7-25The [facility] CenterComment on above:Order Comment: No: Do not add to previous draw Criteria for reflexing a culture was not met. Please call the lab at 7668 within 24 hours of collection time if culture is neededPerformed By: #### 23554 #### [facility] [address] [facility] [place] [address], USACTA CHESTon [id number] [facility] Department of Radiology [address] [place] [address] Patient Name: IGNACIO AMIN : 1945 Sex: M Age: Race: White Pt. Location: [address] [place] [address] Patient Status: O Ordered Date: 02/16/2022 9:45:00 AM Completed Date: 02/16/2022 10:47 AM Requesting Provider: CATIA GTZ Attending Provider: ROSI GARDINER Report Copy To: Signs & Symptoms: Other History: See Comments Comments: Other, pre-op testing CABG Exam: CTA CHEST STUDY: CT angiography of the chest with [...] achievable. Electronically signed: Mahesh Sanchez. Transcribed by: [email or web address], User Resident: Electronically Signed by: MAHESH SANCHEZ @ 02/20/2022 08:38 AMNormalThe [facility] CenterComment on above:Order Comment: Check Chest Tube Position, ON ARRIVAL TO CVUCardiovascular Lab Reporton 02-16-2022 [facility] Name: Ign[facility] Sarita MR #: [id number] Department of Physician: Nora Garcia M.D. Division of Service Date: 02/15/2022 Cardiology Birthdate: 1945 Adult Cardiovascular Room #: 3AB [id number] [place] [address] Cardiovascular Laboratory Report FINAL IMPRESSIONS: 1. Severe, [...] the left radial artery was obtained. A 6-English 11 cm sheath was inserted without difficulty. [...] coronary arteries. It shows a heavily calcific hdo-ou-vyzlbi stenosis estimated to be 80% to 85% [...] Saeed M.D. Date Trans: 02/16/2022 05:09 A/anirudh DN_[id number] cc: Elliot Rosales M.D. [address] [place] [id number]-Rittman HospitalDIRECT BILIon [id number].direct [Mass/Vol]0.1 mg/dLNormal0.0-0.2The [facility] CenterComment on above:Order Comment: No: Do not add to previous draw Criteria for reflexing a culture was not met. Please call the lab at 7668 within 24 hours of collection time if culture is neededPerformed By: #### 00501 #### [facility] [address] [facility] [place] [address], UN[facility]ITY OF [facility] HOSPITALSHEMOGLOBIN A1Con 41-15-8391Gbamken [Moles/Vol]120 mmol/L NormalThe Adena [facility] Medical CenterComment on above:Order Comment: Check Chest Tube Position, ON ARRIVAL TO CVUPerformed By: #### [id number] ####[facility] [place] [address], [place] HbA1c (Bld) [Mass fraction]5.8 %Normal4.0-6.0The [facility] CenterComment on above:Order Comment: Check Chest Tube Position, ON ARRIVAL TO CVUPerformed By: #### [id number] ####[facility] [place] [address], USALIPID PROFILEon 37-90-8582Hgjwzqcdqrd [Mass/Vol]110 mg/kDQnm878-470Gtt [facility] CenterComment on above:Order Comment: No: Do not add to previous draw Criteria for reflexing a culture was not met. Please call the lab at [phone] within 24 hours of collection time if culture is neededResult Comment: CHOLESTEROL REFERENCE RANGE: 20 YEARS AND OLDER CARDIOVASCULAR RISK Less than 200 mg/dl Low Risk 200 to 239 mg/dl Borderline Risk 240 mg/dl and greater High RiskPerformed By: #### [id number] #### [facility] [address] [place] [address], USACholesterol in HDL [Mass/Vol]30 mg/qDFsvzau85-82Gju [facility] CenterComment on above:Order Comment: No: Do not add to previous draw Criteria for reflexing a culture was not met. Please call the lab at [phone] within 24 hours of collection time if culture is neededResult Comment: Slight variation in normal range could be due to gender and/or age. HDL CHOLESTEROL REFERENCE RANGE: 20 years and older Cardiovascular Risk > or =60 mg/dL Desirable 40 TO 59 mg/dL Low Risk <40 mg/dL High RiskPerformed By: #### [id number] #### [facility] [address] [facility] [place] [address], USACholesterol in LDL [Mass/Vol]47 mg/dLNormal0-130The [facility] CenterComment on above:Order Comment: No: Do not add to previous draw Criteria for reflexing a culture was not met. Please call the lab at [phone] within 24 hours of collection time if culture is neededResult Comment: LDL IS A CALCULATION LDL IS ONLY VALID IF THE TRIG IS LESS THAN 400.Performed By: #### [id number] #### [facility] [address] [place] [address], USACholesterol.total/Cholesterol in HDL [Mass ratio]3.7 {ratio}Normal.0-4.5The [facility] CenterComment on above:Order Comment: No: Do not add to previous draw Criteria for reflexing a culture was not met. Please call the lab at [phone] within 24 hours of collection time if culture is neededPerformed By: #### [id number] #### [facility] [address] [place] [address], USANON-HDL RLPXWWOOPQP69 mg/dLNormalThe [facility] CenterComment on above:Order Comment: No: Do not add to previous draw Criteria for reflexing a culture was not met. Please call the lab at [phone] within 24 hours of collection time if culture is neededPerformed By: #### [id number] #### [facility] [address] [place] [address], USATriglyceride [Mass/Vol]164 mg/yGRrye94-886Ovi [facility] CenterComment on above:Order Comment: No: Do not add to previous draw Criteria for reflexing a culture was not met. Please call the lab at [phone] within 24 hours of collection time if culture is neededResult Comment: TRIGLYCERIDE REFERENCE RANGE: 20 YEARS AND OLDER CARDIOVASCULAR RISK LESS THAN 150 mg/dl LOW RISK 150 TO 199 mg/dl BORDERLINE RISK 200 mg/dl AND GREATER HIGH RISKPerformed By: #### [id number] #### [facility] [address] [facility] [place] [address], USAVLDL CHOL33 mg/dLNormal0-40The [facility] CenterComment on above:Order Comment: No: Do not add to previous draw Criteria for reflexing a culture was not met. Please call the lab at [phone] within 24 hours of collection time if culture is neededPerformed By: #### [id number] #### [facility] [address] [place] [address], USAMAGNESIUM BLOODon 51-06-1710Aimtikleo [Mass/Vol]1.9 mg/dL Normal1.9-2.7The [facility] CenterComment on above:Order Comment: No: Do not add to previous drawPerformed By: #### [id number] #### [facility] [address] [place] [address], USAPHOSPHORUS BLOODon 07-40-4083Hmixskefr [Mass/Vol]3.5 mg/dL Normal2.5-5.0The [facility] CenterComment on above:Order Comment: No: Do not add to previous draw Criteria for reflexing a culture was not met. Please call the lab at [phone] within 24 hours of collection time if culture is neededPerformed By: #### [id number] #### [address] [place] [address], USAPORTABLE CHEST 1 VIEWon [id number] CHEST 1 VIEW [facility] Department [facility] [address] [place] [address] Patient Name: IGNACIO AMIN : 1945 Sex: M Age: Race: White Pt. Location: [address] [place] [address] Patient Status: I Ordered Date: 02/16/2022 7:00:00 AM Completed Date: 02/16/2022 07:39 AM Requesting Provider: CATIA GTZ Attending Provider: ADITYA RODRIGUEZ Report Copy To: Signs & Symptoms: Pre-Op Evaluation History: Comments: Atelectasis Exam: PORTABLE CHEST 1 VIEW PORTABLE CHEST 1 VIEW 02/16/2022 7:39 AM [...] chest. Electronically signed: Fidelina Mi. Transcribed by: [email or web address], User Resident: Electronically Signed by: FIDELINA MI @ 02/16/2022 09:14 AMNormalThe [facility] CenterComment on above:Order Comment: Check Chest Tube Position, ON ARRIVAL TO CVUPROTHROMBIN TIMEon 75-14-1503FLZ Coag (PPP) [Relative time]1.09 {INR}Normal0.91-1.16The [facility] CenterComment on above:Order Comment: Check Chest Tube Position, ON ARRIVAL TO CVAcoma-[facility]onc[facility]una Hospitalult Comment: ACCCP RECOMMENDED INR FOR WARFARIN THERAPY ------- CONDITION INR PROPHYLAXIS OF VENOUS THROMBOSIS 2-3 (HIGH-RISK SURGERY) TREATMENT OF VENOUS THROMBOSIS 2-3 TREATMENT OF PULMONARY EMBOLISM 2-3 PREVENTION OF SYSTEMIC EMBOLISM: 2-3 ACUTE MYOCARDIAL INFARCTION TISSUE HEART VALVES VALVULAR HEART DISEASE ATRIAL FIBRILLATION RECURRENT SYSTEMIC EMBOLISM MECHANICAL HEART VALVE 2.5-3.5 FROM: ORAL ANTICOAGULANTS. MECHANISM OF ACTION, CLINICAL EFFECTIVENESS, AND OPTIMAL THERAPEUTIC RANGE. CHEST 1995;108:231S-246S.Performed By: #### [id number], [id number] ####[facility] [place] [address], USAPT Coag (PPP) [Time]14.1 s Kwcjsv79.3-14.8The [facility] CenterComment on above:Order Comment: Check Chest Tube Position, ON ARRIVAL TO CVUResult Comment: ALL RESULTS MUST BE INTERPRETED WITH RESPECT TO BLOOD DRAWING ARTIFACT OR DILUTION ERROR OF ANTICOAGULANT AT THE TIME OF SAMPLING.Performed By: #### 15150, [id number] ####[facility] [place] [address], METZCF6mp 68-78-2567MVR 3RD GENERATION1.10 uIU/mLNormal0.34-5.60The [facility] CenterComment on above:Order Comment: No: Do not add to previous drawPerformed By: #### [id number] #### [facility] [address] [facility] [place] [address], [facility]*MRSA/MSSA DNA NASALon 02-15-2022*MRSA/MSSA DNA NASAL Clinical Report: (D) Specimen: NASAL SWAB Collected: 02/15/2022 17:50 Status: Final Last Updated: 02/16/2022 12:41 (1) No collection time noted on specimen or requisition. The collection time recorded is the time of receipt in the lab. MSSA DNA (Final) Negative MRSA DNA (Final) NegativeNormalThe [facility] CenterComment on above:Order Comment: No collection time noted on specimen or requisition. The collection time recorded is the time of receipt in the lab.Performed By: #### [id number] #### [facility] [address] [facility] [place] [address], [facility]OSPITALSURINALYSIS REFLEXon 13-05-4794Zneoduozzt (U)CLEARNormal CLEARThe [facility] CenterComment on above:Order Comment: No: Do not add to previous drawCriteria for reflexing a culture was not met. Please call the lab [phone] within 24 hours of collection time if culture is needed Performed By: #### [id number] #### [facility] [address] [facility] [place] [address], USABilirubin Ql (U)NegativeNormalNEGATIVEThe [facility] CenterComment on above:Order Comment: No: Do not add to previous drawCriteria for reflexing a culture was not met. Please call the lab [phone] within 24 hours of collection time if culture is neededPerformed By: #### [id number] #### [facility] [address] [place] [address], USAColor (U)YELLOWNormalYELLOWThe [facility] CenterComment on above:Order Comment: No: Do not add to previous drawCriteria for reflexing a culture was not met. Please call the lab [phone] within 24 hours of collection time if culture is neededPerformed By: #### [id number] #### [facility] [address] [place] [address], USAEPISNONE SEENNormalFEW,OCC,NONE SEENThe [facility] CenterComment on above:Order Comment: No: Do not add to previous drawCriteria for reflexing a culture was not met. Please call the lab [phone] within 24 hours of collection time if culture is neededPerformed By: #### [id number] #### [facility] [address] [place] [address], USAGlucose Ql (U)NegativeNormalNEGATIVEThe [facility] CenterComment on above:Order Comment: No: Do not add to previous drawCriteria for reflexing a culture was not met. Please call the lab [phone] within 24 hours of collection time if culture is neededPerformed By: #### [id number] #### [facility] [address] [place] [address], USAHemoglobin Ql (U)TRACEAbnormalNEGATIVEThe [facility] CenterComment on above:Order Comment: No: Do not add to previous drawCriteria for reflexing a culture was not met. Please call the lab [phone] within 24 hours of collection time if culture is neededPerformed By: #### [id number] #### [facility] [address] [place] [address], USAKETONENegativeNormalNEGATIVEThe [facility] CenterComment on above:Order Comment: No: Do not add to previous drawCriteria for reflexing a culture was not met. Please call the lab [phone] within 24 hours of collection time if culture is neededPerformed By: #### [id number] #### [facility] [address] [place] [address], USALEUK ESTERNegativeNormalNEGATIVEThe [facility] CenterComment on above:Order Comment: No: Do not add to previous drawCriteria for reflexing a culture was not met. Please call the lab [phone] within 24 hours of collection time if culture is neededPerformed By: #### [id number] #### [facility] [address] [place] [address], USANitrite Ql (U)NegativeNormalNEGATIVEThe [facility] CenterComment on above:Order Comment: No: Do not add to previous drawCriteria for reflexing a culture was not met. Please call the lab [phone] within 24 hours of collection time if culture is neededPerformed By: #### [id number] #### [facility] [address] [facility] [place] [address], USApH (U)6.0 [pH]Normal5.0-8.0The [facility] CenterComment on above:Order Comment: No: Do not add to previous drawCriteria for reflexing a culture was not met. Please call the lab [phone] within 24 hours of collection time if culture is neededPerformed By: #### [id number] #### [facility] [address] [facility] [place] [address], USAProtein Ql (U)NegativeNormalNEGATIVEThe [facility] CenterComment on above:Order Comment: No: Do not add to previous drawCriteria for reflexing a culture was not met. Please call the lab [phone] within 24 hours of collection time if culture is neededPerformed By: #### [id number] #### [facility] [address] [facility] [place] [address], USARBC0-2AbnormalNONE SEENThe [facility] CenterComment on above:Order Comment: No: Do not add to previous drawCriteria for reflexing a culture was not met. Please call the lab [phone] within 24 hours of collection time if culture is neededPerformed By: #### [id number] #### [facility] [address] [facility] [place] [address], USASPEC GRAV1.094Puq6.015-1.020The [facility] CenterComment on above:Order Comment: No: Do not add to previous drawCriteria for reflexing a culture was not met. Please call the lab [phone] within 24 hours of collection time if culture is neededPerformed By: #### [id number] #### [facility] [address] [facility] [place] [address], USAWBC UA0-2AbnormalNONE SEENThe [facility] CenterComment on above:Order Comment: No: Do not add to previous drawCriteria for reflexing a culture was not met. Please call the lab [phone] within 24 hours of collection time if culture is neededPerformed By: #### [id number] #### [facility] [address] [facility] [place] [address], USACovid-19 PCR (CVDTBH)on 69-13-3352YFIE-CoV-2 (COVID-19) RNA JJ+probe Ql (Unsp spec)Not detectedNormalNOT DETECTEDThe [facility] Comment on above:Result Comment: This test is not yet approved or cleared by the [place] FDA. When there are no FDA-approved or cleared tests available, and other criteria are met, FDA can make tests available under an emergency access mechanism called an Emergency Use Authorization (EUA). The EUA for this test is supported by the [place] of Health and Human Service's (HHS's) declaration that circumstances exist to justify the emergency use of in vitro diagnostics for the detection and/or diagnosis of the virus that causes COVID- 19. This EUA will remain in effect (meaning [...] of clinical signs and symptoms consistent with SARS-CoV-2.Performed By: #### HH #### [facility] [address] [place] [address] Dr. Yoselin RiveraHEMOGRAM AND Frederic 16-45-4376Mqpwkjmwbr (Bld) [Volume fraction]42.9 %Jnnawe22.0-54.0The [facility] ColumbusComment on above:Performed By: #### HH #### [facility] [address] [place] [address] Dr. Yoselin RiveraHemoglobin (Bld) [Mass/Vol]14.0 g/qMBjtjnn37.0-18.0The [facility] ColumbusComment on above:Performed By: #### HH #### [facility] [address] [place] [address] Dr. Yoselin BainsH (RBC) [Entitic mass]30.7 uvPzoiyv02.9-34.0The [facility] ColumbusComment on above:Performed By: #### HH #### [facility] [address] [place] [address] Dr. Yoselin BainsHC (RBC) [Mass/Vol]32.6 g/tWHfsgey70.9-35.2The [facility] ColumbusComment on above:Performed By: #### HH #### [facility] [address] [place] [address] Dr. Yoselin BainsV (RBC) [Entitic vol]94.1 fLCritically high80.0-94.0The [facility] ColumbusComment on above:Performed By: #### HH #### [facility] [address] [place] [address] Dr. Yoselin RiveraPLT153 103/stMprwqv921-509Wib [facility] ColumbusComment on above: Performed By: #### HH #### [facility] [address] [place] [address] Dr. Yoselin RiveraRBC4.56 106/ulCritically low4.70-6.10The [facility] ColumbusComment on above:Performed By: #### HH #### [facility] [address] [place] [address] Dr. Yoselin RiveraWBC5.9 103/ulNormal4.0-11.0The [facility] Of ColumbusComment on above: Performed By: #### HH #### [facility] [address] [address] [address] Yoselin RiveraPROF CHEM 8 (BAS METB)on 99-41-8355Rptbp gap [Moles/Vol]9.0 mmol/LNormalThe [facility] ColumbusComment on above:Performed By: #### HH #### [facility] [address] [place] [address] Dr. Yoselin RiveraCalcium [Mass/Vol]9.1 mg/dLNormal8.5-10.1The [facility] Comment on above:Performed By: #### HH #### [facility] [address] [place] [address] Dr. Yoselin RiveraChloride [Moles/Vol]104 mmol/GTgzrpq02-037Ods [facility] Comment on above:Performed By: #### HH #### [facility] [address] [place] [address] Dr. Yoselin RiveraCO2 [Moles/Vol]30.0 mmol/HOlsjrl40.0-32.0The [facility] Comment on above:Performed By: #### HH #### [facility] [address] [place] [address] Dr. Yoselin RiveraCreatinine [Mass/Vol]0.98 mg/dLNormal0.70-1.30The [facility] ColumbusComment on above:Performed By: #### HH #### [facility] [address] [place] [address] Dr. Wyatt ChangEGFR-AF NIGERIEN>60Normal>=60The [facility] Of ColumbusComment on above:Performed By: #### HH #### [facility] [address] [place] [address] Dr. Yoselin CarranzaGFR-NON AF NIGERIEN>60Normal>=60The [facility] ColumbusComment on above:Performed By: #### HH #### [facility] [address] [place] [address] Dr. Yoselin RiveraGlucose [Mass/Vol]122 mg/dLCritically yqam34-439TvmKettering Memorial HospitalComment on above:Performed By: #### HH #### [facility] [address] [address] [address] Yoselin RiveraPotassium [Moles/Vol]4.0 mmol/LNormal3.5-5.1[facility] Comment on above:Performed By: #### HH #### [facility] [address] [address] [address] Yoselin RiveraSodium [Moles/Vol]139 mmol/QVgwasx661-879GspKettering Memorial Hospital Comment on above:Performed By: #### HH #### [facility] [address] [address] [address] Yoselin RiveraUrea nitrogen [Mass/Vol]19.0 mg/dLCritically high7.0-18.0The [facility] ColumbusComment on above:Performed By: #### HH #### [facility] [address] [address] [address] Yoselin Miller nitrogen/Creatinine [Mass ratio]19.4 mg/mgNormalThMercy Health Allen HospitalComment on above:Performed By: #### HH #### [facility] [address] [place] [address] Dr. Yoselin RiveraNM STRESS/REST MULTIon 75-56-4246IM STRESS/REST MULTIPatient: IGNACIO AMIN Exam Date: 02/07/2022 : 1945 Gender:M Ordering : DR DONAVAN SAEED M.D. Admission #: [id number] Family : DR ELLIOT ROSALES M.D. Order #: [id number] CLICK HERE TO VIEW EXAM RADIOLOGY REPORT [...] by: Magalis Lanza M.D. on 02/08/2022 at 09:32[facility]zer HospitalURINALYSISOrdered By: Annie Lopes on 27-34-7640Vwrpbtbf LM Ql (Urine sed)Trace /HPFNormalTrace/HPFATOKA COUNTY MED[facility] UA Auto SSBilirubin Ql (U)Negative (09/19/21 12:29 PM)NormalNegativeATOKA COUNTY MEDICAL CENTER – [place] UA Auto SSClarity (U)SL CLOUDYInvalid Interpretation CodeATOKA COUNTY MEDICAL CENTER – [place] UA Auto SSColor (U)Yellow (09/19/21 12:29 PM)NormalYellowATOKA COUNTY MEDICAL CENTER – [place] UA Auto SSEpithelial cells.squamous LM.HPF (Urine sed) [#/Area]0-2 /HPFNormal0-2/HPFATOKA COUNTY MEDICAL CENTER – [place] UA Auto SSGlucose Test strip (U) [Mass/Vol]Negative (09/19/21 12:29 PM)NormalNegativeATOKA COUNTY MEDICAL CENTER – [place] UA Auto SSHemoglobin Ql (U)Trace *ABN* (09/19/21 12:29 PM)Invalid Interpretation CodeNegativeATOKA COUNTY MEDICAL CENTER – [place] UA Auto SSKetones (U) [Mass/Vol]Trace *NA* (09/19/21 12:29 PM)Invalid Interpretation CodeNegativeATOKA COUNTY MEDICAL CENTER – [place] UA Auto SS [place].plasma/[place].RBC (Bld) [Mass ratio]0-3 /HPFNormal0-3/HPFATOKA COUNTY MEDICAL CENTER – [place] UA Auto SSMucus Ql (Urine sed)Trace (09/19/21 12:29 PM)NormalATOKA COUNTY MEDICAL CENTER – [place] UA Auto SSNitrite Ql (U)Negative (09/19/21 12:29 PM)NormalNegativeATOKA COUNTY MEDICAL CENTER – [place] UA Auto SSpH (U)5.5 *NA* (09/19/21 12:29 PM)Invalid Interpretation Code5.0 - 9.0[facility] [place] UA Auto SSProtein (U) [Mass/Vol]Negative (09/19/21 12:29 PM)NormalNegativeATOKA COUNTY MEDICAL CENTER – [place] UA Auto SSSpecific gravity (U) [Rel density]>=1.030 *NA* (09/19/21 12:29 PM)Invalid Interpretation Code1.005 - 1.030[facility] [place] [facility]A Auto SSUA Spec DescRandom Urine (09/19/21 12:29 PM)NormalATOKA COUNTY MEDICAL CENTER – [place] UA Auto SSUrobilinogen Qn (U)0.7404391 {Kayce'U}/dLNormal0.0 - 1.0 EU/dLATOKA COUNTY MEDICAL CENTER – [place] UA Auto SSWBC Auto Ql (U)2+ *ABN* (09/19/21 12:29 PM)Invalid Interpretation CodeNegativeATOKA COUNTY MEDICAL CENTER – [place] UA Auto SSWBC LM.HPF (Urine sed) [#/Area]/[HPF]Invalid Interpretation Code0-5/HPFATOKA COUNTY MEDICAL CENTER – [place]OK[place] UA Auto SS Vital Signs Date TimeVital SignValuePerforming WwdnviomsScevxypv62-43-6422 09:53-0400Body atptdd255.8 cmElliot Rosales MD Work Phone: [facility]07-22-2025 09:53-0400 Body mass index (BMI) [Ratio]28.5 kg/j5GlwxumElliot Rosales MD Work Phone: [facility]07-22-2025 09:53-0400 Body .26 Emory Rosales MD Work Phone: [phone]07-22-2025 09:53-0400 Diastolic blood mm[Hg]Elliot Rosales MD Work Phone: [phone]07-22-2025 09:53-0400 Heart rate77 /Jennifer Rosales MD Work Phone: [phone] [place], [place] 1935007-22-2025 09:53-0400 Respiratory rate16 /Jennifer Rosales MD Work Phone: [phone] [place], [place] 1935007-22-2025 09:53-0400 SaO2% (BldA) [Mass fraction]98 %Elliot Rosales MD Work Phone: [phone] [place], [place] 1935007-22-2025 09:53-0400 Systolic blood kkinbrvg929 mm[Hg]Elliot Rosales MD Work Phone: [phone] [place], [place] 1935007-08-2025 08:56-0400 Body ouqirg796.8 cmElliot Rosales MD Work Phone: [phone] [place], [place] 1935007-08-2025 08:56-0400 Body mass index (BMI) [Ratio]28.5 kg/z8AseessElliot Rosales MD Work Phone: [phone] [place], [place] 1935007-08-2025 08:56-0400 Body iztqsl98.26 Eomry Rosales MD Work Phone: [phone] [place], [place] 1935007-08-2025 08:56-0400 Diastolic blood yizoedyk74 mm[Hg]Elliot Rosales MD Work Phone: [phone] [place], [place] 1935007-08-2025 08:56-0400 Heart rate77 /Jennifer Rosales MD Work Phone: [phone] [place], [place] 1935007-08-2025 08:56-0400 Respiratory rate12 /Jennifer Rosales MD Work Phone: [phone]07-08-2025 08:56-0400 SaO2% (BldA) [Mass fraction]97 %Elliot Rosales MD Work Phone: [facility]07-08-2025 08:56-0400 Systolic blood mm[Hg]Elliot Rosales MD Work Phone: [facility]03-12-2025 08:54-0400 Body .8 cmBarnesville Hospital03-12-2025 08:54-0400Body mass index (BMI) [Ratio]29 kg/d6KmwuwxevjBarnesville Hospital03-12-2025 08:54-0400Body nixfdw08.62 kgBarnesville Hospital03-12-2025 08:54-0400Diastolic blood mxxpuhmo76 mm[Hg][facility] 09-01-2024 08:54-0400Heart rate74 /[facility] 09-01-2024 08:54-0400Systolic blood hqthsyrd397 mm[Hg][facility]01-07-2025 10:26-0500Body ogkbmi157.8 cmBarnesville Hospital 06-29-2024 10:26-0500Body mass index (BMI) [Ratio]29.1 kg/s5UkmhzvmuiBarnesville Hospital01-07-2025 10:26-0500Body xdnnquurlzl56.7 [degF][facility]01-07-2025 10:26-0500Body .19 kgBarnesville Hospital01-07-2025 10:26-0500Diastolic blood mm[Hg][facility]01-07-2025 10:26-0500Heart rate70 /[facility]01-07-2025 10:26-0500Respiratory rate16 /[facility]01-07-2025 10:26-3501BbM6% (BldA) [Mass fraction]98 %[facility]01-07-2025 10:26-0500Systolic blood mm[Hg] [facility]04-23-2024 09:10-0400Diastolic blood npvnlejt73 mm[Hg]MD Elliot Rosales Work Phone: [facility]04-23-2024 09:10-0400 Heart rate63 /minMD Elliot Rosales Work Phone: [facility]04-23-2024 09:10-0400 Respiratory rate18 /minMD Elliot Rosales Work Phone: [facility]04-23-2024 09:10-0400 SaO2% (BldA) [Mass fraction]100 %MD Elliot Rosales Work Phone: [facility]04-23-2024 09:10-0400 Systolic blood unievopm440 mm[Hg]MD Elliot Rosales Work Phone: [facility]04-23-2024 07:19-0400 Body kycwxm672.8 cm Elliot Rosales Work Phone: [phone]04-23-2024 07:19-0400 Body ijtgco11.26 kgMD Elliot Rosales Work Phone: [facility]01-31-2024 09:45-0500 Blood Pressure LocationKathy Lue [facility]01-31-2024 09:45-0500Diastolic blood hxmapxia61 mm[Hg]Patience Lue [facility]01-31-2024 09:45-0500Heart rate68 /minKathy Lue [facility]01-31-2024 09:45-0500Respiratory rate16 /minKathy Lue [facility]01-31-2024 09:45-0500Systolic blood trafuwge522 mm[Hg]Patience Lue [facility]01-23-2024 09:40-0500Body vjiwkz453.53 cmAziz Rahs Other [employer] Other 01-23-2024 09:40-0500Body mass index (BMI) [Ratio] 29.34 kg/m2Azvern Bakcarltons Other [employer] Other 01-23-2024 09:40-0500Body kfenjivxkzr16.2 [degF]Azvern Monreals Other [facility] Other 01-23-2024 09:40-0500Body itrycl00.45 kgAziz Bakcarltons Other [facility] Other 01-23-2024 09:40-0500Diastolic blood orekgaef11 mm[Hg] Aziz Bakcarltons Other [facility] Other 01-23-2024 09:40-0500Respiratory rate18 /minAzvern Monreals Other [facility] Other 01-23-2024 09:40-2946EcL5% (BldA) [Mass fraction]97 % Azvern Bakcarltons Other [facility] Other 01-23-2024 09:40-0500Systolic blood dmfqkobu674 mm[Hg] Aziz Bakhous Other [facility] Other 11-27-2023 10:00-0500Body jhetaf158.53 cmElliot Rosales Other [employer] Other 11-27-2023 10:00-0500Body mass index (BMI) [Ratio] 28.79 kg/k8Wfsqtd Fran Other [facility] Other 11-27-2023 10:00-0500Body lwgooh91.73 kgElliot Fran Other [facility] Other 11-27-2023 10:00-0500Diastolic blood awudfqfa80 mm[Hg] Elliot Fran Other [facility] Other 11-27-2023 10:00-0500Systolic blood dehsxfll777 mm[Hg] Elliotdiane Rosales Other [facility] Other 10-25-2023 09:42-0400Blood Pressure LocationKathy Lue [facility]10-25-2023 09:42-0400Diastolic blood ssuhnksr71 mm[Hg]Patience Lue [facility]10-25-2023 09:42-0400Heart rate68 /minKathy Lue [facility]10-25-2023 09:42-0400Respiratory rate16 /minKathy Lue [facility]10-25-2023 09:42-0400Systolic blood fkkmgral372 mm[Hg]Patience Lue [facility]08-08-2023 10:40-0400Body gqndik242.53 Brit Jensen Other [facility] Other 08-08-2023 10:40-0400Body mass index (BMI) [Ratio] 28.61 kg/m2Jenifer Jensen Other [facility] Other 08-08-2023 10:40-0400Body eiwdsehivoi08.2 [degF]Jenifer Jensen Other [place] [facility] Other 08-08-2023 10:40-0400Body hmsazc28.18 kgJenifer Jensen Other [place] [facility] Other 08-08-2023 10:40-0400Diastolic blood qxrareiq99 mm[Hg] Jenifer Jensen Other [place] [facility] Other 08-08-2023 10:40-0400Respiratory rate18 /minJenifer Jensen Other [place] [facility] Other 08-08-2023 10:40-8473RmS7% (BldA) [Mass fraction]100 % Jenifer Jensen Other [place] [facility] Other 08-08-2023 10:40-0400Systolic blood ppaixhwo592 mm[Hg] Jenifer Jensen Other [place] [facility] Other 06-23-2023 11:44-0400Diastolic blood rlcpoggo74 mm[Hg] MD Elliot Rosales Work Phone: [facility]06-23-2023 11:44-0400 Heart rate59 /minMD Elliot Rosales Work Phone: [facility]06-23-2023 11:44-0400 Respiratory rate16 /minMD Elliot Rosales Work Phone: [facility]06-23-2023 11:44-0400 SaO2% (BldA) [Mass fraction]97 %MD Elliot Rosales Work Phone: [facility]06-23-2023 11:44-0400 Systolic blood tiuotqjw254 mm[Hg]MD Elliot Rosales Work Phone: [facility]06-23-2023 09:38-0400 Body wvlolr230.8 cmMD Elliot Rosales Work Phone: [facility]06-23-2023 09:38-0400 Body tarttl94.99 kgMD Elliot Rosales Work Phone: [facility]06-14-2023 09:11-0400 Blood Pressure LocationKathy Lue [facility]06-14-2023 09:11-0400Diastolic blood znmbantu53 mm[Hg]Patience Lue [facility]06-14-2023 09:11-0400Heart rate68 /minKathy Lue [facility]06-14-2023 09:11-0400Respiratory rate16 /minKathy Lue [facility]06-14-2023 09:11-0400Systolic blood okdvfjtw890 mm[Hg]Patience Lue [facility]04-04-2023 13:03-0400Body uhexacsyyww58.11 [degF]ELSI Doyle MD Work Phone: [facility]04-04-2023 13:03-0400Body uyqomo84 kg ELSI Doyle MD Work Phone: [facility]04-04-2023 13:03-0400Diastolic blood svyyxdht46 mm[Hg]ELSI Doyle MD Work Phone: [facility]04-04-2023 13:03-0400Heart rate60 /min ELSI Doyle MD Work Phone: [facility]04-04-2023 13:03-0400Respiratory rate 18 /BeatriceELSI Doyle MD Work Phone: [facility]04-04-2023 13:03-0380FyS5% (BldA) [Mass fraction]100 %ELSI Doyle MD Work Phone: [facility]04-04-2023 13:03-0400Systolic blood yxkpcnjg717 mm[Hg]ELSI Doyle MD Work Phone: [facility]04-03-2023 10:45-0400Body pwelth348.53 cmElliot Rosales Other [facility] Other 04-03-2023 10:45-0400Body mass index (BMI) [Ratio] 28.67 kg/a6TiuslmElliot Rosales Other [facility] Other 04-03-2023 10:45-0400Body jacoaq80.36 kgElliot Rosales Other [facility] Other 04-03-2023 10:45-0400Diastolic blood mm[Hg] Elliot Rosales Other [facility] Other 04-03-2023 10:45-0400Systolic blood dyzharmt493 mm[Hg] Elliot Rosales Other [facility] Other 02-27-2023 10:30-0500Body pyhddg553.53 cmElliot Rosales Other [facility] Other 02-27-2023 10:30-0500Body mass index (BMI) [Ratio] 27.94 kg/r4UkfqogElliot Rosales Other [facility] Other 02-27-2023 10:30-0500Body lnwuyi82.09 kgElliot Fran Other [facility] Other 02-27-2023 10:30-0500Diastolic blood fjkltpoz65 mm[Hg] Elliot Fran Other [employer] Other 02-27-2023 10:30-9339HpO8% (BldA) [Mass fraction]98 % Elliot Fran Other [facility] Other 02-27-2023 10:30-0500Systolic blood ppaqmavp798 mm[Hg] Elliot Rosales Other [facility] Other 02-21-2023 10:40-0500Body qqphic804.8 cmAzistacia Camila Other [facility] Other 02-21-2023 10:40-0500Body mass index (BMI) [Ratio] 27.55 kg/m2Jenifer Rahfrank Other [facility] Other 02-21-2023 10:40-0500Body .09 kgJenifer Kerncarltonfrank Other [facility] Other 02-21-2023 10:40-0500Diastolic blood qeowizxb56 mm[Hg] Jenifer Jensen Other [facility] Other 02-21-2023 10:40-0500Respiratory rate18 /minJenifer Kerncarltonfrank Other [facility] Other 02-21-2023 10:40-5025VwB3% (BldA) [Mass fraction]97 % Jenifer Jensen Other [employer] [facility] Other 488030-60-2635 10:40-0500Systolic blood moannune301 mm[Hg] Jenifer Jensen Other [facility] Other 100307-91-5425 09:28-0500Blood Pressure LocationKathy Lue [facility]12-14-2022 09:28-0500Diastolic blood ukrxssxh25 mm[Hg]Patience Lue [facility]12-14-2022 09:28-0500Heart rate65 /minKathy Lue [facility]12-14-2022 09:28-0500Systolic blood mm[Hg]Patience Lue [facility]11-08-2022 11:00-0500Body xvdxiw894.8 Brit Jensen Other [facility] Other 11-08-2022 11:00-0500Body mass index (BMI) [Ratio] 25.77 kg/m2Jenifer Jensen Other [employer] [facility] Other 11-08-2022 11:00-0500Body lruquzitkkp63.2 [degF]Jenifer Jensen Other [facility] Other 11-08-2022 11:00-0500Body wcchwo94.47 kgJenifer Jensen Other [place] [facility] Other 11-08-2022 11:00-0500Diastolic blood jfyrggpm87 mm[Hg] Jenifer Jensen Other [place] [facility] Other 11-08-2022 11:00-0500Respiratory rate18 /minJenifer Jensen Other [place] [facility] Other 11-08-2022 11:00-6850WjI2% (BldA) [Mass fraction]99 % Jenifer Jensen Other [place] [facility] Other 11-08-2022 11:00-0500Systolic blood ewkkzpxb263 mm[Hg] Jenifer Jensen Other [place] [facility] Other 06-13-2022 13:10-0400Diastolic blood azlzmuua23 mm[Hg] Patience Lue [facility] 06-13-2022 13:10-0400Heart rate62 /minKathy Lue [facility] 06-13-2022 13:10-0400Systolic blood mm[Hg] Patience Lue [facility] 04-05-2022 13:07-0400Body vtelyqnnwrz37.4 [degF]ELSI Doyle MD Work Phone: [facility]04-05-2022 13:07-0400Body .54 kgELSI Doyle MD Work Phone: [facility]04-05-2022 13:07-0400Diastolic blood ponbeewl59 mm[Hg]ELSI Doyle MD Work Phone: [facility]04-05-2022 13:07-0400Heart rate62 /min ELSI Doyle MD Work Phone: [facility]04-05-2022 13:07-0400Respiratory rate 16 /BeatriceELSI Doyle MD Work Phone: [facility]04-05-2022 13:07-4236UmS9% (BldA) [Mass fraction]98 %ELSI Doyle MD Work Phone: [facility]04-05-2022 13:07-0400Systolic blood tsxcazcq283 mm[Hg]NA Gill DUNN Work Phone: [facility]03-30-2022 09:38-0400Blood Pressure LocationKathy Lue [facility] 03-30-2022 09:38-0400Diastolic blood pljkqsne81 mm[Hg] Patience Lue [facility] 03-30-2022 09:38-0400Heart rate68 /minKathy Lue [facility] 03-30-2022 09:38-0400Respiratory rate16 /minKathy Lue [facility] 03-30-2022 09:38-0400Systolic blood kdhvotjd189 mm[Hg] Patience Lue [facility] Encounters Encounter DateEncounter TypeCare ProviderFacilityStart: 92-59-7145qbifjaagqv AGUSTIN [facility]: 03-30-2025 End: 17-48-9447uzscghguugWBLDWood County Hospitaltart: 03-15-2025 End: 61-97-8885hahpkhluxaAGLNWood County Hospitaltart: 00-58-2686egbicrccjfNFFZF GROhioHealth Dublin Methodist Hospitaltart: 01-11-2025 End: 77-52-6812zobgbstmbqCzddoo E Braun MD Work Phone: [facility] Work Phone: Start: 01-11-2025 End: 13-97-9112Rioddge encounter procedureJenifer Jensen MD-[facility] Nephrology Raúl Work Phone: Start: 87-50-7377Pzx-patient / Non-visitJenifer Jensen MD-[facility] Work Phone: Start: 12-28-2024 End: 46-70-0159uecxvgwrlzYtwjgb E Braun MD Work Phone: [facility] Work Phone: Start: 12-28-2024 End: 27-77-6476Ugujzpw encounter Fern Rosales MD-[facility] Work Phone: Start: 11-02-2024 End: 67-08-1389sizvhvfqpvOOYD [facility]: 10-26-2024 End: 85-11-2863hjvbvlotmuCCFY ELMemorial Health System [facility] Hospitaltart: 09-01-2024 End: 46-64-9502vseemrdwckDwovutxhhSelect [facility] Work Phone: Start: 09-01-2024 End: 65-36-6919Jqiubaw encounter procedureFelipe Physician [facility] Work Phone: Start: 29-28-8277Rkf-patient / Non-visitSent[facility] Work Phone: Start: 59-62-6354czumwipcjjTUPNWood County Hospitaltart: 06-29-2024 End: 86-94-7946Rmxgfzy encounter procedureSentara [facility] Work Phone: Start: 02-35-3051Lvq-patient / Non-visitSentara [facility]em[facility] Work Phone: Start: 06-01-2024 End: 39-58-7571gnoecvkjzuPGEHWood County Hospitaltart: 72-53-1236pqvxbugsrlULKKWood County Hospitaltart: 71-27-3751yygjuynhdaJUREFayette County Memorial Hospitaltart: 17-04-0367Qvgraoqma for preprocedural cardiovascular examinationHolzer Medical Center – Jacksontart: 05-04-2024 End: 32-10-7753dlvjdkihhyPNOAWood County Hospitaltart: 10-14-2023 End: 06-32-1806vrpagzmglgTaoazc E BraunFacility:[facility], Inctart: 11-64-3128Kvw-patient / Non-visitMD Elliot Rosales Work Phone: [facility] Physician [facility] Gastroenterology Work Phone: Start: 10-14-2023 End: 45-76-5069Zfxdujxxn to same day surgery centerMD Elliot Rosales Work Phone: [facility] Work Phone: Start: 10-14-2023 End: 82-87-1948motptderjvOH Marcia E Braun Work Phone: [facility] Work Phone: Start: 31-80-8161Fma-patient / Non-visitMD Elliot Rosales Work Phone: [facility]-[place] [employer] Work Phone: Start: 07-23-2023 End: 31-86-5471zzqdeygpstFgvge M. LueFacility:EU BellevueStart: 07-23-2023 End: 73-44-7467Vuggbol encounter procedurePatience Huitron [facility] start: 07-15-2023 End: 50-63-7398pyedqojpowQpbh [employer] Other [facility] Other Start: 79-12-9694Tzqugu outpatient visit 15 minutes Jenifer JensenVER[facility] Nephrology ClydeStart: 05-19-2023 End: 21-05-4974blekngusenTkfiyv Braun Other [facility] [employer] Other Start: 21-70-2438Mtkpgb outpatient visit 10 minutes Elliot RosalesEma [facility] Austintart: 04-16-2023 End: 09-84-0031fbvdzuesnqCahav M. LueFacility:[facility] [place]vueStart: 04-16-2023 End: 42-58-8650Yrjmagc encounter procedurePatience Huitron [facility] start: 03-03-2023 End: 04-60-3761ylosvzxhunPyrzq M. LueFacility:FTMCStart: 03-03-2023 End: 23-34-4827Ddsrggg encounter procedureKattalha Paluino. Porschee [facility] Start: 01-28-2023 End: 13-84-5262qeobyuliirCeqz [employer] Other [facility]En[facility] [employer] Other Start: 04-66-9445Fdgqgl outpatient visit 15 minutes Jenifer HaysG Nephrology ClydeStart: 12-13-2022 End: 19-78-2392eknkgeyxurQqoluh E BraunFacility:[facility], Inctart: 12-13-2022 End: 22-35-8006Ttfosohln to same day surgery centerMD Elliot Rosales Work Phone: [facility] Work Phone: Start: 12-13-2022 End: 37-10-9686nugdnwckeiTT Marcia E Braun Work Phone: [facility] Work Phone: Start: 12-04-2022 End: 65-95-6169kcwiscsrgbWtkzy M. LueFacility:DEMETRIUS Diley Ridge Medical CenterueStart: 12-04-2022 End: 76-33-7953Siyjzdd encounter Domenica Huitron [facility] start: 09-24-2022 End: 70-71-4618zbibrtxowbELeonora PALOMINOacility:[facility] Start: 09-24-2022 End: 95-59-5152Nxuymqg encounter procedureG Abhijeet Doyle MD Work Phone: Radiation OncologyComment on above:History of prostate cancer (Primary Dx)Start: 09-23-2022 End: 12-85-2551egviqossbkRuskfe Braun Other [place] [facility] Other Start: 56-94-9377Lbalct outpatient visit 15 minutes Elliot Garcia [facility] ClinicStart: 73-35-9759Muqobvfwv encounterElliot Augustin [facility] ClinicStart: 09-18-2022 End: 29-05-4370skjvhvuzehPT MARCIA E BRAUNFacility:N0Gxfjd: 08-26-2022 End: 23-21-2480nufaowhodxHoobhg Braun Other [facility] Other Start: 71-05-7423Tyxayxglh encounterElliot Garcia [facility] ClinicStart: 08-19-2022 End: 28-09-6723ypjfmirletEerqtg Fran Other [facility] Other Start: 67-05-0273Llrgms outpatient visit 15 minutes Elliot Radha [facility] ClinicStart: 08-13-2022 End: 14-56-9012erircvybqjXsjh Bakhous Other [facility] Other Start: 22-15-3915Orgrwq outpatient visit 15 minutes Azvern JensenG Nephrology ClydeStart: 08-05-2022 End: 77-03-7051omnwtunjitBV ELLIOT E BRAUNFacility:T8Cgbel: 06-25-2022 End: 85-15-0677jkuwobosncYF ELLIOT Sarita ROSALESFacility:L5Qjjmx: 06-18-2022 End: 49-74-0201wixzuzvasrCT ELLIOT Sarita BRAUNFacility:Z8Nnclj: 06-05-2022 End: 15-01-4289Owzxfiu encounter Domenica Huitron [facility] start: 06-03-2022 End: 68-97-6867cdlmoslxspTU ELLIOT Sarita BRAUNFacility:L8Pgyav: 05-22-2022 End: 47-96-2905naemekqunwJZ ELLIOT E BRAUNFacility:I0Bhlgm: 04-30-2022 End: 10-63-1453ynzekadbdzRnbk Bakhous Other [facility] Other Start: 05-23-7580Lpcfdj outpatient new 30 minutesAziz BakcarltonsFPG NephrologyStart: 04-26-2022 End: 09-37-7466vxgcccgvqxNEFWYYM BOESFacility:Q8Nftbw: 04-03-2022 End: 50-44-9895ktjimfbfgpPR ELLIOT ROSALESFacility:N9Rbhkl: 02-15-2022 End: 11-00-7096Lksckfulyp and management of Oneida Olson Facility:[facility]ILITYtart: 25-35-8455Birqsyncd for preprocedural laboratory examination [facility] Hospitalsarita [facility]ople HospitalStart: 02-13-2022 End: 74-71-0407qfmmpjryeqGD ELLIOT ROSALESFacility:K8Phvly: 02-13-2022 End: 05-68-4819Niuxzcvyh for preprocedural laboratory examinationDR ELLIOT ROSALESFacility:Y4Lswzn: 02-07-2022 End: 56-72-5411nvvaahjspnPB MARCIA E BRAUNFacility:J3Zczeb: 12-03-2021 End: 34-16-5388Dttkvbi encounter procedurePatience Huitron [facility] Start: 10-01-2021 End: 00-21-6430Qekdjzb encounter procedurePatience Huitron [facility] Start: 09-25-2021 End: 89-39-1184Kfjfjsd encounter procedureG Abhijeet Doyle MD Work Phone: Radiation OncologyComment on above:History of prostate cancer (Primary Dx)Start: 09-19-2021 End: 32-96-4786Jcr Drop offPatience Huitron [facility] Start: 09-19-2021 End: 28-63-2789Kcgtfvj encounter procedurePatience Huitron [facility] Procedures DateProcedureProcedure DetailPerforming ClinicianStart: 97-85-2817Fguckdiph colonoscopyMD Elliot Rosales Work Phone: Start: 34-79-0205Cqoisgidwfiio insertion of prostatic urethral lift implantKathy Lue Comment on above:5 implants attempted. 5 seated.Start: 75-78-8691Srxlppiov colonoscopyMD Elliot Rosales Work Phone: Start: 09-18-2022 End: 85-21-7617ZGF screeningCcf ProviderComment on above:Performed By: #### PSAD #### [facility] [address] [address] [address] Yoselin RiveraStart: 21-08-5832Jutrvcbd screenGary ParenteauComment on above: Performed By: #### [id number] #### [facility] [address] [place] [address], USAStart: 95-15-8527Dfrj heart surgeryKathy Lue Start: 15-14-6736Hdbghshtcjoyk cystoscopyKathy Lue Start: 16-54-6029Vwyzb depression screening assessment ELSI Doyle MD Work Phone: Start: 68-10-1274MLN screeningCcf ProviderStart: 06-38-3584VibywyaabkzytXxdiy Lue Cataract (morphologic abnormality)Patience Lue ColonoscopyKathy Lue Plan of Treatment DateCare ActivityDetailAuthorStart: 82-41-5681KpnyilistBarnesville Hospital Start: 09-25-2023 End: 92-44-8293Zzyptasn specific Ag [Mass/volume] in Serum or Plasma PSA/PROSTSPECAG DIAG Lab Routine History of prostate cancer Expected: 09/25/2023 (Approximate), Expires: 11/25/2023[facility] Work Phone: Comment on above:Expected: 09/25/2023 (Approximate), Expires: 11/25/2023Start: 22-17-6187Takcvgggp vaccinationINFLUENZA (Season Ended)[facility]tart: 88-10-0291OdimqzjijSelect Medical [facility]ty [facility], Inctart: 30-09-2829Qrgxk depression screening assessmentDEPRESSION SCREENINGCleveland Clinic [facility] Hospitaltart: 09-25-2022 End: 07-34-1890Nrrdgxgt specific Ag [Mass/volume] in Serum or Plasma PSA/PROSTSPECAG DIAG Lab Routine History of prostate cancer Expected: 09/25/2022 (Approximate), Expires: 11/25/2022[facility] Work Phone: Comment on above:Expected: 09/25/2022 (Approximate), Expires: 11/25/2022Start: 71-39-5736LWEEROU DIRECTIVE DISCUSSIONADVANCE DIRECTIVE DISCUSSIONCleveland Clinic Fairview Hospitaltart: 89-93-5775ULASRYSGVV ASSESSMENT DEPRESSION ASSESSMENTCleveland Clinic Fair[facility] Hospitaltart: 61-41-2356Bzrgmhdkn vaccination INFLUENZA (Season Ended)[facility] Hospitaltart: 14-42-1103XIZDCKQ DIRECTIVE DISCUSSIONADVANCE DIRECTIVE DISCUSSIONCleveland Clinic [facility] Hospitaltart: 51-98-3477EWRIG-19 VACCINE (3 - Booster for Julito series)COVID-19 VACCINE (3 - Booster for Julito series)[facility]: 26-05-6774RMBSHJYVT AGE 65 AND OVER WITH 5YR LOOKBACK (#1)PNEUMOVAX AGE 65 AND OVER WITH 5YR LOOKBACK (#1)[facility]tart: 13-56-2768WIDOOJYI VACCINE (1 of 2)SHINGRIX VACCINE (1 of 2) [facility]tart: 40-13-2397WUAOUCFLX (FIT-DNA)COLOGUARD (FIT-DNA)[facility]tart: 60-91-6212DeitngzinyhPFSXFXFMDHNDuijgtjht ClinicStart: 1991 COLORECTAL CANCER SCREENINGCOLORECTAL CANCER SCREENINGCleveland Clinic [facility] Hospitaltart: 72-66-8491IW COLONOGRAPHYCT COLONOGRAPHYCleMercy Health St. [facility] Hospitaltart: 1990 DIABETES SCREENDIABETES SCREENCleMercy Health St. [facility] Hospitaltart: 05-45-0832JEOXE OCCULT BLOODFECAL OCCULT BLOODCleveland Clinic [facility] Hospitaltart: 21-73-2562AMSWSKMAWIWKC SIGMOIDOSCOPYC[facility] Clinic [facility] Hospitaltart: 57-04-7934IFDOM SCREENLIPID SCREENCleveland Clinic Fairview Hospitaltart: 45-97-1530Yymtb microalbumin profileDTAP,TDAP,TD (1 - Tdap) [facility]tart: 72-53-5922BFAEKBXYJ C SCREENINGHEPATITIS C SCREENING [facility] Hospitaltart: 06-84-3810OOALCHQACWRX: 65+ (1 - PCV)PNEUMOCOCCAL: 65+ (1 - PCV)[facility] Work Phone: Renal function 1999 panel - Serum or PlasmaBarnesville HospitalRenal function 1999 panel - Serum or [facility] Immunizations Immunization DateImmunizationNotesCare LupsbnipAktcjdzs60-62-0711tbdthexagxtf 20-valent conjugate vaccineKathy Lue [facility]10-30-2022SARS-CoV-2 (COVID-19) mRNAMUL.ORD!m11193Hcvka Lue [facility]11-05-2021SARS-CoV-2 (COVID-19) mRNA-1273 vaccineKathy Lue [facility]09-29-2021pneumococcal polysaccharide vaccine, 23 valentKathy Lue [facility]08-04-2021zoster vaccine recombinantKathy Lue [facility]05-19-2021zoster vaccine recombinantKathy Lue [facility]03-24-2021SARS-CoV-2 (COVID-19) Ad26 vaccine, recombinantKathy Lue [facility] 02-321195-10-2282QMVG-CbR-5 (COVID-19) Ad26 vaccine, recombinantPatience Huitron [facility] 05998910-76-4050cxlagauzirdg conjugate vaccine, 13 valent Patience Lue [facility] Payers DatePayer CategoryPayerPolicy [id number] MMO MEDICARE SUPPLEMENT [id number] 2019-Present [phone] [place] [address] [id number] MMO MEDICARE SUPPLEMENT [id number] 2019-Present [phone] [address] [place] [address] [id number] 2012Medicare MEDICARE MEDICARE A AND B [id number] 2011-Present [phone] [address] [place] [address] [id number] 2012MedicareMEDICARE MEDICARE A AND B [id number] 2011-Present [phone] [address] [address] [place] [address] [id number] 1960Medicare [id number] [id number] [id number] [id number]5136-38-3951Wvuhbah5712640 2.16.840.1.595763.3.579.2.62750-86-3511Ivujnwd9801894 2.16840.1.808553.3.579.2.11448-07-8966Nhasrvy3623823 2.840.1.924450.3.579.2.49330-01-6143Olzqfhg6764591 2.16.840.1.162457.3.579.2.37349-81-8357Houpwsn7356147 2.16.840.1.484762.3.579.2.45671-74-8477Ambqxmu8249251 2.840.1.082605.3.579.2.09589-22-4533Qfohkiz3662533 2.16840.1.511717.3.579.2.93023-41-5524Ijepzml47861509 2.16.840.1.316962.3.579.2.17802-30-8437Zkmuzxc34970484 2.16.840.1.029182.3.579.2.91868-87-0411Mlmyzww88089131 2.16840.1.186916.3.579.2.13343-45-3825Pgigqrq67527989 2.16.840.1.759828.3.579.2.727UnknownReverify Rbsisuxum082-07-5954 [id number] Social History DateTypeDetailFacilityStart: 87-29-4943Doqdgyc smoking statusSmoker (finding) [facility] sex Assigned At [facility], [facility]1983[facility] start: 57-93-1576Dcrirlv smoking status NHISSmokes tobacco dailyCincinnati Shriners HospitalHistory of tobacco useCigarette SmokerCleveland Clinic Fairview Hospitaltart: 67-52-2312Grhyaot intakeCurrent drinker of alcohol (finding) [facility]: 13-80-4796Mer Assigned At BirthNot on fileCleveland Clinic Fairview Hospitaltart: 09-15-2021 End: 78-12-3598Minzxrxi to SARS-CoV-2 (event)Not sureCleveland Clinic Fairview Hospitaltart: 83-10-1837Esxsisu use and exposureSmokeless tobacco non-userCincinnati Shriners Hospital Start: 12-04-2022 End: 73-38-8022Pzjozwu smoking statusEx-smoker (finding)[facility]: 72-98-6073Flv [facility]igned At [facility]Tobacco smoking statusNeverExec[facility] of [facility] Hospitaltart: 35-64-8438QgtAnmm (finding)[facility] Goals DatePatient GoalDesired Activity/State Functional Status XihnAqeuuaihulKzddbpYtulboqp46-58-1578Rhasrjungh StatusN/A[facility]10-25-2023Functional StatusN/A[facility]06-14-2023Functional StatusN/A [facility]12-14-2022Functional StatusN/A[facility]06-13-2022 Functional StatusN/A[facility] Jeanette Clinical Notes 09-19-2021 to 03-30-2025 Note Date & CkckIykgYweedxmk37-25-5681 NotePatient: Ignacio Amin Procedure Summary Date: 03/30/25 Room / Location: [facility] 1 EP / [facility] (Cath) Anesthesia Start: 824 Anesthesia Stop: 114 Procedures: Ablation a-fib w/ pvi FARHEEN during EP case Diagnosis: Paroxysmal atrial fibrillation (CMS/HCC) (Paroxysmal atrial fibrillation (CMS/HCC) [I48.0]) Providers: Justin Urrutia MD Responsible Provider: Khushbu Marcano MD Anesthesia Type: general ASA Status: 3 Anesthesia Type: general Vitals Value Taken Time BP 116/77 03/30/25 11:40 Temp 36.5 ???C (97.7 ???F) 03/30/25 11:40 Pulse 68 03/30/25 11:53 Resp 15 03/30/25 11:53 SpO2 96 % 03/30/25 11:53 Vitals shown include unfiled device data. Anesthesia Post Evaluation Patient location during evaluation: PACU Patient participation: complete - patient participated Level of consciousness: awake and alert Pain score: 0 Pain management: adequate Airway patency: patent Cardiovascular status: acceptable Respiratory status: acceptable and room air Hydration status: acceptable Patient is hemodynamically stable and is able to be discharged from PACU per anesthesia protocol. There were no known notable events for this encounter.[facility]10-08-2025 NoteATRIAL FIBRILLATION ABLATION PROCEDURE NOTE DATE OF PROCEDURE: 03/30/2025 PERFORMING PHYSICIAN: Dr. Justin Urrutia HOME APPLIANCE TECHNICIAN: ELSI CONSENT: Patient NAME OF THE PROCEDURE: Pulmonary Vein Isolation and Comprehensive EP study. INDICATIONS FOR PROCEDURE: 1. Persistent atrial fibrillation. PROCEDURES PERFORMED: 1. Sonosite guided venous access as noted below and images stored. 2. Comprehensive EP study and catheter ablation [...] results using intravenous adenosine infusion. 8. Fluroscopy. 9.Pre and Post ablation device check FLUROSCOPY: 16min/ 184mGray EBL: 15cc PROCEDURE NOTE: Pt was brought to EP lab and he was in Afib. Device threshold was checked and ICD was turned OFF. Thereafter, we proceeded to do atrial fibrillation ablation. Both the groins were then prepared and draped. Ultrasound was used to determine the course and patency of the femoral veins on both sides and they were noted to be patent and the image stored in PACS. After infiltration with 1% lidocaine, 3 venous sheaths were placed in the right as noted below and right sided radial arterial access was placed. DCCV was performed to convert to sinus after FARHEEN excluded LA thrombus. RFV: 8Fx1 CS Catheter (EZ Steer) 9Fx1: ICE catheter. 8F -->17F: Faradrive sheath for PFA catheter Heparin bolus was given followed by additional bolus and continuous intravenous drip to target ACT around 350. Initial bolus did not go through as it was not connected and so repeat one was done after 2 ACT showed it to be <200. Intracardiac ultrasound catheter was inserted into the right atrium to examine the right atrial anatomy, atrial septum, pulmonary vein anatomy and to monitor for pericardial effusion and guide transseptal access. ICE revealed that the patient had a moderatly dilated right atrium and left atrium and mild pericardial effusion with no JANI thrombus. At this point I decided to proceed with the transseptal puncture to perform A. fib ablation. Single transseptal access technique was used to cross to the left side. Following the first transeptal access, which was achieved via puncture of the thinner aspect of the septum using Sly needle, Octoray catheter was placed in the left atrium. Pulmonary vein and left atrial anatomic mapping were performed using a 3-D CARTOcomputer-based mapping system. Identification of the pulmonary vein ostia was assisted by the left atrial signals on the ablation catheter. Mapping revealed veins to be isolated and some signals in anterior aspect of left sided veins. ICE catheter and the Octoray catheter placed in the individual pulmonary veins. I then proceeded to exchange the SL1 for 17F Faradrive sheath. Farawave multipolar catheter was advanced over a wire with negative aspiration in periodic fashion to avoid any air bubbles. Esophagus was mapped to be in the middle of LA. Thereafter the catheter was advanced to each of the veins over the wire to maintain coaxial placement of catheter.2 PFA energy pulses were given in each position and then position rotated to 36degrees to get new location and repeat PFA energy were provided. Then this process was repeated in the flower configuration in each veins. Additional energy lesions were given to ensure there was good isolation. Given the persistent nature of atrial fibrillation I proceeded to perform posterior wall isolation. Catheter was placed in fluoroscopy configuration to the posterior wall and ablation performed to cover the entire posterior LA between the pulmonary veins. With applications done entrance block was noted. Exit block verified with pacing from each vein as well as different locations in the posterior wall. I decided to proceed to the right atrium and then verified prior CTI ablation and bidirectional block was confirmed revealing a timing of 184ms. I performed voltage mapping which revealed CTI block also. The ICE catheter was used to reexamine the intracardiac anatomy and this showed small pericardial effusion as seen at baseline. ICE catheter and all catheters were removed. Venous sheaths were pulled, and hemostasis achieved with Perclose sutures and Vascade XL occlusion device. Device thresholds were rechecked and noted to be same as baseline and ICD turned ON. He was transferred to observation bay and then to hospital room for observation. LA baseline (mmHg) 1st and 2nd 24/9 HR 62bpm LA 600ms pacing (mmHg) 23/7 LA 400ms pacing (mmHg) NA AHms 176, 144 HVms 55, 6 (more content not included)...[facility] 03-30-2025 NoteArterial Line: Date/Time: 03/30/2025 8:10 AM An arterial line was placed Procedure performed using surface landmarks.in the pre-op for the following indication(s): continuous blood pressure monitoring and blood sampling needed. A 20 G (size), 5 cm (length), Angiocath (type) catheter was placed, Seldinger technique used , into the Left radial artery, secured by tape and Tegaderm. Events: patient tolerated procedure well with no complications. Medications Administered lidocaine (XYLOCAINE) 1 % SubQ - infiltration 3 mL - 03/30/2025 8:10:00 AM Staffing Performed: resident/AIRWORTHINESS INSPECTOR/CAA Anesthesiologist: Khushbu Marcano MD Resident/AIRWORTHINESS INSPECTOR: Andre Mathews MD Performed by: Andre Mathews MD Authorized by: Khushbu Marcano MDAden[facility]10-08-2025 Note Airway Date/Time: 03/30/2025 8:44 AM Reason: elective Airway not difficult General Information and Staff Patient location during procedure: OR Anesthesiologist: Khushbu Marcano MD Resident/AIRWORTHINESS INSPECTOR/CAA: Andre Mathews MD Performed: resident/AIRWORTHINESS INSPECTOR/CAA Patient Condition Indications for airway management: anesthesia Patient position: sniffing MILS maintained throughout Sedation level: deep Final Airway Details Preoxygenated: yes Final airway type: endotracheal airway Successful airway: ETT Cuffed: yes Successful intubation technique: video laryngoscopy Adjuncts used in placement: intubating stylet and Modified RSI Endotracheal tube insertion site: oral Blade: Fraire Blade size: #4 ETT size (mm): 7.5 Cormack-Lehane Classification: grade I - full view of glottis Placement verified by: chest auscultation and capnometry Measured from: lips ETT to lips (cm): 22 Number of attempts at approach: 1 Number of other approaches attempted: 0UnBarnesville Hospital 03-29-2025 NotePatient: Ignacio Amin Procedure Information Date/Time: 03/30/25 0830 Procedure: Ablation a-fib w/ pvi - AUDIT COMPLETE (tt) Location: [facility] EP / [facility] (Cath) Providers: Justin Urrutia MD Relevant Problems Cardio (+) Coronary artery disease involving [place] coronary artery of [place] heart with angina pectoris (+) Hypertensive disorder (+) Paroxysmal atrial fibrillation (CMS/HCC) GI (+) Chronic duodenal ulcer Pulmonary (+) Centrilobular emphysema (CMS/HCC) (+) Dyspnea on exertion Clinical information reviewed: Tobacco Allergies Meds Problems Med Hx Surg Hx Fam Hx Soc Hx Physical Exam Airway Mallampati: II TM distance: >3 FB Neck ROM: full Cardiovascular Rhythm: irregular Rate: normal no weak pulses (-) weak pulses Dental (+) upper dentures, lower dentures Pulmonary Breath sounds clear to auscultation Neurological Abdominal Anesthesia Plan ASA 3 general (GETA with ETT and standard ASA monitors) The patient is not a current smoker. Patient did not smoke on day of procedure. Education provided regarding risk of obstructive sleep apnea. intravenous induction Postoperative pain plan includes opioids. Trial extubation is planned. Anesthetic plan and risks discussed with patient. Use of blood products discussed with patient who consented to blood products. Plan discussed with attending and resident. Additional Equipment RequestsAdena F[facility] Center09-23-2025 Note [facility] Consult Note Reason for visit: PPM, CAD/CABG, HCM, NSVT s/p ICD 03/15/2025 Patient is here today for H & P for A-fib ablation. Patient states he was under the impression he was having an A-Fib ablation Patient received an email stating he is having a FARHEEN. Patient would like clarification. Patient states he is feeling pretty good. Patient denies chest pain, palpitations/heart racing, leg swelling, Patient complains of CALDERÓN, SOB, some fatigue, abnormal bruising/bleeding/discoloration. Review of Systems Constitutional: Positive for malaise/fatigue. Cardiovascular: Positive for dyspnea on exertion. Respiratory: Positive for shortness of breath. Hematologic/Lymphatic: Positive for bleeding problem. Bruises/bleeds easily. 11/02/24 Pt noted to be in Afib as per [employer] web check. He is more tired in [...] and no evidence of A-fib was seen PMH: Past Medical History: Diagnosis Date Abnormal [...] CONTRAST GREEN CONVERSION PROSTATE SURGERY SH: Social Drivers of Health Tobacco Use: Medium Risk (03/15/2025) Patient History Smoking Tobacco Use: Former Smokeless Tobacco Use: Never Passive Exposure: Not on file Alcohol Use: Not on file Financial Resource Strain: Not on file Food Insecurity: Not on file Transportation Needs: Not on file Physical Activity: Not on file Stress: Not on file Social Connections: Not on file Intimate Partner Violence: Unknown (08/14/2023) [place] Safety & Environment Fear of Current or Ex-Partner: Not on file Emotionally Abused: Not on file Physically Abused: Not on file Sexually Abused: Not on file Physically or Sexually Abused: Not on file Depression: Not at risk (09/24/2022) [facility] PHQ-2 PHQ-2 score: 0 Housing Stability: Not on file Utilities: Not on file Health Literacy: Not on file Allergies: Allergies Allergen Reactions Influenza Virus Vaccine Tv Split 2011-05 (60 Yr +) Other Weight: 88.5kg Visit Vitals BP 135/78 (BP Location: Left arm, Patient Position: Sitting) Pulse 71 Ht 1.753 m (5' 9 ) (more content not included)...[facility]07-08-2025 Evaluation note* Diagnosis Onset Date Resolution Status Admit Date Atrial fibrillation acuteJuly 2024 9:59amChronic kidney disease, stage 3aacuteJuly 2024 9:59amHypertensive nephropathyacuteJuly 2024 9:59amMedicare annual wellness visit, subsequentacuteJuly 2024 9:59amAnemiaacuteJuly 2024 9:50am Chronic kidney disease, stage 3aacuteJuly 2024 9:50amHistory of prostate canceracuteJuly 2024 9:50amHyperparathyroidismacuteJuly 2024 9:50am Hypertensive nephropathyacuteJuly 2024 9:50amHyperuricemiaacuteJuly 2024 9:50amHypokalemiaacuteJuly 2024 9:50amIron deficiencyacuteJuly 2024 9:50amVitamin D deficiencyacuteJuly 2024 9:50am [facility] Work Phone: 1(746) 505-233505-13-2025 NoteUT Electrophysiology Consult Note Reason for visit: PPM, CAD/CABG, HCM, NSVT s/p ICD 5/13/25 Pt noted to be in Afib as per [employer] web check. He is more tired in [...] on file Intimate Partner Violence: Unknown (08/14/2023) [place] Safety [place] Fear of Current or Ex-Partner: Not on file Emotionally Abused: Not on file Physically Abused: Not on file Sexually Abused: Not on file Physically or Sexually Abused: Not on file Depression: Not at risk (09/24/2022) [facility], [facility] PHQ-2 PHQ-2 score: 0 Housing Stability: [...] in the morning (more content not included)...[facility]05-06-2025 Note Cardiovascular Medicine [facility] SUBJECTIVE No chief complaint on file. [...] Hyperlipidemia Hypertensive disorder Coronary artery disease involving [place] coronary artery of [place] heart with angina pectoris History of heart [...] Tv Split 2011-05 (60 Yr +) Other ROS OBJECTIVE Visit [...] and time. Psychiat (more content not included)...[facility] 06-29-2024 Evaluation note* Diagnosis Onset Date Resolution Status Admit Date Anemia acuteJanuary 2024 10:18amChronic kidney disease, stage 3aacuteJanuary 2024 10:18amHistory of prostate canceracuteJanuary 2024 10:18amHypertensive nephropathyacuteJanuary 2024 10:18amHypokalemiaacuteJanuary 2024 10:18amLaceration of thumb with damage to nailacuteMarch 2024 8:52am [facility] Work Phone: 1(802) 793-897011-12-2024 NoteUT Electrophysiology Consult Note Reason for visit: [...] on file Intimate Partner Violence: Unknown (08/14/2023) [place] Safety [place] Fear of Current or [...] morning. 90 ta (more content not included)...[facility]11-12-2024 NotePatient here per cardiac rehab for concerns of bradycardia during his session on 04/05/2024. EKG was done in the office with HR of 69. Patient denies palpitations, chest pain, and bleeding on Eliquis. Review of Systems Cardiovascular: Positive for dyspnea on exertion (intermittent). All other systems reviewed and are negative.[facility] 10-14-2023 Procedure noteBarn[facility]ville [facility]01-31-[facility]24 Hospital Discharge instructions Patient Education 07/23/2023 [...] urethra. Follow these instructions at home: Take mept-mrr-mvfdzjc and prescription medicines only as told by [...] provider. Document Revised: 12/26/2021 Document Reviewed: 12/26/2021 [employer] Patient Education 2022 [employer]. Follow Up Care 04/16/2023 11:00:15 With:Tomy DUNN, RODERICK Cao, URO Address: When: Unknown Comments:PRN [facility] 01-23-2024 Evaluation note* Encounter Date Diagnosis Assessment Notes Treatment Notes Treatment Clinical Notes Jun, Acute kidney injury (ICD-10 - N1 7.9) Patient likely had acute kidney injury from ATN associated with CABG in 2021. Serum creatinine peaked at 2.1 mg/dL. Kidney function recovered without needing hemodialysis. Jun,hronic kidney disease, stage 3a (ICD-10 - N18.31)CKD is likely from renovascular disease as the patient has history of coronary disease and hypertension. Patient also sustained TJ during CABG surgery in 2021. Serum creatinine 1.22 mg deciliter. UAis beign Blood pressure and volume status is well controlled. I will continue same dose of Lasix. Advised the patient to avoid NSAIDs and to keep himself well-hydrated. I will follow-up with the patie miles in 12 months Jun,nemia, unspecified type (ICD-10 - D64.9)Hemoglobin is slightly low at 13.0 g/dl. No need for ROBERTH Jun,History of prostate cancer (ICD-10 - Z85.46)Follows with urology clinic. Jun,Hx of CABG (ICD-10 - Z95.1)Patient has history of coronary disease status post CABG in 2021. Follows with Dr. Andrews in cardiology clinic. Currently on metoprolol. Blood pressures well controlled Jun,Hypokalemia (ICD-10 - E87.6) [facility] Other 11-27-2023 Evaluation note* Encounter Date Diagnosis Assessment Notes Treatment Notes Treatment Clinical Notes Apr, Visit for suture removal (ICD-10 - Z48.02) Area cleaned and sutures removed. Pt tolerated well. [facility] Other 10-25-2023 Hospital Discharge instructions Patient Education [...] urethra. Follow these instructions at home: Take dnoq-sbq-jezeuwt and prescription medicines only as told by [...] provider. Document Revised: 12/26/2021 Document Reviewed: 12/26/2021 [employer] Patient Education 2022 [employer]. Follow Up Care 03/03/2023 10:13:49 With:Tomy DUNN, RODERICK Cao, URO Address: When:Within 3 Month(s) [facility] 09-11-2023 Note [id number]:127[facility] 03-03-2023 Hospital Discharge instructions Patient Education 03/03/2023 10:03:09 Tomy - Urolift Post-Op Instructions (CUSTOM) [facility] [place], [place] Post-Operative Instructions for UroLift After your [...] Up Care 02/12/2023 10:35:26 With:Patience Huitron Address: [address] [place] [phone] Business (1) When: Unknown Comments:Office to schedule follow up in 1 month with [facility]08-08-2023 Evaluation note* Encounter Date Diagnosis Assessment Notes Treatment Notes Treatment Clinical Notes Jan, Acute kidney injury (ICD-10 - N1 7.9) Patient likely had acute kidney injury from ATN associated with CABG last year 2021. Serum creatinine peaked at 2.1 mg/dL. Kidney function recovered without needing hemodialysis. Jan,hronic kidney disease, stage 3a (ICD-10 - N18.31)CKD is likely from renovascular disease as the patient has history of coronary disease and hypertension. Serum creatinine 1.24 mg deciliter. UA is beign Blood pressure and volume status is well controlled. I will continue same dose of Lasix. Advised the patient to avoid NSAIDs and to keep himself well-hydrated. I will follow-up with the patient in 6 months Jan,nemia, unspecified type (ICD-10 - D64.9)Hemoglobin is WNL. Iron, folate and VB12 are all WNL I Jan,History of prostate cancer (ICD-10 - Z85.46)Follows with urology clinic. Jan,Hx of CABG (ICD-10 - Z95.1)Patient has history of coronary disease status post CABG in 2021. Follows with Dr. Andrews in cardiology clinic. Currently on metoprolol. Blood pressures well controlled [facility] Other [id number] Procedure noteBarnesville Hospital06-14-2023 Hospital Discharge instructions Patient Education 12/04/2022 [...] urethra. Follow these instructions at home: Take leet-unn-yvuigjc and prescription medicines only as told by [...] provider. Document Revised: 12/26/2021 Document Reviewed: 12/26/2021 [employer] Patient Education 2022 [employer]. Follow Up Care 06/05/2022 11:04:10 With:Tomy DUNN, Patience Salinas, URFeli, URO Address: When: Unknown [facility] Nitin 04-04-2023 NoteHNO ID: [id number] Author: Ema Doyle MD Service: ? Author [...] well as active information included in the EMR.[facility] 09-24-2022 History of Present illness Narrative* Ema [...] included in the EMR. documented in this encounterC[facility] Nurse Note* Nurys Saleem RN - 09/24/2022 1:06 PM EDT AUA 3 Nurys Saleem RN documented in this encounterCincinnati Shriners Hospital04-03-2023 Evaluation note* Encounter Date Diagnosis Assessment Notes Treatment Notes Treatment Clinical Notes Sep, Screening for colon cancer (ICD- 10 - Z12.11) Pt states he is due for screening. Sep,hronic kidney disease, stage 3a (ICD-10 - N18.31)Reviewed his question about the dose of iron supplement with Dr. Jensen Sep,Functional diarrhea (ICD-10 - K59.1)Pt states it is completely resolved. He has stopped lomotil and is doing well. Noted occasional nausea and rare diarrhea on his recent trip. [facility] Other 03-06-2023 Evaluation note* Encounter Date Diagnosis Assessment Notes Treatment Notes Treatment Clinical Notes Aug, Diarrhea, unspecified type (ICD- 10 - R19.7) [facility] Other 02-27-2023 Evaluation note* Encounter Date Diagnosis Assessment Notes Treatment Notes Treatment Clinical Notes Jul, Diarrhea, unspecified type (ICD- 10 - R19.7) No known sick contacts. Traveling on a cruise soon. Agrees to try rx med, call if no improvement. Discussed potential stool culture or GI referral. [facility] Other 02-21-2023 Evaluation note* Encounter Date Diagnosis Assessment Notes Treatment Notes Treatment Clinical Notes Jul, Acute kidney injury (ICD-10 - N1 7.9) Patient likely had acute kidney injury from ATN associated with CABG. Serum creatinine peaked at 2.1 mg/dL. Kidney function recovered without needing hemodialysis Jul,hronic kidney disease, stage 3a (ICD-10 - N18.31)CKD is likely from renovascular disease as the patient has history of coronary disease and hypertension. Serum creatinine 1.25 mg deciliter. No UA available. Blood pressure and volume status is well controlled. I will continue same dose of Lasix. Advised the patient to avoid NSAIDs and to keep himself well-hydrated. I will follow-up with the patient in 6 months Jul,nemia, unspecified type (ICD-10 - D64.9)Hemoglobin 11.8 g/dL. I asked the patient to take meng-dqw-wqxxgrs iron supplement once daily. I will check vitamin B12, folate and iron storage study next visit. No need for ROBERTH Jul,History of prostate cancer (ICD-10 - Z85.46)Follows with neurology clinic. Patient reported episode of hematuria last week. I asked patient to c ontact his urologist as soon as possible Jul,Hx of CABG (ICD-10 - Z95.1)Patient has history of coronary disease status post CABG in 2021. Follows with Dr. Andrews in cardiology clinic. Currently on metoprolol. Blood pressures well controlled [facility] Other 12-14-2022 Hospital Discharge instructions Patient Education [...] urethra. Follow these instructions at home: Take qmqu-rmg-laotokz and prescription medicines only as told by [...] 06/09/2006 Document Revised: 05/04/2019 Document Reviewed: 07/14/2017 [employer] Patient Education 2019 [employer]. 06/05/2022 10:50:10 Benign Prostatic Hyperplasia Benign Prostatic [...] urethra. Follow these instructions at home: Take cvsy-vau-pufhqkb and prescription medicines only as told by [...] 06/09/2006 Document Revised: 05/04/2019 Document Reviewed: 07/14/2017 [employer] Patient Education 2020 [employer]. Follow Up Care 12/03/2021 14:03:57 With:Tomy DUNN, RODERICK Cao, URO Address: When:6 months Comments:no labs [facility] Evaluation note* Encounter Date Diagnosis Assessment Notes Treatment Notes Treatment Clinical Notes Apr, Acute kidney injury (ICD-10 - N1 7.9) Patient likely had acute kidney injury from [...] at home and to avoid all NSAIDs follow-upwith the patient in 3 months. Victiv Other 10-07-2022 NoteMR#: [id number] I [facility] Pt. Name: Ignacio Amin Admitted: [...] who follows with Dr. Saeed in the [facility]. Over the past few months, [...] performed at bedside to assess function. Discontinued Goodman-Sundar catheter. Oxygen requirements were beginning to be [...] DISCHARGE: Good. Stable. DISCHARGE DISPOSITION: [facility]. DISCHARGE MEDICATIONS: 1. Amiodarone 200 mg tablet [...] the ca (more content not included)...[facility]06-13-2022 Hospital Discharge instructions Patient Education [...] including vitamins, herbs, eye drops, creams, and qben-xbo-exdfdzc medicines. Any problems you or family members [...] provider tells you to take them. Taking bwou-xsu-jftkglc medicines, vitamins, herbs, and supplements. Eating and [...] 06/09/2006 Document Revised: 09/29/2019 Document Reviewed: 03/10/2019 [employer] Patient Education 2019 [employer]. Follow Up Care 10/01/2021 09:30:13 With:Tomy DUNN, Patience Salinas URL, [facility] Address: [address], [place] [address] [phone] When:Within 6 Month(s) Comments:with IPSS [facility] 04-11-2022 Hospital Discharge instructions Patient Education 10/01/2021 [...] 09/19/2021 10:38:31 With:Patience Huitron Address: [address] [phone] Business (1) When: Unknown Comments:Call for followup appointment in 2-3 months With:Patience Huitron Address:Unknown When: Unknown [facility]04-05-2022 History of Present illness Narrative* G Abhijeet Doyle MD - 09/25/2021 1:13 PM EDT Images from the original note were not included. Radiation Oncology - Follow Up Note PATIENT NAME: Ignacio mAin PATIENT DIAGNOSIS: Prostate cancer, with prior brachytherapy [...] included in the EMR. [facility]* Nurys Saleem RN - 09/25/2021 1:10 PM EDT AUA 12 Nurys Saleem RN documented in [facility] Hospital Discharge instructions Patient Education 09/19/2021 [...] who: Are older than age 65. Are -Bhut[place]. Are obese. Have a family history of [...] cells. Follow these instructions at home: Take cnbk-iyz-qugocxp and prescription medicines only as told by [...] 06/09/2006 Document Revised: 05/22/2018 Document Reviewed: 02/17/2017 [employer] Patient Education 2020 [employer]. Follow Up Care 03/14/2021 14:47:29 With:Tomy DUNN, RODERICK Cao, [facility] Address: [address] [place] [address]- [phone] Business (1) When: Unknown [facility] evaluation + Plan note Future Appointments Appointment Date:09/24/2021 09:15:00 AM Scheduled Provider: Location:[facility] Appointment Type:Urology CALL PAT Appointment Date:10/01/2021 09:30:00 AM Scheduled Provider: Location:[facility] Appointment Type:Urology FT [facility] evaluation + Plan note Future Appointments Appointment Date:09/24/2021 09:15:00 AM Scheduled Provider: Location:[facility] Appointment Type:Urology CALL PAT FT Appointment Date:10/01/2021 09:30:00 AM Scheduled Provider: Location:[facility] Appointment Type:Urology FT Diagnostic Tests Pending * Urine [facility]ments Appointment Date:12/03/2021 01:00:00 PM Scheduled Provider:Patience Huitron MD Location:[facility] Future Appointments Appointment Date:06/05/2022 09:15:00 AM Scheduled Provider:Patience Huitron MD Location:[facility] Appointment Type:URO Office Visit [facility] Evaluation + Plan note Future Appointments Appointment Date:12/04/2022 09:15:00 AM Scheduled Provider:Patience Huitron MD Location:[facility] Appointment Type:URO Office Visit [facility] evaluation + Plan note Future Appointments Appointment Date:04/16/2023 09:45:00 AM Scheduled Provider:Patience Huitron MD Location:[facility] Future Appointments Appointment Date:07/23/2023 09:45:00 AM Scheduled Provider:Patience Huitron MD Location:[facility] Appointment Type:URO Office Visit [facility] evaluation note* Diagnosis History of prostate cancer- Primary Personal history of malignant neoplasm of prostate documented in this encounter [facility] noteNo [facility] Other Evaluation note* Diagnosis History of prostate cancer- Primary Personal history of malignant neoplasm of prostate [facility] assessment information [facility] Work Phone: Evaluation note* Diagnosis Onset Date Resolution Status Admit Date Atrial fibrillation acuteJuly 2024 9:59amChronic kidney disease, stage 3aacuteJuly 2024 9:59amHypertensive nephropathyacuteJuly 2024 9:59amMedicare annual wellness visit, subsequentacuteJuly 2024 9:59am [facility] Work Phone: History and physical note Author Yung Yang [facility] December 13, 2022 10:31amNote Date/TimeJune 2022 10:31[place] [address] Gastroenterology H&P Signed Patient: Ignacio Amin MR#: [id number] : 1945 Acct:[id number] Age/Sex: 77 / M Adm Date: 3 Loc: Room: Type: [facility] Attending Dr: Yung Yang MD Copies to: MD Elliot Mary MD~ Date of Service: 12/13/2022 HISTORY & PHYSICAL: Patient's history with special attention to the cardiovascular, pulmonary systems and the current problem was reviewed with the patient immediately prior to the procedure. Present medications and doses reviewed in the EMR. Allergies and pertinent laboratory tests were also re viewedat this time in the EMR. The physical [...] signed by Yung Yang MD> 12/13/22 1031 [facility] Work Phone: History and physical note Author Yung Yang [facility] October 14, 2023 8:20amNote Date/TimeApril 2023 8:20[place] [address] Gastroenterology H&P Signed Patient: Ignacio Amin MR#: [id number] : 1945 Acct:[id number] Age/Sex: 78 / M Adm Date: 4 Loc: Room: Type: [facility] Attending Dr: Yung Yang MD Copies to: MD Elliot Mary MD~ Date of Service: 10/14/2023 HISTORY & PHYSICAL: Patient's history with special attention to the cardiovascular, pulmonary systems and the current problem was reviewed with the patient immediately prior to the procedure. Present medications and doses reviewed in the EMR. Allergies and pertinent laboratory tests were also re viewedat this time in the EMR. The physical [...] By: <Electronically signed by Yung Yang MD> 10/14/23819 [facility] Work Phone: History general Narrative - Reported* Type Description Date Medical History IRON DEFICIENCY ANEMIA SECONDARY TO BLOOD LOSS Medical HistoryUNSPECIFIED ATRIAL FIBRILLATIONMedical HistoryACUTE KIDNEY FAILUREMedical HistoryTHROMBOCYTOPENIAMedical HistoryHYPERLIPIDEMIAMedical HistoryVITAMIN DEFICIENCYMedical HistoryGERDMedical HistoryNONSPECIFIC ABNORMAL FINDING OF LUNG FIELDMedical HistoryRETENTION OF URINEMedical HistoryNICOTINE ABUSEMedical HistoryKIDNEY STONESMedical HistoryPROSTATE CANCERSurgical History1 HEART [id number] HistoryDefibRILLATOR placementSurgical HistoryHEART CATH03/2016Surgical HistoryTEETHSurgical HistoryBILATERAL HAND SURGERYSurgical HistoryEGD TUMOR REMOVAL07/2010Surgical HistorySEED IMPLANT IN PROSTATESurgical HistoryCARDIOVERSION03/03/22Hospitalization HistorySEE ABOVE Victiv Other Hisnfew general Narrative - Reported* Type Description Date Medical History IRON DEFICIENCY ANEMIA SECONDARY TO BLOOD LOSS Medical HistoryUNSPECIFIED ATRIAL FIBRILLATIONMedical HistoryACUTE KIDNEY FAILUREMedical HistoryTHROMBOCYTOPENIAMedical HistoryHYPERLIPIDEMIAMedical HistoryVITAMIN DEFICIENCYMedical HistoryGERDMedical HistoryNONSPECIFIC ABNORMAL FINDING OF LUNG FIELDMedical HistoryRETENTION OF URINEMedical HistoryNICOTINE ABUSEMedical HistoryKIDNEY STONESMedical HistoryPROSTATE CANCERSurgical History1 HEART [id number] HistoryDefibRILLATOR placementSurgical HistoryHEART CATH03/2016Surgical HistoryTEETHSurgical HistoryBILATERAL HAND SURGERYSurgical HistoryEGD TUMOR REMOVAL07/2010Surgical HistorySEED IMPLANT IN PROSTATESurgical HistoryCARDIOVERSION03/03/22Surgical HistoryTriple Bi pass surgery01/2022 Hospitalization HistorySEE ABOVE Victiv Other History general Narrative - Reported* Type Description Date Medical History IRON DEFICIENCY ANEMIA SECONDARY TO BLOOD LOSS Medical HistoryUNSPECIFIED ATRIAL FIBRILLATIONMedical HistoryACUTE KIDNEY FAILUREMedical HistoryTHROMBOCYTOPENIAMedical HistoryHYPERLIPIDEMIAMedical HistoryVITAMIN DEFICIENCYMedical HistoryGERDMedical HistoryNONSPECIFIC ABNORMAL FINDING OF LUNG FIELDMedical HistoryRETENTION OF URINEMedical HistoryNICOTINE ABUSEMedical HistoryKIDNEY STONESMedical HistoryPROSTATE CANCERSurgical History1 HEART [id number] HistoryDefibRILLATOR placementSurgical HistoryHEART CATH03/2016Surgical HistoryTEETHSurgical HistoryBILATERAL HAND SURGERYSurgical HistoryEGD TUMOR REMOVAL07/2010Surgical HistorySEED IMPLANT IN PROSTATESurgical HistoryCARDIOVERSION03/03/22Surgical HistoryTriple Bi pass surgeryurgical HistorySUTURES IN LEFT [id number] HistorySEE ABOVE Victiv Other Hospital course Narrative No data available for this section [facility] Discharge instructions No data available for this section [facility] Additional Instructions DISCHARGE INSTRUCTIONS [...] NOT operate machinery such as power tools, [employer]ter[employer]n mowers, snow blowers, sewing machines, etc. for [...] months -Follow up with PCP. -Office number [phone]. [facility] Work Phone: Progress note No data available for this section [facility] Reason for referral (narrative)No reason for referral information availableClinton Memorial Hospital Work Phone: Summary Purpose Family History No Family History Records Found Relationship Condition Age at Onset Recorded Date/T kathy sister Malignant neoplasm of colon Unknown fatherCardiovascular diseaseUnknownbrotherMyocardial infarctionUnknown Relationship Condition Age at Onset Recorded Date/T kathy sister Malignant neoplasm of colon Unknown fatherCardiovascular diseaseUnknownbrotherMyocardial infarctionUnknownbrother Heart diseaseUnknownDeceasedUnknownfatherDeceasedUnknownfamily memberDeceased UnknownNot SpecifiedDeceasedUnknownCerebrovascular accident (CVA)Unknownsister Malignant neoplasmUnknown Relationship Condition Age at Onset Recorded Date/T kathy sister Malignant neoplasm of colon Unknown fatherCardiovascular diseaseUnknownbrotherMyocardial infarctionUnknownbrother Heart diseaseUnknownDeceasedUnknownfatherDeceasedUnknownfamily memberDeceased UnknownmotherDeceasedUnknownCerebrovascular accident (CVA)UnknownsisterMalignant neoplasmUnknown Advance Directives No Advanced Directives Records Found Advance Directive Response Recorded Date/ Time Advance Directives No December 11 10:12am Reason for Referral Reason *Waiting for appt Former Aroldo pt - due for screening Diagnosis 1 Screening for colon cancer (Z12.11) Referral Organization [facility] Referring Provider First Name Elliot Referring Provider Last Name Fran Referring Provider Specialty Family Medi cine Referred Organization [facility] Gastroenterolo gy Referred Provider Yung Yang Referred Address [address],[phone] Referred Provider Specialty Gastroentero logy Referral Priority [...] or prosecute any alcohol or drug abuse patient.[facility] HospitalIn the event this information is protected by the Federal Confidentiality of Alcohol and Drug Abuse Patient Records regulations: The Federal rules restrict any use of the information to criminally investigate or prosecute any alcohol or drug abuse patient.[facility] Reason for Visit (unrecogniz ed section and content) ReasonCommentsProstate Cancer Care Teams (unrecognized sec tion and content) Team Status: Active Member Role Status Dates Elliot Rosales MD Primary Care Provider Active Team Status: Inactive Member Role Status Dates Elliot Rosales MD Primary Care Provider Active Start: December 28, 2024 End: December 28, 2024Carisa Wilson ProviderActiveStart: December 28, 2024 End: December 28, 2024 Team Status: Active Member Role Status Dates Elliot Rosales MD Primary Care Provide r, Attending Provider Active Start: September 26, 2023 Team Status: Inactive Member Role Status Dates Elliot Rosales MD Primary Care Provider Active Start: October 14, 2023 End: October 14, 2023Carisa Mary ProviderActiveStart: October 14, 2023 End: October 14, 2023 Team Status: Active Member Role Status Dates Elliot Rosales MD Primary Care Provider Active Start: October 14, 2023 Carisa Mary Provider, Other ProviderActiveStart: October 14, 2023 Team MemberRelationshipSpecialtyStart DateEnd Date Elliot Rosales MD [address] [place] [address] [facility]Team MemberRelationshipSpecialtyStart DateEnd Date Elliot Rosales MD [address] [place] [address] PCP [facility]10/02/16 Team Status: Inactive Member Role Status Dates Yung Yang MD Attending Provider Active Angela WilsonUniversity of Missouri [facility] ProviderActive Team Status: Active Member Role Status Dates Elliot Rosales MD Primary Care Provider Active Start: June 21, 2024 Carisa Hobson ProviderActiveStart: June 21, 2024 Team Status: Inactive Member Role Status Dates Elliot Rosales MD Primary Care Provider Active Start: June 29, 2024 End: June 29Gina Kilgoreending ProviderActiveStart: June 29, 2024 End: June 29, 2024 Team Status: Active Member Role Status Dates Elliot Rosales MD Primary Care Provider Active Start: August 30, 2024 Opal Nagel CMAAttduglas ProviderActiveStart: August 30, 2024 Team Status: Inactive Member Role Status Dates Elliot Rosales MD Primary Care Provide r, Attending Provider Active Start: September 01, 2024 End: September 01, 2024 Team Status: Active Member Role Status Dates Elliot Rosales MD Primary Care Provider Active Start: January 03, 2025 Jenifer Jensen Carisa ProviderActiveStart: January 03, 2025 Team Status: Inactive Member Role Status Dates Elliot Rosales MD Primary Care Provider Active Start: January 11, 2025 End: January 11melissastacia Jensen Carisa ProviderActiveStart: January 11, 2025 End: January 11, 2025 (unrecognized sect ion and content) No Status Records FoundNo Status Records FoundNo Status Records FoundNo Status Records FoundNo Status Records FoundNo Status Records Found INFORMATION SOURCE (unrecogn ized section and content) DATE CREATED AUTHOR 04/01/2022 [facility] DATE CREATED AUTHOR AUTHOR'S ORGANIZ ATION 09/27/2022 [facility] DATE CREATED AUTHOR AUTHOR'S ORGANIZ ATION 10/05/2022 [facility] DATE CREATED AUTHOR AUTHOR'S ORGANIZ ATION 07/30/2023 [facility] DATE CREATED AUTHOR AUTHOR'S ORGANIZ ATION 10/15/2023 [facility] DATE CREATED AUTHOR AUTHOR'S ORGANIZ ATION 04/29/2025 [facility] Goals (unrecognized section and content) Goals may [...] BE BASED ON THE PRIMARY CLINICAL RECORDS. [facility]. provides no warranty or guarantee of the accuracy or completeness of information in this document.
[2025-06-20 10:50] LABS: Glucose Urine UA NEGATIVE (NEGATIVE)
[2025-06-20 10:50] LABS: Hematocrit 44.6 % (42.0-54.0); Hemoglobin 14.8 g/dL (14.0-18.0); Mean Corpuscular HGB Conc 33.2 g/dL (29.9-35.2); Mean Corpuscular Hemoglobin 31.1 pg (25.9-34.0); Mean Corpuscular Volume 93.7 fL (80.0-94.0); Platelet Count 141 10^3/uL (150-450); Red Blood Count 4.76 10^6/uL (4.70-6.10); White Blood Count 5.1 10^3/uL (4.0-11.0)
[2025-06-20 11:40] LABS: Protein Creatinine Ratio Urine 0.15; Total Protein Urine Random 9.4 mg/dL (<=11.9)
[2025-06-20 12:19] LABS: Iron 92.0 ug/dL (65.0-175.0); Percent Iron Saturation 33.3 %; Total Iron Binding Capacity 276.0 ug/dL (250.0-450.0)
[2025-06-20 13:45] LABS: Albumin Level 3.7 g/dL (3.4-5.0); Anion Gap 12.8; Blood Urea Nitrogen 29.0 mg/dL (7.0-18.0); Calcium 9.5 mg/dL (8.5-10.1); Carbon Dioxide 30.0 mmol/L (21.0-32.0); Chloride 106 mmol/L (98-107); Estimated GFR (African America >60 (>=60 mL/min/1.73m^2); Estimated GFR (Non-African Ame 55 (>=60 mL/min/1.73m^2); Glucose 113 mg/dL (74-106); Magnesium 2.0 mg/dL (1.8-2.4); Potassium 3.8 mmol/L (3.5-5.1); Sodium 145 mmol/L (136-145); Uric Acid 6.7 mg/dL (3.5-7.2)
[2025-06-20 13:58] LABS: Ferritin 325.0 ng/mL (26.0-388.0)
== END 2025-06-20 10:18 | disposition home or self-care (01) ==
LOC: LAB 10:19
PROVIDERS: PCP Family Medicine; Visit Provider Internal Medicine Nephrology
DX: E79.0 Hyperuricemia without signs of inflammatory arthritis and tophaceous disease (principal); E61.1 Iron deficiency; E21.3 Hyperparathyroidism, unspecified; E55.9 Vitamin D deficiency, unspecified; E87.6 Hypokalemia; Z85.46 Personal history of malignant neoplasm of prostate
CPT/HCPCS: 36415; 80069; 81003; 82306; 82570; 82728; 83540; 83550; 83735; 83970; 84156; 84550; 85027